=== PATIENT | male | born 1955 | race Caucasian/White ===

== ENCOUNTER 2020-07-11 00:20 | Emergency (ER) | payer MEDICARE, SELFPAY ==
--- NOTE | 2020-07-11 00:23 | PC.NURSE ---
65 year old male, smokes 2 bags of heroin. stopped interacting with . nodding off. gave 2 doses of narcan (8mg Total) IN. VSS.
[2020-07-11 00:25] VITALS: BP 115/60; PULSE 75; RESP 18; TEMP 36.4; O2SAT 98; BMI 22.9
--- NOTE | 2020-07-11 00:36 | PC.NURSE ---
PT GAVE PERMISSION TO SPEAK TO . PT RECENTLY USED HEROIN. HX CVA, HIT HEAD EARLIER IN DAY. PINS FOR PUPILS, PATIENT WOULDNOT RESPOND TO . MEDICAL HISTORY: CVAS/TIA 2 YEARS AGO. MANY STROKES IN PAST, BUT HE ALWAYS SNAP OUT OF IT. CONCERED THAT HE HIT HIS HEAD EARLIER. NO OTHER MEDICAL HISTORY. SURGERY: QUADRUPLE BYPASS. PER ; PLEASE DON'T LET HIM KNOW ABOUT THE HEROIN, PLEASE TELL HIM I SAID PAIN PILLS.
--- NOTE | 2020-07-11 01:48 | ED.OVERDOSE ---
HPI - Overdose General Chief Complaint: ETOH/Substance Use Stated Complaint: od Time Seen by Provider: 07/11/20 01:48 Source: patient Mode of arrival: EMS History of Present Illness HPI Narrative: This is a 65-year-old male who is brought in by EMS with overdoses and received 8 mg of Narcan intranasally. Patient states that he made a ?stupid stupid mistake?. He states that he snorted 2 bags of heroin and said that he must have gotten some bad stuff. Otherwise, he denies any shortness of breath, chest pain/palpitations, GI symptoms, or symptoms. Patient denies any intent to kill himself. Related Data Allergies Allergy/AdvReac Type Severity Reaction Status Date / Time No Known Allergies Allergy Unverified 01/27/20 14:51 Review of Systems Review of Systems: Pertinent positives and negatives as stated in HPI and 10 point review systems is otherwise negative. PMFSH Past Medical History Source: nursing notes reviewed Medical History Heroin use Social History Social History Alcohol intake: never Smoking Status: Current some day smoker Smoked in Last 30 Days: Yes Use of substances other than those prescribed or required for medical reasons: Yes Substance Use Type: Heroin Substance Use Frequency: Chronic Longstanding Last Used Substance: Just Prior to Admission Any prior treatment program specific to substance use: No Advance Directives: No Physical Exam Vital Signs: Vital Signs: Last Vital Signs Temp 97.5 F 07/11/20 00:25 Pulse 69 07/11/20 02:47 Resp 16 07/11/20 02:47 BP 102/61 07/11/20 02:47 Pulse Ox 95 07/11/20 02:47 Body Mass Index 22.9 VITAL SIGNS: Reviewed. GENERAL: Well developed, well nourished, in no acute distress. HEAD: Normocephalic/atraumatic EYES: PERRLA, EOMI NOSE: Nares patent bilateral OROPHARYNX: no oral lesions noted, posterior pharynx clear NECK: Supple, no adenopathy LUNGS: Normal breath sounds. SpO2<95> CARDIOVASCULAR: Regular rate and rhythm without noted murmurs ABDOMEN: Soft, non-tender, non-distended with bowel sounds.d NEUROLOGIC: Alert and oriented x 4. Strength and sensation to light touch were grossly intact x 4. Course Course Course Narrative: This is a 65-year-old male with history and clinical presentation consistent with accidental overdose. Patient was observed for 2 hours without acute changes and remained alert and oriented throughout. He was discharged in stable condition with a safe ride provided by his . Discharge Plan Discharge Clinical Impression: Overdose Qualifiers: Encounter type: initial encounter Injury intent: accidental or unintentional Qualified Code(s): T50.901A - Poisoning by unspecified drugs, medicaments and biological substances, accidental (unintentional), initial encounter Patient Disposition: Home, Self-Care Instructions: Naloxone (Into the nose) Additional Instructions: Please return to this emergency department if you experience any acute worsening of your symptoms. Referrals: Tony Rhodes MD [Primary Care Provider] - 2 days (Accidental overdose on heroin) Interventions: ED Discharge Assessment Last Done: 07/11/20 02:57 Discharge Date/Time: 07/11/20 02:58
[2020-07-11 02:00] VITALS: BP 105/71; PULSE 70; RESP 18; O2SAT 94
[2020-07-11 02:47] VITALS: BP 102/61; PULSE 69; RESP 16; O2SAT 95
[2020-07-11] MEDS: Naloxone HCl Nasal TAKE HOME 4 MG SPRAY NOSTRILALT (02:51)
== END 2020-07-11 02:58 | disposition home or self-care (01) ==
PROVIDERS: Emergency Provider Student in an Organized Health Care Education/Training Program; PCP Internal Medicine
DX: T40.1X1A Poisoning by heroin, accidental (unintentional), initial encounter (principal); Y92.9 Unspecified place or not applicable; F17.200 Nicotine dependence, unspecified, uncomplicated; Z86.73 Personal history of transient ischemic attack (TIA), and cerebral infarction without residual deficits
CPT/HCPCS: 99283; 99284

== ENCOUNTER 2020-11-10 17:51 | Emergency (ER) | payer MEDICARE, SELFPAY ==
[2020-11-10 18:00] VITALS: BP 114/63; PULSE 66; RESP 18; TEMP 36.6; O2SAT 96; BMI 25.0
--- NOTE | 2020-11-10 18:44 | ECG_ITS ---
Test Reason : WEAKNESS Blood Pressure : / mmHG Vent. Rate : 064 BPM Atrial Rate : 064 BPM P-R Int : 128 ms QRS Dur : 090 ms QT Int : 466 ms P-R-T Axes : 075 085 086 degrees QTc Int : 480 ms Normal sinus rhythm Possible Left atrial enlargement Anteroseptal infarct (cited on or before 13-JUN-2019) Anterior T wave inversion Abnormal ECG When compared with ECG of 13-JUN-2019 03:56, T wave inversion more evident in Anterior leads Referred By: Luther Kingston Electronically Signed By:LALIT GILLIAM MD
--- NOTE | 2020-11-10 19:21 | ED_ITS ---
HPI - Dizziness General Chief Complaint: Dizziness Stated Complaint: dizziness Time Seen by Provider: 11/10/20 18:43 Source: patient Mode of arrival: EMS Limitations: no limitations History of Present Illness HPI Narrative: patient's history of coronary artery disease status post cardiac bypass surgery 5 years ago , hypertension been feeling dizzy lightheaded for last few days went to fire station today and they checked the blood pressure was in 80s received 700 cc normal saline on arrival blood pressure was 114/63 patient denies any chest pain no shortness of breath just feel weak no palpitation no black stool no vomiting no diarrhea Related Data Allergies Allergy/AdvReac Type Severity Reaction Status Date / Time No Known Allergies Allergy Unverified 01/27/20 14:51 Review of Systems Review of Systems: Constitutional : No Weight loss, No Fever, No Chills ENT/Mouth : No sore throat, No Rhinorrhea Eyes: No Eye Pain, No Swelling Cardiovascular : No Chest Pain, no palpitations Respiratory : No Cough, No Sputum, no shortness of breath Gastrointestinal : no Nausea, No Vomiting, No Diarrhea, No abdominal Pain, no black stools Genitourinary : No Dysuria, No Urinary Frequency Musculoskeletal : No joint pain, No Myalgias, No Joint Swelling Skin : No Skin Lesions, No rash Neuro : No Weakness, No Numbness, ++ Dizziness, No Headache Psych : No Anxiety/Panic, No Depression Heme/Lymph: No Bruising, No Lymphadenopathy Endocrine : No Polyuria, No Polydipsia All other systems reviewed and are negative [facility] Past Medical History Medical History Heroin use Social History Social History Alcohol intake: never Smoked in Last 30 Days: No Use of substances other than those prescribed or required for medical reasons: No Substance Use Type: Heroin Advance Directives: No Advance Directives Information Provided: No Physical Exam Vital Signs: Vital Signs: Last Vital Signs Temp 97.8 F 11/10/20 18:00 Pulse 73 11/10/20 19:32 Resp 18 11/10/20 18:00 BP 132/58 L 11/10/20 19:32 Pulse Ox 96 11/10/20 18:00 Body Mass Index 25.0 Appearance: Alert. Oriented X3. No acute distress. Eyes: PERRLA, No Nystagmus ENT: Pharynx normal. Oral Mucosa moist Neck: Normal inspection. Neck supple. CVS: Normal heart rate and rhythm. Pulses normal. Respiratory: No respiratory distress. Equal air entry bilateral, no wheez ing/rales/rhonchi Abdomen: Soft and nontender. Bowel sounds are present, no mass palpable, no CVA tenderness Skin: Skin warm and dry. Normal skin color. Normal skin turgor. Extremities: No lower extremity edema. No calf tenderness Neuro: Oriented X 3. No motor deficit. No sensory deficit.No cerebellar signs , cranial nerves II-XII intact MDM - Dizziness MDM Narrative Medical decision making narrative: patient with low blood pressures prior to arrival normal now no orthostatic hypertension patient refused to stay here for further lab workup , EKG showed T inversion in anterior leads which is new as compared to EKG in 07/01 patient denied any chest pain, signed against medical advise family is at bedside ECG Data Attestation: I personally reviewed and interpreted this ECG as follows: Interpretation: normal sinus rhythm heart rate 64 beats per minute deep T inversion V1 to V3 V4 V5 suggestive of anterior septal is infarct no acute ST elevation Discharge Plan Discharge Clinical Impression: Dizziness Hypotension Qualifiers: Hypotension type: other hypotension type Qualified Code(s): I95.89 - Other hypotension Patient Disposition: Left Against Medical Advice Instructions: Dizziness (ED) Additional Instructions: see your PCP or come back to the ED for further evaluation Interventions: ED Discharge Assessment Last Done: 11/10/20 20:31 Discharge Date/Time: 11/10/20 20:36
[2020-11-10 19:24] VITALS: BP 124/64; PULSE 68
--- NOTE | 2020-11-10 19:30 | PC.NURSE ---
ASSUMED CARE OF PT. PT RESTING IN STRETCHER COMPLAINING ABOUT WAITING. PT DENIES DIZZY, CHEST PAIN, SOB, LEFT ARM NUMBNESS/TINGLING OR ANY OTHER COMPLAINTS OR PAIN. PT ALERT AND SPEAKING IN FULL COMPLETE SENTENCES AND YELLING AT STAFF W/O DIFFICULTY. PT UP AND PACING AROUND ROOM WITH STEADY EVEN GAIT AND ON PHONE SPEAKING LOUDLY WITH . DR MONIQUE AWARE AND IN ROOM TO TELL PT RISKS OF LEAVING AMA. PT VERBALLY U/S WARNINGS OF LEAVING AMA AND DECIDED TO STILL LEAVE.
[2020-11-10 19:31] VITALS: BP 140/65; PULSE 66
[2020-11-10 19:32] VITALS: BP 132/58; PULSE 73
--- NOTE | 2020-11-10 19:39 | PC.NURSE ---
pt requesting to leave and calling for a ride home. Ortho's obtained to . pt threatening to leave. Dr. Thee hood.
--- NOTE | 2020-11-10 19:49 | PC.NURSE ---
PT WANTING TO SIGN OUT AMA. DR. MONIQUE AWARE.
== END 2020-11-10 20:36 | disposition left against medical advice (07) ==
PROVIDERS: Emergency Provider Internal Medicine; PCP Internal Medicine
DX: I95.89 Other hypotension (principal); I10 Essential (primary) hypertension; I25.10 Atherosclerotic heart disease of native coronary artery without angina pectoris
CPT/HCPCS: 93005; 96360; 99284

== ENCOUNTER 2021-01-12 00:51 | Inpatient (IN) | payer MEDICARE, SELFPAY ==
[2021-01-12] VITALS (17 sets, daily range): BP systolic 93–186; BP diastolic 55–110; PULSE 64–156; RESP 15–24; TEMP 36.6–37.1; O2SAT 94–99; BMI 22.8; BMI 22.1
--- NOTE | ~2021-01-12 | XR_ITS ---
EXAMINATION: XR CHEST CLINICAL INFORMATION: Mental status change with leukocytosis rule out pneumonia COMPARISON: Chest x-ray 08/12/2018 TECHNIQUE: Frontal portable view of the chest was obtained. 1:47 AM FINDINGS: Status post median sternotomy. Heart size is normal. Cardiac and mediastinal contours are normal. There is mild to moderate diffuse increased interstitial lung markings new since prior chest x-ray. This may be due to interstitial edema versus inflammatory or infectious etiology. There is no pleural effusion. There is no pneumothorax. XR/XR chest 1V IMPRESSION: Diffuse increased interstitial lung markings new since prior chest x-ray. Interstitial pneumonia versus cardiogenic etiology, congestive heart failure.
--- NOTE | ~2021-01-12 | CT_ITS ---
EXAMINATION: CT HEAD WITHOUT CONTRAST CLINICAL INFORMATION: Unresponsive COMPARISON: CT head 06/13/2019 TECHNIQUE: Contiguous axial imaging was performed from the skull base to vertex without intravenous administration of contrast. Coronal and sagittal reformatted images are performed at CT scanner This CT examination was performed using dose optimization techniques as appropriate, variously including the following: *Automated exposure control *Adjustment of mA and/or kV according to patient size (this includes techniques or standardized protocols for targeted exams where dose is matched to indication/reason for exam; i.e. 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 Chronic lacunar infarcts involving the left putamen and right thalamus. There is no evidence of acute intracranial hemorrhage or acute territorial infarction. No abnormal mass effect or midline shift is seen. [place] to white matter differentiation is well preserved. No extra-axial fluid collections are identified. There is generalized global volume loss. There is mild prominence of the ventricles and the sulci . There is mild hypodensity of the periventricular white matter due to chronic small vessel ischemic disease. There are vascular calcifications of the internal carotid arteries bilaterally. Polypoid soft tissue density again noted in the ethmoid air cells. Mucosal thickening in the inferior maxillary sinuses bilateral. CT/CT head/brain wo con IMPRESSION: No acute intracranial pathology.
--- NOTE | 2021-01-12 01:02 | ECG_ITS ---
Test Reason : TACARDYA Blood Pressure : / mmHG Vent. Rate : 157 BPM Atrial Rate : 157 BPM P-R Int : 160 ms QRS Dur : 116 ms QT Int : 254 ms P-R-T Axes : 000 093 -53 degrees QTc Int : 410 ms Sinus tachycardia Rightward axis Cannot rule out Anteroseptal infarct (cited on or before 13-JUN-2019) Abnormal ECG When compared with ECG of 10-NOV-2020 18:10, Vent. rate has increased BY 93 BPM QRS duration has increased Questionable change in initial forces of Anterior leads T wave inversion now evident in Inferior leads T wave inversion no longer evident in Anterior leads Referred By: Sylwia Mohr Electronically Signed By:ANIRUDH YI
--- NOTE | 2021-01-12 01:10 | ED.AMS ---
HPI - Altered Mental Status General Chief Complaint: ETOH/Substance Use Stated Complaint: Overdose Time Seen by Provider: 01/12/21 01:02 Source: family () and EMS Mode of arrival: EMS Limitations: altered mental status History of Present Illness HPI narrative: 65-year-old male came in by ambulance for evaluation of heroin overdose. This is a 65-year-old male came in initially for evaluation of heroin overdose, patient responded to Narcan at home by EMS. History was obtained from over the phone who stated that patient was witnessed to have generalized seizure, then she call 911, patient in the emergency department is responsive to verbal stimuli, appear confused, with urinary incontinence, patient admitted to use heroin, there is smell of alcohol on the patient but declined patient using any alcohol. Limited history due to patient mental status change. Old chart was reviewed patient had previous hip visit for heroin overdose, as documented patient sporadically use heroin by snorting it. Related Data Home Medications Medication Instructions Recorded Confirmed apixaban 5 mg tablet (Eliquis) 5 mg PO BID 01/12/21 01/12/21 aspirin 81 mg tablet 81 mg PO DAILY 01/12/21 01/12/21 atorvastatin 40 mg tablet 40 mg PO BEDTIME 01/12/21 01/12/21 clonidine HCl 0.1 mg tablet 0.1 mg PO BID 01/12/21 01/12/21 lisinopril 5 mg tablet 1 tab PO DAILY 01/12/21 01/12/21 metoprolol tartrate 25 mg tablet 25 mg PO BID 01/12/21 01/12/21 nitroglycerin 0.4 mg sublingual 0.4 mg SUBLINGUAL NEEDED 01/12/21 01/12/21 tablet omeprazole 20 mg capsule,delayed 20 mg PO DAILY 01/12/21 01/12/21 release Allergies Allergy/AdvReac Type Severity Reaction Status Date / Time No Known Allergies Allergy Unverified 01/12/21 01:03 Review of Systems Review of Systems: Yes Unobtainable due to mental status PMFSH Past Medical History Medical History Heroin use Social History Social History Alcohol intake: never Substance Use Type: Heroin Advance Directives: No Physical Exam Vital Signs: Vital Signs: Last Vital Signs Pulse 82 01/12/21 03:55 Resp 20 01/12/21 03:55 BP 115/78 01/12/21 03:55 Pulse Ox 98 01/12/21 03:55 Body Mass Index 22.1 Vital signs have been reviewed as appeared to be correct. Blood pressure normal. Heart rate elevated. Respiration rate normal. Temperature normal. Oxygen saturation normal. Appearance: Lethargic but easily arousable.No acute distress. Head: Normal external exam. Normocephalic. Atraumatic. No Villagran signs noted. No raccoon eyes noted Eyes: PERRLA. EOMI. Conjunctiva and sclera normal. Eyelids normal. ENT: TM's Normal. Pharynx normal. Uvula midline. Moist mucous membranes. No trismus noted. No drooling noted. No muffled voice noted. Neck: Normal inspection. Neck supple. FROM. No adenopathy. Thyroid Normal. No meningeal signs. No neck mass noted. CVS: Normal heart rate and rhythm. Heart sound normal. No murmurs noted. Pulses normal throughout. Respiratory: No respiratory distress. Painless inspiration. Breath sounds normal. No wheezes/rales/rhonchi noted. Chest nontender. No accessory muscle usage noted or decreased air movement noted. Abdomen: Soft and nontender. Bowel sounds normal in all 4 quadrants. No distention noted. No organomegaly noted. No visible injury noted. Back: No CVA tenderness. Full range of motion noted. Skin: Skin warm and dry. Normal skin color. Normal skin turgor. No rashes/lesions/lacerations noted. Extremities: No lower extremity edema. Extremities exhibit normal range of motion. Extremities nontender. Neuro:Cranial nerve exam: II-XII are grossly intact No motor deficit. No sensory deficit. Reflexes normal. Course Course Course Narrative: Assessment and plan. 65 years old male came in for multiple medical problems. 1. New onset seizure witnessed by his at home, head CT is unremarkable, neuro exam and mental status has been improving in the emergency department. 2. Tachycardia/atrial flutter new onset: Patient initially came in with a rapid narrow complex tachycardia slowed down with Ativan which showed atrial flutter with variant AV block, unable to determine if there is chest pain, EKG showed no ischemic changes, troponin is elevated indicated for non STEMI. The case discussed with Dr. Cox who recommended to rate control/start on heparin. Patient has a borderline blood pressure unable to give beta-nina/calcium channel nina but able to control the rate with Ativan only. Another and cannot give the patient IV fluid because patient in mild congestive heart failure. No source of infection at this point. MDM - Altered Mental Status Medical Records Attestation: I reviewed the patient's medical records. Lab Data Attestation: I reviewed the patient's lab results. Result diagrams: 01/12/21 03:25 01/12/21 01:12 Labs: Lab Results 01/12/21 01/12/21 01/12/21 Range/Units 01:12 01:12 01:12 WBC 16.7 H (4.8-10.8) X10*3/uL RBC 4.57 L (4.60-5.80) X10*6/uL Hgb 14.9 (14.0-18.0) g/dl Hct 43.1 (42-52) % MCV 94.3 (80-98) fL MCH 32.6 (27.0-33.0) pg MCHC 34.6 (31.0-36.0) g/dl RDW 14.4 (11.0-16.0) % Plt Count 219 (160-400) X10*3/uL MPV 9.5 (9.4-12.4) fL Immature Gran % (Auto) 0.5 H (0.0-0.4) % Neut % (Auto) 64.5 (45-73) % Lymph % (Auto) 20.5 (20-40) % [place] % (Auto) 9.8 (2-11) % Eos % (Auto) 4.1 H (0-4) % Baso % (Auto) 0.6 (0-2) % Lymph # (Auto) 3.4 (1.2-4.9) X10*3/uL [place] # (Auto) 1.6 H (0.1-1.2) X10*3/uL Eos # (Auto) 0.7 H (0.0-0.4) X10*3/uL Baso # (Auto) 0.1 (0.0-0.2) X10*3/uL Abs Immat Gran (auto) 0.09 H (0.00-0.03) X10*3/uL Absolute Neuts (auto) 10.8 H (2.0-8.3) X10*3/uL Absolute Nucleated RBC 0.000 (0.0-0.012) X10*3/uL Nucleated RBC % (auto) 0.0 (0.0-0.2) /100WBC Smear Tech's Comments VERIFIED PT (9.9-13.0) SEC INR (0.9-1.1) APTT (24.1-38.0) SEC Sodium 136 (135-145) mmol/L Potassium 4.4 (3.3-5.1) mmol/L Chloride 103 (96-108) mmol/L Carbon Dioxide 18 L (22-29) mmol/L Anion Gap 19 (12-20) BUN 16 (9-16) mg/dL Creatinine 1.19 (0.5-1.4) mg/dL Estim Creat Clear Calc 58.7 Estimated GFR > 60 Random Glucose 109 (60-115) mg/dL Lactic Acid (0.5-2.0) mmol/L Calcium 9.2 (8.4-10.2) mg/dL Magnesium 2.7 H (1.6-2.6) mg/dL Total Bilirubin 0.3 (0.0-1.0) mg/dL Direct Bilirubin 0.2 (0.0-0.5) mg/dL AST 37 (5-37) U/L ALT 18 (0-40) U/L Alkaline Phosphatase 86 (39-117) U/L Troponin I High Sens (<3.5-35.0) ng/L B-Natriuretic Peptide (<100) pg/mL Total Protein 7.2 (6.5-8.0) g/dL Albumin 4.4 (3.5-5.0) g/dL Lipase 22 (8-78) U/L Urine Color Urine Appearance Urine pH (5.0-8.0) Ur Specific [place] (1.005-1.025) Urine Protein (NEG-TRACE) MG/DL Urine Glucose (UA) (NEG) MG/DL Urine Ketones (NEG) MG/DL Urine Blood (NEG) Urine Nitrite (NEG) Ur Leukocyte Esterase (NEG) Urine Opiates Screen (Not Detect) Urine Fentanyl Screen (Not Detect) Ur Barbiturates Screen (Not Detect) Ur Phencyclidine Scrn (Not Detect) Ur Amphetamines Screen (Not Detect) U Benzodiazepines Scrn (Not Detect) Urine Cocaine Screen (Not Detect) U Marijuana (THC) Screen (Not Detect) Ethyl Alcohol < 10 mg/dL COVID-19 (TIFFANIE) (Negative) COVID-19 Clin Com 01/12/21 01/12/21 01/12/21 Range/Units 01:12 01:39 01:39 WBC (4.8-10.8) X10*3/uL RBC (4.60-5.80) X10*6/uL Hgb (14.0-18.0) g/dl Hct (42-52) % MCV (80-98) fL MCH (27.0-33.0) pg MCHC (31.0-36.0) g/dl RDW (11.0-16.0) % Plt Count (160-400) X10*3/uL MPV (9.4-12.4) fL Immature Gran % (Auto) (0.0-0.4) % Neut % (Auto) (45-73) % Lymph % (Auto) (20-40) % [place] % (Auto) (2-11) % Eos % (Auto) (0-4) % Baso % (Auto) (0-2) % Lymph # (Auto) (1.2-4.9) X10*3/uL [place] # (Auto) (0.1-1.2) X10*3/uL Eos # (Auto) (0.0-0.4) X10*3/uL Baso # (Auto) (0.0-0.2) X10*3/uL Abs Immat Gran (auto) (0.00-0.03) X10*3/uL Absolute Neuts (auto) (2.0-8.3) X10*3/uL Absolute Nucleated RBC (0.0-0.012) X10*3/uL Nucleated RBC % (auto) (0.0-0.2) /100WBC Smear Tech's Comments PT (9.9-13.0) SEC INR (0.9-1.1) APTT (24.1-38.0) SEC Sodium (135-145) mmol/L Potassium (3.3-5.1) mmol/L Chloride (96-108) mmol/L Carbon Dioxide (22-29) mmol/L Anion Gap (12-20) BUN (9-16) mg/dL Creatinine (0.5-1.4) mg/dL Estim Creat Clear Calc Estimated GFR Random Glucose (60-115) mg/dL Lactic Acid (0.5-2.0) mmol/L Calcium (8.4-10.2) mg/dL Magnesium (1.6-2.6) mg/dL Total Bilirubin (0.0-1.0) mg/dL Direct Bilirubin (0.0-0.5) mg/dL AST (5-37) U/L ALT (0-40) U/L Alkaline Phosphatase (39-117) U/L Troponin I High Sens 2089.4 H* (<3.5-35.0) ng/L B-Natriuretic Peptide 946 H (<100) pg/mL Total Protein (6.5-8.0) g/dL Albumin (3.5-5.0) g/dL Lipase (8-78) U/L Urine Color YELLOW Urine Appearance CLEAR Urine pH 6.0 (5.0-8.0) Ur Specific [place] 1.015 (1.005-1.025) Urine Protein NEG (NEG-TRACE) MG/DL Urine Glucose (UA) 100 H (NEG) MG/DL Urine Ketones NEG (NEG) MG/DL Urine Blood NEG (NEG) Urine Nitrite NEG (NEG) Ur Leukocyte Esterase NEG (NEG) Urine Opiates Screen POSITIVE H (Not Detect) Urine Fentanyl Screen POSITIVE H (Not Detect) Ur Barbiturates Screen Not Detected (Not Detect) Ur Phencyclidine Scrn Not Detected (Not Detect) Ur Amphetamines Screen Not Detected (Not Detect) U Benzodiazepines Scrn Not Detected (Not Detect) Urine Cocaine Screen POSITIVE H (Not Detect) U Marijuana (THC) Screen Not Detected (Not Detect) Ethyl Alcohol mg/dL COVID-19 (TIFFANIE) (Negative) COVID-19 Clin Com 01/12/21 01/12/21 01/12/21 Range/Units 02:40 02:50 03:25 WBC 16.6 H (4.8-10.8) X10*3/uL RBC 3.89 L (4.60-5.80) X10*6/uL Hgb 12.4 L (14.0-18.0) g/dl Hct 36.3 L (42-52) % MCV 93.3 (80-98) fL MCH 31.9 (27.0-33.0) pg MCHC 34.2 (31.0-36.0) g/dl RDW 14.3 (11.0-16.0) % Plt Count 198 (160-400) X10*3/uL MPV 9.5 (9.4-12.4) fL Immature Gran % (Auto) (0.0-0.4) % Neut % (Auto) (45-73) % Lymph % (Auto) (20-40) % [place] % (Auto) (2-11) % Eos % (Auto) (0-4) % Baso % (Auto) (0-2) % Lymph # (Auto) (1.2-4.9) X10*3/uL [place] # (Auto) (0.1-1.2) X10*3/uL Eos # (Auto) (0.0-0.4) X10*3/uL Baso # (Auto) (0.0-0.2) X10*3/uL Abs Immat Gran (auto) (0.00-0.03) X10*3/uL Absolute Neuts (auto) (2.0-8.3) X10*3/uL Absolute Nucleated RBC 0.000 (0.0-0.012) X10*3/uL Nucleated RBC % (auto) 0.0 (0.0-0.2) /100WBC Smear Tech's Comments PT (9.9-13.0) SEC INR (0.9-1.1) APTT (24.1-38.0) SEC Sodium (135-145) mmol/L Potassium (3.3-5.1) mmol/L Chloride (96-108) mmol/L Carbon Dioxide (22-29) mmol/L Anion Gap (12-20) BUN (9-16) mg/dL Creatinine (0.5-1.4) mg/dL Estim Creat Clear Calc Estimated GFR Random Glucose (60-115) mg/dL Lactic Acid 4.0 H* (0.5-2.0) mmol/L Calcium (8.4-10.2) mg/dL Magnesium (1.6-2.6) mg/dL Total Bilirubin (0.0-1.0) mg/dL Direct Bilirubin (0.0-0.5) mg/dL AST (5-37) U/L ALT (0-40) U/L Alkaline Phosphatase (39-117) U/L Troponin I High Sens (<3.5-35.0) ng/L B-Natriuretic Peptide (<100) pg/mL Total Protein (6.5-8.0) g/dL Albumin (3.5-5.0) g/dL Lipase (8-78) U/L Urine Color Urine Appearance Urine pH (5.0-8.0) Ur Specific [place] (1.005-1.025) Urine Protein (NEG-TRACE) MG/DL Urine Glucose (UA) (NEG) MG/DL Urine Ketones (NEG) MG/DL Urine Blood (NEG) Urine Nitrite (NEG) Ur Leukocyte Esterase (NEG) Urine Opiates Screen (Not Detect) Urine Fentanyl Screen (Not Detect) Ur Barbiturates Screen (Not Detect) Ur Phencyclidine Scrn (Not Detect) Ur Amphetamines Screen (Not Detect) U Benzodiazepines Scrn (Not Detect) Urine Cocaine Screen (Not Detect) U Marijuana (THC) Screen (Not Detect) Ethyl Alcohol mg/dL COVID-19 (TIFFANIE) Negative (Negative) COVID-19 Clin Com See Note 01/12/21 01/12/21 Range/Units 03:25 03:25 WBC (4.8-10.8) X10*3/uL RBC (4.60-5.80) X10*6/uL Hgb (14.0-18.0) g/dl Hct (42-52) % MCV (80-98) fL MCH (27.0-33.0) pg MCHC (31.0-36.0) g/dl RDW (11.0-16.0) % Plt Count (160-400) X10*3/uL MPV (9.4-12.4) fL Immature Gran % (Auto) (0.0-0.4) % Neut % (Auto) (45-73) % Lymph % (Auto) (20-40) % [place] % (Auto) (2-11) % Eos % (Auto) (0-4) % Baso % (Auto) (0-2) % Lymph # (Auto) (1.2-4.9) X10*3/uL [place] # (Auto) (0.1-1.2) X10*3/uL Eos # (Auto) (0.0-0.4) X10*3/uL Baso # (Auto) (0.0-0.2) X10*3/uL Abs Immat Gran (auto) (0.00-0.03) X10*3/uL Absolute Neuts (auto) (2.0-8.3) X10*3/uL Absolute Nucleated RBC (0.0-0.012) X10*3/uL Nucleated RBC % (auto) (0.0-0.2) /100WBC Smear Tech's Comments PT 14.7 H (9.9-13.0) SEC INR 1.3 H (0.9-1.1) APTT 34.5 Cancelled (24.1-38.0) SEC Sodium (135-145) mmol/L Potassium (3.3-5.1) mmol/L Chloride (96-108) mmol/L Carbon Dioxide (22-29) mmol/L Anion Gap (12-20) BUN (9-16) mg/dL Creatinine (0.5-1.4) mg/dL Estim Creat Clear Calc Estimated GFR Random Glucose (60-115) mg/dL Lactic Acid (0.5-2.0) mmol/L Calcium (8.4-10.2) mg/dL Magnesium (1.6-2.6) mg/dL Total Bilirubin (0.0-1.0) mg/dL Direct Bilirubin (0.0-0.5) mg/dL AST (5-37) U/L ALT (0-40) U/L Alkaline Phosphatase (39-117) U/L Troponin I High Sens (<3.5-35.0) ng/L B-Natriuretic Peptide (<100) pg/mL Total Protein (6.5-8.0) g/dL Albumin (3.5-5.0) g/dL Lipase (8-78) U/L Urine Color Urine Appearance Urine pH (5.0-8.0) Ur Specific [place] (1.005-1.025) Urine Protein (NEG-TRACE) MG/DL Urine Glucose (UA) (NEG) MG/DL Urine Ketones (NEG) MG/DL Urine Blood (NEG) Urine Nitrite (NEG) Ur Leukocyte Esterase (NEG) Urine Opiates Screen (Not Detect) Urine Fentanyl Screen (Not Detect) Ur Barbiturates Screen (Not Detect) Ur Phencyclidine Scrn (Not Detect) Ur Amphetamines Screen (Not Detect) U Benzodiazepines Scrn (Not Detect) Urine Cocaine Screen (Not Detect) U Marijuana (THC) Screen (Not Detect) Ethyl Alcohol mg/dL COVID-19 (TIFFANIE) (Negative) COVID-19 Clin Com Imaging Data Chest x-ray: Radiologist's impression: Diffuse increased interstitial lung markings new since prior chest x-ray. Interstitial pneumonia versus cardiogenic etiology, congestive heart failure. CT scan - head: Radiologist's impression: No acute intracranial pathology. ECG Data ECG #1: Interpretation: Narrow complex tachycardia at 160, prolonged QRS. ECG #2: Interpretation: Atrial flutter at 86 beats per minutes, variable AV block, normal axis deviation, a change from old EKG of new atrial flutter. Discharge Plan Discharge Clinical Impression: Seizure, Substance abuse, Non-STEMI (non-ST elevated myocardial infarction) Patient Disposition: Admitted As Inpatient Prescriptions: No Action atorvastatin 40 mg tablet 40 mg PO BEDTIME RF: 0 clonidine HCl 0.1 mg tablet 0.1 mg PO BID RF: 0 nitroglycerin 0.4 mg tablet, sublingual 0.4 mg sublingual NEEDED RF: 0 omeprazole 20 mg capsule,delayed release(DR/EC) 20 mg PO DAILY RF: 0 metoprolol tartrate 25 mg tablet 25 mg PO BID RF: 0 Eliquis 5 mg tablet 5 mg PO BID RF: 0 aspirin 81 mg Tablet 81 mg PO DAILY RF: 0 lisinopril 5 mg tablet 1 tab PO DAILY RF: 0
[2021-01-12] MEDS: 0.9 % Sodium Chloride 1,000 ML 999 ML IVCONT ×2 (01:11→02:23)
[2021-01-12] MEDS: Magnesium Sulfate/H2O 2 GM/50 ML PIGGYBACK IV (01:14)
--- NOTE | 2021-01-12 01:21 | PC.NURSE ---
IV established, labs and Covid obtained and sent. photonics technician at bedside for EKG. IVF and Mag infusing per MAR. Pt changed out of wet clothes, incontinent of urine, provided with warm blankets. Per MD, plan to CT once pt is calmed down. CT aware.
[2021-01-12 01:26] LABS: Basophils Absolute Auto 0.1 X10*3/uL (0.0-0.2); Basophils Percent Auto 0.6 % (0-2); Eosinophils Absolute Auto 0.7 X10*3/uL (0.0-0.4); Eosinophils Percent Auto 4.1 % (0-4); Hematocrit 43.1 % (42-52); Hemoglobin 14.9 g/dl (14.0-18.0); Imm Gran Abs Auto 0.09 X10*3/uL (0.00-0.03); Imm Gran Pct Auto 0.5 % (0.0-0.4); Lymphocytes Absolute Auto 3.4 X10*3/uL (1.2-4.9); Lymphocytes Percent Auto 20.5 % (20-40); MANUAL DIFF FLAG SCAN; Mean Corpuscular HGB Conc 34.6 g/dl (31.0-36.0); Mean Corpuscular Hemoglobin 32.6 pg (27.0-33.0); Mean Corpuscular Volume 94.3 fL (80-98); Mean Platelet Volume 9.5 fL (9.4-12.4); Monocytes Absolute Auto 1.6 X10*3/uL (0.1-1.2); Monocytes Percent Auto 9.8 % (2-11); Neutrophils Absolute Auto 10.8 X10*3/uL (2.0-8.3); Neutrophils Percent Auto 64.5 % (45-73); Platelet Count 219 X10*3/uL (160-400); Red Blood Count 4.57 X10*6/uL (4.60-5.80); Red Cell Distribution Width 14.4 % (11.0-16.0); SCAN SMEAR FLAG 1; White Blood Count 16.7 X10*3/uL (4.8-10.8)
[2021-01-12 01:30] LABS: SLIDE REVIEW VERIFIED
[2021-01-12 01:39] LABS: Ethanol < 10 mg/dL
[2021-01-12] MEDS: LORazepam 2 MG/ML VIAL IVPUSH ×2 (01:39→02:23)
--- NOTE | 2021-01-12 01:41 | PC.NURSE ---
Pt medicated per JUL with Ativan due to HR 156 bpm. Pt using bedside urinal with assistance, UA obtained and sent. Pt resting in bed, continues refusing BP. Continue to monitor.
[2021-01-12 01:44] LABS: Alanine Aminotransferase 18 U/L (0-40); Albumin Level 4.4 g/dL (3.5-5.0); Alkaline Phosphatase 86 U/L (39-117); Anion Gap 19 (12-20); Aspartate Amino Transferase 37 U/L (5-37); Bilirubin Direct 0.2 mg/dL (0.0-0.5); Bilirubin Total 0.3 mg/dL (0.0-1.0); Blood Urea Nitrogen 16 mg/dL (9-16); Calcium 9.2 mg/dL (8.4-10.2); Carbon Dioxide 18 mmol/L (22-29); Chloride 103 mmol/L (96-108); Creatinine Clr Calc Pharmacy 58.7; Estimated Glomerular Filt Rate > 60; Glucose Random 109 mg/dL (60-115); Lipase 22 U/L (8-78); Magnesium 2.7 mg/dL (1.6-2.6); Potassium 4.4 mmol/L (3.3-5.1); Sodium 136 mmol/L (135-145); Total Protein 7.2 g/dL (6.5-8.0)
[2021-01-12 01:50] LABS: Glucose Urine UA 100 MG/DL (NEG); Leukocyte Esterase Urine NEG (NEG); Nitrite Urine NEG (NEG); Specific Gravity - Urine 1.015 (1.005-1.025); Urine Blood NEG (NEG); Urine Ketones NEG (NEG); Urine Protein NEG (NEG-TRACE)
[2021-01-12 01:51] LABS: Appearance Urine CLEAR; Color Urine YELLOW
--- NOTE | 2021-01-12 01:52 | PC.NURSE ---
Pt off to CT on hospital bed and cardiac surgeon. No relief of tachycardia noted after IV Ativan.
[2021-01-12 02:16] LABS: Amphetamine Screen Urine Not Detected (Not Detect); Barbiturates, Urine Not Detected (Not Detect); Benzodiazepines Screen Urine Not Detected (Not Detect); Cannabinoid Screen Urine Not Detected (Not Detect); Cocaine Screen Urine POSITIVE (Not Detect); Fentanyl, urine POSITIVE (Not Detect); Opiate Screen Urine POSITIVE (Not Detect); Phencyclidine Screen Urine Not Detected (Not Detect)
--- NOTE | 2021-01-12 02:24 | PC.NURSE ---
Upon return from CT, this RN observed tachycardia break into a Aflutter. MD notified. EKG obtained. Pt remains uncooperative and noncompliant with care. Medicated with Ativan per MAR. IVF infusing. VSS.
--- NOTE | 2021-01-12 02:32 | PC.NURSE ---
Pt having periods of tachycardia/SVT @ 155/158 bpm. After medication with Ativan, pt briefly slowing down to Aflutter but quickly returns to 150-160 bpm. This RN discussing plan of care with MD regarding possible Cardizem or Lopressor. MD hesitant due to BP.
--- NOTE | 2021-01-12 02:51 | PC.NURSE ---
BCX x 2 and lactic obtained and sent.
[2021-01-12 03:00] LABS: B Type Natriuretic Peptide 946 pg/mL (<100)
--- NOTE | 2021-01-12 03:01 | PC.NURSE ---
This RN updating on plan of care. going over Med Rec with this RN. Per , pt has a history of CHF with a quadruple bypass 10 years ago. Pts reports a CVA shortly after his bypass and reports a recent diagnosis of Dementia.
[2021-01-12 03:19] LABS: COVID-19 Test Negative (Negative); IDNOW Serial# 9DD0AD1C
--- NOTE | 2021-01-12 03:28 | PC.NURSE ---
Per MD, plan to hold Metoprolol infusion due to hypotension. Labs obtained and sent. This RN contacting pharmacy regarding Heparin drip as it is grayed out in the MAR, unable to document in.
--- NOTE | 2021-01-12 03:37 | PC.NURSE ---
Per Pharmacy, they are not sure what is wrong with the MAR. This RN advising Pharmacy that the Heparin remains grayed out and cannot be documented on. Per Pharmacy, their computer froze and to call back in an hour. home school teacher and MD aware.
[2021-01-12] MEDS: Heparin Sodium,Porcine 5,000 UNIT/ML VIAL 4000 UNIT IVPUSH (03:46)
[2021-01-12] MEDS: Heparin Sodium,Porcine/1/2NS 25,000 UNIT/250 ML IV.SOLN 7.92 UNIT IVCONT (03:47)
[2021-01-12 03:50] LABS: Hematocrit 36.3 % (42-52); Hemoglobin 12.4 g/dl (14.0-18.0); Mean Corpuscular HGB Conc 34.2 g/dl (31.0-36.0); Mean Corpuscular Hemoglobin 31.9 pg (27.0-33.0); Mean Corpuscular Volume 93.3 fL (80-98); Mean Platelet Volume 9.5 fL (9.4-12.4); Platelet Count 198 X10*3/uL (160-400); Red Blood Count 3.89 X10*6/uL (4.60-5.80); Red Cell Distribution Width 14.3 % (11.0-16.0); White Blood Count 16.6 X10*3/uL (4.8-10.8)
--- NOTE | 2021-01-12 03:54 | PC.NURSE ---
Pt refusing ASA, medicated with Heparin per JUL. VSS at this time. Plan for repeat Trop @ 9399.
--- NOTE | 2021-01-12 03:57 | PM.IMHP ---
History of Present Illness Date of Service: 01/12/21 Chief Complaint: Seizure 65-year-old male with a past medical history of hypertension, hyperlipidemia, coronary artery disease status post CABG, peripheral vascular disease a status post bypass, history of CVA, patient on Eliquis; substance abuse, tobacco dependence presented to the hospital with a chief complaint of seizure. Patient on presentation was agitated and received Ativan in the ER. When I tried to interview the patient patient was completely lethargic and sleepy secondary to the Ativan. Per RN patient on presentation was very uncooperative and agitated; noted to be in a flutter with rapid ventricular response; received Ativan and metoprolol; I spoke to the patient's over the phone Who mentioned that patient had been heroin couple hours prior to the episode. He was sitting in the chair and suddenly he fell down and had tonic clonic seizure with possible tongue bite and urinary incontinence. Denies any prior episodes of seizures as per the . Still smokes cigarettes. EMS was called who has given the patient Narcan with improvement in mental status; subsequently brought to the ER for further evaluation. As per the patient's patient has been compliant with his home medications. ER course: Per ER team patient was initially alert awake, uncooperative and agitated. Received Ativan. EKG showed a flutter with rapid ventricular response; received metoprolol IV. Heart rate subsequently improved but patient noted to be in a flutter. All labs noted to have elevated troponin-ER doctor discussed with Dr. Talley from Cardiology who recommended to start the patient on heparin drip and admitted to the [facility], did not recommend transfer at this time. [facility] Medical History Heroin use Social History Alcohol intake: never Substance Use Type: Heroin Advance Directives: No Meds Allergies Allergy/AdvReac Type Severity Reaction Status Date / Time No Known Allergies Allergy Unverified 01/12/21 01:03 Active Medications: Current Medications Generic Name Dose Route Start Last Admin Trade Name Freq PRN Reason Stop Dose Admin Acetaminophen 650 mg 01/12/21 03:45 Acetaminophen 325 Mg Tablet PO Q6H PRN Pain, Mild (Pain Scale 1-3) Atorvastatin Calcium 40 mg 01/12/21 21:00 Atorvastatin Calcium 40 Mg Tablet PO BEDTIME CARLIE Clonidine HCl 0.1 mg 01/12/21 09:00 Clonidine Hcl 0.1 Mg Tablet PO BID CARLIE Protocol Heparin Sodium (Porcine) 5,300 unit 01/12/21 03:34 Heparin Sodium,Porcine 5,000 Unit/Ml Vial IVPUSH PROTOCOL BOLUS PRN 80 unit/kg - Heparin Protocol Protocol Heparin Sodium (Porcine) 2,650 unit 01/12/21 03:34 Heparin Sodium,Porcine 5,000 Unit/Ml Vial IVPUSH PROTOCOL BOLUS PRN 40 unit/kg - Heparin Protocol Protocol Heparin Sodium (Porcine) 2,600 unit 01/12/21 03:45 Heparin Sodium,Porcine 5,000 Unit/Ml Vial 40 unit/kg (2600 unit) IVPUSH PROTOCOL BOLUS PRN 40 unit/kg - Heparin Protocol Protocol Heparin Sodium (Porcine) 5,300 unit 01/12/21 03:45 Heparin Sodium,Porcine 5,000 Unit/Ml Vial 80 unit/kg (5300 unit) IVPUSH PROTOCOL BOLUS PRN 80 unit/kg - Heparin Protocol Protocol Heparin Sodium/Sodium Chloride 25,000 unit in 250 mls @ 0 mls/hr 01/12/21 03:30 01/12/21 03:47 IVCONT 12 units/kg/hr .Q0M CARLIE 7.92 mls/hr Administration Protocol Per Protocol Dextrose/Sodium Chloride 1,000 mls @ 50 mls/hr 01/12/21 03:45 D51/2ns IVCONT .Q20H CARLIE Heparin Sodium/Sodium Chloride 25,000 unit in 250 mls @ 0 mls/hr 01/12/21 03:45 IVCONT .Q0M CARLIE Protocol Per Protocol Lorazepam 1 mg 01/12/21 03:54 Lorazepam 2 Mg/Ml Vial IVPUSH Q2H PRN Seizures Melatonin 6 mg 01/12/21 03:45 Melatonin 3 Mg Tablet PO BEDTIME PRN Insomnia Metoprolol Tartrate 25 mg 01/12/21 09:00 Metoprolol Tartrate 25 Mg Tablet PO BID [facility] Protocol Nitroglycerin 0.4 mg 01/12/21 04:00 Nitroglycerin 0.4 Mg Tab.Subl SUBLINGUAL NEEDED [facility] Non-Formulary Medication 81 mg 01/12/21 09:00 Aspirin PO DAILY [facility] Omeprazole 20 mg 01/12/21 09:00 Omeprazole 20 Mg Capsule. PO DAILY [facility] Senna 17.2 mg 01/12/21 03:45 Sennosides 8.6 Mg Tablet PO BEDTIME PRN Constipation Sodium Chloride 3 ml 01/12/21 08:00 0.9 % Sodium Chloride Flush 3 M[facility] Medications Medication Instructions Recorded Confirmed Last Taken Type apixaban 5 mg tablet (Eliquis) 5 mg PO BID 01/12/21 01/12/21 01/11/21 19:00 History aspirin 81 mg tablet 81 mg PO DAILY 01/12/21 01/12/21 01/11/21 08:00 History atorvastatin 40 mg tablet 40 mg PO BEDTIME 01/12/21 01/12/21 01/11/21 19:00 History clonidine HCl 0.1 mg tablet 0.1 mg PO BID 01/12/21 01/12/21 Unknown History lisinopril 5 mg tablet 1 tab PO DAILY 01/12/21 01/12/21 Unknown History metoprolol tartrate 25 mg tablet 25 mg PO BID 01/12/21 01/12/21 01/11/21 19:00 History nitroglycerin 0.4 mg sublingual 0.4 mg SUBLINGUAL NEEDED 01/12/21 01/12/21 01/08/21 History tablet omeprazole 20 mg capsule,delayed 20 mg PO DAILY 01/12/21 01/12/21 01/11/21 08:00 History release Physical Exam Vital Signs and Narrative: Vital Signs: Last Vital Signs Pulse 82 01/12/21 03:55 Resp 20 01/12/21 03:55 BP 115/78 01/12/21 03:55 Pulse Ox 98 01/12/21 03:55 Body Mass Index 22.1 Gen: Appears be in no acute distress HEENT: NCAT, Moist mucosa. Pulmonary: Course breath sounds, fair air entry CVS: Normal S1-S2 Abdomen: BS+, Soft, Nontender Extremities: Warm well perfused Neuro: Drowsy and lethargic; Results Labs CBC and Chem 7: 01/12/21 03:25 01/12/21 01:12 Labs: Laboratory Results - last 24 hr 01/12/21 01/12/21 01/12/21 01:12 01:12 01:12 MCV 94.3 MCH 32.6 MCHC 34.6 RDW 14.4 Plt Count 219 MPV 9.5 Immature Gran % (Auto) 0.5 H Neut % (Auto) 64.5 Lymph % (Auto) 20.5 [place] % (Auto) 9.8 Eos % (Auto) 4.1 H Baso % (Auto) 0.6 Lymph # (Auto) 3.4 [place] # (Auto) 1.6 H Eos # (Auto) 0.7 H Baso # (Auto) 0.1 Abs Immat Gran (auto) 0.09 H Absolute Neuts (auto) 10.8 H Absolute Nucleated RBC 0.000 Nucleated RBC % (auto) 0.0 Smear Tech's Comments VERIFIED APTT Anion Gap 19 Estim Creat Clear Calc 58.7 Estimated GFR > 60 Random Glucose 109 Lactic Acid Calcium 9.2 Magnesium 2.7 H Total Bilirubin 0.3 Direct Bilirubin 0.2 AST 37 ALT 18 Alkaline Phosphatase 86 Troponin I High Sens B-Natriuretic Peptide Total Protein 7.2 Albumin 4.4 Lipase 22 Urine Color Urine Appearance Urine pH Ur Specific [place] Urine Protein Urine Glucose (UA) Urine Ketones Urine Blood Urine Nitrite Ur Leukocyte Esterase Urine Opiates Screen Urine Fentanyl Screen Ur Barbiturates Screen Ur Phencyclidine Scrn Ur Amphetamines Screen U Benzodiazepines Scrn Urine Cocaine Screen U Marijuana (THC) Screen Ethyl Alcohol < 10 COVID-19 (TIFFANIE) COVID-19 Clin Com 01/12/21 01/12/21 01/12/21 01:12 01:39 01:39 MCV MCH MCHC RDW Plt Count MPV Immature Gran % (Auto) Neut % (Auto) Lymph % (Auto) [place] % (Auto) Eos % (Auto) Baso % (Auto) Lymph # (Auto) [place] # (Auto) Eos # (Auto) Baso # (Auto) Abs Immat Gran (auto) Absolute Neuts (auto) Absolute Nucleated RBC Nucleated RBC % (auto) Smear Tech's Comments APTT Anion Gap Estim Creat Clear Calc Estimated GFR Random Glucose Lactic Acid Calcium Magnesium Total Bilirubin Direct Bilirubin AST ALT Alkaline Phosphatase Troponin I High Sens 2089.4 H* B-Natriuretic Peptide 946 H Total Protein Albumin Lipase Urine Color YELLOW Urine Appearance CLEAR Urine pH 6.0 Ur Specific [place] 1.015 Urine Protein NEG Urine Glucose (UA) 100 H Urine Ketones NEG Urine Blood NEG Urine Nitrite NEG Ur Leukocyte Esterase NEG Urine Opiates Screen POSITIVE H Urine Fentanyl Screen POSITIVE H Ur Barbiturates Screen Not Detected Ur Phencyclidine Scrn Not Detected Ur Amphetamines Screen Not Detected U Benzodiazepines Scrn Not Detected Urine Cocaine Screen POSITIVE H U Marijuana (THC) Screen Not Detected Ethyl Alcohol COVID-19 (TIFFANIE) COVID-19 Clin Com 01/12/21 01/12/21 01/12/21 02:40 02:50 03:25 MCV 93.3 MCH 31.9 MCHC 34.2 RDW 14.3 Plt Count 198 MPV 9.5 Immature Gran % (Auto) Neut % (Auto) Lymph % (Auto) [place] % (Auto) Eos % (Auto) Baso % (Auto) Lymph # (Auto) [place] # (Auto) Eos # (Auto) Baso # (Auto) Abs Immat Gran (auto) Absolute Neuts (auto) Absolute Nucleated RBC 0.000 Nucleated RBC % (auto) 0.0 Smear Tech's Comments APTT Anion Gap Estim Creat Clear Calc Estimated GFR Random Glucose Lactic Acid 4.0 H* Calcium Magnesium Total Bilirubin Direct Bilirubin AST ALT Alkaline Phosphatase Troponin I High Sens B-Natriuretic Peptide Total Protein Albumin Lipase Urine Color Urine Appearance Urine pH Ur Specific [place] Urine Protein Urine Glucose (UA) Urine Ketones Urine Blood Urine Nitrite Ur Leukocyte Esterase Urine Opiates Screen Urine Fentanyl Screen Ur Barbiturates Screen Ur Phencyclidine Scrn Ur Amphetamines Screen U Benzodiazepines Scrn Urine Cocaine Screen U Marijuana (THC) Screen Ethyl Alcohol COVID-19 (TIFFANIE) Negative COVID-19 Clin Com See Note 01/12/21 03:25 MCV MCH MCHC RDW Plt Count MPV Immature Gran % (Auto) Neut % (Auto) Lymph % (Auto) [place] % (Auto) Eos % (Auto) Baso % (Auto) Lymph # (Auto) [place] # (Auto) Eos # (Auto) Baso # (Auto) Abs Immat Gran (auto) Absolute Neuts (auto) Absolute Nucleated RBC Nucleated RBC % (auto) Smear Tech's Comments APTT Cancelled Anion Gap Estim Creat Clear Calc Estimated GFR Random Glucose Lactic Acid Calcium Magnesium Total Bilirubin Direct Bilirubin AST ALT Alkaline Phosphatase Troponin I High Sens B-Natriuretic Peptide Total Protein Albumin Lipase Urine Color Urine Appearance Urine pH Ur Specific [place] Urine Protein Urine Glucose (UA) Urine Ketones Urine Blood Urine Nitrite Ur Leukocyte Esterase Urine Opiates Screen Urine Fentanyl Screen Ur Barbiturates Screen Ur Phencyclidine Scrn Ur Amphetamines Screen U Benzodiazepines Scrn Urine Cocaine Screen U Marijuana (THC) Screen Ethyl Alcohol COVID-19 (TIFFANIE) COVID-19 Clin Com Imaging Radiologist's Impressions: Impressions Head CT 01/12/21 01:07 IMPRESSION: No acute intracranial pathology. Chest X-Ray 01/12/21 01:47 IMPRESSION: Diffuse increased interstitial lung markings new since prior chest x-ray. Interstitial pneumonia versus cardiogenic etiology, congestive heart failure. Assessment and Plan (1) Seizure: Status: Acute 65-year-old male with a past medical history of hypertension, hyperlipidemia, coronary artery disease status post CABG, peripheral vascular disease status post bypass, on Eliquis; substance abuse, early dementia/forgetfulness, tobacco dependence presented to the hospital with a chief complaint of seizure episode. Seizure episode: Reportedly tonic-clonic in nature; patient received Ativan in the ER. Seizure precautions, aspiration precautions. NPO. Gentle IV fluids. Ativan p.r.n. for seizure. CT head showed no acute intracranial process. Neurology consult. Elevated troponin: Patient was sleeping at the time of my assessment. Per ER staff patient did not complain of any chest pain. EKG showed a flutter. Noted to be in rapid ventricular response on presentation. Question demand versus NSTEMI. Cardiology was notified who recommended admission to the [facility] to start the patient on heparin drip. Telemetry Cycle cardiac enzymes Echocardiogram History of CAD status post CABG/peripheral vascular disease status post bypass surgery/CVA: Continue home aspirin statin, beta-nina, Plavix Heroin overdose: Patient noted to have mildly constricted pupils. Received Narcan by the EMS. Addiction Medicine consult. Code status: Full code. Discussed with the patient's . Quality Stroke Does the patient have a stroke diagnosis?: No VTE Prior VTE?: No VTE Risk Level:: Medical - moderate - high VTE Device Contraindication: Treatment Not Indicated VTE Drug Contraindication: N/A - Med Ordered
[2021-01-12 04:05] LABS: INTERNATIONAL NORM RATIO 1.3 (0.9-1.1); Prothrombin Time 14.7 SEC (9.9-13.0)
[2021-01-12 04:07] LABS: Partial Thromboplastin Time 34.5 SEC (24.1-38.0)
--- NOTE | 2021-01-12 04:35 | PC.NURSE ---
Hospitalist at bedside for primary eval.
[2021-01-12 04:54] LABS: Reflex Lactate? Lactic Acid Added
[2021-01-12] MEDS: Dextrose 5 % and 0.45 % NaCl 1,000 ML 50 ML IVCONT ×2 (04:54→22:42)
--- NOTE | 2021-01-12 05:41 | PC.NURSE ---
Pt remains asleep at this time. Morning labs obtained and sent. VSS. Awaiting bed assignment.
[2021-01-12 05:51] LABS: Basophils Absolute Auto 0.1 X10*3/uL (0.0-0.2); Basophils Percent Auto 0.5 % (0-2); Eosinophils Absolute Auto 0.4 X10*3/uL (0.0-0.4); Eosinophils Percent Auto 2.4 % (0-4); Hematocrit 37.5 % (42-52); Hemoglobin 12.9 g/dl (14.0-18.0); Imm Gran Abs Auto 0.08 X10*3/uL (0.00-0.03); Imm Gran Pct Auto 0.5 % (0.0-0.4); Lymphocytes Absolute Auto 3.8 X10*3/uL (1.2-4.9); Lymphocytes Percent Auto 22.8 % (20-40); MANUAL DIFF FLAG SCAN; Mean Corpuscular HGB Conc 34.4 g/dl (31.0-36.0); Mean Corpuscular Hemoglobin 31.9 pg (27.0-33.0); Mean Corpuscular Volume 92.8 fL (80-98); Mean Platelet Volume 9.6 fL (9.4-12.4); Monocytes Absolute Auto 1.7 X10*3/uL (0.1-1.2); Monocytes Percent Auto 10.4 % (2-11); Neutrophils Absolute Auto 10.6 X10*3/uL (2.0-8.3); Neutrophils Percent Auto 63.4 % (45-73); Platelet Count 193 X10*3/uL (160-400); Red Blood Count 4.04 X10*6/uL (4.60-5.80); Red Cell Distribution Width 14.1 % (11.0-16.0); SCAN SMEAR FLAG 1; White Blood Count 16.7 X10*3/uL (4.8-10.8)
[2021-01-12 06:40] LABS: Anion Gap 13 (12-20); Blood Urea Nitrogen 14 mg/dL (9-16); Calcium 8.2 mg/dL (8.4-10.2); Carbon Dioxide 19 mmol/L (22-29); Chloride 109 mmol/L (96-108); Creatinine Clr Calc Pharmacy 69.9; Estimated Glomerular Filt Rate > 60; Glucose Random 106 mg/dL (60-115); Potassium 4.4 mmol/L (3.3-5.1); Sodium 137 mmol/L (135-145)
[2021-01-12 06:49] LABS: Magnesium 2.7 mg/dL (1.6-2.6)
--- NOTE | 2021-01-12 07:59 | ECG_ITS ---
Test Reason : REPEAT Blood Pressure : / mmHG Vent. Rate : 086 BPM Atrial Rate : 315 BPM P-R Int : 000 ms QRS Dur : 094 ms QT Int : 398 ms P-R-T Axes : 265 076 089 degrees QTc Int : 476 ms Atrial flutter with variable A-V block Cannot rule out Anteroseptal infarct (cited on or before 13-JUN-2019) Abnormal ECG When compared with ECG of 12-JAN-2021 01:18, Atrial flutter has replaced Sinus tachycardia Vent. rate has decreased BY 71 BPM Nonspecific T wave abnormality, worse in Lateral leads Referred By: Sylwia Mohr Electronically Signed By:ANIRUDH YI
[2021-01-12] MEDS: Omeprazole 20 MG CAPSULE.DR PO (09:09)
[2021-01-12] MEDS: cloNIDine HCL 0.1 MG TABLET PO ×2 (09:09→21:10)
[2021-01-12] MEDS: Aspirin Enteric Coated 81 MG TABLET.DR PO (09:09)
--- NOTE | 2021-01-12 09:20 | PC.NURSE ---
Pt alert to self only. b/p running high 110s, HR high 80s - mid 90s. Pt arousable but falls asleep easily. Follows commands when directed to. Heparin infusing, pt tolerating well. Denies pain. Pt told by this bid writer that his and brother called to check on him and he responded ok . Pt requested to use restroom, however he was already incontinent of urine. Incontinent care done. Pt resting quietly, no apparent distress noted.
[2021-01-12 10:09] LABS: PTT Heparin Drip 133.3 SEC (53-77.9)
--- NOTE | 2021-01-12 10:36 | PC.NURSE ---
Pt's PTT 133.3, Heparin infusion held at 10:15 and redraw due in one hour which will be at 11:15 per protocol. Pt currently sleeping, no apparent distress noted, vss. MAXIM Lafleur was notified by this conventional mortgage underwriter.
--- NOTE | 2021-01-12 10:57 | PC.NURSE ---
Dr. Black at bedside, vs remains stable. pt follows commands appropriately, will continue to monitor.
--- NOTE | 2021-01-12 11:24 | P.CNNE_ITS ---
History of Present Illness Data of Consult Service Date: 01/12/21 Primary Care Provider: Unknown Physician HPI Reason for consult: Seizure 65 years old man with underlying history of coronary artery disease was brought to hospital after generalized convulsion. Apparently he was using heroin or some kind of drug abuse on regular basis. He told me that he took it couple of days prior to admission but according to initial notes he might have taken a little while before he had convulsion. In any case there was no mention of seizure disorder in his previous medical history. Initially he was given lorazepam because of agitation emergency room and was lethargic but now he was alert and awake and able to talk. Review of Systems Review of Systems: Active drug abuse PMFSH Past Medical History Medical History Heroin use Social History Social History Alcohol intake: never Use of substances other than those prescribed or required for medical reasons: Unable to respond Substance Use Type: Heroin Advance Directives: Yes Advance Directives on File: Yes Advance Directives Date on File: 01/12/21 Meds Allergies Allergy/AdvReac Type Severity Reaction Status Date / Time No Known Allergies Allergy Unverified 01/12/21 01:03 Active Medications: Current Medications Generic Name Dose Route Start Last Admin Trade Name Tayeq PRN Reason Stop Dose Admin Acetaminophen 650 mg 01/12/21 03:45 Acetaminophen 325 Mg Tablet PO Q6H PRN Pain, Mild (Pain Scale 1-3) Aspirin 81 mg 01/12/21 09:00 01/12/21 09:09 Aspirin Enteric Coated 81 Mg Tablet. PO 81 mg DAILY CARLIE Administration Atorvastatin Calcium 40 mg 01/12/21 21:00 Atorvastatin Calcium 40 Mg Tablet PO BEDTIME CARLIE Clonidine HCl 0.1 mg 01/12/21 09:00 01/12/21 09:09 Clonidine Hcl 0.1 Mg Tablet PO 0.1 mg BID CARLIE Administration Protocol Heparin Sodium (Porcine) 5,300 unit 01/12/21 03:34 Heparin Sodium,Porcine 5,000 Unit/Ml Vial IVPUSH PROTOCOL BOLUS PRN 80 unit/kg - Heparin Protocol Protocol Heparin Sodium (Porcine) 2,650 unit 01/12/21 03:34 Heparin Sodium,Porcine 5,000 Unit/Ml Vial IVPUSH PROTOCOL BOLUS PRN 40 unit/kg - Heparin Protocol Protocol Heparin Sodium (Porcine) 2,600 unit 01/12/21 03:45 Heparin Sodium,Porcine 5,000 Unit/Ml Vial 40 unit/kg (2600 unit) IVPUSH PROTOCOL BOLUS PRN 40 unit/kg - Heparin Protocol Protocol Heparin Sodium (Porcine) 5,300 unit 01/12/21 03:45 Heparin Sodium,Porcine 5,000 Unit/Ml Vial 80 unit/kg (5300 unit) IVPUSH PROTOCOL BOLUS PRN 80 unit/kg - Heparin Protocol Protocol Heparin Sodium/Sodium Chloride 25,000 unit in 250 mls @ 0 mls/hr 01/12/21 03:30 01/12/21 10:12 IVCONT 12 units/kg/hr .Q0M CARLIE 7.92 mls/hr Titration Protocol Per Protocol Dextrose/Sodium Chloride 1,000 mls @ 50 mls/hr 01/12/21 03:45 01/12/21 04:54 D51/2ns IVCONT 50 mls/hr .Q20H CARLIE Administration Heparin Sodium/Sodium Chloride 25,000 unit in 250 mls @ 0 mls/hr 01/12/21 03:45 IVCONT .Q0M CARLIE Protocol Per Protocol Lorazepam 1 mg 01/12/21 03:54 Lorazepam 2 Mg/Ml Vial IVPUSH Q2H PRN Seizures Melatonin 6 mg 01/12/21 03:45 Melatonin 3 Mg Tablet PO BEDTIME PRN Insomnia Nitroglycerin 0.4 mg 01/12/21 04:00 Nitroglycerin 0.4 Mg Tab.Subl SUBLINGUAL Q5M PRN CHEST PAIN Omeprazole 20 mg 01/12/21 09:00 01/12/21 09:09 Omeprazole 20 Mg Capsule.Dr PO 20 mg DAILY CARLIE Administration Senna 17.2 mg 01/12/21 03:45 Sennosides 8.6 Mg Tablet PO BEDTIME PRN Constipation Sodium Chloride 3 ml 01/12/21 08:00 01/12/21 09:10 0.9 % Sodium Chloride Flush 3 Ml Syringe IVFLUSH Not Given QSHIFT COUNT INCLUDES THE [facility] Home Medications Medication Instructions Recorded Confirmed Last Taken Type apixaban 5 mg tablet (Eliquis) 5 mg PO BID 01/12/21 01/12/21 01/11/21 19:00 History aspirin 81 mg tablet 81 mg PO DAILY 01/12/21 01/12/21 01/11/21 08:00 History atorvastatin 40 mg tablet 40 mg PO BEDTIME 01/12/21 01/12/21 01/11/21 19:00 History clonidine HCl 0.1 mg tablet 0.1 mg PO BID 01/12/21 01/12/21 Unknown History lisinopril 5 mg tablet 1 tab PO DAILY 01/12/21 01/12/21 Unknown History metoprolol tartrate 25 mg tablet 25 mg PO BID 01/12/21 01/12/21 01/11/21 19:00 History nitroglycerin 0.4 mg sublingual 0.4 mg SUBLINGUAL NEEDED 01/12/21 01/12/21 01/08/21 History tablet omeprazole 20 mg capsule,delayed 20 mg PO DAILY 01/12/21 01/12/21 01/11/21 08:00 History release Physical Exam Vital Signs: Vital Signs: Last Vital Signs Temp 98.4 F 01/12/21 07:20 Pulse 88 01/12/21 09:09 Resp 17 01/12/21 07:20 BP 117/77 01/12/21 09:09 Pulse Ox 96 01/12/21 07:20 Body Mass Index 22.1 Neuro: Other: He was alert and awake with normal spontaneity of speech fluency comprehension and wake affect. Pupils were round reactive to light. Extraocul ar muscles were intact. Visual hunt are full to threat. Face was symmetrical. There was mild tremor in outstretched hands. Deep tendon reflexes were trace to absent with flexor plantars. Results Labs CBC & Chem 7: 01/12/21 05:41 01/12/21 05:41 Labs: Short CBC 01/12/21 01/12/21 01/12/21 Range/Units 01:12 03:25 05:41 WBC 16.7 H 16.6 H 16.7 H (4.8-10.8) X10*3/uL Hgb 14.9 12.4 L 12.9 L (14.0-18.0) g/dl Hct 43.1 36.3 L 37.5 L (42-52) % Plt Count 219 198 193 (160-400) X10*3/uL BMP 01/12/21 01/12/21 01:12 05:41 Sodium 136 137 Potassium 4.4 4.4 Chloride 103 109 H Carbon Dioxide 18 L 19 L BUN 16 14 Creatinine 1.19 0.97 Calcium 9.2 8.2 L D Cardiac Enzymes 01/12/21 Range/Units 05:41 Total Creatine Kinase 208 H (38-174) U/L Liver Function 01/12/21 Range/Units 01:12 Total Bilirubin 0.3 (0.0-1.0) mg/dL Direct Bilirubin 0.2 (0.0-0.5) mg/dL AST 37 (5-37) U/L ALT 18 (0-40) U/L Alkaline Phosphatase 86 (39-117) U/L Albumin 4.4 (3.5-5.0) g/dL Urine 01/12/21 Range/Units 01:39 Urine Color YELLOW Urine Appearance CLEAR Urine pH 6.0 (5.0-8.0) Ur Specific [place] 1.015 (1.005-1.025) Urine Protein NEG (NEG-TRACE) MG/DL Urine Glucose (UA) 100 H (NEG) MG/DL Noncontrast head CT revealed a chronic moderate size left parietal occipital we dge-shaped ischemic infarction. Assessment and Plan (1) Seizure: Status: Acute 65 years old man with underlying history of coronary artery disease who was also actively using drug abuse. He stated that he was taking heroin but his tox screen was also positive for cocaine. He was brought to hospital after a generalized convulsion. He was also noted to be in atrial flutter. Now he was more alert and awake and able to talk with relatively nonfocal examination. His head CT revealed a chronic left embolic looking ischemic infarction. On 1 hand his risk of seizure or convulsion was high due to drug abuse and 0 on the other due to ischemic infarction he had. He should be strongly advised to not use any drug of abuse because of his complex medical situations. If any further seizure should occur without any involvement of drug abuse, I would recommend starting him on levetiracetam 500 mg twice a day. He should not drive and not be involved in an activity that could put his life in danger. Procedures Date of Service Date of Service: 01/12/21
--- NOTE | 2021-01-12 13:24 | HO.PM.IMPN ---
Subjective Subjective Date of Service: 01/12/21 Interval History: Seen and examined this morning New admission overnight for NSTEMI, seizure, drug overdose, atrial flutter On my evaluation patient is lethargic, able to follow commands, but not able to give much history Review of Systems Review of Systems: Yes Unobtainable due to mental condition and Unobtainable due to mental status Physical Exam Vital Signs: Vital Signs: Last Vital Signs Temp 98.4 F 01/12/21 07:20 Pulse 88 01/12/21 09:09 Resp 17 01/12/21 07:20 BP 117/77 01/12/21 09:09 Pulse Ox 96 01/12/21 07:20 Body Mass Index 22.1 Const: Other: lethargic, appears comfortable, following commands Nutritional Appearance: well nourished HENMT: Head: Yes normocephalic and Yes atraumatic Eyes: Sclerae: sclerae normal Pupils: Equal, round and reactive pupils present Resp: Effort & Inspection: normal respiratory effort and no respiratory distress Cardio: Rate: regular rate Rhythm: regular rhythm GI: Palpation (GI): Soft to palpation and nontender Neuro: Cranial nerves: Yes Equal, round and reactive pupils present Objective Data Active Medications Acetaminophen (Acetaminophen 325 Mg Tablet) 650 mg PO Q6H PRN PRN Reason: Pain, Mild (Pain Scale 1-3) Aspirin (Aspirin Enteric Coated 81 Mg Tablet.) 81 mg PO DAILY [facility] Last Admin: 01/12/21 09:09 Dose: 81 mg Documented by: MEREDITH Atorvastatin Calcium (Atorvastatin Calcium 40 Mg Tablet) 40 mg PO BEDTIME [facility] Clonidine HCl (Clonidine Hcl 0.1 Mg Tablet) 0.1 mg PO BID [facility]; Protocol Last Admin: 01/12/21 09:09 Dose: 0.1 mg Documented by: MEREDITH Heparin Sodium (Porcine) (Heparin Sodium,Porcine 5,000 Unit/Ml Vial) 5,300 unit IVPUSH PROTOCOL BOLUS PRN; Protocol PRN Reason: 80 unit/kg - Heparin Protocol Heparin Sodium (Porcine) (Heparin Sodium,Porcine 5,000 Unit/Ml Vial) 2,650 unit IVPUSH PROTOCOL BOLUS PRN; Protocol PRN Reason: 40 unit/kg - Heparin Protocol Heparin Sodium (Porcine) (Heparin Sodium,Porcine 5,000 Unit/Ml Vial) 2,600 unit 40 unit/kg (2600 unit) IVPUSH PROTOCOL BOLUS PRN; Protocol PRN Reason: 40 unit/kg - Heparin Protocol Heparin Sodium (Porcine) (Heparin Sodium,Porcine 5,000 Unit/Ml Vial) 5,300 unit 80 unit/kg (5300 unit) IVPUSH PROTOCOL BOLUS PRN; Protocol PRN Reason: 80 unit/kg - Heparin Protocol Heparin Sodium/Sodium Chloride () 25,000 unit in 250 mls @ 0 mls/hr IVCONT .Q0M CARLIE; Protocol Last Titration: 01/12/21 11:25 Dose: 12 units/kg/hr, 7.92 mls/hr Documented by: MEREDITH Cosigned by: BRANDI Dextrose/Sodium Chloride (D51/2ns) 1,000 mls @ 50 mls/hr IVCONT .Q20H CARLIE Last Admin: 01/12/21 04:54 Dose: 50 mls/hr Documented by: RICK Heparin Sodium/Sodium Chloride () 25,000 unit in 250 mls @ 0 mls/hr IVCONT .Q0M CARLIE; Protocol Lorazepam (Lorazepam 2 Mg/Ml Vial) 1 mg IVPUSH Q2H PRN PRN Reason: Seizures Melatonin (Melatonin 3 Mg Tablet) 6 mg PO BEDTIME PRN PRN Reason: Insomnia Nitroglycerin (Nitroglycerin 0.4 Mg Tab.Subl) 0.4 mg SUBLINGUAL Q5M PRN PRN Reason: CHEST PAIN Omeprazole (Omeprazole 20 Mg Capsule.Dr) 20 mg PO DAILY [facility] Last Admin: 01/12/21 09:09 Dose: 20 mg Documented by: MEREDITH Senna (Sennosides 8.6 Mg Tablet) 17.2 mg PO BEDTIME PRN PRN Reason: Constipation Sodium Chloride (0.9 % Sodium Chloride Flush 3 Ml Syringe) 3 ml IVFLUSH QSHIFT [facility] Last Admin: 01/12/21 09:10 Dose: Not Given Documented by: MEREDITH Non-Admin Reason: IV Running Labs CBC & Chem 7: 01/12/21 05:41 01/12/21 05:41 Labs: Laboratory Results - last 24 hr 01/12/21 01/12/21 01/12/21 01:12 01:12 01:12 MCV 94.3 MCH 32.6 MCHC 34.6 RDW 14.4 Plt Count 219 MPV 9.5 Immature Gran % (Auto) 0.5 H Neut % (Auto) 64.5 Lymph % (Auto) 20.5 [place] % (Auto) 9.8 Eos % (Auto) 4.1 H Baso % (Auto) 0.6 Lymph # (Auto) 3.4 [place] # (Auto) 1.6 H Eos # (Auto) 0.7 H Baso # (Auto) 0.1 Abs Immat Gran (auto) 0.09 H Absolute Neuts (auto) 10.8 H Absolute Nucleated RBC 0.000 Nucleated RBC % (auto) 0.0 Smear Tech's Comments VERIFIED PT INR APTT PTT (Heparin Protocol) Anion Gap 19 Estim Creat Clear Calc 58.7 Estimated GFR > 60 Random Glucose 109 Lactic Acid Lactic Acid Fup @ 2Hr Calcium 9.2 Magnesium 2.7 H Total Bilirubin 0.3 Direct Bilirubin 0.2 AST 37 ALT 18 Alkaline Phosphatase 86 Total Creatine Kinase Troponin I High Sens B-Natriuretic Peptide Total Protein 7.2 Albumin 4.4 Lipase 22 Urine Color Urine Appearance Urine pH Ur Specific [place] Urine Protein Urine Glucose (UA) Urine Ketones Urine Blood Urine Nitrite Ur Leukocyte Esterase Urine Opiates Screen Urine Fentanyl Screen Ur Barbiturates Screen Ur Phencyclidine Scrn Ur Amphetamines Screen U Benzodiazepines Scrn Urine Cocaine Screen U Marijuana (THC) Screen Ethyl Alcohol < 10 COVID-19 (TIFFANIE) COVID-19 Clin Com 01/12/21 01/12/21 01/12/21 01:12 01:39 01:39 MCV MCH MCHC RDW Plt Count MPV Immature Gran % (Auto) Neut % (Auto) Lymph % (Auto) [place] % (Auto) Eos % (Auto) Baso % (Auto) Lymph # (Auto) [place] # (Auto) Eos # (Auto) Baso # (Auto) Abs Immat Gran (auto) Absolute Neuts (auto) Absolute Nucleated RBC Nucleated RBC % (auto) Smear Tech's Comments PT INR APTT PTT (Heparin Protocol) Anion Gap Estim Creat Clear Calc Estimated GFR Random Glucose Lactic Acid Lactic Acid Fup @ 2Hr Calcium Magnesium Total Bilirubin Direct Bilirubin AST ALT Alkaline Phosphatase Total Creatine Kinase Troponin I High Sens 2089.4 H* B-Natriuretic Peptide 946 H Total Protein Albumin Lipase Urine Color YELLOW Urine Appearance CLEAR Urine pH 6.0 Ur Specific [place] 1.015 Urine Protein NEG Urine Glucose (UA) 100 H Urine Ketones NEG Urine Blood NEG Urine Nitrite NEG Ur Leukocyte Esterase NEG Urine Opiates Screen POSITIVE H Urine Fentanyl Screen POSITIVE H Ur Barbiturates Screen Not Detected Ur Phencyclidine Scrn Not Detected Ur Amphetamines Screen Not Detected U Benzodiazepines Scrn Not Detected Urine Cocaine Screen POSITIVE H U Marijuana (THC) Screen Not Detected Ethyl Alcohol COVID-19 (TIFFANIE) COVID-19 Clin Com 01/12/21 01/12/21 01/12/21 02:40 02:50 03:25 MCV 93.3 MCH 31.9 MCHC 34.2 RDW 14.3 Plt Count 198 MPV 9.5 Immature Gran % (Auto) Neut % (Auto) Lymph % (Auto) [place] % (Auto) Eos % (Auto) Baso % (Auto) Lymph # (Auto) [place] # (Auto) Eos # (Auto) Baso # (Auto) Abs Immat Gran (auto) Absolute Neuts (auto) Absolute Nucleated RBC 0.000 Nucleated RBC % (auto) 0.0 Smear Tech's Comments PT INR APTT PTT (Heparin Protocol) Anion Gap Estim Creat Clear Calc Estimated GFR Random Glucose Lactic Acid 4.0 H* Lactic Acid Fup @ 2Hr Calcium Magnesium Total Bilirubin Direct Bilirubin AST ALT Alkaline Phosphatase Total Creatine Kinase Troponin I High Sens B-Natriuretic Peptide Total Protein Albumin Lipase Urine Color Urine Appearance Urine pH Ur Specific [place] Urine Protein Urine Glucose (UA) Urine Ketones Urine Blood Urine Nitrite Ur Leukocyte Esterase Urine Opiates Screen Urine Fentanyl Screen Ur Barbiturates Screen Ur Phencyclidine Scrn Ur Amphetamines Screen U Benzodiazepines Scrn Urine Cocaine Screen U Marijuana (THC) Screen Ethyl Alcohol COVID-19 (TIFFANIE) Negative COVID-19 Clin Com See Note 01/12/21 01/12/21 01/12/21 03:25 03:25 04:18 MCV MCH MCHC RDW Plt Count MPV Immature Gran % (Auto) Neut % (Auto) Lymph % (Auto) [place] % (Auto) Eos % (Auto) Baso % (Auto) Lymph # (Auto) [place] # (Auto) Eos # (Auto) Baso # (Auto) Abs Immat Gran (auto) Absolute Neuts (auto) Absolute Nucleated RBC Nucleated RBC % (auto) Smear Tech's Comments PT 14.7 H INR 1.3 H APTT 34.5 Cancelled PTT (Heparin Protocol) Anion Gap Estim Creat Clear Calc Estimated GFR Random Glucose Lactic Acid Lactic Acid Fup @ 2Hr Calcium Magnesium Total Bilirubin Direct Bilirubin AST ALT Alkaline Phosphatase Total Creatine Kinase Troponin I High Sens 3387.7 H* D B-Natriuretic Peptide Total Protein Albumin Lipase Urine Color Urine Appearance Urine pH Ur Specific [place] Urine Protein Urine Glucose (UA) Urine Ketones Urine Blood Urine Nitrite Ur Leukocyte Esterase Urine Opiates Screen Urine Fentanyl Screen Ur Barbiturates Screen Ur Phencyclidine Scrn Ur Amphetamines Screen U Benzodiazepines Scrn Urine Cocaine Screen U Marijuana (THC) Screen Ethyl Alcohol COVID-19 (TIFFANIE) COVID-[employer] Com 01/12/21 01/12/21 01/12/21 05:41 05:41 05:41 MCV 92.8 MCH 31.9 MCHC 34.4 RDW 14.1 Plt Count 193 MPV 9.6 Immature Gran % (Auto) 0.5 H Neut % (Auto) 63.4 Lymph % (Auto) 22.8 [place] % (Auto) 10.4 Eos % (Auto) 2.4 Baso % (Auto) 0.5 Lymph # (Auto) 3.8 [place] # (Auto) 1.7 H Eos # (Auto) 0.4 Baso # (Auto) 0.1 Abs Immat Gran (auto) 0.08 H Absolute Neuts (auto) 10.6 H Absolute Nucleated RBC 0.000 Nucleated RBC % (auto) 0.0 Smear Tech's Comments PT INR APTT PTT (Heparin Protocol) Anion Gap 13 Estim Creat Clear Calc 69.9 Estimated GFR > 60 Random Glucose 106 Lactic Acid Lactic Acid Fup @ 2Hr Calcium 8.2 L D Magnesium 2.7 H Total Bilirubin Direct Bilirubin AST ALT Alkaline Phosphatase Total Creatine Kinase 208 H Troponin I High Sens B-Natriuretic Peptide Total Protein Albumin Lipase Urine Color Urine Appearance Urine pH Ur Specific [place] Urine Protein Urine Glucose (UA) Urine Ketones Urine Blood Urine Nitrite Ur Leukocyte Esterase Urine Opiates Screen Urine Fentanyl Screen Ur Barbiturates Screen Ur Phencyclidine Scrn Ur Amphetamines Screen U Benzodiazepines Scrn Urine Cocaine Screen U Marijuana (THC) Screen Ethyl Alcohol COVID-19 (TIFFANIE) COVID-[employer] Com 01/12/21 01/12/21 01/12/21 05:41 09:34 11:20 MCV MCH MCHC RDW Plt Count MPV Immature Gran % (Auto) Neut % (Auto) Lymph % (Auto) [place] % (Auto) Eos % (Auto) Baso % (Auto) Lymph # (Auto) [place] # (Auto) Eos # (Auto) Baso # (Auto) Abs Immat Gran (auto) Absolute Neuts (auto) Absolute Nucleated RBC Nucleated RBC % (auto) Smear Tech's Comments PT INR APTT PTT (Heparin Protocol) 133.3 H* 67.0 D Anion Gap Estim Creat Clear Calc Estimated GFR Random Glucose Lactic Acid Lactic Acid Fup @ 2Hr 2.0 Calcium Magnesium Total Bilirubin Direct Bilirubin AST ALT Alkaline Phosphatase Total Creatine Kinase Troponin I High Sens B-Natriuretic Peptide Total Protein Albumin Lipase Urine Color Urine Appearance Urine pH Ur Specific [place] Urine Protein Urine Glucose (UA) Urine Ketones Urine Blood Urine Nitrite Ur Leukocyte Esterase Urine Opiates Screen Urine Fentanyl Screen Ur Barbiturates Screen Ur Phencyclidine Scrn Ur Amphetamines Screen U Benzodiazepines Scrn Urine Cocaine Screen U Marijuana (THC) Screen Ethyl Alcohol COVID-19 (TIFFANIE) COVID-19 Clin Com Assessment and Plan (1) Atrial fibrillation: Status: Acute (2) NSTEMI (non-ST elevated myocardial infarction): Status: Acute (3) CAD (coronary artery disease): Status: Acute (4) Seizure: Status: Acute Assessment and Plan: 65-year-old male with a past medical history of hypertension, hyperlipidemia, coronary artery disease status post CABG, peripheral vascular disease status post bypass, on Eliquis; substance abuse, early dementia/forgetfulness, tobacco dependence presented to the hospital with a chief complaint of seizure episode. NSTEMI h/o CAD; cocaine + no chest pain Continue heparin drip Cardiology consult Echocardiogram Aflutter h/o PAF continue AC with hepari, resume eliquis after 48 hrs of heparin cardiology echo Seizure Reportedly tonic-clonic in nature. s/p ativan in ED Seizure precautions, aspiration precautions. Ativan p.r.n. for seizure. CT head showed with old infarct with focal encephalomalacia in the left temporal occipital lobe and left frontal lobe. No acute intracranial pathology Seen by Neurology, if patient has future seizure activity (outside of drug use) recommend Keppra 500 mg b.i.d. Avoid driving, bathing/swimming alone et cetera Dug overdose: Tox screen positive for opiates, fentanyl, cocaine s/p Narcan Addiction Medicine consult. CXR showing new interstitial lung markings No respiratory symptoms. No clinical CHF at this time. If patient spikes fever consider treatment for aspiration History of CAD s/p CABG/peripheral vascular disease s/p bypass surgery/CVA: Continue home aspirin statin, beta-nina, Plavix Code status: Full code. DVT ppx - heparin Attending-Dr. Black Quality Stroke Does the patient have a stroke diagnosis?: No VTE Prior VTE?: No VTE Risk Level:: Medical - moderate - high VTE Device Contraindication: Treatment Not Indicated VTE Drug Contraindication: N/A - Med Ordered
--- NOTE | 2021-01-12 13:59 | P.CONCA_ITS ---
History of Present Illness History of Present Illness Date of Service: 01/12/21 Requesting physician: Ricco Mullins Consult reason: troponin elevation Chief complaint: A flutter Narrative: I was requested to see Phan in cardiology consultation for elevated troponins and atrial fibrillation. Patient is a poor historian and cannot corroborate any recent symptoms and says he does not know why he is in the hospital. He seems like he was using heroin and subsequently had seizure-like activity at home and loss of consciousness and was brought by EMS. There was apparent urinary incontinence. When patient came to the hospital after re ceiving Narcan he was awake but very agitated and tachycardic. He received IV Ativan with improvement and sedation. EKG showing at that time showed atrial flutter with rapid ventricular response. Subsequent was given IV metoprolol heart rate improved. His initial troponin was in the 2000 rate subsequent troponin the 3000 range. He denies any chest pain this morning. He is much more awake and alert. Denies shortness of breath, palpitations. Currently in atrial fibrillation with controlled ventricular response. Blood pressure is well controlled. Patient denies any recent chest pain few days ago. Again he was doing heroin and also U tox positive for cocaine and he admits as doing portillo benjamin. Review of Systems Review of Systems: Yes all other systems are reviewed and are negative Constitutional: Constitutional: Denies chills, Denies fatigue and Denies fever(s) Eyes: Eyes: Reports no additional eye complaints ENT: Reports system reviewed and no additional complaints, except as documented Cardiovascular: Cardiovascular: Reports no additional cardiovascular complaints Respiratory: Respiratory: Reports no additional respiratory complaints Gastrointestinal: Gastrointestinal: Reports no additional gastrointestinal complaints Genitourinary: Genitourinary: Reports no additional male genitourinary complaints Musculoskeletal: Musculoskeletal: Reports no additional musculoskeletal complaints Integumentary/Breasts: Skin/Breast: Reports system reviewed and no additional complaints, except as docu Neurologic: Reports system reviewed and no additional complaints, except as documented Psychiatric: Psychiatric: Reports no additional psychiatric complaints Endocrine: Endocrine: Reports no additional endocrine complaints and Denies fatigue Hematologic/Lymphatic: Hematologic/Lymphatic: Reports no additional hematologic/lymphatic complaints [facility] Past Medical History Medical History CAD (coronary artery disease) Drug abuse Heroin use Paroxysmal atrial fibrillation PVD (peripheral vascular disease) Surgical History Surgical History S/P CABG x 2 Social History Social History Alcohol intake: never Use of substances other than those prescribed or required for medical reasons: Unable to respond Substance Use Type: Heroin Advance Directives: Yes Advance Directives on File: Yes Advance Directives Date on File: 01/12/21 Meds Allergies Allergy/AdvReac Type Severity Reaction Status Date / Time No Known Allergies Allergy Unverified 01/12/21 01:03 Active Medications: Current Medications Generic Name Dose Route Start Last Admin Trade Name Freq PRN Reason Stop Dose Admin Acetaminophen 650 mg 01/12/21 03:45 Acetaminophen 325 Mg Tablet PO Q6H PRN Pain, Mild (Pain Scale 1-3) Aspirin 81 mg 01/12/21 09:00 01/12/21 09:09 Aspirin Enteric Coated 81 Mg Tablet.Dr PO 81 mg DAILY CARLIE Administration Atorvastatin Calcium 40 mg 01/12/21 21:00 Atorvastatin Calcium 40 Mg Tablet PO BEDTIME CARLIE Clonidine HCl 0.1 mg 01/12/21 09:00 01/12/21 09:09 Clonidine Hcl 0.1 Mg Tablet PO 0.1 mg BID CARLIE Administration Protocol Heparin Sodium (Porcine) 5,300 unit 01/12/21 03:34 Heparin Sodium,Porcine 5,000 Unit/Ml Vial IVPUSH PROTOCOL BOLUS PRN 80 unit/kg - Heparin Protocol Protocol Heparin Sodium (Porcine) 2,650 unit 01/12/21 03:34 Heparin Sodium,Porcine 5,000 Unit/Ml Vial IVPUSH PROTOCOL BOLUS PRN 40 unit/kg - Heparin Protocol Protocol Heparin Sodium (Porcine) 2,600 unit 01/12/21 03:45 Heparin Sodium,Porcine 5,000 Unit/Ml Vial 40 unit/kg (2600 unit) IVPUSH PROTOCOL BOLUS PRN 40 unit/kg - Heparin Protocol Protocol Heparin Sodium (Porcine) 5,300 unit 01/12/21 03:45 Heparin Sodium,Porcine 5,000 Unit/Ml Vial 80 unit/kg (5300 unit) IVPUSH PROTOCOL BOLUS PRN 80 unit/kg - Heparin Protocol Protocol Heparin Sodium/Sodium Chloride 25,000 unit in 250 mls @ 0 mls/hr 01/12/21 03: 30 01/12/21 11:25 IVCONT 12 units/kg/hr .Q0M CARLIE 7.92 mls/hr Titration Protocol Per Protocol Dextrose/Sodium Chloride 1,000 mls @ 50 mls/hr 01/12/21 03:45 01/12/21 04:54 D51/2ns IVCONT 50 mls/hr .Q20H ACRLIE Administration Heparin Sodium/Sodium Chloride 25,000 unit in 250 mls @ 0 mls/hr 01/12/21 03:45 IVCONT .Q0M CARLIE Protocol Per Protocol Lorazepam 1 mg 01/12/21 03:54 Lorazepam 2 Mg/Ml Vial IVPUSH Q2H PRN Seizures Melatonin 6 mg 01/12/21 03:45 Melatonin 3 Mg Tablet PO BEDTIME PRN Insomnia Nitroglycerin 0.4 mg 01/12/21 04:00 Nitroglycerin 0.4 Mg Tab.Subl SUBLINGUAL Q5M PRN CHEST PAIN Omeprazole 20 mg 01/12/21 09:00 01/12/21 09:09 Omeprazole 20 Mg Capsule. PO 20 mg DAILY [facility] Administration Senna 17.2 mg 01/12/21 03:45 Sennosides 8.6 Mg Tablet PO BEDTIME PRN Constipation Sodium Chloride 3 ml 01/12/21 08:00 01/12/21 09:10 0.9 % Sodium Chloride Flush 3 Ml Syringe IVFLUSH Not Given QSHIFT [facility] Home Medications Medication Instructions Recorded Confirmed Last Taken Type apixaban 5 mg tablet (Eliquis) 5 mg PO BID 01/12/21 01/12/21 01/11/21 19:00 History aspirin 81 mg tablet 81 mg PO DAILY 01/12/21 01/12/21 01/11/21 08:00 History atorvastatin 40 mg tablet 40 mg PO BEDTIME 01/12/21 01/12/21 01/11/21 19:00 History clonidine HCl 0.1 mg tablet 0.1 mg PO BID 01/12/21 01/12/21 Unknown History lisinopril 5 mg tablet 1 tab PO DAILY 01/12/21 01/12/21 Unknown History metoprolol tartrate 25 mg tablet 25 mg PO BID 01/12/21 01/12/21 01/11/21 19:00 History nitroglycerin 0.4 mg sublingual 0.4 mg SUBLINGUAL NEEDED 01/12/21 01/12/21 01/08/21 History tablet omeprazole 20 mg capsule,delayed 20 mg PO DAILY 01/12/21 01/12/21 01/11/21 08:00 History release Physical Exam Vital Signs: Vital Signs: Last Vital Signs Temp 98.4 F 01/12/21 07:20 Pulse 88 01/12/21 09:09 Resp 17 01/12/21 07:20 BP 117/77 01/12/21 09:09 Pulse Ox 96 01/12/21 07:20 Body Mass Index 22.1 Const: General: cooperative, comfortable, alert and awake Nutritional Appearance: thin Orientation/consciousness: patient oriented x3 HENMT: Head: Yes normocephalic and Yes atraumatic Neck: Neck: Yes trachea midline, Yes supple and Yes no JVD Resp: Effort & Inspection: normal respiratory effort Auscultation: wheezes and diminished lung sounds Cardio: Jugular venous distension: no JVD Rate: regular rate Rhythm: abnormal rhythm irregularly irregular Heart sounds: S1 normal heart sound present, S2 normal heart sound present, no click, no gallops and no murmurs GI: Auscultation: normal bowel sounds Skin: General skin exam: no rashes or lesions noted Neuro: General: patient oriented x3 and no focal motor deficits Extrem: General: Yes no clubbing, cyanosis or edema Results Labs and Meds Result diagrams: 01/12/21 05:41 01/12/21 05:41 Lab results: Laboratory Results - last 24 hr 01/12/21 01/12/21 01/12/21 01:12 01:12 01:12 WBC 16.7 H RBC 4.57 L Hgb 14.9 Hct 43.1 MCV 94.3 MCH 32.6 MCHC 34.6 RDW 14.4 Plt Count 219 MPV 9.5 Immature Gran % (Auto) 0.5 H Neut % (Auto) 64.5 Lymph % (Auto) 20.5 [place] % (Auto) 9.8 Eos % (Auto) 4.1 H Baso % (Auto) 0.6 Lymph # (Auto) 3.4 [place] # (Auto) 1.6 H Eos # (Auto) 0.7 H Baso # (Auto) 0.1 Abs Immat Gran (auto) 0.09 H Absolute Neuts (auto) 10.8 H Absolute Nucleated RBC 0.000 Nucleated RBC % (auto) 0.0 Smear Tech's Comments VERIFIED PT INR APTT PTT (Heparin Protocol) Sodium 136 Potassium 4.4 Chloride 103 Carbon Dioxide 18 L Anion Gap 19 BUN 16 Creatinine 1.19 Estim Creat Clear Calc 58.7 Estimated GFR > 60 Random Glucose 109 Lactic Acid Lactic Acid Fup @ 2Hr Calcium 9.2 Magnesium 2.7 H Total Bilirubin 0.3 Direct Bilirubin 0.2 AST 37 ALT 18 Alkaline Phosphatase 86 Total Creatine Kinase Troponin I High Sens B-Natriuretic Peptide Total Protein 7.2 Albumin 4.4 Lipase 22 Urine Color Urine Appearance Urine pH Ur Specific [place] Urine Protein Urine Glucose (UA) Urine Ketones Urine Blood Urine Nitrite Ur Leukocyte Esterase Urine Opiates Screen Urine Fentanyl Screen Ur Barbiturates Screen Ur Phencyclidine Scrn Ur Amphetamines Screen U Benzodiazepines Scrn Urine Cocaine Screen U Marijuana (THC) Screen Ethyl Alcohol < 10 COVID-19 (TIFFANIE) COVID-19 AMS VariCode 01/12/21 01/12/21 01/12/21 01:12 01:39 01:39 WBC RBC Hgb Hct MCV MCH MCHC RDW Plt Count MPV Immature Gran % (Auto) Neut % (Auto) Lymph % (Auto) [place] % (Auto) Eos % (Auto) Baso % (Auto) Lymph # (Auto) [place] # (Auto) Eos # (Auto) Baso # (Auto) Abs Immat Gran (auto) Absolute Neuts (auto) Absolute Nucleated RBC Nucleated RBC % (auto) Smear Tech's Comments PT INR APTT PTT (Heparin Protocol) Sodium Potassium Chloride Carbon Dioxide Anion Gap BUN Creatinine Estim Creat Clear Calc Estimated GFR Random Glucose Lactic Acid Lactic Acid Fup @ 2Hr Calcium Magnesium Total Bilirubin Direct Bilirubin AST ALT Alkaline Phosphatase Total Creatine Kinase Troponin I High Sens 2089.4 H* B-Natriuretic Peptide 946 H Total Protein Albumin Lipase Urine Color YELLOW Urine Appearance CLEAR Urine pH 6.0 Ur Specific [place] 1.015 Urine Protein NEG Urine Glucose (UA) 100 H Urine Ketones NEG Urine Blood NEG Urine Nitrite NEG Ur Leukocyte Esterase NEG Urine Opiates Screen POSITIVE H Urine Fentanyl Screen POSITIVE H Ur Barbiturates Screen Not Detected Ur Phencyclidine Scrn Not Detected Ur Amphetamines Screen Not Detected U Benzodiazepines Scrn Not Detected Urine Cocaine Screen POSITIVE H U Marijuana (THC) Screen Not Detected Ethyl Alcohol COVID-19 (TIFFANIE) COVID-19 AMS VariCode 01/12/21 01/12/21 01/12/21 02:40 02:50 03:25 WBC 16.6 H RBC 3.89 L Hgb 12.4 L Hct 36.3 L MCV 93.3 MCH 31.9 MCHC 34.2 RDW 14.3 Plt Count 198 MPV 9.5 Immature Gran % (Auto) Neut % (Auto) Lymph % (Auto) [place] % (Auto) Eos % (Auto) Baso % (Auto) Lymph # (Auto) [place] # (Auto) Eos # (Auto) Baso # (Auto) Abs Immat Gran (auto) Absolute Neuts (auto) Absolute Nucleated RBC 0.000 Nucleated RBC % (auto) 0.0 Smear Tech's Comments PT INR APTT PTT (Heparin Protocol) Sodium Potassium Chloride Carbon Dioxide Anion Gap BUN Creatinine Estim Creat Clear Calc Estimated GFR Random Glucose Lactic Acid 4.0 H* Lactic Acid Fup @ 2Hr Calcium Magnesium Total Bilirubin Direct Bilirubin AST ALT Alkaline Phosphatase Total Creatine Kinase Troponin I High Sens B-Natriuretic Peptide Total Protein Albumin Lipase Urine Color Urine Appearance Urine pH Ur Specific [place] Urine Protein Urine Glucose (UA) Urine Ketones Urine Blood Urine Nitrite Ur Leukocyte Esterase Urine Opiates Screen Urine Fentanyl Screen Ur Barbiturates Screen Ur Phencyclidine Scrn Ur Amphetamines Screen U Benzodiazepines Scrn Urine Cocaine Screen U Marijuana (THC) Screen Ethyl Alcohol COVID-19 (TIFFANIE) Negative COVID-19 Clin Com See Note 01/12/21 01/12/21 01/12/21 03:25 03:25 04:18 WBC RBC Hgb Hct MCV MCH MCHC RDW Plt Count MPV Immature Gran % (Auto) Neut % (Auto) Lymph % (Auto) [place] % (Auto) Eos % (Auto) Baso % (Auto) Lymph # (Auto) [place] # (Auto) Eos # (Auto) Baso # (Auto) Abs Immat Gran (auto) Absolute Neuts (auto) Absolute Nucleated RBC Nucleated RBC % (auto) Smear Tech's Comments PT 14.7 H INR 1.3 H APTT 34.5 Cancelled PTT (Heparin Protocol) Sodium Potassium Chloride Carbon Dioxide Anion Gap BUN Creatinine Estim Creat Clear Calc Estimated GFR Random Glucose Lactic Acid Lactic Acid Fup @ 2Hr Calcium Magnesium Total Bilirubin Direct Bilirubin AST ALT Alkaline Phosphatase Total Creatine Kinase Troponin I High Sens 3387.7 H* D B-Natriuretic Peptide Total Protein Albumin Lipase Urine Color Urine Appearance Urine pH Ur Specific [place] Urine Protein Urine Glucose (UA) Urine Ketones Urine Blood Urine Nitrite Ur Leukocyte Esterase Urine Opiates Screen Urine Fentanyl Screen Ur Barbiturates Screen Ur Phencyclidine Scrn Ur Amphetamines Screen U Benzodiazepines Scrn Urine Cocaine Screen U Marijuana (THC) Screen Ethyl Alcohol COVID-19 (TIFFANIE) COVID-19 [employer] Com 01/12/21 01/12/21 01/12/21 05:41 05:41 05:41 WBC 16.7 H RBC 4.04 L Hgb 12.9 L Hct 37.5 L MCV 92.8 MCH 31.9 MCHC 34.4 RDW 14.1 Plt Count 193 MPV 9.6 Immature Gran % (Auto) 0.5 H Neut % (Auto) 63.4 Lymph % (Auto) 22.8 [place] % (Auto) 10.4 Eos % (Auto) 2.4 Baso % (Auto) 0.5 Lymph # (Auto) 3.8 [place] # (Auto) 1.7 H Eos # (Auto) 0.4 Baso # (Auto) 0.1 Abs Immat Gran (auto) 0.08 H Absolute Neuts (auto) 10.6 H Absolute Nucleated RBC 0.000 Nucleated RBC % (auto) 0.0 Smear Tech's Comments PT INR APTT PTT (Heparin Protocol) Sodium 137 Potassium 4.4 Chloride 109 H Carbon Dioxide 19 L Anion Gap 13 BUN 14 Creatinine 0.97 Estim Creat Clear Calc 69.9 Estimated GFR > 60 Random Glucose 106 Lactic Acid Lactic Acid Fup @ 2Hr Calcium 8.2 L D Magnesium 2.7 H Total Bilirubin Direct Bilirubin AST ALT Alkaline Phosphatase Total Creatine Kinase 208 H Troponin I High Sens B-Natriuretic Peptide Total Protein Albumin Lipase Urine Color Urine Appearance Urine pH Ur Specific [place] Urine Protein Urine Glucose (UA) Urine Ketones Urine Blood Urine Nitrite Ur Leukocyte Esterase Urine Opiates Screen Urine Fentanyl Screen Ur Barbiturates Screen Ur Phencyclidine Scrn Ur Amphetamines Screen U Benzodiazepines Scrn Urine Cocaine Screen U Marijuana (THC) Screen Ethyl Alcohol COVID-19 (TIFFANIE) COVID-19 [employer] Com 01/12/21 01/12/21 01/12/21 05:41 09:34 11:20 WBC RBC Hgb Hct MCV MCH MCHC RDW Plt Count MPV Immature Gran % (Auto) Neut % (Auto) Lymph % (Auto) [place] % (Auto) Eos % (Auto) Baso % (Auto) Lymph # (Auto) [place] # (Auto) Eos # (Auto) Baso # (Auto) Abs Immat Gran (auto) Absolute Neuts (auto) Absolute Nucleated RBC Nucleated RBC % (auto) Smear Tech's Comments PT INR APTT PTT (Heparin Protocol) 133.3 H* 67.0 D Sodium Potassium Chloride Carbon Dioxide Anion Gap BUN Creatinine Estim Creat Clear Calc Estimated GFR Random Glucose Lactic Acid Lactic Acid Fup @ 2Hr 2.0 Calcium Magnesium Total Bilirubin Direct Bilirubin AST ALT Alkaline Phosphatase Total Creatine Kinase Troponin I High Sens B-Natriuretic Peptide Total Protein Albumin Lipase Urine Color Urine Appearance Urine pH Ur Specific [place] Urine Protein Urine Glucose (UA) Urine Ketones Urine Blood Urine Nitrite Ur Leukocyte Esterase Urine Opiates Screen Urine Fentanyl Screen Ur Barbiturates Screen Ur Phencyclidine Scrn Ur Amphetamines Screen U Benzodiazepines Scrn Urine Cocaine Screen U Marijuana (THC) Screen Ethyl Alcohol COVID-19 (TIFFANIE) COVID-19 Clin Com EKG shows atrial flutter with variable conduction with poor R-wave progression consistent with septal [place] with nonspecific ST changes Imaging Radiologist's impression: Impressions Head CT 01/12/21 01:07 IMPRESSION: No acute intracranial pathology. Chest X-Ray 01/12/21 01:47 IMPRESSION: Diffuse increased interstitial lung markings new since prior chest x-ray. Interstitial pneumonia versus cardiogenic etiology, congestive heart failure. Assessment and Plan (1) NSTEMI (non-ST elevated myocardial infarction): Status: Acute Elevated troponin consistent with non ST elevation myocardial infarction, most likely secondary to cocaine use in the setting of known prior CAD and/possibly respiratory arrest related to heroin use. Patient currently asymptomatic. Importance of abstinence from drug use was discussed especially in the setting of known prior diffuse vascular disease that will height in his risk for future myocardial infarction. Once stable can perform outpatient myocardial perfusion imaging to assess for residual myocardial ischemia. Meanwhile continue aggressive risk factor modification. Blood pressure is optimized. Continue high-intensity statin therapy. Complete smoking cessation was advised. Echocardiogram to be performed to evaluate LV systolic and diastolic function. Continue IV heparin for 48 hours. Continue to trend troponin till there is peak (2) Atrial fibrillation: Status: Acute Known history of prior paroxysmal atrial fibrillation. This episode of atrial fibrillation most likely triggered by acute event including drug abuse/cocaine use. Currently rate control. Can resume metoprolol therapy and closely follow for on a post alpha receptor activity with significant hypertension given that he has prior cocaine use. However this will be the safer drug to use. After IV heparin for 48 hours can resume Eliquis 5 mg b.i.d.. Will follow with you Procedures Date of Service Date of Service: 01/12/21
--- NOTE | 2021-01-12 14:51 | MHC.CM.PN ---
Patient is documented to have Dementia/Forgetfulness; CM spoke with /HCP/Puma @ [phone] and addressed IMM with her, mailing the original certified mail to her and placing a copy on the chart. Patient lives in a house with his and required no services nor [employer]. Home no services vs Care Team interventions is the goal (Substance Abuse and Overdose)and CM has initiated and will follow for dc planning.
--- NOTE | 2021-01-12 14:58 | MHC.CM.PN ---
Attempted to meet with patient in regards to discharge planning. Patient currently sleeping. No family present. Will attempt to meet again. Continue to monitor for d/c needs.
--- NOTE | 2021-01-12 16:17 | PC.NURSE ---
This database report writer spoke with MAXIM Lafleur regarding dose rate change. Rowan will order STAT PTT, dose at 8 u/kg/h until further notice. Redraw scheduled for 1719.
[2021-01-12 17:12] LABS: Partial Thromboplastin Time 50.5 SEC (24.1-38.0)
[2021-01-12] MEDS: Heparin Sodium,Porcine 5,000 UNIT/ML VIAL 2650 UNIT IVPUSH (17:54)
[2021-01-12] MEDS: Metoprolol Tartrate 25 MG TABLET PO (21:09)
[2021-01-12] MEDS: Atorvastatin Calcium 40 MG TABLET PO (21:09)
[2021-01-13] VITALS (9 sets, daily range): BP systolic 101–157; BP diastolic 61–87; PULSE 51–89; RESP 16–18; TEMP 36.6–36.9; O2SAT 95–98
[2021-01-13 00:56] LABS: PTT Heparin Drip 110.1 SEC (53-77.9)
[2021-01-13 02:25] LABS: PTT Heparin Drip 55.6 SEC (53-77.9)
[2021-01-13 06:57] LABS: Hematocrit 35.9 % (42-52); Hemoglobin 12.7 g/dl (14.0-18.0); Mean Corpuscular HGB Conc 35.4 g/dl (31.0-36.0); Mean Corpuscular Hemoglobin 32.8 pg (27.0-33.0); Mean Corpuscular Volume 92.8 fL (80-98); Platelet Count 159 X10*3/uL (160-400); Red Blood Count 3.87 X10*6/uL (4.60-5.80); Red Cell Distribution Width 14.5 % (11.0-16.0); White Blood Count 13.3 X10*3/uL (4.8-10.8)
[2021-01-13 06:59] LABS: INTERNATIONAL NORM RATIO 1.1 (0.9-1.1)
[2021-01-13 07:20] LABS: Anion Gap 11 (12-20); Blood Urea Nitrogen 8 mg/dL (9-16); Calcium 8.2 mg/dL (8.4-10.2); Carbon Dioxide 24 mmol/L (22-29); Chloride 108 mmol/L (96-108); Creatinine Clr Calc Pharmacy 86.9; Estimated Glomerular Filt Rate > 60; Glucose Random 97 mg/dL (60-115); Potassium 3.9 mmol/L (3.3-5.1); Sodium 139 mmol/L (135-145)
--- NOTE | 2021-01-13 07:30 | CA_ITS ---
Transthoracic Echocardiogram Patient (Last, First, Middle): Phan Boateng C Gender: Male Date of : 1955 Age: 65 Procedure Date: 01/13/2021 Procedure Type: Transthoracic [place]ogram [place] [facility] [place]: 172.72 cm Weight: 65.77 kg BSA: 1.78 m2 Heart Rate: bpm BP: 99 / 66 mmHg Press Leader: ROMÁN Referring MD: Ricco Mullins MD Symptoms: aflutter Study Quality: Fair Conclusions: - 1. Mildly reduced LV systolic function with regional wall motion abnormality suggestive underlying coronary artery disease with grade 2 diastolic dysfunction 2. Mildly dilated left atrium 3. Normal cardiac valvular Doppler 4. Normal RV systolic pressure 5. No pericardial effusion Findings Left Ventricle Normal left ventricular cavity size. There is mildly increased left ventricular wall thickness. The left ventricular systolic function is mildly decreased. The visually estimated ejection fraction is between 45-50%. Spectral Doppler is indicative of a pseudonormal filling pattern. E/E prime ratio is >15, consistent with elevated filling pressures. Evidence suggests grade II (moderate) diastolic dysfunction. Wall Motion Rest Echo Findings The apical anterior, basal inferior, mid inferior, basal inferoseptal, and basal anteroseptal segments are akinetic. The apex segment is dyskinetic. The mid inferoseptal segment is aneurysmal. All other scored wall segments showed normal motion. Right Ventricle Normal right ventricular cavity size and systolic function. Atria The left atrium is mildly dilated. There is no evidence of interatrial shunt. The right atrium is normal in size. Aortic Valve Normal aortic valve structure and function. There is mild aortic valve stenosis. There is no aortic valve regurgitation. Mitral Valve There is mild anterior and posterior mitral leaflet thickening. There is mild mitral annular calcification. There is no mitral valve regurgitation. There is no mitral valve stenosis. Tricuspid Valve Likely normal tricuspid valve structure and function. There is mild tricuspid valve regurgitation. The right ventricular systolic pressure is normal. The right ventricular systolic pressure is 33 mmHg. Normal right atrial pressure. There is no evidence of pulmonary hypertension. Great Vessels All visible segments of the aorta are normal in size. The pulmonary artery was not well visualized. Venous The inferior vena cava is normal in size and collapses greater than 50% with inspiration. Pericardium/Pleural There is no evidence of pericardial effusion. Prior Study Comparison No prior study available for comparison. Measurements 2D Linear Measurements IVSd: 1.16 0.6-0.9/0.6-1.0 cm LVIDd: 4.33 3.9-5.3/4.2-5.9 cm LVIDd Index: 2.43 2.4-3.2/2.2-3.1 cm/m2 LVIDs: 3.02 2.0-3.6 cm LVPWd: 1.02 0.7-1.1 cm Ao Root: 3.50 2.1-3.5 cm LA Diam: 4.40 2.7-3.8/3.0-4.0 cm LAIDs Index: 2.47 1.5-2.3 cm/m2 LV Mass: 202.50 67-162/88-224 g LV Mass Index: 113.76 43-95/49-115 g/m2 LVOT Diam: 2.00 3.0+(-)1.3 cm 2D Systolic Function EF 4C: 46.50 >55% EF 2C: 52.30 >55% EF BiP: 50.60 >55% Mitral Valve MV Pk E: 1.05 MV PK A: 0.53 MV Decel Time: 218.00 E/A: 2.00 E'Lateral: 6.42 E'Medial: 4.35 E/E' Med: 24.10 E/E' Lat: 16.40 PHT: 64.00 MVA PHT: 3.44 Decel [place]: 4.82 Aortic Valve AoV Pk [place]: 1.10 AoV Mn [place]: 0.72 AoV VTI: 0.24 AoV Pk Grad: 5.00 Aov Mn Grad: 2.00 ISIDRO Cont.VTI: 2.96 LVOT LVOT Pk [place]: 1.10 LVOT Mn [place]: 0.65 LVOT VTI: 0.23 LVOT Pk Grad: 5.00 LVOT Mn Grad: 2.00 LVOT Diam: 2.00 LVOT Area: 3.14 Diastolic Function MV Pk E: 1.05 MV Pk A: 0.53 E/A: 2.00 E'Medial: 4.35 E/E' Med: 24.10 E' Laterial: 6.42 E/E' Lat: 16.40 Right Ventricle TAPSE (mm): 1.87 TVS' Le[place]: 11.00 Tricuspid Valve TR Pk [place]: 2.73 TR Pk Grad: 30.00 RA Press: 3.00 RVSP: 33.00 Great Vessels Aorta Ao Root-2D: 3.50 2.0-3.7 cm Ao Asc: 3.70 2.1-3.4 cm Updated in Other Vendor System with Status of Final Gustavo Cox MD electronically signed on 01/13/2021 11:58:26 AM with status of Final
[2021-01-13] MEDS: Metoprolol Tartrate 25 MG TABLET PO ×2 (09:06→20:16)
[2021-01-13] MEDS: Aspirin Enteric Coated 81 MG TABLET.DR PO (09:06)
[2021-01-13] MEDS: cloNIDine HCL 0.1 MG TABLET PO ×2 (09:06→20:15)
[2021-01-13] MEDS: Omeprazole 20 MG CAPSULE.DR PO (09:06)
[2021-01-13] MEDS: Heparin Sodium,Porcine 5,000 UNIT/ML VIAL 2650 UNIT IVPUSH ×2 (10:15→22:50)
--- NOTE | 2021-01-13 10:44 | P.PNCA_ITS ---
Subjective Subjective Date of Service: 01/13/21 Principal diagnosis: Paroxysmal atrial fibrillation, NSTEMI Interval history: Patient this morning not having any symptoms. Converted overnight to sinus rhythm. No repeat troponins have been performed. Hemodynamically stable. Denies shortness of breath. No palpitations. Review of Systems Review of Systems Yes all other systems are reviewed and are negative Constitutional: Reports no additional constitutional complaints Cardiovascular: Reports no additional cardiovascular complaints Respiratory: Reports no additional respiratory complaints Gastrointestinal: Reports no additional gastrointestinal complaints Genitourinary: Reports no additional male genitourinary complaints Musculoskeletal: Reports no additional musculoskeletal complaints Reports system reviewed and no additional complaints, except as documented Psychiatric: Reports no additional psychiatric complaints Physical Exam Vital Signs: Last Vital Signs Temp 98.5 F 01/13/21 06:59 Pulse 66 01/13/21 09:06 Resp 18 01/13/21 06:59 BP 122/62 01/13/21 09:06 Pulse Ox 98 01/13/21 06:59 Body Mass Index 22.1 Const General: cooperative and comfortable Nutritional Appearance: thin Orientation/consciousness: patient oriented x3 Limitations: no limitations Neck Neck: Yes trachea midline, Yes supple and Yes no JVD Resp Effort & Inspection: normal respiratory effort Auscultation: wheezes scattered wheezes and diminished lung sounds Cardio Jugular venous distension: no JVD Palpation: normal PMI Rate: regular rate Rhythm: regular rhythm Heart sounds: S1 normal heart sound present, S2 normal heart sound present, no click, no gallops and no murmurs Skin General skin exam: no rashes or lesions noted Neuro General: patient oriented x3 and no focal motor deficits Extrem General: Yes no clubbing, cyanosis or edema Results Labs and Meds Result diagrams: 01/13/21 05:33 01/13/21 05:33 Lab results: Laboratory Results - last 24 hr 01/12/21 01/12/21 01/13/21 11:20 16:44 00:15 WBC RBC Hgb Hct MCV MCH MCHC RDW Plt Count MPV Absolute Nucleated RBC Nucleated RBC % (auto) PT INR APTT 50.5 H D PTT (Heparin Protocol) 67.0 D 110.1 H* D Sodium Potassium Chloride Carbon Dioxide Anion Gap BUN Creatinine Estim Creat Clear Calc Estimated GFR Random Glucose Calcium 01/13/21 01/13/21 01/13/21 02:08 05:33 05:33 WBC 13.3 H RBC 3.87 L Hgb 12.7 L Hct 35.9 L MCV 92.8 MCH 32.8 MCHC 35.4 RDW 14.5 Plt Count 159 L MPV 11.0 Absolute Nucleated RBC 0.000 Nucleated RBC % (auto) 0.0 PT 13.0 INR 1.1 APTT PTT (Heparin Protocol) 55.6 D Sodium Potassium Chloride Carbon Dioxide Anion Gap BUN Creatinine Estim Creat Clear Calc Estimated GFR Random Glucose Calcium 01/13/21 01/13/21 05:33 09:00 WBC RBC Hgb Hct MCV MCH MCHC RDW Plt Count MPV Absolute Nucleated RBC Nucleated RBC % (auto) PT INR APTT PTT (Heparin Protocol) 37.0 L D Sodium 139 Potassium 3.9 Chloride 108 Carbon Dioxide 24 Anion Gap 11 L BUN 8 L Creatinine 0.78 Estim Creat Clear Calc 86.9 Estimated GFR > 60 Random Glucose 97 Calcium 8.2 L Progress Note: A&P Assessment and plan (1) NSTEMI (non-ST elevated myocardial infarction): Status: Acute Assessment and Plan: Patient presents with seizure-like presentation question respiratory arrest related to heroin use as well as elevated troponin suggestive of NSTEMI. No active myocardial symptoms. EKG does not show any significant ischemia. Most likely reason for his non ST elevation myocardial infarction is his cocaine use and possibly respiratory S. Discussed with him about not using drugs. He lasted off. He said he enjoys it and is going to continue to use it. Dangers of drug abuse were discussed with him. He did not seem phase. Continue aspirin. Continue IV heparin for 1 more day. Will review the echocardiogram. Continue his high-dose statins, metoprolol list of breath. He is not having any active myocardial ischemic symptoms and I do not think it requires cardiac catheterization urgently. Can follow up with his own airport security screener as outpatient can perform further testing if needed (2) Paroxysmal atrial fibrillation: Status: Acute Assessment and Plan: Paroxysmal atrial fibrillation most likely induced and triggered by acute medical condition and cocaine use. Abstinence from cocaine was discussed. Unfortunately he is not inclined to do so. Can switch from IV heparin to Eliquis tomorrow evening after 48 hours of IV heparin. Avoidance of other stimulants was discussed. Continue metoprolol therapy. Will sign of the case. Thank you for allowing us to partake in his care Fall Risk Details Current Medications: Current Medications Generic Name Dose Route Start Last Admin Trade Name Homer PRN Reason Stop Dose Admin Acetaminophen 650 mg 01/12/21 03:45 Acetaminophen 325 Mg Tablet PO Q6H PRN Pain, Mild (Pain Scale 1-3) Aspirin 81 mg 01/12/21 09:00 01/13/21 09:06 Aspirin Enteric Coated 81 Mg Tablet. PO 81 mg DAILY CARLIE Administration Atorvastatin Calcium 40 mg 01/12/21 21:00 01/12/21 21:09 Atorvastatin Calcium 40 Mg Tablet PO 40 mg BEDTIME CARLIE Administration Clonidine HCl 0.1 mg 01/12/21 09:00 01/13/21 09:06 Clonidine Hcl 0.1 Mg Tablet PO 0.1 mg BID CARLIE Administration Protocol Heparin Sodium (Porcine) 5,300 unit 01/12/21 03:34 Heparin Sodium,Porcine 5,000 Unit/Ml Vial IVPUSH PROTOCOL BOLUS PRN 80 unit/kg - Heparin Protocol Protocol Heparin Sodium (Porcine) 2,650 unit 01/12/21 03:34 01/13/21 10:15 Heparin Sodium,Porcine 5,000 Unit/Ml Vial IVPUSH 2,650 unit PROTOCOL BOLUS PRN Administration 40 unit/kg - Heparin Protocol Protocol Heparin Sodium (Porcine) 2,600 unit 01/12/21 03:45 Heparin Sodium,Porcine 5,000 Unit/Ml Vial 40 unit/kg (2600 unit) IVPUSH PROTOCOL BOLUS PRN 40 unit/kg - Heparin Protocol Protocol Heparin Sodium (Porcine) 5,300 unit 01/12/21 03:45 Heparin Sodium,Porcine 5,000 Unit/Ml Vial 80 unit/kg (5300 unit) IVPUSH PROTOCOL BOLUS PRN 80 unit/kg - Heparin Protocol Protocol Heparin Sodium/Sodium Chloride 25,000 unit in 250 mls @ 0 mls/hr 01/12/21 03:30 01/13/21 10:16 IVCONT 8 units/kg/hr .Q0M CARLIE 5.28 mls/hr Titration Protocol Per Protocol Dextrose/Sodium Chloride 1,000 mls @ 50 mls/hr 01/12/21 03:45 01/12/21 22:42 D51/2ns IVCONT 50 mls/hr .Q20H CARLIE Administration Heparin Sodium/Sodium Chloride 25,000 unit in 250 mls @ 0 mls/hr 01/12/21 03:45 IVCONT .Q0M CARLIE Protocol Per Protocol Lorazepam 1 mg 01/12/21 03:54 Lorazepam 2 Mg/Ml Vial IVPUSH Q2H PRN Seizures Melatonin 6 mg 01/12/21 03:45 Melatonin 3 Mg Tablet PO BEDTIME PRN Insomnia Metoprolol Tartrate 25 mg 01/12/21 21:00 01/13/21 09:06 Metoprolol Tartrate 25 Mg Tablet PO 25 mg BID CARLIE Administration Protocol Nitroglycerin 0.4 mg 01/12/21 04:00 Nitroglycerin 0.4 Mg Tab.Subl SUBLINGUAL Q5M PRN CHEST PAIN Omeprazole 20 mg 01/12/21 09:00 01/13/21 09:06 Omeprazole 20 Mg Capsule.Dr PO 20 mg DAILY CARLIE Administration Senna 17.2 mg 01/12/21 03:45 Sennosides 8.6 Mg Tablet PO BEDTIME PRN Constipation Sodium Chloride 3 ml 01/12/21 08:00 01/13/21 09:06 0.9 % Sodium Chloride Flush 3 Ml Syringe IVFLUSH Not Given QSHIFT [facility], [facility]1983 Time Spent With Patient Time: Total time spent is greater than 50% in coordination of care (as documented) at patient's floor/unit and/or counseling patient: Time with patient: 15 - 24 minutes Progress Note: Quality Stroke Does the patient have a stroke diagnosis?: No Procedures Date of Service Date of Service: 01/13/21
--- NOTE | 2021-01-13 14:38 | P.PNIM_ITS ---
Progress Note: A&P (1) Paroxysmal atrial fibrillation: Status: Acute (2) NSTEMI (non-ST elevated myocardial infarction): Status: Acute Assessment and Plan: 65-year-old male with a past medical history of hypertension, hyperlipidemia, coronary artery disease status post CABG, peripheral vascular disease status post bypass, on Eliquis; substance abuse, early dementia/forgetfulness, tobacco dependence presented to the hospital with a chief complaint of seizure episode. NSTEMI h/o CAD; cocaine + no chest pain Continue heparin drip Cardiology following Echocardiogram showed mildly reduced LV systolic function with regional wall m otion abnormality, grade 2 diastolic dysfunction, EF 45-50% Aflutter. Now in normal sinus rhythm h/o PAF continue AC with heparin, resume eliquis after 48 hrs of heparin Seizure Reportedly tonic-clonic in nature. s/p ativan in ED Seizure precautions, aspiration precautions. Ativan p.r.n. for seizure. CT head showed with old infarct with focal encephalomalacia in the left temporal occipital lobe and left frontal lobe.? No acute intracranial pathology Seen by Neurology, if patient has future seizure activity (outside of drug use) recommend Keppra 500 mg b.i.d. Avoid driving, bathing/swimming alone et cetera Drug overdose, not interested in quitting drugs Tox screen positive for opiates, fentanyl, cocaine s/p Narcan Addiction Medicine consult. CXR showing new interstitial lung markings No respiratory symptoms.? No clinical CHF at this time. If patient spikes fever consider treatment for aspiration History of CAD s/p CABG/peripheral vascular disease s/p bypass surgery/CVA:? Continue home aspirin statin, beta-nina, Plavix Code status:? Full code. DVT ppx - heparin Attending-? Sarahapaclementine Subjective Subjective Date of Service: 01/13/21 Review of Systems Follow up NSTEMI No chest pain Physical Exam Vital Signs: Vital Signs: Last Vital Signs Temp 97.9 F 01/13/21 12:00 Pulse 57 01/13/21 12:00 Resp 16 01/13/21 12:00 BP 101/71 01/13/21 12:00 Pulse Ox 96 01/13/21 12:00 Body Mass Index 22.1 Appearing in no acute distress lung sounds are clear to auscultation heart regular rate rhythm, clear S1, S2 positive bowel sounds, abdomen is soft, nontender neuro patient is alert x3, no focal deficits Objective Data Current Medications Generic Name Dose Route Start Last Admin Trade Name Homer PRN Reason Stop Dose Admin Acetaminophen 650 mg 01/12/21 03:45 Acetaminophen 325 Mg Tablet PO Q6H PRN Pain, Mild (Pain Scale 1-3) Aspirin 81 mg 01/12/21 09:00 01/13/21 09:06 Aspirin Enteric Coated 81 Mg Tablet.Dr PO 81 mg DAILY CARLIE Administration Atorvastatin Calcium 40 mg 01/12/21 21:00 01/12/21 21:09 Atorvastatin Calcium 40 Mg Tablet PO 40 mg BEDTIME CARLIE Administration Clonidine HCl 0.1 mg 01/12/21 09:00 01/13/21 09:06 Clonidine Hcl 0.1 Mg Tablet PO 0.1 mg BID CARLIE Administration Protocol Heparin Sodium (Porcine) 5,300 unit 01/12/21 03:34 Heparin Sodium,Porcine 5,000 Unit/Ml Vial IVPUSH PROTOCOL BOLUS PRN 80 unit/kg - Heparin Protocol Protocol Heparin Sodium (Porcine) 2,650 unit 01/12/21 03:34 01/13/21 10:15 Heparin Sodium,Porcine 5,000 Unit/Ml Vial IVPUSH 2,650 unit PROTOCOL BOLUS PRN Administration 40 unit/kg - Heparin Protocol Protocol Heparin Sodium (Porcine) 2,600 unit 01/12/21 03:45 Heparin Sodium,Porcine 5,000 Unit/Ml Vial 40 unit/kg (2600 unit) IVPUSH PROTOCOL BOLUS PRN 40 unit/kg - Heparin Protocol Protocol Heparin Sodium (Porcine) 5,300 unit 01/12/21 03:45 Heparin Sodium,Porcine 5,000 Unit/Ml Vial 80 unit/kg (5300 unit) IVPUSH PROTOCOL BOLUS PRN 80 unit/kg - Heparin Protocol Protocol Heparin Sodium/Sodium Chloride 25,000 unit in 250 mls @ 0 mls/hr 01/12/21 03:30 01/13/21 10:16 IVCONT 8 units/kg/hr .Q0M CARLIE 5.28 mls/hr Titration Protocol Per Protocol Dextrose/Sodium Chloride 1,000 mls @ 50 mls/hr 01/12/21 03:45 01/12/21 22:42 D51/2ns IVCONT 50 mls/hr .Q20H CARLIE Administration Heparin Sodium/Sodium Chloride 25,000 unit in 250 mls @ 0 mls/hr 01/12/21 03:45 IVCONT .Q0M [facility] Protocol Per Protocol Lorazepam 1 mg 01/12/21 03:54 Lorazepam 2 Mg/Ml Vial IVPUSH Q2H PRN Seizures Melatonin 6 mg 01/12/21 03:45 Melatonin 3 Mg Tablet PO BEDTIME PRN Insomnia Metoprolol Tartrate 25 mg 01/12/21 21:00 01/13/21 09:06 Metoprolol Tartrate 25 Mg Tablet PO 25 mg BID CARLIE Administration Protocol Nitroglycerin 0.4 mg 01/12/21 04:00 Nitroglycerin 0.4 Mg Tab.Subl SUBLINGUAL Q5M PRN CHEST PAIN Omeprazole 20 mg 01/12/21 09:00 01/13/21 09:06 Omeprazole 20 Mg Capsule.Dr PO 20 mg DAILY [facility] Administration Senna 17.2 mg 01/12/21 03:45 Sennosides 8.6 Mg Tablet PO BEDTIME PRN Constipation Sodium Chloride 3 ml 01/12/21 08:00 01/13/21 09:06 0.9 % Sodium Chloride Flush 3 Ml Syringe IVFLUSH Not Given QSHIFT [facility] Labs CBC & Chem 7: 01/13/21 05:33 01/13/21 05:33 Labs: Laboratory Results - last 24 hr 01/12/21 01/13/21 01/13/21 16:44 00:15 02:08 MCV MCH MCHC RDW Plt Count MPV Absolute Nucleated RBC Nucleated RBC % (auto) PT INR APTT 50.5 H D PTT (Heparin Protocol) 110.1 H* D 55.6 D Anion Gap Estim Creat Clear Calc Estimated GFR Random Glucose Calcium 01/13/21 01/13/21 01/13/21 05:33 05:33 05:33 MCV 92.8 MCH 32.8 MCHC 35.4 RDW 14.5 Plt Count 159 L MPV 11.0 Absolute Nucleated RBC 0.000 Nucleated RBC % (auto) 0.0 PT 13.0 INR 1.1 APTT PTT (Heparin Protocol) Anion Gap 11 L Estim Creat Clear Calc 86.9 Estimated GFR > 60 Random Glucose 97 Calcium 8.2 L 01/13/21 09:00 MCV MCH MCHC RDW Plt Count MPV Absolute Nucleated RBC Nucleated RBC % (auto) PT INR APTT PTT (Heparin Protocol) 37.0 L D Anion Gap Estim Creat Clear Calc Estimated GFR Random Glucose Calcium Microbiology Microbiology Results: Microbiology 01/12/21 02:51 Blood - Venous Blood Culture - Preliminary No growth after 24 hours. 01/12/21 02:50 Blood - Venous Blood Culture - Preliminary No growth after 24 hours. Quality Stroke Does the patient have a stroke diagnosis?: No VTE Prior VTE?: No VTE Risk Level:: Medical - moderate - high VTE Device Contraindication: Treatment Not Indicated VTE Drug Contraindication: N/A - Med Ordered
[2021-01-13] MEDS: Dextrose 5 % and 0.45 % NaCl 1,000 ML 50 ML IVCONT (16:13)
[2021-01-13] MEDS: Heparin Sodium,Porcine/1/2NS 25,000 UNIT/250 ML IV.SOLN 5.28 UNIT IVCONT (16:13)
[2021-01-13 16:26] LABS: PTT Heparin Drip 58.6 SEC (53-77.9)
[2021-01-13] MEDS: Atorvastatin Calcium 40 MG TABLET PO (20:15)
[2021-01-13 22:34] LABS: PTT Heparin Drip 47.6 SEC (53-77.9)
[2021-01-14 03:58] VITALS: BP 144/60; PULSE 55; RESP 18; TEMP 36.8; O2SAT 97
[2021-01-14 05:22] LABS: Anion Gap 13 (12-20); Blood Urea Nitrogen 6 mg/dL (9-16); Calcium 8.4 mg/dL (8.4-10.2); Carbon Dioxide 21 mmol/L (22-29); Chloride 111 mmol/L (96-108); Creatinine Clr Calc Pharmacy 75.3; Estimated Glomerular Filt Rate > 60; Glucose Random 109 mg/dL (60-115); PTT Heparin Drip 72.4 SEC (53-77.9); Potassium 3.6 mmol/L (3.3-5.1); Sodium 141 mmol/L (135-145)
[2021-01-14 07:36] VITALS: BP 173/75; PULSE 69; RESP 18; TEMP 36.7; O2SAT 97
[2021-01-14 08:22] LABS: Troponin-I High Sensitivity 1336.2 ng/L (<3.5-35.0)
[2021-01-14 08:26] VITALS: BP 173/75; PULSE 69
[2021-01-14] MEDS: Omeprazole 20 MG CAPSULE.DR PO (08:26)
[2021-01-14] MEDS: cloNIDine HCL 0.1 MG TABLET PO (08:26)
[2021-01-14 08:27] VITALS: BP 173/75; PULSE 69
[2021-01-14] MEDS: Metoprolol Tartrate 25 MG TABLET PO (08:27)
[2021-01-14] MEDS: Aspirin Enteric Coated 81 MG TABLET.DR PO (08:27)
[2021-01-14 11:06] VITALS: BP 158/73; PULSE 57; RESP 18; TEMP 36.8; O2SAT 97
--- NOTE | 2021-01-14 11:39 | PM.DS ---
DS: Providers Provider Date of Service: 01/14/21 <Nini Villegas NP - Last Filed: 01/14/21 11:50> Date of admission: 01/12/21 03:46 <Nini Villegas NP - Last Filed: 01/14/21 11:50> Primary care physician: Karla Seo NP <Nini Villegas NP - Last Filed: 01/14/21 11:50> Consults: 01/12/21 03:45 Consult to Cardiology Routine Consulting Provider: Gustavo Cox Reason for consultation: aflutter; positive troponins 01/12/21 03:50 Consult to Neurology Routine Consulting Provider: [facility] Reason for consultation: seizures <Nini Villegas NP - Last Filed: 01/14/21 11:50> Attending physician on discharge: Arthur Berg <Nini Villegas NP - Last Filed: 01/14/21 11:50> Discharging clinician: Nini Villegas <Nini Villegas NP - Last Filed: 01/14/21 11:50> DS: Diagnosis Discharge Diagnosis (1) Paroxysmal atrial fibrillation: Status: Acute <Nini Villegas NP - Last Filed: 01/14/21 11:50> (2) NSTEMI (non-ST elevated myocardial infarction): Status: Acute <Nini Villegas NP - Last Filed: 01/14/21 11:50> DS: Summary Hospital Course Hospital Course: HP as per admitting provider 65-year-old male with a past medical history of hypertension, hyperlipidemia, coronary artery disease status post CABG, peripheral vascular disease a status post bypass, history of CVA, patient on Eliquis; substance abuse, tobacco dependence presented to the hospital with a chief complaint of seizure. Patient on presentation was agitated and received Ativan in the ER.? When I tried to interview the patient patient was completely lethargic and sleepy secondary to the Ativan. Per RN patient on presentation was very uncooperative and agitated; noted to be in a flutter with rapid ventricular response; received Ativan and metoprolol; I spoke to the patient's over the phone Who mentioned that patient had been heroin couple hours prior to the episode. He was sitting in the chair and suddenly he fell down and had tonic clonic seizure with possible tongue bite and urinary incontinence.? Denies any prior episodes of seizures as per the . Still smokes cigarettes. EMS was called who has given the patient Narcan with improvement in mental status; subsequently brought to the ER for further evaluation. As per the patient's patient has been compliant with his home medications. ER course: Per ER team patient was initially alert awake, uncooperative and agitated.? Received Ativan.? EKG showed a flutter with rapid ventricular response; received metoprolol IV. Heart rate subsequently improved but patient noted to be in a flutter. All labs noted to have elevated troponin-ER doctor discussed with Dr. Talley from Cardiology who recommended to start the patient on heparin drip and admitted to the [facility], did not recommend transfer at this time . NSTEMI. patient started on IV heparin drip, seen evaluated by Cardiology. Heparin drip was stopped after 48 hours. Patient was going to be restarted on his Eliquis however, unfortunately he decided to leave against medical advice prior to completing therapy. He is aware and demonstrated understanding of the risks of leaving against medical advice including . All efforts were made to address his issues however he still decided to leave against medical advice. he should follow-up with his towel stretcher as an outpatient and hopefully he will return to the hospital P develops further symptoms including chest pain. <Nini Villegas NP - Last Filed: 01/14/21 11:50> Time Spent with Patient Time attestation: Total time spent providing and/or coordinating discharge services: <Nini Villegas NP - Last Filed: 01/14/21 11:50> Discharge coordination time: Less than 30 minutes <Nini Villegas NP - Last Filed: 01/14/21 11:50> Quality: Stroke Does the patient have a stroke diagnosis?: No <Nini Villegas NP - Last Filed: 01/14/21 11:50> Physical Exam Vital Signs: Vital Signs: Last Vital Signs Temp 98.2 F 01/14/21 11:06 Pulse 57 01/14/21 11:06 Resp 18 01/14/21 11:06 BP 158/73 H 01/14/21 11:06 Pulse Ox 97 01/14/21 11:06 Body Mass Index 22.1 <DARNELL Kuhn Last Filed: 01/14/21 11:50> Unable to assess as patient left against medical advice <Nini Villegas NP - Last Filed: 01/14/21 11:50> DS: Data Data Completed and Pending Labs on day of discharge: Laboratory Results - last 24 hr 01/13/21 01/13/21 01/13/21 15:03 16:12 22:15 PTT (Heparin Protocol) 58.6 D 47.6 L Sodium Potassium Chloride Carbon Dioxide Anion Gap BUN Creatinine Estim Creat Clear Calc Estimated GFR Random Glucose Calcium Troponin I High Sens 2230.1 H* 01/14/21 01/14/21 01/14/21 04:52 04:52 07:46 PTT (Heparin Protocol) 72.4 D Sodium 141 Potassium 3.6 Chloride 111 H Carbon Dioxide 21 L Anion Gap 13 BUN 6 L Creatinine 0.90 Estim Creat Clear Calc 75.3 Estimated GFR > 60 Random Glucose 109 Calcium 8.4 Troponin I High Sens 1336.2 H* Preliminary micro results at discharge 01/12/21 02:51 Blood Culture - Preliminary Blood - Venous No growth after 48 hours. 01/12/21 02:50 Blood Culture - Preliminary Blood - Venous No growth after 48 hours. <Nini Villegas NP - Last Filed: 01/14/21 11:50> Discharge Plan Discharge Anticipated Discharge Date/Time: 01/14/21 11:36 <Nini Villegas NP - Last Filed: 01/14/21 11:50> Patient Disposition: Left Against Medical Advice <Nini Villegas NP - Last Filed: 01/14/21 11:50> Discharge Diagnosis: NSTMEMI <Nini Villegas NP - Last Filed: 01/14/21 11:50> NSTMEMI <Arthur Berg MD - Last Filed: 01/20/21 21:09> Referrals: Karla Seo NP [Primary Care Provider] - 1 Week <Nini Villegas NP - Last Filed: 01/14/21 11:50> Discharge Medications: Continued atorvastatin 40 mg tablet 40 mg PO BEDTIME RF: 0 clonidine HCl 0.1 mg tablet 0.1 mg PO BID RF: 0 nitroglycerin 0.4 mg tablet, sublingual 0.4 mg sublingual NEEDED RF: 0 omeprazole 20 mg capsule,delayed release(DR/EC) 20 mg PO DAILY RF: 0 metoprolol tartrate 25 mg tablet 25 mg PO BID RF: 0 Eliquis 5 mg tablet 5 mg PO BID RF: 0 aspirin 81 mg Tablet 81 mg PO DAILY RF: 0 No Action pentoxifylline 400 mg tablet extended release 1 tab PO BID RF: 0 <Nini Villegas NP - Last Filed: 01/14/21 11:50> Discharge Orders: Discharge Order (Routine); Ordered 01/14/21 Ordered By: Nini Villegas <Nini Villegas NP - Last Filed: 01/14/21 11:50> Care Plan Goals: Stop using heroin and cocaine which likely resulted in this NSTEMI <Nini Villegas NP - Last Filed: 01/14/21 11:50> Health Concerns: NSTEMI <Nini Villegas NP - Last Filed: 01/14/21 11:50> Plan of Treatment: Patient left against medical advice He should follow-up with his towel stretcher regarding this hospitalization <Nini Villegas NP - Last Filed: 01/14/21 11:50> Assessment: see discharge summary I saw patient and discussued findings, discharge plan and disposition with midlevel and I agree with the above <Nini Villegas NP - Last Filed: 01/14/21 11:50> Discharge Date/Time: 01/14/21 12:06 <Nini Villegas NP - Last Filed: 01/14/21 11:50>
--- NOTE | 2021-01-14 12:45 | MHC.CM.PN ---
pt left against medical advice
== END 2021-01-14 12:06 | disposition left against medical advice (07) | DRG 917 ==
LOC: HO.ED 04:34 → HO.EDOVER 06:11 → HO.IMC 13:54
PROVIDERS: Family Medicine; Physician Assistant Medical; Admitting Provider Hospitalist; Emergency Provider Emergency Medicine; PCP Nurse Practitioner Adult Health; Visit Provider Nurse Practitioner Acute Care
DX: T40.1X1A Poisoning by heroin, accidental (unintentional), initial encounter (principal); I21.4 Non-ST elevation (NSTEMI) myocardial infarction; I48.0 Paroxysmal atrial fibrillation; I25.10 Atherosclerotic heart disease of native coronary artery without angina pectoris; Z95.1 Presence of aortocoronary bypass graft; R56.9 Unspecified convulsions; F17.210 Nicotine dependence, cigarettes, uncomplicated; Y92.009 Unspecified place in unspecified non-institutional (private) residence as the place of occurrence of the external cause; Z71.6 Tobacco abuse counseling; Z79.01 Long term (current) use of anticoagulants; Z79.82 Long term (current) use of aspirin; Z79.899 Other long term (current) drug therapy
CPT/HCPCS: 36415; 70450; 71045; 80048; 80076; 80307; 81003; 82077; 82550; 83605; 83690; 83735; 83880; 84484; 85025; 85027; 85610; 85730; 87040; 87635; 93005; 93306; 96365; 96366; 96375; 96376; 99285; J2060; J3475

== ENCOUNTER 2021-01-18 15:25 | Inpatient (IN) | payer MEDICARE, SELFPAY ==
[2021-01-18] VITALS (15 sets, daily range): BP systolic 95–201; BP diastolic 46–127; PULSE 62–160; RESP 12–19; TEMP 35.3–36.6; O2SAT 93–100; BMI 24.4
--- NOTE | 2021-01-18 | ECG_ITS ---
Test Reason : troponin rising Blood Pressure : / mmHG Vent. Rate : 083 BPM Atrial Rate : 308 BPM P-R Int : 000 ms QRS Dur : 086 ms QT Int : 432 ms P-R-T Axes : 268 095 124 degrees QTc Int : 507 ms Atrial flutter with variable A-V block Rightward axis Anterior infarct , age undetermined ST & T wave abnormality, consider lateral ischemia ST elevation in Inferior leads Prolonged QT Abnormal ECG When compared with ECG of 18-JAN-2021 21:07, Vent. rate has decreased T wave inversion more evident in Lateral leads Referred By: Moira Roldan Electronically Signed By:ANIRUDH YI
--- NOTE | ~2021-01-18 | XR_ITS ---
EXAMINATION: XR CHEST CLINICAL INFORMATION: Confirm endotracheal tube placement. COMPARISON: Chest radiograph done earlier the same day. TECHNIQUE: Frontal view of the chest was obtained. FINDINGS: Endotracheal tube with the tip approximately 5 cm proximal to the viraj. Enterogastric tube in appropriate position. Right-sided central venous catheter in unchanged and appropriate position. Sternal wires and mediastinal surgical clips are redemonstrated. Possible small, layering right-sided pleural effusion, new when compared to the prior examination. Diffuse interstitial prominence is unchanged. No pneumothorax. Stable cardiomediastinal silhouette. XR/XR chest 1V IMPRESSION: Endotracheal tube with its tip approximately 5 cm proximal to the viraj. Additional support lines in appropriate position as above. Possible small, layering right-sided pleural effusion, new when compared to the prior examination.
--- NOTE | ~2021-01-18 | XR_ITS ---
EXAMINATION: XR CHEST CLINICAL INFORMATION: Post central line COMPARISON: CT chest 01/18/2021 and chest radiograph 01/12/2021 TECHNIQUE: Frontal view of the chest was obtained. FINDINGS: Heart size normal. No evidence of CHF. No infiltrates, pleural effusions or lung masses are seen. Some chronic increased reticular markings are present seen previously as well. An endotracheal tube is present about 4 cm above the viraj. A right IJ line is present with its tip in the proximal SVC. No pneumothorax is present. An NG tube is present with its tip in the stomach XR/XR chest 1V IMPRESSION: No acute intrathoracic disease. All tubes and lines in good position.
--- NOTE | ~2021-01-18 | CT_ITS ---
EXAMINATION: CT CHEST, ABDOMEN AND PELVIS WITHOUT CONTRAST CLINICAL INFORMATION: Fall, cardiac arrest. COMPARISON: None TECHNIQUE: 5 mm thin axial and reformatted 3 mm thin axial and coronal images of chest, abdomen and pelvis were obtained without contrast. DLP: 1342 mGy-cm FINDINGS: CHEST: The lungs are well expanded with mild focal parenchymal thickening right upper lobe posterior segment adjacent to the major fissure axial image 23/7. There are prominent interstitial markings throughout both lungs with dependent bilateral upper lobe subpleural densities question parenchymal edema or contusion. Similar findings are seen in the dependent segments of both lower lobes, superior and basilar segments. There is consolidation/atelectasis in the basilar segments of both lower lobes. The thyroid lobes are symmetric and normal. There is an endotracheal tube with its tip in the distal trachea in satisfactory position. Reactionary pretracheal and para-aortic lymph nodes seen with largest lymph node 1.4 x 0.9 cm on axial image 23/5. There is an enteric tube with its tip at the GE junction and needs to be advanced at least by 10 cm. There is minimal right pleural effusion. The axilla and the chest wall appear unremarkable. There are median sternotomy sutures from previous intervention. No lytic or sclerotic process seen. There is mild ventral spondylosis lower dorsal spine. ABDOMEN AND PELVIS: Visualized liver and intrahepatic ducts appear normal. The gallbladder is contracted but without any visible radiopaque calculi. Visualized spleen, pancreas and bilateral adrenal glands are unremarkable. Both kidneys are normal size, shape. There are extensive vascular calcifications in the renal hilum and the renal arteries and at the renal ostia bilaterally with moderate stenosis. There are moderate atherosclerotic changes and calcification of abdominal aorta. Mild aneurysmal dilatation of distal abdominal aorta just above the common iliac bifurcation. Both common iliac arteries are heavily calcified. There is a left axillary femoral Hartshorn-Anthony graft along the left chest wall. Also visualized is a left femoral to right femoral Hartshorn-Anthony graft. There is a supraumbilical anterior abdominal wall hernia containing fat on axial image 46/6. There is scattered stool and gas seen throughout the colon without distention. The small bowel loops are normal caliber. Moderate gas is seen in the stomach likely secondary to CP artifact. No free air or free fluid seen. Imaging through the pelvis reveals a mildly distended urinary bladder. No free fluid. Bone windows reveal degenerative disc changes with vacuum disc phenomena and moderate spondylosis L5-S1, L4-L5 and L3-L4 disc levels and thoracic spine T10-T11 and T11-T12 disc levels. CT/CT chest wo con IMPRESSION: There is bilateral dependent upper lobe and lower lobe bilateral pulmonary edema or contusions. In addition there is bilateral lower lobe consolidation and atelectasis and small right pleural effusion. There is focal parenchymal thickening right upper lobe adjacent to the major fissure likely atelectasis. There is a small right pleural effusion. There is extensive coronary artery, abdominal aorta and common iliac artery calcifications. There is an endotracheal tube with its tip at the GE junction and needs to be advanced by 10 cm. The endotracheal tube tip is in distal trachea in satisfactory position. There is a Hartshorn-Anthony graft extending from the left axillary artery to the left common femoral artery and a second Hartshorn-Anthony graft extending from left femoral to right femoral artery. Degenerative disc changes as discussed above.
--- NOTE | ~2021-01-18 | CT_ITS ---
EXAMINATION: CT HEAD WITHOUT CONTRAST CLINICAL INFORMATION: Cardiac arrest COMPARISON: Previous head CT most recent 01/12/2021 TECHNIQUE: Contiguous axial imaging was performed from the skull base to vertex without intravenous administration of contrast. This CT examination was performed using dose optimization techniques as appropriate, variously including the following: *Automated exposure control *Adjustment of mA and/or kV according to patient size (this includes techniques or standardized protocols for targeted exams where dose is matched to indication/reason for exam; i.e. extremities or head) *Use of iterative reconstruction technique DLP: 678 mGy-cm FINDINGS: There is no evidence of an extra-axial collection. There is no evidence of intra-axial or extra-axial hemorrhage. The ventricles and extra-axial CSF spaces are slightly prominent suggestive of mild generalized atrophy. There are old left occipital and temporal infarcts, old left periventricular white matter left frontal infarcts and old left basal ganglia lacunar infarct that appear unchanged. No mass, mass effect or acute infarct is seen. Review at bone windows is normal. No skull fracture is seen. There is evidence of bilateral maxillary sphenoid and ethmoid sinus disease. This is increased from previous exam. There is increased soft tissue in the posterior nasal cavity and nasopharynx, question representing polyps. The mastoid air cells and middle ears are clear. CT/CT head/brain wo con IMPRESSION: No acute intracranial findings. 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 Increasing sinus disease. Question polyps in the posterior nasal cavity/nasopharynx.
--- NOTE | ~2021-01-18 | CT_ITS ---
EXAMINATION: CT CERVICAL SPINE WITHOUT CONTRAST CLINICAL INFORMATION: Fall. Cardiac arrest. COMPARISON: None TECHNIQUE: Axial images through the cervical spine without contrast. Sagittal and coronal instructions on the technologist workstation were performed. This CT examination was performed using dose optimization techniques as appropriate, variously including the following: *Automated exposure control *Adjustment of mA and/or kV according to patient size (this includes techniques or standardized protocols for targeted exams where dose is matched to indication/reason for exam; i.e. extremities or head) *Use of iterative reconstruction technique DLP: 566 mGy-cm FINDINGS: Bone alignment is normal. No fracture or dislocation is seen. There is evidence of multilevel degenerative spondylosis from C3-C4 o C6-C7. There is disc space narrowing from C4-C5 to C6-C7. There are degenerative changes at the C1 dens articulation. Prevertebral soft tissues are normal. There is bilateral carotid calcification. There are endotracheal and orogastric tubes. There are increased interstitial markings seen at the lung apices. There is pansinusitis. CT/CT cervical spine wo con IMPRESSION: No fracture or dislocation. Degenerative changes.
--- NOTE | ~2021-01-18 | XR_ITS ---
EXAMINATION: XR CHEST CLINICAL INFORMATION: White indication right the right lower quadrant COMPARISON: Chest 01/18/2021 TECHNIQUE: 2 views of the chest were obtained. FINDINGS: The lungs are well-expanded and clear. The heart size and pulmonary vascularity is normal. No gross bony abnormality seen. The endotracheal tube, enteric tube and right jugular central catheter has been removed. The heart size and pulmonary vascularity is normal. There are median sternotomy sutures from previous intervention. No gross bony abnormality seen. XR/XR chest 2V IMPRESSION: Support lines and catheters have been removed. The lungs are clear.
--- NOTE | ~2021-01-18 | CT_ITS ---
EXAMINATION: CT CHEST, ABDOMEN AND PELVIS WITHOUT CONTRAST CLINICAL INFORMATION: Fall, cardiac arrest. COMPARISON: None TECHNIQUE: 5 mm thin axial and reformatted 3 mm thin axial and coronal images of chest, abdomen and pelvis were obtained without contrast. DLP: 1342 mGy-cm FINDINGS: CHEST: The lungs are well expanded with mild focal parenchymal thickening right upper lobe posterior segment adjacent to the major fissure axial image 23/7. There are prominent interstitial markings throughout both lungs with dependent bilateral upper lobe subpleural densities question parenchymal edema or contusion. Similar findings are seen in the dependent segments of both lower lobes, superior and basilar segments. There is consolidation/atelectasis in the basilar segments of both lower lobes. The thyroid lobes are symmetric and normal. There is an endotracheal tube with its tip in the distal trachea in satisfactory position. Reactionary pretracheal and para-aortic lymph nodes seen with largest lymph node 1.4 x 0.9 cm on axial image 23/5. There is an enteric tube with its tip at the GE junction and needs to be advanced at least by 10 cm. There is minimal right pleural effusion. The axilla and the chest wall appear unremarkable. There are median sternotomy sutures from previous intervention. No lytic or sclerotic process seen. There is mild ventral spondylosis lower dorsal spine. ABDOMEN AND PELVIS: Visualized liver and intrahepatic ducts appear normal. The gallbladder is contracted but without any visible radiopaque calculi. Visualized spleen, pancreas and bilateral adrenal glands are unremarkable. Both kidneys are normal size, shape. There are extensive vascular calcifications in the renal hilum and the renal arteries and at the renal ostia bilaterally with moderate stenosis. There are moderate atherosclerotic changes and calcification of abdominal aorta. Mild aneurysmal dilatation of distal abdominal aorta just above the common iliac bifurcation. Both common iliac arteries are heavily calcified. There is a left axillary femoral [place] graft along the left chest wall. Also visualized is a left femoral to right femoral [place] graft. There is a supraumbilical anterior abdominal wall hernia containing fat on axial image 46/6. There is scattered stool and gas seen throughout the colon without distention. The small bowel loops are normal caliber. Moderate gas is seen in the stomach likely secondary to CP artifact. No free air or free fluid seen. Imaging through the pelvis reveals a mildly distended urinary bladder. No free fluid. Bone windows reveal degenerative disc changes with vacuum disc phenomena and moderate spondylosis L5-S1, L4-L5 and L3-L4 disc levels and thoracic spine T10-T11 and T11-T12 disc levels. CT/CT abdomen pelvis wo con IMPRESSION: There is bilateral dependent upper lobe and lower lobe bilateral pulmonary edema or contusions. In addition there is bilateral lower lobe consolidation and atelectasis and small right pleural effusion. There is focal parenchymal thickening right upper lobe adjacent to the major fissure likely atelectasis. There is a small right pleural effusion. There is extensive coronary artery, abdominal aorta and common iliac artery calcifications. There is an endotracheal tube with its tip at the GE junction and needs to be advanced by 10 cm. The endotracheal tube tip is in distal trachea in satisfactory position. There is a [place] graft extending from the left axillary artery to the left common femoral artery and a second [place] graft extending from left femoral to right femoral artery. Degenerative disc changes as discussed above.
[2021-01-18] MEDS: Midazolam HCl/PF 2 MG/2 ML VIAL 4 MG IVPUSH ×3 (15:30→20:28)
--- NOTE | 2021-01-18 15:37 | ECG_ITS ---
Test Reason : cardiac arrest Blood Pressure : / mmHG Vent. Rate : 144 BPM Atrial Rate : 084 BPM P-R Int : 000 ms QRS Dur : 098 ms QT Int : 364 ms P-R-T Axes : 000 095 101 degrees QTc Int : 563 ms Supraventricular tachycardia Rightward axis Inferior infarct , possibly acute Anterior infarct , age undetermined T wave abnormality, consider lateral ischemia ACUTE IA / STEMI Consider right ventricular involvement in acute inferior infarct Abnormal ECG When compared with ECG of 18-JAN-2021 15:38, ST elevation now present in Inferior leads Referred By: Moira Roldan Electronically Signed By:ANIRUDH YI
[2021-01-18] MEDS: dilTIAZem HCL 50 MG/10 ML VIAL 10 MG IVPUSH ×2 (15:45→15:54)
--- NOTE | 2021-01-18 15:46 | ED.CPR ---
HPI - CPR General Stated Complaint: WITNESSED CARDIAC ARREST Time Seen by Provider: 01/18/21 15:35 Source: EMS and old records reviewed Mode of arrival: EMS Limitations: other (unresponsive) History of Present Illness HPI narrative: 65 yo male with hx of aflutter on eliquis, reported recent seizure possibly associated with heroin/cocaine abuse, PVD s/p bypass, CAD s/p CABG comes in with EMS with reported witnessed arrest in front of friend friend thought he was having a seizure, EMS reported no pulses and he was in vfib patient shocked x 1 200J, organized rhythm and pulses, bagged en route, given 2mg narcan complaint: seizure and other (collapsed EMS reports lost pulse and vfib) Onset (ago): minute(s) Timing confirmed by: other (friend) Place: home Bystander CPR performed: No AED applied by bystander/first aid director: Yes Shock advised: Yes (EMS notes vfib) Number of shocks delivered: 1 Initial findings in the field: unresponsive, agonal, no pulse and VTACH/VFIB ROSC in the field: Yes Associated injuries: No Associated symptoms: other (?seizure activity) Known history of: CAD, [place] and other (substance abuse, aflutter) Treatments prior to arrival: BMV and defibrillated shocks # (1) Related Data Home Medications Medication Instructions Recorded Confirmed apixaban 5 mg tablet (Eliquis) 5 mg PO BID 01/12/21 01/18/21 aspirin 81 mg tablet 81 mg PO DAILY 01/12/21 01/18/21 atorvastatin 40 mg tablet 40 mg PO BEDTIME 01/12/21 01/18/21 clonidine HCl 0.1 mg tablet 0.1 mg PO BID 01/12/21 01/18/21 metoprolol tartrate 25 mg tablet 25 mg PO BID 01/12/21 01/18/21 nitroglycerin 0.4 mg sublingual 0.4 mg SUBLINGUAL NEEDED 01/12/21 01/18/21 tablet omeprazole 20 mg capsule,delayed 20 mg PO DAILY 01/12/21 01/18/21 release pentoxifylline 400 mg 1 tab PO BID 01/18/21 01/18/21 tablet,extended release Allergies Allergy/AdvReac Type Severity Reaction Status Date / Time No Known Allergies Allergy Unverified 01/12/21 01:03 Review of Systems Review of Systems: ROS unable to be obtained due to altered mental status PMFSH Past Medical History Medical History CAD (coronary artery disease) Drug abuse Heroin use Paroxysmal atrial fibrillation PVD (peripheral vascular disease) Surgical History S/P CABG x 2 Social History Social History Household Members: Spouse Housing: Unknown / Unable to assess Do you presently have visiting nurse or other home services: No Alcohol intake: never Patient Tobacco Use Status: Current everyday Tobacco user Tobacco use type: Cigarette Cigarettes Per Day: 5 e-Cigarette/Vaping Use: Never Used Substance Use Type: Crack/Cocaine, Heroin, IV Drugs and Opiates Advance Directives: Yes Advance Directives on File: Yes Advance Directives Date on File: 01/12/21 service: No Current occupational status: retired Physical Exam Vital Signs: Vital Signs: Last Vital Signs Pulse 160 H 01/18/21 16:42 BP 153/104 H 01/18/21 16:42 Appearance: Severe distress unresponsive Eyes: Pupils 3mm sluggish, gaze deviated to the left with some persistent horizontal nystagmus ENT: Pharynx normal. no gag reflex noted Neck: Normal inspection. Neck supple. CVS: irregular and tachycardia Pulses normal. Respiratory: Agonal respirations Abdomen: Soft and no signs of trauma Skin: Skin warm and dry. pale skin color. Extremities: bilateral 1 to 2+ pitting L > R lower extremity edema. Neuro: R arm posturing with abnormal movements, L arm no response to painful stimuli, fine tremors of chest/neck noted Course Course Course Narrative: on dilt gtt, IV keppra ordered, propofol ordered, planned admit to the ICU [place] contact [phone] - no response attempted to reach x 2, no voicemail available hypotension due to medications and propofol not infection or severe sepsis, WBC count likely acute phase reactant and stress response not infection or severe sepsis baseline WBC is 16 put on william gtt per Dr. Potter ice packs ordered for groin and axilla - Letitia ALFORD notified MDM - Cardiac Arrest/CPR MDM Narrative Medical decision making narrative: 65 yo male with aflutter on eliquis, heroin/cocain abuse, reported recent seizure activity seen here 01/12-01/14 left AMA (afib/seizure activity) at this time possible substance abuse precipitating vfib arrest vs seizure activity and aflutter that mimicked vfib - will need labs, EKG, franco, CT dubon scan - admit to ICU Lab Data Result diagrams: 01/18/21 17:00 01/18/21 17:00 Labs: Lab Results 01/18/21 01/18/21 01/18/21 Range/Units 17:00 17:00 17:00 WBC 26.2 H (4.8-10.8) X10*3/uL RBC 3.92 L (4.60-5.80) X10*6/uL Hgb 12.7 L (14.0-18.0) g/dl Hct 37.5 L (42-52) % MCV 95.7 (80-98) fL MCH 32.4 (27.0-33.0) pg MCHC 33.9 (31.0-36.0) g/dl RDW 15.1 (11.0-16.0) % Plt Count 188 (160-400) X10*3/uL MPV 9.0 L (9.4-12.4) fL Immature Gran % (Auto) 1.2 H (0.0-0.4) % Neut % (Auto) 80.2 H (45-73) % Lymph % (Auto) 7.6 L (20-40) % [place] % (Auto) 8.7 (2-11) % Eos % (Auto) 2.0 (0-4) % Baso % (Auto) 0.3 (0-2) % Lymph # (Auto) 2.0 (1.2-4.9) X10*3/uL [place] # (Auto) 2.3 H (0.1-1.2) X10*3/uL Eos # (Auto) 0.5 H (0.0-0.4) X10*3/uL Baso # (Auto) 0.1 (0.0-0.2) X10*3/uL Abs Immat Gran (auto) 0.31 H (0.00-0.03) X10*3/uL Absolute Neuts (auto) 21.0 H (2.0-8.3) X10*3/uL Absolute Nucleated RBC 0.000 (0.0-0.012) X10*3/uL Nucleated RBC % (auto) 0.0 (0.0-0.2) /100WBC Smear Tech's Comments VERIFIED PT 14.2 H (9.9-13.0) SEC INR 1.2 H (0.9-1.1) APTT 34.8 D (24.1-38.0) SEC O2 Saturation % ABG pH at Pt Temp (7.35-7.45) ABG pCO2 at Pt Temp (32-45) mmHg ABG pO2 at Pt Temp (83-108) mmHg ABG HCO3 (22-26) mmol/L ABG Base Excess (Actual) mmol/L Sodium 136 (135-145) mmol/L Potassium 3.7 (3.3-5.1) mmol/L Chloride 105 (96-108) mmol/L Carbon Dioxide 23 (22-29) mmol/L Anion Gap 12 (12-20) BUN 13 D (9-16) mg/dL Creatinine 0.96 (0.5-1.4) mg/dL Estim Creat Clear Calc TNP Estimated GFR > 60 Random Glucose 193 H D (60-115) mg/dL Lactic Acid (0.5-2.0) mmol/L Calcium 8.1 L (8.4-10.2) mg/dL Magnesium (1.6-2.6) mg/dL Total Bilirubin (0.0-1.0) mg/dL Direct Bilirubin (0.0-0.5) mg/dL AST (5-37) U/L ALT (0-40) U/L Alkaline Phosphatase (39-117) U/L Total Creatine Kinase 101 D (38-174) U/L Troponin I High Sens (<3.5-35.0) ng/L Total Protein (6.5-8.0) g/dL Albumin (3.5-5.0) g/dL Urine Color Urine Appearance Urine pH (5.0-8.0) Ur Specific [place] (1.005-1.025) Urine Protein (NEG-TRACE) MG/DL Urine Glucose (UA) (NEG) MG/DL Urine Ketones (NEG) MG/DL Urine Blood (NEG) Urine Nitrite (NEG) Ur Leukocyte Esterase (NEG) Urine RBC (0) /HPF Urine WBC (0-4) /HPF Ur Squamous Epith Cells /LPF Urine Bacteria /LPF Urine Opiates Screen (Not Detect) Urine Fentanyl Screen (Not Detect) Ur Barbiturates Screen (Not Detect) Ur Phencyclidine Scrn (Not Detect) Ur Amphetamines Screen (Not Detect) U Benzodiazepines Scrn (Not Detect) Urine Cocaine Screen (Not Detect) U Marijuana (THC) Screen (Not Detect) Ethyl Alcohol mg/dL 01/18/21 01/18/21 01/18/21 Range/Units 17:00 17:00 17:00 WBC (4.8-10.8) X10*3/uL RBC (4.60-5.80) X10*6/uL Hgb (14.0-18.0) g/dl Hct (42-52) % MCV (80-98) fL MCH (27.0-33.0) pg MCHC (31.0-36.0) g/dl RDW (11.0-16.0) % Plt Count (160-400) X10*3/uL MPV (9.4-12.4) fL Immature Gran % (Auto) (0.0-0.4) % Neut % (Auto) (45-73) % Lymph % (Auto) (20-40) % [place] % (Auto) (2-11) % Eos % (Auto) (0-4) % Baso % (Auto) (0-2) % Lymph # (Auto) (1.2-4.9) X10*3/uL [place] # (Auto) (0.1-1.2) X10*3/uL Eos # (Auto) (0.0-0.4) X10*3/uL Baso # (Auto) (0.0-0.2) X10*3/uL Abs Immat Gran (auto) (0.00-0.03) X10*3/uL Absolute Neuts (auto) (2.0-8.3) X10*3/uL Absolute Nucleated RBC (0.0-0.012) X10*3/uL Nucleated RBC % (auto) (0.0-0.2) /100WBC Smear Tech's Comments PT (9.9-13.0) SEC INR (0.9-1.1) APTT (24.1-38.0) SEC O2 Saturation % ABG pH at Pt Temp (7.35-7.45) ABG pCO2 at Pt Temp (32-45) mmHg ABG pO2 at Pt Temp (83-108) mmHg ABG HCO3 (22-26) mmol/L ABG Base Excess (Actual) mmol/L Sodium (135-145) mmol/L Potassium (3.3-5.1) mmol/L Chloride (96-108) mmol/L Carbon Dioxide (22-29) mmol/L Anion Gap (12-20) BUN (9-16) mg/dL Creatinine (0.5-1.4) mg/dL Estim Creat Clear Calc Estimated GFR Random Glucose (60-115) mg/dL Lactic Acid 1.6 (0.5-2.0) mmol/L Calcium (8.4-10.2) mg/dL Magnesium 2.0 (1.6-2.6) mg/dL Total Bilirubin 0.5 (0.0-1.0) mg/dL Direct Bilirubin 0.2 (0.0-0.5) mg/dL AST 156 H (5-37) U/L ALT 130 H (0-40) U/L Alkaline Phosphatase 90 (39-117) U/L Total Creatine Kinase (38-174) U/L Troponin I High Sens 406.7 H* D (<3.5-35.0) ng/L Total Protein 6.4 L (6.5-8.0) g/dL Albumin 3.9 (3.5-5.0) g/dL Urine Color Urine Appearance Urine pH (5.0-8.0) Ur Specific [place] (1.005-1.025) Urine Protein (NEG-TRACE) MG/DL Urine Glucose (UA) (NEG) MG/DL Urine Ketones (NEG) MG/DL Urine Blood (NEG) Urine Nitrite (NEG) Ur Leukocyte Esterase (NEG) Urine RBC (0) /HPF Urine WBC (0-4) /HPF Ur Squamous Epith Cells /LPF Urine Bacteria /LPF Urine Opiates Screen (Not Detect) Urine Fentanyl Screen (Not Detect) Ur Barbiturates Screen (Not Detect) Ur Phencyclidine Scrn (Not Detect) Ur Amphetamines Screen (Not Detect) U Benzodiazepines Scrn (Not Detect) Urine Cocaine Screen (Not Detect) U Marijuana (THC) Screen (Not Detect) Ethyl Alcohol mg/dL 01/18/21 01/18/21 01/18/21 Range/Units 17:01 17:01 17:01 WBC (4.8-10.8) X10*3/uL RBC (4.60-5.80) X10*6/uL Hgb (14.0-18.0) g/dl Hct (42-52) % MCV (80-98) fL MCH (27.0-33.0) pg MCHC (31.0-36.0) g/dl RDW (11.0-16.0) % Plt Count (160-400) X10*3/uL MPV (9.4-12.4) fL Immature Gran % (Auto) (0.0-0.4) % Neut % (Auto) (45-73) % Lymph % (Auto) (20-40) % [place] % (Auto) (2-11) % Eos % (Auto) (0-4) % Baso % (Auto) (0-2) % Lymph # (Auto) (1.2-4.9) X10*3/uL [place] # (Auto) (0.1-1.2) X10*3/uL Eos # (Auto) (0.0-0.4) X10*3/uL Baso # (Auto) (0.0-0.2) X10*3/uL Abs Immat Gran (auto) (0.00-0.03) X10*3/uL Absolute Neuts (auto) (2.0-8.3) X10*3/uL Absolute Nucleated RBC (0.0-0.012) X10*3/uL Nucleated RBC % (auto) (0.0-0.2) /100WBC Smear Tech's Comments PT (9.9-13.0) SEC INR (0.9-1.1) APTT (24.1-38.0) SEC O2 Saturation % ABG pH at Pt Temp (7.35-7.45) ABG pCO2 at Pt Temp (32-45) mmHg ABG pO2 at Pt Temp (83-108) mmHg ABG HCO3 (22-26) mmol/L ABG Base Excess (Actual) mmol/L Sodium (135-145) mmol/L Potassium (3.3-5.1) mmol/L Chloride (96-108) mmol/L Carbon Dioxide (22-29) mmol/L Anion Gap (12-20) BUN (9-16) mg/dL Creatinine (0.5-1.4) mg/dL Estim Creat Clear Calc Estimated GFR Random Glucose (60-115) mg/dL Lactic Acid (0.5-2.0) mmol/L Calcium (8.4-10.2) mg/dL Magnesium (1.6-2.6) mg/dL Total Bilirubin (0.0-1.0) mg/dL Direct Bilirubin (0.0-0.5) mg/dL AST (5-37) U/L ALT (0-40) U/L Alkaline Phosphatase (39-117) U/L Total Creatine Kinase (38-174) U/L Troponin I High Sens (<3.5-35.0) ng/L Total Protein (6.5-8.0) g/dL Albumin (3.5-5.0) g/dL Urine Color YELLOW Urine Appearance CLEAR Urine pH 6.0 (5.0-8.0) Ur Specific [place] 1.020 (1.005-1.025) Urine Protein 1+ H (NEG-TRACE) MG/DL Urine Glucose (UA) 250 H (NEG) MG/DL Urine Ketones NEG (NEG) MG/DL Urine Blood TRACE (NEG) Urine Nitrite NEG (NEG) Ur Leukocyte Esterase NEG (NEG) Urine RBC 1-4 (0) /HPF Urine WBC 0-2 (0-4) /HPF Ur Squamous Epith Cells TRACE /LPF Urine Bacteria NONE /LPF Urine Opiates Screen POSITIVE H (Not Detect) Urine Fentanyl Screen POSITIVE H (Not Detect) Ur Barbiturates Screen Not Detected (Not Detect) Ur Phencyclidine Scrn Not Detected (Not Detect) Ur Amphetamines Screen Not Detected (Not Detect) U Benzodiazepines Scrn POSITIVE H (Not Detect) Urine Cocaine Screen Not Detected (Not Detect) U Marijuana (THC) Screen Not Detected (Not Detect) Ethyl Alcohol < 10 mg/dL 01/18/21 Range/Units 17:09 WBC (4.8-10.8) X10*3/uL RBC (4.60-5.80) X10*6/uL Hgb (14.0-18.0) g/dl Hct (42-52) % MCV (80-98) fL MCH (27.0-33.0) pg MCHC (31.0-36.0) g/dl RDW (11.0-16.0) % Plt Count (160-400) X10*3/uL MPV (9.4-12.4) fL Immature Gran % (Auto) (0.0-0.4) % Neut % (Auto) (45-73) % Lymph % (Auto) (20-40) % [place] % (Auto) (2-11) % Eos % (Auto) (0-4) % Baso % (Auto) (0-2) % Lymph # (Auto) (1.2-4.9) X10*3/uL [place] # (Auto) (0.1-1.2) X10*3/uL Eos # (Auto) (0.0-0.4) X10*3/uL Baso # (Auto) (0.0-0.2) X10*3/uL Abs Immat Gran (auto) (0.00-0.03) X10*3/uL Absolute Neuts (auto) (2.0-8.3) X10*3/uL Absolute Nucleated RBC (0.0-0.012) X10*3/uL Nucleated RBC % (auto) (0.0-0.2) /100WBC Smear Tech's Comments PT (9.9-13.0) SEC INR (0.9-1.1) APTT (24.1-38.0) SEC O2 Saturation 99.0 % ABG pH at Pt Temp 7.35 (7.35-7.45) ABG pCO2 at Pt Temp 35 (32-45) mmHg ABG pO2 at Pt Temp 141 H (83-108) mmHg ABG HCO3 19 L (22-26) mmol/L ABG Base Excess (Actual) -5.2 mmol/L Sodium (135-145) mmol/L Potassium (3.3-5.1) mmol/L Chloride (96-108) mmol/L Carbon Dioxide (22-29) mmol/L Anion Gap (12-20) BUN (9-16) mg/dL Creatinine (0.5-1.4) mg/dL Estim Creat Clear Calc Estimated GFR Random Glucose (60-115) mg/dL Lactic Acid (0.5-2.0) mmol/L Calcium (8.4-10.2) mg/dL Magnesium (1.6-2.6) mg/dL Total Bilirubin (0.0-1.0) mg/dL Direct Bilirubin (0.0-0.5) mg/dL AST (5-37) U/L ALT (0-40) U/L Alkaline Phosphatase (39-117) U/L Total Creatine Kinase (38-174) U/L Troponin I High Sens (<3.5-35.0) ng/L Total Protein (6.5-8.0) g/dL Albumin (3.5-5.0) g/dL Urine Color Urine Appearance Urine pH (5.0-8.0) Ur Specific [place] (1.005-1.025) Urine Protein (NEG-TRACE) MG/DL Urine Glucose (UA) (NEG) MG/DL Urine Ketones (NEG) MG/DL Urine Blood (NEG) Urine Nitrite (NEG) Ur Leukocyte Esterase (NEG) Urine RBC (0) /HPF Urine WBC (0-4) /HPF Ur Squamous Epith Cells /LPF Urine Bacteria /LPF Urine Opiates Screen (Not Detect) Urine Fentanyl Screen (Not Detect) Ur Barbiturates Screen (Not Detect) Ur Phencyclidine Scrn (Not Detect) Ur Amphetamines Screen (Not Detect) U Benzodiazepines Scrn (Not Detect) Urine Cocaine Screen (Not Detect) U Marijuana (THC) Screen (Not Detect) Ethyl Alcohol mg/dL ECG Data Attestation: I personally reviewed and interpreted this ECG as follows: ECG interpretation date: 01/18/21 ECG interpretation time: 16:06 Interpretation: Rate: 153 Rhythm: aflutter [place]: rightward Normal P waves. Normal YOGESH. Normal QRS complex. ST T wave : no RAY, nonspecific, ST depressions lateral leads qTC: prolonged prior studies: change from prior The study has been interpreted contemporaneously by me. . Procedures Central Line Placement Right IJ: Time Out Performed: Yes Patient Placed on Monitor/Pulse Ox: Yes Prep: mask, gown and gloves Central Line Prep: Chlorhexidine scrub and sterile drapes applied Local Anesthetic: other anesthetic (on propofol drip, received 8mg versed) Ultrasound Used for Placement: Yes Central Line Lumen Inserted: triple Post Procedure: sutured in place, good blood return, all ports aspirated, flushed, capped and sterile dressing applied Post Procedure X-Ray: tip of catheter in good position Patient Tolerated Procedure: well and no complications Complications: none Intubation Time out performed: Yes sedative: Versed Mg Given: 4 paralytic: Rocuronium Mg Given: 50 Assist Device Used: fiber optic device ET Tube Size: 7.5 ET Tube Uncuffed: Yes Tube Secured Depth (cm): 24 Tube Placement Confirmation: visualized tube passing through cords, equal breath sounds bilaterally, no breath sounds over epigastrium and confirmation by capnometry Patient Tolerated Procedure: well and no complications Intubation Complications: none Critical Care Time Critical Care Time Critical Care Time: Yes Total Critical Care Time: 60 Attestation: review of records, discussion with family, repeat assessments multiple boluses of dilt I attest to this time spent taking care of the patient Discharge Plan Discharge Clinical Impression: Cardiac arrest, Seizure-like activity Atrial flutter Qualifiers: Atrial flutter type: unspecified Qualified Code(s): I48.92 - Unspecified atrial flutter Patient Disposition: Admitted As Inpatient
[2021-01-18] MEDS: dilTIAZem HCL 125 MG in 0.9 % Sodium Chloride 100 ML 10 MG IVCONT (16:42)
[2021-01-18] MEDS: propofoL 1,000 MG/100 ML VIAL 9 MG IVCONT (16:47)
[2021-01-18] MEDS: levETIRAcetam in NaCl (iso-os) 1,000 MG/100 ML PIGGYBACK 400 MG IV (16:55)
[2021-01-18 17:09] LABS: Basophils Absolute Auto 0.1 X10*3/uL (0.0-0.2); Basophils Percent Auto 0.3 % (0-2); Eosinophils Absolute Auto 0.5 X10*3/uL (0.0-0.4); Hematocrit 37.5 % (42-52); Hemoglobin 12.7 g/dl (14.0-18.0); Imm Gran Abs Auto 0.31 X10*3/uL (0.00-0.03); Imm Gran Pct Auto 1.2 % (0.0-0.4); Lymphocytes Percent Auto 7.6 % (20-40); MANUAL DIFF FLAG SCAN; Mean Corpuscular HGB Conc 33.9 g/dl (31.0-36.0); Mean Corpuscular Hemoglobin 32.4 pg (27.0-33.0); Mean Corpuscular Volume 95.7 fL (80-98); Monocytes Absolute Auto 2.3 X10*3/uL (0.1-1.2); Monocytes Percent Auto 8.7 % (2-11); Neutrophils Percent Auto 80.2 % (45-73); Platelet Count 188 X10*3/uL (160-400); Red Blood Count 3.92 X10*6/uL (4.60-5.80); Red Cell Distribution Width 15.1 % (11.0-16.0); SCAN SMEAR FLAG 1; White Blood Count 26.2 X10*3/uL (4.8-10.8)
[2021-01-18 17:12] LABS: Appearance Urine CLEAR; Color Urine YELLOW; Glucose Urine UA 250 MG/DL (NEG); Leukocyte Esterase Urine NEG (NEG); Nitrite Urine NEG (NEG); UACC Culture Trigger NO; Urine Blood TRACE (NEG); Urine Ketones NEG (NEG); Urine Protein 1+ MG/DL (NEG-TRACE)
[2021-01-18 17:15] LABS: ABG Base Excess -5.2 mmol/L; ABG HCO3 19 mmol/L (22-26); ABG pCO2 35 mmHg (32-45); ABG pH 7.35 (7.35-7.45); ABG pO2 141 mmHg (83-108)
[2021-01-18 17:15] LABS: INTERNATIONAL NORM RATIO 1.2 (0.9-1.1); Prothrombin Time 14.2 SEC (9.9-13.0)
[2021-01-18 17:18] LABS: Partial Thromboplastin Time 34.8 SEC (24.1-38.0)
[2021-01-18 17:22] LABS: Lactic Acid 1.6 mmol/L (0.5-2.0)
[2021-01-18 17:22] LABS: Ethanol < 10 mg/dL
[2021-01-18 17:26] LABS: Anion Gap 12 (12-20); Blood Urea Nitrogen 13 mg/dL (9-16); Calcium 8.1 mg/dL (8.4-10.2); Carbon Dioxide 23 mmol/L (22-29); Chloride 105 mmol/L (96-108); Estimated Glomerular Filt Rate > 60; Glucose Random 193 mg/dL (60-115); Potassium 3.7 mmol/L (3.3-5.1); Sodium 136 mmol/L (135-145)
[2021-01-18 17:27] LABS: Amphetamine Screen Urine Not Detected (Not Detect); Barbiturates, Urine Not Detected (Not Detect); Benzodiazepines Screen Urine POSITIVE (Not Detect); Cannabinoid Screen Urine Not Detected (Not Detect); Cocaine Screen Urine Not Detected (Not Detect); Fentanyl, urine POSITIVE (Not Detect); Opiate Screen Urine POSITIVE (Not Detect); Phencyclidine Screen Urine Not Detected (Not Detect)
[2021-01-18 17:27] LABS: Alanine Aminotransferase 130 U/L (0-40); Albumin Level 3.9 g/dL (3.5-5.0); Alkaline Phosphatase 90 U/L (39-117); Aspartate Amino Transferase 156 U/L (5-37); Bilirubin Direct 0.2 mg/dL (0.0-0.5); Bilirubin Total 0.5 mg/dL (0.0-1.0); Total Protein 6.4 g/dL (6.5-8.0)
[2021-01-18 17:30] LABS: SLIDE REVIEW VERIFIED
[2021-01-18 17:32] LABS: Troponin-I High Sensitivity 406.7 ng/L (<3.5-35.0)
[2021-01-18 17:37] LABS: WBC Urine 0-2 /HPF (0-4)
[2021-01-18 17:38] LABS: Squamous Epithelial Cell Urine TRACE /LPF
--- NOTE | 2021-01-18 17:38 | PM.CCHP ---
History of Present Illness Date of Service: 01/18/21 Chief Complaint: Witnessed syncope/pulseless/shockable rhythm 65-year-old male known polysubstance abuser midline sternotomy scar consistent with be previous coronary bypass grafting witnessed loss of consciousness EMS arrived and found the a shock a below rhythm which was done they claimed that he appeared to be pulseless-he had a respiratory mechanism with with very deep inspiratory and expiratory effort and a nystagmoid like movement that appear to represent status epilepticus but he was rapidly paralyzed for intubation and with his acute severe hypertension and tachycardia in other words a hyper sympathetic state I feared nonconvulsive status epilepticus and I gave him an additional 4 mg of IV Versed and blood pressure came down to 176 and I loaded him with IV Keppra 1 g and he seemed to settle down breathing synchronously with the ventilator requiring high FiO2 and to alleviate any congestion because bedside echo demonstrated severe global left ventricular dysfunction with ejection fraction in the mid 20s at best I felt slowing his heart rate with IV Cardizem would be the best option for D congestion and that seemed to work successfully increasing his AV blockade heart rate reduced 80 and when he became hypotensive I stopped the peep removed the propofol and used to IV Versed as his mechanism of sedation and with that he was brought to the intensive care unit and placed on a targeted hypothermia regimen to bring his temperature down to 35? centigrade Review of Systems Review of Systems: Yes Unobtainable due to mental status PMFSH Past Medical History Medical History (Updated 01/19/21 @ 16:57 by Henna Potter MD) CAD (coronary artery disease) CHF (congestive heart failure) Cocaine abuse with intoxication COPD (chronic obstructive pulmonary disease) Drug abuse 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 Heroin use Hyperlipemia Paroxysmal atrial fibrillation PVD (peripheral vascular disease) Toxic encephalopathy Surgical History Surgical History S/P CABG x 2 Social History Social History Household Members: Unknown / Unable to assess Housing: Unknown / Unable to assess Unable to assess alcohol history related to: Unable to respond Alcohol intake: never Patient Tobacco Use Status: Current everyday Tobacco user Tobacco use type: Cigarette Cigarettes Per Day: 5 e-Cigarette/Vaping Use: Never Used Use of substances other than those prescribed or required for medical reasons: Yes Substance Use Type: Crack/Cocaine, Opiates, Painkillers and Prescription Drugs Last Used Substance Other:: tested positive for benzos, opiates, fentanyl. field report says cocaine Currently Displaying Signs/Symptoms of Drug Intoxication Withdrawal: No Advance Directives: Yes Advance Directives Information Provided: No Advance Directives on File: Yes Advance Directives Date on File: 01/12/21 Do you have thoughts of harming others: None Do you have a plan to hurt others: No Plan Recently lost weight without trying: Unsure Nutrition Risks: On aspiration precautions service: No Current occupational status: retired Meds Allergies Allergy/AdvReac Type Severity Reaction Status Date / Time No Known Allergies Allergy Unverified 01/12/21 01:03 Active Medications: Current Medications Generic Name Dose Route Start Last Admin Trade Name Freq PRN Reason Stop Dose Admin Apixaban 5 mg 01/18/21 21:00 Apixaban 5 Mg Tablet PO BID [facility] Aspirin 81 mg 01/19/21 09:00 Aspirin 81 Mg Tab.Chew PO DAILY [facility] Atorvastatin Calcium 40 mg 01/18/21 21:00 Atorvastatin Calcium 40 Mg Tablet PO BEDTIME [facility] Propofol 1,000 mg in 100 mls @ 0 mls/hr 01/18/21 16:15 Diprivan IVCONT .Q0M [facility] Protocol Per Protocol Diltiazem HCl 125 mg/ Sodium 125 mls @ 0 mls/hr 01/18/21 16:15 01/18/21 16:42 Chloride IVCONT 10 mg/hr .Q0M [facility] 10 mls/hr Administration Protocol Per Protocol Piperacillin Sod/Tazobactam 50 mls @ 100 mls/hr 01/18/21 17:20 Sod 3.375 gm/ Sodium Chloride IV 01/18/21 17:49 ONCE ONE Phenylephrine HCl 20 mg/ 252 mls @ 0 mls/hr 01/18/21 17:30 Sodium Chloride IVCONT .Q0M [facility] Protocol Per Protocol Phenylephrine HCl 20 mg/ 252 mls @ 0 mls/hr 01/18/21 17:45 Sodium Chloride IVCONT .Q0M [facility] Protocol Per Protocol Omeprazole 20 mg 01/19/21 06:30 Omeprazole 20 Mg Capsule. PO DAILY@0630 [facility] Pharmacy Consult 1 each 01/18/21 15:36 Consult Rx Perform Med Rec MISCELLANE ONCE PRN Consult order Home Medications Medication Instructions Recorded Confirmed Last Taken Type apixaban 5 mg tablet (Eliquis) 5 mg PO BID 01/12/21 01/18/21 01/11/21 19:00 History aspirin 81 mg tablet 81 mg PO DAILY 01/12/21 01/18/21 01/11/21 08:00 History atorvastatin 40 mg tablet 40 mg PO BEDTIME 01/12/21 01/18/21 01/11/21 19:00 History clonidine HCl 0.1 mg tablet 0.1 mg PO BID 01/12/21 01/18/21 Unknown History metoprolol tartrate 25 mg tablet 25 mg PO BID 01/12/21 01/18/21 01/11/21 19:00 History nitroglycerin 0.4 mg sublingual 0.4 mg SUBLINGUAL NEEDED 01/12/21 01/18/21 01/08/21 History tablet omeprazole 20 mg capsule,delayed 20 mg PO DAILY 01/12/21 01/18/21 01/11/21 08:00 History release pentoxifylline 400 mg 1 tab PO BID 01/18/21 01/18/21 Unknown History tablet,extended release Physical Exam Vital Signs: Vital Signs: Last Vital Signs Pulse 160 H 01/18/21 16:42 BP 153/104 H 01/18/21 16:42 So currently paralyzed and sedated and clinically in what looked to be status epilepticus now calm down Severe global LV dysfunction and atrial flutter with rapid ventricular response documented by echo in EKG Abdomen soft no organomegaly but distended gastric good shadow so it OG tube was placed on suction Chest with coarse bilateral rales but no longer any diaphragmatic effort and Skin intact no track puckett no ulceration no cellulitis Results Labs CBC and Chem 7: 01/19/21 15:28 01/19/21 15:28 Labs: Laboratory Results - last 24 hr 01/18/21 01/18/21 01/18/21 17:00 17:00 17:00 MCV 95.7 MCH 32.4 MCHC 33.9 RDW 15.1 Plt Count 188 MPV 9.0 L Immature Gran % (Auto) 1.2 H Neut % (Auto) 80.2 H Lymph % (Auto) 7.6 L [place] % (Auto) 8.7 Eos % (Auto) 2.0 Baso % (Auto) 0.3 Lymph # (Auto) 2.0 [place] # (Auto) 2.3 H Eos # (Auto) 0.5 H Baso # (Auto) 0.1 Abs Immat Gran (auto) 0.31 H Absolute Neuts (auto) 21.0 H Absolute Nucleated RBC 0.000 Nucleated RBC % (auto) 0.0 Smear Tech's Comments VERIFIED PT 14.2 H INR 1.2 H APTT 34.8 D O2 Saturation ABG pH at Pt Temp ABG pCO2 at Pt Temp ABG pO2 at Pt Temp ABG HCO3 ABG Base Excess (Actual) Anion Gap 12 Estim Creat Clear Calc TNP Estimated GFR > 60 Random Glucose 193 H D Lactic Acid Calcium 8.1 L Magnesium Total Bilirubin Direct Bilirubin AST ALT Alkaline Phosphatase Total Creatine Kinase 101 D Troponin I High Sens Total Protein Albumin Urine Color Urine Appearance Urine pH Ur Specific [place] Urine Protein Urine Glucose (UA) Urine Ketones Urine Blood Urine Nitrite Ur Leukocyte Esterase Urine RBC Urine WBC Ur Squamous Epith Cells Urine Bacteria Urine Opiates Screen Urine Fentanyl Screen Ur Barbiturates Screen Ur Phencyclidine Scrn Ur Amphetamines Screen U Benzodiazepines Scrn Urine Cocaine Screen U Marijuana (THC) Screen Ethyl Alcohol 01/18/21 01/18/21 01/18/21 17:00 17:00 17:00 MCV MCH MCHC RDW Plt Count MPV Immature Gran % (Auto) Neut % (Auto) Lymph % (Auto) [place] % (Auto) Eos % (Auto) Baso % (Auto) Lymph # (Auto) [place] # (Auto) Eos # (Auto) Baso # (Auto) Abs Immat Gran (auto) Absolute Neuts (auto) Absolute Nucleated RBC Nucleated RBC % (auto) Smear Tech's Comments PT INR APTT O2 Saturation ABG pH at Pt Temp ABG pCO2 at Pt Temp ABG pO2 at Pt Temp ABG HCO3 ABG Base Excess (Actual) Anion Gap Estim Creat Clear Calc Estimated GFR Random Glucose Lactic Acid 1.6 Calcium Magnesium 2.0 Total Bilirubin 0.5 Direct Bilirubin 0.2 AST 156 H ALT 130 H Alkaline Phosphatase 90 Total Creatine Kinase Troponin I High Sens 406.7 H* D Total Protein 6.4 L Albumin 3.9 Urine Color Urine Appearance Urine pH Ur Specific [place] Urine Protein Urine Glucose (UA) Urine Ketones Urine Blood Urine Nitrite Ur Leukocyte Esterase Urine RBC Urine WBC Ur Squamous Epith Cells Urine Bacteria Urine Opiates Screen Urine Fentanyl Screen Ur Barbiturates Screen Ur Phencyclidine Scrn Ur Amphetamines Screen U Benzodiazepines Scrn Urine Cocaine Screen U Marijuana (THC) Screen Ethyl Alcohol 01/18/21 01/18/21 01/18/21 17:01 17:01 17:01 MCV MCH MCHC RDW Plt Count MPV Immature Gran % (Auto) Neut % (Auto) Lymph % (Auto) [place] % (Auto) Eos % (Auto) Baso % (Auto) Lymph # (Auto) [place] # (Auto) Eos # (Auto) Baso # (Auto) Abs Immat Gran (auto) Absolute Neuts (auto) Absolute Nucleated RBC Nucleated RBC % (auto) Smear Tech's Comments PT INR APTT O2 Saturation ABG pH at Pt Temp ABG pCO2 at Pt Temp ABG pO2 at Pt Temp ABG HCO3 ABG Base Excess (Actual) Anion Gap Estim Creat Clear Calc Estimated GFR Random Glucose Lactic Acid Calcium Magnesium Total Bilirubin Direct Bilirubin AST ALT Alkaline Phosphatase Total Creatine Kinase Troponin I High Sens Total Protein Albumin Urine Color YELLOW Urine Appearance CLEAR Urine pH 6.0 Ur Specific [place] 1.020 Urine Protein 1+ H Urine Glucose (UA) 250 H Urine Ketones NEG Urine Blood TRACE Urine Nitrite NEG Ur Leukocyte Esterase NEG Urine RBC 1-4 Urine WBC 0-2 Ur Squamous Epith Cells TRACE Urine Bacteria NONE Urine Opiates Screen POSITIVE H Urine Fentanyl Screen POSITIVE H Ur Barbiturates Screen Not Detected Ur Phencyclidine Scrn Not Detected Ur Amphetamines Screen Not Detected U Benzodiazepines Scrn POSITIVE H Urine Cocaine Screen Not Detected U Marijuana (THC) Screen Not Detected Ethyl Alcohol < 10 01/18/21 17:09 MCV MCH MCHC RDW Plt Count MPV Immature Gran % (Auto) Neut % (Auto) Lymph % (Auto) [place] % (Auto) Eos % (Auto) Baso % (Auto) Lymph # (Auto) [place] # (Auto) Eos # (Auto) Baso # (Auto) Abs Immat Gran (auto) Absolute Neuts (auto) Absolute Nucleated RBC Nucleated RBC % (auto) Smear Tech's Comments PT INR APTT O2 Saturation 99.0 ABG pH at Pt Temp 7.35 ABG pCO2 at Pt Temp 35 ABG pO2 at Pt Temp 141 H ABG HCO3 19 L ABG Base Excess (Actual) -5.2 Anion Gap Estim Creat Clear Calc Estimated GFR Random Glucose Lactic Acid Calcium Magnesium Total Bilirubin Direct Bilirubin AST ALT Alkaline Phosphatase Total Creatine Kinase Troponin I High Sens Total Protein Albumin Urine Color Urine Appearance Urine pH Ur Specific [place] Urine Protein Urine Glucose (UA) Urine Ketones Urine Blood Urine Nitrite Ur Leukocyte Esterase Urine RBC Urine WBC Ur Squamous Epith Cells Urine Bacteria Urine Opiates Screen Urine Fentanyl Screen Ur Barbiturates Screen Ur Phencyclidine Scrn Ur Amphetamines Screen U Benzodiazepines Scrn Urine Cocaine Screen U Marijuana (THC) Screen Ethyl Alcohol Imaging Radiologist's Impressions: Impressions Cervical Spine CT 01/18/21 15:37 IMPRESSION: No fracture or dislocation. Degenerative changes. Head CT 01/18/21 15:37 IMPRESSION: No acute intracranial findings. 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 Increasing sinus disease. Question polyps in the posterior nasal cavity/nasopharynx. Chest X-Ray 01/18/21 17:01 IMPRESSION: No acute intrathoracic disease. All tubes and lines in good position. Assessment and Plan (1) NSTEMI (non-ST elevated myocardial infarction): Status: Acute (2) 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: Status: Acute (3) Seizure: Status: Acute (4) Atrial flutter: Qualifiers: Atrial flutter type: unspecified Qualified Code(s): I48.92 - Unspecified atrial flutter Status: Acute (5) Cardiac arrest: Status: Acute (6) Paroxysmal atrial fibrillation: Status: Acute (7) CAD (coronary artery disease): Status: Acute (8) Coronary bypass graft mechanical complication: Status: Acute (9) Toxic encephalopathy: Status: Acute (10) Cocaine abuse with intoxication: Status: Acute (11) COPD (chronic obstructive pulmonary disease): Status: Acute (12) CHF exacerbation: Status: Acute Targeted hypothermia and ventilatory maintenance and IV Cardizem drip for control of his atrial fibrillation and as needed IV phenylephrine full blood pressure maintenance
[2021-01-18 17:42] LABS: Glucose, Whole Blood 189 mg/dL (60-115)
[2021-01-18 17:57] LABS: COVID-19 Test Negative (Negative); IDNOW Serial# 08D9AD1C
[2021-01-18] MEDS: Phenylephrine HCL 20 MG in 0.9 % Sodium Chloride 250 ML 28.35 MG IVCONT (18:09)
[2021-01-18] MEDS: Piperacillin Sodium/Tazobactam 3.375 GM in 0.9 % Sodium Chloride 50 ML IV (19:10)
[2021-01-18] MEDS: Midazolam HCl/NS 50 MG/50 ML PLAST..BAG IVCONT (20:29)
[2021-01-18] MEDS: Atorvastatin Calcium 40 MG TABLET PO (20:33)
[2021-01-18] MEDS: Apixaban 5 MG TABLET PO (20:33)
[2021-01-18] MEDS: levETIRAcetam in NaCl (iso-os) 500 MG/100 ML PIGGYBACK 400 MG IV ×2 (20:33→22:20)
[2021-01-18 20:36] LABS: B Type Natriuretic Peptide 374 pg/mL (<100); Troponin-I High Sensitivity 734.2 ng/L (<3.5-35.0)
[2021-01-18] MEDS: MannitoL 12.5 GM/50 ML VIAL IV (20:48)
[2021-01-18 20:51] LABS: VBG Base Excess -3.3 mmol/L; VBG HCO3 24 mmol/L (22-26); VBG pCO2 53 mmHg; VBG pH 7.26 (7.32-7.43); VBG pO2 36 mmHg
[2021-01-18 21:11] LABS: ABG Refer to POC result
--- NOTE | 2021-01-18 21:39 | P.PNCC_ITS ---
Critical Care Event Note Summary Date of Service: 01/18/21 Code activated: No Narrative: This case had a high probability of a clinically significant, sudden, or life threatening deterioration of this patient's condition which required my full and direct attention, intervention and personal management. Critical Care Time (minutes): 180 Comment: Upon arrival to the ICU, patient was no longer on the Cardizem gtt, it was stopped as his heart rate had come down to the 80s and 90s, patient on 20 of propofol gtt, intubated and sedated. Patient started to have seizure like activity so we gave the patient 4 mg IV midazolam push and started on a midazolam gtt. As patient's blood pressures were getting soft, we transitioned him off the propofol drip. Shortly after arrival, patient did have 1 episode of bradying down to the 30s, this was followed by several episodes of SVT which would flip back and forth between aflutter with the heart rate less than 100 back up to SVT with a rate in the 140's. Patient had a few episodes of clinically seizing for a minute then stop, for this we gave 500 mg of Keppra x2 doses for a total of 2g given since his arrival to the ED today. We also gave h im a bolus of 4 mg midazolam, his symptoms did resolve. During this time, patient had labile blood pressures with a systolic up in the 160s, immediately coming down to the 90s. Question hypoxic encephalopathy, question increased intracranial pressure, pupils are still pinpoint so it is difficult to discern neuro status, gave 1 dose of 12.5mg mannitol, will follow sodium labs. Troponin increased from 406.7 at 5pm to 734.2 at 8pm, no EKG st or t wave changes, will trend. VBG 7.25/53/36/24/50 base excess -3.3. Pt currently packed on ice for cooling s/p arrest. Family arrived, I had discussion with his , Dinorah and his cousin Lion. We discussed his grave situation and questionable meaningful recovery. Puma will discuss with the family member who has a background in medicine and call me back if she would like to change the patient's code status to a DNR. Patient's cousin Avni it did say the patient would not want to be kept alive on machines if there was no chance of meaningful recovery and he had a discussion with him about this recently. Patient's did call me back after going home speaking with family members that she would like to change her to a DNR. Discussed all of this with , he agreed with assessment and plan.
[2021-01-18 22:04] LABS: Venous Blood Gas Refer to POC result
[2021-01-18 23:15] LABS: VBG HCO3 23 mmol/L (22-26); VBG pCO2 49 mmHg; VBG pH 7.27 (7.32-7.43); VBG pO2 44 mmHg
[2021-01-18 23:21] LABS: Venous Blood Gas Refer to POC result
[2021-01-18 23:39] LABS: Anion Gap 13 (12-20); Blood Urea Nitrogen 11 mg/dL (9-16); Calcium 7.6 mg/dL (8.4-10.2); Carbon Dioxide 22 mmol/L (22-29); Chloride 107 mmol/L (96-108); Creatinine Clr Calc Pharmacy 75.3; Estimated Glomerular Filt Rate > 60; Glucose Random 113 mg/dL (60-115); Potassium 4.8 mmol/L (3.3-5.1); Sodium 137 mmol/L (135-145)
[2021-01-18 23:41] LABS: Troponin-I High Sensitivity 1004.5 ng/L (<3.5-35.0)
[2021-01-19] VITALS (33 sets, daily range): BP systolic 84–156; BP diastolic 49–87; PULSE 50–110; RESP 16–25; TEMP 34.5–37.2; O2SAT 89–100; BMI 24.6
--- NOTE | 2021-01-19 | EEG_ITS ---
This is a 16-channel EEG with an EKG lead. This EEG is limited because of continuous muscle artifacts. Background EEG rhythm is difficult to discern, but it seems to be without any obvious asymmetry or paroxysmal tendency. No definite sharp waves or spikes are noted. Cardiac lead did not reveal any significant abnormality. IMPRESSION: Limited EEG not revealing any sign of seizure activity. Otherwise, it was limited to provide further comments. MD SABINA Sahu/DONA / [id number]
--- NOTE | 2021-01-19 | ECG_ITS ---
Test Reason : CARDIAC ARREST Blood Pressure : / mmHG Vent. Rate : 153 BPM Atrial Rate : 306 BPM P-R Int : 000 ms QRS Dur : 106 ms QT Int : 332 ms P-R-T Axes : 263 092 -88 degrees QTc Int : 530 ms Atrial flutter with 2:1 A-V conduction Rightward axis Anterior infarct (cited on or before 13-JUN-2019) Marked ST abnormality, possible inferior subendocardial injury Abnormal ECG When compared with ECG of 12-JAN-2021 02:23, Vent. rate has increased ST now depressed in Lateral leads Referred By: Dominique King Electronically Signed By:ANIRUDH YI
--- NOTE | 2021-01-19 00:39 | PC.NURSE ---
Admitted to ICU via ED approx 193. Sedation switched from propofol to versed d/t bradycardia. ?Seizure activity/posturing-given iv keppra x2, mannitol, bolus versed. ETCO2 trending 12-20. Aflutter 70's with intermittent bursts of SVT 140's. Cardizem off. SBP 90's-110's on NATASHA @ 0.3 mcg/kg/min. Family, PA, and RT @ bedside. Code status changed to DNR. Skin intact with blanchable redness secondary to ice packs for therapeutic hypothermia. Goal temp 35 C. Skin cold, dusky, cyanotic earlobes and fingers.
[2021-01-19] MEDS: Midazolam HCl/NS 50 MG/50 ML PLAST..BAG 6 MG IVCONT (03:06)
[2021-01-19] MEDS: Phenylephrine HCL 20 MG in 0.9 % Sodium Chloride 250 ML 17.01 MG IVCONT (03:07)
[2021-01-19] MEDS: propofoL 1,000 MG/100 ML VIAL 9 MG IVCONT (04:15)
[2021-01-19 05:19] LABS: VBG Base Excess 0.1 mmol/L; VBG HCO3 28 mmol/L (22-26); VBG pCO2 59 mmHg; VBG pH 7.27 (7.32-7.43); VBG pO2 36 mmHg
[2021-01-19 05:27] LABS: Venous Blood Gas Refer to POC result
[2021-01-19] MEDS: levETIRAcetam in NaCl (iso-os) 500 MG/100 ML PIGGYBACK 400 MG IV ×2 (05:39→18:02)
[2021-01-19 06:03] LABS: Basophils Absolute Auto 0.1 X10*3/uL (0.0-0.2); Basophils Percent Auto 0.3 % (0-2); Eosinophils Absolute Auto 0.3 X10*3/uL (0.0-0.4); Eosinophils Percent Auto 1.7 % (0-4); Hematocrit 37.5 % (42-52); Hemoglobin 12.5 g/dl (14.0-18.0); Imm Gran Abs Auto 0.16 X10*3/uL (0.00-0.03); Imm Gran Pct Auto 0.8 % (0.0-0.4); Lymphocytes Absolute Auto 2.5 X10*3/uL (1.2-4.9); Lymphocytes Percent Auto 12.7 % (20-40); MANUAL DIFF FLAG SCAN; Mean Corpuscular HGB Conc 33.3 g/dl (31.0-36.0); Mean Corpuscular Volume 95.9 fL (80-98); Mean Platelet Volume 9.6 fL (9.4-12.4); Monocytes Absolute Auto 2.3 X10*3/uL (0.1-1.2); Monocytes Percent Auto 11.7 % (2-11); Neutrophils Absolute Auto 14.1 X10*3/uL (2.0-8.3); Neutrophils Percent Auto 72.8 % (45-73); Platelet Count 186 X10*3/uL (160-400); Red Blood Count 3.91 X10*6/uL (4.60-5.80); SCAN SMEAR FLAG 1; White Blood Count 19.3 X10*3/uL (4.8-10.8)
[2021-01-19 06:08] LABS: INTERNATIONAL NORM RATIO 1.3 (0.9-1.1); Prothrombin Time 14.5 SEC (9.9-13.0)
[2021-01-19 06:11] LABS: Partial Thromboplastin Time 39.7 SEC (24.1-38.0)
[2021-01-19 06:24] LABS: Alanine Aminotransferase 95 U/L (0-40); Albumin Level 3.7 g/dL (3.5-5.0); Alkaline Phosphatase 81 U/L (39-117); Anion Gap 11 (12-20); Aspartate Amino Transferase 73 U/L (5-37); Bilirubin Total 0.6 mg/dL (0.0-1.0); Blood Urea Nitrogen 9 mg/dL (9-16); Calcium 8.4 mg/dL (8.4-10.2); Carbon Dioxide 26 mmol/L (22-29); Chloride 107 mmol/L (96-108); Creatinine Clr Calc Pharmacy 79.9; Estimated Glomerular Filt Rate > 60; Glucose Random 88 mg/dL (60-115); Magnesium 2.2 mg/dL (1.6-2.6); Phosphorus 3.2 mg/dL (2.7-4.5); Potassium 4.6 mmol/L (3.3-5.1); Sodium 139 mmol/L (135-145); Total Protein 5.9 g/dL (6.5-8.0)
[2021-01-19 06:27] LABS: SLIDE REVIEW VERIFIED
[2021-01-19 06:32] LABS: Troponin-I High Sensitivity 1007.7 ng/L (<3.5-35.0)
[2021-01-19] MEDS: Albuterol/Iprat 2.5/0.5MG 3 ML AMPUL.NEB INHALE ×4 (08:03→19:58)
[2021-01-19] MEDS: Amiodarone/Dextrose 150 MG/100 ML PLAST..BAG 600 MG IV (08:14)
[2021-01-19] MEDS: Chlorhexidine Gluc Oral Rinse 15 ML MOUTHWASH BUCCAL ×2 (08:15→21:34)
[2021-01-19] MEDS: Aspirin 81 MG TAB.CHEW PO (08:15)
[2021-01-19] MEDS: Apixaban 5 MG TABLET PO ×2 (08:15→21:33)
[2021-01-19] MEDS: Amiodarone HCL 900 MG in 0.9 % Sodium Chloride 500 ML 34.53 MG IVCONT (08:15)
[2021-01-19] MEDS: dexmedeTOMIDidine HCL/NS 400 MCG/100 ML INFUS..BTL 17.3 MCG IVCONT ×4 (09:07→22:55)
[2021-01-19] MEDS: Midazolam HCl/NS 50 MG/50 ML PLAST..BAG 10 MG IVCONT (09:31)
--- NOTE | 2021-01-19 09:45 | P.CDIC_ITS ---
CDI Concurrent Query Documentation Clarification: PHYSICIAN'S DOCUMENTATION REQUEST Date of Query: 01/19/2145 Patient Name: Phan Boateng Admit Date: 01/18/21 Dear Doctor, A review of the medical record indicates additional documentation may be needed. Please review below and update the documentation accordingly. Clinical Indicators: The following information is noted in the medical record: Risk Factors/Clinical Indicators/Treatments Cardiac Arrest, possible substance abuse Unresponsive, pupils pinpoint Per note, ? Hypoxic Encephalopathy Based on the above, could you clarify in the Progress Notes which, if any of the following, best reflects the patient's level of consciousness? * Unconscious * Comatose * Persistent vegetative state * Transient level of awareness * Other (please specify) * Unable to determine Use of terms such as suspected, likely, concern for, or probable (associated with a specific diagnosis that is being evaluated, monitored, or treated as if it exists) are acceptable and can be coded in the inpatient setting, when documented at the time of discharge. Thank you, Lolita Chapa RN Extension: [phone] Please use your independent medical judgment in providing your response. THIS QUERY IS PART OF THE PERMANENT MEDICAL RECORD
--- NOTE | 2021-01-19 10:34 | MHC.CM.PN ---
Addendum entered by Felecia Atkinson 01/19/21 10:39: HCP on file listing Dinorah as HCP 1 and Todd Boateng as HCP 2. D/C plan will be ongoing d/t pt's critical status. Pt will likely resist STR/SNF placement if he is able to make decisions based on past hx. CM to follow Original Note: Pt is in ICU intubated and unable to particpate in CM assessment: Call placed to pt's spouse Dinorah for information: no answer or ability to leave a message. Review of previous visits indicates pt has a hx of polysubstance abuse, leaving AMA and overall non compliance with self health management. Pt's visitor, cousin Caroline states pt has battled substance issues all his life and can't stay away from drugs Pt has two brothers who are involved and will travel to [place] to see pt:
--- NOTE | 2021-01-19 11:33 | MHC.CLN ---
PT IS CURRENTLY NPO AND INTUBATED IF TF NEEDED; RECOMMEND JEVITY 1.0 AT MAX GOAL RATE 70ML/HR TO PROVIDE 1781KCALS (26KCALS/KG), 74G PROTEIN (1.07G/KG), 1403CC FREE WATER FROM FORMULA CAN ADD 120CC FREE WATER FLUSHES Q 4 HRS TO MEET FLUID GOAL TO PROVIDE 2123CC TOTAL WATER (FROM FORMULA AND FLUSHES; 30CC/KG) START FORMULA JEVITY 1.0 AT 20ML/HR AND INCREASE BY 10ML Q 4 HRS UNTIL GOAL RATE IS ACHIEVED MONITOR TOLERANCE, RESIDUALS AND LYTES SEE ALSO CLINICAL NUTRITION ASSESSMENT
[2021-01-19] MEDS: Midazolam HCl/NS 50 MG/50 ML PLAST..BAG 8 MG IVCONT ×2 (14:43→21:32)
[2021-01-19 15:41] LABS: Basophils Absolute Auto 0.1 X10*3/uL (0.0-0.2); Basophils Percent Auto 0.3 % (0-2); Eosinophils Absolute Auto 0.1 X10*3/uL (0.0-0.4); Eosinophils Percent Auto 0.3 % (0-4); Hemoglobin 12.3 g/dl (14.0-18.0); Imm Gran Abs Auto 0.18 X10*3/uL (0.00-0.03); Imm Gran Pct Auto 0.8 % (0.0-0.4); Lymphocytes Absolute Auto 1.7 X10*3/uL (1.2-4.9); Lymphocytes Percent Auto 7.6 % (20-40); MANUAL DIFF FLAG SCAN; Mean Corpuscular HGB Conc 34.2 g/dl (31.0-36.0); Mean Corpuscular Hemoglobin 32.5 pg (27.0-33.0); Mean Corpuscular Volume 95.2 fL (80-98); Mean Platelet Volume 9.2 fL (9.4-12.4); Monocytes Absolute Auto 2.1 X10*3/uL (0.1-1.2); Monocytes Percent Auto 9.4 % (2-11); Neutrophils Absolute Auto 18.1 X10*3/uL (2.0-8.3); Neutrophils Percent Auto 81.6 % (45-73); Platelet Count 171 X10*3/uL (160-400); Red Blood Count 3.78 X10*6/uL (4.60-5.80); Red Cell Distribution Width 14.8 % (11.0-16.0); SCAN SMEAR FLAG 1; White Blood Count 22.2 X10*3/uL (4.8-10.8)
[2021-01-19 15:49] LABS: INTERNATIONAL NORM RATIO 1.5 (0.9-1.1); Prothrombin Time 17.1 SEC (9.9-13.0)
[2021-01-19 15:52] LABS: Partial Thromboplastin Time 41.1 SEC (24.1-38.0)
[2021-01-19 15:59] LABS: Anion Gap 11 (12-20); Blood Urea Nitrogen 8 mg/dL (9-16); Calcium 8.4 mg/dL (8.4-10.2); Carbon Dioxide 24 mmol/L (22-29); Chloride 107 mmol/L (96-108); Creatinine Clr Calc Pharmacy 80.9; Estimated Glomerular Filt Rate > 60; Glucose Random 215 mg/dL (60-115); Magnesium 2.1 mg/dL (1.6-2.6); Phosphorus 2.5 mg/dL (2.7-4.5); Potassium 3.9 mmol/L (3.3-5.1); Sodium 138 mmol/L (135-145)
[2021-01-19 16:06] LABS: SLIDE REVIEW VERIFIED
--- NOTE | 2021-01-19 16:59 | PM.CCPN ---
Subjective Subjective Date of Service: 01/19/21 Interval History: 65-year-old vasculopath status post coronary bypass grafting with severe ischemic cardiomyopathy presented in congestive heart failure with rapid atrial flutter which has since converted to sinus rhythm and were now prophylax Ng him with IV amiodarone protocol and had CS CPR required with a prolonged the episode of hypoxia until intubated here so he is currently on targeted hypothermia without complication weaned FiO2 down to 30% with clearly with positive troponin there was an ischemic mechanism either cocaine induced or Deondre truly an unstable ischemic episode and currently at a point where we need to start to rewarming and he has a current CVP of 7 and electrolytes are stable renal function is stable magnesium and phosphorus are stable no evidence of coagulopathy Critical Care Time (minutes): 45 Physical Exam Vital Signs: Vital Signs: Last Vital Signs Temp 96.1 F L 01/19/21 15:54 Pulse 50 01/19/21 15:54 Resp 16 01/19/21 15:54 BP 140/70 H 01/19/21 15:54 Pulse Ox 98 01/19/21 15:54 Body Mass Index 24.6 Looks very calm and nonfocal neurologically sedated and intubated on FiO2 of 30% and awaiting EEG results to see if there is any breakthrough seizure activity Cardiac exam CVP is currently 7 with reduced bilateral carotid upstrokes due to poor stroke work reserve Lungs without adventitious sounds Abdomen soft no organomegaly No acrocyanosis and no livedo On 0.5 micrograms/kilogram of phenylephrine for a blood pressure of 140 systolic Objective Data Labs CBC & Chem 7: 01/19/21 15:28 01/19/21 15:28 Labs: Laboratory Results - last 24 hr 01/18/21 01/18/21 01/18/21 15:33 17:00 17:00 WBC 26.2 H RBC 3.92 L Hgb 12.7 L Hct 37.5 L MCV 95.7 MCH 32.4 MCHC 33.9 RDW 15.1 Plt Count 188 MPV 9.0 L Immature Gran % (Auto) 1.2 H Neut % (Auto) 80.2 H Lymph % (Auto) 7.6 L [place] % (Auto) 8.7 Eos % (Auto) 2.0 Baso % (Auto) 0.3 Lymph # (Auto) 2.0 [place] # (Auto) 2.3 H Eos # (Auto) 0.5 H Baso # (Auto) 0.1 Abs Immat Gran (auto) 0.31 H Absolute Neuts (auto) 21.0 H Absolute Nucleated RBC 0.000 Nucleated RBC % (auto) 0.0 Smear Tech's Comments VERIFIED PT INR APTT O2 Saturation ABG pH at Pt Temp ABG pCO2 at Pt Temp ABG pO2 at Pt Temp ABG HCO3 ABG Base Excess (Actual) VBG pH VBG pCO2 VBG pO2 VBG HCO3 VBG O2 Saturation VBG Base Excess Sodium 136 Potassium 3.7 Chloride 105 Carbon Dioxide 23 Anion Gap 12 BUN 13 D Creatinine 0.96 Estim Creat Clear Calc TNP Estimated GFR > 60 POC Glucose 189 H Random Glucose 193 H D Lactic Acid Calcium 8.1 L Phosphorus Magnesium Total Bilirubin Direct Bilirubin AST ALT Alkaline Phosphatase Total Creatine Kinase 101 D Troponin I High Sens B-Natriuretic Peptide Total Protein Albumin Urine Color Urine Appearance Urine pH Ur Specific [place] Urine Protein Urine Glucose (UA) Urine Ketones Urine Blood Urine Nitrite Ur Leukocyte Esterase Urine RBC Urine WBC Ur Squamous Epith Cells Urine Bacteria Urine Opiates Screen Urine Fentanyl Screen Ur Barbiturates Screen Ur Phencyclidine Scrn Ur Amphetamines Screen U Benzodiazepines Scrn Urine Cocaine Screen U Marijuana (THC) Screen Ethyl Alcohol COVID-19 (TIFFANIE) COVID-19 Clin Com Blood Type Antibody Screen 01/18/21 01/18/21 01/18/21 17:00 17:00 17:00 WBC RBC Hgb Hct MCV MCH MCHC RDW Plt Count MPV Immature Gran % (Auto) Neut % (Auto) Lymph % (Auto) [place] % (Auto) Eos % (Auto) Baso % (Auto) Lymph # (Auto) [place] # (Auto) Eos # (Auto) Baso # (Auto) Abs Immat Gran (auto) Absolute Neuts (auto) Absolute Nucleated RBC Nucleated RBC % (auto) Smear Tech's Comments PT 14.2 H INR 1.2 H APTT 34.8 D O2 Saturation ABG pH at Pt Temp ABG pCO2 at Pt Temp ABG pO2 at Pt Temp ABG HCO3 ABG Base Excess (Actual) VBG pH VBG pCO2 VBG pO2 VBG HCO3 VBG O2 Saturation VBG Base Excess Sodium Potassium Chloride Carbon Dioxide Anion Gap BUN Creatinine Estim Creat Clear Calc Estimated GFR POC Glucose Random Glucose Lactic Acid 1.6 Calcium Phosphorus Magnesium 2.0 Total Bilirubin 0.5 Direct Bilirubin 0.2 AST 156 H ALT 130 H Alkaline Phosphatase 90 Total Creatine Kinase Troponin I High Sens B-Natriuretic Peptide Total Protein 6.4 L Albumin 3.9 Urine Color Urine Appearance Urine pH Ur Specific [place] Urine Protein Urine Glucose (UA) Urine Ketones Urine Blood Urine Nitrite Ur Leukocyte Esterase Urine RBC Urine WBC Ur Squamous Epith Cells Urine Bacteria Urine Opiates Screen Urine Fentanyl Screen Ur Barbiturates Screen Ur Phencyclidine Scrn Ur Amphetamines Screen U Benzodiazepines Scrn Urine Cocaine Screen U Marijuana (THC) Screen Ethyl Alcohol COVID-19 (TIFFANIE) COVID-19 Clin Com Blood Type Antibody Screen 01/18/21 01/18/21 01/18/21 17:00 17:01 17:01 WBC RBC Hgb Hct MCV MCH MCHC RDW Plt Count MPV Immature Gran % (Auto) Neut % (Auto) Lymph % (Auto) [place] % (Auto) Eos % (Auto) Baso % (Auto) Lymph # (Auto) [place] # (Auto) Eos # (Auto) Baso # (Auto) Abs Immat Gran (auto) Absolute Neuts (auto) Absolute Nucleated RBC Nucleated RBC % (auto) Smear Tech's Comments PT INR APTT O2 Saturation ABG pH at Pt Temp ABG pCO2 at Pt Temp ABG pO2 at Pt Temp ABG HCO3 ABG Base Excess (Actual) VBG pH VBG pCO2 VBG pO2 VBG HCO3 VBG O2 Saturation VBG Base Excess Sodium Potassium Chloride Carbon Dioxide Anion Gap BUN Creatinine Estim Creat Clear Calc Estimated GFR POC Glucose Random Glucose Lactic Acid Calcium Phosphorus Magnesium Total Bilirubin Direct Bilirubin AST ALT Alkaline Phosphatase Total Creatine Kinase Troponin I High Sens 406.7 H* D B-Natriuretic Peptide Total Protein Albumin Urine Color Urine Appearance Urine pH Ur Specific [place] Urine Protein Urine Glucose (UA) Urine Ketones Urine Blood Urine Nitrite Ur Leukocyte Esterase Urine RBC Urine WBC Ur Squamous Epith Cells Urine Bacteria Urine Opiates Screen Urine Fentanyl Screen Ur Barbiturates Screen Ur Phencyclidine Scrn Ur Amphetamines Screen U Benzodiazepines Scrn Urine Cocaine Screen U Marijuana (THC) Screen Ethyl Alcohol < 10 COVID-19 (TIFFANIE) Negative COVID-19 Clin Com See Note Blood Type Antibody Screen 01/18/21 01/18/21 01/18/21 17:01 17:01 17:09 WBC RBC Hgb Hct MCV MCH MCHC RDW Plt Count MPV Immature Gran % (Auto) Neut % (Auto) Lymph % (Auto) [place] % (Auto) Eos % (Auto) Baso % (Auto) Lymph # (Auto) [place] # (Auto) Eos # (Auto) Baso # (Auto) Abs Immat Gran (auto) Absolute Neuts (auto) Absolute Nucleated RBC Nucleated RBC % (auto) Smear Tech's Comments PT INR APTT O2 Saturation 99.0 ABG pH at Pt Temp 7.35 ABG pCO2 at Pt Temp 35 ABG pO2 at Pt Temp 141 H ABG HCO3 19 L ABG Base Excess (Actual) -5.2 VBG pH VBG pCO2 VBG pO2 VBG HCO3 VBG O2 Saturation VBG Base Excess Sodium Potassium Chloride Carbon Dioxide Anion Gap BUN Creatinine Estim Creat Clear Calc Estimated GFR POC Glucose Random Glucose Lactic Acid Calcium Phosphorus Magnesium Total Bilirubin Direct Bilirubin AST ALT Alkaline Phosphatase Total Creatine Kinase Troponin I High Sens B-Natriuretic Peptide Total Protein Albumin Urine Color YELLOW Urine Appearance CLEAR Urine pH 6.0 Ur Specific [place] 1.020 Urine Protein 1+ H Urine Glucose (UA) 250 H Urine Ketones NEG Urine Blood TRACE Urine Nitrite NEG Ur Leukocyte Esterase NEG Urine RBC 1-4 Urine WBC 0-2 Ur Squamous Epith Cells TRACE Urine Bacteria NONE Urine Opiates Screen POSITIVE H Urine Fentanyl Screen POSITIVE H Ur Barbiturates Screen Not Detected Ur Phencyclidine Scrn Not Detected Ur Amphetamines Screen Not Detected U Benzodiazepines Scrn POSITIVE H Urine Cocaine Screen Not Detected U Marijuana (THC) Screen Not Detected Ethyl Alcohol COVID-19 (TIFFANIE) COVID-19 Clin Com Blood Type Antibody Screen 01/18/21 01/18/21 01/18/21 17:25 19:53 20:46 WBC RBC Hgb Hct MCV MCH MCHC RDW Plt Count MPV Immature Gran % (Auto) Neut % (Auto) Lymph % (Auto) [place] % (Auto) Eos % (Auto) Baso % (Auto) Lymph # (Auto) [place] # (Auto) Eos # (Auto) Baso # (Auto) Abs Immat Gran (auto) Absolute Neuts (auto) Absolute Nucleated RBC Nucleated RBC % (auto) Smear Tech's Comments PT INR APTT O2 Saturation ABG pH at Pt Temp ABG pCO2 at Pt Temp ABG pO2 at Pt Temp ABG HCO3 ABG Base Excess (Actual) VBG pH 7.26 L VBG pCO2 53 VBG pO2 36 VBG HCO3 24 VBG O2 Saturation 50.0 VBG Base Excess -3.3 Sodium Potassium Chloride Carbon Dioxide Anion Gap BUN Creatinine Estim Creat Clear Calc Estimated GFR POC Glucose Random Glucose Lactic Acid Calcium Phosphorus Magnesium Total Bilirubin Direct Bilirubin AST ALT Alkaline Phosphatase Total Creatine Kinase Troponin I High Sens 734.2 H* D B-Natriuretic Peptide 374 H Total Protein Albumin Urine Color Urine Appearance Urine pH Ur Specific [place] Urine Protein Urine Glucose (UA) Urine Ketones Urine Blood Urine Nitrite Ur Leukocyte Esterase Urine RBC Urine WBC Ur Squamous Epith Cells Urine Bacteria Urine Opiates Screen Urine Fentanyl Screen Ur Barbiturates Screen Ur Phencyclidine Scrn Ur Amphetamines Screen U Benzodiazepines Scrn Urine Cocaine Screen U Marijuana (THC) Screen Ethyl Alcohol COVID-19 (TIFFANIE) COVID-19 Clin Com Blood Type A Negative Antibody Screen NEGATIVE 01/18/21 01/18/21 01/18/21 23:06 23:06 23:09 WBC RBC Hgb Hct MCV MCH MCHC RDW Plt Count MPV Immature Gran % (Auto) Neut % (Auto) Lymph % (Auto) [place] % (Auto) Eos % (Auto) Baso % (Auto) Lymph # (Auto) [place] # (Auto) Eos # (Auto) Baso # (Auto) Abs Immat Gran (auto) Absolute Neuts (auto) Absolute Nucleated RBC Nucleated RBC % (auto) Smear Tech's Comments PT INR APTT O2 Saturation ABG pH at Pt Temp ABG pCO2 at Pt Temp ABG pO2 at Pt Temp ABG HCO3 ABG Base Excess (Actual) VBG pH 7.27 L VBG pCO2 49 VBG pO2 44 VBG HCO3 23 VBG O2 Saturation 65.0 VBG Base Excess -4.0 Sodium 137 Potassium 4.8 D Chloride 107 Carbon Dioxide 22 Anion Gap 13 BUN 11 Creatinine 0.87 Estim Creat Clear Calc 75.3 Estimated GFR > 60 POC Glucose Random Glucose 113 D Lactic Acid Calcium 7.6 L D Phosphorus Magnesium Total Bilirubin Direct Bilirubin AST ALT Alkaline Phosphatase Total Creatine Kinase Troponin I High Sens 1004.5 H* B-Natriuretic Peptide Total Protein Albumin Urine Color Urine Appearance Urine pH Ur Specific [place] Urine Protein Urine Glucose (UA) Urine Ketones Urine Blood Urine Nitrite Ur Leukocyte Esterase Urine RBC Urine WBC Ur Squamous Epith Cells Urine Bacteria Urine Opiates Screen Urine Fentanyl Screen Ur Barbiturates Screen Ur Phencyclidine Scrn Ur Amphetamines Screen U Benzodiazepines Scrn Urine Cocaine Screen U Marijuana (THC) Screen Ethyl Alcohol COVID-19 (TIFFANIE) COVID-19 Clin Com Blood Type Antibody Screen 01/19/21 01/19/21 01/19/21 05:10 05:10 05:10 WBC 19.3 H RBC 3.91 L Hgb 12.5 L Hct 37.5 L MCV 95.9 MCH 32.0 MCHC 33.3 RDW 15.0 Plt Count 186 MPV 9.6 Immature Gran % (Auto) 0.8 H Neut % (Auto) 72.8 Lymph % (Auto) 12.7 L [place] % (Auto) 11.7 H Eos % (Auto) 1.7 Baso % (Auto) 0.3 Lymph # (Auto) 2.5 [place] # (Auto) 2.3 H Eos # (Auto) 0.3 Baso # (Auto) 0.1 Abs Immat Gran (auto) 0.16 H Absolute Neuts (auto) 14.1 H Absolute Nucleated RBC 0.000 Nucleated RBC % (auto) 0.0 Smear Tech's Comments VERIFIED PT 14.5 H INR 1.3 H APTT 39.7 H O2 Saturation ABG pH at Pt Temp ABG pCO2 at Pt Temp ABG pO2 at Pt Temp ABG HCO3 ABG Base Excess (Actual) VBG pH VBG pCO2 VBG pO2 VBG HCO3 VBG O2 Saturation VBG Base Excess Sodium Potassium Chloride Carbon Dioxide Anion Gap BUN Creatinine Estim Creat Clear Calc Estimated GFR POC Glucose Random Glucose Lactic Acid Calcium Phosphorus Magnesium Total Bilirubin Direct Bilirubin AST ALT Alkaline Phosphatase Total Creatine Kinase Troponin I High Sens 1007.7 H* B-Natriuretic Peptide Total Protein Albumin Urine Color Urine Appearance Urine pH Ur Specific [place] Urine Protein Urine Glucose (UA) Urine Ketones Urine Blood Urine Nitrite Ur Leukocyte Esterase Urine RBC Urine WBC Ur Squamous Epith Cells Urine Bacteria Urine Opiates Screen Urine Fentanyl Screen Ur Barbiturates Screen Ur Phencyclidine Scrn Ur Amphetamines Screen U Benzodiazepines Scrn Urine Cocaine Screen U Marijuana (THC) Screen Ethyl Alcohol COVID-19 (TIFFANIE) COVID-19 Clin Com Blood Type Antibody Screen 01/19/21 01/19/21 01/19/21 05:10 05:13 15:28 WBC 22.2 H RBC 3.78 L Hgb 12.3 L Hct 36.0 L MCV 95.2 MCH 32.5 MCHC 34.2 RDW 14.8 Plt Count 171 MPV 9.2 L Immature Gran % (Auto) 0.8 H Neut % (Auto) 81.6 H Lymph % (Auto) 7.6 L [place] % (Auto) 9.4 Eos % (Auto) 0.3 Baso % (Auto) 0.3 Lymph # (Auto) 1.7 [place] # (Auto) 2.1 H Eos # (Auto) 0.1 Baso # (Auto) 0.1 Abs Immat Gran (auto) 0.18 H Absolute Neuts (auto) 18.1 H Absolute Nucleated RBC 0.000 Nucleated RBC % (auto) 0.0 Smear Tech's Comments VERIFIED PT INR APTT O2 Saturation ABG pH at Pt Temp ABG pCO2 at Pt Temp ABG pO2 at Pt Temp ABG HCO3 ABG Base Excess (Actual) VBG pH 7.27 L VBG pCO2 59 VBG pO2 36 VBG HCO3 28 H VBG O2 Saturation 51.0 VBG Base Excess 0.1 Sodium 139 Potassium 4.6 Chloride 107 Carbon Dioxide 26 Anion Gap 11 L BUN 9 Creatinine 0.82 Estim Creat Clear Calc 79.9 Estimated GFR > 60 POC Glucose Random Glucose 88 Lactic Acid Calcium 8.4 D Phosphorus 3.2 Magnesium 2.2 Total Bilirubin 0.6 Direct Bilirubin AST 73 H ALT 95 H Alkaline Phosphatase 81 Total Creatine Kinase Troponin I High Sens B-Natriuretic Peptide Total Protein 5.9 L Albumin 3.7 Urine Color Urine Appearance Urine pH Ur Specific [place] Urine Protein Urine Glucose (UA) Urine Ketones Urine Blood Urine Nitrite Ur Leukocyte Esterase Urine RBC Urine WBC Ur Squamous Epith Cells Urine Bacteria Urine Opiates Screen Urine Fentanyl Screen Ur Barbiturates Screen Ur Phencyclidine Scrn Ur Amphetamines Screen U Benzodiazepines Scrn Urine Cocaine Screen U Marijuana (THC) Screen Ethyl Alcohol COVID-19 (TIFFANIE) COVID-19 Clin Com Blood Type Antibody Screen 01/19/21 01/19/21 15:28 15:28 WBC RBC Hgb Hct MCV MCH MCHC RDW Plt Count MPV Immature Gran % (Auto) Neut % (Auto) Lymph % (Auto) [place] % (Auto) Eos % (Auto) Baso % (Auto) Lymph # (Auto) [place] # (Auto) Eos # (Auto) Baso # (Auto) Abs Immat Gran (auto) Absolute Neuts (auto) Absolute Nucleated RBC Nucleated RBC % (auto) Smear Tech's Comments PT 17.1 H INR 1.5 H APTT 41.1 H O2 Saturation ABG pH at Pt Temp ABG pCO2 at Pt Temp ABG pO2 at Pt Temp ABG HCO3 ABG Base Excess (Actual) VBG pH VBG pCO2 VBG pO2 VBG HCO3 VBG O2 Saturation VBG Base Excess Sodium 138 Potassium 3.9 Chloride 107 Carbon Dioxide 24 Anion Gap 11 L BUN 8 L Creatinine 0.81 Estim Creat Clear Calc 80.9 Estimated GFR > 60 POC Glucose Random Glucose 215 H D Lactic Acid Calcium 8.4 Phosphorus 2.5 L Magnesium 2.1 Total Bilirubin Direct Bilirubin AST ALT Alkaline Phosphatase Total Creatine Kinase Troponin I High Sens B-Natriuretic Peptide Total Protein Albumin Urine Color Urine Appearance Urine pH Ur Specific [place] Urine Protein Urine Glucose (UA) Urine Ketones Urine Blood Urine Nitrite Ur Leukocyte Esterase Urine RBC Urine WBC Ur Squamous Epith Cells Urine Bacteria Urine Opiates Screen Urine Fentanyl Screen Ur Barbiturates Screen Ur Phencyclidine Scrn Ur Amphetamines Screen U Benzodiazepines Scrn Urine Cocaine Screen U Marijuana (THC) Screen Ethyl Alcohol COVID-19 (TIFFANIE) COVID-19 Clin Com Blood Type Antibody Screen Quality Stroke Does the patient have a stroke diagnosis?: No VTE Prior VTE?: No VTE Risk Level:: Medical - moderate - high VTE Device Contraindication: N/A - Device Ordered VTE Drug Contraindication: N/A - Med Ordered Progress Note: A&P Assessment and plan (1) CHF exacerbation: Status: Acute (2) COPD (chronic obstructive pulmonary disease): Status: Acute (3) Cocaine abuse with intoxication: Status: Acute (4) Toxic encephalopathy: Status: Acute (5) Coronary bypass graft mechanical complication: Status: Acute (6) 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: Status: Acute (7) Seizure: Status: Acute (8) NSTEMI (non-ST elevated myocardial infarction): Status: Acute (9) Atrial fibrillation: Status: Acute (10) Atrial flutter: Status: Acute (11) Cardiac arrest: Status: Acute (12) Seizure-like activity: Status: Acute (13) Paroxysmal atrial fibrillation: Status: Acute (14) CAD (coronary artery disease): Status: Acute Assessment and Plan: Will maintain IV Versed gradually rewarming him to targeted temperature between 97 and 98? F following CVP electrolytes coagulation status etc. keep him on the IV amiodarone protocol ventilator management and try to wean sedation for holiday check on his cognitive function in the morning
[2021-01-19] MEDS: Phenylephrine HCL 20 MG in 0.9 % Sodium Chloride 250 ML 28.35 MG IVCONT (18:24)
[2021-01-19] MEDS: Atorvastatin Calcium 40 MG TABLET PO (21:33)
[2021-01-20] VITALS (33 sets, daily range): BP systolic 98–152; BP diastolic 50–78; PULSE 58–136; RESP 20–34; TEMP 37.1–38.3; O2SAT 92–99
[2021-01-20] MEDS: dexmedeTOMIDidine HCL/NS 400 MCG/100 ML INFUS..BTL 17.3 MCG IVCONT ×2 (02:22→02:32)
[2021-01-20] MEDS: Phenylephrine HCL 20 MG in 0.9 % Sodium Chloride 250 ML 17.01 MG IVCONT (02:29)
[2021-01-20] MEDS: Midazolam HCl/NS 50 MG/50 ML PLAST..BAG 8 MG IVCONT (02:31)
[2021-01-20] MEDS: levETIRAcetam in NaCl (iso-os) 500 MG/100 ML PIGGYBACK 400 MG IV ×2 (04:48→16:29)
[2021-01-20 05:36] LABS: VBG Base Excess -2.4 mmol/L; VBG HCO3 21 mmol/L (22-26); VBG pCO2 34 mmHg; VBG pO2 41 mmHg
[2021-01-20 05:52] LABS: Basophils Percent Auto 0.2 % (0-2); Eosinophils Absolute Auto 0.2 X10*3/uL (0.0-0.4); Eosinophils Percent Auto 0.9 % (0-4); Hematocrit 35.4 % (42-52); Hemoglobin 12.1 g/dl (14.0-18.0); Imm Gran Abs Auto 0.18 X10*3/uL (0.00-0.03); Imm Gran Pct Auto 0.8 % (0.0-0.4); Lymphocytes Absolute Auto 1.5 X10*3/uL (1.2-4.9); Lymphocytes Percent Auto 6.8 % (20-40); MANUAL DIFF FLAG SCAN; Mean Corpuscular HGB Conc 34.2 g/dl (31.0-36.0); Mean Corpuscular Hemoglobin 32.3 pg (27.0-33.0); Mean Corpuscular Volume 94.4 fL (80-98); Mean Platelet Volume 9.3 fL (9.4-12.4); Monocytes Absolute Auto 2.5 X10*3/uL (0.1-1.2); Monocytes Percent Auto 11.1 % (2-11); Neutrophils Absolute Auto 17.9 X10*3/uL (2.0-8.3); Neutrophils Percent Auto 80.2 % (45-73); Platelet Count 160 X10*3/uL (160-400); Red Blood Count 3.75 X10*6/uL (4.60-5.80); Red Cell Distribution Width 14.7 % (11.0-16.0); SCAN SMEAR FLAG 1; White Blood Count 22.4 X10*3/uL (4.8-10.8)
[2021-01-20 06:06] LABS: INTERNATIONAL NORM RATIO 1.6 (0.9-1.1); Prothrombin Time 18.3 SEC (9.9-13.0)
[2021-01-20 06:09] LABS: Partial Thromboplastin Time 38.8 SEC (24.1-38.0)
[2021-01-20 06:10] LABS: Anion Gap 13 (12-20); Blood Urea Nitrogen 8 mg/dL (9-16); Calcium 8.3 mg/dL (8.4-10.2); Carbon Dioxide 22 mmol/L (22-29); Chloride 108 mmol/L (96-108); Creatinine Clr Calc Pharmacy 78.8; Estimated Glomerular Filt Rate > 60; Glucose Random 131 mg/dL (60-115); Magnesium 1.9 mg/dL (1.6-2.6); Potassium 4.3 mmol/L (3.3-5.1); Sodium 139 mmol/L (135-145)
[2021-01-20 06:24] LABS: Venous Blood Gas Refer to POC result
[2021-01-20 06:26] LABS: SLIDE REVIEW VERIFIED
--- NOTE | 2021-01-20 06:33 | PC.NURSE ---
CARE ASSUMED 23:15...REMAINS TUBED/VENTED PCV MODE...AC 16/IP 14/FIO2 30%/PEEP 5...Ve 10-11 L/M...SAO2 96-97%...NSR/S.ZINA HR 58-62...AMIODARONE 0.5 MG/MIN...PRECEDEX WEAN FROM 1.0 TO O.8 MCG/KG/HR & VERSED 8 TO 4 MG/HR...REMAINS UNRESPONSIVE/FLACCID/NO COUGH REFLEX...REMAINS WITH VENT SYNCHRONY...NEOSYNEPHRINE DRIP WEANED FROM 0.5 TO 0.2 MCG/KGMIN...SBP DECREASED FROM 130'S-140'S TO 110'S...DECREASED URINE OUTPUT..NEOSYNEPHRINE TITRATED TO 0.4 MCG/KG/MIN WITH MARKEDLY IMPROVED OUTPUT...CVP 7-8
[2021-01-20] MEDS: Albuterol/Iprat 2.5/0.5MG 3 ML AMPUL.NEB INHALE ×4 (08:06→20:19)
[2021-01-20] MEDS: Apixaban 5 MG TABLET PO ×2 (08:50→22:03)
[2021-01-20] MEDS: Aspirin 81 MG TAB.CHEW PO (08:50)
[2021-01-20] MEDS: Chlorhexidine Gluc Oral Rinse 15 ML MOUTHWASH BUCCAL ×3 (08:50→22:02)
[2021-01-20] MEDS: Amiodarone HCL 900 MG in 0.9 % Sodium Chloride 500 ML 17.27 MG IVCONT (09:04)
[2021-01-20] MEDS: Midazolam HCl/NS 50 MG/50 ML PLAST..BAG IVCONT (09:04)
[2021-01-20] MEDS: propofoL 1,000 MG/100 ML VIAL 8.3 MG IVCONT ×2 (10:50→18:23)
--- NOTE | 2021-01-20 12:56 | PC.NURSE ---
Addendum entered by Kathryn Aguirre RN 01/20/21 13:07: Around 1015 patients temp noted to be 101.1. Notified DR. Potter. Blood, sputum, and urine cultures ordered and collected. 1 g IV Meropenem x 1 dose and 1 g IV Vancomycin x1 dose ordered per MD. Original Note: At beginning of shift Precedex DC. Patient remained on Versed for sedation. Around 10:00 patient became restless but remained unable to follow commands. Patient also asynchronous with the vent with an increased respiratory effort and rate of 35. covering for notified via telephone. Propofol drip started per MD with good effect. Patient appears more relaxed. Synchronous with the vent. Decreased respiratory effort and rate now trending in the low 20s. Remains on the same vent settings: PC rate 16, iP 14, peep 5, fio2 30%.
[2021-01-20] MEDS: Phenylephrine HCL 20 MG in 0.9 % Sodium Chloride 250 ML 22.68 MG IVCONT (13:31)
[2021-01-20] MEDS: vancomycin HCL 1,000 MG in 0.9 % Sodium Chloride 250 ML 270 MG IV (13:37)
--- NOTE | 2021-01-20 16:43 | P.PNCC_ITS ---
Subjective Subjective Date of Service: 01/20/21 Interval History: 66-year-old polysubstance abuser same pattern cocaine fentanyl and other opioids witnessed syncope and somewhat confusing story from EMS questionably pulseless shockable rhythm and he was shocked but he has a wide QRS and he is at rapid atrial flutter so hard to say but he seemed to be in status epilepticus on presentation he began to posture and you could tell by his eye movement but he was rapidly paralyzed for intubation so we lost our exam and with acute hypertension and tachycardia assuming hyper sympathetic state I empirically gave him IV Versed and that activity namely the elevated blood pressure seem to settle down from 220 to 176 and I thought maybe consistent with relief of nonconvulsive status epilepticus This was the 2nd episode of witnessed seizure activity that he has had so I loaded him with a g of Keppra and kept him on a maintenance dose and for sedation I maintained IV Versed so we had to anticonvulsants on board was central line placement I addressed the rapid atrial flutter at 2 1 because clearly this was providing some respiratory distress and a with bedside echo bedside echo demonstrating severe diffuse hypokinesis of the ventricle he clearly has an underlying ischemic/congestive cardiomyopathy and acute systolic and diastolic CHF exacerbated by the rapid atrial flutter so I started IV Cardizem for rate control because of the presence of cocaine placed him on assist control and he was treated with 24 hours of targeted hypothermia without complication since we warmed without complication and central venous pressures averaging 7-8 throughout he was able to come off of pressors and actually converted on the Cardizem to normal sinus rhythm so I stop Cardizem switched to amiodarone to hold on to the sinus rhythm with no documented QT prolongation and since then his FiO2 was weaned to 30% is minutes ventilatory requirements a little over 10 liters/minute renal function remained well preserved despite the hypotension Critical Care Time (minutes): 60 Physical Exam Vital Signs: Vital Signs: Last Vital Signs Temp 100.6 F H 01/20/21 16:00 Pulse 79 01/20/21 16:00 Resp 28 H 01/20/21 16:00 BP 124/64 01/20/21 16:00 Pulse Ox 98 01/20/21 16:00 Body Mass Index 24.6 Sedated and intubated able to move all 4 extremities Lungs with diminished bilateral breath sounds and no adventitious sounds Abdomen soft no organomegaly Skin is intact Objective Data Labs CBC & Chem 7: 09/12/21 05:09 01/21/21 05:09 Labs: Laboratory Results - last 24 hr 01/20/21 01/20/21 01/20/21 05:25 05:25 05:25 WBC 22.4 H RBC 3.75 L Hgb 12.1 L Hct 35.4 L MCV 94.4 MCH 32.3 MCHC 34.2 RDW 14.7 Plt Count 160 MPV 9.3 L Immature Gran % (Auto) 0.8 H Neut % (Auto) 80.2 H Lymph % (Auto) 6.8 L [place] % (Auto) 11.1 H Eos % (Auto) 0.9 Baso % (Auto) 0.2 Lymph # (Auto) 1.5 [place] # (Auto) 2.5 H Eos # (Auto) 0.2 Baso # (Auto) 0.0 Abs Immat Gran (auto) 0.18 H Absolute Neuts (auto) 17.9 H Absolute Nucleated RBC 0.000 Nucleated RBC % (auto) 0.0 Smear Tech's Comments VERIFIED PT 18.3 H INR 1.6 H APTT 38.8 H VBG pH VBG pCO2 VBG pO2 VBG HCO3 VBG O2 Saturation VBG Base Excess Sodium 139 Potassium 4.3 Chloride 108 Carbon Dioxide 22 Anion Gap 13 BUN 8 L Creatinine 0.82 Estim Creat Clear Calc 78.8 Estimated GFR > 60 Random Glucose 131 H D Calcium 8.3 L Magnesium 1.9 01/20/21 05:30 WBC RBC Hgb Hct MCV MCH MCHC RDW Plt Count MPV Immature Gran % (Auto) Neut % (Auto) Lymph % (Auto) [place] % (Auto) Eos % (Auto) Baso % (Auto) Lymph # (Auto) [place] # (Auto) Eos # (Auto) Baso # (Auto) Abs Immat Gran (auto) Absolute Neuts (auto) Absolute Nucleated RBC Nucleated RBC % (auto) Smear Tech's Comments PT INR APTT VBG pH 7.40 VBG pCO2 34 VBG pO2 41 VBG HCO3 21 L VBG O2 Saturation 67.0 VBG Base Excess -2.4 Sodium Potassium Chloride Carbon Dioxide Anion Gap BUN Creatinine Estim Creat Clear Calc Estimated GFR Random Glucose Calcium Magnesium Microbiology Microbiology Results: Microbiology 01/18/21 17:25 Blood - Venous Blood Culture - Preliminary No growth after 24 hours. 01/18/21 17:25 Blood - Venous Blood Culture - Preliminary No growth after 24 hours. Quality Stroke Does the patient have a stroke diagnosis?: No VTE Prior VTE?: No VTE Risk Level:: Medical - moderate - high VTE Device Contraindication: N/A - Device Ordered VTE Drug Contraindication: N/A - Med Ordered Progress Note: A&P Assessment and plan (1) CHF exacerbation: Status: Acute (2) COPD (chronic obstructive pulmonary disease): Status: Acute (3) Cocaine abuse with intoxication: Status: Acute (4) Toxic encephalopathy: Status: Acute (5) Coronary bypass graft mechanical complication: Status: Acute (6) 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: Status: Acute (7) Seizure: Status: Acute (8) NSTEMI (non-ST elevated myocardial infarction): Status: Acute (9) Atrial fibrillation: Status: Acute (10) Atrial flutter: Status: Acute (11) Cardiac arrest: Status: Acute (12) Seizure-like activity: Status: Acute (13) Paroxysmal atrial fibrillation: Status: Acute (14) CAD (coronary artery disease): Status: Acute Assessment and Plan: Plan is I indicated is ventilator assistance IV amiodarone drip and continued maintenance of Keppra and possibly in the morning sedation vacation assess his cognitive function and if adequate try to wean the ventilator on a pressure support trial if he fails to wean could be an indication that he might need if his blood pressure tolerates vaso dilator therapy possible RICH-inhibitor or ARB and depending on CVP possible anti aldosterone and agent in addition which might help weaned ventilator
[2021-01-20] MEDS: Doxycycline Hyclate 100 MG in 0.9 % Sodium Chloride 250 ML 166.67 MG IV (17:26)
[2021-01-20 17:53] LABS: HIV AB/AG Nonreactive (Nonreactive); HIV Num 1 0.08 S/CO (0.00-0.99)
--- NOTE | 2021-01-20 21:51 | W.PM.IDCN ---
History of Present Illness Data of Consult Service Date: 01/20/21 Requesting physician: Henna Potter Primary Care Provider: Karla Seo NP HPI Reason for consult: respiratory failure He presents to hospital with overdose,given Narcan by EMS He has used heroin and cocaine and had previous overdose. He has fever daily to 101. He has layering right base effusion Review of Systems Review of Systems: Yes unobtainable due to endotracheal tube PMFSH Past Medical History Medical History Atrial fibrillation CAD (coronary artery disease) CHF (congestive heart failure) Cocaine abuse with intoxication COPD (chronic obstructive pulmonary disease) Drug abuse 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 Heroin use Hyperlipemia Paroxysmal atrial fibrillation PVD (peripheral vascular disease) Toxic encephalopathy Family History Family history: reviewed and not pertinent Surgical History Surgical History S/P CABG x 2 Social History Social History Household Members: Unknown / Unable to assess Housing: Unknown / Unable to assess Unable to assess alcohol history related to: Unable to respond Alcohol intake: never Patient Tobacco Use Status: Current everyday Tobacco user Tobacco use type: Cigarette Cigarettes Per Day: 5 e-Cigarette/Vaping Use: Never Used Substance Use Type: Crack/Cocaine, Opiates, Painkillers and Prescription Drugs Advance Directives Date on File: 01/12/21 service: No Current occupational status: retired Meds Allergies Allergy/AdvReac Type Severity Reaction Status Date / Time No Known Allergies Allergy Unverified 01/12/21 01:03 Active Medications: Current Medications Generic Name Dose Route Start Last Admin Trade Name Freq PRN Reason Stop Dose Admin Albuterol/Ipratropium 3 ml 01/19/21 08:00 01/20/21 20:19 Albuterol/Iprat 2.5/0.5mg 3 Ml Ampul.Neb INHALE 3 ml RQ4H WHILE AWAKE CARLIE Administration Apixaban 5 mg 01/18/21 21:00 01/20/21 08:50 Apixaban 5 Mg Tablet PO 5 mg BID CARLIE Administration Aspirin 81 mg 01/19/21 09:00 01/20/21 08:50 Aspirin 81 Mg Tab.Chew PO 81 mg DAILY CARLIE Administration Atorvastatin Calcium 40 mg 01/18/21 21:00 01/19/21 21:33 Atorvastatin Calcium 40 Mg Tablet PO 40 mg BEDTIME CARLIE Administration Chlorhexidine Gluconate 15 ml 01/19/21 09:00 01/20/21 13:30 Chlorhexidine Gluc Oral Rinse 15 Ml Mouthwash BUCCAL 15 ml TID CARLIE Administration Phenylephrine HCl 20 mg/ 252 mls @ 0 mls/hr 01/18/21 17:30 01/20/21 21:36 Sodium Chloride IVCONT 0.6 mcg/kg/min .Q0M CARLIE 34.02 mls/hr Titration Protocol Per Protocol Levetiracetam 500 mg in 100 mls @ 400 mls/hr 01/19/21 05:00 01/20/21 16:57 Keppra IV Infused Q12H CARLIE Infusion Midazolam HCl 50 mg in 50 mls @ 2 mls/hr 01/18/21 20:15 01/20/21 15:14 Versed IVCONT 2 mg/hr .Q24H CARLIE 2 mls/hr Infusion 2 MG/HR Amiodarone HCl 900 mg/ Sodium 518 mls @ 34.533 mls/hr 01/19/21 07:00 01/20/21 09:04 Chloride IVCONT 0.5 mg/min .Q15H1M CARLIE 17.27 mls/hr Administration Protocol 1 MG/MIN Propofol 1,000 mg in 100 mls @ 0 mls/hr 01/20/21 10:45 01/20/21 21:36 Diprivan IVCONT 30 mcg/kg/min .Q0M CARLIE 12.46 mls/hr Titration Protocol Per Protocol Doxycycline Hyclate 100 mg/ 250 mls @ 166.67 mls/hr 01/20/21 18:00 01/20/21 19:05 Sodium Chloride IV Infused Q12H CARLIE Infusion Omeprazole 20 mg 01/19/21 06:45 01/20/21 04:49 Omeprazole 20 Mg/10 Ml Susp.Recon PO 20 mg DAILY@0630 [facility], [facility] Administration Pharmacy Consult 1 each 01/18/21 15:36 Consult Rx Perform Med Rec MISCELLANE ONCE PRN Consult order Home Medications Medication Instructions Recorded Confirmed Last Taken Type apixaban 5 mg tablet (Eliquis) 5 mg PO BID 01/12/21 01/18/21 01/11/21 19:00 History aspirin 81 mg tablet 81 mg PO DAILY 01/12/21 01/18/21 01/11/21 08:00 History atorvastatin 40 mg tablet 40 mg PO BEDTIME 01/12/21 01/18/21 01/11/21 19:00 History clonidine HCl 0.1 mg tablet 0.1 mg PO BID 01/12/21 01/18/21 Unknown History metoprolol tartrate 25 mg tablet 25 mg PO BID 01/12/21 01/18/21 01/11/21 19:00 History nitroglycerin 0.4 mg sublingual 0.4 mg SUBLINGUAL NEEDED 01/12/21 01/18/21 01/08/21 History tablet omeprazole 20 mg capsule,delayed 20 mg PO DAILY 01/12/21 01/18/21 01/11/21 08:00 History release pentoxifylline 400 mg 1 tab PO BID 01/18/21 01/18/21 Unknown History tablet,extended release Physical Exam Vital Signs: Vital Signs: Last Vital Signs Temp 100.4 F 01/20/21 20:59 Pulse 119 H 01/20/21 20:59 Resp 32 H 01/20/21 20:59 BP 103/53 L 01/20/21 20:59 Pulse Ox 96 01/20/21 20:59 Body Mass Index 24.6 Const: General: cooperative HENMT: Head: Yes normal to inspection Mouth: Normal oral and palatal mucosa present Eyes: General: appearance normal, both eyes and all related structures Resp: Other: ventilated Cardio: Rate: regular rate Rhythm: regular rhythm GI: Palpation (GI): Soft to palpation and nontender : Other: [place] Extrem: General: Yes normal to inspection Results Labs CBC & Chem 7: 01/26/21 05:53 01/26/21 05:53 Labs: Short CBC 01/20/21 Range/Units 05:25 WBC 22.4 H (4.8-10.8) X10*3/uL Hgb 12.1 L (14.0-18.0) g/dl Hct 35.4 L (42-52) % Plt Count 160 (160-400) X10*3/uL BMP 01/20/21 05:25 Sodium 139 Potassium 4.3 Chloride 108 Carbon Dioxide 22 BUN 8 L Creatinine 0.82 Calcium 8.3 L Microbiology Microbiology Results: Microbiology 01/18/21 17:25 Blood - Venous Blood Culture - Preliminary No growth after 48 hours. 01/18/21 17:25 Blood - Venous Blood Culture - Preliminary No growth after 48 hours. Assessment and Plan (1) Toxic encephalopathy: Status: Resolved Fever likely due to drug intoxication as well as possible lung infection There is possibility of atypical lung infection causing ongoing respiratory distress He could have aspiration pneumonia with gram negatives and anerobes,particularly if fever persists He may have immunosuppressed state due to drug use ?HIV or hepatitis C Underlying COPD or CHF may worsen respiratory status (2) Cocaine abuse with intoxication: Status: Resolved (3) CHF exacerbation: Status: Resolved Would await blood cultures Nares MRSA Urine Legionella antigen Check HIV test Doxycycline 100 mg bid Would add back Vancomycin and Zosyn if fever persists cover aspiration and possible MRSA. Ty for consult
[2021-01-20] MEDS: Atorvastatin Calcium 40 MG TABLET PO (22:02)
[2021-01-20] MEDS: fentaNYL citrate/PF 100 MCG/2 ML VIAL 50 MCG IVPUSH (22:59)
[2021-01-20] MEDS: Phenylephrine HCL 20 MG in 0.9 % Sodium Chloride 250 ML 45.36 MG IVCONT (23:14)
[2021-01-21] VITALS (33 sets, daily range): BP systolic 105–167; BP diastolic 53–126; PULSE 68–137; RESP 12–28; TEMP 36–37.7; O2SAT 92–99; BMI 24.9
[2021-01-21] MEDS: propofoL 1,000 MG/100 ML VIAL 12.46 MG IVCONT (01:43)
[2021-01-21] MEDS: Midazolam HCl/NS 50 MG/50 ML PLAST..BAG IVCONT ×2 (01:43→04:47)
[2021-01-21] MEDS: Chlorhexidine Gluc Oral Rinse 15 ML MOUTHWASH BUCCAL ×3 (04:45→20:24)
[2021-01-21] MEDS: levETIRAcetam in NaCl (iso-os) 500 MG/100 ML PIGGYBACK 400 MG IV ×2 (04:46→17:20)
[2021-01-21] MEDS: Phenylephrine HCL 20 MG in 0.9 % Sodium Chloride 250 ML 45.36 MG IVCONT (04:46)
[2021-01-21] MEDS: Doxycycline Hyclate 100 MG in 0.9 % Sodium Chloride 250 ML 166.67 MG IV ×2 (05:17→16:44)
[2021-01-21 05:27] LABS: VBG Base Excess 0.7 mmol/L; VBG HCO3 24 mmol/L (22-26); VBG pCO2 36 mmHg; VBG pH 7.43 (7.32-7.43); VBG pO2 51 mmHg
[2021-01-21 05:29] LABS: Venous Blood Gas Refer to POC result
[2021-01-21 05:43] LABS: Basophils Absolute Auto 0.1 X10*3/uL (0.0-0.2); Basophils Percent Auto 0.3 % (0-2); Eosinophils Absolute Auto 0.2 X10*3/uL (0.0-0.4); Eosinophils Percent Auto 1.5 % (0-4); Hematocrit 32.1 % (42-52); Hemoglobin 10.7 g/dl (14.0-18.0); Imm Gran Abs Auto 0.09 X10*3/uL (0.00-0.03); Imm Gran Pct Auto 0.6 % (0.0-0.4); Lymphocytes Absolute Auto 2.1 X10*3/uL (1.2-4.9); Lymphocytes Percent Auto 13.4 % (20-40); MANUAL DIFF FLAG SCAN; Mean Corpuscular HGB Conc 33.3 g/dl (31.0-36.0); Mean Corpuscular Hemoglobin 31.6 pg (27.0-33.0); Mean Corpuscular Volume 94.7 fL (80-98); Mean Platelet Volume 9.7 fL (9.4-12.4); Monocytes Absolute Auto 2.2 X10*3/uL (0.1-1.2); Monocytes Percent Auto 13.8 % (2-11); Neutrophils Absolute Auto 11.1 X10*3/uL (2.0-8.3); Neutrophils Percent Auto 70.4 % (45-73); Platelet Count 163 X10*3/uL (160-400); Red Blood Count 3.39 X10*6/uL (4.60-5.80); Red Cell Distribution Width 14.8 % (11.0-16.0); SCAN SMEAR FLAG 1; White Blood Count 15.7 X10*3/uL (4.8-10.8)
[2021-01-21 05:48] LABS: INTERNATIONAL NORM RATIO 1.7 (0.9-1.1); Prothrombin Time 19.8 SEC (9.9-13.0)
[2021-01-21 05:51] LABS: Partial Thromboplastin Time 37.9 SEC (24.1-38.0)
[2021-01-21 05:54] LABS: Phosphorus 2.1 mg/dL (2.7-4.5)
[2021-01-21 06:03] LABS: Anion Gap 12 (12-20); Blood Urea Nitrogen 7 mg/dL (9-16); Carbon Dioxide 24 mmol/L (22-29); Chloride 109 mmol/L (96-108); Creatinine Clr Calc Pharmacy 79.8; Estimated Glomerular Filt Rate > 60; Glucose Random 110 mg/dL (60-115); Magnesium 1.9 mg/dL (1.6-2.6); Phosphorus 2.1 mg/dL (2.7-4.5); Potassium 3.6 mmol/L (3.3-5.1); Sodium 141 mmol/L (135-145)
[2021-01-21 06:15] LABS: SLIDE REVIEW VERIFIED
[2021-01-21] MEDS: Aspirin 81 MG TAB.CHEW PO (07:42)
[2021-01-21] MEDS: Apixaban 5 MG TABLET PO ×2 (07:42→20:24)
[2021-01-21] MEDS: Albuterol/Iprat 2.5/0.5MG 3 ML AMPUL.NEB INHALE ×4 (08:49→20:03)
[2021-01-21 10:28] LABS: MRSA Nasal PCR NEGATIVE (Negative); SA Nasal PCR POSITIVE (Negative)
[2021-01-21] MEDS: Piperacillin Sodium/Tazobactam 4.5 GM in 0.9 % Sodium Chloride 100 ML IV ×3 (11:55→22:38)
[2021-01-21] MEDS: Amiodarone HCL 900 MG in 0.9 % Sodium Chloride 500 ML 17.27 MG IVCONT (11:55)
--- NOTE | 2021-01-21 13:04 | PC.NURSE ---
07:20 sedation vacation from Propofol and Versed initiated. Patrick drip shut off for BP of 140/70. Patient still requiring frequent oral and inline suctioning for copious amounts of thick yellow sputum inline. Around 0800 patient placed on PS 22/5 30% fio2 by RT. Patient drowsy initially and tolerating PS settings. Around 10:00 patient became more wakeful, open eyes spontaneously and to commands. Able to follow simple commands. With increased wakefulness, patient unable to tolerate PS settings, patient became tachycardic with HR in the 140 continuing to alternate between ST and F.flutter on tele while remaining on Amiodarone drip. BP trending around 152/92. Respiratory effort increased and tachypnia noted with RR of 45. MD aware with RT at beside. Per MD, patient re-sedated with Propofol and placed back on AC settings rate 16, tidal vol 450, peep 5, fio2 30% by RT. Patient sedated to RASS score of 3-4 and remains synchrouns with vent. Tolerating without Patrick drip at this time, remains off Versed. Will monitor BP and possible need to restart Patrick. Patient's brother update with health status, aware sedation vacation was performed and need for patient to remain on vent at this time. Patient shaved and TLC dressing changed. Sputum culture positive for staph aureus. Zosyn added and administered.
--- NOTE | 2021-01-21 16:03 | P.PNCC_ITS ---
Subjective Subjective Date of Service: 01/21/21 Interval History: 66-year-old polysubstance abuser with witnessed syncope was in status epilepticus questionably shockable rhythm verses his naturally wide QRS in the face of rapid atrial flutter but he was shocked they thought he was pulseless and brought in in clinical status epilepticus he was intubated during which time paralyzed so examination for seizure activity difficult but acutely hypertensive over 220 systolic clinically in in acute CHF and probably in nonconvulsive status and was given IV Versed with blood pressure coming down to 176 and then we controlled heart rate with IV Cardizem and on the ventilatory ventilator support he converted back to sinus rhythm we began to wean his FiO2 and is currently at 30% with just under 10 L minutes ventilation requirement sedation holiday he started to demonstrate some cognitive function open eyes to command but had some respiratory distress and we know that 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 He was treated with 24 hours of targeted hypothermia and he had no complications during that time nor during the rewarming He had temperature spikes was completely cultured and growing staph aureus we do not know if it is methicillin-resistant but there was a question of aspiration he clearly was at risk so he is now being empirically covered with Zosyn Critical Care Time (minutes): 60 Physical Exam Vital Signs: Vital Signs: Last Vital Signs Temp 99.1 F 01/21/21 16:00 Pulse 76 01/21/21 16:00 Resp 12 01/21/21 16:00 BP 135/72 01/21/21 16:00 Pulse Ox 97 01/21/21 16:00 Body Mass Index 24.9 When he awakened he he began to demonstrate some early cognitive function and he is nonfocal neurologically no evidence of seizure activity Abdomen benign no organomegaly good bowel sounds Chest with diminished bilateral breath sounds but no adventitious sounds CVP 7-8 but no peripheral edema and intact skin Objective Data Labs CBC & Chem 7: 01/21/21 05:09 01/21/21 05:09 Labs: Laboratory Results - last 24 hr 01/20/21 01/20/21 01/21/21 16:56 17:54 05:09 WBC RBC Hgb Hct MCV MCH MCHC RDW Plt Count MPV Immature Gran % (Auto) Neut % (Auto) Lymph % (Auto) [place] % (Auto) Eos % (Auto) Baso % (Auto) Lymph # (Auto) [place] # (Auto) Eos # (Auto) Baso # (Auto) Abs Immat Gran (auto) Absolute Neuts (auto) Absolute Nucleated RBC Nucleated RBC % (auto) Smear Tech's Comments PT INR APTT VBG pH VBG pCO2 VBG pO2 VBG HCO3 VBG O2 Saturation VBG Base Excess Sodium Potassium Chloride Carbon Dioxide Anion Gap BUN Creatinine Estim Creat Clear Calc Estimated GFR Random Glucose Calcium Phosphorus 2.1 L Magnesium Nasal Screen MRSA (PCR) NEGATIVE Nasal S. aureus Screen POSITIVE A Nasal MRSA/S.aureus Interp SEE NOTE HIV 1&2 Ab/P24 Ag 4thGn Nonreactive 01/21/21 01/21/21 01/21/21 05:09 05:09 05:09 WBC 15.7 H RBC 3.39 L Hgb 10.7 L Hct 32.1 L MCV 94.7 MCH 31.6 MCHC 33.3 RDW 14.8 Plt Count 163 MPV 9.7 Immature Gran % (Auto) 0.6 H Neut % (Auto) 70.4 Lymph % (Auto) 13.4 L [place] % (Auto) 13.8 H Eos % (Auto) 1.5 Baso % (Auto) 0.3 Lymph # (Auto) 2.1 [place] # (Auto) 2.2 H Eos # (Auto) 0.2 Baso # (Auto) 0.1 Abs Immat Gran (auto) 0.09 H Absolute Neuts (auto) 11.1 H Absolute Nucleated RBC 0.000 Nucleated RBC % (auto) 0.0 Smear Tech's Comments VERIFIED PT 19.8 H INR 1.7 H APTT 37.9 VBG pH VBG pCO2 VBG pO2 VBG HCO3 VBG O2 Saturation VBG Base Excess Sodium 141 Potassium 3.6 Chloride 109 H Carbon Dioxide 24 Anion Gap 12 BUN 7 L Creatinine 0.81 Estim Creat Clear Calc 79.8 Estimated GFR > 60 Random Glucose 110 Calcium 8.0 L Phosphorus 2.1 L Magnesium 1.9 Nasal Screen MRSA (PCR) Nasal S. aureus Screen Nasal MRSA/S.aureus Interp HIV 1&2 Ab/P24 Ag 4thGn 01/21/21 05:22 WBC RBC Hgb Hct MCV MCH MCHC RDW Plt Count MPV Immature Gran % (Auto) Neut % (Auto) Lymph % (Auto) [place] % (Auto) Eos % (Auto) Baso % (Auto) Lymph # (Auto) [place] # (Auto) Eos # (Auto) Baso # (Auto) Abs Immat Gran (auto) Absolute Neuts (auto) Absolute Nucleated RBC Nucleated RBC % (auto) Smear Tech's Comments PT INR APTT VBG pH 7.43 VBG pCO2 36 VBG pO2 51 VBG HCO3 24 VBG O2 Saturation 78.0 VBG Base Excess 0.7 Sodium Potassium Chloride Carbon Dioxide Anion Gap BUN Creatinine Estim Creat Clear Calc Estimated GFR Random Glucose Calcium Phosphorus Magnesium Nasal Screen MRSA (PCR) Nasal S. aureus Screen Nasal MRSA/S.aureus Interp HIV 1&2 Ab/P24 Ag 4thGn Microbiology Microbiology Results: Microbiology 01/20/21 12:16 Blood - Venous Blood Culture - Preliminary No growth after 24 hours. 01/20/21 12:15 Blood - Venous Blood Culture - Preliminary No growth after 24 hours. 01/20/21 12:03 Urine Catheterized - [place] Catheter Urine Culture - Final No growth. 01/20/21 12:03 Sputum - Suctioned Gram Stain - Final 01/20/21 12:03 Sputum - Suctioned Sputum Culture - Preliminary Staphylococcus aureus 01/18/21 17:25 Blood - Venous Blood Culture - Preliminary No growth after 48 hours. 01/18/21 17:25 Blood - Venous Blood Culture - Preliminary No growth after 48 hours. Quality Stroke Does the patient have a stroke diagnosis?: No VTE Prior VTE?: No VTE Risk Level:: Medical - moderate - high VTE Device Contraindication: N/A - Device Ordered VTE Drug Contraindication: N/A - Med Ordered Progress Note: A&P Assessment and plan (1) CHF exacerbation: Status: Acute (2) COPD (chronic obstructive pulmonary disease): Status: Acute (3) Cocaine abuse with intoxication: Status: Acute (4) Toxic encephalopathy: Status: Acute (5) Coronary bypass graft mechanical complication: Status: Acute (6) 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: Status: Acute (7) NSTEMI (non-ST elevated myocardial infarction): Status: Acute (8) Atrial fibrillation: Status: Acute (9) Atrial flutter: Status: Acute (10) Cardiac arrest: Status: Acute (11) Paroxysmal atrial fibrillation: Status: Acute (12) CAD (coronary artery disease): Status: Acute (13) Aspiration pneumonitis: Status: Acute Assessment and Plan: The IV Zosyn for his pneumonia and continued Keppra as seizure prophylaxis being that this is his 2nd time and for his congestive cardiomyopathy I would suggest introduction of an ARB at least before trying to do a pressure support wean again and he is currently only on propofol so hopefully sedation holiday in the morning will be easy
[2021-01-21] MEDS: propofoL 1,000 MG/100 ML VIAL 8.3 MG IVCONT (16:26)
[2021-01-21] MEDS: Atorvastatin Calcium 40 MG TABLET PO (20:24)
[2021-01-22] VITALS (34 sets, daily range): BP systolic 119–169; BP diastolic 63–117; PULSE 28–82; RESP 16–27; TEMP 37.1–37.5; O2SAT 90–98; BMI 25.2
[2021-01-22] MEDS: propofoL 1,000 MG/100 ML VIAL 12.46 MG IVCONT ×2 (00:13→06:08)
[2021-01-22] MEDS: Piperacillin Sodium/Tazobactam 4.5 GM in 0.9 % Sodium Chloride 100 ML IV (04:55)
[2021-01-22] MEDS: levETIRAcetam in NaCl (iso-os) 500 MG/100 ML PIGGYBACK 400 MG IV ×2 (04:55→16:49)
[2021-01-22 05:05] LABS: MANUAL DIFF FLAG NO
[2021-01-22 05:07] LABS: Basophils Percent Auto 0.3 % (0-2); Eosinophils Absolute Auto 0.5 X10*3/uL (0.0-0.4); Eosinophils Percent Auto 4.4 % (0-4); Hematocrit 31.5 % (42-52); Hemoglobin 10.9 g/dl (14.0-18.0); Imm Gran Abs Auto 0.03 X10*3/uL (0.00-0.03); Imm Gran Pct Auto 0.3 % (0.0-0.4); Lymphocytes Absolute Auto 1.9 X10*3/uL (1.2-4.9); Lymphocytes Percent Auto 16.8 % (20-40); Mean Corpuscular HGB Conc 34.6 g/dl (31.0-36.0); Mean Corpuscular Hemoglobin 32.5 pg (27.0-33.0); Mean Platelet Volume 9.4 fL (9.4-12.4); Monocytes Absolute Auto 1.2 X10*3/uL (0.1-1.2); Monocytes Percent Auto 10.7 % (2-11); Neutrophils Absolute Auto 7.7 X10*3/uL (2.0-8.3); Neutrophils Percent Auto 67.5 % (45-73); Platelet Count 154 X10*3/uL (160-400); Red Blood Count 3.35 X10*6/uL (4.60-5.80); Red Cell Distribution Width 14.9 % (11.0-16.0); White Blood Count 11.4 X10*3/uL (4.8-10.8)
[2021-01-22 05:10] LABS: VBG Base Excess 1.2 mmol/L; VBG HCO3 24 mmol/L (22-26); VBG pCO2 34 mmHg; VBG pH 7.46 (7.32-7.43); VBG pO2 57 mmHg
[2021-01-22 05:11] LABS: Venous Blood Gas Refer to POC result
[2021-01-22 05:16] LABS: INTERNATIONAL NORM RATIO 1.8 (0.9-1.1); Prothrombin Time 21.2 SEC (9.9-13.0)
[2021-01-22 05:19] LABS: Partial Thromboplastin Time 37.5 SEC (24.1-38.0)
[2021-01-22 05:44] LABS: Alanine Aminotransferase 38 U/L (0-40); Albumin Level 3.1 g/dL (3.5-5.0); Alkaline Phosphatase 66 U/L (39-117); Anion Gap 13 (12-20); Aspartate Amino Transferase 23 U/L (5-37); Bilirubin Direct 0.4 mg/dL (0.0-0.5); Bilirubin Total 0.5 mg/dL (0.0-1.0); Blood Urea Nitrogen 7 mg/dL (9-16); Calcium 8.3 mg/dL (8.4-10.2); Carbon Dioxide 23 mmol/L (22-29); Chloride 112 mmol/L (96-108); Estimated Glomerular Filt Rate > 60; Glucose Random 131 mg/dL (60-115); Magnesium 2.2 mg/dL (1.6-2.6); Phosphorus 2.5 mg/dL (2.7-4.5); Potassium 3.7 mmol/L (3.3-5.1); Sodium 144 mmol/L (135-145); Total Protein 5.2 g/dL (6.5-8.0)
[2021-01-22] MEDS: Doxycycline Hyclate 100 MG in 0.9 % Sodium Chloride 250 ML 166.67 MG IV (06:09)
[2021-01-22] MEDS: Albuterol/Iprat 2.5/0.5MG 3 ML AMPUL.NEB INHALE ×4 (07:48→19:47)
[2021-01-22] MEDS: Aspirin 81 MG TAB.CHEW PO (09:20)
[2021-01-22] MEDS: Potassium Phosphate 30 MMOL in 0.9 % Sodium Chloride 500 ML 85 MMOL IV (09:20)
[2021-01-22] MEDS: Chlorhexidine Gluc Oral Rinse 15 ML MOUTHWASH BUCCAL (09:20)
[2021-01-22] MEDS: Apixaban 5 MG TABLET PO ×2 (09:20→19:48)
--- NOTE | 2021-01-22 10:26 | MHC.CLN ---
F/U PT REMAINS INTUBATED AND SEDATED DISCUSSED AT ROUNDS AND POSSIBLE EXTUBATION TODAY PER MD PT CURRENTLY RECEIVING JEVITY 1.0 AT 20ML/HR WITH 120ML Q 6 HRS IF TF TO CONTINUE; RECOMMEND JEVITY 1.0 AT MAX GOAL RATE 55ML/HR WITH 300CC FREE WATER FLUSHES Q SHIFT TO PROVIDE 1399KCALS (1728KCALS WITH SEDATION; 25KCALS/KG), 58G PROTEIN (.8G/KG), 2002ML TOTAL WATER FROM FORMULA AND FLUSHES (29ML/KG) START FORMULA JEVITY 1.0 AT 20ML/HR AND INCREASE BY 10ML Q 4 HRS UNTIL GOAL RATE IS ACHIEVED MONITOR TOLERANCE, RESIDUALS AND LYTES FOLLOWING WITH TEAM
[2021-01-22] MEDS: Furosemide 20 MG/2 ML VIAL IVPUSH (10:28)
--- NOTE | 2021-01-22 11:06 | P.PNCC_ITS ---
Subjective Subjective Date of Service: 01/22/21 Interval History: 66-year-old gentleman with underlying history of a flat on Eliquis, polysubstance abuse, CAD status post CABG, admitted on 01/18/2021 after witnessed seizure episode likely resulting in aspiration and possible VFib arrest, now status post therapeutic hypothermia, also with finding of combined systolic heart failure with ejection fraction of 20-25% and grade 2 diastolic heart failure. No events overnight. Critical Care Time (minutes): 45 Physical Exam Vital Signs: Vital Signs: Last Vital Signs Temp 99 F 01/22/21 11:00 Pulse 76 01/22/21 11:00 Resp 26 H 01/22/21 11:00 BP 132/78 01/22/21 11:00 Pulse Ox 90 L 01/22/21 11:00 Body Mass Index 25.2 Const: General: no acute distress and other (Sedated on the vent, follows commands with sedation vacation) Eyes: Sclerae: sclerae normal EOM: EOMs intact bilaterally Neck: Neck: Yes no lymphadenopathy, Yes trachea midline and Yes supple Resp: Auscultation: crackles (Bibasilar) Cardio: Rate: regular rate Rhythm: regular rhythm Heart sounds: no gallops, no murmurs and no rubs GI: Palpation (GI): Soft to palpation and Other GI palpation findings present ( Nontender) Auscultation: normal bowel sounds Extrem: General: No clubbing, No cyanosis and Yes pedal edema (Trace bilateral) Objective Data Labs CBC & Chem 7: 01/22/21 04:58 01/22/21 04:58 Labs: Laboratory Results - last 24 hr 01/22/21 01/22/21 01/22/21 04:58 04:58 04:58 WBC 11.4 H RBC 3.35 L Hgb 10.9 L Hct 31.5 L MCV 94.0 MCH 32.5 MCHC 34.6 RDW 14.9 Plt Count 154 L MPV 9.4 Immature Gran % (Auto) 0.3 Neut % (Auto) 67.5 Lymph % (Auto) 16.8 L [place] % (Auto) 10.7 Eos % (Auto) 4.4 H Baso % (Auto) 0.3 Lymph # (Auto) 1.9 [place] # (Auto) 1.2 Eos # (Auto) 0.5 H Baso # (Auto) 0.0 Abs Immat Gran (auto) 0.03 Absolute Neuts (auto) 7.7 Absolute Nucleated RBC 0.000 Nucleated RBC % (auto) 0.0 PT 21.2 H INR 1.8 H APTT 37.5 VBG pH VBG pCO2 VBG pO2 VBG HCO3 VBG O2 Saturation VBG Base Excess Sodium 144 Potassium 3.7 Chloride 112 H Carbon Dioxide 23 Anion Gap 13 BUN 7 L Creatinine 0.91 Estim Creat Clear Calc 71.0 Estimated GFR > 60 Random Glucose 131 H Calcium 8.3 L Phosphorus 2.5 L Magnesium 2.2 Total Bilirubin 0.5 Direct Bilirubin 0.4 AST 23 D ALT 38 Alkaline Phosphatase 66 Total Protein 5.2 L Albumin 3.1 L 01/22/21 05:05 WBC RBC Hgb Hct MCV MCH MCHC RDW Plt Count MPV Immature Gran % (Auto) Neut % (Auto) Lymph % (Auto) [place] % (Auto) Eos % (Auto) Baso % (Auto) Lymph # (Auto) [place] # (Auto) Eos # (Auto) Baso # (Auto) Abs Immat Gran (auto) Absolute Neuts (auto) Absolute Nucleated RBC Nucleated RBC % (auto) PT INR APTT VBG pH 7.46 H VBG pCO2 34 VBG pO2 57 VBG HCO3 24 VBG O2 Saturation 84.0 VBG Base Excess 1.2 Sodium Potassium Chloride Carbon Dioxide Anion Gap BUN Creatinine Estim Creat Clear Calc Estimated GFR Random Glucose Calcium Phosphorus Magnesium Total Bilirubin Direct Bilirubin AST ALT Alkaline Phosphatase Total Protein Albumin Microbiology Microbiology Results: Microbiology 01/20/21 12:03 Sputum - Suctioned Gram Stain - Final 01/20/21 12:03 Sputum - Suctioned Sputum Culture - Final Staphylococcus aureus 01/20/21 12:16 Blood - Venous Blood Culture - Preliminary No growth after 24 hours. 01/20/21 12:15 Blood - Venous Blood Culture - Preliminary No growth after 24 hours. 01/20/21 12:03 Urine Catheterized - [place] Catheter Urine Culture - Final No growth. 01/18/21 17:25 Blood - Venous Blood Culture - Preliminary No growth after 48 hours. 01/18/21 17:25 Blood - Venous Blood Culture - Preliminary No growth after 48 hours. Quality Stroke Does the patient have a stroke diagnosis?: No VTE Prior VTE?: No VTE Risk Level:: Medical - moderate - high VTE Device Contraindication: N/A - Device Ordered VTE Drug Contraindication: N/A - Med Ordered Progress Note: A&P Assessment and plan (1) Aspiration pneumonitis: Status: Acute Assessment and Plan: Assessment: 66-year-old gentleman with underlying history of AFlutter, CAD, and polysubstance abuse admitted with seizures/syncopal event resulting in aspiration and likely VFib arrest Plan: Neuro: No acute issues. Follows commands with sedation vacation. Continues on Keppra for likely grand-mal seizure. Cardiac: VFib arrest versus wide complex AFlutter with poor perfusion. Status post hypothermia protocol. Also, acute systolic and diastolic congestive heart failure. Continue with gentle diuresis. Pulmonary: Acute hypoxic respiratory failure requiring ventilatory support. Likely with a component of aspiration pneumonitis. Continue to titrate off ventilatory support. Renal: No acute issues. Endo: No acute issues. GI: No acute issues. ID: MSSA in sputum, possible colonization. Will switch Zosyn to oxacillin Heme/Onc: No acute issues. Psych: No acute issues. Miscellaneous: No acute issues. Prophylaxis: Apixaban, ppi Diet: Tube feeds Critical care time spent: 45 minutes (2) COPD (chronic obstructive pulmonary disease): Status: Acute (3) 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: Status: Acute (4) Atrial flutter: Status: Acute (5) Cardiac arrest: Status: Acute (6) Acute respiratory failure with hypoxia: Status: Acute (7) Acute combined systolic and diastolic congestive heart failure: Status: Acute
[2021-01-22] MEDS: Nafcillin Sodium 2 GM in 0.9 % Sodium Chloride 100 ML IV ×3 (11:56→23:24)
[2021-01-22] MEDS: dexmedeTOMIDidine HCL/NS 400 MCG/100 ML INFUS..BTL 17.75 MCG IVCONT ×2 (11:57→19:45)
--- NOTE | 2021-01-22 13:48 | PC.NURSE ---
Addendum entered by Elizabeth Scanlon RN 01/22/21 19:26: Patient passed RN bedside swallow eval. MD notifed. IV Amiodarone converted to PO doses BID. Scheduled meds and IV ABTx as ordered. Restraints removed at 1800 and IV Precedex weaned down to 1.2mcg/kg/min. Patient's brother in to visit this evening and updated on plan. Original Note: Patient extubated today after weaning Propofol to 15mcg/kg/min and passing PSV trial x1hr and diuresing well after 20mg IVP Lasix. Precedex started and has been titrated up per orders for patient confusion and agitation. Maintaining SpO2 92% and better on 2Lnc. Tube feeds off since 1100 and OGT was removed with ETT upon extubation. IV KPhos infusing per orders since this AM. Scheduled meds and IV ABTxs as ordered. Family updated in person and via telephone.
--- NOTE | 2021-01-22 15:00 | MHC.CM.PN ---
Pt intubated in ICU with plans to extubate today. Pt with polysubstance use: s/p cardiac arrest. D/C plans will likely include STR - pt 's physical needs will need to be assessed. CM to follow
[2021-01-22] MEDS: dexmedeTOMIDidine HCL/NS 400 MCG/100 ML INFUS..BTL 24.85 MCG IVCONT (15:18)
--- NOTE | 2021-01-22 15:57 | MHC.CM.PN ---
Pt extubated today - lethargic and not able to participate in CM conversation: Pt will likely need STR placement: hx of polysubstance abuse/noncompliance: no HCP on file: CM to follow
[2021-01-22] MEDS: Atorvastatin Calcium 40 MG TABLET PO (19:48)
[2021-01-22] MEDS: Amiodarone HCL 200 MG TABLET PO (19:48)
[2021-01-23] VITALS (23 sets, daily range): BP systolic 113–190; BP diastolic 68–105; PULSE 68–158; RESP 18–28; TEMP 36.4–38; O2SAT 92–97; BMI 24.0
[2021-01-23] MEDS: dexmedeTOMIDidine HCL/NS 400 MCG/100 ML INFUS..BTL 8.88 MCG IVCONT (02:39)
[2021-01-23] MEDS: levETIRAcetam in NaCl (iso-os) 500 MG/100 ML PIGGYBACK 400 MG IV (04:56)
[2021-01-23] MEDS: Nafcillin Sodium 2 GM in 0.9 % Sodium Chloride 100 ML IV ×4 (04:59→23:52)
[2021-01-23 05:34] LABS: VBG HCO3 22 mmol/L (22-26); VBG pCO2 30 mmHg; VBG pH 7.46 (7.32-7.43); VBG pO2 55 mmHg
[2021-01-23 05:34] LABS: Basophils Percent Auto 0.3 % (0-2); Eosinophils Absolute Auto 0.2 X10*3/uL (0.0-0.4); Eosinophils Percent Auto 1.4 % (0-4); Hematocrit 33.6 % (42-52); Hemoglobin 11.4 g/dl (14.0-18.0); Imm Gran Abs Auto 0.05 X10*3/uL (0.00-0.03); Imm Gran Pct Auto 0.4 % (0.0-0.4); Lymphocytes Absolute Auto 1.8 X10*3/uL (1.2-4.9); Lymphocytes Percent Auto 15.1 % (20-40); MANUAL DIFF FLAG NO; Mean Corpuscular HGB Conc 33.9 g/dl (31.0-36.0); Mean Corpuscular Hemoglobin 31.8 pg (27.0-33.0); Mean Corpuscular Volume 93.6 fL (80-98); Mean Platelet Volume 8.9 fL (9.4-12.4); Monocytes Percent Auto 7.9 % (2-11); Neutrophils Absolute Auto 9.1 X10*3/uL (2.0-8.3); Neutrophils Percent Auto 74.9 % (45-73); Platelet Count 180 X10*3/uL (160-400); Red Blood Count 3.59 X10*6/uL (4.60-5.80); Red Cell Distribution Width 14.5 % (11.0-16.0); White Blood Count 12.2 X10*3/uL (4.8-10.8)
[2021-01-23 05:35] LABS: Venous Blood Gas Refer to POC result
[2021-01-23 05:56] LABS: Alanine Aminotransferase 38 U/L (0-40); Albumin Level 3.4 g/dL (3.5-5.0); Alkaline Phosphatase 69 U/L (39-117); Anion Gap 13 (12-20); Aspartate Amino Transferase 24 U/L (5-37); Blood Urea Nitrogen 11 mg/dL (9-16); Calcium 8.5 mg/dL (8.4-10.2); Carbon Dioxide 25 mmol/L (22-29); Chloride 112 mmol/L (96-108); Creatinine Clr Calc Pharmacy 75.2; Estimated Glomerular Filt Rate > 60; Glucose Random 104 mg/dL (60-115); Magnesium 2.2 mg/dL (1.6-2.6); Phosphorus 3.9 mg/dL (2.7-4.5); Potassium 3.9 mmol/L (3.3-5.1); Sodium 146 mmol/L (135-145)
[2021-01-23] MEDS: Albuterol/Iprat 2.5/0.5MG 3 ML AMPUL.NEB INHALE ×3 (08:03→20:02)
[2021-01-23] MEDS: Apixaban 5 MG TABLET PO ×2 (08:37→21:24)
[2021-01-23] MEDS: Aspirin 81 MG TAB.CHEW PO (08:37)
[2021-01-23] MEDS: Amiodarone HCL 200 MG TABLET PO ×2 (08:37→21:23)
--- NOTE | 2021-01-23 09:39 | PC.NURSE ---
De La Rosa removed at 0935, dtv [phone].
[2021-01-23] MEDS: Potassium Chloride Packet 20 MEQ PACKET 60 MEQ PO (10:05)
[2021-01-23] MEDS: Nicotine 21 MG PATCH.TD24 TRANSDERMA (10:58)
--- NOTE | 2021-01-23 13:05 | PM.CCPN ---
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 Extubated uneventfully on 01/22/2021. Passed swallow evaluation. No events overnight. This a.m. with several loose bowel movements, C diff sent. Critical Care Time (minutes): 0 Physical Exam Vital Signs: Vital Signs: Last Vital Signs Temp 99.1 F 01/23/21 12:00 Pulse 86 01/23/21 13:00 Resp 25 H 01/23/21 13:00 BP 165/89 H 01/23/21 13:00 Pulse Ox 96 01/23/21 13:00 Body Mass Index 24.0 Const: General: no acute distress, alert and awake Eyes: Sclerae: sclerae normal EOM: EOMs intact bilaterally Neck: Neck: Yes no lymphadenopathy, Yes trachea midline and Yes supple Resp: Effort & Inspection: normal respiratory effort and no respiratory distress Auscultation: clear to auscultation bilaterally Cardio: Rate: regular rate Rhythm: regular rhythm Heart sounds: no gallops, no murmurs and no rubs GI: Palpation (GI): Soft to palpation and Other GI palpation findings present ( Nontender) Auscultation: normal bowel sounds Extrem: General: No clubbing, No cyanosis and Yes pedal edema (Trace bilateral) Objective Data Labs CBC & Chem 7: 01/23/21 05:20 01/23/21 05:20 Labs: Laboratory Results - last 24 hr 01/23/21 01/23/21 01/23/21 05:20 05:20 05:29 WBC 12.2 H RBC 3.59 L Hgb 11.4 L Hct 33.6 L MCV 93.6 MCH 31.8 MCHC 33.9 RDW 14.5 Plt Count 180 MPV 8.9 L Immature Gran % (Auto) 0.4 Neut % (Auto) 74.9 H Lymph % (Auto) 15.1 L [place] % (Auto) 7.9 Eos % (Auto) 1.4 Baso % (Auto) 0.3 Lymph # (Auto) 1.8 [place] # (Auto) 1.0 Eos # (Auto) 0.2 Baso # (Auto) 0.0 Abs Immat Gran (auto) 0.05 H Absolute Neuts (auto) 9.1 H Absolute Nucleated RBC 0.000 Nucleated RBC % (auto) 0.0 VBG pH 7.46 H VBG pCO2 30 VBG pO2 55 VBG HCO3 22 VBG O2 Saturation 81.0 VBG Base Excess -1.0 Sodium 146 H Potassium 3.9 Chloride 112 H Carbon Dioxide 25 Anion Gap 13 BUN 11 D Creatinine 0.86 Estim Creat Clear Calc 75.2 Estimated GFR > 60 Random Glucose 104 Calcium 8.5 Phosphorus 3.9 Magnesium 2.2 Total Bilirubin 1.0 AST 24 ALT 38 Alkaline Phosphatase 69 Total Protein 6.0 L Albumin 3.4 L Microbiology Microbiology Results: Microbiology 01/20/21 12:15 Blood - Venous Blood Culture - Preliminary No growth after 48 hours. 01/20/21 12:16 Blood - Venous Blood Culture - Preliminary No growth after 48 hours. 01/20/21 12:03 Sputum - Suctioned Gram Stain - Final 01/20/21 12:03 Sputum - Suctioned Sputum Culture - Final Staphylococcus aureus 01/20/21 12:03 Urine Catheterized - [place] Catheter Urine Culture - Final No growth. 01/18/21 17:25 Blood - Venous Blood Culture - Preliminary No growth after 48 hours. 01/18/21 17:25 Blood - Venous Blood Culture - Preliminary No growth after 48 hours. Quality Stroke Does the patient have a stroke diagnosis?: No VTE Prior VTE?: No VTE Risk Level:: Medical - moderate - high VTE Device Contraindication: N/A - Device Ordered VTE Drug Contraindication: N/A - Med Ordered Progress Note: A&P Assessment and plan (1) Acute combined systolic and diastolic congestive heart failure: Status: Acute Assessment and Plan: Assessment: 66-year-old gentleman with underlying history of AFlutter, CAD, and polysubstance abuse admitted with seizures/syncopal event resulting in aspiration and likely VFib arrest Plan: Neuro: Possible underlying seizure disorder, continue on Keppra. Cardiac: VFib arrest versus wide complex AFlutter with poor perfusion. Status post hypothermia protocol. Also, acute systolic and diastolic congestive heart failure. Improved with gentle diuresis. Cardiology consultation requested. Pulmonary: Acute hypoxic respiratory failure requiring ventilatory support. Likely with a component of aspiration pneumonitis. Continue to titrate off ventilatory support. Renal: No acute issues. Endo: No acute issues. GI: Several episodes of diarrhea this a.m., CAD for sent. ID: MSSA in sputum, possible colonization, continues on nafcillin, consider discontinuation and 24 hours if remains afebrile. Heme/Onc: No acute issues. Psych: No acute issues. Miscellaneous: No acute issues. Prophylaxis: Apixaban Diet: Regular (2) Acute respiratory failure with hypoxia: Status: Acute (3) CHF exacerbation: Status: Acute (4) COPD (chronic obstructive pulmonary disease): Status: Acute (5) Cardiac arrest: Status: Acute (6) Atrial flutter: Status: Acute (7) Seizure disorder: Status: Acute
--- NOTE | 2021-01-23 13:07 | P.CONCA_ITS ---
History of Present Illness History of Present Illness Date of Service: 01/23/21 Chief complaint: WITNESSED CARDIAC ARREST Narrative: 66-year-old gentleman with background history of heroin and cocaine abuse. He was diagnosed with mild cardiomyopathy recently. He now presented with cardiac arrest this setting of cocaine use. He was resuscitated and underwent hypothermia protocol. He has recovered from this at this stage. She is denying any chest discomfort shortness of breath. An echocardiogram was performed by Dr. Potter which showed she had in his ejection fraction. He is currently hypertensive poor denying any symptoms. [facility] Past Medical History Medical History CAD (coronary artery disease) CHF (congestive heart failure) Cocaine abuse with intoxication COPD (chronic obstructive pulmonary disease) Drug abuse 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 Heroin use Hyperlipemia Paroxysmal atrial fibrillation PVD (peripheral vascular disease) Toxic encephalopathy Family History Family history: reviewed and not pertinent Surgical History Surgical History S/P CABG x 2 Social History Social History Household Members: Unknown / Unable to assess Housing: Unknown / Unable to assess Unable to assess alcohol history related to: Unable to respond Alcohol intake: never Patient Tobacco Use Status: Current everyday Tobacco user Tobacco use type: Cigarette Cigarettes Per Day: 5 e-Cigarette/Vaping Use: Never Used Use of substances other than those prescribed or required for medical reasons: Yes Substance Use Type: Crack/Cocaine, Opiates, Painkillers and Prescription Drugs Last Used Substance Other:: tested positive for benzos, opiates, fentanyl. sherita alcocer report says cocaine Currently Displaying Signs/Symptoms of Drug Intoxication Withdrawal: No Advance Directives: Yes Advance Directives Information Provided: No Advance Directives on File: Yes Advance Directives Date on File: 01/12/21 Do you have thoughts of harming others: None Do you have a plan to hurt others: No Plan Recently lost weight without trying: Unsure Nutrition Risks: On aspiration precautions service: No Current occupational status: retired Meds Allergies Allergy/AdvReac Type Severity Reaction Status Date / Time No Known Allergies Allergy Unverified 01/12/21 01:03 Active Medications: Current Medications Generic Name Dose Route Start Last Admin Trade Name Freq PRN Reason Stop Dose Admin Albuterol/Ipratropium 3 ml 01/19/21 08:00 01/23/21 11:52 Albuterol/Iprat 2.5/0.5mg 3 Ml Ampul.Neb INHALE Not Given RQ4H WHILE AWAKE [facility] Amiodarone HCl 200 mg 01/22/21 21:00 01/23/21 08:37 Amiodarone Hcl 200 Mg Tablet PO 200 mg BID CARLIE Administration Apixaban 5 mg 01/18/21 21:00 01/23/21 08:37 Apixaban 5 Mg Tablet PO 5 mg BID [facility] Administration Aspirin 81 mg 01/19/21 09:00 01/23/21 08:37 Aspirin 81 Mg Tab.Chew PO 81 mg DAILY [facility] Administration Atorvastatin Calcium 40 mg 01/18/21 21:00 01/22/21 19:48 Atorvastatin Calcium 40 Mg Tablet PO 40 mg BEDTIME CARLIE Administration Nafcillin Sodium 2 gm/ Sodium 100 mls @ 200 mls/hr 01/22/21 11:30 01/23/21 11:58 Chloride IV Infused Q6H [facility] Infusion Levetiracetam 500 mg 01/23/21 21:00 Levetiracetam 500 Mg Tablet PO BID [facility] Nicotine 21 mg 01/23/21 10:45 01/23/21 10:58 Nicotine 21 Mg Patch.Td24 TRANSDERMA 21 mg DAILY [facility] Administration Omeprazole 20 mg 01/19/21 06:45 01/23/21 05:40 Omeprazole 20 Mg/10 Ml Susp.Recon PO 20 mg DAILY@0630 [facility] Administration Pharmacy Consult 1 each 01/18/21 15:36 Consult Rx Perform Med Rec MISCELLANE ONCE PRN Consult order Home Medications Medication Instructions Recorded Confirmed Last Taken Type apixaban 5 mg tablet (Eliquis) 5 mg PO BID 01/12/21 01/18/21 01/11/21 19:00 History aspirin 81 mg tablet 81 mg PO DAILY 01/12/21 01/18/21 01/11/21 08:00 History atorvastatin 40 mg tablet 40 mg PO BEDTIME 01/12/21 01/18/21 01/11/21 19:00 History clonidine HCl 0.1 mg tablet 0.1 mg PO BID 01/12/21 01/18/21 Unknown History metoprolol tartrate 25 mg tablet 25 mg PO BID 01/12/21 01/18/21 01/11/21 19:00 History nitroglycerin 0.4 mg sublingual 0.4 mg SUBLINGUAL NEEDED 01/12/21 01/18/21 01/08/21 History tablet omeprazole 20 mg capsule,delayed 20 mg PO DAILY 01/12/21 01/18/21 01/11/21 08:00 History release pentoxifylline 400 mg 1 tab PO BID 01/18/21 01/18/21 Unknown History tablet,extended release Physical Exam Vital Signs: Vital Signs: Last Vital Signs Temp 99.1 F 01/23/21 12:00 Pulse 86 01/23/21 13:00 Resp 25 H 01/23/21 13:00 BP 165/89 H 01/23/21 13:00 Pulse Ox 96 01/23/21 13:00 Body Mass Index 24.0 GENERAL APPEARANCE: in no acute distress, pleasant. NECK: no carotid bruit, no jugular venous distention. SKIN: no suspicious lesions, warm and dry. HEART: no murmurs, regular rate and rhythm. LUNGS: clear to auscultation bilaterally. ABDOMEN: soft, nontender. EXTREMITIES: no edema. PERIPHERAL PULSES: equal. NEUROLOGIC: No gross deficits, AAO X 3 Results Labs and Meds Result diagrams: 01/23/21 05:20 01/23/21 05:20 Lab results: Laboratory Results - last 24 hr 01/23/21 01/23/21 01/23/21 05:20 05:20 05:29 WBC 12.2 H RBC 3.59 L Hgb 11.4 L Hct 33.6 L MCV 93.6 MCH 31.8 MCHC 33.9 RDW 14.5 Plt Count 180 MPV 8.9 L Immature Gran % (Auto) 0.4 Neut % (Auto) 74.9 H Lymph % (Auto) 15.1 L [place] % (Auto) 7.9 Eos % (Auto) 1.4 Baso % (Auto) 0.3 Lymph # (Auto) 1.8 [place] # (Auto) 1.0 Eos # (Auto) 0.2 Baso # (Auto) 0.0 Abs Immat Gran (auto) 0.05 H Absolute Neuts (auto) 9.1 H Absolute Nucleated RBC 0.000 Nucleated RBC % (auto) 0.0 VBG pH 7.46 H VBG pCO2 30 VBG pO2 55 VBG HCO3 22 VBG O2 Saturation 81.0 VBG Base Excess -1.0 Sodium 146 H Potassium 3.9 Chloride 112 H Carbon Dioxide 25 Anion Gap 13 BUN 11 D Creatinine 0.86 Estim Creat Clear Calc 75.2 Estimated GFR > 60 Random Glucose 104 Calcium 8.5 Phosphorus 3.9 Magnesium 2.2 Total Bilirubin 1.0 AST 24 ALT 38 Alkaline Phosphatase 69 Total Protein 6.0 L Albumin 3.4 L Assessment and Plan (1) Acute combined systolic and diastolic congestive heart failure: Status: Acute (2) Cardiac arrest: Status: Acute 66-year-old gentleman with background history of heroin and cocaine abuse who presented with cardiac arrest. This was in the setting of cocaine use. Echocardiogram performed in the ICU is showing severely reduced ejection fraction. Will repeat echo to reassess LVEF. It is not uncommon that LVEF is severely reduced post resuscitation. In the meantime will start controlling blood pressure and add valsartan if he can tolerate it. We will follow along with you. Thank you for allowing me to participate in the care of your patient. Please feel free to contact me if you have any questions. Procedures Date of Service Date of Service: 01/23/21
[2021-01-23 14:12] LABS: CDiff Gene PCR NEGATIVE (Negative)
--- NOTE | 2021-01-23 17:25 | ECG_ITS ---
Test Reason : confirming rhythm change Blood Pressure : / mmHG Vent. Rate : 158 BPM Atrial Rate : 357 BPM P-R Int : 000 ms QRS Dur : 086 ms QT Int : 282 ms P-R-T Axes : 000 093 075 degrees QTc Int : 457 ms Atrial flutter with variable A-V block with premature ventricular or aberrantly conducted complexes Rightward axis Anteroseptal infarct , age undetermined Inferior injury pattern ACUTE TX / STEMI Consider right ventricular involvement in acute inferior infarct Abnormal ECG When compared with ECG of 18-JAN-2021 23:48, Vent. rate has increased T wave inversion no longer evident in Lateral leads Referred By: Nini Villegas Electronically Signed By:ANIRUDH YI
[2021-01-23] MEDS: dilTIAZem HCL 125 MG in 0.9 % Sodium Chloride 100 ML 10 MG IVCONT (18:08)
--- NOTE | 2021-01-23 18:22 | PM.EVENT ---
Event Note Date of Service: 01/23/21 Event Note: Patient broke into atrial flutter with RVR around 17:30. I went to see the patient was laying comfortable in his bed with no reported chest pain, palpitation or shortness of breath Heart rate noted to be to wean 130-150 on the monitor, EKG showed atrial flutter with RVR Started on Cardizem drip continue to monitor
[2021-01-23 20:05] LABS: B Type Natriuretic Peptide 1109 pg/mL (<100)
[2021-01-23 20:09] LABS: Anion Gap 18 (12-20); Blood Urea Nitrogen 11 mg/dL (9-16); Carbon Dioxide 17 mmol/L (22-29); Chloride 115 mmol/L (96-108); Creatinine Clr Calc Pharmacy 77.9; Estimated Glomerular Filt Rate > 60; Glucose Random 111 mg/dL (60-115); Potassium 3.6 mmol/L (3.3-5.1); Sodium 146 mmol/L (135-145)
[2021-01-23 20:23] LABS: Thyroid Stimulating Hormone 0.45 uIU/mL (0.32-4.0)
[2021-01-23] MEDS: Magnesium Sulfate/H2O 2 GM/50 ML PIGGYBACK IV (21:15)
[2021-01-23] MEDS: levETIRAcetam 500 MG TABLET PO (21:23)
[2021-01-23] MEDS: Atorvastatin Calcium 40 MG TABLET PO (21:24)
[2021-01-23] MEDS: diphenhydrAMINE HCL 25 MG TABLET PO (21:44)
[2021-01-24] VITALS (20 sets, daily range): BP systolic 108–164; BP diastolic 64–96; PULSE 55–170; RESP 16–20; TEMP 36.3–37.2; O2SAT 92–99; BMI 23.8
--- NOTE | 2021-01-24 00:07 | PC.NURSE ---
Pt noted to have converted to normal sinus with frequent PACs, and bursts of 3-5 beats of vtach occasionally. HR has decreased to 90s-low 100s, still on cardizem gtt which has been tirtrated down to 10mg/hr. Pt assessed, resting quietly in bed.
[2021-01-24] MEDS: Melatonin 3 MG TABLET 6 MG PO (00:30)
[2021-01-24] MEDS: dilTIAZem HCL 125 MG in 0.9 % Sodium Chloride 100 ML 10 MG IVCONT (01:40)
[2021-01-24] MEDS: Nafcillin Sodium 2 GM in 0.9 % Sodium Chloride 100 ML IV ×4 (05:27→21:19)
[2021-01-24 06:13] LABS: MANUAL DIFF FLAG NO
[2021-01-24 06:17] LABS: Basophils Absolute Auto 0.1 X10*3/uL (0.0-0.2); Basophils Percent Auto 0.4 % (0-2); Eosinophils Absolute Auto 0.2 X10*3/uL (0.0-0.4); Hematocrit 40.2 % (42-52); Hemoglobin 13.6 g/dl (14.0-18.0); Imm Gran Abs Auto 0.09 X10*3/uL (0.00-0.03); Imm Gran Pct Auto 0.6 % (0.0-0.4); Lymphocytes Absolute Auto 2.5 X10*3/uL (1.2-4.9); Lymphocytes Percent Auto 17.3 % (20-40); Mean Corpuscular HGB Conc 33.8 g/dl (31.0-36.0); Mean Corpuscular Hemoglobin 31.8 pg (27.0-33.0); Mean Corpuscular Volume 93.9 fL (80-98); Mean Platelet Volume 9.1 fL (9.4-12.4); Monocytes Absolute Auto 1.4 X10*3/uL (0.1-1.2); Monocytes Percent Auto 9.6 % (2-11); Neutrophils Absolute Auto 10.3 X10*3/uL (2.0-8.3); Neutrophils Percent Auto 71.1 % (45-73); Platelet Count 235 X10*3/uL (160-400); Red Blood Count 4.28 X10*6/uL (4.60-5.80); Red Cell Distribution Width 14.7 % (11.0-16.0); White Blood Count 14.5 X10*3/uL (4.8-10.8)
[2021-01-24 06:46] LABS: Albumin Level 3.9 g/dL (3.5-5.0); Anion Gap 19 (12-20); Blood Urea Nitrogen 15 mg/dL (9-16); Calcium 8.8 mg/dL (8.4-10.2); Carbon Dioxide 19 mmol/L (22-29); Chloride 112 mmol/L (96-108); Estimated Glomerular Filt Rate > 60; Glucose Random 97 mg/dL (60-115); Magnesium 2.7 mg/dL (1.6-2.6); Phosphorus 3.5 mg/dL (2.7-4.5); Potassium 3.7 mmol/L (3.3-5.1); Sodium 146 mmol/L (135-145)
[2021-01-24] MEDS: Aspirin 81 MG TAB.CHEW PO (08:33)
[2021-01-24] MEDS: Amiodarone HCL 200 MG TABLET PO ×3 (08:33→21:19)
[2021-01-24] MEDS: levETIRAcetam 500 MG TABLET PO ×2 (08:33→20:48)
[2021-01-24] MEDS: Nicotine 21 MG PATCH.TD24 TRANSDERMA (08:33)
[2021-01-24] MEDS: Apixaban 5 MG TABLET PO ×2 (08:33→20:49)
[2021-01-24] MEDS: Metoprolol Tartrate 5 MG/5 ML VIAL IVPUSH (09:10)
--- NOTE | 2021-01-24 10:06 | MHC.CM.PN ---
Patient has not yet been medically cleared for dc (IV Diltiazem Drip, IV Nafcillin). DC plan is TBD pending medical clearance and PT eval; CM will continue to follow for dc planning.
[2021-01-24] MEDS: Albuterol/Iprat 2.5/0.5MG 3 ML AMPUL.NEB INHALE ×2 (11:32→19:38)
--- NOTE | 2021-01-24 12:09 | P.PNCA_ITS ---
Subjective Subjective Date of Service: 01/24/21 Interval history: developed atrial flutter with rapid ventricle response overnight but reverted back to sinus rhythm. Again went back into atrial flutter this morning. He has been on Cardizem with good rate control. He is saying he has diarrhea and is Likely withdrawing from heroin Physical Exam Vital Signs: Last Vital Signs Temp 98.4 F 01/24/21 11:51 Pulse 71 01/24/21 11:51 Resp 20 01/24/21 11:51 BP 145/80 H 01/24/21 11:51 Pulse Ox 99 01/24/21 11:51 Body Mass Index 23.8 GENERAL APPEARANCE: in no acute distress, pleasant. NECK: no carotid bruit, no jugular venous distention. SKIN: no suspicious lesions, warm and dry. HEART: no murmurs, regular rate and rhythm. LUNGS: clear to auscultation bilaterally. ABDOMEN: soft, nontender. EXTREMITIES: no edema. PERIPHERAL PULSES: equal. Results Labs and Meds Result diagrams: 01/24/21 05:48 01/24/21 05:48 Lab results: Laboratory Results - last 24 hr 01/23/21 01/23/21 01/23/21 12:27 18:55 18:55 WBC RBC Hgb Hct MCV MCH MCHC RDW Plt Count MPV Immature Gran % (Auto) Neut % (Auto) Lymph % (Auto) [place] % (Auto) Eos % (Auto) Baso % (Auto) Lymph # (Auto) [place] # (Auto) Eos # (Auto) Baso # (Auto) Abs Immat Gran (auto) Absolute Neuts (auto) Absolute Nucleated RBC Nucleated RBC % (auto) Sodium 146 H Potassium 3.6 Chloride 115 H Carbon Dioxide 17 L Anion Gap 18 BUN 11 Creatinine 0.83 Estim Creat Clear Calc 77.9 Estimated GFR > 60 Random Glucose 111 Calcium 9.0 Phosphorus Magnesium B-Natriuretic Peptide 1109 H Albumin TSH 0.45 C. difficile Tox B Gene NEGATIVE 01/24/21 01/24/21 05:48 05:48 WBC 14.5 H RBC 4.28 L Hgb 13.6 L Hct 40.2 L MCV 93.9 MCH 31.8 MCHC 33.8 RDW 14.7 Plt Count 235 D MPV 9.1 L Immature Gran % (Auto) 0.6 H Neut % (Auto) 71.1 Lymph % (Auto) 17.3 L [place] % (Auto) 9.6 Eos % (Auto) 1.0 Baso % (Auto) 0.4 Lymph # (Auto) 2.5 [place] # (Auto) 1.4 H Eos # (Auto) 0.2 Baso # (Auto) 0.1 Abs Immat Gran (auto) 0.09 H Absolute Neuts (auto) 10.3 H Absolute Nucleated RBC 0.000 Nucleated RBC % (auto) 0.0 Sodium 146 H Potassium 3.7 Chloride 112 H Carbon Dioxide 19 L Anion Gap 19 BUN 15 Creatinine 0.98 Estim Creat Clear Calc 66.0 Estimated GFR > 60 Random Glucose 97 Calcium 8.8 Phosphorus 3.5 Magnesium 2.7 H B-Natriuretic Peptide Albumin 3.9 TSH C. difficile Tox B Gene Progress Note: A&P Assessment and plan (1) Cardiac arrest: Status: Acute (2) Cardiomyopathy: Status: Acute (3) Atrial flutter: Status: Acute Assessment and Plan: [age] year gentleman with background of cocaine and heroin abuse who presented with cardiac arrest. He was on hypothermia protocol. he developed atrial flutter overnight. He broke out of it in the went back into atrial flutter again. I am increasing his amiodarone to 400 mg twice a day. Continue the Cardizem drip as before. My hope is that with amiodarone he will reverted back to sinus rhythm. Continue anticoagulation as before. Post arrest his echocardiogram done in the ICU by the medical assistant internal medicine showed severely reduced ejection fraction. this is not uncommon. I think we should repeat ec hocardiogram to see if this and recovery his ejection fraction. Thank you for allowing me to participate in the care of your patient. Please feel free to contact me if you have any questions. Fall Risk Details Current Medications: Current Medications Generic Name Dose Route Start Last Admin Trade Name Freq PRN Reason Stop Dose Admin Albuterol/Ipratropium 3 ml 01/19/21 08:00 01/24/21 11:32 Albuterol/Iprat 2.5/0.5mg 3 Ml Ampul.Neb INHALE 3 ml RQ4H WHILE AWAKE CARLIE Administration Amiodarone HCl 200 mg 01/22/21 21:00 01/24/21 08:33 Amiodarone Hcl 200 Mg Tablet PO 200 mg BID CARLIE Administration Apixaban 5 mg 01/18/21 21:00 01/24/21 08:33 Apixaban 5 Mg Tablet PO 5 mg BID CARLIE Administration Aspirin 81 mg 01/19/21 09:00 01/24/21 08:33 Aspirin 81 Mg Tab.Chew PO 81 mg DAILY CARLIE Administration Atorvastatin Calcium 40 mg 01/18/21 21:00 01/23/21 21:24 Atorvastatin Calcium 40 Mg Tablet PO 40 mg BEDTIME CARLIE Administration Nafcillin Sodium 2 gm/ Sodium 100 mls @ 200 mls/hr 01/22/21 11:30 01/24/21 05:59 Chloride IV Infused Q6H CARLIE Infusion Diltiazem HCl 125 mg/ Sodium 125 mls @ 0 mls/hr 01/23/21 18:00 01/24/21 11:12 Chloride IVCONT 5 mg/hr .Q0M CARLIE 5 mls/hr Titration Protocol Per Protocol Levetiracetam 500 mg 01/23/21 21:00 01/24/21 08:33 Levetiracetam 500 Mg Tablet PO 500 mg BID CARLIE Administration Melatonin 6 mg 01/24/21 00:20 01/24/21 00:30 Melatonin 3 Mg Tablet PO 6 mg BEDTIME PRN Administration Insomnia Nicotine 21 mg 01/23/21 10:45 01/24/21 08:33 Nicotine 21 Mg Patch.Td24 TRANSDERMA 21 mg DAILY CARLIE Administration Omeprazole 20 mg 01/19/21 06:45 01/24/21 05:27 Omeprazole 20 Mg/10 Ml Susp.Recon PO 20 mg DAILY@0630 CARLIE Administration Pharmacy Consult 1 each 01/18/21 15:36 Consult Rx Perform Med Rec MISCELLANE ONCE PRN Consult order Time Spent With Patient Time: Total time spent is greater than 50% in coordination of care (as documented) at patient's floor/unit and/or counseling patient: Time with patient: 25 - 35 minutes Progress Note: Quality Stroke Does the patient have a stroke diagnosis?: No Procedures Date of Service Date of Service: 01/24/21
[2021-01-24 12:17] LABS: Legionella Ag Urine Not Detected (Not Detected)
--- NOTE | 2021-01-24 12:38 | P.PNIM_ITS ---
Subjective Subjective Date of Service: 01/24/21 Interval History: Seen and examined this morning Downgraded from the ICU yesterday Heart rate uncontrolled this morning, a flutter Patient denies any chest pain, palpitations No specific complaints at this time Review of Systems Review of Systems: Yes all other systems are reviewed and are negative Constitutional Constitutional: Denies chills and Denies fever(s) Cardiovascular Cardiovascular: Denies chest pain Respiratory Respiratory: Denies cough Gastrointestinal Gastrointestinal: Denies abdominal pain Physical Exam Vital Signs: Vital Signs: Last Vital Signs Temp 98.4 F 01/24/21 11:51 Pulse 71 01/24/21 11:51 Resp 20 01/24/21 11:51 BP 145/80 H 01/24/21 11:51 Pulse Ox 99 01/24/21 11:51 Body Mass Index 23.8 Const: General: no acute distress, alert and awake Nutritional Appearance: well nourished HENMT: Head: Yes normocephalic and Yes atraumatic Eyes: Sclerae: sclerae normal Chest: Chest palpation & inspection: normal inspection of the chest Resp: Effort & Inspection: normal respiratory effort and no respiratory distress Cardio: Rate: tachycardic Rhythm: abnormal rhythm GI: Palpation (GI): Soft to palpation and nontender Neuro: Cranial nerves: Yes CN's II-XII intact bilaterally and Yes Bilaterally intact EOM present Extrem: Other: no edema Objective Data Active Medications Albuterol/Ipratropium (Albuterol/Iprat 2.5/0.5mg 3 Ml Ampul.Neb) 3 ml INHALE RQ4H WHILE AWAKE [facility] Last Admin: 01/24/21 11:32 Dose: 3 ml Documented by: AVE Amiodarone HCl (Amiodarone Hcl 200 Mg Tablet) 200 mg PO BID [facility] Last Admin: 01/24/21 08:33 Dose: 200 mg Documented by: WILMAR Apixaban (Apixaban 5 Mg Tablet) 5 mg PO BID [facility] Last Admin: 01/24/21 08:33 Dose: 5 mg Documented by: WILMAR Aspirin (Aspirin 81 Mg Tab.Chew) 81 mg PO DAILY [facility] Last Admin: 01/24/21 08:33 Dose: 81 mg Documented by: WILMAR Atorvastatin Calcium (Atorvastatin Calcium 40 Mg Tablet) 40 mg PO BEDTIME [facility] Last Admin: 01/23/21 21:24 Dose: 40 mg Documented by: YOLY Nafcillin Sodium 2 gm/ Sodium (Chloride) 100 mls @ 200 mls/hr IV Q6H [facility] Last Admin: 01/24/21 12:19 Dose: 200 mls/hr Documented by: WILMAR Diltiazem HCl 125 mg/ Sodium (Chloride) 125 mls @ 0 mls/hr IVCONT .Q0M [facility]; Protocol Last Titration: 01/24/21 11:12 Dose: 5 mg/hr, 5 mls/hr Documented by: WILMAR Levetiracetam (Levetiracetam 500 Mg Tablet) 500 mg PO BID [facility] Last Admin: 01/24/21 08:33 Dose: 500 mg Documented by: WILMAR Melatonin (Melatonin 3 Mg Tablet) 6 mg PO BEDTIME PRN PRN Reason: Insomnia Last Admin: 01/24/21 00:30 Dose: 6 mg Documented by: YOLY Nicotine (Nicotine 21 Mg Patch.Td24) 21 mg TRANSDERMA DAILY [facility] Last Admin: 01/24/21 08:33 Dose: 21 mg Documented by: WILMAR Omeprazole (Omeprazole 20 Mg/10 Ml Susp.Recon) 20 mg PO DAILY@0630 [facility] Last Admin: 01/24/21 05:27 Dose: 20 mg Documented by: YOLY Pharmacy Consult (Consult Rx Perform Med Rec) 1 each MISCELLANE ONCE PRN PRN Reason: Consult order Labs CBC & Chem 7: 01/24/21 05:48 01/24/21 05:48 Labs: Laboratory Results - last 24 hr 01/20/21 01/23/21 01/23/21 17:22 12:27 18:55 MCV MCH MCHC RDW Plt Count MPV Immature Gran % (Auto) Neut % (Auto) Lymph % (Auto) [place] % (Auto) Eos % (Auto) Baso % (Auto) Lymph # (Auto) [place] # (Auto) Eos # (Auto) Baso # (Auto) Abs Immat Gran (auto) Absolute Neuts (auto) Absolute Nucleated RBC Nucleated RBC % (auto) Anion Gap 18 Estim Creat Clear Calc 77.9 Estimated GFR > 60 Random Glucose 111 Calcium 9.0 Phosphorus Magnesium B-Natriuretic Peptide Albumin TSH 0.45 C. difficile Tox B Gene NEGATIVE Ur L.pneumophila Ag Not Detected 01/23/21 01/24/21 01/24/21 18:55 05:48 05:48 MCV 93.9 MCH 31.8 MCHC 33.8 RDW 14.7 Plt Count 235 D MPV 9.1 L Immature Gran % (Auto) 0.6 H Neut % (Auto) 71.1 Lymph % (Auto) 17.3 L [place] % (Auto) 9.6 Eos % (Auto) 1.0 Baso % (Auto) 0.4 Lymph # (Auto) 2.5 [place] # (Auto) 1.4 H Eos # (Auto) 0.2 Baso # (Auto) 0.1 Abs Immat Gran (auto) 0.09 H Absolute Neuts (auto) 10.3 H Absolute Nucleated RBC 0.000 Nucleated RBC % (auto) 0.0 Anion Gap 19 Estim Creat Clear Calc 66.0 Estimated GFR > 60 Random Glucose 97 Calcium 8.8 Phosphorus 3.5 Magnesium 2.7 H B-Natriuretic Peptide 1109 H Albumin 3.9 TSH C. difficile Tox B Gene Ur L.pneumophila Ag Microbiology Microbiology Results: Microbiology 01/18/21 17:25 Blood Culture - Final Blood - Venous No growth after 5 days. 01/18/21 17:25 Blood Culture - Final Blood - Venous No growth after 5 days. Assessment and Plan (1) Seizure disorder: Status: Acute (2) Acute combined systolic and diastolic congestive heart failure: Status: Acute (3) Acute respiratory failure with hypoxia: Status: Acute (4) Aspiration pneumonitis: Status: Acute Assessment and Plan: This is a 66-year-old male with a history of atrial fibrillation on Eliquis, CAD status post CABG polysubstance abuseadmitted on 01/18/2021 after witnessed seizure episode likely resulting in aspiration and possible VFib arrest, now status post therapeutic hypothermia, also with finding of 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 Extubated uneventfully on 01/22/2021 and downgraded to the medical floor 01/23/2021 course further complicated by atrial flutter/AFib with RVR Atrial flutter/AFib RVR HR uncontrolled Continue Cardizem drip Continue amiodorone Continue Eliquis Cardiology consult Acute respiratory failure with hypoxia requiring ventilatory support Likely component of aspiration extubated 01/22 Sputum cx growing MSSA - on nafcillin Blood cultures negative Combined systolic/diastolic CHF Cardiology evaluation pending Seizure Brain CT negative occurred in setting of drug use/cardiac arrest EEG done 01/19 limited but not showing any seizure activity Continue Keppra seizure precautions h/o CAD Continue aspirin, statin Polysubstance abuse Addiction medicine consult DVT prophylaxis-Cher Attending physician-Dr. Black Quality Stroke Does the patient have a stroke diagnosis?: No VTE Prior VTE?: No VTE Risk Level:: Medical - moderate - high VTE Device Contraindication: N/A - Device Ordered VTE Drug Contraindication: N/A - Med Ordered
--- NOTE | 2021-01-24 15:43 | HO.ADDICTCON ---
History of Present Illness Date of Service: 01/24/2021 Chief Complaint: WITNESSED CARDIAC ARREST Reason for Consult: opioid OD Requesting physician: Rowan De La Torre Discussed with referring provider: No Sources of Information: patient interviewed and chart reviewed HPI Narrative: Patient is a 66 year old male currently medically admitted following suspected opioid OD, witnessed seizure and possible VFIB cardiac arrest. Up until yesterday patient intubated in ICU. Chart reviewed and it was noted that patient had been medically admitted on 01/12/2021 for seizure at home and NSTEMI--he left AMA on 01/14 and presented again on 01/18 for this admission. July of 2020 he presented to ED for opioid overdose, but left ED AMA. Patient seen in room 482. Awake, alert, pleasant. Unknown what patients baseline is, but patient very slow to answer questions, concrete. Does report using cocaine since about age 24 and reports a history of heavy drinking, which he states he no longer does. Denies any opioid use, despite ED visits and UDS results. He reports history of attending AA, but denied any other treatment hx. Personal & Social History: lives with his he is retired Review of Systems Gastrointestinal: Denies abdominal pain, Reports loose stools, Denies nausea and Denies vomiting Musculoskeletal: Denies myalgias and Denies arthralgias Denies restless legs Psychiatric: Denies anxiety Diagnostics Vital Signs (24Hr): Vital Signs - 24 hr 01/23/21 17:00 01/23/21 18:08 01/23/21 19:02 Temperature 97.5 F Pulse Rate 158 H 158 H 130 H Respiratory Rate 18 20 Blood Pressure 190/100 H 190/100 H 179/81 H Pulse Oximetry 95 97 01/23/21 20:02 01/23/21 21:23 01/23/21 23:18 Temperature 98.5 F Pulse Rate 130 H 120 H 83 Respiratory Rate 18 Blood Pressure 113/86 139/94 H Pulse Oximetry 92 01/24/21 03:07 01/24/21 07:28 01/24/21 08:31 Temperature 98.6 F 98.7 F Pulse Rate 68 91 167 H Respiratory Rate 20 18 Blood Pressure 108/64 142/88 H 140/82 H Pulse Oximetry 92 95 01/24/21 08:33 01/24/21 09:10 01/24/21 09:13 Temperature Pulse Rate 167 H 170 H 169 H Respiratory Rate Blood Pressure 140/82 H 141/86 H 150/96 H Pulse Oximetry 01/24/21 09:19 01/24/21 11:13 01/24/21 11:34 Temperature Pulse Rate 135 H 105 H 110 H Respiratory Rate Blood Pressure 121/94 H Pulse Oximetry 01/24/21 11:51 01/24/21 12:44 01/24/21 13:52 Temperature 98.4 F Pulse Rate 71 134 H 83 Respiratory Rate 20 Blood Pressure 145/80 H 132/75 Pulse Oximetry 99 Body Mass Index 23.8 Labs Results: 01/24/21 05:48 01/24/21 05:48 Labs: Laboratory Results - last 48 hr 01/20/21 01/23/21 01/23/21 17:22 05:20 05:20 WBC 12.2 H RBC 3.59 L Hgb 11.4 L Hct 33.6 L MCV 93.6 MCH 31.8 MCHC 33.9 RDW 14.5 Plt Count 180 MPV 8.9 L Immature Gran % (Auto) 0.4 Neut % (Auto) 74.9 H Lymph % (Auto) 15.1 L [place] % (Auto) 7.9 Eos % (Auto) 1.4 Baso % (Auto) 0.3 Lymph # (Auto) 1.8 [place] # (Auto) 1.0 Eos # (Auto) 0.2 Baso # (Auto) 0.0 Abs Immat Gran (auto) 0.05 H Absolute Neuts (auto) 9.1 H Absolute Nucleated RBC 0.000 Nucleated RBC % (auto) 0.0 VBG pH VBG pCO2 VBG pO2 VBG HCO3 VBG O2 Saturation VBG Base Excess Sodium 146 H Potassium 3.9 Chloride 112 H Carbon Dioxide 25 Anion Gap 13 BUN 11 D Creatinine 0.86 Estim Creat Clear Calc 75.2 Estimated GFR > 60 Random Glucose 104 Calcium 8.5 Phosphorus 3.9 Magnesium 2.2 Total Bilirubin 1.0 AST 24 ALT 38 Alkaline Phosphatase 69 B-Natriuretic Peptide Total Protein 6.0 L Albumin 3.4 L TSH C. difficile Tox B Gene Ur L.pneumophila Ag Not Detected 01/23/21 01/23/21 01/23/21 05:29 12:27 18:55 WBC RBC Hgb Hct MCV MCH MCHC RDW Plt Count MPV Immature Gran % (Auto) Neut % (Auto) Lymph % (Auto) [place] % (Auto) Eos % (Auto) Baso % (Auto) Lymph # (Auto) [place] # (Auto) Eos # (Auto) Baso # (Auto) Abs Immat Gran (auto) Absolute Neuts (auto) Absolute Nucleated RBC Nucleated RBC % (auto) VBG pH 7.46 H VBG pCO2 30 VBG pO2 55 VBG HCO3 22 VBG O2 Saturation 81.0 VBG Base Excess -1.0 Sodium 146 H Potassium 3.6 Chloride 115 H Carbon Dioxide 17 L Anion Gap 18 BUN 11 Creatinine 0.83 Estim Creat Clear Calc 77.9 Estimated GFR > 60 Random Glucose 111 Calcium 9.0 Phosphorus Magnesium Total Bilirubin AST ALT Alkaline Phosphatase B-Natriuretic Peptide Total Protein Albumin TSH 0.45 C. difficile Tox B Gene NEGATIVE Ur L.pneumophila Ag 01/23/21 01/24/21 01/24/21 18:55 05:48 05:48 WBC 14.5 H RBC 4.28 L Hgb 13.6 L Hct 40.2 L MCV 93.9 MCH 31.8 MCHC 33.8 RDW 14.7 Plt Count 235 D MPV 9.1 L Immature Gran % (Auto) 0.6 H Neut % (Auto) 71.1 Lymph % (Auto) 17.3 L [place] % (Auto) 9.6 Eos % (Auto) 1.0 Baso % (Auto) 0.4 Lymph # (Auto) 2.5 [place] # (Auto) 1.4 H Eos # (Auto) 0.2 Baso # (Auto) 0.1 Abs Immat Gran (auto) 0.09 H Absolute Neuts (auto) 10.3 H Absolute Nucleated RBC 0.000 Nucleated RBC % (auto) 0.0 VBG pH VBG pCO2 VBG pO2 VBG HCO3 VBG O2 Saturation VBG Base Excess Sodium 146 H Potassium 3.7 Chloride 112 H Carbon Dioxide 19 L Anion Gap 19 BUN 15 Creatinine 0.98 Estim Creat Clear Calc 66.0 Estimated GFR > 60 Random Glucose 97 Calcium 8.8 Phosphorus 3.5 Magnesium 2.7 H Total Bilirubin AST ALT Alkaline Phosphatase B-Natriuretic Peptide 1109 H Total Protein Albumin 3.9 TSH C. difficile Tox B Gene Ur L.pneumophila Ag Imaging Radiology Impressions: ITS Impressions Abdomen/Pelvis CT 01/18/21 15:36 IMPRESSION: There is bilateral dependent upper lobe and lower lobe bilateral pulmonary edema or contusions. In addition there is bilateral lower lobe consolidation and atelectasis and small right pleural effusion. There is focal parenchymal thickening right upper lobe adjacent to the major fissure likely atelectasis. There is a small right pleural effusion. There is extensive coronary artery, abdominal aorta and common iliac artery calcifications. There is an endotracheal tube with its tip at the GE junction and needs to be advanced by 10 cm. The endotracheal tube tip is in distal trachea in satisfactory position. There is a [place] graft extending from the left axillary artery to the left common femoral artery and a second [place] graft extending from left femoral to right femoral artery. Degenerative disc changes as discussed above. Cervical Spine CT 01/18/21 15:37 IMPRESSION: No fracture or dislocation. Degenerative changes. Chest CT 01/18/21 15:37 IMPRESSION: There is bilateral dependent upper lobe and lower lobe bilateral pulmonary edema or contusions. In addition there is bilateral lower lobe consolidation and atelectasis and small right pleural effusion. There is focal parenchymal thickening right upper lobe adjacent to the major fissure likely atelectasis. There is a small right pleural effusion. There is extensive coronary artery, abdominal aorta and common iliac artery calcifications. There is an endotracheal tube with its tip at the GE junction and needs to be advanced by 10 cm. The endotracheal tube tip is in distal trachea in satisfactory position. There is a [place] graft extending from the left axillary artery to the left common femoral artery and a second [place] graft extending from left femoral to right femoral artery. Degenerative disc changes as discussed above. Head CT 01/18/21 15:37 IMPRESSION: No acute intracranial findings. 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 Increasing sinus disease. Question polyps in the posterior nasal cavity/nasopharynx. Chest X-Ray 01/18/21 17:01 IMPRESSION: No acute intrathoracic disease. All tubes and lines in good position. Chest X-Ray 01/18/21 19:39 IMPRESSION: Endotracheal tube with its tip approximately 5 cm proximal to the viraj. Additional support lines in appropriate position as above. Possible small, layering right-sided pleural effusion, new when compared to the prior examination. Mental Status Exam Mental Status Exam Patient Appearance: Appropriate Patient Orientation: Person and Place Patient Behavior: Cooperative Mood Description: Relaxed Affect Description: Relaxed Speech Pattern: Clear and Long Pauses Memory Description: Recent Impaired Hallucinations: None Thought Process: Slowed Thinking Thought Content: positive for [place] and positive for Slowed Thinking Judgement: Fair Medications Medications Current Medications Generic Name Dose Route Start Last Admin Trade Name Freq PRN Reason Stop Dose Admin Albuterol/Ipratropium 3 ml 01/19/21 08:00 01/24/21 15:32 Albuterol/Iprat 2.5/0.5mg 3 Ml Ampul.Neb INHALE Not Given RQ4H WHILE AWAKE CARLIE Amiodarone HCl 200 mg 01/22/21 21:00 01/24/21 08:33 Amiodarone Hcl 200 Mg Tablet PO 200 mg BID CARLIE Administration Apixaban 5 mg 01/18/21 21:00 01/24/21 08:33 Apixaban 5 Mg Tablet PO 5 mg BID CARLIE Administration Aspirin 81 mg 01/19/21 09:00 01/24/21 08:33 Aspirin 81 Mg Tab.Chew PO 81 mg DAILY CARLIE Administration Atorvastatin Calcium 40 mg 01/18/21 21:00 01/23/21 21:24 Atorvastatin Calcium 40 Mg Tablet PO 40 mg BEDTIME CARLIE Administration Nafcillin Sodium 2 gm/ Sodium 100 mls @ 200 mls/hr 01/22/21 11:30 01/24/21 13:13 Chloride IV Infused Q6H CARLIE Infusion Diltiazem HCl 125 mg/ Sodium 125 mls @ 0 mls/hr 01/23/21 18:00 01/24/21 13:52 Chloride IVCONT 0 mg/hr .Q0M CARLIE 0 mls/hr Titration Protocol Per Protocol Levetiracetam 500 mg 01/23/21 21:00 01/24/21 08:33 Levetiracetam 500 Mg Tablet PO 500 mg BID CARLIE Administration Melatonin 6 mg 01/24/21 00:20 01/24/21 00:30 Melatonin 3 Mg Tablet PO 6 mg BEDTIME PRN Administration Insomnia Nicotine 21 mg 01/23/21 10:45 01/24/21 08:33 Nicotine 21 Mg Patch.Td24 TRANSDERMA 21 mg DAILY CARLIE Administration Omeprazole 20 mg 01/19/21 06:45 01/24/21 05:27 Omeprazole 20 Mg/10 Ml Susp.Recon PO 20 mg DAILY@0630 CARLIE Administration Pharmacy Consult 1 each 01/18/21 15:36 Consult Rx Perform Med Rec MISCELLANE ONCE PRN Consult order Allergies Allergies Allergy/AdvReac Type Severity Reaction Status Date / Time No Known Allergies Allergy Unverified 01/12/21 01:03 Assessment & Plan Assessment & Plan (1) Opioid use disorder: Status: Acute Code(s): F11.99 - Opioid use, unspecified with unspecified opioid-induced disorder Assessment and Plan: will follow up in the morning with patient and discuss MOUD collateral from if patient consents Greater than 50% of the session was spent on counseling and/or coordination of care [facility] Past Medical History Medical History Atrial fibrillation CAD (coronary artery disease) CHF (congestive heart failure) Cocaine abuse with intoxication COPD (chronic obstructive pulmonary disease) Drug abuse 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 Heroin use Hyperlipemia Paroxysmal atrial fibrillation PVD (peripheral vascular disease) Toxic encephalopathy Family History Family history: reviewed and not pertinent Surgical History Surgical History S/P CABG x 2 Social History Social History Household Members: Unknown / Unable to assess Housing: Unknown / Unable to assess Unable to assess alcohol history related to: Unable to respond Alcohol intake: never Patient Tobacco Use Status: Current everyday Tobacco user Tobacco use type: Cigarette Cigarettes Per Day: 5 e-Cigarette/Vaping Use: Never Used Use of substances other than those prescribed or required for medical reasons: Yes Substance Use Type: Crack/Cocaine, Opiates, Painkillers and Prescription Drugs Last Used Substance Other:: tested positive for benzos, opiates, fentanyl. field report says cocaine Currently Displaying Signs/Symptoms of Drug Intoxication Withdrawal: No Advance Directives: Yes Advance Directives Information Provided: No Advance Directives on File: Yes Advance Directives Date on File: 01/12/21 Do you have thoughts of harming others: None Do you have a plan to hurt others: No Plan Recently lost weight without trying: Unsure Nutrition Risks: On aspiration precautions service: No Current occupational status: retired
[2021-01-24] MEDS: Atorvastatin Calcium 40 MG TABLET PO (20:49)
--- NOTE | 2021-01-24 23:39 | PM.EVENT ---
Event Note Date of Service: 01/24/21 Event Note: Fall: At around 11:30 p.m. on 01/24/2021; patient had a fall. Patient reported that he was feeling dizzy and when tried to get out of the bed he slipped and landed on his left side of the hip; denies any head strike or loss of consciousness. Denies any seizure-like activity. Denies any chest pain or palpitations before or after the episode. Exam was nonfocal. Musculoskeletal exam benign. Spoke to the RN for fall precautions. Supportive care.
[2021-01-25] VITALS (12 sets, daily range): BP systolic 95–144; BP diastolic 53–96; PULSE 64–170; RESP 16–24; TEMP 36.7–37.2; O2SAT 94–98
--- NOTE | 2021-01-25 01:17 | PC.NURSE ---
Addendum entered by Narda Mckenzie RN 01/25/21 02:30: Pt HR sustaining 150-170's in afib/aflutter. Cardizem gtt titrated up to max dose 15mg/hr and still with a HR in the 160's. MD made aware. Order for 5mg IV lopressor ordered and administered around 01:45 with good effect. HR trended down to 90-100's and then converted from aflutter back to NSR at 02:20am. HR now 60-70's. Pt asymptomatic, his only complaint is that he has been feeling dizzy which has been ongoing since start of shift. He resting at this time trying to sleep. Will continue to monitor. Original Note: At 23:30 pt tried to get oob to go to the bathroom and sustained fall in room next to bed. Pt did not hit head or lose consciousness. Conference Assistant and MD made aware. MD at bedside to evaluate. Pt A&Ox3, not complaining of any pain. Able to move all extremities and neck with no difficulty or pain. VSS. BP 118/94, HR 107, O2 94%. However about 30 mins after this pt converted from NSR back into Aflutter. MD made aware and orders to restart cardizem gtt at 2.5mg/hr and titrate as needed. Pt educated on importance of using call bobby and safety measures in place. Telesitter in room. Bed alarms on. High fall risk socks on. Will continue to monitor and reassess.
[2021-01-25] MEDS: Metoprolol Tartrate 5 MG/5 ML VIAL IVPUSH (01:45)
[2021-01-25] MEDS: Nafcillin Sodium 2 GM in 0.9 % Sodium Chloride 100 ML IV ×4 (05:56→22:34)
[2021-01-25 06:24] LABS: Hematocrit 43.3 % (42-52); Hemoglobin 14.4 g/dl (14.0-18.0); Mean Corpuscular HGB Conc 33.3 g/dl (31.0-36.0); Mean Corpuscular Hemoglobin 31.5 pg (27.0-33.0); Mean Corpuscular Volume 94.7 fL (80-98); Mean Platelet Volume 9.2 fL (9.4-12.4); Platelet Count 283 X10*3/uL (160-400); Red Blood Count 4.57 X10*6/uL (4.60-5.80); Red Cell Distribution Width 14.6 % (11.0-16.0); White Blood Count 14.8 X10*3/uL (4.8-10.8)
[2021-01-25 06:44] LABS: Anion Gap 17 (12-20); Blood Urea Nitrogen 17 mg/dL (9-16); Calcium 9.2 mg/dL (8.4-10.2); Carbon Dioxide 21 mmol/L (22-29); Chloride 114 mmol/L (96-108); Creatinine Clr Calc Pharmacy 55.7; Estimated Glomerular Filt Rate > 60; Glucose Random 100 mg/dL (60-115); Potassium 4.1 mmol/L (3.3-5.1); Sodium 148 mmol/L (135-145)
[2021-01-25] MEDS: Nicotine 21 MG PATCH.TD24 TRANSDERMA (10:10)
[2021-01-25] MEDS: Aspirin 81 MG TAB.CHEW PO (10:11)
[2021-01-25] MEDS: Apixaban 5 MG TABLET PO ×2 (10:11→22:33)
[2021-01-25] MEDS: levETIRAcetam 500 MG TABLET PO ×2 (10:11→22:34)
[2021-01-25] MEDS: Amiodarone HCL 200 MG TABLET 400 MG PO ×2 (10:11→22:33)
[2021-01-25] MEDS: Dextrose 5 % 1,000 ML 100 ML IVCONT (10:12)
[2021-01-25] MEDS: dilTIAZem HCL 125 MG in 0.9 % Sodium Chloride 100 ML 10 MG IVCONT (13:30)
--- NOTE | 2021-01-25 13:30 | CA_ITS ---
Transthoracic Echocardiogram Patient (Last, First, Middle): Phan Boateng C Gender: Male Date of : 1955 Age: 66 Procedure Date: 01/25/2021 Procedure Type: Transthoracic Echocardiogram Location: [facility] [place] Height: 167.64 cm Weight: 66.68 kg BSA: 1.75 m2 Heart Rate: bpm BP: 122 / 76 mmHg Birth Certificate Clerk: ROMÁN/ASCENCION Referring MD: Mukesh Alvares MD Symptoms: cardiac arrest, reassess LVEF Study Quality: Fair Conclusions: - The left ventricular systolic function is mildly decreased. The visually estimated ejection fraction is between 40-45%. - The basal inferior, mid inferior, basal inferoseptal, and basal anteroseptal segments are akinetic. - The segments are thinned out and hyperechoic and likely represent old infarct. Findings Left Ventricle Normal left ventricular cavity size. There is mildly increased left ventricular wall thickness. The left ventricular systolic function is mildly decreased. The visually estimated ejection fraction is between 40-45%. There is evidence of regional wall motion abnormalities. Abnormal diastolic function is noted. Spectral Doppler is indicative of an impaired relaxation filling pattern. E/E prime ratio is between 8 and 15 consistent with indeterminate filling pressures. Wall Motion Rest Echo Findings The basal inferior, mid inferior, basal inferoseptal, and basal anteroseptal segments are akinetic. Right Ventricle The right ventricle was not well visualized. Measurements 2D Linear Measurements IVSd: 1.03 0.6-0.9/0.6-1.0 cm LVIDd: 3.55 3.9-5.3/4.2-5.9 cm LVIDd Index: 2.03 2.4-3.2/2.2-3.1 cm/m2 LVIDs: 2.89 2.0-3.6 cm LVPWd: 1.21 0.7-1.1 cm LV Mass: 155.34 67-162/88-224 g LV Mass Index: 88.77 43-95/49-115 g/m2 2D Systolic Function EF 4C: 48.20 >55% EF 2C: 51.40 >55% Mitral Valve MV Pk E: 0.55 MV PK A: 0.86 MV Decel Time: 282.00 E/A: 0.60 E'Lateral: 6.31 E'Medial: 5.22 E/E' Med: 10.50 E/E' Lat: 8.70 PHT: 83.00 MVA PHT: 2.65 Decel [place]: 1.95 Diastolic Function MV Pk E: 0.55 MV Pk A: 0.86 E/A: 0.60 E'Medial: 5.22 E/E' Med: 10.50 E' Laterial: 6.31 E/E' Lat: 8.70 Updated in Other Vendor System with Status of Final Mukesh Alvares MD electronically signed on 01/25/2021 4:19:29 PM with status of Final
--- NOTE | 2021-01-25 14:12 | P.PNIM_ITS ---
Subjective Subjective Date of Service: 01/25/21 Interval History: Seen and examined this morning Follow-up for rapid AFib Had complaints of dizziness yesterday. Overnight had a fall documented by music instructor. No injury. Continues to go in and out of rapid AFib. Denies chest pain, palpitations Review of Systems Review of Systems: Yes all other systems are reviewed and are negative Constitutional Constitutional: Denies chills and Denies fever(s) Cardiovascular Cardiovascular: Denies chest pain Respiratory Respiratory: Denies cough Gastrointestinal Gastrointestinal: Denies abdominal pain Physical Exam Vital Signs: Vital Signs: Last Vital Signs Temp 98.5 F 01/25/21 11:42 Pulse 106 H 01/25/21 13:09 Resp 24 H 01/25/21 11:42 BP 144/95 H 01/25/21 11:42 Pulse Ox 94 01/25/21 11:42 Body Mass Index 23.8 Const: General: no acute distress, alert and awake Nutritional Appearance: well nourished HENMT: Head: Yes normocephalic and Yes atraumatic Eyes: Sclerae: sclerae normal Chest: Chest palpation & inspection: normal inspection of the chest Resp: Effort & Inspection: normal respiratory effort and no respiratory distress Cardio: Rate: tachycardic Rhythm: abnormal rhythm GI: Palpation (GI): Soft to palpation and nontender Neuro: Cranial nerves: Yes CN's II-XII intact bilaterally and Yes Bilaterally intact EOM present Extrem: Other: no edema Objective Data Active Medications Albuterol/Ipratropium (Albuterol/Iprat 2.5/0.5mg 3 Ml Ampul.Neb) 3 ml INHALE RQ4H WHILE AWAKE [facility] Last Admin: 01/25/21 11:38 Dose: Not Given Documented by: MIKY Non-Admin Reason: Elevated Heart Rate Amiodarone HCl (Amiodarone Hcl 200 Mg Tablet) 400 mg PO BID [facility] Last Admin: 01/25/21 10:11 Dose: 400 mg Documented by: ALEJANDRINA Apixaban (Apixaban 5 Mg Tablet) 5 mg PO BID [facility] Last Admin: 01/25/21 10:11 Dose: 5 mg Documented by: ALEJANDRINA Aspirin (Aspirin 81 Mg Tab.Chew) 81 mg PO DAILY [facility] Last Admin: 01/25/21 10:11 Dose: 81 mg Documented by: ALEJANDRINA Atorvastatin Calcium (Atorvastatin Calcium 40 Mg Tablet) 40 mg PO BEDTIME [facility] Last Admin: 01/24/21 20:49 Dose: 40 mg Documented by: ISREAL Nafcillin Sodium 2 gm/ Sodium (Chloride) 100 mls @ 200 mls/hr IV Q6H [facility] Last Infusion: 01/25/21 12:34 Dose: 0 mls/hr Documented by: ALEJANDRINA Diltiazem HCl 125 mg/ Sodium (Chloride) 125 mls @ 0 mls/hr IVCONT .Q0M [facility]; Protocol Last Admin: 01/25/21 13:30 Dose: 10 mg/hr, 10 mls/hr Documented by: ALEJANDRINA Dextrose (D5w) 1,000 mls @ 100 mls/hr IVCONT .Q10H [facility] Stop: 01/25/21 18:59 Last Admin: 01/25/21 10:12 Dose: 100 mls/hr Documented by: ALEJANDRINA Levetiracetam (Levetiracetam 500 Mg Tablet) 500 mg PO BID [facility] Last Admin: 01/25/21 10:11 Dose: 500 mg Documented by: ALEJANDRINA Loperamide HCl (Loperamide Hcl 2 Mg Capsule) 2 mg PO Q4H PRN PRN Reason: Diarrhea Melatonin (Melatonin 3 Mg Tablet) 6 mg PO BEDTIME PRN PRN Reason: Insomnia Last Admin: 01/24/21 00:30 Dose: 6 mg Documented by: YOLY Nicotine (Nicotine 21 Mg Patch.Td24) 21 mg TRANSDERMA DAILY [facility] Last Admin: 01/25/21 10:10 Dose: 21 mg Documented by: ALEJANDRINA Omeprazole (Omeprazole 20 Mg/10 Ml Susp.Recon) 20 mg PO DAILY@0630 [facility] Last Admin: 01/25/21 05:56 Dose: 20 mg Documented by: ISREAL Pharmacy Consult (Consult Rx Perform Med Rec) 1 each MISCELLANE ONCE PRN PRN Reason: Consult order Labs CBC & Chem 7: 01/25/21 05:50 01/25/21 05:50 Labs: Laboratory Results - last 24 hr 01/25/21 01/25/21 05:50 05:50 MCV 94.7 MCH 31.5 MCHC 33.3 RDW 14.6 Plt Count 283 MPV 9.2 L Absolute Nucleated RBC 0.000 Nucleated RBC % (auto) 0.0 Anion Gap 17 Estim Creat Clear Calc 55.7 Estimated GFR > 60 Random Glucose 100 Calcium 9.2 Assessment and Plan (1) Atrial flutter: Status: Acute (2) Cardiomyopathy: Status: Acute (3) Opioid use disorder: Status: Acute (4) Seizure disorder: Status: Acute Assessment and Plan: This is a 66-year-old male with a history of atrial fibrillation on Eliquis, CAD status post CABG polysubstance abuse admitted on 01/18/2021 after witnessed seizure episode likely resulting in aspiration and possible VFib arrest, now status post therapeutic hypothermia, also with finding of 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 Extubated uneventfully on 01/22/2021 and downgraded to the medical floor 01/23/2021 course further complicated by atrial flutter/AFib with RVR Atrial flutter/AFib RVR HR uncontrolled, has been in and out of afib with RVR Continue Cardizem drip amiodorone dose increased Continue Eliquis Cardiology following Hypernatremia mild NA146 IVF Follow BMP Acute respiratory failure with hypoxia requiring ventilatory support Likely component of aspiration extubated 01/22 Sputum cx growing MSSA - on nafcillin started 01/22 Blood cultures negative Combined systolic/diastolic CHF Seen by cardiology Repeat echo pending Seizure Brain CT negative occurred in setting of drug use/cardiac arrest EEG done 01/19 limited but not showing any seizure activity Continue Keppra seizure precautions Diarrhea cdif negative likely r/t withdrawal prn immodium h/o CAD Continue aspirin, statin Polysubstance abuse seen by Addiction medicine, plan to start suboxone tobacco dependence smoking cessation advised NRT DVT prophylaxis-[facility] Attending physician-Dr. Black Quality Stroke Does the patient have a stroke diagnosis?: No VTE Prior VTE?: No VTE Risk Level:: Medical - moderate - high VTE Device Contraindication: N/A - Device Ordered VTE Drug Contraindication: N/A - Med Ordered
[2021-01-25] MEDS: Loperamide HCl 2 MG CAPSULE PO (14:43)
--- NOTE | 2021-01-25 16:00 | MHC.RECOVRN ---
1100- Followed up with pt to discuss MOUD. 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 Pt has been using cocaine, [place], x 2 years, as well as heroin, [place], 1 bag daily, x 1 year. Pt began using heroin 1 year ago after brother suggested pt try it. Pt recalls overdose approx 2 weeks ago. Pt states I did a line, I thought it was cocaine. Cocaine isn't what it used to be. Pt educated regarding fentanyl, risks of overdose, and Narcan. Pt c/o diarrhea, receiving loperamide. Pt denies other withdrawal symptoms. Pt educated regarding MOUD, pt would like to initiate Suboxone. Pt denies taking it in the past. 1600- Met with pt and to discuss plan to initiate Suboxone. Pt agrees to conversation with present. Pt concerned regarding 's substance use and would like to encourage her to seek treatment. reports she has cut down from 1 bundle daily to 5 bags daily. Pts reports pt intended to initiate Suboxone with [facility], unknown when, but did not follow up. also educated regarding MOUD, fentanyl, risks of overdose, Narcan/Narcan administration, and how to respond to an overdose. Provided pt and information on community supports, recovery resources, and MOUD. Pts also given t/w contact information if questions or concerns arise. Of note, pt gives permission for and t/w to speak via telephone, /Dinorah phone number [phone]. Case discussed with Lynette Tristan APRN.
--- NOTE | 2021-01-25 16:35 | PM.PNCARD ---
Subjective Subjective Date of Service: 01/25/21 Interval history: Went back into atrial flutter with rapid ventricular response in the morning. He was started back on Cardizem drip. Amiodarone was increased to 400 mg b.i.d. last night. Physical Exam Vital Signs: Last Vital Signs Temp 98.9 F 01/25/21 15:30 Pulse 104 H 01/25/21 15:30 Resp 18 01/25/21 15:30 BP 134/86 01/25/21 15:30 Pulse Ox 98 01/25/21 15:30 Body Mass Index 23.8 GENERAL APPEARANCE: in no acute distress, pleasant. NECK: no carotid bruit, no jugular venous distention. SKIN: no suspicious lesions, warm and dry. HEART: no murmurs, Tachycardic. LUNGS: clear to auscultation bilaterally. ABDOMEN: soft, nontender. EXTREMITIES: no edema. PERIPHERAL PULSES: equal. Results Labs and Meds Result diagrams: 01/25/21 05:50 01/25/21 05:50 Lab results: Laboratory Results - last 24 hr 01/25/21 01/25/21 05:50 05:50 WBC 14.8 H RBC 4.57 L Hgb 14.4 Hct 43.3 MCV 94.7 MCH 31.5 MCHC 33.3 RDW 14.6 Plt Count 283 MPV 9.2 L Absolute Nucleated RBC 0.000 Nucleated RBC % (auto) 0.0 Sodium 148 H Potassium 4.1 Chloride 114 H Carbon Dioxide 21 L Anion Gap 17 BUN 17 H Creatinine 1.16 Estim Creat Clear Calc 55.7 Estimated GFR > 60 Random Glucose 100 Calcium 9.2 Progress Note: A&P Assessment and plan (1) Atrial flutter: Status: Acute (2) Cardiac arrest: Status: Acute (3) Cardiomyopathy: Status: Acute Assessment and Plan: 66 gentleman who presented with cardiac arrest in the setting of cocaine and heroin abuse. Initially echocardiogram performed in ICU by dye house wheel operator showed severely reduced ejection fraction. We have repeated an official echocardiogram showing EF of 40 45%. This is somewhat similar to his baseline ejection fraction. He has wall motion abnormalities due to previous CA. He has been out of atrial flutter. Continue amiodarone 400 mg twice a day. Resume with Cardizem drip tele reverts back to sinus rhythm. Thank you for allowing me to participate in the care of your patient. Please feel free to contact me if you have any questions. Fall Risk Details Current Medications: Current Medications Generic Name Dose Route Start Last Admin Trade Name Homer PRN Reason Stop Dose Admin Albuterol/Ipratropium 3 ml 01/19/21 08:00 01/25/21 15:13 Albuterol/Iprat 2.5/0.5mg 3 Ml Ampul.Neb INHALE Not Given RQ4H WHILE AWAKE [facility] Amiodarone HCl 400 mg 01/25/21 09:00 01/25/21 10:11 Amiodarone Hcl 200 Mg Tablet PO 400 mg BID [facility] Administration Apixaban 5 mg 01/18/21 21:00 01/25/21 10:11 Apixaban 5 Mg Tablet PO 5 mg BID [facility] Administration Aspirin 81 mg 01/19/21 09:00 01/25/21 10:11 Aspirin 81 Mg Tab.Chew PO 81 mg DAILY [facility] Administration Atorvastatin Calcium 40 mg 01/18/21 21:00 01/24/21 20:49 Atorvastatin Calcium 40 Mg Tablet PO 40 mg BEDTIME [facility] Administration Buprenorphine/Naloxone 1 film 01/26/21 09:00 Buprenorphine/Naloxone 2/0.5mg Film SUBLINGUAL DAILY [facility] Nafcillin Sodium 2 gm/ Sodium 100 mls @ 200 mls/hr 01/22/21 11:30 01/25/21 12:34 Chloride IV Infused Q6H [facility] Infusion Diltiazem HCl 125 mg/ Sodium 125 mls @ 0 mls/hr 01/23/21 18:00 01/25/21 13:30 Chloride IVCONT 10 mg/hr .Q0M [facility] 10 mls/hr Administration Protocol Per Protocol Dextrose 1,000 mls @ 100 mls/hr 01/25/21 09:00 01/25/21 10:12 D5w IVCONT 01/25/21 18:59 100 mls/hr .Q10H [facility] Administration Levetiracetam 500 mg 01/23/21 21:00 01/25/21 10:11 Levetiracetam 500 Mg Tablet PO 500 mg BID [facility] Administration Loperamide HCl 2 mg 01/25/21 08:57 01/25/21 14:43 Loperamide Hcl 2 Mg Capsule PO 2 mg Q4H PRN Administration Diarrhea Melatonin 6 mg 01/24/21 00:20 01/24/21 00:30 Melatonin 3 Mg Tablet PO 6 mg BEDTIME PRN Administration Insomnia Nicotine 21 mg 01/23/21 10:45 01/25/21 10:10 Nicotine 21 Mg Patch.Td24 TRANSDERMA 21 mg DAILY [facility] Administration Omeprazole 20 mg 01/19/21 06:45 01/25/21 05:56 Omeprazole 20 Mg/10 Ml Susp.Recon PO 20 mg DAILY@0630 [facility] Administration Pharmacy Consult 1 each 01/18/21 15:36 Consult Rx Perform Med Rec MISCELLANE ONCE PRN Consult order Time Spent With Patient Time: Total time spent is greater than 50% in coordination of care (as documented) at patient's floor/unit and/or counseling patient: Time with patient: 25 - 35 minutes Progress Note: Quality Stroke Does the patient have a stroke diagnosis?: No Procedures Date of Service Date of Service: 01/25/21
[2021-01-25] MEDS: Metoprolol Tartrate 25 MG TABLET PO (18:52)
[2021-01-25] MEDS: Albuterol/Iprat 2.5/0.5MG 3 ML AMPUL.NEB INHALE (19:37)
[2021-01-25] MEDS: Atorvastatin Calcium 40 MG TABLET PO (22:33)
[2021-01-26] VITALS (11 sets, daily range): BP systolic 85–148; BP diastolic 53–72; PULSE 62–102; RESP 18–20; TEMP 36.6–37.2; O2SAT 94–100; BMI 23.9
[2021-01-26] MEDS: Melatonin 3 MG TABLET 6 MG PO (00:29)
[2021-01-26] MEDS: Metoprolol Tartrate 25 MG TABLET PO ×2 (01:38→10:39)
[2021-01-26] MEDS: Nafcillin Sodium 2 GM in 0.9 % Sodium Chloride 100 ML IV ×3 (06:09→16:55)
[2021-01-26 06:14] LABS: Hematocrit 40.4 % (42-52); Hemoglobin 13.6 g/dl (14.0-18.0); Mean Corpuscular HGB Conc 33.7 g/dl (31.0-36.0); Mean Corpuscular Hemoglobin 31.9 pg (27.0-33.0); Mean Corpuscular Volume 94.6 fL (80-98); Mean Platelet Volume 8.9 fL (9.4-12.4); Platelet Count 301 X10*3/uL (160-400); Red Blood Count 4.27 X10*6/uL (4.60-5.80); Red Cell Distribution Width 14.6 % (11.0-16.0); White Blood Count 15.9 X10*3/uL (4.8-10.8)
[2021-01-26 06:39] LABS: Anion Gap 12 (12-20); Blood Urea Nitrogen 13 mg/dL (9-16); Calcium 8.7 mg/dL (8.4-10.2); Carbon Dioxide 24 mmol/L (22-29); Chloride 112 mmol/L (96-108); Creatinine Clr Calc Pharmacy 52.1; Estimated Glomerular Filt Rate 58; Glucose Random 108 mg/dL (60-115); Magnesium 2.3 mg/dL (1.6-2.6); Potassium 4.1 mmol/L (3.3-5.1); Sodium 144 mmol/L (135-145)
--- NOTE | 2021-01-26 07:00 | ECG_ITS ---
Test Reason : RHYTHM CHANGE Blood Pressure : / mmHG Vent. 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
--- NOTE | 2021-01-26 07:36 | PC.NURSE ---
pt with soft bp when lopressor 25mg po due at midnoc, contact to Dr. Mcconnell, held lopressor for 95/53 bp with improvement on recheck to 100/55. nsr pac & pvc. held lopressor 25mg po initially, then given @ approx 0200 when pt converted to Aflutter. & bp improved as documented in meds. s/p lopressor, pt converted to NSR pac's/PVC isolated. pt asymptomatic
[2021-01-26] MEDS: Apixaban 5 MG TABLET PO ×2 (10:26→22:30)
[2021-01-26] MEDS: Aspirin 81 MG TAB.CHEW PO (10:26)
[2021-01-26] MEDS: Buprenorphine/Naloxone 2/0.5mg FILM 1 FILM SUBLINGUAL (10:26)
[2021-01-26] MEDS: Nicotine 21 MG PATCH.TD24 TRANSDERMA (10:27)
[2021-01-26] MEDS: levETIRAcetam 500 MG TABLET PO ×2 (10:27→22:30)
--- NOTE | 2021-01-26 10:30 | MHC.RECOVRN ---
Pts called t/w to state he can't come home, he is going to . Pt had spoken to earlier today and informed her he would like to d/c whether or not he is medically cleared today. Message passed via [facility] to Gaviota Padilla NP, who completed consult for capacity.
[2021-01-26] MEDS: Amiodarone HCL 200 MG TABLET 400 MG PO (10:39)
--- NOTE | 2021-01-26 12:00 | HO.ADDICTPRO ---
Subjective Subjective Date of Service: 01/26/21 Reason For Visit: WITNESSED CARDIAC ARREST Interim History: Patient seen in follow up Recovery support RN has been working closely with patient and his . Patient agreeable to suboxone trial. Discussed goals of medication, dosing, side effects Patient reporting loose stools, but denies any other withdrawal sx Somewhat irritable, wants to go home. Review of Systems Medical Review of Systems: unchanged Mental Status Exam Mental Status Exam Patient Appearance: Appropriate Patient Orientation: Person, Place and Situation Level of Consciousness: Awake, Appropriate and Alert Patient Behavior: Appropriate and Talkative Mood Description: Apprehensive Affect Description: Apprehensive Speech Pattern: Clear Thought Process: Goal Oriented Thought Content: positive for Goal Oriented Judgement: Fair Diagnostics Vital Signs (24Hr): Vital Signs - 24 hr 01/25/21 13:09 01/25/21 15:30 01/25/21 18:52 Temperature 98.9 F Pulse Rate 106 H 104 H Respiratory Rate 18 Blood Pressure 134/86 110/65 Pulse Oximetry 98 01/25/21 19:32 01/25/21 19:38 01/25/21 22:33 Temperature 98.9 F Pulse Rate 80 64 80 Respiratory Rate 19 Blood Pressure 95/53 L 100/55 L Pulse Oximetry 98 01/26/21 00:00 01/26/21 01:38 01/26/21 03:48 Temperature 97.9 F 98.5 F Pulse Rate 78 102 H 62 Respiratory Rate 18 18 Blood Pressure 99/54 L 104/72 114/53 L Pulse Oximetry 96 95 01/26/21 07:58 01/26/21 10:39 01/26/21 10:45 Temperature 98.6 F Pulse Rate 71 Respiratory Rate 20 Blood Pressure 96/58 L 148/66 H 148/66 H Pulse Oximetry 94 01/26/21 11:30 Temperature 98.4 F Pulse Rate 72 Respiratory Rate 18 Blood Pressure 111/60 Pulse Oximetry 95 Body Mass Index 23.9 Labs Results: 01/26/21 05:53 01/26/21 05:53 Labs: Laboratory Results - last 48 hr 01/20/21 01/25/21 01/25/21 17:22 05:50 05:50 WBC 14.8 H RBC 4.57 L Hgb 14.4 Hct 43.3 MCV 94.7 MCH 31.5 MCHC 33.3 RDW 14.6 Plt Count 283 MPV 9.2 L Absolute Nucleated RBC 0.000 Nucleated RBC % (auto) 0.0 Sodium 148 H Potassium 4.1 Chloride 114 H Carbon Dioxide 21 L Anion Gap 17 BUN 17 H Creatinine 1.16 Estim Creat Clear Calc 55.7 Estimated GFR > 60 Random Glucose 100 Calcium 9.2 Magnesium Ur L.pneumophila Ag Not Detected 01/26/21 01/26/21 05:53 05:53 WBC 15.9 H RBC 4.27 L Hgb 13.6 L Hct 40.4 L MCV 94.6 MCH 31.9 MCHC 33.7 RDW 14.6 Plt Count 301 MPV 8.9 L Absolute Nucleated RBC 0.000 Nucleated RBC % (auto) 0.0 Sodium 144 Potassium 4.1 Chloride 112 H Carbon Dioxide 24 Anion Gap 12 BUN 13 Creatinine 1.24 Estim Creat Clear Calc 52.1 Estimated GFR 58 Random Glucose 108 Calcium 8.7 Magnesium 2.3 Ur L.pneumophila Ag Imaging Radiology Impressions: ITS Impressions Abdomen/Pelvis CT 01/18/21 15:36 IMPRESSION: There is bilateral dependent upper lobe and lower lobe bilateral pulmonary edema or contusions. In addition there is bilateral lower lobe consolidation and atelectasis and small right pleural effusion. There is focal parenchymal thickening right upper lobe adjacent to the major fissure likely atelectasis. There is a small right pleural effusion. There is extensive coronary artery, abdominal aorta and common iliac artery calcifications. There is an endotracheal tube with its tip at the GE junction and needs to be advanced by 10 cm. The endotracheal tube tip is in distal trachea in satisfactory position. There is a [place] graft extending from the left axillary artery to the left common femoral artery and a second [place] graft extending from left femoral to right femoral artery. Degenerative disc changes as discussed above. Cervical Spine CT 01/18/21 15:37 IMPRESSION: No fracture or dislocation. Degenerative changes. Chest CT 01/18/21 15:37 IMPRESSION: There is bilateral dependent upper lobe and lower lobe bilateral pulmonary edema or contusions. In addition there is bilateral lower lobe consolidation and atelectasis and small right pleural effusion. There is focal parenchymal thickening right upper lobe adjacent to the major fissure likely atelectasis. There is a small right pleural effusion. There is extensive coronary artery, abdominal aorta and common iliac artery calcifications. There is an endotracheal tube with its tip at the GE junction and needs to be advanced by 10 cm. The endotracheal tube tip is in distal trachea in satisfactory position. There is a [place] graft extending from the left axillary artery to the left common femoral artery and a second [place] graft extending from left femoral to right femoral artery. Degenerative disc changes as discussed above. Head CT 01/18/21 15:37 IMPRESSION: No acute intracranial findings. 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 Increasing sinus disease. Question polyps in the posterior nasal cavity/nasopharynx. Chest X-Ray 01/18/21 17:01 IMPRESSION: No acute intrathoracic disease. All tubes and lines in good position. Chest X-Ray 01/18/21 19:39 IMPRESSION: Endotracheal tube with its tip approximately 5 cm proximal to the viraj. Additional support lines in appropriate position as above. Possible small, layering right-sided pleural effusion, new when compared to the prior examination. Chest X-Ray 01/26/21 10:56 IMPRESSION: Support lines and catheters have been removed. The lungs are clear. Medications Medications Current Medications Amiodarone HCl (Amiodarone Hcl 200 Mg Tablet) 400 mg PO BID [facility] Last Admin: 01/26/21 10:39 Dose: 400 mg Documented by: Apixaban (Apixaban 5 Mg Tablet) 5 mg PO BID [facility] Last Admin: 01/26/21 10:26 Dose: 5 mg Documented by: Aspirin (Aspirin 81 Mg Tab.Chew) 81 mg PO DAILY [facility] Last Admin: 01/26/21 10:26 Dose: 81 mg Documented by: Atorvastatin Calcium (Atorvastatin Calcium 40 Mg Tablet) 40 mg PO BEDTIME [facility] Last Admin: 01/25/21 22:33 Dose: 40 mg Documented by: Buprenorphine/Naloxone (Buprenorphine/Naloxone 2/0.5mg Film) 1 film SUBLINGUAL DAILY [facility] Last Admin: 01/26/21 10:26 Dose: 1 film Documented by: Nafcillin Sodium 2 gm/ Sodium (Chloride) 100 mls @ 200 mls/hr IV Q6H [facility] Stop: 01/27/21 05:59 Last Admin: 01/26/21 11:49 Dose: 100 mls/hr Documented by: Levetiracetam (Levetiracetam 500 Mg Tablet) 500 mg PO BID [facility] Last Admin: 01/26/21 10:27 Dose: 500 mg Documented by: Loperamide HCl (Loperamide Hcl 2 Mg Capsule) 2 mg PO Q4H PRN PRN Reason: Diarrhea Last Admin: 01/25/21 14:43 Dose: 2 mg Documented by: Melatonin (Melatonin 3 Mg Tablet) 6 mg PO BEDTIME PRN PRN Reason: Insomnia Last Admin: 01/26/21 00:29 Dose: 6 mg Documented by: Metoprolol Tartrate (Metoprolol Tartrate 25 Mg Tablet) 25 mg PO Q6H [facility]; Protocol Last Admin: 01/26/21 10:39 Dose: 25 mg Documented by: Nicotine (Nicotine 21 Mg Patch.Td24) 21 mg TRANSDERMA DAILY [facility] Last Admin: 01/26/21 10:27 Dose: 21 mg Documented by: Omeprazole (Omeprazole 20 Mg/10 Ml Susp.Recon) 20 mg PO DAILY@0630 [facility] Last Admin: 01/26/21 06:10 Dose: 20 mg Documented by: Pharmacy Consult (Consult Rx Perform Med Rec) 1 each MISCELLANE ONCE PRN PRN Reason: Consult order Allergies Allergies Allergy/AdvReac Type Severity Reaction Status Date / Time No Known Allergies Allergy Unverified 01/12/21 01:03 Assessment & Plan Assessment & Plan (1) Opioid use disorder: Status: Acute Code(s): F11.99 - Opioid use, unspecified with unspecified opioid-induced disorder Assessment and Plan: start with suboxone 2mg QD discussed with recovery support RN, ans appt ahs been scheduled at [facility] for Friday 02/02 bridge prescription will be sent to patients pharmacy take home narcan ordered (RN has discussed it's use with patient and ) 45 mins spent coordinating care, and with patient Greater than 50% of the session was spent on counseling and/or coordination of care
--- NOTE | 2021-01-26 12:59 | P.PNIM_ITS ---
Subjective Subjective Date of Service: 01/26/21 Interval History: Seen and examined this morning Follow-up for overdose, cardiac arrests, atrial fibrillation with rapid ventricular response, pneumonia Patient has no specific complaints at this time. No chest pain, palpitations. Wants to leave the hospital against medical advice Review of Systems Review of Systems: Yes all other systems are reviewed and are negative Constitutional Constitutional: Denies chills and Denies fever(s) Cardiovascular Cardiovascular: Denies chest pain Respiratory Respiratory: Denies cough Gastrointestinal Gastrointestinal: Denies abdominal pain Physical Exam Vital Signs: Vital Signs: Last Vital Signs Temp 98.4 F 01/26/21 11:30 Pulse 72 01/26/21 11:30 Resp 18 01/26/21 11:30 BP 111/60 01/26/21 11:30 Pulse Ox 95 01/26/21 11:30 Body Mass Index 23.9 Const: General: no acute distress, alert and awake Nutritional Appearance: well nourished HENMT: Head: Yes normocephalic and Yes atraumatic Eyes: Sclerae: sclerae normal Chest: Chest palpation & inspection: normal inspection of the chest Resp: Effort & Inspection: normal respiratory effort and no respiratory distress Cardio: Rate: tachycardic Rhythm: abnormal rhythm GI: Palpation (GI): Soft to palpation and nontender Neuro: Cranial nerves: Yes CN's II-XII intact bilaterally and Yes Bilaterally intact EOM present Extrem: Other: no edema Objective Data Active Medications Amiodarone HCl (Amiodarone Hcl 200 Mg Tablet) 400 mg PO BID [facility] Last Admin: 01/26/21 10:39 Dose: 400 mg Documented by: ALEJANDRINA Apixaban (Apixaban 5 Mg Tablet) 5 mg PO BID [facility] Last Admin: 01/26/21 10:26 Dose: 5 mg Documented by: ALEJANDRINA Aspirin (Aspirin 81 Mg Tab.Chew) 81 mg PO DAILY [facility] Last Admin: 01/26/21 10:26 Dose: 81 mg Documented by: ALEJANDRINA Atorvastatin Calcium (Atorvastatin Calcium 40 Mg Tablet) 40 mg PO BEDTIME [facility] Last Admin: 01/25/21 22:33 Dose: 40 mg Documented by: SUKH Buprenorphine/Naloxone (Buprenorphine/Naloxone 2/0.5mg Film) 1 film SUBLINGUAL DAILY [facility] Last Admin: 01/26/21 10:26 Dose: 1 film Documented by: ALEJANDRINA Nafcillin Sodium 2 gm/ Sodium (Chloride) 100 mls @ 200 mls/hr IV Q6H [facility] Stop: 01/27/21 05:59 Last Infusion: 01/26/21 12:56 Dose: 0 mls/hr Documented by: ALEJANDRINA Levetiracetam (Levetiracetam 500 Mg Tablet) 500 mg PO BID [facility] Last Admin: 01/26/21 10:27 Dose: 500 mg Documented by: ALEJANDRINA Loperamide HCl (Loperamide Hcl 2 Mg Capsule) 2 mg PO Q4H PRN PRN Reason: Diarrhea Last Admin: 01/25/21 14:43 Dose: 2 mg Documented by: ALEJANDRINA Melatonin (Melatonin 3 Mg Tablet) 6 mg PO BEDTIME PRN PRN Reason: Insomnia Last Admin: 01/26/21 00:29 Dose: 6 mg Documented by: SUKH Metoprolol Tartrate (Metoprolol Tartrate 25 Mg Tablet) 25 mg PO Q6H [facility]; Prot ocol Last Admin: 01/26/21 10:39 Dose: 25 mg Documented by: ALEJANDRINA Nicotine (Nicotine 21 Mg Patch.Td24) 21 mg TRANSDERMA DAILY [facility] Last Admin: 01/26/21 10:27 Dose: 21 mg Documented by: ALEJANDRINA Omeprazole (Omeprazole 20 Mg/10 Ml Susp.Recon) 20 mg PO DAILY@0630 [facility] Last Admin: 01/26/21 06:10 Dose: 20 mg Documented by: SUKH Pharmacy Consult (Consult Rx Perform Med Rec) 1 each MISCELLANE ONCE PRN PRN Reason: Consult order Labs CBC & Chem 7: 01/26/21 05:53 01/26/21 05:53 Labs: Laboratory Results - last 24 hr 01/26/21 01/26/21 05:53 05:53 MCV 94.6 MCH 31.9 MCHC 33.7 RDW 14.6 Plt Count 301 MPV 8.9 L Absolute Nucleated RBC 0.000 Nucleated RBC % (auto) 0.0 Anion Gap 12 Estim Creat Clear Calc 52.1 Estimated GFR 58 Random Glucose 108 Calcium 8.7 Magnesium 2.3 Microbiology Microbiology Results: Microbiology 01/20/21 12:16 Blood Culture - Final Blood - Venous No growth after 5 days. 01/20/21 12:15 Blood Culture - Final Blood - Venous No growth after 5 days. Assessment and Plan (1) Atrial flutter: Status: Acute (2) Cardiomyopathy: Status: Acute (3) Opioid use disorder: Status: Acute (4) Seizure disorder: Status: Acute (5) Acute combined systolic and diastolic congestive heart failure: Status: Acute Assessment and Plan: This is a 66-year-old male with a history of atrial fibrillation on Eliquis, CAD status post CABG polysubstance abuse admitted on 01/18/2021 after witnessed seizure episode likely resulting in aspiration and possible VFib arrest, now status post therapeutic hypothermia, also with finding of 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 Extubated uneventfully on 01/22/2021 and downgraded to the medical floor 01/23/2021 course further complicated by atrial flutter/AFib with RVR Atrial flutter/AFib RVR HR uncontrolled, has been in and out of afib with RVR. In sinus rhythm at the moment Cardizem drip discontinued Started on metoprolol Continue amiodorone dose increased 01/25 Continue Eliquis Cardiology following Hypernatremia improved Follow BMP Acute respiratory failure with hypoxia requiring ventilatory support Likely component of aspiration extubated 01/22 Sputum cx growing MSSA - on nafcillin started 01/22, to finish today Blood cultures negative Combined systolic/diastolic CHF Seen by cardiology Repeat echo showing LVEF 40-45% with basal inferior, mid inferior, basal inferoseptal and basal anteroseptal segment akinesis Seizure Brain CT negative occurred in setting of drug use/cardiac arrest EEG done 01/19 limited but not showing any seizure activity Continue Keppra seizure precautions Diarrhea cdif negative likely r/t withdrawal prn immodium h/o CAD Continue aspirin, statin Polysubstance abuse seen by Addiction medicine, plan to start suboxone tobacco dependence smoking cessation advised NRT Seen and evaluated by Psychiatry. Does have capacity to make medical decisions. DVT prophylaxis-[facility] Attending physician-Dr. Black Quality Stroke Does the patient have a stroke diagnosis?: No VTE Prior VTE?: No VTE Risk Level:: Medical - moderate - high VTE Device Contraindication: N/A - Device Ordered VTE Drug Contraindication: N/A - Med Ordered
--- NOTE | 2021-01-26 13:43 | MHC.RECOVRN ---
Pt has appt at the [facility] on 02/02 at 1:30PM for intake. Pt and CM aware.
--- NOTE | 2021-01-26 14:39 | P.PNCA_ITS ---
Subjective Subjective Date of Service: 01/26/21 Interval history: Feeling better. In sinus rhythm. Physical Exam Vital Signs: Last Vital Signs Temp 98.4 F 01/26/21 11:30 Pulse 72 01/26/21 11:30 Resp 18 01/26/21 11:30 BP 111/60 01/26/21 11:30 Pulse Ox 95 01/26/21 11:30 Body Mass Index 23.9 GENERAL APPEARANCE: in no acute distress, pleasant. NECK: no carotid bruit, no jugular venous distention. SKIN: no suspicious lesions, warm and dry. HEART: no murmurs, ? regular rate and rhythm. LUNGS: clear to auscultation bilaterally. ABDOMEN: soft, nontender. EXTREMITIES: no edema. PERIPHERAL PULSES: equal. Results Labs and Meds Result diagrams: 01/26/21 05:53 01/26/21 05:53 Lab results: Laboratory Results - last 24 hr 01/26/21 01/26/21 05:53 05:53 WBC 15.9 H RBC 4.27 L Hgb 13.6 L Hct 40.4 L MCV 94.6 MCH 31.9 MCHC 33.7 RDW 14.6 Plt Count 301 MPV 8.9 L Absolute Nucleated RBC 0.000 Nucleated RBC % (auto) 0.0 Sodium 144 Potassium 4.1 Chloride 112 H Carbon Dioxide 24 Anion Gap 12 BUN 13 Creatinine 1.24 Estim Creat Clear Calc 52.1 Estimated GFR 58 Random Glucose 108 Calcium 8.7 Magnesium 2.3 Imaging Radiologist's impression: Impressions Chest X-Ray 01/26/21 10:56 IMPRESSION: Support lines and catheters have been removed. The lungs are clear. Progress Note: A&P Assessment and plan (1) Atrial flutter: Status: Acute (2) Cardiomyopathy: Status: Acute (3) Cardiac arrest: Status: Acute Assessment and Plan: 66-year-old gentleman with cardiac arrest in the setting of cocaine and heroin abuse. He was counseled not to use drugs again. Echocardiography has shown EF of 40 45%. This is mildly abnormal compared to before. He had no wall motion abnormality before due to previous LA and ischemic cardiomyopathy. Clinically euvolemic. Not in atrial flutter anymore. Continue amiodarone 400 mg twice a day and he should continue this for at least 1 more week and then can be changed to 200 mg once a day. Change metoprolol tartrate to 75 mg metoprolol succinate. If BP allows an at low-dose lisinopril. Thank you for allowing me to participate in the care of your patient. Please feel free to contact me if you have any questions. Fall Risk Details Current Medications: Current Medications Amiodarone HCl (Amiodarone Hcl 200 Mg Tablet) 400 mg PO BID [facility] Last Admin: 01/26/21 10:39 Dose: 400 mg Documented by: Apixaban (Apixaban 5 Mg Tablet) 5 mg PO BID [facility] Last Admin: 01/26/21 10:26 Dose: 5 mg Documented by: Aspirin (Aspirin 81 Mg Tab.Chew) 81 mg PO DAILY [facility] Last Admin: 01/26/21 10:26 Dose: 81 mg Documented by: Atorvastatin Calcium (Atorvastatin Calcium 40 Mg Tablet) 40 mg PO BEDTIME [facility] Last Admin: 01/25/21 22:33 Dose: 40 mg Documented by: Buprenorphine/Naloxone (Buprenorphine/Naloxone 2/0.5mg Film) 1 film SUBLINGUAL DAILY [facility] Last Admin: 01/26/21 10:26 Dose: 1 film Documented by: Nafcillin Sodium 2 gm/ Sodium (Chloride) 100 mls @ 200 mls/hr IV Q6H [facility] Stop: 01/27/21 05:59 Last Infusion: 01/26/21 12:56 Dose: Infused Documented by: Levetiracetam (Levetiracetam 500 Mg Tablet) 500 mg PO BID [facility] Last Admin: 01/26/21 10:27 Dose: 500 mg Documented by: Loperamide HCl (Loperamide Hcl 2 Mg Capsule) 2 mg PO Q4H PRN PRN Reason: Diarrhea Last Admin: 01/25/21 14:43 Dose: 2 mg Documented by: Melatonin (Melatonin 3 Mg Tablet) 6 mg PO BEDTIME PRN PRN Reason: Insomnia Last Admin: 01/26/21 00:29 Dose: 6 mg Documented by: Metoprolol Tartrate (Metoprolol Tartrate 25 Mg Tablet) 25 mg PO Q6H [facility]; Protocol Last Admin: 01/26/21 10:39 Dose: 25 mg Documented by: Nicotine (Nicotine 21 Mg Patch.Td24) 21 mg TRANSDERMA DAILY [facility] Last Admin: 01/26/21 10:27 Dose: 21 mg Documented by: Omeprazole (Omeprazole 20 Mg/10 Ml Susp.Recon) 20 mg PO DAILY@0630 [facility] Last Admin: 01/26/21 06:10 Dose: 20 mg Documented by: Pharmacy Consult (Consult Rx Perform Med Rec) 1 each MISCELLANE ONCE PRN PRN Reason: Consult order Time Spent With Patient Time: Total time spent is greater than 50% in coordination of care (as documented) at patient's floor/unit and/or counseling patient: Time with patient: 15 - 24 minutes Progress Note: Quality Stroke Does the patient have a stroke diagnosis?: No Procedures Date of Service Date of Service: 01/26/21
--- NOTE | 2021-01-26 14:42 | P.CNPS_ITS ---
History of Present Illness Date of Service: 01/26/21 Chief Complaint: WITNESSED CARDIAC ARREST Reason for Consult: capacity evaluation for medical decision making, wants to leave AMA. Requesting physician: Rowan De La Torre Discussed with referring provider: Yes Sources of Information: patient interviewed and chart reviewed HPI Narrative: Patient is a 66-year-old male who had been admitted and was in critical care intubated until earlier this week related to overdose, cardiac arrests, atrial fibrillation with rapid ventricular response, pneumonia. Richard boyd was asked to meet with patient regarding capacity evaluation, as patient is stating today he wishes to leave AMA. On interview with this underwriter mortgage loan, patient of appears to be cooperative, although so mewhat anxious and irritable. Most of the interaction was within normal limits for a mental status exam, and the patient was easily able to convey feelings. Recovery services RN was present in the room, as patient was starting Suboxone this morning. She left after several minutes, and patient was willing to meet with me. When I arrived, physician was in room, explaining to patient the risks of his choice of leaving AMA, and that he could experience another cardiac arrest, which could result in fatality. Patient reported that he understood this, and that he plans to go home today. Patient was alert and oriented x4, speech was clear, general appearance was somewhat disheveled. patient was wearing hospital garb. Eye contact was within normal limits. When asked to explain the reason he has been in the hospital, he reported ?my heart rate has not been great ?. When asked to elaborate, he stated that he knew he had been in the ICU, and that he has been having cardiac difficulties. He then reported that his medications were recently changed several days ago, and that he feels he has improved. He also reports he has a longstanding history of substance use, and was starting Suboxone this morning. He states that he feels confident regarding his ability to abstain from substanc es going forward. When asked if he understood exactly what choosing to refuse staying in the hospi andre in receiving further treatment could result in, he stated that he wishes to go home today, he stated that he understands the risk that he could experience another serious cardiac event and it could be fatal, but that ?I think my heart is going to be fine, and I plan to go home anyway . He then stated ?I am not concerned at all about dying ?. When asked if he was having thoughts of wishing to , he stated no that he does not have any thoughts of self-harm in any way, but that he honestly believes that he is going to be fine. He stated that he plans to abstain from drugs, and that he plans to rest at home. He was able to quantify exactly how much money per week he spends on illegal substances, and that with abstinence how much money he will save each month, in which she plans to use to purchase a horse. [place] He states that having a horse to care for has helped him maintain his sobriety in the past. He states he knows where the local AA meetings are, and that he plans to start going to meetings again once he is healthy enough to go. It was explained that he had experienced a cardiac arrest, that he overdosed, and was given Narcan. It was also explained that he continues to display atrial flutter, and by refusing treatment, he could . He was asked to explain in his own words exactly what is happening medically, and the risks of leaving AMA. He was able to take in this information, process it in a meaningful way, and in his own words then explain the risks involved, and state that he is STILL yue nning to leave AMA, today. He stated that he is tired of being in the hospital, and believes he has already been through the worst of it , and that he wishes to continue recuperating at home. His decision making is not in any way affected by any depression or psychosis. He also does not appear to be under the influence of any substances / drugs. The RN entered the room to administer meds. She asked him if he would allow her to place the leads for the monitor back on, and he agreed. She asked him if he would go for the x-ray that was ordered for his lungs, and he agreed. This underwriter mortgage loan asked that he call his to discuss his decision before leaving, and to hear her concerns. He stated that he would. At this time, patient appears to have capacity for decision making, as he is able to express the severity of current health situation, and the risk involved of leaving AMA, and not staying to continue treatment and monitoring at this time. However, this is fluid, and could change in the future. Past Psychiatric History: Patient denies any psychiatric diagnosis he has history, denies any type of past treatment including counseling, PHP, inpatient stays, medications. Patient does have history of substance use disorder, reports active participation in 12 step programs at 1 time, although not current. Medical Evaluation Reviewed: Yes Personal & Social History: Patient currently lives at home with his . Review of Systems Review of Systems A full review of systems was completed and was negative with the exception of pertinent positives noted in history of the presenting illness (HPI). [facility] Medical History Atrial fibrillation CAD (coronary artery disease) CHF (congestive heart failure) Cocaine abuse with intoxication COPD (chronic obstructive pulmonary disease) Drug abuse 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 Heroin use Hyperlipemia Paroxysmal atrial fibrillation PVD (peripheral vascular disease) Toxic encephalopathy Surgical History S/P CABG x 2 Social History: Lives with in home. Substance History: Extensive substance use history with periods of sobriety. Diagnostics Vital Signs (24Hr): Vital Signs - 24 hr 01/25/21 15:30 01/25/21 18:52 01/25/21 19:32 Temperature 98.9 F 98.9 F Pulse Rate 104 H 80 Respiratory Rate 18 19 Blood Pressure 134/86 110/65 95/53 L Pulse Oximetry 98 98 01/25/21 19:38 01/25/21 22:33 01/26/21 00:00 Temperature 97.9 F Pulse Rate 64 80 78 Respiratory Rate 18 Blood Pressure 100/55 L 99/54 L Pulse Oximetry 96 01/26/21 01:38 01/26/21 03:48 01/26/21 07:58 Temperature 98.5 F 98.6 F Pulse Rate 102 H 62 71 Respiratory Rate 18 20 Blood Pressure 104/72 114/53 L 96/58 L Pulse Oximetry 95 94 01/26/21 10:39 01/26/21 10:45 01/26/21 11:30 Temperature 98.4 F Pulse Rate 72 Respiratory Rate 18 Blood Pressure 148/66 H 148/66 H 111/60 Pulse Oximetry 95 Body Mass Index 23.9 Labs Results: 01/26/21 05:53 01/26/21 05:53 Labs: Laboratory Results - last 48 hr 01/25/21 01/25/21 01/26/21 05:50 05:50 05:53 WBC 14.8 H 15.9 H RBC 4.57 L 4.27 L Hgb 14.4 13.6 L Hct 43.3 40.4 L MCV 94.7 94.6 MCH 31.5 31.9 MCHC 33.3 33.7 RDW 14.6 14.6 Plt Count 283 301 MPV 9.2 L 8.9 L Absolute Nucleated RBC 0.000 0.000 Nucleated RBC % (auto) 0.0 0.0 Sodium 148 H Potassium 4.1 Chloride 114 H Carbon Dioxide 21 L Anion Gap 17 BUN 17 H Creatinine 1.16 Estim Creat Clear Calc 55.7 Estimated GFR > 60 Random Glucose 100 Calcium 9.2 Magnesium 01/26/21 05:53 WBC RBC Hgb Hct MCV MCH MCHC RDW Plt Count MPV Absolute Nucleated RBC Nucleated RBC % (auto) Sodium 144 Potassium 4.1 Chloride 112 H Carbon Dioxide 24 Anion Gap 12 BUN 13 Creatinine 1.24 Estim Creat Clear Calc 52.1 Estimated GFR 58 Random Glucose 108 Calcium 8.7 Magnesium 2.3 Imaging Radiology Impressions: ITS Impressions Abdomen/Pelvis CT 01/18/21 15:36 IMPRESSION: There is bilateral dependent upper lobe and lower lobe bilateral pulmonary edema or contusions. In addition there is bilateral lower lobe consolidation and atelectasis and small right pleural effusion. There is focal parenchymal thickening right upper lobe adjacent to the major fissure likely atelectasis. There is a small right pleural effusion. There is extensive coronary artery, abdominal aorta and common iliac artery calcifications. There is an endotracheal tube with its tip at the GE junction and needs to be advanced by 10 cm. The endotracheal tube tip is in distal trachea in satisfactory position. There is a [place] graft extending from the left axillary artery to the left common femoral artery and a second [place] graft extending from left femoral to right femoral artery. Degenerative disc changes as discussed above. Cervical Spine CT 01/18/21 15:37 IMPRESSION: No fracture or dislocation. Degenerative changes. Chest CT 01/18/21 15:37 IMPRESSION: There is bilateral dependent upper lobe and lower lobe bilateral pulmonary edema or contusions. In addition there is bilateral lower lobe consolidation and atelectasis and small right pleural effusion. There is focal parenchymal thickening right upper lobe adjacent to the major fissure likely atelectasis. There is a small right pleural effusion. There is extensive coronary artery, abdominal aorta and common iliac artery calcifications. There is an endotracheal tube with its tip at the GE junction and needs to be advanced by 10 cm. The endotracheal tube tip is in distal trachea in satisfactory position. There is a [place] graft extending from the left axillary artery to the left common femoral artery and a second [place] graft extending from left femoral to right femoral artery. Degenerative disc changes as discussed above. Head CT 01/18/21 15:37 IMPRESSION: No acute intracranial findings. 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 Increasing sinus disease. Question polyps in the posterior nasal cavity/nasopharynx. Chest X-Ray 01/18/21 17:01 IMPRESSION: No acute intrathoracic disease. All tubes and lines in good position. Chest X-Ray 01/18/21 19:39 IMPRESSION: Endotracheal tube with its tip approximately 5 cm proximal to the viraj. Additional support lines in appropriate position as above. Possible small, layering right-sided pleural effusion, new when compared to the prior examination. Chest X-Ray 01/26/21 10:56 IMPRESSION: Support lines and catheters have been removed. The lungs are clear. Mental Status Exam Mental Status Exam Narrative: Well-developed although thin male, in NAD. Appears stated age. Somewhat unkempt. Dressed in hospital garb, resting in bed. Alert and oriented x4. Appropriate and cooperative during encounter. Reports mood as ?normal ?. Affect some lability, some agitation. thought content appears normal, future oriented. No type of delusions or hallucinations reported, nor observed. Speech clear, unimpaired. Thought process and association appear linear, goal directed. Patient denies any type of thoughts of harm to self or others. Overall patient appears to be reliable historian. Judgment and insight fair. Ambulation was not observed. Medications Medications Current Medications Amiodarone HCl (Amiodarone Hcl 200 Mg Tablet) 400 mg PO BID [facility] Last Admin: 01/26/21 10:39 Dose: 400 mg Documented by: Apixaban (Apixaban 5 Mg Tablet) 5 mg PO BID [facility] Last Admin: 01/26/21 10:26 Dose: 5 mg Documented by: Aspirin (Aspirin 81 Mg Tab.Chew) 81 mg PO DAILY [facility] Last Admin: 01/26/21 10:26 Dose: 81 mg Documented by: Atorvastatin Calcium (Atorvastatin Calcium 40 Mg Tablet) 40 mg PO BEDTIME [facility] Last Admin: 01/25/21 22:33 Dose: 40 mg Documented by: Buprenorphine/Naloxone (Buprenorphine/Naloxone 2/0.5mg Film) 1 film SUBLINGUAL DAILY [facility] Last Admin: 01/26/21 10:26 Dose: 1 film Documented by: Nafcillin Sodium 2 gm/ Sodium (Chloride) 100 mls @ 200 mls/hr IV Q6H [facility] Stop: 01/27/21 05:59 Last Infusion: 01/26/21 12:56 Dose: Infused Documented by: Levetiracetam (Levetiracetam 500 Mg Tablet) 500 mg PO BID [facility] Last Admin: 01/26/21 10:27 Dose: 500 mg Documented by: Loperamide HCl (Loperamide Hcl 2 Mg Capsule) 2 mg PO Q4H PRN PRN Reason: Diarrhea Last Admin: 01/25/21 14:43 Dose: 2 mg Documented by: Melatonin (Melatonin 3 Mg Tablet) 6 mg PO BEDTIME PRN PRN Reason: Insomnia Last Admin: 01/26/21 00:29 Dose: 6 mg Documented by: Metoprolol Succinate (Metoprolol Succinate Er 25 Mg Tab.Er.24h) 75 mg PO DAILY [facility]; Protocol Nicotine (Nicotine 21 Mg Patch.Td24) 21 mg TRANSDERMA DAILY [facility] Last Admin: 01/26/21 10:27 Dose: 21 mg Documented by: Omeprazole (Omeprazole 20 Mg/10 Ml Susp.Recon) 20 mg PO DAILY@0630 [facility] Last Admin: 01/26/21 06:10 Dose: 20 mg Documented by: Pharmacy Consult (Consult Rx Perform Med Rec) 1 each MISCELLANE ONCE PRN PRN Reason: Consult order Allergies Allergies Allergy/AdvReac Type Severity Reaction Status Date / Time No Known Allergies Allergy Unverified 01/12/21 01:03 Assessment & Plan Assessment & Plan (1) Encounter for competency evaluation: Status: Acute Code(s): Z02.79 - Encounter for issue of other medical certificate Assessment and Plan: Patient appeared to receive, retain, and integrate information regarding his serious health condition. At this time he appears to have capacity for medical decision making. Patient was encouraged to call his and discuss decision to leave AMA prior to leaving. He was encouraged to listen to her point of view and to consider this in his decision making. He stated that he would do so. Assessment and Plan: 1.At this time he appears to have capacity for medical decision making. This has been shared with Rowan De La Torre, via secure electronic message in system. Thank you for this consultation. If you have any further questions or concerns, please do not hesitate to contact Psychiatry Service. Greater than 50% of the session was spent on counseling and/or coordination of care Patient educated on: diagnosis, medication risk/benefits, substance abuse and medical condition Informed Consent: understands
[2021-01-26] MEDS: Atorvastatin Calcium 40 MG TABLET PO (22:30)
[2021-01-27] MEDS: Nafcillin Sodium 2 GM in 0.9 % Sodium Chloride 100 ML IV ×2 (00:35→05:52)
[2021-01-27] MEDS: Melatonin 3 MG TABLET 6 MG PO (02:56)
[2021-01-27 03:04] VITALS: BP 93/56; PULSE 83; RESP 18; TEMP 36.8; O2SAT 98
[2021-01-27 06:00] VITALS: BMI 21.9
[2021-01-27 07:35] VITALS: BP 117/68; PULSE 67; RESP 18; TEMP 36.7; O2SAT 97
--- NOTE | 2021-01-27 07:48 | PM.DS ---
DS: Providers Provider Date of Service: 01/27/21 <Nini Villegas NP - Last Filed: 01/27/21 08:02> Date of admission: 01/18/21 17:25 <Nini Villegas NP - Last Filed: 01/27/21 08:02> Primary care physician: Karla Seo NP <Nini Villegas NP - Last Filed: 01/27/21 08:02> Consults: 01/20/21 11:53 Consult to Infectious Diseases Routine Consulting Provider: Ebony Darling Reason for consultation: Possible aspiration pna Has provider been notified: Yes 01/23/21 11:32 Consult to Cardiology Routine Consulting Provider: [facility] Reason for consultation: newly reduced EF Has provider been notified: No 01/24/21 12:57 Addiction Medicine Routine Consulting Provider: Lynette Tristan Reason for consultation: Polysubstance abuse, OD Has provider been notified: No 01/26/21 09:59 Consult to Psychiatry Routine Consulting Provider: [facility] Reason for consultation: capacity eval; wants to leave AMA Has provider been notified: No <Nnii Villegas NP - Last Filed: 01/27/21 08:02> Attending physician on discharge: Arthur Berg <Nini Villegas NP - Last Filed: 01/27/21 08:02> Discharging clinician: Nini Villegas <Nini Villegas NP - Last Filed: 01/27/21 08:02> DS: Diagnosis Discharge Diagnosis (1) Cardiac arrest: (2) Cardiomyopathy: Status: Acute <Nini Villegas NP - Last Filed: 01/27/21 08:02> (3) Atrial flutter: Status: Acute <Nini Villegas NP - Last Filed: 01/27/21 08:02> (4) Aspiration pneumonitis: Status: Resolved <Nini Villegas NP - Last Filed: 01/27/21 08:02> (5) Seizure disorder: Status: Acute <Nini Villegas NP - Last Filed: 01/27/21 08:02> (6) Opioid use disorder: Status: Acute <Nini Villegas NP - Last Filed: 01/27/21 08:02> DS: Summary Hospital Course Hospital Course: HP as per admitting provider Chief Complaint: Witnessed syncope/pulseless/shockable rhythm 65-year-old male known polysubstance abuser midline sternotomy scar consistent with be previous coronary bypass grafting witnessed loss of consciousness EMS arrived and found the a shock a below rhythm which was done they claimed that he appeared to be pulseless-he had a respiratory mechanism with with very deep inspiratory and expiratory effort and a nystagmoid like movement that appear to represent status epilepticus but he was rapidly paralyzed for intubation and with his acute severe hypertension and tachycardia in other words a hyper sympathetic state I feared nonconvulsive status epilepticus and I gave him an additional 4 mg of IV Versed and blood pressure came down to 176 and I loaded him with IV Keppra 1 g and he seemed to settle down breathing synchronously with the ventilator requiring high FiO2 and to alleviate any congestion because bedside echo demonstrated severe global left ventricular dysfunction with ejection fraction in the mid 20s at best I felt slowing his heart rate with IV Cardizem would be the best option for D congestion and that seemed to work successfully increasing his AV blockade heart rate reduced 80 and when he became hypotensive I stopped the peep removed the propofol and used to IV Versed as his mechanism of sedation and with that he was brought to the intensive care unit and placed on a targeted hypothermia regimen to bring his temperature down to 35? centigrade . UNFORTUNATELY PATIENT DECIDED TO LEAVE AGAINST MEDICAL ADVICE PRIOR TO COMPLETING HIS TREATMENT This is a 66-year-old male with a history of atrial fibrillation on Eliquis, CAD status post CABG polysubstance abuse admitted on 01/18/2021 after witnessed seizure episode likely resulting in aspiration and possible VFib arrest, now status post therapeutic hypothermia, also with finding of 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 Extubated uneventfully on 01/22/2021 and downgraded to the medical floor 01/23/2021 course further complicated by atrial flutter/AFib with RVR Atrial flutter/AFib RVR HR with somewhat better control. Has been in and out of afib with RVR.? In sinus rhythm at the moment Cardizem drip discontinued Started on metoprolol, amiodorone dose increased 01/25 Continue Eliquis seen and evaluated by Cardiology Hypernatremia improved Acute respiratory failure with hypoxia requiring ventilatory support initially in the ICU Likely component of aspiration extubated 01/22 Sputum cx growing MSSA - on nafcillin started 01/22-01/26 Blood cultures negative Combined systolic/diastolic CHF Seen by cardiology Repeat echo showing LVEF 40-45% with basal inferior, mid inferior, basal inferoseptal and basal anteroseptal segment akinesis Seizure Brain CT negative occurred in setting of drug use/cardiac arrest EEG done 01/19 limited but not showing any seizure activity Continue Keppra Polysubstance abuse seen by Addiction medicine, plan to start suboxone Seen and evaluated by Psychiatry.? Does have capacity to make medical decisions. <Nini Villegas NP - Last Filed: 01/27/21 08:02> Time Spent with Patient Time attestation: Total time spent providing and/or coordinating discharge services: <Nini Villegas NP - Last Filed: 01/27/21 08:02> Discharge coordination time: Less than 30 minutes <Nini Villegas NP - Last Filed: 01/27/21 08:02> Quality: Stroke Does the patient have a stroke diagnosis?: No <Nini Villegas NP - Last Filed: 01/27/21 08:02> Physical Exam Vital Signs: Vital Signs: Last Vital Signs Temp 98.1 F 01/27/21 07:35 Pulse 67 01/27/21 07:35 Resp 18 01/27/21 07:35 BP 117/68 01/27/21 07:35 Pulse Ox 97 01/27/21 07:35 Body Mass Index 21.9 <Nini Villegas NP - Last Filed: 01/27/21 08:02> unable to assess as patient left against medical advice <Nini Villegas NP - Last Filed: 01/27/21 08:02> Discharge Plan Discharge Anticipated Discharge Date/Time: 01/27/21 07:54 <Nini Villegas NP - Last Filed: 01/27/21 08:02> Patient Disposition: Left Against Medical Advice <Nini Villegas NP - Last Filed: 01/27/21 08:02> Discharge Diagnosis: Cardiac arrest from opiate overdose Atrial fibrillation/ atrial flutter Acute respiratory failure with hypoxia requiring mechanical ventilation Combined systolic/ diastolic congestive heart failure Seizure Polysubstance abuse <Nini Villegas NP - Last Filed: 01/27/21 08:02> Cardiac arrest from opiate overdose Atrial fibrillation/ atrial flutter Acute respiratory failure with hypoxia requiring mechanical ventilation Combined systolic/ diastolic congestive heart failure Seizure Polysubstance abuse <Arthur Mlapah, MD - Last Filed: 02/09/21 15:49> Referrals: Karla Seo, [employer] 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 HELPER [Primary Care Provider] - 1 Week Lynette Tristan CNP [Nurse Practitioner] - 1 Week (Suboxone ) <Nini Villegas NP - Last Filed: 01/27/21 08:02> Discharge Medications: New amiodarone 200 mg Tablet 400 mg PO BID Qty: 120 RF: 0 levetiracetam 500 mg Tablet 500 mg PO BID Qty: 60 RF: 0 metoprolol succinate 25 mg Tablet Extended Release 24 Hr 75 mg PO DAILY Qty: 90 RF: 0 Narcan 4 mg/actuation spray,non-aerosol 4 mg intranasal Q2M Qty: 2 RF: 0 Continued pentoxifylline 400 mg tablet extended release 1 tab PO BID RF: 0 atorvastatin 40 mg tablet 40 mg PO BEDTIME RF: 0 clonidine HCl 0.1 mg tablet 0.1 mg PO BID RF: 0 nitroglycerin 0.4 mg tablet, sublingual 0.4 mg sublingual NEEDED RF: 0 omeprazole 20 mg capsule,delayed release(DR/EC) 20 mg PO DAILY RF: 0 metoprolol tartrate 25 mg tablet 25 mg PO BID RF: 0 Eliquis 5 mg tablet 5 mg PO BID RF: 0 aspirin 81 mg Tablet 81 mg PO DAILY RF: 0 No Action buprenorphine-naloxone [Suboxone] 2-0.5 mg film 1 film buccal DAILY Qty: 4 RF: 0 <Nini Villegas NP - Last Filed: 01/27/21 08:02> Discharge Orders: Discharge Order (Routine); Ordered 01/27/21 Ordered By: Nini Villegas <Nini Villegas NP - Last Filed: 01/27/21 08:02> Diet: advance to usual diet <Nini Villegas NP - Last Filed: 01/27/21 08:02> advance to usual diet <Arthur Berg MD - Last Filed: 02/09/21 15:49> Activity on Discharge: As tolerated <Nini Villegas NP - Last Filed: 01/27/21 08:02> As tolerated <Arthur Berg MD - Last Filed: 02/09/21 15:49> Care Plan Goals: left against medical advice <Nini Villegas NP - Last Filed: 01/27/21 08:02> Health Concerns: Cardiac arrest from opiate overdose Atrial fibrillation/ atrial flutter Acute respiratory failure with hypoxia requiring mechanical ventilation Combined systolic/ diastolic congestive heart failure Seizure Polysubstance abuse <Nini Villegas NP - Last Filed: 01/27/21 08:02> Plan of Treatment: Unfortunately the patient left against medical advice prior to completing treatment, will send any medications that or new for need to be continued to his pharmacy Suboxone 2mg QD scheduled at [facility] for Friday 02/02 bridge prescription will be sent to patients pharmacy take home narcan ordered Seen and evaluated by psychiatry and was found to have capacity to make his own medical decisions <Nini Villegas NP - Last Filed: 01/27/21 08:02> Assessment: see discharge summary I saw patient and discssed finding and plan with [employer] 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 HELPER and I agree witht the above <Nini Villegas NP - Last Filed: 01/27/21 08:02> Discharge Date/Time: 01/27/21 08:47 <Nini Villegas NP - Last Filed: 01/27/21 08:02>
== END 2021-01-27 08:47 | disposition left against medical advice (07) | DRG 917 ==
LOC: HO.ED 17:01 → HO.EDOVER 18:38 → HO.ICU 18:40 → HO.IMC 01-23 13:48
PROVIDERS: Internal Medicine Pulmonary Disease; Physician Assistant; Physician Assistant Medical; Admitting Provider Internal Medicine Cardiovascular Disease; Emergency Provider Emergency Medicine; PCP Nurse Practitioner Adult Health; Visit Provider Nurse Practitioner Acute Care
DX: T40.601A Poisoning by unspecified narcotics, accidental (unintentional), initial encounter (principal); G92 Toxic encephalopathy; I50.41 Acute combined systolic (congestive) and diastolic (congestive) heart failure; J96.01 Acute respiratory failure with hypoxia; I46.9 Cardiac arrest, cause unspecified; J69.0 Pneumonitis due to inhalation of food and vomit; E87.0 Hyperosmolality and hypernatremia; Y92.9 Unspecified place or not applicable; I25.10 Atherosclerotic heart disease of native coronary artery without angina pectoris; Z95.1 Presence of aortocoronary bypass graft; I48.0 Paroxysmal atrial fibrillation; I25.5 Ischemic cardiomyopathy; F14.129 Cocaine abuse with intoxication, unspecified; R19.7 Diarrhea, unspecified; G40.901 Epilepsy, unspecified, not intractable, with status epilepticus; E78.5 Hyperlipidemia, unspecified; F17.210 Nicotine dependence, cigarettes, uncomplicated; Z20.822 Contact with and (suspected) exposure to COVID-19; Z71.6 Tobacco abuse counseling; Z79.01 Long term (current) use of anticoagulants; Z79.82 Long term (current) use of aspirin; Z79.899 Other long term (current) drug therapy; Z66 Do not resuscitate
CPT/HCPCS: 36415; 70450; 71045; 71046; 71250; 72125; 74176; 80048; 80053; 80076; 80307; 81001; 82040; 82077; 82550; 82803; 82947; 83605; 83735; 83880; 84100; 84443; 84484; 85025; 85027; 85610; 85730; 86850; 86900; 86901; 87040; 87070; 87077; 87086; 87186; 87205; 87389; 87449; 87493; 87635; 87640; 87641; 93005; 93308; 94002; 94003; 94640; 95816; 96365; 96367; 96375; 96376; 99285; 99291; C1758; J0282; J1940; J1953; J2150; J2185; J2250; J2370; J2543; J3010; J3370; J3475; Q0163

== ENCOUNTER 2021-02-20 22:34 | Emergency (ER) | payer MEDICARE, SELFPAY ==
[2021-02-20 23:03] VITALS: BP 92/61; PULSE 50; RESP 14; O2SAT 93; O2SAT 95; BMI 26.5
--- NOTE | 2021-02-20 23:21 | ED_ITS ---
HPI - General Adult General Chief complaint: ETOH/Substance Use Stated complaint: drug use and etoh Time Seen by Provider: 02/20/21 23:14 Source: RN notes reviewed Mode of arrival: EMS Limitations: other (Altered secondary to opiate use) History of Present Illness HPI narrative: 66-year-old male who presents emergency department for evaluation of altered mental status. The nursing notes state that the patient's snorted heroin today and was found altered by his . His called 911 and the patient was transported to the emergency department. At the time my evaluation the patient is awake but is staring off into space, he did tell me his name, he does not answer questions, he does not appear to be in respiratory distress. The patient appears to be intoxicated. Related Data Home Medications Medication Instructions Recorded Confirmed apixaban 5 mg tablet (Eliquis) 5 mg PO BID 01/12/21 01/18/21 aspirin 81 mg tablet 81 mg PO DAILY 01/12/21 01/18/21 atorvastatin 40 mg tablet 40 mg PO BEDTIME 01/12/21 01/18/21 clonidine HCl 0.1 mg tablet 0.1 mg PO BID 01/12/21 01/18/21 metoprolol tartrate 25 mg tablet 25 mg PO BID 01/12/21 01/18/21 nitroglycerin 0.4 mg sublingual 0.4 mg SUBLINGUAL NEEDED 01/12/21 01/18/21 tablet omeprazole 20 mg capsule,delayed 20 mg PO DAILY 01/12/21 01/18/21 release pentoxifylline 400 mg 1 tab PO BID 01/18/21 01/18/21 tablet,extended release Previous Rx's Medication Instructions Recorded amiodarone 200 mg tablet 400 mg PO BID #120 tab 01/27/21 levetiracetam 500 mg tablet 500 mg PO BID #60 tab 01/27/21 metoprolol succinate 25 mg 75 mg PO DAILY #90 tab 01/27/21 tablet,extended release 24 hr buprenorphine 2 mg-naloxone 0.5 mg 1 film BUCCAL DAILY #4 ea 02/02/21 sublingual film (Suboxone) Allergies Allergy/AdvReac Type Severity Reaction Status Date / Time No Known Allergies Allergy Unverified 01/12/21 01:03 Review of Systems Review of Systems: Yes Unobtainable due to mental status PMFSH Past Medical History Medical History Atrial fibrillation Atrial flutter CAD (coronary artery disease) Cardiac arrest CHF (congestive heart failure) Cocaine abuse with intoxication COPD (chronic obstructive pulmonary disease) Coronary bypass graft mechanical complication Drug abuse 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 Heroin use Hyperlipemia Paroxysmal atrial fibrillation PVD (peripheral vascular disease) Seizure-like activity Toxic encephalopathy Surgical History S/P CABG x 2 Social History Social History Household Members: Unknown / Unable to assess Housing: Unknown / Unable to assess Unable to assess alcohol history related to: Unable to respond Alcohol intake: former Patient Tobacco Use Status: Current everyday Tobacco user Tobacco use type: Cigarette Cigarettes Per Day: 5 e-Cigarette/Vaping Use: Never Used Use of substances other than those prescribed or required for medical reasons: Yes Substance Use Type: Heroin Substance Use Frequency: Daily Last Used Substance: Just Prior to Admission Advance Directives: Yes Advance Directives on File: Yes Advance Directives Date on File: 01/12/21 service: No Current occupational status: retired Physical Exam Vital Signs: Vital Signs: Last Vital Signs Pulse 51 02/21/21 03:41 Resp 16 02/21/21 05:18 BP 107/54 L 02/21/21 03:41 Pulse Ox 96 02/21/21 03:41 Body Mass Index 26.5 Const: Other: Oriented to person, appears to be intoxicated, does not answer questions. Does not appear to be in respiratory distress. HENMT: Head: Yes normal to inspection, Yes normocephalic and Yes atraumatic Ears: external ears normal General nose exam: Normal external nose present Face and sinus: Yes normal facial exam Mouth: Normal oral and palatal mucosa present Throat: Yes posterior oropharynx normal Eyes: General: appearance normal, both eyes and all related structures Neck: Neck: Yes normal visual inspection, Yes no lymphadenopathy, Yes trachea midline and Yes supple Chest: Chest palpation & inspection: normal inspection of the chest and normal palpation of entire chest wall Resp: Effort & Inspection: normal respiratory effort and able to speak in complete sentences Auscultation: clear to auscultation bilaterally Cardio: Rate: regular rate Rhythm: regular rhythm Heart sounds: S1 normal heart sound present, S2 normal heart sound present and no murmurs GI: Inspection: Yes normal to inspection Palpation (GI): Soft to palpation, nontender and no guarding Auscultation: normal bowel sounds : General: Yes no CVA tenderness Back/Spine/Pelvis: Back: no CVA tenderness Skin: General skin exam: no rashes or lesions noted Neuro: Other: The patient is altered and appears to be intoxicated, he was oriented to person, he does not answer questions secondary to his intoxication, does move all extremities symmetrically. Extrem: General: Yes normal to inspection Psych: Other: Patient appears to be intoxicated oriented to person only, does not answer questions. Course Course Course Narrative: 66-year-old male with a known history of polysubstance abuse (opiates and cocaine) who reportedly snorted heroin and was found altered by his with an called 911. The patient's vital signs were unremarkable. Physical examination is consistent with acute intoxication. I did order cardiac and pulse oximetry monitoring. I also order laboratory evaluation includes CBC, CMP, blood alcohol level, urine drug screen. 0521: The patient's CBC was unremarkable. CMP was unremarkable. Give us a urine sample therefore urine tox screen was unobtainable. Patient's alcohol level was below detectable limits. The patient appears to be sober and awake. The patient will be discharged home in the care of his . Medical Decision Making Lab Data Result diagrams: 02/21/21 03:09 02/21/21 03:09 Labs: Lab Results 02/21/21 02/21/21 02/21/21 Range/Units 03:09 03:09 03:09 WBC 12.7 H (4.8-10.8) X10*3/uL RBC 4.10 L (4.60-5.80) X10*6/uL Hgb 12.8 L (14.0-18.0) g/dl Hct 38.8 L (42-52) % MCV 94.6 (80-98) fL MCH 31.2 (27.0-33.0) pg MCHC 33.0 (31.0-36.0) g/dl RDW 14.9 (11.0-16.0) % Plt Count 173 D (160-400) X10*3/uL MPV 9.2 L (9.4-12.4) fL Immature Gran % (Auto) 0.3 (0.0-0.4) % Neut % (Auto) 52.8 (45-73) % Lymph % (Auto) 29.0 (20-40) % Arthur % (Auto) 9.6 (2-11) % Eos % (Auto) 7.6 H (0-4) % Baso % (Auto) 0.7 (0-2) % Lymph # (Auto) 3.7 (1.2-4.9) X10*3/uL Arthur # (Auto) 1.2 (0.1-1.2) X10*3/uL Eos # (Auto) 1.0 H (0.0-0.4) X10*3/uL Baso # (Auto) 0.1 (0.0-0.2) X10*3/uL Abs Immat Gran (auto) 0.04 H (0.00-0.03) X10*3/uL Absolute Neuts (auto) 6.7 (2.0-8.3) X10*3/uL Absolute Nucleated RBC 0.000 (0.0-0.012) X10*3/uL Nucleated RBC % (auto) 0.0 (0.0-0.2) /100WBC Sodium 137 (135-145) mmol/L Potassium 4.8 (3.3-5.1) mmol/L Chloride 105 (96-108) mmol/L Carbon Dioxide 22 (22-29) mmol/L Anion Gap 15 (12-20) BUN 8 L (9-16) mg/dL Creatinine 1.04 (0.5-1.4) mg/dL Estim Creat Clear Calc 55.4 Estimated GFR > 60 Random Glucose 92 (60-115) mg/dL Calcium 8.6 (8.4-10.2) mg/dL Total Bilirubin 0.4 (0.0-1.0) mg/dL AST 22 (5-37) U/L ALT 23 (0-40) U/L Alkaline Phosphatase 113 D (39-117) U/L Total Protein 6.9 (6.5-8.0) g/dL Albumin 4.0 (3.5-5.0) g/dL Ethyl Alcohol < 10 mg/dL Discharge Plan Discharge Clinical Impression: Opiate or related narcotic overdose, Opiate use Patient Disposition: Home, Self-Care Instructions: Narcotic Use Disorder (ED) Additional Instructions: You need to get counseling to help you stop using opiates. Opiate use is dangerous since most of the drugs that you by on the street contain fentanyl which can lead to . Your are being discharged home with intranasal Narcan. If you are going to continue to use heroin, you should make sure that there is a sober person with you that is not using drugs and that this person can administer intranasal Narcan in the event that you stop breathing. Follow-up with your doctor in 2 days. Please return to the emergency department if your symptoms get worse or if you develop any symptoms that are concerning to you. Prescriptions: No Action buprenorphine-naloxone [Suboxone] 2-0.5 mg film 1 film buccal DAILY Qty: 4 RF: 0 pentoxifylline 400 mg tablet extended release 1 tab PO BID RF: 0 amiodarone 200 mg Tablet 400 mg PO BID Qty: 120 RF: 0 levetiracetam 500 mg Tablet 500 mg PO BID Qty: 60 RF: 0 metoprolol succinate 25 mg Tablet Extended Release 24 Hr 75 mg PO DAILY Qty: 90 RF: 0 atorvastatin 40 mg tablet 40 mg PO BEDTIME RF: 0 clonidine HCl 0.1 mg tablet 0.1 mg PO BID RF: 0 nitroglycerin 0.4 mg tablet, sublingual 0.4 mg sublingual NEEDED RF: 0 omeprazole 20 mg capsule,delayed release(DR/EC) 20 mg PO DAILY RF: 0 metoprolol tartrate 25 mg tablet 25 mg PO BID RF: 0 Eliquis 5 mg tablet 5 mg PO BID RF: 0 aspirin 81 mg Tablet 81 mg PO DAILY RF: 0
--- NOTE | 2021-02-21 01:07 | PC.NURSE ---
pt sleeping at this time. pt on monitor.
--- NOTE | 2021-02-21 01:31 | PC.NURSE ---
pt woken up and able to respond appropriately. pt able to follow commands.
[2021-02-21 01:40] VITALS: BP 111/55; PULSE 46; RESP 14; O2SAT 100
--- NOTE | 2021-02-21 01:54 | PC.NURSE ---
Pt ambulated to bathroom with steady gait. pt in the bathroom needed verbal reminder on what to do next. pt slow to respond and in a daze. pt does follow commands and has a quick steady stride. unable to collect urine at this time, pt states he doesnt have the need to void. water ran to assist him.
[2021-02-21 03:13] LABS: Basophils Absolute Auto 0.1 X10*3/uL (0.0-0.2); Basophils Percent Auto 0.7 % (0-2); Eosinophils Percent Auto 7.6 % (0-4); Hematocrit 38.8 % (42-52); Hemoglobin 12.8 g/dl (14.0-18.0); Imm Gran Abs Auto 0.04 X10*3/uL (0.00-0.03); Imm Gran Pct Auto 0.3 % (0.0-0.4); Lymphocytes Absolute Auto 3.7 X10*3/uL (1.2-4.9); MANUAL DIFF FLAG NO; Mean Corpuscular Hemoglobin 31.2 pg (27.0-33.0); Mean Corpuscular Volume 94.6 fL (80-98); Mean Platelet Volume 9.2 fL (9.4-12.4); Monocytes Absolute Auto 1.2 X10*3/uL (0.1-1.2); Monocytes Percent Auto 9.6 % (2-11); Neutrophils Absolute Auto 6.7 X10*3/uL (2.0-8.3); Neutrophils Percent Auto 52.8 % (45-73); Platelet Count 173 X10*3/uL (160-400); Red Cell Distribution Width 14.9 % (11.0-16.0); White Blood Count 12.7 X10*3/uL (4.8-10.8)
[2021-02-21 03:41] VITALS: BP 107/54; PULSE 51; RESP 20; O2SAT 96
[2021-02-21 03:45] LABS: Ethanol < 10 mg/dL
[2021-02-21 03:46] LABS: Alanine Aminotransferase 23 U/L (0-40); Alkaline Phosphatase 113 U/L (39-117); Anion Gap 15 (12-20); Aspartate Amino Transferase 22 U/L (5-37); Bilirubin Total 0.4 mg/dL (0.0-1.0); Blood Urea Nitrogen 8 mg/dL (9-16); Calcium 8.6 mg/dL (8.4-10.2); Carbon Dioxide 22 mmol/L (22-29); Chloride 105 mmol/L (96-108); Creatinine Clr Calc Pharmacy 55.4; Estimated Glomerular Filt Rate > 60; Glucose Random 92 mg/dL (60-115); Potassium 4.8 mmol/L (3.3-5.1); Sodium 137 mmol/L (135-145); Total Protein 6.9 g/dL (6.5-8.0)
[2021-02-21 05:18] VITALS: RESP 16
[2021-02-21] MEDS: Naloxone HCl Nasal TAKE HOME 4 MG SPRAY NOSTRILALT (05:38)
--- NOTE | 2021-02-21 05:38 | PC.NURSE ---
PT A&O, NO SOB OR CHEST PAIN. PT EDUCATED ON NARCAN KIT AND PROPER ADMINISTRATION. PT HAD STABLE GAIT UPON DISCHARGE. PT DISCHARGE HOME SAFELY, COMING TO PICK HIM UP.
== END 2021-02-21 05:43 | disposition home or self-care (01) ==
PROVIDERS: Emergency Provider Emergency Medicine Emergency Medical Services; PCP Internal Medicine
DX: T40.1X1A Poisoning by heroin, accidental (unintentional), initial encounter (principal); Y92.9 Unspecified place or not applicable; F11.10 Opioid abuse, uncomplicated; Z71.51 Drug abuse counseling and surveillance of drug abuser; Z79.899 Other long term (current) drug therapy
CPT/HCPCS: 36415; 80053; 82077; 85025; 99284; 99285

== ENCOUNTER 2021-05-22 11:35 | Inpatient (IN) | payer MEDICARE, SELFPAY ==
[2021-05-22] VITALS (7 sets, daily range): BP systolic 89–141; BP diastolic 60–83; PULSE 80–111; RESP 15–20; TEMP 36.8; O2SAT 80–95; BMI 22.6; BMI 22.2
--- NOTE | ~2021-05-22 | US_ITS ---
EXAMINATION: US ABDOMEN COMPLETE CLINICAL INFORMATION: Transaminasemia. COMPARISON: CT abdomen and pelvis without contrast dated 01/18/2021. TECHNIQUE: Real-time imaging of the abdominal viscera. FINDINGS: PANCREAS: The head and proximal body appear unremarkable. Distal body and tail obscured by overlying bowel gas. ABDOMINAL AORTA: The proximal, mid, and distal segments are normal in caliber. INFERIOR VENA CAVA: Visualized portions are normal. LIVER: Normal. The liver is normal in size. The liver contour is normal. Parenchymal echogenicity is normal. No focal hepatic lesion. There is no intrahepatic biliary duct dilatation seen. GALLBLADDER: Normal. The gallbladder is physiologically distended without evidence of stones, sludge, polyps, wall thickening or pericholecystic fluid. COMMON BILE DUCT: Normal in caliber measuring 0.5 cm in diameter. RIGHT KIDNEY: No hydronephrosis. No renal calculi or focal parenchymal lesions. The kidney measures 9.8 cm in maximum dimension. LEFT KIDNEY: Normal. No hydronephrosis. No renal calculi or focal parenchymal lesions. The kidney measures 10.1 cm in maximum dimension. SPLEEN: Normal. The spleen measures 10.2 cm in maximum dimension. FREE FLUID: None. US/US abdomen complete IMPRESSION: No significant abnormality identified.
--- NOTE | ~2021-05-22 | XR_ITS ---
EXAMINATION: XR CHEST CLINICAL INFORMATION: Reassess opacities COMPARISON: Previous chest x-rays most recent 05/27/[address] 05/27/2020 TECHNIQUE: 2 views of the chest were obtained. FINDINGS: The cardiac silhouette does not appear enlarged. There are post-CABG changes. Hilar and mediastinal contours are unremarkable. There is continued interval improvement in the bilateral mixed groundglass and interstitial disease. The lungs are now clear. There is no pleural effusion or pneumothorax. There are degenerative changes of the spine. There are surgical clips over the left upper anterior chest. XR/XR chest 2V IMPRESSION: Post-CABG changes. Resolved groundglass and interstitial disease from previous recent exams.
--- NOTE | ~2021-05-22 | XR_ITS ---
EXAMINATION: XR CHEST CLINICAL INFORMATION: SOB. COMPARISON: Chest 01/26/2021 TECHNIQUE: Frontal view of the chest was obtained. FINDINGS: The lungs are expanded with scattered airspace opacity seen in both lungs suggestive of infiltrates likely related to Covid disease. There is no pleural effusion or consolidation. Heart size and pulmonary vascularity is normal. There are median sternotomy sutures and mediastinal sutures from previous cardiac intervention or CABG. No gross bony abnormality seen. XR/XR chest 1V IMPRESSION: Diffuse bilateral infiltrates.
--- NOTE | ~2021-05-22 | XR_ITS ---
EXAMINATION: XR CHEST CLINICAL INFORMATION: Pneumonia COMPARISON: Multiple previous chest x-rays with the last chest x-ray of 05/24/2021. Chest CT of 01/18/2021. TECHNIQUE: Frontal view of the chest was obtained. FINDINGS: Cardiomediastinal silhouette is stable with mild cardiomegaly. Mediastinal surgical clips and intact-appearing sternotomy wires are redemonstrated. Surgical clips projecting over the left superior scapular border are again noted. There is rather [id number] interval improvement in the multifocal patchy airspace opacities when compared to previous x-ray of 05/24/2021 with mild faint changes with interstitial prominence. No visible pneumothorax. No evidence of pleural effusions. XR/XR chest 1V IMPRESSION: [id number]-vs-slnadyliigp interval improvement in diffusely scattered bilateral patchy airspace opacities with persistent mild changes along with interstitial prominence. Given the significant interval improvement in a short period of time, the findings on the previous x-rays are probably suggestive of pulmonary edema. Infectious/inflammatory process although cannot be completely excluded. Recommend clinical correlation.
--- NOTE | ~2021-05-22 | XR_ITS ---
EXAMINATION: XR CHEST CLINICAL INFORMATION: Elevated white blood cell count COMPARISON: Previous chest x-ray most recent 05/29/2021 TECHNIQUE: Frontal view of the chest was obtained. FINDINGS: The cardiac and mediastinal contours are stable. The lungs are clear. Radiating pattern seen on chest CT 05/27/2021 is not appreciated by chest x-ray. There is no pleural effusion or pneumothorax. There are degenerative changes of the spine. XR/XR chest 1V IMPRESSION: No evidence for acute disease in the chest.
--- NOTE | ~2021-05-22 | XR_ITS ---
EXAMINATION: XR CHEST CLINICAL INFORMATION: Shortness of breath COMPARISON: Chest radiographs 05/22/2021, 01/26/2021 TECHNIQUE: Portable upright AP view of the chest was obtained. FINDINGS: There are diffuse bilateral patchy airspace opacities upper and lower zones, increased in severity from prior remote exam 05/22/2021. The costophrenic sulci are clear. No definite effusion. There is been prior median sternotomy with mediastinal clips and sternotomy wires. Heart size is stable. There is no pneumothorax or pneumomediastinum. No visible acute bony abnormality. XR/XR chest 1V IMPRESSION: Diffuse bilateral patchy airspace opacities increased from prior exam 05/22/2021.
--- NOTE | ~2021-05-22 | US_ITS ---
EXAMINATION: ULTRASOUND DUPLEX ARTERIAL AND VENOUS/LIVER DOPPLER EXAM CLINICAL INFORMATION: Abnormal liver function tests. Evaluate for portal or hepatic vein thrombus. COMPARISON: Previous abdominal ultrasound, most recent 05/23/2021. TECHNIQUE: Doppler color and grayscale evaluation of the portal and hepatic veins, splenic vein and main hepatic artery using grayscale and color imaging including waveform spectral analysis. FINDINGS: The main, right and left and extrahepatic portal veins are patent with appropriate hepatopedal flow. The splenic vein is patent with appropriate hepatopedal flow. The middle, right left hepatic veins and IVC are patent with normal waveform. The main hepatic artery is patent and demonstrates normal peak systolic velocity of 62 cm/s. There is no ascites. No collateral vessels are seen. US/US duplex arterial venous comp IMPRESSION: Normal liver Doppler exam. No evidence of portal or hepatic vein thrombus.
--- NOTE | ~2021-05-22 | CT_ITS ---
EXAMINATION: CT CHEST WITH CONTRAST CLINICAL INFORMATION: Hypoxia. COMPARISON: Chest x-ray 05/27/2021. CT chest 01/18/2021 TECHNIQUE: Multidetector volumetric CT imaging of the chest was obtained after the administration of 65 mL of Omnipaque 350 intravenous contrast without immediate adverse reactions. Axial MIP volume rendering provided. Sagittal and coronal reformatted images were obtained. This CT examination was performed using dose optimization techniques as appropriate, variously including the following: *Automated exposure control *Adjustment of mA and/or kV according to patient size (this includes techniques or standardized protocols for targeted exams where dose is matched to indication/reason for exam; i.e. extremities or head) *Use of iterative reconstruction technique DLP: 243 mGy-cm FINDINGS: LUNGS: Diffuse patchy multifocal groundglass airspace opacities in the pattern of crazy paving . Commonly reported imaging features of COVID-19 pneumonia are present. Other processes such as influenza pneumonia or organizing pneumonia can cause a similar imaging appearance, as can certain drug toxicities and connective tissue disorders. MEDIASTINUM: There are shotty borderline lymph nodes in the pretracheal retrovascular space at the level the viraj. Largest lymph node measuring 1.2 cm. There is no bulky lymphadenopathy. Heart size is normal. Moderate volume of coronary calcifications. There is no aneurysm of aorta. Small volume of calcifications of the thoracic aortic wall. PLEURA: There is no pleural effusion. No pleural mass or thickening. AXILLA: No lymphadenopathy. UPPER ABDOMEN: Vascular calcifications throughout the abdomen. Visualized portions of the solid organs are unremarkable. OSSEOUS STRUCTURES: Status post median sternotomy. Multilevel degenerative spondylosis spine. Slight anterior wedge compression deformity of the T11 vertebrae is chronic. No acute osseous abnormality. CT/CT chest w con IMPRESSION: Diffuse multifocal airspace opacities. Commonly reported imaging features of COVID-19 pneumonia are present. Other processes such as influenza pneumonia or organizing pneumonia can cause a similar imaging appearance, as can certain drug toxicities and connective tissue disorders. Fleischner guidelines were followed.
--- NOTE | 2021-05-22 11:53 | ECG_ITS ---
Test Reason : shortness of breath Blood Pressure : / mmHG Vent. Rate : 089 BPM Atrial Rate : 227 BPM P-R Int : 000 ms QRS Dur : 110 ms QT Int : 418 ms P-R-T Axes : 000 092 068 degrees QTc Int : 508 ms Atrial flutter with variable A-V block with premature ventricular or aberrantly conducted complexes Rightward axis Minimal voltage criteria for LVH, may be normal variant ( Vlad product ) Septal infarct (cited on or before 13-JUN-2019) Prolonged QT Abnormal ECG When compared with ECG of 26-JAN-2021 07:39, Atrial flutter has replaced Sinus rhythm ST elevation now present in Anterior leads - slight ST elevation T wave inversion no longer evident in Anterior leads Referred By: Khari Bueno Electronically Signed By:ABDIEL VILLARREAL
--- NOTE | 2021-05-22 11:57 | ED.GENADULT ---
HPI - General Adult General Chief complaint: Dyspnea Stated complaint: INCREASE WEAKNESS/SOB 82% RA @ OFFICE,+VACC Time Seen by Provider: 05/22/21 11:39 Source: patient, EMS and old records reviewed History of Present Illness HPI narrative: Patient with a history of congestive heart failure as well as COPD and polysubstance use disorder and active tobacco use disorder, presents with 1 week of general malaise. Positive cough although patient states similar to baseline. Positive dyspnea on exertion. No chest pain or palpitations No fevers or chills No nausea vomiting or diarrhea. He does have decreased appetite and p.o. intake. He saw his PCP today and found his oxygen saturation to be 88% on room air. He is not typically oxygen dependent. EMS was called. Related Data Home Medications Medication Instructions Recorded Confirmed apixaban 5 mg tablet (Eliquis) 5 mg PO BID 01/12/21 05/22/21 aspirin 81 mg tablet 81 mg PO DAILY 01/12/21 05/22/21 atorvastatin 40 mg tablet 40 mg PO BEDTIME 01/12/21 05/22/21 clonidine HCl 0.1 mg tablet 0.1 mg PO BID 01/12/21 05/22/21 omeprazole 20 mg capsule,delayed 20 mg PO DAILY 01/12/21 05/22/21 release pentoxifylline 400 mg 1 tab PO BID 01/18/21 05/22/21 tablet,extended release B-complex with vitamin C 1 tab PO DAILY 05/22/21 05/22/21 multivitamin 1 tab PO DAILY 05/22/21 05/22/21 sertraline 50 mg tablet 1 tab PO DAILY 05/22/21 05/22/21 vitamin E 1 tab PO DAILY 05/22/21 05/22/21 Previous Rx's Medication Instructions Recorded amiodarone 200 mg tablet 400 mg PO BID #120 tab 01/27/21 levetiracetam 500 mg tablet 500 mg PO BID #60 tab 01/27/21 metoprolol succinate 25 mg 75 mg PO DAILY #90 tab 01/27/21 tablet,extended release 24 hr Allergies Allergy/AdvReac Type Severity Reaction Status Date / Time No Known Allergies Allergy Unverified 01/12/21 01:03 Review of Systems Constitutional: Comments: General malaise without fevers or chills Cardiovascular: Comments: No chest pain Respiratory: Comments: Positive dyspnea and cough Gastrointestinal: Comments: Decreased appetite. No nausea vomiting or diarrhea Genitourinary: Comments: No urinary symptoms Integumentary/Breasts: Comments: No rash Neurologic: Comments: Generalized weakness without focal weakness [facility] Past Medical History Medical History Atrial fibrillation Atrial flutter CAD (coronary artery disease) Cardiac arrest CHF (congestive heart failure) Cocaine abuse with intoxication COPD (chronic obstructive pulmonary disease) Coronary bypass graft mechanical complication Drug abuse 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 Heroin use Hyperlipemia Paroxysmal atrial fibrillation PVD (peripheral vascular disease) Seizure-like activity Toxic encephalopathy Surgical History S/P CABG x 2 Social History Social History Household Members: Unknown / Unable to assess Housing: Unknown / Unable to assess Unable to assess alcohol history related to: Unable to respond Alcohol intake: former Patient Tobacco Use Status: Current everyday Tobacco user Tobacco use type: Cigarette Cigarettes Per Day: 5 e-Cigarette/Vaping Use: Never Used Use of substances other than those prescribed or required for medical reasons: Yes Substance Use Type: Heroin Substance Use Frequency: Occasionally Advance Directives: Yes Advance Directives on File: Yes Advance Directives Date on File: 01/12/21 service: No Current occupational status: retired Physical Exam Vital Signs: Vital Signs: Last Vital Signs Temp 98.2 F 05/22/21 11:48 Pulse 98 05/22/21 12:57 Resp 16 05/22/21 12:57 BP 131/65 05/22/21 12:57 Pulse Ox 93 05/22/21 12:57 BMI result Body Mass Index 22.6 Const: Other: No acute distress. Alert and oriented x3 HENMT: Other: Mucosa dry Neck: Other: No meningismus Resp: Other: Diffuse expiratory rhonchi. Left greater than right Cardio: Other: Irregularly irregular approximately 90 beats per minute GI: Other: Soft nontender nondistended with normoactive bowel sounds Skin: Other: Warm pink and dry without rash. Poor skin turgor Neuro: Other: Awake alert oriented in no acute distress. Moves all extremities without difficulty. No focal deficit Extrem: Other: No calf tenderness Course Course Course Narrative: Patient hypotensive. Hypoxic. Multiple potential etiologies including cardiogenic shock, pneumonia, pulmonary embolism less likely, hypokalemia secondary to poor p.o. intake, 12:03 p.m. Sepsis is suspected, with a source of possible pneumonia. Will treat with IV fluids, but given prior history of congestive heart failure with prior admissions for fluid overload, will need to given small boluses. Goal will be 30 cc/kilos if he tolerates. Broad-spectrum antibiotics, ceftriaxone for presumed respiratory source. 12:55 p.m.. White count is mildly elevated at 15,000 thousand. This is similar to multiple prior white counts. Chest x-ray shows multiple scattered bilateral infiltrates which are new from prior x-rays. Concern for viral etiology such as COVID. LFTs are elevated with an AST of 151 and an ALT of 173. His bilirubin is 1 which is still within normal limits but higher than his baseline of 0.4. BNP is 321 which is significantly lower than baseline and more consistent with hypovolemia compared to fluid overload. His troponin is 3.8. During his last hospitalization of significantly elevated. His COVID-19 antigen test is negative. Will continue with current plan. 1:03 p.m.. Blood pressure has significantly improved now with a systolic of 130. Another 500 cc of saline ordered. Given his improvement of blood pressure as well as his lactic acid of 1, in conjunction with his congestive heart failure, I will hold off on further fluids at this point. I am concerned that he will not tolerate 30 cc/kilos and will precipitate congestive heart failure episode. Will hospitalized at this point with a final diagnosis of hypoxia and hypotension secondary to pneumonia Medical Decision Making Lab Data Result diagrams: 05/22/21 12:11 05/22/21 12:11 Labs: Lab Results 05/22/21 05/22/21 05/22/21 Range/Units 12:10 12:11 12:11 WBC 15.0 H (4.8-10.8) X10*3/uL RBC 4.36 L (4.60-5.80) X10*6/uL Hgb 12.6 L (14.0-18.0) g/dl Hct 37.0 L (42.0-52.0) % MCV 84.9 (80.0-98.0) fL MCH 28.9 (27.0-33.0) pg MCHC 34.1 (31.0-36.0) g/dl RDW 16.5 H (11.0-16.0) % Plt Count 259 (160-400) X10*3/uL MPV 9.0 L (9.4-12.4) fL Immature Gran % (Auto) 0.7 H (0.0-0.4) % Neut % (Auto) 71.1 (45-73) % Lymph % (Auto) 11.2 L (20-40) % Schuyler % (Auto) 14.2 H (2-11) % Eos % (Auto) 2.3 (0-4) % Baso % (Auto) 0.5 (0-2) % Lymph # (Auto) 1.7 (1.2-4.9) X10*3/uL Schuyler # (Auto) 2.1 H (0.1-1.2) X10*3/uL Eos # (Auto) 0.3 (0.0-0.4) X10*3/uL Baso # (Auto) 0.1 (0.0-0.2) X10*3/uL Abs Immat Gran (auto) 0.11 H (0.00-0.03) X10*3/uL Absolute Neuts (auto) 10.6 H (2.0-8.3) x10*3/uL Absolute Nucleated RBC 0.000 (0.0-0.012) X10*3/uL Nucleated RBC % (auto) 0.0 (0.0-0.2) /100WBC Smear Tech's Comments VERIFIED D-Dimer High Sensitivty NG/ML Sodium 136 (135-145) mmol/L Potassium 3.9 (3.3-5.1) mmol/L Chloride 102 (96-108) mmol/L Carbon Dioxide 27 (22-29) mmol/L Anion Gap 11 L (12-20) BUN 16 (9-16) mg/dL Creatinine 0.89 (0.5-1.4) mg/dL Estim Creat Clear Calc 72.3 Estimated GFR > 60 Random Glucose 114 (60-115) mg/dL Lactic Acid 1.0 (0.5-2.0) mmol/L Calcium 8.1 L (8.4-10.2) mg/dL Total Bilirubin 1.0 (0.0-1.0) mg/dL AST 151 H (5-37) U/L ALT 173 H (0-40) U/L Alkaline Phosphatase 95 (39-117) U/L Troponin I High Sens (<3.5-35.0) ng/L B-Natriuretic Peptide (<100) pg/mL Total Protein 5.8 L (6.5-8.0) g/dL Albumin 2.8 L D (3.5-5.0) g/dL COVID-19 (TIFFANIE) (Negative) COVID-19 Clin Com 05/22/21 05/22/21 05/22/21 Range/Units 12:11 12:11 12:11 WBC (4.8-10.8) X10*3/uL RBC (4.60-5.80) X10*6/uL Hgb (14.0-18.0) g/dl Hct (42.0-52.0) % MCV (80.0-98.0) fL MCH (27.0-33.0) pg MCHC (31.0-36.0) g/dl RDW (11.0-16.0) % Plt Count (160-400) X10*3/uL MPV (9.4-12.4) fL Immature Gran % (Auto) (0.0-0.4) % Neut % (Auto) (45-73) % Lymph % (Auto) (20-40) % Schuyler % (Auto) (2-11) % Eos % (Auto) (0-4) % Baso % (Auto) (0-2) % Lymph # (Auto) (1.2-4.9) X10*3/uL Schuyler # (Auto) (0.1-1.2) X10*3/uL Eos # (Auto) (0.0-0.4) X10*3/uL Baso # (Auto) (0.0-0.2) X10*3/uL Abs Immat Gran (auto) (0.00-0.03) X10*3/uL Absolute Neuts (auto) (2.0-8.3) x10*3/uL Absolute Nucleated RBC (0.0-0.012) X10*3/uL Nucleated RBC % (auto) (0.0-0.2) /100WBC Smear Tech's Comments D-Dimer High Sensitivty 336 NG/ML Sodium (135-145) mmol/L Potassium (3.3-5.1) mmol/L Chloride (96-108) mmol/L Carbon Dioxide (22-29) mmol/L Anion Gap (12-20) BUN (9-16) mg/dL Creatinine (0.5-1.4) mg/dL Estim Creat Clear Calc Estimated GFR Random Glucose (60-115) mg/dL Lactic Acid (0.5-2.0) mmol/L Calcium (8.4-10.2) mg/dL Total Bilirubin (0.0-1.0) mg/dL AST (5-37) U/L ALT (0-40) U/L Alkaline Phosphatase (39-117) U/L Troponin I High Sens 3.8 (<3.5-35.0) ng/L B-Natriuretic Peptide (<100) pg/mL Total Protein (6.5-8.0) g/dL Albumin (3.5-5.0) g/dL COVID-19 (TIFFANIE) Negative (Negative) COVID-19 Clin Com See Note 05/22/21 Range/Units 12:11 WBC (4.8-10.8) X10*3/uL RBC (4.60-5.80) X10*6/uL Hgb (14.0-18.0) g/dl Hct (42.0-52.0) % MCV (80.0-98.0) fL MCH (27.0-33.0) pg MCHC (31.0-36.0) g/dl RDW (11.0-16.0) % Plt Count (160-400) X10*3/uL MPV (9.4-12.4) fL Immature Gran % (Auto) (0.0-0.4) % Neut % (Auto) (45-73) % Lymph % (Auto) (20-40) % Schuyler % (Auto) (2-11) % Eos % (Auto) (0-4) % Baso % (Auto) (0-2) % Lymph # (Auto) (1.2-4.9) X10*3/uL Schuyler # (Auto) (0.1-1.2) X10*3/uL Eos # (Auto) (0.0-0.4) X10*3/uL Baso # (Auto) (0.0-0.2) X10*3/uL Abs Immat Gran (auto) (0.00-0.03) X10*3/uL Absolute Neuts (auto) (2.0-8.3) x10*3/uL Absolute Nucleated RBC (0.0-0.012) X10*3/uL Nucleated RBC % (auto) (0.0-0.2) /100WBC Smear Tech's Comments D-Dimer High Sensitivty NG/ML Sodium (135-145) mmol/L Potassium (3.3-5.1) mmol/L Chloride (96-108) mmol/L Carbon Dioxide (22-29) mmol/L Anion Gap (12-20) BUN (9-16) mg/dL Creatinine (0.5-1.4) mg/dL Estim Creat Clear Calc Estimated GFR Random Glucose (60-115) mg/dL Lactic Acid (0.5-2.0) mmol/L Calcium (8.4-10.2) mg/dL Total Bilirubin (0.0-1.0) mg/dL AST (5-37) U/L ALT (0-40) U/L Alkaline Phosphatase (39-117) U/L Troponin I High Sens (<3.5-35.0) ng/L B-Natriuretic Peptide 321 H (<100) pg/mL Total Protein (6.5-8.0) g/dL Albumin (3.5-5.0) g/dL COVID-19 (TIFFANIE) (Negative) COVID-19 Clin Com Discharge Plan Discharge Clinical Impression: Acute exacerbation of chronic obstructive airways disease Community acquired pneumonia Qualifiers: Laterality: unspecified laterality Qualified Code(s): J18.9 - Pneumonia, unspecified organism Sepsis Qualifiers: Sepsis type: sepsis due to unspecified organism Sepsis acute organ dysfunction status: with acute organ dysfunction Severe sepsis acute organ dysfunction type: acute respiratory failure Acute respiratory failure type: with hypoxia Severe sepsis shock status: with septic shock Qualified Code(s): A41.9 - Sepsis, unspecified organism Patient Disposition: Admitted As Inpatient
[2021-05-22] MEDS: Albuterol Sulfate (0.083%) 2.5 MG/3 ML VIAL.NEB INHALE (12:01)
[2021-05-22 12:20] LABS: Basophils Absolute Auto 0.1 X10*3/uL (0.0-0.2); Basophils Percent Auto 0.5 % (0-2); Eosinophils Absolute Auto 0.3 X10*3/uL (0.0-0.4); Eosinophils Percent Auto 2.3 % (0-4); Hemoglobin 12.6 g/dl (14.0-18.0); Imm Gran Abs Auto 0.11 X10*3/uL (0.00-0.03); Imm Gran Pct Auto 0.7 % (0.0-0.4); Lymphocytes Absolute Auto 1.7 X10*3/uL (1.2-4.9); Lymphocytes Percent Auto 11.2 % (20-40); MANUAL DIFF FLAG SCAN; Mean Corpuscular HGB Conc 34.1 g/dl (31.0-36.0); Mean Corpuscular Hemoglobin 28.9 pg (27.0-33.0); Mean Corpuscular Volume 84.9 fL (80.0-98.0); Monocytes Absolute Auto 2.1 X10*3/uL (0.1-1.2); Monocytes Percent Auto 14.2 % (2-11); Neutrophils Absolute Auto 10.6 x10*3/uL (2.0-8.3); Neutrophils Percent Auto 71.1 % (45-73); Platelet Count 259 X10*3/uL (160-400); Red Blood Count 4.36 X10*6/uL (4.60-5.80); Red Cell Distribution Width 16.5 % (11.0-16.0); SCAN SMEAR FLAG 1
[2021-05-22 12:26] LABS: D Dimer High Sensitivity 336 NG/ML
[2021-05-22 12:36] LABS: COVID-19 Test Negative (Negative)
[2021-05-22 12:40] LABS: Alanine Aminotransferase 173 U/L (0-40); Albumin Level 2.8 g/dL (3.5-5.0); Alkaline Phosphatase 95 U/L (39-117); Anion Gap 11 (12-20); Aspartate Amino Transferase 151 U/L (5-37); Blood Urea Nitrogen 16 mg/dL (9-16); Calcium 8.1 mg/dL (8.4-10.2); Carbon Dioxide 27 mmol/L (22-29); Chloride 102 mmol/L (96-108); Creatinine Clr Calc Pharmacy 72.3; Estimated Glomerular Filt Rate > 60; Glucose Random 114 mg/dL (60-115); Potassium 3.9 mmol/L (3.3-5.1); Sodium 136 mmol/L (135-145); Total Protein 5.8 g/dL (6.5-8.0)
[2021-05-22 12:42] LABS: SLIDE REVIEW VERIFIED
[2021-05-22 12:45] LABS: Troponin-I High Sensitivity 3.8 ng/L (<3.5-35.0)
[2021-05-22 12:46] LABS: B Type Natriuretic Peptide 321 pg/mL (<100)
[2021-05-22] MEDS: Azithromycin 500 MG TABLET PO (12:53)
[2021-05-22] MEDS: methylPREDNISolone Sod Succ 125 MG/2 ML VIAL IVPUSH (12:54)
[2021-05-22] MEDS: cefTRIAXone sodium 1 GM in 0.9 % Sodium Chloride 50 ML IV (12:54)
[2021-05-22] MEDS: 0.9 % Sodium Chloride 500 ML IV ×2 (12:56→13:51)
--- NOTE | 2021-05-22 14:02 | PHA.MEDREC ---
Pharmacy Consult ? Medication Reconciliation Pharmacy has completed the medication reconciliation. Spoke with patient's Dinorah to confirm medications. Reports that he takes pentoxyifylline BID instead of TID. She also report he is still taking eliquis. Angélica Wilkes, PharmD
[2021-05-22 14:09] LABS: C Reactive Protein 20.34 mg/dL (< or = 0.50)
--- NOTE | 2021-05-22 14:14 | PM.SEPSISNOT ---
Sepsis Bolus Exclusion Sepsis Bolus Exclusion CHF/Renal Failure This patient met severe sepsis criteria due to the following condition(s):: Hypotension In my clinical judgement the administration of 30 ml/kg of crystalloid would be detrimental to this patient due to the patient's following conditions:: NYHA class III or IV Heart Failure(symptoms with low exertion or rest) Replace the 30 mls/kg with: Crystalloids amount given in mls:: 1,000 Colloids amount given in mls:: 0
[2021-05-22 14:54] LABS: Adenovirus PCR Not Detected (Not Detect.); Bordetella parapertussis PCR Not Detected (Not Detect.); Bordetella pertussis PCR Not Detected (Not Detect.); Chlamydia pneumoniae PCR Not Detected (Not Detect.); Coronavirus 229E PCR Not Detected (Not Detect.); Coronavirus HKU1 PCR Not Detected (Not Detect.); Coronavirus NL63 PCR Not Detected (Not Detect.); Coronavirus OC43 PCR Not Detected (Not Detect.); Human metapneumovirus PCR Not Detected (Not Detect.); Influenza A PCR Not Detected (Not Detect.); Influenza B PCR Not Detected (Not Detect.); Mycoplasma pneumoniae PCR Not Detected (Not Detect.); Parainfluenza 1 PCR Not Detected (Not Detect.); Parainfluenza 2 PCR Not Detected (Not Detect.); Parainfluenza 3 PCR Not Detected (Not Detect.); Parainfluenza 4 PCR Not Detected (Not Detect.); RSV PCR Not Detected (Not Detect.); Rhino/Enterovirus PCR Not Detected (Not Detect.); SARS-CoV-2 PCR Not Detected (Not Detect.)
[2021-05-22 14:54] LABS: Procalcitonin 0.09 ng/mL
--- NOTE | 2021-05-22 15:24 | PM.IMHP ---
History of Present Illness Date of Service: 05/22/21 Chief Complaint: dyspnea 66yo M with COPD not on home O2, CAD s/p CABG x2, combined systolic/diastolic HF, AF on apixaban, CVA without residual deficit, PAD, tobacco abuse [1.5 ppd], hx heroin + cocaine abuse. He was last admitted here 01/18-01/27/21 to the ICU for status epilepticus resulting in aspiration and possibly VF cardiac arrest. He underwent therapeutic cooling and mechanical ventilation. He was downgraded to the hospitalist service but signed out against medical advice. He presented to his controlled area checker's office today with 1 week of worsening fatigue, myalgias, dyspnea, and cough productive of white sputum that is worse than his chronic cough. He denies any sick contacts. No chest pain. He was noted to have room air SaO2 of 86% and thus was sent to the hospital. He is not on home O2. In the ED, he was found to be hypostensive. Lactate was normal. He was fluid-responsive, and BP normalized after 1L of IV crystalloid [30 cc/kg not given due to HF]. He was found to have multifocal infiltrates. He was given IV ceftriaxone and azithromycin. Covid-19 TIFFANIE was negative. He was also noted to have transaminasemia with AST 151/ALT 173. He is a poor historian and this current history was obtained through [place] [facility] [place] [facility] [place] I attemped to reach the pt's but there is no answer at the number listed and no answering service. Review of Systems Review of Systems: Yes all other systems are reviewed and are negative [facility] Medical History Acute combined systolic and diastolic congestive heart failure Atrial fibrillation Atrial flutter Atrial flutter CAD (coronary artery disease) Cardiac arrest Cardiomyopathy CHF (congestive heart failure) Cocaine abuse with intoxication COPD (chronic obstructive pulmonary disease) Coronary bypass graft mechanical complication Drug abuse 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 Heroin use History of hemorrhagic cerebrovascular accident (CVA) without residual deficits Hyperlipemia Opioid use disorder Paroxysmal atrial fibrillation PVD (peripheral vascular disease) Seizure disorder Seizure-like activity Subclavian arterial stenosis Toxic encephalopathy Pertinent family history: Mother (): Bone cancer; Hyperlipidemia Father (): CAD - Coronary artery disease; Hyperlipidemia Brother: Alcoholism; CAD - Coronary artery disease; Hepatitis C; Hyperlipidemia Brother: Hyperlipidemia Other: Hyperlipidemia Surgical History S/P CABG x 2 Social History Household Members: Unknown / Unable to assess Housing: Unknown / Unable to assess Unable to assess alcohol history related to: Unable to respond Alcohol intake: former Patient Tobacco Use Status: Current everyday Tobacco user Tobacco use type: Cigarette Cigarettes Per Day: 5 e-Cigarette/Vaping Use: Never Used Use of substances other than those prescribed or required for medical reasons: Yes Substance Use Type: Heroin Substance Use Frequency: Occasionally Advance Directives: Yes Advance Directives on File: Yes Advance Directives Date on File: 01/12/21 service: No Current occupational status: retired [employer] Allergies Allergy/AdvReac Type Severity Reaction Status Date / Time No Known Allergies Allergy Unverified 01/12/21 01:03 Active Medications: Current Medications Acetaminophen (Acetaminophen 325 Mg Tablet) 650 mg PO Q6H PRN PRN Reason: Pain, Mild (Pain Scale 1-3) Albuterol Sulfate (Albuterol Sulfate (0.083%) 2.5 Mg/3 Ml Vial.Neb) 2.5 mg INHALE Q2H PRN PRN Reason: Shortness of Breath/Wheezing Albuterol/Ipratropium (Albuterol/Iprat 2.5/0.5mg 3 Ml Ampul.Neb) 3 ml INHALE RQ4H WHILE AWAKE CARLIE Amiodarone HCl (Amiodarone Hcl 200 Mg Tablet) 400 mg PO BID CARLIE Apixaban (Apixaban 5 Mg Tablet) 5 mg PO BID CARLIE Aspirin (Aspirin 81 Mg Tab.Chew) 81 mg PO DAILY [facility] Atorvastatin Calcium (Atorvastatin Calcium 40 Mg Tablet) 40 mg PO BEDTIME CARLIE Clonidine HCl (Clonidine Hcl 0.1 Mg Tablet) 0.1 mg PO BID CARLIE; Protocol Clotrimazole (Clotrimazole 10 Mg Diana) 10 mg MUCOUS MEM 5XD CARLIE Piperacillin Sod/Tazobactam (Sod 4.5 gm/ Sodium Chloride) 100 mls @ 200 mls/hr IV Q6H CARLIE Levetiracetam (Levetiracetam 500 Mg Tablet) 500 mg PO BID [facility] Methylprednisolone Sodium Succinate (Methylprednisolone Sod Succ 40 Mg/Ml Vial) 40 mg IVPUSH Q12H [facility] Metoprolol Succinate (Metoprolol Succinate Er 25 Mg Tab.Er.24h) 75 mg PO DAILY [facility]; Protocol Multivitamins/Vitamin C (Multivitamin Tablet) 1 tab PO DAILY [facility] Omeprazole (Omeprazole 20 Mg Capsule.Dr) 20 mg PO DAILY [facility] Ondansetron HCl (Ondansetron Hcl 4 Mg/2 Ml Vial) 4 mg IVPUSH Q8H PRN PRN Reason: Nausea and Vomiting Pentoxifylline (Pentoxifylline Er 400 Mg Tablet.Er) 400 mg PO BID [facility] Pharmacy Consult (Consult Rx Vancomycin Dosing) 1 each MISCELLANE NOW STA Stop: 05/22/21 15:04 Sertraline HCl (Sertraline Hcl 50 Mg Tablet) 50 mg PO DAILY [facility] Sodium Chloride (0.9 % Sodium Chloride Flush 3 Ml Syringe) 3 ml IVFLUSH QSHIFT [facility] Home Medications Medication Instructions Recorded Confirmed Last Taken Type apixaban 5 mg tablet (Eliquis) 5 mg PO BID 01/12/21 05/22/21 05/21/21 History aspirin 81 mg tablet 81 mg PO DAILY 01/12/21 05/22/21 05/21/21 History atorvastatin 40 mg tablet 40 mg PO BEDTIME 01/12/21 05/22/21 05/21/21 History clonidine HCl 0.1 mg tablet 0.1 mg PO BID 01/12/21 05/22/21 05/21/21 History omeprazole 20 mg capsule,delayed 20 mg PO DAILY 01/12/21 05/22/21 05/21/21 History release pentoxifylline 400 mg 1 tab PO BID 01/18/21 05/22/21 05/21/21 History tablet,extended release B-complex with vitamin C 1 tab PO DAILY 05/22/21 05/22/21 05/21/21 History multivitamin 1 tab PO DAILY 05/22/21 05/22/21 05/21/21 History sertraline 50 mg tablet 1 tab PO DAILY 05/22/21 05/22/21 05/21/21 History vitamin E 1 tab PO DAILY 05/22/21 05/22/21 05/21/21 History Physical Exam Vital Signs and Narrative: Vital Signs: Last Vital Signs Temp 98.2 F 05/22/21 11:48 Pulse 98 05/22/21 12:57 Resp 16 05/22/21 12:57 BP 131/65 05/22/21 12:57 Pulse Ox 93 05/22/21 12:57 BMI result Body Mass Index 22.6 Gen: in no acute distress HEENT: sclera anicteric, moist mucus membranes, thrush on tongue Neck: supple Lungs: diffuse expiratory wheezing Heart: regular rate and rhythm, no murmurs Abd: soft, non-tender, non-distended Ext: no edema Skin: warm/well-perfused Neuro: alert and oriented x3, no focal findings Psych: appropriate affect Results Labs CBC and Chem 7: 05/22/21 12:11 05/22/21 12:11 Labs: Laboratory Results - last 24 hr 05/22/21 05/22/21 05/22/21 12:10 12:11 12:11 MCV 84.9 MCH 28.9 MCHC 34.1 RDW 16.5 H Plt Count 259 MPV 9.0 L Immature Gran % (Auto) 0.7 H Neut % (Auto) 71.1 Lymph % (Auto) 11.2 L Hubbard % (Auto) 14.2 H Eos % (Auto) 2.3 Baso % (Auto) 0.5 Lymph # (Auto) 1.7 Hubbard # (Auto) 2.1 H Eos # (Auto) 0.3 Baso # (Auto) 0.1 Abs Immat Gran (auto) 0.11 H Absolute Neuts (auto) 10.6 H Absolute Nucleated RBC 0.000 Nucleated RBC % (auto) 0.0 Smear Tech's Comments VERIFIED D-Dimer High Sensitivty Anion Gap 11 L Estim Creat Clear Calc 72.3 Estimated GFR > 60 Random Glucose 114 Lactic Acid 1.0 Calcium 8.1 L Total Bilirubin 1.0 AST 151 H ALT 173 H Alkaline Phosphatase 95 Troponin I High Sens C-Reactive Protein 20.34 H B-Natriuretic Peptide Total Protein 5.8 L Albumin 2.8 L D Procalcitonin COVID-19 (TIFFANIE) COVID-19 Clin Com 05/22/21 05/22/21 05/22/21 12:11 12:11 12:11 MCV MCH MCHC RDW Plt Count MPV Immature Gran % (Auto) Neut % (Auto) Lymph % (Auto) Hubbard % (Auto) Eos % (Auto) Baso % (Auto) Lymph # (Auto) Hubbard # (Auto) Eos # (Auto) Baso # (Auto) Abs Immat Gran (auto) Absolute Neuts (auto) Absolute Nucleated RBC Nucleated RBC % (auto) Smear Tech's Comments D-Dimer High Sensitivty 336 Anion Gap Estim Creat Clear Calc Estimated GFR Random Glucose Lactic Acid Calcium Total Bilirubin AST ALT Alkaline Phosphatase Troponin I High Sens 3.8 C-Reactive Protein B-Natriuretic Peptide Total Protein Albumin Procalcitonin COVID-19 (TIFFANIE) Negative COVID-19 Clin Com See Note 05/22/21 05/22/21 12:11 12:11 MCV MCH MCHC RDW Plt Count MPV Immature Gran % (Auto) Neut % (Auto) Lymph % (Auto) Hubbard % (Auto) Eos % (Auto) Baso % (Auto) Lymph # (Auto) Hubbard # (Auto) Eos # (Auto) Baso # (Auto) Abs Immat Gran (auto) Absolute Neuts (auto) Absolute Nucleated RBC Nucleated RBC % (auto) Smear Tech's Comments D-Dimer High Sensitivty Anion Gap Estim Creat Clear Calc Estimated GFR Random Glucose Lactic Acid Calcium Total Bilirubin AST ALT Alkaline Phosphatase Troponin I High Sens C-Reactive Protein B-Natriuretic Peptide 321 H Total Protein Albumin Procalcitonin 0.09 COVID-19 (TIFFANIE) COVID-19 Clin Com Impressions Chest X-Ray 05/22/21 12:20 IMPRESSION: Diffuse bilateral infiltrates. Imaging Radiologist's Impressions: Impressions Chest X-Ray 05/22/21 12:20 IMPRESSION: Diffuse bilateral infiltrates. Assessment and Plan (1) Hypoxia: Status: Acute (2) Community acquired pneumonia: Qualifiers: Laterality: unspecified laterality Qualified Code(s): J18.9 - Pneumonia, unspecified organism Status: Acute (3) Sepsis: Qualifiers: Acute respiratory failure type: with hypoxia Sepsis acute organ dysfunction status: with acute organ dysfunction Sepsis type: sepsis due to unspecified organism Severe sepsis acute organ dysfunction type: acute respiratory failure Severe sepsis shock status: with septic shock Qualified Code(s): A41.9 - Sepsis, unspecified organism; R65.21 - Severe sepsis with septic shock; J96.01 - Acute respiratory failure with hypoxia Status: Acute 66yo M with COPD not on home O2, CAD s/p CABG x2, combined systolic/diastolic HF, AF on apixaban, CVA without residual deficit, PAD, tobacco abuse [1.5 ppd], hx heroin + cocaine abuse, seizure disorder, possible VF arrest with status epilepticus, presented to his PCP's office with dyspnea and was noted to be hypoxic, arrived here hypotensive and hypoxic but fluid-responsive, and found to have multifocal PNA. # acute hypoxic respiratory failure - admit to [facility] on supplemental O2, wean as tolerated # atypical PNA - PCT low. check respiratory virus panel. given hx MRSA+ swab + risk factors, will treat broadly with vanco + pip/shameka, trend PCT, follow BCx, check UAgs, and recheck HIV status [celia in light of thrush and polysubstance abuse]. # COPD exacerbation - IV steroids, standing/prn nebs # sepsis - fluid-responsive hypotension, no lactic acidosis. # transaminasemia - suspect due to sepsis/ischemic hepatitis but screen for HBV/HCV. recheck LFTs in am # thrush - clotrimazole troches. # AF - currently in atrial flutter with rate in 90s - continue amiodarone, metoprolol succinate - continue apixaban # CAD # PAD - continue pentoxyfilline, ASA, statin, metoprolol succinate # seizure disorder - continue levetiracteam # mood disorder - continue sertraline # hx polysubstance abuse - check Utox. pt currently denies any substance abuse but is not a good historian - screen HBV/HCV/HIV # tobacco abuse - NRT, counseling # VTE ppx - apixaban Quality Stroke Does the patient have a stroke diagnosis?: No VTE Prior VTE?: No VTE Risk Level:: Medical - moderate - high VTE Device Contraindication: N/A - Device Ordered VTE Drug Contraindication: N/A - Med Ordered
[2021-05-22] MEDS: Piperacillin Sodium/Tazobactam 4.5 GM in 0.9 % Sodium Chloride 100 ML IV ×2 (15:38→22:13)
[2021-05-22] MEDS: 0.9 % Sodium Chloride Flush 3 ML SYRINGE IVFLUSH ×2 (15:44→22:13)
--- NOTE | 2021-05-22 15:51 | PC.NURSE ---
pt alet and oriented, skin pwd, respirations even unlabored, rhonchi on the bases, reports no pain at this time, sating at 93-95% on 4l, a-fib on the monitor, oral mucosal very dry
[2021-05-22] MEDS: Albuterol/Iprat 2.5/0.5MG 3 ML AMPUL.NEB INHALE ×2 (15:55→20:42)
[2021-05-22 16:05] LABS: Troponin-I High Sensitivity 3.8 ng/L (<3.5-35.0)
[2021-05-22] MEDS: vancomycin HCL 1,250 MG in 0.9 % Sodium Chloride 250 ML 166.67 MG IV (18:49)
--- NOTE | 2021-05-22 20:51 | PC.NURSE ---
This freelance copywriter spoke with patient's regarding disposition of patient. All information relayed to patient's who was relieved that patient's vital signs were improving.
[2021-05-22] MEDS: methylPREDNISolone Sod Succ 40 MG/ML VIAL IVPUSH (22:13)
[2021-05-22] MEDS: Pentoxifylline ER 400 MG TABLET.ER PO (22:14)
[2021-05-22] MEDS: Apixaban 5 MG TABLET PO (22:14)
[2021-05-22] MEDS: cloNIDine HCL 0.1 MG TABLET PO (22:14)
[2021-05-22] MEDS: levETIRAcetam 500 MG TABLET PO (22:14)
[2021-05-22] MEDS: Amiodarone HCL 200 MG TABLET 400 MG PO (22:14)
[2021-05-22] MEDS: Atorvastatin Calcium 40 MG TABLET PO (22:14)
[2021-05-23] VITALS (8 sets, daily range): BP systolic 114–144; BP diastolic 58–80; PULSE 90–109; RESP 15–18; TEMP 36.1–36.6; O2SAT 90–95
[2021-05-23] MEDS: Piperacillin Sodium/Tazobactam 4.5 GM in 0.9 % Sodium Chloride 100 ML IV ×4 (03:34→21:15)
[2021-05-23 05:43] LABS: Hematocrit 35.7 % (42.0-52.0); Hemoglobin 12.3 g/dl (14.0-18.0); Mean Corpuscular HGB Conc 34.5 g/dl (31.0-36.0); Mean Corpuscular Hemoglobin 28.9 pg (27.0-33.0); Mean Platelet Volume 9.4 fL (9.4-12.4); Platelet Count 237 X10*3/uL (160-400); Red Blood Count 4.25 X10*6/uL (4.60-5.80); Red Cell Distribution Width 16.4 % (11.0-16.0); White Blood Count 16.7 X10*3/uL (4.8-10.8)
[2021-05-23 06:04] LABS: Alanine Aminotransferase 197 U/L (0-40); Albumin Level 2.6 g/dL (3.5-5.0); Alkaline Phosphatase 87 U/L (39-117); Anion Gap 11 (12-20); Aspartate Amino Transferase 190 U/L (5-37); Bilirubin Total 1.1 mg/dL (0.0-1.0); Blood Urea Nitrogen 13 mg/dL (9-16); Carbon Dioxide 25 mmol/L (22-29); Chloride 103 mmol/L (96-108); Creatinine Clr Calc Pharmacy 83.3; Estimated Glomerular Filt Rate > 60; Glucose Random 173 mg/dL (60-115); Potassium 3.7 mmol/L (3.3-5.1); Sodium 135 mmol/L (135-145); Total Protein 5.6 g/dL (6.5-8.0)
[2021-05-23 06:07] LABS: B Type Natriuretic Peptide 726 pg/mL (<100)
[2021-05-23 07:53] LABS: HBc Num1 0.09 S/CO (0.00-0.79); HBsAGNum1 0.19 S/CO (0.00-0.99); HIV AB/AG Nonreactive (Nonreactive); HIV Num 1 0.05 S/CO (0.00-0.99); Hepatitis B Core Antibody Nonreactive (Nonreactive); Hepatitis B Surface Antigen Negative (Negative); ~HepC Num1 0.13 S/CO (0.00-0.79); ~Hepatitis C Antibody Nonreactive (Nonreactive)
[2021-05-23] MEDS: Amiodarone HCL 200 MG TABLET 400 MG PO ×2 (07:59→21:08)
[2021-05-23] MEDS: Omeprazole 20 MG CAPSULE.DR PO (07:59)
[2021-05-23] MEDS: Aspirin 81 MG TAB.CHEW PO (08:00)
[2021-05-23] MEDS: levETIRAcetam 500 MG TABLET PO ×2 (08:00→21:07)
[2021-05-23] MEDS: Metoprolol Succinate ER 25 MG TAB.ER.24H 75 MG PO (08:00)
[2021-05-23] MEDS: Multivitamin TABLET 1 TAB PO (08:00)
[2021-05-23] MEDS: Apixaban 5 MG TABLET PO ×2 (08:00→21:07)
[2021-05-23] MEDS: Sertraline HCL 50 MG TABLET PO (08:00)
[2021-05-23] MEDS: Pentoxifylline ER 400 MG TABLET.ER PO ×2 (08:00→21:07)
[2021-05-23] MEDS: 0.9 % Sodium Chloride Flush 3 ML SYRINGE IVFLUSH ×3 (08:01→21:11)
[2021-05-23] MEDS: cloNIDine HCL 0.1 MG TABLET PO ×2 (08:14→21:07)
[2021-05-23 08:29] LABS: ~Hepatitis B Surface Antibody NONREACTIVE (Nonreactive)
[2021-05-23] MEDS: Albuterol/Iprat 2.5/0.5MG 3 ML AMPUL.NEB INHALE (08:47)
--- NOTE | 2021-05-23 09:50 | MHC.CM.PN ---
CM ATTEMPTED TO MEET W/PT HOWEVER PT W/RADIOLOGY AT BEDSIDE, CM TO REVISIT
--- NOTE | 2021-05-23 10:17 | MHC.CM.PN ---
IMM 05/23/21, EMR REVIEWED, PT ADMITTED W/PNA AND COPD EXAC, CM MET W/PT WHO IS A&O, PT REPORTS HE LIVES W/HIS , PT HAS NO DME AND NO HOME SERVICES, PT DENIES NEED FOR SERVICES ON D/C, PT VERIFIES PCP PINO WEBER AND HCP IS FANY CYR [phone], PT REPORTS HE IS FULLY VACCINATED FOR COVID AND RECEIVED 2 SHOTS AND A BOOSTER, PT DOES NOT RECALL NAME HOWEVER SAID IT WAS MADE IN [place] WHICH WOULD BE MODERNA. D/C PLAN: HOME NO SERVICES, FAMILY FOR TRANSPORT
[2021-05-23] MEDS: methylPREDNISolone Sod Succ 40 MG/ML VIAL IVPUSH (12:15)
--- NOTE | 2021-05-23 12:52 | HO.PM.IMPN ---
Subjective Subjective Date of Service: 05/23/21 Interval History: Coughing less and not as short of breath. On 3L O2 via NC. No chest pain. No fever. 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 Snorts heroin intermittently, last perhaps 1 wk ago. Review of Systems Review of Systems: Yes all other systems are reviewed and are negative Physical Exam Vital Signs: Vital Signs: Last Vital Signs Temp 97.3 F 05/23/21 11:25 Pulse 94 05/23/21 11:25 Resp 18 05/23/21 11:25 BP 117/58 L 05/23/21 11:25 Pulse Ox 92 05/23/21 11:25 BMI result Body Mass Index 22.2 Gen: in no acute distress HEENT: sclera anicteric, moist mucus membranes, thrush on tongue Neck: supple Lungs: diminished throughout Heart: regular rate and rhythm, no murmurs Abd: soft, non-tender, non-distended Ext: no edema Skin: warm/well-perfused Neuro: alert and oriented x3, no focal findings Psych: appropriate affect Objective Data Active Medications Acetaminophen (Acetaminophen 325 Mg Tablet) 650 mg PO Q6H PRN PRN Reason: Pain, Mild (Pain Scale 1-3) Albuterol Sulfate (Albuterol Sulfate (0.083%) 2.5 Mg/3 Ml Vial.Neb) 2.5 mg INHALE Q2H PRN PRN Reason: Shortness of Breath/Wheezing Albuterol/Ipratropium (Albuterol/Iprat 2.5/0.5mg 3 Ml Ampul.Neb) 3 ml INHALE RQ4H WHILE AWAKE [facility] Last Admin: 05/23/21 12:13 Dose: Not Given Documented by: LARISA Non-Admin Reason: Patient Asleep Amiodarone HCl (Amiodarone Hcl 200 Mg Tablet) 400 mg PO BID [facility] Last Admin: 05/23/21 07:59 Dose: 400 mg Documented by: RAHEL Apixaban (Apixaban 5 Mg Tablet) 5 mg PO BID [facility] Last Admin: 05/23/21 08:00 Dose: 5 mg Documented by: RAHEL Aspirin (Aspirin 81 Mg Tab.Chew) 81 mg PO DAILY [facility] Last Admin: 05/23/21 08:00 Dose: 81 mg Documented by: RAHEL Atorvastatin Calcium (Atorvastatin Calcium 40 Mg Tablet) 40 mg PO BEDTIME [facility] Last Admin: 05/22/21 22:14 Dose: 40 mg Documented by: MISTI Clonidine HCl (Clonidine Hcl 0.1 Mg Tablet) 0.1 mg PO BID [facility]; Protocol Last Admin: 05/23/21 08:14 Dose: 0.1 mg Documented by: RAHEL Clotrimazole (Clotrimazole 10 Mg Diana) 10 mg MUCOUS MEM 5XD [facility] Last Admin: 05/23/21 10:03 Dose: 10 mg Documented by: RAHEL Piperacillin Sod/Tazobactam (Sod 4.5 gm/ Sodium Chloride) 100 mls @ 200 mls/hr IV Q6H [facility] Last Infusion: 05/23/21 09:48 Dose: 0 mls/hr Documented by: RAHEL Vancomycin HCl 1,250 mg/ (Sodium Chloride) 250 mls @ 166.667 mls/hr IV Q24H [facility] Last Infusion: 05/22/21 20:23 Dose: 0 mls/hr Documented by: YOANNA Levetiracetam (Levetiracetam 500 Mg Tablet) 500 mg PO BID [facility] Last Admin: 05/23/21 08:00 Dose: 500 mg Documented by: RAHEL Methylprednisolone Sodium Succinate (Methylprednisolone Sod Succ 40 Mg/Ml Vial) 40 mg IVPUSH Q12H [facility] Last Admin: 05/23/21 12:15 Dose: 40 mg Documented by: RAHEL Metoprolol Succinate (Metoprolol Succinate Er 25 Mg Tab.Er.24h) 75 mg PO DAILY [facility]; Protocol Last Admin: 05/23/21 08:00 Dose: 75 mg Documented by: RAHEL Multivitamins/Vitamin C (Multivitamin Tablet) 1 tab PO DAILY [facility] Last Admin: 05/23/21 08:00 Dose: 1 tab Documented by: RAHEL Nicotine Polacrilex (Nicotine Polacrilex 2 Mg Gum) 2 mg BUCCAL Q1H PRN PRN Reason: Nicotine Cravings Omeprazole (Omeprazole 20 Mg Capsule.Dr) 20 mg PO DAILY [facility] Last Admin: 05/23/21 07:59 Dose: 20 mg Documented by: RAHEL Ondansetron HCl (Ondansetron Hcl 4 Mg/2 Ml Vial) 4 mg IVPUSH Q8H PRN PRN Reason: Nausea and Vomiting Pentoxifylline (Pentoxifylline Er 400 Mg Tablet.Er) 400 mg PO BID [facility] Last Admin: 05/23/21 08:00 Dose: 400 mg Documented by: RAHEL Sertraline HCl (Sertraline Hcl 50 Mg Tablet) 50 mg PO DAILY [facility] Last Admin: 05/23/21 08:00 Dose: 50 mg Documented by: RAHEL Sodium Chloride (0.9 % Sodium Chloride Flush 3 Ml Syringe) 3 ml IVFLUSH QSHIFT [facility] Last Admin: 05/23/21 08:01 Dose: 3 ml Documented by: RAHEL Labs CBC & Chem 7: 05/23/21 05:29 05/23/21 05:29 Labs: Laboratory Results - last 24 hr 05/22/21 05/22/21 05/22/21 12:11 12:11 14:46 MCV MCH MCHC RDW Plt Count MPV Absolute Nucleated RBC Nucleated RBC % (auto) Anion Gap Estim Creat Clear Calc Estimated GFR Random Glucose Calcium Total Bilirubin AST ALT Alkaline Phosphatase Troponin I High Sens C-Reactive Protein 20.34 H B-Natriuretic Peptide Total Protein Albumin Procalcitonin 0.09 Respiratory Panel [place] See Note Adenovirus (Rapid PCR) Not Detected B.pert (TEM-PCR) Not Detected B.parapertussis DNA PCR Not Detected C. pneumoniae DNA (PCR) Not Detected Coronavirus OC43 (PCR) Not Detected Coronavirus HKU1 (PCR) Not Detected Coronavirus 229E (PCR) Not Detected Coronavirus NL63 (PCR) Not Detected Hep Bs Antigen Hep Bs Antibody Hep B Core Total Ab Hepatitis C Ab (EIA) HIV 1&2 Ab/P24 Ag 4thGn Human Metapneumovir PCR Not Detected Influenza A (RT-PCR) Not Detected Influenza B (RT-PCR) Not Detected M. pneumoniae (PCR) Not Detected Parainfluenza 1 (PCR) Not Detected Parainfluenza 2 (PCR) Not Detected Parainfluenza 3 (PCR) Not Detected Parainfluenza 4 (PCR) Not Detected RSV (PCR) Not Detected Entero/Rhino (PCR) Not Detected SARS-CoV-2 RNA (RT-PCR) Not Detected 05/22/21 05/23/21 05/23/21 15:38 05:29 05:29 MCV 84.0 MCH 28.9 MCHC 34.5 RDW 16.4 H Plt Count 237 MPV 9.4 Absolute Nucleated RBC 0.000 Nucleated RBC % (auto) 0.0 Anion Gap Estim Creat Clear Calc Estimated GFR Random Glucose Calcium Total Bilirubin AST ALT Alkaline Phosphatase Troponin I High Sens 3.8 C-Reactive Protein B-Natriuretic Peptide Total Protein Albumin Procalcitonin Respiratory Panel [place] Adenovirus (Rapid PCR) B.pert (TEM-PCR) B.parapertussis DNA PCR C. pneumoniae DNA (PCR) Coronavirus OC43 (PCR) Coronavirus HKU1 (PCR) Coronavirus 229E (PCR) Coronavirus NL63 (PCR) Hep Bs Antigen Negative Hep Bs Antibody NONREACTIVE Hep B Core Total Ab Nonreactive Hepatitis C Ab (EIA) Nonreactive HIV 1&2 Ab/P24 Ag 4thGn Nonreactive Human Metapneumovir PCR Influenza A (RT-PCR) Influenza B (RT-PCR) M. pneumoniae (PCR) Parainfluenza 1 (PCR) Parainfluenza 2 (PCR) Parainfluenza 3 (PCR) Parainfluenza 4 (PCR) RSV (PCR) Entero/Rhino (PCR) SARS-CoV-2 RNA (RT-PCR) 05/23/21 05/23/21 05:29 05:29 MCV MCH MCHC RDW Plt Count MPV Absolute Nucleated RBC Nucleated RBC % (auto) Anion Gap 11 L Estim Creat Clear Calc 83.3 Estimated GFR > 60 Random Glucose 173 H D Calcium 8.0 L Total Bilirubin 1.1 H AST 190 H ALT 197 H Alkaline Phosphatase 87 Troponin I High Sens C-Reactive Protein B-Natriuretic Peptide 726 H Total Protein 5.6 L Albumin 2.6 L Procalcitonin Respiratory Panel [place] Adenovirus (Rapid PCR) B.pert (TEM-PCR) B.parapertussis DNA PCR C. pneumoniae DNA (PCR) Coronavirus OC43 (PCR) Coronavirus HKU1 (PCR) Coronavirus 229E (PCR) Coronavirus NL63 (PCR) Hep Bs Antigen Hep Bs Antibody Hep B Core Total Ab Hepatitis C Ab (EIA) HIV 1&2 Ab/P24 Ag 4thGn Human Metapneumovir PCR Influenza A (RT-PCR) Influenza B (RT-PCR) M. pneumoniae (PCR) Parainfluenza 1 (PCR) Parainfluenza 2 (PCR) Parainfluenza 3 (PCR) Parainfluenza 4 (PCR) RSV (PCR) Entero/Rhino (PCR) SARS-CoV-2 RNA (RT-PCR) Microbiology Microbiology Results: Microbiology 05/22/21 12:11 Blood Culture - Preliminary Blood - Venous Assessment and Plan (1) Hypoxia: Status: Acute (2) Community acquired pneumonia: Status: Acute (3) Acute exacerbation of chronic obstructive airways disease: Status: Acute (4) Sepsis: Status: Acute Assessment and Plan: hospital d#2 66yo M with COPD not on home O2, CAD s/p CABG x2, combined systolic/diastolic HF, AF on apixaban, CVA without residual deficit, PAD, tobacco abuse [1.5 ppd], hx heroin + cocaine abuse, seizure disorder, possible VF arrest with status epilepticus back in Jan 2021 presented to his PCP's office with dyspnea and was noted to be hypoxic arrived here hypotensive and hypoxic but fluid-responsive admitted for sepsis from multifocal PNA # acute hypoxic respiratory failure - suppl O2 via NC, wean as tolerated # atypical PNA - PCT low, Covid-19 TIFFANIE and respiratory virus PCR panel negative, HIV negative - on vanco + pip/shameka d#2. follow BCx and if no MRSA [hx positive nasal swab] will narrow coverage to ceftriaxone + doxycycline tomorrow. trend PCT. urine antigens ? check respiratory virus panel.? given hx MRSA+ swab + risk factors, will treat broadly with vanco + pip/shameka, trend PCT, follow BCx, check UAgs, and recheck HIV status [celia in light of thrush and polysubstance abuse]. # COPD exacerbation - wean IV steroids, standing/prn nebs # sepsis - with fluid-responsive hypotension and no lactic acidosis # transaminasemia - suspect due to sepsis/ischemic hepatitis but abd US pending. HBV/HCV negative. recheck LFTs in AM # thrush - clotrimazole troches. HIV negative # AF - rate-controlled on metoprolol succinate - continue amiodarone - continue apixaban # CAD # PAD - continue pentoxyfilline, ASA, statin, metoprolol succinate # seizure disorder - continue levetiracteam # mood disorder - continue sertraline # opioid use disorder # cocaine abuse history - was on Suboxone in past but did not tolerate - pt guarded about history; obtained from - CARE Team + Addiction Medicine consults # tobacco abuse - NRT, counseling # VTE ppx - apixaban # dispo - anticipate home in 1-2d as hypoxia resolves Quality Stroke Does the patient have a stroke diagnosis?: No VTE Prior VTE?: No VTE Risk Level:: Medical - moderate - high VTE Device Contraindication: N/A - Device Ordered VTE Drug Contraindication: N/A - Med Ordered
--- NOTE | 2021-05-23 13:25 | MHC.RECOVSUP ---
Recovery Support note: Patient is a 66 year old French speaking male who presented to [facility] due to shortness of breath and was medically admitted. This parts data writer met with patient in to discuss heroin use and recovery supports. Patient reports using one bag of heroin once a day for the past two years. States he was with a friend who was using and that he was curious to see what it was like and has been using ever since. Patient reports he has never experienced withdrawal symptoms and that he does not have any withdrawal symptoms at this time. Patient also denies cravings. Encouraged patient to inform staff if he begins to experience withdrawal symptoms. Patient acknowledges the risk of overdose in using heroin and reports he does not want to continue using. Patient reports confidence in his ability to maintain abstinence after discharge. Encouraged patient to have a family member throw away heroin he has at home and for him to cease contact with his supplier if possible. Patient acknowledged. Patient reports no alcohol or drug use aside from heroin. Discussed medications for opiate use disorder and provided education on Suboxone. Discussed outpatient recovery supports with patient. Patient expressed interest in meeting with a high school academic coach while in the hospital. This parts data writer will introduce patient to a high school academic coach later today. Encouraged patient to inform staff if he would like to discuss his heroin use and recovery supports further. This parts data writer available as needed.
--- NOTE | 2021-05-23 13:35 | MHC.SL.SWA ---
Speech Pathologist Impression: Risk of Aspiration Oral Phase Dysphagia Risk of Aspiration Due to: History of Pneumonia Dysphasia Diet Status: No Change Liquid Consistency and Strategies for Safe Swallow: Liquid Intake Recommendation: Thin Liquid Intake Strategies: Small Sips Solid Food Consistency: Dietary Recommendations: Regular Additional Modifications to Solid Foods: Patient seen for bedside dysphagia evaluation. Patient was sleeping and immediately awoke upon [employer]GEANT's arrival. When [employer]GEANT looked into patient's mouth he had large whole pill pocketed under his tongue from earlier this morning. He was able to swallow the pill whole with a bite of applesauce. Patient denies difficulty swallowing. Patient was able to feed himself without any difficulty. No overt s/s of aspiration with consumption of solids and liquids. Note mildly prolonged mastication when eating hard solid, but with complete oral clearance with initial swallow. Recommend REGULAR solids, THIN liquids, and pills WHOLE in PUREE. [employer]GE[employer] to f/u 1x time to ensure tolerance. Oral Medication Intake: Whole with Puree Compensatory Strategies and Precautions to be Taken for Safe Swallow: Sitting Upright (90 deg) Small Bites and Sips Alternate Liquids/Solids Rate of Ingestion Change Supervision While Eating and Drinking for Safe Swallow: Intermittent Supervision Swallowing Recommended Treatments: Compens. Strategy Educat. Recommendation for Speech: Inpatient Speech Therapy Comment: [employer]GEANT to return for 1 f/u. Aquatic Life Laborer Clinican/Clinical Fellow: No Supervisory Statement: I have reviewed and agree with the student/clinical fellow's documentation: N/A Speech Language Pathologist: Radha Crews M.A., [facility]-[employer]
[2021-05-23] MEDS: vancomycin HCL 1,250 MG in 0.9 % Sodium Chloride 250 ML 166.67 MG IV (18:26)
--- NOTE | 2021-05-23 18:40 | MHC.RECOVSUP ---
Met with Pt. Explained what a women's basketball coach does in the ED.Pt states that he also uses with his . States that he wants to stop and also help his to stop too.We talked about his use and how he can prevent from using in the future.This women's basketball coach will bring information and resources. to Pt.
[2021-05-23] MEDS: Atorvastatin Calcium 40 MG TABLET PO (21:07)
[2021-05-24] VITALS (16 sets, daily range): BP systolic 94–161; BP diastolic 41–93; PULSE 60–122; RESP 15–36; TEMP 36–36.8; O2SAT 85–100
[2021-05-24] MEDS: Albuterol Sulfate (0.083%) 2.5 MG/3 ML VIAL.NEB INHALE (00:11)
[2021-05-24] MEDS: Piperacillin Sodium/Tazobactam 4.5 GM in 0.9 % Sodium Chloride 100 ML IV ×2 (04:09→09:13)
[2021-05-24 06:11] LABS: Hematocrit 39.6 % (42.0-52.0); Hemoglobin 13.7 g/dl (14.0-18.0); Mean Corpuscular HGB Conc 34.6 g/dl (31.0-36.0); Mean Corpuscular Hemoglobin 29.1 pg (27.0-33.0); Mean Corpuscular Volume 84.1 fL (80.0-98.0); Mean Platelet Volume 9.7 fL (9.4-12.4); Platelet Count 369 X10*3/uL (160-400); Red Blood Count 4.71 X10*6/uL (4.60-5.80); Red Cell Distribution Width 16.8 % (11.0-16.0)
[2021-05-24 06:22] LABS: White Blood Count 35.6 X10*3/uL (4.8-10.8)
[2021-05-24 06:38] LABS: Alanine Aminotransferase 320 U/L (0-40); Albumin Level 2.9 g/dL (3.5-5.0); Alkaline Phosphatase 113 U/L (39-117); Anion Gap 14 (12-20); Aspartate Amino Transferase 320 U/L (5-37); Bilirubin Total 1.2 mg/dL (0.0-1.0); Blood Urea Nitrogen 20 mg/dL (9-16); C Reactive Protein 8.59 mg/dL (< or = 0.50); Calcium 8.3 mg/dL (8.4-10.2); Carbon Dioxide 23 mmol/L (22-29); Chloride 108 mmol/L (96-108); Creatinine Clr Calc Pharmacy 71.2; Estimated Glomerular Filt Rate > 60; Glucose Random 138 mg/dL (60-115); Potassium 3.8 mmol/L (3.3-5.1); Sodium 141 mmol/L (135-145); Total Protein 6.2 g/dL (6.5-8.0)
[2021-05-24 08:32] LABS: Procalcitonin 0.09 ng/mL
[2021-05-24] MEDS: Albuterol/Iprat 2.5/0.5MG 3 ML AMPUL.NEB INHALE ×3 (08:54→19:38)
[2021-05-24] MEDS: Apixaban 5 MG TABLET PO ×2 (09:10→20:05)
[2021-05-24] MEDS: Multivitamin TABLET 1 TAB PO (09:10)
[2021-05-24] MEDS: cloNIDine HCL 0.1 MG TABLET PO ×2 (09:10→20:05)
[2021-05-24] MEDS: levETIRAcetam 500 MG TABLET PO ×2 (09:10→20:05)
[2021-05-24] MEDS: Aspirin 81 MG TAB.CHEW PO (09:10)
[2021-05-24] MEDS: Sertraline HCL 50 MG TABLET PO (09:10)
[2021-05-24] MEDS: Omeprazole 20 MG CAPSULE.DR PO (09:11)
[2021-05-24] MEDS: Metoprolol Succinate ER 25 MG TAB.ER.24H 75 MG PO (09:11)
[2021-05-24] MEDS: Pentoxifylline ER 400 MG TABLET.ER PO ×2 (09:11→20:05)
[2021-05-24] MEDS: Amiodarone HCL 200 MG TABLET 400 MG PO ×2 (09:13→20:05)
[2021-05-24] MEDS: 0.9 % Sodium Chloride Flush 3 ML SYRINGE IVFLUSH ×3 (09:13→20:06)
[2021-05-24] MEDS: Acetaminophen 325 MG TABLET 650 MG PO (10:20)
--- NOTE | 2021-05-24 14:00 | PC.NURSE ---
patient reports pain to left heel. states it has been there for 2 months. Area assessed and found unstagable pressure injury. blue air boot applied,patient states relief. documentation with a picture completed.md Mirna hood.
[2021-05-24] MEDS: methylPREDNISolone Sod Succ 40 MG/ML VIAL IVPUSH (15:08)
--- NOTE | 2021-05-24 15:14 | P.PNIM_ITS ---
Subjective Subjective Date of Service: 05/24/21 Interval History: Complaining of cough bringing up thick tirado phlegm continue to require 3.5 L of oxygen, is not on home O2, denies abdominal pain no nausea , no vomiting, no abdominal pain, no acute issues overnight. Review of Systems Review of Systems: Yes all other systems are reviewed and are negative Physical Exam Vital Signs: Vital Signs: Last Vital Signs Temp 97.1 F 05/24/21 11:52 Pulse 84 05/24/21 11:52 Resp 15 05/24/21 11:52 BP 112/78 05/24/21 11:52 Pulse Ox 93 05/24/21 11:52 BMI result Body Mass Index 22.2 Gen: Awake alert x3, in no acute distress HEENT: sclera anicteric, moist mucus membranes, thrush on tongue Neck: supple Lungs: No acute respiratory distress, coarse breath sounds Heart: regular rate and rhythm, no murmurs Abd: soft, non-tender, non-distended Ext: no edema Skin: warm/well-perfused Neuro: no focal findings Psych: appropriate affect Objective Data Active Medications Acetaminophen (Acetaminophen 325 Mg Tablet) 650 mg PO Q6H PRN PRN Reason: Pain, Mild (Pain Scale 1-3) Last Admin: 05/24/21 10:20 Dose: 650 mg Documented by: GIRISH Albuterol Sulfate (Albuterol Sulfate (0.083%) 2.5 Mg/3 Ml Vial.Neb) 2.5 mg INHALE Q2H PRN PRN Reason: Shortness of Breath/Wheezing Last Admin: 05/24/21 00:11 Dose: 2.5 mg Documented by: OSCAR Albuterol/Ipratropium (Albuterol/Iprat 2.5/0.5mg 3 Ml Ampul.Neb) 3 ml INHALE RQ4H WHILE AWAKE [facility] Last Admin: 05/24/21 08:54 Dose: 3 ml Documented by: LARISA Amiodarone HCl (Amiodarone Hcl 200 Mg Tablet) 400 mg PO BID [facility] Last Admin: 05/24/21 09:13 Dose: 400 mg Documented by: GIRISH Apixaban (Apixaban 5 Mg Tablet) 5 mg PO BID [facility] Last Admin: 05/24/21 09:10 Dose: 5 mg Documented by: GIRISH Aspirin (Aspirin 81 Mg Tab.Chew) 81 mg PO DAILY [facility] Last Admin: 05/24/21 09:10 Dose: 81 mg Documented by: GIRISH Atorvastatin Calcium (Atorvastatin Calcium 40 Mg Tablet) 40 mg PO BEDTIME [facility] Last Admin: 05/23/21 21:07 Dose: 40 mg Documented by: SENA Clonidine HCl (Clonidine Hcl 0.1 Mg Tablet) 0.1 mg PO BID [facility]; Protocol Last Admin: 05/24/21 09:10 Dose: 0.1 mg Documented by: GIRISH Clotrimazole (Clotrimazole 10 Mg Diana) 10 mg MUCOUS MEM 5XD [facility] Last Admin: 05/24/21 15:08 Dose: 10 mg Documented by: GIRISH Piperacillin Sod/Tazobactam (Sod 4.5 gm/ Sodium Chloride) 100 mls @ 200 mls/hr IV Q6H [facility] Last Infusion: 05/24/21 09:49 Dose: 0 mls/hr Documented by: GIRISH Vancomycin HCl 1,250 mg/ (Sodium Chloride) 250 mls @ 166.667 mls/hr IV Q24H [facility] Last Infusion: 05/23/21 21:19 Dose: 166.67 mls/hr Documented by: SENA Levetiracetam (Levetiracetam 500 Mg Tablet) 500 mg PO BID [facility] Last Admin: 05/24/21 09:10 Dose: 500 mg Documented by: GIRISH Methylprednisolone Sodium Succinate (Methylprednisolone Sod Succ 40 Mg/Ml Vial) 40 mg IVPUSH Q24H [facility] Last Admin: 05/24/21 15:08 Dose: 40 mg Documented by: GIRIHS Metoprolol Succinate (Metoprolol Succinate Er 25 Mg Tab.Er.24h) 75 mg PO DAILY [facility]; Protocol Last Admin: 05/24/21 09:11 Dose: 75 mg Documented by: GIRISH Multivitamins/Vitamin C (Multivitamin Tablet) 1 tab PO DAILY [facility] Last Admin: 05/24/21 09:10 Dose: 1 tab Documented by: GIRISH Nicotine Polacrilex (Nicotine Polacrilex 2 Mg Gum) 2 mg BUCCAL Q1H PRN PRN Reason: Nicotine Cravings Omeprazole (Omeprazole 20 Mg Capsule.Dr) 20 mg PO DAILY [facility] Last Admin: 05/24/21 09:11 Dose: 20 mg Documented by: GIRISH Ondansetron HCl (Ondansetron Hcl 4 Mg/2 Ml Vial) 4 mg IVPUSH Q8H PRN PRN Reason: Nausea and Vomiting Pentoxifylline (Pentoxifylline Er 400 Mg Tablet.Er) 400 mg PO BID [facility] Last Admin: 05/24/21 09:11 Dose: 400 mg Documented by: GIRISH Sertraline HCl (Sertraline Hcl 50 Mg Tablet) 50 mg PO DAILY [facility] Last Admin: 05/24/21 09:10 Dose: 50 mg Documented by: GIRISH Sodium Chloride (0.9 % Sodium Chloride Flush 3 Ml Syringe) 3 ml IVFLUSH QSHIFT [facility] Last Admin: 05/24/21 09:13 Dose: 3 ml Documented by: GIRISH Labs CBC & Chem 7: 05/24/21 05:49 05/24/21 05:49 Labs: Laboratory Results - last 24 hr 05/24/21 05/24/21 05/24/21 05:49 05:49 05:49 MCV 84.1 MCH 29.1 MCHC 34.6 RDW 16.8 H Plt Count 369 D MPV 9.7 Absolute Nucleated RBC 0.000 Nucleated RBC % (auto) 0.0 Smear Path Review SEE NOTE Anion Gap 14 Estim Creat Clear Calc 71.2 Estimated GFR > 60 Random Glucose 138 H Calcium 8.3 L Total Bilirubin 1.2 H AST 320 H ALT 320 H Alkaline Phosphatase 113 D C-Reactive Protein 8.59 H Total Protein 6.2 L Albumin 2.9 L Procalcitonin 0.09 Microbiology Microbiology Results: Microbiology 05/22/21 12:49 Blood Culture - Preliminary Blood - Venous No growth after 48 hours. 05/22/21 12:11 Blood Culture - Preliminary Blood - Venous No growth after 48 hours. Assessment and Plan (1) Community acquired pneumonia: Status: Acute (2) Acute exacerbation of chronic obstructive airways disease: Status: Acute (3) Sepsis: Status: Acute (4) Hypoxia: Status: Acute Assessment and Plan: hospital d#3 66yo M with COPD not on home O2, CAD s/p CABG x2, combined systolic/diastolic HF, AF on apixaban, CVA without residual deficit, PAD, tobacco abuse [1.5 ppd], hx heroin + cocaine abuse, seizure disorder, possible VF arrest with status epilepticus back in Jan 2021 presented to his PCP's office with dyspnea and was noted to be hypoxic,arrived here hypotensive and hypoxic but fluid-responsive, admitted for sepsis from ltifocal PNA # acute hypoxic respiratory failure - not on home oxygen, continue suppl O2 via NC, wean as tolerated # atypical PNA - PCT low, Covid-19 TIFFANIE and respiratory virus PCR panel negative, HIV negative - worsening WBC likely due to steroid - on vanco + pip/shameka d#3.? Blood cultures x2 negative times 48 hours, will narrow coverage to ceftriaxone + doxycycline continue supportive care with cough medications, analgesics # COPD exacerbation - improving, wean IV steroids, standing/prn nebs # sepsis - resolved, had fluid-responsive hypotension ,and no lactic acidosis # transaminasemia - LFTs trending up, suspect due to sepsis/ischemic hepatitis, no abdominal pain no nausea,no vomiting Abdominal ultrasound showed no acute abnormality, follow LFTs in AM # thrush - clotrimazole troches.? HIV negative # AF - rate-controlled on metoprolol succinate - continue amiodarone and apixaban # CAD # PAD - continue pentoxyfilline, ASA, statin, metoprolol succinate # seizure disorder - continue levetiracteam # mood disorder - continue sertraline # opioid use disorder history of cocaine abuse - was on Suboxone in past but did not tolerate - pt guarded about history; obtained from - seen by recovery team, denies withdrawal symptoms # tobacco abuse - NRT, counseling done # VTE ppx - apixaban # dispo - anticipate home in 1-2d as hypoxia resolves Quality Stroke Does the patient have a stroke diagnosis?: No VTE Prior VTE?: No VTE Risk Level:: Medical - moderate - high VTE Device Contraindication: N/A - Device Ordered VTE Drug Contraindication: N/A - Med Ordered
[2021-05-24] MEDS: Furosemide 40 MG/4 ML VIAL IVPUSH (15:55)
[2021-05-24] MEDS: methylPREDNISolone Sod Succ 125 MG/2 ML VIAL IVPUSH (15:56)
[2021-05-24 15:58] LABS: ABG HCO3 17 mmol/L (22-26); ABG pCO2 31 mmHg (32-45); ABG pCO2 TC 30 mmHg (32-45); ABG pH 7.34 (7.35-7.45); ABG pH TC 7.35 (7.35-7.45); ABG pO2 64 mmHg (83-108); ABG pO2 TC 60 (83-108)
[2021-05-24 15:58] LABS: ABG Refer to POC result
--- NOTE | 2021-05-24 16:03 | PM.EVENT ---
Event Note Date of Service: 05/24/21 Event Note: Rapid response called for patient since noted to to developed acute respiratory distress increased work of breathing On examination Patient awake alert appears to be in acute respiratory distress Neck no JVD Lungs bilateral diffuse wheezing Extremities no edema Assessment and plan Acute respiratory distress On IV antibiotics for bilateral pulmonary infiltrates COVID-19 negative normal respiratory viral panel Likely CHF exacerbation with prior history of combined diastolic and systolic heart failure, BNP elevated/ Will obtain stat ABGs, EKG, chest x-ray, check labs will give IV Lasix/IV Solumedrol, repeat echo Significantly elevated cbc this morning likely related to steroids and reactive Continue IV antibiotic Follow i/os Place patient on BiPAP follow clinical course, repeat VBG in 3-4 hours Follow-up Chest x-ray reviewed shows worsening of bilateral infiltrates/ABGs showed hypoxia, normal CO2 EKG showed atrial flutter with variable AV block On examination patient feeling better, lung exam improved, urinated greater than 300 mL Time spent greater than 30 minutes
[2021-05-24] MEDS: cefTRIAXone sodium 1 GM in 0.9 % Sodium Chloride 50 ML IV (16:20)
[2021-05-24] MEDS: Doxycycline Hyclate 100 MG in 0.9 % Sodium Chloride 250 ML 166.67 MG IV (16:20)
[2021-05-24 17:03] LABS: Vancomycin Trough 7.7 mcg/mL (10.0-20.0)
[2021-05-24] MEDS: guaiFENesin DM 100/10/5 ML 5 ML SYRUP 10 ML PO (20:02)
[2021-05-24] MEDS: Atorvastatin Calcium 40 MG TABLET PO (20:05)
[2021-05-25] VITALS (11 sets, daily range): BP systolic 100–122; BP diastolic 61–85; PULSE 100–123; RESP 8–21; TEMP 36.2–36.4; O2SAT 94–100
[2021-05-25] MEDS: Doxycycline Hyclate 100 MG in 0.9 % Sodium Chloride 250 ML 166.6 MG IV ×2 (04:12→16:11)
[2021-05-25 06:25] LABS: Basophils Percent Auto 0.1 % (0-2); Hematocrit 38.7 % (42.0-52.0); Hemoglobin 13.4 g/dl (14.0-18.0); Imm Gran Abs Auto 0.29 X10*3/uL (0.00-0.03); Imm Gran Pct Auto 1.3 % (0.0-0.4); Lymphocytes Absolute Auto 1.2 X10*3/uL (1.2-4.9); MANUAL DIFF FLAG SCAN; Mean Corpuscular HGB Conc 34.6 g/dl (31.0-36.0); Mean Corpuscular Hemoglobin 28.5 pg (27.0-33.0); Mean Corpuscular Volume 82.2 fL (80.0-98.0); Mean Platelet Volume 9.5 fL (9.4-12.4); Monocytes Absolute Auto 1.9 X10*3/uL (0.1-1.2); Neutrophils Absolute Auto 19.8 x10*3/uL (2.0-8.3); Neutrophils Percent Auto 85.6 % (45-73); Platelet Count 319 X10*3/uL (160-400); Red Blood Count 4.71 X10*6/uL (4.60-5.80); Red Cell Distribution Width 16.3 % (11.0-16.0); SCAN SMEAR FLAG 1; White Blood Count 23.1 X10*3/uL (4.8-10.8)
[2021-05-25 06:26] LABS: VBG Base Excess 5.2 mmol/L; VBG HCO3 29 mmol/L (22-26); VBG pCO2 39 mmHg; VBG pH 7.47 (7.32-7.43); VBG pO2 67 mmHg
[2021-05-25 06:27] LABS: Venous Blood Gas Refer to POC result
--- NOTE | 2021-05-25 06:39 | PC.NURSE ---
spoke with pts this morning gave update.
[2021-05-25 06:47] LABS: SLIDE REVIEW VERIFIED
[2021-05-25 06:55] LABS: Alanine Aminotransferase 1309 U/L (0-40); Albumin Level 2.6 g/dL (3.5-5.0); Alkaline Phosphatase 101 U/L (39-117); Aspartate Amino Transferase 1813 U/L (5-37); Bilirubin Direct 1.5 mg/dL (0.0-0.5); Bilirubin Total 1.9 mg/dL (0.0-1.0); Total Protein 5.5 g/dL (6.5-8.0)
--- NOTE | 2021-05-25 07:30 | CA_ITS ---
Transthoracic Echocardiogram Patient (Last, First, Middle): Phan Boateng C Gender: Male Date of : 1955 Age: 66 Procedure Date: 05/25/2021 Procedure Type: Transthoracic Echocardiogram Location: S3E Height: 167.64 cm Weight: 62.14 kg BSA: 1.70 m2 Heart Rate: bpm BP: 117 / 75 mmHg Portfolio Strategist: ROMÁN Referring MD: Perlita Bradley MD Symptoms: sob elevated bnp Study Quality: Fair ECG Rhythm: Undetermined Conclusions: - The left ventricular systolic function is severely decreased. The calculated ejection fraction is 25% by biplane method. - There is moderate to severely decreased right ventricular systolic function. - No obvious valvular pathology seen on this study. Findings Left Ventricle Normal left ventricular cavity size. There is mildly increased left ventricular wall thickness. The left ventricular systolic function is severely decreased. The calculated ejection fraction is 25% by biplane method. There is severe global hypokinesis. Diastolic function is indeterminate on the basis of available data. Wall Motion Rest Echo Findings The inferoseptal wall, the mid inferior, and mid anteroseptal segments are akinetic. Right Ventricle Normal right ventricular cavity size. There is moderate to severely decreased right ventricular systolic function. Atria The left atrium is mildly dilated. The right atrium is normal in size. Aortic Valve There is a normal trileaflet aortic valve. There is no aortic valve stenosis. There is no aortic valve regurgitation. Mitral Valve The mitral valve appears normal. There is trace mitral valve regurgitation. There is no mitral valve stenosis. Pulmonic Valve The pulmonic valve was not well visualized. Tricuspid Valve Normal tricuspid valve structure. There is trace tricuspid valve regurgitation. The pulmonary artery systolic pressure is normal. Great Vessels The aortic annulus, sinuses of valsalva, and asc aorta are normal in size. Venous The inferior vena cava is normal in size and collapses greater than 50% with inspiration. Pericardium/Pleural There is no evidence of pericardial effusion. Prior Study Comparison Changes noted compared to prior study dated: 01/25/2021. LVEF lower. Recommendations, Care & Conclusions No obvious valvular pathology seen on this study. Measurements 2D Linear Measurements IVSd: 1.03 0.6-0.9/0.6-1.0 cm LVIDd: 4.44 3.9-5.3/4.2-5.9 cm LVIDd Index: 2.61 2.4-3.2/2.2-3.1 cm/m2 LVIDs: 3.67 2.0-3.6 cm LVPWd: 1.03 0.7-1.1 cm Ao Root: 3.50 2.1-3.5 cm LA Diam: 4.10 2.7-3.8/3.0-4.0 cm LAIDs Index: 2.41 1.5-2.3 cm/m2 LV Mass: 194.58 67-162/88-224 g LV Mass Index: 114.46 43-95/49-115 g/m2 LVOT Diam: 2.10 3.0+(-)1.3 cm 2D Systolic Function EF 4C: 23.90 >55% EF 2C: 27.20 >55% EF BiP: 24.60 >55% Aortic Valve AoV Pk Lebron: 0.89 AoV Mn Lebron: 0.56 AoV VTI: 0.13 AoV Pk Grad: 3.00 Aov Mn Grad: 2.00 ISIDRO Cont.VTI: 2.64 LVOT LVOT Pk Lebron: 0.69 LVOT Mn Lebron: 0.44 LVOT VTI: 0.10 LVOT Pk Grad: 2.00 LVOT Mn Grad: 1.00 LVOT Diam: 2.10 LVOT Area: 3.46 Right Ventricle TAPSE (mm): 5.98 TVS' Lebron: 1.06 Tricuspid Valve TR Pk Lebron: 1.83 TR Pk Grad: 13.00 RA Press: 3.00 RVSP: 16.00 Great Vessels Aorta Ao Root-2D: 3.50 2.0-3.7 cm Ao Asc: 3.00 2.1-3.4 cm Updated in Other Vendor System with Status of Final Timbo Baker MD electronically signed on 05/25/2021 4:37:31 PM with status of Final
[2021-05-25] MEDS: Albuterol/Iprat 2.5/0.5MG 3 ML AMPUL.NEB INHALE ×2 (07:58→21:01)
[2021-05-25] MEDS: Furosemide 40 MG/4 ML VIAL IVPUSH ×2 (08:56→18:59)
[2021-05-25] MEDS: Sertraline HCL 50 MG TABLET PO (08:56)
[2021-05-25] MEDS: Pentoxifylline ER 400 MG TABLET.ER PO ×2 (08:56→20:36)
[2021-05-25] MEDS: Apixaban 5 MG TABLET PO ×2 (08:56→20:36)
[2021-05-25] MEDS: cloNIDine HCL 0.1 MG TABLET PO ×2 (08:56→20:35)
[2021-05-25] MEDS: guaiFENesin DM 100/10/5 ML 5 ML SYRUP 10 ML PO ×3 (08:56→20:38)
[2021-05-25] MEDS: Omeprazole 20 MG CAPSULE.DR PO (08:56)
[2021-05-25] MEDS: levETIRAcetam 500 MG TABLET PO ×2 (08:56→20:35)
[2021-05-25] MEDS: Multivitamin TABLET 1 TAB PO (08:56)
[2021-05-25] MEDS: Metoprolol Succinate ER 25 MG TAB.ER.24H 75 MG PO (08:56)
[2021-05-25] MEDS: 0.9 % Sodium Chloride Flush 3 ML SYRINGE IVFLUSH ×3 (08:57→20:36)
[2021-05-25] MEDS: Aspirin 81 MG TAB.CHEW PO (08:57)
[2021-05-25] MEDS: Amiodarone HCL 200 MG TABLET 400 MG PO (08:57)
[2021-05-25 09:04] LABS: B Type Natriuretic Peptide 674 pg/mL (<100)
--- NOTE | 2021-05-25 11:19 | PM.CNCAR ---
History of Present Illness History of Present Illness Date of Service: 05/25/21 Chief complaint: pna Narrative: This is a cardiology consultation due to elevated cardiac BNP and shortness of breath. He has a history of coronary disease, previous bypass surgery, paroxysmal atrial fibrillation as well as peripheral vascular disease based on prior consultations. Also noted to have congestive heart failure. There is a history of heroin and cocaine use. He states he still uses heroin and last use was just a few days ago preceding admission. Unclear if he still take cocaine and denying it at this time but can not be sure. He was recently admitted few months back with status epilepticus and also ventricular fibrillation cardiac arrest. It seems he was fluid resuscitated but eventually discharged himself against medical advice. Current admission is because of worsening fatigue, myalgias, shortness of breath and cough. In this context, we were asked to see him. Patient states he does not have any palpitations or angina or any specific cardiac symptoms apart from the above. No clear leg swelling either. COVID negative so far. Review of Systems Review of Systems: Yes all other systems are reviewed and are negative Cardiovascular: Cardiovascular: Reports as per HPI, Reports no additional cardiovascular complaints, Denies acrocyanosis, Denies cool extremities, Denies painful fingertips, Denies chest pain, Denies chest pain at rest, Denies diaphoresis, Denies syncope, Denies irregular heart rhythm, Denies claudication, Denies leg edema, Denies lightheadedness, Denies palpitations and Reports dyspnea Respiratory: Respiratory: Reports dyspnea Neurologic: Denies syncope Endocrine: Endocrine: Denies palpitations [facility] Past Medical History Medical History Acute combined systolic and diastolic congestive heart failure Atrial fibrillation Atrial flutter Atrial flutter CAD (coronary artery disease) Cardiac arrest Cardiomyopathy CHF (congestive heart failure) Cocaine abuse with intoxication COPD (chronic obstructive pulmonary disease) Coronary bypass graft mechanical complication Drug abuse 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 Heroin use History of hemorrhagic cerebrovascular accident (CVA) without residual deficits Hyperlipemia Opioid use disorder Paroxysmal atrial fibrillation PVD (peripheral vascular disease) Seizure disorder Seizure-like activity Subclavian arterial stenosis Toxic encephalopathy Family History Pertinent family history: No relevant history. Surgical History Surgical History S/P CABG x 2 Social History Social History Household Members: Spouse Housing: House Do you presently have visiting nurse or other home services: No Unable to assess alcohol history related to: Unable to respond Alcohol intake: former Patient Tobacco Use Status: Current everyday Tobacco user Tobacco use type: Cigarette Cigarette Packs Per Day: 2 Cigarettes Per Day: 40.0 e-Cigarette/Vaping Use: Never Used Second Hand Smoke Exposure: Yes Substance Use Type: Heroin Advance Directives Date on File: 01/12/21 service: No Current occupational status: retired [employer] Allergies Allergy/AdvReac Type Severity Reaction Status Date / Time No Known Allergies Allergy Unverified 01/12/21 01:03 Active Medications: Current Medications Acetaminophen (Acetaminophen 325 Mg Tablet) 650 mg PO Q6H PRN PRN Reason: Pain, Mild (Pain Scale 1-3) Last Admin: 05/24/21 10:20 Dose: 650 mg Documented by: Albuterol Sulfate (Albuterol Sulfate (0.083%) 2.5 Mg/3 Ml Vial.Neb) 2.5 mg INHALE Q2H PRN PRN Reason: Shortness of Breath/Wheezing Last Admin: 05/24/21 00:11 Dose: 2.5 mg Documented by: Albuterol/Ipratropium (Albuterol/Iprat 2.5/0.5mg 3 Ml Ampul.Neb) 3 ml INHALE RQ4H WHILE AWAKE [facility] Last Admin: 05/25/21 07:58 Dose: 3 ml Documented by: Amiodarone HCl (Amiodarone Hcl 200 Mg Tablet) 400 mg PO BID [facility] Last Admin: 05/25/21 08:57 Dose: 400 mg Documented by: Apixaban (Apixaban 5 Mg Tablet) 5 mg PO BID [facility] Last Admin: 05/25/21 08:56 Dose: 5 mg Documented by: Aspirin (Aspirin 81 Mg Tab.Chew) 81 mg PO DAILY [facility] Last Admin: 05/25/21 08:57 Dose: 81 mg Documented by: Atorvastatin Calcium (Atorvastatin Calcium 40 Mg Tablet) 40 mg PO BEDTIME [facility] Last Admin: 05/24/21 20:05 Dose: 40 mg Documented by: Clonidine HCl (Clonidine Hcl 0.1 Mg Tablet) 0.1 mg PO BID [facility]; Protocol Last Admin: 05/25/21 08:56 Dose: 0.1 mg Documented by: Clotrimazole (Clotrimazole 10 Mg Diana) 10 mg MUCOUS MEM 5XD [facility] Last Admin: 05/25/21 08:59 Dose: 10 mg Documented by: Furosemide (Furosemide 40 Mg/4 Ml Vial) 40 mg IVPUSH BID@0900,1800 [facility]; Protocol Last Admin: 05/25/21 08:56 Dose: 40 mg Documented by: Guaifenesin/Dextromethorphan (Guaifenesin Dm 100/10/5 Ml 5 Ml Syrup) 10 ml PO TID [facility] Last Admin: 05/25/21 08:56 Dose: 10 ml Documented by: Ceftriaxone Sodium 1 gm/ (Sodium Chloride) 50 mls @ 100 mls/hr IV Q24H [facility] Last Infusion: 05/24/21 16:50 Dose: Infused Documented by: Doxycycline Hyclate 100 mg/ (Sodium Chloride) 250 mls @ 166.67 mls/hr IV Q12H [facility] Last Infusion: 05/25/21 06:21 Dose: Infused Documented by: Levetiracetam (Levetiracetam 500 Mg Tablet) 500 mg PO BID [facility] Last Admin: 05/25/21 08:56 Dose: 500 mg Documented by: Methylprednisolone Sodium Succinate (Methylprednisolone Sod Succ 40 Mg/Ml Vial) 40 mg IVPUSH Q24H [facility] Last Admin: 05/24/21 15:08 Dose: 40 mg Documented by: Metoprolol Succinate (Metoprolol Succinate Er 25 Mg Tab.Er.24h) 75 mg PO DAILY [facility]; Protocol Last Admin: 05/25/21 08:56 Dose: 75 mg Documented by: Multivitamins/Vitamin C (Multivitamin Tablet) 1 tab PO DAILY [facility] Last Admin: 05/25/21 08:56 Dose: 1 tab Documented by: Nicotine Polacrilex (Nicotine Polacrilex 2 Mg Gum) 2 mg BUCCAL Q1H PRN PRN Reason: Nicotine Cravings Omeprazole (Omeprazole 20 Mg Capsule.Dr) 20 mg PO DAILY [facility] Last Admin: 05/25/21 08:56 Dose: 20 mg Documented by: Ondansetron HCl (Ondansetron Hcl 4 Mg/2 Ml Vial) 4 mg IVPUSH Q8H PRN PRN Reason: Nausea and Vomiting Pentoxifylline (Pentoxifylline Er 400 Mg Tablet.Er) 400 mg PO BID [facility] Last Admin: 05/25/21 08:56 Dose: 400 mg Documented by: Sertraline HCl (Sertraline Hcl 50 Mg Tablet) 50 mg PO DAILY [facility] Last Admin: 05/25/21 08:56 Dose: 50 mg Documented by: Sodium Chloride (0.9 % Sodium Chloride Flush 3 Ml Syringe) 3 ml IVFLUSH QSHIFT [facility] Last Admin: 05/25/21 08:57 Dose: 3 ml Documented by: Home Medications Medication Instructions Recorded Confirmed Last Taken Type apixaban 5 mg tablet (Eliquis) 5 mg PO BID 01/12/21 05/22/21 05/21/21 History aspirin 81 mg tablet 81 mg PO DAILY 01/12/21 05/22/21 05/21/21 History atorvastatin 40 mg tablet 40 mg PO BEDTIME 01/12/21 05/22/21 05/21/21 History clonidine HCl 0.1 mg tablet 0.1 mg PO BID 01/12/21 05/22/21 05/21/21 History omeprazole 20 mg capsule,delayed 20 mg PO DAILY 01/12/21 05/22/21 05/21/21 History release pentoxifylline 400 mg 1 tab PO BID 01/18/21 05/22/21 05/21/21 History tablet,extended release B-complex with vitamin C 1 tab PO DAILY 05/22/21 05/22/21 05/21/21 History multivitamin 1 tab PO DAILY 05/22/21 05/22/21 05/21/21 History sertraline 50 mg tablet 1 tab PO DAILY 05/22/21 05/22/21 05/21/21 History vitamin E 1 tab PO DAILY 05/22/21 05/22/21 05/21/21 History Physical Exam Vital Signs: Vital Signs: Last Vital Signs Temp 97.1 F 05/25/21 08:00 Pulse 100 05/25/21 08:00 Resp 20 05/25/21 08:06 BP 119/85 05/25/21 08:00 Pulse Ox 100 05/25/21 08:00 BMI result Body Mass Index 22.2 Const: General: no acute distress HENMT: Other: Unremarkable Neck: Neck: Yes normal visual inspection Chest: Chest palpation & inspection: normal inspection of the chest Resp: Auscultation: no crackles and no wheezes Cardio: Palpation: normal PMI Heart sounds: S1 normal heart sound present, S2 normal heart sound present, no gallops, no murmurs and no rubs GI: Palpation (GI): Soft to palpation Back/Spine/Pelvis: Other: unremarkable Skin: Lesions: other Neuro: Cranial nerves: Yes Other cranial nerve findings present Extrem: General: Yes other Psych: Mental Status: other Objective Labs and Meds Result diagrams: 05/25/21 06:16 05/24/21 05:49 Lab results: Laboratory Results - last 24 hr 05/24/21 05/24/21 05/25/21 15:52 16:33 06:16 WBC 23.1 H RBC 4.71 Hgb 13.4 L Hct 38.7 L MCV 82.2 MCH 28.5 MCHC 34.6 RDW 16.3 H Plt Count 319 MPV 9.5 Immature Gran % (Auto) 1.3 H Neut % (Auto) 85.6 H Lymph % (Auto) 5.0 L [place] % (Auto) 8.0 Eos % (Auto) 0.0 Baso % (Auto) 0.1 Lymph # (Auto) 1.2 [place] # (Auto) 1.9 H Eos # (Auto) 0.0 Baso # (Auto) 0.0 Abs Immat Gran (auto) 0.29 H Absolute Neuts (auto) 19.8 H Absolute Nucleated RBC 0.000 Nucleated RBC % (auto) 0.0 Smear Tech's Comments VERIFIED O2 Saturation 85.0 ABG pH at Pt Temp 7.34 L ABG pH (Temp Correct) 7.35 ABG pCO2 at Pt Temp 31 L ABG pCO2 (Temp Corrct 30 L ABG pO2 at Pt Temp 64 L ABG pO2 (Temp Correct 60 L ABG HCO3 17 L ABG Base Excess (Actual) -7.0 VBG pH VBG pCO2 VBG pO2 VBG HCO3 VBG O2 Saturation VBG Base Excess Total Bilirubin Direct Bilirubin AST ALT Alkaline Phosphatase B-Natriuretic Peptide Total Protein Albumin Vancomycin Trough 7.7 L 05/25/21 05/25/21 05/25/21 06:16 06:16 06:20 WBC RBC Hgb Hct MCV MCH MCHC RDW Plt Count MPV Immature Gran % (Auto) Neut % (Auto) Lymph % (Auto) [place] % (Auto) Eos % (Auto) Baso % (Auto) Lymph # (Auto) [place] # (Auto) Eos # (Auto) Baso # (Auto) Abs Immat Gran (auto) Absolute Neuts (auto) Absolute Nucleated RBC Nucleated RBC % (auto) Smear Tech's Comments O2 Saturation ABG pH at Pt Temp ABG pH (Temp Correct) ABG pCO2 at Pt Temp ABG pCO2 (Temp Corrct ABG pO2 at Pt Temp ABG pO2 (Temp Correct ABG HCO3 ABG Base Excess (Actual) VBG pH 7.47 H VBG pCO2 39 VBG pO2 67 VBG HCO3 29 H VBG O2 Saturation 90.0 VBG Base Excess 5.2 Total Bilirubin 1.9 H Direct Bilirubin 1.5 H AST 1813 H ALT 1309 H Alkaline Phosphatase 101 B-Natriuretic Peptide 674 H Total Protein 5.5 L Albumin 2.6 L Vancomycin Trough ECG Interpretation: EKG from 22 of May with atrial flutter and rate of 89/Min. Left ventricular hypertrophy. Cannot exclude old septal infarct. In prior EKG from January, he was in sinus rhythm. Imaging Radiologist's impression: Impressions Chest X-Ray 05/24/21 16:15 IMPRESSION: Diffuse bilateral patchy airspace opacities increased from prior exam 05/22/2021. Assessment and Plan (1) Acute heart failure: Status: Acute (2) Elevated liver enzymes: Status: Acute (3) Atherosclerotic cardiovascular disease: Status: Acute (4) Atrial flutter with rapid ventricular response: Status: Acute Based on last echocardiogram from January, he had LVEF of 40-45% with wall motion abnormalities. We can recheck to see if anything changed. In the labs, white cell count 23, elevated. LFTs are markedly high. AST 1813. ALT 1309. Total bilirubin 1.9. High sensitivity troponin within normal limits. Cardiac BNP 674. Chest x-ray reported had diffuse bilateral patchy opacities. Overall, doubt cardiac etiology as the primary issue. More likely infectious or noninfectious pulmonary pathology might be the primary problem. Due to abnormal LFTs, we can stop the amiodarone. It seems he still on phone mg b.i.d. per medication list. Also stop statins and any other medication that can affect LFTs. We can use beta-blockers for rate control. May add digoxin if necessary. If LFTs continue to climb, may need to hold anticoagulation to avoid bleeding. Will follow up with you. Procedures Date of Service Date of Service: 05/25/21
[2021-05-25] MEDS: methylPREDNISolone Sod Succ 40 MG/ML VIAL IVPUSH (12:59)
[2021-05-25 13:28] LABS: Appearance Urine HAZY; Color Urine YELLOW; Glucose Urine UA NEG (NEG); Leukocyte Esterase Urine NEG (NEG); Nitrite Urine NEG (NEG); PH 7.5 (5.0-8.0); Urine Blood NEG (NEG); Urine Ketones NEG (NEG); Urine Protein NEG (NEG-TRACE)
[2021-05-25 13:35] LABS: Amphetamine Screen Urine Not Detected (Not Detect); Barbiturates, Urine Not Detected (Not Detect); Benzodiazepines Screen Urine Not Detected (Not Detect); Cannabinoid Screen Urine Not Detected (Not Detect); Cocaine Screen Urine Not Detected (Not Detect); Fentanyl, urine POSITIVE (Not Detect); Opiate Screen Urine Not Detected (Not Detect); Phencyclidine Screen Urine Not Detected (Not Detect)
--- NOTE | 2021-05-25 13:56 | MHC.SL.SWA ---
Speech Pathologist Impression: Risk of Aspiration Oral Phase Dysphagia Risk of Aspiration Due to: History of Pneumonia Dysphasia Diet Status: No Change Liquid Consistency and Strategies for Safe Swallow: Liquid Intake Recommendation: Thin Liquid Intake Strategies: Small Sips Solid Food Consistency: Dietary Recommendations: Regular Additional Modifications to Solid Foods: Recommend continue REGULAR solids, THIN liquids, and pills WHOLE in PUREE. Aspiration precautions apply. FNP to f/u 1x time w/ RN to ensure tolerance. Oral Medication Intake: WHOLE with Puree Compensatory Strategies and Precautions to be Taken for Safe Swallow: Sitting Upright (90 deg) Small Bites and Sips Alternate Liquids/Solids Rate of Ingestion Change Supervision While Eating and Drinking for Safe Swallow: Total Supervision (1:1) Swallowing Recommended Treatments: Compens. Strategy Educat. Recommendation for Speech: Inpatient Speech Therapy Lead Massage Therapist Clinican/Clinical Fellow: No Supervisory Statement: I have reviewed and agree with the student/clinical fellow's documentation: N/A Speech Language Pathologist: Radha Crews M.A., CCC-FNP
--- NOTE | 2021-05-25 15:55 | HO.PM.IMPN ---
Subjective Subjective Date of Service: 05/25/21 Interval History: Feeling better this morning, denies shortness of breath, no chest pain, denies orthopnea, no pnd, denies nausea, vomiting or abdominal pain, no other acute issues overnight. Review of Systems Review of Systems: Yes all other systems are reviewed and are negative Physical Exam Vital Signs: Vital Signs: Last Vital Signs Temp 97.5 F 05/25/21 15:36 Pulse 118 H 05/25/21 15:36 Resp 19 05/25/21 15:36 BP 122/67 05/25/21 15:36 Pulse Ox 99 05/25/21 15:36 BMI result Body Mass Index 22.2 Gen:? Awake alert x3, no acute distress Neck: supple, no jvd Lungs:? No acute respiratory distress, clear lungs, few rales rt base Heart: irregular rate and rhythm, no murmurs Abd: soft, non-tender, non-distended Ext: no edema Skin: warm/well-perfused Neuro:? Awake alert, non focal Psych: appropriate affect Objective Data Active Medications Acetaminophen (Acetaminophen 325 Mg Tablet) 650 mg PO Q6H PRN PRN Reason: Pain, Mild (Pain Scale 1-3) Last Admin: 05/24/21 10:20 Dose: 650 mg Documented by: GIRISH Albuterol Sulfate (Albuterol Sulfate (0.083%) 2.5 Mg/3 Ml Vial.Neb) 2.5 mg INHALE Q2H PRN PRN Reason: Shortness of Breath/Wheezing Last Admin: 05/24/21 00:11 Dose: 2.5 mg Documented by: OSCAR Albuterol/Ipratropium (Albuterol/Iprat 2.5/0.5mg 3 Ml Ampul.Neb) 3 ml INHALE RQ4H WHILE AWAKE [facility] Last Admin: 05/25/21 12:26 Dose: Not Given Documented by: KARMEN Non-Admin Reason: pt HR 135 not given Apixaban (Apixaban 5 Mg Tablet) 5 mg PO BID [facility] Last Admin: 05/25/21 08:56 Dose: 5 mg Documented by: GIRISH Clonidine HCl (Clonidine Hcl 0.1 Mg Tablet) 0.1 mg PO BID [facility]; Protocol Last Admin: 05/25/21 08:56 Dose: 0.1 mg Documented by: GIRISH Clotrimazole (Clotrimazole 10 Mg Diana) 10 mg MUCOUS MEM 5XD [facility] Last Admin: 05/25/21 12:59 Dose: 10 mg Documented by: GIRISH Furosemide (Furosemide 40 Mg/4 Ml Vial) 40 mg IVPUSH BID@0900,1800 [facility]; Protocol Last Admin: 05/25/21 08:56 Dose: 40 mg Documented by: GIRISH Guaifenesin/Dextromethorphan (Guaifenesin Dm 100/10/5 Ml 5 Ml Syrup) 10 ml PO TID [facility] Last Admin: 05/25/21 08:56 Dose: 10 ml Documented by: GIRISH Ceftriaxone Sodium 1 gm/ (Sodium Chloride) 50 mls @ 100 mls/hr IV Q24H [facility] Last Infusion: 05/24/21 16:50 Dose: 0 mls/hr Documented by: GIRISH Doxycycline Hyclate 100 mg/ (Sodium Chloride) 250 mls @ 166.67 mls/hr IV Q12H [facility] Last Infusion: 05/25/21 06:21 Dose: 166.6 mls/hr Documented by: SENA Levetiracetam (Levetiracetam 500 Mg Tablet) 500 mg PO BID [facility] Last Admin: 05/25/21 08:56 Dose: 500 mg Documented by: GIRISH Methylprednisolone Sodium Succinate (Methylprednisolone Sod Succ 40 Mg/Ml Vial) 40 mg IVPUSH Q24H [facility] Last Admin: 05/25/21 12:59 Dose: 40 mg Documented by: GIRISH Metoprolol Succinate (Metoprolol Succinate Er 25 Mg Tab.Er.24h) 75 mg PO DAILY [facility]; Protocol Last Admin: 05/25/21 08:56 Dose: 75 mg Documented by: GIRISH Multivitamins/Vitamin C (Multivitamin Tablet) 1 tab PO DAILY [facility] Last Admin: 05/25/21 08:56 Dose: 1 tab Documented by: GIRISH Nicotine Polacrilex (Nicotine Polacrilex 2 Mg Gum) 2 mg BUCCAL Q1H PRN PRN Reason: Nicotine Cravings Omeprazole (Omeprazole 20 Mg Capsule.Dr) 20 mg PO DAILY [facility] Last Admin: 05/25/21 08:56 Dose: 20 mg Documented by: GIRISH Ondansetron HCl (Ondansetron Hcl 4 Mg/2 Ml Vial) 4 mg IVPUSH Q8H PRN PRN Reason: Nausea and Vomiting Pentoxifylline (Pentoxifylline Er 400 Mg Tablet.Er) 400 mg PO BID [facility] Last Admin: 05/25/21 08:56 Dose: 400 mg Documented by: GIRISH Sertraline HCl (Sertraline Hcl 50 Mg Tablet) 50 mg PO DAILY [facility] Last Admin: 05/25/21 08:56 Dose: 50 mg Documented by: GIRISH Sodium Chloride (0.9 % Sodium Chloride Flush 3 Ml Syringe) 3 ml IVFLUSH QSHIFT [facility] Last Admin: 05/25/21 08:57 Dose: 3 ml Documented by: GIRISH Labs CBC & Chem 7: 05/25/21 06:16 05/24/21 05:49 Labs: Laboratory Results - last 24 hr 05/24/21 05/24/21 05/25/21 15:52 16:33 06:16 MCV 82.2 MCH 28.5 MCHC 34.6 RDW 16.3 H Plt Count 319 MPV 9.5 Immature Gran % (Auto) 1.3 H Neut % (Auto) 85.6 H Lymph % (Auto) 5.0 L [place] % (Auto) 8.0 Eos % (Auto) 0.0 Baso % (Auto) 0.1 Lymph # (Auto) 1.2 [place] # (Auto) 1.9 H Eos # (Auto) 0.0 Baso # (Auto) 0.0 Abs Immat Gran (auto) 0.29 H Absolute Neuts (auto) 19.8 H Absolute Nucleated RBC 0.000 Nucleated RBC % (auto) 0.0 Smear Tech's Comments VERIFIED O2 Saturation 85.0 ABG pH at Pt Temp 7.34 L ABG pH (Temp Correct) 7.35 ABG pCO2 at Pt Temp 31 L ABG pCO2 (Temp Corrct 30 L ABG pO2 at Pt Temp 64 L ABG pO2 (Temp Correct 60 L ABG HCO3 17 L ABG Base Excess (Actual) -7.0 VBG pH VBG pCO2 VBG pO2 VBG HCO3 VBG O2 Saturation VBG Base Excess Total Bilirubin Direct Bilirubin AST ALT Alkaline Phosphatase B-Natriuretic Peptide Total Protein Albumin Urine Color Urine Appearance Urine pH Ur Specific [place] Urine Protein Urine Glucose (UA) Urine Ketones Urine Blood Urine Nitrite Ur Leukocyte Esterase Vancomycin Trough 7.7 L Urine Opiates Screen Urine Fentanyl Screen Ur Barbiturates Screen Ur Phencyclidine Scrn Ur Amphetamines Screen U Benzodiazepines Scrn Urine Cocaine Screen U Marijuana (THC) Screen 05/25/21 05/25/21 05/25/21 06:16 06:16 06:20 MCV MCH MCHC RDW Plt Count MPV Immature Gran % (Auto) Neut % (Auto) Lymph % (Auto) [place] % (Auto) Eos % (Auto) Baso % (Auto) Lymph # (Auto) [place] # (Auto) Eos # (Auto) Baso # (Auto) Abs Immat Gran (auto) Absolute Neuts (auto) Absolute Nucleated RBC Nucleated RBC % (auto) Smear Tech's Comments O2 Saturation ABG pH at Pt Temp ABG pH (Temp Correct) ABG pCO2 at Pt Temp ABG pCO2 (Temp Corrct ABG pO2 at Pt Temp ABG pO2 (Temp Correct ABG HCO3 ABG Base Excess (Actual) VBG pH 7.47 H VBG pCO2 39 VBG pO2 67 VBG HCO3 29 H VBG O2 Saturation 90.0 VBG Base Excess 5.2 Total Bilirubin 1.9 H Direct Bilirubin 1.5 H AST 1813 H ALT 1309 H Alkaline Phosphatase 101 B-Natriuretic Peptide 674 H Total Protein 5.5 L Albumin 2.6 L Urine Color Urine Appearance Urine pH Ur Specific [place] Urine Protein Urine Glucose (UA) Urine Ketones Urine Blood Urine Nitrite Ur Leukocyte Esterase Vancomycin Trough Urine Opiates Screen Urine Fentanyl Screen Ur Barbiturates Screen Ur Phencyclidine Scrn Ur Amphetamines Screen U Benzodiazepines Scrn Urine Cocaine Screen U Marijuana (THC) Screen 05/25/21 05/25/21 13:08 13:08 MCV MCH MCHC RDW Plt Count MPV Immature Gran % (Auto) Neut % (Auto) Lymph % (Auto) [place] % (Auto) Eos % (Auto) Baso % (Auto) Lymph # (Auto) [place] # (Auto) Eos # (Auto) Baso # (Auto) Abs Immat Gran (auto) Absolute Neuts (auto) Absolute Nucleated RBC Nucleated RBC % (auto) Smear Tech's Comments O2 Saturation ABG pH at Pt Temp ABG pH (Temp Correct) ABG pCO2 at Pt Temp ABG pCO2 (Temp Corrct ABG pO2 at Pt Temp ABG pO2 (Temp Correct ABG HCO3 ABG Base Excess (Actual) VBG pH VBG pCO2 VBG pO2 VBG HCO3 VBG O2 Saturation VBG Base Excess Total Bilirubin Direct Bilirubin AST ALT Alkaline Phosphatase B-Natriuretic Peptide Total Protein Albumin Urine Color YELLOW Urine Appearance HAZY Urine pH 7.5 Ur Specific [place] 1.010 Urine Protein NEG Urine Glucose (UA) NEG Urine Ketones NEG Urine Blood NEG Urine Nitrite NEG Ur Leukocyte Esterase NEG Vancomycin Trough Urine Opiates Screen Not Detected Urine Fentanyl Screen POSITIVE H Ur Barbiturates Screen Not Detected Ur Phencyclidine Scrn Not Detected Ur Amphetamines Screen Not Detected U Benzodiazepines Scrn Not Detected Urine Cocaine Screen Not Detected U Marijuana (THC) Screen Not Detected Microbiology Microbiology Results: Microbiology 05/22/21 12:49 Blood Culture - Preliminary Blood - Venous No growth after 48 hours. 05/22/21 12:11 Blood Culture - Preliminary Blood - Venous No growth after 48 hours. Assessment and Plan (1) Atrial flutter with rapid ventricular response: Status: Acute (2) Atherosclerotic cardiovascular disease: Status: Acute (3) Elevated liver enzymes: Status: Acute (4) Acute heart failure: Status: Acute (5) Acute exacerbation of chronic obstructive airways disease: Status: Acute (6) Hypoxia: Status: Acute (7) Community acquired pneumonia: Status: Acute (8) Sepsis: Status: Acute Assessment and Plan: 66yo M with COPD not on home O2, CAD s/p CABG x2, combined systolic/diastolic HF, AF on apixaban, CVA without residual deficit, PAD, tobacco abuse [1.5 ppd], hx heroin + cocaine abuse, seizure disorder, possible VF arrest with status epilepticus back in Jan 2021 presented to his PCP's office with dyspnea and was noted to be hypoxic,arrived here hypotensive and hypoxic but fluid-responsive, admitted for sepsis from multifocal PNA # acute hypoxic respiratory failure due to pneumonia/acute on chronic combined systolic and diastolic congestive heart failure question drug toxicity due to amiodarone - not on home oxygen, continue suppl O2 via [place], wean as tolerated # PNA question community-acquired versus atypical pneumonia - PCT low, Covid-19 TIFFANIE and respiratory virus PCR panel negative, HIV negative - WBC trending down, blood cultures x2 negative status post IV vanco and Zosyn x3 days continue IV ceftriaxone and doxycycline Continue cough medications and analgesics Chest x-ray showing worsening infiltrate Will obtain CT chest/pulmonary consult # acute on chronic combined systolic and diastolic heart failure Continue Lasix 40 mg b.i.d. follow I's and O's daily weight follow echo # COPD exacerbation - improving, continue IV steroids, standing/prn nebs, follow Pulmonary recommendation # sepsis - resolved, had fluid-responsive hypotension ,and no lactic acidosis # transaminasemia - LFTs significantly elevated this morning question related to drug toxicity versus passive congestion no abdominal pain no nausea,no vomiting ? Abdominal ultrasound showed no acute abnormality, follow LFTs in AM # thrush - clotrimazole troches.? HIV negative # AF - rate-controlled on metoprolol succinate, DC amiodarone due to liver toxicity continue Eliquis follow INR and LFTs # history of peripheral arterial disease/coronary artery disease status post CABG - continue metoprolol succinate, will DC aspirin statins due to liver toxicity # seizure disorder - continue levetiracteam, take seizure precautions # mood disorder - on sertraline it can cause hepatotoxicity will gradually wean sole # opioid use disorder history of cocaine abuse - was on Suboxone in past but did not tolerate, drug toxicology positive for fentanyl, patient admits use of heroin Seen by recovery team no withdrawal symptoms noted # tobacco abuse - NRT, counseling done # VTE ppx - apixaban # dispo - lives at home with [facility] Does the patient have a stroke diagnosis?: No VTE Prior VTE?: No VTE Risk Level:: Medical - moderate - high VTE Device Contraindication: N/A - Device Ordered VTE Drug Contraindication: N/A - Med Ordered
[2021-05-25] MEDS: cefTRIAXone sodium 1 GM in 0.9 % Sodium Chloride 50 ML IV (16:10)
--- NOTE | 2021-05-25 17:11 | PM.EVENT ---
Event Note Date of Service: 05/25/21 Event Note: Addiction Consult: Please see Recovery Support Team notes
[2021-05-26] MEDS: Doxycycline Hyclate 100 MG in 0.9 % Sodium Chloride 250 ML 166.6 MG IV ×2 (02:57→16:14)
[2021-05-26 03:55] VITALS: BP 127/78; PULSE 120; RESP 17; TEMP 36.5; O2SAT 99
[2021-05-26 05:26] LABS: Basophils Percent Auto 0.1 % (0-2); Hematocrit 44.3 % (42.0-52.0); Hemoglobin 15.3 g/dl (14.0-18.0); Imm Gran Abs Auto 0.36 X10*3/uL (0.00-0.03); Imm Gran Pct Auto 1.5 % (0.0-0.4); Lymphocytes Absolute Auto 1.5 X10*3/uL (1.2-4.9); Lymphocytes Percent Auto 6.1 % (20-40); MANUAL DIFF FLAG SCAN; Mean Corpuscular HGB Conc 34.5 g/dl (31.0-36.0); Mean Corpuscular Hemoglobin 28.7 pg (27.0-33.0); Mean Platelet Volume 9.9 fL (9.4-12.4); Monocytes Absolute Auto 2.5 X10*3/uL (0.1-1.2); Monocytes Percent Auto 10.2 % (2-11); Neutrophils Absolute Auto 19.8 x10*3/uL (2.0-8.3); Neutrophils Percent Auto 82.1 % (45-73); Platelet Count 371 X10*3/uL (160-400); Red Blood Count 5.34 X10*6/uL (4.60-5.80); Red Cell Distribution Width 16.2 % (11.0-16.0); SCAN SMEAR FLAG 1; White Blood Count 24.1 X10*3/uL (4.8-10.8)
[2021-05-26 05:35] LABS: INTERNATIONAL NORM RATIO 4.2 (0.9-1.1); Prothrombin Time 49.1 SEC (9.9-13.0)
[2021-05-26 05:51] LABS: Alanine Aminotransferase 1340 U/L (0-40); Albumin Level 2.9 g/dL (3.5-5.0); Alkaline Phosphatase 123 U/L (39-117); Anion Gap 15 (12-20); Aspartate Amino Transferase 793 U/L (5-37); Bilirubin Direct 1.8 mg/dL (0.0-0.5); Bilirubin Total 2.3 mg/dL (0.0-1.0); Blood Urea Nitrogen 28 mg/dL (9-16); Calcium 8.6 mg/dL (8.4-10.2); Carbon Dioxide 31 mmol/L (22-29); Chloride 98 mmol/L (96-108); Creatinine Clr Calc Pharmacy 64.6; Estimated Glomerular Filt Rate > 60; Glucose Random 117 mg/dL (60-115); Potassium 3.7 mmol/L (3.3-5.1); Sodium 140 mmol/L (135-145); Total Protein 6.4 g/dL (6.5-8.0)
[2021-05-26 05:52] LABS: SLIDE REVIEW VERIFIED
[2021-05-26] MEDS: Albuterol/Iprat 2.5/0.5MG 3 ML AMPUL.NEB INHALE ×2 (07:32→12:30)
[2021-05-26 07:33] VITALS: PULSE 117; RESP 16; O2SAT 98
[2021-05-26 07:56] VITALS: BP 117/74; PULSE 125; RESP 18; TEMP 36.3; O2SAT 93
[2021-05-26] MEDS: Digoxin 0.25 MG TABLET PO ×2 (08:22→13:45)
[2021-05-26] MEDS: guaiFENesin DM 100/10/5 ML 5 ML SYRUP 10 ML PO ×2 (08:23→19:51)
[2021-05-26] MEDS: Omeprazole 20 MG CAPSULE.DR PO (08:23)
[2021-05-26] MEDS: Metoprolol Succinate ER 25 MG TAB.ER.24H 75 MG PO (08:23)
[2021-05-26] MEDS: Multivitamin TABLET 1 TAB PO (08:23)
[2021-05-26] MEDS: Pentoxifylline ER 400 MG TABLET.ER PO ×2 (08:23→19:51)
[2021-05-26] MEDS: levETIRAcetam 500 MG TABLET PO ×2 (08:23→19:51)
[2021-05-26] MEDS: cloNIDine HCL 0.1 MG TABLET PO ×2 (08:23→19:51)
[2021-05-26] MEDS: Sertraline HCL 25 MG TABLET PO (08:23)
[2021-05-26] MEDS: Furosemide 40 MG/4 ML VIAL IVPUSH ×2 (08:24→17:46)
[2021-05-26] MEDS: 0.9 % Sodium Chloride Flush 3 ML SYRINGE IVFLUSH ×3 (08:24→19:52)
[2021-05-26 08:42] LABS: B Type Natriuretic Peptide 492 pg/mL (<100)
[2021-05-26 10:05] VITALS: O2SAT 95
[2021-05-26] MEDS: Nicotine 21 MG PATCH.TD24 TRANSDERMA (10:54)
[2021-05-26 12:00] VITALS: BP 98/70; PULSE 125; RESP 20; TEMP 36.4; O2SAT 96
--- NOTE | 2021-05-26 12:04 | P.PNCA_ITS ---
Subjective Subjective Date of Service: 05/26/21 Interval history: States that he does not feel good. Constitutional symptoms but no clear cardiac type symptoms. Review of Systems Review of Systems Yes all other systems are reviewed and are negative Cardiovascular: Reports as per HPI, Reports no additional cardiovascular complaints, Denies acrocyanosis, Denies cool extremities, Denies painful fingert ips, Denies chest pain, Denies chest pain at rest, Denies diaphoresis, Denies syncope, Denies irregular heart rhythm, Denies claudication, Denies leg edema, Denies lightheadedness, Denies palpitations and Reports dyspnea Respiratory: Reports dyspnea Denies syncope Endocrine: Denies palpitations Physical Exam Vital Signs: Last Vital Signs Temp 97.4 F 05/26/21 07:56 Pulse 125 H 05/26/21 07:56 Resp 18 05/26/21 07:56 BP 117/74 05/26/21 07:56 Pulse Ox 95 05/26/21 10:05 BMI result Body Mass Index 22.2 Const General: no acute distress HENNV Other: Unremarkable Neck Neck: Yes normal visual inspection Chest Chest palpation & inspection: normal inspection of the chest Resp Auscultation: no crackles and no wheezes Cardio Palpation: normal PMI Heart sounds: S1 normal heart sound present, S2 normal heart sound present, no gallops, no murmurs and no rubs GI Palpation (GI): Soft to palpation Back/Spine/Pelvis Other: unremarkable Skin Lesions: other Neuro Cranial nerves: Yes Other cranial nerve findings present Extrem General: Yes other Psych Mental Status: other Objective Labs and Meds Result diagrams: 05/26/21 05:01 05/26/21 05:01 Lab results: Laboratory Results - last 24 hr 05/25/21 05/25/21 05/26/21 13:08 13:08 05:01 WBC 24.1 H RBC 5.34 Hgb 15.3 Hct 44.3 MCV 83.0 MCH 28.7 MCHC 34.5 RDW 16.2 H Plt Count 371 MPV 9.9 Immature Gran % (Auto) 1.5 H Neut % (Auto) 82.1 H Lymph % (Auto) 6.1 L [place] % (Auto) 10.2 Eos % (Auto) 0.0 Baso % (Auto) 0.1 Lymph # (Auto) 1.5 [place] # (Auto) 2.5 H Eos # (Auto) 0.0 Baso # (Auto) 0.0 Abs Immat Gran (auto) 0.36 H Absolute Neuts (auto) 19.8 H Absolute Nucleated RBC 0.000 Nucleated RBC % (auto) 0.0 Smear Tech's Comments VERIFIED PT INR Sodium Potassium Chloride Carbon Dioxide Anion Gap BUN Creatinine Estim Creat Clear Calc Estimated GFR Random Glucose Calcium Total Bilirubin Direct Bilirubin AST ALT Alkaline Phosphatase B-Natriuretic Peptide Total Protein Albumin Urine Color YELLOW Urine Appearance HAZY Urine pH 7.5 Ur Specific [place] 1.010 Urine Protein NEG Urine Glucose (UA) NEG Urine Ketones NEG Urine Blood NEG Urine Nitrite NEG Ur Leukocyte Esterase NEG Urine Opiates Screen Not Detected Urine Fentanyl Screen POSITIVE H Ur Barbiturates Screen Not Detected Ur Phencyclidine Scrn Not Detected Ur Amphetamines Screen Not Detected U Benzodiazepines Scrn Not Detected Urine Cocaine Screen Not Detected U Marijuana (THC) Screen Not Detected 05/26/21 05/26/21 05/26/21 05:01 05:01 05:01 WBC RBC Hgb Hct MCV MCH MCHC RDW Plt Count MPV Immature Gran % (Auto) Neut % (Auto) Lymph % (Auto) [place] % (Auto) Eos % (Auto) Baso % (Auto) Lymph # (Auto) [place] # (Auto) Eos # (Auto) Baso # (Auto) Abs Immat Gran (auto) Absolute Neuts (auto) Absolute Nucleated RBC Nucleated RBC % (auto) Smear Tech's Comments PT 49.1 H INR 4.2 H Sodium 140 Potassium 3.7 Chloride 98 Carbon Dioxide 31 H Anion Gap 15 BUN 28 H Creatinine 0.98 Estim Creat Clear Calc 64.6 Estimated GFR > 60 Random Glucose 117 H Calcium 8.6 Total Bilirubin 2.3 H Direct Bilirubin 1.8 H AST 793 H ALT 1340 H Alkaline Phosphatase 123 H D B-Natriuretic Peptide 492 H Total Protein 6.4 L Albumin 2.9 L Urine Color Urine Appearance Urine pH Ur Specific [place] Urine Protein Urine Glucose (UA) Urine Ketones Urine Blood Urine Nitrite Ur Leukocyte Esterase Urine Opiates Screen Urine Fentanyl Screen Ur Barbiturates Screen Ur Phencyclidine Scrn Ur Amphetamines Screen U Benzodiazepines Scrn Urine Cocaine Screen U Marijuana (THC) Screen Progress Note: A&P Assessment and plan (1) Acute heart failure: Status: Acute (2) Elevated liver enzymes: Status: Acute (3) Atherosclerotic cardiovascular disease: Status: Acute (4) Atrial flutter with rapid ventricular response: Status: Acute Assessment and Plan: Based on the most recent echocardiogram from yesterday, LVEF 25%. Wall motion abnormalities from coronary disease. LVEF seems diminished compared to prior study. High sensitivity troponin within normal limits. Cardiac BNP 674. CRP is quite high. LFTs are also abnormal. Chest x-ray reported had diffuse bilateral patchy opacities. Overall, doubt cardiac etiology as the primary issue. More likely infectious or noninfectious pulmonary pathology might be the primary problem. Due to abnormal LFTs, off amiodarone. Also stop statins and any other medication that can affect LFTs. Beta-blockers and digoxin for rate control of atrial flutter. May have to hold anticoagulation due to markedly abnormal LFTs. Obtain chest CT scan. Discussed with . Fall Risk Details Current Medications: Current Medications Acetaminophen (Acetaminophen 325 Mg Tablet) 650 mg PO Q6H PRN PRN Reason: Pain, Mild (Pain Scale 1-3) Last Admin: 05/24/21 10:20 Dose: 650 mg Documented by: Albuterol Sulfate (Albuterol Sulfate (0.083%) 2.5 Mg/3 Ml Vial.Neb) 2.5 mg INHALE Q2H PRN PRN Reason: Shortness of Breath/Wheezing Last Admin: 05/24/21 00:11 Dose: 2.5 mg Documented by: Albuterol/Ipratropium (Albuterol/Iprat 2.5/0.5mg 3 Ml Ampul.Neb) 3 ml INHALE RQ4H WHILE AWAKE [facility] Last Admin: 05/26/21 07:32 Dose: 3 ml Documented by: Clonidine HCl (Clonidine Hcl 0.1 Mg Tablet) 0.1 mg PO BID [facility]; Protocol Last Admin: 05/26/21 08:23 Dose: 0.1 mg Documented by: Clotrimazole (Clotrimazole 10 Mg Diana) 10 mg MUCOUS MEM 5XD [facility] Last Admin: 05/26/21 10:04 Dose: 10 mg Documented by: Digoxin (Digoxin 0.25 Mg Tablet) 0.25 mg PO Q6H [facility] Stop: 05/26/21 13:46 Last Admin: 05/26/21 08:22 Dose: 0.25 mg Documented by: Furosemide (Furosemide 40 Mg/4 Ml Vial) 40 mg IVPUSH BID@0900,1800 [facility]; Protocol Last Admin: 05/26/21 08:24 Dose: 40 mg Documented by: Guaifenesin/Dextromethorphan (Guaifenesin Dm 100/10/5 Ml 5 Ml Syrup) 10 ml PO TID [facility] Last Admin: 05/26/21 08:23 Dose: 10 ml Documented by: Ceftriaxone Sodium 1 gm/ (Sodium Chloride) 50 mls @ 100 mls/hr IV Q24H [facility] Last Infusion: 05/25/21 16:41 Dose: Infused Documented by: Doxycycline Hyclate 100 mg/ (Sodium Chloride) 250 mls @ 166.67 mls/hr IV Q12H [facility] Last Infusion: 05/26/21 04:35 Dose: Infused Documented by: Levetiracetam (Levetiracetam 500 Mg Tablet) 500 mg PO BID [facility] Last Admin: 05/26/21 08:23 Dose: 500 mg Documented by: Methylprednisolone Sodium Succinate (Methylprednisolone Sod Succ 40 Mg/Ml Vial) 40 mg IVPUSH Q24H [facility] Last Admin: 05/25/21 12:59 Dose: 40 mg Documented by: Metoprolol Succinate (Metoprolol Succinate Er 25 Mg Tab.Er.24h) 75 mg PO DAILY [facility]; Protocol Last Admin: 05/26/21 08:23 Dose: 75 mg Documented by: Multivitamins/Vitamin C (Multivitamin Tablet) 1 tab PO DAILY [facility] Last Admin: 05/26/21 08:23 Dose: 1 tab Documented by: Nicotine (Nicotine 21 Mg Patch.Td24) 21 mg TRANSDERMA DAILY [facility] Last Admin: 05/26/21 10:54 Dose: 21 mg Documented by: Nicotine Polacrilex (Nicotine Polacrilex 2 Mg Gum) 2 mg BUCCAL Q1H PRN PRN Reason: Nicotine Cravings Omeprazole (Omeprazole 20 Mg Capsule.Dr) 20 mg PO DAILY [facility] Last Admin: 05/26/21 08:23 Dose: 20 mg Documented by: Ondansetron HCl (Ondansetron Hcl 4 Mg/2 Ml Vial) 4 mg IVPUSH Q8H PRN PRN Reason: Nausea and Vomiting Pentoxifylline (Pentoxifylline Er 400 Mg Tablet.Er) 400 mg PO BID [facility] Last Admin: 05/26/21 08:23 Dose: 400 mg Documented by: Sertraline HCl (Sertraline Hcl 25 Mg Tablet) 25 mg PO DAILY [facility] Last Admin: 05/26/21 08:23 Dose: 25 mg Documented by: Sodium Chloride (0.9 % Sodium Chloride Flush 3 Ml Syringe) 3 ml IVFLUSH QSHIFT [facility] Last Admin: 05/26/21 08:24 Dose: 3 ml Documented by: Time Spent With Patient Time: Total time spent is greater than 50% in coordination of care (as doc umented) at patient's floor/unit and/or counseling patient: Time with patient: less than 15 minutes Progress Note: Quality Stroke Does the patient have a stroke diagnosis?: No Procedures Date of Service Date of Service: 05/26/21
--- NOTE | 2021-05-26 12:16 | HO.PM.IMPN ---
Subjective Subjective Date of Service: 05/26/21 Interval History: Overnight noted to have AFib with rapid ventricular rate, increased oxygen requirement up to 8 L, this a.m. patient offers no acute complaints of shortness of breath, no palpitations, no worsening cough, oxygen requirement improved to 4 L, patient requesting for nicotine patch. Review of Systems Review of Systems: Yes all other systems are reviewed and are negative Physical Exam Vital Signs: Vital Signs: Last Vital Signs Temp 97.4 F 05/26/21 07:56 Pulse 125 H 05/26/21 07:56 Resp 18 05/26/21 07:56 BP 117/74 05/26/21 07:56 Pulse Ox 95 05/26/21 10:05 BMI result Body Mass Index 22.2 Gen:? Awake alert x3, no acute distr ess Neck: supple, no jvd Lungs:? No acute respiratory distress, clear [place]urel ngs, coarse bs rt base Heart: irregu lar rate and rhyth m, no murmurs Abd: soft, non-tender, non-distended Ext : no edema Skin: w arm/well-perfused Neuro:? Awake aler t, non focal Psych : appropriate affe ct Objective Data Active Medications Acetaminophen (Acetaminophen 325 Mg Tablet) 650 mg PO Q6H PRN PRN Reason: Pain, Mild (Pain Scale 1-3) Last Admin: 05/24/21 10:20 Dose: 650 mg Documented by: GIRISH Albuterol Sulfate (Albuterol Sulfate (0.083%) 2.5 Mg/3 Ml Vial.Neb) 2.5 mg INHALE Q2H PRN PRN Reason: Shortness of Breath/Wheezing Last Admin: 05/24/21 00:11 Dose: 2.5 mg Documented by: OSCAR Albuterol/Ipratropium (Albuterol/Iprat 2.5/0.5mg 3 Ml Ampul.Neb) 3 ml INHALE RQ4H WHILE AWAKE [facility] Last Admin: 05/26/21 07:32 Dose: 3 ml Documented by: MINE Clonidine HCl (Clonidine Hcl 0.1 Mg Tablet) 0.1 mg PO BID [facility]; Protocol Last Admin: 05/26/21 08:23 Dose: 0.1 mg Documented by: WANG Clotrimazole (Clotrimazole 10 Mg Diana) 10 mg MUCOUS MEM 5XD [facility] Last Admin: 05/26/21 10:04 Dose: 10 mg Documented by: WANG Digoxin (Digoxin 0.25 Mg Tablet) 0.25 mg PO Q6H [facility] Stop: 05/26/21 13:46 Last Admin: 05/26/21 08:22 Dose: 0.25 mg Documented by: WANG Furosemide (Furosemide 40 Mg/4 Ml Vial) 40 mg IVPUSH BID@0900,1800 [facility]; Protocol Last Admin: 05/26/21 08:24 Dose: 40 mg Documented by: WANG Guaifenesin/Dextromethorphan (Guaifenesin Dm 100/10/5 Ml 5 Ml Syrup) 10 ml PO TID [facility] Last Admin: 05/26/21 08:23 Dose: 10 ml Documented by: WANG Ceftriaxone Sodium 1 gm/ (Sodium Chloride) 50 mls @ 100 mls/hr IV Q24H [facility] Last Infusion: 05/25/21 16:41 Dose: 0 mls/hr Documented by: GIRISH Doxycycline Hyclate 100 mg/ (Sodium Chloride) 250 mls @ 166.67 mls/hr IV Q12H [facility] Last Infusion: 05/26/21 04:35 Dose: 0 mls/hr Documented by: RAHEL Levetiracetam (Levetiracetam 500 Mg Tablet) 500 mg PO BID [facility] Last Admin: 05/26/21 08:23 Dose: 500 mg Documented by: WANG Methylprednisolone Sodium Succinate (Methylprednisolone Sod Succ 40 Mg/Ml Vial) 40 mg IVPUSH Q24H [facility] Last Admin: 05/25/21 12:59 Dose: 40 mg Documented by: GIRISH Metoprolol Succinate (Metoprolol Succinate Er 25 Mg Tab.Er.24h) 75 mg PO DAILY [facility]; Protocol Last Admin: 05/26/21 08:23 Dose: 75 mg Documented by: WANG Multivitamins/Vitamin C (Multivitamin Tablet) 1 tab PO DAILY [facility] Last Admin: 05/26/21 08:23 Dose: 1 tab Documented by: WANG Nicotine (Nicotine 21 Mg Patch.Td24) 21 mg TRANSDERMA DAILY [facility] Last Admin: 05/26/21 10:54 Dose: 21 mg Documented by: WANG Nicotine Polacrilex (Nicotine Polacrilex 2 Mg Gum) 2 mg BUCCAL Q1H PRN PRN Reason: Nicotine Cravings Omeprazole (Omeprazole 20 Mg Capsule.Dr) 20 mg PO DAILY [facility] Last Admin: 05/26/21 08:23 Dose: 20 mg Documented by: WANG Ondansetron HCl (Ondansetron Hcl 4 Mg/2 Ml Vial) 4 mg IVPUSH Q8H PRN PRN Reason: Nausea and Vomiting Pentoxifylline (Pentoxifylline Er 400 Mg Tablet.Er) 400 mg PO BID [facility] Last Admin: 05/26/21 08:23 Dose: 400 mg Documented by: WANG Sertraline HCl (Sertraline Hcl 25 Mg Tablet) 25 mg PO DAILY [facility] Last Admin: 05/26/21 08:23 Dose: 25 mg Documented by: WANG Sodium Chloride (0.9 % Sodium Chloride Flush 3 Ml Syringe) 3 ml IVFLUSH QSHIFT [facility] Last Admin: 05/26/21 08:24 Dose: 3 ml Documented by: WANG Labs CBC & Chem 7: 05/26/21 05:01 05/26/21 05:01 Labs: Laboratory Results - last 24 hr 05/25/21 05/25/21 05/26/21 13:08 13:08 05:01 MCV 83.0 MCH 28.7 MCHC 34.5 RDW 16.2 H Plt Count 371 MPV 9.9 Immature Gran % (Auto) 1.5 H Neut % (Auto) 82.1 H Lymph % (Auto) 6.1 L Sac % (Auto) 10.2 Eos % (Auto) 0.0 Baso % (Auto) 0.1 Lymph # (Auto) 1.5 Sac # (Auto) 2.5 H Eos # (Auto) 0.0 Baso # (Auto) 0.0 Abs Immat Gran (auto) 0.36 H Absolute Neuts (auto) 19.8 H Absolute Nucleated RBC 0.000 Nucleated RBC % (auto) 0.0 Smear Tech's Comments VERIFIED PT INR Anion Gap Estim Creat Clear Calc Estimated GFR Random Glucose Calcium Total Bilirubin Direct Bilirubin AST ALT Alkaline Phosphatase B-Natriuretic Peptide Total Protein Albumin Urine Color YELLOW Urine Appearance HAZY Urine pH 7.5 Ur Specific [place] 1.010 Urine Protein NEG Urine Glucose (UA) NEG Urine Ketones NEG Urine Blood NEG Urine Nitrite NEG Ur Leukocyte Esterase NEG Urine Opiates Screen Not Detected Urine Fentanyl Screen POSITIVE H Ur Barbiturates Screen Not Detected Ur Phencyclidine Scrn Not Detected Ur Amphetamines Screen Not Detected U Benzodiazepines Scrn Not Detected Urine Cocaine Screen Not Detected U Marijuana (THC) Screen Not Detected 05/26/21 05/26/21 05/26/21 05:01 05:01 05:01 MCV MCH MCHC RDW Plt Count MPV Immature Gran % (Auto) Neut % (Auto) Lymph % (Auto) Sac % (Auto) Eos % (Auto) Baso % (Auto) Lymph # (Auto) Sac # (Auto) Eos # (Auto) Baso # (Auto) Abs Immat Gran (auto) Absolute Neuts (auto) Absolute Nucleated RBC Nucleated RBC % (auto) Smear Tech's Comments PT 49.1 H INR 4.2 H Anion Gap 15 Estim Creat Clear Calc 64.6 Estimated GFR > 60 Random Glucose 117 H Calcium 8.6 Total Bilirubin 2.3 H Direct Bilirubin 1.8 H AST 793 H ALT 1340 H Alkaline Phosphatase 123 H D B-Natriuretic Peptide 492 H Total Protein 6.4 L Albumin 2.9 L Urine Color Urine Appearance Urine pH Ur Specific [place] Urine Protein Urine Glucose (UA) Urine Ketones Urine Blood Urine Nitrite Ur Leukocyte Esterase Urine Opiates Screen Urine Fentanyl Screen Ur Barbiturates Screen Ur Phencyclidine Scrn Ur Amphetamines Screen U Benzodiazepines Scrn Urine Cocaine Screen U Marijuana (THC) Screen Assessment and Plan (1) Atrial flutter with rapid ventricular response: Status: Acute (2) Atherosclerotic cardiovascular disease: Status: Acute (3) Elevated liver enzymes: Status: Acute (4) Acute heart failure: Status: Acute (5) Hypoxia: Status: Acute (6) Community acquired pneumonia: Status: Acute (7) Acute exacerbation of chronic obstructive airways disease: Status: Acute (8) Sepsis: Status: Acute Assessment and Plan: 66yo M with COPD not on home O2, CAD s/p CABG x2, combined systolic/diastolic HF, AF on apixaban, CVA without residual deficit, PAD, tobacco abuse [1.5 ppd], hx heroin + cocaine abuse, seizure disorder, possible VF arrest with status epilepticus back in Jan 2021 presented to his PCP's office with dyspnea and was noted to be hypoxic,arrived here hypotensive and hypoxic but fluid-responsive, admitted for sepsis from multifocal PNA # acute hypoxic respiratory failure due to pneumonia/acute on chronic combined systolic and diastolic congestive heart failure question drug toxicity due to amiodarone/heroin - not on home oxygen, continue suppl O2 via NC, wean as tolerated, follow CT chest # PNA question community-acquired versus atypical pneumonia - PCT low, Covid-19 TIFFANIE and respiratory virus PCR panel negative, HIV negative - WBC trending down, blood cultures x2 negative status post IV vanco and Zosyn x3 days continue IV ceftriaxone and doxycycline ? Continue cough medications and analgesics ? Chest x-ray showing worsening infiltrate ? obtain CT chest/pulmonary consult pending # acute on chronic combined systolic and diastolic heart failure ? Being followed closely by Cardiology, clinically appears euvolemic , echo showed EF 25%, severe global hypokinesis and indeterminate diastolic function, EF significantly declined from most recent echo of January 30 EF was 45-50% with grade 2 moderate diastolic dysfunction No chest pain normal troponin Follow BMP and bnp Continue Lasix 40 mg b.i.d. follow I's and O's daily weight follow echo # COPD exacerbation - improving, continue IV steroids, standing/prn nebs, follow Pulmonary recommendation # sepsis - resolved, no lactic acidosis, hypotension resolved # transaminasemia - LFTs significantly elevated but stable, mild worsening of total bili,? related to drug toxicity versus passive congestion ? no abdominal pain, no nausea,no vomiting ? Abdominal ultrasound showed no acute abnormality, stopped all hepatotoxic medications including amiodarone, statins ? follow LFTs and clinical course # thrush - clotrimazole troches.? HIV negative # AF with RVR likely after stopping amiodarone - continue metoprolol succinate, and give digoxin, dc Eliquis due to significantly elevated INR Will increase dose of metoprolol if BP allows # history of peripheral arterial disease/coronary artery disease status post CABG - continue metoprolol succinate, no aspirin/ statins due to liver toxicity and elevated INR # seizure disorder - continue levetiracteam, take seizure precautions # mood disorder - on sertraline it can cause hepatotoxicity therefore being tapered # opioid use disorder history of cocaine abuse - was on Suboxone in past but did not tolerate, drug toxicology positive for fentanyl, patient admits use of heroin ? Seen by recovery team no withdrawal symptoms noted # tobacco abuse - will place on nicotine patch, counseling done # VTE ppx - apixaban # dispo - lives at home with [facility] Does the patient have a stroke diagnosis?: No VTE Prior VTE?: No VTE Risk Level:: Medical - moderate - high VTE Device Contraindication: N/A - Device Ordered VTE Drug Contraindication: N/A - Med Ordered
[2021-05-26] MEDS: methylPREDNISolone Sod Succ 40 MG/ML VIAL IVPUSH (13:45)
--- NOTE | 2021-05-26 15:09 | P.CONPL_ITS ---
History of Present Illness History of Present Illness Consult date: 05/26/21 Chief complaint: pna Narrative: This is an inpatient pulmonary consultation. The patient is a 66yo M with COPD not on home O2, CAD s/p CABG x2, combined systolic/diastolic HF, AF on apixaban, CVA without residual deficit, PAD, tobacco abuse [1.5 ppd], hx heroin + cocaine abuse.? He was last admitted here 01/18-01/27/21 to the ICU for status epilepticus resulting in aspiration and possibly VF cardiac arrest.? He u nderwent therapeutic cooling and mechanical ventilation.? He was downgraded to the hospitalist service but signed out against medical advice.? 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 He denies any sick contacts.? No chest pain.? He was noted to have room air SaO2 of 86% and thus was sent to the hospital.? He is not on home O2.? In the ED, he was found to be hypostensive.? Lactate was normal.? He was fluid- responsive, and BP normalized after 1L of IV crystalloid [30 cc/kg not given due to HF].? He was found to have multifocal infiltrates.? He was given IV ceftriaxone and azithromycin.? Covid-19 TIFFANIE was negative.? He was also noted to have transaminasemia with AST 151/ALT 173.? He is a poor historian and this current history was obtained through review of the [facility]. In the hospital the patient did have imaging studies which were personally by me demonstrating patchy scattered opacities within the lungs. Cardiology did evaluate. At this point in may be indeed noncardiogenic pulmonary edema. Does not have any significant eosinophilia to suggest acute hypersensitivity pneumonitis from aspiration or inhalation of drugs. Hematogenous spread infections are also in differential although his blood cultures are negative. He had been positive for Staph aureus recently so therefore he should continue with coverage at this time. Recently he also had elevated LFTs and he was discontinued on the amiodarone. Indeed amiodarone could be also resulting in the pulmonary changes. At this point will treat the patient empirically for pneumonitis. If the patient does not improve CT scan of the chest will be warranted. Review of Systems Review of Systems: Yes Unobtainable due to mental condition [facility] Past Medical History Medical History (Updated 05/26/21 @ 15:13 by Codey Villegas MD) Acute combined systolic and diastolic congestive heart failure Atrial fibrillation Atrial flutter Atrial flutter CAD (coronary artery disease) Cardiac arrest Cardiomyopathy CHF (congestive heart failure) Cocaine abuse with intoxication COPD (chronic obstructive pulmonary disease) Coronary bypass graft mechanical complication Drug abuse 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 Heroin use History of hemorrhagic cerebrovascular accident (CVA) without residual deficits Hyperlipemia Opioid use disorder Paroxysmal atrial fibrillation Pneumonia Pneumonitis PVD (peripheral vascular disease) Seizure disorder Seizure-like activity Subclavian arterial stenosis Toxic encephalopathy Surgical History Surgical History S/P CABG x 2 Social History Social History Household Members: Spouse Housing: House Do you presently have visiting nurse or other home services: No Unable to assess alcohol history related to: Unable to respond Alcohol intake: former Patient Tobacco Use Status: Current everyday Tobacco user Tobacco use type: Cigarette Cigarette Packs Per Day: 2 Cigarettes Per Day: 40.0 e-Cigarette/Vaping Use: Never Used Second Hand Smoke Exposure: Yes Substance Use Type: Heroin Advance Directives Date on File: 01/12/21 service: No Current occupational status: retired Meds Allergies Allergy/AdvReac Type Severity Reaction Status Date / Time No Known Allergies Allergy Unverified 01/12/21 01:03 Active Medications: Current Medications Acetaminophen (Acetaminophen 325 Mg Tablet) 650 mg PO Q6H PRN PRN Reason: Pain, Mild (Pain Scale 1-3) Last Admin: 05/24/21 10:20 Dose: 650 mg Documented by: Albuterol Sulfate (Albuterol Sulfate (0.083%) 2.5 Mg/3 Ml Vial.Neb) 2.5 mg INHALE Q2H PRN PRN Reason: Shortness of Breath/Wheezing Last Admin: 05/24/21 00:11 Dose: 2.5 mg Documented by: Albuterol/Ipratropium (Albuterol/Iprat 2.5/0.5mg 3 Ml Ampul.Neb) 3 ml INHALE RQ4H WHILE AWAKE CARLIE Last Admin: 05/26/21 12:30 Dose: 3 ml Documented by: Clonidine HCl (Clonidine Hcl 0.1 Mg Tablet) 0.1 mg PO BID [facility]; Protocol Last Admin: 05/26/21 08:23 Dose: 0.1 mg Documented by: Clotrimazole (Clotrimazole 10 Mg Diana) 10 mg MUCOUS MEM 5XD [facility] Last Admin: 05/26/21 14:00 Dose: 10 mg Documented by: Furosemide (Furosemide 40 Mg/4 Ml Vial) 40 mg IVPUSH BID@0900,1800 [facility]; Protocol Last Admin: 05/26/21 08:24 Dose: 40 mg Documented by: Guaifenesin/Dextromethorphan (Guaifenesin Dm 100/10/5 Ml 5 Ml Syrup) 10 ml PO TID [facility] Last Admin: 05/26/21 08:23 Dose: 10 ml Documented by: Ceftriaxone Sodium 1 gm/ (Sodium Chloride) 50 mls @ 100 mls/hr IV Q24H [facility] Last Infusion: 05/25/21 16:41 Dose: Infused Documented by: Doxycycline Hyclate 100 mg/ (Sodium Chloride) 250 mls @ 166.67 mls/hr IV Q12H [facility] Last Infusion: 05/26/21 04:35 Dose: Infused Documented by: Levetiracetam (Levetiracetam 500 Mg Tablet) 500 mg PO BID [facility] Last Admin: 05/26/21 08:23 Dose: 500 mg Documented by: Methylprednisolone Sodium Succinate (Methylprednisolone Sod Succ 40 Mg/Ml Vial) 40 mg IVPUSH Q24H [facility] Last Admin: 05/26/21 13:45 Dose: 40 mg Documented by: Metoprolol Succinate (Metoprolol Succinate Er 25 Mg Tab.Er.24h) 75 mg PO DAILY [facility]; Protocol Last Admin: 05/26/21 08:23 Dose: 75 mg Documented by: Multivitamins/Vitamin C (Multivitamin Tablet) 1 tab PO DAILY [facility] Last Admin: 05/26/21 08:23 Dose: 1 tab Documented by: Nicotine (Nicotine 21 Mg Patch.Td24) 21 mg TRANSDERMA DAILY [facility] Last Admin: 05/26/21 10:54 Dose: 21 mg Documented by: Nicotine Polacrilex (Nicotine Polacrilex 2 Mg Gum) 2 mg BUCCAL Q1H PRN PRN Reason: Nicotine Cravings Omeprazole (Omeprazole 20 Mg Capsule.Dr) 20 mg PO DAILY [facility] Last Admin: 05/26/21 08:23 Dose: 20 mg Documented by: Ondansetron HCl (Ondansetron Hcl 4 Mg/2 Ml Vial) 4 mg IVPUSH Q8H PRN PRN Reason: Nausea and Vomiting Pentoxifylline (Pentoxifylline Er 400 Mg Tablet.Er) 400 mg PO BID [facility] Last Admin: 05/26/21 08:23 Dose: 400 mg Documented by: Sertraline HCl (Sertraline Hcl 25 Mg Tablet) 25 mg PO DAILY [facility] Last Admin: 05/26/21 08:23 Dose: 25 mg Documented by: Sodium Chloride (0.9 % Sodium Chloride Flush 3 Ml Syringe) 3 ml IVFLUSH QSHIFT [facility] Last Admin: 05/26/21 08:24 Dose: 3 ml Documented by: Home Medications Medication Instructions Recorded Confirmed Last Taken Type apixaban 5 mg tablet (Eliquis) 5 mg PO BID 01/12/21 05/22/21 05/21/21 History aspirin 81 mg tablet 81 mg PO DAILY 01/12/21 05/22/21 05/21/21 History atorvastatin 40 mg tablet 40 mg PO BEDTIME 01/12/21 05/22/21 05/21/21 History clonidine HCl 0.1 mg tablet 0.1 mg PO BID 01/12/21 05/22/21 05/21/21 History omeprazole 20 mg capsule,delayed 20 mg PO DAILY 01/12/21 05/22/21 05/21/21 History release pentoxifylline 400 mg 1 tab PO BID 01/18/21 05/22/21 05/21/21 History tablet,extended release B-complex with vitamin C 1 tab PO DAILY 05/22/21 05/22/21 05/21/21 History multivitamin 1 tab PO DAILY 05/22/21 05/22/21 05/21/21 History sertraline 50 mg tablet 1 tab PO DAILY 05/22/21 05/22/21 05/21/21 History vitamin E 1 tab PO DAILY 05/22/21 05/22/21 05/21/21 History Physical Exam Vital Signs: Vital Signs: Last Vital Signs Temp 97.6 F 05/26/21 12:00 Pulse 125 H 05/26/21 12:00 Resp 20 05/26/21 12:00 BP 98/70 05/26/21 12:00 Pulse Ox 96 05/26/21 12:00 BMI result Body Mass Index 22.2 Const: General: alert Neck: Neck: Yes normal visual inspection, Yes full ROM and Yes no lymphadenopathy Chest: Chest palpation & inspection: normal inspection of the chest Resp: Auscultation: rales, rhonchi and diminished lung sounds Cardio: Rate: regular rate Rhythm: regular rhythm Heart sounds: S1 normal heart sound present and S2 normal heart sound present GI: Palpation (GI): Soft to palpation and nontender Auscultation: normal bowel sounds Skin: General skin exam: rashes and/or lesions noted Results Laboratory Findings CBC and BMP: 05/26/21 05:01 05/26/21 05:01 ABG, PT/INR, D-dimer: PT/INR, D-dimer PT 49.1 SEC (9.9-13.0) H 05/26/21 05:01 INR 4.2 (0.9-1.1) H 05/26/21 05:01 Abnormal lab findings: Abnormal Labs 05/22/21 05/22/21 05/22/21 12:11 12:11 12:11 WBC 15.0 H RBC 4.36 L Hgb 12.6 L Hct 37.0 L RDW 16.5 H MPV 9.0 L Immature Gran % (Auto) 0.7 H Neut % (Auto) Lymph % (Auto) 11.2 L Haskell % (Auto) 14.2 H Haskell # (Auto) 2.1 H Abs Immat Gran (auto) 0.11 H Absolute Neuts (auto) 10.6 H PT INR ABG pH at Pt Temp ABG pCO2 at Pt Temp ABG pCO2 (Temp Corrct ABG pO2 at Pt Temp ABG pO2 (Temp Correct ABG HCO3 VBG pH VBG HCO3 Carbon Dioxide Anion Gap 11 L BUN Random Glucose Calcium 8.1 L Total Bilirubin Direct Bilirubin AST 151 H ALT 173 H Alkaline Phosphatase C-Reactive Protein 20.34 H B-Natriuretic Peptide 321 H Total Protein 5.8 L Albumin 2.8 L D Vancomycin Trough Urine Fentanyl Screen 05/23/21 05/23/21 05/23/21 05:29 05:29 05:29 WBC 16.7 H RBC 4.25 L Hgb 12.3 L Hct 35.7 L RDW 16.4 H MPV Immature Gran % (Auto) Neut % (Auto) Lymph % (Auto) Haskell % (Auto) Haskell # (Auto) Abs Immat Gran (auto) Absolute Neuts (auto) PT INR ABG pH at Pt Temp ABG pCO2 at Pt Temp ABG pCO2 (Temp Corrct ABG pO2 at Pt Temp ABG pO2 (Temp Correct ABG HCO3 VBG pH VBG HCO3 Carbon Dioxide Anion Gap 11 L BUN Random Glucose 173 H D Calcium 8.0 L Total Bilirubin 1.1 H Direct Bilirubin AST 190 H ALT 197 H Alkaline Phosphatase C-Reactive Protein B-Natriuretic Peptide 726 H Total Protein 5.6 L Albumin 2.6 L Vancomycin Trough Urine Fentanyl Screen 05/24/21 05/24/21 05/24/21 05:49 05:49 15:52 WBC 35.6 H* RBC Hgb 13.7 L Hct 39.6 L RDW 16.8 H MPV Immature Gran % (Auto) Neut % (Auto) Lymph % (Auto) Haskell % (Auto) Haskell # (Auto) Abs Immat Gran (auto) Absolute Neuts (auto) PT INR ABG pH at Pt Temp 7.34 L ABG pCO2 at Pt Temp 31 L ABG pCO2 (Temp Corrct 30 L ABG pO2 at Pt Temp 64 L ABG pO2 (Temp Correct 60 L ABG HCO3 17 L VBG pH VBG HCO3 Carbon Dioxide Anion Gap BUN 20 H D Random Glucose 138 H Calcium 8.3 L Total Bilirubin 1.2 H Direct Bilirubin AST 320 H ALT 320 H Alkaline Phosphatase C-Reactive Protein 8.59 H B-Natriuretic Peptide Total Protein 6.2 L Albumin 2.9 L Vancomycin Trough Urine Fentanyl Screen 05/24/21 05/25/21 05/25/21 16:33 06:16 06:16 WBC 23.1 H RBC Hgb 13.4 L Hct 38.7 L RDW 16.3 H MPV Immature Gran % (Auto) 1.3 H Neut % (Auto) 85.6 H Lymph % (Auto) 5.0 L Haskell % (Auto) Haskell # (Auto) 1.9 H Abs Immat Gran (auto) 0.29 H Absolute Neuts (auto) 19.8 H PT INR ABG pH at Pt Temp ABG pCO2 at Pt Temp ABG pCO2 (Temp Corrct ABG pO2 at Pt Temp ABG pO2 (Temp Correct ABG HCO3 VBG pH VBG HCO3 Carbon Dioxide Anion Gap BUN Random Glucose Calcium Total Bilirubin 1.9 H Direct Bilirubin 1.5 H AST 1813 H ALT 1309 H Alkaline Phosphatase C-Reactive Protein B-Natriuretic Peptide Total Protein 5.5 L Albumin 2.6 L Vancomycin Trough 7.7 L Urine Fentanyl Screen 05/25/21 05/25/21 05/25/21 06:16 06:20 13:08 WBC RBC Hgb Hct RDW MPV Immature Gran % (Auto) Neut % (Auto) Lymph % (Auto) Haskell % (Auto) Haskell # (Auto) Abs Immat Gran (auto) Absolute Neuts (auto) PT INR ABG pH at Pt Temp ABG pCO2 at Pt Temp ABG pCO2 (Temp Corrct ABG pO2 at Pt Temp ABG pO2 (Temp Correct ABG HCO3 VBG pH 7.47 H VBG HCO3 29 H Carbon Dioxide Anion Gap BUN Random Glucose Calcium Total Bilirubin Direct Bilirubin AST ALT Alkaline Phosphatase C-Reactive Protein B-Natriuretic Peptide 674 H Total Protein Albumin Vancomycin Trough Urine Fentanyl Screen POSITIVE H 05/26/21 05/26/21 05/26/21 05:01 05:01 05:01 WBC 24.1 H RBC Hgb Hct RDW 16.2 H MPV Immature Gran % (Auto) 1.5 H Neut % (Auto) 82.1 H Lymph % (Auto) 6.1 L Haskell % (Auto) Haskell # (Auto) 2.5 H Abs Immat Gran (auto) 0.36 H Absolute Neuts (auto) 19.8 H PT 49.1 H INR 4.2 H ABG pH at Pt Temp ABG pCO2 at Pt Temp ABG pCO2 (Temp Corrct ABG pO2 at Pt Temp ABG pO2 (Temp Correct ABG HCO3 VBG pH VBG HCO3 Carbon Dioxide 31 H Anion Gap BUN 28 H Random Glucose 117 H Calcium Total Bilirubin 2.3 H Direct Bilirubin 1.8 H AST 793 H ALT 1340 H Alkaline Phosphatase 123 H D C-Reactive Protein B-Natriuretic Peptide Total Protein 6.4 L Albumin 2.9 L Vancomycin Trough Urine Fentanyl Screen 05/26/21 05:01 WBC RBC Hgb Hct RDW MPV Immature Gran % (Auto) Neut % (Auto) Lymph % (Auto) Haskell % (Auto) Haskell # (Auto) Abs Immat Gran (auto) Absolute Neuts (auto) PT INR ABG pH at Pt Temp ABG pCO2 at Pt Temp ABG pCO2 (Temp Corrct ABG pO2 at Pt Temp ABG pO2 (Temp Correct ABG HCO3 VBG pH VBG HCO3 Carbon Dioxide Anion Gap BUN Random Glucose Calcium Total Bilirubin Direct Bilirubin AST ALT Alkaline Phosphatase C-Reactive Protein B-Natriuretic Peptide 492 H Total Protein Albumin Vancomycin Trough Urine Fentanyl Screen Microbiology: Microbiology 05/22/21 12:49 Blood - Venous Blood Culture - Preliminary No growth after 48 hours. 05/22/21 12:11 Blood - Venous Blood Culture - Preliminary No growth after 48 hours. Assessment and Plan (1) Pneumonia: Status: Acute (2) Pneumonitis: Status: Acute (3) Acute exacerbation of chronic obstructive airways disease: Status: Acute Increase Solumedrol Continue antibiotics repeat CXR tomorrow, if no better, CT chest Additional bloodwork requested Procedures Date of Service Date of Service: 05/26/21
[2021-05-26] MEDS: ondansetron HCL 4 MG/2 ML VIAL IVPUSH (15:27)
[2021-05-26] MEDS: cefTRIAXone sodium 1 GM in 0.9 % Sodium Chloride 50 ML IV (15:35)
[2021-05-26 16:23] LABS: Erythrocyte Sedimentation Rate 23 MM/HR (0-15)
[2021-05-26] MEDS: methylPREDNISolone Sod Succ 125 MG/2 ML VIAL 80 MG IVPUSH (19:50)
[2021-05-26 23:37] VITALS: BP 113/66; PULSE 94; RESP 17; TEMP 36.2; O2SAT 94
[2021-05-27 03:52] VITALS: BP 107/67; PULSE 95; RESP 19; TEMP 36.1; O2SAT 95
[2021-05-27] MEDS: Doxycycline Hyclate 100 MG in 0.9 % Sodium Chloride 250 ML 166.6 MG IV ×2 (04:28→16:18)
[2021-05-27] MEDS: methylPREDNISolone Sod Succ 125 MG/2 ML VIAL 80 MG IVPUSH (04:28)
[2021-05-27 06:17] LABS: B Type Natriuretic Peptide 287 pg/mL (<100)
[2021-05-27 06:42] LABS: Alanine Aminotransferase 1107 U/L (0-40); Alkaline Phosphatase 134 U/L (39-117); Anion Gap 18 (12-20); Aspartate Amino Transferase 429 U/L (5-37); Bilirubin Direct 1.9 mg/dL (0.0-0.5); Bilirubin Total 2.6 mg/dL (0.0-1.0); Blood Urea Nitrogen 34 mg/dL (9-16); Calcium 8.7 mg/dL (8.4-10.2); Carbon Dioxide 30 mmol/L (22-29); Chloride 93 mmol/L (96-108); Creatinine Clr Calc Pharmacy 62.7; Estimated Glomerular Filt Rate > 60; Glucose Random 139 mg/dL (60-115); Potassium 3.8 mmol/L (3.3-5.1); Sodium 137 mmol/L (135-145); Total Protein 6.8 g/dL (6.5-8.0)
[2021-05-27 07:32] VITALS: BP 110/77; PULSE 125; RESP 20; TEMP 36.3; O2SAT 91
[2021-05-27] MEDS: Multivitamin TABLET 1 TAB PO (08:54)
[2021-05-27] MEDS: cloNIDine HCL 0.1 MG TABLET PO ×2 (08:54→20:58)
[2021-05-27] MEDS: guaiFENesin DM 100/10/5 ML 5 ML SYRUP 10 ML PO ×3 (08:54→20:58)
[2021-05-27] MEDS: levETIRAcetam 500 MG TABLET PO ×2 (08:54→20:58)
[2021-05-27] MEDS: 0.9 % Sodium Chloride Flush 3 ML SYRINGE IVFLUSH ×3 (08:54→20:59)
[2021-05-27] MEDS: Sertraline HCL 25 MG TABLET PO (08:54)
[2021-05-27] MEDS: Furosemide 40 MG/4 ML VIAL IVPUSH ×2 (08:54→17:55)
[2021-05-27] MEDS: Metoprolol Succinate ER 25 MG TAB.ER.24H 75 MG PO (08:55)
[2021-05-27] MEDS: Pentoxifylline ER 400 MG TABLET.ER PO ×2 (08:55→20:58)
[2021-05-27] MEDS: Digoxin 0.25 MG TABLET PO (08:55)
[2021-05-27] MEDS: Nicotine 21 MG PATCH.TD24 TRANSDERMA (08:55)
[2021-05-27] MEDS: Omeprazole 20 MG CAPSULE.DR PO (08:55)
[2021-05-27] MEDS: iohexoL 350 MG/ML 100 ML INFUS..BTL IV (11:11)
[2021-05-27 12:00] VITALS: BP 114/57; PULSE 80; RESP 18; TEMP 36.3; O2SAT 92
--- NOTE | 2021-05-27 13:24 | HO.PM.IMPN ---
Subjective Subjective Date of Service: 05/27/21 Interval History: Patient feeling significantly better in regard to shortness of breath but complaining of overall generalized weakness, initially refused to go for CT scan but after lengthy discussion he agreed to undergo testing, No overnight fevers chills, no new cough sputum production, no shortness of breath, no chest pain. Review of Systems Review of Systems: Yes all other systems are reviewed and are negative Physical Exam Vital Signs: Vital Signs: Last Vital Signs Temp 97.4 F 05/27/21 12:00 Pulse 49 L 05/27/21 12:00 Resp 18 05/27/21 12:00 BP 114/57 L 05/27/21 12:00 Pulse Ox 92 05/27/21 12:00 BMI result Body Mass Index 22.2 Gen:? Awake alertx3, no acute distress Neck: supple,no jvd Lungs:? No acute respiratory distress, clear lungs, no wheeze, no crackles. Heart: irregular rate and rhythm, no murmurs Abd:?soft, non-tender,?non-distended Ext: no edema Skin: warm/well-perfused Neuro:? Awake alert, non focal Psych: appropriate affect Objective Data Active Medications Acetaminophen (Acetaminophen 325 Mg Tablet) 650 mg PO Q6H PRN PRN Reason: Pain, Mild (Pain Scale 1-3) Last Admin: 05/24/21 10:20 Dose: 650 mg Documented by: GIRISH Albuterol Sulfate (Albuterol Sulfate (0.083%) 2.5 Mg/3 Ml Vial.Neb) 2.5 mg INHALE Q2H PRN PRN Reason: Shortness of Breath/Wheezing Last Admin: 05/24/21 00:11 Dose: 2.5 mg Documented by: OSCAR Albuterol/Ipratropium (Albuterol/Iprat 2.5/0.5mg 3 Ml Ampul.Neb) 3 ml INHALE RQ4H WHILE AWAKE [facility] Last Admin: 05/27/21 11:42 Dose: Not Given Documented by: MIKY Non-Admin Reason: Patient Refused Clonidine HCl (Clonidine Hcl 0.1 Mg Tablet) 0.1 mg PO BID [facility]; Protocol Last Admin: 05/27/21 08:54 Dose: 0.1 mg Documented by: COTALLIE Clotrimazole (Clotrimazole 10 Mg Diana) 10 mg MUCOUS MEM 5XD [facility] Last Admin: 05/27/21 13:10 Dose: Not Given Documented by: ASHLY Non-Admin Reason: Patient Refused Digoxin (Digoxin 0.25 Mg Tablet) 0.25 mg PO Q6H [facility] Stop: 05/27/21 14:01 Last Admin: 05/27/21 08:55 Dose: 0.25 mg Documented by: ASHLY Furosemide (Furosemide 40 Mg/4 Ml Vial) 40 mg IVPUSH BID@0900,1800 [facility]; Protocol Last Admin: 05/27/21 08:54 Dose: 40 mg Documented by: ASHLY Guaifenesin/Dextromethorphan (Guaifenesin Dm 100/10/5 Ml 5 Ml Syrup) 10 ml PO TID [facility] Last Admin: 05/27/21 08:54 Dose: 10 ml Documented by: ASHLY Ceftriaxone Sodium 1 gm/ (Sodium Chloride) 50 mls @ 100 mls/hr IV Q24H [facility] Last Infusion: 05/26/21 16:17 Dose: 0 mls/hr Documented by: WANG Doxycycline Hyclate 100 mg/ (Sodium Chloride) 250 mls @ 166.67 mls/hr IV Q12H [facility] Last Infusion: 05/27/21 06:10 Dose: 0 mls/hr Documented by: LUISITO Levetiracetam (Levetiracetam 500 Mg Tablet) 500 mg PO BID [facility] Last Admin: 05/27/21 08:54 Dose: 500 mg Documented by: ASHLY Methylprednisolone Sodium Succinate (Methylprednisolone Sod Succ 125 Mg/2 Ml Vial) 80 mg IVPUSH Q8H [facility] Last Admin: 05/27/21 04:28 Dose: 80 mg Documented by: LUISITO Metoprolol Succinate (Metoprolol Succinate Er 25 Mg Tab.Er.24h) 75 mg PO DAILY [facility]; Protocol Last Admin: 05/27/21 08:55 Dose: 75 mg Documented by: ASHLY Multivitamins/Vitamin C (Multivitamin Tablet) 1 tab PO DAILY [facility] Last Admin: 05/27/21 08:54 Dose: 1 tab Documented by: ASHLY Nicotine (Nicotine 21 Mg Patch.Td24) 21 mg TRANSDERMA DAILY [facility] Last Admin: 05/27/21 08:55 Dose: 21 mg Documented by: ASHLY Nicotine Polacrilex (Nicotine Polacrilex 2 Mg Gum) 2 mg BUCCAL Q1H PRN PRN Reason: Nicotine Cravings Omeprazole (Omeprazole 20 Mg Capsule.Dr) 20 mg PO DAILY [facility] Last Admin: 05/27/21 08:55 Dose: 20 mg Documented by: ASHLY Ondansetron HCl (Ondansetron Hcl 4 Mg/2 Ml Vial) 4 mg IVPUSH Q8H PRN PRN Reason: Nausea and Vomiting Last Admin: 05/26/21 15:27 Dose: 4 mg Documented by: WANG Pentoxifylline (Pentoxifylline Er 400 Mg Tablet.Er) 400 mg PO BID [facility] Last Admin: 05/27/21 08:55 Dose: 400 mg Documented by: ASHLY Sertraline HCl (Sertraline Hcl 25 Mg Tablet) 25 mg PO DAILY [facility] Last Admin: 05/27/21 08:54 Dose: 25 mg Documented by: ASHLY Sodium Chloride (0.9 % Sodium Chloride Flush 3 Ml Syringe) 3 ml IVFLUSH QSHIFT [facility] Last Admin: 05/27/21 08:54 Dose: 3 ml Documented by: ASHLY Labs CBC & Chem 7: 05/26/21 05:01 05/27/21 05:00 Labs: Laboratory Results - last 24 hr 05/26/21 05/27/21 05/27/21 15:32 05:00 05:00 ESR 23 H Anion Gap 18 Estim Creat Clear Calc 62.7 Estimated GFR > 60 Random Glucose 139 H Calcium 8.7 Total Bilirubin 2.6 H Direct Bilirubin 1.9 H AST 429 H ALT 1107 H Alkaline Phosphatase 134 H B-Natriuretic Peptide 287 H Total Protein 6.8 Albumin 3.0 L Microbiology Microbiology Results: Microbiology 05/22/21 12:11 Blood Culture - Final Blood - Venous No growth after 5 days. Assessment and Plan (1) Pneumonitis: Status: Acute (2) Pneumonia: Status: Acute (3) Atrial flutter with rapid ventricular response: Status: Acute (4) Atherosclerotic cardiovascular disease: Status: Acute (5) Elevated liver enzymes: Status: Acute (6) Acute heart failure: Status: Acute (7) Acute exacerbation of chronic obstructive airways disease: Status: Acute Assessment and Plan: 66yo M with COPD not on home O2, CAD s/p CABG x2, combined systolic/diastolic HF, AF on apixaban, CVA without residual deficit, PAD, tobacco abuse [1.5 ppd], hx heroin + cocaine abuse, seizure disorder, possible VF arrest with status epilepticus back in Jan 2021 presented to his PCP's office with dyspnea and was noted to be hypoxic,arrived here hypotensive and hypoxic but fluid-responsive, admitted for sepsis from multifocal PNA # acute hypoxic respiratory failure due to pneumonia/acute on chronic combined systolic and diastolic congestive heart failure/COPD exacerbation/ question drug toxicity due to amiodarone/heroin - not on home oxygen, continue suppl O2 via NC, wean as tolerated, chest x-ray shows improvement in infiltrates therefore likely symptoms related to CHF, follow CT chest report Being followed by pulmonology they uptitrated dose of Solumedrol. Significantly elevated CRP trending down Will repeat CRP likely due to pneumonitis/pneumonia improving # PNA question community-acquired versus atypical pneumonia - PCT low, Covid-19 TIFFANIE and respiratory virus PCR panel negative, HIV negative - WBC trending down but remains elevated likely related to steroid, blood cultures x2 negative status post IV vanco and Zosyn x3 days , now on IV ceftriaxone and doxycycline day 3 ? Continue cough medications and analgesics ? Chest x-ray today showing improvement ? CT chest pending # acute on chronic combined systolic and diastolic heart failure ? Being followed closely by Cardiology, clinically appears euvolemic , echo showed EF 25%, severe global hypokinesis and indeterminate diastolic function, EF declined from most recent echo of January 30 ? EF was 45-50% with grade 2 moderate diastolic dysfunction ? No chest pain normal troponin ? BNP improved from 726- 287 , stable potassium, BUN slightly elevated, will follow BMP at a.m. ? Continue Lasix 40 mg b.i.d. follow I's and O's daily weight # COPD exacerbation - improving, continue IV steroids, standing/prn nebs, being followed by pulmonology, will wean IV steroid # sepsis - resolved, no lactic acidosis, hypotension resolved # transaminasemia - LFTs significantly elevated but trending down, mild worsening of total bili,? related to drug toxicity versus passive congestion ? no abdominal pain, no nausea,no vomiting ? Abdominal ultrasound showed no acute abnormality, ? stopped all hepatotoxic medications including amiodarone, statins ? follow LFTs and clinical course # thrush - clotrimazole troches.? HIV negative # AF with RVR likely after stopping amiodarone - continue metoprolol succinate, and given digoxin loading dose, heart rate improved, start daily digoxin dc Eliquis due to significantly elevated INR ? # history of peripheral arterial disease/coronary artery disease status post CABG - continue metoprolol succinate, no aspirin/ statins due to liver toxicity and elevated INR # seizure disorder - continue levetiracteam, take seizure precautions # mood disorder - on sertraline it can cause hepatotoxicity therefore dose taper to 25 mg # opioid use disorder history of cocaine abuse - was on Suboxone in past but did not tolerate, drug toxicology positive for fentanyl, patient admits use of heroin ? Seen by recovery team no withdrawal symptoms noted # tobacco abuse - on nicotine patch, counseling done # VTE ppx - compression boots # dispo - lives at home with [facility] Does the patient have a stroke diagnosis?: No VTE Prior VTE?: No VTE Risk Level:: Medical - moderate - high VTE Device Contraindication: N/A - Device Ordered VTE Drug Contraindication: N/A - Med Ordered
[2021-05-27] MEDS: methylPREDNISolone Sod Succ 125 MG/2 ML VIAL 60 MG IVPUSH ×2 (14:21→20:58)
[2021-05-27 15:29] VITALS: BP 115/72; PULSE 81; RESP 18; TEMP 36.8; O2SAT 92
[2021-05-27] MEDS: cefTRIAXone sodium 1 GM in 0.9 % Sodium Chloride 50 ML IV (15:41)
[2021-05-28] VITALS (9 sets, daily range): BP systolic 110–143; BP diastolic 59–82; PULSE 57–110; RESP 17–20; TEMP 36.2–37; O2SAT 92–97
[2021-05-28] MEDS: Doxycycline Hyclate 100 MG in 0.9 % Sodium Chloride 250 ML 166.6 MG IV ×2 (03:25→16:08)
[2021-05-28] MEDS: methylPREDNISolone Sod Succ 125 MG/2 ML VIAL 60 MG IVPUSH ×3 (05:00→20:39)
[2021-05-28 05:52] LABS: Basophils Percent Auto 0.2 % (0-2); Hematocrit 49.7 % (42.0-52.0); Hemoglobin 17.6 g/dl (14.0-18.0); Imm Gran Abs Auto 0.17 X10*3/uL (0.00-0.03); Imm Gran Pct Auto 0.9 % (0.0-0.4); Lymphocytes Absolute Auto 1.5 X10*3/uL (1.2-4.9); Lymphocytes Percent Auto 8.1 % (20-40); MANUAL DIFF FLAG SCAN; Mean Corpuscular HGB Conc 35.4 g/dl (31.0-36.0); Mean Corpuscular Hemoglobin 28.2 pg (27.0-33.0); Mean Corpuscular Volume 79.6 fL (80.0-98.0); Mean Platelet Volume 9.9 fL (9.4-12.4); Monocytes Absolute Auto 1.6 X10*3/uL (0.1-1.2); Monocytes Percent Auto 8.8 % (2-11); Neutrophils Absolute Auto 14.7 x10*3/uL (2.0-8.3); Platelet Count 425 X10*3/uL (160-400); Red Blood Count 6.24 X10*6/uL (4.60-5.80); Red Cell Distribution Width 17.5 % (11.0-16.0); SCAN SMEAR FLAG 1
[2021-05-28 06:21] LABS: Alanine Aminotransferase 1058 U/L (0-40); Albumin Level 3.1 g/dL (3.5-5.0); Alkaline Phosphatase 144 U/L (39-117); Anion Gap 17 (12-20); Aspartate Amino Transferase 448 U/L (5-37); Bilirubin Total 2.7 mg/dL (0.0-1.0); Blood Urea Nitrogen 36 mg/dL (9-16); C Reactive Protein 3.17 mg/dL (< or = 0.50); Calcium 9.1 mg/dL (8.4-10.2); Carbon Dioxide 32 mmol/L (22-29); Chloride 92 mmol/L (96-108); Creatinine Clr Calc Pharmacy 52.3; Estimated Glomerular Filt Rate 60; Glucose Random 172 mg/dL (60-115); Magnesium 2.6 mg/dL (1.6-2.6); Potassium 4.1 mmol/L (3.3-5.1); SLIDE REVIEW VERIFIED; Sodium 137 mmol/L (135-145); Total Protein 6.9 g/dL (6.5-8.0)
[2021-05-28] MEDS: Multivitamin TABLET 1 TAB PO (08:20)
[2021-05-28] MEDS: Pentoxifylline ER 400 MG TABLET.ER PO ×2 (08:20→20:39)
[2021-05-28] MEDS: cloNIDine HCL 0.1 MG TABLET PO ×2 (08:20→20:39)
[2021-05-28] MEDS: levETIRAcetam 500 MG TABLET PO ×2 (08:20→20:39)
[2021-05-28] MEDS: Omeprazole 20 MG CAPSULE.DR PO (08:20)
[2021-05-28] MEDS: Nicotine 21 MG PATCH.TD24 TRANSDERMA (08:20)
[2021-05-28] MEDS: Sertraline HCL 25 MG TABLET PO (08:20)
[2021-05-28] MEDS: Furosemide 40 MG/4 ML VIAL IVPUSH ×2 (08:21→17:41)
[2021-05-28] MEDS: Metoprolol Succinate ER 25 MG TAB.ER.24H 75 MG PO (08:21)
[2021-05-28] MEDS: 0.9 % Sodium Chloride Flush 3 ML SYRINGE IVFLUSH ×3 (08:21→20:39)
[2021-05-28] MEDS: guaiFENesin DM 100/10/5 ML 5 ML SYRUP 10 ML PO ×3 (08:30→20:39)
[2021-05-28 09:00] LABS: Procalcitonin 0.16 ng/mL
[2021-05-28 09:22] LABS: INTERNATIONAL NORM RATIO 1.8 (0.9-1.1); Prothrombin Time 20.7 SEC (9.9-13.0)
--- NOTE | 2021-05-28 13:04 | PM.PNCARD ---
Subjective Subjective Date of Service: 05/28/21 <CARLY Smyth - Last Filed: 05/28/21 13:24> 05/28/21 <Mukesh Alvares MD - Last Filed: 05/28/21 18:11> Principal diagnosis: sob, BNP elevated, CMP, PNA <CARLY Smyth - Last Filed: 05/28/21 13:24> Interval history: Cardiology follow up for the above. Seen at 1100. Today he is observed resting in bed without distress. He reports having body aches and not feeling well. Breathing comfortable at rest. Productive cough present. Wearing O2 with 4 liters, sat 97%. No chest pains, palpitations, dizziness, edema. <CARLY Smyth - Last Filed: 05/28/21 13:24> Review of Systems Review of Systems as above <CARLY Smyth - Last Filed: 05/28/21 13:24> Yes all other systems are reviewed and are negative <CARLY Smyth - Last Filed: 05/28/21 13:24> Physical Exam Vital Signs: Last Vital Signs Temp 97.1 F 05/28/21 12:00 Pulse 64 05/28/21 12:00 Resp 19 05/28/21 12:00 BP 135/69 05/28/21 12:00 Pulse Ox 94 05/28/21 12:00 BMI result Body Mass Index 22.2 <CARLY Smyth - Last Filed: 05/28/21 13:24> Const General: cooperative, no acute distress, alert and awake <CARLY Smyth - Last Filed: 05/28/21 13:24> Orientation/consciousness: patient oriented x3 <CARLY Smyth - Last Filed: 05/28/21 13:24> Neck Neck: Yes normal visual inspection and Yes no JVD <CARLY Smyth Last Filed: 05/28/21 13:24> Resp Effort & Inspection: normal respiratory effort, able to speak in complete sentences and not labored <CARLY Smyth - Last Filed: 05/28/21 13:24> Auscultation: clear to auscultation bilaterally and no rales <Kristen Qunitero NP-C - Last Filed: 05/28/21 13:24> Cardio Jugular venous distension: JVD present <CALOS SmythC - Last Filed: 05/28/21 13:24> Palpation: normal PMI <Kristen Quintero NP-C - Last Filed: 05/28/21 13:24> Rate: tachycardic <Kristen Quintero NP-C - Last Filed: 05/28/21 13:24> Rhythm: abnormal rhythm <Kristen Quintero NP-C - Last Filed: 05/28/21 13:24> Heart sounds: S1 normal heart sound present and S2 normal heart sound present <Kristen Quintero NP-C - Last Filed: 05/28/21 13:24> Peripheral pulses: Peripheral pulses 2+ throughout <Kristen Quintero NP-C - Last Filed: 05/28/21 13:24> GI Inspection: Yes normal to inspection <Kristen Quintero NP-C - Last Filed: 05/28/21 13:24> Neuro General: patient oriented x3 <Kristen Quintero NP-C - Last Filed: 05/28/21 13:24> Extrem General: Yes normal to inspection and No edema <Kristen Quintero NP-C - Last Filed: 05/28/21 13:24> Objective Labs and Meds Result diagrams: : 05/28/21 05:40 05/28/21 05:40 <Kristen Quintero NP-C - Last Filed: 05/28/21 13:24> Lab results: Laboratory Results - last 24 hr 05/28/21 05/28/21 05/28/21 05:40 05:40 05:40 WBC 18.0 H RBC 6.24 H Hgb 17.6 Hct 49.7 MCV 79.6 L MCH 28.2 MCHC 35.4 RDW 17.5 H Plt Count 425 H MPV 9.9 Immature Gran % (Auto) 0.9 H Neut % (Auto) 82.0 H Lymph % (Auto) 8.1 L [place] % (Auto) 8.8 Eos % (Auto) 0.0 Baso % (Auto) 0.2 Lymph # (Auto) 1.5 [place] # (Auto) 1.6 H Eos # (Auto) 0.0 Baso # (Auto) 0.0 Abs Immat Gran (auto) 0.17 H Absolute Neuts (auto) 14.7 H Absolute Nucleated RBC 0.000 Nucleated RBC % (auto) 0.0 Smear Tech's Comments VERIFIED PT INR Sodium 137 Potassium 4.1 Chloride 92 L Carbon Dioxide 32 H Anion Gap 17 BUN 36 H Creatinine 1.21 Estim Creat Clear Calc 52.3 Estimated GFR 60 Random Glucose 172 H Calcium 9.1 Magnesium 2.6 Total Bilirubin 2.7 H Direct Bilirubin 2.0 H AST 448 H ALT 1058 H Alkaline Phosphatase 144 H C-Reactive Protein 3.17 H Total Protein 6.9 Albumin 3.1 L Procalcitonin 0.16 05/28/21 08:54 WBC RBC Hgb Hct MCV MCH MCHC RDW Plt Count MPV Immature Gran % (Auto) Neut % (Auto) Lymph % (Auto) [place] % (Auto) Eos % (Auto) Baso % (Auto) Lymph # (Auto) [place] # (Auto) Eos # (Auto) Baso # (Auto) Abs Immat Gran (auto) Absolute Neuts (auto) Absolute Nucleated RBC Nucleated RBC % (auto) Smear Tech's Comments PT 20.7 H INR 1.8 H D Sodium Potassium Chloride Carbon Dioxide Anion Gap BUN Creatinine Estim Creat Clear Calc Estimated GFR Random Glucose Calcium Magnesium Total Bilirubin Direct Bilirubin AST ALT Alkaline Phosphatase C-Reactive Protein Total Protein Albumin Procalcitonin <CARLY Smyth - Last Filed: 05/28/21 13:24> Imaging Radiologist's impression: Impressions Chest CT 05/27/21 11:09 IMPRESSION: Diffuse multifocal airspace opacities. Commonly reported imaging features of COVID-19 pneumonia are present. Other processes such as influenza pneumonia or organizing pneumonia can cause a similar imaging appearance, as can certain drug toxicities and connective tissue disorders. Fleischner guidelines were followed. <CARLY Smyth - Last Filed: 05/28/21 13:24> Progress Note: A&P Assessment and plan (1) Pneumonia: Status: Acute <CARLY Smyth - Last Filed: 05/28/21 13:24> Assessment and Plan: Admit with sob. BNP elevated 674. WBC elevated 35. CXR with diffuse patchy opacities. CT scan of chest showing multifocal airspace opacities, PNA. Echo shows EF 25%, inferoseptal, mid inferior and mid anteroseptal segments akinetic - seen on 01/2021 echo. EF at that time, 40-45%. Pt is being treated for PNA with IV antibiotics. He is also being treated for acute systolic HF with IV Lasix. Fluid balance this admit neg 1 liter. On exam he does not appear fluid overloaded. Lungs have expiratory wheezes. On O2 4 liters, sat 97%. Recommend repeat CXR in am to assess for interval improvement. Will check BNP in am. O2 supplement as needed for sat > 90%. Continue Lasix at this time. <CARLY Smyth - Last Filed: 05/28/21 13:24> (2) Acute heart failure: Status: Acute <CARLY Smyth - Last Filed: 05/28/21 13:24> Assessment and Plan: as above <CARLY Smyth - Last Filed: 05/28/21 13:24> (3) Atrial flutter with rapid ventricular response: Status: Acute <CARLY Smyth - Last Filed: 05/28/21 13:24> Assessment and Plan: Reported hx of PAF. This admit with atrial flutter, variable rates. Home Amiodarone stopped this admit due to elevated LFTs. He is on Metoprolol and received digoxin load yesterday for elevated rates. Tele today shows Aflutter rates ranging 60 up to 130. No reports of palpitations. Will continue Metoprolol at current dose. Will start Digoxin 0.125 mg EOD, starting tomorrow. Cr 1.21. He had been on Eliquis which is on hold due to his elevated LFTs which have improved some but remain elevated. Plan restart of Eliquis as soon as medically appropriate. Ongoing tele monitoring. <CARLY Smyth - Last Filed: 05/28/21 13:24> (4) Elevated liver enzymes: Status: Acute <CARLY Smyth - Last Filed: 05/28/21 13:24> Assessment and Plan: Atorvastatin and Amiodarone stopped. <CARLY Smyth - Last Filed: 05/28/21 13:24> (5) Atherosclerotic cardiovascular disease: Status: Acute <CARLY Smyth - Last Filed: 05/28/21 13:24> Assessment and Plan: Hx of CAD, CABG. Trops normal this admit. No reports of CP. <CARLY Smyth - Last Filed: 05/28/21 13:24> Fall Risk Details Current Medications: Current Medications Acetaminophen (Acetaminophen 325 Mg Tablet) 650 mg PO Q6H PRN PRN Reason: Pain, Mild (Pain Scale 1-3) Last Admin: 05/24/21 10:20 Dose: 650 mg Documented by: Albuterol Sulfate (Albuterol Sulfate (0.083%) 2.5 Mg/3 Ml Vial.Neb) 2.5 mg INHALE Q2H PRN PRN Reason: Shortness of Breath/Wheezing Last Admin: 05/24/21 00:11 Dose: 2.5 mg Documented by: Albuterol/Ipratropium (Albuterol/Iprat 2.5/0.5mg 3 Ml Ampul.Neb) 3 ml INHALE RQ4H WHILE AWAKE [facility] Last Admin: 05/28/21 11:42 Dose: Not Given Documented by: Clonidine HCl (Clonidine Hcl 0.1 Mg Tablet) 0.1 mg PO BID [facility]; Protocol Last Admin: 05/28/21 08:20 Dose: 0.1 mg Documented by: Clotrimazole (Clotrimazole 10 Mg Diana) 10 mg MUCOUS MEM 5XD [facility] Last Admin: 05/28/21 11:00 Dose: 10 mg Documented by: Furosemide (Furosemide 40 Mg/4 Ml Vial) 40 mg IVPUSH BID@0900,1800 [facility]; Protocol Last Admin: 05/28/21 08:21 Dose: 40 mg Documented by: Guaifenesin/Dextromethorphan (Guaifenesin Dm 100/10/5 Ml 5 Ml Syrup) 10 ml PO TID [facility] Last Admin: 05/28/21 08:30 Dose: 10 ml Documented by: Ceftriaxone Sodium 1 gm/ (Sodium Chloride) 50 mls @ 100 mls/hr IV Q24H [facility] Last Infusion: 05/27/21 16:21 Dose: Infused Documented by: Doxycycline Hyclate 100 mg/ (Sodium Chloride) 250 mls @ 166.67 mls/hr IV Q12H [facility] Last Infusion: 05/28/21 05:01 Dose: Infused Documented by: Levetiracetam (Levetiracetam 500 Mg Tablet) 500 mg PO BID [facility] Last Admin: 05/28/21 08:20 Dose: 500 mg Documented by: Methylprednisolone Sodium Succinate (Methylprednisolone Sod Succ 125 Mg/2 Ml Vial) 60 mg IVPUSH Q8H [facility] Last Admin: 05/28/21 05:00 Dose: 60 mg Documented by: Metoprolol Succinate (Metoprolol Succinate Er 100 Mg Tab.Er.24h) 100 mg PO DAILY [facility]; Protocol Multivitamins/Vitamin C (Multivitamin Tablet) 1 tab PO DAILY [facility] Last Admin: 05/28/21 08:20 Dose: 1 tab Documented by: Nicotine (Nicotine 21 Mg Patch.Td24) 21 mg TRANSDERMA DAILY [facility] Last Admin: 05/28/21 08:20 Dose: 21 mg Documented by: Nicotine Polacrilex (Nicotine Polacrilex 2 Mg Gum) 2 mg BUCCAL Q1H PRN PRN Reason: Nicotine Cravings Omeprazole (Omeprazole 20 Mg Capsule.Dr) 20 mg PO DAILY [facility] Last Admin: 05/28/21 08:20 Dose: 20 mg Documented by: Ondansetron HCl (Ondansetron Hcl 4 Mg/2 Ml Vial) 4 mg IVPUSH Q8H PRN PRN Reason: Nausea and Vomiting Last Admin: 05/26/21 15:27 Dose: 4 mg Documented by: Pentoxifylline (Pentoxifylline Er 400 Mg Tablet.Er) 400 mg PO BID [facility] Last Admin: 05/28/21 08:20 Dose: 400 mg Documented by: Sertraline HCl (Sertraline Hcl 25 Mg Tablet) 25 mg PO DAILY [facility] Last Admin: 05/28/21 08:20 Dose: 25 mg Documented by: Sodium Chloride (0.9 % Sodium Chloride Flush 3 Ml Syringe) 3 ml IVFLUSH QSHIFT [facility] Last Admin: 05/28/21 08:21 Dose: 3 ml Documented by: <CARLY Smyth - Last Filed: 05/28/21 13:24> Time Spent With Patient Time: Total time spent is greater than 50% in coordination of care (as documented) at patient's floor/unit and/or counseling patient: 24 <CARLY Smyth - Last Filed: 05/28/21 13:24> Time with patient: 15 - 24 minutes <CARLY Smyth - Last Filed: 05/28/21 13:24> Progress Note: Quality Stroke Does the patient have a stroke diagnosis?: No <CARLY Smyth - Last Filed: 05/28/21 13:24> Procedures Date of Service Date of Service: 05/28/21 <CARLY Smyth - Last Filed: 05/28/21 13:24>
--- NOTE | 2021-05-28 13:38 | MHC.RECOVRN ---
Met with pt this morning to check in and offer recovery support. Pt reports using 1 bag of heroin daily and has not experienced any withdrawal symptoms. Pt not feeling well and not interested in engaging further in conversation. T/w available as needed.
--- NOTE | 2021-05-28 13:41 | MHC.CM.PN ---
Per ROUNDS discussion, Patient is Hypoxic and not yet medically cleared for dc. Home is the goal for dc and CM will follow for possible need to adjust the dc plan.
--- NOTE | 2021-05-28 13:48 | HO.PM.IMPN ---
Subjective Subjective Date of Service: 05/28/21 Interval History: Dyspnea + cough improved On 4L O2 via [place] Review of Systems Review of Systems: Yes all other systems are reviewed and are negative Physical Exam Vital Signs: Vital Signs: Last Vital Signs Temp 97.1 F 05/28/21 12:00 Pulse 64 05/28/21 12:00 Resp 19 05/28/21 12:00 BP 135/69 05/28/21 12:00 Pulse Ox 94 05/28/21 12:00 BMI result Body Mass Index 22.2 Gen: in no acute distress HEENT: sclera anicteric, moist mucus membranes Neck: supple Lungs: clear to auscultation bilaterally Heart: irregular, no murmurs Abd: soft, non-tender, non-distended Ext: no edema Skin: warm/well-perfused Neuro: alert and oriented x3, no focal findings Psych: appropriate affect Objective Data Active Medications Acetaminophen (Acetaminophen 325 Mg Tablet) 650 mg PO Q6H PRN PRN Reason: Pain, Mild (Pain Scale 1-3) Last Admin: 05/24/21 10:20 Dose: 650 mg Documented by: GIRISH Albuterol Sulfate (Albuterol Sulfate (0.083%) 2.5 Mg/3 Ml Vial.Neb) 2.5 mg INHALE Q2H PRN PRN Reason: Shortness of Breath/Wheezing Last Admin: 05/24/21 00:11 Dose: 2.5 mg Documented by: OSCAR Albuterol/Ipratropium (Albuterol/Iprat 2.5/0.5mg 3 Ml Ampul.Neb) 3 ml INHALE RQ4H WHILE AWAKE [facility] Last Admin: 05/28/21 11:42 Dose: Not Given Documented by: LARISA Non-Admin Reason: Patient Asleep Clonidine HCl (Clonidine Hcl 0.1 Mg Tablet) 0.1 mg PO BID [facility]; Protocol Last Admin: 05/28/21 08:20 Dose: 0.1 mg Documented by: RAHEL Clotrimazole (Clotrimazole 10 Mg Diana) 10 mg MUCOUS MEM 5XD [facility] Last Admin: 05/28/21 11:00 Dose: 10 mg Documented by: RAHEL Digoxin (Digoxin 0.125 Mg Tablet) 0.125 mg PO Q2D [facility] Furosemide (Furosemide 40 Mg/4 Ml Vial) 40 mg IVPUSH BID@0900,1800 [facility]; Protocol Last Admin: 05/28/21 08:21 Dose: 40 mg Documented by: RAHEL Guaifenesin/Dextromethorphan (Guaifenesin Dm 100/10/5 Ml 5 Ml Syrup) 10 ml PO TID [facility] Last Admin: 05/28/21 08:30 Dose: 10 ml Documented by: RAHEL Ceftriaxone Sodium 1 gm/ (Sodium Chloride) 50 mls @ 100 mls/hr IV Q24H [facility] Last Infusion: 05/27/21 16:21 Dose: 0 mls/hr Documented by: COTEMA Doxycycline Hyclate 100 mg/ (Sodium Chloride) 250 mls @ 166.67 mls/hr IV Q12H [facility] Last Infusion: 05/28/21 05:01 Dose: 0 mls/hr Documented by: ODRISGloria Levetiracetam (Levetiracetam 500 Mg Tablet) 500 mg PO BID [facility] Last Admin: 05/28/21 08:20 Dose: 500 mg Documented by: RAHEL Methylprednisolone Sodium Succinate (Methylprednisolone Sod Succ 125 Mg/2 Ml Vial) 60 mg IVPUSH Q8H [facility] Last Admin: 05/28/21 05:00 Dose: 60 mg Documented by: LISE Metoprolol Succinate (Metoprolol Succinate Er 100 Mg Tab.Er.24h) 100 mg PO DAILY [facility]; Protocol Multivitamins/Vitamin C (Multivitamin Tablet) 1 tab PO DAILY [facility] Last Admin: 05/28/21 08:20 Dose: 1 tab Documented by: RAHEL Nicotine (Nicotine 21 Mg Patch.Td24) 21 mg TRANSDERMA DAILY [facility] Last Admin: 05/28/21 08:20 Dose: 21 mg Documented by: RAHEL Nicotine Polacrilex (Nicotine Polacrilex 2 Mg Gum) 2 mg BUCCAL Q1H PRN PRN Reason: Nicotine Cravings Omeprazole (Omeprazole 20 Mg Capsule.Dr) 20 mg PO DAILY [facility] Last Admin: 05/28/21 08:20 Dose: 20 mg Documented by: RAHEL Ondansetron HCl (Ondansetron Hcl 4 Mg/2 Ml Vial) 4 mg IVPUSH Q8H PRN PRN Reason: Nausea and Vomiting Last Admin: 05/26/21 15:27 Dose: 4 mg Documented by: WANG Pentoxifylline (Pentoxifylline Er 400 Mg Tablet.Er) 400 mg PO BID [facility] Last Admin: 05/28/21 08:20 Dose: 400 mg Documented by: RAHEL Sertraline HCl (Sertraline Hcl 25 Mg Tablet) 25 mg PO DAILY [facility] Last Admin: 05/28/21 08:20 Dose: 25 mg Documented by: RAHEL Sodium Chloride (0.9 % Sodium Chloride Flush 3 Ml Syringe) 3 ml IVFLUSH QSHIFT [facility] Last Admin: 05/28/21 08:21 Dose: 3 ml Documented by: RAHEL Labs CBC & Chem 7: 05/28/21 05:40 05/28/21 05:40 Labs: Laboratory Results - last 24 hr 05/28/21 05/28/21 05/28/21 05:40 05:40 05:40 MCV 79.6 L MCH 28.2 MCHC 35.4 RDW 17.5 H Plt Count 425 H MPV 9.9 Immature Gran % (Auto) 0.9 H Neut % (Auto) 82.0 H Lymph % (Auto) 8.1 L [place] % (Auto) 8.8 Eos % (Auto) 0.0 Baso % (Auto) 0.2 Lymph # (Auto) 1.5 [place] # (Auto) 1.6 H Eos # (Auto) 0.0 Baso # (Auto) 0.0 Abs Immat Gran (auto) 0.17 H Absolute Neuts (auto) 14.7 H Absolute Nucleated RBC 0.000 Nucleated RBC % (auto) 0.0 Smear Tech's Comments VERIFIED PT INR Anion Gap 17 Estim Creat Clear Calc 52.3 Estimated GFR 60 Random Glucose 172 H Calcium 9.1 Magnesium 2.6 Total Bilirubin 2.7 H Direct Bilirubin 2.0 H AST 448 H ALT 1058 H Alkaline Phosphatase 144 H C-Reactive Protein 3.17 H Total Protein 6.9 Albumin 3.1 L Procalcitonin 0.16 05/28/21 08:54 MCV MCH MCHC RDW Plt Count MPV Immature Gran % (Auto) Neut % (Auto) Lymph % (Auto) [place] % (Auto) Eos % (Auto) Baso % (Auto) Lymph # (Auto) [place] # (Auto) Eos # (Auto) Baso # (Auto) Abs Immat Gran (auto) Absolute Neuts (auto) Absolute Nucleated RBC Nucleated RBC % (auto) Smear Tech's Comments PT 20.7 H INR 1.8 H D Anion Gap Estim Creat Clear Calc Estimated GFR Random Glucose Calcium Magnesium Total Bilirubin Direct Bilirubin AST ALT Alkaline Phosphatase C-Reactive Protein Total Protein Albumin Procalcitonin Microbiology Microbiology Results: Microbiology 05/22/21 12:49 Blood Culture - Final Blood - Venous No growth after 5 days. 05/22/21 12:11 Blood Culture - Final Blood - Venous No growth after 5 days. Assessment and Plan (1) Pneumonitis: Status: Acute (2) Pneumonia: Status: Acute (3) Atrial flutter with rapid ventricular response: Status: Acute (4) Atherosclerotic cardiovascular disease: Status: Acute (5) Elevated liver enzymes: Status: Acute (6) Acute heart failure: Status: Acute (7) Acute exacerbation of chronic obstructive airways disease: Status: Acute Assessment and Plan: hospital d#7 66yo M with COPD not on home O2, CAD s/p CABG x2, combined systolic/diastolic HF, AF on apixaban, CVA without residual deficit, PAD, tobacco abuse [1.5 ppd], hx heroin + cocaine abuse, seizure disorder, possible VF arrest with status epilepticus back in Jan 2021 presented to his PCP's office with dyspnea and was noted to be hypoxic,arrived here hypotensive and hypoxic but fluid-responsive admitted for sepsis from multifocal PNA # acute hypoxic respiratory failure - wean suppl O2 as tolerated # PNA- CAP? atypical? amiodarone/heroin drug-induced lung injury? # COPD exacerbation - continue ceftriaxone + doxycycline d#4 - urine antigens for pneumococcus + Legionella pending - continue steroids as per Pulmonology - nebs - d/c'ed amiodarone # acute/chronic HFrEF - continue furosemide, trend I/O [negative 1L this admission cumulatively] + BNP - continue metoprolol - Cardiology following # atrial flutter with variable conduction - increased metoprolol, loaded with digoxin 05/27/20, start 0.125 mg q48h starting 05/29/21 - apixaban held due to elevated LFTs + INR, resume when improved # sepsis - resolved, no lactic acidosis, hypotension resolved # transaminasemia - LFTs significantly elevated,? related to drug toxicity versus passive congestion versus ischemic hepatitis - check for acute HAV/HBV/HCV/HIV with IgM/viral load - GI consult # thrush - clotrimazole troches.? HIV negative # AF with RVR likely after stopping amiodarone - continue metoprolol succinate, and given digoxin loading dose, heart rate improved, start daily digoxin dc Eliquis due to significantly elevated INR ? # history of peripheral arterial disease/coronary artery disease status post CABG - continue metoprolol succinate + pentoxyfilline; no aspirin or statin due to liver toxicity and elevated INR # seizure disorder - continue levetiracteam, take seizure precautions # mood disorder - on sertraline; since it can cause hepatotoxicity, dose tapered to 25 mg/d # opioid use disorder history of cocaine abuse - was on Suboxone in past but did not tolerate; drug toxicology positive for fentanyl, patient admits use of heroin - seen by Recovery Team; no withdrawal symptoms noted # tobacco abuse - on nicotine patch, counseling done # VTE ppx - compression boots # dispo - lives at home with , plan to return there upon discharge Quality Stroke Does the patient have a stroke diagnosis?: No VTE Prior VTE?: No VTE Risk Level:: Medical - moderate - high VTE Device Contraindication: N/A - Device Ordered VTE Drug Contraindication: N/A - Med Ordered
[2021-05-28] MEDS: cefTRIAXone sodium 1 GM in 0.9 % Sodium Chloride 50 ML IV (14:38)
--- NOTE | 2021-05-28 14:52 | PC.NURSE ---
Skin?wound assessment completed. Patient has blanchable redness to left heel. Sween 24 moisturizer cream applied to bilateral feet and legs. Heelbos applied to bilateral feet. Patient has dry skin, no other skin issues noted at this time.
--- NOTE | 2021-05-28 14:58 | P.EN_ITS ---
Event Note Date of Service: 05/28/21 Event Note: Imp: Acute hepatitis, with improving live renzymes, with some asso ciated mild jaundice and improving coagulopathy(? if he received Vit K?). Imaging studies are nonrevealing. He had been on some potential hepatotoxic meds(Atorvastatin and Amiodarone) at home, but he has been on those for at least a few months and things worsened significantly since admission. He had normal LFT's in 01/2021 and 02/2021. Hepatotoxic meds have been stopped since admission. The only other new meds are the antibiotics, but things are improving despite the continuation of the antibiotics. He had used nasal heroin prior to admission and denies any IVDA or EtOH. Aside from 05/22/21 there has been no documented hypotension. Hep B and C serologies are negative, Hep A is pending. Overall, he appears clinically stable without any ascites, clinical jaundice, nor encephalopathy. He has no edema to suggest right-sided heart failure either. Diff dx: Transaminases this high are usually due to etiologies of viral, drug(illicit or pharmaceutical), hypotension with shock liver, autoimmune, or portal/hepatic vein occlusion. I would favor the possibility of some illicit drug-induced hepatitis or possible viral. Rec: Since labs are improving I would not stop his antibiotics, but I would continue to hold any potential hepatotoxic meds as you are doing including Tylenol. Check the KVNG, Hep A studies, and Hep C viral load as you are doing(R/O acute Hep C despite the negative Hep C antibody). Recheck U/S with Doppler studies of portal and hepatic veins. F/U LFT's and PT/INR. Liver biopsy if labs worsen again, but since they are improving I would hold off on that. Will follow with you as needed. Thanks
[2021-05-28] MEDS: Albuterol/Iprat 2.5/0.5MG 3 ML AMPUL.NEB INHALE (15:37)
[2021-05-28 17:11] LABS: Anti Nuclear Antibody Screen NEGATIVE (NEGATIVE)
--- NOTE | 2021-05-28 17:15 | CONS_ITS ---
DATE OF SERVICE: 05/28/2021 REASON FOR CONSULTATION: Elevated LFTs. HISTORY OF PRESENT ILLNESS: This has been obtained from the patient and the medical record. The patient is a 66-year-old male, admitted here on May 22 for evaluation of what appears to be CHF and pneumonia. Over the past 6 days here in the hospital, he does report that he is feeling better from a respiratory standpoint, but does remain somewhat anorectic. He had normal liver profiles in January and February of 2021, but on admission here, his liver profile revealed an AST 151 and ALT of 173, with a normal total bilirubin and alkaline phosphatase. He has been on amiodarone and atorvastatin since an admission here back in January and he does report that he is somewhat compliant with his medication. He denies any previous history of liver disease and specifically denies any hepatitis nor jaundice in himself. He thinks his brother may have had some type of hepatitis. He denies any alcohol use. He did use nasal heroin several days before this admission, but denies any IV drug use nor alcohol. He denies using a medication at home such as acetaminophen nor NSAIDs. On May 24, he was started on doxycycline and ceftriaxone. However, at that point, his LFTs had already started to rise with an AST of 130 and ALT of 320, with a normal alkaline phosphatase and total bilirubin. On May 25, his AST went up to 1813 and the ALT went up to 1309. His alkaline phosphatase remained normal at 101 and the total bilirubin had increased to 1.9 with a direct bilirubin of only 1.5. Over the past few days, his liver enzymes have improved with his AST today being 448, although his ALT does remain elevated at 1058. His total bilirubin was 2.7 today with a direct bilirubin of 2.0, and the alkaline phosphatase was slightly elevated at 144. His total bilirubin yesterday was 2.6. His PT was 49.1 with an INR of 4.2 on May 26, but today his PT is 20.7 with INR 1.8. I cannot see anywhere that he got vitamin K. Of note, he had been on both Eliquis and aspirin at home. The patient denies any abdominal pain, increasing abdominal girth, edema, pruritus, nausea, nor vomiting. His appetite is diminished. He denies any diarrhea, melena, nor hematochezia. Besides using nasal heroin a few days before admission, he denies any subsequent drug use. His only episode of relative hypotension was on May 22, at which time his blood pressure was 89/60 though subsequent recorded blood pressures have been in the normal range except for a blood pressure of 94/65 on May 24. Imaging studies including ultrasound of the abdomen and CT of the chest, which did visualize his liver, described no significant liver abnormalities nor any signs of biliary obstruction. MEDICATIONS: His medications at home according to the medication list included amiodarone, Eliquis, aspirin, atorvastatin, vitamins, clonidine, Keppra, metoprolol, omeprazole, pentoxifylline, sertraline, and vitamin E. His medications here in the hospital include the IV doxycycline, IV ceftriaxone, albuterol, clonidine, digoxin, Lasix, Keppra, IV methylprednisolone, omeprazole, Zofran, pentoxifylline, and sertraline. Medications including atorvastatin, amiodarone, and metoprolol have been discontinued. He is on Tylenol, but only received a dose back on May 24. PAST MEDICAL HISTORY: He describes open-heart surgery for bypass about 10 years ago. Substance abuse. CHF, atrial fibrillation, previous cerebrovascular disease, but without residual deficit. Seizure disorder. COPD. He denies history of diabetes. He denies any other surgeries besides his bypass. SOCIAL HISTORY: He stopped using alcohol about 10 years ago. He does continue to have issues with substance abuse, having used both heroin and cocaine in the not too distant past. He denies any IV drug use. FAMILY HISTORY: Noncontributory. REVIEW OF SYSTEMS: CONSTITUTIONAL: His appetite is poor. CARDIAC: No chest pain. PULMONARY: No cough nor hemoptysis. GI: As above. URINARY: No dysuria, hematuria. PHYSICAL EXAMINATION: GENERAL: The patient is a chronically ill-appearing male. HEENT: Nonjaundiced. Anicteric sclerae. SKIN: No spider angiomata. NECK: Supple. CARDIAC: Normal S1, S2. ABDOMEN: Soft, nondistended, nontender without palpable organomegaly nor masses. There is no obvious ascites. EXTREMITIES: Without edema. He does have some bilateral palmar erythema. LABORATORY DATA: As above. COVID was negative. CT and ultrasound as above as well and specifically there was no evidence of any gallstones nor biliary disease. There was no sign of splenomegaly nor ascites. The liver appeared normal on the ultrasound. His hepatitis B and C studies were negative and hepatitis A is pending. KVNG is pending. Hepatitis C viral load is pending. CBC from today showed a white blood cell count of 18,000, hemoglobin 17.6, MCV 80, platelets 125,000, 0% eosinophils. PT 20.7 with INR 1.8 today. Normal electrolytes. BUN 36, creatinine 1.2. Total bilirubin 2.7, direct bilirubin 2.0, AST 448, ALT 1058, alkaline phosphatase 144, and albumin 3.1 today. C-reactive protein 3.2 today. Hepatitis B DNA is pending as well. IMPRESSION: Given the patient's clinical history, I suspect his acute hepatitis is most likely related to some illicit drug use based on having used heroin just before admission. I do not think it is related to his outpatient medications of atorvastatin or amiodarone given that the numbers have climbed rapidly and are beginning to improve fairly rapidly since admission. As far as the other possibilities causing significant elevation of liver enzymes, these would include viral hepatitis, hypotension with shock liver, autoimmune hepatitis, or something such as portal or hepatic vein occlusion. Again, I think the most likely would be that of a drug-induced etiology with primarily his use of heroin and/or some component of a shock liver in relation to some episodes of hypotension. At this point, he does not show any signs of liver failure given the improving PT/INR and his clinical exam. I do not think his antibiotics need to be stopped since his labs seem to be already improving fairly significantly despite the continuation of the antibiotics. However, I would continue to hold any potential hepatotoxic medications as you are doing including the atorvastatin, amiodarone, and the Tylenol. I would check the KVNG, hepatitis A studies, and hepatitis C viral load to rule out acute hepatitis C viral infection as you are doing. I have ordered a repeat ultrasound with Doppler studies to rule out the unlikely possibility of portal vein or hepatic vein thrombosis, which I think is unlikely given no sign of ascites or abdominal pain. I do not think a liver biopsy is presently needed as long as things continue to improve. If the liver enzymes suddenly worsen again, then I would consider stopping his antibiotics and then we may need to consider liver biopsy depending upon the clinical course. This has been discussed with the patient. Thank you for the consultation. MD FELICIA Veras/DONA / [phone] MTDGloria
[2021-05-28 18:21] LABS: Immunoglobulin E 1827 kU/L (<OR=114)
[2021-05-29] MEDS: Metoprolol Tartrate 25 MG TABLET PO (02:33)
[2021-05-29] MEDS: Doxycycline Hyclate 100 MG in 0.9 % Sodium Chloride 250 ML 166.6 MG IV ×2 (03:36→16:49)
[2021-05-29] MEDS: ondansetron HCL 4 MG/2 ML VIAL IVPUSH (03:44)
[2021-05-29 04:00] VITALS: BP 148/65; TEMP 36.1
[2021-05-29 04:20] LABS: SARS COV2 IgG Negative (Negative)
[2021-05-29 04:43] VITALS: PULSE 102
[2021-05-29] MEDS: methylPREDNISolone Sod Succ 125 MG/2 ML VIAL 60 MG IVPUSH (05:29)
[2021-05-29 06:01] LABS: INTERNATIONAL NORM RATIO 1.8 (0.9-1.1); Prothrombin Time 21.2 SEC (9.9-13.0)
[2021-05-29 06:02] LABS: Hematocrit 48.4 % (42.0-52.0); Hemoglobin 17.3 g/dl (14.0-18.0); Mean Corpuscular HGB Conc 35.7 g/dl (31.0-36.0); Mean Corpuscular Hemoglobin 28.6 pg (27.0-33.0); Platelet Count 396 X10*3/uL (160-400); Red Blood Count 6.05 X10*6/uL (4.60-5.80); Red Cell Distribution Width 16.9 % (11.0-16.0); White Blood Count 20.2 X10*3/uL (4.8-10.8)
[2021-05-29 06:14] LABS: Alanine Aminotransferase 961 U/L (0-40); Alkaline Phosphatase 133 U/L (39-117); Anion Gap 15 (12-20); Aspartate Amino Transferase 391 U/L (5-37); Bilirubin Total 2.6 mg/dL (0.0-1.0); Blood Urea Nitrogen 40 mg/dL (9-16); Calcium 8.6 mg/dL (8.4-10.2); Carbon Dioxide 33 mmol/L (22-29); Chloride 90 mmol/L (96-108); Creatinine Clr Calc Pharmacy 54.1; Estimated Glomerular Filt Rate > 60; Glucose Random 176 mg/dL (60-115); Potassium 3.4 mmol/L (3.3-5.1); Sodium 135 mmol/L (135-145); Total Protein 6.4 g/dL (6.5-8.0)
[2021-05-29 07:48] VITALS: BP 105/68; PULSE 109; RESP 19; TEMP 36.3; O2SAT 94
[2021-05-29] MEDS: 0.9 % Sodium Chloride Flush 3 ML SYRINGE IVFLUSH ×2 (08:12→15:10)
[2021-05-29] MEDS: Nicotine 21 MG PATCH.TD24 TRANSDERMA (08:12)
[2021-05-29] MEDS: guaiFENesin DM 100/10/5 ML 5 ML SYRUP 10 ML PO ×3 (08:12→20:54)
[2021-05-29] MEDS: levETIRAcetam 500 MG TABLET PO ×2 (08:13→20:55)
[2021-05-29] MEDS: Omeprazole 20 MG CAPSULE.DR PO (08:13)
[2021-05-29] MEDS: Metoprolol Succinate ER 100 MG TAB.ER.24H PO (08:13)
[2021-05-29] MEDS: Furosemide 40 MG/4 ML VIAL IVPUSH ×2 (08:13→18:30)
[2021-05-29] MEDS: cloNIDine HCL 0.1 MG TABLET PO ×2 (08:13→20:55)
[2021-05-29] MEDS: Multivitamin TABLET 1 TAB PO (08:13)
[2021-05-29] MEDS: Pentoxifylline ER 400 MG TABLET.ER PO ×2 (08:13→20:54)
[2021-05-29] MEDS: Sertraline HCL 25 MG TABLET PO (08:14)
[2021-05-29 09:12] LABS: B Type Natriuretic Peptide 433 pg/mL (<100)
[2021-05-29] MEDS: Digoxin 0.125 MG TABLET PO (10:08)
--- NOTE | 2021-05-29 11:50 | P.PNIM_ITS ---
Subjective Subjective Date of Service: 05/29/21 Interval History: Feels generalized weakness. Cough improved. Review of Systems Review of Systems: Yes all other systems are reviewed and are negative Physical Exam Vital Signs: Vital Signs: Last Vital Signs Temp 97.3 F 05/29/21 07:48 Pulse 109 H 05/29/21 07:48 Resp 19 05/29/21 07:48 BP 105/68 05/29/21 07:48 Pulse Ox 94 05/29/21 07:48 BMI result Body Mass Index 22.2 Gen: in no acute distress HEENT: sclera anicteric, moist mucus membranes Neck: supple Lungs: clear to auscultation bilaterally Heart: irregular, no murmurs Abd: soft, non-tender, non-distended Ext: no edema Skin: warm/well-perfused Neuro: alert and oriented x3, no focal findings Psych: appropriate affect Objective Data Active Medications Albuterol Sulfate (Albuterol Sulfate (0.083%) 2.5 Mg/3 Ml Vial.Neb) 2.5 mg IN HERNANDEZ Q2H PRN PRN Reason: Shortness of Breath/Wheezing Last Admin: 05/24/21 00:11 Dose: 2.5 mg Documented by: OSCAR Albuterol/Ipratropium (Albuterol/Iprat 2.5/0.5mg 3 Ml Ampul.Neb) 3 ml INHALE RQ4H WHILE AWAKE FORMERLY [facility], [facility] Last Admin: 05/29/21 08:36 Dose: Not Given Documented by: KARMEN Non-Admin Reason: Patient Refused Clonidine HCl (Clonidine Hcl 0.1 Mg Tablet) 0.1 mg PO BID [facility], [facility]; Protocol Last Admin: 05/29/21 08:13 Dose: 0.1 mg Documented by: WANG Clotrimazole (Clotrimazole 10 Mg Diana) 10 mg MUCOUS MEM 5XD [facility], [facility]–1983 Last Admin: 05/29/21 10:09 Dose: 10 mg Documented by: WANG Digoxin (Digoxin 0.125 Mg Tablet) 0.125 mg PO Q2D [facility], [facility] Last Admin: 05/29/21 10:08 Dose: 0.125 mg Documented by: WANG Furosemide (Furosemide 40 Mg/4 Ml Vial) 40 mg IVPUSH BID@0900,1800 [facility], [facility]1983; Protocol Last Admin: 05/29/21 08:13 Dose: 40 mg Documented by: WANG Guaifenesin/Dextromethorphan (Guaifenesin Dm 100/10/5 Ml 5 Ml Syrup) 10 ml PO TID [facility], [facility] Last Admin: 05/29/21 08:12 Dose: 10 ml Documented by: WANG Ceftriaxone Sodium 1 gm/ (Sodium Chloride) 50 mls @ 100 mls/hr IV Q24H [facility], [facility] Last Infusion: 05/28/21 16:15 Dose: 0 mls/hr Documented by: RAHEL Doxycycline Hyclate 100 mg/ (Sodium Chloride) 250 mls @ 166.67 mls/hr IV Q12H [facility], [facility] Last Infusion: 05/29/21 05:31 Dose: 0 mls/hr Documented by: LISE Levetiracetam (Levetiracetam 500 Mg Tablet) 500 mg PO BID [facility] Last Admin: 05/29/21 08:13 Dose: 500 mg Documented by: WANG Methylprednisolone Sodium Succinate (Methylprednisolone Sod Succ 125 Mg/2 Ml Vial) 60 mg IVPUSH Q8H [facility], [facility] Last Admin: 05/29/21 05:29 Dose: 60 mg Documented by: LISE Metoprolol Succinate (Metoprolol Succinate Er 100 Mg Tab.Er.24h) 100 mg PO DAILY [facility], [facility]; Protocol Last Admin: 05/29/21 08:13 Dose: 100 mg Documented by: WANG Multivitamins/Vitamin C (Multivitamin Tablet) 1 tab PO DAILY [facility] Last Admin: 05/29/21 08:13 Dose: 1 tab Documented by: WANG Nicotine (Nicotine 21 Mg Patch.Td24) 21 mg TRANSDERMA DAILY [facility], [facility] Last Admin: 05/29/21 08:12 Dose: 21 mg Documented by: WANG Nicotine Polacrilex (Nicotine Polacrilex 2 Mg Gum) 2 mg BUCCAL Q1H PRN PRN Reason: Nicotine Cravings Omeprazole (Omeprazole 20 Mg Capsule.Dr) 20 mg PO DAILY [facility] Last Admin: 05/29/21 08:13 Dose: 20 mg Documented by: WANG Ondansetron HCl (Ondansetron Hcl 4 Mg/2 Ml Vial) 4 mg IVPUSH Q8H PRN PRN Reason: Nausea and Vomiting Last Admin: 05/29/21 03:44 Dose: 4 mg Documented by: LISE Pentoxifylline (Pentoxifylline Er 400 Mg Tablet.Er) 400 mg PO BID [facility] Last Admin: 05/29/21 08:13 Dose: 400 mg Documented by: WANG Sertraline HCl (Sertraline Hcl 25 Mg Tablet) 25 mg PO DAILY [facility] Last Admin: 05/29/21 08:14 Dose: 25 mg Documented by: WANG Sodium Chloride (0.9 % Sodium Chloride Flush 3 Ml Syringe) 3 ml IVFLUSH QSHIFT [facility] Last Admin: 05/29/21 08:12 Dose: 3 ml Documented by: WANG Labs CBC & Chem 7: 05/29/21 05:32 05/29/21 05:32 Labs: Laboratory Results - last 24 hr 05/26/21 05/26/21 05/28/21 15:32 15:33 08:34 MCV MCH MCHC RDW Plt Count MPV Absolute Nucleated RBC Nucleated RBC % (auto) PT INR Anion Gap Estim Creat Clear Calc Estimated GFR Random Glucose Calcium Total Bilirubin Direct Bilirubin AST ALT Alkaline Phosphatase B-Natriuretic Peptide Total Protein Albumin IgE 1827 H KVNG Screen NEGATIVE KVNG Titer TNP KVNG Titer 2 TNP KVNG Titer 3 TNP KVNG Pattern TNP KVNG Pattern 2 TNP KVNG Pattern 3 TNP SARS-CoV-2 IgG Ab Negative 05/29/21 05/29/21 05/29/21 05:32 05:32 05:32 MCV 80.0 MCH 28.6 MCHC 35.7 RDW 16.9 H Plt Count 396 MPV 10.0 Absolute Nucleated RBC 0.000 Nucleated RBC % (auto) 0.0 PT 21.2 H INR 1.8 H Anion Gap 15 Estim Creat Clear Calc 54.1 Estimated GFR > 60 Random Glucose 176 H Calcium 8.6 Total Bilirubin 2.6 H Direct Bilirubin 2.0 H AST 391 H ALT 961 H Alkaline Phosphatase 133 H B-Natriuretic Peptide Total Protein 6.4 L Albumin 3.0 L IgE KVNG Screen KVNG Titer KVNG Titer 2 KVNG Titer 3 KVNG Pattern KVNG Pattern 2 KVNG Pattern 3 SARS-CoV-2 IgG Ab 05/29/21 05:32 MCV MCH MCHC RDW Plt Count MPV Absolute Nucleated RBC Nucleated RBC % (auto) PT INR Anion Gap Estim Creat Clear Calc Estimated GFR Random Glucose Calcium Total Bilirubin Direct Bilirubin AST ALT Alkaline Phosphatase B-Natriuretic Peptide 433 H Total Protein Albumin IgE KVNG Screen KVNG Titer KVNG Titer 2 KVNG Titer 3 KVNG Pattern KVNG Pattern 2 KVNG Pattern 3 SARS-CoV-2 IgG Ab Assessment and Plan (1) Pneumonitis: Status: Acute (2) Pneumonia: Status: Acute (3) Atrial flutter with rapid ventricular response: Status: Acute (4) Atherosclerotic cardiovascular disease: Status: Acute (5) Elevated liver enzymes: Status: Acute (6) Acute heart failure: Status: Acute (7) Acute exacerbation of chronic obstructive airways disease: Status: Acute Assessment and Plan: hospital d#8 66yo M with COPD not on home O2, CAD s/p CABG x2, combined systolic/diastolic HF, AF on apixaban, CVA without residual deficit, PAD, tobacco abuse [1.5 ppd], hx heroin + cocaine abuse, seizure disorder, possible VF arrest with status epilepticus back in Jan 2021 presented to his PCP's office with dyspnea and was noted to be hypoxic,arrived here hypotensive and hypoxic but fluid-responsive admitted for sepsis from multifocal PNA # acute hypoxic respiratory failure - wean suppl O2 as tolerated # PNA- CAP? atypical? amiodarone/heroin drug-induced lung injury? # COPD exacerbation - continue ceftriaxone + doxycycline d#5 - urine antigens for pneumococcus + Legionella pending - wean steroids - nebs - d/c'ed amiodarone # acute/chronic HFrEF - continue furosemide, trend I/O [negative 3.2L this admission cumulatively] + BNP - continue metoprolol - Cardiology following # atrial flutter with variable conduction - continue metoprolol, loaded with digoxin 05/27/20, start 0.125 mg q48h today - apixaban held due to elevated LFTs + INR, resume when improved # sepsis - resolved, no lactic acidosis, hypotension resolved # transaminasemia/acute liver injury - LFTs significantly elevated,? related to drug toxicity versus passive congestion versus ischemic hepatitis - check for acute HAV/HBV/HCV/HIV with IgM/viral load, also abd US Dopplers pending - GI consulted: unlikely due to chronic use of statin or amiodarone # thrush - clotrimazole troches.? HIV negative ? # history of peripheral arterial disease/coronary artery disease status post CABG - continue metoprolol succinate + pentoxyfilline; no aspirin or statin due to liver toxicity and elevated INR # seizure disorder - continue levetiracteam, take seizure precautions # mood disorder - tapered of sertraline in case it was contributing to liver injury # opioid use disorder history of cocaine abuse - was on Suboxone in past but did not tolerate; drug toxicology positive for fentanyl, patient admits use of heroin - seen by Recovery Team; no withdrawal symptoms noted # tobacco abuse - on nicotine patch, counseling done # VTE ppx - compression boots # dispo - lives at home with , plan to return there upon discharge Quality Stroke Does the patient have a stroke diagnosis?: No VTE Prior VTE?: No VTE Risk Level:: Medical - moderate - high VTE Device Contraindication: N/A - Device Ordered VTE Drug Contraindication: N/A - Med Ordered
[2021-05-29 11:51] VITALS: BP 107/62; PULSE 66; RESP 16; TEMP 36.6; O2SAT 94
--- NOTE | 2021-05-29 12:51 | P.PNCA_ITS ---
Subjective Subjective Date of Service: 05/29/21 <CARLY Smyth - Last Filed: 05/29/21 13:03> 06/01/21 <Mukesh Alvares MD - Last Filed: 06/01/21 17:53> Principal diagnosis: sob, BNP elevated, CMP, PNA <CARLY Smyth - Last Filed: 05/29/21 13:03> Interval history: Cardiology follow up for sob, BNP, CMP. Seen at 1035. Today he reports still not feeling well. Has body aches. Reports breathing is unlabored. Less coughing noted. No chest pains or heart palpitations. Just went for CXR and ultrasound. Wants to sleep. <CARLY Smyth Last Filed: 05/29/21 13:03> Review of Systems Review of Systems as above <CARLY Smyth - Last Filed: 05/29/21 13:03> Yes all other systems are reviewed and are negative <CARLY Smyth - Last Filed: 05/29/21 13:03> Physical Exam Vital Signs: Last Vital Signs Temp 97.8 F 05/29/21 11:51 Pulse 66 05/29/21 11:51 Resp 16 05/29/21 11:51 BP 107/62 05/29/21 11:51 Pulse Ox 94 05/29/21 11:51 BMI result Body Mass Index 22.2 <CARLY Smyth - Last Filed: 05/29/21 13:03> Const General: cooperative, no acute distress, alert and awake <CARLY Smyth - Last Filed: 05/29/21 13:03> Orientation/consciousness: patient oriented x3 <CARLY Smyth Last Filed: 05/29/21 13:03> Eyes Conjunctivae: conjunctivae normal <CARLY Smyth Last Filed: 05/29/21 13:03> Neck Neck: Yes normal visual inspection and Yes no JVD <CARLY Smyth Last Filed: 05/29/21 13:03> Resp Effort & Inspection: normal respiratory effort, able to speak in complete sentences and not labored <Kristen Quintero NP - Last Filed: 05/29/21 13:03> Auscultation: clear to auscultation bilaterally, no crackles, no rales, no rhonchi and no wheezes <Kristen Quintero NP - Last Filed: 05/29/21 13:03> Cardio Other: No noted JVD - has facial hair making assessment more difficult <Kristen Quintero NP - Last Filed: 05/29/21 13:03> Palpation: normal PMI [facility] Last Filed: 05/29/21 13:03> Rhythm: abnormal rhythm regularly irregular <Kristen Ingrid [facility] - Last Filed: 05/29/21 13:03> Heart sounds: S1 normal heart sound present and S2 normal heart sound present <Kristen Quintero [facility] - Last Filed: 05/29/21 13:03> Peripheral pulses: Peripheral pulses 2+ throughout <Kristen Quintero [facility] - Last Filed: 05/29/21 13:03> GI Inspection: Yes normal to inspection <Kristen Quintero [facility] - Last Filed: 05/29/21 13:03> Neuro General: patient oriented x3 <Kristen Quintero [facility] - Last Filed: 05/29/21 13:03> Extrem General: Yes normal to inspection and No edema <Kristen Quintero [facility] - Last Filed: 05/29/21 13:03> Objective Labs and Meds Result diagrams: : 06/01/21 05:32 06/01/21 05:32 <Kristen Quintero [facility] - Last Filed: 05/29/21 13:03> Lab results: Laboratory Results - last 24 hr 05/26/21 05/26/21 05/28/21 15:32 15:33 08:34 WBC RBC Hgb Hct MCV MCH MCHC RDW Plt Count MPV Absolute Nucleated RBC Nucleated RBC % (auto) PT INR Sodium Potassium Chloride Carbon Dioxide Anion Gap BUN Creatinine Estim Creat Clear Calc Estimated GFR Random Glucose Calcium Total Bilirubin Direct Bilirubin AST ALT Alkaline Phosphatase B-Natriuretic Peptide Total Protein Albumin IgE 1827 H KVNG Screen NEGATIVE KVNG Titer TNP KVNG Titer 2 TNP KVNG Titer 3 TNP KVNG Pattern TNP KVNG Pattern 2 TNP KVNG Pattern 3 TNP SARS-CoV-2 IgG Ab Negative 05/29/21 05/29/21 05/29/21 05:32 05:32 05:32 WBC 20.2 H RBC 6.05 H Hgb 17.3 Hct 48.4 MCV 80.0 MCH 28.6 MCHC 35.7 RDW 16.9 H Plt Count 396 MPV 10.0 Absolute Nucleated RBC 0.000 Nucleated RBC % (auto) 0.0 PT 21.2 H INR 1.8 H Sodium 135 Potassium 3.4 Chloride 90 L Carbon Dioxide 33 H Anion Gap 15 BUN 40 H Creatinine 1.17 Estim Creat Clear Calc 54.1 Estimated GFR > 60 Random Glucose 176 H Calcium 8.6 Total Bilirubin 2.6 H Direct Bilirubin 2.0 H AST 391 H ALT 961 H Alkaline Phosphatase 133 H B-Natriuretic Peptide Total Protein 6.4 L Albumin 3.0 L IgE KVNG Screen KVNG Titer KVNG Titer 2 KVNG Titer 3 KVNG Pattern KVNG Pattern 2 KVNG Pattern 3 SARS-CoV-2 IgG Ab 05/29/21 05:32 WBC RBC Hgb Hct MCV MCH MCHC RDW Plt Count MPV Absolute Nucleated RBC Nucleated RBC % (auto) PT INR Sodium Potassium Chloride Carbon Dioxide Anion Gap BUN Creatinine Estim Creat Clear Calc Estimated GFR Random Glucose Calcium Total Bilirubin Direct Bilirubin AST ALT Alkaline Phosphatase B-Natriuretic Peptide 433 H Total Protein Albumin IgE KVNG Screen KVNG Titer KVNG Titer 2 KVNG Titer 3 KVNG Pattern KVNG Pattern 2 KVNG Pattern 3 SARS-CoV-2 IgG Ab <CARLY Smyth - Last Filed: 05/29/21 13:03> Imaging Radiologist's impression: Impressions Chest X-Ray 05/29/21 09:30 IMPRESSION: Post-CABG changes. Resolved groundglass and interstitial disease from previous recent exams. <CARLY Smyth - Last Filed: 05/29/21 13:03> Progress Note: A&P Assessment and plan (1) Pneumonia: Status: Acute <CARLY Smyth - Last Filed: 05/29/21 13:03> Assessment and Plan: Admit with sob. BNP elevated 674. WBC elevated 35. CXR with diffuse patchy opacities. CT scan of chest showing multifocal airspace opacities, PNA. Echo shows EF 25%,? inferoseptal, mid inferior and mid anteroseptal segments akinetic - seen on 01/2021 echo. EF at that time, 40-45%. Drop in EF could be related to atrial flutter with elevated rates. Pt is being treated for PNA with IV antibiotics. He is also being treated for acute systolic HF with IV Lasix. Fluid balance this admit neg 3 liters. On exam he does not appear fluid overloaded. Lungs sound clear today. CXR shows resolution of patchy opacities. He still has elevated WBC 20. On O2 4 liters, sat 97%. BNP today 433. BUN up to 40, Cr 1.17. Recommend continue IV lasix today and eval for change to PO tomorrow. He does not normally take Lasix at home. Continue to treat for PNA/ infection. Continue strict I+O monitoring, close monitoring of electrolytes and kidney function. <CARLY Smyth - Last Filed: 05/29/21 13:03> (2) Acute heart failure: Status: Acute <CARLY Smyth - Last Filed: 05/29/21 13:03> Assessment and Plan: as above <CARLY Smyth - Last Filed: 05/29/21 13:03> (3) Atrial flutter with rapid ventricular response: Status: Acute <CARLY Smyth - Last Filed: 05/29/21 13:03> Assessment and Plan: Reported hx of PAF. This admit with atrial flutter, variable rates. Home Amiodarone stopped this admit due to elevated LFTs.? He is on Metoprolol and has been started on EOD Digoxin for rate control. Tele today shows Aflutter rates variable ranging 60 up to 130. No reports of palpitations. Will continue Metoprolol and Digoxin. Keep of Amiodarone. LFTs are improving. He had been on Eliquis which is on hold due to his elevated LFTs which have improved some but remain elevated. Plan restart of Eliquis as soon as medically appropriate. Ongoing tele monitoring. <CARLY Smyth - Last Filed: 05/29/21 13:03> (4) Atherosclerotic cardiovascular disease: Status: Acute <CARLY Smyth - Last Filed: 05/29/21 13:03> Assessment and Plan: Hx of CAD, CABG. Trops normal this admit. No reports of CP. Statin on hold due to elevated LFT. Not on aspirin as he is usually on Eliquis. On metoprolol. <CARLY Smyth - Last Filed: 05/29/21 13:03> Assessment and Plan: Patient seen and examined at bedside. Clinically not in heart failure. Continues to have atrial flutter with variable rate controlled. Thank you for allowing me to participate in the care of your patient. Please feel free to contact me if you have any questions. <Mukesh Alvares MD - Last Filed: 06/01/21 17:53> Fall Risk Details Current Medications: Current Medications Albuterol Sulfate (Albuterol Sulfate (0.083%) 2.5 Mg/3 Ml Vial.Neb) 2.5 mg IN HERNANDEZ Q2H PRN PRN Reason: Shortness of Breath/Wheezing Last Admin: 05/24/21 00:11 Dose: 2.5 mg Documented by: Albuterol/Ipratropium (Albuterol/Iprat 2.5/0.5mg 3 Ml Ampul.Neb) 3 ml INHALE RQ4H WHILE AWAKE [facility] Last Admin: 05/29/21 12:14 Dose: Not Given Documented by: Clonidine HCl (Clonidine Hcl 0.1 Mg Tablet) 0.1 mg PO BID [facility]; Protocol Last Admin: 05/29/21 08:13 Dose: 0.1 mg Documented by: Clotrimazole (Clotrimazole 10 Mg Diana) 10 mg MUCOUS MEM 5XD [facility] Last Admin: 05/29/21 10:09 Dose: 10 mg Documented by: Digoxin (Digoxin 0.125 Mg Tablet) 0.125 mg PO Q2D [facility] Last Admin: 05/29/21 10:08 Dose: 0.125 mg Documented by: Furosemide (Furosemide 40 Mg/4 Ml Vial) 40 mg IVPUSH BID@0900,1800 [facility]; Protocol Last Admin: 05/29/21 08:13 Dose: 40 mg Documented by: Guaifenesin/Dextromethorphan (Guaifenesin Dm 100/10/5 Ml 5 Ml Syrup) 10 ml PO TID [facility] Last Admin: 05/29/21 08:12 Dose: 10 ml Documented by: Ceftriaxone Sodium 1 gm/ (Sodium Chloride) 50 mls @ 100 mls/hr IV Q24H [facility] Last Infusion: 05/28/21 16:15 Dose: Infused Documented by: Doxycycline Hyclate 100 mg/ (Sodium Chloride) 250 mls @ 166.67 mls/hr IV Q12H [facility] Last Infusion: 05/29/21 05:31 Dose: Infused Documented by: Levetiracetam (Levetiracetam 500 Mg Tablet) 500 mg PO BID [facility] Last Admin: 05/29/21 08:13 Dose: 500 mg Documented by: Methylprednisolone Sodium Succinate (Methylprednisolone Sod Succ 40 Mg/Ml Vial) 40 mg IVPUSH Q8H [facility] Metoprolol Succinate (Metoprolol Succinate Er 100 Mg Tab.Er.24h) 100 mg PO DAILY [facility]; Protocol Last Admin: 05/29/21 08:13 Dose: 100 mg Documented by: Multivitamins/Vitamin C (Multivitamin Tablet) 1 tab PO DAILY [facility] Last Admin: 05/29/21 08:13 Dose: 1 tab Documented by: Nicotine (Nicotine 21 Mg Patch.Td24) 21 mg TRANSDERMA DAILY [facility] Last Admin: 05/29/21 08:12 Dose: 21 mg Documented by: Nicotine Polacrilex (Nicotine Polacrilex 2 Mg Gum) 2 mg BUCCAL Q1H PRN PRN Reason: Nicotine Cravings Omeprazole (Omeprazole 20 Mg Capsule.Dr) 20 mg PO DAILY [facility] Last Admin: 05/29/21 08:13 Dose: 20 mg Documented by: Ondansetron HCl (Ondansetron Hcl 4 Mg/2 Ml Vial) 4 mg IVPUSH Q8H PRN PRN Reason: Nausea and Vomiting Last Admin: 05/29/21 03:44 Dose: 4 mg Documented by: Pentoxifylline (Pentoxifylline Er 400 Mg Tablet.Er) 400 mg PO BID [facility] Last Admin: 05/29/21 08:13 Dose: 400 mg Documented by: Sertraline HCl (Sertraline Hcl 25 Mg Tablet) 25 mg PO DAILY [facility] Last Admin: 05/29/21 08:14 Dose: 25 mg Documented by: Sodium Chloride (0.9 % Sodium Chloride Flush 3 Ml Syringe) 3 ml IVFLUSH QSHIFT [facility] Last Admin: 05/29/21 08:12 Dose: 3 ml Documented by: Kavita Quintero [employer] - Last Filed: 05/29/21 13:03> Time Spent With Patient Time: Total time spent is greater than 50% in coordination of care (as docu mented) at patient's floor/unit and/or counseling patient: 24 <CARLY Smyth - Last Filed: 05/29/21 13:03> Time with patient: 15 - 24 minutes <CARLY Smyth - Last Filed: 05/29/21 13:03> Progress Note: Quality Stroke Does the patient have a stroke diagnosis?: No <CARLY Smyth - Last Filed: 05/29/21 13:03> Procedures Date of Service Date of Service: 05/29/21 <CARLY Smyth - Last Filed: 05/29/21 13:03>
[2021-05-29] MEDS: methylPREDNISolone Sod Succ 40 MG/ML VIAL IVPUSH ×2 (15:11→22:25)
[2021-05-29] MEDS: cefTRIAXone sodium 1 GM in 0.9 % Sodium Chloride 50 ML IV (15:11)
[2021-05-29 15:24] VITALS: BP 97/57; PULSE 76; RESP 18; TEMP 36.4; O2SAT 96
[2021-05-29 20:00] VITALS: BP 114/70; PULSE 86; RESP 18; TEMP 36.3; O2SAT 98
[2021-05-30] VITALS (7 sets, daily range): BP systolic 100–136; BP diastolic 20–81; PULSE 66–109; RESP 15–20; TEMP 36–36.6; O2SAT 91–96; BMI 22.2
[2021-05-30] MEDS: 0.9 % Sodium Chloride Flush 3 ML SYRINGE IVFLUSH ×3 (00:21→15:44)
[2021-05-30] MEDS: Doxycycline Hyclate 100 MG in 0.9 % Sodium Chloride 250 ML 166.6 MG IV ×2 (03:44→15:43)
[2021-05-30 04:34] LABS: Hepatitis A Antibody IgG REACTIVE (Nonreactive); Hepatitis A Antibody IgM 0.19 Index (0-0.79); ~Hepatitis A Antibody IgG 1.68 S/CO (0.00-0.99); ~Hepatitis A Antibody IgM Nonreactive (Nonreactive)
[2021-05-30 05:00] LABS: Hematocrit 48.6 % (42.0-52.0); Hemoglobin 17.3 g/dl (14.0-18.0); Mean Corpuscular HGB Conc 35.6 g/dl (31.0-36.0); Mean Corpuscular Hemoglobin 28.3 pg (27.0-33.0); Mean Corpuscular Volume 79.4 fL (80.0-98.0); Mean Platelet Volume 9.9 fL (9.4-12.4); Platelet Count 387 X10*3/uL (160-400); Red Blood Count 6.12 X10*6/uL (4.60-5.80); White Blood Count 20.3 X10*3/uL (4.8-10.8)
[2021-05-30 05:08] LABS: INTERNATIONAL NORM RATIO 1.9 (0.9-1.1); Prothrombin Time 21.4 SEC (9.9-13.0)
[2021-05-30 05:25] LABS: Alanine Aminotransferase 948 U/L (0-40); Alkaline Phosphatase 130 U/L (39-117); Anion Gap 21 (12-20); Aspartate Amino Transferase 420 U/L (5-37); Blood Urea Nitrogen 43 mg/dL (9-16); Calcium 8.7 mg/dL (8.4-10.2); Carbon Dioxide 30 mmol/L (22-29); Chloride 87 mmol/L (96-108); Creatinine Clr Calc Pharmacy 49.5; Estimated Glomerular Filt Rate 56; Glucose Random 179 mg/dL (60-115); Potassium 3.8 mmol/L (3.3-5.1); Sodium 134 mmol/L (135-145); Total Protein 6.7 g/dL (6.5-8.0)
[2021-05-30] MEDS: methylPREDNISolone Sod Succ 40 MG/ML VIAL IVPUSH (05:34)
[2021-05-30 05:36] LABS: Procalcitonin 0.21 ng/mL
[2021-05-30] MEDS: Nicotine 21 MG PATCH.TD24 TRANSDERMA (08:57)
[2021-05-30] MEDS: Omeprazole 20 MG CAPSULE.DR PO (08:58)
[2021-05-30] MEDS: Multivitamin TABLET 1 TAB PO (08:58)
[2021-05-30] MEDS: cloNIDine HCL 0.1 MG TABLET PO ×2 (08:58→20:49)
[2021-05-30] MEDS: Furosemide 40 MG/4 ML VIAL IVPUSH (08:58)
[2021-05-30] MEDS: Metoprolol Succinate ER 100 MG TAB.ER.24H PO (08:58)
[2021-05-30] MEDS: guaiFENesin DM 100/10/5 ML 5 ML SYRUP 10 ML PO ×3 (08:58→20:49)
[2021-05-30] MEDS: Pentoxifylline ER 400 MG TABLET.ER PO ×2 (08:58→20:50)
[2021-05-30] MEDS: Sertraline HCL 25 MG TABLET PO (08:58)
[2021-05-30] MEDS: levETIRAcetam 500 MG TABLET PO ×2 (08:58→20:49)
--- NOTE | 2021-05-30 09:22 | P.PNCA_ITS ---
Subjective Subjective Date of Service: 05/30/21 <CARLY Smyth - Last Filed: 05/30/21 09:58> 06/01/21 <Mukesh Alvares MD - Last Filed: 06/01/21 17:55> Principal diagnosis: sob, BNP elevated, CMP, aflutter, PNA <CARLY Smyth - Last Filed: 05/30/21 09:58> Interval history: Cardiology follow up for HF, atrial flutter. Seen at 0900. Today he continues to report body aches as his primary physical complaint. He reports breathing comfortable at rest but he did notice shortness of breath when walking to bathroom in room. Wearing O2 with nasal cannula. Has not tired going without it. No reports of chest pain or heart palpitations. No dizziness. Denies abdominal discomfort. <CARLY Smyth - Last Filed: 05/30/21 09:58> Review of Systems Review of Systems as above <CARLY Smyth - Last Filed: 05/30/21 09:58> Yes all other systems are reviewed and are negative <CARLY Smyth - Last Filed: 05/30/21 09:58> Physical Exam Vital Signs: Last Vital Signs Temp 97.0 F 05/30/21 07:10 Pulse 78 05/30/21 07:10 Resp 19 05/30/21 07:10 BP 115/72 05/30/21 07:10 Pulse Ox 96 05/30/21 07:10 BMI result Body Mass Index 22.2 <CARLY Smyth - Last Filed: 05/30/21 09:58> Const General: cooperative, no acute distress, alert and awake <CARLY Smyth - Last Filed: 05/30/21 09:58> Orientation/consciousness: patient oriented x3 <CARLY Smyth Last Filed: 05/30/21 09:58> Neck Neck: Yes normal visual inspection and Yes no JVD <CARLY Smyth Last Filed: 05/30/21 09:58> Resp Effort & Inspection: normal respiratory effort, able to speak in complete sentences and not labored <CARLY Smyth Last Filed: 05/30/21 09:58> Auscultation: clear to auscultation bilaterally, no crackles, no rales, no rhonchi and no wheezes <[facility] Last Filed: 05/30/21 09:58> Cardio Palpation: normal PMI <Kristen Quintero [facility] Last Filed: 05/30/21 09:58> Rate: regular rate <Kristen Ingrid [facility] Last Filed: 05/30/21 09:58> Rhythm: abnormal rhythm regularly irregular <Kristen Ingrid [facility] Last Filed: 05/30/21 09:58> Heart sounds: S1 normal heart sound present and S2 normal heart sound present <Kristen Quintero [facility] Last Filed: 05/30/21 09:58> Peripheral pulses: Peripheral pulses 2+ throughout <Kristen Ingrid [facility] Last Filed: 05/30/21 09:58> GI Inspection: Yes normal to inspection <Kristen Ingrid [facility] Last Filed: 05/30/21 09:58> Neuro General: patient oriented x3 <Kristen Ingrid [facility] Last Filed: 05/30/21 09:58> Extrem General: Yes normal to inspection and No edema <Kristen Quintero [facility] Last Filed: 05/30/21 09:58> Objective Labs and Meds Result diagrams: : 06/01/21 05:32 06/01/21 05:32 <Kristen Quintero [facility] Last Filed: 05/30/21 09:58> Lab results: Laboratory Results - last 24 hr 05/26/21 05/28/21 05/30/21 15:33 08:35 04:13 WBC 20.3 H RBC 6.12 H Hgb 17.3 Hct 48.6 MCV 79.4 L MCH 28.3 MCHC 35.6 RDW 17.0 H Plt Count 387 MPV 9.9 Absolute Nucleated RBC 0.000 Nucleated RBC % (auto) 0.0 PT INR Sodium Potassium Chloride Carbon Dioxide Anion Gap BUN Creatinine Estim Creat Clear Calc Estimated GFR Random Glucose Calcium Total Bilirubin Direct Bilirubin AST ALT Alkaline Phosphatase Total Protein Albumin Procalcitonin KVNG Titer TNP KVNG Titer 2 TNP KVNG Titer 3 TNP KVNG Pattern TNP KVNG Pattern 2 TNP KVNG Pattern 3 TNP Hepatitis A IgG Ab REACTIVE Hepatitis A IgM Ab Nonreactive 05/30/21 05/30/21 05/30/21 04:13 04:13 04:13 WBC RBC Hgb Hct MCV MCH MCHC RDW Plt Count MPV Absolute Nucleated RBC Nucleated RBC % (auto) PT 21.4 H INR 1.9 H Sodium 134 L Potassium 3.8 Chloride 87 L Carbon Dioxide 30 H Anion Gap 21 H BUN 43 H Creatinine 1.28 Estim Creat Clear Calc 49.5 Estimated GFR 56 Random Glucose 179 H Calcium 8.7 Total Bilirubin 3.0 H Direct Bilirubin 2.0 H AST 420 H ALT 948 H Alkaline Phosphatase 130 H Total Protein 6.7 Albumin 3.0 L Procalcitonin 0.21 KVNG Titer KVNG Titer 2 KVNG Titer 3 KVNG Pattern KVNG Pattern 2 KVNG Pattern 3 Hepatitis A IgG Ab Hepatitis A IgM Ab <CARLY Smyth - Last Filed: 05/30/21 09:58> Imaging Radiologist's impression: Impressions Chest X-Ray 05/29/21 09:30 IMPRESSION: Post-CABG changes. Resolved groundglass and interstitial disease from previous recent exams. Doppler Study Ultrasound 05/29/21 09:44 IMPRESSION: Normal liver Doppler exam. No evidence of portal or hepatic vein thrombus. <CARLY Smyth - Last Filed: 05/30/21 09:58> Progress Note: A&P Assessment and plan (1) Pneumonia: Status: Acute <CARLY Smyth - Last Filed: 05/30/21 09:58> Assessment and Plan: Admit with sob. Being treated this admit for atypical PNA and acute systolic HF. WBC improved but remains elevated at 20. No fever. BNP initially 674 and down to 433 yesterday. CXR yest with resolved opacities. Lung had wheezes, now mostly clear. Denies orthopnea, PND. Was diuresed with IV Lasix with fluid balance neg 4 liters this admit. He does not appear fluid overloaded on exam. Remains on IV antibiotics. Still wearing O2 with nasal cannula - spoke with nurse about assessing Sat on room air. Does not wear O2 at home. Echo this admit shows EF 25%,? inferoseptal, mid inferior and mid anteroseptal segments akinetic - seen on 01/2021 echo. EF at that time, 40-45%. Drop in EF could be related to atrial flutter with elevated rates.?BUN 43, NA 134. Will stop IV Lasix and change to Lasix 40mg PO daily. Was not on Lasix at home. Ongoing mgt of PNA as directed by hospitalist. Continue I+O monitoring, Close monitoring of electrolyte and kidney function with replacement as warranted. <CARLY Smyth - Last Filed: 05/30/21 09:58> (2) Acute heart failure: Status: Acute <CARLY Smyth - Last Filed: 05/30/21 09:58> Assessment and Plan: as above <CARLY Smyth - Last Filed: 05/30/21 09:58> (3) Atrial flutter with rapid ventricular response: Status: Acute <CARLY Smyth - Last Filed: 05/30/21 09:58> Assessment and Plan: Reported hx of PAF. This admit with atrial flutter, variable rates. Home Amiodarone stopped this admit due to elevated LFTs.? He is on Metoprolol and has been started on EOD Digoxin for rate control. Tele today shows Aflutter rates variable ranging 60 up to 130. No reports of palpitations. Unable to do CVR at this time, as anticoagulation has been on hold due to elevated LFTs. Will continue Metoprolol and Digoxin. Keep off Amiodarone. LFTs are improving. Plan t o restart his Eliquis as soon as medically appropriate. Ongoing tele monitoring. <CARLY Smyth - Last Filed: 05/30/21 09:58> (4) Cardiomyopathy: Status: Acute <CARLY Smyth - Last Filed: 05/30/21 09:58> Assessment and Plan: Hx of CAD, prior NC, CABG, CMP. EF had been in 40s in Jan and now 25%. Troponins normal this admit. No report of anginal symptoms. He does have hx of heroin use, drug abuse. Notes indicate he did have a witnessed cardiac arrest Jan 2021, presumedly related to heroin overdose , per his cardiologists note. He was started on Amiodarone around that time and it was stopped this admit due to elevated LFTs. Tele reviewed and no NSVT seen. Will continue with Metoprolol and digoxin at present, continue Lasix. BP 115/72 at present. Will further discuss plan with Dr Alvares. This pt follows with Dr Holden at [facility] cardiology. Outpt note from him, 03/27/21 reviewed and indicates that outpt ICD would be considered after a repeat echo. 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 <CARLY Smyth - Last Filed: 05/30/21 09:58> Assessment and Plan: Patient seen examined at bedside. Continues to have atrial flutter off and on. On beta-nina and digoxin. He has cardiomyopathy. Follows up at [facility]. Will need further workup as outpatient. Plan is to rate control and potentially discharge him to rehab or home. Thank you for allowing me to participate in the care of your patient. Please feel free to contact me if you have any questions. <Mukesh Alvares MD - Last Filed: 06/01/21 17:55> Fall Risk Details Current Medications: Current Medications Albuterol Sulfate (Albuterol Sulfate (0.083%) 2.5 Mg/3 Ml Vial.Neb) 2.5 mg INHALE Q2H PRN PRN Reason: Shortness of Breath/Wheezing Last Admin: 05/24/21 00:11 Dose: 2.5 mg Documented by: Albuterol/Ipratropium (Albuterol/Iprat 2.5/0.5mg 3 Ml Ampul.Neb) 3 ml INHALE RQ4H WHILE AWAKE [facility] Last Admin: 05/30/21 08:37 Dose: Not Given Documented by: Clonidine HCl (Clonidine Hcl 0.1 Mg Tablet) 0.1 mg PO BID [facility]; Protocol Last Admin: 05/30/21 08:58 Dose: 0.1 mg Documented by: Clotrimazole (Clotrimazole 10 Mg Diana) 10 mg MUCOUS MEM 5XD [facility] Last Admin: 05/30/21 09:04 Dose: 10 mg Documented by: Digoxin (Digoxin 0.125 Mg Tablet) 0.125 mg PO Q2D [facility] Last Admin: 05/29/21 10:08 Dose: 0.125 mg Documented by: Furosemide (Furosemide 40 Mg/4 Ml Vial) 40 mg IVPUSH BID@0900,1800 [facility]; Protoc ol Last Admin: 05/30/21 08:58 Dose: 40 mg Documented by: Guaifenesin/Dextromethorphan (Guaifenesin Dm 100/10/5 Ml 5 Ml Syrup) 10 ml PO TID [facility] Last Admin: 05/30/21 08:58 Dose: 10 ml Documented by: Ceftriaxone Sodium 1 gm/ (Sodium Chloride) 50 mls @ 100 mls/hr IV Q24H [facility] Last Infusion: 05/29/21 16:35 Dose: Infused Documented by: Doxycycline Hyclate 100 mg/ (Sodium Chloride) 250 mls @ 166.67 mls/hr IV Q12H [facility] Last Infusion: 05/30/21 05:35 Dose: Infused Documented by: Levetiracetam (Levetiracetam 500 Mg Tablet) 500 mg PO BID [facility] Last Admin: 05/30/21 08:58 Dose: 500 mg Documented by: Methylprednisolone Sodium Succinate (Methylprednisolone Sod Succ 40 Mg/Ml Vial) 40 mg IVPUSH Q12H [facility] Metoprolol Succinate (Metoprolol Succinate Er 100 Mg Tab.Er.24h) 100 mg PO DAILY [facility]; Protocol Last Admin: 05/30/21 08:58 Dose: 100 mg Documented by: Multivitamins/Vitamin C (Multivitamin Tablet) 1 tab PO DAILY [facility] Last Admin: 05/30/21 08:58 Dose: 1 tab Documented by: Nicotine (Nicotine 21 Mg Patch.Td24) 21 mg TRANSDERMA DAILY [facility] Last Admin: 05/30/21 08:57 Dose: 21 mg Documented by: Nicotine Polacrilex (Nicotine Polacrilex 2 Mg Gum) 2 mg BUCCAL Q1H PRN PRN Reason: Nicotine Cravings Omeprazole (Omeprazole 20 Mg Capsule.Dr) 20 mg PO DAILY [facility] Last Admin: 05/30/21 08:58 Dose: 20 mg Documented by: Ondansetron HCl (Ondansetron Hcl 4 Mg/2 Ml Vial) 4 mg IVPUSH Q8H PRN PRN Reason: Nausea and Vomiting Last Admin: 05/29/21 03:44 Dose: 4 mg Documented by: Pentoxifylline (Pentoxifylline Er 400 Mg Tablet.Er) 400 mg PO BID [facility] Last Admin: 05/30/21 08:58 Dose: 400 mg Documented by: Sertraline HCl (Sertraline Hcl 25 Mg Tablet) 25 mg PO DAILY [facility] Last Admin: 05/30/21 08:58 Dose: 25 mg Documented by: Sodium Chloride (0.9 % Sodium Chloride Flush 3 Ml Syringe) 3 ml IVFLUSH QSHIFT ON [facility] Last Admin: 05/30/21 08:59 Dose: 3 ml Documented by: <CARLY Smyth - Last Filed: 05/30/21 09:58> Time Spent With Patient Time: Total time spent is greater than 50% in coordination of care (as documented) at patient's floor/unit and/or counseling patient: 26 <CARLY Smyth - Last Filed: 05/30/21 09:58> Time with patient: 25 - 35 minutes <CARLY Smyth - Last Filed: 05/30/21 09:58> Progress Note: Quality Stroke Does the patient have a stroke diagnosis?: No <CARLY Smyth - Last Filed: 05/30/21 09:58> Procedures Date of Service Date of Service: 05/30/21 <CARLY Smyth - Last Filed: 05/30/21 09:58>
--- NOTE | 2021-05-30 11:32 | MHC.SL.SWA ---
Speech Pathologist Impression: Risk of Aspiration Oral Phase Dysphagia Risk of Aspiration Due to: History of Pneumonia Dysphasia Diet Status: No Change Liquid Consistency and Strategies for Safe Swallow: Liquid Intake Recommendation: Thin Liquid Intake Strategies: Small Sips Solid Food Consistency: Dietary Recommendations: Regular Additional Modifications to Solid Foods: Continue to recommend REGULAR solids, THIN liquids, and pills WHOLE in PUREE. Further ST intervention is no longer warranted. Please re-refer with any changes or further concern. Oral Medication Intake: Whole with Puree Compensatory Strategies and Precautions to be Taken for Safe Swallow: Sitting Upright (90 deg) Small Bites and Sips Alternate Liquids/Solids Rate of Ingestion Change Supervision While Eating and Drinking for Safe Swallow: Intermittent Supervision Recommendation for Speech: d/c Business Banker Clinican/Clinical Fellow: No Supervisory Statement: I have reviewed and agree with the student/clinical fellow's documentation: N/A Speech Language Pathologist: Radha Crews M.A., CCC-AUTO DAMAGE ESTIMATOR
--- NOTE | 2021-05-30 12:14 | MHC.CLN ---
NUTRITION LIMITED INTAKE AT MEALS X 5-6 DAYS. PATIENT STATED THAT HE WAS TIRED. ADDING ENSURE BID TO PROVIDE 700 KCAL, 26 G PROTEIN. CONTINUE TO FOLLOW INTAKE.
--- NOTE | 2021-05-30 12:36 | MHC.CM.PN ---
Per ROUNDS discussion, Patient is not yet medically cleared for dc (IV Ceftriaxone, IV Doxycycline, IV Solu Medrol); Home is the goal for dc and CM will follow for possible need to adjust the dc plan.
--- NOTE | 2021-05-30 13:17 | HO.PM.IMPN ---
Subjective Subjective Date of Service: 05/30/21 Interval History: Refusing meals, hygeine, and activity Room air SaO2 84%, so he's back on 2L C/o generalized weakness and myalgais Review of Systems Review of Systems: Yes all other systems are reviewed and are negative Physical Exam Vital Signs: Vital Signs: Last Vital Signs Temp 97.1 F 05/30/21 11:25 Pulse 83 05/30/21 11:25 Resp 20 05/30/21 11:25 BP 115/20 L 05/30/21 11:25 Pulse Ox 92 05/30/21 11:25 BMI result Body Mass Index 22.2 Gen: in no acute distress HEENT: sclera anicteric, moist mucus membranes Neck: supple Lungs: clear to auscultation bilaterally Heart: irregular, no murmurs Abd: soft, non-tender, non-distended Ext: no edema Skin: warm/well-perfused Neuro: alert and oriented x3, no focal findings Psych: restricted affect Objective Data Active Medications Albuterol Sulfate (Albuterol Sulfate (0.083%) 2.5 Mg/3 Ml Vial.Neb) 2.5 mg INHALE Q2H PRN PRN Reason: Shortness of Breath/Wheezing Last Admin: 05/24/21 00:11 Dose: 2.5 mg Documented by: OSCAR Albuterol/Ipratropium (Albuterol/Iprat 2.5/0.5mg 3 Ml Ampul.Neb) 3 ml INHALE RQ4H WHILE AWAKE [facility] Last Admin: 05/30/21 11:32 Dose: Not Given Documented by: LARISA Non-Admin Reason: Patient Refused Clonidine HCl (Clonidine Hcl 0.1 Mg Tablet) 0.1 mg PO BID [facility]; Protocol Last Admin: 05/30/21 08:58 Dose: 0.1 mg Documented by: BRIGIDA Clotrimazole (Clotrimazole 10 Mg Diana) 10 mg MUCOUS MEM 5XD [facility] Last Admin: 05/30/21 09:04 Dose: 10 mg Documented by: BRIGIDA Digoxin (Digoxin 0.125 Mg Tablet) 0.125 mg PO Q2D [facility] Last Admin: 05/29/21 10:08 Dose: 0.125 mg Documented by: WANG Furosemide (Furosemide 40 Mg Tablet) 40 mg PO DAILY [facility]; Protocol Guaifenesin/Dextromethorphan (Guaifenesin Dm 100/10/5 Ml 5 Ml Syrup) 10 ml PO TID [facility] Last Admin: 05/30/21 08:58 Dose: 10 ml Documented by: BRIGIDA Ceftriaxone Sodium 1 gm/ (Sodium Chloride) 50 mls @ 100 mls/hr IV Q24H [facility] Last Infusion: 05/29/21 16:35 Dose: 0 mls/hr Documented by: WANG Doxycycline Hyclate 100 mg/ (Sodium Chloride) 250 mls @ 166.67 mls/hr IV Q12H [facility] Last Infusion: 05/30/21 05:35 Dose: 166.6 mls/hr Documented by: SENA Levetiracetam (Levetiracetam 500 Mg Tablet) 500 mg PO BID [facility] Last Admin: 05/30/21 08:58 Dose: 500 mg Documented by: BRIGIDA Methylprednisolone Sodium Succinate (Methylprednisolone Sod Succ 40 Mg/Ml Vial) 40 mg IVPUSH Q12H [facility] Metoprolol Succinate (Metoprolol Succinate Er 100 Mg Tab.Er.24h) 100 mg PO DAILY [facility]; Protocol Last Admin: 05/30/21 08:58 Dose: 100 mg Documented by: BRIGIDA Multivitamins/Vitamin C (Multivitamin Tablet) 1 tab PO DAILY [facility] Last Admin: 05/30/21 08:58 Dose: 1 tab Documented by: BRIGIDA Nicotine (Nicotine 21 Mg Patch.Td24) 21 mg TRANSDERMA DAILY [facility] Last Admin: 05/30/21 08:57 Dose: 21 mg Documented by: BRIGIDA Nicotine Polacrilex (Nicotine Polacrilex 2 Mg Gum) 2 mg BUCCAL Q1H PRN PRN Reason: Nicotine Cravings Omeprazole (Omeprazole 20 Mg Capsule.Dr) 20 mg PO DAILY [facility] Last Admin: 05/30/21 08:58 Dose: 20 mg Documented by: BRIGIDA Ondansetron HCl (Ondansetron Hcl 4 Mg/2 Ml Vial) 4 mg IVPUSH Q8H PRN PRN Reason: Nausea and Vomiting Last Admin: 05/29/21 03:44 Dose: 4 mg Documented by: LISE Pentoxifylline (Pentoxifylline Er 400 Mg Tablet.Er) 400 mg PO BID [facility] Last Admin: 05/30/21 08:58 Dose: 400 mg Documented by: BRIGIDA Sertraline HCl (Sertraline Hcl 25 Mg Tablet) 25 mg PO DAILY [facility] Last Admin: 05/30/21 08:58 Dose: 25 mg Documented by: BRIGIDA Sodium Chloride (0.9 % Sodium Chloride Flush 3 Ml Syringe) 3 ml IVFLUSH QSHIFT [facility] Last Admin: 05/30/21 08:59 Dose: 3 ml Documented by: BRIGIDA Labs CBC & Chem 7: 05/30/21 04:13 05/30/21 04:13 Labs: Laboratory Results - last 24 hr 05/28/21 05/30/21 05/30/21 08:35 04:13 04:13 MCV 79.4 L MCH 28.3 MCHC 35.6 RDW 17.0 H Plt Count 387 MPV 9.9 Absolute Nucleated RBC 0.000 Nucleated RBC % (auto) 0.0 PT INR Anion Gap 21 H Estim Creat Clear Calc 49.5 Estimated GFR 56 Random Glucose 179 H Calcium 8.7 Total Bilirubin 3.0 H Direct Bilirubin 2.0 H AST 420 H ALT 948 H Alkaline Phosphatase 130 H Total Protein 6.7 Albumin 3.0 L Procalcitonin Hepatitis A IgG Ab REACTIVE Hepatitis A IgM Ab Nonreactive 05/30/21 05/30/21 04:13 04:13 MCV MCH MCHC RDW Plt Count MPV Absolute Nucleated RBC Nucleated RBC % (auto) PT 21.4 H INR 1.9 H Anion Gap Estim Creat Clear Calc Estimated GFR Random Glucose Calcium Total Bilirubin Direct Bilirubin AST ALT Alkaline Phosphatase Total Protein Albumin Procalcitonin 0.21 Hepatitis A IgG Ab Hepatitis A IgM Ab Impressions Doppler Study Ultrasound 05/29/21 09:44 IMPRESSION: Normal liver Doppler exam. No evidence of portal or hepatic vein thrombus. Assessment and Plan (1) Pneumonitis: Status: Acute (2) Pneumonia: Status: Acute (3) Atrial flutter with rapid ventricular response: Status: Acute (4) Atherosclerotic cardiovascular disease: Status: Acute (5) Elevated liver enzymes: Status: Acute (6) Acute heart failure: Status: Acute (7) Acute exacerbation of chronic obstructive airways disease: Status: Acute Assessment and Plan: hospital d#9 66yo M with COPD not on home O2, CAD s/p CABG x2, combined systolic/diastolic HF, AF on apixaban, CVA without residual deficit, PAD, tobacco abuse [1.5 ppd], hx heroin + cocaine abuse, seizure disorder, possible VF arrest with status epilepticus back in Jan 2021 presented to his PCP's office with dyspnea and was noted to be hypoxic,arrived here hypotensive and hypoxic but fluid-responsive admitted for sepsis from multifocal PNA # acute hypoxic respiratory failure - wean suppl O2 as tolerated # PNA- CAP? atypical? amiodarone/heroin drug-induced lung injury? allergic-type pneumonitis? # COPD exacerbation - continue ceftriaxone + doxycycline d#10/16 - CXR shows resolution of infiltrates - urine antigens for pneumococcus + Legionella pending - wean steroids - nebs - d/c'ed amiodarone - pt has very high IgE level [1827, ULN is 114] and will need outpt Pulm f/u for further allergy testing # acute/chronic HFrEF # cardiomyopathy, ischemic + drug-related - appears euvolemic, change IV to PO furosemide - continue metoprolol - Cardiology following # atrial flutter with variable conduction - continue metoprolol + digoxin - apixaban held due to elevated LFTs + INR, resume when improved # sepsis - resolved, no lactic acidosis, hypotension resolved # transaminasemia/acute liver injury - GI consulted - LFTs significantly elevated,? related to drug toxicity versus passive congestion versus ischemic hepatitis. improving - acute HAV IgM negative - abd Doppler normal - HBV/HCV/HIV viral loads to r/o acute infection - unlikely due to chronic use of statin or amiodarone per GI # thrush - clotrimazole troches.? HIV negative ? # history of peripheral arterial disease/coronary artery disease status post CABG - continue metoprolol succinate + pentoxyfilline; no aspirin or statin due to liver toxicity and elevated INR # seizure disorder - continue levetiracteam, take seizure precautions # mood disorder - psychiatry consult # opioid use disorder history of cocaine abuse - was on Suboxone in past but did not tolerate; drug toxicology positive for fentanyl, patient admits use of heroin - seen by Recovery Team; no withdrawal symptoms noted # tobacco abuse - on nicotine patch, counseling done # VTE ppx - compression boots # dispo - lives at home with , plan to return there upon discharge Quality Stroke Does the patient have a stroke diagnosis?: No VTE Prior VTE?: No VTE Risk Level:: Medical - moderate - high VTE Device Contraindication: N/A - Device Ordered VTE Drug Contraindication: N/A - Med Ordered
[2021-05-30 14:21] LABS: Hepatitis B Viral DNA Qn - cp <1.00 NOT DETECTED Log IU/mL (NOT DETECTED); Hepatitis B Viral DNA Qn-IU/mL <10 NOT DETECTED IU/mL (NOT DETECTED)
[2021-05-30] MEDS: cefTRIAXone sodium 1 GM in 0.9 % Sodium Chloride 50 ML IV (14:49)
[2021-05-30 16:25] LABS: Strep Pneumo Ag urine Not Detected (Not Detected)
--- NOTE | 2021-05-30 18:22 | P.CNPS_ITS ---
History of Present Illness Date of Service: 05/30/2021 Chief Complaint: pna Reason for Consult: Medication Requesting physician: Gavin Danielle [facility] Narrative: Phan is a 66 y.o. Male who presented to [facility] 05/22/2021 with general malaise x 1 week, saw his PCP today and found his oxygen saturation to be 88% on room air. He has a history of congestive heart failure, COPD, and polysubstance use disorder (on suboxone in the past but did not tolerate). Pt?s utox was positive for fentanyl, admitted to using heroin. He is a smoker, has baseline cough, and was found to have dyspnea on exertion, hypoxic, and hypotensive. He was admitted to [facility] for further workup due to sepsis secondary to pneumonia and put on IV antibiotics and 2L oxygen. He was seen by Recovery Team. Psych consult was placed due to pt refusing meals, hygiene, and activity. Pt?s sertraline was decreased from 50 mg to 25 mg due to potential for hepatotoxicity on 05/28/21.? I evaluated the pt this evening and upon inquiry he denies depression or irritability. However, he presents as withdrawn, dysphoric, irritable, and with avolition and anhedonia. Reports poor sleep and decreased appetite, ?Im just not that hungry? x 3 days, daytime energy is low. Says he wants to discharge home, doesnt want to be in the hospital, ?just send me home.? Says physically he feels ?better,? 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 I asked about his zoloft prescription and pt says he does not know what that is for and does not know what meds he is on, as his helps him with his medications. I attempted to assess pt further for sx of depression, however he turned away from me and said he was done talking. Per chart review, pt was hospitalized in 01/2021 due to overdose, cardiac arrests, atrial fibrillation with rapid ventricular response, pneumonia. He was started on suboxone for long standing substance abuse. A psych consult was place d for capacity, as pt was requesting to leave AMA and he was determined to have capacity.? Per hospital staff pharmacist, pt has been withdrawn, swearing at her, and anxious.? I spoke with pt?s , Dinorah. She reports zoloft ?doesnt seem to work too well.? She denies that pt has a past hx of psych sx or depression, he was ?basically a happy go dory michele.? Says his sx of depression started in the fall of 2020 and his PCP started him on zoloft in 03/2021 at 25 mg, recently increased to 50 mg on 05/18/21. Per his , ?he sleeps a lot, he could sleep 24 hours a day.? Prior to this episode of depression, he had ?no problems sleeping at all.? Dinorah reports pt is ?not interested in doing anything,? previously he was social, would go out to see friends, go for rides, read the newspaper. Dinorah also reports pt has been increasingly forgetful over the past year and that he had a stroke in 2004 and his provider told her that he would likely develop dementia. His suspects dementia, however pt has not seen a neurologist. She denies that pt is typically anxious or agitated.? Past Psychiatric History: Patient denies any psychiatric diagnosis he has history, denies any type of past treatment including counseling, PHP, inpatient stays, medications. Patient does have history of substance use disorder, reports active participation in 12 step programs at 1 time, although not current. Medical Evaluation Reviewed: Yes [facility] Medical History (Updated 05/31/21 @ 13:44 by Deborah Cavazos NP) Acute combined systolic and diastolic congestive heart failure Atrial fibrillation Atrial flutter Atrial flutter CAD (coronary artery disease) Cardiac arrest Cardiomyopathy CHF (congestive heart failure) Cocaine abuse with intoxication COPD (chronic obstructive pulmonary disease) Coronary bypass graft mechanical complication Drug abuse 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 Heroin use History of hemorrhagic cerebrovascular accident (CVA) without residual deficits Hyperlipemia Opioid use disorder Paroxysmal atrial fibrillation Pneumonia Pneumonitis PVD (peripheral vascular disease) Seizure disorder Seizure-like activity Subclavian arterial stenosis Toxic encephalopathy Surgical History S/P CABG x 2 Social History: Lives with in home. Diagnostics Vital Signs (24Hr): Vital Signs - 24 hr 05/29/21 20:00 05/30/21 00:00 05/30/21 04:00 Temperature 97.4 F 97.2 F 96.8 F Pulse Rate 86 66 85 Respiratory Rate 18 18 20 Blood Pressure 114/70 100/58 L 136/73 Pulse Oximetry 98 95 94 05/30/21 07:10 05/30/21 11:25 05/30/21 15:25 Temperature 97.0 F 97.1 F 97.8 F Pulse Rate 78 83 109 H Respiratory Rate 19 20 15 Blood Pressure 115/72 115/20 L 135/81 Pulse Oximetry 96 92 91 L BMI result Body Mass Index 22.2 Labs Results: 05/31/21 05:07 05/31/21 05:07 Labs: Laboratory Results - last 48 hr 05/25/21 05/26/21 05/26/21 13:08 15:32 15:33 WBC RBC Hgb Hct MCV MCH MCHC RDW Plt Count MPV Absolute Nucleated RBC Nucleated RBC % (auto) PT INR Sodium Potassium Chloride Carbon Dioxide Anion Gap BUN Creatinine Estim Creat Clear Calc Estimated GFR Random Glucose Calcium Total Bilirubin Direct Bilirubin AST ALT Alkaline Phosphatase B-Natriuretic Peptide Total Protein Albumin Procalcitonin IgE 1827 H KVNG Titer TNP KVNG Titer 2 TNP KVNG Titer 3 TNP KVNG Pattern TNP KVNG Pattern 2 TNP KVNG Pattern 3 TNP Hepatitis A IgG Ab Hepatitis A IgM Ab Hep B DNA copies/mL Hep B DNA (IU/mL) SARS-CoV-2 IgG Ab Ur Strep pneumoniae Ag Not Detected 05/28/21 05/28/21 05/28/21 08:34 08:35 08:35 WBC RBC Hgb Hct MCV MCH MCHC RDW Plt Count MPV Absolute Nucleated RBC Nucleated RBC % (auto) PT INR Sodium Potassium Chloride Carbon Dioxide Anion Gap BUN Creatinine Estim Creat Clear Calc Estimated GFR Random Glucose Calcium Total Bilirubin Direct Bilirubin AST ALT Alkaline Phosphatase B-Natriuretic Peptide Total Protein Albumin Procalcitonin IgE KVNG Titer KVNG Titer 2 KVNG Titer 3 KVNG Pattern KVNG Pattern 2 KVNG Pattern 3 Hepatitis A IgG Ab REACTIVE Hepatitis A IgM Ab Nonreactive Hep B DNA copies/mL <1.00 NOT DETECTED Hep B DNA (IU/mL) <10 NOT DETECTED SARS-CoV-2 IgG Ab Negative Ur Strep pneumoniae Ag 05/29/21 05/29/21 05/29/21 05:32 05:32 05:32 WBC 20.2 H RBC 6.05 H Hgb 17.3 Hct 48.4 MCV 80.0 MCH 28.6 MCHC 35.7 RDW 16.9 H Plt Count 396 MPV 10.0 Absolute Nucleated RBC 0.000 Nucleated RBC % (auto) 0.0 PT 21.2 H INR 1.8 H Sodium 135 Potassium 3.4 Chloride 90 L Carbon Dioxide 33 H Anion Gap 15 BUN 40 H Creatinine 1.17 Estim Creat Clear Calc 54.1 Estimated GFR > 60 Random Glucose 176 H Calcium 8.6 Total Bilirubin 2.6 H Direct Bilirubin 2.0 H AST 391 H ALT 961 H Alkaline Phosphatase 133 H B-Natriuretic Peptide Total Protein 6.4 L Albumin 3.0 L Procalcitonin IgE KVNG Titer KVNG Titer 2 KVNG Titer 3 KVNG Pattern KVNG Pattern 2 KVNG Pattern 3 Hepatitis A IgG Ab Hepatitis A IgM Ab Hep B DNA copies/mL Hep B DNA (IU/mL) SARS-CoV-2 IgG Ab Ur Strep pneumoniae Ag 05/29/21 05/30/21 05/30/21 05:32 04:13 04:13 WBC 20.3 H RBC 6.12 H Hgb 17.3 Hct 48.6 MCV 79.4 L MCH 28.3 MCHC 35.6 RDW 17.0 H Plt Count 387 MPV 9.9 Absolute Nucleated RBC 0.000 Nucleated RBC % (auto) 0.0 PT INR Sodium 134 L Potassium 3.8 Chloride 87 L Carbon Dioxide 30 H Anion Gap 21 H BUN 43 H Creatinine 1.28 Estim Creat Clear Calc 49.5 Estimated GFR 56 Random Glucose 179 H Calcium 8.7 Total Bilirubin 3.0 H Direct Bilirubin 2.0 H AST 420 H ALT 948 H Alkaline Phosphatase 130 H B-Natriuretic Peptide 433 H Total Protein 6.7 Albumin 3.0 L Procalcitonin IgE KVNG Titer KVNG Titer 2 KVNG Titer 3 KVNG Pattern KVNG Pattern 2 KVNG Pattern 3 Hepatitis A IgG Ab Hepatitis A IgM Ab Hep B DNA copies/mL Hep B DNA (IU/mL) SARS-CoV-2 IgG Ab Ur Strep pneumoniae Ag 05/30/21 05/30/21 04:13 04:13 WBC RBC Hgb Hct MCV MCH MCHC RDW Plt Count MPV Absolute Nucleated RBC Nucleated RBC % (auto) PT 21.4 H INR 1.9 H Sodium Potassium Chloride Carbon Dioxide Anion Gap BUN Creatinine Estim Creat Clear Calc Estimated GFR Random Glucose Calcium Total Bilirubin Direct Bilirubin AST ALT Alkaline Phosphatase B-Natriuretic Peptide Total Protein Albumin Procalcitonin 0.21 IgE KVNG Titer KVNG Titer 2 KVNG Titer 3 KVNG Pattern KVNG Pattern 2 KVNG Pattern 3 Hepatitis A IgG Ab Hepatitis A IgM Ab Hep B DNA copies/mL Hep B DNA (IU/mL) SARS-CoV-2 IgG Ab Ur Strep pneumoniae Ag Imaging Radiology Impressions: ITS Impressions Chest X-Ray 05/22/21 12:20 IMPRESSION: Diffuse bilateral infiltrates. Abdomen Ultrasound 05/23/21 09:53 IMPRESSION: No significant abnormality identified. Chest X-Ray 05/24/21 16:15 IMPRESSION: Diffuse bilateral patchy airspace opacities increased from prior exam 05/22/2021. Chest X-Ray 05/27/21 08:25 IMPRESSION: Zyeokbia-kz-nsrrnsldzof interval improvement in diffusely scattered bilateral patchy airspace opacities with persistent mild changes along with interstitial prominence. Given the significant interval improvement in a short period of time, the findings on the previous x-rays are probably suggestive of pulmonary edema. Infectious/inflammatory process although cannot be completely excluded. Recommend clinical correlation. Chest CT 05/27/21 11:09 IMPRESSION: Diffuse multifocal airspace opacities. Commonly reported imaging features of COVID-19 pneumonia are present. Other processes such as influenza pneumonia or organizing pneumonia can cause a similar imaging appearance, as can certain drug toxicities and connective tissue disorders. Fleischner guidelines were followed. Chest X-Ray 05/29/21 09:30 IMPRESSION: Post-CABG changes. Resolved groundglass and interstitial disease from previous recent exams. Doppler Study Ultrasound 05/29/21 09:44 IMPRESSION: Normal liver Doppler exam. No evidence of portal or hepatic vein thrombus. Mental Status Exam Mental Status Exam Narrative: A&O. Pt appears older than stated age, in hospital attire, lying down in bed. Poor eye contact, inattentive. No Tics or Tremors. No abnormal involuntary movements. Withdrawn, difficult to engage, ultimately not coopera tive with interview. Non-pressured speech, non-spontaneous with regular rate and rhythm, quiet volume and normal prosody. No prolonged speech latency or dysarthria. Mood is ?depressed,? affect is dysphoric. Denies SI/SIB/HI upon inquiry. Denies A/VH or delusional thought content. Thoughts are evasive, focus on discharge. Unknown cognitive/ memory impairment, however pt's suspects this. Insight/ Judgment limited. Medications Medications Current Medications Albuterol Sulfate (Albuterol Sulfate (0.083%) 2.5 Mg/3 Ml Vial.Neb) 2.5 mg INHALE Q2H PRN PRN Reason: Shortness of Breath/Wheezing Last Admin: 05/24/21 00:11 Dose: 2.5 mg Documented by: Albuterol/Ipratropium (Albuterol/Iprat 2.5/0.5mg 3 Ml Ampul.Neb) 3 ml INHALE RQ4H WHILE AWAKE [facility] Last Admin: 05/30/21 15:32 Dose: Not Given Documented by: Clonidine HCl (Clonidine Hcl 0.1 Mg Tablet) 0.1 mg PO BID [facility]; Protocol Last Admin: 05/30/21 08:58 Dose: 0.1 mg Documented by: Clotrimazole (Clotrimazole 10 Mg Diana) 10 mg MUCOUS MEM 5XD [facility] Last Admin: 05/30/21 14:21 Dose: 10 mg Documented by: Digoxin (Digoxin 0.125 Mg Tablet) 0.125 mg PO Q2D [facility] Last Admin: 05/29/21 10:08 Dose: 0.125 mg Documented by: Furosemide (Furosemide 40 Mg Tablet) 40 mg PO DAILY [facility]; Protocol Guaifenesin/Dextromethorphan (Guaifenesin Dm 100/10/5 Ml 5 Ml Syrup) 10 ml PO TID [facility] Last Admin: 05/30/21 14:21 Dose: 10 ml Documented by: Ceftriaxone Sodium 1 gm/ (Sodium Chloride) 50 mls @ 100 mls/hr IV Q24H [facility] Last Infusion: 05/30/21 15:25 Dose: Infused Documented by: Doxycycline Hyclate 100 mg/ (Sodium Chloride) 250 mls @ 166.67 mls/hr IV Q12H [facility] Last Admin: 05/30/21 15:43 Dose: 166.6 mls/hr Documented by: Levetiracetam (Levetiracetam 500 Mg Tablet) 500 mg PO BID [facility] Last Admin: 05/30/21 08:58 Dose: 500 mg Documented by: Methylprednisolone Sodium Succinate (Methylprednisolone Sod Succ 40 Mg/Ml Vial) 40 mg IVPUSH Q12H [facility] Metoprolol Succinate (Metoprolol Succinate Er 100 Mg Tab.Er.24h) 100 mg PO DAILY [facility]; Protocol Last Admin: 05/30/21 08:58 Dose: 100 mg Documented by: Multivitamins/Vitamin C (Multivitamin Tablet) 1 tab PO DAILY [facility] Last Admin: 05/30/21 08:58 Dose: 1 tab Documented by: Nicotine (Nicotine 21 Mg Patch.Td24) 21 mg TRANSDERMA DAILY [facility] Last Admin: 05/30/21 08:57 Dose: 21 mg Documented by: Nicotine Polacrilex (Nicotine Polacrilex 2 Mg Gum) 2 mg BUCCAL Q1H PRN PRN Reason: Nicotine Cravings Omeprazole (Omeprazole 20 Mg Capsule.Dr) 20 mg PO DAILY [facility] Last Admin: 05/30/21 08:58 Dose: 20 mg Documented by: Ondansetron HCl (Ondansetron Hcl 4 Mg/2 Ml Vial) 4 mg IVPUSH Q8H PRN PRN Reason: Nausea and Vomiting Last Admin: 05/29/21 03:44 Dose: 4 mg Documented by: Pentoxifylline (Pentoxifylline Er 400 Mg Tablet.Er) 400 mg PO BID [facility] Last Admin: 05/30/21 08:58 Dose: 400 mg Documented by: Sertraline HCl (Sertraline Hcl 25 Mg Tablet) 25 mg PO DAILY [facility] Last Admin: 05/30/21 08:58 Dose: 25 mg Documented by: Sodium Chloride (0.9 % Sodium Chloride Flush 3 Ml Syringe) 3 ml IVFLUSH QSHIFT [facility] Last Admin: 05/30/21 15:44 Dose: 3 ml Documented by: Allergies Allergies Allergy/AdvReac Type Severity Reaction Status Date / Time No Known Allergies Allergy Unverified 01/12/21 01:03 Assessment & Plan Assessment & Plan (1) Opioid use disorder, moderate, dependence: Status: Acute Code(s): F11.20 - Opioid dependence, uncomplicated (2) MDD (major depressive disorder), recurrent episode, moderate: Status: Acute Code(s): F33.1 - Major depressive disorder, recurrent, moderate Assessment and Plan: Considerations for antidepressants include pt has a hx of CAD, peripheral arterial disease, status post CABG, atrial flutter, QTc prolongation, and heart failure with reduced ejection fraction; on metoprolol, digoxin, and pentoxyfilline. Also has transaminasemia, acute liver injury (gradually improving). Has elevated INR. Hyponatremia, Na 134 L. Will discontinue sertraline and start lexapro 10 mg QD, as escitalopram is the recommended SSRI for liver impairment. QTc prolongation is a risk at supratherapeutic doses. SSRIs have possible SE of hyponatremia, however this is rare. Thus, will trial lexparo at low dose and monitor for benefit for sx of depression. I have shared this with Dr. Gavin Danielle. Thank you for this consultation. If you have any questions or concerns, please do not hesitate to contact psychiatry service. I spent minutes with the patient and/or on the patient floor today, greater than?50% of which was spent counseling/coordinating care.
--- NOTE | 2021-05-30 18:52 | PC.NURSE ---
P patient refuses to have new IV inserted,refuses IV Solumedrol,gets very upset when nurse attempted to explain need for tratment Dr. Danielle notified e will monitor
[2021-05-31] VITALS (7 sets, daily range): BP systolic 100–150; BP diastolic 44–89; PULSE 51–129; RESP 16–20; TEMP 36–36.8; O2SAT 92–96
--- NOTE | 2021-05-31 04:42 | PC.NURSE ---
CALL RECEIVED FROM [facility]PECT[facility] AND SHIPPER THAT PATIENTS HEART RATE ELEVATED IN THE 130 RANGE AT 0317, AND HAS BEEN SUSTAINING THAT LEVEL PAST FEW MINUTES. PATIENT AWAKENED AND NOT VERY HAPPY TO BE DISTURBED, HE DENIED CP/PRESSURE, HEADACHE, SOB, COUGH, OR ANY DIFFICULTY BREATHING OR TO FEELING HIS HEART RACE. OXYGEN ON AT 2/L N/C AND SATS 96%. 116/66-132-18 AND TEMP 98.2. HOSPITALIST ON DUTY NOTIFIED VIA TIGER TEXT AND HE RESPONDED TO MONITOR RATE AND IF IT CONTINUES TO ADMINISTER HIS AM METOPROLOL . VIEWED HIS HEART RATE ON S3E MONITOR AND IT WAS 130-138 FOR APPROX. 5 MINUTES, THEN NOTED TO LOWER. PATIENT STILL WITH NO ISSUES. AM MEDICATION NOT GIVEN AT THIS TIME, WATCHED CLOSELY, [facility] AND WILL CONTINUE TO OBSERVE, AND SHE INDICATED HIS RHYTHM STILL A FLUTTER IT HAS BEEN. VITALS THEN 100/[id number]. HEART RATE STAYING IN 80'S OR LOWER. WILL CONTINUE TO MONITOR AND FOLLOW UP NEEDED.
[2021-05-31] MEDS: Metoprolol Succinate ER 100 MG TAB.ER.24H PO (05:24)
--- NOTE | 2021-05-31 05:24 | PC.NURSE ---
PATIENT HEART RATE AGAIN HIGH 130'S REACHING 140, VERIFIED BY CALL FROM [facility] [place] [facility] OPERATOR ALSO. PATIENT STILL WITH NO COMPLAINTS, HAD AGAIN BEEN AWAKENED BY PHLEBOTOMY ON AM DRAWS. AM DOSE OF METOPROLOL 100MG PO GIVEN PER MD AT THIS TIME, 0525
[2021-05-31 05:32] LABS: Hematocrit 49.7 % (42.0-52.0); Hemoglobin 17.6 g/dl (14.0-18.0); Mean Corpuscular HGB Conc 35.4 g/dl (31.0-36.0); Mean Corpuscular Hemoglobin 27.8 pg (27.0-33.0); Mean Corpuscular Volume 78.4 fL (80.0-98.0); Mean Platelet Volume 10.2 fL (9.4-12.4); Platelet Count 360 X10*3/uL (160-400); Red Blood Count 6.34 X10*6/uL (4.60-5.80); Red Cell Distribution Width 17.5 % (11.0-16.0); White Blood Count 27.5 X10*3/uL (4.8-10.8)
[2021-05-31 05:37] LABS: INTERNATIONAL NORM RATIO 1.8 (0.9-1.1); Prothrombin Time 20.7 SEC (9.9-13.0)
[2021-05-31 06:10] LABS: Alanine Aminotransferase 825 U/L (0-40); Alkaline Phosphatase 122 U/L (39-117); Anion Gap 15 (12-20); Aspartate Amino Transferase 309 U/L (5-37); Bilirubin Total 3.1 mg/dL (0.0-1.0); Blood Urea Nitrogen 41 mg/dL (9-16); Calcium 8.8 mg/dL (8.4-10.2); Carbon Dioxide 36 mmol/L (22-29); Chloride 84 mmol/L (96-108); Creatinine Clr Calc Pharmacy 53.7; Estimated Glomerular Filt Rate > 60; Glucose Random 166 mg/dL (60-115); Potassium 3.2 mmol/L (3.3-5.1); Sodium 132 mmol/L (135-145); Total Protein 6.2 g/dL (6.5-8.0)
[2021-05-31 06:14] LABS: TSH reflex Free T4 0.11 uIU/mL (0.32-4.0)
--- NOTE | 2021-05-31 06:51 | PM.EVENT ---
Event Note Date of Service: 05/31/21 Event Note: AFib with RVR: Given metoprolol p.o. dose early. Patient blood pressure on the soft side-given IV fluids. Patient agreed for IV line. Patient asymptomatic. Will give IV metoprolol x1 after fluids. Day team to follow-up with Cardiology.
[2021-05-31 07:32] LABS: Free T4 (Free Thyroxine) 1.21 ng/dL (0.71-1.85)
[2021-05-31] MEDS: Albuterol/Iprat 2.5/0.5MG 3 ML AMPUL.NEB INHALE (07:47)
[2021-05-31] MEDS: guaiFENesin DM 100/10/5 ML 5 ML SYRUP 10 ML PO ×3 (09:05→21:11)
[2021-05-31] MEDS: Nicotine 21 MG PATCH.TD24 TRANSDERMA (09:05)
[2021-05-31] MEDS: Omeprazole 20 MG CAPSULE.DR PO (09:06)
[2021-05-31] MEDS: cloNIDine HCL 0.1 MG TABLET PO ×2 (09:06→21:11)
[2021-05-31] MEDS: Multivitamin TABLET 1 TAB PO (09:06)
[2021-05-31] MEDS: predniSONE 20 MG TABLET 40 MG PO (09:06)
[2021-05-31] MEDS: levETIRAcetam 500 MG TABLET PO ×2 (09:06→21:11)
[2021-05-31] MEDS: Pentoxifylline ER 400 MG TABLET.ER PO ×2 (09:06→21:11)
[2021-05-31] MEDS: Furosemide 40 MG TABLET PO (09:06)
[2021-05-31] MEDS: Escitalopram Oxalate 10 MG TABLET PO (09:06)
[2021-05-31] MEDS: Digoxin 0.125 MG TABLET PO (09:55)
[2021-05-31] MEDS: traMADoL HCL 50 MG TABLET 25 MG PO (11:17)
[2021-05-31] MEDS: Potassium Chloride ER 20 MEQ TAB.ER.PRT 40 MEQ PO (12:09)
--- NOTE | 2021-05-31 15:22 | P.PNIM_ITS ---
Subjective Subjective Date of Service: 05/31/21 Interval History: Complaining of left arm pain at prior IV site, later became agitated and wanted to leave against medical advice but after talking to the patient he agreed to stay, denies chest pain no palpitation no shortness of breath has been refusing medications and diet. Review of Systems Review of Systems: Yes all other systems are reviewed and are negative Physical Exam Vital Signs: Vital Signs: Last Vital Signs Temp 97.3 F 05/31/21 11:20 Pulse 129 H 05/31/21 11:20 Resp 20 05/31/21 11:20 BP 105/65 05/31/21 11:20 Pulse Ox 92 05/31/21 11:20 BMI result Body Mass Index 22.2 Gen: Awake alert in no acute distre ss HEENT: sclera a nicteric, moist mu cus membranes Neck : supple, no JVD L ungs: clear to aus cultation bilatera lly Heart: irregul ar, no murmurs Abd : soft, non-tender , non-distended Ex t: no edema, right fore arm no swell ing mild tendernes s at site of prior IV with ecchymosi s Skin: warm/well- perfused Neuro: al ert and oriented x 3, no focal findin gs Objective Data Active Medications Albuterol Sulfate (Albuterol Sulfate (0.083%) 2.5 Mg/3 Ml Vial.Neb) 2.5 mg INHALE Q2H PRN PRN Reason: Shortness of Breath/Wheezing Last Admin: 05/24/21 00:11 Dose: 2.5 mg Documented by: OSCAR Albuterol/Ipratropium (Albuterol/Iprat 2.5/0.5mg 3 Ml Ampul.Neb) 3 ml INHALE RQ4H WHILE AWAKE COUNTS INCLUDE 234 BEDS AT THE [facility] Last Admin: 05/31/21 11:16 Dose: Not Given Documented by: KODY Non-Admin Reason: Patient Refused Clonidine HCl (Clonidine Hcl 0.1 Mg Tablet) 0.1 mg PO BID COUNTS INCLUDE 234 BEDS AT THE [facility]; Protocol Last Admin: 05/31/21 09:06 Dose: 0.1 mg Documented by: BRIGIDA Clotrimazole (Clotrimazole 10 Mg Diana) 10 mg MUCOUS MEM 5XD COUNTS INCLUDE 234 BEDS AT THE [facility] Last Admin: 05/31/21 14:44 Dose: 10 mg Documented by: BRIGIDA Digoxin (Digoxin 0.125 Mg Tablet) 0.125 mg PO Q2D COUNTS INCLUDE 234 BEDS AT THE [facility] Last Admin: 05/31/21 09:55 Dose: 0.125 mg Documented by: BRIGIDA Escitalopram Oxalate (Escitalopram Oxalate 10 Mg Tablet) 10 mg PO DAILY COUNTS INCLUDE 234 BEDS AT THE [facility] Last Admin: 05/31/21 09:06 Dose: 10 mg Documented by: BRIGIDA Furosemide (Furosemide 40 Mg Tablet) 40 mg PO DAILY COUNTS INCLUDE 234 BEDS AT THE [facility]; Protocol Last Admin: 05/31/21 09:06 Dose: 40 mg Documented by: BRIGIDA Guaifenesin/Dextromethorphan (Guaifenesin Dm 100/10/5 Ml 5 Ml Syrup) 10 ml PO TID COUNTS INCLUDE 234 BEDS AT THE [facility] Last Admin: 05/31/21 14:44 Dose: 10 ml Documented by: BRIGIDA Levetiracetam (Levetiracetam 500 Mg Tablet) 500 mg PO BID COUNTS INCLUDE 234 BEDS AT THE [facility] Last Admin: 05/31/21 09:06 Dose: 500 mg Documented by: BRIGIDA Metoprolol Succinate (Metoprolol Succinate Er 100 Mg Tab.Er.24h) 100 mg PO DAILY COUNTS INCLUDE 234 BEDS AT THE [facility]; Protocol Last Admin: 05/31/21 05:24 Dose: 100 mg Documented by: JOHNSON Multivitamins/Vitamin C (Multivitamin Tablet) 1 tab PO DAILY COUNTS INCLUDE 234 BEDS AT THE [facility] Last Admin: 05/31/21 09:06 Dose: 1 tab Documented by: BRIGIDA Nicotine (Nicotine 21 Mg Patch.Td24) 21 mg TRANSDERMA DAILY COUNTS INCLUDE 234 BEDS AT THE [facility] Last Admin: 05/31/21 09:05 Dose: 21 mg Documented by: BRIGIDA Nicotine Polacrilex (Nicotine Polacrilex 2 Mg Gum) 2 mg BUCCAL Q1H PRN PRN Reason: Nicotine Cravings Omeprazole (Omeprazole 20 Mg Capsule.Dr) 20 mg PO DAILY COUNTS INCLUDE 234 BEDS AT THE [facility] Last Admin: 05/31/21 09:06 Dose: 20 mg Documented by: BRIGIDA Ondansetron HCl (Ondansetron Hcl 4 Mg/2 Ml Vial) 4 mg IVPUSH Q8H PRN PRN Reason: Nausea and Vomiting Last Admin: 05/29/21 03:44 Dose: 4 mg Documented by: LISE Pentoxifylline (Pentoxifylline Er 400 Mg Tablet.Er) 400 mg PO BID COUNTS INCLUDE 234 BEDS AT THE [facility] Last Admin: 05/31/21 09:06 Dose: 400 mg Documented by: BRIGIDA Prednisone (Prednisone 20 Mg Tablet) 40 mg PO DAILY COUNTS INCLUDE 234 BEDS AT THE [facility] Last Admin: 05/31/21 09:06 Dose: 40 mg Documented by: BRIGIDA Sodium Chloride (0.9 % Sodium Chloride Flush 3 Ml Syringe) 3 ml IVFLUSH QSHIFT COUNTS INCLUDE 234 BEDS AT THE [facility] Last Admin: 05/31/21 09:06 Dose: Not Given Documented by: BRIGIDA Non-Admin Reason: Patient Refused Labs CBC & Chem 7: 05/31/21 05:07 05/31/21 05:07 Labs: Laboratory Results - last 24 hr 05/25/21 05/31/21 05/31/21 13:08 05:07 05:07 MCV 78.4 L MCH 27.8 MCHC 35.4 RDW 17.5 H Plt Count 360 MPV 10.2 Absolute Nucleated RBC 0.000 Nucleated RBC % (auto) 0.0 PT INR Anion Gap 15 Estim Creat Clear Calc 53.7 Estimated GFR > 60 Random Glucose 166 H Calcium 8.8 Total Bilirubin 3.1 H AST 309 H ALT 825 H Alkaline Phosphatase 122 H Total Protein 6.2 L Albumin 3.0 L TSH 0.11 L Free T4 1.21 Ur Strep pneumoniae Ag Not Detected 05/31/21 05:07 MCV MCH MCHC RDW Plt Count MPV Absolute Nucleated RBC Nucleated RBC % (auto) PT 20.7 H INR 1.8 H Anion Gap Estim Creat Clear Calc Estimated GFR Random Glucose Calcium Total Bilirubin AST ALT Alkaline Phosphatase Total Protein Albumin TSH Free T4 Ur Strep pneumoniae Ag Assessment and Plan (1) MDD (major depressive disorder), recurrent episode, moderate: Status: Acute (2) Opioid use disorder, moderate, dependence: Status: Acute (3) Cardiomyopathy: Status: Acute (4) CAD (coronary artery disease): Status: Acute (5) Pneumonitis: Status: Acute (6) Pneumonia: Status: Acute (7) Atrial flutter with rapid ventricular response: Status: Acute (8) Atherosclerotic cardiovascular disease: Status: Acute (9) Elevated liver enzymes: Status: Acute (10) Acute heart failure: Status: Acute (11) Hypoxia: Status: Acute (12) Community acquired pneumonia: Status: Acute (13) Acute exacerbation of chronic obstructive airways disease: Status: Acute (14) Sepsis: Status: Acute Assessment and Plan: 66yo M with COPD not on home O2, CAD s/p CABG x2, combined systolic/diastolic HF, AF on apixaban, CVA without residual deficit, PAD, tobacco abuse [1.5 ppd], hx heroin + cocaine abuse, seizure disorder, possible VF arrest with status epilepticus back in Jan 2021 presented to his PCP's office with dyspnea and was noted to be hypoxic,arrived here hypotensive and hypoxic but fluid-responsive admitted for sepsis from multifocal PNA # acute hypoxic respiratory failure - resolved finger oximetry 92 on room air # PNA- CAP?? atypical?? amiodarone/heroin drug-induced lung injury?? allergic- type pneumonitis?/COPD exacerbation Finish 7 day course of ceftriaxone + doxycycline - CXR shows resolution of infiltrates - urine antigens for pneumococcus + Legionella pending - on prednisone 40 mg daily will wean steroids - continue nebs - d/c'ed amiodarone - pt has very high IgE level [1827, ULN is 114] and will need outpt Pulm f/u for further allergy testing # acute/chronic HFrEF # cardiomyopathy, ischemic + drug-related - appears euvolemic, status post IV Lasix now on PO furosemide, appears dehydrated with rising bicarb and creatinine will hold Lasix and give IV fluid likely dehydration contributing to tachycardia - continue metoprolol, will discuss further treatment plan with Cardiology # hypokalemia will replace and follow likely due to diuretics # atrial flutter with variable conduction -persistent tachycardia ventricular rate 130-140 range patient asymptomatic - continue metoprolol + digoxin, will give gentle IV fluid likely due to dehyd ration - apixaban held due to elevated LFTs + INR, resume when improved # sepsis - resolved, no lactic acidosis, hypotension resolved # transaminasemia/acute liver injury - GI consulted - LFTs significantly elevated,? related to drug toxicity versus passive congestion versus ischemic hepatitis.? improving - acute HAV IgM negative - abd Doppler normal - HBV/HCV/HIV viral loads to r/o acute infection - unlikely due to chronic use of statin or amiodarone per GI # thrush - clotrimazole troches.? HIV negative ? # history of peripheral arterial disease/coronary artery disease status post CABG - continue metoprolol succinate + pentoxyfilline; no aspirin or statin due to liver toxicity and elevated INR # seizure disorder - continue levetiracteam, take seizure precautions # mood disorder - seen by Psychiatry patient diagnosed to have no suicidal or homicidal ideation, has history of depression, they discontinued Zoloft due to liver impairment and place patient on Lexapro 10 mg daily , support provided counseling done # opioid use disorder history of cocaine abuse - was on Suboxone in past but did not tolerate; drug toxicology positive for fentanyl, patient admits use of heroin - seen by Recovery Team; no withdrawal symptoms noted # tobacco abuse - on nicotine patch, counseling done # VTE ppx - compression boots # dispo - lives at home with , plan to return there upon discharge Quality Stroke Does the patient have a stroke diagnosis?: No VTE Prior VTE?: No VTE Risk Level:: Medical - moderate - high VTE Device Contraindication: N/A - Device Ordered VTE Drug Contraindication: N/A - Med Ordered
--- NOTE | 2021-05-31 15:23 | PC.NURSE ---
Patient refusing IV start, Hygiene, Care, heart monitor. Says he is going home. Dr. Bradley notified and came to see patient. Reinforced to patient how sick he is and that he really needs to stay in hospital for further care. Patient agreeable to stay for moment. PO tramadol ordered and given for left arm pain with good effect. PO potassium given for K 3.2. Allowed me to put telemonitor back on at end of shift. HR 120's, aflutter.
--- NOTE | 2021-05-31 16:17 | PC.NURSE ---
Addendum entered by Jacqueline Napier RN 05/31/21 19:18: patient refused to have IV inserted ,refused assistance with dinner ,drinking ice water Original Note: P patient refused IV fluids,refused to have IV innserted,no IV access I Dr. Bradley notified e encouraged po intake
[2021-06-01 00:45] VITALS: BP 95/51; PULSE 133; RESP 16; TEMP 36.1; O2SAT 94
[2021-06-01 05:48] LABS: Basophils Absolute Auto 0.1 X10*3/uL (0.0-0.2); Basophils Percent Auto 0.3 % (0-2); Hematocrit 50.3 % (42.0-52.0); Imm Gran Abs Auto 0.64 X10*3/uL (0.00-0.03); Imm Gran Pct Auto 1.7 % (0.0-0.4); Lymphocytes Absolute Auto 2.7 X10*3/uL (1.2-4.9); MANUAL DIFF FLAG SCAN; Mean Corpuscular HGB Conc 35.8 g/dl (31.0-36.0); Mean Corpuscular Hemoglobin 28.4 pg (27.0-33.0); Mean Corpuscular Volume 79.3 fL (80.0-98.0); Mean Platelet Volume 10.7 fL (9.4-12.4); Monocytes Percent Auto 7.8 % (2-11); Neutrophils Absolute Auto 32.1 x10*3/uL (2.0-8.3); Neutrophils Percent Auto 83.2 % (45-73); Platelet Count 298 X10*3/uL (160-400); Red Blood Count 6.34 X10*6/uL (4.60-5.80); Red Cell Distribution Width 17.2 % (11.0-16.0); SCAN SMEAR FLAG 1
[2021-06-01 06:02] LABS: White Blood Count 38.6 X10*3/uL (4.8-10.8)
[2021-06-01 06:09] LABS: SLIDE REVIEW VERIFIED
[2021-06-01 06:21] LABS: Anion Gap 20 (12-20); Blood Urea Nitrogen 47 mg/dL (9-16); Calcium 9.3 mg/dL (8.4-10.2); Carbon Dioxide 34 mmol/L (22-29); Chloride 82 mmol/L (96-108); Creatinine Clr Calc Pharmacy 42.5; Estimated Glomerular Filt Rate 47; Glucose Random 185 mg/dL (60-115); Potassium 3.8 mmol/L (3.3-5.1); Sodium 132 mmol/L (135-145)
[2021-06-01 06:24] LABS: Alanine Aminotransferase 735 U/L (0-40); Albumin Level 3.1 g/dL (3.5-5.0); Alkaline Phosphatase 124 U/L (39-117); Aspartate Amino Transferase 267 U/L (5-37); Bilirubin Direct 2.2 mg/dL (0.0-0.5); Bilirubin Total 3.3 mg/dL (0.0-1.0); Total Protein 6.2 g/dL (6.5-8.0)
[2021-06-01 07:51] VITALS: BP 105/67; PULSE 76; RESP 18; TEMP 36.2
[2021-06-01] MEDS: cloNIDine HCL 0.1 MG TABLET PO (10:12)
[2021-06-01] MEDS: levETIRAcetam 500 MG TABLET PO ×2 (10:12→21:32)
[2021-06-01] MEDS: Metoprolol Succinate ER 100 MG TAB.ER.24H PO (10:12)
[2021-06-01] MEDS: predniSONE 20 MG TABLET PO (10:12)
[2021-06-01] MEDS: guaiFENesin DM 100/10/5 ML 5 ML SYRUP 10 ML PO ×3 (10:12→21:32)
[2021-06-01] MEDS: Multivitamin TABLET 1 TAB PO (10:13)
[2021-06-01] MEDS: Omeprazole 20 MG CAPSULE.DR PO (10:13)
[2021-06-01] MEDS: Escitalopram Oxalate 10 MG TABLET PO (10:13)
[2021-06-01] MEDS: Pentoxifylline ER 400 MG TABLET.ER PO ×2 (10:13→21:32)
--- NOTE | 2021-06-01 11:54 | P.PNCA_ITS ---
Subjective Subjective Date of Service: 06/01/21 <CARLY Smyth - Last Filed: 06/01/21 15:54> 06/01/21 <Mukesh Alvares MD - Last Filed: 06/01/21 17:56> Principal diagnosis: sob, BNP elevated, CMP, aflutter, PNA <CARLY Smyth - Last Filed: 06/01/21 15:54> Interval history: Cardiology follow up for CMP, atrial flutter. Seen at 0930. Today he is observed resting in bed without distress. Tells me he still does not feel well with body aches. Breathing reported as good. No chest discomfort, palpitations. Currently in atrial flutter with rate in 130s and he does not feel it. Does not want to eat breakfast. Has refused IV access. <CARLY Smyth - Last Filed: 06/01/21 15:54> Review of Systems Review of Systems as above <CARLY Smtyh - Last Filed: 06/01/21 15:54> Yes all other systems are reviewed and are negative <CARLY Smyth - Last Filed: 06/01/21 15:54> Physical Exam Vital Signs: Last Vital Signs Temp 97.1 F 06/01/21 07:51 Pulse 76 06/01/21 07:51 Resp 18 06/01/21 07:51 BP 105/67 06/01/21 07:51 Pulse Ox 94 06/01/21 00:45 BMI result Body Mass Index 22.2 <CARLY Smyth - Last Filed: 06/01/21 15:54> Const General: cooperative, no acute distress, alert and awake <CARLY Smyth - Last Filed: 06/01/21 15:54> Orientation/consciousness: patient oriented x3 <CARLY Smyth Last Filed: 06/01/21 15:54> Neck Neck: Yes normal visual inspection and Yes no JVD <CARLY Smyth - Last Filed: 06/01/21 15:54> Resp Effort & Inspection: normal respiratory effort <CARLY Smyth - Last Filed: 06/01/21 15:54> Auscultation: clear to auscultation bilaterally, no crackles, no rales, no rhonchi and no wheezes <Kristen Quintero NP - Last Filed: 06/01/21 15:54> Cardio Rate: tachycardic <Kristen Quintero NP - Last Filed: 06/01/21 15:54> Rhythm: regular rhythm <Kristen Quintero NP - Last Filed: 06/01/21 15:54> Heart sounds: S1 normal heart sound present and S2 normal heart sound present <Kristen Quintero NP - Last Filed: 06/01/21 15:54> Peripheral pulses: Peripheral pulses 2+ throughout <Kristen Quintero NP - Last Filed: 06/01/21 15:54> GI Inspection: Yes normal to inspection <Kristen Quintero NP - Last Filed: 06/01/21 15:54> Skin General skin exam: no rashes or lesions noted <Kristen Quintero NP - Last Filed: 06/01/21 15:54> Neuro General: patient oriented x3 <rKisten Quintero [facility] - Last Filed: 06/01/21 15:54> Extrem General: Yes normal to inspection and No edema <Kristen Quintero NP - Last Filed: 06/01/21 15:54> Objective Labs and Meds Result diagrams: : 06/01/21 05:32 06/01/21 05:32 <Kristen Quintero NP - Last Filed: 06/01/21 15:54> Lab results: Laboratory Results - last 24 hr 06/01/21 06/01/21 06/01/21 05:32 05:32 05:32 WBC 38.6 H* RBC 6.34 H Hgb 18.0 Hct 50.3 MCV 79.3 L MCH 28.4 MCHC 35.8 RDW 17.2 H Plt Count 298 MPV 10.7 Immature Gran % (Auto) 1.7 H Neut % (Auto) 83.2 H Lymph % (Auto) 7.0 L [place] % (Auto) 7.8 Eos % (Auto) 0.0 Baso % (Auto) 0.3 Lymph # (Auto) 2.7 [place] # (Auto) 3.0 H Eos # (Auto) 0.0 Baso # (Auto) 0.1 Abs Immat Gran (auto) 0.64 H Absolute Neuts (auto) 32.1 H Absolute Nucleated RBC 0.000 Nucleated RBC % (auto) 0.0 Smear Tech's Comments VERIFIED Sodium 132 L Potassium 3.8 Chloride 82 L Carbon Dioxide 34 H Anion Gap 20 BUN 47 H Creatinine 1.49 H Estim Creat Clear Calc 42.5 Estimated GFR 47 Random Glucose 185 H Calcium 9.3 Total Bilirubin 3.3 H Direct Bilirubin 2.2 H AST 267 H ALT 735 H Alkaline Phosphatase 124 H Total Protein 6.2 L Albumin 3.1 L <CARLY Smyth - Last Filed: 06/01/21 15:54> Progress Note: A&P Assessment and plan (1) Atrial flutter with rapid ventricular response: Status: Acute <CALOS SmythC - Last Filed: 06/01/21 15:54> Assessment and Plan: Reported hx of PAF. This admit with atrial flutter, variable rates. Home Amiodarone stopped this admit due to elevated LFTs.? He is on Metoprolol and has been started on EOD Digoxin for rate control. Tele today shows Aflutter rates in 130s since around 9p last henrietta, asymptomatic. Labs indicating dehydration. He has refused IV access. Discussed case with Dr Bradley. Will give dose of Digoxin today. She will again encourage IV access and order fluid bolus. If rates still elevated, may need further titration of Metoprolol dose. Acute HF has resolved. Unable to use Diltiazem due to reduced EF. Unable to do CVR at this time, as anticoagulation has been on hold due to elevated LFTs. LFTs have improved this admit but remain elevated, AST 267, ALT 735. Will further discuss with Dr Alvares. Plan to restart his Eliquis as soon as medically appropriate. Ongoing tele monitoring. <CARLY Smyth - Last Filed: 06/01/21 15:54> (2) Acute heart failure: Status: Acute <CARLY Smyth - Last Filed: 06/01/21 15:54> Assessment and Plan: Treated for atypical PNA and acute systolic HF this admit. Was diuresed with IV Lasix with fluid balance neg 4.3 liters this admit. Lasix had been changed to PO then stopped due to risk in Cr, BUN, drop in Chloride, NA. Planning Fluid bolus today, as above. Remains on IV antibiotics, steroids. WBC elevated at 38 which is likely related to steroid use. No longer wearing O2 with nasal cannula. Last CXR showed resolved opacities. Echo this admit showed EF 25%,? inferoseptal, mid inferior and mid anteroseptal segments akinetic - WMA seen on 01/2021 echo. EF at that time, 40-45%. Drop in EF could be related to atrial flutter with elevated rates. Hydrate cautiously due to low EF, avoid fluid overload. Continue I+O monitoring, Close monitoring of electrolyte and kidney function with replacement as warranted. Keep off diuretic at present time. ? <CARLY Smyth - Last Filed: 06/01/21 15:54> (3) Pneumonia: Status: Acute <CARLY Smyth - Last Filed: 06/01/21 15:54> (4) Cardiomyopathy: Status: Acute <CARLY Smyth - Last Filed: 06/01/21 15:54> Assessment and Plan: Hx of CAD, prior VT, CABG, CMP. EF had been in 40s in Jan and now 25%. Troponins normal this admit. No report of anginal symptoms. He does have hx of heroin use, drug abuse. Notes indicate he did have a witnessed cardiac arrest 2020, presumedly related to heroin overdose , per his cardiologists note. He was started on Amiodarone around that time and it was stopped this admit due to elevated LFTs. Tele reviewed and no NSVT seen. Will continue with Metoprolol and digoxin at present. Working on heart rate control currently. When appropriate, jesu/ arb can be considered for his CMP. Cr today 1.49 which is high for him. This pt follows with Dr Holden at [facility] cardiology. Outpt note from him, 03/27/21 reviewed and indicates that outpt ICD would be considered after a repeat echo. <CARLY Smyth - Last Filed: 06/01/21 15:54> (5) CAD (coronary artery disease): Status: Acute <Kristen Castro CARLY Quintero - Last Filed: 06/01/21 15:54> (6) Elevated liver enzymes: Status: Acute <Kristen Castro CARLY Quintero - Last Filed: 06/01/21 15:54> Assessment and Plan: Has improved some since admit. Statin, amiodarone, eliquis remain on hold. <Kristen Castro CARLY Quintero - Last Filed: 06/01/21 15:54> Assessment and Plan: Patient seen and examined at bedside. Clinically euvolemic. Off and on agitated and wants to go home. Atrial flutter is difficult to control. He was on amiodarone but due to liver enzyme elevation amiodarone has been stopped. Right now options are to continue digoxin and titrate beta-nina. Will increase Toprol-XL 150 mg daily. Thank you for allowing me to participate in the care of your patient. Please feel free to contact me if you have any questions. <Mukesh Alvares MD - Last Filed: 06/01/21 17:56> Fall Risk Details Current Medications: Current Medications Albuterol Sulfate (Albuterol Sulfate (0.083%) 2.5 Mg/3 Ml Vial.Neb) 2.5 mg INHALE Q2H PRN PRN Reason: Shortness of Breath/Wheezing Last Admin: 05/24/21 00:11 Dose: 2.5 mg Documented by: Albuterol/Ipratropium (Albuterol/Iprat 2.5/0.5mg 3 Ml Ampul.Neb) 3 ml INHALE RQ4H WHILE AWAKE [facility] Last Admin: 06/01/21 11:52 Dose: Not Given Documented by: Clonidine HCl (Clonidine Hcl 0.1 Mg Tablet) 0.1 mg PO BID [facility]; Protocol Last Admin: 06/01/21 10:12 Dose: 0.1 mg Documented by: Clotrimazole (Clotrimazole 10 Mg Diana) 10 mg MUCOUS MEM 5XD [facility] Last Admin: 06/01/21 05:39 Dose: Not Given Documented by: Digoxin (Digoxin 0.125 Mg Tablet) 0.125 mg PO Q2D [facility] Last Admin: 05/31/21 09:55 Dose: 0.125 mg Documented by: Escitalopram Oxalate (Escitalopram Oxalate 10 Mg Tablet) 10 mg PO DAILY [facility] Last Admin: 06/01/21 10:13 Dose: 10 mg Documented by: Guaifenesin/Dextromethorphan (Guaifenesin Dm 100/10/5 Ml 5 Ml Syrup) 10 ml PO TID [facility] Last Admin: 06/01/21 10:12 Dose: 10 ml Documented by: Sodium Chloride (Ns) 1,000 mls @ 100 mls/hr IVCONT .Q10H [facility] Levetiracetam (Levetiracetam 500 Mg Tablet) 500 mg PO BID [facility] Last Admin: 06/01/21 10:12 Dose: 500 mg Documented by: Metoprolol Succinate (Metoprolol Succinate Er 100 Mg Tab.Er.24h) 100 mg PO DAILY [facility]; Protocol Last Admin: 06/01/21 10:12 Dose: 100 mg Documented by: Multivitamins/Vitamin C (Multivitamin Tablet) 1 tab PO DAILY [facility] Last Admin: 06/01/21 10:13 Dose: 1 tab Documented by: Nicotine (Nicotine 21 Mg Patch.Td24) 21 mg TRANSDERMA DAILY [facility] Last Admin: 06/01/21 10:13 Dose: Not Given Documented by: Nicotine Polacrilex (Nicotine Polacrilex 2 Mg Gum) 2 mg BUCCAL Q1H PRN PRN Reason: Nicotine Cravings Omeprazole (Omeprazole 20 Mg Capsule.Dr) 20 mg PO DAILY [facility] Last Admin: 06/01/21 10:13 Dose: 20 mg Documented by: Ondansetron HCl (Ondansetron Hcl 4 Mg/2 Ml Vial) 4 mg IVPUSH Q8H PRN PRN Reason: Nausea and Vomiting Last Admin: 05/29/21 03:44 Dose: 4 mg Documented by: Pentoxifylline (Pentoxifylline Er 400 Mg Tablet.Er) 400 mg PO BID [facility] Last Admin: 06/01/21 10:13 Dose: 400 mg Documented by: Prednisone (Prednisone 20 Mg Tablet) 20 mg PO DAILY [facility] Last Admin: 06/01/21 10:12 Dose: 20 mg Documented by: Sodium Chloride (0.9 % Sodium Chloride Flush 3 Ml Syringe) 3 ml IVFLUSH QSHIFT [facility] Last Admin: 06/01/21 10:14 Dose: Not Given Documented by: Kavita Quintero NP-C - Last Filed: 06/01/21 15:54> Time Spent With Patient Time: Total time spent is greater than 50% in coordination of care (as documented) at patient's floor/unit and/or counseling patient: 24 <CARLY Smyth Last Filed: 06/01/21 15:54> Time with patient: 15 - 24 minutes <CARLY Smyth Last Filed: 06/01/21 15:54> Progress Note: Quality Stroke Does the patient have a stroke diagnosis?: No <CARLY Smyth Last Filed: 06/01/21 15:54> Procedures Date of Service Date of Service: 06/01/21 <CARLY Smyth Last Filed: 06/01/21 15:54>
[2021-06-01 12:00] VITALS: TEMP 36.3
[2021-06-01] MEDS: Digoxin 0.125 MG TABLET PO ×2 (13:12→17:26)
[2021-06-01] MEDS: 0.9 % Sodium Chloride 1,000 ML 100 ML IVCONT (13:12)
--- NOTE | 2021-06-01 13:12 | MHC.CLN ---
F/U PATIENT IS DAY 8 WITH LIMITED INTAKE. DIET IS REGULAR WITH ENSURE BID. ZERO INTAKE MOST MEALS. REFUSING IV PER NURSING NOTES. MD AWARE OF POOR INTAKE. FOLLOW PO AND NEED FOR ALTERNATE NUTRITION.
--- NOTE | 2021-06-01 15:14 | HO.PM.IMPN ---
Subjective Subjective Date of Service: 06/01/21 Interval History: Refusing meds, food and IV fluids, wants to leave against medical advice, denies chest pain no palpitations, tele monitor showed atrial fibrillation ventricular rate 130-140 range Review of Systems Review of Systems: Yes all other systems are reviewed and are negative Physical Exam Vital Signs: Vital Signs: Last Vital Signs Temp 97.3 F 06/01/21 12:00 Pulse 76 06/01/21 07:51 Resp 18 06/01/21 07:51 BP 105/67 06/01/21 07:51 Pulse Ox 94 06/01/21 00:45 BMI result Body Mass Index 22.2 Const: Other: General resting comfortably in no acute distress. Neck supple no JVD. CVS irregular rate rhythm, Respiratory lungs clear to auscultation, no respiratory distress, no wheeze, no rhonchi. Gastrointestinal abdomen soft, nontender, bowel sounds audible Extremities no edema. Neuro nonfocal Skin no rash Objective Data Active Medications Albuterol Sulfate (Albuterol Sulfate (0.083%) 2.5 Mg/3 Ml Vial.Neb) 2.5 mg INHALE Q2H PRN PRN Reason: Shortness of Breath/Wheezing Last Admin: 05/24/21 00:11 Dose: 2.5 mg Documented by: OSCAR Albuterol/Ipratropium (Albuterol/Iprat 2.5/0.5mg 3 Ml Ampul.Neb) 3 ml INHALE RQ4H WHILE AWAKE [facility] Last Admin: 06/01/21 11:52 Dose: Not Given Documented by: KARMEN Non-Admin Reason: Patient Refused Clonidine HCl (Clonidine Hcl 0.1 Mg Tablet) 0.1 mg PO BID [facility]; Protocol Last Admin: 06/01/21 10:12 Dose: 0.1 mg Documented by: SHORTY Clotrimazole (Clotrimazole 10 Mg Diana) 10 mg MUCOUS MEM 5XD [facility] Last Admin: 06/01/21 13:12 Dose: 10 mg Documented by: SHORTY Digoxin (Digoxin 0.125 Mg Tablet) 0.125 mg PO Q2D [facility] Last Admin: 05/31/21 09:55 Dose: 0.125 mg Documented by: BRIGIDA Escitalopram Oxalate (Escitalopram Oxalate 10 Mg Tablet) 10 mg PO DAILY [facility] Last Admin: 06/01/21 10:13 Dose: 10 mg Documented by: SHORTY Guaifenesin/Dextromethorphan (Guaifenesin Dm 100/10/5 Ml 5 Ml Syrup) 10 ml PO TID [facility] Last Admin: 06/01/21 10:12 Dose: 10 ml Documented by: SHORTY Sodium Chloride (Ns) 1,000 mls @ 100 mls/hr IVCONT .Q10H [facility] Last Admin: 06/01/21 13:12 Dose: 100 mls/hr Documented by: SHORTY Levetiracetam (Levetiracetam 500 Mg Tablet) 500 mg PO BID [facility] Last Admin: 06/01/21 10:12 Dose: 500 mg Documented by: SHORTY Metoprolol Succinate (Metoprolol Succinate Er 100 Mg Tab.Er.24h) 100 mg PO DAILY [facility]; Protocol Last Admin: 06/01/21 10:12 Dose: 100 mg Documented by: SHORTY Multivitamins/Vitamin C (Multivitamin Tablet) 1 tab PO DAILY [facility] Last Admin: 06/01/21 10:13 Dose: 1 tab Documented by: SHORTY Nicotine (Nicotine 21 Mg Patch.Td24) 21 mg TRANSDERMA DAILY [facility] Last Admin: 06/01/21 10:13 Dose: Not Given Documented by: SHORTY Non-Admin Reason: Patient Refused Nicotine Polacrilex (Nicotine Polacrilex 2 Mg Gum) 2 mg BUCCAL Q1H PRN PRN Reason: Nicotine Cravings Omeprazole (Omeprazole 20 Mg Capsule.Dr) 20 mg PO DAILY [facility] Last Admin: 06/01/21 10:13 Dose: 20 mg Documented by: SHORTY Ondansetron HCl (Ondansetron Hcl 4 Mg/2 Ml Vial) 4 mg IVPUSH Q8H PRN PRN Reason: Nausea and Vomiting Last Admin: 05/29/21 03:44 Dose: 4 mg Documented by: ODRISGloria Pentoxifylline (Pentoxifylline Er 400 Mg Tablet.Er) 400 mg PO BID [facility] Last Admin: 06/01/21 10:13 Dose: 400 mg Documented by: SHORTY Prednisone (Prednisone 20 Mg Tablet) 20 mg PO DAILY [facility] Last Admin: 06/01/21 10:12 Dose: 20 mg Documented by: SHORTY Sodium Chloride (0.9 % Sodium Chloride Flush 3 Ml Syringe) 3 ml IVFLUSH QSHIFT [facility] Last Admin: 06/01/21 10:14 Dose: Not Given Documented by: SHORTY Non-Admin Reason: No Access Labs CBC & Chem 7: 06/01/21 05:32 06/01/21 05:32 Labs: Laboratory Results - last 24 hr 06/01/21 06/01/21 06/01/21 05:32 05:32 05:32 MCV 79.3 L MCH 28.4 MCHC 35.8 RDW 17.2 H Plt Count 298 MPV 10.7 Immature Gran % (Auto) 1.7 H Neut % (Auto) 83.2 H Lymph % (Auto) 7.0 L Kimble % (Auto) 7.8 Eos % (Auto) 0.0 Baso % (Auto) 0.3 Lymph # (Auto) 2.7 Kimble # (Auto) 3.0 H Eos # (Auto) 0.0 Baso # (Auto) 0.1 Abs Immat Gran (auto) 0.64 H Absolute Neuts (auto) 32.1 H Absolute Nucleated RBC 0.000 Nucleated RBC % (auto) 0.0 Smear Tech's Comments VERIFIED Anion Gap 20 Estim Creat Clear Calc 42.5 Estimated GFR 47 Random Glucose 185 H Calcium 9.3 Total Bilirubin 3.3 H Direct Bilirubin 2.2 H AST 267 H ALT 735 H Alkaline Phosphatase 124 H Total Protein 6.2 L Albumin 3.1 L Assessment and Plan (1) MDD (major depressive disorder), recurrent episode, moderate: Status: Acute (2) Opioid use disorder, moderate, dependence: Status: Acute (3) Cardiomyopathy: Status: Acute (4) CAD (coronary artery disease): Status: Acute (5) Pneumonitis: Status: Acute (6) Pneumonia: Status: Acute (7) Atrial flutter with rapid ventricular response: Status: Acute (8) Atherosclerotic cardiovascular disease: Status: Acute (9) Elevated liver enzymes: Status: Acute (10) Acute heart failure: Status: Acute (11) Hypoxia: Status: Acute (12) Community acquired pneumonia: Status: Acute (13) Acute exacerbation of chronic obstructive airways disease: Status: Acute (14) Sepsis: Status: Acute Assessment and Plan: 66yo M with COPD not on home O2, CAD s/p CABG x2, combined systolic/diastolic HF, AF on apixaban, CVA without residual deficit, PAD, tobacco abuse [1.5 ppd], hx heroin + cocaine abuse, seizure disorder, possible VF arrest with status epilepticus back in Jan 2021 presented to his PCP's office with dyspnea and was noted to be hypoxic,arrived here hypotensive and hypoxic but fluid-responsive admitted for sepsis from multifocal PNA # acute hypoxic respiratory failure - resolved finger oximetry 92 on room air # PNA- CAP?? atypical?? amiodarone/heroin drug-induced lung injury?? allergic-type pneumonitis?/COPD exacerbation Finish 7 day course of ceftriaxone + doxycycline - CXR shows resolution of infiltrates - urine antigens for pneumococcus neg. Legionella pending - on prednisone 20 mg daily, will wean steroids or course of next few days - continue nebs - d/c'ed amiodarone - pt has very high IgE level [1827, ULN is 114] and will need outpt Pulm f/u for further allergy testing # acute/chronic HFrEF # cardiomyopathy, ischemic + drug-related - appears euvolemic, status post IV Lasix , diuretics discontinued since creatinine trending up, patient appears dehydrated , will give IV fluid likely dehydration contributing to tachycardia - continue metoprolol, cardiology agree with metoprolol and home with holding Lasix # hypokalemia will replace and follow likely due to diuretics # atrial flutter with variable conduction - persistent tachycardia ventricular rate 130-140 range patient asymptomatic, soft BP - continue metoprolol + digoxin, will give gentle IV fluid likely due to dehydration, decrease dose of clonidine to 0.1 mg daily - apixaban held due to elevated LFTs + INR, resume when improved, will follow digoxin level # sepsis - resolved, no lactic acidosis, hypotension resolved # poor by mouth intake in last several days, will obtain competency eval, if incompetent will discuss alternate feeding with family, continue supplements, encourage patient to take by mouth # transaminasemia/acute liver injury - GI consulted - LFTs significantly elevated,? related to drug toxicity versus passive congestion versus ischemic hepatitis.? improving - acute HAV IgM negative - abd Doppler normal - HBV/HCV/HIV viral loads( pending) to r/o acute infection - unlikely due to chronic use of statin or amiodarone per GI # thrush - clotrimazole troches.? HIV negative ? # history of peripheral arterial disease/coronary artery disease status post CABG - continue metoprolol succinate + pentoxyfilline; no aspirin or statin due to liver toxicity and elevated INR # seizure disorder - continue levetiracteam, take seizure precautions # mood disorder - seen by Psychiatry patient diagnosed to have no suicidal or homicidal ideation, has history of depression, they discontinued Zoloft due to liver impairment and place patient on Lexapro 10 mg daily , support provided counseling done, requested psych to evaluate patient for competency since it is requesting to leave AMA. # opioid use disorder history of cocaine abuse - was on Suboxone in past but did not tolerate; drug toxicology positive for fentanyl, patient admits use of heroin - seen by Recovery Team; no withdrawal symptoms noted # tobacco abuse - on nicotine patch, counseling done # VTE ppx - compression boots # dispo - lives at home with , plan to return there upon discharge, spoke with this a.m. regarding patient wanting to leave against medical advice she feels patient has cognitive impairment and she does not want him to return home until treatment is completed, convince patient to stay Quality Stroke Does the patient have a stroke diagnosis?: No VTE Prior VTE?: No VTE Risk Level:: Medical - moderate - high VTE Device Contraindication: N/A - Device Ordered VTE Drug Contraindication: N/A - Med Ordered
[2021-06-01 15:36] VITALS: BP 102/59; PULSE 138; RESP 18; TEMP 36.3; O2SAT 94
[2021-06-01] MEDS: Metoprolol Succinate ER 50 MG TAB.ER.24H PO (17:27)
--- NOTE | 2021-06-01 18:03 | PM.PSYCN ---
History of Present Illness Date of Service: 06/01/2021 Chief Complaint: pna Reason for Consult: capacity Requesting physician: Perlita Bradley Discussed with referring provider: Yes Sources of Information: patient interviewed and chart reviewed HPI Narrative: Phan is a 66 y.o. Male who presented to [facility] ED 05/22/2021 with general malaise x 1 week, saw his PCP today and found his oxygen saturation to be 88% on room air. He has a history of congestive heart failure, COPD, and polysubstance use disorder (on suboxone in the past but did not tolerate). Pt?s utox was positive for fentanyl, admitted to using heroin. He is a smoker, has baseline cough, and was found to have dyspnea on exertion, hypoxic, and hypotensive. He was admitted to [facility] for further workup due to sepsis secondary to pneumonia and put on IV antibiotics and 2L oxygen. He was seen by Recovery Team. Psych Consult placed again for capacity eval. His is his HCP if invoked. I evaluated the pt this evening and upon inquiry he reports he is not eating because ?Im just not hungry.? Discussed concerns of dehydration and he reports he has been drinking ice water today. Per RN, he briefly accepted IV fluids. I asked if he is restricting as a suicide attempt and he denies this. Says he wants to go home and ?I?ll eat when I get home.? He understands the risk of not eating and that ?Id starve.? He does admit to feeling ?depressed? but refused a PHQ-9 assessment, saying ?I dont feel like answering a million questions.? He was recently started on lexapro 10 mg but denies benefit. Continues to report poor sleep. He is A&Ox 4 and states he understands the risks of leaving AMA, after which he stated ?now will you leave me alone?? Says he wants discharge AMA because ?I want to get home to my and daughter.? When asked if he experiences similar sx of malaise, SOB, or pain would he seek medical attention, pt stated he would but ?Im going to [facility] if I come back, this place is a shit hole.?? I spoke with pt?s , who reports she would prefer her to stay inpatient until he is medically cleared, as she worries about him ending up back in the hospital. However, she says she believes ?he can make good decisions? and would accept him back home. She says he would not answer her calls today because he was ?mad? that she told him to follow medical advice and accept IV fluids, interventions, and eat. Per , ?will start getting nasty and put the breaks on if he doesnt get his way.? Past Psychiatric History: Patient denies any psychiatric diagnosis he has history, denies any type of past treatment including counseling, PHP, inpatient stays, medications. Patient does have history of substance use disorder, reports active participation in 12 step programs at 1 time, although not current. Medical Evaluation Reviewed: Yes [facility] Medical History (Updated 05/31/21 @ 13:44 by Deborah Cavazos NP) Acute combined systolic and diastolic congestive heart failure Atrial fibrillation Atrial flutter Atrial flutter CAD (coronary artery disease) Cardiac arrest Cardiomyopathy CHF (congestive heart failure) Cocaine abuse with intoxication COPD (chronic obstructive pulmonary disease) Coronary bypass graft mechanical complication Drug abuse 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 Heroin use History of hemorrhagic cerebrovascular accident (CVA) without residual deficits Hyperlipemia Opioid use disorder Paroxysmal atrial fibrillation Pneumonia Pneumonitis PVD (peripheral vascular disease) Seizure disorder Seizure-like activity Subclavian arterial stenosis Toxic encephalopathy Surgical History S/P CABG x 2 Social History: Lives with in home. Diagnostics Vital Signs (24Hr): Vital Signs - 24 hr 05/31/21 19:58 05/31/21 21:09 06/01/21 00:45 Temperature 97.2 F 97.0 F Pulse Rate 51 96 133 H Respiratory Rate 16 16 Blood Pressure 117/77 95/51 L Pulse Oximetry 94 94 06/01/21 07:51 06/01/21 12:00 06/01/21 15:36 Temperature 97.1 F 97.3 F 97.4 F Pulse Rate 76 138 H Respiratory Rate 18 18 Blood Pressure 105/67 102/59 L Pulse Oximetry 94 BMI result Body Mass Index 22.2 Labs Results: 06/01/21 05:32 06/02/21 05:45 Labs: Laboratory Results - last 48 hr 05/31/21 05/31/21 05/31/21 05:07 05:07 05:07 WBC 27.5 H RBC 6.34 H Hgb 17.6 Hct 49.7 MCV 78.4 L MCH 27.8 MCHC 35.4 RDW 17.5 H Plt Count 360 MPV 10.2 Immature Gran % (Auto) Neut % (Auto) Lymph % (Auto) Blanco % (Auto) Eos % (Auto) Baso % (Auto) Lymph # (Auto) Blanco # (Auto) Eos # (Auto) Baso # (Auto) Abs Immat Gran (auto) Absolute Neuts (auto) Absolute Nucleated RBC 0.000 Nucleated RBC % (auto) 0.0 Smear Tech's Comments PT 20.7 H INR 1.8 H Sodium 132 L Potassium 3.2 L Chloride 84 L Carbon Dioxide 36 H Anion Gap 15 BUN 41 H Creatinine 1.18 Estim Creat Clear Calc 53.7 Estimated GFR > 60 Random Glucose 166 H Calcium 8.8 Total Bilirubin 3.1 H Direct Bilirubin AST 309 H ALT 825 H Alkaline Phosphatase 122 H Total Protein 6.2 L Albumin 3.0 L TSH 0.11 L Free T4 1.21 06/01/21 06/01/21 06/01/21 05:32 05:32 05:32 WBC 38.6 H* RBC 6.34 H Hgb 18.0 Hct 50.3 MCV 79.3 L MCH 28.4 MCHC 35.8 RDW 17.2 H Plt Count 298 MPV 10.7 Immature Gran % (Auto) 1.7 H Neut % (Auto) 83.2 H Lymph % (Auto) 7.0 L Blanco % (Auto) 7.8 Eos % (Auto) 0.0 Baso % (Auto) 0.3 Lymph # (Auto) 2.7 Blanco # (Auto) 3.0 H Eos # (Auto) 0.0 Baso # (Auto) 0.1 Abs Immat Gran (auto) 0.64 H Absolute Neuts (auto) 32.1 H Absolute Nucleated RBC 0.000 Nucleated RBC % (auto) 0.0 Smear Tech's Comments VERIFIED PT INR Sodium 132 L Potassium 3.8 Chloride 82 L Carbon Dioxide 34 H Anion Gap 20 BUN 47 H Creatinine 1.49 H Estim Creat Clear Calc 42.5 Estimated GFR 47 Random Glucose 185 H Calcium 9.3 Total Bilirubin 3.3 H Direct Bilirubin 2.2 H AST 267 H ALT 735 H Alkaline Phosphatase 124 H Total Protein 6.2 L Albumin 3.1 L TSH Free T4 Imaging Radiology Impressions: ITS Impressions Chest X-Ray 05/22/21 12:20 IMPRESSION: Diffuse bilateral infiltrates. Abdomen Ultrasound 05/23/21 09:53 IMPRESSION: No significant abnormality identified. Chest X-Ray 05/24/21 16:15 IMPRESSION: Diffuse bilateral patchy airspace opacities increased from prior exam 05/22/2021. Chest X-Ray 05/27/21 08:25 IMPRESSION: [id number] interval improvement in diffusely scattered bilateral patchy airspace opacities with persistent mild changes along with interstitial prominence. Given the significant interval improvement in a short period of time, the findings on the previous x-rays are probably suggestive of pulmonary edema. Infectious/inflammatory process although cannot be completely excluded. Recommend clinical correlation. Chest CT 05/27/21 11:09 IMPRESSION: Diffuse multifocal airspace opacities. Commonly reported imaging features of COVID-19 pneumonia are present. Other processes such as influenza pneumonia or organizing pneumonia can cause a similar imaging appearance, as can certain drug toxicities and connective tissue disorders. Fleischner guidelines were followed. Chest X-Ray 05/29/21 09:30 IMPRESSION: Post-CABG changes. Resolved groundglass and interstitial disease from previous recent exams. Doppler Study Ultrasound 05/29/21 09:44 IMPRESSION: Normal liver Doppler exam. No evidence of portal or hepatic vein thrombus. Mental Status Exam Mental Status Exam Narrative: A&O. Pt appears older than stated age, in hospital attire, lying down in bed. Poor eye contact, inattentive. No Tics or Tremors. No abnormal involuntary movements. Withdrawn, difficult to engage, ultimately not cooperative with interview. Non-pressured speech, non-spontaneous with regular rate and rhythm, quiet volume and normal prosody. No prolonged speech latency or dysarthria. Mood is ?depressed,? affect is dysphoric. Denies SI/SIB/HI upon inquiry. Denies A/VH or delusional thought content. Thoughts are evasive, focus on discharge. Unknown cognitive/ memory impairment, however pt's suspects this. Insight/ Judgment limited. Medications Medications Current Medications Albuterol Sulfate (Albuterol Sulfate (0.083%) 2.5 Mg/3 Ml Vial.Neb) 2.5 mg INHALE Q2H PRN PRN Reason: Shortness of Breath/Wheezing Last Admin: 05/24/21 00:11 Dose: 2.5 mg Documented by: Albuterol/Ipratropium (Albuterol/Iprat 2.5/0.5mg 3 Ml Ampul.Neb) 3 ml INHALE RQ4H WHILE AWAKE [facility] Last Admin: 06/01/21 15:20 Dose: Not Given Documented by: Clonidine HCl (Clonidine Hcl 0.1 Mg Tablet) 0.1 mg PO DAILY [facility]; Protocol Clotrimazole (Clotrimazole 10 Mg Diana) 10 mg MUCOUS MEM 5XD [facility] Last Admin: 06/01/21 17:28 Dose: Not Given Documented by: Digoxin (Digoxin 0.125 Mg Tablet) 0.125 mg PO Q2D [facility] Last Admin: 05/31/21 09:55 Dose: 0.125 mg Documented by: Escitalopram Oxalate (Escitalopram Oxalate 10 Mg Tablet) 10 mg PO DAILY [facility] Last Admin: 06/01/21 10:13 Dose: 10 mg Documented by: Guaifenesin/Dextromethorphan (Guaifenesin Dm 100/10/5 Ml 5 Ml Syrup) 10 ml PO TID [facility] Last Admin: 06/01/21 17:26 Dose: 10 ml Documented by: Sodium Chloride (Ns) 1,000 mls @ 100 mls/hr IVCONT .Q10H [facility] Last Admin: 06/01/21 13:12 Dose: 100 mls/hr Documented by: Levetiracetam (Levetiracetam 500 Mg Tablet) 500 mg PO BID [facility] Last Admin: 06/01/21 10:12 Dose: 500 mg Documented by: Metoprolol Succinate (Metoprolol Succinate Er 100 Mg Tab.Er.24h) 100 mg PO DAILY [facility]; Protocol Last Admin: 06/01/21 10:12 Dose: 100 mg Documented by: Metoprolol Succinate (Metoprolol Succinate Er 50 Mg Tab.Er.24h) 50 mg PO DAILY@1700 [facility]; Protocol Last Admin: 06/01/21 17:27 Dose: 50 mg Documented by: Multivitamins/Vitamin C (Multivitamin Tablet) 1 tab PO DAILY [facility] Last Admin: 06/01/21 10:13 Dose: 1 tab Documented by: Nicotine (Nicotine 21 Mg Patch.Td24) 21 mg TRANSDERMA DAILY [facility] Last Admin: 06/01/21 10:13 Dose: Not Given Documented by: Nicotine Polacrilex (Nicotine Polacrilex 2 Mg Gum) 2 mg BUCCAL Q1H PRN PRN Reason: Nicotine Cravings Omeprazole (Omeprazole 20 Mg Capsule.Dr) 20 mg PO DAILY [facility] Last Admin: 06/01/21 10:13 Dose: 20 mg Documented by: Ondansetron HCl (Ondansetron Hcl 4 Mg/2 Ml Vial) 4 mg IVPUSH Q8H PRN PRN Reason: Nausea and Vomiting Last Admin: 05/29/21 03:44 Dose: 4 mg Documented by: Pentoxifylline (Pentoxifylline Er 400 Mg Tablet.Er) 400 mg PO BID [facility] Last Admin: 06/01/21 10:13 Dose: 400 mg Documented by: Prednisone (Prednisone 20 Mg Tablet) 20 mg PO DAILY [facility] Last Admin: 06/01/21 10:12 Dose: 20 mg Documented by: Sodium Chloride (0.9 % Sodium Chloride Flush 3 Ml Syringe) 3 ml IVFLUSH QSHIFT [facility] Last Admin: 06/01/21 17:27 Dose: Not Given Documented by: Allergies Allergies Allergy/AdvReac Type Severity Reaction Status Date / Time No Known Allergies Allergy Unverified 01/12/21 01:03 Assessment & Plan Assessment & Plan (1) MDD (major depressive disorder), recurrent episode, moderate: Status: Acute Code(s): F33.1 - Major depressive disorder, recurrent, moderate (2) Opioid use disorder, moderate, dependence: Status: Acute Code(s): F11.20 - Opioid dependence, uncomplicated Assessment and Plan: -Continue monitoring medically. Patient is currently medically cleared. -Consult requested for capacity. At this time, pt is deemed to have capacity for medical decision making. He is making a choice to refuse interventions despite being provided education by T/W and hospitalist that he is dehydrated and has medical sequelae. He demonstrates an understanding of risks of not following medical advice. Pt does endorse sx of depression and is agitated, recently started on lexapro 10 mg, however per and chart review pt has history of refusing care and thus this decision does not appear to be a function of his depression. I have shared this with Dr. Bradley. Thank you for this consultation. If you have any questions or concerns, please do not hesitate to contact psychiatry service. ? I spent minutes with the patient and/or on the patient floor today, greater than?50% of which was spent counseling/coordinating care.
[2021-06-01 19:06] LABS: HIV RNA PCR Qn Copies <20 Copies/mL; HIV RNA PCR Qn Log Copies <1.30 Log cps/mL
[2021-06-01 19:16] LABS: HCV Log PCR <1.18 log IU/mL; HepC Viral Load <15 IU/mL
[2021-06-01 19:18] VITALS: BP 192/124; PULSE 111; RESP 18; TEMP 36.1
[2021-06-01 20:00] VITALS: BP 192/124; PULSE 111; TEMP 36.1; O2SAT 94
[2021-06-01] MEDS: 0.9 % Sodium Chloride Flush 3 ML SYRINGE IVFLUSH (21:34)
[2021-06-02] VITALS (8 sets, daily range): BP systolic 90–104; BP diastolic 47–65; PULSE 62–96; RESP 15–19; TEMP 36–36.9; O2SAT 92–98
--- NOTE | 2021-06-02 | ECG_ITS ---
Test Reason : high heart rate Blood Pressure : / mmHG Vent. Rate : 096 BPM Atrial Rate : 267 BPM P-R Int : 000 ms QRS Dur : 114 ms QT Int : 314 ms P-R-T Axes : 261 085 -60 degrees QTc Int : 396 ms Poor data quality Atrial flutter with variable A-V block Incomplete left bundle branch block Minimal voltage criteria for LVH, may be normal variant ( [place] product ) ST elevation in Anterior leads Abnormal ECG When compared to the previous EKG of No significant changes seen Referred By: Perlita Bradley Electronically Signed By:LALIT GILLIAM MD
[2021-06-02] MEDS: Albumin Human 25 % 100 ML IV ×2 (01:39→02:30)
[2021-06-02 02:27] LABS: OBS Int Ctl Valid YES; OBS1 POSITIVE (NEGATIVE)
--- NOTE | 2021-06-02 02:31 | PM.EVENT ---
Event Note Date of Service: 06/02/21 Event Note: Hypotension: around 1:00 a.m. on 06/02/2021 -RN mentioned that patient blood pressure was not recordable. Went in and examined the patient, patient denies any lightheadedness or dizziness even after sitting. Noted to have hold lower extremities, feeble pulses. With Doppler able to obtain the systolic blood pressure of 78. Upon review patient has been in AFib with rapid ventricular response with heart rate in 130s throughout the day. Patient is receiving metoprolol 100 mg in the morning and 50 mg in the evening; low-dose digoxin was added with close monitoring given renal insufficiency. And cardiology has been following the patient Patient given find it cc of normal saline bolus patient did receive metoprolol 50 mg in the evening but unable to glucagon given persistent RVR. Discussed with ICU ; history member evaluated the patient. Mentioned -would like to try albumin and await the labs and will consider ICU transfer if not improving. Update: pt's BP improved after 2 ampl. of albumin to 91/49. ICU recommended to keep pt on floor for now. GI bleed: Noted dark brown stool. stool guaiac positive; pt admantly refusing CBC and BMP. spoke to RN to try again in couple hrs. IV PPI. GI consult. Acute CHF: Patient is currently off the Lasix Currently as per the primary team secondary to dehydration.
--- NOTE | 2021-06-02 03:46 | PC.NURSE ---
06/02/21 at midnight unable to get a b/p with dinamap and manually.pt also inc if loose dark maroon colored stool. notified in to see pt. 1liter ns bolus given.pump servicer supervisor also notified.b/p 78 systolic with doppler ..ICU PA Shadia in to see pt.2 bottles of albumin ordered and given,stat labs ordered.phlebotomy tried multiple times to draw without success.ICU PA notified.stool for OB sent and was positive.b/p after albumin was 100/47 pulse 81.Shadia notified.
[2021-06-02 06:32] LABS: Anion Gap 18 (12-20); Blood Urea Nitrogen 42 mg/dL (9-16); Calcium 8.8 mg/dL (8.4-10.2); Carbon Dioxide 29 mmol/L (22-29); Chloride 90 mmol/L (96-108); Creatinine Clr Calc Pharmacy 54.6; Estimated Glomerular Filt Rate > 60; Glucose Random 108 mg/dL (60-115); Potassium 3.3 mmol/L (3.3-5.1); Sodium 134 mmol/L (135-145)
[2021-06-02 06:37] LABS: Digoxin 1.2 ng/mL (0.8-2.0)
--- NOTE | 2021-06-02 09:07 | P.CNGI_ITS ---
History of Present Illness Data of Consult Service Date: 06/02/21 Requesting physician: Ricco Mullins Primary Care Provider: Tony Rhodes MD HPI Reason for consult: ? GI Bleed, guaic positive stools 66yo M with COPD not on home O2, CAD s/p CABG x2, combined systolic/diastolic HF, AF on apixaban, CVA without residual deficit, PAD, tobacco abuse [1.5 ppd], hx heroin + cocaine abuse, seizure disorder, possible VF arrest with status epilepticus back in Jan 2021 admitted to [facility] on [place]21 with dyspnea and was noted to be hypoxic and noted to be hypotensive on arrival - responded to IVF. Pt was diagnosed with sepsis from multifocal PNA and treated with antibioptics. Hospital course complicated by elevated LFTs which are improving Pt noted to be hypotensive at 1:00 a.m. on 06/02/2021 -RN mentioned that patient blood pressure was not recordable.? Patient denied any lightheadedness or dizziness.?Noted to have systolic blood pressure of 78 by doppler. Patient has been in AFib with rapid ventricular response with heart rate in 130s throughout the day.? Patient was treated with normal saline bolus and IV albumin Improved after 2 ampl. of albumin to 91/49. ICU recommended to keep pt on floor for now. GI bleed:? Noted dark brown stool.? stool guaiac positive; Pt refusing medications + infusions + labs Denies any abdominal pain. Not willing to answer any questions and wants to be left alone Review of Systems Review of Systems: Not obtainable since pt refusing to answer any questions and want to be left alone [facility] Past Medical History Medical History (Updated 06/03/21 @ 16:15 by Mariana Russ MD) Acute combined systolic and diastolic congestive heart failure Atrial fibrillation Atrial flutter Atrial flutter CAD (coronary artery disease) Cardiac arrest Cardiomyopathy CHF (congestive heart failure) Cocaine abuse with intoxication COPD (chronic obstructive pulmonary disease) Coronary bypass graft mechanical complication Drug abuse 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 Heroin use History of hemorrhagic cerebrovascular accident (CVA) without residual deficits Hyperlipemia Opioid use disorder Paroxysmal atrial fibrillation Pneumonia Pneumonitis PVD (peripheral vascular disease) Seizure disorder Seizure-like activity Subclavian arterial stenosis Toxic encephalopathy Surgical History Surgical History S/P CABG x 2 Social History Social History Household Members: Spouse Housing: House Do you presently have visiting nurse or other home services: No Unable to assess alcohol history related to: Unable to respond Alcohol intake: former Patient Tobacco Use Status: Current everyday Tobacco user Tobacco use type: Cigarette Cigarette Packs Per Day: 2 Cigarettes Per Day: 40.0 e-Cigarette/Vaping Use: Never Used Second Hand Smoke Exposure: Yes Substance Use Type: Heroin Advance Directives Date on File: 01/12/21 service: No Current occupational status: retired Meds Allergies Allergy/AdvReac Type Severity Reaction Status Date / Time No Known Allergies Allergy Unverified 01/12/21 01:03 Active Medications: Current Medications Albuterol Sulfate (Albuterol Sulfate (0.083%) 2.5 Mg/3 Ml Vial.Neb) 2.5 mg INHALE Q2H PRN PRN Reason: Shortness of Breath/Wheezing Last Admin: 05/24/21 00:11 Dose: 2.5 mg Documented by: Albuterol/Ipratropium (Albuterol/Iprat 2.5/0.5mg 3 Ml Ampul.Neb) 3 ml INHALE RQ4H WHILE AWAKE [facility] Last Admin: 06/02/21 07:52 Dose: Not Given Documented by: Clonidine HCl (Clonidine Hcl 0.1 Mg Tablet) 0.1 mg PO DAILY [facility]; Protocol Clotrimazole (Clotrimazole 10 Mg Diana) 10 mg MUCOUS MEM 5XD [facility] Last Admin: 06/02/21 05:42 Dose: Not Given Documented by: Digoxin (Digoxin 0.125 Mg Tablet) 0.125 mg PO Q2D [facility] Last Admin: 05/31/21 09:55 Dose: 0.125 mg Documented by: Escitalopram Oxalate (Escitalopram Oxalate 10 Mg Tablet) 10 mg PO DAILY [facility] Last Admin: 06/01/21 10:13 Dose: 10 mg Documented by: Guaifenesin/Dextromethorphan (Guaifenesin Dm 100/10/5 Ml 5 Ml Syrup) 10 ml PO TID [facility] Last Admin: 06/01/21 21:32 Dose: 10 ml Documented by: Sodium Chloride (Ns) 1,000 mls @ 100 mls/hr IVCONT .Q10H [facility] Last Admin: 06/02/21 06:35 Dose: Not Given Documented by: Levetiracetam (Levetiracetam 500 Mg Tablet) 500 mg PO BID [facility] Last Admin: 06/01/21 21:32 Dose: 500 mg Documented by: Metoprolol Succinate (Metoprolol Succinate Er 100 Mg Tab.Er.24h) 100 mg PO DAILY [facility]; Protocol Last Admin: 06/01/21 10:12 Dose: 100 mg Documented by: Metoprolol Succinate (Metoprolol Succinate Er 50 Mg Tab.Er.24h) 50 mg PO DAILY@1700 [facility]; Protocol Last Admin: 06/01/21 17:27 Dose: 50 mg Documented by: Multivitamins/Vitamin C (Multivitamin Tablet) 1 tab PO DAILY [facility] Last Admin: 06/01/21 10:13 Dose: 1 tab Documented by: Nicotine (Nicotine 21 Mg Patch.Td24) 21 mg TRANSDERMA DAILY [facility] Last Admin: 06/01/21 10:13 Dose: Not Given Documented by: Nicotine Polacrilex (Nicotine Polacrilex 2 Mg Gum) 2 mg BUCCAL Q1H PRN PRN Reason: Nicotine Cravings Ondansetron HCl (Ondansetron Hcl 4 Mg/2 Ml Vial) 4 mg IVPUSH Q8H PRN PRN Reason: Nausea and Vomiting Last Admin: 05/29/21 03:44 Dose: 4 mg Documented by: Pantoprazole Sodium (Pantoprazole Sodium 40 Mg/10 Ml Vial) 40 mg IVPUSH BID@0630,1630 [facility] Pentoxifylline (Pentoxifylline Er 400 Mg Tablet.Er) 400 mg PO BID [facility] Last Admin: 06/01/21 21:32 Dose: 400 mg Documented by: Prednisone (Prednisone 20 Mg Tablet) 20 mg PO DAILY [facility] Last Admin: 06/01/21 10:12 Dose: 20 mg Documented by: Sodium Chloride (0.9 % Sodium Chloride Flush 3 Ml Syringe) [facility] Admin: 06/01/21 21:34 Dose: 3 ml Documented by: Home Medications Medication Instructions Recorded Confirmed Last Taken Type apixaban 5 mg tablet (Eliquis) 5 mg PO BID 01/12/21 05/22/21 05/21/21 History aspirin 81 mg tablet 81 mg PO DAILY 01/12/21 05/22/21 05/21/21 History atorvastatin 40 mg tablet 40 mg PO BEDTIME 01/12/21 05/22/21 05/21/21 History clonidine HCl 0.1 mg tablet 0.1 mg PO BID 01/12/21 05/22/21 05/21/21 History omeprazole 20 mg capsule,delayed 20 mg PO DAILY 01/12/21 05/22/21 05/21/21 History release pentoxifylline 400 mg 1 tab PO BID 01/18/21 05/22/21 05/21/21 History tablet,extended release B-complex with vitamin C 1 tab PO DAILY 05/22/21 05/22/21 05/21/21 History multivitamin 1 tab PO DAILY 05/22/21 05/22/21 05/21/21 History sertraline 50 mg tablet 1 tab PO DAILY 05/22/21 05/22/21 05/21/21 History vitamin E 1 tab PO DAILY 05/22/21 05/22/21 05/21/21 History Physical Exam Vital Signs: Vital Signs: Last Vital Signs Temp 97.3 F 06/02/21 08:00 Pulse 95 06/02/21 08:00 Resp 19 06/02/21 08:00 BP 90/54 L 06/02/21 08:00 Pulse Ox 98 06/02/21 08:00 BMI result Body Mass Index 22.2 Const: General: healthy appearing and no acute distress Nutritional Appearance: average body habitus Orientation/consciousness: patient oriented x3 Limitations: no limitations HENMT: Head: Yes normal to inspection Ears: hearing grossly normal bilaterally Mouth: Normal oral and palatal mucosa present Eyes: Sclerae: sclerae normal Pupils: Equal, round and reactive pupils present Neck: Neck: Yes normal visual inspection Chest: Chest palpation & inspection: normal inspection of the chest Resp: Effort & Inspection: normal respiratory effort Auscultation: clear to auscultation bilaterally Cardio: Palpation: normal PMI Rhythm: abnormal rhythm ( irregularly irregular) Heart sounds: S1 normal heart sound present, S2 normal heart sound present and no murmurs GI: Palpation (GI): Soft to palpation, nontender and No hepatosplenomegaly present Auscultation: normal bowel sounds Rectal Exam - Male: Yes deferred Skin: General skin exam: no rashes or lesions noted Neuro: General: patient oriented x3, gait normal and moves all extremities Cranial nerves: Yes Equal, round and reactive pupils present Psych: Appearance: grossly normal Mental Status: mental status grossly normal Results Labs CBC & Chem 7: 06/02/21 08:38 06/02/21 05:45 Labs: BMP 06/02/21 05:45 Sodium 134 L Potassium 3.3 Chloride 90 L Carbon Dioxide 29 BUN 42 H Creatinine 1.16 Calcium 8.8 Microbiology Microbiology Results: Microbiology 05/22/21 12:49 Blood - Venous Blood Culture - Final No growth after 5 days. 05/22/21 12:11 Blood - Venous Blood Culture - Final No growth after 5 days. Assessment and Plan (1) Elevated liver enzymes: Status: Acute (2) Heme positive stool: Status: Acute 66yo M with COPD not on home O2, CAD s/p CABG x2, combined systolic/diastolic HF, AF on apixaban, CVA without residual deficit, PAD, tobacco abuse [1.5 ppd], hx heroin + cocaine abuse, seizure disorder, possible VF arrest with status epilepticus back in Jan 2021 admitted to [facility] [place] on 05/22/21 with dyspnea and was noted to be hypoxic and noted to be hypotensive on arrival - responded to IVF. Pt was diagnosed with sepsis from multifocal PNA and treated with antibioptics. Hospital course complicated by elevated LFTs which are improving Pt noted to be hypotensive at 1:00 a.m. on 06/02/2021 and treated with normal saline bolus and IV albumin with improvement Pt noted to have dark brown stool which were guaiac positive without overt bleeding - unlikely to have active GI bleeding and not a likely cause of hypotension. Decrease in Hb from 18 to 14.6 over a day likely related to IV hydration. Heme-positive stools likely due to stress gastritis/peptic ulcer disease Pt refusing medications + infusions + labs. Not willing to answer any questions and wants to be left alone RECOMMENDATIONS: 1. Continue IV PPI twice daily and switch to PO after 48 hrs. 2. Monitor H & H daily - when pt allows blood draws and transfuse prn if Hb < 7. 3. Pt is refusing all interventions at present. Procedures Date of Service Date of Service: 06/03/21
[2021-06-02] MEDS: Pentoxifylline ER 400 MG TABLET.ER PO ×2 (09:11→20:48)
[2021-06-02] MEDS: Multivitamin TABLET 1 TAB PO (09:11)
[2021-06-02] MEDS: predniSONE 20 MG TABLET PO (09:11)
[2021-06-02] MEDS: Escitalopram Oxalate 10 MG TABLET PO (09:11)
[2021-06-02] MEDS: levETIRAcetam 500 MG TABLET PO ×2 (09:11→20:48)
[2021-06-02] MEDS: Metoprolol Succinate ER 100 MG TAB.ER.24H PO (09:11)
[2021-06-02] MEDS: guaiFENesin DM 100/10/5 ML 5 ML SYRUP 10 ML PO ×3 (09:12→20:48)
[2021-06-02] MEDS: 0.9 % Sodium Chloride Flush 3 ML SYRINGE IVFLUSH (09:12)
[2021-06-02] MEDS: cloNIDine HCL 0.1 MG TABLET PO (09:16)
--- NOTE | 2021-06-02 09:20 | PC.NURSE ---
patient refusing IV fluids, refusing to drink fluids and he is refusing to eat too.
[2021-06-02 09:46] LABS: Eos%MD 0.1 %; Hematocrit 41.6 % (42.0-52.0); Hemoglobin 14.6 g/dl (14.0-18.0); IG%MD 2.2 %; Lymph%MD 5.5 %; Mean Corpuscular HGB Conc 35.1 g/dl (31.0-36.0); Mean Corpuscular Hemoglobin 28.5 pg (27.0-33.0); Mean Corpuscular Volume 81.3 fL (80.0-98.0); Mean Platelet Volume 11.8 fL (9.4-12.4); Mono%MD 8.1 %; Neut%MD 84.1 %; Platelet Count 180 X10*3/uL (160-400); Red Blood Count 5.12 X10*6/uL (4.60-5.80)
[2021-06-02 10:14] LABS: WBC ABN SCTR FOR CBC 1
[2021-06-02 10:24] LABS: White Blood Count 48.1 X10*3/uL (4.8-10.8)
--- NOTE | 2021-06-02 10:31 | PC.NURSE ---
critical WBC of 48.1, doctor notified
--- NOTE | 2021-06-02 10:40 | MHC.CM.PN ---
PATIENT STATES HE WANTS TO GO HOME ON FRIDAY (06/04/21) HE IS ACCEPTING OF A [facility] REFERRAL. CURRENTLY AWAITING PSYCHIATRIC FINAL DETERMINATION FOR [facility] ([phone]) IS WILLING TO ACCEPT VNA IN THE HOME SHE IS UNABLE TO COME TO [facility] FOR A GOALS OF CARE CONVERSATION, SHE HAS NO CAR. HOSPITALIST MADE AWARE.
[2021-06-02 10:41] LABS: Band Neutrophils Percent 2 % (3-5); Lymphocytes Absolute Manual 2.4 X10*3/uL (1.2-4.9); Lymphocytes Percent Manual 5 % (20-40); Monocytes Absolute Manual 2.4 X10*3/uL (0.1-1.2); Monocytes Percent Manual 5 % (2-11); Neutrophils Absolute Manual 43.3 X10*3/uL (2.0-8.3); Neutrophils Percent Manual 88 % (45-73)
[2021-06-02 10:42] LABS: RBC Morphology NOTED; Target Cells 1+ (5-14) /OIF
[2021-06-02 10:43] LABS: Acanthocytes 1+ (0-2) /OIF; Platelet Estimate NORMAL (NORMAL); Platelet Morphology Comment NORMAL; Schistocytes 1+ (0-2) /OIF
[2021-06-02 10:44] LABS: Smudge Cells PRESENT
[2021-06-02] MEDS: Digoxin 0.125 MG TABLET PO (11:11)
--- NOTE | 2021-06-02 11:31 | PC.NURSE ---
Pt refused blood draws for infection workup
[2021-06-02 11:35] LABS: Alanine Aminotransferase 363 U/L (0-40); Albumin Level 3.7 g/dL (3.5-5.0); Alkaline Phosphatase 76 U/L (39-117); Aspartate Amino Transferase 125 U/L (5-37); Bilirubin Direct 1.6 mg/dL (0.0-0.5); Bilirubin Total 2.8 mg/dL (0.0-1.0); C Reactive Protein 2.05 mg/dL (< or = 0.50); Lactate Dehydrogenase 581 U/L (118-273); Total Protein 5.8 g/dL (6.5-8.0)
[2021-06-02 11:58] LABS: Procalcitonin 0.54 ng/mL
--- NOTE | 2021-06-02 13:26 | PHA.PROG ---
Admission Date/Time: May 22, 2021 15:17 Indication: Sepsis Weight in k.5 kg Adjusted body weight in K.28 KG [place] body weight in K.8 KG Obesity Dosing Indication % IBW: N/A Serum Creatinine - Last 168 Hours 05/27/21 05/28/21 05/29/21 05:00 05:40 05:32 Creatinine 1.01 1.21 1.17 05/30/21 05/31/21 06/01/21 04:13 05:07 05:32 Creatinine 1.28 1.18 1.49 H 06/02/21 05:45 Creatinine 1.16 Estimated CrCl and GFR - Last 168 Hours 05/27/21 05/28/21 05/29/21 05:00 05:40 05:32 Estim Creat Clear Calc 62.7 52.3 54.1 Estimated GFR > 60 60 > 60 05/30/21 05/31/21 06/01/21 04:13 05:07 05:32 Estim Creat Clear Calc 49.5 53.7 42.5 Estimated GFR 56 > 60 47 06/02/21 05:45 Estim Creat Clear Calc 54.6 Estimated GFR > 60 Vancomycin Loading Dose: 1500 mg Current Vancomycin Dosing Regimen: 1250 mg Q24H Date and Time for next Vancomycin Level to be drawn: 06/05 @ 1200 Vancomycin Trough 7.7 mcg/mL (10.0-20.0) L 05/24/21 16:33 Pharmacist Comments on Vancomycin Plan: Patient received two dose of Vancomycin > 7 days prior. Will load patient with Vancomycin 1500 mg on 06/02 @ 1400. The start maintenance dose 1250 mg Q24H on 06/03 @ 1400, Expected AUC 496 with a trough of 14.3 Trough to be drawn prior to 4th dose. Pharmacy will monitor renal function daily Angélica Wilkes PharmD Vancomycin dosing will take advantage of [employer] as a clinical decision support tool that uses Bayesian modeling to calculate individual patient's pharmacokinetic parameters and forecast the patient's drug concentration time course with the target goal AUC 24 range of 400 - 600 mg/L/hr.
[2021-06-02] MEDS: 0.9 % Sodium Chloride 1,000 ML 100 ML IVCONT (14:54)
[2021-06-02] MEDS: Piperacillin Sodium/Tazobactam 3.375 GM in 0.9 % Sodium Chloride 50 ML IV ×2 (15:01→19:54)
--- NOTE | 2021-06-02 15:18 | P.PNIM_ITS ---
Subjective Subjective Date of Service: 06/02/21 Interval History: Overnight SBP of 78 Had received 50 mg metoprolol in evening for rate control Pt given 50g albumin with improvement in BP to 90s Pt now refusing IV fluids; wants to be left alone. Cursing at me. Per psych has capacity to make own decisions. Review of Systems Review of Systems: Yes all other systems are reviewed and are negative Physical Exam Vital Signs: Vital Signs: Last Vital Signs Temp 97.2 F 06/02/21 12:00 Pulse 79 06/02/21 12:00 Resp 16 06/02/21 12:00 BP 95/58 L 06/02/21 12:00 Pulse Ox 93 06/02/21 12:00 BMI result Body Mass Index 22.2 Gen: in no acute distress HEENT: sclera anicteric, moist mucus membranes Neck: supple Lungs: clear to auscultation bilaterally Heart: irregularly irregular, no murmurs Abd: soft, non-tender, non-distended Ext: no edema Skin: warm/well-perfused Neuro: alert and oriented x3, no focal findings Psych: irritable, restricted affect Objective Data Active Medications Albuterol Sulfate (Albuterol Sulfate (0.083%) 2.5 Mg/3 Ml Vial.Neb) 2.5 mg INHALE Q2H PRN PRN Reason: Shortness of Breath/Wheezing Last Admin: 05/24/21 00:11 Dose: 2.5 mg Documented by: OSCAR Albuterol/Ipratropium (Albuterol/Iprat 2.5/0.5mg 3 Ml Ampul.Neb) 3 ml INHALE RQ4H WHILE AWAKE [facility] Last Admin: 06/02/21 11:46 Dose: Not Given Documented by: LARISA Non-Admin Reason: Patient Refused Clonidine HCl (Clonidine Hcl 0.1 Mg Tablet) 0.1 mg PO DAILY [facility]; Protocol Last Admin: 06/02/21 09:16 Dose: 0.1 mg Documented by: RAHEL Clotrimazole (Clotrimazole 10 Mg Diana) 10 mg MUCOUS MEM 5XD [facility] Last Admin: 06/02/21 15:03 Dose: Not Given Documented by: RAHEL Non-Admin Reason: Patient Refused Digoxin (Digoxin 0.125 Mg Tablet) 0.125 mg PO Q2D [facility] Last Admin: 06/02/21 11:11 Dose: 0.125 mg Documented by: RAHEL Escitalopram Oxalate (Escitalopram Oxalate 10 Mg Tablet) 10 mg PO DAILY [facility] Last Admin: 06/02/21 09:11 Dose: 10 mg Documented by: RAHEL Guaifenesin/Dextromethorphan (Guaifenesin Dm 100/10/5 Ml 5 Ml Syrup) 10 ml PO TID [facility] Last Admin: 06/02/21 09:12 Dose: 10 ml Documented by: RAHEL Sodium Chloride (Ns) 1,000 mls @ 100 mls/hr IVCONT .Q10H [facility] Last Admin: 06/02/21 14:54 Dose: 100 mls/hr Documented by: RAHEL Piperacillin Sod/Tazobactam (Sod 3.375 gm/ Sodium Chloride) 50 mls @ 100 mls/hr IV Q6H [facility] Last Admin: 06/02/21 15:01 Dose: 100 mls/hr Documented by: RAHEL Vancomycin HCl 1,250 mg/ (Sodium Chloride) 250 mls @ 166.667 mls/hr IV Q24H [facility] Vancomycin HCl 1,500 mg/ (Sodium Chloride) 500 mls @ 333.333 mls/hr IV ONCE ONE Stop: 06/02/21 15:29 Levetiracetam (Levetiracetam 500 Mg Tablet) 500 mg PO BID [facility] Last Admin: 06/02/21 09:11 Dose: 500 mg Documented by: RAHEL Metoprolol Succinate (Metoprolol Succinate Er 100 Mg Tab.Er.24h) 100 mg PO DAILY [facility]; Protocol Last Admin: 06/02/21 09:11 Dose: 100 mg Documented by: RAHEL Metoprolol Succinate (Metoprolol Succinate Er 50 Mg Tab.Er.24h) 50 mg PO DAILY@1700 [facility]; Protocol Last Admin: 06/01/21 17:27 Dose: 50 mg Documented by: SHORTY Multivitamins/Vitamin C (Multivitamin Tablet) 1 tab PO DAILY [facility] Last Admin: 06/02/21 09:11 Dose: 1 tab Documented by: RAHEL Nicotine (Nicotine 21 Mg Patch.Td24) 21 mg TRANSDERMA DAILY [facility] Last Admin: 06/02/21 09:16 Dose: Not Given Documented by: RAHEL Non-Admin Reason: Patient Refused Nicotine Polacrilex (Nicotine Polacrilex 2 Mg Gum) 2 mg BUCCAL Q1H PRN PRN Reason: Nicotine Cravings Ondansetron HCl (Ondansetron Hcl 4 Mg/2 Ml Vial) 4 mg IVPUSH Q8H PRN PRN Reason: Nausea and Vomiting Last Admin: 05/29/21 03:44 Dose: 4 mg Documented by: LISE Pantoprazole Sodium (Pantoprazole Sodium 40 Mg/10 Ml Vial) 40 mg IVPUSH BID@0630,1630 [facility] Pentoxifylline (Pentoxifylline Er 400 Mg Tablet.Er) 400 mg PO BID [facility] Last Admin: 06/02/21 09:11 Dose: 400 mg Documented by: RAHEL Prednisone (Prednisone 20 Mg Tablet) 20 mg PO DAILY [facility] Last Admin: 06/02/21 09:11 Dose: 20 mg Documented by: RAHEL Sodium Chloride (0.9 % Sodium Chloride Flush 3 Ml Syringe) 3 ml IVFLUSH QSHIFT [facility] Last Admin: 06/02/21 09:12 Dose: 3 ml Documented by: RAHEL Labs CBC & Chem 7: 06/02/21 08:38 06/02/21 05:45 Labs: Laboratory Results - last 24 hr 05/28/21 05/28/21 06/02/21 08:34 08:35 00:00 MCV MCH MCHC RDW Plt Count MPV Absolute Nucleated RBC Nucleated RBC % (auto) Neutrophils % (Manual) Band Neutrophils % Lymphocytes % (Manual) Monocytes % (Manual) Abs Neuts (Manual) Lymphocytes # (Manual) Monocytes # (Manual) Smudge Cells Platelet Estimate Plt Morphology Comment RBC Morphology Target Cells Acanthocytes (Spur) Schistocytes Anion Gap Estim Creat Clear Calc Estimated GFR Random Glucose Calcium Total Bilirubin Direct Bilirubin AST ALT Alkaline Phosphatase Lactate Dehydrogenase C-Reactive Protein Total Protein Albumin Procalcitonin Stool Occult Blood POSITIVE Digoxin Hep C Viral Load <15 Hep C Viral Load Log <1.18 HIV-1 RNA copies/mL <20 HIV-1 RNA logcopies/mL <1.30 06/02/21 06/02/21 06/02/21 05:45 05:45 06:09 MCV MCH MCHC RDW Plt Count MPV Absolute Nucleated RBC Nucleated RBC % (auto) Neutrophils % (Manual) Band Neutrophils % Lymphocytes % (Manual) Monocytes % (Manual) Abs Neuts (Manual) Lymphocytes # (Manual) Monocytes # (Manual) Smudge Cells Platelet Estimate Plt Morphology Comment RBC Morphology Target Cells Acanthocytes (Spur) Schistocytes Anion Gap 18 Estim Creat Clear Calc 54.6 Estimated GFR > 60 Random Glucose 108 D Calcium 8.8 Total Bilirubin 2.8 H Direct Bilirubin 1.6 H AST 125 H ALT 363 H Alkaline Phosphatase 76 D Lactate Dehydrogenase 581 H C-Reactive Protein 2.05 H Total Protein 5.8 L Albumin 3.7 Procalcitonin 0.54 Stool Occult Blood Digoxin 1.2 Hep C Viral Load Hep C Viral Load Log HIV-1 RNA copies/mL HIV-1 RNA logcopies/mL 06/02/21 08:38 MCV 81.3 MCH 28.5 MCHC 35.1 RDW 17.0 H Plt Count 180 D MPV 11.8 Absolute Nucleated RBC 0.000 Nucleated RBC % (auto) 0.0 Neutrophils % (Manual) 88 H Band Neutrophils % 2 L Lymphocytes % (Manual) 5 L Monocytes % (Manual) 5 Abs Neuts (Manual) 43.3 H Lymphocytes # (Manual) 2.4 Monocytes # (Manual) 2.4 H Smudge Cells PRESENT Platelet Estimate NORMAL Plt Morphology Comment NORMAL RBC Morphology NOTED Target Cells 1+ (5-14) Acanthocytes (Spur) 1+ (0-2) Schistocytes 1+ (0-2) Anion Gap Estim Creat Clear Calc Estimated GFR Random Glucose Calcium Total Bilirubin Direct Bilirubin AST ALT Alkaline Phosphatase Lactate Dehydrogenase C-Reactive Protein Total Protein Albumin Procalcitonin Stool Occult Blood Digoxin Hep C Viral Load Hep C Viral Load Log HIV-1 RNA copies/mL HIV-1 RNA logcopies/mL Impressions Chest X-Ray 06/02/21 12:00 IMPRESSION: No evidence for acute disease in the chest. Assessment and Plan (1) MDD (major depressive disorder), recurrent episode, moderate: Status: Acute (2) Opioid use disorder, moderate, dependence: Status: Acute (3) Cardiomyopathy: Status: Acute (4) CAD (coronary artery disease): Status: Acute (5) Pneumonitis: Status: Acute (6) Pneumonia: Status: Acute (7) Atrial flutter with rapid ventricular response: Status: Acute (8) Atherosclerotic cardiovascular disease: Status: Acute (9) Elevated liver enzymes: Status: Acute (10) Acute heart failure: Status: Acute (11) Hypoxia: Status: Acute (12) Community acquired pneumonia: Status: Acute (13) Acute exacerbation of chronic obstructive airways disease: Status: Acute (14) Sepsis: Status: Acute Assessment and Plan: hospital d#12 66yo M with COPD not on home O2, CAD s/p CABG x2, combined systolic/diastolic HF, AF on apixaban, CVA without residual deficit, PAD, tobacco abuse [1.5 ppd], hx heroin + cocaine abuse, seizure disorder, possible VF arrest with status e pilepticus back in Jan 2021 presented to his PCP's office with dyspnea and was noted to be hypoxic ,arrived here hypotensive and hypoxic but fluid-responsive admitted for sepsis from multifocal PNA # hypotension - doubt due to GI bleed. ?sepsis/infection ?metoprolol pm dose- d/c'ed # leukocytosis - WBCs up to 48. seems out of proportion for steroid-induced demargination. PCT 0.51. will treat empirically for sepsis with vanco/pip-shameka pending workup with CXR, UA/UM/BCx # FOBT+ - GI consulted; conitnue IV PPI; doubt causing hypotension. pt refusing any other intervention. # acute hypoxic respiratory failure - wean O2 as tolerated # PNA- CAP?? atypical?? amiodarone/heroin drug-induced lung injury?? allergic- type pneumonitis? COPD exacerbation - finished 7 day course of ceftriaxone + doxycycline and infiltrates resolved on CXR - urine antigens for pneumococcus negative; Legionella pending - on prednisone 20 mg daily, will wean steroids gradually - continue nebs - d/c'ed amiodarone - pt has very high IgE level [1827, ULN is 114] and will need outpt Pulm f/u for further allergy testing # acute/chronic HFrEF # cardiomyopathy, ischemic + drug-related - appears euvolemic, status post IV Lasix , diuretics discontinued since creatinine trending up, was given albumin overnight, watch for fluid overload - continue metoprolol # hypokalemia - repleted # atrial flutter with variable conduction - continue metoprolol + digoxin - apixaban held due to elevated LFTs + INR, resume when improved, will follow digoxin level # transaminasemia/acute liver injury - GI consulted - LFTs significantly elevated,? related to drug toxicity versus passive congestion versus ischemic hepatitis.? improving - acute HAV IgM negative - abd Doppler normal - HBV/HCV/HIV viral loads all negative - unlikely due to chronic use of statin or amiodarone per GI # thrush - clotrimazole troches.? HIV negative ? # history of peripheral arterial disease/coronary artery disease status post CABG - continue metoprolol succinate + pentoxyfilline; no aspirin or statin due to liver toxicity and elevated INR # seizure disorder - continue levetiracteam, take seizure precautions # mood disorder - seen by Psychiatry patient diagnosed to have no suicidal or homicidal ideation, has history of depression; discontinued sertraline due to liver impairment and patient placed on escitalopram 10 mg daily. - competent per Psychiatry - will discuss goals of care with as pt is not really engaging with me; has threatened to leave AMA # opioid use disorder history of cocaine abuse - was on Suboxone in past but did not tolerate; drug toxicology positive for fentanyl, patient admits use of heroin - seen by Recovery Team; no withdrawal symptoms noted # tobacco abuse - on nicotine patch, counseling done # VTE ppx - compression boots # dispo - eventual plan for [facility] Quality Stroke Does the patient have a stroke diagnosis?: No VTE Prior VTE?: No VTE Risk Level:: Medical - moderate - high VTE Device Contraindication: N/A - Device Ordered VTE Drug Contraindication: N/A - Med Ordered
[2021-06-02] MEDS: vancomycin HCL 1,500 MG in 0.9 % Sodium Chloride 500 ML 333.33 MG IV (15:26)
[2021-06-02] MEDS: Pantoprazole Sodium 40 MG/10 ML VIAL IVPUSH (15:26)
--- NOTE | 2021-06-02 18:15 | PC.NURSE ---
unable to collect sample for U/A, pt is incontinent and refusing any care.
[2021-06-03] VITALS (7 sets, daily range): BP systolic 99–138; BP diastolic 52–72; PULSE 63–87; RESP 15–20; TEMP 36.2–36.8; O2SAT 92–95
[2021-06-03] MEDS: Piperacillin Sodium/Tazobactam 3.375 GM in 0.9 % Sodium Chloride 50 ML IV ×2 (02:04→09:24)
[2021-06-03] MEDS: Pantoprazole Sodium 40 MG/10 ML VIAL IVPUSH ×2 (06:04→17:21)
[2021-06-03] MEDS: 0.9 % Sodium Chloride Flush 3 ML SYRINGE IVFLUSH ×2 (09:25→17:21)
[2021-06-03] MEDS: cloNIDine HCL 0.1 MG TABLET PO (09:25)
[2021-06-03] MEDS: Escitalopram Oxalate 10 MG TABLET PO (09:26)
[2021-06-03] MEDS: levETIRAcetam 500 MG TABLET PO ×2 (09:26→20:56)
[2021-06-03] MEDS: Pentoxifylline ER 400 MG TABLET.ER PO ×2 (09:26→20:56)
[2021-06-03] MEDS: Multivitamin TABLET 1 TAB PO (09:26)
[2021-06-03] MEDS: guaiFENesin DM 100/10/5 ML 5 ML SYRUP 10 ML PO ×2 (09:26→20:56)
[2021-06-03] MEDS: Metoprolol Succinate ER 100 MG TAB.ER.24H PO (09:26)
[2021-06-03] MEDS: predniSONE 20 MG TABLET PO (09:26)
--- NOTE | 2021-06-03 11:36 | HO.PM.IMPN ---
Subjective Subjective Date of Service: 06/03/21 Interval History: BP improved and ventricular rate controlled Still periodically refusing medications + infusions + labs Denies any pain or respiratory symptoms Wants to be left alone Review of Systems Review of Systems: Yes all other systems are reviewed and are negative Physical Exam Vital Signs: Vital Signs: Last Vital Signs Temp 97.1 F 06/03/21 08:00 Pulse 87 06/03/21 08:00 Resp 20 06/03/21 08:00 BP 138/72 06/03/21 08:00 Pulse Ox 93 06/03/21 08:00 BMI result Body Mass Index 22.2 Gen: in no acute distress HEENT: sclera anicteric, moist mucus membranes Neck: supple Lungs: clear to auscultation bilaterally Heart: irregularly irregular, no murmurs Abd: soft, non-tender, non-distended Ext: no edema Skin: warm/well-perfused Neuro: alert and oriented x3, no focal findings Psych: irritable, restricted affect Objective Data Active Medications Albuterol Sulfate (Albuterol Sulfate (0.083%) 2.5 Mg/3 Ml Vial.Neb) 2.5 mg INHALE Q2H PRN PRN Reason: Shortness of Breath/Wheezing Last Admin: 05/24/21 00:11 Dose: 2.5 mg Documented by: OSCAR Albuterol/Ipratropium (Albuterol/Iprat 2.5/0.5mg 3 Ml Ampul.Neb) 3 ml INHALE RQ4H WHILE AWAKE [facility] Last Admin: 06/03/21 11:12 Dose: Not Given Documented by: MIKY Non-Admin Reason: Patient Refused Clonidine HCl (Clonidine Hcl 0.1 Mg Tablet) 0.1 mg PO DAILY [facility]; Protocol Last Admin: 06/03/21 09:25 Dose: 0.1 mg Documented by: RAHEL Clotrimazole (Clotrimazole 10 Mg Diana) 10 mg MUCOUS MEM 5XD [facility] Last Admin: 06/03/21 05:59 Dose: Not Given Documented by: MARITZARISGloria Non-Admin Reason: Patient Refused Digoxin (Digoxin 0.125 Mg Tablet) 0.125 mg PO Q2D [facility] Last Admin: 06/02/21 11:11 Dose: 0.125 mg Documented by: RAHEL Escitalopram Oxalate (Escitalopram Oxalate 10 Mg Tablet) 10 mg PO DAILY [facility] Last Admin: 06/03/21 09:26 Dose: 10 mg Documented by: RAHEL Guaifenesin/Dextromethorphan (Guaifenesin Dm 100/10/5 Ml 5 Ml Syrup) 10 ml PO TID [facility] Last Admin: 06/03/21 09:26 Dose: 10 ml Documented by: RAHEL Sodium Chloride (Ns) 1,000 mls @ 100 mls/hr IVCONT .Q10H [facility] Last Admin: 06/03/21 02:30 Dose: Not Given Documented by: LSIE Non-Admin Reason: IV Running Piperacillin Sod/Tazobactam (Sod 3.375 gm/ Sodium Chloride) 50 mls @ 100 mls/hr IV Q6H [facility] Last Infusion: 06/03/21 10:09 Dose: 0 mls/hr Documented by: RAHEL Vancomycin HCl 1,250 mg/ (Sodium Chloride) 250 mls @ 166.667 mls/hr IV Q24H [facility] Levetiracetam (Levetiracetam 500 Mg Tablet) 500 mg PO BID [facility] Last Admin: 06/03/21 09:26 Dose: 500 mg Documented by: RAHEL Metoprolol Succinate (Metoprolol Succinate Er 100 Mg Tab.Er.24h) 100 mg PO DAILY [facility]; Protocol Last Admin: 06/03/21 09:26 Dose: 100 mg Documented by: RAHEL Multivitamins/Vitamin C (Multivitamin Tablet) 1 tab PO DAILY [facility] Last Admin: 06/03/21 09:26 Dose: 1 tab Documented by: RAHEL Nicotine (Nicotine 21 Mg Patch.Td24) 21 mg TRANSDERMA DAILY [facility] Last Admin: 06/03/21 09:27 Dose: Not Given Documented by: RAHEL Non-Admin Reason: Patient Refused Nicotine Polacrilex (Nicotine Polacrilex 2 Mg Gum) 2 mg BUCCAL Q1H PRN PRN Reason: Nicotine Cravings Ondansetron HCl (Ondansetron Hcl 4 Mg/2 Ml Vial) 4 mg IVPUSH Q8H PRN PRN Reason: Nausea and Vomiting Last Admin: 05/29/21 03:44 Dose: 4 mg Documented by: LISE Pantoprazole Sodium (Pantoprazole Sodium 40 Mg/10 Ml Vial) 40 mg IVPUSH BID@0630,1630 [facility] Last Admin: 06/03/21 06:04 Dose: 40 mg Documented by: LISE Pentoxifylline (Pentoxifylline Er 400 Mg Tablet.Er) 400 mg PO BID [facility] Last Admin: 06/03/21 09:26 Dose: 400 mg Documented by: RAHEL Prednisone (Prednisone 20 Mg Tablet) 20 mg PO DAILY [facility] Last Admin: 06/03/21 09:26 Dose: 20 mg Documented by: RAHEL Sodium Chloride (0.9 % Sodium Chloride Flush 3 Ml Syringe) 3 ml IVFLUSH QSHIFT [facility] Last Admin: 06/03/21 09:25 Dose: 3 ml Documented by: RAHEL Labs CBC & Chem 7: 06/02/21 08:38 06/02/21 05:45 Labs: Laboratory Results - last 24 hr 06/02/21 06:09 Procalcitonin 0.54 Impressions Chest X-Ray 06/02/21 12:00 IMPRESSION: No evidence for acute disease in the chest. Assessment and Plan (1) MDD (major depressive disorder), recurrent episode, moderate: Status: Acute (2) Opioid use disorder, moderate, dependence: Status: Acute (3) Cardiomyopathy: Status: Acute (4) CAD (coronary artery disease): Status: Acute (5) Pneumonitis: Status: Acute (6) Pneumonia: Status: Acute (7) Atrial flutter with rapid ventricular response: Status: Acute (8) Atherosclerotic cardiovascular disease: Status: Acute (9) Elevated liver enzymes: Status: Acute (10) Acute heart failure: Status: Acute (11) Hypoxia: Status: Acute (12) Community acquired pneumonia: Status: Acute (13) Acute exacerbation of chronic obstructive airways disease: Status: Acute (14) Sepsis: Status: Acute Assessment and Plan: hospital d#13 66yo M with COPD not on home O2, CAD s/p CABG x2, combined systolic/diastolic HF, AF on apixaban, CVA without residual deficit, PAD, tobacco abuse [1.5 ppd], hx heroin + cocaine abuse, seizure disorder, possible VF arrest with status epilepticus back in Jan 2021 presented to his PCP's office with dyspnea and was noted to be hypoxic ,arrived here hypotensive and hypoxic but fluid-responsive admitted for sepsis from multifocal PNA, treated fully with 7 days of antibiotics developed hypotension and leukocytosis but then started refusing treatments and labs # hypotension, resolved - doubt due to GI bleed. ?sepsis/infection ?metoprolol pm dose started on 06/01- d/c'ed and BP has improved # leukocytosis - WBCs up to 48 yesterday, pt refused repeat draw today. seems out of proportion for steroid-induced demargination. PCT 0.51. will treat empirically for sepsis with vanco/pip-shameka. pt refused blood cultures and urinalysis. CXR clear. Cdiff toxin pending. repeat CBCd in am and have pathology review smear. # FOBT+ - GI consulted; conitnue IV PPI; doubt causing hypotension. pt refusing any other intervention. # acute hypoxic respiratory failure - wean O2 as tolerated- on 3L via NC at this time # PNA- CAP?? atypical?? amiodarone/heroin drug-induced lung injury?? allergic-type pneumonitis? COPD exacerbation - finished 7 day course of ceftriaxone + doxycycline and infiltrates completely resolved on CXR - urine antigens for pneumococcus negative; Legionella pending - on prednisone 20 mg daily, will wean steroids gradually - continue nebs - d/c'ed amiodarone - pt has very high IgE level [1827, ULN is 114] and will need outpt Pulm f/u for further allergy testing # acute/chronic HFrEF # cardiomyopathy, ischemic + drug-related - appears euvolemic, status post IV Lasix , diuretics discontinued since creatinine trending up, was given albumin overnight, watch for fluid overload - continue metoprolol # hypokalemia - repleted # atrial flutter with variable conduction - continue metoprolol + digoxin - apixaban held due to elevated LFTs + INR, resume when improved, will follow digoxin level # transaminasemia/acute liver injury - GI consulted - LFTs significantly elevated,? related to drug toxicity versus passive congestion versus ischemic hepatitis.? improving - acute HAV IgM negative - abd Doppler normal - HBV/HCV/HIV viral loads all negative - unlikely due to chronic use of statin or amiodarone per GI # thrush - clotrimazole troches.? HIV negative ? # history of peripheral arterial disease/coronary artery disease status post CABG - continue metoprolol succinate + pentoxyfilline; no aspirin or statin due to liver toxicity and elevated INR # seizure disorder - continue levetiracteam, take seizure precautions # mood disorder - seen by Psychiatry patient diagnosed to have no suicidal or homicidal ideation, has history of depression; discontinued sertraline due to liver impairment and patient placed on escitalopram 10 mg daily. - competent per Psychiatry - pt also refusing to speak to Dinorah by phone. per my discussion with her, his intransigence is fairly close to baseline for him and he has historically signed out AMA from here and from [facility]. he states he wants to go home but is not actively trying to leave AMA at this point, just refusing much of his care. # opioid use disorder history of cocaine abuse - was on Suboxone in past but did not tolerate; drug toxicology positive for fentanyl, patient admits use of heroin - seen by Recovery Team; no withdrawal symptoms noted # tobacco abuse - on nicotine patch, counseling done # VTE ppx - compression boots # dispo - plan eventual home with [facility]NA but I wonder whether home hospice is an option. My attempts at engaging him in a conversation about this, however, were unhelpful- he just tells me to go away Quality Stroke Does the patient have a stroke diagnosis?: No VTE Prior VTE?: No VTE Risk Level:: Medical - moderate - high VTE Device Contraindication: N/A - Device Ordered VTE Drug Contraindication: N/A - Med Ordered
[2021-06-03 14:50] LABS: CDiff Gene PCR NEGATIVE (Negative)
--- NOTE | 2021-06-03 19:48 | PC.NURSE ---
patient still refusing care today. He refused the blood draws three times. He has continued to refuse his medications and IV fluids. Doc notified.
[2021-06-04] MEDS: 0.9 % Sodium Chloride Flush 3 ML SYRINGE IVFLUSH ×2 (00:17→07:39)
[2021-06-04] MEDS: Piperacillin Sodium/Tazobactam 3.375 GM in 0.9 % Sodium Chloride 50 ML IV ×2 (02:18→07:39)
[2021-06-04 03:24] VITALS: BP 139/81; PULSE 68; RESP 18; TEMP 36.2; O2SAT 94
[2021-06-04] MEDS: Pantoprazole Sodium 40 MG/10 ML VIAL IVPUSH (05:47)
[2021-06-04 07:09] LABS: Baso%MD 0.2 %; Eos%MD 0.2 %; Hematocrit 42.1 % (42.0-52.0); Hemoglobin 14.4 g/dl (14.0-18.0); IG%MD 1.5 %; Lymph%MD 5.5 %; Mean Corpuscular HGB Conc 34.2 g/dl (31.0-36.0); Mean Corpuscular Hemoglobin 29.3 pg (27.0-33.0); Mean Corpuscular Volume 85.6 fL (80.0-98.0); Mean Platelet Volume 11.6 fL (9.4-12.4); Neut%MD 83.6 %; Platelet Count 184 X10*3/uL (160-400); Red Blood Count 4.92 X10*6/uL (4.60-5.80)
[2021-06-04] MEDS: Pentoxifylline ER 400 MG TABLET.ER PO ×2 (07:38→20:26)
[2021-06-04] MEDS: Metoprolol Succinate ER 100 MG TAB.ER.24H PO (07:38)
[2021-06-04] MEDS: predniSONE 20 MG TABLET PO (07:38)
[2021-06-04] MEDS: levETIRAcetam 500 MG TABLET PO ×2 (07:38→20:26)
[2021-06-04] MEDS: guaiFENesin DM 100/10/5 ML 5 ML SYRUP 10 ML PO ×3 (07:38→20:26)
[2021-06-04] MEDS: Escitalopram Oxalate 10 MG TABLET PO (07:38)
[2021-06-04] MEDS: Multivitamin TABLET 1 TAB PO (07:38)
[2021-06-04 07:39] LABS: White Blood Count 35.1 X10*3/uL (4.8-10.8)
[2021-06-04] MEDS: cloNIDine HCL 0.1 MG TABLET PO (07:39)
[2021-06-04 08:08] LABS: Lymphocytes Absolute Manual 1.1 X10*3/uL (1.2-4.9); Lymphocytes Percent Manual 3 % (20-40); Monocytes Absolute Manual 2.1 X10*3/uL (0.1-1.2); Monocytes Percent Manual 6 % (2-11); Neutrophils Percent Manual 91 % (45-73)
[2021-06-04 08:09] LABS: RBC Morphology NOTED; Target Cells 2+ (15-30) /OIF
[2021-06-04 08:10] LABS: Platelet Estimate NORMAL (NORMAL); Platelet Morphology Comment NORMAL; Polychromasia 1+ (0-2) /OIF
[2021-06-04] MEDS: Albuterol/Iprat 2.5/0.5MG 3 ML AMPUL.NEB INHALE (08:10)
[2021-06-04 08:21] LABS: Digoxin 0.9 ng/mL (0.8-2.0)
[2021-06-04 08:51] LABS: Band Neutrophils Percent 0 % (3-5); Neutrophils Absolute Manual 31.9 X10*3/uL (2.0-8.3)
[2021-06-04] MEDS: Potassium Chloride ER 20 MEQ TAB.ER.PRT PO (09:26)
[2021-06-04] MEDS: predniSONE 10 MG TABLET PO (09:26)
[2021-06-04] MEDS: Digoxin 0.125 MG TABLET PO (09:27)
--- NOTE | 2021-06-04 11:51 | MHC.CM.PN ---
Per ROUNDS discussion, Patient is not yet medically cleared for dc (IV Protonix, IV Vanco, IV Zosyn);Home is the goal for dc and CM will follow for possible need to adjust the dc plan.
--- NOTE | 2021-06-04 11:51 | PM.PNCARD ---
Subjective Subjective Date of Service: 06/04/21 <CARLY Smyth - Last Filed: 06/04/21 12:36> 06/04/21 <Gustavo Cox MD - Last Filed: 06/04/21 15:07> Principal diagnosis: sob, BNP elevated, CMP, aflutter, PNA <CARLY Smyth - Last Filed: 06/04/21 12:36> Interval history: Cardiology follow up for HF, CMP, atrial flutter. Seen at 0945. Today he reports feeling fine and wants to go home. Denies shortness of breath, cough, PND, orthopnea or edema. No chest pains, palpitation, dizziness. Repositions self easily in bed. <CARLY Smyth - Last Filed: 06/04/21 12:36> Review of Systems Review of Systems as above <CARLY Smyth - Last Filed: 06/04/21 12:36> Physical Exam Vital Signs: Last Vital Signs Temp 97.2 F 06/04/21 03:24 Pulse 68 06/04/21 03:24 Resp 18 06/04/21 03:24 BP 139/81 06/04/21 03:24 Pulse Ox 94 06/04/21 03:24 BMI result Body Mass Index 22.2 <CARLY Smyth Last Filed: 06/04/21 12:36> Const General: cooperative, no acute distress, alert and awake <CARLY Smyth - Last Filed: 06/04/21 12:36> Nutritional Appearance: thin <CARLY Smyth Last Filed: 06/04/21 12:36> Orientation/consciousness: patient oriented x3 <CARLY Smyth Last Filed: 06/04/21 12:36> Neck Neck: Yes normal visual inspection and Yes no JVD <CARLY Smyth Last Filed: 06/04/21 12:36> Resp Effort & Inspection: normal respiratory effort, able to speak in complete sentences and not labored <CARLY Smyth - Last Filed: 06/04/21 12:36> Auscultation: clear to auscultation bilaterally, no rales, no rhonchi and wheezes (Few expiratory wheezes noted) <CALOS SmythC - Last Filed: 06/04/21 12:36> Cardio Palpation: normal PMI <CALOS Smyth - Last Filed: 06/04/21 12:36> Rate: regular rate <Kristen Quintero NP - Last Filed: 06/04/21 12:36> Rhythm: abnormal rhythm regularly irregular <Kristen Quintero NP - Last Filed: 06/04/21 12:36> Heart sounds: S1 normal heart sound present and S2 normal heart sound present <Kristen Quintero NP - Last Filed: 06/04/21 12:36> Peripheral pulses: Peripheral pulses 2+ throughout <Kristen Quintero NP - Last Filed: 06/04/21 12:36> GI Inspection: Yes normal to inspection <CALOS Smyth - Last Filed: 06/04/21 12:36> Neuro General: patient oriented x3 <Kristen Quintero NP - Last Filed: 06/04/21 12:36> Extrem General: Yes normal to inspection and No edema <Kristen Quintero NP - Last Filed: 06/04/21 12:36> Objective Labs and Meds Result diagrams: : 06/04/21 05:27 06/04/21 14:10 <Kristen Quintero NP - Last Filed: 06/04/21 12:36> Lab results: Laboratory Results - last 24 hr 06/03/21 06/04/21 06/04/21 09:00 05:27 05:27 WBC 35.1 H* RBC 4.92 Hgb 14.4 Hct 42.1 MCV 85.6 MCH 29.3 MCHC 34.2 RDW 19.0 H Plt Count 184 MPV 11.6 Absolute Nucleated RBC 0.000 Nucleated RBC % (auto) 0.0 Neutrophils % (Manual) 91 H Band Neutrophils % 0 L Lymphocytes % (Manual) 3 L Monocytes % (Manual) 6 Abs Neuts (Manual) 31.9 H Lymphocytes # (Manual) 1.1 L Monocytes # (Manual) 2.1 H Platelet Estimate NORMAL Plt Morphology Comment NORMAL RBC Morphology NOTED Polychromasia 1+ (0-2) Target Cells 2+ (15-30) Digoxin 0.9 C. difficile Tox B Gene NEGATIVE <Kristen Gloria CARLY Quintero - Last Filed: 06/04/21 12:36> Progress Note: A&P Assessment and plan (1) Atrial flutter with rapid ventricular response: Status: Acute <Kristen Gloria CARLY Quintero - Last Filed: 06/04/21 12:36> Assessment and Plan: Reported hx of PAF. This admit noted to have atrial flutter, variable rates. Home Amiodarone stopped this admit due to elevated LFTs.? He is on Metoprolol and has been started on EOD Digoxin for rate control. Echo this admit showed EF 25%,? inferoseptal, mid inferior and mid anteroseptal segments akinetic - WMA seen on 01/2021 echo. EF at that time, 40-45%. Drop in EF could be related to atrial flutter with elevated rates. Tele currently showing rates are controlled 60- 80s atrial flutter. If rates become more elevated, Metropolol dose can be further titrated. Unable to use Diltiazem due to reduced EF. ? Unable to do CVR at this time, as anticoagulation has been on hold due to elevated LFTs.? LFTs have improved during this admit,?currently AST 125, ALT 363. Noted to have Heme + stool on 06/02/21/ H/H seem stable Recommend Restart of Eliquis at this time, unless GI recommends otherwise. Continue Metoprolol and Digoxin. Will need Digoxin blood level done. Ongoing tele monitoring while inpt. We will sign off. Once discharged, he will follow with his own pipeline operator - Dr Holden. <Kristen Quintero, CARLY - Last Filed: 06/04/21 12:36> Reported hx of PAF. This admit noted to have atrial flutter, variable rates. Home Amiodarone stopped this admit due to elevated LFTs.? He is on Metoprolol and has been started on EOD Digoxin for rate control. Echo this admit showed EF 25%,? inferoseptal, mid inferior and mid anteroseptal segments akinetic - WMA seen on 01/2021 echo. EF at that time, 40-45%. Drop in EF could be related to atrial flutter with elevated rates. Tele currently showing rates are controlled 60- 80s atrial flutter. If rates become more elevated, Metropolol dose can be further titrated. Unable to use Diltiazem due to reduced EF. ? Unable to do CVR at this time, as anticoagulation has been on hold due to elevated LFTs.? LFTs have improved during this admit,?currently AST 125, ALT 363. Noted to have Heme + stool on 06/02/21/ H/H seem stable Recommend Restart of Eliquis at this time, unless GI recommends otherwise. Continue Metoprolol and Digoxin. Will need Digoxin blood level done. Ongoing tele monitoring while inpt. We will sign off. Once discharged, he will follow with his own pipeline operator - Dr Holden. Patient seen and examined. Case discussed with Kristen Quintero. Patient very emotional and insisting that he wants to go home. Has been doing well from cardiac perspective. Has remained in atrial flutter, persistent but rate is much better controlled. Has prior history of paroxysmal atrial fibrillation. Currently off amiodarone due to elevated LFTs of unclear etiology. His diltiazem was also discontinued due to cardiomyopathy and low EF. Currently on metoprolol and digoxin for rate control. Continue to pursue rate control. His Eliquis was also held on admission due to elevated LFT, unclear reasons. Eliquis can be restarted today. Follow up with his own pipeline operator as outpatient for rate control versus rhythm control strategy discussion and potential ablation versus cardioversion. He understands and agrees. <Gustavo Cox MD - Last Filed: 06/04/21 15:07> (2) Cardiomyopathy: Status: Acute <CARLY Smyth - Last Filed: 06/04/21 12:36> Assessment and Plan: Hx of CAD, prior MT, CABG, CMP. EF had been in 40s in Jan and now 25%. Troponins normal this admit. No report of anginal symptoms. He does have hx of heroin use, drug abuse. Notes indicate he did have a witnessed cardiac arrest Jan? 2020, presumedly related to heroin overdose , per his cardiologists note. He was started on Amiodarone around that time and it was stopped this admit due to elevated LFTs. Tele reviewed and no NSVT seen. Will continue with Metoprolol and digoxin at present. Heart rate is currently controlled. BP 139/81. Will start on Diovan 40mg bid along with his Metoprolol xl for neurohormonal modulation. Cr 1.16. Will need BMP tomorrow. [place] [facility] [place] Outpt note from him, 03/27/21 reviewed and indicates that outpt ICD would be considered after a repeat echo. <CARLY Smyth - Last Filed: 06/04/21 12:36> Hx of CAD, prior MT, CABG, CMP. EF had been in 40s in Jan and now 25%. Troponins normal this admit. No report of anginal symptoms. He does have hx of heroin use, drug abuse. Notes indicate he did have a witnessed cardiac arrest 2020, presumedly related to heroin overdose , per his cardiologists note. He was started on Amiodarone around that time and it was stopped this admit due to elevated LFTs. Tele reviewed and no NSVT seen. Will continue with Metoprolol and digoxin at present. Heart rate is currently controlled. BP 139/81. Will start on Diovan 40mg bid along with his Metoprolol xl for neurohormonal modulation. Cr 1.16. Will need BMP tomorrow. He follows with Dr Hold[place] [facility]. Outpt note from him, 03/27/21 reviewed and indicates that outpt ICD would be considered after a repeat echo. Patient developed worsening LV ejection fraction with underlying wall motion abnormality. Worsening LV systolic function could be tachycardia mediated. However ischemia needs to be ruled out. Should pursue outpatient ischemic workup. Creatinine is improved. Continue metoprolol for neurohormonal modulation. Currently not in heart failure. Signs and symptoms of heart failure were discussed. Currently off Lasix due to acutely elevated creatinine. Also not on lisinopril/angiotensin receptor blockers due to elevated creatinine. Can be addressed as outpatient after following up with his creatinine. Heart failure management as below. <Gustavo Cox MD - Last Filed: 06/04/21 15:07> (3) CHF (congestive heart failure): Status: Acute <CARLY Smyth - Last Filed: 06/04/21 12:36> Assessment and Plan: Treated for atypical PNA and acute systolic HF this admit. Was diuresed with IV Lasix with fluid balance neg 4.3 liters earlier this admit. Lasix had been changed to PO then stopped due to risk in Cr, BUN, drop in Chloride, NA. He then required IV fluid bolus for rehydration. At present remains off Lasix. Remains on IV antibiotics, was on steroids. WBC elevated at 35 which was thought to be related to steroid use.?CXR from 06/02 shows NAD. Pt reports breathing is normal. He appears Euvolemic on exam. <CALOS SmythC - Last Filed: 06/04/21 12:36> (4) Pneumonia: Status: Acute <CARLY Smyth - Last Filed: 06/04/21 12:36> Assessment and Plan: resolved <CARLY Smyth - Last Filed: 06/04/21 12:36> (5) CAD (coronary artery disease): Status: Acute <CALOS SmythC - Last Filed: 06/04/21 12:36> Assessment and Plan: as above <CALOS SmythC - Last Filed: 06/04/21 12:36> Fall Risk Details Current Medications: Current Medications Albuterol Sulfate (Albuterol Sulfate (0.083%) 2.5 Mg/3 Ml Vial.Neb) 2.5 mg INHALE Q2H PRN PRN Reason: Shortness of Breath/Wheezing Last Admin: 05/24/21 00:11 Dose: 2.5 mg Documented by: Albuterol/Ipratropium (Albuterol/Iprat 2.5/0.5mg 3 Ml Ampul.Neb) 3 ml INHALE RQ4H WHILE AWAKE [facility] Last Admin: 06/04/21 08:10 Dose: 3 ml Documented by: Clotrimazole (Clotrimazole 10 Mg Diana) 10 mg MUCOUS MEM 5XD [facility] Last Admin: 06/04/21 09:22 Dose: Not Given Documented by: Digoxin (Digoxin 0.125 Mg Tablet) 0.125 mg PO Q2D [facility] Last Admin: 06/04/21 09:27 Dose: 0.125 mg Documented by: Escitalopram Oxalate (Escitalopram Oxalate 10 Mg Tablet) 10 mg PO DAILY [facility] Last Admin: 06/04/21 07:38 Dose: 10 mg Documented by: Guaifenesin/Dextromethorphan (Guaifenesin Dm 100/10/5 Ml 5 Ml Syrup) 10 ml PO TID [facility] Last Admin: 06/04/21 07:38 Dose: 10 ml Documented by: Piperacillin Sod/Tazobactam (Sod 3.375 gm/ Sodium Chloride) 50 mls @ 100 mls/hr IV Q6H [facility] Last Infusion: 06/04/21 09:09 Dose: Infused Documented by: Vancomycin HCl 1,250 mg/ (Sodium Chloride) 250 mls @ 166.667 mls/hr IV Q24H [facility] Last Admin: 06/03/21 14:11 Dose: Not Given Documented by: Levetiracetam (Levetiracetam 500 Mg Tablet) 500 mg PO BID [facility] Last Admin: 06/04/21 07:38 Dose: 500 mg Documented by: Metoprolol Succinate (Metoprolol Succinate Er 100 Mg Tab.Er.24h) 100 mg PO DAILY [facility]; Protocol Last Admin: 06/04/21 07:38 Dose: 100 mg Documented by: Multivitamins/Vitamin C (Multivitamin Tablet) 1 tab PO DAILY [facility] Last Admin: 06/04/21 07:38 Dose: 1 tab Documented by: Nicotine (Nicotine 21 Mg Patch.Td24) 21 mg TRANSDERMA DAILY [facility] Last Admin: 06/04/21 07:41 Dose: Not Given Documented by: Nicotine Polacrilex (Nicotine Polacrilex 2 Mg Gum) 2 mg BUCCAL Q1H PRN PRN Reason: Nicotine Cravings Omeprazole (Omeprazole 40 Mg Capsule.Dr) 40 mg PO DAILY@0630 [facility] Ondansetron HCl (Ondansetron Hcl 4 Mg/2 Ml Vial) 4 mg IVPUSH Q8H PRN PRN Reason: Nausea and Vomiting Last Admin: 05/29/21 03:44 Dose: 4 mg Documented by: Pentoxifylline (Pentoxifylline Er 400 Mg Tablet.Er) 400 mg PO BID [facility] Last Admin: 06/04/21 07:38 Dose: 400 mg Documented by: Prednisone (Prednisone 10 Mg Tablet) 10 mg PO DAILY [facility] Last Admin: 06/04/21 09:26 Dose: 10 mg Documented by: Sodium Chloride (0.9 % Sodium Chloride Flush 3 Ml Syringe) 3 ml IVFLUSH QSHIFT CARLIE Last Admin: 06/04/21 07:39 Dose: 3 ml Documented by: <CARLY Smyth - Last Filed: 06/04/21 12:36> Time Spent With Patient Time: Total time spent is greater than 50% in coordination of care (as documented) at patient's floor/unit and/or counseling patient: <CARLY Smyth Last Filed: 06/04/21 12:36> Time with patient: 25 - 35 minutes <CARLY Smyth Last Filed: 06/04/21 12:36> Progress Note: Quality Stroke Does the patient have a stroke diagnosis?: No <CARLY Smyth Last Filed: 06/04/21 12:36> Procedures Date of Service Date of Service: 06/04/21 <CARLY Smyth - Last Filed: 06/04/21 12:36>
--- NOTE | 2021-06-04 12:09 | MHC.CLN ---
F/U PATIENT IS DAY 11 WITH LIMITED PO INTAKE. ZERO INTAKE MOST MEAL. WILL DRINK WATER. DIET IS REGULAR. DISLIKES ENSURE, DOES NOT WANT, AND DISCONTINUED 06/04. MD AWARE OF POOR INTAKE. PER PSYCH CONSULT 06/02, PATIENT HAS CAPACITY, EDUCATED, AND UNDERSTANDS THE RISK OF NOT FOLLOWING MEDICAL ADVICE. PATIENT ASKED FOR CHOCOLATE ICE CREAM WHILE VISITING WITH THIS MATERIAL CLERK. GSR AWARE OF REQUEST. PATIENT IS NOT MEETING NUTRITION NEEDS. FOLLOW PO AND NEED FOR ALTERNATE NUTRITION.
--- NOTE | 2021-06-04 13:03 | P.PNIM_ITS ---
Subjective Subjective Date of Service: 06/04/21 Interval History: Wants to go home, refusing lab draws and medications, no agitation or behavioral issue, no overnight fever chills, tele monitor showed stable ventricular rate. Coughing and bringing up thick tirado phlegm. Review of Systems Review of Systems: Yes all other systems are reviewed and are negative Physical Exam Vital Signs: Vital Signs: Last Vital Signs Temp 97.2 F 06/04/21 03:24 Pulse 68 06/04/21 03:24 Resp 18 06/04/21 03:24 BP 139/81 06/04/21 03:24 Pulse Ox 94 06/04/21 03:24 BMI result Body Mass Index 22.2 Const: Other: Gen: Awake alert, in no acute distr ess HEENT: sclera anicteric, moist m ucus membranes Nec k: supple Lungs: c lear to auscultati on bilaterally Hea rt: irregularly ir regular, no murmur s Abd: soft, non-t jose, non-distend ed Ext: no edema S kin: warm/well-per fused Neuro: alert and oriented x3, no focal findings Psych: irritable, restricted affect Objective Data Active Medications Albuterol Sulfate (Albuterol Sulfate (0.083%) 2.5 Mg/3 Ml Vial.Neb) 2.5 mg INHALE Q2H PRN PRN Reason: Shortness of Breath/Wheezing Last Admin: 05/24/21 00:11 Dose: 2.5 mg Documented by: OSCAR Albuterol/Ipratropium (Albuterol/Iprat 2.5/0.5mg 3 Ml Ampul.Neb) 3 ml INHALE RQ 4H WHILE AWAKE [facility] Last Admin: 06/04/21 08:10 Dose: 3 ml Documented by: AVE Clotrimazole (Clotrimazole 10 Mg Diana) 10 mg MUCOUS MEM 5XD [facility] Last Admin: 06/04/21 09:22 Dose: Not Given Documented by: JESUS Non-Admin Reason: Patient Refused Digoxin (Digoxin 0.125 Mg Tablet) 0.125 mg PO Q2D [facility] Last Admin: 06/04/21 09:27 Dose: 0.125 mg Documented by: JESUS Escitalopram Oxalate (Escitalopram Oxalate 10 Mg Tablet) 10 mg PO DAILY [facility] Last Admin: 06/04/21 07:38 Dose: 10 mg Documented by: JESUS Guaifenesin/Dextromethorphan (Guaifenesin Dm 100/10/5 Ml 5 Ml Syrup) 10 ml PO TID [facility] Last Admin: 06/04/21 07:38 Dose: 10 ml Documented by: JESUS Piperacillin Sod/Tazobactam (Sod 3.375 gm/ Sodium Chloride) 50 mls @ 100 mls/hr IV Q6H [facility] Last Infusion: 06/04/21 09:09 Dose: 100 mls/hr Documented by: JESUS Vancomycin HCl 1,250 mg/ (Sodium Chloride) 250 mls @ 166.667 mls/hr IV Q24H [facility] Last Admin: 06/03/21 14:11 Dose: Not Given Documented by: RAHEL Non-Admin Reason: Patient Refused Levetiracetam (Levetiracetam 500 Mg Tablet) 500 mg PO BID [facility] Last Admin: 06/04/21 07:38 Dose: 500 mg Documented by: JESUS Metoprolol Succinate (Metoprolol Succinate Er 100 Mg Tab.Er.24h) 100 mg PO DAILY [facility]; Protocol Last Admin: 06/04/21 07:38 Dose: 100 mg Documented by: JESUS Multivitamins/Vitamin C (Multivitamin Tablet) 1 tab PO DAILY [facility] Last Admin: 06/04/21 07:38 Dose: 1 tab Documented by: JESUS Nicotine (Nicotine 21 Mg Patch.Td24) 21 mg TRANSDERMA DAILY [facility] Last Admin: 06/04/21 07:41 Dose: Not Given Documented by: JESUS Non-Admin Reason: Patient Refused Nicotine Polacrilex (Nicotine Polacrilex 2 Mg Gum) 2 mg BUCCAL Q1H PRN PRN Reason: Nicotine Cravings Omeprazole (Omeprazole 40 Mg Capsule.Dr) 40 mg PO DAILY@0630 [facility] Ondansetron HCl (Ondansetron Hcl 4 Mg/2 Ml Vial) 4 mg IVPUSH Q8H PRN PRN Reason: Nausea and Vomiting Last Admin: 05/29/21 03:44 Dose: 4 mg Documented by: ODRISM Pentoxifylline (Pentoxifylline Er 400 Mg Tablet.Er) 400 mg PO BID [facility] Last Admin: 06/04/21 07:38 Dose: 400 mg Documented by: JESUS Prednisone (Prednisone 10 Mg Tablet) 10 mg PO DAILY [facility] Last Admin: 06/04/21 09:26 Dose: 10 mg Documented by: JESUS Sodium Chloride (0.9 % Sodium Chloride Flush 3 Ml Syringe) 3 ml IVFLUSH QSHIFT [facility] Last Admin: 06/04/21 07:39 Dose: 3 ml Documented by: JESUS Labs CBC & Chem 7: 06/04/21 05:27 06/02/21 05:45 Labs: Laboratory Results - last 24 hr 06/03/21 06/04/21 06/04/21 09:00 05:27 05:27 MCV 85.6 MCH 29.3 MCHC 34.2 RDW 19.0 H Plt Count 184 MPV 11.6 Absolute Nucleated RBC 0.000 Nucleated RBC % (auto) 0.0 Neutrophils % (Manual) 91 H Band Neutrophils % 0 L Lymphocytes % (Manual) 3 L Monocytes % (Manual) 6 Abs Neuts (Manual) 31.9 H Lymphocytes # (Manual) 1.1 L Monocytes # (Manual) 2.1 H Platelet Estimate NORMAL Plt Morphology Comment NORMAL RBC Morphology NOTED Polychromasia 1+ (0-2) Target Cells 2+ (15-30) Digoxin 0.9 C. difficile Tox B Gene NEGATIVE Microbiology Microbiology Results: Microbiology 06/02/21 10:47 Blood Culture - Final Blood - Venous 06/02/21 10:47 Blood Culture - Final Blood - Venous Assessment and Plan (1) MDD (major depressive disorder), recurrent episode, moderate: Status: Acute (2) Opioid use disorder, moderate, dependence: Status: Acute (3) Cardiomyopathy: Status: Acute (4) CAD (coronary artery disease): Status: Acute (5) Pneumonitis: Status: Acute (6) Pneumonia: Status: Acute (7) Atrial flutter with rapid ventricular response: Status: Acute (8) Atherosclerotic cardiovascular disease: Status: Acute (9) Elevated liver enzymes: Status: Acute (10) Acute heart failure: Status: Acute (11) Hypoxia: Status: Acute (12) Community acquired pneumonia: Status: Acute (13) Acute exacerbation of chronic obstructive airways disease: Status: Acute (14) Sepsis: Status: Acute Assessment and Plan: 66yo M with COPD not on home O2, CAD s/p CABG x2, combined systolic/diastolic HF, AF on apixaban, CVA without residual deficit, PAD, tobacco abuse [1.5 ppd], hx heroin + cocaine abuse, seizure disorder, possible VF arrest with status epilepticus back in Jan 2021 presented to his PCP's office with dyspnea and was noted to be hypoxic ,arrived here hypotensive and hypoxic but fluid-responsive admitted for sepsis from multifocal PNA, treated fully with 7 days of antibiotics developed hypotension and leukocytosis but then started refusing treatments and labs # hypotension, resolved, not related to GI bleed since noted to have no overt bleeding,likely related to sepsis infection and poor by mouth intake, BP improved, continue metoprolol 100 mg at p.m. home dose metoprolol 75 mg. Will DC clonidine. # leukocytosis - WBCs up to 48 now trending down to 35,000,seems out of proportion for steroid- induced demargination. PCT 0.51. Since patient refuse labs and chest Xray he was empirically started on an tibiotics vanco and Zosyn for sepsis Chest x-ray June 02 normal, UA May 25 normal denies abdominal pain no nausea no vomiting no diarrhea C diff PCR ordered, will discuss further antibiotic treatment with ID # [id number] - seen by Dr. Russ patient declined any intervention, she recommended IV PPI for 48 hours, will transition to by mouth PPI # acute hypoxic respiratory failure - wean O2 as tolerated- on 3L via NC at this time # PNA- CAP?? atypical?? amiodarone/heroin drug-induced lung injury?? allergic- type pneumonitis? COPD exacerbation - finished 7 day course of ceftriaxone + doxycycline and infiltrates completely resolved on CXR - urine antigens for pneumococcus negative; Legionella pending - on prednisone 20 mg daily, will wean to 10 mg daily , continue nebs - d/c'ed amiodarone - pt has very high IgE level [1827, ULN is 114],will need outpt Pulm f/u for further allergy testing # acute/chronic HFrEF # cardiomyopathy, ischemic + drug-related - appears euvolemic, status post IV Lasix , diuretics discontinued since creatinine trending up, was given albumin overnight, No signs of fluid overload, not on home diuretic - continue metoprolol # hypokalemia - repleted potassium 3.3 # atrial flutter with variable conduction - continue metoprolol + digoxin - apixaban held due to elevated LFTs + INR, resume when improved, will follow digoxin level # transaminasemia/acute liver injury - GI consulted - LFTs significantly elevated on admission,? related to drug toxicity versus passive congestion versus ischemic hepatitis. LFTs? improving slowly - acute HAV IgM negative - abd Doppler normal - HBV/HCV/HIV viral loads all negative - unlikely due to chronic use of statin or amiodarone per GI # thrush - clotrimazole troches.? HIV negative ? # history of peripheral arterial disease/coronary artery disease status post CABG - continue metoprolol succinate + pentoxyfilline; no aspirin or statin due to liver toxicity and elevated INR # seizure disorder - continue levetiracteam, take seizure precautions # mood disorder - seen by Psychiatry patient diagnosed to have no suicidal or homicidal ideation, has history of depression; discontinued sertraline due to liver impairment and patient placed on escitalopram 10 mg daily. - competent per Psychiatry - pt also refusing to speak to Dinorah by phone. per my discussion with her, his intransigence is fairly close to baseline for him and he has historically signed out [place]MA from here and from [facility] [place]. he states he wants to go home but is not actively trying to leave AMA at this point, just refusing much of his care. # opioid use disorder history of cocaine abuse - was on Suboxone in past but did not tolerate; drug toxicology positive for fentanyl, patient admits use of heroin - seen by Recovery Team; no withdrawal symptoms noted # tobacco abuse - on nicotine patch, counseling done # VTE ppx - compression boots # dispo - plan eventual home with [facility]NA but I wonder whether home hospice is an option. My attempts at engaging him in a conversation about this, however, were unhelpful- he just tells me to go away Quality Stroke Does the patient have a stroke diagnosis?: No VTE Prior VTE?: No VTE Risk Level:: Medical - moderate - high VTE Device Contraindication: N/A - Device Ordered VTE Drug Contraindication: N/A - Med Ordered
--- NOTE | 2021-06-04 14:24 | P.CNID_ITS ---
History of Present Illness Data of Consult Service Date: 06/04/21 Requesting physician: Perlita Bradley Primary Care Provider: Tony Rhodes MD HPI Reason for consult: leukocytosis He presents to hospital on 05/22 with cough and shortness of breath. He is COVID negative There was concern over multifocal pneumonia and started on Ceftriaxone ,Zmax and then Doxycycline He had initial WBC of 15,000 He has had subsequent increase in WBC and now 40,000. He has had no worsening CXR and has been declining lab work apparently. He was started on Solumedrol on admission 05/22/2021. He has no diarrhea. Review of Systems Verdana 4l Review of Systems: Yes all other systems are reviewed and Verdana 4d are negative [facility] Past Medical History Medical History Acute combined systolic and diastolic congestive heart failure Atrial fibrillation Atrial flutter Atrial flutter CAD (coronary artery disease) Cardiac arrest Cardiomyopathy CHF (congestive heart failure) Cocaine abuse with intoxication COPD (chronic obstructive pulmonary disease) Coronary bypass graft mechanical complication Drug abuse 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 Heroin use History of hemorrhagic cerebrovascular accident (CVA) without residual deficits Hyperlipemia Leukocytosis Opioid use disorder Paroxysmal atrial fibrillation Pneumonia Pneumonitis PVD (peripheral vascular disease) Seizure disorder Seizure-like activity Subclavian arterial stenosis Toxic encephalopathy Family History Family history: reviewed and not pertinent Surgical History Surgical History S/P CABG x 2 Social History Social History Household Members: Spouse Housing: House Do you presently have visiting nurse or other home services: No Unable to assess alcohol history related to: Unable to respond Alcohol intake: former Patient Tobacco Use Status: Current everyday Tobacco user Tobacco use type: Cigarette Cigarette Packs Per Day: 2 Cigarettes Per Day: 40.0 e-Cigarette/Vaping Use: Never Used Second Hand Smoke Exposure: Yes Substance Use Type: Heroin Advance Directives: Yes Advance Directives on File: Yes Advance Directives Date on File: 01/12/21 service: No Current occupational status: retired Meds Allergies Allergy/AdvReac Type Severity Reaction Status Date / Time No Known Allergies Allergy Unverified 01/12/21 01:03 Active Medications: Current Medications Albuterol Sulfate (Albuterol Sulfate (0.083%) 2.5 Mg/3 Ml Vial.Neb) 2.5 mg INHALE Q2H PRN PRN Reason: Shortness of Breath/Wheezing Last Admin: 05/24/21 00:11 Dose: 2.5 mg Documented by: Albuterol/Ipratropium (Albuterol/Iprat 2.5/0.5mg 3 Ml Ampul.Neb) 3 ml INHALE RQ4H WHILE AWAKE [facility] Last Admin: 06/04/21 08:10 Dose: 3 ml Documented by: Clotrimazole (Clotrimazole 10 Mg Diana) 10 mg MUCOUS MEM 5XD [facility] Last Admin: 06/04/21 09:22 Dose: Not Given Documented by: Digoxin (Digoxin 0.125 Mg Tablet) 0.125 mg PO Q2D [facility] Last Admin: 06/04/21 09:27 Dose: 0.125 mg Documented by: Escitalopram Oxalate (Escitalopram Oxalate 10 Mg Tablet) 10 mg PO DAILY [facility] Last Admin: 06/04/21 07:38 Dose: 10 mg Documented by: Guaifenesin/Dextromethorphan (Guaifenesin Dm 100/10/5 Ml 5 Ml Syrup) 10 ml PO TID [facility] Last Admin: 06/04/21 07:38 Dose: 10 ml Documented by: Piperacillin Sod/Tazobactam (Sod 3.375 gm/ Sodium Chloride) 50 mls @ 100 mls/hr IV Q6H [facility] Last Infusion: 06/04/21 09:09 Dose: Infused Documented by: Vancomycin HCl 1,250 mg/ (Sodium Chloride) 250 mls @ 166.667 mls/hr IV Q24H [facility] Last Admin: 06/03/21 14:11 Dose: Not Given Documented by: Levetiracetam (Levetiracetam 500 Mg Tablet) 500 mg PO BID [facility] Last Admin: 06/04/21 07:38 Dose: 500 mg Documented by: Metoprolol Succinate (Metoprolol Succinate Er 100 Mg Tab.Er.24h) 100 mg PO DAILY [facility]; Protocol Last Admin: 06/04/21 07:38 Dose: 100 mg Documented by: Multivitamins/Vitamin C (Multivitamin Tablet) 1 tab PO DAILY [facility] Last Admin: 06/04/21 07:38 Dose: 1 tab Documented by: Nicotine (Nicotine 21 Mg Patch.Td24) 21 mg TRANSDERMA DAILY [facility] Last Admin: 06/04/21 07:41 Dose: Not Given Documented by: Nicotine Polacrilex (Nicotine Polacrilex 2 Mg Gum) 2 mg BUCCAL Q1H PRN PRN Reason: Nicotine Cravings Omeprazole (Omeprazole 40 Mg Capsule.Dr) 40 mg PO DAILY@0630 [facility] Ondansetron HCl (Ondansetron Hcl 4 Mg/2 Ml Vial) 4 mg IVPUSH Q8H PRN PRN Reason: Nausea and Vomiting Last Admin: 05/29/21 03:44 Dose: 4 mg Documented by: Pentoxifylline (Pentoxifylline Er 400 Mg Tablet.Er) 400 mg PO BID [facility] Last Admin: 06/04/21 07:38 Dose: 400 mg Documented by: Prednisone (Prednisone 10 Mg Tablet) 10 mg PO DAILY [facility] Last Admin: 06/04/21 09:26 Dose: 10 mg Documented by: Sodium Chloride (0.9 % Sodium Chloride Flush 3 Ml Syringe) 3 ml IVFLUSH QSHIFT [facility] Last Admin: 06/04/21 07:39 Dose: 3 ml Documented by: Home Medications Medication Instructions Recorded Confirmed Last Taken Type apixaban 5 mg 5 mg PO BID 01/12/21 06/10/21 05/21/21 History tablet (Eliquis) pentoxifylline 1 tab PO BID 01/18/21 06/10/21 05/21/21 History 400 mg tablet,extended release B-complex with 1 tab PO DAILY 05/22/21 06/10/21 05/21/21 History vitamin C multivitamin 1 tab PO DAILY 05/22/21 06/10/21 05/21/21 History vitamin E 400 400 unit PO 06/10/21 06/10/21 Unknown History unit capsule DAILY Physical Exam Verdana 4l Vital Signs: Verdana 4d Verdana 4d Vital Signs: Verdana 4d Verdana 4Bd Last Vital Signs Verdana 4d Girl Friday New 4d Girl Friday New 4d Temp 97.2 F 06/04/21 03:24 Girl Friday New 4d Pulse 68 06/04/21 03:24 Girl Friday New 4d Resp 18 06/04/21 03:24 BP 139/81 06/04/21 03:24 Pulse Ox 94 06/04/21 03:24 BMI result Body Mass Index 22.2 Const: General: cooperative Orientation/consciousness: patient oriented x3 HENMT: Head: Yes normal to inspection Mouth: Normal oral and palatal mucosa present Resp: Effort & Inspection: normal respiratory effort Cardio: Rate: regular rate Rhythm: regular rhythm GI: Palpation (GI): Soft to palpation and nontender Skin: General skin exam: no rashes or lesions noted Neuro: General: patient oriented x3 Extrem: General: Yes normal to inspection Results Labs CBC & Chem 7: 06/07/21 12:14 06/07/21 12:14 Labs: Short CBC 06/04/21 Range/Units 05:27 WBC 35.1 H* (4.8-10.8) X10*3/uL Hgb 14.4 (14.0-18.0) g/dl Hct 42.1 (42.0-52.0) % Plt Count 184 (160-400) X10*3/uL Microbiology Microbiology Results: Microbiology 06/02/21 10:47 Blood - Venous Blood Culture - Final 06/02/21 10:47 Blood - Venous Blood Culture - Final 05/22/21 12:49 Blood - Venous Blood Culture - Final No growth after 5 days. 05/22/21 12:11 Blood - Venous Blood Culture - Final No growth after 5 days. Assessment and Plan (1) Leukocytosis: Status: Acute He has leukemoid reaction with increased WBC and can be dramatic up to WBC of 100,000 He doesnt appear to be septic or have septic shock as has stable vital signs Causes can include leukemia,steroid side effect or sepsis He can have fungal infection as well but declines allowing lab draw He has been on Ceftriaxone and Azithromycin and short term Doxycycline so without an organism Zosyn and Vancomycin wouldnt be helpful It would be very unlikely to have acquired MRSA in hospital ,especially quickly He has had increased LFTs and polysubstance history but patient declines workup Plan Would stop Vancomycin and Zosyn Start back again po Doxycycline cover potential MRSA,legionella,typhus Hematology followup if persists?leukemia
[2021-06-04 14:36] LABS: Alanine Aminotransferase 214 U/L (0-40); Alkaline Phosphatase 95 U/L (39-117); Anion Gap 15 (12-20); Aspartate Amino Transferase 76 U/L (5-37); Bilirubin Total 1.8 mg/dL (0.0-1.0); Blood Urea Nitrogen 21 mg/dL (9-16); Calcium 8.3 mg/dL (8.4-10.2); Carbon Dioxide 28 mmol/L (22-29); Chloride 99 mmol/L (96-108); Creatinine Clr Calc Pharmacy 55.5; Estimated Glomerular Filt Rate > 60; Glucose Random 206 mg/dL (60-115); Potassium 3.2 mmol/L (3.3-5.1); Sodium 139 mmol/L (135-145); Total Protein 5.1 g/dL (6.5-8.0)
[2021-06-04 14:55] LABS: Procalcitonin 0.32 ng/mL
[2021-06-05 04:27] LABS: Legionella Ag Urine Not Detected (Not Detected)
[2021-06-05] MEDS: Metoprolol Succinate ER 100 MG TAB.ER.24H PO (08:40)
[2021-06-05] MEDS: Pentoxifylline ER 400 MG TABLET.ER PO ×2 (08:40→20:09)
[2021-06-05] MEDS: Valsartan 40 MG TABLET PO (08:40)
[2021-06-05] MEDS: predniSONE 10 MG TABLET PO (08:40)
[2021-06-05] MEDS: guaiFENesin DM 100/10/5 ML 5 ML SYRUP 10 ML PO ×3 (08:41→20:09)
[2021-06-05] MEDS: Escitalopram Oxalate 10 MG TABLET PO (08:41)
[2021-06-05] MEDS: levETIRAcetam 500 MG TABLET PO ×2 (08:41→20:09)
[2021-06-05] MEDS: Multivitamin TABLET 1 TAB PO (08:43)
[2021-06-05 10:46] LABS: Basophils Percent Auto 0.1 % (0-2); Eosinophils Percent Auto 0.1 % (0-4); Hematocrit 38.3 % (42.0-52.0); Hemoglobin 13.6 g/dl (14.0-18.0); Imm Gran Abs Auto 0.61 X10*3/uL (0.00-0.03); Lymphocytes Percent Auto 6.5 % (20-40); MANUAL DIFF FLAG SCAN; Mean Corpuscular HGB Conc 35.5 g/dl (31.0-36.0); Mean Corpuscular Hemoglobin 28.6 pg (27.0-33.0); Mean Corpuscular Volume 80.6 fL (80.0-98.0); Mean Platelet Volume 10.4 fL (9.4-12.4); Monocytes Absolute Auto 2.1 X10*3/uL (0.1-1.2); Neutrophils Absolute Auto 25.4 x10*3/uL (2.0-8.3); Neutrophils Percent Auto 84.3 % (45-73); Platelet Count 208 X10*3/uL (160-400); Red Blood Count 4.75 X10*6/uL (4.60-5.80); Red Cell Distribution Width 17.3 % (11.0-16.0); SCAN SMEAR FLAG 1
[2021-06-05 10:56] LABS: White Blood Count 30.2 X10*3/uL (4.8-10.8)
[2021-06-05 11:29] LABS: SLIDE REVIEW VERIFIED
[2021-06-05 11:51] LABS: Procalcitonin 0.36 ng/mL
[2021-06-05 12:00] VITALS: BP 93/50; PULSE 78; RESP 16; TEMP 36.3; O2SAT 89
--- NOTE | 2021-06-05 14:34 | P.PNIM_ITS ---
Subjective Subjective Date of Service: 06/05/21 Interval History: Wants to go home, has been in bed refusing to participate with respiratory therapist, refusing lab and ambulation, has been incontinent of bowels. Review of Systems Review of Systems: Yes all other systems are reviewed and are negative Physical Exam Vital Signs: Vital Signs: Last Vital Signs Temp 97.3 F 06/05/21 12:00 Pulse 78 06/05/21 12:00 Resp 16 06/05/21 12:00 BP 93/50 L 06/05/21 12:00 Pulse Ox 89 L 06/05/21 12:00 BMI result Body Mass Index 22.2 Const: Other: Gen:? Awake alert, frail, no acute distress HEENT: sclera anicteric, moist mucus membranes Neck: supple Lungs: clear to auscultation bilaterally Heart: irregularly irregular, no murmurs Abd: soft, non-tender, non-distended Ext: no edema Skin: warm/well-perfused Neuro: alert?and oriented x3,no focal findings Psych: irritable,restricted affect Objective Data Active Medications Albuterol Sulfate (Albuterol Sulfate (0.083%) 2.5 Mg/3 Ml Vial.Neb) 2.5 mg INHALE Q2H PRN PRN Reason: Shortness of Breath/Wheezing Last Admin: 05/24/21 00:11 Dose: 2.5 mg Documented by: OSCAR Albuterol/Ipratropium (Albuterol/Iprat 2.5/0.5mg 3 Ml Ampul.Neb) 3 ml INHALE RQ4H WHILE AWAKE [facility] Last Admin: 06/05/21 12:38 Dose: Not Given Documented by: BEVERLY Non-Admin Reason: Patient Refused Clotrimazole (Clotrimazole 10 Mg Diana) 10 mg MUCOUS MEM 5XD [facility] Last Admin: 06/05/21 12:46 Dose: Not Given Documented by: JESUS Non-Admin Reason: Patient Refused Digoxin (Digoxin 0.125 Mg Tablet) 0.125 mg PO Q2D [facility] Last Admin: 06/04/21 09:27 Dose: 0.125 mg Documented by: JESUS Doxycycline Hyclate (Doxycycline Hyclate 100 Mg Tablet) 100 mg PO Q12H [facility] Last Admin: 06/05/21 08:41 Dose: 100 mg Documented by: JESUS Escitalopram Oxalate (Escitalopram Oxalate 10 Mg Tablet) 10 mg PO DAILY [facility] Last Admin: 06/05/21 08:41 Dose: 10 mg Documented by: JESUS Guaifenesin/Dextromethorphan (Guaifenesin Dm 100/10/5 Ml 5 Ml Syrup) 10 ml PO TID [facility] Last Admin: 06/05/21 08:41 Dose: 10 ml Documented by: JESUS Levetiracetam (Levetiracetam 500 Mg Tablet) 500 mg PO BID [facility] Last Admin: 06/05/21 08:41 Dose: 500 mg Documented by: JESUS Metoprolol Succinate (Metoprolol Succinate Er 100 Mg Tab.Er.24h) 100 mg PO DAILY [facility]; Protocol Last Admin: 06/05/21 08:40 Dose: 100 mg Documented by: JESUS Multivitamins/Vitamin C (Multivitamin Tablet) 1 tab PO DAILY [facility] Last Admin: 06/05/21 08:43 Dose: 1 tab Documented by: JESUS Nicotine (Nicotine 21 Mg Patch.Td24) 21 mg TRANSDERMA DAILY [facility] Last Admin: 06/05/21 12:46 Dose: Not Given Documented by: JESUS Non-Admin Reason: Patient Refused Nicotine Polacrilex (Nicotine Polacrilex 2 Mg Gum) 2 mg BUCCAL Q1H PRN PRN Reason: Nicotine Cravings Omeprazole (Omeprazole 40 Mg Capsule.Dr) 40 mg PO DAILY@0630 [facility] Last Admin: 06/05/21 06:15 Dose: Not Given Documented by: JOHNSON Non-Admin Reason: Patient Refused Ondansetron HCl (Ondansetron Hcl 4 Mg/2 Ml Vial) 4 mg IVPUSH Q8H PRN PRN Reason: Nausea and Vomiting Last Admin: 05/29/21 03:44 Dose: 4 mg Documented by: ODRISM Pentoxifylline (Pentoxifylline Er 400 Mg Tablet.Er) 400 mg PO BID [facility] Last Admin: 06/05/21 08:40 Dose: 400 mg Documented by: JESUS Prednisone (Prednisone 10 Mg Tablet) 10 mg PO DAILY [facility] Last Admin: 06/05/21 08:40 Dose: 10 mg Documented by: JESUS Sodium Chloride (0.9 % Sodium Chloride Flush 3 Ml Syringe) 3 ml IVFLUSH QSHIFT [facility] Last Admin: 06/05/21 12:47 Dose: Not Given Documented by: JESUS Non-Admin Reason: No Access Valsartan (Valsartan 40 Mg Tablet) 40 mg PO BID [facility]; Protocol Last Admin: 06/05/21 08:40 Dose: 40 mg Documented by: JESUS Labs CBC & Chem 7: 06/05/21 10:27 06/04/21 14:10 Labs: Laboratory Results - last 24 hr 05/25/21 06/02/21 06/04/21 13:08 08:38 14:10 MCV MCH MCHC RDW Plt Count MPV Immature Gran % (Auto) Neut % (Auto) Lymph % (Auto) [place] % (Auto) Eos % (Auto) Baso % (Auto) Lymph # (Auto) [place] # (Auto) Eos # (Auto) Baso # (Auto) Abs Immat Gran (auto) Absolute Neuts (auto) Absolute Nucleated RBC Nucleated RBC % (auto) Smear Tech's Comments Smear Path Review Anion Gap 15 Estim Creat Clear Calc 55.5 Estimated GFR > 60 Random Glucose 206 H D Calcium 8.3 L Total Bilirubin 1.8 H AST 76 H ALT 214 H Alkaline Phosphatase 95 D Total Protein 5.1 L Albumin 3.0 L Procalcitonin Ur L.pneumophila Ag Not Detected 06/04/21 06/05/21 06/05/21 14:10 10:27 10:27 MCV 80.6 D MCH 28.6 MCHC 35.5 RDW 17.3 H Plt Count 208 MPV 10.4 Immature Gran % (Auto) 2.0 H Neut % (Auto) 84.3 H Lymph % (Auto) 6.5 L [place] % (Auto) 7.0 Eos % (Auto) 0.1 Baso % (Auto) 0.1 Lymph # (Auto) 2.0 [place] # (Auto) 2.1 H Eos # (Auto) 0.0 Baso # (Auto) 0.0 Abs Immat Gran (auto) 0.61 H Absolute Neuts (auto) 25.4 H Absolute Nucleated RBC 0.000 Nucleated RBC % (auto) 0.0 Smear Tech's Comments VERIFIED Smear Path Review Anion Gap Estim Creat Clear Calc Estimated GFR Random Glucose Calcium Total Bilirubin AST ALT Alkaline Phosphatase Total Protein Albumin Procalcitonin 0.32 0.36 Ur L.pneumophila Ag Assessment and Plan (1) MDD (major depressive disorder), recurrent episode, moderate: Status: Acute (2) Opioid use disorder, moderate, dependence: Status: Acute (3) Cardiomyopathy: Status: Acute (4) CAD (coronary artery disease): Status: Acute (5) Pneumonitis: Status: Acute (6) Pneumonia: Status: Acute (7) Atrial flutter with rapid ventricular response: Status: Acute (8) Atherosclerotic cardiovascular disease: Status: Acute (9) Elevated liver enzymes: Status: Acute (10) Acute heart failure: Status: Acute (11) Hypoxia: Status: Acute (12) Community acquired pneumonia: Status: Acute (13) Acute exacerbation of chronic obstructive airways disease: Status: Acute (14) Sepsis: Status: Acute Assessment and Plan: 66yo M with COPD not on home O2, CAD s/p CABG x2, combined systolic/diastolic HF, AF on apixaban, CVA without residual deficit, PAD, tobacco abuse [1.5 ppd], hx heroin + cocaine abuse, seizure disorder, possible VF arrest with status epilepticus back in Jan 2021 presented to his PCP's office with dyspnea and was noted to be hypoxic ,arrived here hypotensive and hypoxic but fluid-responsive admitted for sepsis from multifocal PNA, treated fully with 7 days of antibiotics developed hypotension and leukocytosis but then started refusing treatments and labs # hypotension, Soft blood pressure, not related to GI bleed since noted to have no overt bleeding,likely related to sepsis infection and poor by mouth intake, continue metoprolol 100 mg at p.m. home dose metoprolol 75 mg, started on losartan 40 mg b.i.d. noted to have low blood pressure this afternoon therefore will lower dose to losartan 20 mg daily clonidine discontinue # leukocytosis - WBCs up to 48 now trending down to 30,000, PCT improved to 0.3 from 0.51. Since patient refuse labs and chest Xray he was empirically started on antibiotics vanco and Zosyn for sepsis Chest x-ray June 02 normal, UA May 25 normal denies abdominal pain no nausea no vomiting no diarrhea C diff PCR ordered, spoke with ID she recommend by mouth doxycycline to cover potential MRSA,legionella,typhus # FOBT+ - seen by Dr. Russ patient declined any intervention, she recommended IV PPI for 48 hours, now on by mouth PPI # acute hypoxic respiratory failure - tried obtaining home O2 eval patient was too weak to stand up, O2 sat 90% on 1 L, dropped to 88% on room air while sitting , unable to finish home O2 eval since patient unable to ambulate # PNA- CAP?? atypical?? amiodarone/heroin drug-induced lung injury?? allergic-t ype pneumonitis? COPD exacerbation - finished 7 day course of ceftriaxone + doxycycline and infiltrates completely resolved on CXR - urine antigens for pneumococcus negative; Legionella pending - on prednisone 10 mg daily, will wean to dc tomorrow - d/c'ed amiodarone - pt has very high IgE level [1827, ULN is 114],will need outpt Pulm f/u for further allergy testing # acute/chronic HFrEF # cardiomyopathy, ischemic + drug-related - appears euvolemic, status post IV Lasix , diuretics discontinued since creatinine trending up, was given albumin overnight, No signs of fluid overload, not on home diuretic - continue metoprolol and started on losartan, will need outpatient follow-up with Cardiology for AICD placement # hypokalemia - repleted potassium 3.3 follow bmp # atrial flutter with variable conduction - continue metoprolol + digoxin qod, stable digoxin level - apixaban held due to elevated LFTs + INR, cardiology okay to resume apixaban , outpatient follow-up with Cardiology for rhythm versus rate controlled, versus ablation # transaminasemia/acute liver injury - LFTs significantly elevated on admission,? related to drug toxicity versus passive congestion versus ischemic hepatitis. LFTs? improved significantly - acute HAV IgM negative - abd Doppler normal - HBV/HCV/HIV viral loads all negative - seen by GI, unlikely due to chronic use of statin or amiodarone per GI # thrush - clotrimazole troches.? HIV negative ? # history of peripheral arterial disease/coronary artery disease status post CABG - continue metoprolol succinate + pentoxyfilline; no aspirin or statin due to liver toxicity and elevated INR # seizure disorder - continue levetiracteam, take seizure precautions # mood disorder - seen by Psychiatry patient diagnosed to have no suicidal or homicidal id eation, has history of depression; discontinued sertraline due to liver impairment and patient placed on escitalopram 10 mg daily. - competent per Psychiatry - pt also refusing to speak to Dinorah by phone. per my discussion with her, his intransigence is fairly close to baseline for him and he has historically signed out AMA from here and from [facility]. he states he wants to go home but is not actively trying to leave AMA at this point, just refusing much of his care. # opioid use disorder history of cocaine abuse - was on Suboxone in past but did not tolerate; drug toxicology positive for fentanyl, patient admits use of heroin - seen by Recovery Team; no withdrawal symptoms noted # tobacco abuse - on nicotine patch, counseling done # VTE ppx - compression boots # dispo - plan was to discharge home with VNA services but patient appeared too weak to stand up therefore will get re-evaluated by Physical therapy will likely need rehab. Quality Stroke Does the patient have a stroke diagnosis?: No VTE Prior VTE?: No VTE Risk Level:: Medical - moderate - high VTE Device Contraindication: N/A - Device Ordered VTE Drug Contraindication: N/A - Med Ordered
[2021-06-05 20:00] VITALS: BP 90/50; PULSE 72; RESP 18; TEMP 36.8; O2SAT 95
[2021-06-05] MEDS: Apixaban 5 MG TABLET PO (20:09)
[2021-06-05] MEDS: 0.9 % Sodium Chloride Flush 3 ML SYRINGE IVFLUSH (20:09)
[2021-06-05 23:47] VITALS: BP 109/62; PULSE 70; RESP 18; TEMP 36.4; O2SAT 93
[2021-06-06] VITALS (8 sets, daily range): BP systolic 82–122; BP diastolic 51–69; PULSE 70–78; RESP 16–19; TEMP 36.2–37.1; O2SAT 90–94
[2021-06-06] MEDS: Omeprazole 40 MG CAPSULE.DR PO (06:04)
[2021-06-06] MEDS: Albuterol/Iprat 2.5/0.5MG 3 ML AMPUL.NEB INHALE (08:48)
[2021-06-06] MEDS: levETIRAcetam 500 MG TABLET PO ×2 (08:49→20:41)
[2021-06-06] MEDS: Multivitamin TABLET 1 TAB PO (08:50)
[2021-06-06] MEDS: Escitalopram Oxalate 10 MG TABLET PO (08:50)
[2021-06-06] MEDS: Valsartan 40 MG TABLET 20 MG PO (08:50)
[2021-06-06] MEDS: Apixaban 5 MG TABLET PO ×2 (08:50→20:41)
[2021-06-06] MEDS: predniSONE 10 MG TABLET PO (08:50)
[2021-06-06] MEDS: guaiFENesin DM 100/10/5 ML 5 ML SYRUP 10 ML PO ×2 (08:50→20:41)
[2021-06-06] MEDS: Metoprolol Succinate ER 100 MG TAB.ER.24H PO (08:50)
[2021-06-06] MEDS: Pentoxifylline ER 400 MG TABLET.ER PO ×2 (09:09→20:41)
[2021-06-06] MEDS: Digoxin 0.125 MG TABLET PO (09:10)
--- NOTE | 2021-06-06 11:08 | MHC.CLN ---
F/U PATIENT IS DAY 13 WITH LIMITED PO INTAKE. IN PRIOR 2 DAYS SHOWS IMPROVED INTAKE WITH 1 MEAL 75% AND 1 MEAL 100%. DIET=REGULAR. DISLIKES ENSURE. WILL DRINK WATER. PATIENT IS NOT MEETING NUTRITION NEEDS. FOLLOW PO AND NEED FOR ALTERNATE NUTRITION.
--- NOTE | 2021-06-06 15:24 | MHC.CM.PN ---
Addendum entered by Dinorah Cotter 06/06/21 16:08: [facility] of will have a bed on 06/07, transportation booked. Original Note: Referral in [facility] to [facility]. At this time still do not have confirmation if facility has a bed. Provided, med list, HCP and PT eval to facility. CM will continue to follow.
--- NOTE | 2021-06-06 15:30 | P.PNIM_ITS ---
Subjective Subjective Date of Service: 06/06/21 Interval History: Offers no acute complaints, no events overnight, denies chest pain, no shortness of breath, no palpitation. Review of Systems Review of Systems: Yes all other systems are reviewed and are negative Physical Exam Verdana 4l Vital Signs: Verdana 4d Verdana 4d Vital Signs: Verdana 4d Verdana 4Bd Last Vital Signs Verdana 4d Roll Over Press Operator New 4d Roll Over Press Operator New 4d Temp 98.0 F 06/06/21 12:00 Roll Over Press Operator New 4d Pulse 71 06/06/21 12:00 Roll Over Press Operator New 4d Resp 17 06/06/21 12:00 BP 106/55 L 06/06/21 12:00 Pulse Ox 94 06/06/21 12:00 BMI result Body Mass Index 22.2 Const: Other: Gen:? Awake alert, frail, no acute distress HEENT: sclera anicteric, moist mucus membranes Neck: supple Lungs: clear to auscultation bilaterally Heart: irregularly irregular, no murmurs Abd: soft, non-tender, non-distended Ext: no edema Skin: warm/well-perfused Neuro: alert?and oriented x3,no focal findings Psych: Appropriate affect, more cooperative Objective Data Active Medications Albuterol Sulfate (Albuterol Sulfate (0.083%) 2.5 Mg/3 Ml Vial.Neb) 2.5 mg INHALE Q2H PRN PRN Reason: Shortness of Breath/Wheezing Last Admin: 05/24/21 00:11 Dose: 2.5 mg Documented by: OSCAR Albuterol/Ipratropium (Albuterol/Iprat 2.5/0.5mg 3 Ml Ampul.Neb) 3 ml INHALE RQ4H WHILE AWAKE [facility] Last Admin: 06/06/21 12:40 Dose: Not Given Documented by: BEVERLY Non-Admin Reason: Patient Asleep Apixaban (Apixaban 5 Mg Tablet) 5 mg PO BID [facility] Last Admin: 06/06/21 08:50 Dose: 5 mg Documented by: JESUS Clotrimazole (Clotrimazole 10 Mg Diana) 10 mg MUCOUS MEM 5XD [facility] Last Admin: 06/06/21 14:21 Dose: Not Given Documented by: JESUS Non-Admin Reason: Patient Refused Digoxin (Digoxin 0.125 Mg Tablet) 0.125 mg PO Q2D [facility] Last Admin: 06/06/21 09:10 Dose: 0.125 mg Documented by: JESUS Doxycycline Hyclate (Doxycycline Hyclate 100 Mg Tablet) 100 mg PO Q12H [facility] Last Admin: 06/06/21 06:04 Dose: 100 mg Documented by: JOHNSON Escitalopram Oxalate (Escitalopram Oxalate 10 Mg Tablet) 10 mg PO DAILY [facility] Last Admin: 06/06/21 08:50 Dose: 10 mg Documented by: JESUS Guaifenesin/Dextromethorphan (Guaifenesin Dm 100/10/5 Ml 5 Ml Syrup) 10 ml PO TID [facility] Last Admin: 06/06/21 14:39 Dose: Not Given Documented by: JESUS Non-Admin Reason: Patient Asleep Levetiracetam (Levetiracetam 500 Mg Tablet) 500 mg PO BID [facility] Last Admin: 06/06/21 08:49 Dose: 500 mg Documented by: JESUS Metoprolol Succinate (Metoprolol Succinate Er 100 Mg Tab.Er.24h) 100 mg PO DAILY [facility]; Protocol Last Admin: 06/06/21 08:50 Dose: 100 mg Documented by: JESUS Multivitamins/Vitamin C (Multivitamin Tablet) 1 tab PO DAILY [facility] Last Admin: 06/06/21 08:50 Dose: 1 tab Documented by: JESUS Nicotine (Nicotine 21 Mg Patch.Td24) 21 mg TRANSDERMA DAILY [facility] Last Admin: 06/06/21 08:55 Dose: Not Given Documented by: JESUS Non-Admin Reason: Patient Refused Nicotine Polacrilex (Nicotine Polacrilex 2 Mg Gum) 2 mg BUCCAL Q1H PRN PRN Reason: Nicotine Cravings Omeprazole (Omeprazole 40 Mg Capsule.Dr) 40 mg PO DAILY@0630 [facility] Last Admin: 06/06/21 06:04 Dose: 40 mg Documented by: JOHNSON Ondansetron HCl (Ondansetron Hcl 4 Mg/2 Ml Vial) 4 mg IVPUSH Q8H PRN PRN Reason: Nausea and Vomiting Last Admin: 05/29/21 03:44 Dose: 4 mg Documented by: ODRISGloria Pentoxifylline (Pentoxifylline Er 400 Mg Tablet.Er) 400 mg PO BID [facility] Last Admin: 06/06/21 09:09 Dose: 400 mg Documented by: JESUS Sodium Chloride (0.9 % Sodium Chloride Flush 3 Ml Syringe) 3 ml IVFLUSH QSHIFT [facility] Last Admin: 06/06/21 09:07 Dose: Not Given Documented by: JESUS Non-Admin Reason: No Access Valsartan (Valsartan 40 Mg Tablet) 20 mg PO DAILY [facility]; Protocol Last Admin: 06/06/21 08:50 Dose: 20 mg Documented by: JESUS Labs CBC & Chem 7: 06/05/21 10:27 06/04/21 14:10 Assessment and Plan (1) MDD (major depressive disorder), recurrent episode, moderate: Status: Acute (2) Opioid use disorder, moderate, dependence: Status: Acute (3) Cardiomyopathy: Status: Acute (4) CAD (coronary artery disease): Status: Acute (5) Pneumonitis: Status: Acute (6) Pneumonia: Status: Acute (7) Atrial flutter with rapid ventricular response: Status: Acute (8) Atherosclerotic cardiovascular disease: Status: Acute (9) Elevated liver enzymes: Status: Acute (10) Acute heart failure: Status: Acute (11) Hypoxia: Status: Acute (12) Community acquired pneumonia: Status: Acute (13) Acute exacerbation of chronic obstructive airways disease: Status: Acute (14) Sepsis: Status: Acute Plan 66yo M with COPD not on home O2, CAD s/p CABG x2, combined systolic/diastolic HF, AF on apixaban, CVA without residual deficit, PAD, tobacco abuse [1.5 ppd], hx heroin + cocaine abuse, seizure disorder, possible VF arrest with status epilepticus back in Jan 2021 presented to his PCP's office with dyspnea and was noted to be hypoxic ,arrived here hypotensive and hypoxic but fluid-responsive admitted for sepsis from multifocal PNA, treated fully with 7 days of antibiotics developed hypotension and leukocytosis but then started refusing treatments and labs # hypotension, no further episodes of hypotension noted, hypotension on 06/02 was likely related to sepsis and poor by mouth intake BP soft and stable now, continue metoprolol 100 mg and losartan 20 mg daily. # leukocytosis - WBCs and procalcitonin trending down Chest x-ray June 02 normal, UA May 25 normal denies abdominal pain no nausea, no vomiting no diarrhea C diff PCR negative, Dr. Darling recommend by mouth doxycycline to cover potential MRSA,legionella,typhus for total 7 day # FOBT+ - seen by Dr. Russ patient declined any intervention, she recommended IV PPI for 48 hours, now on by mouth PPI # acute hypoxic respiratory failure - continue oxygen 2 L maintain finger oximetry above 90 # PNA- CAP?? atypical?? amiodarone/heroin drug-induced lung injury?? allergic- type pneumonitis? COPD exacerbation - finished 7 day course of ceftriaxone + doxycycline and infiltrates completely resolved on CXR - urine antigens for pneumococcus and Legionella negative - will discontinue prednisone - d/c'ed amiodarone - pt has very high IgE level [1827, ULN is 114],will need outpt Pulm f/u for further allergy testing # acute/chronic HFrEF # cardiomyopathy, ischemic + drug-related - appears euvolemic, status post IV Lasix , diuretics discontinued since creatinine trending up No signs of fluid overload, not on home diuretic - continue metoprolol and losartan, will need outpatient follow-up with Cardiology for AICD placement # hypokalemia - repleted follow bmp # atrial flutter with variable conduction - continue metoprolol + digoxin qod, stable digoxin level - restarted apixaban on 06/05 , outpatient follow-up with Cardiology for rhythm versus rate controlled, versus ablation # transaminasemia/acute liver injury - LFTs significantly elevated on admission,? related to drug toxicity versus passive congestion versus ischemic hepatitis. LFTs? improved significantly - acute HAV IgM negative - abd Doppler normal - HBV/HCV/HIV viral loads all negative - seen by GI, unlikely due to chronic use of statin or amiodarone per GI - follow LFTs # thrush - clotrimazole troches.? HIV negative ? # history of peripheral arterial disease/coronary artery disease status post CABG - continue metoprolol succinate + pentoxyfilline; no aspirin or statin due to liver toxicity and elevated INR # seizure disorder - continue levetiracteam, take seizure precautions # mood disorder - seen by Psychiatry patient diagnosed to have no suicidal or homicidal ideation, has history of depression; discontinued sertraline due to liver impairment and patient placed on escitalopram 10 mg daily. - competent per Psychiatry - patient in better mood now, agreeing to participate with physical therapy tolerating diet # opioid use disorder history of cocaine abuse - was on Suboxone in past but did not tolerate; drug toxicology positive for fentanyl, patient admits use of heroin - seen by Recovery Team; no withdrawal symptoms noted # tobacco abuse - on nicotine patch, counseling done # VTE ppx - compression boots # dispo - plan was to discharge home with VNA services but patient appeared too weak therefore re-evaluated by Physical therapy and they are recommending short-term rehab due to generalized weakness and high fall risk patient needs lot of motivation to participate in physical therapy. Quality Stroke Does the patient have a stroke diagnosis?: No VTE Prior VTE?: No VTE Risk Level:: Medical - moderate - high VTE Device Contraindication: N/A - Device Ordered VTE Drug Contraindication: N/A - Med Ordered
[2021-06-06] MEDS: Potassium Chloride ER 20 MEQ TAB.ER.PRT PO (15:57)
[2021-06-07 04:00] VITALS: BP 94/55; PULSE 72; RESP 16; TEMP 36.7; O2SAT 95
[2021-06-07] MEDS: Omeprazole 40 MG CAPSULE.DR PO (06:04)
[2021-06-07 07:36] VITALS: BP 104/58; PULSE 71; RESP 18; TEMP 36.6; O2SAT 97
[2021-06-07] MEDS: Escitalopram Oxalate 10 MG TABLET PO (11:04)
[2021-06-07] MEDS: levETIRAcetam 500 MG TABLET PO (11:04)
[2021-06-07] MEDS: guaiFENesin DM 100/10/5 ML 5 ML SYRUP 10 ML PO ×2 (11:04→16:16)
[2021-06-07] MEDS: Pentoxifylline ER 400 MG TABLET.ER PO (11:04)
[2021-06-07] MEDS: Apixaban 5 MG TABLET PO (11:04)
[2021-06-07] MEDS: Metoprolol Succinate ER 100 MG TAB.ER.24H PO (11:05)
[2021-06-07 12:46] LABS: Basophils Percent Auto 0.2 % (0-2); Hematocrit 35.7 % (42.0-52.0); Hemoglobin 12.3 g/dl (14.0-18.0); Imm Gran Abs Auto 0.31 X10*3/uL (0.00-0.03); Imm Gran Pct Auto 1.4 % (0.0-0.4); Lymphocytes Absolute Auto 1.9 X10*3/uL (1.2-4.9); Lymphocytes Percent Auto 8.5 % (20-40); MANUAL DIFF FLAG SCAN; Mean Corpuscular HGB Conc 34.5 g/dl (31.0-36.0); Mean Corpuscular Hemoglobin 28.3 pg (27.0-33.0); Mean Corpuscular Volume 82.1 fL (80.0-98.0); Mean Platelet Volume 10.4 fL (9.4-12.4); Monocytes Absolute Auto 1.8 X10*3/uL (0.1-1.2); Neutrophils Absolute Auto 18.3 x10*3/uL (2.0-8.3); Neutrophils Percent Auto 81.9 % (45-73); Platelet Count 209 X10*3/uL (160-400); Red Blood Count 4.35 X10*6/uL (4.60-5.80); SCAN SMEAR FLAG 1; White Blood Count 22.3 X10*3/uL (4.8-10.8)
[2021-06-07 13:00] LABS: Alanine Aminotransferase 115 U/L (0-40); Albumin Level 2.7 g/dL (3.5-5.0); Alkaline Phosphatase 93 U/L (39-117); Anion Gap 12 (12-20); Aspartate Amino Transferase 38 U/L (5-37); Bilirubin Direct 0.6 mg/dL (0.0-0.5); Blood Urea Nitrogen 17 mg/dL (9-16); Calcium 8.3 mg/dL (8.4-10.2); Carbon Dioxide 27 mmol/L (22-29); Chloride 107 mmol/L (96-108); Creatinine Clr Calc Pharmacy 69.6; Estimated Glomerular Filt Rate > 60; Glucose Random 138 mg/dL (60-115); Potassium 3.3 mmol/L (3.3-5.1); Sodium 143 mmol/L (135-145); Total Protein 4.9 g/dL (6.5-8.0)
[2021-06-07 13:01] VITALS: PULSE 70; PULSE 72; PULSE 75; O2SAT 91; O2SAT 95
[2021-06-07 13:11] LABS: SLIDE REVIEW VERIFIED
--- NOTE | 2021-06-07 14:17 | P.DS_ITS ---
DS: Providers Provider Date of Service: 06/07/21 Date of admission: 05/22/21 15:17 Primary care physician: Tony Rhodes MD Consults: 05/23/21 12:57 Addiction Medicine Routine Consulting Provider: Lynette Tristan Reason for consultation: intermittent inhalation heroin use Consult to Care Team Routine Comment: Reason for consultation: intermittent inhalation heroin use 05/25/21 08:39 Consult to Cardiology Routine Consulting Provider: Timbo Baker Reason for consultation: chf Has provider been notified: No 05/25/21 13:33 Consult to Pulmonology Routine Consulting Provider: Codey Villegas Reason for consultation: resp distress Has provider been notified: Yes 05/28/21 07:59 Consult to Gastroenterology Routine Consulting Provider: [facility] Reason for consultation: Transaminasemia ?amio 05/30/21 11:48 Consult to Psychiatry Routine Consulting Provider: Psych Covering Reason for consultation: depression/adjustment/substance mood dis- refusing meals, hygiene, activity 06/02/21 06:32 Consult to Gastroenterology Routine Consulting Provider: Mariana Russ Reason for consultation: guaiac positive stool 06/02/21 10:28 Consult to Psychiatry Routine Consulting Provider: Psych Covering Reason for consultation: Does he have competency? Refusing IVs, meds 06/02/21 13:14 Consult to Infectious Diseases Routine Consulting Provider: Ebony Darling Reason for consultation: leukocytosis ?source DS: Diagnosis Discharge Diagnosis (1) MDD (major depressive disorder), recurrent episode, moderate: Status: Acute (2) Opioid use disorder, moderate, dependence: Status: Acute (3) Cardiomyopathy: Status: Acute (4) CAD (coronary artery disease): Status: Acute (5) Pneumonitis: Status: Acute (6) Pneumonia: Status: Acute (7) Atrial flutter with rapid ventricular response: Status: Acute (8) Atherosclerotic cardiovascular disease: Status: Acute (9) Elevated liver enzymes: Status: Acute (10) Acute heart failure: Status: Acute (11) Hypoxia: Status: Acute (12) Community acquired pneumonia: Status: Acute (13) Acute exacerbation of chronic obstructive airways disease: Status: Acute (14) Sepsis: Status: Acute DS: Summary Hospital Course Hospital Course: Chief Complaint: Seizure 65-year-old male with a past medical history of hypertension, hyperlipidemia, coronary artery disease status post CABG, peripheral vascular disease a status post bypass, history of CVA, patient on Eliquis; substance abuse, tobacco dependence presented to the hospital with a chief complaint of seizure. Patient on presentation was agitated and received Ativan in the ER.? When I tried to interview the patient patient was completely lethargic and sleepy secondary to the Ativan. Per RN patient on presentation was very uncooperative and agitated; noted to be in a flutter with rapid ventricular response; received Ativan and metoprolol; I spoke to the patient's over the phone Who mentioned that patient had been heroin couple hours prior to the episode. He was sitting in the chair and suddenly he fell down and had tonic clonic seizure with possible tongue bite and urinary incontinence.? Denies any prior episodes of seizures as per the . Still smokes cigarettes. EMS was called who has given the patient Narcan with improvement in mental status; subsequently brought to the ER for further evaluation. As per the patient's patient has been compliant with his home medications. ER course: Per ER team patient was initially alert awake, uncooperative and agitated.? Received Ativan.? EKG showed a flutter with rapid ventricular response; received metoprolol IV. Heart rate subsequently improved but patient noted to be in a flutter. All labs noted to have elevated troponin-ER doctor discussed with Dr. Talley from Cardiology who recommended to start the patient on heparin drip and admitted to the [facility] Hospital course 66yo M with COPD not on home O2, CAD s/p CABG x2, combined systolic/diastolic HF, AF on apixaban, CVA without residual deficit, PAD, tobacco abuse [1.5 ppd], hx heroin + cocaine abuse, seizure disorder, possible VF arrest with status epilepticus back in Jan 2021,presented to his PCP's office with dyspnea and was noted to be hypoxic ,arrived here hypotensive and hypoxic but fluid- responsive,admitted for sepsis from multifocal PNA, treated fully with 7 days of antibiotics,developed hypotension felt to be related to decreased by mouth intake and sepsis, blood pressure remains soft but stable, also noted to have leukocytosis likely leukemoid reaction related to steroid finishing additional 7 day course of doxycycline Problem list # hypotension, likely related to sepsis and poor by mouth intake resolved currently BP soft continue metoprolol 100 mg daily given trial of losartan due to low EF but noted to have significant drop in BP therefore discontinue, can give retrial by cardiology once more ambulatory. ? ? # leukocytosis, WBC and procalcitonin trending down, patient declined repeat workup however chest x-ray June 02 normal, patient with no abdominal pain , no nausea, no vomiting, no diarrhea ? C diff PCR? negative,?finish course of doxycycline to cover potential MRSA,legionella, and typhus. # FOBT+ noted to have heme-positive stool, no hematochezia or melena, seen by Dr. Russ patient declined any intervention, continue by mouth PPI # acute hypoxic respiratory failure resolved do not qualify for home oxygen, likely related to pneumonial?? amiodarone/heroin drug-induced lung injury?? allergic-type pneumonitis?? COPD exacerbation finished 7 day course of ceftriaxone + doxycycline and infiltrates completely resolved on CXR, urine antigens for pneumococcus and Legionella? negative, treated with prednisone d/c'ed amiodarone, pt. has very high IgE level [1827, ULN is 114],will need outpt Pulm f/u for further allergy testing. # acute/chronic HFrEF with ischemic cardiomyopathy, also likely drug related with use of cocaine, patient treated with IV Lasix, currently euvolemic continue metoprolol and outpatient follow-up with Cardiology for AICD Will need retrial of jesu/Arb # hypokalemia low-potassium repleted # atrial flutter with variable conduction continue metoprolol + digoxin qod, stable digoxin level, restarted on apixaban June 05, outpatient follow-up with Cardiology for rhythm versus rate controlled, versus ablation # transaminasemia/acute liver injury LFTs significantly elevated on admission,? related to drug toxicity versus passive congestion versus ischemic hepatitis. ? LFTs? improved significantly, acute HAV IgM negative, abd Doppler normal, HBV/HCV/HIV viral loads all negative, seen by GI, unlikely due to chronic use of statin or amiodarone per GI Recommend to follow LFTs in 1 week # thrush resolved, treated with clotrimazole troches, HIV negative ? # history of peripheral arterial disease/coronary artery disease status post CABG, continue metoprolol and pentoxyfilline, aspirin and statin discontinued due to liver toxicity and elevated INR May resume statins, when LFTs are normalized. # seizure disorder, continue levetiracteam # mood disorder seen by Psychiatry patient diagnosed to have no suicidal, or homicidal ideation, has history of depression; discontinued sertraline due to liver impairment and patient placed on escitalopram 10 mg daily. competent per Psychiatry # opioid use disorder history of cocaine abuse was on Suboxone in past but did not tolerate; drug toxicology positive for fentanyl, patient admits use of heroin, seen by Recovery Team, no withdrawal symptoms noted # tobacco abuse continue nicotine patch, counseling done. Time Spent with Patient Time attestation: Total time spent providing and/or coordinating discharge services: Discharge coordination time: Greater than 30 minutes Quality: Stroke Does the patient have a stroke diagnosis?: No Physical Exam Verdana 4l Vital Signs: Verdana 4d Verdana 4d Vital Signs: Verdana 4d Verdana 4Bd Last Vital Signs Verdana 4d Children'S Service Worker New 4d Children'S Service Worker New 4d Temp 97.8 F 06/07/21 07:36 Children'S Service Worker New 4d Pulse 71 06/07/21 07:36 Children'S Service Worker New 4d Resp 18 06/07/21 07:36 BP 104/58 L 06/07/21 07:36 Pulse Ox 97 06/07/21 07:36 BMI result Body Mass Index 22.2 Const: Other: Gen:? Awake alert, frail, no acute d istress HEENT: scl era anicteric, [address] st mucus membranes Neck: supple Lung s: clear to auscul tation bilaterally Heart: irregularl y irregular, no mu rmurs Abd: soft, n on-tender, non-dis tended Ext: no destiny ma Skin: warm/well -perfused Neuro: a lert?and oriented x3,no focal findin gs Psych: ? Approp riate affect, more cooperative DS: Data Data Completed and Pending Completed studies during hospitalization [Text1]: Procedures Insertion of Endotracheal Airway into Trachea, Via Natural or Artificial Opening Endoscopic (01/18/21) Insertion of Infusion Device into Superior Vena Cava, Percutaneous Approach (01/18/21) Introduction of Vasopressor into Central Vein, Percutaneous Approach (01/18/21) Respiratory Ventilation, 24-96 Consecutive Hours (01/18/21) Labs on day of discharge: Laboratory Results - last 24 hr 06/07/21 06/07/21 12:14 12:14 WBC 22.3 H RBC 4.35 L Hgb 12.3 L Hct 35.7 L MCV 82.1 MCH 28.3 MCHC 34.5 RDW 18.0 H Plt Count 209 MPV 10.4 Immature Gran % (Auto) 1.4 H Neut % (Auto) 81.9 H Lymph % (Auto) 8.5 L Sandoval % (Auto) 8.0 Eos % (Auto) 0.0 Baso % (Auto) 0.2 Lymph # (Auto) 1.9 Sandoval # (Auto) 1.8 H Eos # (Auto) 0.0 Baso # (Auto) 0.0 Abs Immat Gran (auto) 0.31 H Absolute Neuts (auto) 18.3 H Absolute Nucleated RBC 0.000 Nucleated RBC % (auto) 0.0 Smear Tech's Comments VERIFIED Sodium 143 Potassium 3.3 Chloride 107 Carbon Dioxide 27 Anion Gap 12 BUN 17 H Creatinine 0.91 Estim Creat Clear Calc 69.6 Estimated GFR > 60 Random Glucose 138 H Calcium 8.3 L Total Bilirubin 1.0 Direct Bilirubin 0.6 H AST 38 H D ALT 115 H Alkaline Phosphatase 93 Total Protein 4.9 L Albumin 2.7 L Discharge Plan Discharge Patient Disposition: Home Health Service Discharge Diagnosis: Sepsis due to multifocal pneumonia Leukocytosis Acute hypoxic respiratory failure Acute on chronic heart failure with reduced EF Hypokalemia Atrial flutter with variable conduction Acute liver injury Opioid use disorder Cocaine abuse disorder Tobacco abuse Referrals: [facility] [Outside] - 3-5 Days ([facility] and home physical therapy) Tony Rhodes MD [Primary Care Provider] - 1 Week Discharge Medications: New metoprolol succinate 100 mg Tablet Extended Release 24 Hr 100 mg PO DAILY Qty: 30 0RF Protocol: Hold for SBP/HR < HOLD for SBP < : 90 HOLD for HR < : 60 dextromethorphan-guaifenesin 10-100 mg/5 mL Syrup 10 ml PO TID Qty: 240 0RF omeprazole 40 mg Capsule,Delayed Release(Dr/Ec) 40 mg PO DAILY@0630 Qty: 30 0RF digoxin 125 mcg (0.125 mg) Tablet 0.125 mg PO Q2D Qty: 30 0RF escitalopram oxalate 10 mg Tablet 10 mg PO DAILY Qty: 30 0RF nicotine 21 mg/24 hr Patch 24 Hour 21 mg transdermal DAILY Qty: 21 0RF doxycycline hyclate 100 mg Tablet 100 mg PO Q12H Qty: 6 0RF Continued pentoxifylline 400 mg tablet extended release 1 tab PO BID 0RF levetiracetam 500 mg Tablet 500 mg PO BID Qty: 60 0RF omeprazole 20 mg capsule,delayed release(DR/EC) 20 mg PO DAILY 0RF Eliquis 5 mg tablet 5 mg PO BID 0RF multivitamin Tablet 1 tab PO DAILY 0RF B-complex with vitamin C Tablet 1 tab PO DAILY 0RF vitamin E 1 tab PO DAILY 0RF Discontinued amiodarone 200 mg Tablet 400 mg PO BID Qty: 120 0RF metoprolol succinate 25 mg Tablet Extended Release 24 Hr 75 mg PO DAILY Qty: 90 0RF Protocol: Hold for SBP/HR < HOLD for SBP < : 90 HOLD for HR < : 60 atorvastatin 40 mg tablet 40 mg PO BEDTIME 0RF clonidine HCl 0.1 mg tablet 0.1 mg PO BID 0RF aspirin 81 mg Tablet 81 mg PO DAILY 0RF sertraline 50 mg tablet 1 tab PO DAILY 0RF Discharge Orders: Discharge Order (Routine); Ordered 06/07/21 Ordered By: Perlita Bradley Diet: low fat, low cholesterol and low salt diet Activity on Discharge: As tolerated Stand Alone Forms: Patient Portal Discharge page Other Ambulatory Orders: Complete Blood Count Auto Diff (Routine) Timeframe: [id number] Facility: [facility] - Location: Laboratory Ordered By: Perlita Bradley Liver Panel (Routine) Timeframe: [id number] Facility: [facility] - Location: Laboratory Ordered By: Perlita Bradley Care Plan Goals: Liver injury follow LFTs as outpatient, hold statin Health Concerns: Opioid/cocaine use disorder strongly recommend to abstain from illicit drug use History of coronary artery disease prior [place], CABG in cardiomyopathy recommend to continue all medications as prescribed and close cardiology follow-up Atrial flutter amiodarone discontinued due to elevated LFTs continue metoprolol and digoxin as prescribed Heme-positive stools follow-up with GI take Prilosec, notify PCP with bloody stool or vomiting Take high-protein diet/Ensure can twice daily Plan of Treatment: Outpatient follow-[place] [facility] [place] in next 1-2 weeks to discuss rate control versus rhythm control strategy and potential ablation versus cardioversion Outpatient follow-up with primary care physician in 1-2 weeks Assessment: Per discharge summary
--- NOTE | 2021-06-07 14:33 | MHC.CM.PN ---
PT MEDICALLY CLEARED FOR D/C HOME W/[facility] FOR SN AND HOME PT, ACTION FOR TRANSPORT
--- NOTE | 2021-06-07 14:34 | P.F2F_ITS ---
Service Date Service Date: 06/07/21 Encounter Date of encounter: 06/07/21 Reasons for Services Signs and symptoms assessed: Atrial fibrillation, acute acute on chronic congestive heart failure with reduced EF, elevated liver enzymes, generalized weakness, unsteady gait, heme- positive stool Reason for detention: medication management, medication treatment and GI/ assessment Reason for physical therapy: home safety and mobility MD Overseeing Care: Tony Rhodes Homebound: Leaving the home is medically contraindicated at this time without the asist of a device and/or another person due th the listed conditions above and below. Reason homebound: unsteady gait / fall risk and weakness related to hospital stay Certification: Based on the above findings, I certify that this patient is confined to the home and needs intermittent detention care, physical therapy and/or speech therapy, or continues to need occupational therapy. The patient is under my care, and I have initiated the establishment of the plan of care. The patient will be followed by a physician who will periodically review the plan of care.
[2021-06-07 16:00] VITALS: BP 108/71; PULSE 73; RESP 20; TEMP 36.3; O2SAT 98
[2021-06-07] MEDS: Potassium Chloride ER 20 MEQ TAB.ER.PRT PO (16:16)
== END 2021-06-07 17:24 | disposition home health service (06) | DRG 871 ==
LOC: HO.ED 13:15 → HO.EDOVER 15:25 → HO.S3 19:59
PROVIDERS: Hospitalist; Internal Medicine; Nurse Practitioner Family; Registered Nurse; Admitting Provider Family Medicine; Emergency Provider Emergency Medicine; PCP Internal Medicine; Visit Provider Hospitalist
DX: A41.9 Sepsis, unspecified organism (principal); J18.9 Pneumonia, unspecified organism; J96.01 Acute respiratory failure with hypoxia; I50.43 Acute on chronic combined systolic (congestive) and diastolic (congestive) heart failure; J44.0 Chronic obstructive pulmonary disease with (acute) lower respiratory infection; J44.1 Chronic obstructive pulmonary disease with (acute) exacerbation; B37.0 Candidal stomatitis; I48.92 Unspecified atrial flutter; D68.9 Coagulation defect, unspecified; F11.20 Opioid dependence, uncomplicated; F33.1 Major depressive disorder, recurrent, moderate; I42.9 Cardiomyopathy, unspecified; G40.909 Epilepsy, unspecified, not intractable, without status epilepticus; F17.210 Nicotine dependence, cigarettes, uncomplicated; Z71.6 Tobacco abuse counseling; F14.10 Cocaine abuse, uncomplicated; T46.2X5A Adverse effect of other antidysrhythmic drugs, initial encounter; I48.91 Unspecified atrial fibrillation; E87.6 Hypokalemia; I73.9 Peripheral vascular disease, unspecified; I25.10 Atherosclerotic heart disease of native coronary artery without angina pectoris; I95.9 Hypotension, unspecified; Z20.822 Contact with and (suspected) exposure to COVID-19; Z95.1 Presence of aortocoronary bypass graft; Z79.01 Long term (current) use of anticoagulants; Z79.899 Other long term (current) drug therapy
CPT/HCPCS: 36415; 36600; 71045; 71046; 71260; 76700; 80048; 80053; 80076; 80162; 80202; 80307; 81003; 82248; 82272; 82785; 82803; 83605; 83615; 83735; 83880; 84145; 84439; 84443; 84484; 85007; 85025; 85027; 85379; 85610; 85652; 86038; 86039; 86140; 86704; 86706; 86708; 86709; 86769; 86803; 87040; 87340; 87389; 87449; 87493; 87517; 87522; 87536; 87633; 87635; 87899; 92526; 92610; 93005; 93306; 93975; 94640; 94660; 94799; 96361; 96374; 96375; 97161; 97162; 99285; J0696; J1940; J2405; J2543; J2920; J2930; J3370; P9047; Q9967

== ENCOUNTER 2021-06-10 12:53 | Inpatient (IN) | payer MEDICARE, SELFPAY ==
[2021-06-10] VITALS (9 sets, daily range): BP systolic 81–129; BP diastolic 40–95; PULSE 58–80; RESP 15–25; TEMP 37; O2SAT 88–100; BMI 25.0
--- NOTE | ~2021-06-10 | XR_ITS ---
EXAMINATION: XR HIP, LEFT CLINICAL INFORMATION: Trauma, left hip pain COMPARISON: 01/18/2021 TECHNIQUE: Two views of the left hip. AP pelvis. FINDINGS: Alignment across the hips is anatomic. There is mild joint space narrowing of the bilateral hips with some spurring along the acetabula. No acute fracture is seen. Atherosclerotic calcifications are present. Surgical clips overlie the bilateral inguinal regions. Sacroiliac joints and pubic symphysis appear intact. There are degenerative changes of the visualized lower lumbar spine. XR/XR hip LT min 2V IMPRESSION: No acute findings identified. Chronic/degenerative changes as noted above.
--- NOTE | ~2021-06-10 | XR_ITS ---
EXAMINATION: XR CHEST CLINICAL INFORMATION: Pneumonia hypoxia. COMPARISON: Chest 06/02/2021 TECHNIQUE: 2 views of the chest were obtained. FINDINGS: The lungs are well-expanded and clear. The heart size and pulmonary vascularity is normal. There are median sternotomy sutures and mediastinal fabian from previous CABG. No gross bony abnormality seen. XR/XR chest 2V IMPRESSION: Unremarkable chest exam.
--- NOTE | ~2021-06-10 | XR_ITS ---
EXAMINATION: XR HIP, RIGHT XR FEMUR, RIGHT CLINICAL INFORMATION: Trauma, pain COMPARISON: 01/18/2021 TECHNIQUE: 2 views of the right hip. 2 views of the right femur. FINDINGS: Alignment across the hip is anatomic with joint space narrowing and acetabular spurring. No acute fracture identified in the right hip or femur. Alignment at the knee is anatomic. There is extensive vascular calcification in the thigh along with numerous clips. XR/XR femur RT 2V IMPRESSION: No acute findings identified. Chronic/degenerative changes.
--- NOTE | ~2021-06-10 | CT_ITS ---
EXAMINATION: CT HEAD WITHOUT CONTRAST CLINICAL INFORMATION: Altered mental status COMPARISON: CT head 01/18/2021, 01/12/2021 TECHNIQUE: Contiguous axial imaging was performed from the skull base to vertex without intravenous administration of contrast. Coronal and sagittal reformatted images are performed at the CT scanner. [This CT examination was performed using dose optimization techniques as appropriate, variously including the following: *Automated exposure control *Adjustment of mA and/or kV according to patient size (this includes techniques or standardized protocols for targeted exams where dose is matched to indication/reason for exam; i.e. extremities or head) *Use of iterative reconstruction technique] DLP: 666 mGy-cm. 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 Old small infarct in the left frontal lobe.. Old small cortical white matter infarct in the left frontal lobe as well. There is no evidence of acute intracranial hemorrhage or acute territorial infarction. No abnormal mass-effect or midline shift is seen. [place] to white matter differentiation is well preserved. No extra-axial fluid collections are identified. There is generalized global volume loss. There is moderate prominence of the ventricles and the sulci . There is mild hypodensity of the periventricular white matter due to chronic small vessel ischemic disease. There are vascular calcifications of the internal carotid arteries bilaterally. There is no osseous abnormality. The mastoid air cells and visualized portions of the paranasal sinuses are well-aerated. CT/CT head/brain wo con IMPRESSION: 1. No acute intracranial abnormality. 2. 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 No change since prior CT head 01/18/2021
--- NOTE | ~2021-06-10 | XR_ITS ---
EXAMINATION: XR CHEST CLINICAL INFORMATION: Question resolving pneumonia COMPARISON: Chest x-ray 06/10/[address] 05/27/2021 TECHNIQUE: 2 views of the chest were obtained. FINDINGS: Cardiac silhouette is normal in size. Patient is status post CABG. Patchy bilateral airspace disease is demonstrated. There is no lobar consolidation. No pleural effusion or pneumothorax. XR/XR chest 2V IMPRESSION: Patchy bilateral airspace disease concerning for a viral infiltrate. Clinical correlation recommended.
--- NOTE | ~2021-06-10 | CT_ITS ---
EXAMINATION: CT CHEST WITHOUT CONTRAST CLINICAL INFORMATION: Shortness of breath. COMPARISON: Chest radiographs dated 06/15/2021. Chest CT scan dated 05/27/2021. TECHNIQUE: Multidetector volumetric CT imaging of the chest was done. Axial MIP volume rendering provided. Sagittal and coronal reformatted images were obtained. This CT examination was performed using dose optimization techniques as appropriate, variously including the following: *Automated exposure control *Adjustment of mA and/or kV according to patient size (this includes techniques or standardized protocols for targeted exams where dose is matched to indication/reason for exam; i.e. extremities or head) *Use of iterative reconstruction technique DLP: 216 mGy-cm FINDINGS: LUNGS/PLEURA/AIRWAYS: Bilateral patchy groundglass and more consolidated infiltrates are seen bilaterally with mild interval increase. There are small bilateral pleural effusions. The airways are patent. MEDIASTINUM: The thyroid gland is unremarkable. Mild to moderate atherosclerosis in the thoracic aorta without significant dilatation. Moderate to severe coronary artery calcifications. No pericardial effusion. There is been interval enlargement of mediastinal and hilar lymph nodes. Material Attendant lymph nodes are as follows: Right paratracheal: 0.8 cm (previously 0.5 cm), image 13, series 3. Right anterior paratracheal: 1.4 cm (previously 0.9 cm), image 23, series 3. Left anterior mediastinal: 0.9 cm (previously 0.5 cm), image 23, series 3. UPPER ABDOMEN: Moderate to severe abdominal aorta and renal artery atherosclerosis. MUSCULOSKELETAL: Mild thoracic levoscoliosis and mild to moderate multilevel degenerative changes without definite change. SOFT TISSUES: Left axillary bypass graft is visualized without abnormality. CT/CT chest wo con IMPRESSION: 1. Interval worsening of bilateral patchy infiltrates compared to the previous CT scan and correlating with recent radiographs. Small bilateral pleural effusions and increased mediastinal/hilar lymph nodes are likely reactive. Short-term follow-up with chest radiographs is recommended as clinically indicated.
--- NOTE | ~2021-06-10 | XR_ITS ---
EXAMINATION: XR HIP, RIGHT XR FEMUR, RIGHT CLINICAL INFORMATION: Trauma, pain COMPARISON: 01/18/2021 TECHNIQUE: 2 views of the right hip. 2 views of the right femur. FINDINGS: Alignment across the hip is anatomic with joint space narrowing and acetabular spurring. No acute fracture identified in the right hip or femur. Alignment at the knee is anatomic. There is extensive vascular calcification in the thigh along with numerous clips. XR/XR hip RT min 2V IMPRESSION: No acute findings identified. Chronic/degenerative changes.
--- NOTE | 2021-06-10 13:20 | ECG_ITS ---
Test Reason : weakness Blood Pressure : / mmHG Vent. Rate : 064 BPM Atrial Rate : 227 BPM P-R Int : 000 ms QRS Dur : 098 ms QT Int : 434 ms P-R-T Axes : 266 077 202 degrees QTc Int : 447 ms Atrial flutter with variable A-V block ST & T wave abnormality, consider anterolateral ischemia Abnormal ECG When compared with ECG of 02-JUN-2021 01:06, Vent. rate has decreased BY [address] now depressed in Anterior leads T wave inversion more evident in Anterolateral leads Referred By: Mary Hurst Electronically Signed By:ABDIEL VILLARREAL
--- NOTE | 2021-06-10 13:32 | ED_ITS ---
HPI - General Adult General Chief complaint: General Medical <Mary Cruz MAGDIEL Hurst - Last Filed: 06/10/21 18:14> Stated complaint: FALLS <Mary Cruz MAGDIEL Hurst - Last Filed: 06/10/21 18:14> Time Seen by Provider: 06/10/21 13:19 <Mary Nancyming Hurst CNP - Last Filed: 06/10/21 18:14> Source: patient, family and EMS <Mary Nancyming Hurst CNP - Last Filed: 06/10/21 18:14> Mode of arrival: EMS <Mary Cruz MAGDIEL Hurst - Last Filed: 06/10/21 18:14> Limitations: no limitations <Mary Cruz MAGDIEL Hurst - Last Filed: 06/10/21 18:14> History of Present Illness HPI narrative: Patient is a 66-year-old male with a past medical history of COPD not on home O2,hypertension, hyperlipidemia, coronary artery disease status post CABG, peripheral vascular disease, history of CVA, A-fib currently on Eliquis, history of substance abuse; heroin and cocaine, seizure disorder, and tobacco dependence. Patient recently admitted to the hospital with sepsis from multifocal pneumonia and was discharged from the hospital om 06/07/2021 at which point he refused short-term rehab. reports that she is unable to take care of him at home, and additionally she reports a recent fall. On exam, patient denies any complaints and states he is unsure why he is here. He is disoriented to place and time stating the year is 2001 and is unable to state where he is. Denies any recent falls, headache, dizziness/ lightheadedness, chest pain, shortness of breath, palpitations, nausea, vomiting, abdominal pain, weakness, numbness or tingling of the extremities. <Maryjoe Hurst CNP - Last Filed: 06/10/21 18:14> Related Data Home medications: Home Medications Medication Instructions Recorded Confirmed apixaban 5 mg tablet (Eliquis) 5 mg PO BID 01/12/21 06/10/21 pentoxifylline 400 mg 1 tab PO BID 01/18/21 06/10/21 tablet,extended release B-complex with vitamin C 1 tab PO DAILY 05/22/21 06/10/21 multivitamin 1 tab PO DAILY 05/22/21 06/10/21 vitamin E 400 unit capsule 400 unit PO DAILY 06/10/21 06/10/21 Previous Rx's Medication Instructions Recorded levetiracetam 500 mg tablet 500 mg PO BID #60 tab 01/27/21 dextromethorphan-guaifenesin 10 10 ml PO TID #240 ml 06/05/21 mg-100 mg/5 mL oral syrup digoxin 125 mcg (0.125 mg) tablet 0.125 mg PO Q2D #30 tab 06/05/21 escitalopram oxalate 10 mg tablet 10 mg PO DAILY #30 tab 06/05/21 metoprolol succinate 100 mg 100 mg PO DAILY #30 tab 06/05/21 tablet,extended release 24 hr nicotine 21 mg/24 hr daily 21 mg TRANSDERMAL DAILY #21 ea 06/05/21 transdermal patch omeprazole 40 mg capsule,delayed 40 mg PO DAILY@0630 #30 cap 06/05/21 release doxycycline hyclate 100 mg tablet 100 mg PO Q12H #6 tab 06/07/21 <Mary Hurst CNP - Last Filed: 06/10/21 18:14> Allergies/adverse reactions: Allergies Allergy/AdvReac Type Severity Reaction Status Date / Time No Known Allergies Allergy Unverified 01/12/21 01:03 <Mary Hurst CNP - Last Filed: 06/10/21 18:14> Review of Systems Verdana 4l Review of Systems: Verdana 4d [place] 4Bd Constitutional: [place] 4d No weight loss, fever, chills, weakness or fatigue. [place] 4Bd HEENT: [place] 4d No visual loss, blurred vision, double vision or yellow sclera. No hearing loss, sneezing, congestion, runny nose or sore throat. ArialArial 4Bd Skin: No rash or itching. Cardiovascular: No chest pain, chest pressure or chest discomfort. No palpitations or pedal edema. Respiratory: No shortness of breath, cough or sputum production. Gastrointestinal: No anorexia, nausea, vomiting or diarrhea. No abdominal pain or blood in stool. Genitourinary: No burning micturition. No urinary frequency or incontinence. Neurologic: No headache, dizziness, syncope, unilateral weakness, ataxia, numbness or tingling in the extremities. No change in bowel or bladder control. Musculoskeletal: No muscle pain, back pain, joint pain or stiffness. Hematologic: No bleeding or bruising. Lymphatics: No enlarged lymph nodes. Psychiatric:No depression or anxiety. Endocrine: No polyuria or polydipsia. <Mary Hurst CNP - Last Filed: 06/10/21 18:14> [facility] Past Medical History Attestation statement: The following information was validated with the patient. <Mary Hurst CNP - Last Filed: 06/10/21 18:14> Source: old records reviewed and obtained from family <Mary Hurst CNP - Last Filed: 06/10/21 18:14> Medical History: Medical History Acute combined systolic and diastolic congestive heart failure Atrial fibrillation Atrial flutter Atrial flutter CAD (coronary artery disease) Cardiac arrest Cardiomyopathy CHF (congestive heart failure) Cocaine abuse with intoxication COPD (chronic obstructive pulmonary disease) Coronary bypass graft mechanical complication Drug abuse 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 Heroin use History of hemorrhagic cerebrovascular accident (CVA) without residual deficits Hyperlipemia Leukocytosis Opioid use disorder Paroxysmal atrial fibrillation Pneumonia Pneumonitis PVD (peripheral vascular disease) Seizure disorder Seizure-like activity Subclavian arterial stenosis Toxic encephalopathy <Mary Hurst CNP - Last Filed: 06/10/21 18:14> Surgical History: Surgical History S/P CABG x 2 <Mary Hurst CNP - Last Filed: 06/10/21 18:14> Social History Social History: Social History Household Members: Spouse Housing: House Do you presently have visiting nurse or other home services: No Unable to assess alcohol history related to: Unable to respond Alcohol intake: never Patient Tobacco Use Status: Never used Tobacco Tobacco use type: Cigarette Cigarette Packs Per Day: 2 Cigarettes Per Day: 40.0 e-Cigarette/Vaping Use: Never Used Second Hand Smoke Exposure: Yes Use of substances other than those prescribed or required for medical reasons: Yes Substance Use Type: Heroin Advance Directives: Yes Advance Directives on File: Yes Advance Directives Date on File: 01/12/21 service: No Current occupational status: retired <Mary Hurst CNP - Last Filed: 06/10/21 18:14> Physical Exam Verdana 4l Vital Signs: Verdana 4d Verdana 4d Vital Signs: Verdana 4d Verdana 4Bd Last Vital Signs Verdana 4d Glass Calibrator New 4d Glass Calibrator New 4d Temp 98.4 F 06/15/21 07:00 Glass Calibrator New 4d Pulse 65 06/15/21 08:09 Glass Calibrator New 4d Resp 22 H 06/15/21 07:00 BP 96/52 L 06/15/21 08:09 Pulse Ox 95 06/15/21 07:00 BMI result Body Mass Index 25.0 Vital signs have been reviewed and appeared to be correct. Blood pressure initially low 84/42. Heart rate normal.? Respiration rate normal. Temperature normal.? Oxygen saturation initially low 90% on room air placed on 2 L via nasal cannula improved to 98% <Mary Hurst CNP - Last Filed: 06/10/21 18:14> Vital Signs: Last Vital Signs Temp 98.4 F 06/15/21 07:00 Pulse 65 06/15/21 08:09 Resp H 06/15/21 07:00 BP 96/52 L 06/15/21 08:09 Pulse Ox 95 06/15/21 07:00 BMI result Body Mass Index 25.0 <MAXIM Gutierres - Last Filed: 06/10/21 19:41> Vital Signs: Last Vital Signs Temp 98.4 F 06/15/21 07:00 Pulse 65 06/15/21 08:09 Resp H 06/15/21 07:00 BP 96/52 L 06/15/21 08:09 Pulse Ox 95 06/15/21 07:00 BMI result Body Mass Index 25.0 <Rina Valentin NP - Last Filed: 06/11/21 16:14> Vital Signs: Last Vital Signs Temp 98.4 F 06/15/21 07:00 Pulse 65 06/15/21 08:09 Resp H 06/15/21 07:00 BP 96/52 L 06/15/21 08:09 Pulse Ox 95 06/15/21 07:00 BMI result Body Mass Index 25.0 <MAXIM Ge - Last Filed: 06/14/21 19:15> Vital Signs: Last Vital Signs Temp 98.4 F 06/15/21 07:00 Pulse 65 06/15/21 08:09 Resp 22 H 06/15/21 07:00 BP 96/52 L 06/15/21 08:09 Pulse Ox 95 06/15/21 07:00 BMI result Body Mass Index 25.0 <MAXIM Bravo - Last Filed: 06/15/21 08:24> Appearance: Alert.?Oriented to person, place and time. No acute distress.?Normal affect. Head: Normocephalic, atraumatic. No head, sinus or TMJ tenderness.? Eyes: Sclera white, conjunctiva pink. PERRL, 3 mm bilaterally. EOMi.?No Nystagmus. Ears: Bilateral ear canals clear, TM visible with good cone of light.? Nose: Nasal mucosa pink and moist with midline septum, nares patent bilaterally.? Mouth/ Throat: Oral mucosa showing dry, with areas of brown/black film, thrush Neck: Normal inspection.? Neck supple.?? CVS: + hypotension. Heart sounds normal. Normal heart rate, irregular rhythm; atrial flutter.? Pulses normal.?? Respiratory: No respiratory distress.? Lung sounds clear to auscultation bilaterally?? Abdomen: Soft and non-tender. Normoactive bowel sounds. No pulsatile mass.?? Skin: Skin pale and dry.? Normal skin turgor.?? Extremities: No lower extremity edema.? No calf ttp? Neuro: Moves all extremities spontaneously. Sensation intact bilaterally. No focal neuro deficits. <Mary Hurst CNP - Last Filed: 06/10/21 18:14> Course Course Course Narrative: Patient is a 66-year-old male presenting to the emergency department from home with 's concern for weakness, falls, inability to care for him at home. During my exam he is hypotensive 84/42, hypoxic 90% on room air, afebrile, not tachycardic irregular rhythm atrial flutter. Maintaining airway and secretions, speech is clear. Given his recent pneumonia, and falls at home in addition to more dynamic instability concern for worsening infection at this time, Zosyn IV ordered in addition to normal saline 30 mg/kg bolus. CBC, CMP, troponin, magnesium, lactic acid, CPK, digoxin level, and blood cultures to be obtained. Chest x-ray and urinalysis to be obtained. Disposition pending results Review of his chart indicates treatment with ceftriaxone and doxycycline with resolution of infiltrates on chest x-raym sent home on prednisone. Patient was discharged on metoprolol, digoxin, apixaban and advised for outpatient cardiology follow-up for rhythm versus rate control versus ablation. FOBT positive, declined further GI workup and was discharged with PPI. <Mary Hurst CNP - Last Filed: 06/10/21 18:14> Reevaluation(s) Reevaluation #1: Lactic acid elevated at 3.5. Liver function tests elevated; total bilirubin 1.2 AST 44 ALT 99 improving since last hospital admission. Troponin is elevated 56.1, will repeat in 3 hours. CBC reveals leukocytosis WBC 16.3 which is down from 22.3 on 06/07/2021, mild anemia with stable hemoglobin and hematocrit. COVID-19 is negative. Chest x-ray is unremarkable no cardiomegaly, pulmonary edema <Mary Hurst CNP - Last Filed: 06/10/21 18:14> Time: 15:01 <Mary Hurst CNP - Last Filed: 06/10/21 18:14> Reevaluation #2: Lactic acid has decreased to 1.3, patient resting in bed, easily arousable, remains disoriented to time and event. Patient in no apparent distress. Blood pressure has improved to 96/48. Repeat troponin is stable at 54. Continues to be hypoxic on room air. CT of the head ordered, results are pending. Patient signed out to Sandy Hardwick, likely require admission inpatient for altered mental status and hypoxia <Mary Hurst CNP - Last Filed: 06/10/21 18:14> Time: 18:05 <Mary Hurst CNP - Last Filed: 06/10/21 18:14> Reevaluation #3: CT of the head showed no acute process. Spoke to Dr. Morley, who agreed to admission. <MAXIM Gutierres - Last Filed: 06/10/21 19:41> Time: 18:54 <MAXIM Gutierres - Last Filed: 06/10/21 19:41> Additional Reevaluation(s): 06/11 1214 -patient is pending physical therapy evaluation and case management involvement. He initially was placed on supplemental oxygen however since 08:00 this morning he has been off oxygen with room air saturations greater than 96%. Per Case Management he is minimally ambulatory at baseline so ambulatory oxygen saturation is not warranted. His medications were reconciled this morning. His vitals are stable. Respiratory even and labored. No complaints from nursing overnight. He did require 1 dose of IV Haldol yesterday for agitation/behavior. He has not required any since. Per Case Management as the patient required 1 dose of p.r.n. Haldol he will be held our emergency department for approximately 48 hours. If medications are required for agitation please attempt oral p.r.n. prior to IM. For continued agitation or multiple prn required please consider p sych consultation for recommendations. Will continue with plan of care. <Rina Valentin NP - Last Filed: 06/11/21 16:14> 06/11 1214 -patient is pending physical therapy evaluation and case management involvement. He initially was placed on supplemental oxygen however since 08:00 this morning he has been off oxygen with room air saturations greater than 96%. Per Case Management he is minimally ambulatory at baseline so ambulatory oxygen saturation is not warranted. His medications were reconciled this morning. His vitals are stable. Respiratory even and labored. No complaints from nursing overnight. He did require 1 dose of IV Haldol yesterday for agitation/behavior. He has not required any since. Per Case Management as the patient required 1 dose of p.r.n. Haldol he will be held our emergency department for approximately 48 hours. If medications are required for agitation please attempt oral p.r.n. prior to IM. For continued agitation or multiple prn required please consider psych consultation for recommendations. Will continue with plan of care. 06/12/2021 Physician observation continued and patient is not in any distress. patient is case managment <MAXIM Ge - Last Filed: 06/14/21 19:15> Consultations Consultation #1: 06/15/2021 Physician observation continues. Patient in no apparent distress. Patient resting comfortably with regularly even respirations on 2 L of oxygen satting 98%. Patient was tachycardic earlier this morning, his heart rate is normal now at 65. His digoxin and metoprolol were held yesterday. His tachycardia resolved once both those medicines were given today Patient's blood pressure is 97/59, per prior provider note, patient systolic runs at 100 normally. We will watch blood pressure. Patient has not had labs drawn in 4 days. Will get labs, chest x-ray, rectal temp Patient was discharged from [facility] on June 07, 2021 for sepsis pneumonia. He is a substance user of cocaine and heroin. He fell at home and his can not care for him at home. Case management has expanded their bed search. There is a question of rehab placement on Friday Will continue to monitor. <MAXIM Bravo - Last Filed: 06/15/21 08:24> Time: 08:19 <MAXIM Bravo - Last Filed: 06/15/21 08:24> Procedures EJ/Peripheral Line Arm L: Time Out Performed: Yes <Mary Hurst CNP - Last Filed: 06/10/21 18:14> Skin Cleansed in Sterile Fashion: Yes <Mary Hurst CNP - Last Filed: 06/10/21 18:14> Size (gauge): 20 <Mary Hurst CNP - Last Filed: 06/10/21 18:14> IV Secured and Dressing Applied: Yes <Mray Hurst CNP - Last Filed: 06/10/21 18:14> Patient Tolerated Procedure: well and no complications <Mary Hurst CNP - Last Filed: 06/10/21 18:14> Additional Comments: US guided line placed by Dr. Vivas <Mary Hurst CNP - Last Filed: 06/10/21 18:14> Medical Decision Making Medical Records Medical records reviewed: Yes I reviewed the patient's medical records. <Mary Hurst CNP - Last Filed: 06/10/21 18:14> Lab Data Lab results reviewed: Yes I reviewed the patient's lab results. <Mary Hurst CNP - Last Filed: 06/10/21 18:14> Result diagrams: : 06/11/21 19:04 06/11/21 19:04 <Mary Hurst, SLED [employer]ER - Last Filed: 06/10/21 18:14> Labs: Lab Results 06/10/21 06/10/21 06/10/21 Range/Units 13:43 13:56 13:57 WBC 16.3 H (4.8-10.8) X10*3/uL RBC 4.74 (4.60-5.80) X10*6/uL Hgb 13.5 L (14.0-18.0) g/dl Hct 40.6 L (42.0-52.0) % MCV 85.7 (80.0-98.0) fL MCH 28.5 (27.0-33.0) pg MCHC 33.3 (31.0-36.0) g/dl RDW 19.8 H (11.0-16.0) % Plt Count 202 (160-400) X10*3/uL MPV 10.6 (9.4-12.4) fL Immature Gran % (Auto) 1.0 H (0.0-0.4) % Neut % (Auto) 81.8 H (45-73) % Lymph % (Auto) 10.7 L (20-40) % Cooke % (Auto) 6.3 (2-11) % Eos % (Auto) 0.0 (0-4) % Baso % (Auto) 0.2 (0-2) % Lymph # (Auto) 1.7 (1.2-4.9) X10*3/uL Cooke # (Auto) 1.0 (0.1-1.2) X10*3/uL Eos # (Auto) 0.0 (0.0-0.4) X10*3/uL Baso # (Auto) 0.0 (0.0-0.2) X10*3/uL Abs Immat Gran (auto) 0.16 H (0.00-0.03) X10*3/uL Absolute Neuts (auto) 13.4 H (2.0-8.3) x10*3/uL Absolute Nucleated RBC 0.000 (0.0-0.012) X10*3/uL Nucleated RBC % (auto) 0.0 (0.0-0.2) /100WBC Sodium Potassium Chloride Carbon Dioxide Anion Gap BUN Creatinine Estim Creat Clear Calc Estimated GFR Random Glucose Lactic Acid 3.5 H* (0.5-2.0) mmol/L Lactic Acid F/U @ 2Hr (0.5-2.0) mmol/L Calcium Magnesium Total Bilirubin AST ALT Alkaline Phosphatase Total Creatine Kinase (38-174) U/L Troponin I High Sens (<3.5-35.0) ng/L Total Protein Albumin Urine Color Urine Appearance Urine pH (5.0-8.0) Ur Specific Hodges (1.005-1.025) Urine Protein (NEG-TRACE) MG/DL Urine Glucose (UA) (NEG) MG/DL Urine Ketones (NEG) MG/DL Urine Blood (NEG) Urine Nitrite (NEG) Ur Leukocyte Esterase (NEG) Digoxin (0.8-2.0) ng/mL Urine Opiates Screen (Not Detect) Urine Fentanyl Screen (Not Detect) Ur Barbiturates Screen (Not Detect) Ur Phencyclidine Scrn (Not Detect) Ur Amphetamines Screen (Not Detect) U Benzodiazepines Scrn (Not Detect) Urine Cocaine Screen (Not Detect) U Marijuana (THC) Screen (Not Detect) COVID-19 (TIFFANIE) Negative (Negative) COVID-19 Clin Com See Note 06/10/21 06/10/21 06/10/21 Range/Units 13:57 13:57 13:57 WBC (4.8-10.8) X10*3/uL RBC (4.60-5.80) X10*6/uL Hgb (14.0-18.0) g/dl Hct (42.0-52.0) % MCV (80.0-98.0) fL MCH (27.0-33.0) pg MCHC (31.0-36.0) g/dl RDW (11.0-16.0) % Plt Count (160-400) X10*3/uL MPV (9.4-12.4) fL Immature Gran % (Auto) (0.0-0.4) % Neut % (Auto) (45-73) % Lymph % (Auto) (20-40) % Cooke % (Auto) (2-11) % Eos % (Auto) (0-4) % Baso % (Auto) (0-2) % Lymph # (Auto) (1.2-4.9) X10*3/uL Cooke # (Auto) (0.1-1.2) X10*3/uL Eos # (Auto) (0.0-0.4) X10*3/uL Baso # (Auto) (0.0-0.2) X10*3/uL Abs Immat Gran (auto) (0.00-0.03) X10*3/uL Absolute Neuts (auto) (2.0-8.3) x10*3/uL Absolute Nucleated RBC (0.0-0.012) X10*3/uL Nucleated RBC % (auto) (0.0-0.2) /100WBC Sodium Cancelled 144 Potassium Cancelled 4.5 D Chloride Cancelled 107 Carbon Dioxide Cancelled 24 Anion Gap Cancelled 18 BUN Cancelled 15 Creatinine Cancelled 1.09 Estim Creat Clear Calc Cancelled 61.4 Estimated GFR Cancelled > 60 Random Glucose Cancelled 113 Lactic Acid (0.5-2.0) mmol/L Lactic Acid F/U @ 2Hr (0.5-2.0) mmol/L Calcium Cancelled 8.5 Magnesium Cancelled 2.2 Total Bilirubin Cancelled 1.2 H AST Cancelled 44 H ALT Cancelled 99 H Alkaline Phosphatase Cancelled 101 Total Creatine Kinase 114 (38-174) U/L Troponin I High Sens 56.1 H D (<3.5-35.0) ng/L Total Protein Cancelled 5.9 L D Albumin Cancelled 2.9 L Urine Color Urine Appearance Urine pH (5.0-8.0) Ur Specific Hodges (1.005-1.025) Urine Protein (NEG-TRACE) MG/DL Urine Glucose (UA) (NEG) MG/DL Urine Ketones (NEG) MG/DL Urine Blood (NEG) Urine Nitrite (NEG) Ur Leukocyte Esterase (NEG) Digoxin (0.8-2.0) ng/mL Urine Opiates Screen (Not Detect) Urine Fentanyl Screen (Not Detect) Ur Barbiturates Screen (Not Detect) Ur Phencyclidine Scrn (Not Detect) Ur Amphetamines Screen (Not Detect) U Benzodiazepines Scrn (Not Detect) Urine Cocaine Screen (Not Detect) U Marijuana (THC) (Not Detect) Screen COVID-19 (TIFFANIE) (Negative) COVID-19 Clin Com 06/10/21 06/10/21 06/10/21 Range/Units 14:18 16:34 17:18 WBC (4.8-10.8) X10*3/uL RBC (4.60-5.80) X10*6/uL Hgb (14.0-18.0) g/dl Hct (42.0-52.0) % MCV (80.0-98.0) fL MCH (27.0-33.0) pg MCHC (31.0-36.0) g/dl RDW (11.0-16.0) % Plt Count (160-400) X10*3/uL MPV (9.4-12.4) fL Immature Gran % (Auto) (0.0-0.4) % Neut % (Auto) (45-73) % Lymph % (Auto) (20-40) % Cooke % (Auto) (2-11) % Eos % (Auto) (0-4) % Baso % (Auto) (0-2) % Lymph # (Auto) (1.2-4.9) X10*3/uL [place]oke # (Auto) (0.1-1.2) X10*3/uL Eos # (Auto) (0.0-0.4) X10*3/uL Baso # (Auto) (0.0-0.2) X10*3/uL Abs Immat Gran (auto) (0.00-0.03) X10*3/uL Absolute Neuts (auto) (2.0-8.3) x10*3/uL Absolute Nucleated RBC (0.0-0.012) X10*3/uL Nucleated RBC % (auto) (0.0-0.2) /100WBC Sodium Potassium Chloride Carbon Dioxide Anion Gap BUN Creatinine Estim Creat Clear Calc Estimated GFR Random Glucose Lactic Acid (0.5-2.0) mmol/L Lactic Acid F/U @ 2Hr 1.3 (0.5-2.0) mmol/L Calcium Magnesium Total Bilirubin AST ALT Alkaline Phosphatase Total Creatine Kinase (38-174) U/L Troponin I High Sens 54.1 H (<3.5-35.0) ng/L Total Protein Albumin Urine Color Urine Appearance Urine pH (5.0-8.0) Ur Specific Hodges (1.005-1.025) Urine Protein (NEG-TRACE) MG/DL Urine Glucose (UA) (NEG) MG/DL Urine Ketones (NEG) MG/DL Urine Blood (NEG) Urine Nitrite (NEG) Ur Leukocyte Esterase (NEG) Digoxin 0.9 (0.8-2.0) ng/mL Urine Opiates Screen (Not Detect) Urine Fentanyl Screen (Not Detect) Ur Barbiturates Screen (Not Detect) Ur Phencyclidine Scrn (Not Detect) Ur Amphetamines Screen (Not Detect) U Benzodiazepines Scrn (Not Detect) Urine Cocaine Screen (Not Detect) U Marijuana (THC) Screen (Not Detect) COVID-19 (TIFFANIE) (Negative) COVID-19 Clin Com 06/11/21 06/11/21 06/11/21 Range/Units 04:28 04:28 19:04 WBC 16.3 H (4.8-10.8) X10*3/uL RBC 4.23 L (4.60-5.80) X10*6/uL Hgb 12.3 L (14.0-18.0) g/dl Hct 36.9 L (42.0-52.0) % MCV 87.2 (80.0-98.0) fL MCH 29.1 (27.0-33.0) pg MCHC 33.3 (31.0-36.0) g/dl RDW 20.4 H (11.0-16.0) % Plt Count 182 (160-400) X10*3/uL MPV 9.8 (9.4-12.4) fL Immature Gran % (Auto) 0.8 H (0.0-0.4) % Neut % (Auto) 82.8 H (45-73) % Lymph % (Auto) 9.1 L (20-40) % Cooke % (Auto) 7.0 (2-11) % Eos % (Auto) 0.1 (0-4) % Baso % (Auto) 0.2 (0-2) % Lymph # (Auto) 1.5 (1.2-4.9) X10*3/uL Cooke # (Auto) 1.1 (0.1-1.2) X10*3/uL Eos # (Auto) 0.0 (0.0-0.4) X10*3/uL Baso # (Auto) 0.0 (0.0-0.2) X10*3/uL Abs Immat Gran (auto) 0.13 H (0.00-0.03) X10*3/uL Absolute Neuts (auto) 13.5 H (2.0-8.3) x10*3/uL Absolute Nucleated RBC 0.000 (0.0-0.012) X10*3/uL Nucleated RBC % (auto) 0.0 (0.0-0.2) /100WBC Sodium Potassium Chloride Carbon Dioxide Anion Gap BUN Creatinine Estim Creat Clear Calc Estimated GFR Random Glucose Lactic Acid (0.5-2.0) mmol/L Lactic Acid F/U @ 2Hr (0.5-2.0) mmol/L Calcium Magnesium Total Bilirubin AST ALT Alkaline Phosphatase Total Creatine Kinase (38-174) U/L Troponin I High Sens (<3.5-35.0) ng/L Total Protein Albumin Urine Color YELLOW Urine Appearance CLEAR Urine pH 7.0 (5.0-8.0) Ur Specific Hodges 1.015 (1.005-1.025) Urine Protein TRACE (NEG-TRACE) MG/DL Urine Glucose (UA) NEG (NEG) MG/DL Urine Ketones 5 (NEG) MG/DL Urine Blood NEG (NEG) Urine Nitrite NEG (NEG) Ur Leukocyte Esterase NEG (NEG) Digoxin (0.8-2.0) ng/mL Urine Opiates Screen POSITIVE H (Not Detect) Urine Fentanyl Screen POSITIVE H (Not Detect) Ur Barbiturates Screen Not Detected (Not Detect) Ur Phencyclidine Scrn Not Detected (Not Detect) Ur Amphetamines Screen Not Detected (Not Detect) U Benzodiazepines Scrn Not Detected (Not Detect) Urine Cocaine Screen Not Detected (Not Detect) U Marijuana (THC) Not Detected (Not Detect) Screen COVID-19 (TIFFANIE) (Negative) COVID-19 Clin Com 06/11/21 Range/Units 19:04 WBC (4.8-10.8) X10*3/uL RBC (4.60-5.80) X10*6/uL Hgb (14.0-18.0) g/dl Hct (42.0-52.0) % MCV (80.0-98.0) fL MCH (27.0-33.0) pg MCHC (31.0-36.0) g/dl RDW (11.0-16.0) % Plt Count (160-400) X10*3/uL MPV (9.4-12.4) fL Immature Gran % (Auto) (0.0-0.4) % Neut % (Auto) (45-73) % Lymph % (Auto) (20-40) % Cooke % (Auto) (2-11) % Eos % (Auto) (0-4) % Baso % (Auto) (0-2) % Lymph # (Auto) (1.2-4.9) X10*3/uL Cooke # (Auto) (0.1-1.2) X10*3/uL Eos # (Auto) (0.0-0.4) X10*3/uL Baso # (Auto) (0.0-0.2) X10*3/uL Abs Immat Gran (auto) (0.00-0.03) X10*3/uL Absolute Neuts (auto) (2.0-8.3) x10*3/uL Absolute Nucleated RBC (0.0-0.012) X10*3/uL Nucleated RBC % (auto) (0.0-0.2) /100WBC Sodium 142 Potassium 4.2 Chloride 113 H Carbon Dioxide 22 Anion Gap 11 L BUN 13 Creatinine 1.05 Estim Creat Clear Calc 63.8 Estimated GFR > 60 Random Glucose 144 H Lactic Acid (0.5-2.0) mmol/L Lactic Acid F/U @ 2Hr (0.5-2.0) mmol/L Calcium 7.7 L D Magnesium Total Bilirubin AST ALT Alkaline Phosphatase Total Creatine Kinase (38-174) U/L Troponin I High Sens (<3.5-35.0) ng/L Total Protein Albumin Urine Color Urine Appearance Urine pH (5.0-8.0) Ur Specific Hodges (1.005-1.025) Urine Protein (NEG-TRACE) MG/DL Urine Glucose (UA) (NEG) MG/DL Urine Ketones (NEG) MG/DL Urine Blood (NEG) Urine Nitrite (NEG) Ur Leukocyte Esterase (NEG) Digoxin (0.8-2.0) ng/mL Urine Opiates Screen (Not Detect) Urine Fentanyl Screen (Not Detect) Ur Barbiturates Screen (Not Detect) Ur Phencyclidine Scrn (Not Detect) Ur Amphetamines Screen (Not Detect) U Benzodiazepines Scrn (Not Detect) Urine Cocaine Screen (Not Detect) U Marijuana (THC) Screen (Not Detect) COVID-19 (TIFFANIE) (Negative) COVID-19 Clin Com <Maryjoe Hurst, [employer]ER - Last Filed: 06/10/21 18:14> Lab Results 06/10/21 06/10/21 06/10/21 Range/Units 13:43 13:56 13:57 WBC 16.3 H (4.8-10.8) X10*3/uL RBC 4.74 (4.60-5.80) X10*6/uL Hgb 13.5 L (14.0-18.0) g/dl Hct 40.6 L (42.0-52.0) % MCV 85.7 (80.0-98.0) fL MCH 28.5 (27.0-33.0) pg MCHC 33.3 (31.0-36.0) g/dl RDW 19.8 H (11.0-16.0) % Plt Count 202 (160-400) X10*3/uL MPV 10.6 (9.4-12.4) fL Immature Gran % (Auto) 1.0 H (0.0-0.4) % Neut % (Auto) 81.8 H (45-73) % Lymph % (Auto) 10.7 L (20-40) % Cooke % (Auto) 6.3 (2-11) % Eos % (Auto) 0.0 (0-4) % Baso % (Auto) 0.2 (0-2) % Lymph # (Auto) 1.7 (1.2-4.9) X10*3/uL [place]oke # (Auto) 1.0 (0.1-1.2) X10*3/uL Eos # (Auto) 0.0 (0.0-0.4) X10*3/uL Baso # (Auto) 0.0 (0.0-0.2) X10*3/uL Abs Immat Gran (auto) 0.16 H (0.00-0.03) X10*3/uL Absolute Neuts (auto) 13.4 H (2.0-8.3) x10*3/uL Absolute Nucleated RBC 0.000 (0.0-0.012) X10*3/uL Nucleated RBC % (auto) 0.0 (0.0-0.2) /100WBC Sodium Potassium Chloride Carbon Dioxide Anion Gap BUN Creatinine Estim Creat Clear Calc Estimated GFR Random Glucose Lactic Acid 3.5 H* (0.5-2.0) mmol/L Lactic Acid F/U @ 2Hr (0.5-2.0) mmol/L Calcium Magnesium Total Bilirubin AST ALT Alkaline Phosphatase Total Creatine Kinase (38-174) U/L Troponin I High Sens (<3.5-35.0) ng/L Total Protein Albumin Urine Color Urine Appearance Urine pH (5.0-8.0) Ur Specific Hodges (1.005-1.025) Urine Protein (NEG-TRACE) MG/DL Urine Glucose (UA) (NEG) MG/DL Urine Ketones (NEG) MG/DL Urine Blood (NEG) Urine Nitrite (NEG) Ur Leukocyte Esterase (NEG) Digoxin (0.8-2.0) ng/mL Urine Opiates Screen (Not Detect) Urine Fentanyl Screen (Not Detect) Ur Barbiturates Screen (Not Detect) Ur Phencyclidine Scrn (Not Detect) Ur Amphetamines Screen (Not Detect) U Benzodiazepines Scrn (Not Detect) Urine Cocaine Screen (Not Detect) U Marijuana (THC) Screen (Not Detect) COVID-19 (TIFFANIE) Negative (Negative) COVID-19 Clin Com See Note 06/10/21 06/10/21 06/10/21 Range/Units 13:57 13:57 13:57 WBC (4.8-10.8) X10*3/uL RBC (4.60-5.80) X10*6/uL Hgb (14.0-18.0) g/dl Hct (42.0-52.0) % MCV (80.0-98.0) fL MCH (27.0-33.0) pg MCHC (31.0-36.0) g/dl RDW (11.0-16.0) % Plt Count (160-400) X10*3/uL MPV (9.4-12.4) fL Immature Gran % (Auto) (0.0-0.4) % Neut % (Auto) (45-73) % Lymph % (Auto) (20-40) % Cooke % (Auto) (2-11) % Eos % (Auto) (0-4) % Baso % (Auto) (0-2) % Lymph # (Auto) (1.2-4.9) X10*3/uL [place] # (Auto) (0.1-1.2) X10*3/uL Eos # (Auto) (0.0-0.4) X10*3/uL Baso # (Auto) (0.0-0.2) X10*3/uL Abs Immat Gran (auto) (0.00-0.03) X10*3/uL Absolute Neuts (auto) (2.0-8.3) x10*3/uL Absolute Nucleated RBC (0.0-0.012) X10*3/uL Nucleated RBC % (auto) (0.0-0.2) /100WBC Sodium Cancelled 144 Potassium Cancelled 4.5 D Chloride Cancelled 107 Carbon Dioxide Cancelled 24 Anion Gap Cancelled 18 BUN Cancelled 15 Creatinine Cancelled 1.09 Estim Creat Clear Calc Cancelled 61.4 Estimated GFR Cancelled > 60 Random Glucose Cancelled 113 Lactic Acid (0.5-2.0) mmol/L Lactic Acid F/U @ 2Hr (0.5-2.0) mmol/L Calcium Cancelled 8.5 Magnesium Cancelled 2.2 Total Bilirubin Cancelled 1.2 H AST Cancelled 44 H ALT Cancelled 99 H Alkaline Phosphatase Cancelled 101 Total Creatine Kinase 114 (38-174) U/L Troponin I High Sens 56.1 H D (<3.5-35.0) ng/L Total Protein Cancelled 5.9 L D Albumin Cancelled 2.9 L Urine Color Urine Appearance Urine pH (5.0-8.0) Ur Specific Hodges (1.005-1.025) Urine Protein (NEG-TRACE) MG/DL Urine Glucose (UA) (NEG) MG/DL Urine Ketones (NEG) MG/DL Urine Blood (NEG) Urine Nitrite (NEG) Ur Leukocyte Esterase (NEG) Digoxin (0.8-2.0) ng/mL Urine Opiates Screen (Not Detect) Urine Fentanyl Screen (Not Detect) Ur Barbiturates Screen (Not Detect) Ur Phencyclidine Scrn (Not Detect) Ur Amphetamines Screen (Not Detect) U Benzodiazepines Scrn (Not Detect) Urine Cocaine Screen (Not Detect) U Marijuana (THC) (Not Detect) Screen COVID-19 (TIFFANIE) (Negative) COVID-19 Clin Com 06/10/21 06/10/21 06/10/21 Range/Units 14:18 16:34 17:18 WBC (4.8-10.8) X10*3/uL RBC (4.60-5.80) X10*6/uL Hgb (14.0-18.0) g/dl Hct (42.0-52.0) % MCV (80.0-98.0) fL MCH (27.0-33.0) pg MCHC (31.0-36.0) g/dl RDW (11.0-16.0) % Plt Count (160-400) X10*3/uL MPV (9.4-12.4) fL Immature Gran % (Auto) (0.0-0.4) % Neut % (Auto) (45-73) % Lymph % (Auto) (20-40) % Cooke % (Auto) (2-11) % Eos % (Auto) (0-4) % Baso % (Auto) (0-2) % Lymph # (Auto) (1.2-4.9) X10*3/uL [place] # (Auto) (0.1-1.2) X10*3/uL Eos # (Auto) (0.0-0.4) X10*3/uL Baso # (Auto) (0.0-0.2) X10*3/uL Abs Immat Gran (auto) (0.00-0.03) X10*3/uL Absolute Neuts (auto) (2.0-8.3) x10*3/uL Absolute Nucleated RBC (0.0-0.012) X10*3/uL Nucleated RBC % (auto) (0.0-0.2) /100WBC Sodium Potassium Chloride Carbon Dioxide Anion Gap BUN Creatinine Estim Creat Clear Calc Estimated GFR Random Glucose Lactic Acid (0.5-2.0) mmol/L Lactic Acid F/U @ 2Hr 1.3 (0.5-2.0) mmol/L Calcium Magnesium Total Bilirubin AST ALT Alkaline Phosphatase Total Creatine Kinase (38-174) U/L Troponin I High Sens 54.1 H (<3.5-35.0) ng/L Total Protein Albumin Urine Color Urine Appearance Urine pH (5.0-8.0) Ur Specific Hodges (1.005-1.025) Urine Protein (NEG-TRACE) MG/DL Urine Glucose (UA) (NEG) MG/DL Urine Ketones (NEG) MG/DL Urine Blood (NEG) Urine Nitrite (NEG) Ur Leukocyte Esterase (NEG) Digoxin 0.9 (0.8-2.0) ng/mL Urine Opiates Screen (Not Detect) Urine Fentanyl Screen (Not Detect) Ur Barbiturates Screen (Not Detect) Ur Phencyclidine Scrn (Not Detect) Ur Amphetamines Screen (Not Detect) U Benzodiazepines Scrn (Not Detect) Urine Cocaine Screen (Not Detect) U Marijuana (THC) Screen (Not Detect) COVID-19 (TIFFANIE) (Negative) COVID-19 Clin Com 06/11/21 06/11/21 06/11/21 Range/Units 04:28 04:28 19:04 WBC 16.3 H (4.8-10.8) X10*3/uL RBC 4.23 L (4.60-5.80) X10*6/uL Hgb 12.3 L (14.0-18.0) g/dl Hct 36.9 L (42.0-52.0) % MCV 87.2 (80.0-98.0) fL MCH 29.1 (27.0-33.0) pg MCHC 33.3 (31.0-36.0) g/dl RDW 20.4 H (11.0-16.0) % Plt Count 182 (160-400) X10*3/uL MPV 9.8 (9.4-12.4) fL Immature Gran % (Auto) 0.8 H (0.0-0.4) % Neut % (Auto) 82.8 H (45-73) % Lymph % (Auto) 9.1 L (20-40) % Cooke % (Auto) 7.0 (2-11) % Eos % (Auto) 0.1 (0-4) % Baso % (Auto) 0.2 (0-2) % Lymph # (Auto) 1.5 (1.2-4.9) X10*3/uL [place]oke # (Auto) 1.1 (0.1-1.2) X10*3/uL Eos # (Auto) 0.0 (0.0-0.4) X10*3/uL Baso # (Auto) 0.0 (0.0-0.2) X10*3/uL Abs Immat Gran (auto) 0.13 H (0.00-0.03) X10*3/uL Absolute Neuts (auto) 13.5 H (2.0-8.3) x10*3/uL Absolute Nucleated RBC 0.000 (0.0-0.012) X10*3/uL Nucleated RBC % (auto) 0.0 (0.0-0.2) /100WBC Sodium Potassium Chloride Carbon Dioxide Anion Gap BUN Creatinine Estim Creat Clear Calc Estimated GFR Random Glucose Lactic Acid (0.5-2.0) mmol/L Lactic Acid F/U @ 2Hr (0.5-2.0) mmol/L Calcium Magnesium Total Bilirubin AST ALT Alkaline Phosphatase Total Creatine Kinase (38-174) U/L Troponin I High Sens (<3.5-35.0) ng/L Total Protein Albumin Urine Color YELLOW Urine Appearance CLEAR Urine pH 7.0 (5.0-8.0) Ur Specific Hodges 1.015 (1.005-1.025) Urine Protein TRACE (NEG-TRACE) MG/DL Urine Glucose (UA) NEG (NEG) MG/DL Urine Ketones 5 (NEG) MG/DL Urine Blood NEG (NEG) Urine Nitrite NEG (NEG) Ur Leukocyte Esterase NEG (NEG) Digoxin (0.8-2.0) ng/mL Urine Opiates Screen POSITIVE H (Not Detect) Urine Fentanyl Screen POSITIVE H (Not Detect) Ur Barbiturates Screen Not Detected (Not Detect) Ur Phencyclidine Scrn Not Detected (Not Detect) Ur Amphetamines Screen Not Detected (Not Detect) U Benzodiazepines Scrn Not Detected (Not Detect) Urine Cocaine Screen Not Detected (Not Detect) U Marijuana (THC) Not Detected (Not Detect) Screen COVID-19 (TIFFANIE) (Negative) COVID-19 Clin Com 06/11/21 Range/Units 19:04 WBC (4.8-10.8) X10*3/uL RBC (4.60-5.80) X10*6/uL Hgb (14.0-18.0) g/dl Hct (42.0-52.0) % MCV (80.0-98.0) fL MCH (27.0-33.0) pg MCHC (31.0-36.0) g/dl RDW (11.0-16.0) % Plt Count (160-400) X10*3/uL MPV (9.4-12.4) fL Immature Gran % (Auto) (0.0-0.4) % Neut % (Auto) (45-73) % Lymph % (Auto) (20-40) % [place]oke % (Auto) (2-11) % Eos % (Auto) (0-4) % Baso % (Auto) (0-2) % Lymph # (Auto) (1.2-4.9) X10*3/uL [place] # (Auto) (0.1-1.2) X10*3/uL Eos # (Auto) (0.0-0.4) X10*3/uL Baso # (Auto) (0.0-0.2) X10*3/uL Abs Immat Gran (auto) (0.00-0.03) X10*3/uL Absolute Neuts (auto) (2.0-8.3) x10*3/uL Absolute Nucleated RBC (0.0-0.012) X10*3/uL Nucleated RBC % (auto) (0.0-0.2) /100WBC Sodium 142 Potassium 4.2 Chloride 113 H Carbon Dioxide 22 Anion Gap 11 L BUN 13 Creatinine 1.05 Estim Creat Clear Calc 63.8 Estimated GFR > 60 Random Glucose 144 H Lactic Acid (0.5-2.0) mmol/L Lactic Acid F/U @ 2Hr (0.5-2.0) mmol/L Calcium 7.7 L D Magnesium Total Bilirubin AST ALT Alkaline Phosphatase Total Creatine Kinase (38-174) U/L Troponin I High Sens (<3.5-35.0) ng/L Total Protein Albumin Urine Color Urine Appearance Urine pH (5.0-8.0) Ur Specific Hodges (1.005-1.025) Urine Protein (NEG-TRACE) MG/DL Urine Glucose (UA) (NEG) MG/DL Urine Ketones (NEG) MG/DL Urine Blood (NEG) Urine Nitrite (NEG) Ur Leukocyte Esterase (NEG) Digoxin (0.8-2.0) ng/mL Urine Opiates Screen (Not Detect) Urine Fentanyl Screen (Not Detect) Ur Barbiturates Screen (Not Detect) Ur Phencyclidine Scrn (Not Detect) Ur Amphetamines Screen (Not Detect) U Benzodiazepines Scrn (Not Detect) Urine Cocaine Screen (Not Detect) U Marijuana (THC) Screen (Not Detect) COVID-19 (TIFFANIE) (Negative) COVID-19 Clin Com <MAXIM Gutierres - Last Filed: 06/10/21 19:41> Lab Results 06/10/21 06/10/21 06/10/21 Range/Units 13:43 13:56 13:57 WBC 16.3 H (4.8-10.8) X10*3/uL RBC 4.74 (4.60-5.80) X10*6/uL Hgb 13.5 L (14.0-18.0) g/dl Hct 40.6 L (42.0-52.0) % MCV 85.7 (80.0-98.0) fL MCH 28.5 (27.0-33.0) pg MCHC 33.3 (31.0-36.0) g/dl RDW 19.8 H (11.0-16.0) % Plt Count 202 (160-400) X10*3/uL MPV 10.6 (9.4-12.4) fL Immature Gran % (Auto) 1.0 H (0.0-0.4) % Neut % (Auto) 81.8 H (45-73) % Lymph % (Auto) 10.7 L (20-40) % Cooke % (Auto) 6.3 (2-11) % Eos % (Auto) 0.0 (0-4) % Baso % (Auto) 0.2 (0-2) % Lymph # (Auto) 1.7 (1.2-4.9) X10*3/uL [place]oke # (Auto) 1.0 (0.1-1.2) X10*3/uL Eos # (Auto) 0.0 (0.0-0.4) X10*3/uL Baso # (Auto) 0.0 (0.0-0.2) X10*3/uL Abs Immat Gran (auto) 0.16 H (0.00-0.03) X10*3/uL Absolute Neuts (auto) 13.4 H (2.0-8.3) x10*3/uL Absolute Nucleated RBC 0.000 (0.0-0.012) X10*3/uL Nucleated RBC % (auto) 0.0 (0.0-0.2) /100WBC Sodium Potassium Chloride Carbon Dioxide Anion Gap BUN Creatinine Estim Creat Clear Calc Estimated GFR Random Glucose Lactic Acid 3.5 H* (0.5-2.0) mmol/L Lactic Acid F/U @ 2Hr (0.5-2.0) mmol/L Calcium Magnesium Total Bilirubin AST ALT Alkaline Phosphatase Total Creatine Kinase (38-174) U/L Troponin I High Sens (<3.5-35.0) ng/L Total Protein Albumin Urine Color Urine Appearance Urine pH (5.0-8.0) Ur Specific Hodges (1.005-1.025) Urine Protein (NEG-TRACE) MG/DL Urine Glucose (UA) (NEG) MG/DL Urine Ketones (NEG) MG/DL Urine Blood (NEG) Urine Nitrite (NEG) Ur Leukocyte Esterase (NEG) Digoxin (0.8-2.0) ng/mL Urine Opiates Screen (Not Detect) Urine Fentanyl Screen (Not Detect) Ur Barbiturates Screen (Not Detect) Ur Phencyclidine Scrn (Not Detect) Ur Amphetamines Screen (Not Detect) U Benzodiazepines Scrn (Not Detect) Urine Cocaine Screen (Not Detect) U Marijuana (THC) Screen (Not Detect) COVID-19 (TIFFANIE) Negative (Negative) COVID-19 Clin Com See Note 06/10/21 06/10/21 06/10/21 Range/Units 13:57 13:57 13:57 WBC (4.8-10.8) X10*3/uL RBC (4.60-5.80) X10*6/uL Hgb (14.0-18.0) g/dl Hct (42.0-52.0) % MCV (80.0-98.0) fL MCH (27.0-33.0) pg MCHC (31.0-36.0) g/dl RDW (11.0-16.0) % Plt Count (160-400) X10*3/uL MPV (9.4-12.4) fL Immature Gran % (Auto) (0.0-0.4) % Neut % (Auto) (45-73) % Lymph % (Auto) (20-40) % [place]oke % (Auto) (2-11) % Eos % (Auto) (0-4) % Baso % (Auto) (0-2) % Lymph # (Auto) (1.2-4.9) X10*3/uL [place] # (Auto) (0.1-1.2) X10*3/uL Eos # (Auto) (0.0-0.4) X10*3/uL Baso # (Auto) (0.0-0.2) X10*3/uL Abs Immat Gran (auto) (0.00-0.03) X10*3/uL Absolute Neuts (auto) (2.0-8.3) x10*3/uL Absolute Nucleated RBC (0.0-0.012) X10*3/uL Nucleated RBC % (auto) (0.0-0.2) /100WBC Sodium Cancelled 144 Potassium Cancelled 4.5 D Chloride Cancelled 107 Carbon Dioxide Cancelled 24 Anion Gap Cancelled 18 BUN Cancelled 15 Creatinine Cancelled 1.09 Estim Creat Clear Calc Cancelled 61.4 Estimated GFR Cancelled > 60 Random Glucose Cancelled 113 Lactic Acid (0.5-2.0) mmol/L Lactic Acid F/U @ 2Hr (0.5-2.0) mmol/L Calcium Cancelled 8.5 Magnesium Cancelled 2.2 Total Bilirubin Cancelled 1.2 H AST Cancelled 44 H ALT Cancelled 99 H Alkaline Phosphatase Cancelled 101 Total Creatine Kinase 114 (38-174) U/L Troponin I High Sens 56.1 H D (<3.5-35.0) ng/L Total Protein Cancelled 5.9 L D Albumin Cancelled 2.9 L Urine Color Urine Appearance Urine pH (5.0-8.0) Ur Specific Hodges (1.005-1.025) Urine Protein (NEG-TRACE) MG/DL Urine Glucose (UA) (NEG) MG/DL Urine Ketones (NEG) MG/DL Urine Blood (NEG) Urine Nitrite (NEG) Ur Leukocyte Esterase (NEG) Digoxin (0.8-2.0) ng/mL Urine Opiates Screen (Not Detect) Urine Fentanyl Screen (Not Detect) Ur Barbiturates Screen (Not Detect) Ur Phencyclidine Scrn (Not Detect) Ur Amphetamines Screen (Not Detect) U Benzodiazepines Scrn (Not Detect) Urine Cocaine Screen (Not Detect) U Marijuana (THC) (Not Detect) Screen COVID-19 (TIFFANIE) (Negative) COVID-19 Clin Com 06/10/21 06/10/21 06/10/21 Range/Units 14:18 16:34 17:18 WBC (4.8-10.8) X10*3/uL RBC (4.60-5.80) X10*6/uL Hgb (14.0-18.0) g/dl Hct (42.0-52.0) % MCV (80.0-98.0) fL MCH (27.0-33.0) pg MCHC (31.0-36.0) g/dl RDW (11.0-16.0) % Plt Count (160-400) X10*3/uL MPV (9.4-12.4) fL Immature Gran % (Auto) (0.0-0.4) % Neut % (Auto) (45-73) % Lymph % (Auto) (20-40) % [place]oke % (Auto) (2-11) % Eos % (Auto) (0-4) % Baso % (Auto) (0-2) % Lymph # (Auto) (1.2-4.9) X10*3/uL [place] # (Auto) (0.1-1.2) X10*3/uL Eos # (Auto) (0.0-0.4) X10*3/uL Baso # (Auto) (0.0-0.2) X10*3/uL Abs Immat Gran (auto) (0.00-0.03) X10*3/uL Absolute Neuts (auto) (2.0-8.3) x10*3/uL Absolute Nucleated RBC (0.0-0.012) X10*3/uL Nucleated RBC % (auto) (0.0-0.2) /100WBC Sodium Potassium Chloride Carbon Dioxide Anion Gap BUN Creatinine Estim Creat Clear Calc Estimated GFR Random Glucose Lactic Acid (0.5-2.0) mmol/L Lactic Acid F/U @ 2Hr 1.3 (0.5-2.0) mmol/L Calcium Magnesium Total Bilirubin AST ALT Alkaline Phosphatase Total Creatine Kinase (38-174) U/L Troponin I High Sens 54.1 H (<3.5-35.0) ng/L Total Protein Albumin Urine Color Urine Appearance Urine pH (5.0-8.0) Ur Specific Hodges (1.005-1.025) Urine Protein (NEG-TRACE) MG/DL Urine Glucose (UA) (NEG) MG/DL Urine Ketones (NEG) MG/DL Urine Blood (NEG) Urine Nitrite (NEG) Ur Leukocyte Esterase (NEG) Digoxin 0.9 (0.8-2.0) ng/mL Urine Opiates Screen (Not Detect) Urine Fentanyl Screen (Not Detect) Ur Barbiturates Screen (Not Detect) Ur Phencyclidine Scrn (Not Detect) Ur Amphetamines Screen (Not Detect) U Benzodiazepines Scrn (Not Detect) Urine Cocaine Screen (Not Detect) U Marijuana (THC) Screen (Not Detect) COVID-19 (TIFFANIE) (Negative) COVID-19 Clin Com 06/11/21 06/11/21 06/11/21 Range/Units 04:28 04:28 19:04 WBC 16.3 H (4.8-10.8) X10*3/uL RBC 4.23 L (4.60-5.80) X10*6/uL Hgb 12.3 L (14.0-18.0) g/dl Hct 36.9 L (42.0-52.0) % MCV 87.2 (80.0-98.0) fL MCH 29.1 (27.0-33.0) pg MCHC 33.3 (31.0-36.0) g/dl RDW 20.4 H (11.0-16.0) % Plt Count 182 (160-400) X10*3/uL MPV 9.8 (9.4-12.4) fL Immature Gran % (Auto) 0.8 H (0.0-0.4) % Neut % (Auto) 82.8 H (45-73) % Lymph % (Auto) 9.1 L (20-40) % Cooke % (Auto) 7.0 (2-11) % Eos % (Auto) 0.1 (0-4) % Baso % (Auto) 0.2 (0-2) % Lymph # (Auto) 1.5 (1.2-4.9) X10*3/uL [place]oke # (Auto) 1.1 (0.1-1.2) X10*3/uL Eos # (Auto) 0.0 (0.0-0.4) X10*3/uL Baso # (Auto) 0.0 (0.0-0.2) X10*3/uL Abs Immat Gran (auto) 0.13 H (0.00-0.03) X10*3/uL Absolute Neuts (auto) 13.5 H (2.0-8.3) x10*3/uL Absolute Nucleated RBC 0.000 (0.0-0.012) X10*3/uL Nucleated RBC % (auto) 0.0 (0.0-0.2) /100WBC Sodium Potassium Chloride Carbon Dioxide Anion Gap BUN Creatinine Estim Creat Clear Calc Estimated GFR Random Glucose Lactic Acid (0.5-2.0) mmol/L Lactic Acid F/U @ 2Hr (0.5-2.0) mmol/L Calcium Magnesium Total Bilirubin AST ALT Alkaline Phosphatase Total Creatine Kinase (38-174) U/L Troponin I High Sens (<3.5-35.0) ng/L Total Protein Albumin Urine Color YELLOW Urine Appearance CLEAR Urine pH 7.0 (5.0-8.0) Ur Specific Hodges 1.015 (1.005-1.025) Urine Protein TRACE (NEG-TRACE) MG/DL Urine Glucose (UA) NEG (NEG) MG/DL Urine Ketones 5 (NEG) MG/DL Urine Blood NEG (NEG) Urine Nitrite NEG (NEG) Ur Leukocyte Esterase NEG (NEG) Digoxin (0.8-2.0) ng/mL Urine Opiates Screen POSITIVE H (Not Detect) Urine Fentanyl Screen POSITIVE H (Not Detect) Ur Barbiturates Screen Not Detected (Not Detect) Ur Phencyclidine Scrn Not Detected (Not Detect) Ur Amphetamines Screen Not Detected (Not Detect) U Benzodiazepines Scrn Not Detected (Not Detect) Urine Cocaine Screen Not Detected (Not Detect) U Marijuana (THC) Not Detected (Not Detect) Screen COVID-19 (TIFFANIE) (Negative) COVID-19 Clin Com 06/11/21 Range/Units 19:04 WBC (4.8-10.8) X10*3/uL RBC (4.60-5.80) X10*6/uL Hgb (14.0-18.0) g/dl Hct (42.0-52.0) % MCV (80.0-98.0) fL MCH (27.0-33.0) pg MCHC (31.0-36.0) g/dl RDW (11.0-16.0) % Plt Count (160-400) X10*3/uL MPV (9.4-12.4) fL Immature Gran % (Auto) (0.0-0.4) % Neut % (Auto) (45-73) % Lymph % (Auto) (20-40) % [place]oke % (Auto) (2-11) % Eos % (Auto) (0-4) % Baso % (Auto) (0-2) % Lymph # (Auto) (1.2-4.9) X10*3/uL [place] # (Auto) (0.1-1.2) X10*3/uL Eos # (Auto) (0.0-0.4) X10*3/uL Baso # (Auto) (0.0-0.2) X10*3/uL Abs Immat Gran (auto) (0.00-0.03) X10*3/uL Absolute Neuts (auto) (2.0-8.3) x10*3/uL Absolute Nucleated RBC (0.0-0.012) X10*3/uL Nucleated RBC % (auto) (0.0-0.2) /100WBC Sodium 142 Potassium 4.2 Chloride 113 H Carbon Dioxide 22 Anion Gap 11 L BUN 13 Creatinine 1.05 Estim Creat Clear Calc 63.8 Estimated GFR > 60 Random Glucose 144 H Lactic Acid (0.5-2.0) mmol/L Lactic Acid F/U @ 2Hr (0.5-2.0) mmol/L Calcium 7.7 L D Magnesium Total Bilirubin AST ALT Alkaline Phosphatase Total Creatine Kinase (38-174) U/L Troponin I High Sens (<3.5-35.0) ng/L Total Protein Albumin Urine Color Urine Appearance Urine pH (5.0-8.0) Ur Specific Hodges (1.005-1.025) Urine Protein (NEG-TRACE) MG/DL Urine Glucose (UA) (NEG) MG/DL Urine Ketones (NEG) MG/DL Urine Blood (NEG) Urine Nitrite (NEG) Ur Leukocyte Esterase (NEG) Digoxin (0.8-2.0) ng/mL Urine Opiates Screen (Not Detect) Urine Fentanyl Screen (Not Detect) Ur Barbiturates Screen (Not Detect) Ur Phencyclidine Scrn (Not Detect) Ur Amphetamines Screen (Not Detect) U Benzodiazepines Scrn (Not Detect) Urine Cocaine Screen (Not Detect) U Marijuana (THC) Screen (Not Detect) COVID-19 (TIFFANIE) (Negative) COVID-19 Clin Com <Rina Valentin, [facility] [employer] - Last Filed: 06/11/21 16:14> Lab Results 06/10/21 06/10/21 06/10/21 Range/Units 13:43 13:56 13:57 WBC 16.3 H (4.8-10.8) X10*3/uL RBC 4.74 (4.60-5.80) X10*6/uL Hgb 13.5 L (14.0-18.0) g/dl Hct 40.6 L (42.0-52.0) % MCV 85.7 (80.0-98.0) fL MCH 28.5 (27.0-33.0) pg MCHC 33.3 (31.0-36.0) g/dl RDW 19.8 H (11.0-16.0) % Plt Count 202 (160-400) X10*3/uL MPV 10.6 (9.4-12.4) fL Immature Gran % (Auto) 1.0 H (0.0-0.4) % Neut % (Auto) 81.8 H (45-73) % Lymph % (Auto) 10.7 L (20-40) % Cooke % (Auto) 6.3 (2-11) % Eos % (Auto) 0.0 (0-4) % Baso % (Auto) 0.2 (0-2) % Lymph # (Auto) 1.7 (1.2-4.9) X10*3/uL Cooke # (Auto) 1.0 (0.1-1.2) X10*3/uL Eos # (Auto) 0.0 (0.0-0.4) X10*3/uL Baso # (Auto) 0.0 (0.0-0.2) X10*3/uL Abs Immat Gran (auto) 0.16 H (0.00-0.03) X10*3/uL Absolute Neuts (auto) 13.4 H (2.0-8.3) x10*3/uL Absolute Nucleated RBC 0.000 (0.0-0.012) X10*3/uL Nucleated RBC % (auto) 0.0 (0.0-0.2) /100WBC Sodium Potassium Chloride Carbon Dioxide Anion Gap BUN Creatinine Estim Creat Clear Calc Estimated GFR Random Glucose Lactic Acid 3.5 H* (0.5-2.0) mmol/L Lactic Acid F/U @ 2Hr (0.5-2.0) mmol/L Calcium Magnesium Total Bilirubin AST ALT Alkaline Phosphatase Total Creatine Kinase (38-174) U/L Troponin I High Sens (<3.5-35.0) ng/L Total Protein Albumin Urine Color Urine Appearance Urine pH (5.0-8.0) Ur Specific Hodges (1.005-1.025) Urine Protein (NEG-TRACE) MG/DL Urine Glucose (UA) (NEG) MG/DL Urine Ketones (NEG) MG/DL Urine Blood (NEG) Urine Nitrite (NEG) Ur Leukocyte Esterase (NEG) Digoxin (0.8-2.0) ng/mL Urine Opiates Screen (Not Detect) Urine Fentanyl Screen (Not Detect) Ur Barbiturates Screen (Not Detect) Ur Phencyclidine Scrn (Not Detect) Ur Amphetamines Screen (Not Detect) U Benzodiazepines Scrn (Not Detect) Urine Cocaine Screen (Not Detect) U Marijuana (THC) Screen (Not Detect) COVID-19 (TIFFANIE) Negative (Negative) COVID-19 Clin Com See Note 06/10/21 06/10/21 06/10/21 Range/Units 13:57 13:57 13:57 WBC (4.8-10.8) X10*3/uL RBC (4.60-5.80) X10*6/uL Hgb (14.0-18.0) g/dl Hct (42.0-52.0) % MCV (80.0-98.0) fL MCH (27.0-33.0) pg MCHC (31.0-36.0) g/dl RDW (11.0-16.0) % Plt Count (160-400) X10*3/uL MPV (9.4-12.4) fL Immature Gran % (Auto) (0.0-0.4) % Neut % (Auto) (45-73) % Lymph % (Auto) (20-40) % Cooke % (Auto) (2-11) % Eos % (Auto) (0-4) % Baso % (Auto) (0-2) % Lymph # (Auto) (1.2-4.9) X10*3/uL Cooke # (Auto) (0.1-1.2) X10*3/uL Eos # (Auto) (0.0-0.4) X10*3/uL Baso # (Auto) (0.0-0.2) X10*3/uL Abs Immat Gran (auto) (0.00-0.03) X10*3/uL Absolute Neuts (auto) (2.0-8.3) x10*3/uL Absolute Nucleated RBC (0.0-0.012) X10*3/uL Nucleated RBC % (auto) (0.0-0.2) /100WBC Sodium Cancelled 144 Potassium Cancelled 4.5 D Chloride Cancelled 107 Carbon Dioxide Cancelled 24 Anion Gap Cancelled 18 BUN Cancelled 15 Creatinine Cancelled 1.09 Estim Creat Clear Calc Cancelled 61.4 Estimated GFR Cancelled > 60 Random Glucose Cancelled 113 Lactic Acid (0.5-2.0) mmol/L Lactic Acid F/U @ 2Hr (0.5-2.0) mmol/L Calcium Cancelled 8.5 Magnesium Cancelled 2.2 Total Bilirubin Cancelled 1.2 H AST Cancelled 44 H ALT Cancelled 99 H Alkaline Phosphatase Cancelled 101 Total Creatine Kinase 114 (38-174) U/L Troponin I High Sens 56.1 H D (<3.5-35.0) ng/L Total Protein Cancelled 5.9 L D Albumin Cancelled 2.9 L Urine Color Urine Appearance Urine pH (5.0-8.0) Ur Specific Hodges (1.005-1.025) Urine Protein (NEG-TRACE) MG/DL Urine Glucose (UA) (NEG) MG/DL Urine Ketones (NEG) MG/DL Urine Blood (NEG) Urine Nitrite (NEG) Ur Leukocyte Esterase (NEG) Digoxin (0.8-2.0) ng/mL Urine Opiates Screen (Not Detect) Urine Fentanyl Screen (Not Detect) Ur Barbiturates Screen (Not Detect) Ur Phencyclidine Scrn (Not Detect) Ur Amphetamines Screen (Not Detect) U Benzodiazepines Scrn (Not Detect) Urine Cocaine Screen (Not Detect) U Marijuana (THC) (Not Detect) Screen COVID-19 (TIFFANIE) (Negative) COVID-19 Clin Com 06/10/21 06/10/21 06/10/21 Range/Units 14:18 16:34 17:18 WBC (4.8-10.8) X10*3/uL RBC (4.60-5.80) X10*6/uL Hgb (14.0-18.0) g/dl Hct (42.0-52.0) % MCV (80.0-98.0) fL MCH (27.0-33.0) pg MCHC (31.0-36.0) g/dl RDW (11.0-16.0) % Plt Count (160-400) X10*3/uL MPV (9.4-12.4) fL Immature Gran % (Auto) (0.0-0.4) % Neut % (Auto) (45-73) % Lymph % (Auto) (20-40) % Cooke % (Auto) (2-11) % Eos % (Auto) (0-4) % Baso % (Auto) (0-2) % Lymph # (Auto) (1.2-4.9) X10*3/uL Cooke # (Auto) (0.1-1.2) X10*3/uL Eos # (Auto) (0.0-0.4) X10*3/uL Baso # (Auto) (0.0-0.2) X10*3/uL Abs Immat Gran (auto) (0.00-0.03) X10*3/uL Absolute Neuts (auto) (2.0-8.3) x10*3/uL Absolute Nucleated RBC (0.0-0.012) X10*3/uL Nucleated RBC % (auto) (0.0-0.2) /100WBC Sodium Potassium Chloride Carbon Dioxide Anion Gap BUN Creatinine Estim Creat Clear Calc Estimated GFR Random Glucose Lactic Acid (0.5-2.0) mmol/L Lactic Acid F/U @ 2Hr 1.3 (0.5-2.0) mmol/L Calcium Magnesium Total Bilirubin AST ALT Alkaline Phosphatase Total Creatine Kinase (38-174) U/L Troponin I High Sens 54.1 H (<3.5-35.0) ng/L Total Protein Albumin Urine Color Urine Appearance Urine pH (5.0-8.0) Ur Specific Hodges (1.005-1.025) Urine Protein (NEG-TRACE) MG/DL Urine Glucose (UA) (NEG) MG/DL Urine Ketones (NEG) MG/DL Urine Blood (NEG) Urine Nitrite (NEG) Ur Leukocyte Esterase (NEG) Digoxin 0.9 (0.8-2.0) ng/mL Urine Opiates Screen (Not Detect) Urine Fentanyl Screen (Not Detect) Ur Barbiturates Screen (Not Detect) Ur Phencyclidine Scrn (Not Detect) Ur Amphetamines Screen (Not Detect) U Benzodiazepines Scrn (Not Detect) Urine Cocaine Screen (Not Detect) U Marijuana (THC) Screen (Not Detect) COVID-19 (TIFFANIE) (Negative) COVID-19 Clin Com 06/11/21 06/11/21 06/11/21 Range/Units 04:28 04:28 19:04 WBC 16.3 H (4.8-10.8) X10*3/uL RBC 4.23 L (4.60-5.80) X10*6/uL Hgb 12.3 L (14.0-18.0) g/dl Hct 36.9 L (42.0-52.0) % MCV 87.2 (80.0-98.0) fL MCH 29.1 (27.0-33.0) pg MCHC 33.3 (31.0-36.0) g/dl RDW 20.4 H (11.0-16.0) % Plt Count 182 (160-400) X10*3/uL MPV 9.8 (9.4-12.4) fL Immature Gran % (Auto) 0.8 H (0.0-0.4) % Neut % (Auto) 82.8 H (45-73) % Lymph % (Auto) 9.1 L (20-40) % Cooke % (Auto) 7.0 (2-11) % Eos % (Auto) 0.1 (0-4) % Baso % (Auto) 0.2 (0-2) % Lymph # (Auto) 1.5 (1.2-4.9) X10*3/uL [place] # (Auto) 1.1 (0.1-1.2) X10*3/uL Eos # (Auto) 0.0 (0.0-0.4) X10*3/uL Baso # (Auto) 0.0 (0.0-0.2) X10*3/uL Abs Immat Gran (auto) 0.13 H (0.00-0.03) X10*3/uL Absolute Neuts (auto) 13.5 H (2.0-8.3) x10*3/uL Absolute Nucleated RBC 0.000 (0.0-0.012) X10*3/uL Nucleated RBC % (auto) 0.0 (0.0-0.2) /100WBC Sodium Potassium Chloride Carbon Dioxide Anion Gap BUN Creatinine Estim Creat Clear Calc Estimated GFR Random Glucose Lactic Acid (0.5-2.0) mmol/L Lactic Acid F/U @ 2Hr (0.5-2.0) mmol/L Calcium Magnesium Total Bilirubin AST ALT Alkaline Phosphatase Total Creatine Kinase (38-174) U/L Troponin I High Sens (<3.5-35.0) ng/L Total Protein Albumin Urine Color YELLOW Urine Appearance CLEAR Urine pH 7.0 (5.0-8.0) Ur Specific Hodges 1.015 (1.005-1.025) Urine Protein TRACE (NEG-TRACE) MG/DL Urine Glucose (UA) NEG (NEG) MG/DL Urine Ketones 5 (NEG) MG/DL Urine Blood NEG (NEG) Urine Nitrite NEG (NEG) Ur Leukocyte Esterase NEG (NEG) Digoxin (0.8-2.0) ng/mL Urine Opiates Screen POSITIVE H (Not Detect) Urine Fentanyl Screen POSITIVE H (Not Detect) Ur Barbiturates Screen Not Detected (Not Detect) Ur Phencyclidine Scrn Not Detected (Not Detect) Ur Amphetamines Screen Not Detected (Not Detect) U Benzodiazepines Scrn Not Detected (Not Detect) Urine Cocaine Screen Not Detected (Not Detect) U Marijuana (THC) Not Detected (Not Detect) Screen COVID-19 (TIFFANIE) (Negative) COVID-19 Clin Com 06/11/21 Range/Units 19:04 WBC (4.8-10.8) X10*3/uL RBC (4.60-5.80) X10*6/uL Hgb (14.0-18.0) g/dl Hct (42.0-52.0) % MCV (80.0-98.0) fL MCH (27.0-33.0) pg MCHC (31.0-36.0) g/dl RDW (11.0-16.0) % Plt Count (160-400) X10*3/uL MPV (9.4-12.4) fL Immature Gran % (Auto) (0.0-0.4) % Neut % (Auto) (45-73) % Lymph % (Auto) (20-40) % [place] % (Auto) (2-11) % Eos % (Auto) (0-4) % Baso % (Auto) (0-2) % Lymph # (Auto) (1.2-4.9) X10*3/uL [place] # (Auto) (0.1-1.2) X10*3/uL Eos # (Auto) (0.0-0.4) X10*3/uL Baso # (Auto) (0.0-0.2) X10*3/uL Abs Immat Gran (auto) (0.00-0.03) X10*3/uL Absolute Neuts (auto) (2.0-8.3) x10*3/uL Absolute Nucleated RBC (0.0-0.012) X10*3/uL Nucleated RBC % (auto) (0.0-0.2) /100WBC Sodium 142 Potassium 4.2 Chloride 113 H Carbon Dioxide 22 Anion Gap 11 L BUN 13 Creatinine 1.05 Estim Creat Clear Calc 63.8 Estimated GFR > 60 Random Glucose 144 H Lactic Acid (0.5-2.0) mmol/L Lactic Acid F/U @ 2Hr (0.5-2.0) mmol/L Calcium 7.7 L D Magnesium Total Bilirubin AST ALT Alkaline Phosphatase Total Creatine Kinase (38-174) U/L Troponin I High Sens (<3.5-35.0) ng/L Total Protein Albumin Urine Color Urine Appearance Urine pH (5.0-8.0) Ur Specific Hodges (1.005-1.025) Urine Protein (NEG-TRACE) MG/DL Urine Glucose (UA) (NEG) MG/DL Urine Ketones (NEG) MG/DL Urine Blood (NEG) Urine Nitrite (NEG) Ur Leukocyte Esterase (NEG) Digoxin (0.8-2.0) ng/mL Urine Opiates Screen (Not Detect) Urine Fentanyl Screen (Not Detect) Ur Barbiturates Screen (Not Detect) Ur Phencyclidine Scrn (Not Detect) Ur Amphetamines Screen (Not Detect) U Benzodiazepines Scrn (Not Detect) Urine Cocaine Screen (Not Detect) U Marijuana (THC) Screen (Not Detect) COVID-19 (TIFFANIE) (Negative) COVID-19 Clin Com <MAXIM Ge - Last Filed: 06/14/21 19:15> Lab Results 06/10/21 06/10/21 06/10/21 Range/Units 13:43 13:56 13:57 WBC 16.3 H (4.8-10.8) X10*3/uL RBC 4.74 (4.60-5.80) X10*6/uL Hgb 13.5 L (14.0-18.0) g/dl Hct 40.6 L (42.0-52.0) % MCV 85.7 (80.0-98.0) fL MCH 28.5 (27.0-33.0) pg MCHC 33.3 (31.0-36.0) g/dl RDW 19.8 H (11.0-16.0) % Plt Count 202 (160-400) X10*3/uL MPV 10.6 (9.4-12.4) fL Immature Gran % (Auto) 1.0 H (0.0-0.4) % Neut % (Auto) 81.8 H (45-73) % Lymph % (Auto) 10.7 L (20-40) % [place] % (Auto) 6.3 (2-11) % Eos % (Auto) 0.0 (0-4) % Baso % (Auto) 0.2 (0-2) % Lymph # (Auto) 1.7 (1.2-4.9) X10*3/uL [place] # (Auto) 1.0 (0.1-1.2) X10*3/uL Eos # (Auto) 0.0 (0.0-0.4) X10*3/uL Baso # (Auto) 0.0 (0.0-0.2) X10*3/uL Abs Immat Gran (auto) 0.16 H (0.00-0.03) X10*3/uL Absolute Neuts (auto) 13.4 H (2.0-8.3) x10*3/uL Absolute Nucleated RBC 0.000 (0.0-0.012) X10*3/uL Nucleated RBC % (auto) 0.0 (0.0-0.2) /100WBC Sodium Potassium Chloride Carbon Dioxide Anion Gap BUN Creatinine Estim Creat Clear Calc Estimated GFR Random Glucose Lactic Acid 3.5 H* (0.5-2.0) mmol/L Lactic Acid F/U @ 2Hr (0.5-2.0) mmol/L Calcium Magnesium Total Bilirubin AST ALT Alkaline Phosphatase Total Creatine Kinase (38-174) U/L Troponin I High Sens (<3.5-35.0) ng/L Total Protein Albumin Urine Color Urine Appearance Urine pH (5.0-8.0) Ur Specific Hodges (1.005-1.025) Urine Protein (NEG-TRACE) MG/DL Urine Glucose (UA) (NEG) MG/DL Urine Ketones (NEG) MG/DL Urine Blood (NEG) Urine Nitrite (NEG) Ur Leukocyte Esterase (NEG) Digoxin (0.8-2.0) ng/mL Urine Opiates Screen (Not Detect) Urine Fentanyl Screen (Not Detect) Ur Barbiturates Screen (Not Detect) Ur Phencyclidine Scrn (Not Detect) Ur Amphetamines Screen (Not Detect) U Benzodiazepines Scrn (Not Detect) Urine Cocaine Screen (Not Detect) U Marijuana (THC) Screen (Not Detect) COVID-19 (TIFFANIE) Negative (Negative) COVID-19 Clin Com See Note 06/10/21 06/10/21 06/10/21 Range/Units 13:57 13:57 13:57 WBC (4.8-10.8) X10*3/uL RBC (4.60-5.80) X10*6/uL Hgb (14.0-18.0) g/dl Hct (42.0-52.0) % MCV (80.0-98.0) fL MCH (27.0-33.0) pg MCHC (31.0-36.0) g/dl RDW (11.0-16.0) % Plt Count (160-400) X10*3/uL MPV (9.4-12.4) fL Immature Gran % (Auto) (0.0-0.4) % Neut % (Auto) (45-73) % Lymph % (Auto) (20-40) % [place] % (Auto) (2-11) % Eos % (Auto) (0-4) % Baso % (Auto) (0-2) % Lymph # (Auto) (1.2-4.9) X10*3/uL [place] # (Auto) (0.1-1.2) X10*3/uL Eos # (Auto) (0.0-0.4) X10*3/uL Baso # (Auto) (0.0-0.2) X10*3/uL Abs Immat Gran (auto) (0.00-0.03) X10*3/uL Absolute Neuts (auto) (2.0-8.3) x10*3/uL Absolute Nucleated RBC (0.0-0.012) X10*3/uL Nucleated RBC % (auto) (0.0-0.2) /100WBC Sodium Cancelled 144 Potassium Cancelled 4.5 D Chloride Cancelled 107 Carbon Dioxide Cancelled 24 Anion Gap Cancelled 18 BUN Cancelled 15 Creatinine Cancelled 1.09 Estim Creat Clear Calc Cancelled 61.4 Estimated GFR Cancelled > 60 Random Glucose Cancelled 113 Lactic Acid (0.5-2.0) mmol/L Lactic Acid F/U @ 2Hr (0.5-2.0) mmol/L Calcium Cancelled 8.5 Magnesium Cancelled 2.2 Total Bilirubin Cancelled 1.2 H AST Cancelled 44 H ALT Cancelled 99 H Alkaline Phosphatase Cancelled 101 Total Creatine Kinase 114 (38-174) U/L Troponin I High Sens 56.1 H D (<3.5-35.0) ng/L Total Protein Cancelled 5.9 L D Albumin Cancelled 2.9 L Urine Color Urine Appearance Urine pH (5.0-8.0) Ur Specific Hodges (1.005-1.025) Urine Protein (NEG-TRACE) MG/DL Urine Glucose (UA) (NEG) MG/DL Urine Ketones (NEG) MG/DL Urine Blood (NEG) Urine Nitrite (NEG) Ur Leukocyte Esterase (NEG) Digoxin (0.8-2.0) ng/mL Urine Opiates Screen (Not Detect) Urine Fentanyl Screen (Not Detect) Ur Barbiturates Screen (Not Detect) Ur Phencyclidine Scrn (Not Detect) Ur Amphetamines Screen (Not Detect) U Benzodiazepines Scrn (Not Detect) Urine Cocaine Screen (Not Detect) U Marijuana (THC) (Not Detect) Screen COVID-19 (TIFFANIE) (Negative) COVID-19 Clin Com 06/10/21 06/10/21 06/10/21 Range/Units 14:18 16:34 17:18 WBC (4.8-10.8) X10*3/uL RBC (4.60-5.80) X10*6/uL Hgb (14.0-18.0) g/dl Hct (42.0-52.0) % MCV (80.0-98.0) fL MCH (27.0-33.0) pg MCHC (31.0-36.0) g/dl RDW (11.0-16.0) % Plt Count (160-400) X10*3/uL MPV (9.4-12.4) fL Immature Gran % (Auto) (0.0-0.4) % Neut % (Auto) (45-73) % Lymph % (Auto) (20-40) % [place] % (Auto) (2-11) % Eos % (Auto) (0-4) % Baso % (Auto) (0-2) % Lymph # (Auto) (1.2-4.9) X10*3/uL [place] # (Auto) (0.1-1.2) X10*3/uL Eos # (Auto) (0.0-0.4) X10*3/uL Baso # (Auto) (0.0-0.2) X10*3/uL Abs Immat Gran (auto) (0.00-0.03) X10*3/uL Absolute Neuts (auto) (2.0-8.3) x10*3/uL Absolute Nucleated RBC (0.0-0.012) X10*3/uL Nucleated RBC % (auto) (0.0-0.2) /100WBC Sodium Potassium Chloride Carbon Dioxide Anion Gap BUN Creatinine Estim Creat Clear Calc Estimated GFR Random Glucose Lactic Acid (0.5-2.0) mmol/L Lactic Acid F/U @ 2Hr 1.3 (0.5-2.0) mmol/L Calcium Magnesium Total Bilirubin AST ALT Alkaline Phosphatase Total Creatine Kinase (38-174) U/L Troponin I High Sens 54.1 H (<3.5-35.0) ng/L Total Protein Albumin Urine Color Urine Appearance Urine pH (5.0-8.0) Ur Specific Hodges (1.005-1.025) Urine Protein (NEG-TRACE) MG/DL Urine Glucose (UA) (NEG) MG/DL Urine Ketones (NEG) MG/DL Urine Blood (NEG) Urine Nitrite (NEG) Ur Leukocyte Esterase (NEG) Digoxin 0.9 (0.8-2.0) ng/mL Urine Opiates Screen (Not Detect) Urine Fentanyl Screen (Not Detect) Ur Barbiturates Screen (Not Detect) Ur Phencyclidine Scrn (Not Detect) Ur Amphetamines Screen (Not Detect) U Benzodiazepines Scrn (Not Detect) Urine Cocaine Screen (Not Detect) U Marijuana (THC) Screen (Not Detect) COVID-19 (TIFFANIE) (Negative) COVID-19 Clin Com 06/11/21 06/11/21 06/11/21 Range/Units 04:28 04:28 19:04 WBC 16.3 H (4.8-10.8) X10*3/uL RBC 4.23 L (4.60-5.80) X10*6/uL Hgb 12.3 L (14.0-18.0) g/dl Hct 36.9 L (42.0-52.0) % MCV 87.2 (80.0-98.0) fL MCH 29.1 (27.0-33.0) pg MCHC 33.3 (31.0-36.0) g/dl RDW 20.4 H (11.0-16.0) % Plt Count 182 (160-400) X10*3/uL MPV 9.8 (9.4-12.4) fL Immature Gran % (Auto) 0.8 H (0.0-0.4) % Neut % (Auto) 82.8 H (45-73) % Lymph % (Auto) 9.1 L (20-40) % [place]oke % (Auto) 7.0 (2-11) % Eos % (Auto) 0.1 (0-4) % Baso % (Auto) 0.2 (0-2) % Lymph # (Auto) 1.5 (1.2-4.9) X10*3/uL [place] # (Auto) 1.1 (0.1-1.2) X10*3/uL Eos # (Auto) 0.0 (0.0-0.4) X10*3/uL Baso # (Auto) 0.0 (0.0-0.2) X10*3/uL Abs Immat Gran (auto) 0.13 H (0.00-0.03) X10*3/uL Absolute Neuts (auto) 13.5 H (2.0-8.3) x10*3/uL Absolute Nucleated RBC 0.000 (0.0-0.012) X10*3/uL Nucleated RBC % (auto) 0.0 (0.0-0.2) /100WBC Sodium Potassium Chloride Carbon Dioxide Anion Gap BUN Creatinine Estim Creat Clear Calc Estimated GFR Random Glucose Lactic Acid (0.5-2.0) mmol/L Lactic Acid F/U @ 2Hr (0.5-2.0) mmol/L Calcium Magnesium Total Bilirubin AST ALT Alkaline Phosphatase Total Creatine Kinase (38-174) U/L Troponin I High Sens (<3.5-35.0) ng/L Total Protein Albumin Urine Color YELLOW Urine Appearance CLEAR Urine pH 7.0 (5.0-8.0) Ur Specific Hodges 1.015 (1.005-1.025) Urine Protein TRACE (NEG-TRACE) MG/DL Urine Glucose (UA) NEG (NEG) MG/DL Urine Ketones 5 (NEG) MG/DL Urine Blood NEG (NEG) Urine Nitrite NEG (NEG) Ur Leukocyte Esterase NEG (NEG) Digoxin (0.8-2.0) ng/mL Urine Opiates Screen POSITIVE H (Not Detect) Urine Fentanyl Screen POSITIVE H (Not Detect) Ur Barbiturates Screen Not Detected (Not Detect) Ur Phencyclidine Scrn Not Detected (Not Detect) Ur Amphetamines Screen Not Detected (Not Detect) U Benzodiazepines Scrn Not Detected (Not Detect) Urine Cocaine Screen Not Detected (Not Detect) U Marijuana (THC) Not Detected (Not Detect) Screen COVID-19 (TIFFANIE) (Negative) COVID-19 Clin Com 06/11/21 Range/Units 19:04 WBC (4.8-10.8) X10*3/uL RBC (4.60-5.80) X10*6/uL Hgb (14.0-18.0) g/dl Hct (42.0-52.0) % MCV (80.0-98.0) fL MCH (27.0-33.0) pg MCHC (31.0-36.0) g/dl RDW (11.0-16.0) % Plt Count (160-400) X10*3/uL MPV (9.4-12.4) fL Immature Gran % (Auto) (0.0-0.4) % Neut % (Auto) (45-73) % Lymph % (Auto) (20-40) % [place] % (Auto) (2-11) % Eos % (Auto) (0-4) % Baso % (Auto) (0-2) % Lymph # (Auto) (1.2-4.9) X10*3/uL [place] # (Auto) (0.1-1.2) X10*3/uL Eos # (Auto) (0.0-0.4) X10*3/uL Baso # (Auto) (0.0-0.2) X10*3/uL Abs Immat Gran (auto) (0.00-0.03) X10*3/uL Absolute Neuts (auto) (2.0-8.3) x10*3/uL Absolute Nucleated RBC (0.0-0.012) X10*3/uL Nucleated RBC % (auto) (0.0-0.2) /100WBC Sodium 142 Potassium 4.2 Chloride 113 H Carbon Dioxide 22 Anion Gap 11 L BUN 13 Creatinine 1.05 Estim Creat Clear Calc 63.8 Estimated GFR > 60 Random Glucose 144 H Lactic Acid (0.5-2.0) mmol/L Lactic Acid F/U @ 2Hr (0.5-2.0) mmol/L Calcium 7.7 L D Magnesium Total Bilirubin AST ALT Alkaline Phosphatase Total Creatine Kinase (38-174) U/L Troponin I High Sens (<3.5-35.0) ng/L Total Protein Albumin Urine Color Urine Appearance Urine pH (5.0-8.0) Ur Specific Hodges (1.005-1.025) Urine Protein (NEG-TRACE) MG/DL Urine Glucose (UA) (NEG) MG/DL Urine Ketones (NEG) MG/DL Urine Blood (NEG) Urine Nitrite (NEG) Ur Leukocyte Esterase (NEG) Digoxin (0.8-2.0) ng/mL Urine Opiates Screen (Not Detect) Urine Fentanyl Screen (Not Detect) Ur Barbiturates Screen (Not Detect) Ur Phencyclidine Scrn (Not Detect) Ur Amphetamines Screen (Not Detect) U Benzodiazepines Scrn (Not Detect) Urine Cocaine Screen (Not Detect) U Marijuana (THC) Screen (Not Detect) COVID-19 (TIFFANIE) (Negative) COVID-19 Clin Com <MAXIM Bravo - Last Filed: 06/15/21 08:24> Imaging Data Chest x-ray: Attestation: I personally reviewed and interpreted this imaging study as follows: <Mary Hurst CNP - Last Filed: 06/10/21 18:14> Radiologist's impression: IMPRESSION: Unremarkable chest exam. <Mary Hurst CNP - Last Filed: 06/10/21 18:14> ECG Data Attestation: I personally reviewed and interpreted this ECG as follows: <Mary Hurst CNP - Last Filed: 06/10/21 18:14> Prior ECG tracings: available for review <Mary Hurst CNP - Last Filed: 06/10/21 18:14> Interpretation: Rate: 64 Rhythm:? Atrial flutter Normal QRS complex.?? ST T wave :? No ST elevation qTC: 447 The study has been interpreted contemporaneously by me. <Mary Hurst CNP - Last Filed: 06/10/21 18:14> Critical Care Time Critical Care Time Critical Care Time: Yes <Mary Hurst CNP - Last Filed: 06/10/21 18:14> Total Critical Care Time: 60 <Mary Hurst CNP - Last Filed: 06/10/21 18:14> Attestation: I attest that I spent at least 60 minute of critical time on this patient <Mary Hurst CNP - Last Filed: 06/10/21 18:14> Discharge Plan Discharge Clinical Impression: Acute alteration in mental status, Hypoxia <Mary Hurst CNP - Last Filed: 06/10/21 18:14> Patient Disposition: Admitted As Inpatient <Mary Hurst CNP - Last Filed: 06/10/21 18:14>
[2021-06-10 14:02] LABS: MANUAL DIFF FLAG NO
[2021-06-10 14:03] LABS: Basophils Percent Auto 0.2 % (0-2); Hematocrit 40.6 % (42.0-52.0); Hemoglobin 13.5 g/dl (14.0-18.0); Imm Gran Abs Auto 0.16 X10*3/uL (0.00-0.03); Lymphocytes Absolute Auto 1.7 X10*3/uL (1.2-4.9); Lymphocytes Percent Auto 10.7 % (20-40); Mean Corpuscular HGB Conc 33.3 g/dl (31.0-36.0); Mean Corpuscular Hemoglobin 28.5 pg (27.0-33.0); Mean Corpuscular Volume 85.7 fL (80.0-98.0); Mean Platelet Volume 10.6 fL (9.4-12.4); Monocytes Percent Auto 6.3 % (2-11); Neutrophils Absolute Auto 13.4 x10*3/uL (2.0-8.3); Neutrophils Percent Auto 81.8 % (45-73); Platelet Count 202 X10*3/uL (160-400); Red Blood Count 4.74 X10*6/uL (4.60-5.80); Red Cell Distribution Width 19.8 % (11.0-16.0); White Blood Count 16.3 X10*3/uL (4.8-10.8)
[2021-06-10] MEDS: 0.9 % Sodium Chloride 2,177.25 ML 2177.25 ML IV (14:12)
[2021-06-10 14:14] LABS: Lactic Acid 3.5 mmol/L (0.5-2.0)
[2021-06-10 14:15] LABS: COVID-19 Test Negative (Negative)
[2021-06-10 14:23] LABS: Troponin-I High Sensitivity 56.1 ng/L (<3.5-35.0)
[2021-06-10 14:29] LABS: Alanine Aminotransferase 99 U/L (0-40); Albumin Level 2.9 g/dL (3.5-5.0); Alkaline Phosphatase 101 U/L (39-117); Anion Gap 18 (12-20); Aspartate Amino Transferase 44 U/L (5-37); Bilirubin Total 1.2 mg/dL (0.0-1.0); Blood Urea Nitrogen 15 mg/dL (9-16); Calcium 8.5 mg/dL (8.4-10.2); Carbon Dioxide 24 mmol/L (22-29); Chloride 107 mmol/L (96-108); Creatinine Clr Calc Pharmacy 61.4; Estimated Glomerular Filt Rate > 60; Glucose Random 113 mg/dL (60-115); Magnesium 2.2 mg/dL (1.6-2.6); Potassium 4.5 mmol/L (3.3-5.1); Sodium 144 mmol/L (135-145); Total Protein 5.9 g/dL (6.5-8.0)
[2021-06-10] MEDS: Haloperidol Lactate 5 MG/ML VIAL 2.5 MG IVPUSH (14:31)
[2021-06-10] MEDS: Piperacillin Sodium/Tazobactam 3.375 GM in 0.9 % Sodium Chloride 50 ML IV (14:33)
[2021-06-10 15:32] LABS: Digoxin 0.9 ng/mL (0.8-2.0)
[2021-06-10 16:01] LABS: Reflex Lactate? Lactic Acid Added
--- NOTE | 2021-06-10 16:43 | PC.NURSE ---
Pt sleeping after Haldol but awakes easily to voice. Initially pt very abrupt and aggressive. Not answering any assessment questions. Threatening to rip out IV. Spoke to Dinorah with permission of pt who has been updated on plan thus far, contact [phone]. Fluids continue to infuse, repeat lactic sent. Carlos on tele. BP soft. Sat 96% on 2lpm via nc. Breathing unlabored. Unable to assess lung sounds d/t pt refusal. Left heel noted with old healed wounds, b/l heels elevated on pillow
[2021-06-10 16:52] LABS: ~Lactic Acid-LAB USE ONLY 1.3 mmol/L (0.5-2.0)
[2021-06-10 17:45] LABS: Troponin-I High Sensitivity 54.1 ng/L (<3.5-35.0)
--- NOTE | 2021-06-10 19:41 | PHA.MEDREC ---
Pharmacy Consult ? Medication Reconciliation Pharmacy has completed the medication reconciliation. based off of discharge summary from 3 days ago.
--- NOTE | 2021-06-10 23:09 | PC.NURSE ---
Patient's called to see how the patient was doing. She stated that she would not take him back into the house until he had gone to rehab. He was too much for her to handle
[2021-06-11] VITALS (8 sets, daily range): BP systolic 85–137; BP diastolic 40–73; PULSE 59–67; RESP 12–22; TEMP 36.6–37.1; O2SAT 81–99
[2021-06-11 04:32] LABS: Appearance Urine CLEAR; Color Urine YELLOW; Glucose Urine UA NEG (NEG); Leukocyte Esterase Urine NEG (NEG); Nitrite Urine NEG (NEG); Specific Gravity - Urine 1.015 (1.005-1.025); Urine Blood NEG (NEG); Urine Ketones 5 MG/DL (NEG); Urine Protein TRACE MG/DL (NEG-TRACE)
[2021-06-11 04:48] LABS: Amphetamine Screen Urine Not Detected (Not Detect); Barbiturates, Urine Not Detected (Not Detect); Benzodiazepines Screen Urine Not Detected (Not Detect); Cannabinoid Screen Urine Not Detected (Not Detect); Cocaine Screen Urine Not Detected (Not Detect); Fentanyl, urine POSITIVE (Not Detect); Opiate Screen Urine POSITIVE (Not Detect); Phencyclidine Screen Urine Not Detected (Not Detect)
[2021-06-11] MEDS: Multivitamin TABLET 1 TAB PO (09:48)
[2021-06-11] MEDS: Vitamin E (Dl,Tocopheryl Acet) 180 MG (400 UNIT) CAPSULE PO (09:48)
[2021-06-11] MEDS: Escitalopram Oxalate 10 MG TABLET PO (09:48)
[2021-06-11] MEDS: levETIRAcetam 500 MG TABLET PO ×2 (09:48→21:40)
[2021-06-11] MEDS: Pentoxifylline ER 400 MG TABLET.ER PO (09:49)
[2021-06-11] MEDS: Apixaban 5 MG TABLET PO ×2 (09:49→21:40)
[2021-06-11] MEDS: Metoprolol Succinate ER 100 MG TAB.ER.24H PO (09:49)
[2021-06-11] MEDS: guaiFENesin DM 100/10/5 ML 5 ML SYRUP 10 ML PO ×2 (09:49→21:40)
[2021-06-11] MEDS: Digoxin 0.125 MG TABLET PO (09:55)
--- NOTE | 2021-06-11 10:20 | PC.NURSE ---
wound documentation has been completed
--- NOTE | 2021-06-11 13:38 | MHC.RECOVSUP ---
Recovery Support note: Patient is a 66 year old [place]an speaking male who presented to [facility] ED due to difficulties at home. This editorial writer met with patient to discuss his recovery and mental health. 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 Patient reports he has not used since before his last admission on 05/22/21. Patient reports no issues with maintaining sobriety and reports he has not had cravings. Patient states I put it behind me. Patient reports no history of mental health issues or diagnoses. Patient denies SI/HI/AH/VH.
[2021-06-11] MEDS: 0.9 % Sodium Chloride 1,000 ML 999 ML IV (16:40)
[2021-06-11 19:11] LABS: MANUAL DIFF FLAG NO
[2021-06-11 19:12] LABS: Basophils Percent Auto 0.2 % (0-2); Eosinophils Percent Auto 0.1 % (0-4); Hematocrit 36.9 % (42.0-52.0); Hemoglobin 12.3 g/dl (14.0-18.0); Imm Gran Abs Auto 0.13 X10*3/uL (0.00-0.03); Imm Gran Pct Auto 0.8 % (0.0-0.4); Lymphocytes Absolute Auto 1.5 X10*3/uL (1.2-4.9); Lymphocytes Percent Auto 9.1 % (20-40); Mean Corpuscular HGB Conc 33.3 g/dl (31.0-36.0); Mean Corpuscular Hemoglobin 29.1 pg (27.0-33.0); Mean Corpuscular Volume 87.2 fL (80.0-98.0); Mean Platelet Volume 9.8 fL (9.4-12.4); Monocytes Absolute Auto 1.1 X10*3/uL (0.1-1.2); Neutrophils Absolute Auto 13.5 x10*3/uL (2.0-8.3); Neutrophils Percent Auto 82.8 % (45-73); Platelet Count 182 X10*3/uL (160-400); Red Blood Count 4.23 X10*6/uL (4.60-5.80); Red Cell Distribution Width 20.4 % (11.0-16.0); White Blood Count 16.3 X10*3/uL (4.8-10.8)
[2021-06-11 19:34] LABS: Anion Gap 11 (12-20); Blood Urea Nitrogen 13 mg/dL (9-16); Calcium 7.7 mg/dL (8.4-10.2); Carbon Dioxide 22 mmol/L (22-29); Chloride 113 mmol/L (96-108); Creatinine Clr Calc Pharmacy 63.8; Estimated Glomerular Filt Rate > 60; Glucose Random 144 mg/dL (60-115); Potassium 4.2 mmol/L (3.3-5.1); Sodium 142 mmol/L (135-145)
[2021-06-12] VITALS: BP 100/61; PULSE 59; RESP 22; TEMP 36.6; O2SAT 98
--- NOTE | 2021-06-12 03:56 | PC.NURSE ---
I assumed care of this pt at 1900. Since that time he has remained alert and oriented x 3, without complaints - he denies chest pain, denies SOB, respirations non-labored, he speaks in full sentences, no cyanosis. Condom cath placed without difficulty as pt has been incontinent of urine. He is taking PO food and fluids without difficulty. I spoke with two members of the patients family with his permission and updated them on his course and plan and they verbalized an understanding.
[2021-06-12 07:34] VITALS: BP 137/75; PULSE 62; RESP 25; TEMP 36.7; O2SAT 94
[2021-06-12] MEDS: Multivitamin TABLET 1 TAB PO (08:25)
[2021-06-12] MEDS: levETIRAcetam 500 MG TABLET PO ×2 (08:25→21:22)
[2021-06-12] MEDS: Omeprazole 40 MG CAPSULE.DR PO (08:25)
[2021-06-12] MEDS: Apixaban 5 MG TABLET PO ×2 (08:25→21:22)
[2021-06-12] MEDS: guaiFENesin DM 100/10/5 ML 5 ML SYRUP 10 ML PO ×2 (08:48→21:22)
[2021-06-12] MEDS: Pentoxifylline ER 400 MG TABLET.ER PO ×2 (08:48→22:28)
[2021-06-12] MEDS: Escitalopram Oxalate 10 MG TABLET PO (08:49)
[2021-06-12] MEDS: Vitamin E (Dl,Tocopheryl Acet) 180 MG (400 UNIT) CAPSULE PO (08:49)
--- NOTE | 2021-06-12 10:45 | PC.NURSE ---
pt's brother aaliyah ([phone]) called and was updated on pt status. aaliyah also spoke to the pt
--- NOTE | 2021-06-12 11:07 | MHC.CM.ED ---
Patient remains in ER. Referral originally broadcasted within 20 miles of patient's residence. No bed offers have been made at this time due to previous substance abuse. Per [facility] recovery team, patient has not used heroin since before [facility] admission. [facility] letter obtained. Referral broadcasted within 50 miles of patient's residence. Continue to monitor for d/c needs.
[2021-06-12 12:00] VITALS: BP 138/66; PULSE 58; RESP 24; TEMP 37.2; O2SAT 100
[2021-06-12 13:33] VITALS: BP 115/70; PULSE 60; RESP 19; TEMP 37.2; O2SAT 100
--- NOTE | 2021-06-12 15:08 | PC.NURSE ---
patient's [place] catheter had begun to fall off and patient was incontinent in bed. this pct applied new [place] catheter to patient and rolled and cleaned patient.
[2021-06-12 16:12] VITALS: BP 119/63; PULSE 67; RESP 18; TEMP 37; O2SAT 99
[2021-06-13] MEDS: Omeprazole 40 MG CAPSULE.DR PO (06:42)
[2021-06-13] MEDS: Vitamin E (Dl,Tocopheryl Acet) 180 MG (400 UNIT) CAPSULE PO (09:18)
[2021-06-13] MEDS: Nicotine 21 MG PATCH.TD24 TRANSDERMA (09:18)
[2021-06-13] MEDS: Digoxin 0.125 MG TABLET PO (09:18)
[2021-06-13] MEDS: levETIRAcetam 500 MG TABLET PO ×2 (09:18→22:01)
[2021-06-13] MEDS: Pentoxifylline ER 400 MG TABLET.ER PO ×2 (09:18→22:01)
[2021-06-13] MEDS: Apixaban 5 MG TABLET PO ×2 (09:19→22:01)
[2021-06-13] MEDS: Metoprolol Succinate ER 100 MG TAB.ER.24H PO (09:19)
[2021-06-13] MEDS: Escitalopram Oxalate 10 MG TABLET PO (09:19)
[2021-06-13] MEDS: Multivitamin TABLET 1 TAB PO (09:19)
[2021-06-13 11:20] VITALS: BP 109/49; PULSE 70; RESP 20; TEMP 36.6; O2SAT 95
--- NOTE | 2021-06-13 13:07 | MHC.CM.ED ---
Addendum entered by Sandie Garcia 06/13/21 13:48: Received telephone call from patient's brother, Oskar. T/W explained patient was still in ER and short term rehab beds were still being pursued. Oskar verbalized understanding. Continue to monitor for d/c needs. Original Note: Patient remains in ER. 94 referrals have been made. At this time, no bed offers have been made. [facility] may have a bed on Friday. Continue to monitor for d/c needs.
[2021-06-13 13:32] VITALS: BP 124/61; PULSE 93; RESP 16; TEMP 36.6; O2SAT 95
[2021-06-13 18:34] VITALS: BP 129/61; PULSE 74; RESP 16; TEMP 36.3; O2SAT 98
--- NOTE | 2021-06-13 18:35 | PC.NURSE ---
PATIENT WAS INC OF URINE ,BED BATH WAS GIVEN ,BEDDING WAS CHANGE ,PATIENT NOW HAVING SUPPER .
[2021-06-13 21:16] VITALS: BP 109/71; PULSE 82; RESP 20; TEMP 36.6; O2SAT 96
--- NOTE | 2021-06-13 21:18 | PC.NURSE ---
patient output is 400 and once inc of urine .
[2021-06-13] MEDS: guaiFENesin DM 100/10/5 ML 5 ML SYRUP 10 ML PO (22:01)
[2021-06-14] MEDS: diphenhydrAMINE HCL 25 MG TABLET PO (01:23)
--- NOTE | 2021-06-14 02:43 | PC.NURSE ---
Patient has episodes of sinus tachycardia up to 140's when irritated and/exertion/hypoxic Dr. Mclaughlin. Patient is incontinent of urine pulls off condom catheter because he moves alot in bed. tried encouraging him to use a urinal not successful. Will continue to monitor.
--- NOTE | 2021-06-14 03:16 | ECG_ITS ---
Test Reason : HEART RATE CHECK Blood Pressure : / mmHG Vent. Rate : 096 BPM Atrial Rate : 000 BPM P-R Int : 000 ms QRS Dur : 104 ms QT Int : 324 ms P-R-T Axes : 000 085 259 degrees QTc Int : 409 ms Atrial fibrillation with premature ventricular or aberrantly conducted complexes Minimal voltage criteria for LVH, may be normal variant ( [place] product ) ST & T wave abnormality, consider lateral ischemia Abnormal ECG When compared with ECG of 10-JUN-2021 14:03, Atrial fibrillation has replaced Atrial flutter Vent. rate has increased BY 32 BPM Referred By: Yandy Diego Electronically Signed By:ABDIEL VILLARREAL
--- NOTE | 2021-06-14 03:58 | PC.NURSE ---
Assumed care of pt Repeat EKG completed with cytometry technologist Pt tolerated well NAD Will continue to monitor
--- NOTE | 2021-06-14 06:36 | PC.NURSE ---
Pt attempted to medicate per JUL Pt refused Pt resting on stretcher with eyes closed. Breathing even and unlabored Denies any pain Will continue to monitor
[2021-06-14 07:51] VITALS: BP 139/87; PULSE 110; RESP 20; O2SAT 98
[2021-06-14] MEDS: levETIRAcetam 500 MG TABLET PO ×2 (08:23→20:17)
[2021-06-14] MEDS: Apixaban 5 MG TABLET PO ×2 (08:23→20:17)
--- NOTE | 2021-06-14 08:34 | PC.NURSE ---
Pt rousable to voice and became verbally abusive to me during AM med pass. FUCK YOU I M NOT TAKING THIS FUCKING SHIT . Pt educated to the purpose of meds. Response: I DON'T GIVE A FUCK. I WANT YOU TO LEAVE ME ALONE . Compromise made to have pt take Eloquis and keppra. Tolerated PO meds well. Pt offered tolieting. Urinal Emptied for 300ml. Pt offered breakfast or alternate meal. Orientatation to room offered. Staff will check in on pt at 1030 to promote sleep hygiene.
--- NOTE | 2021-06-14 10:28 | PC.NURSE ---
1030: checked in with pt as promised. pt denied tolieting needs/hygine needs/or discomfort. pt repositioned in bed. urinal in reach. will check in at 1330.
[2021-06-14] MEDS: guaiFENesin DM 100/10/5 ML 5 ML SYRUP 10 ML PO ×2 (14:28→20:15)
--- NOTE | 2021-06-14 14:29 | PC.NURSE ---
Pt in good spirits, ate 100% of lunch. Attempted to call Dinorah for update at [phone]
--- NOTE | 2021-06-14 15:36 | MHC.CM.ED ---
Addendum entered by Sandie Garcia 06/14/21 15:52: Referral broadcasted within 200 miles of patient's residence and in the state of [facility]. 339 referrals made. Original Note: Patient remains in ER. 94 referrals made. No bed offers as of yet. [facility] may have a bed on Friday. Continue to monitor for d/c needs.
[2021-06-14 16:05] VITALS: BP 126/70; PULSE 92; RESP 20; TEMP 37.3; O2SAT 97
[2021-06-14 20:00] VITALS: PULSE 74; RESP 18; O2SAT 95
[2021-06-14] MEDS: Pentoxifylline ER 400 MG TABLET.ER PO (20:17)
--- NOTE | 2021-06-14 21:19 | PC.NURSE ---
[facility] bed change done. Bed bath done. VSS
[2021-06-14] MEDS: Melatonin 3 MG TABLET 6 MG PO (23:41)
[2021-06-14] MEDS: diphenhydrAMINE HCL 25 MG TABLET 50 MG PO (23:41)
--- NOTE | 2021-06-14 23:44 | PC.NURSE ---
Pt ringing his call bobby, requesting medication to sleep. agreeable. Pt medicated per JUL. Pt resting in POC, urinal at bedside. Call bobby within reach.
[2021-06-15] VITALS (10 sets, daily range): BP systolic 96–131; BP diastolic 49–78; PULSE 65–138; RESP 16–24; TEMP 36.4–37.6; O2SAT 95–97
--- NOTE | 2021-06-15 06:35 | PC.NURSE ---
This RN at bedside with AM Brian. Pt found to be sleeping in bed in NAD. HR on the monitor noted to be 130 bpm, NSR with runs of Atrial Fibrillation. Pt has a known history of Afib. VSS at this time.
[2021-06-15] MEDS: Omeprazole 40 MG CAPSULE.DR PO (06:39)
[2021-06-15] MEDS: Metoprolol Succinate ER 100 MG TAB.ER.24H PO (06:39)
--- NOTE | 2021-06-15 06:41 | PC.NURSE ---
Upon further investigation, pt refusing Metoprolol and Dig yesterday. Pt medicated early with medications due to increased HR.
[2021-06-15] MEDS: Digoxin 0.125 MG TABLET PO (06:44)
[2021-06-15] MEDS: Apixaban 5 MG TABLET PO ×2 (08:31→20:51)
[2021-06-15] MEDS: guaiFENesin DM 100/10/5 ML 5 ML SYRUP 10 ML PO ×2 (08:31→20:55)
[2021-06-15] MEDS: Escitalopram Oxalate 10 MG TABLET PO (08:31)
[2021-06-15] MEDS: levETIRAcetam 500 MG TABLET PO ×2 (08:31→20:51)
[2021-06-15] MEDS: Multivitamin TABLET 1 TAB PO (08:31)
[2021-06-15 08:48] LABS: MANUAL DIFF FLAG NO
[2021-06-15 08:49] LABS: Basophils Percent Auto 0.2 % (0-2); Eosinophils Percent Auto 0.2 % (0-4); Hematocrit 32.1 % (42.0-52.0); Hemoglobin 10.6 g/dl (14.0-18.0); Imm Gran Abs Auto 0.06 X10*3/uL (0.00-0.03); Imm Gran Pct Auto 0.4 % (0.0-0.4); Lymphocytes Absolute Auto 1.2 X10*3/uL (1.2-4.9); Lymphocytes Percent Auto 8.5 % (20-40); Mean Corpuscular Hemoglobin 28.6 pg (27.0-33.0); Mean Corpuscular Volume 86.5 fL (80.0-98.0); Monocytes Percent Auto 6.6 % (2-11); Neutrophils Absolute Auto 12.3 x10*3/uL (2.0-8.3); Neutrophils Percent Auto 84.1 % (45-73); Platelet Count 191 X10*3/uL (160-400); Red Blood Count 3.71 X10*6/uL (4.60-5.80); Red Cell Distribution Width 20.2 % (11.0-16.0); White Blood Count 14.6 X10*3/uL (4.8-10.8)
[2021-06-15 09:37] LABS: Alanine Aminotransferase 44 U/L (0-40); Albumin Level 2.4 g/dL (3.5-5.0); Alkaline Phosphatase 72 U/L (39-117); Anion Gap 10 (12-20); Aspartate Amino Transferase 23 U/L (5-37); Bilirubin Total 0.7 mg/dL (0.0-1.0); Blood Urea Nitrogen 11 mg/dL (9-16); Calcium 7.7 mg/dL (8.4-10.2); Carbon Dioxide 27 mmol/L (22-29); Chloride 106 mmol/L (96-108); Creatinine Clr Calc Pharmacy 74.4; Estimated Glomerular Filt Rate > 60; Glucose Random 164 mg/dL (60-115); Potassium 3.8 mmol/L (3.3-5.1); Sodium 139 mmol/L (135-145); Total Protein 4.8 g/dL (6.5-8.0)
[2021-06-15] MEDS: Vitamin E (Dl,Tocopheryl Acet) 180 MG (400 UNIT) CAPSULE PO (10:12)
[2021-06-15] MEDS: Pentoxifylline ER 400 MG TABLET.ER PO ×2 (10:12→21:00)
--- NOTE | 2021-06-15 13:55 | MHC.CM.PN ---
HEATHER RECEIVED A CALL FROM PTS BROTHER, KITTY. HE WAS INFORMED THERE WERE STILL NO BED OFFERS FOR STR. HE REPORTS THE PTS HOME SITUATION IS VERY BAD. HE SAYS THE PTS CANNOT CARE FOR HERSELF SO DEFINITELY CANNOT ASSIST THE PT. KITTY REPORTS STR IS REALLY THE ONLY SAFE DISPOSITION FOR THIS PT. HEATHER INFORMED HIM THE BED SEARCH WOULD CONTINUE LONG PT WAS APPROPRIATE FOR THAT LOC AND IN AGREEMENT WITH THE DC PLAN
--- NOTE | 2021-06-15 13:59 | MHC.CM.PN ---
Addendum entered by Mai Fall 06/15/21 16:01: HEATHER RECEIVED A CALL FROM [facility]. THEY REPORTED ANOTHER LIAISON AT THEIR FACILITY HAD DECLINED PT HOWEVER SHE IS UNSURE WHY. SHE REPORTS SHE IS GOING TO CONTACT THE BILLING OFFICE TO DETERMINE IF THEY ARE ABLE TO OFFER A BED SHE REQUESTED UPDATES BE ATTACHED INCLUDING PT HOWEVER THE ONLY PT NOTE WAS FROM 06/11/21. PT IS GONE FOR THE DAY TODAY, WE WILL REQUEST AN UPDATED EVAL TOMORROW MORNING. Original Note: HEATHER RECEIVED A MESSAGE FROM PHILLIP AT [facility] INDICATING PTS INFO HAD BEEN SENT TO CLINICAL REVIEW AND HE WOULD CALL BACK IF THEY WERE ABLE TO OFFER A BED.
[2021-06-15] MEDS: cefEPime HCl 2 GM in 0.9 % Sodium Chloride 50 ML IV (16:04)
[2021-06-15] MEDS: vancomycin HCL 1,250 MG in 0.9 % Sodium Chloride 250 ML 166.67 MG IV (18:25)
--- NOTE | 2021-06-15 18:30 | PHA.PROG ---
Admission Date/Time: Indication: OTHER (POSSIBLE HAP) Weight in k.575 kg Adjusted body weight in Kg: [place] body weight in Kg: Obesity Dosing Indication % IBW: Serum Creatinine - Last 168 Hours 06/10/21 06/10/21 06/11/21 13:57 13:57 19:04 Creatinine Cancelled 1.09 1.05 06/15/21 08:45 Creatinine 0.90 Estimated CrCl and GFR - Last 168 Hours 06/10/21 06/10/21 06/11/21 13:57 13:57 19:04 Estim Creat Clear Calc Cancelled 61.4 63.8 Estimated GFR Cancelled > 60 > 60 06/15/21 08:45 Estim Creat Clear Calc 74.4 Estimated GFR > 60 Vancomycin Loading Dose: 1250mg Current Vancomycin Dosing Regimen: 1500mg q24h Vancomycin Monitoring using AUC goal of 400 - 600 range with trough as surrogate marker: auc 483; trough 13.2 Date and Time for next Vancomycin Level to be drawn: 06/17 @1600 Pharmacist Comments on Vancomycin Plan: Vancomycin dosing will take advantage of appEatIT as a clinical decision support tool that uses Bayesian modeling to calculate individual patient's pharmacokinetic parameters and forecast the patient's drug concentration time course with the target goal AUC 24 range of 400 - 600 mg/L/hr.
[2021-06-15 19:52] LABS: COVID-19 Test Negative (Negative); IDNOW Serial# 55D5AD1C
--- NOTE | 2021-06-15 19:56 | P.HPHOSP_ITS ---
History of Present Illness Date of Service: 06/15/21 Chief Complaint: Cough 66-year-old male with a past medical history of hypertension, hyperlipidemia, CAD status post CABG, peripheral vascular disease, history of CVA, AFib on Eliquis, history of substance abuse, seizure disorder, tobacco dependence, COPD not on home oxygen; recent admission to the hospital for multifocal pneumonia discharge on 06/07/2021 presented to the hospital with a chief complaint of fall. Per report patient was not able to take care of himself at home. Patient refused to go to rehab with time of the discharge on 06/07/2021. Patient denied any chest pain palpitations lightheadedness or dizziness at the time. Being observed in the ER since 06/10/2021 for case management/ rehab placement. Today ER called in mention patient noted to be in mild respiratory distress, tachypneic tachycardic and has been having cough; chest x-ray showed patchy infiltrates. Concern for pneumonia. Patient was started on broad-spectrum antibiotics. Patient was also noted to be hypoxic- placed on supplemental oxygen. Admitted to the hospital for further management. Patient reports he has been having cough. Denies any sputum production. Denies any chest pain palpitations. Denies any numbness tingling. Denies any GI symptoms. Review of all other systems is negative except mentioned above [facility] Medical History Acute combined systolic and diastolic congestive heart failure Atrial fibrillation Atrial flutter Atrial flutter CAD (coronary artery disease) Cardiac arrest Cardiomyopathy CHF (congestive heart failure) Cocaine abuse with intoxication COPD (chronic obstructive pulmonary disease) Coronary bypass graft mechanical complication Drug abuse 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 Heroin use History of hemorrhagic cerebrovascular accident (CVA) without residual deficits Hyperlipemia Leukocytosis Opioid use disorder Paroxysmal atrial fibrillation Pneumonia Pneumonitis PVD (peripheral vascular disease) Seizure disorder Seizure-like activity Subclavian arterial stenosis Toxic encephalopathy Surgical History S/P CABG x 2 Social History Household Members: Spouse Housing: House Do you presently have visiting nurse or other home services: No Unable to assess alcohol history related to: Unable to respond Alcohol intake: never Patient Tobacco Use Status: Never used Tobacco Tobacco use type: Cigarette Cigarette Packs Per Day: 2 Cigarettes Per Day: 40.0 e-Cigarette/Vaping Use: Never Used Second Hand Smoke Exposure: Yes Use of substances other than those prescribed or required for medical reasons: Yes Substance Use Type: Heroin Advance Directives: Yes Advance Directives on File: Yes Advance Directives Date on File: 01/12/21 service: No Current occupational status: retired Meds Allergies Allergy/AdvReac Type Severity Reaction Status Date / Time No Known Allergies Allergy Unverified 01/12/21 01:03 Active Medications: Current Medications Acetaminophen (Acetaminophen 325 Mg Tablet) 650 mg PO Q6H PRN PRN Reason: Pain, Mild (Pain Scale 1-3) Albuterol/Ipratropium (Albuterol/Iprat 2.5/0.5mg 3 Ml Ampul.Neb) 3 ml INHALE RQ4H PRN PRN Reason: Shortness of Breath/Wheezing Apixaban (Apixaban 5 Mg Tablet) 5 mg PO BID [facility] Last Admin: 06/15/21 08:31 Dose: 5 mg Documented by: Digoxin (Digoxin 0.125 Mg Tablet) 0.125 mg PO Q48H [facility] Last Admin: 06/15/21 06:44 Dose: 0.125 mg Documented by: Escitalopram Oxalate (Escitalopram Oxalate 10 Mg Tablet) 10 mg PO DAILY [facility] Last Admin: 06/15/21 08:31 Dose: 10 mg Documented by: Guaifenesin/Dextromethorphan (Guaifenesin Dm 100/10/5 Ml 5 Ml Syrup) 10 ml PO TID [facility] Last Admin: 06/15/21 16:04 Dose: Not Given Documented by: Vancomycin HCl 1,500 mg/ (Sodium Chloride) 500 mls @ 333.333 mls/hr IV Q24H [facility] Vancomycin HCl 1,000 mg/ (Sodium Chloride) 270 mls @ 270 mls/hr IV Q12H [facility] Piperacillin Sod/Tazobactam (Sod 3.375 gm/ Sodium Chloride) 50 mls @ 100 mls/hr IV Q6H [facility] Levetiracetam (Levetiracetam 500 Mg Tablet) 500 mg PO BID [facility] Last Admin: 06/15/21 08:31 Dose: 500 mg Documented by: Melatonin (Melatonin 3 Mg Tablet) 6 mg PO BEDTIME PRN PRN Reason: Insomnia Metoprolol Succinate (Metoprolol Succinate Er 100 Mg Tab.Er.24h) 100 mg PO DAILY [facility]; Protocol Last Admin: 06/15/21 06:39 Dose: 100 mg Documented by: Multivitamins/Vitamin C (Multivitamin Tablet) 1 tab PO DAILY [facility] Last Admin: 06/15/21 08:31 Dose: 1 tab Documented by: Nicotine (Nicotine 21 Mg Patch.Td24) 21 mg TRANSDERMA DAILY [facility] Last Admin: 06/15/21 08:31 Dose: Not Given Documented by: Omeprazole (Omeprazole 40 Mg Capsule.Dr) 40 mg PO DAILY@0630 [facility] Last Admin: 06/15/21 06:39 Dose: 40 mg Documented by: Pentoxifylline (Pentoxifylline Er 400 Mg Tablet.Er) 400 mg PO BID [facility] Last Admin: 06/15/21 10:12 Dose: 400 mg Documented by: Pharmacy Consult (Consult Rx Vancomycin Dosing) 1 each MISCELLANE DAILY PRN PRN Reason: Consult order Pharmacy Consult (Consult Rx Vancomycin Dosing) 1 each MISCELLANE DAILY PRN PRN Reason: Consult order Senna (Sennosides 8.6 Mg Tablet) 17.2 mg PO BEDTIME PRN PRN Reason: Constipation Sodium Chloride (0.9 % Sodium Chloride Flush 3 Ml Syringe) 3 ml IVFLUSH QSHIFT [facility] Vitamin E (Vitamin E (Dl,Tocopheryl Acet) 180 Mg (400 Unit) Capsule) 180 mg PO DAILY [facility] Last Admin: 06/15/21 10:12 Dose: 180 mg Documented by: Home Medications Medication Instructions Recorded Confirmed Last Taken Type apixaban 5 mg 5 mg PO BID 01/12/21 06/10/21 05/21/21 History tablet (Eliquis) pentoxifylline 1 tab PO BID 01/18/21 06/10/21 05/21/21 History 400 mg tablet,extended release B-complex with 1 tab PO DAILY 05/22/21 06/10/21 05/21/21 History vitamin C multivitamin 1 tab PO DAILY 05/22/21 06/10/21 05/21/21 History vitamin E 400 400 unit PO 06/10/21 06/10/21 Unknown History unit capsule DAILY Physical Exam Verdana 4l Vital Signs and Narrative: Verdana 4d Verdana 4d Vital Signs: Verdana 4d Verdana 4Bd Last Vital Signs Verdana 4d Mortgage Processing Manager New 4d Mortgage Processing Manager New 4d Temp 97.5 F 06/15/21 17:47 Mortgage Processing Manager New 4d Pulse 68 06/15/21 17:47 Mortgage Processing Manager New 4d Resp 24 H 06/15/21 17:47 BP 108/63 06/15/21 17:47 Pulse Ox 97 06/15/21 17:47 BMI result Body Mass Index 25.0 Gen: Appears be in no acute distress HEENT: NCAT, Moist mucosa. Pulmonary: coarse breath sounds, fair air entry CVS: Normal S1-S2 Abdomen: BS+, Soft, Nontender Extremities: Warm well perfused Neuro: Alert and awake. Results Labs CBC and Chem 7: 06/15/21 08:45 06/15/21 08:45 Labs: Laboratory Results - last 24 hr 06/15/21 06/15/21 06/15/21 08:45 08:45 16:00 MCV 86.5 MCH 28.6 MCHC 33.0 RDW 20.2 H Plt Count 191 MPV 10.0 Immature Gran % (Auto) 0.4 Neut % (Auto) 84.1 H Lymph % (Auto) 8.5 L [place] % (Auto) 6.6 Eos % (Auto) 0.2 Baso % (Auto) 0.2 Lymph # (Auto) 1.2 [place] # (Auto) 1.0 Eos # (Auto) 0.0 Baso # (Auto) 0.0 Abs Immat Gran (auto) 0.06 H Absolute Neuts (auto) 12.3 H Absolute Nucleated RBC 0.000 Nucleated RBC % (auto) 0.0 Anion Gap 10 L Estim Creat Clear Calc 74.4 Estimated GFR > 60 Random Glucose 164 H Lactic Acid 2.0 Calcium 7.7 L Total Bilirubin 0.7 AST 23 D ALT 44 H Alkaline Phosphatase 72 D Total Protein 4.8 L Albumin 2.4 L COVID-19 (TIFFANIE) COVID-19 Clin Com 06/15/21 19:34 MCV MCH MCHC RDW Plt Count MPV Immature Gran % (Auto) Neut % (Auto) Lymph % (Auto) [place] % (Auto) Eos % (Auto) Baso % (Auto) Lymph # (Auto) [place] # (Auto) Eos # (Auto) Baso # (Auto) Abs Immat Gran (auto) Absolute Neuts (auto) Absolute Nucleated RBC Nucleated RBC % (auto) Anion Gap Estim Creat Clear Calc Estimated GFR Random Glucose Lactic Acid Calcium Total Bilirubin AST ALT Alkaline Phosphatase Total Protein Albumin COVID-19 (TIFFANIE) Negative COVID-19 Clin Com See Note Imaging Radiologist's Impressions: Impressions Chest X-Ray 06/15/21 08:59 IMPRESSION: Patchy bilateral airspace disease concerning for a viral infiltrate. Clinical correlation recommended. Assessment and Plan (1) PNA (pneumonia): Status: Acute Plan 66-year-old male with a past medical history of hypertension, hyperlipidemia, CAD status post CABG, peripheral vascular disease, history of CVA, AFib on Eliquis, history of substance abuse, seizure disorder, tobacco dependence, COPD not on home oxygen; recent admission to the hospital for multifocal pneumonia discharge on 06/07/2021 presented to the hospital with a chief complaint of fall on 06/10/2021. Has been observed in the ER for case management/ rehab placement. Today patient developed cough and noted to have pneumonia. Admitted for further management. Pneumonia: Continue IV vancomycin and Zosyn. Concern for hospital-acquired pneumonia. Id consult for further recommendations. Chest x-ray showed patchy infiltrates. Recent chest x-ray on presentation on 06/10/2021 was unremarkable. Repeat COVID test was negative. Fall: Currently denies any symptoms. Physical therapy follow-up. Mild hypoxia: Patient was saturating 90-92% on room air. Placed on supplemental oxygen. Likely in setting of pneumonia. history of AFib: Rate controlled. Continue home digoxin, Eliquis. Patient blood pressure on the soft side. Continue home metoprolol with holding parameters. Will reduce the dose to 12.5 mg. History of seizures: Continue home liver cirrhosis time For all other chronic conditions, home medications will be continued DVT prophylaxis: Patient on Eliquis Code status: Full code Quality Stroke Does the patient have a stroke diagnosis?: No VTE Prior VTE?: No VTE Risk Level:: Medical - moderate - high VTE Device Contraindication: N/A - Device Ordered VTE Drug Contraindication: Treatment Not Indicated
--- NOTE | 2021-06-15 20:43 | PC.NURSE ---
Called to give report on patient to 3rd floor and was told to hold on the admission until she spoke with the receiving and processing supervisor. Rn stated that they normally do not take patient's on Cardiazem drips. Patient then assigned to [id number] and called to give report. Charge nurse to call this parts data writer back for report
[2021-06-15] MEDS: Piperacillin Sodium/Tazobactam 3.375 GM in 0.9 % Sodium Chloride 50 ML IV (20:52)
[2021-06-16] MEDS: Piperacillin Sodium/Tazobactam 3.375 GM in 0.9 % Sodium Chloride 50 ML IV ×4 (02:00→19:40)
[2021-06-16] MEDS: Melatonin 3 MG TABLET 6 MG PO ×2 (03:07→22:37)
[2021-06-16 04:07] VITALS: BP 92/44; PULSE 80; RESP 24; O2SAT 97
--- NOTE | 2021-06-16 05:05 | PC.NURSE ---
The pt rang his call bobby to inform staff that he was incontinent of stool. PRASHANTH De La Rosa and I cleansed his skin and changed the linens on the bed. he had a large, brown, loose bowel movement. The pt remained alert, calm and cooperative throughout.
--- NOTE | 2021-06-16 06:10 | PC.NURSE ---
Pt was dry when checked for wet bed.
[2021-06-16] MEDS: Omeprazole 40 MG CAPSULE.DR PO (06:19)
[2021-06-16 07:02] VITALS: BP 81/48; PULSE 70; RESP 24; O2SAT 93
--- NOTE | 2021-06-16 09:41 | P.PNIM_ITS ---
Subjective Subjective Date of Service: 06/17/21 Interval History: resting comfortably in bed denies cough, no shortness of breath, denies fever chills, wants to sleep and left alone. Review of Systems Review of Systems: Yes all other systems are reviewed and are negative Physical Exam Verdana 4l Vital Signs: Verdana 4d Verdana 4d Vital Signs: Verdana 4d Verdana 4Bd Last Vital Signs Verdana 4d Location Man New 4d Location Man New 4d Temp 98.7 F 06/15/21 22:08 Location Man New 4d Pulse 70 06/16/21 07:02 Location Man New 4d Resp 24 H 06/16/21 07:02 BP 81/48 L 06/16/21 07:02 Pulse Ox 93 06/16/21 07:02 BMI result Body Mass Index 25.0 Const: Other: Gen:? Awake alert, frail, no acute distress HEENT: sclera anicteric, moist mucus membranes Neck: supple Lungs: coarse breath sounds, no respiratory distress Heart: irregularly irregular, no murmurs Abd: soft, non-tender, non-distended Ext: no edema Skin: warm/well-perfused Neuro: alert?and oriented x3,no focal findings Psych: Depressed mood Objective Data Active Medications Acetaminophen (Acetaminophen 325 Mg Tablet) 650 mg PO Q6H PRN PRN Reason: Pain, Mild (Pain Scale 1-3) Albuterol/Ipratropium (Albuterol/Iprat 2.5/0.5mg 3 Ml Ampul.Neb) 3 ml INHALE Q4H PRN PRN Reason: Shortness of Breath/Wheezing Apixaban (Apixaban 5 Mg Tablet) 5 mg PO BID [facility] Last Admin: 06/15/21 20:51 Dose: 5 mg Documented by: YOANNA Digoxin (Digoxin 0.125 Mg Tablet) 0.125 mg PO Q48H [facility] Last Admin: 06/15/21 06:44 Dose: 0.125 mg Documented by: RICK Escitalopram Oxalate (Escitalopram Oxalate 10 Mg Tablet) 10 mg PO DAILY [facility] Last Admin: 06/15/21 08:31 Dose: 10 mg Documented by: BARBARAOPELes Guaifenesin/Dextromethorphan (Guaifenesin Dm 100/10/5 Ml 5 Ml Syrup) 10 ml PO TID [facility] Last Admin: 06/15/21 20:55 Dose: 10 ml Documented by: YOANNA Vancomycin HCl 1,500 mg/ (Sodium Chloride) 500 mls @ 333.333 mls/hr IV Q24H [facility] Piperacillin Sod/Tazobactam (Sod 3.375 gm/ Sodium Chloride) 50 mls @ 100 mls/hr IV Q6H [facility] Last Infusion: 06/16/21 02:30 Dose: 0 mls/hr Documented by: YOANNA Albumin Human (Kedbumin 25 %) 50 mls @ 100 mls/hr IV ONCE ONE Stop: 06/16/21 10:08 Levetiracetam (Levetiracetam 500 Mg Tablet) 500 mg PO BID [facility] Last Admin: 06/15/21 20:51 Dose: 500 mg Documented by: YOANNA Melatonin (Melatonin 3 Mg Tablet) 6 mg PO BEDTIME PRN PRN Reason: Insomnia Last Admin: 06/16/21 03:07 Dose: 6 mg Documented by: YOANNA Metoprolol Succinate (Metoprolol Succinate Er 12.5 Mg Halftab.Er.24h) 12.5 mg PO DAILY [facility]; Protocol Multivitamins/Vitamin C (Multivitamin Tablet) 1 tab PO DAILY [facility] Last Admin: 06/15/21 08:31 Dose: 1 tab Documented by: BRANDI Nicotine (Nicotine 21 Mg Patch.Td24) 21 mg TRANSDERMA DAILY [facility] Last Admin: 06/15/21 08:31 Dose: Not Given Documented by: BRANDI Non-Admin Reason: Patient Refused Omeprazole (Omeprazole 40 Mg Capsule.) 40 mg PO DAILY@0630 [facility] Last Admin: 06/16/21 06:19 Dose: 40 mg Documented by: YOANNA Pentoxifylline (Pentoxifylline Er 400 Mg Tablet.Er) 400 mg PO BID [facility] Last Admin: 06/15/21 21:00 Dose: 400 mg Documented by: YOANNA Pharmacy Consult (Consult Rx Vancomycin Dosing) 1 each MISCELLANE DAILY PRN PRN Reason: Consult order Senna (Sennosides 8.6 Mg Tablet) 17.2 mg PO BEDTIME PRN PRN Reason: Constipation Sodium Chloride (0.9 % Sodium Chloride Flush 3 Ml Syringe) 3 ml IVFLUSH QSHIFT [facility] Last Admin: 06/16/21 00:27 Dose: Not Given Documented by: YOANNA Non-Admin Reason: IV Running Vitamin E (Vitamin E (Dl,Tocopheryl Acet) 180 Mg (400 Unit) Capsule) 180 mg PO DAILY [facility] Last Admin: 06/15/21 10:12 Dose: 180 mg Documented by: BRANDI Labs CBC & Chem 7: 06/15/21 08:45 06/15/21 08:45 Labs: Laboratory Results - last 24 hr 06/15/21 06/15/21 16:00 19:34 Lactic Acid 2.0 COVID-19 (TIFFANIE) Negative COVID-19 Clin Com See Note Microbiology Microbiology Results: Microbiology 06/10/21 13:57 Blood Culture - Final Blood - Venous No growth after 5 days. 06/10/21 13:57 Blood Culture - Final Blood - Venous No growth after 5 days. Assessment and Plan (1) PNA (pneumonia): Status: Acute (2) Leukocytosis: Status: Acute (3) Failure to thrive in adult: Status: Acute Plan 66-year-old male with a past medical history of hypertension, hyperlipidemia, CAD status post CABG, peripheral vascular disease, history of CVA, AFib on Eliquis, history of substance abuse, seizure disorder, tobacco dependence, COPD? not on home oxygen; recent admission to the hospital for multifocal pneumonia, elevated liver enzymes, discharge on 06/07/2021 presented to the hospital with a chief complaint of fall on 06/10/2021.? Has been observed in the ER for case management/ rehab placement.? patient developed cough and noted to have pneumonia while in ED admitted for further management.? Pneumonia: patient afebrile, denies cough or shortness of breath, WBC improved since last admission, CT chest shows worsening bilateral infiltrate question aspiration/ mucus plugging on IV vancomycin and Zosyn day 1.? will DC IV vancomycin, since no evidence of MRSA continue Zosyn for now and will discuss antibiotic treatment and duration with ID ?Repeat COVID test was negative. continue supportive care with cough medications, oxygen as needed mechanical fall due to generalized weakness will need rehab placement. failure to thrive decreased by mouth intake low albumin will place on Ensure supplements and change diet to regular paroxysmal atrial fibrillation Rate controlled.? Continue home digoxin, Eliquis.? Patient blood pressure on the soft side.? Continue low dose metoprolol with holding parameters.? History of seizures: Continue home liver cirrhosis time recent admission for acute liver injury LFTs improved close to normal, question underlying etiology related to drug toxicity versus passive congestion versus ischemic hepatitis hepatitis serology negative abdominal Doppler negative ?seizure disorder continue levetiracteam, take seizure precautions history of substance abuse no symptoms of withdrawal history of peripheral arterial disease/coronary artery disease status post CABG continue metoprolol succinate + pentoxyfilline; is not on aspirin or statin due to recent liver toxicity and elevated INR, will repeat INR and Check lipid profile and resume statin if recommended. DVT prophylaxis:? Patient on Eliquis Code status:? Full code Quality Stroke Does the patient have a stroke diagnosis?: No VTE Prior VTE?: No VTE Risk Level:: Medical - moderate - high VTE Device Contraindication: N/A - Device Ordered VTE Drug Contraindication: Treatment Not Indicated
[2021-06-16 09:50] VITALS: BP 106/58; PULSE 70; RESP 17; O2SAT 93
[2021-06-16] MEDS: Multivitamin TABLET 1 TAB PO (10:55)
[2021-06-16] MEDS: levETIRAcetam 500 MG TABLET PO ×2 (10:55→20:25)
[2021-06-16] MEDS: Escitalopram Oxalate 10 MG TABLET PO (10:55)
[2021-06-16] MEDS: Apixaban 5 MG TABLET PO ×2 (10:55→20:25)
[2021-06-16] MEDS: guaiFENesin DM 100/10/5 ML 5 ML SYRUP 10 ML PO ×3 (10:55→20:25)
[2021-06-16] MEDS: Metoprolol Succinate ER 12.5 MG HALFTAB.ER.24H PO (11:00)
--- NOTE | 2021-06-16 12:17 | MHC.CM.PN ---
Patient was d/c'd [place] [facility] [place]. At that time, physical therapy was recommending STR. Patient declined at that time and went home with Zelalem GAO. Cynthia fell while at home and return to the ER due to a fall. Physical therapy eval completed. Short term rehab was recommended. Placement was difficult to find due to heroin use prior to last admission at [facility]. Patient has denied heroin use since d/c on 06/07. Patient admitted on 06/15 due to pneumonia. Attempted to meet with patient in regards to discharge planning. Patient currently sleeping. T/W spoke with patient's /HCP, Dinorah via telephone. Update about admission provided. Dinorah verbalized understanding that patient will be brought into the hosptial for admission and that it is anticipated patient will still need STR at d/c. PCP verified. Copy of HCP verified to be on file. Patient received 2 Vaccines and a booster. IMM explained and sent to Dinorah via certified mail. Continue to [facility] for d/c needs.
[2021-06-16] MEDS: Albumin Human 25 % 50 ML 100 ML IV (14:09)
[2021-06-16 15:51] VITALS: BP 117/55; PULSE 70; RESP 15; TEMP 37.2; O2SAT 93
--- NOTE | 2021-06-16 17:42 | PC.NURSE ---
Pt is alert and oriented x2-3 on arrival. pt admitted to rm 370 with a diagnosis of Pneumonia. Pt arrived via stretcher. #20 IVs to left upper arm and right hand. Pt was cooperative and interactive with care. He denies any pain but did complain of discomfort to the left heel. On assessment. left heel is slightly red but blanchable. Pt is Normal Sinus on Tele with HR in the 702. LS dim throughout with rhonchi to bases and middle lobes, and expiratory wheezes. Pt denies use of O2 at home but ED note states tht he is on 2l home O2. Pt saturating in the mid 90s. Skin is intact.
[2021-06-16 19:19] VITALS: BP 133/77; PULSE 72; RESP 16; TEMP 36.8; O2SAT 94
[2021-06-16] MEDS: 0.9 % Sodium Chloride Flush 3 ML SYRINGE IVFLUSH (19:40)
[2021-06-16] MEDS: Pentoxifylline ER 400 MG TABLET.ER PO (20:25)
--- NOTE | 2021-06-16 23:13 | P.CNID_ITS ---
History of Present Illness Data of Consult Service Date: 06/16/21 Requesting physician: Perlita Bradley Primary Care Provider: Unknown Physician HPI Reason for consult: possible respiratory infection He presents with fall He had been admitted in May and discharged 06/07 He fell and awaiting placement He was already treated for pneumonia with multiple agents including Ceftriaxone and Doxycycline MRSA swab negative He is not on oxygen Review of Systems Review of Systems: Yes all other systems are reviewed and are negative PMFSH Past Medical History Medical History 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 Atrial fibrillation Atrial flutter Atrial flutter CAD (coronary artery disease) Cardiac arrest Cardiomyopathy CHF (congestive heart failure) Cocaine abuse with intoxication COPD (chronic obstructive pulmonary disease) Coronary bypass graft mechanical complication Drug abuse Fall 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 Heroin use History of hemorrhagic cerebrovascular accident (CVA) without residual deficits Hyperlipemia Leukocytosis MDD (major depressive disorder), recurrent episode, moderate Opioid use disorder Opioid use disorder, moderate, dependence Paroxysmal atrial fibrillation Pneumonia Pneumonitis PVD (peripheral vascular disease) Seizure disorder Seizure-like activity Subclavian arterial stenosis Toxic encephalopathy Family History Family history: reviewed and not pertinent Surgical History Surgical History S/P CABG x 2 Social History Social History Household Members: Spouse Housing: House Do you presently have visiting nurse or other home services: No Unable to assess alcohol history related to: Unable to respond Alcohol intake: never Patient Tobacco Use Status: Never used Tobacco Tobacco use type: Cigarette Cigarette Packs Per Day: 2 Cigarettes Per Day: 40.0 Years Smoked: 30 e-Cigarette/Vaping Use: Currently Using Second Hand Smoke Exposure: Yes Substance Use Type: Heroin Advance Directives: Yes Advance Directives on File: Yes Advance Directives Date on File: 01/12/21 service: No Current occupational status: retired Meds Allergies Allergy/AdvReac Type Severity Reaction Status Date / Time No Known Allergies Allergy Unverified 01/12/21 01:03 Active Medications: Current Medications Acetaminophen (Acetaminophen 325 Mg Tablet) 650 mg PO Q6H PRN PRN Reason: Pain, Mild (Pain Scale 1-3) Albuterol/Ipratropium (Albuterol/Iprat 2.5/0.5mg 3 Ml Ampul.Neb) 3 ml INHALE Q4H PRN PRN Reason: Shortness of Breath/Wheezing Apixaban (Apixaban 5 Mg Tablet) 5 mg PO BID [facility] Last Admin: 06/16/21 20:25 Dose: 5 mg Documented by: Digoxin (Digoxin 0.125 Mg Tablet) 0.125 mg PO Q48H [facility] Last Admin: 06/15/21 06:44 Dose: 0.125 mg Documented by: Escitalopram Oxalate (Escitalopram Oxalate 10 Mg Tablet) 10 mg PO DAILY [facility] Last Admin: 06/16/21 10:55 Dose: 10 mg Documented by: Guaifenesin/Dextromethorphan (Guaifenesin Dm 100/10/5 Ml 5 Ml Syrup) 10 ml PO TID [facility] Last Admin: 06/16/21 20:25 Dose: 10 ml Documented by: Levetiracetam (Levetiracetam 500 Mg Tablet) 500 mg PO BID [facility] Last Admin: 06/16/21 20:25 Dose: 500 mg Documented by: Melatonin (Melatonin 3 Mg Tablet) 6 mg PO BEDTIME PRN PRN Reason: Insomnia Last Admin: 06/16/21 22:37 Dose: 6 mg Documented by: Metoprolol Succinate (Metoprolol Succinate Er 12.5 Mg Halftab.Er.24h) 12.5 mg PO DAILY [facility]; Protocol Last Admin: 06/16/21 11:00 Dose: 12.5 mg Documented by: Multivitamins/Vitamin C (Multivitamin Tablet) 1 tab PO DAILY [facility] Last Admin: 06/16/21 10:55 Dose: 1 tab Documented by: Nicotine (Nicotine 21 Mg Patch.Td24) 21 mg TRANSDERMA DAILY [facility] Last Admin: 06/16/21 10:56 Dose: Not Given Documented by: Omeprazole (Omeprazole 40 Mg Capsule.Dr) 40 mg PO DAILY@0630 [facility] Last Admin: 06/16/21 06:19 Dose: 40 mg Documented by: Pentoxifylline (Pentoxifylline Er 400 Mg Tablet.Er) 400 mg PO BID [facility] Last Admin: 06/16/21 20:25 Dose: 400 mg Documented by: Pharmacy Consult (Consult Rx Vancomycin Dosing) 1 each MISCELLANE DAILY PRN PRN Reason: Consult order Senna (Sennosides 8.6 Mg Tablet) 17.2 mg PO BEDTIME PRN PRN Reason: Constipation Sodium Chloride (0.9 % Sodium Chloride Flush 3 Ml Syringe) 3 ml IVFLUSH QSHIFT [facility] Last Admin: 06/16/21 19:40 Dose: 3 ml Documented by: Vitamin E (Vitamin E (Dl,Tocopheryl Acet) 180 Mg (400 Unit) Capsule) 180 mg PO DAILY [facility] Last Admin: 06/16/21 10:56 Dose: Not Given Documented by: Home Medications Medication Instructions Recorded Confirmed Last Taken Type apixaban 5 mg tablet (Eliquis) 5 mg PO BID 01/12/21 06/10/21 05/21/21 History pentoxifylline 400 mg 1 tab PO BID 01/18/21 06/10/21 05/21/21 History tablet,extended release B-complex with vitamin C 1 tab PO DAILY 05/22/21 06/10/21 05/21/21 History multivitamin 1 tab PO DAILY 05/22/21 06/10/21 05/21/21 History vitamin E 400 unit capsule 400 unit PO DAILY 06/10/21 06/10/21 Unknown History Physical Exam Vital Signs: Vital Signs: Last Vital Signs Temp 98.2 F 06/16/21 19:19 Pulse 72 06/16/21 19:19 Resp 16 06/16/21 19:19 BP 133/77 06/16/21 19:19 Pulse Ox 94 06/16/21 19:19 BMI result Body Mass Index 25.0 Const: General: cooperative Eyes: General: appearance normal, both eyes and all related structures Pupils: Equal, round and reactive pupils present Resp: Effort & Inspection: normal respiratory effort Cardio: Rate: regular rate GI: Palpation (GI): Soft to palpation and nontender Skin: General skin exam: no rashes or lesions noted Neuro: Cranial nerves: Yes Equal, round and reactive pupils present Extrem: General: Yes normal to inspection Results Labs CBC & Chem 7: 06/15/21 08:45 06/15/21 08:45 Microbiology Microbiology Results: Microbiology 06/15/21 16:00 Blood - Venous Blood Culture - Preliminary No growth after 24 hours. 06/15/21 16:00 Blood - Venous Blood Culture - Preliminary No growth after 24 hours. 06/10/21 13:57 Blood - Venous Blood Culture - Final No growth after 5 days. 06/10/21 13:57 Blood - Venous Blood Culture - Final No growth after 5 days. Assessment and Plan (1) Fall: Status: Resolved (2) Failure to thrive in adult: Status: Acute He has no oxygen demand,slight leukocytosis and was heavily treated just end last month for pneumonia There is no positive MRSA swab so doubt any new pneumonia,probably scarring lung or mucus plugging or substance use causing worsening CXR ?CHF Plan Would check procalcitonin and HIV test Stop Zosyn unless requires oxygen and then treat for aspiration with Zosyn
[2021-06-17] VITALS (12 sets, daily range): BP systolic 86–149; BP diastolic 56–83; PULSE 72–144; RESP 16–19; TEMP 36.2–37.1; O2SAT 93–98
--- NOTE | 2021-06-17 | ECG_ITS ---
Test Reason : cp Blood Pressure : / mmHG Vent. Rate : 101 BPM Atrial Rate : 306 BPM P-R Int : 000 ms QRS Dur : 098 ms QT Int : 416 ms P-R-T Axes : 000 067 115 degrees QTc Int : 539 ms Atrial fibrillation with premature ventricular or aberrantly conducted complexes Left ventricular hypertrophy with repolarization abnormality ( Vlad product ) Prolonged QT Abnormal ECG When compared with ECG of 14-JUN-2021 03:42, QT has lengthened Referred By: Fausto March Electronically Signed By:Mukesh Alvares
[2021-06-17 00:47] LABS: Procalcitonin 0.38 ng/mL
[2021-06-17] MEDS: Omeprazole 40 MG CAPSULE.DR PO (05:53)
[2021-06-17] MEDS: Metoprolol Succinate ER 12.5 MG HALFTAB.ER.24H PO (07:14)
[2021-06-17] MEDS: guaiFENesin DM 100/10/5 ML 5 ML SYRUP 10 ML PO ×3 (07:14→19:30)
[2021-06-17] MEDS: Pentoxifylline ER 400 MG TABLET.ER PO ×2 (07:14→19:30)
[2021-06-17] MEDS: Escitalopram Oxalate 10 MG TABLET PO (07:14)
[2021-06-17] MEDS: levETIRAcetam 500 MG TABLET PO ×2 (07:14→19:30)
[2021-06-17] MEDS: Vitamin E (Dl,Tocopheryl Acet) 180 MG (400 UNIT) CAPSULE PO (07:15)
[2021-06-17] MEDS: Multivitamin TABLET 1 TAB PO (07:15)
[2021-06-17] MEDS: 0.9 % Sodium Chloride Flush 3 ML SYRINGE IVFLUSH ×3 (07:15→19:32)
[2021-06-17] MEDS: Apixaban 5 MG TABLET PO ×2 (07:15→19:30)
[2021-06-17] MEDS: Digoxin 0.125 MG TABLET PO (08:51)
--- NOTE | 2021-06-17 12:41 | P.PNIM_ITS ---
Subjective Subjective Date of Service: 06/17/21 Interval History: being followed for pneumonia, patient offers no complaints of shortness of breath, no cough, no hypoxia, no fevers chills, no acute events overnight. Review of Systems Review of Systems: Yes all other systems are reviewed and are negative Physical Exam Verdana 4l Vital Signs: Verdana 4d Verdana 4d Vital Signs: Verdana 4d Verdana 4Bd Last Vital Signs Verdana 4d Coil Placer New 4d Coil Placer New 4d Temp 97.7 F 06/17/21 08:00 Coil Placer New 4d Pulse 77 06/17/21 08:00 Coil Placer New 4d Resp 18 06/17/21 08:00 BP 145/67 H 06/17/21 08:00 Pulse Ox 95 06/17/21 08:00 BMI result Body Mass Index 25.0 Const: Other: Gen:? Awake alert, frail, no acute distress HEENT: sclera anicteric, moist mucus membranes Neck: supple Lungs:? coarse breath sounds, no respiratory distress Heart: irregularly irregular, no murmurs Abd: soft, non-tender, non-distended Ext: no edema Skin: warm/well-perfused Neuro: alert?and oriented x3,no focal findings Psych: Appropriate affect Objective Data Active Medications Acetaminophen (Acetaminophen 325 Mg Tablet) 650 mg PO Q6H PRN PRN Reason: Pain, Mild (Pain Scale 1-3) Albuterol/Ipratropium (Albuterol/Iprat 2.5/0.5mg 3 Ml Ampul.Neb) 3 ml INHALE Q4H PRN PRN Reason: Shortness of Breath/Wheezing Apixaban (Apixaban 5 Mg Tablet) 5 mg PO BID [facility] Last Admin: 06/17/21 07:15 Dose: 5 mg Documented by: TERRI Digoxin (Digoxin 0.125 Mg Tablet) 0.125 mg PO Q48H [facility] Last Admin: 06/17/21 08:51 Dose: 0.125 mg Documented by: TERRI Escitalopram Oxalate (Escitalopram Oxalate 10 Mg Tablet) 10 mg PO DAILY [facility] Last Admin: 06/17/21 07:14 Dose: 10 mg Documented by: TERRI Guaifenesin/Dextromethorphan (Guaifenesin Dm 100/10/5 Ml 5 Ml Syrup) 10 ml PO TID [facility] Last Admin: 06/17/21 07:14 Dose: 10 ml Documented by: TERRI Levetiracetam (Levetiracetam 500 Mg Tablet) 500 mg PO BID [facility] Last Admin: 06/17/21 07:14 Dose: 500 mg Documented by: TERRI Melatonin (Melatonin 3 Mg Tablet) 6 mg PO BEDTIME PRN PRN Reason: Insomnia Last Admin: 06/16/21 22:37 Dose: 6 mg Documented by: LISE Metoprolol Succinate (Metoprolol Succinate Er 12.5 Mg Halftab.Er.24h) 12.5 mg PO DAILY [facility]; Protocol Last Admin: 06/17/21 07:14 Dose: 12.5 mg Documented by: TERRI Multivitamins/Vitamin C (Multivitamin Tablet) 1 tab PO DAILY [facility] Last Admin: 06/17/21 07:15 Dose: 1 tab Documented by: TERRI Nicotine (Nicotine 21 Mg Patch.Td24) 21 mg TRANSDERMA DAILY [facility] Last Admin: 06/17/21 07:26 Dose: Not Given Documented by: TERRI Non-Admin Reason: Patient Refused Omeprazole (Omeprazole 40 Mg Capsule.Dr) 40 mg PO DAILY@0630 [facility] Last Admin: 06/17/21 05:53 Dose: 40 mg Documented by: LISE Pentoxifylline (Pentoxifylline Er 400 Mg Tablet.Er) 400 mg PO BID [facility] Last Admin: 06/17/21 07:14 Dose: 400 mg Documented by: TERRI Pharmacy Consult (Consult Rx Vancomycin Dosing) 1 each MISCELLANE DAILY PRN PRN Reason: Consult order Senna (Sennosides 8.6 Mg Tablet) 17.2 mg PO BEDTIME PRN PRN Reason: Constipation Sodium Chloride (0.9 % Sodium Chloride Flush 3 Ml Syringe) 3 ml IVFLUSH QSHIFT [facility] Last Admin: 06/17/21 07:15 Dose: 3 ml Documented by: TERRI Vitamin E (Vitamin E (Dl,Tocopheryl Acet) 180 Mg (400 Unit) Capsule) 180 mg PO DAILY [facility] Last Admin: 06/17/21 07:15 Dose: 180 mg Documented by: TERRI Labs CBC & Chem 7: 06/15/21 08:45 06/15/21 08:45 Labs: Laboratory Results - last 24 hr 06/16/21 23:59 Procalcitonin 0.38 Microbiology Microbiology Results: Microbiology 06/15/21 16:00 Blood Culture - Preliminary Blood - Venous No growth after 24 hours. 06/15/21 16:00 Blood Culture - Preliminary Blood - Venous No growth after 24 hours. Assessment and Plan (1) PNA (pneumonia): Status: Acute (2) Leukocytosis: Status: Acute (3) Failure to thrive in adult: Status: Acute Plan 66-year-old male with a past medical history of hypertension, hyperlipidemia, CAD status post CABG, peripheral vascular disease, history of CVA, AFib on Eliquis, history of substance abuse, seizure disorder, tobacco dependence, COPD? not on home oxygen; recent admission to the hospital for multifocal pneumonia, elevated liver enzymes, discharge on 06/07/2021 presented to the hospital with a chief complaint of fall on 06/10/2021.? Has been observed in the ER for case management/ rehab placement.? patient developed cough and noted to have pneumonia while in ED admitted for further management.? Pneumonia: abnormal CT chest question etiology,patient afebrile, denies cough or shortness of breath, WBC improved since last admission s/p IV vancomycin and Zosyn x 1 day, since no evidence of MRSA, patient asymptomatic blood cultures x2 negative id recommended to discontinue IV antibiotics since patient recently treated aggressively for pneumonia. follow clinical course ?Repeat COVID test is negative. continue supportive care with cough medications, oxygen as needed mechanical fall due to generalized weakness, need rehab placement. failure to thrive decreased by mouth intake low albumin ,cont. Ensure supplements and regular diet paroxysmal atrial fibrillation Rate controlled.? Continue home digoxin, Eliquis.?Continue metoprolol with holding parameters, blood pressure improved, follow BP and will increase dose of metoprolol.? History of seizures: Continue home liver cirrhosis time recent admission for acute liver injury LFTs improved close to normal, question underlying etiology related to drug toxicity versus passive congestion versus ischemic hepatitis hepatitis serology negative abdominal Doppler negative. ?seizure disorder continue levetiracteam, take seizure precautions history of substance abuse no symptoms of withdrawal history of peripheral arterial disease/coronary artery disease status post CABG continue metoprolol succinate + pentoxyfilline; is not on aspirin or statin due to recent liver toxicity and elevated INR, will repeat INR and Check lipid profile and resume statin if recommended. DVT prophylaxis:? Patient on Eliquis Code status:? Full code Quality Stroke Does the patient have a stroke diagnosis?: No VTE Prior VTE?: No VTE Risk Level:: Medical - moderate - high VTE Device Contraindication: N/A - Device Ordered VTE Drug Contraindication: Treatment Not Indicated
--- NOTE | 2021-06-17 16:23 | PM.EVENT ---
Event Note Date of Service: 06/17/21 Event Note: came to see patient for rapid afib and hypotension - sbp 86. patient appeared undistressed, alert, denied chest pain or palpitations. given 500cc NS, 25mg toprol, will increase am toprol to 25mg daily. will check EKG. while in room patients heart rate improved to low 100s and sbp improved to 120s
[2021-06-17] MEDS: dilTIAZem HCL 50 MG/10 ML VIAL 10 MG IVPUSH (16:42)
[2021-06-17] MEDS: Metoprolol Succinate ER 25 MG TAB.ER.24H PO (16:43)
[2021-06-17 17:01] LABS: Vancomycin Trough < 3.0 mcg/mL (10.0-20.0)
--- NOTE | 2021-06-17 19:15 | MHC.PIE ---
Problem- Pt became tachycardic with HR sustaining at 144 for 3-5 mins. Intervention- 1.Tried having pt bear down and take some deep brteaths in. That did not work. 2. notified while obtaining VSS.- BP 84/61 with HR still at 144. 3. came to see pt. 4 EKG obtained 5.Metoprolol and IV push Cardizem and given Evaluation: Heart converted to Afib/aflutter with HR in the 70s-90s Pt resting with no distress. Vital signs stable
[2021-06-17] MEDS: Melatonin 3 MG TABLET 6 MG PO (21:43)
[2021-06-18] VITALS (7 sets, daily range): BP systolic 94–152; BP diastolic 56–86; PULSE 67–84; RESP 16–19; TEMP 36.1–37.3; O2SAT 94–100; BMI 25.0
--- NOTE | 2021-06-18 01:28 | MHC.PIE ---
p; 11 beats v tach noted by imc observer. i; dr curiel notified e; will cont to monitor
--- NOTE | 2021-06-18 03:34 | PM.EVENT ---
Event Note Date of Service: 06/18/21 Event Note: Fall: Mechanical nature. Denies any with head strike or loss of consciousness. Noted small bruise on the right lateral thigh on the upper 3rd. Exam benign. Will obtain hip x-rays and femur x-ray.
--- NOTE | 2021-06-18 03:42 | MHC.PIE ---
p; pt rang call bobby, this technical proposal writer went to answer the call bobby but on the way to the room, the bed and camera alarm sounded, when entered room, the pt wan on floor reporting i just wanted to go to bathroom . b/p 94/59. p 84. o2 95 ra. t 97.8 i; dr evangelista notified, nursing supervisor [employer] notified; new order xr now e; pt in xr, will cont to monitor
[2021-06-18] MEDS: Omeprazole 40 MG CAPSULE.DR PO (05:44)
[2021-06-18 06:18] LABS: INTERNATIONAL NORM RATIO 1.5 (0.9-1.1); Prothrombin Time 16.7 SEC (9.9-13.0)
--- NOTE | 2021-06-18 06:46 | MHC.PIE ---
p; 3 beat v tach i; dr curiel notified e; will cont to monitor
[2021-06-18 06:47] LABS: Cholesterol 144 mg/dL; HDL Cholesterol 26 mg/dL; LDL Cholesterol Calculated 100 mg/dl; Triglycerides 93 mg/dL
[2021-06-18 08:05] LABS: HIV AB/AG Nonreactive (Nonreactive); HIV Num 1 0.07 S/CO (0.00-0.99)
[2021-06-18] MEDS: guaiFENesin DM 100/10/5 ML 5 ML SYRUP 10 ML PO ×3 (08:54→19:34)
[2021-06-18] MEDS: Vitamin E (Dl,Tocopheryl Acet) 180 MG (400 UNIT) CAPSULE PO (08:56)
[2021-06-18] MEDS: Metoprolol Succinate ER 25 MG TAB.ER.24H PO (08:56)
[2021-06-18] MEDS: levETIRAcetam 500 MG TABLET PO ×2 (08:56→19:34)
[2021-06-18] MEDS: Apixaban 5 MG TABLET PO ×2 (08:56→19:34)
[2021-06-18] MEDS: Digoxin 0.125 MG TABLET PO (08:57)
[2021-06-18] MEDS: Multivitamin TABLET 1 TAB PO (08:57)
[2021-06-18] MEDS: Pentoxifylline ER 400 MG TABLET.ER PO ×2 (08:57→19:34)
[2021-06-18] MEDS: Escitalopram Oxalate 10 MG TABLET PO (08:58)
[2021-06-18] MEDS: 0.9 % Sodium Chloride Flush 3 ML SYRINGE IVFLUSH ×3 (08:58→19:34)
--- NOTE | 2021-06-18 11:41 | PC.NURSE ---
Skin/wound assessment completed. Patient has very dry/scaly skin on bilateral feet with a stage 1 pressure injury to left heel. Sween 24 moisturizing cream applied to bilateral feet and both feet elevated on pillows.
--- NOTE | 2021-06-18 12:10 | P.CDIC_ITS ---
CDI Concurrent Query Documentation Clarification: PHYSICIAN'S DOCUMENTATION REQUEST Date of Query: 06/18/21 1211 Patient Name: Phan Boateng Admit Date: 06/15/21 Dear Doctor, A review of the medical record indicates additional documentation may be needed. Please review below and update the documentation accordingly. Clinical Indicators: Verdana 4Bd Risk Factors/Clinical Indicators/Treatments Verdana 4d PMH: Acute combined systolic and diastolic CHF. ID: [id number] - Assessment/plan: CXR? CHF no sob, no hypoxia, no edema Please provide further specificity regarding the most likely type and acuity of CHF you are evaluating, treating, or monitoring. Treating, rule out, poa, resolved, chronic, H/O etc. Type: * Systolic * Diastolic * Combined Systolic/Diastolic * Other ? please specify * Unable to determine Acuity: * Acute * Chronic * Acute on chronic * Unable to determine Use of terms such as suspected, likely, concern for, or probable (associated with a specific diagnosis that is being evaluated, monitored, or treated as if it exists) are acceptable and can be coded in the inpatient setting, when documented at the time of discharge. Thank you, Iesha Puckett CCS, CDIS Extension: [phone] Please use your independent medical judgment in providing your response. THIS QUERY IS PART OF THE PERMANENT MEDICAL RECORD Provider Response: Other Other Diagnosis: ch systolic CHF stable
--- NOTE | 2021-06-18 12:50 | P.PNIM_ITS ---
Subjective Subjective Date of Service: 06/18/21 Interval History: events from last night review, patient fell while going to the bathroom, denies pain denies preceding symptoms of lightheadedness dizziness chest pain or palpitation. denies cough, no shortness of breath, no PND or orthopnea. Review of Systems Review of Systems: Yes all other systems are reviewed and are negative Physical Exam Verdana 4l Vital Signs: Verdana 4d Verdana 4d Vital Signs: Verdana 4d Verdana 4Bd Last Vital Signs Verdana 4d Photographic Engineer New 4d Photographic Engineer New 4d Temp 97.8 F 06/18/21 12:00 Photographic Engineer New 4d Pulse 78 06/18/21 12:00 Photographic Engineer New 4d Resp 18 06/18/21 12:00 BP 142/81 H 06/18/21 12:00 Pulse Ox 96 06/18/21 08:00 BMI result Body Mass Index 25.0 Const: Other: Gen:? Awake alert, frail, no acute distress HEENT: sclera anicteric, moist mucus membranes Neck: supple Lungs:? coarse breath sounds, no respiratory distress Heart: irregularly irregular, no murmurs Abd: soft, non-tender, non-distended Ext: no edema Skin: warm/well-perfused Neuro: alert?and oriented x3,no focal findings Psych: ? Appropriate affect Objective Data Active Medications Acetaminophen (Acetaminophen 325 Mg Tablet) 650 mg PO Q6H PRN PRN Reason: Pain, Mild (Pain Scale 1-3) Albuterol/Ipratropium (Albuterol/Iprat 2.5/0.5mg 3 Ml Ampul.Neb) 3 ml INHALE Q4H PRN PRN Reason: Shortness of Breath/Wheezing Apixaban (Apixaban 5 Mg Tablet) 5 mg PO BID [facility] Last Admin: 06/18/21 08:56 Dose: 5 mg Documented by: BRADFORD Digoxin (Digoxin 0.125 Mg Tablet) 0.125 mg PO DAILY [facility] Last Admin: 06/18/21 08:57 Dose: 0.125 mg Documented by: BRADFORD Diltiazem HCl (Diltiazem Hcl 50 Mg/10 Ml Vial) 10 mg IVPUSH ONCE PRN PRN Reason: HR>120 AFTER 10 MINUTES Escitalopram Oxalate (Escitalopram Oxalate 10 Mg Tablet) 10 mg PO DAILY [facility] Last Admin: 06/18/21 08:58 Dose: 10 mg Documented by: BRADFORD Guaifenesin/Dextromethorphan (Guaifenesin Dm 100/10/5 Ml 5 Ml Syrup) 10 ml PO TID [facility] Last Admin: 06/18/21 08:54 Dose: 10 ml Documented by: BRADFORD Levetiracetam (Levetiracetam 500 Mg Tablet) 500 mg PO BID [facility] Last Admin: 06/18/21 08:56 Dose: 500 mg Documented by: BRADFORD Melatonin (Melatonin 3 Mg Tablet) 6 mg PO BEDTIME PRN PRN Reason: Insomnia Last Admin: 06/17/21 21:43 Dose: 6 mg Documented by: MISTI Metoprolol Succinate (Metoprolol Succinate Er 25 Mg Tab.Er.24h) 25 mg PO DAILY [facility]; Protocol Last Admin: 06/18/21 08:56 Dose: 25 mg Documented by: BRADFORD Multivitamins/Vitamin C (Multivitamin Tablet) 1 tab PO DAILY [facility] Last Admin: 06/18/21 08:57 Dose: 1 tab Documented by: BRADFORD Nicotine (Nicotine 21 Mg Patch.Td24) 21 mg TRANSDERMA DAILY [facility] Last Admin: 06/18/21 08:55 Dose: Not Given Documented by: BRADFORD Non-Admin Reason: Patient Refused Omeprazole (Omeprazole 40 Mg Capsule.Dr) 40 mg PO DAILY@0630 [facility] Last Admin: 06/18/21 05:44 Dose: 40 mg Documented by: MISTI Pentoxifylline (Pentoxifylline Er 400 Mg Tablet.Er) 400 mg PO BID [facility] Last Admin: 06/18/21 08:57 Dose: 400 mg Documented by: BRADFORD Pharmacy Consult (Consult Rx Vancomycin Dosing) 1 each MISCELLANE DAILY PRN PRN Reason: Consult order Senna (Sennosides 8.6 Mg Tablet) 17.2 mg PO BEDTIME PRN PRN Reason: Constipation Sodium Chloride (0.9 % Sodium Chloride Flush 3 Ml Syringe) 3 ml IVFLUSH QSHIFT [facility] Last Admin: 06/18/21 08:58 Dose: 3 ml Documented by: BRADFORD Vitamin E (Vitamin E (Dl,Tocopheryl Acet) 180 Mg (400 Unit) Capsule) 180 mg PO DAILY [facility] Last Admin: 06/18/21 08:56 Dose: 180 mg Documented by: BRADFORD Labs CBC & Chem 7: 06/15/21 08:45 06/15/21 08:45 Labs: Laboratory Results - last 24 hr 06/16/21 06/17/21 06/18/21 23:59 16:26 05:55 PT 16.7 H INR 1.5 H Triglycerides Cholesterol LDL Cholesterol, Calc HDL Cholesterol Vancomycin Trough < 3.0 L HIV 1&2 Ab/P24 Ag 4thGn Nonreactive 06/18/21 05:55 PT INR Triglycerides 93 Cholesterol 144 LDL Cholesterol, Calc 100 HDL Cholesterol 26 Vancomycin Trough HIV 1&2 Ab/P24 Ag 4thGn Microbiology Microbiology Results: Microbiology 06/15/21 16:00 Blood Culture - Preliminary Blood - Venous No growth after 48 hours. 06/15/21 16:00 Blood Culture - Preliminary Blood - Venous No growth after 48 hours. Assessment and Plan (1) PNA (pneumonia): Status: Acute (2) Leukocytosis: Status: Acute (3) Failure to thrive in adult: Status: Acute Plan 66-year-old male with a past medical history of hypertension, hyperlipidemia, CAD status post CABG, peripheral vascular disease, history of CVA, AFib on Eliquis, history of substance abuse, seizure disorder, tobacco dependence, COPD? not on home oxygen; recent admission to the hospital for multifocal pneumonia, elevated liver enzymes, discharge on 06/07/2021 presented to the hospital with a chief complaint of fall on 06/10/2021.? Has been observed in the ER for case management/ rehab placement.? patient developed cough and noted to have pneumonia while in ED admitted for further management.? Pneumonia: abnormal CT chest question etiology,patient afebrile, denies cough or shortness of breath, WBC improved since last admission s/p IV vancomycin and Zosyn x 1 day, since no evidence of MRSA, patient asymptomatic blood cultures x2 negative id recommended to discontinue IV antibiotics since patient recently treated aggressively for pneumonia. follow clinical course ?Repeat COVID test is negative. continue supportive care with cough medications, oxygen as needed, no new symptoms suggestive of infection mechanical fall due to generalized weakness, need rehab placement. patient ,felll again with no injury, recommend to ambulate with help failure to thrive decreased by mouth intake low albumin ,cont. Ensure supplements and regular diet paroxysmal atrial fibrillation with RVR noted to have an episode of AFib with RVR patient remained asymptomatic, treated with IV fluid and additional dose of beta-blockers ventricular rate stabilized, will change digoxin dose to daily. History of seizures: Continue home medications recent admission for acute liver injury LFTs improved close to normal, question underlying etiology related to drug toxicity versus passive congestion versus ischemic hepatitis hepatitis serology negative abdominal Doppler negative. ?seizure disorder continue levetiracteam, take seizure precautions history of substance abuse no symptoms of withdrawal history of peripheral arterial disease/coronary artery disease status post CABG continue metoprolol succinate + pentoxyfilline; not on aspirin or statin due to recent liver toxicity and elevated INR, lipid profile revealed LDL 100, total cholesterol 144, INR 1.5. LFTs improved will resume statin Chronic heart failure with reduced EF no acute exacerbation noted. Continue beta-blockers hold Lasix no evidence of fluid overload DVT prophylaxis:? Patient on Eliquis Code status:? Full code Quality Stroke Does the patient have a stroke diagnosis?: No VTE Prior VTE?: No VTE Risk Level:: Medical - moderate - high VTE Device Contraindication: N/A - Device Ordered VTE Drug Contraindication: Treatment Not Indicated
--- NOTE | 2021-06-18 13:26 | MHC.CLN ---
NUTRITION NUTRITION CONSULT FOR SKIN INTEGRITY. STAGE I TO LEFT HEEL. DIET=REGULAR. PATIENT DISLIKES AND DOES NOT WANT ENSURE SUPPLEMENT. INTAKE APPEARS GOOD THIS ADMISSION. VERY POOR INTAKE AT PRIOR ADMISSION. NUTRITION DX NON SEVERE MALNUTRITION IN THE CONTEXT OF SOCIAL BEHAVIORAL/ENVIRONMENTAL CIRCUMSTANCES. MILD FAT LOSS IN ORBITALS. MILD MUSCLE DEPLETION IN CLAVICLES AND THIGH/CALF. HAS MEDICAL DX FAILURE TO THRIVE. CONTINUE REGULAR DIET. DISCONTINUE SUPPLEMENT. ENCOURAGE INTAKE AT MEALS AND SNACKS.
--- NOTE | 2021-06-18 14:55 | MHC.CM.PN ---
PATIENT HAS BEEN COVID-19 VACCINATED 09/01/20 10/02/20 04/21/21 INFORMATION ADDED TO SNF REFERRALS AND INTO EXPANSE
--- NOTE | 2021-06-18 15:29 | MHC.CM.PN ---
Addendum entered by Valentine Carlos 06/18/21 15:41: PATIENT NOW AWARE THAT [facility] IS ONLY REHAB OFFERING A BED AND PLAN IS TO AR TOMORROW. Original Note: PATIENT TO DC FRIDAY TO [facility] FOR REHAB ON Friday06/18/2021 FANY [phone]) AWARE OF PLAN AND THAT NO LOCAL BEDS ARE BEING OFFERED CASE MANAGEMENT FOLLOWING
[2021-06-18] MEDS: Acetaminophen 325 MG TABLET 650 MG PO (19:34)
[2021-06-19 03:42] VITALS: BP 138/75; PULSE 75; RESP 18; TEMP 36.5; O2SAT 100
[2021-06-19] MEDS: Omeprazole 40 MG CAPSULE.DR PO (05:53)
[2021-06-19 08:00] VITALS: BP 142/86; PULSE 74; RESP 18; TEMP 36.2; O2SAT 95
[2021-06-19] MEDS: levETIRAcetam 500 MG TABLET PO (08:38)
[2021-06-19] MEDS: 0.9 % Sodium Chloride Flush 3 ML SYRINGE IVFLUSH (08:38)
[2021-06-19] MEDS: Metoprolol Succinate ER 50 MG TAB.ER.24H PO (08:38)
[2021-06-19] MEDS: Multivitamin TABLET 1 TAB PO (08:39)
[2021-06-19] MEDS: Escitalopram Oxalate 10 MG TABLET PO (08:40)
[2021-06-19] MEDS: Digoxin 0.125 MG TABLET PO (08:40)
[2021-06-19] MEDS: Pentoxifylline ER 400 MG TABLET.ER PO (08:40)
[2021-06-19] MEDS: guaiFENesin DM 100/10/5 ML 5 ML SYRUP 10 ML PO (08:41)
[2021-06-19] MEDS: Vitamin E (Dl,Tocopheryl Acet) 180 MG (400 UNIT) CAPSULE PO (08:41)
[2021-06-19] MEDS: Apixaban 5 MG TABLET PO (08:41)
--- NOTE | 2021-06-19 08:59 | MHC.CM.PN ---
Addendum entered by Valentine Carlos 06/19/21 09:01: FANY ([phone]) IS AWARE THAT TRANSFER IS FOR 100 TO [facility] AND THAT ON DAY 21, THERE WILL BE A COPAY OF $194.50 PER DAY. FANY STATES SHE HOPES HE WILL BE HOME BEFORE THAT, SHE AND PATIENT DO NOT HAVE THE FUNDS TO COVER THE COPAY Original Note: PATIENT TO TRANSFER TO [facility] VIA [facility]. TIME REQUEST FOR 1100. RN AND UNIT AWARE OF PLAN. PATIENT IS TELLING HIS WHEN CASE MANAGEMENT LEFT THE ROOM. IMM 06/18 IN CHART.
--- NOTE | 2021-06-19 10:21 | P.DS_ITS ---
DS: Providers Provider Date of Service: 06/19/21 Date of admission: 06/15/21 19:49 Primary care physician: Tony Rhodes MD Consults: 06/15/21 19:54 Consult to Infectious Diseases Routine Consulting Provider: Ebony Darling Reason for consultation: Hosp Acquired PNA DS: Diagnosis Discharge Diagnosis (1) PNA (pneumonia): Status: Acute (2) Leukocytosis: Status: Acute (3) Failure to thrive in adult: Status: Acute DS: Summary Hospital Course Hospital Course: Chief Complaint: Cough ? 66-year-old male with a past medical history of hypertension, hyperlipidemia, CAD status post CABG, peripheral vascular disease, history of CVA, AFib on Eliquis, history of substance abuse, seizure disorder, tobacco dependence, COPD? not on home oxygen; recent admission to the hospital for multifocal pneumonia discharge on 06/07/2021 presented to the hospital with a chief complaint of fall.? Per report patient was not able to take care of himself at home.? Patient refused to go to rehab with time of the discharge on 06/07/2021.? Patient denied any chest pain palpitations lightheadedness or dizziness at the time.? Being observed in the ER since 06/10/2021 for case management/ rehab placement.? Today ER called in mention patient noted to be in mild respiratory distress, tachypneic tachycardic and has been having cough; chest x-ray showed patchy infiltrates.? Concern for pneumonia.? Patient was started on broad-spectrum antibiotics.? Patient was also noted to be hypoxic- placed on supplemental oxygen.? Admitted to the hospital for further management.? Patient reports he has been having cough.? Denies any sputum production.? Denies any chest pain palpitations.? Denies any numbness tingling.? Denies any GI symptoms.? hospital course 66-year-old male with a past medical history of hypertension, hyperlipidemia, CAD status post CABG, peripheral vascular disease, history of CVA, AFib on Eliquis, history of substance abuse, seizure disorder, tobacco dependence, COPD? not on home oxygen; recent admission to the hospital for multifocal pneumonia, elevated liver enzymes, discharge on 06/07/2021 presented to the hospital with a chief complaint of fall on 06/10/2021.? Has been observed in the ER for case management/ rehab placement.?? patient developed cough and noted to have pneumonia while in ED admitted for further management.? admitted for question?Pneumonia due to?abnormal CT chest?,patient afebrile, no cough or shortness of breath, WBC improved since last admission, received IV vancomycin and Zosyn for 1 day blood cultures time to came back negative patient evaluated by Infectious Disease she recommend to discontinue IV antibiotics since patient recently treated aggressively for pneumonia during her recent hospitalization, repeat COVID negative, abnormal CT chest question related to mucous plugging, no evidence of CHF, patient followed closely and remained hemodynamically stable therefore no further intervention recommended repeat chest x-ray in 2-3 weeks for follow-up ? ?mechanical fall? due to generalized weakness, being discharged to rehab for physical therapy. ?failure to thrive By mouth intake improved, recommend Ensure supplements and regular diet ?paroxysmal atrial fibrillation? with RVR noted to have an episode of AFib with RVR patient remained asymptomatic, treated with IV fluid and additional dose of beta-blockers ventricular rate stabilized, dose of metoprolol increased to 50 mg daily and digoxin dose changed to 0.125 mg daily ventricular rate and blood pressure remains stable. ?History of seizures: Continue home? medications ?recent admission for acute liver injury LFTs improved , question underlying etiology related to drug toxicity versus passive congestion versus ischemic hepatitis, hepatitis serology negative, no abdominal pain ?seizure disorder,?continue levetiracteam, take seizure precautions ?history of substance abuse no symptoms of withdrawal ?history of peripheral arterial disease/coronary artery disease status post CABG?continue metoprolol succinate + pentoxyfilline, started back on statin since liver enzyme normalized, lipid profile revealed LDL 100, total cholesterol 144, INR 1.5. ? Chronic heart failure with reduced EF, no acute exacerbation noted.? Continue beta-blockers, hold Lasix no evidence of fluid overload Time Spent with Patient Time attestation: Total time spent providing and/or coordinating discharge services: Discharge coordination time: Greater than 30 minutes Quality: Stroke Does the patient have a stroke diagnosis?: No Physical Exam Vital Signs: Vital Signs: Last Vital Signs Temp 97.2 F 06/19/21 08:00 Pulse 74 06/19/21 08:00 Resp 18 06/19/21 08:00 BP 142/86 H 06/19/21 08:00 Pulse Ox 95 06/19/21 08:00 BMI result Body Mass Index 25.0 Const: Other: Gen:? Awake alert, no acute distress HEENT: sclera anicteric, moist mucus membranes Neck: supple Lungs:? coarse breath sounds, no respiratory distress Heart: irregularly irregular, no murmurs Abd: soft, non-tender, non-distended Ext: no edema Skin: warm/well-perfused Neuro: alert?and oriented x3,no focal findings Psych: ? Appropriate affect DS: Data Data Completed and Pending Completed studies during hospitalization [Text1]: Procedures Insertion of Endotracheal Airway into Trachea, Via Natural or Artificial Opening Endoscopic (01/18/21) Insertion of Infusion Device into Superior Vena Cava, Percutaneous Approach (01/18/21) Introduction of Vasopressor into Central Vein, Percutaneous Approach (01/18/21) Respiratory Ventilation, 24-96 Consecutive Hours (01/18/21) Labs on day of discharge: Preliminary micro results at discharge 06/15/21 16:00 Blood Culture - Preliminary Blood - Venous No growth after 48 hours. 06/15/21 16:00 Blood Culture - Preliminary Blood - Venous No growth after 48 hours. Discharge Plan Discharge Patient Disposition: Xfer [facility] Discharge Diagnosis: Atrial fibrillation with RVR failure to thrive unsteady gait Referrals: [facility] [Outside] - 1 Week ([phone] [place] [address]) Tony Rhodes MD [Primary Care Provider] - 1 Week Discharge Medications: New sennosides [Senna Lax] 8.6 mg Tablet 17.2 mg PO BEDTIME PRN (Reason: Constipation) Qty: 30 0RF acetaminophen 325 mg Tablet 650 mg PO Q6H PRN (Reason: Pain, Mild (Pain Scale 1-3)) Qty: 30 0RF melatonin 3 mg Tablet 6 mg PO BEDTIME PRN (Reason: Insomnia) Qty: 30 0RF metoprolol succinate 50 mg tablet extended release 24 hr 50 mg PO DAILY Qty: 30 0RF atorvastatin [Lipitor] 20 mg tablet 20 mg PO DAILY Qty: 30 0RF Continued pentoxifylline 400 mg tablet extended release 1 tab PO BID 0RF levetiracetam 500 mg Tablet 500 mg PO BID Qty: 60 0RF Eliquis 5 mg tablet 5 mg PO BID 0RF multivitamin Tablet 1 tab PO DAILY 0RF B-complex with vitamin C Tablet 1 tab PO DAILY 0RF omeprazole 40 mg Capsule,Delayed Release(Dr/Ec) 40 mg PO DAILY@0630 Qty: 30 0RF digoxin 125 mcg (0.125 mg) Tablet 0.125 mg PO Q2D Qty: 30 0RF escitalopram oxalate 10 mg Tablet 10 mg PO DAILY Qty: 30 0RF nicotine 21 mg/24 hr Patch 24 Hour 21 mg transdermal DAILY Qty: 21 0RF vitamin E 400 unit Capsule 400 unit PO DAILY 0RF Changed digoxin 125 mcg (0.125 mg) Tablet 0.125 mg PO DAILY Qty: 30 0RF Discontinued metoprolol succinate 100 mg Tablet Extended Release 24 Hr 100 mg PO DAILY Qty: 30 0RF Protocol: Hold for SBP/HR < HOLD for SBP < : 90 HOLD for HR < : 60 dextromethorphan-guaifenesin 10-100 mg/5 mL Syrup 10 ml PO TID Qty: 240 0RF doxycycline hyclate 100 mg Tablet 100 mg PO Q12H Qty: 6 0RF Discharge Orders: Discharge Order (Routine); Ordered 06/19/21 Ordered By: Perlita Bradley Diet: advance to usual diet and low fat, low cholesterol Activity on Discharge: As tolerated Stand Alone Forms: Patient Portal Discharge page Care Plan Goals: failure to thrive will need physical therapy, generalized weakness high fall risk/ intermittent atrial fibrillation with RVR continue current medications including beta blockers and digoxin follow-up with cardiology, prior history of drug abuse strongly recommended to abstain from illicit drugs/ no evidence of pneumonia follow chest x-ray in 2-3 weeks for follow up on recent abnormal cxr Health Concerns: coronary artery disease with prior AR CABG and cardiomyopathy recommend to continue beta blockers Eliquis and outpatient follow-up with Cardiology take high-protein diet and Ensure twice daily Plan of Treatment: Outpatient follow-up with Dr Holden at [facility] cardiology in next 1-2 weeks to discuss rate control versus rhythm control strategy and potential ablation versus cardioversion Outpatient follow-up with primary care physician in 1-2 weeks Assessment: per discharge summary
[2021-06-19 11:05] VITALS: BP 134/72; PULSE 78; RESP 18; TEMP 36.8; O2SAT 93
--- NOTE | 2021-06-19 12:08 | MHC.CM.PN ---
POST DC NOTE- CALL FROM ROBERTO OF [facility] ([phone]) ROBERTO IS ASKING FOR A BACK-UP PAYOR SOURCE FOR ANY TIME AFTER 20 DAYS IN REHAB. IT WAS EXPLAINED THAT THERE IS NO BACK UP PAYOR AND PATIENT WOULD EITHER HAVEOT AGREE TO PAYING PRIVATELY FOR COPAY (STARTING DAY 21) OR POSSIBLE ASSISTANCE WITH [facility]PLICATION. ROBERTO VERBALIZES COMPREHENSION AND IS NOTING PATIENT'S CHART ACCORDINGLY.
== END 2021-06-19 12:00 | disposition skilled nursing facility (03) | DRG 194 ==
LOC: HO.ED 06-11 12:53 → HO.EDOVER 06-15 20:01 → HO.S3 06-16 13:42
PROVIDERS: Internal Medicine; Nurse Practitioner Family; Physician Assistant; Physician Assistant Medical; Admitting Provider Hospitalist; Emergency Provider Emergency Medicine; PCP Internal Medicine; Visit Provider Hospitalist
DX: J18.9 Pneumonia, unspecified organism (principal); I50.22 Chronic systolic (congestive) heart failure; F17.210 Nicotine dependence, cigarettes, uncomplicated; Z71.6 Tobacco abuse counseling; I25.10 Atherosclerotic heart disease of native coronary artery without angina pectoris; G40.909 Epilepsy, unspecified, not intractable, without status epilepticus; D72.829 Elevated white blood cell count, unspecified; I95.9 Hypotension, unspecified; E78.5 Hyperlipidemia, unspecified; I48.0 Paroxysmal atrial fibrillation; R62.7 Adult failure to thrive; Z68.25 Body mass index [BMI] 25.0-25.9, adult; Z86.73 Personal history of transient ischemic attack (TIA), and cerebral infarction without residual deficits; Z20.822 Contact with and (suspected) exposure to COVID-19; Z95.1 Presence of aortocoronary bypass graft; Z79.01 Long term (current) use of anticoagulants; Z79.899 Other long term (current) drug therapy
CPT/HCPCS: 36415; 70450; 71046; 71250; 73502; 73552; 80048; 80053; 80061; 80162; 80202; 80307; 81003; 82550; 83605; 83735; 84145; 84484; 85025; 85610; 87040; 87389; 87635; 93005; 97162; 99285; J0692; J2543; J3370; P9047; Q0163

== ENCOUNTER 2021-07-09 16:02 | Emergency (ER) | payer MEDICARE, SELFPAY ==
[2021-07-09 16:17] VITALS: BP 108/69; PULSE 77; RESP 9; TEMP 35.5; O2SAT 99; BMI 21.5
--- NOTE | 2021-07-09 16:23 | ED_ITS ---
HPI - Overdose General Chief Complaint: Overdose Stated Complaint: OVERDOSE Time Seen by Provider: 07/09/21 16:21 Source: patient and EMS Mode of arrival: EMS Limitations: no limitations History of Present Illness HPI Narrative: 66-year-old male presents via EMS for suspected heroin overdose. complaint: accidental overdose Onset (ago): hour(s) (Within the hour of arrival) Timing confirmed by: family member Intent: other (Wanted to get high) How Overdose Was Discovered: called family/friend Context: Intentional Overdose: drug/ETOH problems Context: Accidental Overdose: wanted to get high Treatments Prior to Arrival: narcan and antiemetics Related Data Home Medications Medication Instructions Recorded Confirmed apixaban 5 mg tablet (Eliquis) 5 mg PO BID 01/12/21 06/10/21 pentoxifylline 400 mg 1 tab PO BID 01/18/21 06/10/21 tablet,extended release B-complex with vitamin C 1 tab PO DAILY 05/22/21 06/10/21 multivitamin 1 tab PO DAILY 05/22/21 06/10/21 vitamin E 400 unit capsule 400 unit PO DAILY 06/10/21 06/10/21 Previous Rx's Medication Instructions Recorded levetiracetam 500 mg tablet 500 mg PO BID #60 tab 01/27/21 escitalopram oxalate 10 mg tablet 10 mg PO DAILY #30 tab 06/05/21 nicotine 21 mg/24 hr daily 21 mg TRANSDERMAL DAILY #21 ea 06/05/21 transdermal patch omeprazole 40 mg capsule,delayed 40 mg PO DAILY@0630 #30 cap 06/05/21 release acetaminophen 325 mg tablet 650 mg PO Q6H PRN #30 tab 06/19/21 atorvastatin 20 mg tablet (Lipitor) 20 mg PO DAILY #30 tab 06/19/21 digoxin 125 mcg (0.125 mg) tablet 0.125 mg PO DAILY #30 tab 06/19/21 melatonin 3 mg tablet 6 mg PO BEDTIME PRN #30 tab 06/19/21 metoprolol succinate 50 mg 50 mg PO DAILY #30 tab 06/19/21 tablet,extended release 24 hr sennosides 8.6 mg tablet (Senna 17.2 mg PO BEDTIME PRN #30 tab 06/19/21 Lax) Allergies Allergy/AdvReac Type Severity Reaction Status Date / Time No Known Allergies Allergy Unverified 01/12/21 01:03 Review of Systems Review of Systems: Constitutional: Positive overdose, No Fever, No Chills ENT/Mouth: No sore throat, No Rhinorrhea Eyes: No Eye Pain, No Swelling, No Redness Cardiovascular: No Chest Pain, No SOB Respiratory: No Cough, No Sputum Gastrointestinal: No Nausea, No Vomiting, No Diarrhea, No abdominal Pain Genitourinary: No Dysuria, No Hematuria Musculoskeletal: No joint pain, No Myalgias, No Joint Swelling Skin: No Skin Lesions, No rash Neuro: No Weakness, No Numbness, No Loss of Consciousness, No Dizziness, No Headache Psych: No Anxiety, No Depression, No SI/HI/AH/VH Heme/Lymph: No Bruising, No Bleeding,No Lymphadenopathy Endocrine: No Polyuria, No Polydipsia Yes all other systems are reviewed and are negative COUNT INCLUDES THE [facility] Past Medical History Attestation statement: The following information was validated with the patient. 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 Atrial fibrillation Atrial flutter Atrial flutter CAD (coronary artery disease) Cardiac arrest Cardiomyopathy CHF (congestive heart failure) Cocaine abuse with intoxication COPD (chronic obstructive pulmonary disease) Coronary bypass graft mechanical complication Drug abuse Fall 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 Heroin use History of hemorrhagic cerebrovascular accident (CVA) without residual deficits Hyperlipemia Leukocytosis MDD (major depressive disorder), recurrent episode, moderate Opioid use disorder Opioid use disorder, moderate, dependence Paroxysmal atrial fibrillation Pneumonia Pneumonitis PVD (peripheral vascular disease) Seizure disorder Seizure-like activity Subclavian arterial stenosis Toxic encephalopathy Surgical History S/P CABG x 2 Social History Social History Household Members: Spouse Housing: House Do you presently have visiting nurse or other home services: No Unable to assess alcohol history related to: Unable to respond Alcohol intake: never Patient Tobacco Use Status: Never used Tobacco Tobacco use type: Cigarette Cigarette Packs Per Day: 2 Cigarettes Per Day: 40.0 Years Smoked: 30 e-Cigarette/Vaping Use: Currently Using Second Hand Smoke Exposure: Yes Substance Use Type: Heroin Advance Directives: Yes Advance Directives on File: Yes Advance Directives Date on File: 01/12/21 service: No Current occupational status: retired Physical Exam Vital Signs: Vital Signs: Last Vital Signs Temp 95.9 F L 07/09/21 16:17 Pulse 77 07/09/21 16:17 Resp 9 L 07/09/21 16:17 BP 108/69 07/09/21 16:17 Pulse Ox 99 07/09/21 16:17 Oxygen Flow Rate 3 07/09/21 16:17 BMI result Body Mass Index 21.5 Appearance: Alert. Oriented X3. No acute distress. Eyes: Pupils equal, round and reactive to light. ENT: Pharynx normal. Neck: Normal inspection. Neck supple. CVS: Normal heart rate and rhythm. Pulses normal. Respiratory: No respiratory distress. Breath sounds normal. Even unlabored respirations. Abdomen: Soft and nontender. Skin: Skin warm and dry. Normal skin color. Normal skin turgor. Extremities: No lower extremity edema. Moves all extremities against resist ance. Neuro: No motor deficit. No sensory deficit. Cranial nerves 2-12 intact. Course Course Course Narrative: 66-year-old male presents via EMS for suspected heroin overdose. Patient does admit to using 1 bag. [facility], stated that he wanted to get high, bag of heroin that he obtain was a little bit too strong for him. Upon arrival to emergency department he was given 0.4 of Narcan and some Zofran. 16:37 patient is alert oriented x4, even unlabored respirations, maintaining airway. 17:08 patient alert oriented x4, even unlabored respirations. Answering questions politely and appropriately. Vital signs are stable and within normal limits. 17:30 even unlabored respirations continue, his sat 98% on room air. Alert oriented x4. Recovery team in to discuss options for possible detox assistance. Patient verbalized understanding of and agrees to plan of care discharge home. Verbalized understanding of signs and symptoms indicating need for emergent intervention MDM - Overdose Differential Diagnosis Differential diagnosis: Likely drug overdose Medical Records Attestation: I reviewed the patient's medical records. Discharge Plan Discharge Clinical Impression: Drug overdose Patient Disposition: Home, Self-Care Instructions: Adult Overdose (ED) Additional Instructions: Please consider detox. We treated you for heroin overdose. Thank you for choosing this emergency department for evaluation. Please follow-up with primary care physician as needed. Return to the emergency department for any new, concerning, or worsening symptoms. Prescriptions: No Action pentoxifylline 400 mg tablet extended release 1 tab PO BID 0RF levetiracetam 500 mg Tablet 500 mg PO BID Qty: 60 0RF Eliquis 5 mg tablet 5 mg PO BID 0RF multivitamin Tablet 1 tab PO DAILY 0RF B-complex with vitamin C Tablet 1 tab PO DAILY 0RF omeprazole 40 mg Capsule,Delayed Release(Dr/Ec) 40 mg PO DAILY@0630 Qty: 30 0RF escitalopram oxalate 10 mg Tablet 10 mg PO DAILY Qty: 30 0RF nicotine 21 mg/24 hr Patch 24 Hour 21 mg transdermal DAILY Qty: 21 0RF vitamin E 400 unit Capsule 400 unit PO DAILY 0RF sennosides [Senna Lax] 8.6 mg Tablet 17.2 mg PO BEDTIME PRN (Reason: Constipation) Qty: 30 0RF acetaminophen 325 mg Tablet 650 mg PO Q6H PRN (Reason: Pain, Mild (Pain Scale 1-3)) Qty: 30 0RF melatonin 3 mg Tablet 6 mg PO BEDTIME PRN (Reason: Insomnia) Qty: 30 0RF digoxin 125 mcg (0.125 mg) Tablet 0.125 mg PO DAILY Qty: 30 0RF metoprolol succinate 50 mg tablet extended release 24 hr 50 mg PO DAILY Qty: 30 0RF atorvastatin [Lipitor] 20 mg tablet 20 mg PO DAILY Qty: 30 0RF Interventions: ED Discharge Assessment Last Done: 07/09/21 17:47 Discharge Date/Time: 07/09/21 17:48
[2021-07-09] MEDS: Naloxone HCl 0.4 MG/ML VIAL IVPUSH (16:33)
[2021-07-09] MEDS: ondansetron HCL 4 MG/2 ML VIAL IVPUSH (16:34)
--- NOTE | 2021-07-09 17:36 | HO.SUDE ---
Recovery Support note: Patient is a 66 year old [place] speaking male who presented [place] [facility] [place] after an accidental overdose. This sba underwriter met with patient to discuss substance use and recovery supports. Patient reports he was in the hospital and STR for a total of three weeks and returned home today. Patient states well I didn't last long, referring to his relapse. Patient reports he has likely received Narcan in the past however cannot specify if he has overdosed or how many times. Patient reports using one bag a day intranasally and that he has been using at this rate for two years since he first started at the age of 64. Historically, patient has not experienced withdrawal symptoms when he stops using. Patient acknowledges the danger and harm in daily heroin use, however reports I like the shit, I don't want to stop. Patient is not interested in medications for opiate use disorder. Patient reports a diagnosis of depression. Discussed harm reduction strategies with patient. Patient to be discharged with Narcan. Discussed case with patient's ED provider.
== END 2021-07-09 17:48 | disposition home or self-care (01) ==
PROVIDERS: Emergency Provider Emergency Medicine
DX: T40.1X1A Poisoning by heroin, accidental (unintentional), initial encounter (principal); F11.20 Opioid dependence, uncomplicated; Y92.9 Unspecified place or not applicable; F32.A Depression, unspecified; F14.10 Cocaine abuse, uncomplicated; I48.0 Paroxysmal atrial fibrillation; I11.0 Hypertensive heart disease with heart failure; I50.41 Acute combined systolic (congestive) and diastolic (congestive) heart failure; F17.200 Nicotine dependence, unspecified, uncomplicated; Z86.73 Personal history of transient ischemic attack (TIA), and cerebral infarction without residual deficits; Z79.01 Long term (current) use of anticoagulants
CPT/HCPCS: 96374; 96375; 99283; 99284; J2405

== ENCOUNTER 2022-05-04 22:10 | Emergency (ER) | payer MEDICARE, SELFPAY ==
[2022-05-04 22:24] VITALS: BP 121/65; BP 144/78; PULSE 76; PULSE 79; RESP 14; TEMP 36.9; O2SAT 93; BMI 19.3
--- NOTE | 2022-05-04 22:29 | ED.OVERDOSE ---
HPI - Overdose General Stated Complaint: overdose Time Seen by Provider: 05/04/22 22:12 Source: patient and EMS Mode of arrival: EMS Limitations: no limitations History of Present Illness HPI Narrative: 67-year-old male history of drug abuse and multiple ED visit for heroin overdose was found by his unresponsive, patient was given EMC who are very familiar with the patient who responded to Narcan, on arrival patient is awake, alert, oriented x3, declined SI or HI, patient admitted to using half a bag of heroin. No headache, no CP, no SOB, no abdominal pain, no nausea, no vomiting, no diarrhea. Related Data Home Medications Medication Instructions Recorded Confirmed apixaban 5 mg tablet (Eliquis) 5 mg PO BID 01/12/21 06/10/21 pentoxifylline 400 mg 1 tab PO BID 01/18/21 06/10/21 tablet,extended release B-complex with vitamin C 1 tab PO DAILY 05/22/21 06/10/21 multivitamin 1 tab PO DAILY 05/22/21 06/10/21 vitamin E 268 mg (400 unit) capsule 400 unit PO DAILY 06/10/21 06/10/21 Previous Rx's Medication Instructions Recorded levetiracetam 500 mg tablet 500 mg PO BID #60 tabs 01/27/21 escitalopram oxalate 10 mg tablet 10 mg PO DAILY #30 tabs 06/05/21 nicotine 21 mg/24 hr daily 21 mg transdermal DAILY #21 ea 06/05/21 transdermal patch omeprazole 40 mg capsule,delayed 40 mg PO DAILY@0630 #30 caps 06/05/21 release acetaminophen 325 mg tablet 650 mg PO Q6H PRN Pain, Mild (Pain 06/19/21 Scale 1-3) #30 tabs atorvastatin 20 mg tablet (Lipitor) 20 mg PO DAILY #30 tabs 06/19/21 digoxin 125 mcg (0.125 mg) tablet 0.125 mg PO DAILY #30 tabs 06/19/21 melatonin 3 mg tablet 6 mg PO BEDTIME PRN Insomnia #30 06/19/21 tabs metoprolol succinate 50 mg 50 mg PO DAILY #30 tabs 06/19/21 tablet,extended release 24 hr sennosides 8.6 mg tablet (Senna 17.2 mg PO BEDTIME PRN 06/19/21 Lax) Constipation #30 tabs Allergies Allergy/AdvReac Type Severity Reaction Status Date / Time No Known Allergies Allergy Verified 05/04/22 22:24 Review of Systems Review of Systems: All other systems are reviewed and are negative Constitutional: Reports as per HPI and Reports no additional constitutional complaints Eyes: Reports as per HPI and Reports no additional eye complaints Reports system reviewed and no additional complaints, except as documented Cardiovascular: Reports as per HPI and Reports no additional cardiovascular complaints Respiratory: Reports as per HPI and Reports no additional respiratory complaints Gastrointestinal: Reports as per HPI and Reports no additional gastrointestinal complaints Genitourinary: Reports no additional female genitourinary complaints Musculoskeletal: Reports no additional musculoskeletal complaints Skin/Breast: Reports system reviewed and no additional complaints, except as docu Psychiatric: Reports no additional psychiatric complaints Endocrine: Reports no additional endocrine complaints Hematologic/Lymphatic: Reports no additional hematologic/lymphatic complaints Allergic/Immunologic: Reports no additional allergic/immunologic complaints Reports system reviewed and no additional complaints, except as documented and Reports Abnormal speech present PMFSH Past Medical History Medical History 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 Atrial fibrillation Atrial flutter Atrial flutter CAD (coronary artery disease) Cardiac arrest Cardiomyopathy CHF (congestive heart failure) Cocaine abuse with intoxication COPD (chronic obstructive pulmonary disease) Coronary bypass graft mechanical complication Drug abuse Fall 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 Heroin use History of hemorrhagic cerebrovascular accident (CVA) without residual deficits Hyperlipemia Leukocytosis MDD (major depressive disorder), recurrent episode, moderate Opioid use disorder Opioid use disorder, moderate, dependence Paroxysmal atrial fibrillation Pneumonia Pneumonitis PVD (peripheral vascular disease) Seizure disorder Seizure-like activity Subclavian arterial stenosis Toxic encephalopathy Surgical History S/P CABG x 2 Social History Social History Household Members: Spouse Housing: House Do you presently have visiting nurse or other home services: No Unable to assess alcohol history related to: Unable to respond Alcohol intake: never Patient Tobacco Use Status: Never used Tobacco Tobacco use type: Cigarette Cigarette Packs Per Day: 2 Cigarettes Per Day: 40.0 Years Smoked: 30 e-Cigarette/Vaping Use: Currently Using Second Hand Smoke Exposure: Yes Substance Use Type: Heroin Advance Directives Date on File: 01/12/21 service: No Current occupational status: retired Physical Exam Vital Signs: Vital Signs: Vital signs have been reviewed as appeared to be correct. Blood pressure normal. Heart rate normal. Respiration rate normal. Temperature normal. Oxygen saturation normal. Appearance: Alert. Oriented X3. No acute distress. Head: Normal external exam. Normocephalic. Atraumatic. No Villagran signs noted. No raccoon eyes noted Eyes: PERRLA. EOMI. Conjunctiva and sclera normal. Eyelids normal. ENT: TM's Normal. Pharynx normal. Uvula midline. Moist mucous membranes. No trismus noted. No drooling noted. No muffled voice noted. Neck: Normal inspection. Neck supple. FROM. No adenopathy. Thyroid Normal. No meningeal signs. No neck mass noted. CVS: Normal heart rate and rhythm. Heart sound normal. No murmurs noted. Pulses normal throughout. Respiratory: No respiratory distress. Painless inspiration. Breath sounds normal. No wheezes/rales/rhonchi noted. Chest nontender. No accessory muscle usage noted or decreased air movement noted. Abdomen: Soft and nontender. Bowel sounds normal in all 4 quadrants. No distention noted. No organomegaly noted. No visible injury noted. Back: No CVA tenderness. Full range of motion noted. Skin: Skin warm and dry. Normal skin color. Normal skin turgor. No rashes/lesions/lacerations noted. Extremities: No lower extremity edema. Extremities exhibit normal range of motion. Extremities nontender. Neuro: Oriented X 3. Cranial nerve exam: II-XII are grossly intact No motor deficit. No sensory deficit. Reflexes normal. Patient Orientation: Person, Place, Time and Situation, okay hygiene and grooming. Fair eye contact, attentive, no tics or tremors. Level of Consciousness: Awake, Appropriate and Alert Patient Behavior: Appropriate, Guarded, Cooperative and Anxious Mood Description: Constricted, Blunted and Apprehensive Affect Description: Constricted, Blunted and Apprehensive Patient Cognition Impaired: No Ability to Follow Directions: Excellent Speech Pattern: Clear, Appropriate and Spontaneous Speech, nonpressured, spontaneous with regular rate and rhythm, normal volume and prosody. No dysarthria. Memory Description: Intact, Immediate Intact and Short Term Intact Hallucinations: None Delusions: Not Present Thought Process: Intact Thought Content: positive for Intact, positive for Logical, denies Suicidal Ideation and denies Homicidal Ideation. Depressive Symptoms: Not present. Judgement and Insight: Limited but adequate. Course Course Course Narrative: 67-year-old male with history of heroin abuse found unresponsive and responded to Narcan, patient had multiple hospital visits for opiate overdose in the past, no SI or HI no other symptoms will discharge the patient with Narcan to take home and after care team evaluation. Medical Decision Making Differential Diagnosis Differential Diagnoses: The differential diagnosis associated with the presentation includes (Heroin overdose, SI, intentional overdose.) Discharge Plan Discharge Clinical Impression: Accidental overdose Patient Disposition: Home, Self-Care Instructions: Adult Overdose (ED) Prescriptions: No Action pentoxifylline 400 mg tablet extended release 1 tab PO BID levetiracetam 500 mg Tablet 500 mg PO BID Qty: 60 0RF Eliquis 5 mg tablet 5 mg PO BID multivitamin Tablet 1 tab PO DAILY B-complex with vitamin C Tablet 1 tab PO DAILY omeprazole 40 mg Capsule,Delayed Release(Dr/Ec) 40 mg PO DAILY@0630 Qty: 30 0RF escitalopram oxalate 10 mg Tablet 10 mg PO DAILY Qty: 30 0RF nicotine 21 mg/24 hr Patch 24 Hour 21 mg transdermal DAILY Qty: 21 0RF vitamin E 400 unit Capsule 400 unit PO DAILY sennosides [Senna Lax] 8.6 mg Tablet 17.2 mg PO BEDTIME PRN (Reason: Constipation) Qty: 30 0RF acetaminophen 325 mg Tablet 650 mg PO Q6H PRN (Reason: Pain, Mild (Pain Scale 1-3)) Qty: 30 0RF melatonin 3 mg Tablet 6 mg PO BEDTIME PRN (Reason: Insomnia) Qty: 30 0RF digoxin 125 mcg (0.125 mg) Tablet 0.125 mg PO DAILY Qty: 30 0RF metoprolol succinate 50 mg tablet extended release 24 hr 50 mg PO DAILY Qty: 30 0RF atorvastatin [Lipitor] 20 mg tablet 20 mg PO DAILY Qty: 30 0RF Interventions: Carroll-Suicide Risk Severity Scale Last Done: 05/04/22 22:38
--- OUTSIDE RECORDS SUMMARY | 2022-05-04 22:59 | XMS_ITS | Continuity of Care Document ---
:1955 Author Organization [facility] Address [address] [place] [id number]- Care Team Providers
--- OUTSIDE RECORDS SUMMARY | 2022-05-04 22:59 | XMS_ITS | Continuity of Care Document ---
:1955 Author Organization [facility] Address [address] [place] [address]- Care Team Providers
--- OUTSIDE RECORDS SUMMARY | 2022-05-04 23:00 | XMS_ITS | Continuity of Care Document ---
:1955 Author Organization [facility]
--- OUTSIDE RECORDS SUMMARY | 2022-05-04 23:01 | XMS_ITS | Continuity of Care Document ---
:1955 Demographics
--- OUTSIDE RECORDS SUMMARY | 2022-05-04 23:01 | XMS_ITS | Continuity of Care Document ---
:1955 Author Organization [facility] Address [address] [place] [address]- Care Team Providers
--- OUTSIDE RECORDS SUMMARY | 2022-05-04 23:02 | XMS_ITS | Continuity of Care Document ---
:1955 Author Organization [facility] Address [address] [place] [address]- Care Team Providers Name Role Phone Meagan DILL, Tony Gaines Primary Care Physician Encounter [facility] Date(s): 05/18/20 - 05/25/20 [facility] [address] [place] [address]-
--- OUTSIDE RECORDS SUMMARY | 2022-05-04 23:04 | XMS_ITS | Continuity of Care Document ---
:1955 Author Organization [facility] Address [address] [place] [address]- Care Team Providers
--- OUTSIDE RECORDS SUMMARY | 2022-05-04 23:05 | XMS_ITS | Continuity of Care Document ---
:1955
--- NOTE | 2022-05-04 23:34 | PC.NURSE ---
Pt. resting in bed, o2 sats at 93% on room air. Pt. admits to taking 1/2 bag of heroin tonight. Pt. denies SI and states that he wasn't trying to hurt himself .
--- NOTE | 2022-05-05 02:35 | PC.NURSE ---
Pt. would like to d/c home, however, doesn't have transport. His doesn't have a car and his cousin that used to help has since passed. Pt. usually takes an ambulance for transport, however, with the long line of pt's needing an ambulance this isn't a good option to be able to get him home tomorrow. Pt. states that he may be able to use crutches to transport to and from a cab or lyft in the morning.
--- NOTE | 2022-05-05 04:15 | PC.NURSE ---
Pt. lying in bed awake. Pt. reports pain at a 10/10, however, he states that we won't be able to help with the pain. Pt. admits to heroine use which he says he uses to control the pain. Helped pt. reposition to his right side with a pillow. Pt. reports that this does feel better.
[2022-05-05 04:46] VITALS: BP 98/55; PULSE 72; RESP 16; O2SAT 94
--- NOTE | 2022-05-05 06:27 | MHC.EDTECH ---
Pt soiled with urine. Pt given pericare. Pt bed linen and clothing changed. Pt personal belongings placed in belongings bag. Pt given water, warm blankets and call bobby placed in reach
[2022-05-05 08:04] VITALS: BP 92/55; PULSE 62; RESP 10; TEMP 37.3
== END 2022-05-05 08:09 | disposition home or self-care (01) ==
PROVIDERS: Emergency Provider Emergency Medicine; PCP Internal Medicine
DX: T40.1X1A Poisoning by heroin, accidental (unintentional), initial encounter (principal); R40.4 Transient alteration of awareness; Y92.019 Unspecified place in single-family (private) house as the place of occurrence of the external cause; F11.20 Opioid dependence, uncomplicated; I50.41 Acute combined systolic (congestive) and diastolic (congestive) heart failure; E78.5 Hyperlipidemia, unspecified; I48.0 Paroxysmal atrial fibrillation; F14.10 Cocaine abuse, uncomplicated; Z95.1 Presence of aortocoronary bypass graft; F17.210 Nicotine dependence, cigarettes, uncomplicated
CPT/HCPCS: 99284

== ENCOUNTER 2022-07-25 15:58 | Inpatient (IN) | payer MEDICARE, SELFPAY ==
[2022-07-25] VITALS (20 sets, daily range): BP systolic 73–133; BP diastolic 37–83; PULSE 54–93; RESP 10–18; TEMP 36.7–36.8; O2SAT 94–100
--- NOTE | ~2022-07-25 | CT_ITS ---
EXAMINATION: CT HEAD WITHOUT CONTRAST (STROKE PROTOCOL) CLINICAL INFORMATION: Stroke protocol. Patient unable to move left arm. COMPARISON: Head CT from 06/10/2021. TECHNIQUE: Contiguous axial imaging was performed from the skull base to vertex without intravenous administration of contrast. This CT examination was performed using dose optimization techniques as appropriate, variously including the following: *Automated exposure control *Adjustment of mA and/or kV according to patient size (this includes techniques or standardized protocols for targeted exams where dose is matched to indication/reason for exam; i.e. extremities or head) *Use of iterative reconstruction technique DLP: 588 mGy-cm FINDINGS: No intracranial hemorrhage, extra-axial fluid collection, focal mass effect or midline shift. Atherosclerotic calcification of vertebral and cavernous carotid arteries. Chronic small vessel ischemic changes within the supratentorial white matter. Again noted are old areas of encephalomalacia with loss of jacobson-white differentiation from infarcts of the left middle frontal gyrus and left occipital-temporal lobes. No evidence of an acute major vascular territory infarction. Chronic parenchymal volume loss with commensurate prominence of ventricles and sulci. No acute findings within the posterior fossa. The cerebellar tonsils are in normal position. The mastoid air cells are well aerated. Mucosal thickening/secretions of bilateral ethmoid air cells and maxillary sinuses. No air-fluid levels within paranasal sinuses. There appears to be an old polyp of the posterior left nasal cavity (also observed on head CT from 01/18/2021). CT/CT head for stroke IMPRESSION: * No acute intracranial pathology compared to 06/10/2021. * Chronic atherosclerotic disease of carotid and vertebral arteries, chronic small vessel ischemic changes of the supratentorial white matter and old infarcts. * Paranasal sinus disease remains improved compared to 01/18/2021. There is an old polyp of the posterior left nasal cavity.. This critical result was discussed with Leana Lou at 4:28 pm on 07/25/2022. It was ascertained that the content and urgency of the report was understood at the time of direct communication.
--- NOTE | ~2022-07-25 | CT_ITS ---
EXAMINATION: CT ANGIOGRAM NECK WITH CONTRAST CT ANGIOGRAM BRAIN WITH CONTRAST CLINICAL INFORMATION: Unable to move left arm. Stroke. COMPARISON: Head CT 07/25/2022. Additional head CT 06/10/2021. TECHNIQUE: Test bolus sequences followed by intravenous administration 100 mL of Omnipaque 350. Helical imaging was performed in the axial plane from the thoracic inlet to the skull vertex. Delayed postcontrast imaging of the head was also performed. The data was processed at the lab animal technologist workstation for generation of MIP sequences. Angled MIPs and volume rendered reformatted images were also generated at an offline 3D workstation. Stenoses are assessed in accordance with NASCET criteria unless otherwise indicated. This CT examination was performed using dose optimization techniques as appropriate, variously including the following: *Automated exposure control *Adjustment of mA and/or kV according to patient size (this includes techniques or standardized protocols for targeted exams where dose is matched to indication/reason for exam; i.e. extremities or head) *Use of iterative reconstruction technique DLP: 1427 mGy-cm FINDINGS: Head CT: There is no intracranial hemorrhage, extra-axial collection, or territorial infarction. There is a large area of chronic infarction within the left parietal and posterior temporal lobe. Small areas of chronic infarction are seen within the left frontal lobe. There is a probable chronic infarct within the right faisal. There is no abnormal enhancement. Background changes of chronic microangiopathy are seen in the white matter. The dural venous sinuses are normally opacified. Paranasal sinus mucosal thickening is noted. Neck CTA: The aortic arch demonstrates significant atheromatous calcifications. There is less than 50% stenosis of the all 3 great vessel artery origins. The bilateral common carotid arteries are patent. Significant atheromatous changes are seen at both carotid bifurcations and along the proximal internal carotid arteries. There is 80% stenosis of the proximal right internal carotid artery. Left internal carotid artery appears occluded from its origin but reconstitutes in the paraclinoid segment. The right cervical ICAs patent with atheromatous changes noted along its course. Significant atheromatous changes seen at the right carotid siphon resulting in severe stenosis of the paraclinoid ICA segment. There is calcific plaque narrowing the origin of the right and left vertebral arteries. Calcific plaque is seen along the right vertebral artery cervical course but without significant stenosis. Left vertebral artery is patent. Head CTA: Left ICA which reconstitutes at the paraclinoid segment is patent within its intracranial segment but decrease in caliber compared with the contralateral side. The ACAs are patent. Both MCAs are patent. There is calcific plaque resulting in severe stenosis at the right vertebral artery dural penetration and along the remainder of its intradural course. The left vertebral artery demonstrates mild calcific plaque along its proximal segment but is patent. The right vertebral artery appears to terminate as a PICA. The distal left vertebral artery appears diminutive in caliber as does the lower basilar artery, similar prior. The mid to upper third of the basilar artery appears patent but is small in caliber but similar to prior. 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 Both supervisor airplane flight attendant are patent. No definite aneurysm is seen. Non-vascular findings: A vascular stent (presumably left axillary artery) is seen within the left axilla may be occluded as there is no contrast opacification. There is emphysema within the upper lungs. No upper lung consolidation is seen. There are mediastinal lymph nodes which appear mildly enlarged and of indeterminate significance. Multilevel degenerative changes are seen within the spine. CT/CT angio head neck stroke IMPRESSION: CT HEAD: No intracranial hemorrhage or large acute infarction. Chronic infarcts in the left frontal lobe, left parietal and posterior temporal lobe, and right faisal. Background changes of chronic microangiopathy. CTA NECK: 1. Left internal carotid artery appears occluded from its origin but reconstitutes at the paraclinoid segment. This finding was also present in 2020. Approximately 80% stenosis of the proximal right internal carotid artery. High-grade stenosis of the right internal carotid artery at the paraclinoid ICA segment related to significant calcific plaque. 2. Stenosis at the origin of the bilateral vertebral arteries. CTA HEAD: 1. No large vessel occlusion. Severe stenosis of the right vertebral artery at the dural penetration and along the remainder of its intradural course. 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 Additional findings: Suspected occlusion of a vascular stent within the left axilla (left axillary artery). Mediastinal lymph nodes are mildly enlarged but of indeterminate significance. Emphysema. This critical result was discussed with Dr. Lou on 07/25/2022 5:21 PM, and it was ascertained that the content and urgency of the report was understood at the time of direct communication.
--- NOTE | ~2022-07-25 | CT_ITS ---
EXAMINATION: CT head/brain wo IV con CLINICAL INFORMATION: Post tPA, change in mental status COMPARISON: CTA head and neck 07/25/2022 TECHNIQUE: Contiguous axial imaging was performed from the skull base to vertex without intravenous contrast. Sagittal and coronal reformatted images were obtained. This CT examination was performed using dose optimization techniques as appropriate, variously including the following: * Automated exposure control * Adjustment of mA and/or kV according to patient size (this includes techniques or standardized protocols for targeted exams where dose is matched to indication/reason for exam; i.e. extremities or head) Use of iterative reconstruction technique DLP: 577.35 mGy-cm mGy-cm FINDINGS: No new acute territorial loss of jacobson-white differentiation or acute intracranial hemorrhage. Redemonstrated apparent hypodensity within the inferior faisal, at least partially if not completely artifactual in etiology. Again seen chronic cortical/subcortical infarcts of the left cerebral hemisphere with dominant left temporal lobe infarct, also seen in the left centrum semiovale and left middle frontal gyrus. Stable mild generalized parenchymal volume loss with ex vacuo dilatation of the left temporal horn. Background of chronic microangiopathy again seen. No mass lesion, significant mass effect, or herniation pattern. The orbits are grossly normal. Redemonstrated scattered mild mucosal disease throughout the ethmoid air cells partially imaged nasal polyp within the posterior right nasal cavity. The mastoid air cells are well-aerated. Osseous structures are intact. CT/CT head/brain wo IV con IMPRESSION: No acute intracranial findings, specifically without intracranial hemorrhage or new territorial loss of jacobson-white matter differentiation. Stable chronic microangiopathy and chronic infarcts throughout the left cerebral hemisphere.
--- NOTE | ~2022-07-25 | US_ITS ---
EXAMINATION: US EXTRACRANIAL CAROTID DUPLEX, BILATERAL CLINICAL INFORMATION: Stroke stroke COMPARISON: CTA from 07/25/2022 TECHNIQUE: Real-time ultrasound and Doppler techniques (integrating B-mode 2-D vascular images, Doppler spectral analysis and color-flow Doppler imaging) were utilized to interrogate the extracranial carotid arteries, the vertebral arteries and proximal subclavian arteries bilaterally. The degree of stenosis is determined by criteria similar to NASCET. FINDINGS: Right Side: 1. There is moderate to severe atherosclerotic plaque seen in the bifurcation/proximal ICA region. 2. The common carotid artery PSV proximally is 74 cm/s and distally 67 cm/s. 3. The proximal internal carotid artery velocities are 285 cm/s systolic and 112 cm/s diastolic. 4. The proximal external carotid artery PSV is 306 cm/s. 5. The vertebral artery shows antegrade flow. 6. The subclavian artery waveforms are normal with mildly elevated velocity measuring 210 cm/s. Left Side: Left side cannot be completely evaluated. The patient was agitated and combative and examination was halted. 1. There is moderate to severe atherosclerotic plaque seen in the bifurcation/proximal ICA region. The waveform in the distal common carotid artery is markedly dampened US/US carotid duplex BI IMPRESSION: 1. RIGHT: Severe, hemodynamically significant stenosis of the proximal right internal carotid artery corresponding to an 80-99% stenosis by velocity criteria. 2. LEFT: The incompletely evaluated due to patient agitation and combativeness. Atherosclerotic plaque is seen with dampened waveform in the distal common carotid artery
--- NOTE | 2022-07-25 16:10 | ECG_ITS ---
Test Reason : Stroke Blood Pressure : / mmHG Vent. Rate : 056 BPM Atrial Rate : 056 BPM P-R Int : 176 ms QRS Dur : 100 ms QT Int : 506 ms P-R-T Axes : 077 084 088 degrees QTc Int : 488 ms Sinus bradycardia Possible Left atrial enlargement Minimal voltage criteria for LVH, may be normal variant ( Axis product ) Septal infarct , age undetermined T wave abnormality, consider anterior ischemia Abnormal ECG When compared with ECG of 17-JUN-2021 16:24, Septal infarct and anterior T wave changes present Referred By: Leana Lou Electronically Signed By:Mukesh Alvares
--- NOTE | 2022-07-25 16:19 | ED_ITS ---
HPI - Neuro Symptoms/Deficit General Chief Complaint: Stroke Stated Complaint: arm weakness Time Seen by Provider: 07/25/22 16:07 Source: patient Mode of arrival: ambulatory Limitations: no limitations History of Present Illness HPI Narrative: Patient comes to the emergency room complaining of being unable to move his left arm. According to EMS, the patient's said that approximately at 13:00, patient told his that something was wrong with his left arm. Patient could not move his left arm. Patient has a left leg amputation. Patient has history of atrial fibrillation. He is supposed to be on Eliquis. Our pharmacist called the patient's pharmacy to find out if patient has been taking Eliquis. Seems that the last time that he was picked up was in April. They said that the patient is unable to afford his medications and stop picking up all of his meds in April of 2022. Related Data Home Medications Medication Instructions Recorded Confirmed apixaban 5 mg tablet (Eliquis) 5 mg PO BID 01/12/21 06/10/21 pentoxifylline 400 mg 1 tab PO BID 01/18/21 06/10/21 tablet,extended release B-complex with vitamin C 1 tab PO DAILY 05/22/21 06/10/21 multivitamin 1 tab PO DAILY 05/22/21 06/10/21 vitamin E 268 mg (400 unit) capsule 400 unit PO DAILY 06/10/21 06/10/21 Previous Rx's Medication Instructions Recorded levetiracetam 500 mg tablet 500 mg PO BID #60 tabs 01/27/21 escitalopram oxalate 10 mg tablet 10 mg PO DAILY #30 tabs 06/05/21 nicotine 21 mg/24 hr daily 21 mg transdermal DAILY #21 ea 06/05/21 transdermal patch omeprazole 40 mg capsule,delayed 40 mg PO DAILY@0630 #30 caps 06/05/21 release acetaminophen 325 mg tablet 650 mg PO Q6H PRN Pain, Mild (Pain 06/19/21 Scale 1-3) #30 tabs atorvastatin 20 mg tablet (Lipitor) 20 mg PO DAILY #30 tabs 06/19/21 digoxin 125 mcg (0.125 mg) tablet 0.125 mg PO DAILY #30 tabs 06/19/21 melatonin 3 mg tablet 6 mg PO BEDTIME PRN Insomnia #30 06/19/21 tabs metoprolol succinate 50 mg 50 mg PO DAILY #30 tabs 06/19/21 tablet,extended release 24 hr sennosides 8.6 mg tablet (Senna 17.2 mg PO BEDTIME PRN 06/19/21 Lax) Constipation #30 tabs Allergies Allergy/AdvReac Type Severity Reaction Status Date / Time No Known Allergies Allergy Verified 05/04/22 22:24 Review of Systems Review of Systems: Constitutional : No Weight loss, No Fever, No Chills, No Night Sweats, No Fatigue, No Malaise ENT/Mouth : No Hearing loss, No Ear Pain, No Nasal Congestion, No Sinus Pain, No Hoarseness, No sore throat, No Rhinorrhea, No Swallowing Difficulty Eyes: No Eye Pain, No Swelling, No Redness, No Foreign Body, No Discharge, No Vision Changes Cardiovascular : No Chest Pain, No SOB, No Dyspnea on Exertion, No Orthopnea, No Edema, No Palpitations Respiratory : No Cough, No Sputum, No Wheezing, No Smoke Exposure, No Dyspnea Gastrointestinal : No Nausea, No Vomiting, No Diarrhea, No Constipation, No abdominal Pain, No Hematochezia, No Melena Genitourinary : no irregular bleeding, No Dysuria, No Urinary Frequency, No Hematuria, No Urinary Incontinence, No Urgency, No Flank Pain, No Urinary Flow Changes, No Hesitancy Musculoskeletal : No joint pain, No Myalgias, No Joint Swelling Skin : No Skin Lesions, No rash Neuro : Weakness of the left arm, patient has good 5/5 grasp with the right and left hand. 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 Atrial fibrillation Atrial flutter Atrial flutter CAD (coronary artery disease) Cardiac arrest Cardiomyopathy CHF (congestive heart failure) Cocaine abuse with intoxication COPD (chronic obstructive pulmonary disease) Coronary bypass graft mechanical complication Drug abuse Fall 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 Heroin use History of hemorrhagic cerebrovascular accident (CVA) without residual deficits Hyperlipemia Leukocytosis MDD (major depressive disorder), recurrent episode, moderate Opioid use disorder Opioid use disorder, moderate, dependence Paroxysmal atrial fibrillation Pneumonia Pneumonitis PVD (peripheral vascular disease) Seizure disorder Seizure-like activity Subclavian arterial stenosis Toxic encephalopathy Surgical History S/P CABG x 2 Social History Social History Household Members: Spouse Housing: House Do you presently have visiting nurse or other home services: No Unable to assess alcohol history related to: Unable to respond Alcohol intake: never Patient Tobacco Use Status: Never used Tobacco Tobacco use type: Cigarette Cigarette Packs Per Day: 2 Cigarettes Per Day: 40.0 Years Smoked: 30 e-Cigarette/Vaping Use: Currently Using Second Hand Smoke Exposure: Yes Substance Use Type: Heroin Advance Directives: Yes Advance Directives on File: Yes Advance Directives Date on File: 01/12/21 service: No Current occupational status: retired Physical Exam Vital Signs: Vital Signs: Last Vital Signs Temp 98.0 F 07/25/22 16:30 Pulse 54 07/25/22 17:51 Resp 10 L 07/25/22 17:51 BP 111/44 L 07/25/22 17:51 Pulse Ox 94 07/25/22 17:51 O2 Del Method 07/25/22 17:51 BMI result Body Mass Index 20.0 Const: Other: Appearance: Alert. Oriented X3. No acute distress. Eyes: Pupils equal, round and reactive to light. ENT: Pharynx normal. Neck: Normal inspection. Neck supple. No lymph nodes noted. No crepitus CVS: Normal heart rate and rhythm. Pulses normal. Normal S1 and S2 Respiratory: No respiratory distress. Breath sounds normal. No Wheezing. No rales Abdomen: Soft and nontender. No rigidity. No distention. Skin: Skin warm and dry. Normal skin color. Normal skin turgor. Extremities: Patient has a left leg amputation. Neuro: Oriented X 3. Patient is unable to lift his left arm up. Patient is unable to squeeze with 5/5 strength Psych: calm, cooperative, normal affect Course Course Course Narrative: -on arrival to the ED, patient was taken to CT scan immediately Medications Administered Discontinued Medications Generic Name Dose Route Start Last Admin Trade Name Freq PRN Reason Stop Dose Admin Alteplase, Recombinant 41.76 mg 07/25/22 16:58 07/25/22 16:59 Alteplase 100 Mg Vial 0.9 mg/kg (41.76 mg) 07/25/22 16:59 41.76 mg IV Administration ONCE ONE Iohexol 100 ml 07/25/22 16:32 07/25/22 16:33 Iohexol 350 Mg/Ml 100 Ml Infus..Btl IV 07/25/22 16:33 70 ml ONCE ONE Administration Medical Decision Making Differential Diagnosis Up CT scan negative, CTA shows chronic ICA occlusion, old infarcts. Seems that patient does not have any known history of CVAs or TIAs -reviewing patient's chart, last H&P , since the patient does not have diabetes -patient has history of hemorrhagic CVA, this was discussed with Dr. Harry. 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 However, patient is unable to lift up his left arm from the bed. -of note, tPA was ordered at 16:58. However, the patient's nurses started mixing the medication before. We knew the patient's weight but due to a system issue, they weight could not be entered. The nurses were following the tPA guideline for mixing dose -pre treat reaching the patient's multiple times to get more information. However, we were unable to get in touch with the patient's until she called at 17:35. The confirmed that the patient lost his left leg secondary to poor circulation, patient is not a diabetic. Also, patient's confirmed that time, it was approximately 13:00 when the patient stated that something was wrong with his arm. The states that since yesterday, the patient mentioned that something was wrong with his arm and was feeling weird. The patient's states that usually he is able to move his arm, even this morning he was doing so. -patient's labs are at baseline, no acute findings. -tPA was given, patient has no change, patient still unable to significantly move his left arm, maximum able to elevate his arm 1-2 inches above the bed, hand process automation engineer bilaterally 5/5 -I discussed the patient with Dr. Díaz, patient admitted to the ICU Admission/Observation Consideration of admission/observation: Escalation of care including admission/observation considered Consult Healthcare Provider Management of the patient was discussed with: Vegetable Packer Lab Data [facility] Lab Attestation statement: I reviewed the patient's lab results. 07/25/22 17:01 07/25/22 17:01 Labs: Lab Results 07/25/22 07/25/22 07/25/22 Range/Units 16:30 16:30 17:01 WBC 17.2 H (4.8-10.8) X10*3/uL RBC 4.04 L (4.60-5.80) X10*6/uL Hgb 10.3 L (14.0-18.0) g/dl Hct 33.1 L (42.0-52.0) % MCV 81.9 (80.0-98.0) fL MCH 25.5 L (27.0-33.0) pg MCHC 31.1 (31.0-36.0) g/dl RDW 19.5 H (11.0-16.0) % Plt Count 305 D (160-400) X10*3/uL MPV 8.7 L (9.4-12.4) fL Immature Gran % (Auto) 0.8 H (0.0-0.4) % Neut % (Auto) 62.2 (45-73) % Lymph % (Auto) 12.8 L (20-40) % Sunflower % (Auto) 12.9 H (2-11) % Eos % (Auto) 10.7 H (0-4) % Baso % (Auto) 0.6 (0-2) % Lymph # (Auto) 2.2 (1.2-4.9) X10*3/uL Sunflower # (Auto) 2.2 H (0.1-1.2) X10*3/uL Eos # (Auto) 1.8 H (0.0-0.4) X10*3/uL Baso # (Auto) 0.1 (0.0-0.2) X10*3/uL Abs Immat Gran (auto) 0.14 H (0.00-0.03) X10*3/uL Absolute Neuts (auto) 10.7 H (2.0-8.3) x10*3/uL Absolute Nucleated RBC 0.000 (0.0-0.012) X10*3/uL Nucleated RBC % (auto) 0.0 (0.0-0.2) /100WBC Smear Tech's Comments VERIFIED Whole Blood PT 16.3 H (11.1-13.5) sec Whole Blood INR 1.4 H (0.9-1.1) Sodium (135-145) mmol/L Potassium (3.3-5.1) mmol/L Chloride (96-108) mmol/L Carbon Dioxide (22-29) mmol/L Anion Gap (12-20) BUN (9-16) mg/dL Creatinine (0.5-1.4) mg/dL Estim Creat Clear Calc Estimated GFR POC Glucose 81 (60-115) mg/dL Random Glucose (60-115) mg/dL Lactic Acid (0.5-2.0) mmol/L Calcium (8.4-10.2) mg/dL Magnesium (1.6-2.6) mg/dL Total Bilirubin (0.0-1.0) mg/dL Direct Bilirubin (0.0-0.5) mg/dL AST (5-37) U/L ALT (0-40) U/L Alkaline Phosphatase (39-117) U/L Troponin I High Sens (<3.5-35.0) ng/L Total Protein (6.5-8.0) g/dL Albumin (3.5-5.0) g/dL Ethyl Alcohol mg/dL COVID-19 (TIFFANIE) (Negative) COVID-19 Clin Com 07/25/22 07/25/22 07/25/22 Range/Units 17:01 17:01 17:01 WBC (4.8-10.8) X10*3/uL RBC (4.60-5.80) X10*6/uL Hgb (14.0-18.0) g/dl Hct (42.0-52.0) % MCV (80.0-98.0) fL MCH (27.0-33.0) pg MCHC (31.0-36.0) g/dl RDW (11.0-16.0) % Plt Count (160-400) X10*3/uL MPV (9.4-12.4) fL Immature Gran % (Auto) (0.0-0.4) % Neut % (Auto) (45-73) % Lymph % (Auto) (20-40) % Sunflower % (Auto) (2-11) % Eos % (Auto) (0-4) % Baso % (Auto) (0-2) % Lymph # (Auto) (1.2-4.9) X10*3/uL Sunflower # (Auto) (0.1-1.2) X10*3/uL Eos # (Auto) (0.0-0.4) X10*3/uL Baso # (Auto) (0.0-0.2) X10*3/uL Abs Immat Gran (auto) (0.00-0.03) X10*3/uL Absolute Neuts (auto) (2.0-8.3) x10*3/uL Absolute Nucleated RBC (0.0-0.012) X10*3/uL Nucleated RBC % (auto) (0.0-0.2) /100WBC Smear Tech's Comments Whole Blood PT (11.1-13.5) sec Whole Blood INR (0.9-1.1) Sodium 134 L (135-145) mmol/L Potassium 4.5 (3.3-5.1) mmol/L Chloride 99 (96-108) mmol/L Carbon Dioxide 28 (22-29) mmol/L Anion Gap 12 (12-20) BUN 13 (9-16) mg/dL Creatinine 0.82 (0.5-1.4) mg/dL Estim Creat Clear Calc 56.5 Estimated GFR > 60 POC Glucose (60-115) mg/dL Random Glucose 69 (60-115) mg/dL Lactic Acid (0.5-2.0) mmol/L Calcium 8.4 D (8.4-10.2) mg/dL Magnesium 2.0 (1.6-2.6) mg/dL Total Bilirubin 0.2 (0.0-1.0) mg/dL Direct Bilirubin < 0.2 (0.0-0.5) mg/dL AST 31 (5-37) U/L ALT 25 (0-40) U/L Alkaline Phosphatase 87 (39-117) U/L Troponin I High Sens 7.0 (<3.5-35.0) ng/L Total Protein 6.3 L (6.5-8.0) g/dL Albumin 3.0 L (3.5-5.0) g/dL Ethyl Alcohol < 10 mg/dL COVID-19 (TIFFANIE) (Negative) COVID-19 Clin Com 07/25/22 07/25/22 Range/Units 17:02 17:03 WBC (4.8-10.8) X10*3/uL RBC (4.60-5.80) X10*6/uL Hgb (14.0-18.0) g/dl Hct (42.0-52.0) % MCV (80.0-98.0) fL MCH (27.0-33.0) pg MCHC (31.0-36.0) g/dl RDW (11.0-16.0) % Plt Count (160-400) X10*3/uL MPV (9.4-12.4) fL Immature Gran % (Auto) (0.0-0.4) % Neut % (Auto) (45-73) % Lymph % (Auto) (20-40) % Sunflower % (Auto) (2-11) % Eos % (Auto) (0-4) % Baso % (Auto) (0-2) % Lymph # (Auto) (1.2-4.9) X10*3/uL Sunflower # (Auto) (0.1-1.2) X10*3/uL Eos # (Auto) (0.0-0.4) X10*3/uL Baso # (Auto) (0.0-0.2) X10*3/uL Abs Immat Gran (auto) (0.00-0.03) X10*3/uL Absolute Neuts (auto) (2.0-8.3) x10*3/uL Absolute Nucleated RBC (0.0-0.012) X10*3/uL Nucleated RBC % (auto) (0.0-0.2) /100WBC Smear Tech's Comments Whole Blood PT (11.1-13.5) sec Whole Blood INR (0.9-1.1) Sodium (135-145) mmol/L Potassium (3.3-5.1) mmol/L Chloride (96-108) mmol/L Carbon Dioxide (22-29) mmol/L Anion Gap (12-20) BUN (9-16) mg/dL Creatinine (0.5-1.4) mg/dL Estim Creat Clear Calc Estimated GFR POC Glucose (60-115) mg/dL Random Glucose (60-115) mg/dL Lactic Acid 1.4 (0.5-2.0) mmol/L Calcium (8.4-10.2) mg/dL Magnesium (1.6-2.6) mg/dL Total Bilirubin (0.0-1.0) mg/dL Direct Bilirubin (0.0-0.5) mg/dL AST (5-37) U/L ALT (0-40) U/L Alkaline Phosphatase (39-117) U/L Troponin I High Sens (<3.5-35.0) ng/L Total Protein (6.5-8.0) g/dL Albumin (3.5-5.0) g/dL Ethyl Alcohol mg/dL COVID-19 (TIFFANIE) Negative (Negative) COVID-19 Clin Com See Note Independent Interpretation I performed an independent interpretation of an: CT Scan (Head CT my interpretation: No acute intracranial bleed) Radiology Impression Discussion of test interpretation with radiology: I have reviewed the radiologist's reading. Radiologist Impression: Head CT: There is no intracranial hemorrhage, extra-axial collection, or territorial infarction. There is a large area of chronic infarction within the left parietal and posterior temporal lobe. Small areas of chronic infarction are seen within the left frontal lobe. There is a probable chronic infarct within the right faisal. There is no abnormal enhancement. Background changes of chronic microangiopathy are seen in the white matter. The dural venous sinuses are normally opacified. Paranasal sinus mucosal thickening is noted. Neck CTA: The aortic arch demonstrates significant atheromatous calcifications. There is less than 50% stenosis of the all 3 great vessel artery origins. The bilateral common carotid arteries are patent. Significant atheromatous changes are seen at both carotid bifurcations and along the proximal internal carotid arteries. There is 80% stenosis of the proximal right internal carotid artery. Left internal carotid artery appears occluded from its origin but reconstitutes in the paraclinoid segment. The right cervical ICAs patent with atheromatous changes noted along its course. Significant atheromatous changes seen at the right carotid siphon resulting in severe stenosis of the paraclinoid ICA segment. There is calcific plaque narrowing the origin of the right and left vertebral arteries. Calcific plaque is seen along the right vertebral artery cervical course but without significant stenosis. Left vertebral artery is patent. Head CTA: Left ICA which reconstitutes at the paraclinoid segment is patent within its intracranial segment but decrease in caliber compared with the contralateral side. The ACAs are patent. Both MCAs are patent. There is calcific plaque resulting in severe stenosis at the right vertebral artery dural penetration and along the remainder of its intradural course. The left vertebral artery demonstrates mild calcific plaque along its proximal segment but is patent. The right vertebral artery appears to terminate as a PICA. The distal left vertebral artery appears diminutive in caliber as does the lower basilar artery, similar prior. The mid to upper third of the basilar artery appears patent but is small in caliber but similar to prior. 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 Both industrial gas production operator are patent. No definite aneurysm is seen. Non-vascular findings: A vascular stent (presumably left axillary artery) is seen within the left axilla may be occluded as there is no contrast opacification. There is emphysema within the upper lungs. No upper lung consolidation is seen. There are mediastinal lymph nodes which appear mildly enlarged and of indeterminate significance. Multilevel degenerative changes are seen within the spine. CT/CT angio head? neck stroke IMPRESSION: CT HEAD: No intracranial hemorrhage or large acute infarction. Chronic infarcts in the left frontal lobe, left parietal and posterior temporal lobe, and right faisal. Background changes of chronic microangiopathy. ? CTA NECK: 1.? Left internal carotid artery appears occluded from its origin but reconstitutes at the paraclinoid segment. This finding was also present in 2020. Approximately 80% stenosis of the proximal right internal carotid artery. High-grade stenosis of the right internal carotid artery at the paraclinoid ICA segment related to significant calcific plaque. 2.? Stenosis at the origin of the bilateral vertebral arteries. ? CTA HEAD: 1.? No large vessel occlusion. Severe stenosis of the right vertebral artery at the dural penetration and along the remainder of its intradural course. Left vertebral artery and basilar artery are small in caliber but patent and similar to prior likely representing decreased filling due to the vertebral artery stenosis in the setting of hypoplasia related to industrial gas production operator. ? Additional findings: Suspected occlusion of a vascular stent within the left axilla (left axillary artery). Mediastinal lymph nodes are mildly enlarged but of indeterminate significance. Emphysema. NIH Stroke Scale Level of Consciousness: Alert Level of Consciousness Questions: Answers both questions correctly Level of Consciousness Commands: Performs both tasks correctly Best Gaze: Normal Visual: No visual loss Facial Palsy: Normal Motor Arm (Right): No drift Motor Arm (Left): No effort against gravity Motor Leg (Right): No drift Motor Leg (Left): Amputation or joint fusion Limb Ataxia: Absent Sensory: Normal Best Language: No aphasia Dysarthia: Normal Extinction and Inattention: No abnormality Score: 3 Critical Care Time Critical Care Time Critical Care Time: Yes Total Critical Care Time: 60 Attestation: I have personally provided critical care time. Time includes review of lab data, radiology results, discussion with consultants, and monitoring for potential decompensation. Intervention performed as documented. Discharge Plan Discharge Clinical Impression: Acute CVA (cerebrovascular accident) Patient Disposition: Admitted As Inpatient Prescriptions: No Action pentoxifylline 400 mg tablet extended release 1 tab PO BID levetiracetam 500 mg Tablet 500 mg PO BID Qty: 60 0RF Eliquis 5 mg tablet 5 mg PO BID multivitamin Tablet 1 tab PO DAILY B-complex with vitamin C Tablet 1 tab PO DAILY omeprazole 40 mg Capsule,Delayed Release(Dr/Ec) 40 mg PO DAILY@0630 Qty: 30 0RF escitalopram oxalate 10 mg Tablet 10 mg PO DAILY Qty: 30 0RF nicotine 21 mg/24 hr Patch 24 Hour 21 mg transdermal DAILY Qty: 21 0RF vitamin E 400 unit Capsule 400 unit PO DAILY sennosides [Senna Lax] 8.6 mg Tablet 17.2 mg PO BEDTIME PRN (Reason: Constipation) Qty: 30 0RF acetaminophen 325 mg Tablet 650 mg PO Q6H PRN (Reason: Pain, Mild (Pain Scale 1-3)) Qty: 30 0RF melatonin 3 mg Tablet 6 mg PO BEDTIME PRN (Reason: Insomnia) Qty: 30 0RF digoxin 125 mcg (0.125 mg) Tablet 0.125 mg PO DAILY Qty: 30 0RF metoprolol succinate 50 mg tablet extended release 24 hr 50 mg PO DAILY Qty: 30 0RF atorvastatin [Lipitor] 20 mg tablet 20 mg PO DAILY Qty: 30 0RF
[2022-07-25] MEDS: iohexoL 350 MG/ML 100 ML INFUS..BTL IV (16:33)
[2022-07-25 16:34] LABS: Glucose, Whole Blood 81 mg/dL (60-115)
[2022-07-25 17:08] LABS: Prothrombin Time Whole Bld POC 16.3 sec (11.1-13.5); ~PT, ~INR - Anti Coag Clinic 1.4 (0.9-1.1)
[2022-07-25 17:21] LABS: Basophils Absolute Auto 0.1 X10*3/uL (0.0-0.2); Basophils Percent Auto 0.6 % (0-2); Eosinophils Absolute Auto 1.8 X10*3/uL (0.0-0.4); Eosinophils Percent Auto 10.7 % (0-4); Hematocrit 33.1 % (42.0-52.0); Hemoglobin 10.3 g/dl (14.0-18.0); Imm Gran Abs Auto 0.14 X10*3/uL (0.00-0.03); Imm Gran Pct Auto 0.8 % (0.0-0.4); Lymphocytes Absolute Auto 2.2 X10*3/uL (1.2-4.9); Lymphocytes Percent Auto 12.8 % (20-40); MANUAL DIFF FLAG SCAN; Mean Corpuscular HGB Conc 31.1 g/dl (31.0-36.0); Mean Corpuscular Hemoglobin 25.5 pg (27.0-33.0); Mean Corpuscular Volume 81.9 fL (80.0-98.0); Mean Platelet Volume 8.7 fL (9.4-12.4); Monocytes Absolute Auto 2.2 X10*3/uL (0.1-1.2); Monocytes Percent Auto 12.9 % (2-11); Neutrophils Absolute Auto 10.7 x10*3/uL (2.0-8.3); Neutrophils Percent Auto 62.2 % (45-73); Platelet Count 305 X10*3/uL (160-400); Red Blood Count 4.04 X10*6/uL (4.60-5.80); Red Cell Distribution Width 19.5 % (11.0-16.0); SCAN SMEAR FLAG 1; White Blood Count 17.2 X10*3/uL (4.8-10.8)
[2022-07-25 17:25] LABS: Lactic Acid 1.4 mmol/L (0.5-2.0)
[2022-07-25 17:27] LABS: COVID-19 Test Negative (Negative); IDNOW Serial# 9DB6401D
[2022-07-25 17:35] LABS: Alanine Aminotransferase 25 U/L (0-40); Alkaline Phosphatase 87 U/L (39-117); Anion Gap 12 (12-20); Aspartate Amino Transferase 31 U/L (5-37); Bilirubin Direct < 0.2 mg/dL (0.0-0.5); Bilirubin Total 0.2 mg/dL (0.0-1.0); Blood Urea Nitrogen 13 mg/dL (9-16); Calcium 8.4 mg/dL (8.4-10.2); Carbon Dioxide 28 mmol/L (22-29); Chloride 99 mmol/L (96-108); Creatinine Clr Calc Pharmacy 56.5; Estimated Glomerular Filt Rate > 60; Glucose Random 69 mg/dL (60-115); Potassium 4.5 mmol/L (3.3-5.1); Sodium 134 mmol/L (135-145); Total Protein 6.3 g/dL (6.5-8.0)
[2022-07-25 17:37] LABS: Ethanol < 10 mg/dL
[2022-07-25 18:03] LABS: SLIDE REVIEW VERIFIED
--- NOTE | 2022-07-25 18:05 | PC.NURSE ---
PT BROUGHT TO ED VIA EMS FOR EVALUATION OF STROKE-LIKE SYMPTOMS. PT'S CALLED AMBULANCE BECAUSE PT TOLD HER THAT SOMETHING WAS WRONG WITH HIM AND HE WAS NOT ABLE TO MOVE HIS L ARM. PER EMS THIS STARTED AROUND 1300. HX OF AFIB AND HEMORRHAGIC STROKE IN THE PAST. PT ON ELIQUIS. CT SCAN DONE. 20g IV INSERTED IN LAC, 20g IN RAC. TPA GIVEN PER PROTOCOL AND DOCUMENTED. VS DOCUMENTED, PT DENIES PAIN. PT LBKA. MOVES R ARM WITHOUT DIFFICULTY, UNABLE TO MOVE L ARM.
--- NOTE | 2022-07-25 19:52 | PM.CCHP ---
History of Present Illness Date of Service: 07/25/22 Attending physician on admission: Jake Díaz Chief Complaint: Left arm weakness The patient is a 67-year-old male with a past medical history of atrial fibrillation, ? 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 ? According to the patient's patient stated that at approximately 1300 he was unable to move his left arm.??? Patient has a history of atrial fibrillation, was supposed to be on Eliquis? above patient states that he has not taking his medications since April of 2022 due to not being able to afford medication.? ?In the emergency room,? he was noted to not be able to move his left arm, but strength noted to be 5/5.? He has a history of left BKA, ? unable to do full neuro exam left extremity.? Head CT was negative, CTA shows chronic ICA occlusion, old infarcts.? Vital signs stable.? ?Laboratory data significant for? WBC 17.2, hemoglobin 13.3, hematocrit 33.3, serum sodium 134, albumin 3 ? Patient received tPA at 1659,? with no changes in neurological exam post tPA. Review of Systems Constitutional: Constitutional: Denies chills, Denies fatigue, Denies fever(s) and Denies headache(s) Eyes: Eyes: Denies blurry vision and Denies diplopia ENT: Denies dizziness and Denies headache(s) Cardiovascular: Cardiovascular: Denies chest pain, Denies rapid heart rate, Denies irregular heart rhythm and Denies dyspnea Respiratory: Respiratory: Denies cough and Denies dyspnea Gastrointestinal: Gastrointestinal: Denies diarrhea and Denies nausea Musculoskeletal: Musculoskeletal: Reports back pain (Chronic) Neurologic: Reports as per HPI, Denies dizziness and Denies headache(s) Endocrine: Endocrine: Denies fatigue [facility] Past Medical History Medical History 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 Atrial fibrillation Atrial flutter Atrial flutter CAD (coronary artery disease) Cardiac arrest Cardiomyopathy CHF (congestive heart failure) Cocaine abuse with intoxication COPD (chronic obstructive pulmonary disease) Coronary bypass graft mechanical complication Drug abuse Fall 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 Heroin use History of hemorrhagic cerebrovascular accident (CVA) without residual deficits Hyperlipemia Leukocytosis MDD (major depressive disorder), recurrent episode, moderate Opioid use disorder Opioid use disorder, moderate, dependence Paroxysmal atrial fibrillation Pneumonia Pneumonitis PVD (peripheral vascular disease) Seizure disorder Seizure-like activity Subclavian arterial stenosis Toxic encephalopathy Surgical History Surgical History S/P CABG x 2 Social History Social History Household Members: Spouse Housing: House Do you presently have visiting nurse or other home services: No Unable to assess alcohol history related to: Unable to respond Alcohol intake: never Patient Tobacco Use Status: Never used Tobacco Tobacco use type: Cigarette Cigarette Packs Per Day: 2 Cigarettes Per Day: 40.0 Years Smoked: 30 e-Cigarette/Vaping Use: Currently Using Second Hand Smoke Exposure: Yes Substance Use Type: Heroin Advance Directives: Yes Advance Directives on File: Yes Advance Directives Date on File: 01/12/21 service: No Current occupational status: retired [employer] Allergies Allergy/AdvReac Type Severity Reaction Status Date / Time No Known Allergies Allergy Verified 05/04/22 22:24 Active Medications: Current Medications Pharmacy Consult (Consult Rx Perform Med Rec) 1 each MISCELLANE ONCE PRN PRN Reason: Consult order Sodium Chloride (0.9 % Sodium Chloride Flush 3 Ml Syringe) 3 ml IVFLUSH [facility] Home Medications Medication Instructions Recorded Confirmed Last Taken Type apixaban 5 mg tablet (Eliquis) 5 mg PO BID 01/12/21 06/10/21 05/21/21 History pentoxifylline 400 mg 1 tab PO BID 01/18/21 06/10/21 05/21/21 History tablet,extended release B-complex with vitamin C 1 tab PO DAILY 05/22/21 06/10/21 05/21/21 History multivitamin 1 tab PO DAILY 05/22/21 06/10/21 05/21/21 History vitamin E 268 mg (400 unit) capsule 400 unit PO DAILY 06/10/21 06/10/21 Unknown History Physical Exam Vital Signs: Vital Signs: Last Vital Signs Temp 98.0 F 07/25/22 16:30 Pulse 54 07/25/22 17:51 Resp 10 L 07/25/22 17:51 BP 111/44 L 07/25/22 17:51 Pulse Ox 94 07/25/22 17:51 O2 Del Method 07/25/22 17:51 BMI result Body Mass Index 20.0 Constitutional: No acute distress, alert and oriented x 3 HEENT: No hearing loss, sneezing, congestion, runny nose or sore throat. No vision change or blurred vision Respiratory:? Lung CTA bilaterally, no wheezes, rhonchi, or rales Cardiac: RRR, +S1/S2, no murmurs/rubs, pulses palpable and equal Gastrointestinal: +BS, non-tender to palpation, non-distended Neurologic:? Neurological exam,? The patient is alert, attentive, and oriented. Speech is clear and fluent with good repetition, comprehension, and naming. moving right extremities without limitations. unable to lift left arm, but strength 5/5 bilaterally. sensation decraese on left extremity. Left lower extremity BKA, able to move extremity. Musculoskeletal: L BKA. Skin: No rash/lesion Psych: Mood appropriate to situation Results Labs 07/25/22 17:01 07/25/22 17:01 Labs: Laboratory Results - last 24 hr 07/25/22 07/25/22 07/25/22 16:30 16:30 17:01 MCV 81.9 MCH 25.5 L MCHC 31.1 RDW 19.5 H Plt Count 305 D MPV 8.7 L Immature Gran % (Auto) 0.8 H Neut % (Auto) 62.2 Lymph % (Auto) 12.8 L Freestone % (Auto) 12.9 H Eos % (Auto) 10.7 H Baso % (Auto) 0.6 Lymph # (Auto) 2.2 Freestone # (Auto) 2.2 H Eos # (Auto) 1.8 H Baso # (Auto) 0.1 Abs Immat Gran (auto) 0.14 H Absolute Neuts (auto) 10.7 H Absolute Nucleated RBC 0.000 Nucleated RBC % (auto) 0.0 Smear Tech's Comments VERIFIED Whole Blood PT 16.3 H Whole Blood INR 1.4 H Anion Gap Estim Creat Clear Calc Estimated GFR POC Glucose 81 Random Glucose Lactic Acid Calcium Magnesium Total Bilirubin Direct Bilirubin AST ALT Alkaline Phosphatase Troponin I High Sens Total Protein Albumin Ethyl Alcohol COVID-19 (TIFFANIE) COVID-19 Clin Com 07/25/22 07/25/22 07/25/22 17:01 17:01 17:01 MCV MCH MCHC RDW Plt Count MPV Immature Gran % (Auto) Neut % (Auto) Lymph % (Auto) Freestone % (Auto) Eos % (Auto) Baso % (Auto) Lymph # (Auto) Freestone # (Auto) Eos # (Auto) Baso # (Auto) Abs Immat Gran (auto) Absolute Neuts (auto) Absolute Nucleated RBC Nucleated RBC % (auto) Smear Tech's Comments Whole Blood PT Whole Blood INR Anion Gap 12 Estim Creat Clear Calc 56.5 Estimated GFR > 60 POC Glucose Random Glucose 69 Lactic Acid Calcium 8.4 D Magnesium 2.0 Total Bilirubin 0.2 Direct Bilirubin < 0.2 AST 31 ALT 25 Alkaline Phosphatase 87 Troponin I High Sens 7.0 Total Protein 6.3 L Albumin 3.0 L Ethyl Alcohol < 10 COVID-19 (TIFFANIE) COVID-19 Clin Com 07/25/22 07/25/22 17:02 17:03 MCV MCH MCHC RDW Plt Count MPV Immature Gran % (Auto) Neut % (Auto) Lymph % (Auto) Freestone % (Auto) Eos % (Auto) Baso % (Auto) Lymph # (Auto) Freestone # (Auto) Eos # (Auto) Baso # (Auto) Abs Immat Gran (auto) Absolute Neuts (auto) Absolute Nucleated RBC Nucleated RBC % (auto) Smear Tech's Comments Whole Blood PT Whole Blood INR Anion Gap Estim Creat Clear Calc Estimated GFR POC Glucose Random Glucose Lactic Acid 1.4 Calcium Magnesium Total Bilirubin Direct Bilirubin AST ALT Alkaline Phosphatase Troponin I High Sens Total Protein Albumin Ethyl Alcohol COVID-19 (TIFFANIE) Negative COVID-19 Clin Com See Note Imaging Radiologist's Impressions: Impressions Head CT 07/25/22 16:13 IMPRESSION: * No acute intracranial pathology compared to 06/10/2021. * Chronic atherosclerotic disease of carotid and vertebral arteries, chronic small vessel ischemic changes of the supratentorial white matter and old infarcts. * Paranasal sinus disease remains improved compared to 01/18/2021. There is an old polyp of the posterior left nasal cavity.. This critical result was discussed with Leana Lou at 4:28 pm on 07/25/2022. It was ascertained that the content and urgency of the report was understood at the time of direct communication. Head/Neck CTA 07/25/22 16:31 IMPRESSION: CT HEAD: No intracranial hemorrhage or large acute infarction. Chronic infarcts in the left frontal lobe, left parietal and posterior temporal lobe, and right faisal. Background changes of chronic microangiopathy. CTA NECK: 1. Left internal carotid artery appears occluded from its origin but reconstitutes at the paraclinoid segment. This finding was also present in 2019. Approximately 80% stenosis of the proximal right internal carotid artery. High-grade stenosis of the right internal carotid artery at the paraclinoid ICA segment related to significant calcific plaque. 2. Stenosis at the origin of the bilateral vertebral arteries. CTA HEAD: 1. No large vessel occlusion. Severe stenosis of the right vertebral artery at the dural penetration and along the remainder of its intradural course. 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 Additional findings: Suspected occlusion of a vascular stent within the left axilla (left axillary artery). Mediastinal lymph nodes are mildly enlarged but of indeterminate significance. Emphysema. This critical result was discussed with Dr. Lou on 07/25/2022 5:21 PM, and it was ascertained that the content and urgency of the report was understood at the time of direct communication. Assessment and Plan (1) Acute CVA (cerebrovascular accident): Status: Acute (2) Failure to thrive in adult: Status: Acute (3) Leukocytosis: Status: Acute Plan Plan? Neuro: ? patient has a history of hemorrhagic stroke with no? residual,? new onset of left arm weakness, Head CT was negative, CTA shows chronic ICA occlusion, old infarcts.? Is now status post tPA.? No changes in neurological status post tPA.? Will follow post tPA protocol Cardiac:? no acute issues?? Pulmonary: No acute issues. Renal:? ? no acute issues Endo:? No acute issues.? GI: No acute issues. heme/onc:? ?Chronic anemia-? hemoglobin is stable.? ID: leukocytosis-? no evidence of acute infection/sepsis,? lactic is negative.? Will continue to follow Misc:? no acute issues DVT: No DVT anticoagulation for 24hr post tPA Diet:? NPO until nursing/ speech eval Case discussed with? attending Dr. Díaz? Time Spent With Patient Time: Total time managing care of this patient today ____ minutes. Critical Care Time Critical Care Time (minutes): 30
[2022-07-25] MEDS: Albumin Human 25 % 100 ML IV (20:30)
[2022-07-25] MEDS: Albumin Human 25 % 100 ML 133.33 ML IV ×2 (21:37→23:01)
[2022-07-25 21:51] LABS: Glucose, Whole Blood 112 mg/dL (60-115)
[2022-07-25 22:14] LABS: Lactic Acid 1.1 mmol/L (0.5-2.0)
[2022-07-26] VITALS (23 sets, daily range): BP systolic 83–153; BP diastolic 39–124; PULSE 61–71; RESP 11–18; TEMP 36.9; O2SAT 95–99
[2022-07-26] MEDS: Norepinephrine Bitartrate/D5W 8 MG/250 ML PLAST..BAG 4.35 MG IV
[2022-07-26] MEDS: 0.9 % Sodium Chloride Flush 3 ML SYRINGE IVFLUSH ×2 (00:11→08:46)
[2022-07-26 05:52] LABS: Basophils Absolute Auto 0.1 X10*3/uL (0.0-0.2); Basophils Percent Auto 0.6 % (0-2); Eosinophils Percent Auto 14.6 % (0-4); Hematocrit 28.8 % (42.0-52.0); Hemoglobin 9.3 g/dl (14.0-18.0); Imm Gran Abs Auto 0.07 X10*3/uL (0.00-0.03); Imm Gran Pct Auto 0.5 % (0.0-0.4); Lymphocytes Percent Auto 14.6 % (20-40); MANUAL DIFF FLAG SCAN; Mean Corpuscular HGB Conc 32.3 g/dl (31.0-36.0); Mean Corpuscular Hemoglobin 26.3 pg (27.0-33.0); Mean Corpuscular Volume 81.6 fL (80.0-98.0); Monocytes Absolute Auto 1.8 X10*3/uL (0.1-1.2); Neutrophils Absolute Auto 7.9 x10*3/uL (2.0-8.3); Neutrophils Percent Auto 56.7 % (45-73); Platelet Count 253 X10*3/uL (160-400); Red Blood Count 3.53 X10*6/uL (4.60-5.80); Red Cell Distribution Width 19.2 % (11.0-16.0); SCAN SMEAR FLAG 1; White Blood Count 13.9 X10*3/uL (4.8-10.8)
[2022-07-26 06:02] LABS: Anion Gap 13 (12-20); Blood Urea Nitrogen 13 mg/dL (9-16); Calcium 8.6 mg/dL (8.4-10.2); Carbon Dioxide 24 mmol/L (22-29); Chloride 104 mmol/L (96-108); Cholesterol 101 mg/dL; Creatinine Clr Calc Pharmacy 59.4; Estimated Glomerular Filt Rate > 60; Glucose Random 109 mg/dL (60-115); HDL Cholesterol 22 mg/dL; LDL Cholesterol Calculated 62 mg/dl; Sodium 137 mmol/L (135-145); Triglycerides 88 mg/dL
[2022-07-26 06:26] LABS: SLIDE REVIEW VERIFIED
[2022-07-26 07:19] LABS: Glucose, Whole Blood 113 mg/dL (60-115)
[2022-07-26] MEDS: Albumin Human 25 % 100 ML IV ×2 (08:46→09:41)
--- NOTE | 2022-07-26 08:53 | MHC.CM.PN ---
Addendum entered by Dinorah Cotter 07/26/22 10:41: Elder at Risk filed Addendum entered by Dinorah Cotter 07/26/22 10:31: VNA referral placed to inquire if pt has active VNA services. Original Note: This fiction and nonfiction writer prose attempted to meet with patient, agitated, and yelling @ -wanting to go home. Attempted to place call to HCP, Dinorah Dickson. home phone disconnected. Call placed to brother Oskar- he reports concerns about patient and his related to substance use. Oskar provided cell phone number for Dinorah Kirkpatrickarcadioelizabeth- [phone] (no answer and unable to leave VM d/t full mailbox). In discussion with RN- patient lives @ home with who is the primary day care assistant. Has not picker feeder medications from pharmacy since late 2021. Has hospital bed at home. Reported that patient has VNA in the home but organization unknown. While this fiction and nonfiction writer prose was @ bedside PT finished eval- CM will await d/c recs from PT for d/c planning. Will continue to attempt to contact HCP.
--- NOTE | 2022-07-26 09:49 | PHA.MEDREC ---
Pharmacy Consult ? Medication Reconciliation Pharmacy has completed the medication reconciliation. Patient is altered and doesn't know what he takes, couldn't reach the after 6 attempts, and pharmacy states that he has not been taking medications since april due to costs. Per Dr. March entered no home meds for this patient.
--- NOTE | 2022-07-26 10:56 | PC.NURSE ---
Pt agitated and yelling to leave home, unreceptive of explanation, refusing MRI, MD aware. Left Arm weakness, unable to lift, unchanged otherwise neuro intact. Pt weaned off Levophed gtt and tolerated well. Pt bathed; repositioned every 2 hrs and as needed. Pt's dressings to the chronic pressure injuries changed. Pt worked with MT and OT, recommending rehab but pt refusing. Pt otherwise voiding in urinal, had a BM this shift. Pt in no acute distress. VSS. Pt downgraded to [employer]; pt made aware. Report given to receiving RN, pt left the unit at approximately 1045.
--- NOTE | 2022-07-26 11:11 | P.PNCC_ITS ---
Subjective Subjective Date of Service: 07/26/22 Interval History: 67-year-old gentleman with underlying history of polysubstance abuse including heparin cocaine, AFib, prior hemorrhagic CVA, hypertension, CAD status post CABG, CAD, seizure disorder, smoking, COPD, left BKA, systolic heart failure with EF of 25% admitted on 07/25/2022 with left-sided weakness. Patient has been evaluated by neurology and receive tPA with resolution of his symptoms. He was monitored in the intensive care unit. He has a refused most of his care. Per his that is his baseline. Critical Care Time (minutes): 0 Physical Exam Vital Signs: Vital Signs: Last Vital Signs Temp 98.5 F 07/26/22 08:00 Pulse 63 07/26/22 09:27 Resp 15 07/26/22 09:00 BP 153/54 H 07/26/22 09:27 Pulse Ox 99 07/26/22 09:27 O2 Del Method 07/26/22 09:00 BMI result Body Mass Index 20.0 Const: General: no acute distress, alert, awake and other ( Contentious, poorly compliant with exam) Eyes: Sclerae: sclerae normal EOM: EOMs intact bilaterally Neck: Neck: Yes no lymphadenopathy, Yes trachea midline and Yes supple Resp: Effort & Inspection: normal respiratory effort and no respiratory distress Auscultation: clear to auscultation bilaterally Cardio: Rate: regular rate Rhythm: regular rhythm Heart sounds: no gal lops, no murmurs and no rubs GI: Palpation (GI): Soft to palpation and Other GI palpation findings present ( Nontender) Auscultation: normal bowel sounds Neuro: General: CN's II-XI intact bilaterally and other ( upper extremity strength is symmetric bilaterally) Extrem: General: No clubbing, No cyanosis and Yes other ( left BKA) Objective Data Labs 07/26/22 05:28 07/26/22 05:28 Labs: Laboratory Results - last 24 hr 07/25/22 07/25/22 07/25/22 16:30 16:30 17:01 WBC 17.2 H RBC 4.04 L Hgb 10.3 L Hct 33.1 L MCV 81.9 MCH 25.5 L MCHC 31.1 RDW 19.5 H Plt Count 305 D MPV 8.7 L Immature Gran % (Auto) 0.8 H Neut % (Auto) 62.2 Lymph % (Auto) 12.8 L [place] % (Auto) 12.9 H Eos % (Auto) 10.7 H Baso % (Auto) 0.6 Lymph # (Auto) 2.2 [place] # (Auto) 2.2 H Eos # (Auto) 1.8 H Baso # (Auto) 0.1 Abs Immat Gran (auto) 0.14 H Absolute Neuts (auto) 10.7 H Absolute Nucleated RBC 0.000 Nucleated RBC % (auto) 0.0 Smear Tech's Comments VERIFIED Whole Blood PT 16.3 H Whole Blood INR 1.4 H Sodium Potassium Chloride Carbon Dioxide Anion Gap BUN Creatinine Estim Creat Clear Calc Estimated GFR POC Glucose 81 Random Glucose Lactic Acid Calcium Magnesium Total Bilirubin Direct Bilirubin AST ALT Alkaline Phosphatase Troponin I High Sens Total Protein Albumin Triglycerides Cholesterol LDL Cholesterol, Calc HDL Cholesterol Ethyl Alcohol COVID-19 (TIFFANIE) COVID-19 [employer] 07/25/22 07/25/22 07/25/22 17:01 17:01 17:01 WBC RBC Hgb Hct MCV MCH MCHC RDW Plt Count MPV Immature Gran % (Auto) Neut % (Auto) Lymph % (Auto) [place] % (Auto) Eos % (Auto) Baso % (Auto) Lymph # (Auto) [place] # (Auto) Eos # (Auto) Baso # (Auto) Abs Immat Gran (auto) Absolute Neuts (auto) Absolute Nucleated RBC Nucleated RBC % (auto) Smear Tech's Comments Whole Blood PT Whole Blood INR Sodium 134 L Potassium 4.5 Chloride 99 Carbon Dioxide 28 Anion Gap 12 BUN 13 Creatinine 0.82 Estim Creat Clear Calc 56.5 Estimated GFR > 60 POC Glucose Random Glucose 69 Lactic Acid Calcium 8.4 D Magnesium 2.0 Total Bilirubin 0.2 Direct Bilirubin < 0.2 AST 31 ALT 25 Alkaline Phosphatase 87 Troponin I High Sens 7.0 Total Protein 6.3 L Albumin 3.0 L Triglycerides Cholesterol LDL Cholesterol, Calc HDL Cholesterol Ethyl Alcohol < 10 COVID-19 (TIFFANIE) COVID-19 [employer] 07/25/22 07/25/22 07/25/22 17:02 17:03 21:49 WBC RBC Hgb Hct MCV MCH MCHC RDW Plt Count MPV Immature Gran % (Auto) Neut % (Auto) Lymph % (Auto) [place] % (Auto) Eos % (Auto) Baso % (Auto) Lymph # (Auto) [place] # (Auto) Eos # (Auto) Baso # (Auto) Abs Immat Gran (auto) Absolute Neuts (auto) Absolute Nucleated RBC Nucleated RBC % (auto) Smear Tech's Comments Whole Blood PT Whole Blood INR Sodium Potassium Chloride Carbon Dioxide Anion Gap BUN Creatinine Estim Creat Clear Calc Estimated GFR POC Glucose 112 Random Glucose Lactic Acid 1.4 Calcium Magnesium Total Bilirubin Direct Bilirubin AST ALT Alkaline Phosphatase Troponin I High Sens Total Protein Albumin Triglycerides Cholesterol LDL Cholesterol, Calc HDL Cholesterol Ethyl Alcohol COVID-19 (TIFFANIE) Negative COVID-[employer] [facility] Com See Note 07/25/22 07/26/22 07/26/22 22:00 05:28 05:28 WBC 13.9 H RBC 3.53 L Hgb 9.3 L Hct 28.8 L MCV 81.6 MCH 26.3 L MCHC 32.3 RDW 19.2 H Plt Count 253 MPV 9.0 L Immature Gran % (Auto) 0.5 H Neut % (Auto) 56.7 Lymph % (Auto) 14.6 L [place] % (Auto) 13.0 H Eos % (Auto) 14.6 H Baso % (Auto) 0.6 Lymph # (Auto) 2.0 [place] # (Auto) 1.8 H Eos # (Auto) 2.0 H Baso # (Auto) 0.1 Abs Immat Gran (auto) 0.07 H Absolute Neuts (auto) 7.9 Absolute Nucleated RBC 0.000 Nucleated RBC % (auto) 0.0 Smear Tech's Comments VERIFIED Whole Blood PT Whole Blood INR Sodium 137 Potassium 4.0 Chloride 104 Carbon Dioxide 24 Anion Gap 13 BUN 13 Creatinine 0.78 Estim Creat Clear Calc 59.4 Estimated GFR > 60 POC Glucose Random Glucose 109 Lactic Acid 1.1 Calcium 8.6 Magnesium Total Bilirubin Direct Bilirubin AST ALT Alkaline Phosphatase Troponin I High Sens Total Protein Albumin Triglycerides 88 Cholesterol 101 LDL Cholesterol, Calc 62 HDL Cholesterol 22 Ethyl Alcohol COVID-19 (TIFFANIE) COVID-[employer] 07/26/22 07:16 WBC RBC Hgb Hct MCV MCH MCHC RDW Plt Count MPV Immature Gran % (Auto) Neut % (Auto) Lymph % (Auto) [place] % (Auto) Eos % (Auto) Baso % (Auto) Lymph # (Auto) [place] # (Auto) Eos # (Auto) Baso # (Auto) Abs Immat Gran (auto) Absolute Neuts (auto) Absolute Nucleated RBC Nucleated RBC % (auto) Smear Tech's Comments Whole Blood PT Whole Blood INR Sodium Potassium Chloride Carbon Dioxide Anion Gap BUN Creatinine Estim Creat Clear Calc Estimated GFR POC Glucose 113 Random Glucose Lactic Acid Calcium Magnesium Total Bilirubin Direct Bilirubin AST ALT Alkaline Phosphatase Troponin I High Sens Total Protein Albumin Triglycerides Cholesterol LDL Cholesterol, Calc HDL Cholesterol Ethyl Alcohol COVID-19 (TIFFANIE) COVID-19 Clin Com Progress Note: A&P Assessment and plan (1) Acute CVA (cerebrovascular accident): Status: Acute (2) CAD (coronary artery disease): Status: Acute (3) Atrial fibrillation: Status: Acute Plan Assessment: 67-year-old gentleman with multiple medical issues admitted with acute CVA status post tPA, monitored in the intensive care unit. Plan: Neuro: Acute CVA status post tPA with resolution left arm weakness. Patient refused follow-up MRI. Neurology service care appreciated. Right severe carotid stenosis. Cardiac: No acute issues. Underlying CAD, CHF, and AFib. Pulmonary: No acute issues. Renal: No acute issues. Endo: No acute issues. GI: No acute issues. ID: No acute issues Heme/Onc: leukocytosis is likely stress-induced, improving. Cultures are pending. Normotensive. Psych: No acute issues. Miscellaneous: No acute issues. Prophylaxis: Intermittent compression Diet: cardiac Quality Stroke Does the patient have a stroke diagnosis?: Yes Reason for No Anti-thrombotic by Day Two: N/A - Med Ordered VTE Prior VTE?: Yes VTE Risk Level:: Medical - moderate - high VTE Device Contraindication: N/A - Device Ordered VTE Drug Contraindication: Treatment Not Indicated
[2022-07-26 11:22] LABS: Glucose, Whole Blood 118 mg/dL (60-115)
--- NOTE | 2022-07-26 11:56 | PM.DS ---
DS: Providers Provider Date of Service: 07/26/22 Date of admission: 07/25/22 18:41 Primary care physician: Tony Rhodes MD Consults: 07/25/22 18:41 Consult to Neurology Routine Consulting Provider: [facility] Reason for consultation: CVA s/p tPA Has provider been notified: Yes DS: Diagnosis Discharge Diagnosis (1) Acute CVA (cerebrovascular accident): Status: Acute (2) CAD (coronary artery disease): Status: Acute (3) Atrial fibrillation: Status: Acute DS: Summary Hospital Course Hospital Course: from initial hpi: The patient is a 67-year-old male with a past medical history of atrial fibrillation, ? 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 ? According to the patient's patient stated that at approximately 1300 he was unable to move his left arm.??? Patient has a history of atrial fibrillation, was supposed to be on Eliquis? above patient states that he has not taking his medications since April of 2022 due to not being able to afford medication.? ?In the emergency room,? he was noted to not be able to move his left arm, but strength noted to be 5/5.? He has a history of left BKA, ? unable to do full neuro exam left extremity.? Head CT was negative, CTA shows chronic ICA occlusion, old infarcts.? Vital signs stable.? ?Laboratory data significant for? WBC 17.2, hemoglobin 13.3, hematocrit 33.3, serum sodium 134, albumin 3 ? Patient received tPA at 1659,? with no changes in neurological exam post tPA. hospital course: Patient was admitted to the intensive care unit for acute CVA status post tPA. He was monitored for 12 hours and had no obvious bleed. His deficits resolved. carotid Doppler showed right severe carotid stenosis Patient refused any further workup including echocardiogram Or MRI. he refused further monitoring and requested leave against medical advice. Patient is aware And demonstrated understanding of the risk of doing so including recurrent CVA and bleeding due to recent tPA. For chronic medical issues of paroxysmal atrial fibrillation, chronic systolic CHF, coronary disease, hypertension, hyperlipidemia, seizure disorder, COPD, peripheral vascular disease status post left BKA - patient does not appear to be taking any of his home meds. Time Spent with Patient Time attestation: Total time managing care of this patient today ____ minutes. Discharge coordination time: Greater than 30 minutes Quality: Safe Use of Opioids Does Pt have an Active Cancer Diagnosis on the Problem List?: No Quality: Stroke Does the patient have a stroke diagnosis?: Yes Reason for No Anti-thrombotic at DC: Refused Reason for No Anticoagulant at DC: Refused Reason Not Initiating IV-Tpa: N/A - Med Ordered Reason for No Anti-thrombotic by Day Two: Refused Reason for No Statin at DC: Refused Physical Exam Vital Signs: Vital Signs: Last Vital Signs Temp 98.5 F 07/26/22 08:00 Pulse 63 07/26/22 09:27 Resp 15 07/26/22 09:00 BP 153/54 H 07/26/22 09:27 Pulse Ox 99 07/26/22 09:27 O2 Del Method 07/26/22 09:00 BMI result Body Mass Index 20.0 Const: General: no acute distress, alert, awake and other ( Contentious, poorly compliant with exam) Eyes: Sclerae: sclerae normal EOM: EOMs intact bilaterally Neck: Neck: Yes no lymphadenopathy, Yes trachea midline and Yes supple Resp: Effort & Inspection: normal respiratory effort and no respiratory distress Auscultation: clear to auscultation bilaterally Cardio: Rate: regular rate Rhythm: regular rhythm Heart sounds: no gallops, no murmurs and no rubs GI: Palpation (GI): Soft to palpation and Other GI palpation findings present ( Nontender) Auscultation: normal bowel sounds Neuro: General: CN's II-XI intact bilaterally and other ( upper extremity strength is symmetric bilaterally) Extrem: General: No clubbing, No cyanosis and Yes other ( left BKA) DS: Data Data Completed and Pending Completed studies during hospitalization [Text1]: Procedures Insertion of Endotracheal Airway into Trachea, Via Natural or Artificial Opening Endoscopic (01/18/21) Insertion of Infusion Device into Superior Vena Cava, Percutaneous Approach (01/18/21) Introduction of Vasopressor into Central Vein, Percutaneous Approach (01/18/21) Respiratory Ventilation, 24-96 Consecutive Hours (01/18/21) Labs on day of discharge: Laboratory Results - last 24 hr 07/25/22 07/25/22 07/25/22 16:30 16:30 17:01 WBC 17.2 H RBC 4.04 L Hgb 10.3 L Hct 33.1 L MCV 81.9 MCH 25.5 L MCHC 31.1 RDW 19.5 H Plt Count 305 D MPV 8.7 L Immature Gran % (Auto) 0.8 H Neut % (Auto) 62.2 Lymph % (Auto) 12.8 L [place] % (Auto) 12.9 H Eos % (Auto) 10.7 H Baso % (Auto) 0.6 Lymph # (Auto) 2.2 [place] # (Auto) 2.2 H Eos # (Auto) 1.8 H Baso # (Auto) 0.1 Abs Immat Gran (auto) 0.14 H Absolute Neuts (auto) 10.7 H Absolute Nucleated RBC 0.000 Nucleated RBC % (auto) 0.0 Smear Tech's Comments VERIFIED Whole Blood PT 16.3 H Whole Blood INR 1.4 H Sodium Potassium Chloride Carbon Dioxide Anion Gap BUN Creatinine Estim Creat Clear Calc Estimated GFR POC Glucose 81 Random Glucose Lactic Acid Calcium Magnesium Total Bilirubin Direct Bilirubin AST ALT Alkaline Phosphatase Troponin I High Sens Total Protein Albumin Triglycerides Cholesterol LDL Cholesterol, Calc HDL Cholesterol Ethyl Alcohol COVID-19 (TIFFANIE) COVID-19 [employer] 07/25/22 07/25/22 07/25/22 17:01 17:01 17:01 WBC RBC Hgb Hct MCV MCH MCHC RDW Plt Count MPV Immature Gran % (Auto) Neut % (Auto) Lymph % (Auto) [place] % (Auto) Eos % (Auto) Baso % (Auto) Lymph # (Auto) [place] # (Auto) Eos # (Auto) Baso # (Auto) Abs Immat Gran (auto) Absolute Neuts (auto) Absolute Nucleated RBC Nucleated RBC % (auto) Smear Tech's Comments Whole Blood PT Whole Blood INR Sodium 134 L Potassium 4.5 Chloride 99 Carbon Dioxide 28 Anion Gap 12 BUN 13 Creatinine 0.82 Estim Creat Clear Calc 56.5 Estimated GFR > 60 POC Glucose Random Glucose 69 Lactic Acid Calcium 8.4 D Magnesium 2.0 Total Bilirubin 0.2 Direct Bilirubin < 0.2 AST 31 ALT 25 Alkaline Phosphatase 87 Troponin I High Sens 7.0 Total Protein 6.3 L Albumin 3.0 L Triglycerides Cholesterol LDL Cholesterol, Calc HDL Cholesterol Ethyl Alcohol < 10 COVID-19 (TIFFANIE) COVID-19 [employer] Com 0307/25/22 07/25/22 17:02 17:03 21:49 WBC RBC Hgb Hct MCV MCH MCHC RDW Plt Count MPV Immature Gran % (Auto) Neut % (Auto) Lymph % (Auto) [place] % (Auto) Eos % (Auto) Baso % (Auto) Lymph # (Auto) [place] # (Auto) Eos # (Auto) Baso # (Auto) Abs Immat Gran (auto) Absolute Neuts (auto) Absolute Nucleated RBC Nucleated RBC % (auto) Smear Tech's Comments Whole Blood PT Whole Blood INR Sodium Potassium Chloride Carbon Dioxide Anion Gap BUN Creatinine Estim Creat Clear Calc Estimated GFR POC Glucose 112 Random Glucose Lactic Acid 1.4 Calcium Magnesium Total Bilirubin Direct Bilirubin AST ALT Alkaline Phosphatase Troponin I High Sens Total Protein Albumin Triglycerides Cholesterol LDL Cholesterol, Calc HDL Cholesterol Ethyl Alcohol COVID-19 (TIFFANIE) Negative COVID-[employer] Com See Note 07/25/22 07/26/22 07/26/22 22:00 05:28 05:28 WBC 13.9 H RBC 3.53 L Hgb 9.3 L Hct 28.8 L MCV 81.6 MCH 26.3 L MCHC 32.3 RDW 19.2 H Plt Count 253 MPV 9.0 L Immature Gran % (Auto) 0.5 H Neut % (Auto) 56.7 Lymph % (Auto) 14.6 L [place] % (Auto) 13.0 H Eos % (Auto) 14.6 H Baso % (Auto) 0.6 Lymph # (Auto) 2.0 [place] # (Auto) 1.8 H Eos # (Auto) 2.0 H Baso # (Auto) 0.1 Abs Immat Gran (auto) 0.07 H Absolute Neuts (auto) 7.9 Absolute Nucleated RBC 0.000 Nucleated RBC % (auto) 0.0 Smear Tech's Comments VERIFIED Whole Blood PT Whole Blood INR Sodium 137 Potassium 4.0 Chloride 104 Carbon Dioxide 24 Anion Gap 13 BUN 13 Creatinine 0.78 Estim Creat Clear Calc 59.4 Estimated GFR > 60 POC Glucose Random Glucose 109 Lactic Acid 1.1 Calcium 8.6 Magnesium Total Bilirubin Direct Bilirubin AST ALT Alkaline Phosphatase Troponin I High Sens Total Protein Albumin Triglycerides 88 Cholesterol 101 LDL Cholesterol, Calc 62 HDL Cholesterol 22 Ethyl Alcohol COVID-19 (TIFFANIE) COVID-[employer] 07/26/22 07/26/22 07:16 11:07 WBC RBC Hgb Hct MCV MCH MCHC RDW Plt Count MPV Immature Gran % (Auto) Neut % (Auto) Lymph % (Auto) [place] % (Auto) Eos % (Auto) Baso % (Auto) Lymph # (Auto) [place] # (Auto) Eos # (Auto) Baso # (Auto) Abs Immat Gran (auto) Absolute Neuts (auto) Absolute Nucleated RBC Nucleated RBC % (auto) Smear Tech's Comments Whole Blood PT Whole Blood INR Sodium Potassium Chloride Carbon Dioxide Anion Gap BUN Creatinine Estim Creat Clear Calc Estimated GFR POC Glucose 113 118 H Random Glucose Lactic Acid Calcium Magnesium Total Bilirubin Direct Bilirubin AST ALT Alkaline Phosphatase Troponin I High Sens Total Protein Albumin Triglycerides Cholesterol LDL Cholesterol, Calc HDL Cholesterol Ethyl Alcohol COVID-19 (TIFFANIE) COVID-19 Clin Com Discharge Plan Discharge Anticipated Discharge Date/Time: 07/26/22 11:54 Patient Disposition: Left Against Medical Advice Discharge Diagnosis: cva Referrals: Tony Rhodes MD [Primary Care Provider] - 1 Week Discharge Medications: No Action No Known Home Meds Discharge Orders: Discharge Order (Routine); Ordered 07/26/22 Ordered By: Fausto March Diet: Advance to usual diet Activity on Discharge: As tolerated Care Plan Goals: prevent strokes Health Concerns: recent stroke and tpa given, risk fo rbleed and recurrent stroke Plan of Treatment: leaving ama, at risk for bleed and recurrent stroke, would restart anticolagulation tomorrow, would complete stroke work up, vascular follow up for carotid stenosis Assessment: see above
--- NOTE | 2022-07-26 11:57 | MHC.CM.PN ---
Patient has left AMA.
--- NOTE | 2022-07-26 12:04 | MHC.SL.SWA ---
Speech Pathologist Impression: WFL Risk of Aspiration Due to: Neurological Condition (CVA) Dysphasia Diet Status: Unmodified textures Liquid Consistency and Strategies for Safe Swallow: Liquid Intake Recommendation: Thin Solid Food Consistency: Dietary Recommendations: Regular Additional Modifications to Solid Foods: Pt seen for bedside dysphagia evaluation in the ICU this morning, unremarkable findings. Recommend regular texture diet with thin liquids, pills whole in puree or liquid per pt's tolerance. Discussed with RN on unit, notified MD and RD via [place] Message. Further ST intervention no longer warranted at this level of care. Please re-refer with any changes or further concern. Oral Medication Intake: Whole with Puree Please contact the pharmacy regarding appropriate crushable or liquid drug formulations that are available whenever modified delivery is recommended. Compensatory Strategies and Precautions to be Taken for Safe Swallow: Sitting Upright (90 deg) Small Bites and Sips Rate of Ingestion Change Supervision While Eating and Drinking for Safe Swallow: Intermittent Supervision Recommendation for Speech: NA:Typical Evaluation Band Maker Clinican/Clinical Fellow: No Supervisory Statement: I have reviewed and agree with the student/clinical fellow's documentation: N/A Speech Language Pathologist: Radha Crews M.A., CCC-QUALITY ASSURANCE LAB TECHNICIAN
--- NOTE | 2022-07-26 12:49 | PM.NEUROCN ---
History of Present Illness Data of Consult Service Date: 07/26/22 Primary Care Provider: Tony Rhodes MD [facility] Reason for consult: stroke 67 years old man with underlying history of Atrial fibrillation not anticoagulated and severe peripheral vascular disease status post left above knee amputation came to hospital yesterday with new onset of left-sided weakness that was noted in his arm. He was evaluated for acute stroke and considered candidate for intravenous tPA treatment, which was given within 4 hours. This morning he said that he was fine and his weakness was resolved and wanted to go home. There was no associated headache nausea vomiting or any speech or language difficulty. There was no pain. 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 Atrial fibrillation Atrial flutter Atrial flutter CAD (coronary artery disease) Cardiac arrest Cardiomyopathy CHF (congestive heart failure) Cocaine abuse with intoxication COPD (chronic obstructive pulmonary disease) Coronary bypass graft mechanical complication Drug abuse Fall 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 Heroin use History of hemorrhagic cerebrovascular accident (CVA) without residual deficits Hyperlipemia Leukocytosis MDD (major depressive disorder), recurrent episode, moderate Opioid use disorder Opioid use disorder, moderate, dependence Paroxysmal atrial fibrillation Pneumonia Pneumonitis PVD (peripheral vascular disease) Seizure disorder Seizure-like activity Subclavian arterial stenosis Toxic encephalopathy Surgical History Surgical History S/P CABG x 2 Social History Social History Household Members: Spouse Housing: House Do you presently have visiting nurse or other home services: Yes Unable to assess alcohol history related to: Unable to respond Alcohol intake: never Patient Tobacco Use Status: Current everyday Tobacco user Tobacco use type: Cigarette Cigarette Packs Per Day: 2 Cigarettes Per Day: 40.0 Years Smoked: 30 Smoked in Last 30 Days: Yes e-Cigarette/Vaping Use: Currently Using Patient Interested in Nicotine Replacement: Yes Patient Given Instructions on How to Stop Smoking: Yes Date Education Initiated: 07/25/22 Second Hand Smoke Exposure: No Use of substances other than those prescribed or required for medical reasons: No Substance Use Type: Heroin Currently Displaying Signs/Symptoms of Drug Intoxication Withdrawal: No Any prior treatment program specific to substance use: No Have you been hit, kicked, punched, or otherwise hurt by someone within the past year? If so, by whom?: No Do you feel safe in your current relationship?: Yes Is there a partner from a previous relationship who is making you feel unsafe now?: No Are you made to feel afraid or neglected: No Advance Directives: Yes Advance Directives Information Provided: Yes Advance Directives on File: Yes Advance Directives Date on File: 01/12/21 Do you have thoughts of harming others: None Do you have a plan to hurt others: No Plan Recently lost weight without trying: No Eating poorly because of decreased appetite: No Nutrition Risks: Dental problems Poor oral hygiene: Yes service: No Current occupational status: retired [employer] Allergies Allergy/AdvReac Type Severity Reaction Status Date / Time No Known Allergies Allergy Verified 05/04/22 22:24 Active Medications: Current Medications Pharmacy Consult (Consult Rx Perform Med Rec) 1 each MISCELLANE ONCE PRN PRN Reason: Consult order Sodium Chloride (0.9 % Sodium Chloride Flush 3 Ml Syringe) 3 ml IVFLUSH QSHIFT [facility] Last Admin: 07/26/22 08:46 Dose: 3 ml Home Medications Medication Instructions Recorded Confirmed Last Taken Type No Known Home Meds 07/26/22 07/26/22 Unknown History Physical Exam Vital Signs: Vital Signs: Last Vital Signs Temp 98.5 F 07/26/22 08:00 Pulse 63 07/26/22 09:27 Resp 15 07/26/22 09:00 BP 153/54 H 07/26/22 09:27 Pulse Ox 99 07/26/22 09:27 O2 Del Method 07/26/22 09:00 BMI result Body Mass Index 20.0 Neuro: Other: he was alert and awake with normal spontaneity of speech fluency comprehension and affect. Face was symmetrical. Visual hunt are full. There was no pronator drift. Hand and arm strength for full and symmetrical. There was atrophy of muscles and right leg and foot. Deep tendon reflexes were trace to absent in right leg and foot. Left leg was amputated. Results Labs 07/26/22 05:28 07/26/22 05:28 Labs: Short CBC 07/25/22 07/26/22 Range/Units 17:01 05:28 WBC 17.2 H 13.9 H (4.8-10.8) X10*3/uL Hgb 10.3 L 9.3 L (14.0-18.0) g/dl Hct 33.1 L 28.8 L (42.0-52.0) % Plt Count 305 D 253 (160-400) X10*3/uL BMP 07/25/22 07/26/22 17:01 05:28 Sodium 134 L 137 Potassium 4.5 4.0 Chloride 99 104 Carbon Dioxide 28 24 BUN 13 13 Creatinine 0.82 0.78 Calcium 8.4 D 8.6 Liver Function 07/25/22 Range/Units 17:01 Total Bilirubin 0.2 (0.0-1.0) mg/dL Direct Bilirubin < 0.2 (0.0-0.5) mg/dL AST 31 (5-37) U/L ALT 25 (0-40) U/L Alkaline Phosphatase 87 (39-117) U/L Albumin 3.0 L (3.5-5.0) g/dL head CT revealed a chronic left parietal infarction and microvascular disease with moderate cerebellar atrophy. CTA and carotid ultrasound revealed probably occluded left internal carotid artery and moderate to severe stenosis of right internal carotid artery Assessment and Plan (1) Acute CVA (cerebrovascular accident): Status: Acute 67 years old man with the previous atrial fibrillation not anticoagulated, severe peripheral vascular disease, occluded left internal carotid artery and moderate to severe right internal carotid artery stenosis presented with new onset of left-sided weakness. His leg had been amputated and weakness was noted in arm. He was treated with intravenous tPA that resulted in resolution of his symptoms. At this time mainstay of management is prevention of future strokes for which I would recommend anticoagulation and a baby aspirin daily. As far as right carotid disease is concerned, I recommend medical treatment. (2) Carotid artery occlusion: Status: Acute (3) Carotid artery stenosis: Status: Acute Time Spent With Patient Time: Total time managing care of this patient today ____ minutes. Procedures Date of Service Date of Service: 07/26/22
--- NOTE | 2022-07-26 13:07 | MHC.CM.PN ---
CM met with [facility] Protective Services Worker/Navya Taylor @ [phone], EXT. [phone], who wanted to introduce herself and express her availability to assist Patient.
--- NOTE | 2022-07-26 13:20 | PC.NURSE ---
REPORT GIVEN FROM PRIOR RN. PATIENT CARE TAKEN OVER, PATIENT TO BE BROUGHT FROM ICU TO NEW ROOM ON MED-TELE. PATIENT ESCORTED TO NEW FLOOR BY RN AND TRANSPORT STAFF. PATIENT PLACED ON TELEMETRY AND SWITCHED OVER TO MED-TEL BED. INITIAL SET OF VITALS TAKEN. PATIENT COMPLAINED ABOUT VITALS BEING TAKEN PER PROTOCOL. STATES HE WANTS TO LEAVE AND THAT WE ARE KEEPING HIM HERE AGAINST HIS WILL . RN HAD DISCUSSION WITH PATIENT ABOUT THE NEED TO REMAIN IN THE HOSPITAL WELL THE SIDE EFFECTS OF THE MEDICATIONS HE HAD BEEN ADMINISTERED AND THE RISK ASSOCIATED IF HE WAS TO LEAVE AMA. PATIENT INSISTED ON WANTING TO LEAVE AND THAT WE DIDN'T KNOW WHAT WE WERE DOING . RN TOLD PATIENT THAT HE WOULD MAKE THE MD AWARE OF HIS CONCERNS AND A DISCUSSION COULD BE HELD ABOUT HIS WISHES. MD CONTACTED BY RN. MD AND PATIENT HELD DISCUSSION ABOUT THE RISKS INVOLVED IF HE WERE TO LEAVE AMA. PATIENT PERSISTENT ON WANTING TO LEAVE. MD CONTACTED RN ABOUT CONVERSATION ABOUT AND DECISION THE PATIENT WAS GOING TO LEAVE AMA. TWO RN'S WENT INTO ROOM, EXPLAINED RISK TO PATIENT AGAIN ASSOCIATED WITH LEAVING. PATIENT CONTINUED TO WANT TO LEAVE. SIGNED AMA PAPERWORK AT APPROXIMATELY 1145. TWO RN PRESENT TO WITNESS SIGNATURE AND ALSO SIGN DOCUMENTATION.PATIENT STATES HE DOES NOT HAVE A RIDE, PATIENT CAN NOT SAFELY AMBULATE DUE TO PRIOR AKA. PATIENT REQUESTED A RIDE FROM HOSPITAL DUE TO INABILITY OF PATIENT TO OBTAIN A RIDE, INFORMED BY RN THAT THE HOSPITAL DOES NOT PROVIDE TRANSPORT FOR PATIENTS LEAVING AMA. PATIENT CONTINUED TO DEMAND A RIDE, RN INFORMED PATIENT HE WOULD LOOK INTO IF ANY ACCOMMODATIONS COULD BE DONE. RN CONTACTED NURSING TIPPLE WORKER, CASE MANAGEMENT, AND MD. RN INFORMED THAT THERE IS NO ACCOMMODATIONS THAT COULD BE MADE WELL NO WAY FOR THE PATIENT TO SAFELY AMBULATE FROM HOSPITAL TO MODE OF TRANSPORTATION DUE TO PATIENT PROSTATIC LEG BEING LEFT AT HOME. PATIENTS CONTACTED ON PATIENT CONDITION AND DECISION TO LEAVE AMA. STATES SHE CAN NOT DRIVE TO [facility] [employer] ANALYST HER BUT THAT SHE WOULD CALL TO ATTEMPT TO LOCATE A RIDE FOR HER FROM FAMILY FRIENDS. PENDING RETURN CALL. STROKE PROGRAM CLINICAL SERVICE COUNSELOR CONTACTED ABOUT PATIENT LEAVING AMA. SERVICE COUNSELOR INFORMED PATIENT OF RISKS OF LEAVING AMA. SERVICE COUNSELOR INFORMED RN ABOUT THE NEED TO HAVE RISK MANAGEMENT CONTACTED DUE TO THE HIGH RISK OF PATIENT LEAVING DUE TO TPA BEING ADMINISTERED THE PREVIOUS DAY AND STILL BEING WITHIN THE INITIAL 24 HOUR AFTER ADMINISTRATION. FIRE AND EXPLOSION INVESTIGATOR CONTACTED ABOUT THE HIGH RISK OF PATIENT LEAVING AMA, SITUATION EXPLAINED BY RN. RN INFORMED TO DOCUMENT NEUROLOGICAL STATUS OF PATIENT. AT TIME OF PATIENT SIGNING AMA PAPER WORK PATIENT WAS A&OX4, ABLE TO FULLY GRASP DISCUSSION TOPICS, AND MAKE DECISIONS FOR HIMSELF. RN AND PROTECTIVE SERVICES AGENT IN ROOM AND HAD DISCUSSION WITH PATIENT ABOUT PATIENT HEALTH AND FUTURE CARE. PATIENT STATED HE DID NOT CARE ABOUT HIS WOUNDS AND THAT IF THEY KILL THEM THEY KILL HIM . NURSING TIPPLE WORKER CONTACTED TO DETERMINE WHERE TO PLACE PATIENT UNTIL RIDE IS AVAILABLE. RN INFORMED BY PATIENT TIPPLE WORKER TO HAVE PATIENT REMAIN IN CURRENT ROOM UNTIL RIDE IS AVAILABLE IT IS A SAFER ALTERNATIVE THEN TO HAVE TO PATIENT BROUGHT TO THE DISCHARGE LOUNGE WHERE A POTENTIAL FALL COULD OCCUR. RN INFORMED THAT CARE WOULD BE STOPPED AT THIS TIME (1200) NORMAL FOR PATIENTS LEAVING AMA, TELEMETRY DISCONTINUED, AND IVS REMOVED.
--- NOTE | 2022-07-26 16:13 | MHC.STROKE ---
late entry note: 07/25/22 at 1552. [facility] pre-notified Stroke Alert Unable to move left arm onset 1300. Arrived at [facility] 1558, Examined by provider and driect to CT and CTA H/N. NIHSS = 3, at 1607. No bleed, no LVO. Although CTA had several abnormalities, Left ICA occluded, Right ICA 99% stenosis. History of AFib and unsure if the patient was taking his medications. It was determined that the patient was eligible for Alteplase, Provider spoke with Neurologist. Alteplase 41.7mg given at 1659, bolus dose over 1 minute then drip over 1 hour. Greater than 30, 45, 60 minutes because there needed to be clarification of the the onset time, and if he was taking his Eliquis, therefore TPA alteplase [id number]-[id number] = 61 minutes. He remained NPO all night and passed the Nursing Swallow Scree in the am. I met with the patient to provide stroke education and he would not cooperate. He was leaving AMA. I tried to explain why he needs to stay and get him to comply but he would not. He did not have any complications post-tpa. He had a very serious and significant PMH. See MD notes. He was seen by the Neurologist. See his note. He is excluded from some of the Stroke Quality Measures due to AMA at discharge. He departed at 1433.
== END 2022-07-26 14:33 | disposition left against medical advice (07) | DRG 62 ==
LOC: HO.ED 18:16 → HO.EDOVER 18:52 → HO.ICU 18:55 → HO.IMC 07-26 09:38
PROVIDERS: Registered Nurse Community Health; Admitting Provider Internal Medicine Pulmonary Disease; Emergency Provider Emergency Medicine; PCP Internal Medicine; Visit Provider Internal Medicine
DX: I63.9 Cerebral infarction, unspecified (principal); I50.22 Chronic systolic (congestive) heart failure; G83.24 Monoplegia of upper limb affecting left nondominant side; I25.10 Atherosclerotic heart disease of native coronary artery without angina pectoris; J44.9 Chronic obstructive pulmonary disease, unspecified; I48.0 Paroxysmal atrial fibrillation; G40.909 Epilepsy, unspecified, not intractable, without status epilepticus; R29.703 NIHSS score 3; I95.9 Hypotension, unspecified; T45.516A Underdosing of anticoagulants, initial encounter; Z91.120 Patient's intentional underdosing of medication regimen due to financial hardship; R62.7 Adult failure to thrive; Z68.20 Body mass index [BMI] 20.0-20.9, adult; I65.23 Occlusion and stenosis of bilateral carotid arteries; I11.0 Hypertensive heart disease with heart failure; E78.5 Hyperlipidemia, unspecified; I73.9 Peripheral vascular disease, unspecified; Z89.612 Acquired absence of left leg above knee; Z95.1 Presence of aortocoronary bypass graft; D72.829 Elevated white blood cell count, unspecified; F17.210 Nicotine dependence, cigarettes, uncomplicated; Z71.6 Tobacco abuse counseling; Z20.822 Contact with and (suspected) exposure to COVID-19
CPT/HCPCS: 36415; 70450; 70496; 70498; 80048; 80061; 80076; 82077; 82947; 83605; 83735; 84484; 85025; 85610; 87040; 87635; 92610; 93005; 93880; 97162; 97166; 99285; J2997; P9047; Q9967

== ENCOUNTER 2022-12-03 12:59 | Outpatient (RCR) | payer MEDICARE, SELFPAY | END 2023-02-25 10:15 | disposition home or self-care (01) | LOC: HO.WCC 12:59 | PROVIDERS: PCP Internal Medicine; Visit Provider Physician Assistant | DX: L89.214 Pressure ulcer of right hip, stage 4 (principal); I73.9 Peripheral vascular disease, unspecified; I11.0 Hypertensive heart disease with heart failure; I50.9 Heart failure, unspecified; I48.91 Unspecified atrial fibrillation; I25.10 Atherosclerotic heart disease of native coronary artery without angina pectoris; I25.2 Old myocardial infarction; J44.9 Chronic obstructive pulmonary disease, unspecified; Z89.612 Acquired absence of left leg above knee; Z87.891 Personal history of nicotine dependence; Z86.73 Personal history of transient ischemic attack (TIA), and cerebral infarction without residual deficits | CPT/HCPCS: 11042; 11043 ==

== ENCOUNTER 2023-01-19 03:22 | Emergency (ER) | payer MEDICARE, SELFPAY ==
--- NOTE | ~2023-01-19 | CT_ITS ---
EXAMINATION: CT HEAD WITHOUT CONTRAST CLINICAL INFORMATION: Mental status change. COMPARISON: 07/25/2022 TECHNIQUE: Contiguous axial imaging was performed from the skull base to vertex without intravenous administration of contrast. This CT examination was performed using dose optimization techniques as appropriate, variously including the following: *Automated exposure control *Adjustment of mA and/or kV according to patient size (this includes techniques or standardized protocols for targeted exams where dose is matched to indication/reason for exam; i.e. extremities or head) *Use of iterative reconstruction technique DLP: 587 mGy-cm FINDINGS: There is cerebral volume loss with prominence of the lateral and the third ventricles. The cortical sulci are widened appropriately. The fourth ventricle and basal cisterns are normally outlined. There is an old temporoparietal infarct on the left. There are old left frontal, left periventricular white matter and left basal ganglia infarcts. There is mild bilateral periventricular and central white matter diminished attenuation. There is no acute territorial defect, hemorrhage or midline shift. The extra-axial spaces are unremarkable. Calvarium: Intact. Maxillofacial sinuses and mastoids: There is mucosal thickening throughout the maxillofacial sinuses with a left maxillary sinus opacity. CT/CT head/brain wo IV con IMPRESSION: No acute intracranial pathology. Cerebral volume loss and mild bilateral periventricular and central white matter diminished attenuation which is nonspecific but likely to represent microvascular disease. Multiple old left-sided infarcts. No significant change.
[2023-01-19 03:37] VITALS: BP 112/77; PULSE 105; PULSE 110; RESP 20; TEMP 36.6; O2SAT 97; O2SAT 98; BMI 25.8
[2023-01-19 04:31] LABS: Hematocrit 38.2 % (42.0-52.0); Hemoglobin 12.7 g/dl (14.0-18.0); Mean Corpuscular HGB Conc 33.2 g/dl (31.0-36.0); Mean Corpuscular Hemoglobin 25.9 pg (27.0-33.0); Mean Platelet Volume 8.8 fL (9.4-12.4); Platelet Count 208 X10*3/uL (160-400); Red Cell Distribution Width 20.1 % (11.0-16.0); White Blood Count 14.2 X10*3/uL (4.8-10.8)
[2023-01-19 04:49] LABS: Alanine Aminotransferase 16 U/L (0-40); Albumin Level 3.7 g/dL (3.5-5.0); Alkaline Phosphatase 117 U/L (39-117); Anion Gap 14 (12-20); Aspartate Amino Transferase 21 U/L (5-37); Bilirubin Total 0.3 mg/dL (0.0-1.0); Blood Urea Nitrogen 8 mg/dL (9-16); Calcium 9.7 mg/dL (8.4-10.2); Carbon Dioxide 25 mmol/L (22-29); Chloride 101 mmol/L (96-108); Creatinine Clr Calc Pharmacy 78.7; Estimated Glomerular Filt Rate > 60; Glucose Random 115 mg/dL (60-115); Potassium 4.4 mmol/L (3.3-5.1); Sodium 136 mmol/L (135-145); Total Protein 7.9 g/dL (6.5-8.0)
[2023-01-19 05:23] VITALS: BP 140/80; PULSE 97; RESP 16; TEMP 36.8; O2SAT 96
--- NOTE | 2023-01-19 05:26 | MHC.EDTECH ---
Hourly rounds and vitals completed, assisted patient with using the urinal,patient voided 600cc. Urine specimen collected and sent to lab
--- NOTE | 2023-01-19 05:32 | ECG_ITS ---
Test Reason : AMS Blood Pressure : / mmHG Vent. Rate : 104 BPM Atrial Rate : 104 BPM P-R Int : 162 ms QRS Dur : 096 ms QT Int : 380 ms P-R-T Axes : 077 084 076 degrees QTc Int : 499 ms Sinus tachycardia Possible Left atrial enlargement Minimal voltage criteria for LVH, may be normal variant ( [place] product ) Cannot rule out Anteroseptal infarct (cited on or before 25-JUL-2022) Abnormal ECG When compared with ECG of 25-JUL-2022 16:56, Vent. rate has increased BY 48 BPM T wave inversion no longer evident in Anterior leads Referred By: Panda Vivas Electronically Signed By:ANIRUDH YI
[2023-01-19 05:33] LABS: Appearance Urine Clear; Color Urine Yellow; Glucose Urine UA Negative (Negative); Leukocyte Esterase Urine Negative (Negative); Nitrite Urine Negative (Negative); PH 6.5 (5.0-9.0); Specific Gravity - Urine <= 1.005 (1.005-1.025); Urine Blood Negative (Negative); Urine Ketones Negative (Negative); Urine Protein Negative (Neg-Trace)
[2023-01-19 05:38] LABS: Bacteria Urine None Seen (None Seen); Hyaline Casts Urine 0-2 /LPF (0-2); RBC Urine 0-2 /HPF (0-2); Squamous Epithelial Cell Urine 0-2 /HPF (0-2); WBC Urine 0-5 /HPF (0-5)
--- NOTE | 2023-01-19 05:51 | PC.NURSE ---
Pt BIBA for reported seizure by . Upon arrival [employer] pt was confused and combative. Pt calm and cooperative upon arrival to ED. Alert and oriented to self only, lethargic. Pt incontinent of urine. All clothes removed and pt cleaned/Chauncey applied. Pt has old healed wound to coccyx and several other wounds of different stages that were all redressed. IV placed, #20 in L-AC, labs drawn and updated on pt current situation.
[2023-01-19 06:06] VITALS: BP 164/89; PULSE 103; RESP 16; TEMP 36.7; O2SAT 97
--- NOTE | 2023-01-19 06:08 | MHC.EDTECH ---
Hourly rounds and vitals completed and EKG was obtained.
[2023-01-19 06:23] LABS: Amphetamine Screen Urine Not Detected (Not Detect); Barbiturates, Urine Not Detected (Not Detect); Benzodiazepines Screen Urine Not Detected (Not Detect); Cannabinoid Screen Urine Not Detected (Not Detect); Cocaine Screen Urine Not Detected (Not Detect); Fentanyl, urine POSITIVE (Not Detect); Opiate Screen Urine Not Detected (Not Detect); Phencyclidine Screen Urine Not Detected (Not Detect)
[2023-01-19] MEDS: levETIRAcetam 500 MG/5 ML VIAL 1000 MG IV (06:46)
--- NOTE | 2023-01-19 07:02 | ED.GENADULT ---
HPI - General Adult General Chief complaint: Altered Mental Status Stated complaint: ams Time Seen by Provider: 01/19/23 05:27 Source: EMS Mode of arrival: EMS History of Present Illness HPI narrative: This is a 67 years old male with history of substance abuse, history of CVA atrial fibrillation peripheral vascular disease status post left BKA presented to emergency room after seizure at home. The patient was initially combative postictal when seen by insurance consultant. He denies any fever chills vomiting and diarrhea Onset (ago): hour(s) (2) Radiation: non-radiation Severity: moderate Pain Consistency: now resolved Relieving factors: none Exacerbating factors: none Related Data Previous Rx's Medication Instructions Recorded levetiracetam 500 mg tablet 500 mg PO BID #60 tabs 01/19/23 (Keppra) Allergies Allergy/AdvReac Type Severity Reaction Status Date / Time No Known Allergies Allergy Verified 05/04/22 22:24 Review of Systems Constitutional: Constitutional: Reports no additional constitutional complaints Cardiovascular: Cardiovascular: Reports no additional cardiovascular complaints Gastrointestinal: Gastrointestinal: Reports no additional gastrointestinal complaints Neurologic: Reports as per HPI and Reports confusion Psychiatric: Psychiatric: Reports confusion [facility] Past Medical History Medical History Fall Leukocytosis MDD (major depressive disorder), recurrent episode, moderate Opioid use disorder, moderate, dependence Pneumonitis Pneumonia Atherosclerotic cardiovascular disease History of hemorrhagic cerebrovascular accident (CVA) without residual deficits Subclavian arterial stenosis Atrial flutter Cardiomyopathy Opioid use disorder Seizure disorder Acute combined systolic and diastolic congestive heart failure COPD (chronic obstructive pulmonary disease) Cocaine abuse with intoxication Toxic encephalopathy 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 Hyperlipemia CHF (congestive heart failure) Seizure-like activity Cardiac arrest Atrial flutter Drug abuse Atrial fibrillation Paroxysmal atrial fibrillation PVD (peripheral vascular disease) CAD (coronary artery disease) Heroin use Surgical History S/P CABG x 2 Social History Social History Household Members: Spouse Housing: House Do you presently have visiting nurse or other home services: Yes Unable to assess alcohol history related to: Unable to respond Alcohol intake: current Alcohol intake frequency: holidays/special occasions only Patient Tobacco Use Status: Current everyday Tobacco user Tobacco use type: Cigarette Cigarette Packs Per Day: 2 Cigarettes Per Day: 40.0 Years Smoked: 30 Smoked in Last 30 Days: Yes e-Cigarette/Vaping Use: Currently Using Second Hand Smoke Exposure: No Use of substances other than those prescribed or required for medical reasons: No Substance Use Type: Heroin Advance Directives: Yes Advance Directives on File: Yes Advance Directives Date on File: 01/12/21 service: No Current occupational status: retired Physical Exam ED Vital Signs: Vital Signs - 24 hr 01/19/23 03:37 01/19/23 05:23 01/19/23 06:06 Temperature 97.8 F 98.2 F 98.0 F Pulse Rate 105 H 97 103 H Respiratory Rate 20 16 16 Blood Pressure 112/77 140/80 H 164/89 H Pulse Oximetry 97 96 97 Oxygen Delivery Method Room Air Room Air Room Air 01/19/23 10:00 Temperature Pulse Rate 90 Respiratory Rate 16 Blood Pressure 119/60 Pulse Oximetry 95 Oxygen Delivery Method Room Air BMI result Body Mass Index 25.8 Const General: cooperative, no acute distress and confusion Nutritional Appearance: average body habitus Orientation/consciousness: oriented to place, oriented to time and confusion HENMT Head: Yes normal to inspection Face and sinus: Yes normal facial exam Throat: Yes posterior oropharynx normal Neck Neck: Yes normal visual inspection Thyroid: Thyroid normal Chest Chest palpation & inspection: normal inspection of the chest Resp Effort & Inspection: normal respiratory effort and able to speak in complete sentences Auscultation: clear to auscultation bilaterally Cardio Jugular venous distension: no JVD Rate: regular rate Rhythm: regular rhythm GI Inspection: Yes normal to inspection Percussion: Yes normal to percussion Neuro General: oriented to place, oriented to time and confusion Cranial nerves: Yes CN's II-XII intact bilaterally Extrem Other: Left BKA Patient has 2 ulcer in the gluteal area Course Reevaluation(s) Reevaluation #1: he is feeling better reviewing the medical record patient as history of seizure in the past he was on Keppra which has not been refilled recently. Will go ahead and load the patient with Keppra. Time: 08:31 Reevaluation #2: I spoke with the Dinorah she describe to me seizure activity,she states that he has not had seizure,but his medical record report hx of seizure ,I reviewed medical record from [facility]( admission from 11/04 to 11/13 2022) as well they mention seizure stating that he was on keppra in the past last refilled in 2020 Time: 09:51 Reevaluation #3: remain stable we are waiting for Dinorah his Time: 13:03 Medications Administered Discontinued Medications Generic Name Dose Route Start Last Admin Trade Name Freq PRN Reason Stop Dose Admin Levetiracetam 1,000 mg 01/19/23 06:21 01/19/23 06:46 Levetiracetam 500 Mg/5 Ml Vial IV 01/19/23 06:22 1,000 mg ONCE ONE Administration Medical Decision Making Medical Decision Making MDM Narrative: Patient presented with a seizure, will obtain blood work CT scan of the head will load with Keppra Differential Diagnosis Differential Diagnoses: The differential diagnosis associated with the presentation includes Seizure disorder/drug abuse/alcohol withdrawal Admission/Observation Consideration of admission/observation: Escalation of care including admission/observation considered Lab Data 01/19/23 04:20 01/19/23 04:20 Labs: Lab Results 01/19/23 01/19/23 Range/Units 04:20 05:25 WBC 14.2 H (4.8-10.8) X10*3/uL RBC 4.90 D (4.60-5.80) X10*6/uL Hgb 12.7 L D (14.0-18.0) g/dl Hct 38.2 L D (42.0-52.0) % MCV 78.0 L (80.0-98.0) fL MCH 25.9 L (27.0-33.0) pg MCHC 33.2 (31.0-36.0) g/dl RDW 20.1 H (11.0-16.0) % Plt Count 208 (160-400) X10*3/uL MPV 8.8 L (9.4-12.4) fL Absolute Nucleated RBC 0.000 (0.0-0.012) X10*3/uL Nucleated RBC % (auto) 0.0 (0.0-0.2) /100WBC Sodium 136 (135-145) mmol/L Potassium 4.4 (3.3-5.1) mmol/L Chloride 101 (96-108) mmol/L Carbon Dioxide 25 (22-29) mmol/L Anion Gap 14 (12-20) BUN 8 L (9-16) mg/dL Creatinine 0.81 (0.5-1.4) mg/dL Estim Creat Clear Calc 78.7 Estimated GFR > 60 Random Glucose 115 (60-115) mg/dL Calcium 9.7 D (8.4-10.2) mg/dL Total Bilirubin 0.3 (0.0-1.0) mg/dL AST 21 (5-37) U/L ALT 16 (0-40) U/L Alkaline Phosphatase 117 (39-117) U/L Total Protein 7.9 (6.5-8.0) g/dL Albumin 3.7 (3.5-5.0) g/dL Urine Color Yellow Urine Appearance Clear Urine pH 6.5 (5.0-9.0) Ur Specific [place] <= 1.005 (1.005-1.025) Urine Protein Negative (Neg-Trace) mg/dL Urine Glucose (UA) Negative (Negative) mg/dL Urine Ketones Negative (Negative) mg/dL Urine Blood Negative (Negative) Urine Nitrite Negative (Negative) Ur Leukocyte Esterase Negative (Negative) Urine RBC 0-2 (0-2) /HPF Urine WBC 0-5 (0-5) /HPF Ur Squamous Epith Cells 0-2 (0-2) /HPF Urine Bacteria None Seen (None Seen) Hyaline Casts 0-2 (0-2) /LPF Urine Opiates Screen Not Detected (Not Detect) Urine Fentanyl Screen POSITIVE H (Not Detect) Ur Barbiturates Screen Not Detected (Not Detect) Ur Phencyclidine Scrn Not Detected (Not Detect) Ur Amphetamines Screen Not Detected (Not Detect) U Benzodiazepines Scrn Not Detected (Not Detect) Urine Cocaine Screen Not Detected (Not Detect) U Marijuana (THC) Screen Not Detected (Not Detect) Ethyl Alcohol < 10 mg/dL Independent Interpretation I performed an independent interpretation of an: EKG (Sinus tachycardia rate 104 poor R-wave progression) Discharge Plan Discharge Clinical Impression: Seizure Patient Disposition: Home, Self-Care Instructions: Recurrent Seizures in Adults (ED) Prescriptions: New levetiracetam [Keppra] 500 mg tablet 500 mg PO BID Qty: 60 0RF Referrals: [facility] [Outside] - 2 days (LONG-TERM FOR WOUND CARE, A NURSE WILL REACH OUT TO YOU TO ARRANGE FIRST VISIT. ) Tony Rhodes MD [Physician] - 1 week
[2023-01-19 07:57] LABS: Ethanol < 10 mg/dL
[2023-01-19 10:00] VITALS: BP 119/60; PULSE 90; RESP 16; O2SAT 95
--- NOTE | 2023-01-19 10:56 | MHC.CM.PN ---
Addendum entered by Krystal Travis RN 01/19/23 13:31: CM CONTACTED PT'S FANY AT NEW NUMBER ON FILE SHE WAS REQUESTING AMBULANCE TRANSPORT HOME, PER PT'S PT WAS SUPPOSED TO GO TO WOUND CLINIC IN [facility], FANY INSTRUCTED TO AND REPORTS SHE WILL FOLLOW UP W/PCP OFFICE TOMORROW MORNING THEY WERE SUPPOSED TO SEND REFERRAL FOR WOUND CLINIC IN [facility]. FANY AWARE DINO HAS BEEN SENT TO [facility]. Original Note: EMR REVIEWED, CM RECEIVED CONSULT FROM DR. RICHEY WHO REQUESTED [facility] PER PT'S REQUEST, CM ATTEMPTED TO CONTACT PT'S X3 W/NO ANSWER, CM MET W/PT WHO REPORTS HE LIVES W/, USES A W/C AT [facility] D/T L BKA, PT REPORTS HE WILL ACCEPT [facility]NA FOR ALF AND IS AGREEABLE TO [facility], PT ACCEPTED BY [facility] FOR SN, PER ELARA THEY ARE UNABLE TO PROVIDE PT HAS HX OF NONCOMPLIANCE. CM WILL REATTEMPT TO CONTACT WHO IS LOOKING FOR RIDE FOR PT SHE DOES NOT HAVE A VEHICLE.
--- NOTE | 2023-01-19 11:19 | PC.NURSE ---
pt aox4, reporting no pain. no seizure activity noted- pt converses in full sentences and answerers questions appropriately. wounds on buttocks and hips dressed by previous shift, wounds appear to be in various stages of healing. pt reports that they are ambulatory and is encouraged to walk, move and change positions to prevent further wounds. no seizure activity noted, precautions are in place. CM met with pt, VNA services will be sent to residence to assist pt. will ctm
== END 2023-01-19 14:17 | disposition home or self-care (01) ==
PROVIDERS: Emergency Provider Emergency Medicine
DX: R56.9 Unspecified convulsions (principal); R41.82 Altered mental status, unspecified; R00.0 Tachycardia, unspecified; R51.9 Headache, unspecified; F17.210 Nicotine dependence, cigarettes, uncomplicated; Z71.6 Tobacco abuse counseling; Z79.899 Other long term (current) drug therapy; Z86.73 Personal history of transient ischemic attack (TIA), and cerebral infarction without residual deficits
CPT/HCPCS: 36415; 70450; 80053; 80307; 81001; 85027; 93005; 96365; 99284; J1953

== ENCOUNTER 2023-04-27 13:08 | Inpatient (IN) | payer MEDICARE, SELFPAY ==
[2023-04-27] VITALS (8 sets, daily range): BP systolic 125–142; BP diastolic 70–85; PULSE 72–120; RESP 14–22; TEMP 36.6–37.3; O2SAT 91–100; BMI 22.2
--- NOTE | 2023-04-27 | ECG_ITS ---
Test Reason : CHEST PAIN Blood Pressure : / mmHG Vent. Rate : 104 BPM Atrial Rate : 104 BPM P-R Int : 138 ms QRS Dur : 104 ms QT Int : 394 ms P-R-T Axes : 088 091 099 degrees QTc Int : 518 ms Sinus tachycardia with Premature atrial complexes with Aberrant conduction Rightward axis Minimal voltage criteria for LVH, may be normal variant ( Vlad product ) Cannot rule out Anteroseptal infarct (cited on or before 25-JUL-2022) Abnormal ECG When compared with ECG of 19-JAN-2023 06:04, Aberrant conduction is now Present Referred By: Generic ED Physician Electronically Signed By:Mukesh Alvares
--- NOTE | ~2023-04-27 | XR_ITS ---
Examination: Chest, left femur and pelvis. Clinical indications: The bones and the tip of the stomach and over the greater trochanter. COMPARISON: CT chest 06/15/2021. TECHNIQUE: Chest one view, left femur 2 views and pelvis one view. FINDINGS: CHEST: The lungs are well-expanded and clear. The heart size and pulmonary vascularity is normal. There are median sternotomy sutures from previous intervention. No gross bony abnormality seen. PELVIS AND LEFT FEMUR: There is deformity involving the left proximal femur. There is mid femoral amputation. The stomach appears unremarkable. The right hip joint space is normal. No visible acute fracture, dislocation seen. SI joints are symmetrical and normal. Incidental finding of mild degenerative disc changes throughout lower lumbar spine. XR/XR pelvis 1-2V IMPRESSION: 1. Unremarkable chest exam. 2. Mid left femoral amputation. The stump appears unremarkable. 3. No acute fracture or dislocation left hip. The right hip joint space appears unremarkable. Mild degenerative disc changes lower lumbar spine.
--- NOTE | ~2023-04-27 | CT_ITS ---
EXAMINATION: CT HEAD WITHOUT CONTRAST CLINICAL INFORMATION: Seizure, history of prior CVAs COMPARISON: CT head on 01/19/2023 and 07/25/2022 TECHNIQUE: Contiguous axial imaging was performed from the skull base to vertex without intravenous administration of contrast. This CT examination was performed using dose optimization techniques as appropriate, variously including the following: *Automated exposure control *Adjustment of mA and/or kV according to patient size (this includes techniques or standardized protocols for targeted exams where dose is matched to indication/reason for exam; i.e. extremities or head) *Use of iterative reconstruction technique DLP: 682.26 mGy-cm FINDINGS: Multifocal hypodensity involving the left cerebellar hemisphere, new when compared to recent head CTs. Encephalomalacic changes in the left temporal lobe. No intracranial hemorrhage. Patchy hypodensities involving the periventricular and deep white matter compatible with small vessel ischemic disease. Diffuse widening of the sulci with associated ex vacuo dilation of the ventricles compatible with global cerebral atrophy. No midline shift or hydrocephalus. No acute extra-axial fluid collections. The osseous structures are unremarkable. No orbital pathology. Mucosal thickening of the paranasal sinuses. Polypoid protrusion along the left nasopharynx and extending to the posterior aspect of the left nasal cavity appears stable to slightly more prominent on today's examination. The mastoid air cells are clear. Atherosclerotic calcifications of the bilateral carotid siphons and visualized intracranial vertebral arteries. CT/CT head/brain wo IV con IMPRESSION: -Multifocal hypodensity involving the left cerebellar hemisphere, new when compared to recent head CTS. Findings are concerning for acute to subacute infarct. -Mucosal thickening of the paranasal sinuses. Stable to slightly more prominent polypoid protrusion along the left nasopharynx extending into the posterior left nasal cavity.
--- NOTE | ~2023-04-27 | XR_ITS ---
Examination: Chest, left femur and pelvis. Clinical indications: The bones and the tip of the stomach and over the greater trochanter. COMPARISON: CT chest 06/15/2021. TECHNIQUE: Chest one view, left femur 2 views and pelvis one view. FINDINGS: CHEST: The lungs are well-expanded and clear. The heart size and pulmonary vascularity is normal. There are median sternotomy sutures from previous intervention. No gross bony abnormality seen. PELVIS AND LEFT FEMUR: There is deformity involving the left proximal femur. There is mid femoral amputation. The stomach appears unremarkable. The right hip joint space is normal. No visible acute fracture, dislocation seen. SI joints are symmetrical and normal. Incidental finding of mild degenerative disc changes throughout lower lumbar spine. XR/XR femur LT 2V IMPRESSION: 1. Unremarkable chest exam. 2. Mid left femoral amputation. The stump appears unremarkable. 3. No acute fracture or dislocation left hip. The right hip joint space appears unremarkable. Mild degenerative disc changes lower lumbar spine.
--- NOTE | ~2023-04-27 | CT_ITS ---
EXAMINATION: CT HIP WITH CONTRAST, RIGHT CLINICAL INFORMATION: Open wound. Evaluate for osteomyelitis. COMPARISON: Most recent pelvic and femur radiographs dated 04/27/2023. TECHNIQUE: Contiguous axial CT images of the right hip were obtained without contrast. Multiplanar reformats were provided and reviewed. This CT examination was performed using dose optimization techniques as appropriate, variously including the following: *Automated exposure control *Adjustment of mA and/or kV according to patient size (this includes techniques or standardized protocols for targeted exams where dose is matched to indication/reason for exam; i.e. extremities or head) *Use of iterative reconstruction technique DLP: 166 mGy-cm FINDINGS: Soft tissue wound laterally in the region of the greater trochanter with adjacent skin thickening and subcutaneous edema measuring up to 4.3 cm in AP dimension. Findings are consistent with acute cellulitis. No organized fluid collection or abscess formation. No peripherally enhancing fluid collection in this region. Minimal adjacent cortical lucency within the lateral aspect of the greater trochanter without periosteal reaction or significant cortical erosion. Findings could represent sequela of early osteomyelitis in the appropriate clinical setting. No acute fracture or dislocation. Mild right hip joint space narrowing with small marginal osteophytes. Geographic, ground-glass density within the femoral head measuring approximately 4.3 x 3.5 cm (AP x ML), consistent with chronic avascular necrosis. No cortical collapse. No concerning lytic or blastic osseous lesion. The visualized muscles and tendons are grossly intact, however, evaluation is limited on CT examination. No soft tissue mass or fluid collection. Severe atherosclerotic calcifications. Partially visualized anterior pelvic wall bypass graft. CT/CT hip RT w IV con IMPRESSION: 1. Soft tissue wound laterally in the region of the greater trochanter with adjacent skin thickening and subcutaneous edema, consistent with acute cellulitis. No organized fluid collection or abscess formation. 2. Minimal adjacent cortical lucency within the lateral aspect of the greater trochanter without periosteal reaction or significant cortical erosion. Findings could represent sequela of early osteomyelitis in the appropriate clinical setting. 3. Chronic avascular necrosis within the femoral head without cortical collapse. 4. Mild right hip osteoarthritis.
--- NOTE | ~2023-04-27 | XR_ITS ---
Examination: Chest, left femur and pelvis. Clinical indications: The bones and the tip of the stomach and over the greater trochanter. COMPARISON: CT chest 06/15/2021. TECHNIQUE: Chest one view, left femur 2 views and pelvis one view. FINDINGS: CHEST: The lungs are well-expanded and clear. The heart size and pulmonary vascularity is normal. There are median sternotomy sutures from previous intervention. No gross bony abnormality seen. PELVIS AND LEFT FEMUR: There is deformity involving the left proximal femur. There is mid femoral amputation. The stomach appears unremarkable. The right hip joint space is normal. No visible acute fracture, dislocation seen. SI joints are symmetrical and normal. Incidental finding of mild degenerative disc changes throughout lower lumbar spine. XR/XR chest 1V IMPRESSION: 1. Unremarkable chest exam. 2. Mid left femoral amputation. The stump appears unremarkable. 3. No acute fracture or dislocation left hip. The right hip joint space appears unremarkable. Mild degenerative disc changes lower lumbar spine.
--- OUTSIDE RECORDS SUMMARY | 2023-04-27 13:32 | XMS_ITS | Continuity of Care Document ---
Author Name Unknown Organization [facility] [place] [facility] Address [address] [place] [address]- Care Team Providers Care [employer]cre[employer] Mechanical Name Role Phone Tony Rhodes MD Primary Care Physician [facility]): 01/[facility]/23 - 03/02/23 [facility] [place] Adult [address] [place] [address]- Allergies, Adverse Reactions, Alerts Substance Reaction Severity Status Vioxx Hypertension Mild Active Immunizations Given and Recorded Vaccine Date Status Refusal Reason [id number] bivalent booster vax 03/11/22 Recorded influenza virus vaccine, inactivated 03/11/22 Driss rded influenza virus vaccine, inactivated 02/07/21 Driss rded influenza virus vaccine, inactivated 05/22/18 Give n influenza virus vaccine, inactivated 02/25/17 Driss rded influenza virus vaccine, inactivated 04/05/16 Give n influenza virus vaccine, inactivated 02/27/15 Give n influenza virus vaccine, inactivated 02/04/14 Give n influenza virus vaccine, inactivated 1 02/01/13 Re corded influenza virus vaccine, inactivated 2 02/20/12 Gi hilary influenza virus vaccine, inactivated 3 02/03/12 Re corded influenza virus vaccine, inactivated 4 02/01/09 Gi hilary SARS-CoV-2 (COVID-19) mRNA-1273 vaccine 04/21/21 R ecorded SARS-CoV-2 (COVID-19) mRNA-1273 vaccine 09/29/20 R ecorded SARS-CoV-2 (COVID-19) mRNA-1273 vaccine 09/01/20 R ecorded pneumococcal 23-valent vaccine 07/12/20 Given pneumococcal 23-valent vaccine 07/23/13 Given Influenza Virus Vaccine (oldterm) 03/13/20 Recorde d Influenza Virus Vaccine (oldterm) 03/16/08 Given Influenza Virus Vaccine (oldterm) 04/21/07 Given Influenza Virus Vaccine (oldterm) 5 04/15/06 Given pneumococcal 13-valent vaccine 05/03/19 Given Zostavax (oldterm) 02/19/16 Given tetanus/diphtheria/pertussis, acel(Tdap) 07/13/14 Given FluLaval (oldterm) 6 02/21/10 Given influ virus vac, H1N1, inactive(oldterm) 7 05/09/09 Given tetanus-diphtheria toxoids (Td) 05/12/04 Given Pneumococcal Vacc (oldterm) 05/12/99 Given 1Location History: [facility] 2Admin Note: VIS GIVEN 3Location History: [facility] 4Admin Note: GIVEN BY JOHAN BOWERS BY JUDAH 5Admin Note: GIVEN IN CLINIC [facility] 6Admin Note: [employer] [facility] 7Admin Note: H1N1 Medications acetaminophen 325 mg oral tablet 650 mg, By Mouth, Every 4 hours, PRN, Refills 0, Maintenance, Pain , Mild, 02/25/22 12:43:00 EDT, Partial fill upon patient request if the prescription is for a schedule II opioid drug. Start Date: 02/25/22 Status: Ordered Albuterol (Eqv-Proventil HFA) 90 mcg/inh inhalation aerosol 2 puffs, Inhalation, Every 6 hours, # 8 Gm, 0 Refills, Maintenance, 11/21/22 14:00:00 EDT, [facility], Partial fill upon patient request if the prescription is for a schedule II opioid drug., 170, cm, 11/21/22 13:36:00 EDT, Height, 45.7, kg, 03/0... Start Date: 11/21/22 Status: Ordered aspirin 81 mg oral delayed release tablet 1 tablet = 81 mg, By Mouth, Daily, Maintenance, 09/21/21 16:04:00 EDT Start Date: 09/21/21 Status: Ordered atorvastatin 40 mg oral tablet 1 tablet = 40 mg, By Mouth, Daily, # 90 tablet, 1 Refills, Soft Stop, 11/21/22 14:00:00 EDT, [facility], 170, cm, 11/21/22 13:36:00 EDT, Height, 45.7, kg, 07/12/22 22:04:00 EST, Dry Weight Start Date: 11/21/22 Status: Ordered Chocolate Ensure Chocolate Ensure, See Instructions, # 90 each, Refills 11, Tot. Refills 11, Maintenance, Dx: Underweight (R63.6) # of can per day: 3 HANH: Lifetime HT: 5'7 & WT: 119lbs, 12/19/22 13:30:00 EDT, Supply Start Date: 12/19/22 Status: Ordered Eliquis 5 mg oral tablet 1 tablet = 5 mg, By Mouth, 2 times a day, # 60 tablet, 2 Refills, Maintenance, 09/05/22 13:34:00 EDT, Tablet, [facility], 170, cm, 08/01/22 14:54:00 EDT, Height, 45.7, kg, 07/12/22 22:04:00 EST,Dry Weight Start Date: 09/05/22 Stop Date: 12/04/22 Status: Ordered melatonin 3 mg oral tablet = 9 mg, By Mouth, Daily at bedtime, 0 Refills, Maintenance, 04/19/22 14:03:00 EST, Tablet, Partial fill upon patient request if the prescription is for a schedule II opioid drug. Start Date: 04/19/22 Status: Ordered Metoprolol Succinate ER 25 mg oral tablet, extended release 1 tablet, By Mouth, Daily, # 30 tablet, 5 Refills, Maintenance, 01/21/23 14:01:00 EDT, [facility], 170, cm, 12/02/22 14:04:00 EDT, Height, 45.7, kg, 07/12/22 22:04:00 EST, Dry Weight Start Date: 01/21/23 Status: Ordered Multivit Therapeutic/Minerals Tablet 1 tablet, By Mouth, Daily, 0 Refills, Maintenance, 04/19/22 14:03:00 EST, Tablet, Partial fill uponpatient request if the prescription is for a schedule II opioid drug. Start Date: 04/19/22 Status: Ordered Problem List Condition Confirmation Course Effective Dates Status Health Status Informant Adenomatous polyposis coli 1 Confirmed Active Unilateral AKA Confirmed Active Anemia Confirmed Active Anxiety Confirmed Active Arterial insufficiency 2 Confirmed Active Atrial fibrillation 3 Confirmed Active CABG x 2 - Coronary artery bypass grafts x 2 Confirmed 05/18/09 Active CAD - Coronary artery disease Confirmed 06/25/10 Active Carotid artery stenosis, total occlusion of Left ICA Confirmed Active CVD (cerebrovascular disease) Confirmed Active Cervical spondylosis Confirmed Active 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 Confirmed Active COPD - Chronic obstructive pulmonary disease Confirmed Active CVA - Cerebrovascular accident/TIA w/no residual Confirmed 08/18/09 Active GERD (gastroesophageal reflux disease) Confirmed Active Glaucoma Confirmed Active H/O herpes zoster Confirmed Active Hypercholesterolemia Confirmed Active Hypertension Confirmed Active Insomnia Confirmed Active Low back pain Confirmed Active Pulmonary nodule, right middle Confirmed Active Arm weakness 4 Confirmed Active Old myocardial infarction, NSTEMI Confirmed 07/2013 Active Opiate dependence Confirmed Active PAD (peripheral artery disease) Confirmed Active PVD (peripheral vascular disease) Confirmed Active S/P hernia repair Confirmed Active Seizure disorder Confirmed Active Bilateral Subclavian artery stenosis Confirmed Active Underweight Confirmed Active Vitamin D deficiency Confirmed Active 1colo 2004 polyp, refuses repeat colo 2010 2LUE 3post cabg afib, s/p cva 4LUE Social History Social History Type Response Smoking Status 10 or more cigarette s (1/2 pack or more)/day in last 30 days; Other: 2 PPD; entered on: 11/04/22 Sex Patient Care team information Care Team Personnel Name: Morena Abraham RN Position: [facility] SN RN Member Role: Primary Care Nurse Name: Jena Barron RN Position: [facility] RN Member Role: Primary Care Nurse Name: Faith Cheek RN Position: [facility] RN Member Role: Primary Care Nurse Name: Rodney He RN Position: [facility] RN Member Role: Primary Care Nurse Name: Barbara Snider RN Position: [facility] SN RN Member Role: Primary Care Nurse Name: Ana Maria Gonzalez RN Position: [facility] RN Member Role: Primary Care Nurse Name: Rae Vigil RN Position: [facility] RN Member Role: Primary Care Nurse Name: Johan Montes RN Position: [facility] RN Member Role: Primary Care Nurse Name: Tony Rhodes MD Position: [facility] Physician - Primary Care Member Role: PCP Address: Address: [address] [place] [id number]- Name: Rachel Brown RN Position: [facility] RN Member Role: Primary Care Nurse Name: Lucia Denton RN Position: S RN Member Role: Primary Care Nurse Name: Quin Oliveira RN Position: [facility] RN Member Role: Primary Care Nurse Name: Chelita Hernandez RN Position: [facility] RN Member Role: Primary Care Nurse Name: Lynette Leon RN Position: [facility] RN Member Role: Primary Care Nurse Name: Donald Purcell RN Position: [facility] RN Member Role: Primary Care Nurse Name: Shameka Hicks RN Position: [facility] RN Member Role: Primary Care Nurse Name: Lynette Wooten RN Position: [facility] RN Member Role: Primary Care Nurse Name: Batsheva Herring RN Position: [facility] OB RN Member Role: Primary Care Nurse Name: Roxana Hutchison RN Position: [facility] AMB Nurse Member Role: Primary Care Nurse Name: David Mensah RN Position: [facility] RN Member Role: Primary Care Nurse Name: Mary Mckeon RN Position: [facility] AMB Nurse Member Role: Primary Care Nurse Care Team Related Persons Name: FANY CYR Address: [address] [address] Name: KITTY CYR
--- OUTSIDE RECORDS SUMMARY | 2023-04-27 13:32 | XMS_ITS | Continuity of Care Document ---
Author Name Unknown Organization [facility] Address [address] [place] [address]- Care Team Providers Care Boilermaking Supervisor Name Role Phone Tony Rhodes MD Primary Care Physician [facility] 12[facility]04[facility]22 - 01/08/23 [facility] [address] [place], [place] [address] Referring Physician: Tony Rhodes MD Allergies, Adverse Reactions, Alerts Substance Reaction Severity Status Vioxx Hypertension Mild Active Immunizations Given and Recorded Vaccine Date Status Refusal Reason [id number] bivalent booster vax 03/11/22 Recorded influenza virus [...] (oldterm) 05/12/99 Given 1Location History: [facility] 2Admin Note: VIS GIVEN 3Location History[facility] 4Admin Note: GIVEN BY JOHAN BOWERS BY JUDAH 5Admin Note: GIVEN IN [facility]INIC [facility] 6Admin Note: [employer] [facility] 7Admin Note: H1N1 Medications acetaminophen 325 mg [...] Gm, 0 Refills, Maintenance, 11/21/22 14:00:00 EDT, [facility], Partial fill upon patient request if [...] opioid drug. Start Date: 04/19/22 Status: Ordered Multivit Therapeutic/Minerals Tablet 1 tablet, [...] Team Personnel Name: Morena Abraham RN Position: [facility] SN RN Member Role: Primary Care Nurse Name: Jena Barron RN Position: [facility] RN Member Role: Primary Care Nurse Name: Faith Cheek RN Position: [facility] RN Member Role: Primary Care Nurse Name: Rodney He RN Position: [facility] RN Member Role: Primary Care Nurse Name: Barbara Snider RN Position: [facility] SN RN Member Role: Primary Care Nurse Name: Ana Maria Gonzalez RN Position: [facility] RN Member Role: Primary Care Nurse Name: Rae Vigil RN Position: [facility] RN Member Role: Primary Care Nurse Name: Johan Montes RN Position: [facility] RN Member Role: Primary Care Nurse Name: Tony Rhodes MD Position: [facility] Physician - Primary Care Member Role: PCP Address: Address: [address] [place] [id number]- Name: Rachel Brown RN Position: [facility] RN Member Role: Primary Care Nurse Name: Lucia Denton RN Position: [facility] RN Member Role: Primary Care Nurse Name: Quin Oliveira RN Position: [facility] RN Member Role: Primary Care Nurse Name: Chelita Hernandez RN Position: [facility] RN Member Role: Primary Care Nurse Name: Lynette Leon RN Position: [facility] RN Member Role: Primary Care Nurse Name: Donald Purcell RN Position: [facility] RN Member Role: Primary Care Nurse Name: Shameka Hicks RN Position: [facility] RN Member Role: Primary Care Nurse Name: Lynette Wooten RN Position: [facility] RN Member Role: Primary Care Nurse Name: Batsheva Herring RN Position: [facility] OB RN Member Role: Primary Care Nurse Name: Roxana Hutchison RN Position: [facility] AMB Nurse Member Role: Primary Care Nurse Name: David Mensah RN Position: [facility] RN Member Role: Primary Care Nurse Name: Mary Mckeon RN Position: [facility] AMB Nurse Member Role: Primary Care Nurse Care Team Related Persons Name: FANY CYR Address: [address] [address] Name: KITTY CYR
--- OUTSIDE RECORDS SUMMARY | 2023-04-27 13:32 | XMS_ITS | Continuity of Care Document ---
Author Name Unknown Organization [facility] Address [address] [place] [address]- Care Team Providers Care Exchange Operator Name Role Phone Tony Rhodes MD Primary Care Physician [facility] 01[facility]23 - 02/23/23 [facility] Adult [address] [place] [address]- Attending Physician: Tony Rhodes MD Allergies, Adverse Reactions, Alerts Substance Reaction Severity Status Vioxx Hypertension Mild Active Immunizations Given and Recorded Vaccine Date Status Refusal Reason [id number] bivalent booster vax 03/11/22 Recorded influenza virus [...] Pneumococcal Vacc (oldterm) 05/12/99 Given 1Location History: [facility] 2Admin Note: VIS GIVEN 3[facility] 4Admin Note: GIVEN BY JOHAN BOWERS BY JUDAH 5Admin Note: GIVEN IN [facility] 6Admin Note: [facility] 7Admin Note: H1N1 Medications acetaminophen 325 [...] Gm, 0 Refills, Maintenance, 11/21/22 14:00:00 EDT, [facility], Partial fill upon patient request if [...] cm, 11/21/22 13:36:00 EDT, Height, 45.7, kg, 03/03/23 22:04:00 EST, Dry Weight Start Date: 11/21/22 [...] Active CAD - Coronary artery disease Confirmed 2/14/11 Active Carotid artery stenosis, total occlusion of [...] Team Personnel Name: Morena Abraham RN Position: [facility] SN RN Member Role: Primary Care Nurse Name: Jena Barron RN Position: [facility] RN Member Role: Primary Care Nurse Name: Faith Cheek RN Position: [facility] RN Member Role: Primary Care Nurse Name: Rodney He RN Position: [facility] RN Member Role: Primary Care Nurse Name: Barbara Snider RN Position: [facility] SN RN Member Role: Primary Care Nurse Name: Ana Maria Gonzalez RN Position: [facility] RN Member Role: Primary Care Nurse Name: Rae Vigil RN Position: [facility] RN Member Role: Primary Care Nurse Name: Johan Montes RN Position: [facility] RN Member Role: Primary Care Nurse Name: Tony Rhodes MD Position: [facility] Physician - Primary Care Member Role: PCP Address: Address: [address] [place] [address]- [place] Name: Rachel Brown RN Position: [facility] RN Member Role: Primary Care Nurse Name: Lucia Denton RN Position: [facility] RN Member Role: Primary Care Nurse Name: Quin Oliveira RN Position: [facility] RN Member Role: Primary Care Nurse Name: Chelita Hernandez RN Position: [facility] RN Member Role: Primary Care Nurse Name: Lynette Leon RN Position: [facility] RN Member Role: Primary Care Nurse Name: Donald Purcell RN Position: [facility] RN Member Role: Primary Care Nurse Name: Shameka Hicks RN Position: [facility] RN Member Role: Primary Care Nurse Name: Lynette Wooten RN Position: [facility] RN Member Role: Primary Care Nurse Name: Batsheva Herring RN Position: [facility] OB RN Member Role: Primary Care Nurse Name: Roxana Hutchison RN Position: [facility] AMB Nurse Member Role: Primary Care Nurse Name: David Mensah RN Position: [facility] RN Member Role: Primary Care Nurse Name: Mary Mckeon RN Position: [facility] AMB Nurse Member Role: Primary Care Nurse Care Team Related Persons Name: FANY CYR Address: [address] [address] Name: KITTY CYR
--- OUTSIDE RECORDS SUMMARY | 2023-04-27 13:32 | XMS_ITS | Continuity of Care Document ---
Author Name Unknown Organization [facility] [place] Address [address] [place] [address]- Care Team Providers Care Smeller Name Role Phone Tony Rhodes MD Primary Care Physician [phone] [facility]counter [facility] Date(s): 04/30/22 - 06/02/22 [facility] [address] [place] [address]- Attending Physician: Tony Rhodes MD Allergies, Adverse Reactions, Alerts Substance Reaction Severity Status Vioxx Hypertension Mild Active Immunizations Given and Recorded Vaccine Date Status Refusal Reason influenza virus vaccine, inactivated 03/11/22 Driss rded [...] Pneumococcal Vacc (oldterm) 05/12/99 Given 1Location History: [facility] 2Admin Note: VIS GIVEN 3Location History: [facility] 4Admin Note: GIVEN BY ANDIE BOWERS BY JUDAH 5Admin Note: GIVEN IN CLINIC SHAM 6Admin Note: [facility] 7Admin Note: H1N1 Medications acetaminophen 325 mg oral tablet 650 mg, By Mouth, Every 4 hours, PRN, Refills 0, Maintenance, Pain , Mild, 02/25/22 12:43:00 EDT, Partial fill upon patient request if the prescription is for a schedule II opioid drug. Start Date: 02/25/22 Status: Ordered albuterol 90 mcg/inh inhalation powder 2 puffs, Inhalation, Every 4 hours, PRN as needed, # 1 each, 5 Refills, Maintenance, 07/29/19 13:25:00 EDT, Powder, [facility], 167, cm, 04/30/19 15:55:00 EST, Height, 70.2, kg, 07/31/18 6:33:00EDT, Dry Weight Start Date: 07/29/19 Status: Ordered amiodarone 200 mg oral tablet 2, tablet, By Mouth, 2 times a day, # 120 tablet, Refills 6, Maintenance, 02/18/22 9:48:00 EDT, Route to Pharmacy Electronically, [facility], 172.7, cm, 01/18/22 14:53:00 EDT, Height, 68.2, kg, 09/21/21 17:43:00 EDT, Dry Weight Start Date: 02/18/22 Status: Ordered aspirin 81 mg oral delayed release tablet 1 tablet = 81 mg, By Mouth, Daily, Maintenance, 09/21/21 16:04:00 EDT Start Date: 09/21/21 Status: Ordered atorvastatin 40 mg oral tablet See Instructions, TAKE 1 TABLET BY MOUTH DAILY, # 90 tablet, 3 Refills, Soft Stop, 09/05/21 15:18:00 EDT, [facility], 167, cm, 08/20/21 12:32:00 EDT, Height Start Date: 09/05/21 Status: Ordered bisacodyl 10 mg rectal suppository 1 supp = 10 mg, Rectally, Daily, PRN Constipation, 0 Refills, Maintenance, 04/19/22 14:02:00 EST, Suppository, Partial fill upon patient request if the prescription is for a schedule II opioid drug. Start Date: 04/19/22 Status: Ordered cloNIDine 0.1 mg oral tablet 1, tablet, By Mouth, 2 times a day, # 60 tablet, Refills 5, Maintenance, 02/18/22 9:47:00 EDT, Route to Pharmacy Electronically, [facility], 172.7, cm, 01/18/22 14:53:00 EDT, Height, 68.2, kg, 09/21/21 17:43:00 EDT, Dry Weight Start Date: 02/18/22 Status: Ordered Complete blood count with differential and Basic metabolic panel in 1 week from 12/19/2021 Complete blood count with differential and Basic metabolic panel in 1 week from 12/19/2021, See Instructions, # 1 each, Refills 0, Tot. Refills 0, Maintenance, Complete blood count with differential and Basic metabolic panel in 1 week from 12/19/2021, 0... Start Date: 12/19/21 Status: Ordered Docusate Sodium Capsule 100 mg, 1, capsule, By Mouth, 2 times a day, Refills 0, Maintenance, 04/19/22 14:02:00 EST, Partialfill upon patient request if the prescription is for a schedule II opioid drug. Start Date: 04/19/22 Status: Ordered Eliquis 5 mg oral tablet 1 tablet = 5 mg, By Mouth, 2 times a day, # 60 tablet, 0 Refills, Maintenance, 02/25/22 12:41:00 EDT, Tablet, [facility], 168, cm, 02/25/22 12:11:00 EDT, Height, 57.7, kg, 02/22/22 23:09:00 EDT,Dry Weight Start Date: 02/25/22 Stop Date: 03/27/22 Status: Ordered folic acid 1 mg oral tablet 1 mg, 1, tablet, By Mouth, Daily, # 30 tablet, Refills 0, Tot. Refills 0, Maintenance, 02/25/22 12:41:00 EDT, Route to Pharmacy Electronically, [facility], Partial fill upon patient request if the prescription is for a schedule II opioid drug., 1... Start Date: 02/25/22 Stop Date: 03/27/22 Status: Ordered gabapentin 300 mg oral capsule 300 mg, 1, capsule, By Mouth, 3 times a day, # 90 capsule, Refills 0, Tot. Refills 0, Maintenance, 04/19/22 14:03:00 EST, Print Requisition, Partial fill upon patient request if the prescription is for a schedule II opioid drug. Start Date: 04/19/22 Status: Ordered Keppra 500 mg oral tablet 1 tablet = 500 mg, By Mouth, 2 times a day, # 60 tablet, 6 Refills, Maintenance, 03/01/21 14:03:00 EDT, Tablet, [facility], Partial fill upon patient request if the prescription is for a schedule II opioid drug., 167, cm, 03/01/21 13:34:00 EDT, H... Start Date: 03/01/21 Status: Ordered lidocaine 5% topical film Topically, Daily, 0 Refills, Maintenance, 04/19/22 14:03:00 EST, Patch, Partial fill upon patient request if the prescription is for a schedule II opioid drug. Start Date: 04/19/22 Status: Ordered melatonin 3 mg oral tablet = 9 mg, By Mouth, Daily at bedtime, 0 Refills, Maintenance, 04/19/22 14:03:00 EST, Tablet, Partial fill upon patient request if the prescription is for a schedule II opioid drug. Start Date: 04/19/22 Status: Ordered Metoprolol Succinate ER 25 mg oral tablet, extended release 1 tablet, By Mouth, Daily, # 30 tablet, 2 Refills, Maintenance, 02/18/22 9:48:00 EDT, [facility], 172.7, cm, 01/18/22 14:53:00 EDT, Height, 68.2, kg, 09/21/21 17:43:00 EDT, Dry Weight Start Date: 02/18/22 Status: Ordered Multivit Therapeutic/Minerals Tablet 1 tablet, By Mouth, Daily, 0 Refills, Maintenance, 04/19/22 14:03:00 EST, Tablet, Partial fill uponpatient request if the prescription is for a schedule II opioid drug. Start Date: 04/19/22 Status: Ordered Nebulizer/Compressor See Instructions, # 1 each, Refills 0, Tot. Refills 0, Maintenance, to use every 6hrs prn copd exacerbation, 01/12/16 9:00:57, Compound Start Date: 01/12/16 Status: Ordered nitroglycerin 0.4 mg sublingual tablet See Instructions, TAKE 1 TABLET UNDER THE TONGUE EVERY 5 MINUTES NEEDED FOR CHEST PAIN AFTER 3 DOSES, CALL 911, # 25 tablet, 0 Refills, 10/18/20 16:42:00 EDT, [facility], 167, cm, 08/21/20 14:59:00 EDT, Height Start Date: 10/18/20 Status: Ordered omeprazole 20 mg oral delayed release tablet 1 tablet = 20 mg, By Mouth, Daily in AM, Maintenance, 09/21/21 16:06:00 EDT Start Date: 09/21/21 Status: Ordered pentoxifylline 400 mg oral tablet, extended release 1, tablet, By Mouth, 3 times a day, # 90 tablet, Refills 11, Route to Pharmacy Electronically, [facility], 167, cm, 08/20/21 12:32:00 EDT, Height Start Date: 09/05/21 Status: Ordered Remove Patch 1 each, Topically, Daily, 0 Refills, Maintenance, Patch Start Date: 02/25/22 Status: Ordered Senna 8.6 mg oral tablet 8.6 mg, 1, tablet, By Mouth, Daily, Refills 0, Maintenance, 04/19/22 14:03:00 EST, Tablet, Partial fill upon patient request if the prescription is for a schedule II opioid drug. Start Date: 04/19/22 Status: Ordered thiamine 100 mg oral tablet 100 mg, 1, tablet, By Mouth, Daily, Refills 0, Maintenance, 04/19/22 14:03:00 EST, Partial fill upon patient request if the prescription is for a schedule II opioid drug. Start Date: 04/19/22 Status: Ordered Vit B Complex/Vit C Capsule 1, tablet, By Mouth, Daily, Maintenance, 09/21/21 16:13:00 EDT Start Date: 09/21/21 Status: Ordered Vitamin D3 10,000 intl units oral capsule 1 capsule = 250 mcg, By Mouth, Every week, # 6 capsule, 0 Refills, Maintenance, 12/19/21 12:19:00 EDT, Capsule, [facility], Partial fill upon patient request if the prescription is for a schedule II opioid drug., 172.7, cm, 10/25/21 8:10:00 EDT,... Start Date: 12/19/21 Stop Date: 01/30/22 Status: Ordered Problem List Condition Confirmation Course Effective Dates Status Health Status Informant Adenomatous polyposis coli 1 Confirmed Active Anemia Confirmed Active Anxiety Confirmed [...] Active Hypertension Confirmed Active Insomnia Confirmed Active Long-term (current) use of anticoagulants, INR goal 2.0-3.0 Confirmed Active Low back pain Confirmed Active Pulmonary nodule, right middle Confirmed Active Arm weakness 4 Confirmed Active Old myocardial infarction, NSTEMI Confirmed 07/2013 Active Opiate dependence Confirmed Active Great toe pain Confirmed Active PAD (peripheral artery disease) Confirmed Active PVD (peripheral vascular disease) Confirmed Active S/P hernia repair Confirmed Active Seizure disorder Confirmed Active Bilateral Subclavian artery stenosis Confirmed Active Underweight Confirmed Active Vitamin D deficiency Confirmed Active Wrist pain Confirmed Active 1colo 2004 polyp, refuses repeat colo 2010 2LUE 3post cabg afib, s/p cva 4LUE Social History Social History Type Response Smoking Status Current every day sm oker; Other: 1-1/2 packs of cigarettes daily; entered on: 10/23/17 Sex Patient Care team information Care Team Personnel Name: Ana Maria Cruz RN Position: [facility] RN Member Role: Primary Care Nurse Name: Morena Abraham RN Position: [facility] RN Member Role: Primary Care Nurse Name: Jena Barron RN Position: [facility] RN Member Role: Primary Care Nurse Name: Ana Maria Gonzalez RN Position: [facility] RN Member Role: Primary Care Nurse Name: Rae Vigil RN Position: [facility] ED RN W/OE and Tasks Member Role: Primary Care Nurse Name: Tony Rhodes MD Position: [facility] Primary Care Physician Member Role: PCP Address: Address: [address] [place] [id number] Name: Rachel Brown RN Position: [facility] RN Member Role: Primary Care Nurse Name: Lucia Denton RN Position: [facility] RN Member Role: Primary Care Nurse Name: Chelita Hernandez RN Position: [facility] RN Member Role: Primary Care Nurse Name: Elizabeth Taylor Position: [facility] RN Member Role: Primary Care Nurse Name: Batsheva Herring RN Position: [facility] AMB Nurse Member Role: Primary Care Nurse Name: Roxana Hutchison RN Position: [facility] RN Member Role: Primary Care Nurse Name: Mary Mckeon RN Position: [facility] AMB Nurse Member Role: Primary Care Nurse Care Team Related Persons Name: FANY CYR Address: home [address] [place] [address] Name: KITTY [place]YR Address: [place] [address]
--- OUTSIDE RECORDS SUMMARY | 2023-04-27 13:32 | XMS_ITS | Continuity of Care Document ---
Author Name Unknown Organization [facility] Address [address] [place] [address]- Care Team Providers Care Registered Dental Assistant Name Role Phone Tony Rhodes MD Primary Care Physician [facility] Date[facility]s): 05/21[facility]22 - 06/20/22 [facility] [address] [place] [address]- Allergies, Adverse Reactions, Alerts Substance Reaction Severity [...] Pneumococcal Vacc (oldterm) 05/12/99 Given 1Location History: [facility] 2Admin Note: VIS GIVEN 3Location History: [facility] 4Admin Note: GIVEN BY ANDIE DOC BY JUDAH 5Admin Note: GIVEN IN CLINIC SHAM 6Admin Note: [employer] [facility] 7Admin Note: H1N1 Medications acetaminophen 325 mg [...] 5 Refills, Maintenance, 07/29/19 13:25:00 EDT, Powder, [facility], 167, cm, 04/30/19 15:55:00 EST, Height, 70.2, kg, 07/31/18 6:33:00EDT, Dry Weight Start Date: 07/29/19 Status: Ordered amiodarone 200 mg oral tablet 2, tablet, By Mouth, 2 times a day, # 120 tablet, Refills 6, Maintenance, 02/18/22 9:48:00 EDT, Route to Pharmacy Electronically, [facility], 172.7, cm, 01/18/22 14:53:00 EDT, Height, [...] 3 Refills, Soft Stop, 09/05/21 15:18:00 EDT, [facility], 167, cm, 08/20/21 12:32:00 EDT, Height Start Date: 09/05/21 Status: Ordered Augmentin 875 mg-125 mg oral tablet 1 tablet, By Mouth, Every 12 hours, for 14 days, # 28 tablet, 0 Refills, Acute 06/25/22 13:32:00 EST, 06/11/22 13:32:00 EST, Tablet, [facility], Partial fill upon patient request if the prescription is for a schedule II opioid drug., 170, cm, ... Start Date: 06/11/22 Stop Date: 06/25/22 Status: Ordered bisacodyl 10 mg rectal suppository [...] 02/18/22 9:47:00 EDT, Route to Pharmacy Electronically, [facility], 172.7, cm, 01/18/22 14:53:00 EDT, Height, [...] 0 Refills, Maintenance, 02/25/22 12:41:00 EDT, Tablet, [facility], 168, cm, 02/25/22 12:11:00 EDT, Height, [...] tablet, 2 Refills, Maintenance, 02/18/22 9:48:00 EDT, [facility], 172.7, cm, 01/18/22 14:53:00 EDT, Height, [...] 25 tablet, 0 Refills, 10/18/20 16:42:00 EDT, [facility], 167, cm, 08/21/20 14:59:00 EDT, Height Start Date: 10/18/20 Status: Ordered omeprazole 20 mg oral delayed release tablet 1 tablet = 20 mg, By Mouth, Daily in AM, Maintenance, 09/21/21 16:06:00 EDT Start Date: 09/21/21 Status: Ordered pentoxifylline 400 mg oral tablet, extended release 1, tablet, By Mouth, 3 times a day, # 90 tablet, Refills 11, Route to Pharmacy Electronically, [facility], 167, cm, 08/20/21 12:32:00 EDT, Height [...] Active Bilateral Subclavian artery stenosis Confirmed Active Vitamin D deficiency Confirmed Active Wrist pain Confirmed Active 1colo 2004 polyp, refuses repeat colo 2010 2LUE 3post cabg afib, s/p cva 4LUE Social History Social History Type Response Smoking Status Current every day sm oker; Other: 1-1/2 packs of cigarettes daily; entered on: 10/23/17 Sex Patient Care team information Care Team Personnel Name: Ana Maria Cruz RN Position: S RN Member Role: Primary Care Nurse Name: Morena Abraham RN Position: S RN Member Role: Primary Care Nurse Name: Jena Barron RN Position: S RN Member Role: Primary Care Nurse Name: Ana Maria Gonzalez RN Position: S RN Member Role: Primary Care Nurse Name: Rae Vigil RN Position: [facility] RN Member Role: Primary Care Nurse Name: Tony Rhodes MD Position: [facility] Primary Care Physician Member Role: PCP Address: Address: [address] [place] [address] Name: Rachel Brown RN Position: [facility] RN Member Role: Primary Care Nurse Name: Lucia D[place] RN Position: [facility] RN Member Role: Primary Care Nurse Name: Chelita Hernandez RN Position: [facility] RN Member Role: Primary Care Nurse Name: Elizabeth Taylor Position: [facility] RN Member Role: Primary Care Nurse Name: Batsheva Herring RN Position: [facility] AMB Nurse Member Role: Primary Care Nurse Name: Roxana Hutchison RN Position: [facility] RN Member Role: Primary Care Nurse Name: Mary Mckeon RN Position: [facility] AMB Nurse Member Role: Primary Care Nurse Care Team Related Persons Name: FAYN CYR Address: home [address] [place] [address] Name: KITTY CYR Address: [place] [address]
--- OUTSIDE RECORDS SUMMARY | 2023-04-27 13:32 | XMS_ITS | Continuity of Care Document ---
Author Name Unknown Organization [facility] ter Address [address] [place] [id number] Care Team Providers Care Agricultural Engineering Technicians Name Role Phone Meagan DILL, Tony Gaines Primary Care Physician [phone] Encounter [facility] Date(s): 07/13/22 - 07/21/[address] [address] Discharge Disposition: A-D/C AMA Attending Physician: Genesis DILL, Courtney Admitting Physician: Taty DILL, Teofilo Christianson Referring Physician: Not on Staff, Referring MD Allergies, Adverse Reactions, Alerts Substance Reaction Severity Status Vioxx Hypertension Mild Active Immunizations Given and Recorded Vaccine Date Status Refusal Reason [id number] bivalent booster vax 03/11/22 Recorded influenza virus [...] Pneumococcal Vacc (oldterm) 05/12/99 Given 1Location History: [facility] [place] 2Admin Note: VIS GIVEN 3Location History: [facility] [place] 4Admin Note: GIVEN BY JOHAN BOWERS BY JUDAH 5Admin Note: GIVEN IN [facility] 6Admin Note: [facility] 7Admin Note: H1N1 Medications acetaminophen 325 mg [...] 5 Refills, Maintenance, 07/29/19 13:25:00 EDT, Powder, [facility], 167, cm, 04/30/19 15:55:00 EST, Height, 70.2, kg, 07/31/18 6:33:00EDT, Dry Weight Start Date: 07/29/19 Status: Ordered aspirin 81 mg oral delayed release tablet 1 tablet = 81 mg, By Mouth, Daily, Maintenance, 09/21/21 16:04:00 EDT Start Date: 09/21/21 Status: Ordered atorvastatin 40 mg oral tablet See Instructions, TAKE 1 TABLET BY MOUTH DAILY, # 90 tablet, 3 Refills, Soft Stop, 09/05/21 15:18:00 EDT, [facility], 167, cm, 08/20/21 12:32:00 EDT, Height Start Date: 09/05/21 Status: Ordered Colace sodium 100 mg oral capsule 100 mg, 1, capsule, By Mouth, 2 times a day, # 60 capsule, Refills 0, Tot. Refills 0, Maintenance, 06/24/22 16:00:00 EST, Route to Pharmacy Electronically, [facility], Partial fill upon patient request if the prescription is for a schedule II opi... Start Date: 06/24/22 Status: Ordered collagenase topical 250 u/gm ointment 1 application, Topically, Daily, apply moist dressing over the santyl, triad cream on surrouding skin and DSD over all, # 90 Gm, 0 Refills, Maintenance, 07/08/22 13:04:00 EST, Ointment, [facility], Partial fill upon patient request if th... Start Date: 07/08/22 Status: Ordered Eliquis 5 mg oral tablet 1 tablet = 5 mg, By Mouth, 2 times a day, # 60 tablet, 0 Refills, Maintenance, 02/25/22 12:41:00 EDT, Tablet, [facility], 168, cm, 02/25/22 12:11:00 EDT, Height, 57.7, kg, 02/22/22 23:09:00 EDT,Dry Weight Start Date: 02/25/22 Stop Date: 03/27/22 Status: Ordered Keppra 500 mg oral tablet 1 tablet = 500 mg, By Mouth, 2 times a day, # 60 tablet, 6 Refills, Maintenance, 03/01/21 14:03:00 EDT, Tablet, [facility], Partial fill upon patient request if [...] tablet, 2 Refills, Maintenance, 02/18/22 9:48:00 EDT, [facility], 172.7, cm, 01/18/22 14:53:00 EDT, Height, 68.2, kg, 09/21/21 17:43:00 EDT, Dry Weight Start Date: 02/18/22 Status: Ordered MiraLax oral powder for reconstitution = 17 Gm, By Mouth, Daily, dissolve in water before taking, # 255 Gm, 0 Refills, Maintenance, 07/08/22 9:59:00 EST, REC Powder, [facility], Partial fill upon patient request if the prescription is for a schedule II opioid drug., 17 Gm By... Start Date: 07/08/22 Status: Ordered Multivit Therapeutic/Minerals Tablet 1 tablet, By Mouth, Daily, 0 Refills, Maintenance, 04/19/22 14:03:00 EST, Tablet, Partial fill uponpatient request if the prescription is for a schedule II opioid drug. Start Date: 04/19/22 Status: Ordered Nutritional Supplements Ensure, By Mouth, 3 times a day, # 90 each, Maintenance, 07/08/22 13:08:00 EST, Supply, 170, cm, 06/24/22 15:13:00 EST, Height, 47.8, kg, 04/18/22 14:06:00 EST, Dry Weight Start Date: 07/08/22 Status: Ordered omeprazole 20 mg oral delayed release tablet 1 tablet = 20 mg, By Mouth, Daily in AM, Maintenance, 09/21/21 16:06:00 EDT Start Date: 09/21/21 Status: Ordered oxyCODONE 5 mg oral tablet 5 mg, 1, tablet, By Mouth, Every 6 hours, PRN, mass pat reviewed take colace, # 20 tablet, Refills 0, Tot. Refills 0, Maintenance, as needed for pain, 07/08/22 9:58:00 EST, Route to Pharmacy Electronically, [facility], Partial fill upon... Start Date: 07/08/22 Status: Ordered pentoxifylline 400 mg oral tablet, extended release 1, tablet, By Mouth, 3 times a day, # 90 tablet, Refills 11, Route to Pharmacy Electronically, [facility], 167, cm, 08/20/21 12:32:00 EDT, Height Start Date: 09/05/21 Status: Ordered Percocet-5/325 325 mg-5 mg oral tablet 2 tablet, Tablet, By Mouth, Every 4 hours, PRN for Pain , Moderate, Routine, 07/18/22 11:06:00 EST Start Date: 07/18/22 Stop Date: 07/22/22 Status: Discontinued Vitamin D3 10,000 intl units oral capsule 1 capsule = 250 mcg, By Mouth, Every week, # 6 capsule, 0 Refills, Maintenance, 12/19/21 12:19:00 EDT, Capsule, [facility], Partial fill upon patient request if [...] deficiency Confirmed Active Wrist pain Confirmed Active 1c 2005 polyp, refuses repeat colo 2011 2LUE 3post cabg afib, s/p cva 4LUE Vital Signs Most recent to oldest [Reference Range]: 1 2 3 Height 170 cm (07/21/22 5:55 AM) 170 cm (07/20/22 5:24 AM) 170 cm (07/19/22 8:39 PM) Weight 47.2 kg (07/14/22 11:18 AM) 45.7 kg (07/12/22 10:04 PM) 45.7 kg (07/12/22 10:00 PM) Oxygen Saturation [94-100 %] 96 % (07/21/22 4:00 PM) 97 % (07/21/22 11:00 AM) 93 % *L* (07/21/22 5:55 AM) Pulse Rate [55-90 bpm] 60 bpm (07/21/22 4:00 PM) 71 bpm (07/21/22 11:00 AM) 63 bpm (07/21/22 5:55 AM) Body Mass Index [18.5-24.99 kg/m2] 16.33 kg/m2 *L* (07/14/22 11:18 AM) 18.31 kg/m2 *L* (07/12/22 10:04 PM) 19.63 kg/m2 (07/12/22 12:46 PM) Blood Pressure [90-138/55-84 mm Hg] 101/52mm Hg (07/21/22 4:00 PM) 108/45mm Hg (07/21/22 11:00 AM) 106/69mm Hg (07/21/22 5:55 AM) Respiratory Rate [16-30 br/min] 18 br/min (07/21/22 4:00 PM) 20 br/min (07/21/22 2:03 PM) 18 br/min (07/21/22 11:00 AM) Temperature [96.8-100.4 DegF] 98.0 DegF (07/21/22 4:00 PM) 97.7 DegF (07/21/22 11:00 AM) 97.6 DegF (07/21/22 5:55 AM) Liters per Minute 2 L/min (07/12/22 8:02 PM) 2 L/min (07/12/22 7:54 PM) 2 L/min (07/12/22 7:51 PM) Mode of Delivery (Oxygen) Room air (07/21/22 4:00 PM) Room air (07/21/22 11:00 AM) Room air (07/21/22 5:55 AM) Blood pressure sites Arm, right (07/21/22 4:00 PM) Arm, right (07/21/22 11:00 AM) Arm, right (07/21/22 5:55 AM) Temperature Route Oral (07/21/22 4:00 PM) Oral (07/21/22 11:00 AM) Oral (07/21/22 5:55 AM) Dry Weight 45.7 kg (07/12/22 10:04 PM) 49 kg (07/12/22 12:46 PM) 49 kg (07/12/22 7:05 AM) Weight Obtained Via Bed scale (07/14/22 11:18 AM) Bed scale (07/12/22 10:04 PM) Social History Social History Type Response Smoking Status Current every day sm [place]; Other: 1-1/2 packs of cigarettes daily; entered on: 10/23/17 Sex Admission evaluation note * Samanta Mooney MD: MODIFY, PERFORM Event Display: Admission Note Authored Date: Patient: ??PHAN CYR ? Age:??67 Years?Sex:??Male?:??1955?? Chief Complaint/Reason for Consultation VNA called forf low O2, when EMS was leaving the house told that he took 1 bag of heroin, in rout- O2, RR and end tidal dropped, II.5 mg of narcane given. RR, O2 and end tidal came back to normal. History of Present Illness Patient is a 67 years old ??male with history of ??CAD s/p CABG, A-fib, opiate use disorder, epilepsy, HTN, PAD s/p left AKA (04/13/2022) with extensive vascular history??recently was admitted and??discharged 07/09??for management of sacral osteomyelitis came this time to ED for Opioid overdose and was found to have no capacity. Patient overdosed with heroin that reportedly his 's states he took approximately 1 bag. ??Accordingly to the EMS report, oxygen and respiratory rate as well as end-tidal all dropped, and he was given Narcan with improvement in his vital signs. ??Patient adamantly denies that he took any opioids, however review of chart also shows that he has previously had issues with substance abuse 15+ years ago. ??Denies any recent fevers, chills, chest pain or shortness of breath at this time. ??Adamantly wanted to go home. Later he admitted to ED physicians that He took 1 bag and that was the first time he took in many years, patient has a history of struggling with addiction as noted above. Social work was involved and has filed complain for opioid abuse and elder abuse, as patient had access to heroin at home. Physician saw the patient at bedside and tried to assess capacity , he was very uncooperative but was found to have no capacity at that time. ?? At the time of my assessment patient denied any complain at all, she stated that he does not know why he was sent to the hospital. he wants to go home , was not able to answer appropriately and accused doctors are attempting to kill him Patient will be admitted as it is unsafe for him to go and needs social work follow-up Review of Systems All systems were reviewed and found to be negative except for the ones mentioned in HPI. Objective Vital Signs?? Temperature: 98.1 DegF (07/11/22 23:34:00) Temperature Route: Oral (07/11/22 23:34:00) Pulse Rate: 72 bpm (07/12/22 07:05:00) Respiratory Rate: 16 br/min (07/12/22 07:05:00) Systolic Blood Pressure: 102 mm Hg (07/12/22 07:05:00) Diastolic Blood Pressure: 58 mm Hg (07/12/22 07:05:00) Blood pressure sites: Arm, right (07/12/22 07:05:00) Mean Arterial Pressure: 73 mm Hg (07/12/22 07:05:00) Pulse Pressure: 44 mm Hg (07/12/22 07:05:00) Oxygen Saturation: 100 % (07/12/22 06:01:00) Liters per Minute: 4 L/min (07/12/22 06:01:00) Mode of Delivery (Oxygen): Nasal cannula (07/12/22 06:01:00) End Tidal CO2: 26 mm Hg (07/11/22 23:34:00) Early Warning Score: 0 (07/12/22 07:07:43) Temperature, Opiate Withdrawal: 98.2 DegF (07/11/22 20:21:00) Temperature Route, Opiate Withdrawal: Oral (07/11/22 20:21:00) Pulse Rate, Opiate Withdrawal: 80 bpm (07/11/22 20:21:00) Respiratory Rate, Opiate Withdrawal: 22 br/min (07/11/22 20:21:00) Systolic BP, Opiate Withdrawal: 122 mm Hg (07/11/22 20:21:00) Diastolic BP, Opiate Withdrawal: 58 mm Hg (07/11/22 20:21:00) ? Intake/Output? No Data Available ? Physical Exam General: Lying comfortably in bed, no evident distress HEENT: Normocephalic, atraumatic Eyes: Not icteric, EOMI, PERRLA Cardiac: S1 + S2 + 0, no murmurs heard Respiratory: CTA, No wheezes, Rales or crackles heard Abdomen: soft, nondistended, nontender Extremities: Left AKA, right hip with wound VAC in place, no signs of erythema or exudate present or surrounding skin changes.?? Musculoskeletal: No swelling or deformity noted Neurological: AO X??2 , cranial nerves grossly normal?? Psychiatric: Mood and affect normal, speech normal ?? Assessment/Plan Diagnoses ?? Patient is a 67 years old ??male with history of ??CAD s/p CABG, A-fib, opiate use disorder, epilepsy, HTN, PAD s/p left AKA (04/13/2022) with extensive vascular history??recently was admitted and??discharged 07/09??for management of sacral osteomyelitis came this time to ED for Opioid overdose and was found to have no capacity. ?? Opioid overdose: [facility]NA called EMS for low O2, when EMS was leaving the house for the hospital ?? told that he took 1 bag of heroin, en route- O2, RR and end tidal dropped, 5mg of IV Narcan given. RR, O2 and end tidal came back to normal.?? was found to be without capacity called Psych, has no Capacity social work on??board? Urinary retention: Patient had 600 mL of urine retained UA sent with culture on hold Did straight cath. ?? Ischial and sacral osteomyelitis last admission S/P Wound VAC??placed on 07/02/2022, ?? Underwent antegrade angiography of the right lower extremity, angioplasty of the popliteal artery ,debridement of right lower extremity pressure wounds on 07/05. continue Tylenol, Dilaudid. Continue trimethoprim/sulfamethoxazole 2 DS PO BID and levofloxacin 750mg PO daily??, last day 07/15/22. ?? Wound Care Wound care: L AKA -??WTD packing to wound daily, WTD dsg to medial wounds BID; cover with DSD, wound vac change 3x/week , last changed 07/10 Wound care: R heel - aquacel Ag BID; cover with Mepilex Wound care (right groin) - DSD wound care to bilateral ischial wounds--->daily DSD to left ischium, daily collagenase to area and DSD to Right ischium ?? A-fib: Rate controlled, Eliquis ?? CAD: Continue aspirin, statin ?? Seizure disorder: Keppra ?? Diet: Regular ?? DVT prophylaxis:?? Apixaban ?? CODE STATUS: Full code ?Order Date/Time ??Order Action ??Order Name ??Order Detail ??07/12/2022 08:14 ??Modify ??Atorvastatin 40 mg Tablet ??40 mg, By Mouth, Daily ??07/12/2022 08:14 ??Modify ??Metoprolol 25 mg XL Tablet ??25 mg, By Mouth, Daily ??07/12/2022 08:11 ??Order ??Collagenase Topical Oint (30 Gm) ??1 application, Topically, Daily ??07/12/2022 07:53 ??Order ??Pantoprazole 40 mg EC Tablet ??40 mg, By Mouth, Daily ??07/12/2022 07:52 ??Order ??Sulfamethoxazole 800 mg/Trimethoprim 160 mg Tablet ??1 tablet, By Mouth, 2 times a day ??07/12/2022 07:52 ??Order ??Metoprolol 25 mg XL Tablet ??25 mg, By Mouth, Daily ??07/12/2022 07:52 ??Discontinue ??Melatonin 3 mg Tablet ??3 mg, By Mouth, Daily at bedtime, PRN: Insomnia ??07/12/2022 07:52 ??Order ??Melatonin 3 mg Tablet ??9 mg, By Mouth, Daily at bedtime ??07/12/2022 07:51 ??Order ??Levofloxacin 750 mg Tablet ??750 mg, tablet, By Mouth, Every 48 hours ??07/12/2022 07:51 ??Order ??Keppra 500mg Tablet ??500 mg, tablet, By Mouth, 2 times a day ??07/12/2022 07:43 ??Order ??Vitamin D 1000 IU Tablet ??1,000 International_Units, By Mouth, Daily ??07/12/2022 07:40 ??Order ??Atorvastatin 40 mg Tablet ??40 mg, By Mouth, Daily ??07/12/2022 07:40 ??Order ??Aspirin 81 mg EC Tablet ??81 mg, tablet, By Mouth, Daily ??07/12/2022 07:40 ??Order ??Apixaban 5 mg Tablet ??5 mg, tablet, By Mouth, 2 times a day ??07/12/2022 07:40 ??Order ??Albuterol 90mcg/Inhalation Inhaler HFA ??180 mcg, 2 puffs, Inhalation, Every 4 hours, PRN: Wheezing/Shortness of Breath ??07/12/2022 07:32 ??Order ??Change Attending, /DO ??Vinicio DILL Samanta, 07/12/22 7:32:00 EST ??07/12/2022 07:32 ??Discontinue ??Covering Physician/TYLER Beeper ??Pager Number: [phone] until assigned, 07/11/22 20:28:00 EST ? Histories Past Medical History: ?? Adenomatous polyposis coli Anemia Anxiety Arm weakness Arterial insufficiency Atrial fibrillation Bilateral Subclavian artery stenosis CABG x 2 - Coronary artery bypass grafts x 2 CAD - Coronary artery disease Carotid artery stenosis, total occlusion of Left ICA Cervical spondylosis COPD - Chronic obstructive pulmonary disease CVA - Cerebrovascular accident/TIA w/no residual CVD (cerebrovascular disease) GERD (gastroesophageal reflux disease) Glaucoma Great toe pain H/O herpes zoster Hypercholesterolemia Hypertension Insomnia Long-term (current) use of anticoagulants, INR goal 2.0-3.0 Low back pain Old myocardial infarction, NSTEMI Opiate dependence 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 Past Surgical History Left common femoral to left axillary bypass graft using 8-mm ring Propaten [place]- [place] graft.: 09/04/16 Coronary bypass grafting x2 with LEE to LAD and radial to obtuse marginal coronary artery and epiaortic probing of ascending aorta and placement of right pleural thoracostomy tube for pneumothorax.:05/18/09 Cardiac catheterization: 04/19/09 Colonoscopy: 07/2005 Colonoscopy polypectomy: 05/2005 Hernia repair Bypass graft, with other than vein; femoral-popliteal, bilateral fem aortic bypass ? Social History Alcohol Details:??Use: Past. Employment/School Details:??Status: Disabled. Exercise Details:??Self assessment: Poor condition. Home/Environment Details:??Living situation: Home/Independent. ??Lives with: Spouse. Nutrition/Health Details:??Diet: Regular. Substance Abuse Details:??Use: Never. Tobacco Details:??Current every day smoker, Other: 1-1/2 packs of cigarettes daily. ? Family History Mother (): Bone cancer; Hyperlipidemia Father (): CAD - Coronary artery disease; Hyperlipidemia Brother: Alcoholism; CAD - Coronary artery disease; Hepatitis C; Hyperlipidemia Brother: Hyperlipidemia Other: Hyperlipidemia Medications Acetaminophen (acetaminophen 325 mg oral tablet)?650?Milligram?By Mouth?Every 4 hours?as needed?Pain , Mild Albuterol (albuterol 90 mcg/inh inhalation powder)?2?puff(s)?Inhalation?Every 4 hours?as needed?as needed apixaban (Eliquis 5 mg oral tablet)?1?tab(s)?5?Milligram?By Mouth?2 times a day?for 30?Days Aspirin (aspirin 81 mg oral delayed release tablet)?1?tab(s)?81?Milligram?By Mouth?Daily Atorvastatin (atorvastatin 40 mg oral tablet)?See Instructions?TAKE 1 TABLET BY MOUTH DAILY Cholecalciferol (Vitamin D3 10,000 intl units oral capsule)?1?capsule?250?Microgram?By Mouth?Every week?for 6?week(s) Collagenase Topical (collagenase topical 250 u/gm ointment)?1?tyler?Topically?Daily?apply moist dressing over the santyl, triad cream on surrouding skin and DSD over all Docusate (Colace sodium 100 mg oral capsule)?100?Milligram?1?capsule?By Mouth?2 times a day Durable Medical Equipment (Nutritional Supplements)?Ensure?Oral?3 times a day levETIRAcetam (Keppra 500 mg oral tablet)?1?tab(s)?500?Milligram?By Mouth?2 timesa day Levofloxacin (levoFLOXacin 750 mg oral tablet)?1?tab(s)?750?Milligram?By Mouth?Every 48 hours?for 7?Days Lidocaine Topical (lidocaine 5% topical film)?Topically?Daily Melatonin (melatonin 3 mg oral tablet)?9?Milligram?By Mouth?Daily at bedtime Metoprolol (Metoprolol Succinate ER 25 mg oral tablet, extended release)?1?tab(s)?By Mouth?Daily Multivitamin With Minerals (Multivit Therapeutic/Minerals Tablet)?1?tab(s)?By Mouth?Daily Omeprazole (omeprazole 20 mg oral delayed release tablet)?1?tab(s)?20?Milligram?By Mouth?Daily in AM Oxycodone (oxyCODONE 5 mg oral tablet)?5?Milligram?1?tablet?By Mouth?Every 6 hours?as needed?mass pat reviewedtake colace?as needed for pain Pentoxifylline (pentoxifylline 400 mg oral tablet, extended release)?1?tablet?By Mouth?3 times a day Polyethylene Glycol 3350 (MiraLax oral powder for reconstitution)?17?gram?By Mouth?Daily?dissolve in water before taking Sulfamethoxazole/Trimethoprim (sulfamethoxazole-trimethoprim 800 mg-160 mg oral tablet)?1?tab(s)?By Mouth?2 times a day?for 7?Days Results Recent Labs VIROLOGY COVID-19 POC Result NEGATIVE ()?? 07/11/2022 21:00 ? EKG study * Event Display: ECG 12-Lead Authored Date: Please click on pdf link to open report * Event Display: ECG 12-Lead Authored Date: Ventricular Rate: 78 BPM Atrial Rate: 78 BPM P-R Interval: 172 ms QRS Duration: 100 ms Q-T Interval: 436 ms QTC Calculation(Bazett): 497 ms P Jal: 79 degrees R Jal: 88 degrees T Jal: 88 degrees Normal sinus rhythm Possible Left atrial enlargement Septal infarct , age undetermined Abnormal ECG When compared with ECG of 28-JUN-2022 17:55, QT has shortened Confirmed by DAVID REYEZ ([id number]) on 07/11/2022 5:06:59 PM [place]: DAVID REYEZ [facility] Progress note * Vandana Martínez RN: PERFORM, SIGN, VERIFY, MODIFY, SIGN Event Display: Progress Note Hospital Authored Date: Patient: PHAN CYR Age: 67 years Sex: Male : 1955 Associated Diagnoses: None Author: Vandana Martínez RN Findings Nursing Data Vital Signs : VITAL SIGNS SECTION 07/21/2022 16:00 EDT Temperature 98.0 DegF Temperature Route Oral Pulse Rate 60 bpm Respiratory Rate 18 br/min Systolic Blood Pressure 101 mm Hg Diastolic Blood Pressure 52 mm Hg L Blood pressure sites Arm, right Pulse Pressure 49 mm Hg Oxygen Saturation 96 % Mode of Delivery (Oxygen) Room air 07/21/2022 14:03 EDT Respiratory Rate 20 br/min 07/21/2022 11:00 EDT Temperature 97.7 DegF Temperature Route Oral Pulse Rate 71 bpm Respiratory Rate 18 br/min Systolic Blood Pressure 108 mm Hg Diastolic Blood Pressure 45 mm Hg L Blood pressure sites Arm, right Pulse Pressure 63 mm Hg Oxygen Saturation 97 % Mode of Delivery (Oxygen) Room air . Narrative/Incidental Patient alert and oriented x4. Tele rhythm NSR. LSCTA. [place] in place draining clear yellow urine. Left AKA. Wound vac in place at sacrum suction at 125mmHg. wound vac was removed by surgery approx 1200. Patient states pain at wounds/back PRN pain meds administered. Wound care performed to right heel, right and left ischium, right hip, and on left AKA. Please see biophysical for further assessment. Hourly rounding in place, patients safety remained. Bed alarm on, bed in lowest positin, and callbell within reach.. . Patient left AMA at 1900. notified prior that patients was on her way pick him up, MD Mir stated to have him leave AMA. Education provided to patient about their decision to leave AMA. IV discontinued, tele discontinued, and patient belongings in hand.. Patient left unit via wheelchairaccompanied by .. . Discharge Information Case Management Discharge Plan : Case Management Discharge Plan Data 07/21/2022 19:00 EDT Discharge Level of Care at Discharge Home/Intermediate/Foster Care * Kaya Mir MD: MODIFY, MODIFY, PERFORM, MODIFY Event Display: Progress Note Hospital Authored Date: Patient: ??PHAN CYR ? Age:??67 Years?Sex:??Male?:??1955?? Subjective No acute overnight events. ?? Today's Summary: - Wound vac removed. Patient's unable to come to [facility] as she does not have a ride, and thus wound care teaching was not done. Patient remains very upset about being in the hospital. Review of Systems Denies any headaches or fevers. Denies any shortness of breath or cough. Denies any abdominal pain, nausea or vomiting. Had a bowel movement yesterday. Denies any urinary issues Still endorsing back pain Objective Vital Signs?? Temperature: 98 DegF (07/21/22 16:00:00) Temperature Route: Oral (07/21/22 16:00:00) Pulse Rate: 60 bpm (07/21/22 16:00:00) Respiratory Rate: 18 br/min (07/21/22 16:00:00) Systolic Blood Pressure: 101 mm Hg (07/21/22 16:00:00) Diastolic Blood Pressure:??52 mm Hg??Low (07/21/22 16:00:00) Blood pressure sites: Arm, right (07/21/22 16:00:00) Mean Arterial Pressure: 81 mm Hg (07/21/22 05:55:00) Pulse Pressure: 49 mm Hg (07/21/22 16:00:00) Oxygen Saturation: 96 % (07/21/22 16:00:00) Mode of Delivery (Oxygen): Room air (07/21/22 16:00:00) Early Warning Score: 0 (07/21/22 16:47:30) ? Intake/Output? 07/13 16:26 07/21 07:00 07/20 07:00 07/19 07:00 07/18 07:00 ?? 07/21 17:57 07/21 17:57 07/21 06:59 07/20 06:59 07/19 06:59 Intake ?68428 ?709 ? 1065 ? 1434 ?0 Output ?47108 ? 1100 ? 1150 ? 1450 ?200 Net Total ?-2641 ? -391 ?-85 ?-16 ? -200 ? Urine Count ? 13 ?0 ?3 ?5 ?1 ? Physical Exam General:??No acute distress Respiratory:??Clear to auscultation bilaterally, no increased work of breathing Cardiovascular:??Normal rate, regular rhythm, no murmurs Abdomen:??No abdominal tenderness Neurologic:??Alert & Oriented Psychiatric:??Normal mood/affect Assessment/Plan Phan??is a 67 years old??patient??male with history of hypertension, CAD s/p CABG, A-fib,??HFrEF (EF40-45%),??opiate use disorder, epilepsy, PAD s/p left AKA (04/13/2022),??recently hospitalized for management of sacral osteomyelitis who was initially admitted for opioid overdose. ??He was also noted??to have hypotension, likely in the setting of opioid overdose, however it might have also been due to??dehydration??and the patient was also given??midodrine, however he has not??needed it??as hishypotension??resolved??with IV fluids.?? He has been??getting managed for his ischial and sacral ost eomyelitis??and??he??finished??a course of Zosyn and levofloxacin, and he had a wound VAC in place.Patient was initially supposed to get discharged to rehab, however he refused, and thus was??evaluated??by psychiatry, and eventually deemed??to have capacity to refuse??rehab.?? He is currently??ready to get discharged, however?? has not been able to set up VNA services for him to manage the wound vac, so surgery removed the wound vac wtoday ith plans of teaching his how to do wound care.Patient's was unable to get a ride today and thus it remains an unsafe discharge. ? History of Ischial and Sacral Osteomyelitis Last admission. S/P Wound VAC??placed on 07/02/2022?? 07/14 Wound vac fell out completely, covered with normal saline dressing. Finished Zosyn and levofloxacin course. Plan: - Wound vac removed today.- - Plan to teach how to do wound care and have her manage it at home given that has not beenable to set up VNA services. ?? Peripheral Arterial Disease Left AKA S/P??antegrade angiography of the RLE, angioplasty of the popliteal artery, and??debridement of RLEpressure wounds on 07/05 Plan: - Continue Tylenol,??Percocet PRN Q4 hours. Added tizanidine PRN for better pain control - Continue wound care ?? Opioid Use Disorder Nicotine Use Disorder Patient evaluated by addiction medicine, and has been getting more open to consider treatment for his opioid use disorder Psych evaluation: Patient has capacity to refuse rehab. Plan: - If leaves AMA, please set up an appointment with surgery to follow up outpatient. - SW following - Nicotine patch ?? Resolved This Hospital Stay: Acute Kidney Injury - Resolved Likely prerenal due as patient is endorsing low p.o intake. Patient is able to urinate, and so lesslikely due to an obstructive pathology. Plan: - Encourage p.o intake ?? Leukocytosis - Improved Patient does not seem to have any source of infection. No cough or shortness of breath. Wounds do not look infected. ?? Opioid Overdose - Resolved Patient took 1 bag of heroin, VNA called EMS for low O2 O2, RR and end tidal dropped on the way to the E - normalized after??5mg of IV narcan ?? Urinary Retention Patient had 600 mL of urine retained; did straight cath UA negative. Has been able to void normally. ?? Hypotension Hypoalbuminemia BP as low as 75/45. Asymptomatic Responded to albumin and midodrine Plan: - Discontinued??PRN midodrine 2.5mg -??Hold home metoprolol 25mg daily - Nutrition consulted ? Chronic Medical Problems: ?? - Atrial fibrillation:??Continue eliquis 5mg twice daily. Hold metoprolol as BP low - CAD: Continue aspirin 81, atorvastatain 40mg - Seizure disorder: Keppra 500mg twice daily - GERD: Pantoprazole 40mg??daily ? Quality Measures: Diet: Regular DVT prophylaxis:?? Apixaban CODE STATUS: Full code ? Patient has been??seen and discussed with Dr. Genesis Kirkpatrick??MD [facility] * [facility] DILL, [facility]: PERFORM Event Display: Progress Note Hospital Authored Date: I have seen and evaluated this patient on day of service noted above. I have discussed the case andits management with the resident and agree with the findings and plan as documented in the resident???s note. ? * Saira Tijerina NP: PERFORM Event Display: Progress Note Hospital Authored Date: Patient: ??PHAN CYR ? Age:??67 Years?Sex:??Male?:??1955?? Spoke with medicine team yesterday who report that pt continues to refuse STR placement and unable to secure VNA services for wound care. Therefore, unable to return home with wound vac. Wound vac will be removed prior to discharge and pt will have BID WTD dressing changes to sacral wound. to come in today for wound care teaching and management this morning at 10 AM. Pt will follow up OP in the surgical clinic in 1-2 weeks. Contact information provided. * Saira Tijerina NP: PERFORM Event Display: Progress Note Hospital Authored Date: [id number] Wound vac removed, pt tolerated well. Wound bed pink, no drainage, no foul odor, surrounding tissueat left aspect of wound with some fibrinous tissue. WTD dressing applied to sacrum. ACS signing off, please with any questions or concerns. Note * Vandana Martínez RN: PERFORM Event Display: Discharge/Transfer Note Hospital Authored Date: [id number] Nursing Discharge Note Entered On: 07/21/2022 19:44 EDT Performed On: 07/21/2022 19:00 EDT by Vandana Martínez RN Nursing Discharge Note 2 Discharge Time : 07/21/2022 19:00 EDT Discharge Level of Care at Discharge : Home/Intermediate/Foster Care AMA Form Signed : Yes Patient Left Unit Via : Wheelchair Patient Accompanied Off Unit with : Significant other DC Instructions Provided & Signed by Pt : No Patient Understands D/C Instructions : No Patient Instructions Discharge Signed : No Instructions for Discharge Comments : Patient left AMA Did Pt have Specialty Bed or Wound Vac : Yes Vandana Martínez RN - 07/21/2022 19:43 EDT * Dorinda Keating RN: PERFORM Event Display: Discharge/Transfer Note Hospital Authored Date: [id number] Discharge Planning Nursing Entered On: 07/15/2022 13:31 EST Performed On: 07/15/2022 13:31 EST by Dorinda Keating RN Discharge Planning Nursing Anticipated discharge : senior living facility Dorinda Keating RN - 07/15/2022 13:31 EST Patient Care team information Care Team Personnel Name: Ana Maria Cruz RN Position: [facility] RN Member Role: Primary Care Nurse Name: Morena Abraham RN Position: [facility] SN RN Member Role: Primary Care Nurse Name: Jena Barron RN Position: S RN Member Role: Primary Care Nurse Name: Faith Cheek RN Position: S RN Member Role: Primary Care Nurse Name: oRdney He RN Position: S RN Member Role: Primary Care Nurse Name: Ana Maria Gonzalez RN Position: S RN Member Role: Primary Care Nurse Name: Rae Vigil RN Position: [facility] RN Member Role: Primary Care Nurse Name: Johan Montes RN Position: [facility] RN Member Role: Primary Care Nurse Name: Tony Rhodes MD Position: [facility] Primary Care Physician Member Role: PCP Address: Address: [address] [place] [id number] Name: Milad Rodríguez Position: [facility] RN Member Role: Primary Care Nurse Name: Rachel Brown RN Position: [facility] RN Member Role: Primary Care Nurse Name: Lucia Denton RN Position: [facility] RN Member Role: Primary Care Nurse Name: Bill Velazquez RN Position: [facility] RN Member Role: Primary Care Nurse Name: Chelita Hernandez RN Position: [facility] RN Member Role: Primary Care Nurse Name: Donald Purcell RN Position: [facility] RN Member Role: Primary Care Nurse Name: Shameka Hicks RN Position: [facility] RN Member Role: Primary Care Nurse Name: Lynette Wooten RN Position: [facility] RN Member Role: Primary Care Nurse Name: Batsheva Herring RN Position: [facility] AMB Nurse Member Role: Primary Care Nurse Name: Barbara Post RN Position: [facility] RN Member Role: Primary Care Nurse Name: Roxana Hutchison RN Position: [facility] RN Member Role: Primary Care Nurse Name: David Mensah RN Position: [facility] RN Member Role: Primary Care Nurse Name: Mary Mckeon RN Position: [facility] AMB Nurse Member Role: Primary Care Nurse Name: Tono AVENDANO Attending Position: [facility] ED Medicine MD Name: Hoda Rosario Position: [facility] ED TA [facility] Member Role: Informatics Developer Name: Gayatri Luong RN Position: [facility] ED RN W/OE and Tasks Member Role: Patient Care Provider Name: Shyla Becerril Position: [facility] ED OA Charge Member Role: ED Associate Care Team Related Persons Name: FANY CYR Address: home [address] [place] [address] Name: KITTY CYR Address: [place] [address]
--- OUTSIDE RECORDS SUMMARY | 2023-04-27 13:32 | XMS_ITS | Continuity of Care Document ---
Author Name Unknown Organization [facility] Address [address] [place] [address]- Care Team Providers Care Director Mobile Name Role Phone Tony Rhodes MD Primary Care Physician Encounter [facility] Date(s): 08/26/22 - 09/25/22 [facility] [address] [place] [address]- Attending Physician: Admtr, Ar8 Allergies, Adverse Reactions, Alerts Substance Reaction Severity Status Vioxx Hypertension Mild Active Immunizations Given and Recorded Vaccine Date Status Refusal Reason [id number] bivalent booster vax 03/11/22 Recorded influenza virus [...] Pneumococcal Vacc (oldterm) 05/12/99 Given 1Location History: [facility] 2Admin Note: VIS GIVEN 3Location History: [facility] 4Admin Note: GIVEN BY JOHAN BOWERS BY JUDAH 5Admin Note: GIVEN IN CLINIC SHAM 6Admin Note: [facility] 7Admin Note: H1N1 Medications acetaminophen [...] hours, # 8 Gm, 0 Refills, Maintenance, 08/01/22 15:26:00 EDT, [facility], Partial fill upon patient request if the prescription is for a schedule II opioid drug., 170, cm, 08/01/22 14:54:00 EDT, Height, 45.7, kg, ... Start Date: 08/01/22 Status: Ordered albuterol 90 mcg/inh inhalation powder 2 puffs, Inhalation, Every 4 hours, PRN as needed, # 1 each, 5 Refills, Maintenance, 07/29/19 13:25:00 EDT, Powder, [facility], 167, cm, 04/30/19 15:55:00 EST, Height, 70.2, kg, 07/31/18 6:33:00EDT, Dry Weight Start Date: 07/29/19 Status: Ordered aspirin 81 mg oral delayed release tablet 1 tablet = 81 mg, By Mouth, Daily, Maintenance, 09/21/21 16:04:00 EDT Start Date: 09/21/21 Status: Ordered atorvastatin 40 mg oral tablet See Instructions, TAKE 1 TABLET BY MOUTH DAILY, # 90 tablet, 1 Refills, Soft Stop, 09/04/22 16:59:00 EDT, [facility], 170, cm, 08/01/22 14:54:00 EDT, Height, 45.7, kg, 07/12/22 22:04:00 EST, DryWeight Start Date: 09/04/22 Status: Ordered cloNIDine 0.1 mg oral tablet 0.1 mg, 1, tablet, By Mouth, 2 times a day, # 60 tablet, Refills 2, Tot. Refills 2, Maintenance, 09/05/22 13:27:00 EDT, Route to Pharmacy Electronically, [facility], Partial fill upon patient request if the prescription is for a schedule II opioi... Start Date: 09/05/22 Status: Ordered Colace sodium 100 mg oral capsule 100 mg, 1, capsule, By Mouth, 2 times a day, # 60 capsule, Refills 0, Tot. Refills 0, Maintenance, 06/24/22 16:00:00 EST, Route to Pharmacy Electronically, [facility], Partial fill upon patient request if the prescription is for a schedule II opi... Start Date: 06/24/22 Status: Ordered collagenase topical 250 u/gm ointment 1 application, Topically, Daily, apply moist dressing over the santyl, triad cream on surrouding skin and DSD over all, # 90 Gm, 0 Refills, Maintenance, 07/08/22 13:04:00 EST, Ointment, [facility], Partial fill upon patient request if th... Start Date: 07/08/22 Status: Ordered Eliquis 5 mg oral tablet 1 tablet = 5 mg, By Mouth, 2 times a day, # 60 tablet, 2 Refills, Maintenance, 09/05/22 13:34:00 EDT, Tablet, [facility], 170, cm, 08/01/22 14:54:00 EDT, Height, 45.7, kg, 07/12/22 22:04:00 EST,Dry Weight Start Date: 09/05/22 Stop Date: 12/04/22 Status: Ordered Keppra 500 mg oral tablet 1 tablet = 500 mg, By Mouth, 2 times a day, # 60 tablet, 2 Refills, Maintenance, 09/05/22 13:26:00 EDT, Tablet, [facility], Partial fill upon patient request if the prescription is for a schedule II opioid drug., 170, cm, 08/01/22 14:54:00 EDT, H... Start Date: 09/05/22 Status: Ordered lidocaine 5% topical film Topically, [...] tablet, 2 Refills, Maintenance, 02/18/22 9:48:00 EDT, [facility], 172.7, cm, 01/18/22 14:53:00 EDT, Height, 68.2, kg, 09/21/21 17:43:00 EDT, Dry Weight Start Date: 02/18/22 Status: Ordered MiraLax oral powder for reconstitution = 17 Gm, By Mouth, Daily, dissolve in water before taking, # 255 Gm, 0 Refills, Maintenance, 07/08/22 9:59:00 EST, REC Powder, [facility], Partial fill upon patient request [...] 07/08/22 9:58:00 EST, Route to Pharmacy Electronically, [facility], Partial fill upon... Start Date: 07/08/22 Status: Ordered pentoxifylline 400 mg oral tablet, extended release 1, tablet, By Mouth, 3 times a day, # 90 tablet, Refills 11, Route to Pharmacy Electronically, [facility], 167, cm, 08/20/21 12:32:00 EDT, Height Start Date: 09/05/21 Status: Ordered Vitamin D3 10,000 intl units oral capsule 1 capsule = 250 mcg, By Mouth, Every week, # 6 capsule, 0 Refills, Maintenance, 12/19/21 12:19:00 EDT, Capsule, [facility], Partial fill upon patient request if [...] of cigarettes daily; entered on: 10/23/17 Sex EKG study * Event Display: EKG Authored Date: * Event Display: EKG Authored Date: Cardiology * Winnie Martínez: PERFORM Event Display: Cardiovascular Results Scanned Authored Date: Cardiology Outpatient Note * Moira Nguyễn: PERFORM Event Display: Cardiology Note Office Authored Date: * Sylvia Freeman: PERFORM Event Display: Cardiology Note Office Authored Date: [id number] * Antonieta Tapia: PERFORM Event Display: Cardiology Note Office Authored Date: [id number] XR Shoulder Views * Event Display: X-Ray Shoulder Authored Date: Radiology * Winnie Martínez: PERFORM Event Display: Radiology Results Scanned Authored Date: * Moira Nguyễn: PERFORM Event Display: Radiology Results Scanned Authored Date: * Sylvia Freeman: PERFORM Event Display: Radiology Results Scanned Authored Date: Patient Care team information Care Team Personnel Name: Morena Abraham RN Position: [facility] RN Member Role: Primary Care Nurse Name: Jena Barron RN Position: [facility] RN Member Role: Primary Care Nurse Name: Faith Cheek RN Position: [facility] RN Member Role: Primary Care Nurse Name: Rodney He RN Position: [facility] RN Member Role: Primary Care Nurse Name: Barbara Snider RN Position: [facility] SN RN Member Role: Primary Care Nurse Name: Ana Maria Gonzalez RN Position: [facility] RN Member Role: Primary Care Nurse Name: Rae Vigil RN Position: [facility] ED RN W/OE and Tasks Member Role: Primary Care Nurse Name: Johan Montes RN Position: [facility] RN Member Role: Primary Care Nurse Name: Tony Rhodes MD Position: [facility] Primary Care Physician Member Role: PCP Address: Address: [address] [place] [id number] Name: Milad Rodríguez Position: [facility] RN Member Role: Primary Care Nurse Name: Rachel Brown RN Position: [facility] RN Member Role: Primary Care Nurse Name: Lucia Denton RN Position: [facility] RN Member Role: Primary Care Nurse Name: Bill Velazquez RN Position: [facility] RN Member Role: Primary Care Nurse Name: Chelita Hernandez RN Position: [facility] RN Member Role: Primary Care Nurse Name: Donald Purcell RN Position: [facility] RN Member Role: Primary Care Nurse Name: Shameka Hicks RN Position: [facility] RN Member Role: Primary Care Nurse Name: Lynette Wooten RN Position: [facility] RN Member Role: Primary Care Nurse Name: Batsheva Herring RN Position: [facility] OB RN Member Role: Primary Care Nurse Name: Roxana Hutchison RN Position: [facility] RN Member Role: Primary Care Nurse Name: David Mensah RN Position: [facility] RN Member Role: Primary Care Nurse Name: Mary Mckeon RN Position: [facility] AMB Nurse Member Role: Primary Care Nurse Care Team Related Persons Name: FANY CYR Address: home [address] [place] [address] Name: KITTY CYR Address: [place] [address]
--- OUTSIDE RECORDS SUMMARY | 2023-04-27 13:33 | XMS_ITS | Continuity of Care Document ---
Author Name Unknown Organization [facility] Address [address] [place] [address]- Care Team Providers Care Farm Assistant Name Role Phone Tony Rhodes MD Primary Care Physician [place] [facility] [place] 09/26/22 [facility] [address] [place] [address]- Attending Physician: Delgado Christine Admitting Physician: Delgado Christine Referring Physician: Delgado Christine Allergies, Adverse Reactions, Alerts Substance Reaction Severity Status Vioxx Hypertension Mild Active Immunizations Given and Recorded Vaccine Date Status Refusal Reason [id number] bivalent booster vax 03/11/22 Recorded influenza virus [...] (oldterm) 05/12/99 Given 1Location History: [facility] 2Admin Note: VIS GIVEN 3Location History: [facility] 4Admin Note: GIVEN BY JOHAN BOWERS BY JUDAH 5Admin Note: GIVEN IN CLINIC SHAM 6Admin Note: [facility] 7Admin Note: H1N1 Medications acetaminophen 325 [...] Gm, 0 Refills, Maintenance, 08/01/22 15:26:00 EDT, [facility], Partial fill upon patient request if the prescription is for a schedule II opioid drug., 170, cm, 08/01/22 14:54:00 EDT, Height, 45.7, kg, 03... Start Date: 08/01/22 Status: Ordered albuterol 90 mcg/inh inhalation powder 2 puffs, Inhalation, Every 4 hours, PRN as needed, # 1 each, 5 Refills, Maintenance, 07/29/19 13:25:00 EDT, Powder, [facility], 167, cm, 04/30/19 15:55:00 EST, Height, [...] 1 Refills, Soft Stop, 09/04/22 16:59:00 EDT, [facility], 170, cm, 08/01/22 14:54:00 EDT, Height, 45.7, kg, 07/12/22 22:04:00 EST, DryWeight Start Date: 09/04/22 Status: Ordered cloNIDine 0.1 mg oral tablet 0.1 mg, 1, tablet, By Mouth, 2 times a day, # 60 tablet, Refills 2, Tot. Refills 2, Maintenance, 09/05/22 13:27:00 EDT, Route to Pharmacy Electronically, [facility], Partial fill upon patient request if the prescription is for a schedule II opioi... Start Date: 09/05/22 Status: Ordered Colace sodium 100 mg oral capsule 100 mg, 1, capsule, By Mouth, 2 times a day, # 60 capsule, Refills 0, Tot. Refills 0, Maintenance, 06/24/22 16:00:00 EST, Route to Pharmacy Electronically, [facility], Partial fill upon patient request if the prescription is for a schedule II opi... Start Date: 06/24/22 Status: Ordered collagenase topical 250 u/gm ointment 1 application, Topically, Daily, apply moist dressing over the santyl, triad cream on surrouding skin and DSD over all, # 90 Gm, 0 Refills, Maintenance, 07/08/22 13:04:00 EST, Ointment, [facility], Partial fill upon patient request if [...] 2 Refills, Maintenance, 09/05/22 13:26:00 EDT, Tablet, [facility], Partial fill upon patient request if [...] tablet, 2 Refills, Maintenance, 02/18/22 9:48:00 EDT, [facility], 172.7, cm, 01/18/22 14:53:00 EDT, Height, 68.2, kg, 09/21/21 17:43:00 EDT, Dry Weight Start Date: 02/18/22 Status: Ordered MiraLax oral powder for reconstitution = 17 Gm, By Mouth, Daily, dissolve in water before taking, # 255 Gm, 0 Refills, Maintenance, 07/08/22 9:59:00 EST, REC Powder, [facility], Partial fill upon [...] 07/08/22 9:58:00 EST, Route to Pharmacy Electronically, [facility], Partial fill upon... Start Date: 07/08/22 Status: Ordered pentoxifylline 400 mg oral tablet, extended release 1, tablet, By Mouth, 3 times a day, # 90 tablet, Refills 11, Route to Pharmacy Electronically, [facility], 167, cm, 08/20/21 12:32:00 EDT, Height Start Date: 09/05/21 Status: Ordered Vitamin D3 10,000 intl units oral capsule 1 capsule = 250 mcg, By Mouth, Every week, # 6 capsule, 0 Refills, Maintenance, 12/19/21 12:19:00 EDT, Capsule, [facility], Partial fill upon patient request if [...] of cigarettes daily; entered on: 10/23/17 Sex Cardiology Outpatient Note * Kailee Acosta: PERFORM Event Display: Cardiology Note Office Authored Date: [id number] Patient Care team information Care Team Personnel Name: Morena Abraham RN Position: [facility] SN RN Member Role: Primary Care Nurse Name: Jena Barron RN Position: [facility] RN Member Role: Primary Care Nurse Name: Faith Cheek RN Position: [facility] RN Member Role: Primary Care Nurse Name: Rodney He RN Position: [facility] RN Member Role: Primary Care Nurse Name: Barbara Snider RN Position: [facility] SN RN Member Role: Primary Care Nurse Name: Ana Maria Gonzalez RN Position: [facility] RN Member Role: Primary Care Nurse Name: Rae Vigil RN Position: [facility] ED RN W/OE and Tasks Member Role: Primary Care Nurse Name: Johan Montes RN Position: [facility] RN Member Role: Primary Care Nurse Name: Tony Rhodes MD Position: [facility] Primary Care Physician Member Role: PCP Address: Address: [address] [place] [id number]- Name: Milad Rodríguez Position: [facility] RN Member Role: Primary Care Nurse Name: Rachel Brown RN Position: [facility] RN Member Role: Primary Care Nurse Name: Lucia Denton RN Position: [facility] RN Member Role: Primary Care Nurse Name: Bill Velazquez RN Position: [facility] RN Member Role: Primary Care Nurse Name: Chelita Hernandez RN Position: [facility] RN Member Role: Primary Care Nurse Name: Donald Purcell RN Position: [facility] RN Member Role: Primary Care Nurse Name: Shameka Hicks RN Position: [facility] RN Member Role: Primary Care Nurse Name: Lynette Wooten RN Position: [facility] RN Member Role: Primary Care Nurse Name: Batsheva Herring RN Position: [facility] OB RN Member Role: Primary Care Nurse Name: Roxana Hutchison RN Position: [facility] RN Member Role: Primary Care Nurse Name: David Mensah RN Position: [facility] RN Member Role: Primary Care Nurse Name: Mary Mckeon RN Position: [facility] AMB Nurse Member Role: Primary Care Nurse Care Team Related Persons Name: FANY CYR Address: home [address] [place] [id number] Name: KITTY CYR Address: [place] [address]
--- OUTSIDE RECORDS SUMMARY | 2023-04-27 13:33 | XMS_ITS | Continuity of Care Document ---
Author Name Unknown Organization [facility] Address [address] [place] [address]- Care Team Providers Care Decorating And Assembly Supervisor Name Role Phone Meagan DILL, Tony Gaines Primary Care Physician Encounter [facility] Date(s): 12/02/22 - 12/09/22 [facility] [address], [place] [address] Attending Physician: Tony Rhodes MD Admitting Physician: Tony Rhodes MD Allergies, Adverse Reactions, Alerts Substance Reaction Severity Status Vioxx Hypertension Mild Active Immunizations Given and Recorded Vaccine Date Status Refusal Reason [id number] bivalent booster vax 03/11/22 Recorded influenza virus [...] (oldterm) 05/12/99 Given 1Location History: [facility] 2Admin Note: VIS GIVEN 3[facility] 4Admin Note: GIVEN BY JOHAN BOWERS BY JUDAH 5Admin Note: GIVEN IN [facility] 6Admin Note: [facility] 7Admin Note: H1N1 Medications acetaminophen 325 [...] Gm, 0 Refills, Maintenance, 11/21/22 14:00:00 EDT, [facility], Partial fill upon patient request if [...] Dry Weight Start Date: 11/21/22 Status: Ordered collagenase topical 250 u/gm ointment 1 application, Topically, 2 times a day, for 14 days, apply to right hip and sacrococcygeal wounds,# 90 Gm, 0 Refills, Acute 12/16/22 14:54:00 EDT, 12/02/22 14:54:00 EDT, Ointment, [facility], Partial fill upon patient request if the prescriptio... Start Date: 12/02/22 Stop Date: 12/16/22 Status: Ordered collagenase topical 250 u/gm ointment See Instructions, Topically Daily, # 90 Gm, 0 Refills, Acute 12/14/22 21:00:00 EDT, 11/13/22 12:05:00 EDT, Ointment, [facility], Partial fill upon patient request if the prescription is for a schedule II opioid drug., Topically Daily, 170, cm, 06... Start Date: 11/13/22 Stop Date: 12/14/22 Status: Ordered Eliquis 5 mg oral tablet [...] Most recent to oldest [Reference Range]: 1 Height 170 cm (12/02/22 2:04 PM) Oxygen Saturation [94-100 %] 95 % (12/02/22 2:04 PM) Pulse Rate [55-90 bpm] 120 bpm *H* (12/02/22 2:04 PM) Blood Pressure [90-138/55-84 mm Hg] 130/ 80mm Hg (12/02/22 2:04 PM) Blood pressure sites Arm, right (12/02/22 2:04 PM) Social History Social History Type Response Smoking Status 10 or more cigarette s (1/2 pack or more)/day in last 30 days; Other: 2 PPD; entered on: 11/04/22 Sex Patient Care team information Care Team Personnel Name: Morena Abraham RN Position: [facility] RN Member Role: Primary Care Nurse Name: Jena Barron RN Position: S RN Member Role: Primary Care Nurse Name: Faith Cheek RN Position: S RN Member Role: Primary Care Nurse Name: Rodney He RN Position: S RN Member Role: Primary Care Nurse Name: Barbara Snider RN Position: [facility] SN RN Member Role: Primary Care Nurse Name: Ana Maria Gonzalez RN Position: [facility] RN Member Role: Primary Care Nurse Name: Rae Vigil RN Position: [facility] ED RN W/OE and Tasks Member Role: Primary Care Nurse Name: Johan Montes RN Position: [facility] RN Member Role: Primary Care Nurse Name: Tony Rhodes MD Position: [facility] Physician - Primary Care Member Role: PCP Address: Address: [address] [place] [id number] Name: Rachel Brown RN Position: [facility] RN Member Role: Primary Care Nurse Name: Lucia Denton RN Position: [facility] RN Member Role: Primary Care Nurse Name: Quin Oliveira RN Position: [facility] RN Member Role: Primary Care Nurse Name: Chelita Hernandez RN Position: [facility] RN Member Role: Primary Care Nurse Name: Lynette Leon RN Position: [facility] RN Member Role: Primary Care Nurse Name: Donald Purcell RN Position: [facility] RN Member Role: Primary Care Nurse Name: Shameka Hicks RN Position: [facility] RN Member Role: Primary Care Nurse Name: Lynette Wooten RN Position: [facility] RN Member Role: Primary Care Nurse Name: Batsheva Herring RN Position: [facility] OB RN Member Role: Primary Care Nurse Name: Roxana Hutchison RN Position: [facility] AMB Nurse Member Role: Primary Care Nurse Name: David Mensah RN Position: [facility] RN Member Role: Primary Care Nurse Name: Mary Mckeon RN Position: [facility] AMB Nurse Member Role: Primary Care Nurse Care Team Related Persons Name: FANY CYR Address: [address] [place] [address] Name: KITTY CYR
--- OUTSIDE RECORDS SUMMARY | 2023-04-27 13:33 | XMS_ITS | Continuity of Care Document ---
Author Name Unknown Organization [facility] ter Address [address] [place] [id number]- Care Team Providers Care Armored Machine Operator Name Role Phone Meagan DILL, Tony Gaines Primary Care Physician [phone] Encounter [facility] Date(s): 11/04/22 - 11/13/[address] [address]- Encounter Diagnosis Cellulitis(Final) - 11/04/22 Failure to thrive in adult(Final) - 11/04/22 Discharge Disposition: A-D/C Home Attending Physician: Odalys Callahan MD Admitting Physician: Sylwia Gross MD Referring Physician: Not on Staff, Referring MD Allergies, Adverse Reactions, Alerts Substance Reaction Severity Status Vioxx Hypertension Mild Active Immunizations Given and Recorded Vaccine Date Status Refusal Reason [id number] bivalent booster vax 03/11/22 Recorded influenza virus [...] Pneumococcal Vacc (oldterm) 05/12/99 Given 1Location History: [facility] 2Admin Note: VIS GIVEN 3Location History: [facility] 4Admin Note: GIVEN BY JOHAN BOWERS BY JUDAH 5Admin Note: GIVEN IN [facility] 6Admin Note: [employer] [facility] 7Admin Note: H1N1 Medications acetaminophen 325 [...] Gm, 0 Refills, Maintenance, 08/01/22 15:26:00 EDT, [facility], Partial fill upon patient request if the prescription is for a schedule II opioid drug., 170, cm, 08/01/22 14:54:00 EDT, Height, 45.7, kg, 030... Start Date: 08/01/22 Status: Ordered albuterol 90 mcg/inh inhalation powder 2 puffs, Inhalation, Every 4 hours, PRN as needed, # 1 each, 5 Refills, Maintenance, 07/29/19 13:25:00 EDT, Powder, [facility], 167, cm, 04/30/19 15:55:00 EST, Height, [...] 1 Refills, Soft Stop, 09/04/22 16:59:00 EDT, [facility], 170, cm, 08/01/22 14:54:00 EDT, Height, 45.7, kg, 07/12/22 22:04:00 EST, DryWeight Start Date: 09/04/22 Status: Ordered collagenase topical 250 u/gm ointment [...] Date: 09/05/22 Stop Date: 12/04/22 Status: Ordered emollients, topical emulsion See Instructions, Vashe Topical solution apply topically daily as per wound care instruction, # 1 pack/packet, 0 Refills, Maintenance, 11/13/22 12:07:00 EDT, [facility], Partial fill upon patient request if the prescription is for a schedule... Start Date: 11/13/22 Status: Ordered linezolid 600 mg oral tablet 1 tablet = 600 mg, By Mouth, Every 12 hours, for 9 days, # 18 tablet, 0 Refills, Acute 11/22/22 12:11:00 EDT, 11/13/22 12:11:00 EDT, Tablet, [facility], Partial fill upon patient request if the prescription is for a schedule II opioid drug., 170,... Start Date: 11/13/22 Stop Date: 11/22/22 Status: Ordered melatonin 3 mg oral tablet = 9 mg, By Mouth, Daily at bedtime, 0 Refills, Maintenance, 04/19/22 14:03:00 EST, Tablet, Partial fill upon patient request if the prescription is for a schedule II opioid drug. Start Date: 04/19/22 Status: Ordered MiraLax oral powder for reconstitution = 17 Gm, By Mouth, Daily, dissolve in water before taking, # 255 Gm, 0 Refills, Maintenance, 07/08/22 9:59:00 EST, REC Powder, [facility] 3, Partial fill upon patient request [...] 2LUE 3post cabg afib, s/p cva 4LUE Results Orders for Microbiology Reports Name Date Anaerobic Culture (ANAEROBIC CULTURE) Anaerobic Culture (ANAEROBIC CULTURE) Fungal Culture, Nonrespiratory (FUNGAL C ULT,NON-RESPIRATORY) 11/08/22 Fungal Culture, Nonrespiratory (FUNGAL C ULT,NON-RESPIRATORY) 11/08/22 Tissue Culture w/ Gram Smear (TISSUE/BIO PSY CULT.) 11/08/22 Tissue Culture w/ Gram Smear (TISSUE/BIO PSY CULT.) 11/08/22 Wound Deep Culture w/ Gram Smear (Cultur e Wound Deep w/ Gram Smear) 11/04/22 Blood Culture 11/04/22 Blood Culture #2 11/04/22 Microbiology Reports TEST:Anaerobic Culture STATUS:Unauthenticated BODY SITE: SOURCE:[email or web address] COLLECTED DATE/TIME:11/08/22 4:00 PM Anaerobic Culture SPECIMEN DESCRIPTION : TISSUE LEFT AKA BONE SPECIAL REQUESTS : NONE CULTURE : NO ANAEROBES ISOLATED SO FAR. REPORT STATUS : PRELIMINARY REPORT TEST:Anaerobic Culture STATUS:Auth (Verified) BODY SITE: SOURCE:TISSUE1 COLLECTED DATE/TIME:11/08/22 4:00 PM Anaerobic Culture SPECIMEN DESCRIPTION : TISSUE LEFT AKA WOUND SPECIAL REQUESTS : NONE CULTURE : NO ANAEROBES ISOLATED REPORT STATUS : FINAL 11/11/2022 TEST:Tissue/Biopsy Culture STATUS:Auth (Verified) BODY SITE: SOURCE:TISSUE1 COLLECTED DATE/TIME:11/08/22 4:00 PM Tissue/Biopsy Culture SPECIMEN DESCRIPTION : TISSUE LEFT AKA WOUND SPECIAL REQUESTS : NONE GRAM STAIN : NO CELLS OR ORGANISMS SEEN CULTURE : 1+ ENTEROCOCCUS FAECIUM, VANCOMYCIN RESISTANT. These AST results were performed on the [employer] 2 ID and AST system REPORT STATUS : FINAL 11/13/2022 ORGANISM 1+ ENTEROCOCCUS FAECIUM, VANCOMYCIN RESISTANT. These AST results were performed on the [employer] 2 ID and AST system METHOD MIN. INHIB. CONC. (MCG/ML) AMPICILLIN RESISTANT LINEZOLID SUSCEPTIBLE VANCOMYCIN RESISTANT GENTAMICIN SYNERGY SUSCEPTIBLE STREPTOMYCIN SYNERGY SUSCEPTIBLE ORGANISM 1+ ENTEROCOCCUS FAECIUM, VANCOMYCIN RESISTANT. These AST results were performed on the [employer] 2 ID and AST system METHOD ETEST GRADIENT STRIP (MCG/ML) DAPTOMYCIN SUSCEPTIBLE TEST:Tissue/Biopsy Culture STATUS:Auth (Verified) BODY SITE: SOURCE:TISSUE1 COLLECTED DATE/TIME:11/08/22 4:00 PM Tissue/Biopsy Culture SPECIMEN DESCRIPTION : TISSUE LEFT AKA BONE SPECIAL REQUESTS : NONE GRAM STAIN : NO CELLS OR ORGANISMS SEEN CULTURE : NO GROWTH 2 DAYS REPORT STATUS : FINAL 11/11/2022 TEST:Fungal Culture, Non-Respiratory STATUS:Unauthenticated BODY SITE: SOURCE:TISSUE1 COLLECTED DATE/TIME:11/08/22 4:00 PM Fungal Culture, Non-Respiratory SPECIMEN DESCRIPTION : TISSUE LEFT AKA WOUND SPECIAL REQUESTS : NONE DIRECT EXAM : NO FUNGAL ELEMENTS OBSERVED CULTURE : NO FUNGI ISOLATED AFTER 2 DAYS REPORT STATUS : PRELIMINARY REPORT TEST:Fungal Culture, Non-Respiratory STATUS:Unauthenticated BODY SITE: SOURCE:TISSUE1 COLLECTED DATE/TIME:11/08/22 4:00 PM Fungal Culture, Non-Respiratory SPECIMEN DESCRIPTION : TISSUE LEFT AKA BONE SPECIAL REQUESTS : NONE DIRECT EXAM : NO FUNGAL ELEMENTS OBSERVED CULTURE : NO FUNGI ISOLATED AFTER 2 DAYS REPORT STATUS : PRELIMINARY REPORT TEST:Deep Wound Culture STATUS:Modified/Amended/Corrected BODY SITE: SOURCE:WOUND COLLECTED DATE/TIME:11/05/22 12:43 AM Deep Wound Culture SPECIMEN DESCRIPTION : WOUND BUTTOCK RT SPECIAL REQUESTS : NONE GRAM STAIN : 3+ POLYMORPHONUCLEAR LEUKOCYTES 1+ GRAM POSITIVE COCCI 1+ GRAM POSITIVE RODS CULTURE : 1+ STAPHYLOCOCCUS AUREUS, METHICILLIN RESISTANT. METHICILLIN RESISTANT STAPH AUREUS SHOULD BE CONSIDERED CLINICALLY RESISTANT TO ALL BETA-LACTAMS. This isolate was identified using Maldi-TOF system These AST results were performed on the [employer] 2 ID and AST system No other significant microorganisms isolated. Please consult the laboratory ([phone]) within 7 days if more definitive studies are clinically indicated. REPORT STATUS : FINAL 11/07/2022 ORGANISM 1+ STAPHYLOCOCCUS AUREUS, METHICILLIN RESISTANT. METHICILLIN RESISTANT STAPH AUREUS SHOULD BE CONSIDERED CLINICALLY RESISTANT TO ALL BETA-LACTAMS. This isolate was identified using Maldi-TOF system These AST results were performed on the [employer] 2 ID and AST system METHOD MIN. INHIB. CONC. (MCG/ML) CIPROFLOXACIN SUSCEPTIBLE CLINDAMYCIN SUSCEPTIBLE ERYTHROMYCIN RESISTANT INDUCIBLE CLINDAMYCI NEGATIVE LEVOFLOXACIN SUSCEPTIBLE LINEZOLID SUSCEPTIBLE OXACILLIN RESISTANT RIFAMPIN SUSCEPTIBLE RIFAMPIN RIFAMPIN SHOULD NOT BE USED ALONE FOR ANTIMICROBIAL RIFAMPIN THERAPY. TETRACYCLINE SUSCEPTIBLE TRIMETH/SULFAMETHOX SUSCEPTIBLE VANCOMYCIN SUSCEPTIBLE TEST:Blood Culture, Second Order STATUS:Auth (Verified) BODY SITE: SOURCE:Blood COLLECTED DATE/TIME:11/04/22 6:22 PM Blood Culture, Second Order SPECIMEN DESCRIPTION : BLOOD L FOREARM SPECIAL REQUESTS : NONE CULTURE : NO GROWTH 5 DAYS. REPORT STATUS : FINAL 11/09/2022 TEST:Blood Culture STATUS:Auth (Verified) BODY SITE: SOURCE:Blood COLLECTED DATE/TIME:11/04/22 5:59 PM Blood Culture SPECIMEN DESCRIPTION : BLOOD RT FA SPECIAL REQUESTS : NONE CULTURE : NO GROWTH 5 DAYS. REPORT STATUS : FINAL 11/09/2022 Radiology Reports * Exam Date Time Procedure Performing Provider Status 11/10/22 1:25 AM MRI Ext Lower W/O Contrast Left Mo David simone; Auth (Verified) Notes: (MRI Ext Lower W/O Contrast Left) Reason For Exam: AKA stump wound left;Infection RESULT: MRI Ext Lower W/O Contrast Left INDICATION: Question left [id number] amputation osteomyelitis. History of stump revision on 11/08/2022. TECHNIQUE: Multiplanar multisequence MRI of the left femur without contrast. A postcontrast study was planned, however the patient could not tolerate the examination. No contrast was given. COMPARISONS: MRI pelvis 11/06/2022 FINDINGS: Study is markedly limited by patient motion artifact, as well as poor signal in the distal left femur. Bone: Patient is status post above the knee amputation. No definitive T1 marrow replacement to suggest osteomyelitis. Similar appearance to heterogeneous signal abnormality involving the cortex of the left femur throughout the remaining diaphysis, but worse distally. This does not appear to involveintramedullary space. 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 Soft tissues: Edema surrounds amputation revision site. Chronic muscular edema of the quadriceps and hamstring musculature surrounding the amputation site. No definitive collection although limited on this noncontrast examination. IMPRESSION: Markedly limited examination. Patient could not tolerate the exam even after being medicated. Similar appearance to abnormal signal throughout the left femoral cortex worst distally near the amputation site. No involvement of the medullary space. This finding is atypical for osteomyelitis andmay reflect bony resorption/demineralization. Follow-up surgical cultures. If there is continued concern for infection tagged white blood cell scan may be helpful. Soft tissue edema surrounding the amputation site, nonspecific in the setting of recent surgery. 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 WSN: [id number] Ordering Physician: Violet Mina Dictated By: Cristhian Stauffer MD Dictated Date/Time: 11/11/22 8:12 am Reviewed By: Cristhian Stauffer MD Signed By: Cristhian Stauffer MD Signed Date/Time: 11/11/22 8:12 am Transcribed By: ROBERTO Transcribed Date/Time: 11/11/22 7:58 am * Exam Date Time Procedure Performing Provider Status 11/06/22 3:46 AM MRI Pelvis W/O Contrast Eliezer Downing; Modified Notes: (MRI Pelvis W/O Contrast) Reason For Exam: right ischial tuberosity wound, ?osteo;Other: RESULT: MRI Pelvis W/O Contrast MRI Pelvis W/O Contrast CLINICAL INDICATION: Right initial tuberosity wound. IMAGING TECHNIQUE: Exam is incomplete, terminated by the patient due to pain. 3 plane localizer, coronal STIR, coronal T1 and axial T2 fat sat sequences of the bony pelvis were obtained COMPARISON: No prior exams are available for comparison. Correlation is made with left hip radiographs of 11/04/2012 FINDINGS: Bone and bone marrow: No MR evidence of fracture or cortical erosion within the bony pelvis. Patient is status post [id number] amputation of the left lower extremity. Inhomogeneous appearance of the left femoral cortex greatest at the amputation site, and extending to the level of the lesser trochanter best visualized on the axial T2 sequence. Amputation site is not corticated however T1 hyperintense marrow signal within the left femur is relatively preserved. Signs of femoral head avascular necrosis bilaterally. Soft tissues: Soft tissue ulcer extending to the right ischial tuberosity. Hyperintense signal within the soft tissues at the left lower extremity amputation site without definite evidence of drainable collection. T2 hyperintense signal within the distal aspect of the left vastus musculature. No evidence for drainable fluid collections IMPRESSION: Limited exam as described above Soft tissue ulcer extending to the right initial tuberosity without evidence of underlying initial tuberosity osteomyelitis Left lower extremity above the knee amputation Cortical inhomogeneity within the remaining left femoral diaphysis which may represent bone resorption or osteomyelitis. Relative preservation of femoral intramedullary signal Soft tissue edema or cellulitis at the amputation site and within the distal aspect of the vastus musculature. No definite drainable soft tissue abscess collection Femoral head avascular necrosis bilaterally An actionable message ([place]) has been communicated via the [employer] system on 11/06/2022 8:19 AM, Message ID [id number]. WSN: [id number] Ordering Physician: Violet Mina Dictated By: Edgardo Mott Jr, MD Dictated Date/Time: 11/06/22 8:19 am Reviewed By: Edgardo Mott Jr, MD Signed By: Edgardo Mott Jr, MD Signed Date/Time: 11/06/22 8:19 am Transcribed By: ROBERTO Transcribed Date/Time: 11/06/22 8:01 am * Exam Date Time Procedure Performing Provider Status 11/04/22 6:57 PM XR Femur 2 Views Left Rocio Enriquez; Auth (Verified) Notes: (XR Femur 2 Views Left) Reason For Exam: Infection RESULT: Femur 2 Views Left XR Hip w/Pelvis 2-3 View Right, Femur 2 Views Left Hx of Present Illness: pt presenting from PCP office with concerns for possible osteomyelitis due to worsening wounds to buttock and LLE. pt has bilateral wounds to illiac crests, R side unstageable due to tunneling. scabbing sacral wound, and open wound to LLE AKA site; Reason: Other:; infection; Clinical Question(s): Other:; osteomyelitis COMPARISON: Pelvic and bilateral hip radiographs from 12/03/2016 FINDINGS: Status post amputation of the proximal left femoral diaphysis. There is no fracture or dislocation. No osseous erosions. Mild degenerative changes of both hips. Degenerative changes of the lower lumbar spine with surgical clips projecting over the lumbar spine. Surgical clips projecting over both hips. IMPRESSION: Status post amputation of the proximal left femoral diaphysis. No fracture or osseous erosions. WSN: [id number] Ordering Physician: Paola Piedra Dictated By: Daniel Salcedo MD Dictated Date/Time: 11/04/22 7:06 pm Reviewed By: Daniel Salcedo MD Signed By: Daniel Salcedo MD Signed Date/Time: 11/04/22 7:06 pm Transcribed By: ROBERTO Transcribed Date/Time: 11/04/22 7:02 pm * Exam Date Time Procedure Performing Provider Status 11/04/22 6:57 PM XR Hip w/Pelvis 2-3 View Right Travis Enriquez Pepe (Verified) Notes: (XR Hip w/Pelvis 2-3 View Right) Reason For Exam: infection;Other: RESULT: XR Hip w/Pelvis 2-3 View Right XR Hip w/Pelvis 2-3 View Right, Femur 2 Views Left Hx of Present Illness: pt presenting from PCP office with concerns for possible osteomyelitis due to worsening wounds to buttock and LLE. pt has bilateral wounds to illiac crests, R side unstageable due to tunneling. scabbing sacral wound, and open wound to LLE AKA site; Reason: Other:; infection; Clinical Question(s): Other:; osteomyelitis COMPARISON: Pelvic and bilateral hip radiographs from 12/03/2016 FINDINGS: Status post amputation of the proximal left femoral diaphysis. There is no fracture or dislocation. No osseous erosions. Mild degenerative changes of both hips. Degenerative changes of the lower lumbar spine with surgical clips projecting over the lumbar spine. Surgical clips projecting over both hips. IMPRESSION: Status post amputation of the proximal left femoral diaphysis. No fracture or osseous erosions. WSN: [id number] Ordering Physician: Paola Piedra Dictated By: Daniel Salcedo MD Dictated Date/Time: 11/04/22 7:06 pm Reviewed By: Daniel Salcedo MD Signed By: Daniel Salcedo MD Signed Date/Time: 11/04/22 7:06 pm Transcribed By: ROBERTO Transcribed Date/Time: 11/04/22 7:02 pm Vital Signs Most recent to oldest [Reference Range]: 1 2 3 Weight 44.4 kg (11/08/22 10:22 AM) 44.4 kg (11/05/22 2:56 PM) Oxygen Saturation [94-100 %] 100 % (11/13/22 2:13 PM) 99 % (11/13/22 8:15 AM) 98 % (11/13/22 3:02 AM) Pulse Rate [55-90 bpm] 80 bpm (11/13/22 2:13 PM) 76 bpm (11/13/22 8:15 AM) 70 bpm (11/13/22 3:02 AM) Blood Pressure [90-138/55-84 mm Hg] 102/57mm Hg (11/13/22 2:13 PM) 140/76mm Hg *H* (11/13/22 8:15 AM) 135/77mm Hg (11/13/22 3:02 AM) Respiratory Rate [16-30 br/min] 16 br/min (11/13/22 2:13 PM) 18 br/min (11/13/22 8:15 AM) 18 br/min (11/13/22 3:02 AM) Temperature [96.8-100.4 DegF] 98.3 DegF (11/13/22 2:13 PM) 98.1 DegF (11/13/22 8:15 AM) 98.3 DegF (11/13/22 3:02 AM) Liters per Minute 6 L/min (11/08/22 5:30 PM) 6 L/min (11/08/22 5:15 PM) Mode of Delivery (Oxygen) Room air (11/13/22 2:13 PM) Room air (11/13/22 8:15 AM) Room air (11/13/22 3:02 AM) Blood pressure sites Arm, left (11/13/22 2:13 PM) Arm, right (11/13/22 8:15 AM) Arm, left (11/13/22 3:02 AM) Temperature Route Oral (11/13/22 2:13 PM) Oral (11/13/22 8:15 AM) Oral (11/13/22 3:02 AM) Weight Obtained Via Bed scale (11/05/22 2:00 PM) Social History Social History Type Response Smoking Status 10 or more cigarette s (1/2 pack or more)/day in last 30 days; Other: 2 PPD; entered on: 11/04/22 Sex Admission evaluation note * Keeley PAN, Violet An: PERFORM, MODIFY Event Display: Admission Note Authored Date: Patient: ??JAIME CYR ? Age:??67 Years?Sex:??Male?:??1955?? Chief Complaint/Reason for Consultation Multiple wounds, sent from PCP for concern for osteomyelitis History of Present Illness Mr. Cyr is a 67-year-old male with past medical history of substance use (heroin),??atrial fibrillation, CAD history of VA,??COPD, history of stroke, hypertension, hyperlipidemia, CHF,??seizure disorder,??with chronic wounds,??who is noncompliant with all medications,??who??saw his PCP today??secondary to??multiple wounds, and was sent to the ED for further evaluation for possible osteomyelitis.?? He reports his wounds have been present for over 4-5 months.?? He has wounds of the right heel, right ischial tuberosity/buttock, sacrum, left buttock/hip, and left AKA stump.?? He reports that the wounds do cause him pain.?? He otherwise denies a full review of systems.?? On arrival in the ED, vital signs are stable.?? Laboratory studies are significant for white blood cell count of 13.7, H&H showed anemia, 12.7/39.8.?? X-rays of the left stump and pelvis showed no bony abnormalities.?? Patient was given IV vancomycin and Zosyn, and care was transferred to internal medicine team for admission. Review of Systems General: Denies lightheadedness, dizziness HEENT:?? Denies headache, runny nose, sore throat Cardiac:?? Denies chest pain or palpitations Respiratory:?? Denies SOB or cough Abdomen:?? Denies nausea, vomiting, abdominal pain, diarrhea, or constipation :?? Denies hematuria or dysuria Skin:?? Wounds of the right heel, right ischial tuberosity/buttock, sacrum, left buttock/hip, and left AKA stump Objective ? Vital Signs?? Temperature: 97.9 DegF (11/04/22 21:53:00) Temperature Route: Oral (11/04/22 21:53:00) Pulse Rate: 71 bpm (11/04/22 21:53:00) Respiratory Rate: 20 br/min (11/04/22 16:49:00) Systolic Blood Pressure:??149 mm Hg??High (11/04/22 21:53:00) Diastolic Blood Pressure: 81 mm Hg (11/04/22 21:53:00) Blood pressure sites: Arm, right (11/04/22 21:53:00) Mean Arterial Pressure: 104 mm Hg (11/04/22 21:53:00) Pulse Pressure: 68 mm Hg (11/04/22 21:53:00) Oxygen Saturation: 95 % (11/04/22 21:53:00) Mode of Delivery (Oxygen): Room air (11/04/22 21:53:00) Early Warning Score: 5 (11/04/22 21:53:56) ? Intake/Output? No Data Available ?? Precautions No Precautions documented.? Physical Exam Physical Exam: General: No apparent distress, appears??older than stated age, awake, alert, cooperative with exam Head/Neck/Throat: Normocephalic, atraumatic, moist mucous membranes Eyes: Sclera anicteric, EOMI Thorax: Scattered wheezing bilaterally, no respiratory distress Cardiovascular: Regular rate and rhythm, no murmurs rubs or gallops, no peripheral edema Abdomen: Soft, nontender, non-distended, normoactive bowel sounds Musculoskeletal: Left [id number]-[id number]-dggz amputation Skin: Left AKA??with scabbed wound, left??hip/buttock??with??shallow wound??with mild erythema,??sacrum??with 2 x 5 cm??scabbed wound,??right??ischial tuberosity/buttock??with??tunneling??1.5 cm diameter??wound??with surrounding erythema,??right??shallow heel wound Neurologic: Alert and oriented x3, no focal neurological deficits, no facial droop Psychiatric: Normal affect Assessment/Plan Diagnoses Cellulitis ??(L03.90) 1. ??Infected decubitus ulcer ??(L89.90) 2. ??Noncompliance with medications ??(Z91.14) 3. ??Failure to thrive in adult ??(R62.7) 4. ??Substance abuse ??(F19.10) 5. ??Atrial fibrillation ??(I48.91) 6. ??CAD - Coronary artery disease ??(I25.10) 7. ??COPD - Chronic obstructive pulmonary disease ??(J44.9) 8. ??Hypercholesterolemia ??(E78.00) 9. ??Hypertension ??(I10) 10. ??Seizure disorder ??(G40.909) 11. ??PAD (peripheral artery disease) ??(I73.9) 12. ??PVD (peripheral vascular disease) ??(I73.9) 13. ??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 ??(I50.40) ?? Assessment:??67-year-old male with past medical history of substance use (heroin), atrial fibrillation, CAD history of VA, COPD, history of stroke, hypertension, hyperlipidemia, CHF, seizure disorder, with chronic wounds, who is noncompliant with all medications, who saw his PCP today secondary to multiple wounds, and was sent to the ED for further evaluation for possible osteomyelitis ?? Infected decubitus ulcer (L89.90):??Patient with multiple wounds: right heel, right ischial tuberosity/buttock, sacrum, left buttock/hip, and left AKA stump PCP was concern for osteomyelitis regarding the right ischial tuberosity wound, which is tunneling,and the??left??stump wound -MRI of the left-lower extremity stump,??MRI of??pelvis??for right ischial tuberosity -Wound care nurse consult -Continue IV vancomycin and Zosyn -Wound culture obtained from the right tunneling??ischial tuberosity wound ?? Noncompliance with medications (Z91.14):??Patient does not take any of his home medications -Social work consult ?? Failure to thrive in adult (R62.7):??Patient with failure to thrive, likely secondary to noncompliance -Customer Experience Manager consultation??ordered ?? Substance abuse (F19.10):??Patient uses 5 bags of heroin per day, reports that he has not experienced withdrawal -Addiction medicine consultation placed ?? Atrial fibrillation (I48.91):? CAD - Coronary artery disease (I25.10):? COPD - Chronic obstructive pulmonary disease (J44.9):? Hypercholesterolemia (E78.00):? Hypertension (I10):? Seizure disorder (G40.909):? PAD (peripheral artery disease) (I73.9):? PVD (peripheral vascular disease) (I73.9):? 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 (I50.40):??As above, patient does not take any of his home medications, which he reports is secondary to cost I have restarted aspirin 81 mg daily, and atorvastatin 40 mg daily Hesitant??to restart antiseizure medications??given??that he is unlikely??to continue these upon discharge Concerning that patient??does not take??anticoagulation given his atrial fibrillation and history of stroke, however??unsure??what benefit would be of restarting during hospitalization??given??ongoing noncompliance Defer to rounding team regarding??resuming other medications ?? VTE Prophylaxis:??Lovenox 40 mg subcu daily ?VTE Prophylaxis Assessment:??VTE Prophylaxis Ordered ?? Code Status:??DNR: Confirmed with patient,??I did explain the meaning of this time to him and he??is adamant that he would not want to be resuscitated in the setting of cardiac arrest. ?Order Code Status:??Code Status Ordered ?? Diet:??Cardiac?I personally spent a total of??75 minutes reviewing the chart, notes, images, and labs, speaking with nurses, examining and interviewing the patient, placing orders, reconciling medications, anddocumenting in the medical record. ?? Patient was seen on 11/04/2022. Histories Allergies Allergies ?(Active and Proposed Allergies Only) Vioxx? (Severity: Mild, Onset: Unknown) ?Reactions: Hypertension ? Past Medical History/Problem List Active Problems??(31) Adenomatous polyposis coli Anemia Anxiety Arm weakness Arterial insufficiency Atrial fibrillation Bilateral Subclavian artery stenosis CABG x 2 - Coronary artery bypass grafts x 2 CAD - Coronary artery disease Carotid artery stenosis, total occlusion of Left ICA Cervical spondylosis COPD - Chronic obstructive pulmonary disease CVA - Cerebrovascular accident/TIA w/no residual CVD (cerebrovascular disease) GERD (gastroesophageal reflux disease) Glaucoma H/O herpes zoster Hypercholesterolemia Hypertension Insomnia Low back pain Old myocardial infarction, NSTEMI Opiate dependence 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 Past Surgical History Left common femoral to left axillary bypass graft using 8-mm ring Propaten [place]- Anthony graft.: 09/04/16 Coronary bypass grafting x2 with LEE to LAD and radial to obtuse marginal coronary artery and epiaortic probing of ascending aorta and placement of right pleural thoracostomy tube for pneumothorax.:05/18/09 Cardiac catheterization: 04/19/09 Colonoscopy: 07/2005 Colonoscopy polypectomy: 05/2005 Debridement, muscle and/or fascia (includes epidermis, dermis, and subcutaneous tissue, if performed); first 20 sq cm or less Hernia repair Bypass graft, with other than vein; femoral-popliteal, bilateral fem aortic bypass ? Social History Alcohol Details:??Use: Past. Employment/School Details:??Status: Disabled. Exercise Details:??Self assessment: Poor condition. Home/Environment Details:??Living situation: Home with assistance. ??Lives with: Spouse. Nutrition/Health Details:??Diet: Regular. Substance Abuse Details:??Use: Current. ??Type: Heroin. ??Other: 5 bags of heroin/day. Tobacco Details:??Use: 10 or more cigarettes (1/2 pack or more)/day in last 30 days. ??Other: 2 PPD. ? Family History Mother (): Bone cancer; Hyperlipidemia Father (): CAD - Coronary artery disease; Hyperlipidemia Brother: Alcoholism; CAD - Coronary artery disease; Hepatitis C; Hyperlipidemia Brother: Hyperlipidemia Other: Hyperlipidemia ?? Medications Home Medications Acetaminophen (acetaminophen 325 mg oral tablet)?650?Milligram?By Mouth?Every 4 hours?as needed?Pain , Mild Albuterol (albuterol 90 mcg/inh inhalation powder)?2?puff(s)?Inhalation?Every 4 hours?as needed?as needed Albuterol (Albuterol (Eqv-Proventil HFA) 90 mcg/inh inhalation aerosol)?2?puff(s)?Inhalation?Every 6 hours apixaban (Eliquis 5 mg oral tablet)?1?tab(s)?5?Milligram?By Mouth?2 times a day?for 30?Days Aspirin (aspirin 81 mg oral delayed release tablet)?1?tab(s)?81?Milligram?By Mouth?Daily Atorvastatin (atorvastatin 40 mg oral tablet)?See Instructions?TAKE 1 TABLET BY MOUTH DAILY Cholecalciferol (Vitamin D3 10,000 intl units oral capsule)?1?capsule?250?Microgram?By Mouth?Every week?for 6?week(s) Clonidine (cloNIDine 0.1 mg oral tablet)?0.1?Milligram?1?tablet?By Mouth?2 times a day Collagenase Topical (collagenase topical 250 u/gm ointment)?1?tyler?Topically?Daily?apply moist dressing over the santyl, triad cream on surrouding skin and DSD over all Docusate (Colace sodium 100 mg oral capsule)?100?Milligram?1?capsule?By Mouth?2 times a day Durable Medical Equipment (Nutritional Supplements)?Ensure?Oral?3 times a day levETIRAcetam (Keppra 500 mg oral tablet)?1?tab(s)?500?Milligram?By Mouth?2 timesa day Lidocaine Topical (lidocaine 5% topical film)?Topically?Daily Melatonin (melatonin 3 mg oral tablet)?9?Milligram?By Mouth?Daily at bedtime Metoprolol (Metoprolol Succinate ER 25 mg oral tablet, extended release)?1?tab(s)?By Mouth?Daily Multivitamin With Minerals (Multivit Therapeutic/Minerals Tablet)?1?tab(s)?By Mouth?Daily Omeprazole (omeprazole 20 mg oral delayed release tablet)?1?tab(s)?20?Milligram?By Mouth?Daily in AM Pentoxifylline (pentoxifylline 400 mg oral tablet, extended release)?1?tablet?By Mouth?3 times a day Polyethylene Glycol 3350 (MiraLax oral powder for reconstitution)?17?gram?By Mouth?Daily?dissolve in water before taking ? Inpatient Medications Medications (17) Active SCHEDULED: (9) Aspirin 81 mg EC Tablet (aspirin 81 mg oral delayed release tablet) ??81 mg, By Mouth, Daily Atorvastatin 40 mg Tablet (atorvastatin 40 mg oral tablet) ??40 mg, By Mouth, Daily at bedtime Enoxaparin 40 mg Inj (Enoxaparin Inj) ??40 mg 0.4 mL, Subcutaneous Injection, Daily NaCl 0.9% Flush 3ml (NaCL 0.9% Flush) ??3 mL, IV Push, Every 8 hours Nicotine 21 mg / 24 hour Patch (Nicotine Topical) ??21 mg, Topically, Daily Piperacillin/Tazobactam 3.375 Gm Inj (Zosyn Extended IVPB) ??3.375 Gm, IVPB, Every 8 hours Remove Patch (Remove ??Patch) ??1 each, Topically, Daily Saccharomyces Boulardii Lyo 250 mg Caps (saccharomyces boulardii lyo 250 mg oral capsule) ??250 mg,By Mouth, 2 times a day Vancomycin (Vancomycin IVPB) ??15 mg/kg, IVPB, Every 24 hours CONTINUOUS: (0) PRN: (8) Acetaminophen 325 mg Tablet (Acetaminophen Tablet) ??650 mg, By Mouth, Every 4 hours Albuterol 90mcg/Inhalation Inhaler HFA (albuterol CFC free 90 mcg/inh inhalation aerosol) ??180 mcg2 puffs, Inhalation, Every 4 hours Dextromethorphan-Guaifenesin 20 mg-200 mg/10 mL Liqu UD (Robitussin DM Liquid) ??10 mL, By Mouth, Every 4 hours Melatonin 3 mg Tablet (Melatonin Tablet) ??3 mg, By Mouth, Daily at bedtime NaCl 0.9% Flush 3ml (NaCL 0.9% Flush) ??3 mL, IV Push, Every 8 hours Polyethylene Glycol 17 Gm Powder (MiraLax Powder) ??17 Gm 1 pack/packet, By Mouth, Daily Senna 8.6 mg / Docusate 50 mg tablet (Docusate/Senna Tablet) ??1 tablet, By Mouth, 2 times a day Simethicone 80 mg Chewable Tablet (Simethicone Tablet) ??80 mg, Chew, 3 times a day ?? Results Recent Labs BLOOD COUNT & DIFF WBC 13.7 k/mm3 (High)?? 11/04/2022 17:58 RBC 5.05 m/mm3 ()?? 11/04/2022 17:58 Hgb 12.7 Gm/dL (Low)?? 11/04/2022 17:58 Hct 39.8 % (Low)?? 11/04/2022 17:58 MCV 78.8 femtoliters (Low)?? 11/04/2022 17:58 MCH 25.1 pg (Low)?? 11/04/2022 17:58 MCHC 31.9 g/dL (Low)?? 11/04/2022 17:58 Platelet Count 175 k/mm3 ()?? 11/04/2022 17:58 RDW-SD 49.5 femtoliters (High)?? 11/04/2022 17:58 MPV 9.8 femtoliters ()?? 11/04/2022 17:58 Nucleated RBC (Automated) 0.0 #/100 WBC'S ()?? 11/04/2022 17:58 Abs. NRBC 0.0 k/mm3 ()?? 11/04/2022 17:58 Abs. Neut 8.9 k/mm3 (High)?? 11/04/2022 17:58 Abs. Lymph 2.0 k/mm3 ()?? 11/04/2022 17:58 Abs. Beaver 1.7 k/mm3 (High)?? 11/04/2022 17:58 Abs. Eo 0.9 k/mm3 (High)?? 11/04/2022 17:58 Abs. Baso 0.1 k/mm3 ()?? 11/04/2022 17:58 Neut % 65.3 % ()?? 11/04/2022 17:58 Lymph % 14.9 % (Low)?? 11/04/2022 17:58 Beaver % 12.1 % (High)?? 11/04/2022 17:58 Eos % 6.3 % (High)?? 11/04/2022 17:58 Baso % 0.7 % ()?? 11/04/2022 17:58 Platelet Estimate ADEQUATE ()?? 11/04/2022 17:58 Imm Gran 0.7 % ()?? 11/04/2022 17:58 Abs. Imm Gran 0.1 k/mm3 ()?? 11/04/2022 17:58 ?? CHEM GENERAL Sodium 135 mmol/L ()?? 11/04/2022 17:58 Potassium 4.3 mmol/L ()?? 11/04/2022 17:58 Chloride 99 mmol/L ()?? 11/04/2022 17:58 Bicarbonate Level 25 mmol/L ()?? 11/04/2022 17:58 Anion Gap 11 ()?? 11/04/2022 17:58 Glucose Level 80 mg/dL ()?? 11/04/2022 17:58 BUN 10 mg/dL ()?? 11/04/2022 17:58 Creatinine-Blood 0.8 mg/dL ()?? 11/04/2022 17:58 Estimated GFR Creatinine 95 ML/MIN/1.73 M2 ()?? 11/04/2022 17:58 Calcium 9.1 mg/dL ()?? 11/04/2022 17:58 Calcium, Ionized pH Corrected 1.19 mmol/L ()?? 11/04/2022 17:58 Magnesium 2.2 mg/dL ()?? 11/04/2022 17:58 ?? COAG INR 1.1 ()?? 11/04/2022 17:58 Protime (PT) 11.2 seconds ()?? 11/04/2022 17:58 APTT 29.3 seconds ()?? 11/04/2022 17:58 ?? MISC. CHEMISTRY Hold Green Top SPECIMEN DISCARDED AFTER 1 WEEK ()?? 11/04/2022 17:58 ?? VIROLOGY COVID-19 by RT-PCR NEGATIVE ()?? 11/04/2022 18:22 ? Imaging(s) ?XR Femur 2 Views Left ?? 11/04/2022 18:57??by Daniel Salcedo MD ?IMPRESSION: Status post amputation of the proximal left femoral diaphysis. No fracture or osseous erosions. ?XR Hip w/Pelvis 2-3 View Right ?? 11/04/2022 18:57??by Daniel Salcedo MD ?IMPRESSION: Status post amputation of the proximal left femoral diaphysis. No fracture or osseous erosions. ? Microbiology(s) ?COVID-19 by RT-PCR ?? 11/04/2022 18:22 ? Cardiology * Event Display: Cardiac Rhythm Strips Authored Date: Hospital Progress note * Christina Higgins: MODIFY, PERFORM, MODIFY Event Display: Progress Note Hospital Authored Date: Patient: ??JAIME CYR ? Age:??67 Years?Sex:??Male?:??1955?? Subjective Reason for Follow-up: L stump infection ?? Interval Events: Interval events reviewed.?? The patient has remained afebrile and hemodynamically stable.?? Tissue from the OR grew VRE, bone culture from the OR remains negative. States today is his anniversary, wants to go home. ?? Antimicrobials: Daptomycin 200 mg daily 11/11???present Piperacillin/tazobactam 11/04-11/11 Vancomycin 11/05-11/11 ?Review of Systems ??He denies fever, rigors, abdominal pain, nausea, vomiting, diarrhea, or rash. Objective Vitals & Measurements T:??98.1?F?? TMIN:??97.9?F?? TMAX:??98.9?F?? HR:??76??(Peripheral)?? RR:??18?? BP:??140/76?? SpO2:??99%?? Physical Exam GENERAL: Chronically ill appearing man in no acute distress HEENT: Anicteric, no subconjunctival petechiae, moist oral mucosa without lesions or thrush, poor dentition CARDIOVASCULAR: Regular rate and rhythm.??No peripheral edema.?? RESPIRATORY: Lungs clear to auscultation GASTROINTESTINAL: Non-distended, normoactive bowel sounds, non-tender GENITOURINARY: [place] cath SKIN: ??No diffuse rash present, wounds not unbandaged MUSCULOSKELETAL: Left AKA stump with fabian, no surrounding erythema or drainage NEUROLOGICAL/PSYCH: A&Ox3, grossly intact LINES: Peripheral IV? Microbiology/ID Work-up: ??? Tissue left AKA wound 11/08: VRE ?? ORGANISM? 1+ ENTEROCOCCUS FAECIUM, VANCOMYCIN RESISTANT.?? These AST results were performed on the Vitek 2 ID and AST system METHOD?MIN. INHIB. CONC. (MCG/ML) AMPICILLIN? RESISTANT LINEZOLID?SUSCEPTIBLE VANCOMYCIN? RESISTANT GENTAMICIN SYNERGY?SUSCEPTIBLE STREPTOMYCIN SYNERGY SUSCEPTIBLE ?? ORGANISM? 1+ ENTEROCOCCUS FAECIUM, VANCOMYCIN RESISTANT.?? These AST results were performed on the [employer] 2 ID and AST system METHOD?ETEST GRADIENT STRIP (MCG/ML) DAPTOMYCIN? SUSCEPTIBLE ?Tissue left AKA bone 11/08: No cells or organisms on Gram stain, culture negative ??? Swab right buttock wound 11/05: MRSA Lab Results Test Name Test Result Date/Time WBC 14.2 k/mm3 11/12/2022 00:58 EDT RBC 4.58 m/mm3 11/12/2022 00:58 EDT Hgb 11.4 Gm/dL 11/12/2022 00:58 EDT Hct 36.0 % 11/12/2022 00:58 EDT MCV 78.6 femtoliters 11/12/2022 00:58 EDT MCH 24.9 pg 11/12/2022 00:58 EDT MCHC 31.7 g/dL 11/12/2022 00:58 EDT Platelet Count 197 k/mm3 11/12/2022 00:58 EDT RDW-SD 51.7 femtoliters 11/12/2022 00:58 EDT MPV 10.1 femtoliters 11/12/2022 00:58 EDT Nucleated RBC (Automated) 0.0 #/100 WBC'S 11/12/2022 00:58 EDT Abs. NRBC 0.0 k/mm3 11/12/2022 00:58 EDT Abs. Neut 6.9 k/mm3 11/12/2022 00:58 EDT Abs. Lymph 4.4 k/mm3 11/12/2022 00:58 EDT Abs. Beaver 1.7 k/mm3 11/12/2022 00:58 EDT Abs. Eo 0.9 k/mm3 11/12/2022 00:58 EDT Abs. Baso 0.2 k/mm3 11/12/2022 00:58 EDT Neut % 48.8 % 11/12/2022 00:58 EDT Lymph % 31.2 % 11/12/2022 00:58 EDT Beaver % 12.2 % 11/12/2022 00:58 EDT Eos % 6.3 % 11/12/2022 00:58 EDT Baso % 1.1 % 11/12/2022 00:58 EDT RBC Morphology SLIGHT 11/12/2022 00:58 EDT Imm Gran 0.4 % 11/12/2022 00:58 EDT Abs. Imm Gran 0.1 k/mm3 11/12/2022 00:58 EDT Sodium 144 mmol/L 11/12/2022 01:00 EDT Potassium 4.0 mmol/L 11/12/2022 01:00 EDT Chloride 111 mmol/L 11/12/2022 01:00 EDT Bicarbonate Level 20 mmol/L 11/12/2022 01:00 EDT Anion Gap 13 11/12/2022 01:00 EDT Glucose Level 140 mg/dL 11/12/2022 01:00 EDT BUN 18 mg/dL 11/12/2022 01:00 EDT Creatinine-Blood 0.9 mg/dL 11/12/2022 01:00 EDT Estimated GFR Creatinine 91 ML/MIN/1.73 M2 11/12/2022 01:00 EDT Calcium 8.7 mg/dL 11/12/2022 01:00 EDT Assessment/Plan Assessment:??This is a??67-year-old man with??a history of??CAD s/p CABG, CVA, A-fib, COPD, HTN, opioid and tobacco dependence, chronic decubitus ulcers, 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 Of concern,??a right hip wound had drainage on arrival with MRSA on culture. There was reportedly no exposed bone and an MRI of the pelvis on 11/06 was without evidence of underlying osteomyelitis. The L stump wound was also concerning with some surrounding erythema, discomfort, and foul smelling odor. The AKA wound probed to the femur and MRI on 11/06 revealed a bony abnormality, possibly bone resorption versus osteomyelitis. He was brought to the OR with on 11/08 for a revision of the left AKA. A culture of tissue from the OR grew VRE, and a culture of the bone was negative. A postoperative MRI on 11/10 again revealed an abnormality, though atypical for osteomyelitis. ?? Treating for a soft tissue left AKA stump infection due to VRE and a possible??right hip soft tissue wound infection due to MRSA. ? Recommendations: -Can transition to linezolid 600mg PO twice/day to complete 14 days from the OR on 11/08 (end date 11/21) ? ID will sign-off at this time. Thank you for the consultation. Please call if any questions arise. ?? Christina Casarez PA-C Infectious Diseases Discussed with Dr. Riley ?? * Valentine Kohli RN: MODIFY, PERFORM, SIGN, VERIFY, SIGN Event Display: Progress Note Hospital Authored Date: Patient: JAIME CYR Age: 67 years Sex: Male : 1955 Associated Diagnoses: None Author: Valentine Kohli RN Findings Nursing Data Evaluation A&O x4, flat affect, intermittently refusing care. VSS, on RA. Pt educated on the importance ofkeeping his new L AKA incision site C/D/I and dressing in place, continues to remove dressing, incision site cleaned per order. Pt agreeable to work with PT today, this RN and PT got pt OOB to chair and around room, tolerated Ax1 with RW. IV abx given per JUL. Plan for d/c home tomorrow. See biophysical for detailed assessment. Fall and safety precautions maitnained, bed/chair alarm on, call bellwithin reach, hourly rounding maintained, WCTM. Discharge Information Rehabilitation Discharge : Rehab Discharge Index 11/10/2022 8:55 EDT Comments on treatment indicated 67 y/o M saw his PCP today secondary to multiple wounds, and was sent to the ED for further evaluation for possible osteomyelitis of his multiple wounds: right heel, right ischial tuberosity/buttock, sacrum, left buttock/hip, and left AKA stump. WBAT Full chart review completed Yes Hospital course see comment Other findings Pt is a moderate complexity evaluation as circumstances leading to hospitalization impact POC and functional mobility. Plan of care PT Gait training, Transfer training, Therapeutic exercise, Functional Activities, Balance training, Neuromuscular education * Shankar DILL, Sylwia: PERFORM Event Display: Progress Note Hospital Authored Date: Patient: ??JAIME CYR ? Age:??67 Years?Sex:??Male?:??1955?? Subjective Kidney normal, discontinue IV fluid and encourage oral intake Called lab??final??culture report might be ready tomorrow Blood pressure high??in few reading, follow-up Review of Systems All review of systems negative except above Objective Measurements?? Weight: 44.4 kg (11/08/22) ?? Vital Signs?? Temperature: 98 DegF (11/12/22 11:54:00) Temperature Route: Oral (11/12/22 11:54:00) Pulse Rate: 83 bpm (11/12/22 11:54:00) Respiratory Rate: 18 br/min (11/12/22 11:54:00) Systolic Blood Pressure:??153 mm Hg??High (11/12/22 11:54:00) Diastolic Blood Pressure: 84 mm Hg (11/12/22 11:54:00) Blood pressure sites: Arm, right (11/12/22 11:54:00) Mean Arterial Pressure: 107 mm Hg (11/12/22 11:54:00) Pulse Pressure: 69 mm Hg (11/12/22 11:54:00) Oxygen Saturation: 95 % (11/12/22 11:54:00) Mode of Delivery (Oxygen): Room air (11/12/22 11:54:00) Early Warning Score: 2 (11/12/22 11:57:31) ? Intake/Output? 11/04 21:43 11/12 07:00 07 07:00 07 07:00 07 07:00 ?? 11/12 16:34 11/12 16:34 04 06:59 07/03 06:59 07 06:59 Intake ? 3730 ?720 ?630 ?870 ?150 Output ? 4450 ?600 ? 1000 ?350 ?350 Net Total ? -720 ?120 ? -370 ?520 ? -200 ? Urine Count ?5 ?1 ?0 ?2 ?2 ? Physical Exam ??General?NAD, AAO-sleeping, arousable HEENT?PERRLA, oropharynx clear, moist mucus membranes Pulm?CTA bilaterally, no wheezes/rhonchi/rales CV?RRR, +S1/S2, no murmurs/rubs GI?Soft, nontender, nondistended, no organomegaly, bowel sounds are present Neuro?Moves all extremities MS?no obvious deformity Psych?Mood appropriate to situation ?? Left above-knee amputation with fabian in place,??no signs of infection _ Inpatient Medications Medications (21) Active SCHEDULED: (12) Apixaban 5 mg Tablet (Eliquis) ??5 mg, By Mouth, 2 times a day Aspirin 81 mg EC Tablet (aspirin 81 mg oral delayed release tablet) ??81 mg, By Mouth, Daily Atorvastatin 40 mg Tablet (atorvastatin 40 mg oral tablet) ??40 mg, By Mouth, Daily at bedtime Collagenase Topical Oint (30 Gm) (Santyl Topical Oint) ??1 application, Topically, Daily Daptomycin 500 mg Inj (DAPTOmycin Inj) ??200 mg 4 mL, IV Push Slowly, Every 24 hours Melatonin 3 mg Tablet (Melatonin Tablet) ??6 mg, By Mouth, Once Multivitamin Therapeutic / Minerals Tablet (Multivit Therapeutic/Minerals Tablet) ??1 tablet, By Mouth, Daily NaCl 0.9% Flush 3ml (NaCL 0.9% Flush) ??3 mL, IV Push, Every 8 hours Nicotine 21 mg / 24 hour Patch (Nicotine Topical) ??21 mg, Topically, Daily Remove Patch (Remove ??Patch) ??1 each, Topically, Daily Saccharomyces Boulardii Lyo 250 mg Caps (saccharomyces boulardii lyo 250 mg oral capsule) ??250 mg,By Mouth, 2 times a day Vashe Wound Care Emollient/Cleanser (Vashe Topical Solution) ??475 mL, Topically, Daily CONTINUOUS: (0) PRN: (9) Acetaminophen 325 mg Tablet (Acetaminophen Tablet) ??650 mg, By Mouth, Every 4 hours Albuterol 90mcg/Inhalation Inhaler HFA (albuterol CFC free 90 mcg/inh inhalation aerosol) ??180 mcg2 puffs, Inhalation, Every 4 hours Dextromethorphan-Guaifenesin 20 mg-200 mg/10 mL Liqu UD (Robitussin DM Liquid) ??10 mL, By Mouth, Every 4 hours Melatonin 3 mg Tablet (Melatonin Tablet) ??3 mg, By Mouth, Daily at bedtime NaCl 0.9% Flush 3ml (NaCL 0.9% Flush) ??3 mL, IV Push, Every 8 hours OxyCODONE 5 mg IR Tablet (oxyCODONE 5 mg oral tablet) ??5 mg, By Mouth, Every 6 hours Polyethylene Glycol 17 Gm Powder (MiraLax Powder) ??17 Gm 1 pack/packet, By Mouth, Daily Senna 8.6 mg / Docusate 50 mg tablet (Docusate/Senna Tablet) ??1 tablet, By Mouth, 2 times a day Simethicone 80 mg Chewable Tablet (Simethicone Tablet) ??80 mg, Chew, 3 times a day ? 72 Hour Antibiotic History Active Antibiotics Calendar Day Last Administered First Administered Daptomycin??200 mg, 4 mL, IV Push Slowly, Every 24 hours ?2 11/11/2022 14:41 11/11/2022 14:41 ? Stopped Antibiotics Stop Date/Time Last Administered First Administered Vancomycin??750 mg, 150 mL, 150 mL/hr, IVPB, Every 24 hours 11/11/2022 11:44 11/11/2022 10:15 11/06/2022 08:37 Piperacillin-Tazobactam??3.375 Gm, 25 mL/hr, IVPB, Every 8 hours 11/11/2022 11:44 11/11/2022 04:00 11/05/2022 00:46 ? Results Abnormal Labs ?? BLOOD COUNT & DIFF ??Abs. Baso ??0.2 k/mm3 (High) ??11/12/2022 00:58 ??Abs. Eo ??0.9 k/mm3 (High) ??11/12/2022 00:58 ??Abs. Imm Gran ??0.1 k/mm3 () ??11/12/2022 00:58 ??Abs. Lymph ??4.4 k/mm3 (High) ??11/12/2022 00:58 ??Abs. Beaver ??1.7 k/mm3 (High) ??11/12/2022 00:58 ??Abs. NRBC ??0.0 k/mm3 () ??11/12/2022 00:58 ??Eos % ??6.3 % (High) ??11/12/2022 00:58 ??Hct ??36.0 % (Low) ??11/12/2022 00:58 ??Hgb ??11.4 Gm/dL (Low) ??11/12/2022 00:58 ??Imm Gran ??0.4 % () ??11/12/2022 00:58 ??MCH ??24.9 pg (Low) ??11/12/2022 00:58 ??MCHC ??31.7 g/dL (Low) ??11/12/2022 00:58 ??MCV ??78.6 femtoliters (Low) ??11/12/2022 00:58 ??Beaver % ??12.2 % (High) ??11/12/2022 00:58 ??Nucleated RBC (Automated) ??0.0 #/100 WBC'S () ??11/12/2022 00:58 ??RBC ??4.58 m/mm3 (Low) ??11/12/2022 00:58 ??RBC Morphology ??SLIGHT () ??11/12/2022 00:58 ??RDW-SD ??51.7 femtoliters (High) ??11/12/2022 00:58 ??WBC ??14.2 k/mm3 (High) ??11/12/2022 00:58 ? CHEM GENERAL ??Bicarbonate Level ??20 mmol/L (Low) ??11/12/2022 01:00 ??Chloride ??111 mmol/L (High) ??11/12/2022 01:00 ??Estimated GFR Creatinine ??91 ML/MIN/1.73 M2 () ??11/12/2022 01:00 ??Glucose Level ??140 mg/dL (High) ??11/12/2022 01:00 ? Note: Critical results are displayed in red. ? Assessment/Plan This is a 67 yo gentleman with complex??past medical history of substance use (heroin), atrial fibrillation, CAD history of VA, COPD, history of stroke (previously on apixaban, would like to resume)??hypertension, hyperlipidemia, CHF, seizure disorder,??and chronic wounds, recently off all medications d/t financial issue per his report. He??saw PCP 11/04 for multiple wounds, and was sent to the EDfor further evaluation for possible osteomyelitis. MRI pending. ? Osteomyelitis ,left femoral diaphysis left AKA stump infection Infected decubitus ulcer Patient with multiple wounds: right heel, right ischial tuberosity/buttock, sacrum, left buttock/hip, and left AKA stump concern for osteomyelitis regarding the right ischial tuberosity wound, which is tunneling, and theleft stump wound ?? MRI of the left-lower extremity stump, MRI of pelvis for right ischial tuberosity Soft tissue ulcer extending to the right initial tuberosity without evidence of underlying initial tuberosity osteomyelitis Cortical inhomogeneity within the remaining left femoral diaphysis which may represent bone resorption or osteomyelitis. Relative preservation of femoral intramedullary signal Soft tissue edema or cellulitis at the amputation site and within the distal aspect of the vastus musculature. No definite drainable soft tissue abscess collection Femoral head avascular necrosis bilaterally ?? Repeat MRI on 11/11 stable ?? -S/p left AKA stump revision, closed with fabian 11/08 -Vascular singed off -ID and wound care on board. -Heel offloading of the RLE -Switching antibiotic to daptomycin -Wound culture was obtained from the right tunneling ischial tuberosity wound, f/u results -Follow up Blood cultures? Noncompliance with medications ??financial issues making it??difficult to??obtain meds;??recent self-neglect ??Social work consult ? Failure to thrive in adult Patient with failure to thrive, likely secondary to noncompliance Customer Experience Manager consultation ordered ? Substance abuse Patient uses 5 bags of heroin per day,??cessation advised -Refused to see addiction medicine correction worker consult ? [id number] -Restarted aspirin, Eliquis, statin -Continue medication optimization, patient has no complaints ?? H/o seizure: Patient has history of seizure with last seizure 1 month ago, did not tell me if that was part of withdrawal-refused to answer.?? Per chart patient??was on Keppra at some point however no refill since 2020. Needs further assessment COPD-exacerbation ? VTE Prophylaxis:??Eliquis Code Status: DNR ?? OMN: IV antibiotics osteomyelitis,??following c/s-pending final culture??from the OR tissue, calledlab tomorrow and they said final report will be tomorrow. ? Note * Zohra Campos RN: PERFORM Event Display: Discharge/Transfer Note Hospital Authored Date: [id number] Nursing Discharge Note Entered On: 11/13/2022 16:14 EDT Performed On: 11/13/2022 16:13 EDT by Zohra Campos RN Nursing Discharge Note 2 Discharge Time : 11/13/2022 16:13 EDT Discharge Level of Care at Discharge : Home/Senior Care/Foster Care Patient Left Unit Via : Wheelchair Patient Accompanied Off Unit with : Other: uber DC Instructions Provided & Signed by Pt : Yes Patient Understands D/C Instructions : Yes Verbalized Understanding of D/C Plan By : Patient Patient Instructions Discharge Signed : Yes Discharge Comments : patient sent home with Uber as chairvan and ambulance were not covered and patient did not want to pay. Did Pt have Specialty Bed or Wound Vac : Yes Andres ALFORD, Zohra - 11/13/2022 16:13 EDT * Sindy DILL, Odalys: PERFORM Event Display: Discharge/Transfer Note Hospital Authored Date: [id number] Patient: ??JAIME CYR ? Age:??67 Years?Sex:??Male?:??1955?? Patient Information Discharge Location: Primary Care Physician: Tony Rhodes MD Admit Date/Time: 11/04/22 21:43 Discharge Disposition Discharge Disposition: Home: No Services Discharge Diagnosis Infected decubitus ulcer (L89.90) Noncompliance with medications (Z91.14) Failure to thrive in adult (R62.7) Substance abuse (F19.10) Atrial fibrillation (I48.91) CAD - Coronary artery disease (I25.10) COPD - Chronic obstructive pulmonary disease (J44.9) Hypercholesterolemia (E78.00) Hypertension (I10) Seizure disorder (G40.909) PAD (peripheral artery disease) (I73.9) PVD (peripheral vascular disease) (I73.9) 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 (I50.40) Cellulitis (L03.90) Decubitus ulcer of right ischium, stage 3 (L89.313) Dehiscence of surgical wound (T81.31XA) Hx of above knee amputation (Z89.619) Pressure ulcer of heel, right, unstageable (L89.610) Pressure ulcer of left hip, stage 3 (L89.223) Pressure ulcer of right hip, stage 3 (L89.213) Pressure ulcer of sacral region, unstageable (L89.150) Wheelchair dependent (Z99.3) ?? _ Discharge Medications Acetaminophen (acetaminophen 325 mg oral tablet)?650?Milligram?By Mouth?Every 4 hours?as needed?Pain , Mild Albuterol (albuterol 90 mcg/inh inhalation powder)?2?puff(s)?Inhalation?Every 4 hours?as needed?as needed Albuterol (Albuterol (Eqv-Proventil HFA) 90 mcg/inh inhalation aerosol)?2?puff(s)?Inhalation?Every 6 hours apixaban (Eliquis 5 mg oral tablet)?1?tab(s)?5?Milligram?By Mouth?2 times a day?for 30?Days Aspirin (aspirin 81 mg oral delayed release tablet)?1?tab(s)?81?Milligram?By Mouth?Daily Atorvastatin (atorvastatin 40 mg oral tablet)?See Instructions?TAKE 1 TABLET BY MOUTH DAILY Collagenase Topical (collagenase topical 250 u/gm ointment)?See Instructions?Topically Daily Emollients, Topical (emollients, topical emulsion)?See Instructions?Vashe Topical solution apply topically daily as per wound care instruction Linezolid (linezolid 600 mg oral tablet)?1?tab(s)?600?Milligram?By Mouth?Every 12hours?for 9?Days Melatonin (melatonin 3 mg oral tablet)?9?Milligram?By Mouth?Daily at bedtime Multivitamin With Minerals (Multivit Therapeutic/Minerals Tablet)?1?tab(s)?By Mouth?Daily Polyethylene Glycol 3350 (MiraLax oral powder for reconstitution)?17?gram?By Mouth?Daily?dissolve in water before taking ? Quality Measures Tobacco Use Treatment:? Durable Medical Equipment Current home treatments: Wound care (07/19/22) On Admit VNA/Hospice/Home Care: [facility]ady Chand07/12/22) Discharge recommendations: Home with services (11/10/22) Discharge Medical Equipment Companies: [employer] / [employer] [phone] (07/09/22) Name of Agency #1: [employer] (wound vac) (07/09/22) Name of Agency #1: [facility] (bed/mattress) (07/09/22) Name of Agency #1: [facility] (07/09/22) Agency Junior Java Developer #1: [phone] (07/09/22) Service Categories #1: Penitentiary, Wound Care, Wound Vac (07/09/22) Service Comments #1: You are discharging home with wound care from [facility]. [facility] is supplyingyour specialty bed and pressure relieving mattress. [employer] supplies your wound vac. If there are issues with the vac, please call their main number at ??[phone] open 02/12. (07/09/22) Agency Junior Java Developer #2: (07/09/22) Agency Junior Java Developer #3: [phone] (07/09/22) Ambulatory devices needed: None (11/10/22) ? Medications Started linezolid Allergies Allergies ?(Active and Proposed Allergies Only) Vioxx? (Severity: Mild, Onset: Unknown) ?Reactions: Hypertension ? Future Appointments Friday 2:00 PM EDT ?? With: Jerad Guo Where: [facility] [address] [place] [address]- Status: Pending Objective Assessment and Plan ?This is a 67 yo gentleman with complex??past medical history of substance use (heroin), atrial fibrillation, CAD history of VA, COPD, history of stroke (previously on apixaban, would like to resume)??hypertension, hyperlipidemia, CHF, seizure disorder,??and chronic wounds, recently off all medications d/t financial issue per his report. He??saw PCP 11/04 for multiple wounds, and was sent to the ED for further evaluation for possible osteomyelitis. MRI pending. ? Osteomyelitis ,left femoral diaphysis left AKA stump infection Infected decubitus ulcer Patient with multiple wounds: right heel, right ischial tuberosity/buttock, sacrum, left buttock/hip, and left AKA stump concern for osteomyelitis regarding the right ischial tuberosity wound, which is tunneling, and theleft stump wound ?? MRI of the left-lower extremity stump, MRI of pelvis for right ischial tuberosity Soft tissue ulcer extending to the right initial tuberosity without evidence of underlying initial tuberosity osteomyelitis Cortical inhomogeneity within the remaining left femoral diaphysis which may represent bone resorption or osteomyelitis. Relative preservation of femoral intramedullary signal Soft tissue edema or cellulitis at the amputation site and within the distal aspect of the vastus musculature. No definite drainable soft tissue abscess collection Femoral head avascular necrosis bilaterally ?? Repeat MRI on 11/11 stable ?? -S/p left AKA stump revision, closed with fabian 11/08 -Vascular singed off -ID and wound care on board. -Heel offloading of the RLE ??ID switched ??antibiotic to daptomycin \A culture of tissue from the OR grew VRE, and a culture of the bone was negative. A postoperative MRI on 11/10 again revealed an abnormality, though atypical for osteomyelitis. ?? Treating for a soft tissue left AKA stump infection due to VRE and a possible??right hip soft tissue wound infection due to MRSA. ??ID recommends linezolid 600mg PO twice/day to complete 14 days from the OR on 11/08 (end date 11/21) Continue wound care Follow up with surgery as OP? was not able to arrange VNA for wound care??because of pt's history ? Noncompliance with medications ??Encouraged compliance? Substance abuse Patient uses 5 bags of heroin per day,??cessation advised -Refused to see addiction medicine correction worker consulted ? [id number] -Restarted aspirin, Eliquis, statin -Continue medication optimization, patient has no complaints ?? H/o seizure: Patient has history of seizure with last seizure 1 month ago, did not tell me if that was part of withdrawal-refused to answer.?? Per chart patient??was on Keppra at some point however no refill since 2020. Needs further assessment ?? Code Status: DNR ? . Physical Exam GENERAL: Chronically ill appearing man in no acute distress HEENT: Atraumatic, no icterus CARDIOVASCULAR: Regular rate and rhythm.??No peripheral edema.?? RESPIRATORY: Lungs clear to auscultation GASTROINTESTINAL: Non-distended, normoactive bowel sounds, non-tender GENITOURINARY: [place] cath SKIN: ??No diffuse rash present, wounds not unbandaged MUSCULOSKELETAL: Left AKA stump with fabian, no surrounding erythema or drainage NEUROLOGICAL/PSYCH: A&Ox3, grossly intact Surgical Procedures Revision Above Knee Amputation 11/08/2022 16:21 Consultants ID? Vascular surgery Pending Results Add On Lab Order ordered on 11/08/2022 Add On Lab Order ordered on 11/11/2022 Anaerobic Culture ordered on 11/08/2022 Fungal Culture, Nonrespiratory ordered on 11/08/2022 Fungal Culture, Nonrespiratory ordered on 11/08/2022 Follow-Up Appointments Added Follow Up ?Time Frame ?Comments [facility] Care [facility] Hyper[facility] Treatment?pl call to schedule appointment Tony Rhodes MD?1 to 2 weeks Patient Instructions Lelft BKA revision site : Betadine paint to staple line; cover with DSD and affix to skin. ?? Rt heel wound : Betadine paint wound bed. Air dry. Leave DAWNA. Daily. Apply Z- boots Ensure heel is floating within boot. ?? Sacrococcygeal wound ; Gently cleanse wound bed followed by the periwound with VASHE solution moistened gauze. Allow to dry. Apply Z-guard to periwound. Apply nickel thick layer of Santyl to wound bed. Cover with VASHE dampened gauze. Cover/secure with ABD/DSD/Medipore tape. Change daily and PRN for soilage/saturation. ?? Rt and left greater trochanter: Gently cleanse/irrigate wound bed followed by the periwound with VASHE solution moistened gauze. Allow to dry. Apply nickel thick layer of Santyl to wound bed. (If needed fill space with light gauze packing. Cover/secure with Mepilex foam dressing. Change daily and PRN for soilage/saturation. . Post Discharge Care Discharge ?11/13/22 12:24:00 EDT Discharge Prescriptions ?ePrescribed, ??11/13/22 12:24:00 EDT Home Health Face to Face ^HomeHealthFTF Results Discharge Labs BLOOD COUNT & DIFF WBC 14.2 k/mm3 (High)?? 11/12/2022 00:58 RBC 4.58 m/mm3 (Low)?? 11/12/2022 00:58 Hgb 11.4 Gm/dL (Low)?? 11/12/2022 00:58 Hct 36.0 % (Low)?? 11/12/2022 00:58 MCV 78.6 femtoliters (Low)?? 11/12/2022 00:58 MCH 24.9 pg (Low)?? 11/12/2022 00:58 MCHC 31.7 g/dL (Low)?? 11/12/2022 00:58 Platelet Count 197 k/mm3 ()?? 11/12/2022 00:58 RDW-SD 51.7 femtoliters (High)?? 11/12/2022 00:58 MPV 10.1 femtoliters ()?? 11/12/2022 00:58 Nucleated RBC (Automated) 0.0 #/100 WBC'S ()?? 11/12/2022 00:58 Abs. NRBC 0.0 k/mm3 ()?? 11/12/2022 00:58 Abs. Neut 6.9 k/mm3 ()?? 11/12/2022 00:58 Abs. Lymph 4.4 k/mm3 (High)?? 11/12/2022 00:58 Abs. Beaver 1.7 k/mm3 (High)?? 11/12/2022 00:58 Abs. Eo 0.9 k/mm3 (High)?? 11/12/2022 00:58 Abs. Baso 0.2 k/mm3 (High)?? 11/12/2022 00:58 Neut % 48.8 % ()?? 11/12/2022 00:58 Lymph % 31.2 % ()?? 11/12/2022 00:58 Beaver % 12.2 % (High)?? 11/12/2022 00:58 Eos % 6.3 % (High)?? 11/12/2022 00:58 Baso % 1.1 % ()?? 11/12/2022 00:58 RBC Morphology SLIGHT ()?? 11/12/2022 00:58 Platelet Estimate ADEQUATE ()?? 11/04/2022 17:58 Imm Gran 0.4 % ()?? 11/12/2022 00:58 Abs. Imm Gran 0.1 k/mm3 ()?? 11/12/2022 00:58 ?? CARDIAC CK, Total 35 units/L ()?? 11/11/2022 00:48 ? CHEM GENERAL Sodium 144 mmol/L ()?? 11/12/2022 01:00 Potassium 4.0 mmol/L ()?? 11/12/2022 01:00 Chloride 111 mmol/L (High)?? 11/12/2022 01:00 Bicarbonate Level 20 mmol/L (Low)?? 11/12/2022 01:00 Anion Gap 13 ()?? 11/12/2022 01:00 Glucose Level 140 mg/dL (High)?? 11/12/2022 01:00 BUN 18 mg/dL ()?? 11/12/2022 01:00 Creatinine-Blood 0.9 mg/dL ()?? 11/12/2022 01:00 Estimated GFR Creatinine 91 ML/MIN/1.73 M2 ()?? 11/12/2022 01:00 Calcium 8.7 mg/dL ()?? 11/12/2022 01:00 Calcium, Ionized pH Corrected 1.19 mmol/L ()?? 11/04/2022 17:58 Phosphorus 2.9 mg/dL ()?? 11/10/2022 05:54 Magnesium 2.4 mg/dL (High)?? 11/10/2022 05:54 C-Reactive Protein <0.3 mg/dL ()?? 11/08/2022 01:11 ?? COAG INR 1.1 ()?? 11/04/2022 17:58 Protime (PT) 11.2 seconds ()?? 11/04/2022 17:58 APTT 29.3 seconds ()?? 11/04/2022 17:58 ? HEME OTHER Sed Rate 52 mm/hr (High)?? 11/07/2022 03:17 ? MISC. CHEMISTRY Hold Green Top SPECIMEN DISCARDED AFTER 1 WEEK ()?? 11/04/2022 17:58 ? SEROLOGY INF DISEASE Hepatitis B Surface Antigen NEGATIVE (N)?? 11/08/2022 01:11 Hepatitis B Core Ab, Total NEGATIVE (N)?? 11/08/2022 01:11 Hepatitis C Ab NEGATIVE (N)?? 11/08/2022 01:11 HIV 4th Generation Ab-Ag Result NEGATIVE (N)?? 11/08/2022 01:11 ?? TOXICOLOGY/TDM Vancomycin Level, Trough 6.0 mg/L (Low)?? 11/08/2022 01:11 ? VIROLOGY COVID-19 by RT-PCR NEGATIVE ()?? 11/04/2022 18:22 ? 50_ minutes spent on discharge * Sindy DILL, Odalys: PERFORM Event Display: Discharge/Transfer Note Hospital Authored Date: Pt's pharmacy called that pt will have to pay almost 200 $ for Linezolid and??pt was informed aboutthat and pt mentioned he will be able to pay for it Requested nursing to send him out with wound care supply * Zohra Campos RN: PERFORM Event Display: Patient Education/Instruction Authored Date: Inpatient Adult Discharge Instructions [address] [address] Name: JAIME CYR : 1955 Visit: 11/04/2022 21:43:00 Current Date: 11/13/2022 15:55 Account: [id number] Inpatient Adult Discharge Instructions We would like to thank you for allowing us to assist you with your healthcare needs. The following includes patient education materials and information regarding your injury/illness. Our entire staffstrives to provide an excellent experience for our patients and their families. PLEASE ENSURE YOU FOLLOW-UP PER THE INSTRUCTIONS BELOW! ?? YOUR OPINION IS IMPORTANT TO US! Please complete the survey you may receive by mail or email. Your feedback will be used to make improvements to the healthcare experiences of our patients and their families. Surveys are administered by [employer]. ?? If further treatment with your primary care physician or another doctor is recommended, it is important for you to keep the appointment. Call your primary care physician or return to the Emergency Department immediately if your condition worsens, fails to improve, or new symptoms develop. If you need to find a doctor, you can call [facility] [employer] for a referral at [phone] or toll free at [phone] or log in to [email or web address] ?? You can view and manage your care through the patient portal or by using a health care tyler of your choosing. [employer] is a website that allows you to securely view your medical information including your hospital discharge summary, office visit summaries, medications and follow-up visits. You can also request appointments, renew medications, and request access to your medical information using a health care tyler of your choosing, or just ask a question. You can enroll at [email or web address] or register during your next office visit. You have been discharged from [facility], Patient Care Unit: S3. If you have any questions regarding these instructions after you leave, please call us and we will be happy to assist you. [facility] Your Care Team Attending Physician Odalys Callahan MD Consulting Providers Tee Tipton MD Discharging Providers Odalys Callahan MD Reason for Admission Multiple wounds, sent from PCP for concern for osteomyelitis Your Diagnosis Cellulitis Failure to thrive in adult Infected decubitus ulcer Noncompliance with medications Substance abuse Atrial fibrillation CAD - Coronary artery disease COPD - Chronic obstructive pulmonary disease Hypercholesterolemia Hypertension Seizure disorder PAD (peripheral artery disease) PVD (peripheral vascular disease) 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 Pressure ulcer of right hip, stage 3 Pressure ulcer of sacral region, unstageable Decubitus ulcer of right ischium, stage 3 Hx of above knee amputation Dehiscence of surgical wound Wheelchair dependent Pressure ulcer of left hip, stage 3 Pressure ulcer of heel, right, unstageable Tests Performed Below is a partial list of the tests performed during your hospitalization. You may have had other tests and procedures not included in this list. Please discuss all test results with your provider. ANTI HEP B CORE ANTI-HEPATITIS C Basic Metabolic Panel Calcium Ionized CBC CBC w/ Differential CK,TOTAL ONLY COVID-19 (Novel Coronavirus), Rapid PCR CRP ESR HEP. B SURF. AG HIV AB-AG 4TH GENERATION HOLD GREEN TUBE INR Magnesium Level Mg Level Phosphorus Level PTT Vancomycin Trough MRI Ext Lower W/O Contrast Left MRI Pelvis W/O Contrast XR Femur 2 Views Left XR Hip w/Pelvis 2-3 View Right Primary Care Provider Tony Rhodes MD Advance Directive Health Care Proxy on File Yes - Health Care Proxy Discharge Vitals Temperature: 98.3 DegF Weight: 44.4 kg Pulse Rate: 80 bpm ?? Respiratory Rate: 16 br/min ?? Systolic Blood Pressure: 102 mm Hg ?? Diastolic Blood Pressure: 57 mm Hg ?? Oxygen Saturation: 100 % ?? Studies Pending All tests and labs ordered during this hospital stay have been completed unless listed below. Please discuss all pending results with your provider listed above in these instructions. ?? Add On Lab Order Anaerobic Culture Fungal Culture, Nonrespiratory (FUNGAL CULT,NON-RESPIRATORY) What to do next Instructions From Your Doctor Sole LOPEZ revision site : Betadine paint to staple line; cover with DSD and affix to skin. ?? Rt heel wound : Betadine paint wound bed. Air dry. Leave DAWNA. Daily. Apply Z- boots Ensure heel is floating within boot. ?? Sacrococcygeal wound ; Gently cleanse wound bed followed by the periwound with VASHE solution moistened gauze. Allow to dry. Apply Z-guard to periwound. Apply nickel thick layer of Santyl to wound bed. Cover with VASHE dampened gauze. Cover/secure with ABD/DSD/Medipore tape. Change daily and PRN for soilage/saturation. ?? Rt and left greater trochanter: Gently cleanse/irrigate wound bed followed by the periwound with VASHE solution moistened gauze. Allow to dry. Apply nickel thick layer of Santyl to wound bed. (If needed fill space with light gauze packing. Cover/secure with Mepilex foam dressing. Change daily and PRN for soilage/saturation. . Discharge Orders Scheduled Follow-Up Appointments Friday 2:00 PM EDT ?? With: Ginny PAN, Jerad Valencia Where: [facility] [address] [place] [address]- Status: Pending You Need to Schedule the Following Appointments Follow Up with??[facility] Care [facility] Hyperbar[facility] Treatment Why: pl call to schedule appointment Where: [address] [place] [phone]- [facility] (1) Follow Up with??Meagan DILL, Tony Gaines When:??Within 1 to 2 weeks Discharge Medications KLARISSA JAIME :1955 Visit Date:11/04/2022 Medications: Please continue your medications until treatment is completed or stopped by your provider. Medications not listed below should be discontinued. Discuss any questions related to medications with your provider. What How Much When Instructions Next Dose New Emollients, Topical (emollients, topical emulsion) See instructions Vashe Topical solution ?? apply topically daily as per wound care instruction ?? Pickup at [facility] 7/6 am as prescribed New Linezolid (linezolid 600 mg oral tablet) 1 tab(s) Oral Every 12 hours Duration: 9 Days Pickup at [facility] as prescribed Changed Collagenase Topical (collagenase topical 250 u/ gm ointment) See instructions Topically Daily ?? Pickup at [facility] 7/?? AM Unchanged Acetaminophen (acetaminophen 325 mg oral tablet) 650 Milligram Oral Every 4 hours as needed for Pain , Mild as prescribed Unchanged Albuterol (Albuterol (Eqv-Proventil HFA) 90 mcg/ inh inhalation aerosol) 2 puff(s) Inhalation Every 6 hours as prescribed Unchanged Albuterol (albuterol 90 mcg/ inh inhalation powder) 2 puff(s) Inhalation Every 4 hours as needed for as needed as prescribed Unchanged apixaban (Eliquis 5 mg oral tablet) 1 tab(s) Oral Twice a day Duration: 30 Days 11/13?? PM Unchanged Aspirin (aspirin 81 mg oral delayed release tablet) 1 tab(s) Oral Daily 11/14?? AM Unchanged Atorvastatin (atorvastatin 40 mg oral tablet) See instructions TAKE 1 TABLET BY MOUTH DAILY ?? 11/13?? PM Unchanged Melatonin (melatonin 3 mg oral tablet) 9 Milligram Oral Daily at Bedtime 11/13?? PM Unchanged Multivitamin With Minerals (Multivit Therapeutic/ Minerals Tablet) 1 tab(s) Oral Daily 11/14?? AM Unchanged Polyethylene Glycol 3350 (MiraLax oral powder for reconstitution) 17 gram Oral Daily dissolve in water before taking ?? as prescribed [facility] Information [facility] Pharmacy: [address] [place] [address] [phone] ?? What How Much When Comments Stop Taking Cholecalciferol (Vitamin D3 10,000 intl units oral capsule) 1 capsule Oral Every week Duration: 6 week(s) Stop Taking Clonidine (cloNIDine 0.1 mg oral tablet) 1 tab(s) Oral Twice a day Stop Taking Docusate (Colace sodium 100 mg oral capsule) 1 capsule Oral Twice a day Stop Taking Durable Medical Equipment (Nutritional Supplements) Ensure Oral 3 times a day Stop Taking levETIRAcetam (Keppra 500 mg oral tablet) 1 tab(s) Oral Twice a day Stop Taking Lidocaine Topical (lidocaine 5% topical film) Topically Daily Stop Taking Metoprolol (Metoprolol Succinate ER 25 mg oral tablet, extended release) 1 tab(s) Oral Daily Stop Taking Omeprazole (omeprazole 20 mg oral delayed release tablet) 1 tab(s) Oral Daily in the morning Stop Taking Pentoxifylline (pentoxifylline 400 mg oral tablet, extended release) 1 tab(s) Oral 3 times a day Test Results Below is a partial list of the most recent Laboratory test results done prior to this discharge. You may have had other tests and procedures not included in this list. Please discuss all test resultswith your provider. ANTI HEP B CORE (11/08/2022) ???Hepatitis B Core Ab, Total - NEGATIVE ANTI-HEPATITIS C (11/08/2022) ???Hepatitis C Ab - NEGATIVE Basic Metabolic Panel (11/12/2022) ???Sodium - 144 mmol/L???Potassium - 4.0 mmol/L???Chloride - 111 mmol/L???Bicarbonate Level - 20 mmol/L???Anion Gap - 13???Glucose Level - 140 mg/dL???BUN - 18 mg/dL???Creatinine-Blood - 0.9 mg/dL???Estimated GFR Creatinine - 91 ML/MIN/1.73 M2???Calcium - 8.7 mg/dL Calcium Ionized (11/04/2022) ???Calcium, Ionized pH Corrected - 1.19 mmol/L CBC (11/11/2022) ???WBC - 15.3 k/mm3???RBC - 5.14 m/mm3???Hgb - 12.9 Gm/dL???Hct - 40.6 %???MCV - 79.0 femtoliters???MCH - 25.1 pg???MCHC - 31.8 g/dL???Platelet Count - 193 k/mm3???RDW-SD - 51.6 femtoliters???MPV - 9.6 femtoliters???Nucleated RBC (Automated) - 0.0 #/100 WBC'S???Abs. NRBC - 0.0 k/mm3 CBC w/ Differential (11/12/2022) ???WBC - 14.2 k/mm3???RBC - 4.58 m/mm3???Hgb - 11.4 Gm/dL???Hct - 36.0 %???MCV - 78.6 femtoliters???MCH - 24.9 pg???MCHC - 31.7 g/dL???Platelet Count - 197 k/mm3???RDW-SD - 51.7 femtoliters???MPV - 10.1 femtoliters???Nucleated RBC (Automated) - 0.0 #/100 WBC'S???Abs. NRBC - 0.0 k/mm3???Abs. Neut - 6.9 k/mm3???Abs. Lymph - 4.4 k/mm3???Abs. Beaver - 1.7 k/mm3???Abs. Eo - 0.9 k/mm3???Abs. Baso - 0.2 k/mm3???Neut % - 48.8 %???Lymph % - 31.2 %???Beaver % - 12.2 %???Eos % - 6.3 %???Baso % - 1.1 %???RBC Morphology - SLIGHT???Imm Gran - 0.4 %???Abs. Imm Gran - 0.1 k/mm3 CK,TOTAL ONLY (11/11/2022) ???CK, Total - 35 units/L COVID-19 (Novel Coronavirus), Rapid PCR (11/04/2022) ???COVID-19 by RT-PCR - NEGATIVE CRP (11/08/2022) ? ?C-Reactive Protein - <0.3 mg/dL ESR (11/07/2022) ???Sed Rate - 52 mm/hr HEP. B SURF. AG (11/08/2022) ???Hepatitis B Surface Antigen - NEGATIVE HIV AB-AG 4TH GENERATION (11/08/2022) ???HIV 4th Generation Ab-Ag Result - NEGATIVE HOLD GREEN TUBE (11/04/2022) ???Hold Green Top - SPECIMEN DISCARDED AFTER 1 WEEK INR (11/04/2022) ???INR - 1.1???Protime (PT) - 11.2 seconds Magnesium Level (11/06/2022) ???Magnesium - 2.1 mg/dL Mg Level (11/10/2022) ???Magnesium - 2.4 mg/dL Phosphorus Level (11/10/2022) ???Phosphorus - 2.9 mg/dL PTT (11/04/2022) ???APTT - 29.3 seconds Vancomycin Trough (11/08/2022) ???Vancomycin Level, Trough - 6.0 mg/L Allergies (NKA means No Known Allergies) Vioxx??(Hypertension) Problems Active Problems??(33) Adenomatous polyposis coli?? Anemia?? Anxiety?? Arm weakness?? Arterial insufficiency?? Atrial fibrillation?? Bilateral Subclavian artery stenosis?? CABG x 2 - Coronary artery bypass grafts x 2?? CAD - Coronary artery disease?? Carotid artery stenosis, total occlusion of Left ICA?? Cervical spondylosis?? COPD - Chronic obstructive pulmonary disease?? Current tobacco use, 1-1.5 ppd, quit 08/14/2016?? CVA - Cerebrovascular accident/TIA w/no residual?? CVD (cerebrovascular disease)?? GERD (gastroesophageal reflux disease)?? Glaucoma?? H/O herpes zoster?? Hypercholesterolemia?? Hypertension?? Insomnia?? Low back pain?? Mild mitral regurgitation?? Old myocardial infarction, NSTEMI?? Opiate dependence?? 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?? PAD (peripheral artery disease)?? Pulmonary nodule, right middle?? PVD (peripheral vascular disease)?? S/P hernia repair?? Seizure disorder?? Underweight?? Vitamin D deficiency?? Education Materials Below is the list of Educational Leaflet Providered with your Discharge Instructions. Valuables and Belongings I fully understand and agree that [facility] accepts no responsibility for all my personal property including clothing, toilet articles, radios, jewelry, dentures, hearing aids, rings, money, or any other property that is in my possession or is brought to me after admission. I understand certain valuables may be placed in a hospital safe for a short period of time. I understand that the hospital is not liable for loss or damage due to accident, fire, or other natural occurrence while said property is in the safe. I accept full responsibility for any personal property that I keep with me, and will not hold the hospital responsible in case of loss or disappearance. I acknowledge that i have been encouraged to send valuables and belongings home. ?? No Valuables/Belongings: No valuables/belongings present Review of Valuable and Belonging List: With patient Date for Pt to Sign Valuables/Belongings: 11/13/22 14:13:00 ?? Other Discharge Information ?? Wound Assessment?? Wound Assessment?? Wound Location I: Hip, left Wound Location II: Hip, left Wound Location III: Hip, right Wound Location IV: Buttocks, Right ? Pulmonary Rehab Status?? Pulmonary Rehab Discharge Status?? Respiratory Rate: 16 br/min ? Common Emergency Awareness Tips IS IT A STROKE? Act FAST and Check for these signs: FACE Does the face look uneven? ARM Does one arm drift down? SPEECH Does their speech sound strange? TIME Call at any sign of stroke ?? Heart Attack Signs Chest discomfort: Most heart attacks involve discomfort in the center of the chest and lasts more than a few minutes, or goes away and comes back. It can feel like uncomfortable pressure, squeezing, fullness or pain. Discomfort in upper body: Symptoms can include pain or discomfort in one or both arms, back, neck, jaw or stomach. Shortness of breath: With or without discomfort. Other signs: Breaking out in a cold sweat, nausea, or lightheaded. Remember, MINUTES DO MATTER. If you experience any of these heart attack warning signs, call to get immediate medical attention! ?? Smoking can increase your chances of developing chronic health problems and can cause harmful effects to other family members in your house. If you smoke, you are strongly encouraged to quit. Please call [facility] [employer] [facility] at [phone] or [phone] ([phone]) or log in to [email or web address] for referrals to smoking cessation programs. ?? 951 Suicide & Crisis Lifeline is available 02/12 if you or someone you know needs to find a reason to keep living. By calling 036 you'll be connected to a skilled, trained counselor at a crisis center in your area. INPATIENT DISCHARGE INSTRUCTIONS SIGNATURE PAGE PABLOSARAN BOYCEO Location:[facility] Registration Date and Time:11/04/2022 21:43 EDT Primary Care Physician: Tony Rhodes MD, Attending Physician: Odalys Callahan MD, I JAIME CYR, have received the above patient education materials/instructions and have verbalized understanding. If ambulance or transport services are being used I further acknowledge being givena choice of service. ?? If you need to contact me, please call me at this number: . Patient/Churn Driller Name: Patient/Churn Driller Signature: Relationship to Patient: Witness Name/Signature: Date: * Odalys Callahan MD: PERFORM, SIGN, VERIFY Event Display: Patient Education Handout Authored Date: * Event Display: Provider Clarification Note Please click on pdf link to open report * Event Display: Provider Clarification Note Please click on pdf link to open report Consult note * Aydin PATRICK, Rand Jin: PERFORM, MODIFY Event Display: Consultation Note Authored Date: Patient: ??JAIME CYR ? Age:??67 Years?Sex:??Male?:??1955?? Chief Complaint stumps, hips Reason for Consultation stumps, hips History of Present Illness Pt is a 67 yr old male seen at the request of the medical service for evaluation of left AKA stump and bilateral hips. Pt was admitted on 11/04 for multiple wounds and referred by PCP for evaluation for possible osteomyelitis. Pt reports presence of ulcer since left AKA surgery due to prolonged bed confinement and rehab stay. Pt's reports approximate 6 month hx of ulcers to bilateral hips, sacrum, and right heel. Pt w/hx??of multiple OR debridement to right ischium and sacrum with hx of wound vac placement.??Pt s/p left AKA on 04/13/22 w/vascular surg for severe PAD w/failed revascularization attempts. Pt reports left AKA surgical wound did not fully heal and close as expected. Pt is not followed by an outpatient wound care center and reports difficulty managing his wounds at home. Pt reports pain to right hip, rt ischium, rt heel, and left AKA wounds rated 7-8/10 at baseline. Pt reports pain increases with application of pressure; reduces with repositioning. XR of pelvis/hip and femur obtained; did not show evidence of osteomyelitis. MRI pelvis obtained; showed possible osteo within remaining left femoral diaphysis and bilateral femoral head avascular necrosis; result below. WBC trending downward, CRP 0.9, ESR 55. Wound culture from 11/05 growing staph aureus with gram + cocci/rods. Pt is wheelchair bound; lives at home with . ?? (11/06/2022 03:46 EDT MRI Pelvis W/O Contrast) IMPRESSION: ??Limited exam as described above ??Soft tissue ulcer extending to the right initial tuberosity without evidence of underlying initial tuberosity osteomyelitis ??Left lower extremity above the knee amputation ??Cortical inhomogeneity within the remaining left femoral diaphysis which may represent bone resorption or osteomyelitis. Relative preservation of femoral intramedullary signal ??Soft tissue edema or cellulitis at the amputation site and within the distal aspect of the vastusmusculature. ??No definite drainable soft tissue abscess collection ??Femoral head avascular necrosis bilaterally [1] ?? PMH/PSH: CAD s/p CABG, A-fib, opiate use disorder, epilepsy, HTN, PAD s/p left AKA (04/13/2022) withextensive vascular history (left subclavian artery occlusion status post a left common femoral to left axillary bypass, right femoral to left profunda bypass with PTFE graft in July 2018, extensive revascularization surgery in March 2022 for left critical limb ischemia), antegrade angiography of the right lower extremity, Angioplasty of the popliteal artery ?? Social hx: former alcohol use. Current heroin (not IV)??and nicotine use (2ppd) ?? FMH: Mother (): Bone cancer; Hyperlipidemia Father (): CAD - Coronary artery disease; Hyperlipidemia Brother: Alcoholism; CAD - Coronary artery disease; Hepatitis C; Hyperlipidemia Brother: Hyperlipidemia Other: Hyperlipidemia? Review of Systems Constitutional:??Denies fever/chills. Eyes:??No vision changes ENT:??No hearing loss, sneezing, congestion, runny nose or sore throat. Respiratory:??No shortness of breath, cough. Cardiovascular:??No chest pain or palpitations. Gastrointestinal:??No anorexia, N/V/D, or abdominal pain. :??Denies??urinary incontinence Neurologic:??No headache, dizziness. Musculoskeletal:??See HPI Skin:??No rash or itching. See HPI Physical Exam Vitals & Measurements T:??98.1?F?? TMIN:??97.9?F?? TMAX:??98.1?F?? HR:??71??(Peripheral)?? RR:??16?? BP:??167/100?? SpO2:??98%?? Constitutional:??WD/WN male??in no distress. Mental Status:??Alert/oriented to person, place and time. Head: Normocephalic. Cardiac: RRR, +S1/S2. No murmur, rub, gallop. Respiratory: Unlabored breathing; on RA.??Lungs equal with scattered expiratory wheezes throughout Gastrointestinal: Abdomen soft, non-tender, +bowel sounds, protuberant. Neurologic: Moves all extremities x3 independently. Normal, coherent speech Skin: Warm, pink dry. No rashes or lesions. No petechiae or purpura.??Ulcer to rt greater trochanter measuring approximately??1.2 cm x 1 cm x 0.5 cm; unable to visualize wound bed; covered with pale??yellow??necrotic eschar,??slough, fibrinous exudate, and biofilm. Erythema to periwound/surroundingarea??with epiboly. +point tenderness. Ulcer to left great trochanter measuring approximately 1 cm x 1.8 cm x 0.1 cm with pale pink wound bed covered with scattered biofilm fibrinous exudate and??pale yellow slough. No necrotic tissue present.??Dull??reddish brown??discoloration to surrounding area.??Wound to left AKA??amputation site measuring 1.5 cm x 0.8 cm x 0.5??cm; probes to bone??with pinkwound bed??partially covered with biofilm slough fibrinous exudate and??pale yellow eschar. Erythema to periwound edge and surrounding area with epiboly. + point tenderness. Ulcer to right ischium measuring??approximately 0.8 cm??x 1.2 cm x 0.6 cm with??annular undermining to max depth of 1.5 cm atapproximately 11 o'clock. Herbert reddish-pink wound bed with biofilm slough and fibrinous exudate present. Dull erythema to surrounding area??and periwound edge. +point tenderness.??Dry??brown scabbedeschar to sacrum measuring approximately 4.5 cm x 2.5 cm; no bogginess/drainage or point tenderness; scarred pink hypopigmentation to surrounding area. Musculoskeletal: No cyanosis or clubbing. Surgically absent LLE Extremities:??Faint right dorsalis pedis and faint posterior tibial pulses. No peripheral pitting edema noted. Dry brown scabbed area to right posterior heel??measuring approximately 0.6 cm in diameter; no bogginess/drainage/erythema; +point tenderness Psychiatric:??Euthymic mood, normal affect. Normal thought content, normal judgment. Assessment/Plan Assessment:??Pt w/PMH for CAD s/p CABG, A-fib, opiate use disorder, epilepsy, HTN, PAD s/p left AKA(04/13/2022) with extensive vascular history who presents with??multiple chronic wounds to bilateraltrochanters, right ischium, sacrum, left AKA, and right heel. All ulcers and wounds??can be categorized as below.??In-depth discussion of possible treatment plans; pt declines bedside sharp debridement at this time and would like to pursue enzymatic debridement with f/u at[facility] upon discharge. Recommend??low air loss mattress. ?? Infected decubitus ulcer (L89.90):??Managed by medical team w/antibiotics;??preliminary wound culture growing??gram-positive??cocci/rods ?? Failure to thrive in adult (R62.7):??Recommend nutrition consult for high- protein??calorie diet??and protein supplements to promote??healing ?? PAD (peripheral artery disease) (I73.9):??history of left AKA??in [place]??with wound dehiscence??resulting in chronic open wound??at stump site that probes to bone Recommend medical team??obtain vascular consult for evaluation ?? Decubitus ulcer of right ischium, stage 3 (L89.313):??patient was seen??earlier by aluminizer;??agree with aluminizer's dressing recommendations ?? Dehiscence of surgical wound (T81.31XA):?patient was seen??earlier by aluminizer;??agree withwound care RN's dressing recommendations ??history of left AKA??in April??with wound dehiscence??resulting in chronic open wound??at stump site that probes to bone Recommend medical team??obtain vascular consult for evaluation ?? Hx of above knee amputation (Z89.619):??history of left AKA??in April??with wound dehiscence??resulting in chronic open wound??at stump site that probes to bone Recommend medical team??obtain vascular consult for evaluation ?? Pressure ulcer of heel, right, unstageable (L89.610):??patient was seen??earlier by aluminizer;??agree with aluminizer's dressing recommendations Apply Z Boots to offload pressure (from distribution). ?? Pressure ulcer of left hip, stage 3 (L89.223):??patient was seen??earlier by aluminizer;??agree with aluminizer's dressing recommendations ?? Pressure ulcer of right hip, stage 3 (L89.213):??patient was seen??earlier by aluminizer;??agreewith aluminizer's dressing recommendations ?? Pressure ulcer of sacral region, unstageable (L89.150):??patient was seen??earlier by aluminizer;??agree with aluminizer's dressing recommendations ?? Wheelchair dependent (Z99.3):??Will provide pt with rx for Roho cushion for w/c to obtain upon discharge ?? Discharge Planning:??Recommend pt f/u with local wound care center upon discharge for wound/ulcer management. If referring to [facility], please??request through the [facility] Pools list listed as a tab in the Inbox Summary section; select Wound Care - Scheduling to send a communication message requesting an appointment.??Pt??prefers [facility] or[facility]. ?? Please re-consult wound care MD/TYLER for deterioration in wound/skin status. ?? Pictures uploaded in fire behavior analyst ?? Thank you for allowing me to participate in the care of this patient,??I appreciate the opportunity to assist??in management. My assessment and??all recommendations??have been communicated??to the patient's primary team via this documentation. Please??feel free to reach out with any??concerns??or questions. ?? Problem List/Past Medical History Ongoing Adenomatous polyposis coli Anemia Anxiety Arm weakness Arterial insufficiency Atrial fibrillation Bilateral Subclavian artery stenosis CABG x 2 - Coronary artery bypass grafts x 2 CAD - Coronary artery disease Carotid artery stenosis, total occlusion of Left ICA Cervical spondylosis COPD - Chronic obstructive pulmonary disease CVA - Cerebrovascular accident/TIA w/no residual CVD (cerebrovascular disease) GERD (gastroesophageal reflux disease) Glaucoma H/O herpes zoster Hypercholesterolemia Hypertension Insomnia Low back pain Old myocardial infarction, NSTEMI Opiate dependence 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 PAD (peripheral artery disease) Pulmonary nodule, right middle PVD (peripheral vascular disease) S/P hernia repair Seizure disorder Underweight Vitamin D deficiency Procedure/Surgical History ???Left common femoral to left axillary bypass graft using 8-mm ring Propaten Pembroke-Anthony graft. (09/04/2016)???Coronary bypass grafting x2 with LEE to LAD and radial to obtuse marginal coronary arteryand epiaortic probing of ascending aorta and placement of right pleural thoracostomy tube for pneumothorax. (05/18/2009)???Cardiac catheterization (04/19/2009)???Colonoscopy (07/2005)???Colonoscopy polypectomy (05/2005)???Bypass graft, with other than vein; femoral-popliteal, bilateral fem aortic bypass???Debridement, muscle and/or fascia (includes epidermis, dermis, and subcutaneous tissue, if pe rformed); first 20 sq cm or less???Hernia repair Medications Inpatient Acetaminophen Tablet, 650 mg, By Mouth, Every 4 hours, PRN albuterol CFC free 90 mcg/inh inhalation aerosol, 180 mcg= 2 puffs, Inhalation, Every 4 hours, PRN aspirin 81 mg oral delayed release tablet, 81 mg, By Mouth, Daily atorvastatin 40 mg oral tablet, 40 mg, By Mouth, Daily at bedtime Docusate/Senna Tablet, 1 tablet, By Mouth, 2 times a day, PRN Enoxaparin Inj, 40 mg= 0.4 mL, Subcutaneous Injection, Daily Melatonin Tablet, 3 mg, By Mouth, Daily at bedtime, PRN MiraLax Powder, 17 Gm= 1 pack/packet, By Mouth, Daily, PRN Multivit Therapeutic/Minerals Tablet, 1 tablet, By Mouth, Daily NaCL 0.9% Flush, 3 mL, IV Push, Every 8 hours NaCL 0.9% Flush, 3 mL, IV Push, Every 8 hours, PRN Nicotine Topical, 21 mg, Topically, Daily oxyCODONE 5 mg oral tablet, 5 mg, By Mouth, Every 6 hours, PRN Remove Patch, 1 each, Topically, Daily Robitussin DM Liquid, 10 mL, By Mouth, Every 4 hours, PRN saccharomyces boulardii lyo 250 mg oral capsule, 250 mg, By Mouth, 2 times a day Santyl Topical Oint, 1 application, Topically, Daily Simethicone Tablet, 80 mg, Chew, 3 times a day, PRN Vancomycin IVPB, 500 mg, IVPB, Every 24 hours Vashe Topical Solution, 475 mL, Topically, Daily Zosyn Extended IVPB, 3.375 Gm, IVPB, Every 8 hours Home acetaminophen 325 mg oral tablet, 650 mg, By Mouth, Every 4 hours, PRN Albuterol (Eqv-Proventil HFA) 90 mcg/inh inhalation aerosol, 2 puffs, Inhalation, Every 6 hours albuterol 90 mcg/inh inhalation powder, 2 puffs, Inhalation, Every 4 hours, PRN, 5 refills aspirin 81 mg oral delayed release tablet, 81 mg= 1 tablet, By Mouth, Daily atorvastatin 40 mg oral tablet, See Instructions, 1 refills cloNIDine 0.1 mg oral tablet, 0.1 mg= 1 tablet, By Mouth, 2 times a day, 2 refills Colace sodium 100 mg oral capsule, 100 mg= 1 capsule, By Mouth, 2 times a day collagenase topical 250 u/gm ointment, 1 application, Topically, Daily Eliquis 5 mg oral tablet, 5 mg= 1 tablet, By Mouth, 2 times a day, 2 refills Keppra 500 mg oral tablet, 500 mg= 1 tablet, By Mouth, 2 times a day, 2 refills lidocaine 5% topical film, Topically, Daily melatonin 3 mg oral tablet, 9 mg, By Mouth, Daily at bedtime Metoprolol Succinate ER 25 mg oral tablet, extended release, 1 tablet, By Mouth, Daily MiraLax oral powder for reconstitution, 17 Gm, By Mouth, Daily Multivit Therapeutic/Minerals Tablet, 1 tablet, By Mouth, Daily Nutritional Supplements, Ensure, By Mouth, 3 times a day omeprazole 20 mg oral delayed release tablet, 20 mg= 1 tablet, By Mouth, Daily in AM pentoxifylline 400 mg oral tablet, extended release, 1 tablet, By Mouth, 3 times a day Vitamin D3 10,000 intl units oral capsule, 250 mcg= 1 capsule, By Mouth, Every week Allergies Vioxx??(Hypertension) Social History Alcohol Use: Past. Employment/School Status: Disabled. Exercise Self assessment: Poor condition. Home/Environment Living situation: Home with assistance. Lives with: Spouse. Nutrition/Health Diet: Regular. Substance Abuse Use: Current. Type: Heroin. Other: 5 bags of heroin/day. Tobacco Use: 10 or more cigarettes (1/2 pack or more)/day in last 30 days. Other: 2 PPD. Family History Alcoholism: Brother.Negative: Mother, Father, Brother and Other. Bone cancer: Mother. CAD - Coronary artery disease: Father and Brother.Negative: Mother, Brother and Other. Cancer of breast: Negative: Mother, Father, Brother, Brother and Other. Cancer of colon: Negative: Mother, Father, Brother, Brother and Other. Cancer of prostate: Negative: Mother, Father, Brother, Brother and Other. Diabetes mellitus type II: Negative: Mother, Father, Brother, Brother and Other. Hepatitis C: Brother. Hyperlipidemia: Mother, Father, Brother, Brother and Other. Hypertension: Negative: Mother, Father, Brother, Brother and Other. RA - Rheumatoid arthritis: Negative: Mother, Father, Brother, Brother and Other. Stroke: Negative: Mother, Father, Brother, Brother and Other. Thyroid disease: Negative: Mother, Father, Brother, Brother and Other. Immunizations Vaccine Date Status [id number] bivalent booster vax 03/11/2022 Recorded influenza virus vaccine, inactivated 03/11/2022 Recorded SARS-CoV-2 (COVID-19) mRNA-1273 vaccine 04/21/2021 Recorded influenza virus vaccine, inactivated 02/07/2021 Recorded SARS-CoV-2 (COVID-19) mRNA-1273 vaccine 09/29/2020 Recorded SARS-CoV-2 (COVID-19) mRNA-1273 vaccine 09/01/2020 Recorded pneumococcal 23-valent vaccine 07/12/2020 Given Influenza Virus Vaccine (oldterm) 03/13/2020 Recorded pneumococcal 13-valent vaccine 05/03/2019 Given influenza virus vaccine, inactivated 05/22/2018 Given influenza virus vaccine, inactivated 02/25/2017 Recorded influenza virus vaccine, inactivated 04/05/2016 Given Zostavax (oldterm) 02/19/2016 Given influenza virus vaccine, inactivated 02/27/2015 Given tetanus/diphtheria/pertussis, acel(Tdap) 07/13/2014 Given influenza virus vaccine, inactivated 02/04/2014 Given pneumococcal 23-valent vaccine 07/23/2013 Given influenza virus vaccine, inactivated 02/01/2013 Recorded Comments : [facility] influenza virus vaccine, inactivated 02/20/2012 Given Comments : VIS GIVEN influenza virus vaccine, inactivated 02/03/2012 Recorded Comments : [facility] FluLaval (oldterm) 02/21/2010 Given Comments : [employer] [facility] influ virus vac, H1N1, inactive(oldterm) 05/09/2009 Given Comments : H1N1 influenza virus vaccine, inactivated 02/01/2009 Given Comments : GIVEN BY JOHAN BOWERS BY [facility] Influenza Virus Vaccine (oldterm) 03/16/2008 Given Influenza Virus Vaccine (oldterm) 04/21/2007 Given Influenza Virus Vaccine (oldterm) 04/15/2006 Given Comments : GIVEN [facility] tetanus-diphtheria toxoids (Td) 05/12/2004 Given Pneumococcal Vacc (oldterm) 05/12/1999 Given Images rt ischium sacrum rt heel rt hip L AKA site left hip * Deann Cabrera NP: PERFORM, MODIFY Event Display: Consultation Note Authored Date: [id number] Patient: ??JAIME CYR ? Age:??67 Years?Sex:??Male?:??1955?? Chief Complaint/Reason for Consult Multiple wounds, sent from PCP for concern for osteomyelitis ?? Requesting Physician: Dr Potts Consulting Physician: Dr Bolden History of Present Illness Jaime Cyr??is a 67-year-old male with history of active heroin abuse, protein calorie malnutrition and bilateral CLTI s/p left above the knee amputation in April complicated by pressure injury from dressing and delayed wound healing secondary to poor blood flow.?? He additionally has undergoneaortobifem and subsequent revascularizations of the RLE, most recently antegrade angiography of theright lower extremity, angioplasty of the popliteal artery , debridement of right lower extremity pressure wounds on 07/05. Unfortunately, the patient has not been to follow-up appointments since the time of his last intervention. He presents to [facility] on 11/04 from his PCP for concern of osteomyelitis of his multiple decubitus ulcers, including the right lateral hip, sacrum, coccyx and left AKA stump. MRI demonstrates cortical inhomogeneity within the remaining left femoral diaphysis which mayrepresent bone resorption or osteomyelitis of the left AKA stump for which Vascular Surgery is consulted.? Review of Systems General: No fevers or chills, no weight loss HEENT: No vision changes, headache or sore throat Resp: No dyspnea, cough Cardiac: no chest discomfort or palpitations Abdomen: no nausea, vomiting or diarrhea; no pain, bloating or soreness : no dysuria, changes to urination, flank or back pain Skin: chronic ulcers, unchanged per his own assessment MSK: no joint pain, edema Neuro: chronic weakness, muscle wasting Physical Exam Vitals & Measurements T:??98.1?F?? HR:??71??(Peripheral)?? RR:??16?? BP:??167/100?? SpO2:??98%?? WT:??44.4??kg?? General appearance: No apparent distress, appears older than stated age, malnourished Head: Normocephalic, atraumatic, poor dentition Cardiac: RRR, no murmurs or gallops. Respiratory: Clear to auscultation bilaterally. Abdomen: Soft, nontender, nondistended. No guarding or rebound. No palpable mass. Extremities: Right lower extremity marginally contractured, able to extend but with muscle spasticity, heel wound without open ulceration. Left AKA stump with moist??ulceration at the tip of diaphysis with surrounding erythema, thin and dry skin; unable to probe to bone however the patient was unable to tolerate this. Noted right lateral hip ulceration, wet and fibrinous base. Neurologic status: Alert and oriented x 3. No focal deficits. Psych: Mood and affect normal. Vascular:?? Right _BP AT/DP, TP PT, warm Assessment/Plan Jaime Cyr??is a 67-year-old male with history of active heroin abuse, protein calorie malnutrition, PVD s/p aortobifem with multiple failed attempts and revascularization in the left leg, bilateralCLTI s/p left above the knee amputation in April complicated by pressure injury from dressing and delayed wound healing secondary to poor blood flow. He presents to [facility] on 11/04 from his PCP for concern of osteomyelitis of his multiple chronic decubitus ulcers, including the??right ischial tuberosity/buttock, sacrum, left buttock/hip and left AKA stump. He was hemodynamically normal on arrival to the ED, with labs significant for??leukocytosis of 13.7, and anemia of 12.7/39.8, likely 2/2 chronic disease.??He was started on Vanc and Zosyn. MRI demonstrates cortical inhomogeneity within the remaining left femoral diaphysis which may represent bone resorption or osteomyelitis. The patient states his wound care is performed at home, by his , and he is bedbound. Per his own assessment, his wounds have not worsened in the past few months and are always painful. He has not experienced fever or chills. While the wound does not easily probe to bone, the patient is barely able to tolerate palpation. The ulceration is wet with a fibrinous base and surrounding erythema. In discussionwith the patient, he does wish to undergo surgical debridement of the L AKA stump wound as long as he is 'knocked out'. Plan for operative debridement this admission. ?? Recs: -Diet for now; OR timing TBD -Wound care: L AKA wound: Aquacel Ag to wound base, cover with DSD, change daily. -Consult EGS for ulcers of the right hip/buttock/sacrum -Heel offloading of the RLE -Continue IV V/Z, f/u blood cultures -Optimize nutritional status to promote wound healing -Continue DVT ppx with Lovenox; hold Eliquis (if still taking, it appears he does not take any of his prescribed meds outpatient) -Rest of care per primary team ?? Thank you for this consult. Vascular will continue to follow. [id number] Case discussed with attending: Dr Bolden Problem List/Past Medical History Ongoing Adenomatous polyposis coli Anemia Anxiety Arm weakness Arterial insufficiency Atrial fibrillation Bilateral Subclavian artery stenosis CABG x 2 - Coronary artery bypass grafts x 2 CAD - Coronary artery disease Carotid artery stenosis, total occlusion of Left ICA Cervical spondylosis COPD - Chronic obstructive pulmonary disease CVA - Cerebrovascular accident/TIA w/no residual CVD (cerebrovascular disease) GERD (gastroesophageal reflux disease) Glaucoma H/O herpes zoster Hypercholesterolemia Hypertension Insomnia Low back pain Old myocardial infarction, NSTEMI Opiate dependence 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 PAD (peripheral artery disease) Pulmonary nodule, right middle PVD (peripheral vascular disease) S/P hernia repair Seizure disorder Underweight Vitamin D deficiency Procedure/Surgical History Left common femoral to left axillary bypass graft using 8-mm ring Propaten Pembroke- Anthony graft.: 09/04/16 Coronary bypass grafting x2 with LEE to LAD and radial to obtuse marginal coronary artery and epiaortic probing of ascending aorta and placement of right pleural thoracostomy tube for pneumothorax.:05/18/09 Cardiac catheterization: 04/19/09 Colonoscopy: 07/2005 Colonoscopy polypectomy: 05/2005 Debridement, muscle and/or fascia (includes epidermis, dermis, and subcutaneous tissue, if performed); first 20 sq cm or less Hernia repair Bypass graft, with other than vein; femoral-popliteal, bilateral fem aortic bypass Home Medications Acetaminophen: 650 mg, By Mouth, Every 4 hours, PRN (Pain , Mild) Albuterol: 2 puffs, Inhalation, Every 4 hours, PRN (as needed) Albuterol: 2 puffs, Inhalation, Every 6 hours apixaban: 5 mg = 1 tablet, By Mouth, 2 times a day Aspirin: 81 mg = 1 tablet, By Mouth, Daily Atorvastatin: See Instructions, TAKE 1 TABLET BY MOUTH DAILY Cholecalciferol: 250 mcg = 1 capsule, By Mouth, Every week Clonidine: 0.1 mg = 1 tablet, By Mouth, 2 times a day Collagenase Topical: 1 application, Topically, Daily, apply moist dressing over the santyl, triad cream on surrouding skin and DSD over all Docusate: 100 mg = 1 capsule, By Mouth, 2 times a day Durable Medical Equipment: Ensure, By Mouth, 3 times a day levETIRAcetam: 500 mg = 1 tablet, By Mouth, 2 times a day Lidocaine Topical: Topically, Daily Melatonin: 9 mg, By Mouth, Daily at bedtime Metoprolol: 1 tablet, By Mouth, Daily Multivitamin With Minerals: 1 tablet, By Mouth, Daily Omeprazole: 20 mg = 1 tablet, By Mouth, Daily in AM Pentoxifylline: 1 tablet, By Mouth, 3 times a day Polyethylene Glycol 3350: 17 Gm, By Mouth, Daily, dissolve in water before taking Allergies Vioxx??(Hypertension) Social History Alcohol Use: Past. Employment/School Status: Disabled. Exercise Self assessment: Poor condition. Home/Environment Living situation: Home with assistance. Lives with: Spouse. Nutrition/Health Diet: Regular. Substance Abuse Use: Current. Type: Heroin. Other: 5 bags of heroin/day. Tobacco Use: 10 or more cigarettes (1/2 pack or more)/day in last 30 days. Other: 2 PPD. Family History Mother (): Bone cancer; Hyperlipidemia Father (): CAD - Coronary artery disease; Hyperlipidemia Brother: Alcoholism; CAD - Coronary artery disease; Hepatitis C; Hyperlipidemia Brother: Hyperlipidemia Other: Hyperlipidemia Lab Results Labs Last 24 Hours BLOOD COUNT & DIFF ? Event Name?? Event Result?? Date/Time?? WBC 11.7 k/mm3??High 11/06/22 00:41:00 RBC 5.1 m/mm3 11/06/22 00:41:00 Hgb 12.7 Gm/dL??Low 11/06/22 00:41:00 Hct 39.5 %??Low 11/06/22 00:41:00 MCV 77.5 femtoliters??Low 11/06/22 00:41:00 MCH 24.9 pg??Low 11/06/22 00:41:00 MCHC 32.2 g/dL??Low 11/06/22 00:41:00 Platelet Count 193 k/mm3 11/06/22 00:41:00 MPV 9.9 femtoliters 11/06/22 00:41:00 Nucleated RBC (Automated) 0 #/100 WBC'S 11/06/22 00:41:00 ? CHEM GENERAL ? Event Name?? Event Result?? Date/Time?? Sodium 135 mmol/L 11/06/22 00:41:00 Chloride 102 mmol/L 11/06/22 00:41:00 Bicarbonate Level 18 mmol/L??Low 11/06/22 00:41:00 Anion Gap 15 11/06/22 00:41:00 Glucose Level 97 mg/dL 11/06/22 00:41:00 BUN 11 mg/dL 11/06/22 00:41:00 Creatinine-Blood 0.9 mg/dL 11/06/22 00:41:00 Phosphorus 3.5 mg/dL 11/06/22 00:41:00 Magnesium 2.1 mg/dL 11/06/22 00:41:00 ? * Duong PATRICK, Yenny Cormier: MODIFY, MODIFY, MODIFY, MODIFY, PERFORM, MODIFY, MODIFY, MODIFY Event Display: Consultation Note Authored Date: Patient: ??JAIME CYR ? Age:??67 Years?Sex:??Male?:??1955?? Chief Complaint Multiple wounds, sent from PCP for concern for osteomyelitis Reason for Consultation L stump infection with underlying osteomyelitis History of Present Illness Date: 11/06/2022 Infectious Diseases Attending: Dr. Tipton Requesting Attending/Provider: Dr. Lukasz Potts Source of Information: [facility]IS, patient? The patient is a 67-year-old male with past medical history of CAD s/p CABG, CVA, A-fib, COPD, HTN,opioid and tobacco dependence, chronic decubitus ulcers, s/p L AKA (04/13/2022) with extensive vascular history (left subclavian artery occlusion??s/p a left common femoral to left axillary bypass, right femoral to left profunda bypass with PTFE graft in 07/2018, extensive revascularization surgery in 03/2022 for left critical limb ischemia), chronic decubitus ulcers previously seen by ID in June for concern of osteomyelitis with wounds to L thigh, R ischium, and sacrum??treated as a soft tissue infection as there was no plan for skin flap/closure. At that time he also underwent debridementR ischial wound with Dr. Saenz. Seems to have not followed up with vascular in the interim. He presented from his PCP due to concern for osteomyelitis due to wounds of the right heel, right ischialtuberosity/buttock, sacrum, left buttock/hip, and left AKA stump. He presented to the ER 11/04 disheveled and stated he was not taking care of himself and has not been taking medications. Initials vitals- temp 98.4, HR 88, RR 20, BP 132/76, O2 97%ra. WBC count 13.7, creatinine 0.8, ESR 55, CRP 0.9, COVID negative, blood cultures with NGTD. X- rays of L leg and pelvis were without signs of osteomyelitis. MRI of pelvis revealed soft tissue ulcer extending to the R ischial tuberosity without underlying osteo and cortical inhomogeneity within the remaining left femoral diaphysis which may representbone resorption or osteomyelitis without any drainable fluid collections. A swab of purulent drainage from his R buttocks was taken growing out Staph aureus. He was started on piperacillin/tazobactam and vancomycin and ID was consulted for osteomyelitis.??He states his wounds have been present for about 3 or so??months and his cares for them, no wound care visits. ?? Recent Antimicrobials: Piperacillin/tazobactam 11/04 to present Vancomycin 11/05 to present ?? Medications: Reviewed Antimicrobial Allergies: No known antimicrobial allergies. Family History:??No relevant history of infectious issues in first degree relatives.? Social History and Infectious Diseases Exposure History:??No recent travel.?? He states he liveswith his . He has a dog at home who does not lick his wounds. Hx of substance use he would not expand on. Review of Systems He denies fever, rigors, abdominal pain, nausea, vomiting, diarrhea, or rash. ?? Physical Exam Vitals & Measurements T:??98.1?F?? TMIN:??97.7?F?? TMAX:??98.1?F?? HR:??71??(Peripheral)?? RR:??18?? BP:??167/100?? SpO2:??98%?? WT:??44.4??kg?? GENERAL:Alert, in no acute distress.?? HEENT: Anicteric, no subconjunctival petechiae. Moist oral mucosa without lesions or thrush. CARDIOVASCULAR:??Regular rate and rhythm.?? RESPIRATORY:??Lungs clear to auscultation.?? GASTROINTESTINAL: Non-distended, normoactive bowel sounds, non-tender. MUSCULOSKELETAL: No gross deformity. s/p L AKA with erythema and foul smelling odor to stump, unable to probe due to discomfort, unclear depth. SKIN: ??No diffuse rash present. Multiple wounds viewed to heels and hips/buttocks as well as L stump. R hip wound with surrounding erythema, no exposed bone, fibrinous wound base. NEUROLOGICAL/PSYCH:??A&Ox3, grossly intact.?? LINES:??PIV without erythema or pain.? Micro: R buttocks wound swab 11/05: Staph aureus Blood cultures 11/04: NGTD Assessment/Plan The patient is a 67-year-old male with past medical history of CAD s/p CABG, CVA, A-fib, COPD, HTN,opioid and tobacco dependence, chronic decubitus ulcers, s/p L AKA (04/13/2022) with extensive vascular history (left subclavian artery occlusion??s/p a left common femoral to left axillary bypass, right femoral to left profunda bypass with PTFE graft in 07/2018, extensive revascularization surgery in 03/2022 for left critical limb ischemia), chronic decubitus ulcers. Concerning wounds to R hip without exposed bone which had drainage on arrival and was cultured thus far growing out Staph aureus. The L stump wound is also concerning with some surrounding erythema, discomfort, and foul smelling od or??with concern for underlying osteomyelitis of the remaining femur??on MRI. Given proximity of swabbed wound to groin, can continue both piperacillin/tazobactam and vancomycin pending further cultures. Please consult vascular surgery to weigh in on R hip and L stump wounds as debridement of stump may be needed. He would not elaborate on his illicit drug practices although note in [facility]IS referencing heroin use. Would recommend HIV, hepatitis C, Hep B coreAb, Hep B sAb, and Hep B sAg testing for completeness. ID is following with you. ?? - Continue piperacillin/tazobactam - Continue vancomycin - Obtain HIV, hepatitis C, Hep B coreAb, Hep B sAb, and Hep B sAg testing - Consult vascular surgery ? [facility]- Division of Infectious Diseases ?? Discussed with DrKelly??Saeed (This note was dictated using the cuaQea software and any typographical/grammatical errors were notdeliberate. Please contact provider for clarifications.) Problem List/Past Medical History Ongoing Adenomatous polyposis coli Anxiety Arterial insufficiency Atrial fibrillation Bilateral Subclavian artery stenosis CABG x 2 - Coronary artery bypass grafts x 2 CAD - Coronary artery disease Carotid artery stenosis, total occlusion of Left ICA Cervical spondylosis COPD - Chronic obstructive pulmonary disease CVA - Cerebrovascular accident/TIA w/no residual CVD (cerebrovascular disease) GERD (gastroesophageal reflux disease) Glaucoma H/O herpes zoster Hypercholesterolemia Hypertension Old myocardial infarction, NSTEMI Opiate dependence 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 (09/04/2016)???Coronary bypass grafting x2 with LEE to LAD and radial to obtuse marginal coronary arteryand epiaortic probing of ascending aorta and placement of right pleural thoracostomy tube for pneumothorax. (05/18/2009)???Cardiac catheterization (04/19/2009)???Colonoscopy polypectomy (05/2005)???Bypass graft, with other than vein; femoral-popliteal, bilateral fem aortic bypass???Debridement, muscle and/or fascia (includes epidermis, dermis, and subcutaneous tissue, if performed); first 20 sq cm or less???Hernia repair Allergies Vioxx??(Hypertension) Social History Alcohol Use: Past. Employment/School Status: Disabled. Exercise Self assessment: Poor condition. Home/Environment Living situation: Home with assistance. Lives with: Spouse. Nutrition/Health Diet: Regular. Substance Abuse Use: Current. Type: Heroin. Other: 5 bags of heroin/day. Tobacco Use: 10 or more cigarettes (1/2 pack or more)/day in last 30 days. Other: 2 PPD. Family History Alcoholism: Brother.Negative: Mother, Father, Brother and Other. Bone cancer: Mother. CAD - Coronary artery disease: Father and Brother.Negative: Mother, Brother and Other. Cancer of breast: Negative: Mother, Father, Brother, Brother and Other. Cancer of colon: Negative: Mother, Father, Brother, Brother and Other. Cancer of prostate: Negative: Mother, Father, Brother, Brother and Other. Diabetes mellitus type II: Negative: Mother, Father, Brother, Brother and Other. Hepatitis C: Brother. RA - Rheumatoid arthritis: Negative: Mother, Father, Brother, Brother and Other. Stroke: Negative: Mother, Father, Brother, Brother and Other. Thyroid disease: Negative: Mother, Father, Brother, Brother and Other. Lab Results Test Name Test Result Date/Time WBC 11.7 k/mm3 11/06/2022 00:41 EDT Hgb 12.7 Gm/dL 11/06/2022 00:41 EDT Platelet Count 193 k/mm3 11/06/2022 00:41 EDT Sed Rate 55 mm/hr 11/06/2022 00:41 EDT Sodium 135 mmol/L 11/06/2022 00:41 EDT Potassium 4.2 mmol/L 11/06/2022 00:41 EDT BUN 11 mg/dL 11/06/2022 00:41 EDT Creatinine-Blood 0.9 mg/dL 11/06/2022 00:41 EDT C-Reactive Protein 0.9 mg/dL 11/06/2022 00:41 EDT Diagnostic Results (11/06/2022 03:46 EDT MRI Pelvis W/O Contrast) IMPRESSION: Limited exam as described above Soft tissue ulcer extending to the right initial tuberosity without evidence of underlying initial tuberosity osteomyelitis Left lower extremity above the knee amputation Cortical inhomogeneity within the remaining left femoral diaphysis which may represent bone resorption or osteomyelitis. Relative preservation of femoral intramedullary signal Soft tissue edema or cellulitis at the amputation site and within the distal aspect of the vastus musculature. ??No definite drainable soft tissue abscess collection Femoral head avascular necrosis bilaterally [1] Images sacrum R hip L stump [1]??MRI Pelvis W/O Contrast; Edgardo Mott Jr, MD 11/06/2022 03:46 EDT * Saeed DILL, Tee Castro: PERFORM Event Display: Consultation Note Authored Date: I discussed the patient and reviewed the chart with??Yenny Watters, the ID CHAIR AND COUCH MAKER??on the date of service. ?? I agree with her recommendations.? Patient Care team information Care Team Personnel Name: Morena Abraham RN Position: [facility] SN RN Member Role: Primary Care Nurse Name: Jena Barron RN Position: S RN Member Role: Primary Care Nurse Name: Faith Cheek RN Position: [facility] RN Member Role: Primary Care Nurse Name: Rodney He RN Position: S RN Member Role: Primary Care Nurse Name: Barbara Snider RN Position: [facility] SN RN Member Role: Primary Care Nurse Name: Ana Maria Gonzalez RN Position: [facility] RN Member Role: Primary Care Nurse Name: Rae Vigil RN Position: [facility] RN Member Role: Primary Care Nurse Name: Johan Montes RN Position: [facility] RN Member Role: Primary Care Nurse Name: Tony Rhodes MD Position: [facility] Physician - Primary Care Member Role: PCP Address: Address: [address] [place] [id number] [[email or web address] Name: Rachel Brown RN Position: [facility] RN Member Role: Primary Care Nurse Name: Lucia Denton RN Position: [facility] RN Member Role: Primary Care Nurse Name: Quin Oliveira RN Position: S RN Member Role: Primary Care Nurse Name: Chelita Hernandez RN Position: [facility] RN Member Role: Primary Care Nurse Name: Lynette Leon RN Position: [facility] RN Member Role: Primary Care Nurse Name: Donald Purcell RN Position: [facility] RN Member Role: Primary Care Nurse Name: Shameka Hicks RN Position: S RN Member Role: Primary Care Nurse Name: Lynette Wooten RN Position: S RN Member Role: Primary Care Nurse Name: Batsheva Herring RN Position: [facility] OB RN Member Role: Primary Care Nurse Name: Roxana Hutchison RN Position: [facility] AMB Nurse Member Role: Primary Care Nurse Name: David Mensah RN Position: [facility] RN Member Role: Primary Care Nurse Name: Mary Mckeon RN Position: [facility] Nurse Member Role: Primary Care Nurse [facility]: [facility] Attending Position: [facility] ED Medicine MD Name: Ant Phillips Position: [facility] ED TA [facility] Member Role: Winch Derrick Operator Name: Ana Maria White RN Position: [facility] ED RN W/OE and Tasks Member Role: Patient Care Provider Name: Gina Del Castillo Position: [facility] ED OA Charge Member Role: ED Associate Care Team Related Persons Name: FANY CYR Address: [address] [address] Name: KITTY CYR
--- OUTSIDE RECORDS SUMMARY | 2023-04-27 13:33 | XMS_ITS | Continuity of Care Document ---
Author Name Unknown Organization [facility] [place] Address [address] [place] [address]- Care Team Providers Care Broadcast Field Supervisor Name Role Phone Tony Rhodes MD Primary Care Physician Encounter [facility] Date(s): 03/14/23 - 04/13/23 [facility] Adult [address] [place] [address]- Allergies, Adverse Reactions, Alerts Substance Reaction Severity Status Vioxx Hypertension Mild Active Immunizations Given and Recorded Vaccine Date Status Refusal Reason [id number] bivalent booster vax 03/11/22 Recorded influenza virus [...] (oldterm) 05/12/99 Given 1Location History: [facility] 2Admin Note: VIS GIVEN 3Location History: [facility] 4Admin Note: GIVEN BY JOHAN BOWERS BY JUDAH 5Admin Note: GIVEN IN [facility] 6Admin Note: [facility] 7Admin Note: H1N1 Medications acetaminophen 325 [...] Team Personnel Name: Morena Abraham RN Position: [facility] SN RN Member Role: Primary Care Nurse Name: Jena Barron RN Position: [facility] RN Member Role: Primary Care Nurse Name: Faith Cheek RN Position: [facility] RN Member Role: Primary Care Nurse Name: Rodney He RN Position: [facility] RN Member Role: Primary Care Nurse Name: Barbara Snider RN Position: [facility] SN RN Member Role: Primary Care Nurse Name: Ana Maria Gonzalez RN Position: [facility] RN Member Role: Primary Care Nurse Name: Rae Vigil RN Position: [facility] RN Member Role: Primary Care Nurse Name: Johan Montes RN Position: [facility] RN Member Role: Primary Care Nurse Name: Tony Rhodes MD Position: [facility] Physician - Primary Care Member Role: PCP Address: Address: [address] [place] [id number]- Name: Rachel Brown RN Position: [facility] RN Member Role: Primary Care Nurse Name: Lucia Denton RN Position: S RN Member Role: Primary Care Nurse Name: Quin Oliveira RN Position: [facility] RN Member Role: Primary Care Nurse Name: Chelita Hernandez RN Position: [facility] RN Member Role: Primary Care Nurse Name: Lynette Leon RN Position: [facility] RN Member Role: Primary Care Nurse Name: Donald Purcell RN Position: [facility] RN Member Role: Primary Care Nurse Name: Shameka Hicks RN Position: [facility] RN Member Role: Primary Care Nurse Name: Lynette Wooten RN Position: [facility] RN Member Role: Primary Care Nurse Name: Batsheva Herring RN Position: [facility] OB RN Member Role: Primary Care Nurse Name: Roxana Hutchison RN Position: [facility] AMB Nurse Member Role: Primary Care Nurse Name: David Mensah RN Position: [facility] RN Member Role: Primary Care Nurse Name: Mary Mckeon RN Position: [facility] AMB Nurse Member Role: Primary Care Nurse Care Team Related Persons Name: FANY CYR Address: [address] [address] Name: KITTY CYR
--- OUTSIDE RECORDS SUMMARY | 2023-04-27 13:33 | XMS_ITS | Continuity of Care Document ---
Author Name Unknown Organization [facility] Address [address] [place] [address]- Care Team Providers Care Automotive Teacher Name Role Phone Tony Rhodes MD Primary Care Physician [facility]counter [facility] Date(s): 05/07/22 - 06/06/22 [facility] [address] [place] [address]- Allergies, Adverse Reactions, Alerts Substance Reaction Severity [...] Pneumococcal Vacc (oldterm) 05/12/99 Given 1Location History: [facility] 2Admin Note: VIS GIVEN 3Location History: [facility] 4Admin Note: GIVEN BY ANDIE DOC BY JUDAH 5Admin Note: GIVEN IN [facility] 6Admin Note: [email or web address] [facility] 7Admin Note: H1N1 Medications acetaminophen 325 [...] 5 Refills, Maintenance, 07/29/19 13:25:00 EDT, [place]der, [facility], 167, cm, 04/30/19 15:55:00 EST, Height, 70.2, kg, 07/31/18 6:33:00EDT, Dry Weight Start Date: 07/29/19 Status: Ordered amiodarone 200 mg oral tablet 2, tablet, By Mouth, 2 times a day, # 120 tablet, Refills 6, Maintenance, 02/18/22 9:48:00 EDT, Route to Pharmacy Electronically, [facility], 172.7, cm, 01/18/22 14:53:00 EDT, Height, [...] 3 Refills, Soft Stop, 09/05/21 15:18:00 EDT, [facility], 167, cm, 08/20/21 12:32:00 EDT, Height [...] 02/18/22 9:47:00 EDT, Route to Pharmacy Electronically, [facility], 172.7, cm, 01/18/22 14:53:00 EDT, Height, [...] 0 Refills, Maintenance, 02/25/22 12:41:00 EDT, Tablet, [facility], 168, cm, 02/25/22 12:11:00 EDT, Height, [...] 25 tablet, 0 Refills, 10/18/20 16:42:00 EDT, [facility], 167, cm, 08/21/20 14:59:00 EDT, Height Start Date: 10/18/20 Status: Ordered omeprazole 20 mg oral delayed release tablet 1 tablet = 20 mg, By Mouth, Daily in AM, Maintenance, 09/21/21 16:06:00 EDT Start Date: 09/21/21 Status: Ordered pentoxifylline 400 mg oral tablet, extended release 1, tablet, By Mouth, 3 times a day, # 90 tablet, Refills 11, Route to Pharmacy Electronically, [facility], 167, cm, 08/20/21 12:32:00 EDT, Height [...] RN Member Role: Primary Care Nurse Name: LawandaJena Huff RN Position: [facility] RN Member Role: Primary Care Nurse Name: Ana Maria Gonzalez RN Position: [facility] RN Member Role: Primary Care Nurse Name: Rae Vigil RN Position: [facility] ED RN W/OE and Tasks Member Role: Primary Care Nurse Name: Tony Rhodes MD Position: [facility] Primary Care Physician Member Role: PCP Address: Address: [address] [place] [address] [id number] Name: Rachel Brown RN Position: [facility] RN Member Role: Primary Care Nurse Name: Lucia Denton RN Position: [facility] RN Member Role: Primary Care Nurse Name: Chelita Hernandez RN Position: [facility] RN Member Role: Primary Care Nurse Name: Elizabeth Taylor Position: [facility] RN Member Role: Primary Care Nurse Name: Batsheva Herring RN Position: [facility] AMB Nurse Member Role: Primary Care Nurse Name: Roxana Hutchison RN Position: [facility] RN Member Role: Primary Care Nurse Name: Mary Mckeon RN Position: [facility] AMB Nurse Member Role: Primary Care Nurse Care Team Related Persons Name: FANY CYR Address: home [address] [place] [address] Name: KITTY CYR Address: [place] [address]
--- OUTSIDE RECORDS SUMMARY | 2023-04-27 13:33 | XMS_ITS | Continuity of Care Document ---
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 Glassware Maker Demonstrator Name Role Phone Meagan DILL, Tony Gaines Primary Care Physician [facility] - 08/08/22 [facility] Adult [address] [place] [address]- Attending Physician: Clara Padilla NP Allergies, Adverse Reactions, Alerts Substance Reaction Severity Status Vioxx Hypertension Mild Active Immunizations Given and Recorded Vaccine Date Status Refusal Reason [id number] bivalent booster vax 03/11/22 Recorded influenza virus [...] Pneumococcal Vacc (oldterm) 05/12/99 Given 1Location History: [facility] 2Admin Note: VIS GIVEN 3Location History: [facility] 4Admin Note: GIVEN BY JOHAN BOWERS BY JUDAH 5Admin Note: GIVEN IN CLINIC SHAM 6Admin Note: [employer] [facility] 7Admin Note: H1N1 Medications acetaminophen 325 [...] Gm, 0 Refills, Maintenance, 08/01/22 15:26:00 EDT, [facility], Partial fill upon patient request if the prescription is for a schedule II opioid drug., 170, cm, 08/01/22 14:54:00 EDT, Height, 45.7, kg, 03... Start Date: 08/01/22 Status: Ordered albuterol 90 mcg/inh inhalation powder 2 puffs, Inhalation, Every 4 hours, PRN as needed, # 1 each, 5 Refills, Maintenance, 07/29/19 13:25:00 EDT, Powder, [facility], 167, cm, 04/30/19 15:55:00 EST, Height, [...] 3 Refills, Soft Stop, 09/05/21 15:18:00 EDT, [facility], 167, cm, 08/20/21 12:32:00 EDT, Height Start Date: 09/05/21 Status: Ordered Colace sodium 100 mg oral capsule 100 mg, 1, capsule, By Mouth, 2 times a day, # 60 capsule, Refills 0, Tot. Refills 0, Maintenance, 06/24/22 16:00:00 EST, Route to Pharmacy Electronically, [facility], Partial fill upon patient request if the prescription is for a schedule II opi... Start Date: 06/24/22 Status: Ordered collagenase topical 250 u/gm ointment 1 application, Topically, Daily, apply moist dressing over the santyl, triad cream on surrouding skin and DSD over all, # 90 Gm, 0 Refills, Maintenance, 07/08/22 13:04:00 EST, Ointment, [facility], Partial fill upon patient request if th... Start Date: 07/08/22 Status: Ordered Eliquis 5 mg oral tablet 1 tablet = 5 mg, By Mouth, 2 times a day, # 60 tablet, 0 Refills, Maintenance, 02/25/22 12:41:00 EDT, Tablet, [facility], 168, cm, 02/25/22 12:11:00 EDT, Height, 57.7, kg, 02/22/22 23:09:00 EDT,Dry Weight Start Date: 02/25/22 Stop Date: 03/27/22 Status: Ordered Keppra 500 mg oral tablet 1 tablet = 500 mg, By Mouth, 2 times a day, # 60 tablet, 6 Refills, Maintenance, 03/01/21 14:03:00 EDT, Tablet, [facility], Partial fill upon patient request if [...] tablet, 2 Refills, Maintenance, 02/18/22 9:48:00 EDT, [facility], 172.7, cm, 01/18/22 14:53:00 EDT, Height, 68.2, kg, 09/21/21 17:43:00 EDT, Dry Weight Start Date: 02/18/22 Status: Ordered MiraLax oral powder for reconstitution = 17 Gm, By Mouth, Daily, dissolve in water before taking, # 255 Gm, 0 Refills, Maintenance, 07/08/22 9:59:00 EST, REC Powder, [facility], Partial fill upon patient request [...] 09/21/21 Status: Ordered oxyCODONE 5 mg oral capsule 1 capsule = 5 mg, By Mouth, Every 6 hours, PRN as needed for pain, # 20 capsule, 0 Refills, Acute 08/19/22 18:00:00 EDT, 08/01/22 15:31:00 EDT, Capsule, [facility], Partial fill upon patient request if the prescription is for a schedule II opioid... Start Date: 08/01/22 Stop Date: 08/19/22 Status: Ordered oxyCODONE 5 mg oral tablet 5 mg, 1, tablet, By Mouth, Every 6 hours, PRN, mass pat reviewed take colace, # 20 tablet, Refills 0, Tot. Refills 0, Maintenance, as needed for pain, 07/08/22 9:58:00 EST, Route to Pharmacy Electronically, [facility], Partial fill upon... Start Date: 07/08/22 Status: Ordered pentoxifylline 400 mg oral tablet, extended release 1, tablet, By Mouth, 3 times a day, # 90 tablet, Refills 11, Route to Pharmacy Electronically, [facility], 167, cm, 08/20/21 12:32:00 EDT, Height Start Date: 09/05/21 Status: Ordered Vitamin D3 10,000 intl units oral capsule 1 capsule = 250 mcg, By Mouth, Every week, # 6 capsule, 0 Refills, Maintenance, 12/19/21 12:19:00 EDT, Capsule, [facility], Partial fill upon patient request if [...] oldest [Reference Range]: 1 Height 170 cm (08/01/22 2:54 PM) Oxygen Saturation [94-100 %] 97 % (08/01/22 2:54 PM) Pulse Rate [55-90 bpm] 64 bpm (08/01/22 2:54 PM) Blood Pressure [90-138/55-84 mm Hg] 109/ 61mm Hg (08/01/22 2:54 PM) Respiratory Rate [16-30 br/min] 16 br/mi n (08/01/22 2:54 PM) Temperature [96.8-100.4 DegF] 97.9 DegF (08/01/22 2:54 PM) Mode of Delivery (Oxygen) Room air (08/01/22 2:54 PM) Blood pressure sites Arm, right (08/01/22 2:54 PM) Temperature Route Oral (08/01/22 2:54 PM) Social History Social History Type Response Smoking Status Current every day sm oker; Other: 1-1/2 packs of cigarettes daily; entered on: 10/23/17 Sex Patient Care team information Care Team Personnel Name: Morena Abraham RN Position: [facility] RN Member Role: Primary Care Nurse Name: Jena Barron RN Position: S RN Member Role: Primary Care Nurse Name: Faith Cheek RN Position: S RN Member Role: Primary Care Nurse Name: Rodney He RN Position: S RN Member Role: Primary Care Nurse Name: Ana Maria Gonzalez RN Position: S RN Member Role: Primary Care Nurse Name: Rae Vigil RN Position: [facility] RN Member Role: Primary Care Nurse Name: Johan Montes RN Position: [facility] RN Member Role: Primary Care Nurse Name: Tony Rhodes MD Position: [facility] Primary Care Physician Member Role: PCP Address: Address: [address] [place] [id number] Name: Milad Rodríguez Position: [facility] RN Member Role: Primary Care Nurse Name: Rachel Brown RN Position: [facility] RN Member Role: Primary Care Nurse Name: Lucia Denton RN Position: [facility] RN Member Role: Primary Care Nurse Name: Bill Velazquez RN Position: [facility] RN Member Role: Primary Care Nurse Name: Chelita Hernandez RN Position: [facility] RN Member Role: Primary Care Nurse Name: Donald Purcell RN Position: [facility] RN Member Role: Primary Care Nurse Name: Shameka Hicks RN Position: [facility] RN Member Role: Primary Care Nurse Name: Lynette Wooten RN Position: [facility] RN Member Role: Primary Care Nurse Name: Batsheva Herring RN Position: [facility] OB RN Member Role: Primary Care Nurse Name: Barbara Post RN Position: [facility] RN Member Role: Primary Care Nurse Name: Roxana Hutchison RN Position: [facility] RN Member Role: Primary Care Nurse Name: David Mensah RN Position: [facility] RN Member Role: Primary Care Nurse Name: Mauro Mckeon RNantha Position: [facility] AMB Nurse Member Role: Primary Care Nurse Care Team Related Persons Name: FANY CYR Address: home [address] [place] [address] Name: KITTY CYR Address: [place] [address]
--- OUTSIDE RECORDS SUMMARY | 2023-04-27 13:33 | XMS_ITS | Continuity of Care Document ---
Author Name Unknown Organization [facility] Address [address] [place] [address]- Care Team Providers Care Sr Vice President Name Role Phone Tony Rhodes MD Primary Care Physician [facility]23 - 02/20/23 [facility] Adult [address] [place] [address]- Allergies, Adverse Reactions, Alerts Substance Reaction Severity Status Vioxx Hypertension Mild Active Immunizations Given and Recorded Vaccine Date Status Refusal Reason [id number] bivalent booster vax 03/11/22 Recorded influenza virus [...] (oldterm) 05/12/99 Given 1Location History: [facility] 2Admin Note: VIS GIVEN 3Location History: [facility] 4Admin Note: GIVEN BY JOHAN BOWERS BY JUDAH 5Admin Note: GIVEN IN CLINIC SHAM 6Admin Note: [employer] [facility] 7Admin Note: H1N1 Medications acetaminophen 325 [...] Team Personnel Name: Morena Abraham RN Position: [facility] SN RN Member Role: Primary Care Nurse Name: Jena Barron RN Position: [facility] RN Member Role: Primary Care Nurse Name: Faith Cheek RN Position: [facility] RN Member Role: Primary Care Nurse Name: Rodney He RN Position: [facility] RN Member Role: Primary Care Nurse Name: Barbara Snider RN Position: [facility] SN RN Member Role: Primary Care Nurse Name: Ana Maria Gonzalez RN Position: [facility] RN Member Role: Primary Care Nurse Name: Rae Vigil RN Position: [facility] RN Member Role: Primary Care Nurse Name: Johan Montes RN Position: [facility] RN Member Role: Primary Care Nurse Name: Tony Rhodes MD Position: [facility] Physician - Primary Care Member Role: PCP Address: Address: [address] [place] [id number]- Name: Rachel Brown RN Position: [facility] RN Member Role: Primary Care Nurse Name: Lucia Denton RN Position: S RN Member Role: Primary Care Nurse Name: Quin Oliveira RN Position: [facility] RN Member Role: Primary Care Nurse Name: Chelita Hernandez RN Position: [facility] RN Member Role: Primary Care Nurse Name: Lynette Leon RN Position: [facility] RN Member Role: Primary Care Nurse Name: Donald Purcell RN Position: [facility] RN Member Role: Primary Care Nurse Name: Shameka Hicks RN Position: [facility] RN Member Role: Primary Care Nurse Name: Lynette Wooten RN Position: [facility] RN Member Role: Primary Care Nurse Name: Batsheva Herring RN Position: [facility] OB RN Member Role: Primary Care Nurse Name: Roxana Hutchison RN Position: [facility] AMB Nurse Member Role: Primary Care Nurse Name: David Mensah RN Position: [facility] RN Member Role: Primary Care Nurse Name: Mary Mckeon RN Position: [facility] AMB Nurse Member Role: Primary Care Nurse Care Team Related Persons Name: FANY CYR Address: [address] [address] Name: KITTY CYR
--- OUTSIDE RECORDS SUMMARY | 2023-04-27 13:33 | XMS_ITS | Continuity of Care Document ---
Author Name Unknown Organization [facility] Address [address] [place] [address]- Care Team Providers Care Roll Up Helper Name Role Phone Tony Rhodes MD Primary Care Physician [facility]22 - 07/06/22 [facility] [address] [place], [place] [address] Allergies, Adverse Reactions, Alerts Substance Reaction Severity [...] Pneumococcal Vacc (oldterm) 05/12/99 Given 1Location History: [facility] 2Admin Note: VIS GIVEN 3Location History: [facility] 4Admin Note: GIVEN BY ANDIE DOC BY JUDAH 5Admin Note: GIVEN IN CLINIC SHAM 6Admin Note: [facility] 7Admin Note: H1N1 Medications acetaminophen [...] 02/18/22 9:48:00 EDT, Route to Pharmacy Electronically, [facility], 172.7, cm, 01/18/22 14:53:00 EDT, Height, 68.2, kg, 09/21/21 17:43:00 EDT, Dry Weight Start Date: 02/18/22 Status: Ordered aquacel Ag aquacel Ag, See Instructions, # 5 each, Refills 5, Tot. Refills 5, Maintenance, use as directed, 06/24/22 15:59:00 EST, Supply Start Date: 06/24/22 Status: Ordered aspirin 81 mg oral delayed release tablet 1 tablet = 81 mg, By Mouth, Daily, Maintenance, 09/21/21 16:04:00 EDT Start Date: 09/21/21 Status: Ordered atorvastatin 40 mg oral tablet See Instructions, TAKE 1 TABLET BY MOUTH DAILY, # 90 tablet, 3 Refills, Soft Stop, 09/05/21 15:18:00 EDT, [facility], 167, cm, 08/20/21 12:32:00 EDT, Height Start Date: 09/05/21 Status: Ordered Augmentin 875 mg-125 mg oral tablet 1 tablet, By Mouth, Every 12 hours, for 14 days, # 28 tablet, 0 Refills, Acute 07/08/22 15:54:00 EST, 06/24/22 15:54:00 EST, Tablet, [facility], Partial fill upon patient request if the prescription is for a schedule II opioid drug., 170, cm, .. Start Date: 06/24/22 Stop Date: 07/08/22 Status: Ordered bisacodyl 10 mg rectal suppository [...] 02/18/22 9:47:00 EDT, Route to Pharmacy Electronically, [facility], 172.7, cm, 01/18/22 14:53:00 EDT, Height, 68.2, kg, 09/21/21 17:43:00 EDT, Dry Weight Start Date: 02/18/22 Status: Ordered Colace sodium 100 mg oral capsule 100 mg, 1, capsule, By Mouth, 2 times a day, # 60 capsule, Refills 0, Tot. Refills 0, Maintenance, 06/24/22 16:00:00 EST, Route to Pharmacy Electronically, [facility], Partial fill upon patient request if the prescription is for a schedule II opi... Start Date: 06/24/22 Status: Ordered Complete blood count with differential [...] a schedule II opioid drug., 167, cm, 10/21/21 13:34:00 EDT, H... Start Date: 03/01/21 Status: [...] tablet, 2 Refills, Maintenance, 02/18/22 9:48:00 EDT, [facility], 172.7, cm, 01/18/22 14:53:00 EDT, Height, [...] 25 tablet, 0 Refills, 10/18/20 16:42:00 EDT, [facility], 167, cm, 08/21/20 14:59:00 EDT, Height Start Date: 10/18/20 Status: Ordered omeprazole 20 mg oral delayed release tablet 1 tablet = 20 mg, By Mouth, Daily in AM, Maintenance, 09/21/21 16:06:00 EDT Start Date: 09/21/21 Status: Ordered oxyCODONE 5 mg oral tablet 5 mg, 1, tablet, By Mouth, 3 times a day, PRN, mass pat reviewed take colace, # 28 tablet, Refills 0, Tot. Refills 0, Maintenance, as needed for pain, 06/24/22 16:01:00 EST, Route to Pharmacy Electronically, [facility], Partial fill upon patient... Start Date: 06/24/22 Status: Ordered pentoxifylline 400 mg oral tablet, extended release 1, tablet, By Mouth, 3 times a day, # 90 tablet, Refills 11, Route to Pharmacy Electronically, [facility], 167, cm, 08/20/21 12:32:00 EDT, Height Start Date: 09/05/21 Status: Ordered plain 1/4 inch nugage plain 1/4 inch nugage, See Instructions, # 1 each, Refills 0, Tot. Refills 0, Maintenance, use as directed, 06/24/22 15:58:00 EST, Supply Start Date: 06/24/22 Status: Ordered Remove Patch 1 each, Topically, [...] Confirmed Active Wrist pain Confirmed Active 1colo 2005 polyp, refuses repeat colo 2010 2LUE 3post [...] Care Nurse Name: Rae Vigil RN Position: S RN Member Role: Primary Care Nurse Name: Tony Rhodes MD Position: [facility] Primary Care Physician Member Role: PCP Address: Address: [address] [place] [id number]- Name: Rachel Brown RN Position: [facility] RN Member Role: Primary Care Nurse Name: Lucia Denton RN Position: [facility] RN Member Role: Primary Care Nurse Name: Chelita Hernandez RN Position: [facility] RN Member Role: Primary Care Nurse Name: Donald Purcell RN Position: [facility] RN Member Role: Primary Care Nurse Name: Lynette Wooten RN Position: [facility] RN Member Role: Primary Care Nurse Name: Batsheva Herring RN Position: [facility] AMB Nurse Member Role: Primary Care Nurse Name: Barbara Post RN Position: [facility] RN Member Role: Primary Care Nurse Name: Roxana Hutchison RN Position: [facility] RN Member Role: Primary Care Nurse Name: Mary Mckeon RN Position: [facility] AMB Nurse Member Role: Primary Care Nurse Care Team Related Persons Name: FANY CYR Address: home [address] [place] [address] Name: KITTY CYR Address: [place] [address]
--- OUTSIDE RECORDS SUMMARY | 2023-04-27 13:34 | XMS_ITS | Continuity of Care Document ---
Author Name Unknown Organization [facility] Address [address] [place] [address]- Care Team Providers Care Pool Table Operator Name Role Phone Tony Rhodes MD Primary Care Physician [facility]22 - 07/11/22 [facility] [address] [place], [place] [address] Allergies, Adverse Reactions, Alerts Substance Reaction Severity [...] Pneumococcal Vacc (oldterm) 05/12/99 Given 1Location History: [facility] 2Admin Note: VIS GIVEN 3Location History: [facility] 4Admin Note: GIVEN BY ANDIE DOC BY JUDAH 5Admin Note: GIVEN IN CLINIC SHAM 6Admin Note: [facility] 7Admin Note: H1N1 Medications acetaminophen [...] 5 Refills, Maintenance, 07/29/19 13:25:00 EDT, Powder, [facility], 167, cm, 04/30/19 15:55:00 EST, Height, [...] 3 Refills, Soft Stop, 09/05/21 15:18:00 EDT, [facility], 167, cm, 08/20/21 12:32:00 EDT, Height Start Date: 09/05/21 Status: Ordered Colace sodium 100 mg oral capsule 100 mg, 1, capsule, By Mouth, 2 times a day, # 60 capsule, Refills 0, Tot. Refills 0, Maintenance, 06/24/22 16:00:00 EST, Route to Pharmacy Electronically, [facility], Partial fill upon patient request if the prescription is for a schedule II opi... Start Date: 06/24/22 Status: Ordered collagenase topical 250 u/gm ointment 1 application, Topically, Daily, apply moist dressing over the santyl, triad cream on surrouding skin and DSD over all, # 90 Gm, 0 Refills, Maintenance, 07/08/22 13:04:00 EST, Ointment, [facility], Partial fill upon patient request if th... Start Date: 07/08/22 Status: Ordered Eliquis 5 mg oral tablet 1 tablet = 5 mg, By Mouth, 2 times a day, # 60 tablet, 0 Refills, Maintenance, 02/25/22 12:41:00 EDT, Tablet, [facility], 168, cm, 02/25/22 12:11:00 EDT, Height, 57.7, kg, 02/22/22 23:09:00 EDT,Dry Weight Start Date: 02/25/22 Stop Date: 03/27/22 Status: Ordered Keppra 500 mg oral tablet 1 tablet = 500 mg, By Mouth, 2 times a day, # 60 tablet, 6 Refills, Maintenance, 03/01/21 14:03:00 EDT, Tablet, [facility], Partial fill upon patient request if the prescription is for a schedule II opioid drug., 167, cm, 03/01/21 13:34:00 EDT, H... Start Date: 03/01/21 Status: Ordered levoFLOXacin 750 mg oral tablet 1 tablet = 750 mg, By Mouth, Every 48 hours, for 7 days, # 4 tablet, 0 Refills, Acute 07/15/22 9:15:00 EST, 07/08/22 9:15:00 EST, Tablet, [facility], Partial fill upon patient request if the prescription is for a schedule II opioid drug.... Start Date: 07/08/22 Stop Date: 07/15/22 Status: Ordered lidocaine 5% topical film Topically, [...] tablet, 2 Refills, Maintenance, 02/18/22 9:48:00 EDT, [facility], 172.7, cm, 01/18/22 14:53:00 EDT, Height, 68.2, kg, 09/21/21 17:43:00 EDT, Dry Weight Start Date: 02/18/22 Status: Ordered MiraLax oral powder for reconstitution = 17 Gm, By Mouth, Daily, dissolve in water before taking, # 255 Gm, 0 Refills, Maintenance, 07/08/22 9:59:00 EST, REC Powder, [facility], Partial fill upon patient request if [...] 07/08/22 9:58:00 EST, Route to Pharmacy Electronically, [facility], Partial fill upon... Start Date: 07/08/22 Status: Ordered pentoxifylline 400 mg oral tablet, extended release 1, tablet, By Mouth, 3 times a day, # 90 tablet, Refills 11, Route to Pharmacy Electronically, [facility], 167, cm, 08/20/21 12:32:00 EDT, Height Start Date: 09/05/21 Status: Ordered sulfamethoxazole-trimethoprim 800 mg-160 mg oral tablet 1 tablet, By Mouth, 2 times a day, for 7 days, # 14 tablet, 0 Refills, Acute 07/15/22 9:14:00 EST, 07/08/22 9:14:00 EST, Tablet, [facility], Partial fill upon patient request if the prescription is for a schedule II opioid drug., 1 table... Start Date: 07/08/22 Stop Date: 07/15/22 Status: Ordered Vitamin D3 10,000 intl units [...] Personnel Name: Ana Maria Cruz RN Position: [facility] RN Member Role: Primary Care Nurse Name: Morena Abraham RN Position: [facility] SN RN Member Role: Primary Care Nurse Name: Jena Barron RN Position: [facility] RN Member Role: Primary Care Nurse Name: Faith Cheek RN Position: [facility] RN Member Role: Primary Care Nurse Name: Rodney He RN Position: [facility] RN Member Role: Primary Care Nurse Name: Ana Maria Gonzalez RN Position: [facility] RN Member Role: Primary Care Nurse Name: Rae Vigil RN Position: [facility] RN Member Role: Primary Care Nurse Name: Tony Rhodes MD Position: [facility] Primary Care Physician Member Role: PCP Address: Address: [address] [place] [email or web address] Name: Rachel Brown RN Position: [facility] RN Member Role: Primary Care Nurse Name: Lucia Denton RN Position: [facility] RN Member Role: Primary Care Nurse Name: Chelita Hernandez RN Position: [facility] RN Member Role: Primary Care Nurse Name: Donald Purcell RN Position: [facility] RN Member Role: Primary Care Nurse Name: Lynette Wooten RN Position: [facility] RN Member Role: Primary Care Nurse Name: Batsheva Herring RN Position: [facility] NELIDA Nurse Member Role: Primary Care Nurse Name: Barbara Post RN Position: [facility] RN Member Role: Primary Care Nurse Name: Roxana Hutchison RN Position: [facility] RN Member Role: Primary Care Nurse Name: Mary Mckeon RN Position: [facility] Nurse Member Role: Primary Care Nurse Care Team Related Persons Name: FANY CYR Address: home [address] [place] [id number] Name: KITTY [place]: [place] [address]
--- OUTSIDE RECORDS SUMMARY | 2023-04-27 13:34 | XMS_ITS | Continuity of Care Document ---
Author Name Unknown Organization [facility] [place] Address [address] [place] [address]- Care Team Providers Care Program Manager Rn Name Role Phone Tony Rhodes MD Primary Care Physician [phone] [facility] 11/21/22 - 11/28/22 [facility] Adult [address] [place] [address]- Encounter Diagnosis Osteomyelitis(Discharge Diagnosis) - 11/21/22 Unilateral AKA(Discharge Diagnosis) - 11/21/22 Skin ulcer of multiple sites(Discharge Diagnosis) - 11/21/22 Atrial fibrillation(Discharge Diagnosis) - 11/21/22 Current tobacco use, 1-1.5 ppd, quit 08/14/2016(Discharge Diagnosis) - 11/21/22 Opiate dependence(Discharge Diagnosis) - 11/21/22 Attending Physician: Not on Staff, Attending MD Allergies, Adverse Reactions, Alerts Substance Reaction Severity Status Vioxx Hypertension Mild Active Immunizations Given and Recorded Vaccine Date Status Refusal Reason [id number] bivalent booster vax 03/11/22 Recorded influenza virus [...] (oldterm) 05/12/99 Given 1Location History: [facility] 2Admin Note: VIS GIVEN 3Location History: [facility] 4Admin Note: GIVEN BY JOHAN DOC BY JUDAH 5Admin Note: GIVEN IN CLINIC [facility] 6Admin Note: [facility] 7Admin Note: H1N1 Medications acetaminophen 325 [...] Gm, 0 Refills, Maintenance, 11/21/22 14:00:00 EDT, [facility], Partial fill upon patient request if [...] 12/14/22 21:00:00 EDT, 11/13/22 12:05:00 EDT, Ointment, [facility], Partial fill upon patient request if the prescription is for a schedule II opioid drug., Topically Daily, 170, cm, 06... Start Date: 11/13/22 Stop Date: 12/14/22 Status: Ordered Eliquis 5 mg oral tablet 1 tablet = 5 mg, By Mouth, 2 times a day, # 60 tablet, 2 Refills, Maintenance, 09/05/22 13:34:00 EDT, Tablet, [facility], 170, cm, 08/01/22 14:54:00 EDT, Height, [...] 2LUE 3post cabg afib, s/p cva 4LUE Diagnosis Diagnosis Type Effective Dates Health Status Clinical Service Informant Osteomyelitis Discharge Diagnosis 11/21/22 Unilateral AKA Discharge Diagnosis 11/21/22 Skin ulcer of multiple sites Discharge Diagnosis 11/21/22 Atrial fibrillation Discharge Diagnosis 11/21/22 Current tobacco use, 1-1.5 ppd, quit 08/14/2016 Discharge Diagnosis 11/21/22 Opiate dependence Discharge Diagnosis 11/21/22 Vital Signs Most recent to oldest [Reference Range]: 1 Height 170 cm (11/21/22 1:36 PM) Oxygen Saturation [94-100 %] 98 % (11/21/22 1:36 PM) Pulse Rate [55-90 bpm] 130 bpm *H* (11/21/22 1:36 PM) Blood Pressure [90-138/55-84 mm Hg] 92/5 8mm Hg (11/21/22 1:36 PM) Respiratory Rate [16-30 br/min] 20 br/mi n (11/21/22 1:36 PM) Temperature [96.8-100.4 DegF] 97.9 DegF (11/21/22 1:36 PM) Mode of Delivery (Oxygen) Room air (11/21/22 1:36 PM) Blood pressure sites Arm, left (11/21/22 1:36 PM) Temperature Route Oral (11/21/22 1:36 PM) Social History Social History Type Response Smoking Status 10 or more cigarette s (1/2 pack or more)/day in last 30 days; Other: 2 PPD; entered on: 11/04/22 Sex Patient Care team information Care Team Personnel Name: Morena Abraham RN Position: [facility] SN RN Member Role: Primary Care Nurse Name: Jena Barron RN Position: [facility] RN Member Role: Primary Care Nurse Name: Faith Cheek RN Position: [facility] RN Member Role: Primary Care Nurse Name: Rodney He RN Position: [facility] RN Member Role: Primary Care Nurse Name: Barbara Snider RN Position: [facility] SN RN Member Role: Primary Care Nurse Name: Ana Maria Gonzalez RN Position: [facility] RN Member Role: Primary Care Nurse Name: Rae Vigil RN Position: [facility] RN Member Role: Primary Care Nurse Name: Johan Montes RN Position: [facility] RN Member Role: Primary Care Nurse Name: Tony Rhodes MD Position: [facility] Physician - Primary Care Member Role: PCP Address: Address: [address] [place] [id number] Name: Rachel Brown RN Position: [facility] RN Member Role: Primary Care Nurse Name: Lucia Denton RN Position: [facility] RN Member Role: Primary Care Nurse Name: Quin Oliveira RN Position: [facility] RN Member Role: Primary Care Nurse Name: Chelita Hernandez RN Position: [facility] RN Member Role: Primary Care Nurse Name: Lynette Leon RN Position: [facility] RN Member Role: Primary Care Nurse Name: Donald Purcell RN Position: [facility] RN Member Role: Primary Care Nurse Name: Shameka Hicks RN Position: [facility] RN Member Role: Primary Care Nurse Name: Lynette Wooten RN Position: [facility] RN Member Role: Primary Care Nurse Name: Batsheva Herring RN Position: [facility] OB RN Member Role: Primary Care Nurse Name: Roxana Hutchison RN Position: [facility] AMB Nurse Member Role: Primary Care Nurse Name: David Mensah RN Position: [facility] RN Member Role: Primary Care Nurse Name: Mary Mckeon RN Position: [facility] AMB Nurse Member Role: Primary Care Nurse Care Team Related Persons Name: FANY CYR Address: [address] [address] Name: KITTY CYR
--- OUTSIDE RECORDS SUMMARY | 2023-04-27 13:34 | XMS_ITS | Continuity of Care Document ---
Author Name Unknown Organization [facility] [place] Address [address] [place] [address]- Care Team Providers Care Tailings Worker Name Role Phone Meagan DILL, Tony Gaines Primary Care Physician [facility] 11[facility]14[facility]22 - 12/20/22 [facility] Adult [address] [place] [address]- Attending Physician: Clara Aguilar MD Referring Physician: Tony Rhodes MD Allergies, Adverse Reactions, Alerts Substance Reaction Severity Status Vioxx Hypertension Mild Active Immunizations Given and Recorded Vaccine Date Status Refusal Reason [id number] bivalent booster vax 03/11/22 Recorded influenza virus [...] 23-valent vaccine 07/12/20 Given pneumococcal 23-valent vaccine 3/14/14 Given Influenza Virus Vaccine (oldterm) 03/13/20 Recorde [...] Pneumococcal Vacc (oldterm) 05/12/99 Given 1Location History: [facility] 2Admin Note: VIS GIVEN 3Location History: [facility] 4Admin Note: GIVEN BY JOHAN BOWERS BY JUDAH 5Admin Note: GIVEN IN CLINIC [facility] 6Admin Note: [facility] 7Admin Note: H1N1 Medications acetaminophen 325 mg [...] Gm, 0 Refills, Maintenance, 11/21/22 14:00:00 EDT, [facility], Partial fill upon patient request if [...] 2 Refills, Maintenance, 09/05/22 13:34:00 EDT, Tablet, [facility], 170, cm, 08/01/22 14:54:00 EDT, Height, [...] Personnel Name: Morena Abraham RN Position: [facility] SN RN Member Role: Primary Care Nurse Name: Jena Barron RN Position: [facility] RN Member Role: Primary Care Nurse Name: Faith Cheek RN Position: [facility] RN Member Role: Primary Care Nurse Name: Rodney He RN Position: [facility] RN Member Role: Primary Care Nurse Name: Barbara Snider RN Position: [facility] SN RN Member Role: Primary Care Nurse Name: Ana Maria Gonzalez RN Position: [facility] RN Member Role: Primary Care Nurse Name: Rae Vigil RN Position: [facility] RN Member Role: Primary Care Nurse Name: Johan Montes RN Position: [facility] RN Member Role: Primary Care Nurse Name: Tony Rhodes MD Position: [facility] Physician - Primary Care Member Role: PCP Address: Address: [address] [place] [id number] Name: Rachel Brown RN Position: [facility] RN Member Role: Primary Care Nurse Name: Lucia Denton RN Position: [facility] RN Member Role: Primary Care Nurse Name: Quin Oliveira RN Position: [facility] RN Member Role: Primary Care Nurse Name: Chelita Hernandez RN Position: [facility] RN Member Role: Primary Care Nurse Name: Lynette Leon RN Position: [facility] RN Member Role: Primary Care Nurse Name: Donald Purcell RN Position: [facility] RN Member Role: Primary Care Nurse Name: Shameka Hicks RN Position: [facility] RN Member Role: Primary Care Nurse Name: Lynette Wooten RN Position: [facility] RN Member Role: Primary Care Nurse Name: Batsheva Herring RN Position: [facility] OB RN Member Role: Primary Care Nurse Name: Roxana Hutchison RN Position: [facility] AMB Nurse Member Role: Primary Care Nurse Name: David Mensah RN Position: [facility] RN Member Role: Primary Care Nurse Name: Mary Mckeon RN Position: [facility] AMB Nurse Member Role: Primary Care Nurse Care Team Related Persons Name: FANY CYR Address: [place] [address] Name: KITTY CYR
--- OUTSIDE RECORDS SUMMARY | 2023-04-27 13:34 | XMS_ITS | Continuity of Care Document ---
Author Name Unknown Organization [facility] Address [address] [place] [address]- Care Team Providers Care Contracts Analyst Name Role Phone Tony Rhodes MD Primary Care Physician [phone] [facility] 04[facility]08[facility]22 - 05/08/22 [facility] [address] [place] [address]- Allergies, Adverse Reactions, Alerts Substance Reaction Severity [...] Pneumococcal Vacc (oldterm) 05/12/99 Given 1Location History: [facility] 2Admin Note: VIS GIVEN 3Location History: [facility] 4Admin Note: GIVEN BY ANDIE DOC BY JUDAH 5Admin Note: GIVEN IN CLINIC [facility] 6Admin Note: [facility] 7Admin Note: H1N1 Medications acetaminophen 325 mg [...] 5 Refills, Maintenance, 07/29/19 13:25:00 EDT, Powder, [facility], 167, cm, 04/30/19 15:55:00 EST, Height, 70.2, kg, 07/31/18 6:33:00EDT, Dry Weight Start Date: 07/29/19 Status: Ordered amiodarone 200 mg oral tablet 2, tablet, By Mouth, 2 times a day, # 120 tablet, Refills 6, Maintenance, 02/18/22 9:48:00 EDT, Route to Pharmacy Electronically, [facility], 172.7, cm, 01/18/22 14:53:00 EDT, Height, [...] 02/18/22 9:47:00 EDT, Route to Pharmacy Electronically, [facility], 172.7, cm, 01/18/22 14:53:00 EDT, Height, [...] 0 Refills, Maintenance, 02/25/22 12:41:00 EDT, Tablet, [facility], 168, cm, 02/25/22 12:11:00 EDT, Height, [...] 25 tablet, 0 Refills, 10/18/20 16:42:00 EDT, [facility], 167, cm, 08/21/20 14:59:00 EDT, Height [...] Care Nurse Name: Jena Barron RN Position: [facility] RN Member Role: Primary Care Nurse Name: Ana Maria Gonzalez RN Position: [facility] RN Member Role: Primary Care Nurse Name: Rae Vigil RN Position: [facility] ED RN W/OE and Tasks Member Role: Primary Care Nurse Name: Tony Rhodes MD Position: [facility] Primary Care Physician Member Role: PCP Address: Address: [address] [place] [id number] Name: Rachel Brown RN Position: [facility] RN Member Role: Primary Care Nurse Name: Lucia Denton RN Position: [facility] RN Member Role: Primary Care Nurse Name: Chelita Hernandez RN Position: [facility] RN Member Role: Primary Care Nurse Name: Elizabeth Taylor Position: [facility] RN Member Role: Primary Care Nurse Name: Batsheva Herring RN Position: [facility] AMB Nurse Member Role: Primary Care Nurse Name: Roxana Hutchison RN Position: [facility] RN Member Role: Primary Care Nurse Name: Mary Mckeon RN Position: [facility] AMB Nurse Member Role: Primary Care Nurse Care Team Related Persons Name: FANY CYR Address: home [address] [place] [address] Name: KITTY CYR Address: [place] [address]
--- OUTSIDE RECORDS SUMMARY | 2023-04-27 13:34 | XMS_ITS | Continuity of Care Document ---
Author Name Unknown Organization [facility] Address [address] [place] [address]- Care Team Providers Care Euclid Operator Name Role Phone Tony Rhodes MD Primary Care Physician [phone] [facility]): 09[facility]22 - 10/04/22 [facility] Adult [address] [place] [address]- Allergies, Adverse Reactions, Alerts Substance Reaction Severity Status Vioxx Hypertension Mild Active Immunizations Given and Recorded Vaccine Date Status Refusal Reason [id number] bivalent booster vax 03/11/22 Recorded influenza virus [...] (oldterm) 05/12/99 Given 1[facility] 2Admin Note: VIS GIVEN 3Location History: [facility] 4Admin Note: GIVEN BY JOHAN BOWERS BY JUDAH 5Admin Note: GIVEN IN CLINIC [facility] 6Admin Note: [id number] 7Admin Note: H1N1 Medications [...] Gm, 0 Refills, Maintenance, 08/01/22 15:26:00 EDT, [facility], Partial fill upon patient request if the prescription is for a schedule II opioid drug., 170, cm, 08/01/22 14:54:00 EDT, Height, 45.7, kg, 03... Start Date: 08/01/22 Status: Ordered albuterol 90 mcg/inh inhalation powder 2 puffs, Inhalation, Every 4 hours, PRN as needed, # 1 each, 5 Refills, Maintenance, 07/29/19 13:25:00 EDT, Powder, [facility], 167, cm, 04/30/19 15:55:00 EST, Height, [...] 1 Refills, Soft Stop, 09/04/22 16:59:00 EDT, [facility], 170, cm, 08/01/22 14:54:00 EDT, Height, 45.7, kg, 07/12/22 22:04:00 EST, DryWeight Start Date: 09/04/22 Status: Ordered cloNIDine 0.1 mg oral tablet 0.1 mg, 1, tablet, By Mouth, 2 times a day, # 60 tablet, Refills 2, Tot. Refills 2, Maintenance, 09/05/22 13:27:00 EDT, Route to Pharmacy Electronically, [facility], Partial fill upon patient request if the prescription is for a schedule II opioi... Start Date: 09/05/22 Status: Ordered Colace sodium 100 mg oral capsule 100 mg, 1, capsule, By Mouth, 2 times a day, # 60 capsule, Refills 0, Tot. Refills 0, Maintenance, 06/24/22 16:00:00 EST, Route to Pharmacy Electronically, [facility], Partial fill upon patient request if the prescription is for a schedule II opi... Start Date: 06/24/22 Status: Ordered collagenase topical 250 u/gm ointment 1 application, Topically, Daily, apply moist dressing over the santyl, triad cream on surrouding skin and DSD over all, # 90 Gm, 0 Refills, Maintenance, 07/08/22 13:04:00 EST, Ointment, [facility], Partial fill upon patient request if th... Start Date: 07/08/22 Status: Ordered Eliquis 5 mg oral tablet 1 tablet = 5 mg, By Mouth, 2 times a day, # 60 tablet, 2 Refills, Maintenance, 09/05/22 13:34:00 EDT, Tablet, [facility], 170, cm, 08/01/22 14:54:00 EDT, Height, 45.7, kg, 07/12/22 22:04:00 EST,Dry Weight Start Date: 09/05/22 Stop Date: 12/04/22 Status: Ordered Keppra 500 mg oral tablet 1 tablet = 500 mg, By Mouth, 2 times a day, # 60 tablet, 2 Refills, Maintenance, 09/05/22 13:26:00 EDT, Tablet, [facility], Partial fill upon patient request if [...] tablet, 2 Refills, Maintenance, 02/18/22 9:48:00 EDT, [facility], 172.7, cm, 01/18/22 14:53:00 EDT, Height, 68.2, kg, 09/21/21 17:43:00 EDT, Dry Weight Start Date: 02/18/22 Status: Ordered MiraLax oral powder for reconstitution = 17 Gm, By Mouth, Daily, dissolve in water before taking, # 255 Gm, 0 Refills, Maintenance, 07/08/22 9:59:00 EST, REC Powder, [facility], Partial fill upon patient request [...] 07/08/22 9:58:00 EST, Route to Pharmacy Electronically, [facility], Partial fill upon... Start Date: 07/08/22 Status: Ordered pentoxifylline 400 mg oral tablet, extended release 1, tablet, By Mouth, 3 times a day, # 90 tablet, Refills 11, Route to Pharmacy Electronically, [facility], 167, cm, 08/20/21 12:32:00 EDT, Height Start Date: 09/05/21 Status: Ordered Vitamin D3 10,000 intl units oral capsule 1 capsule = 250 mcg, By Mouth, Every week, # 6 capsule, 0 Refills, Maintenance, 12/19/21 12:19:00 EDT, Capsule, [facility], Partial fill upon patient request if [...] Team Personnel Name: Morena Abraham RN Position: [facility] SN RN Member Role: Primary Care Nurse Name: Jena Barron RN Position: [facility] RN Member Role: Primary Care Nurse Name: Faith Cheek RN Position: [facility] RN Member Role: Primary Care Nurse Name: Rodney He RN Position: [facility] RN Member Role: Primary Care Nurse Name: Barbara Snider RN Position: [facility] SN RN Member Role: Primary Care Nurse Name: Ana Maria Gonzalez RN Position: [facility] RN Member Role: Primary Care Nurse Name: Rae Vigil RN Position: [facility] RN Member Role: Primary Care Nurse Name: Johan Montes RN Position: [facility] RN Member Role: Primary Care Nurse Name: Tony Rhodes MD Position: [facility] Physician - Primary Care Member Role: PCP Address: Address: [address] [place] [id number]- Name: Milad Rodríguez Position: [facility] RN Member Role: Primary Care Nurse Name: Rachel Brown RN Position: [facility] RN Member Role: Primary Care Nurse Name: Lucia Denton RN Position: [facility] RN Member Role: Primary Care Nurse Name: Bill Velazquez RN Position: [facility] RN Member Role: Primary Care Nurse Name: Chelita Hernandez RN Position: [facility] RN Member Role: Primary Care Nurse Name: Donald Purcell RN Position: [facility] RN Member Role: Primary Care Nurse Name: Shameka Hicks RN Position: [facility] RN Member Role: Primary Care Nurse Name: Lynette Wooten RN Position: [facility] RN Member Role: Primary Care Nurse Name: Batsheva Herring RN Position: [facility] OB RN Member Role: Primary Care Nurse Name: Roxana Hutchison RN Position: [facility] RN Member Role: Primary Care Nurse Name: David Mensah RN Position: [facility] RN Member Role: Primary Care Nurse Name: Mary Mckeon RN Position: [facility] AMB Nurse Member Role: Primary Care Nurse Care Team Related Persons Name: FANY CYR Address: home [address] [place] [id number] Name: KITTY CYR Address: [place] [address]
--- OUTSIDE RECORDS SUMMARY | 2023-04-27 13:34 | XMS_ITS | Continuity of Care Document ---
Author Name Unknown Organization [facility] Ben lt Address [address] [place] [address]- Care Team Providers Care Extrusion Die Coordinator Name Role Phone Tony Rhodes MD Primary Care Physician [facility] 07/25/22 - 08/24/22 [facility] Adult [address] [place] [address]- Allergies, Adverse Reactions, Alerts Substance Reaction Severity Status Vioxx Hypertension Mild Active Immunizations Given and Recorded Vaccine Date Status Refusal Reason [id number] bivalent booster vax 03/11/22 Recorded influenza virus [...] influenza virus vaccine, inactivated 4 02/01/09 Gi hilray SARS-CoV-2 (COVID-19) mRNA-1273 vaccine 04/21/21 R ecorded [...] (oldterm) 05/12/99 Given 1[facility] 2Admin Note: VIS GIVEN 3Location History: [facility] 4Admin Note: GIVEN BY JOHAN BOWERS BY JUDAH 5Admin Note: GIVEN IN CLINIC SHAM 6Admin Note: [facility] 7Admin Note: [...] Gm, 0 Refills, Maintenance, 08/01/22 15:26:00 EDT, [facility], Partial fill upon patient request if the prescription is for a schedule II opioid drug., 170, cm, 08/01/22 14:54:00 EDT, Height, 45.7, kg, 03... Start Date: 08/01/22 Status: Ordered albuterol 90 mcg/inh inhalation powder 2 puffs, Inhalation, Every 4 hours, PRN as needed, # 1 each, 5 Refills, Maintenance, 07/29/19 13:25:00 EDT, Powder, [facility], 167, cm, 04/30/19 15:55:00 EST, Height, [...] 3 Refills, Soft Stop, 09/05/21 15:18:00 EDT, [facility], 167, cm, 08/20/21 12:32:00 EDT, Height Start Date: 09/05/21 Status: Ordered Colace sodium 100 mg oral capsule 100 mg, 1, capsule, By Mouth, 2 times a day, # 60 capsule, Refills 0, Tot. Refills 0, Maintenance, 06/24/22 16:00:00 EST, Route to Pharmacy Electronically, [facility], Partial fill upon patient request if the prescription is for a schedule II opi... Start Date: 06/24/22 Status: Ordered collagenase topical 250 u/gm ointment 1 application, Topically, Daily, apply moist dressing over the santyl, triad cream on surrouding skin and DSD over all, # 90 Gm, 0 Refills, Maintenance, 07/08/22 13:04:00 EST, Ointment, [facility], Partial fill upon patient request if th... Start Date: 07/08/22 Status: Ordered Eliquis 5 mg oral tablet 1 tablet = 5 mg, By Mouth, 2 times a day, # 60 tablet, 0 Refills, Maintenance, 02/25/22 12:41:00 EDT, Tablet, [facility], 168, cm, 02/25/22 12:11:00 EDT, Height, 57.7, kg, 02/22/22 23:09:00 EDT,Dry Weight Start Date: 02/25/22 Stop Date: 03/27/22 Status: Ordered Keppra 500 mg oral tablet 1 tablet = 500 mg, By Mouth, 2 times a day, # 60 tablet, 6 Refills, Maintenance, 03/01/21 14:03:00 EDT, Tablet, [facility], Partial fill upon patient request if [...] tablet, 2 Refills, Maintenance, 02/18/22 9:48:00 EDT, [facility], 172.7, cm, 01/18/22 14:53:00 EDT, Height, 68.2, kg, 09/21/21 17:43:00 EDT, Dry Weight Start Date: 02/18/22 Status: Ordered MiraLax oral powder for reconstitution = 17 Gm, By Mouth, Daily, dissolve in water before taking, # 255 Gm, 0 Refills, Maintenance, 07/08/22 9:59:00 EST, REC Powder, [facility], Partial fill upon patient request [...] 07/08/22 9:58:00 EST, Route to Pharmacy Electronically, [facility], Partial fill upon... Start Date: 07/08/22 Status: Ordered pentoxifylline 400 mg oral tablet, extended release 1, tablet, By Mouth, 3 times a day, # 90 tablet, Refills 11, Route to Pharmacy Electronically, [facility], 167, cm, 08/20/21 12:32:00 EDT, Height Start Date: 09/05/21 Status: Ordered Vitamin D3 10,000 intl units oral capsule 1 capsule = 250 mcg, By Mouth, Every week, # 6 capsule, 0 Refills, Maintenance, 12/19/21 12:19:00 EDT, Capsule, [facility], Partial fill upon patient request if [...] Name: Morena Abraham RN Position: [facility] SN RN Member Role: Primary Care Nurse Name: Jena Barron RN Position: [facility] RN Member Role: Primary Care Nurse Name: Faith Cheek RN Position: [facility] RN Member Role: Primary Care Nurse Name: Rodney He RN Position: [facility] RN Member Role: Primary Care Nurse Name: Barbara Snider RN Position: [facility] SN RN Member Role: Primary Care Nurse Name: Ana Maria Gonzalez RN Position: [facility] RN Member Role: Primary Care Nurse Name: Rae Vigil RN Position: [facility] RN Member Role: Primary Care Nurse Name: Johan Montes RN Position: [facility] RN Member Role: Primary Care Nurse Name: Tony Rhodes MD Position: [facility] Primary Care Physician Member Role: PCP Address: Address: [address] [place] [id number] Name: Milad Rodríguez Position: [facility] RN Member Role: Primary Care Nurse Name: Rachel Brown RN Position: [facility] RN Member Role: Primary Care Nurse Name: Lucia Denton RN Position: [facility] RN Member Role: Primary Care Nurse Name: Bill Velazquez RN Position: [facility] RN Member Role: Primary Care Nurse Name: Chelita Hernandez RN Position: [facility] RN Member Role: Primary Care Nurse Name: Donald Purclel RN Position: [facility] RN Member Role: Primary Care Nurse Name: Shameka Hicks RN Position: [facility] RN Member Role: Primary Care Nurse Name: Lynette Wooten RN Position: [facility] RN Member Role: Primary Care Nurse Name: Batsheva Herring RN Position: [facility] OB RN Member Role: Primary Care Nurse Name: Roxana Hutchison RN Position: [facility] RN Member Role: Primary Care Nurse Name: David Mensah RN Position: [facility] RN Member Role: Primary Care Nurse Name: Mary Mckeon RN Position: [facility] Nurse Member Role: Primary Care Nurse Care Team Related Persons Name: FANY CYR Address: home [address] [place] [id number] Name: KITTY CYR Address: [place] [address]
--- OUTSIDE RECORDS SUMMARY | 2023-04-27 13:35 | XMS_ITS | Continuity of Care Document ---
Author Name Unknown Organization [facility] Ben [facility] Address [address] [place] [address]- Care Team Providers Care Personal Banking Advisor Name Role Phone Tony Rhodes MD Primary Care Physician [facility] 07/11/22 - 08/10/22 [facility] Adult [address] [place] [address]- Allergies, Adverse Reactions, Alerts Substance Reaction Severity Status Vioxx Hypertension Mild Active Immunizations Given and Recorded Vaccine Date Status Refusal Reason [id number] bivalent booster vax 03/11/22 Recorded influenza virus [...] 05/12/99 Given 1Location History[facility] 2Admin Note: VIS GIVEN 3Location History: [facility] 4Admin Note: GIVEN BY JOHAN BOWERS BY JUDAH 5Admin Note: GIVEN IN CLINIC SHAM 6Admin Note: [facility] 7Admin Note: H1N1 Medications acetaminophen 325 [...] Gm, 0 Refills, Maintenance, 08/01/22 15:26:00 EDT, [facility], Partial fill upon patient request if the prescription is for a schedule II opioid drug., 170, cm, 08/01/22 14:54:00 EDT, Height, 45.7, kg, 03... Start Date: 08/01/22 Status: Ordered albuterol 90 mcg/inh inhalation powder 2 puffs, Inhalation, Every 4 hours, PRN as needed, # 1 each, 5 Refills, Maintenance, 07/29/19 13:25:00 EDT, Powder, [facility], 167, cm, 04/30/19 15:55:00 EST, Height, [...] 3 Refills, Soft Stop, 09/05/21 15:18:00 EDT, [facility], 167, cm, 08/20/21 12:32:00 EDT, Height Start Date: 09/05/21 Status: Ordered Colace sodium 100 mg oral capsule 100 mg, 1, capsule, By Mouth, 2 times a day, # 60 capsule, Refills 0, Tot. Refills 0, Maintenance, 06/24/22 16:00:00 EST, Route to Pharmacy Electronically, [facility], Partial fill upon patient request if the prescription is for a schedule II opi... Start Date: 06/24/22 Status: Ordered collagenase topical 250 u/gm ointment 1 application, Topically, Daily, apply moist dressing over the santyl, triad cream on surrouding skin and DSD over all, # 90 Gm, 0 Refills, Maintenance, 07/08/22 13:04:00 EST, Ointment, [facility], Partial fill upon patient request if th... Start Date: 07/08/22 Status: Ordered Eliquis 5 mg oral tablet 1 tablet = 5 mg, By Mouth, 2 times a day, # 60 tablet, 0 Refills, Maintenance, 02/25/22 12:41:00 EDT, Tablet, [facility], 168, cm, 02/25/22 12:11:00 EDT, Height, 57.7, kg, 02/22/22 23:09:00 EDT,Dry Weight Start Date: 02/25/22 Stop Date: 03/27/22 Status: Ordered Keppra 500 mg oral tablet 1 tablet = 500 mg, By Mouth, 2 times a day, # 60 tablet, 6 Refills, Maintenance, 03/01/21 14:03:00 EDT, Tablet, [facility], Partial fill upon patient request if [...] tablet, 2 Refills, Maintenance, 02/18/22 9:48:00 EDT, [facility], 172.7, cm, 01/18/22 14:53:00 EDT, Height, 68.2, kg, 09/21/21 17:43:00 EDT, Dry Weight Start Date: 02/18/22 Status: Ordered MiraLax oral powder for reconstitution = 17 Gm, By Mouth, Daily, dissolve in water before taking, # 255 Gm, 0 Refills, Maintenance, 07/08/22 9:59:00 EST, REC Powder, [facility], Partial fill upon patient [...] 07/08/22 9:58:00 EST, Route to Pharmacy Electronically, [facility], Partial fill upon... Start Date: 07/08/22 Status: Ordered pentoxifylline 400 mg oral tablet, extended release 1, tablet, By Mouth, 3 times a day, # 90 tablet, Refills 11, Route to Pharmacy Electronically, [facility], 167, cm, 08/20/21 12:32:00 EDT, Height [...] Team Personnel Name: Morena Abraham RN Position: [facility] RN Member Role: Primary Care Nurse [...] Tony Rhodes MD Position: [facility] Primary Care Physician Member Role: PCP Address: Address: [address] [place] [id number] [[email or web address] Name: Milad Rodríguez Position: S RN Member Role: Primary Care Nurse Name: Rachel Brown RN Position: [facility] RN Member Role: Primary Care Nurse Name: Lucia Denton RN Position: [facility] RN Member Role: Primary Care Nurse Name: Bill Velazquez RN Position: [facility] RN Member [...] Care Nurse Name: Barbara Post RN Position: [facility] RN Member Role: Primary Care Nurse Name: Roxana Hutchison RN Position: [facility] RN Member Role: Primary Care Nurse Name: David Mensah RN Position: [facility] RN Member Role: Primary Care Nurse Name: Mary Mckeon RN Position: [facility] AMB Nurse Member Role: Primary Care Nurse Care Team Related Persons Name: FANY CYR Address: home [address] [place] [id number] Name: KITTY CYR Address: [place] [address]
--- OUTSIDE RECORDS SUMMARY | 2023-04-27 13:35 | XMS_ITS | Continuity of Care Document ---
Author Name Unknown Organization [facility] Address [address] [place] [address]- Care Team Providers Care Train Driver Name Role Phone Meagan DILL, Tony Gaines Primary Care Physician [phone] [facility]): 01[facility]03[facility]23 - 03/30/23 [facility] [address], [place] [address] Attending Physician: Angi Saenz MD Admitting Physician: Angi Saenz MD Referring Physician: Tony Rhodes MD Allergies, Adverse Reactions, Alerts Substance Reaction Severity Status Vioxx Hypertension Mild Active Immunizations Given and Recorded Vaccine Date Status Refusal Reason [id number] bivalent booster vax 03/11/22 Recorded influenza virus [...] Pneumococcal Vacc (oldterm) 05/12/99 Given 1Location History: [facility] 2Admin Note: VIS GIVEN 3Location History: [facility] 4Admin Note: GIVEN BY JOHAN DOC BY JUDAH 5Admin Note: GIVEN IN CLINIC SHAM 6Admin Note: [facility] 7Admin Note: H1N1 Medications acetaminophen 325 mg [...] Gm, 0 Refills, Maintenance, 11/21/22 14:00:00 EDT, [facility], Partial fill upon patient request if [...] 2 Refills, Maintenance, 09/05/22 13:34:00 EDT, Tablet, [facility], 170, cm, 08/01/22 14:54:00 EDT, Height, [...] Team Personnel Name: Morena Abraham RN Position: [facility] SN RN Member Role: Primary Care Nurse Name: Jena Barron RN Position: [facility] RN Member Role: Primary Care Nurse Name: Faith Cheek RN Position: [facility] RN Member Role: Primary Care Nurse Name: Rodney He RN Position: [facility] RN Member Role: Primary Care Nurse Name: Barbara Snider RN Position: [facility] SN RN Member Role: Primary Care Nurse Name: Ana Maria Gonzalez RN Position: [facility] RN Member Role: Primary Care Nurse Name: Rae Vigil RN Position: [facility] RN Member Role: Primary Care Nurse Name: Johan Montes RN Position: [facility] RN Member Role: Primary Care Nurse Name: Tony Rhodes MD Position: [facility] Physician - Primary Care Member Role: PCP Address: Address: [address] [place] [address]- Name: Rachel Brown RN Position: [facility] RN Member Role: Primary Care Nurse Name: Lucia Denton RN Position: [facility] RN Member Role: Primary Care Nurse Name: Quin Oliveira RN Position: [facility] RN Member Role: Primary Care Nurse Name: Chelita Hernandez RN Position: [facility] RN Member Role: Primary Care Nurse Name: Lynette Leon RN Position: [facility] RN Member Role: Primary Care Nurse Name: Donald Purcell RN Position: [facility] RN Member Role: Primary Care Nurse Name: Shameka Hicks RN Position: [facility] RN Member Role: Primary Care Nurse Name: Lynette Wooten RN Position: [facility] RN Member Role: Primary Care Nurse Name: Batsheva Herring RN Position: [facility] OB RN Member Role: Primary Care Nurse Name: Roxana Hutchison RN Position: [facility] AMB Nurse Member Role: Primary Care Nurse Name: David Mensah RN Position: [facility] RN Member Role: Primary Care Nurse Name: Mary Mckeon RN Position: [facility] AMB Nurse Member Role: Primary Care Nurse Care Team Related Persons Name: FANY CYR Address: [address] [address] Name: KITTY CYR
--- OUTSIDE RECORDS SUMMARY | 2023-04-27 13:35 | XMS_ITS | Continuity of Care Document ---
Author Name Unknown Organization [facility] [place] Ben [facility] Address [address] [place] [address]- Care Team Providers Care Mortgage Loan Officer Originator Name Role Phone Tony Rhodes MD Primary Care Physician [phone] [facility] 05/02/22 - 06/01/22 [facility] Adult [address] [place] [address]- Allergies, Adverse Reactions, Alerts Substance Reaction Severity [...] Pneumococcal Vacc (oldterm) 05/12/99 Given 1Location History: [facility] 2Admin Note: VIS GIVEN 3Location History: [facility] 4Admin Note: GIVEN BY ANDIE DOC BY JUDAH 5Admin Note: GIVEN IN CLINIC SHAM 6Admin Note: [facility] 7Admin Note: H1N1 Medications acetaminophen 325 [...] 5 Refills, Maintenance, 07/29/19 13:25:00 EDT, Powder, [facility], 167, cm, 04/30/19 15:55:00 EST, Height, 70.2, kg, 07/31/18 6:33:00EDT, Dry Weight Start Date: 07/29/19 Status: Ordered amiodarone 200 mg oral tablet 2, tablet, By Mouth, 2 times a day, # 120 tablet, Refills 6, Maintenance, 02/18/22 9:48:00 EDT, Route to Pharmacy Electronically, [facility], 172.7, cm, 01/18/22 14:53:00 EDT, Height, [...] 3 Refills, Soft Stop, 09/05/21 15:18:00 EDT, [facility], 167, cm, 08/20/21 12:32:00 EDT, Height [...] 02/18/22 9:47:00 EDT, Route to Pharmacy Electronically, [facility], 172.7, cm, 01/18/22 14:53:00 EDT, Height, [...] 0 Refills, Maintenance, 02/25/22 12:41:00 EDT, Tablet, [facility], 168, cm, 02/25/22 12:11:00 EDT, Height, [...] 25 tablet, 0 Refills, 10/18/20 16:42:00 EDT, [facility], 167, cm, 08/21/20 14:59:00 EDT, Height Start Date: 10/18/20 Status: Ordered omeprazole 20 mg oral delayed release tablet 1 tablet = 20 mg, By Mouth, Daily in AM, Maintenance, 09/21/21 16:06:00 EDT Start Date: 09/21/21 Status: Ordered pentoxifylline 400 mg oral tablet, extended release 1, tablet, By Mouth, 3 times a day, # 90 tablet, Refills 11, Route to Pharmacy Electronically, [facility], 167, cm, 08/20/21 12:32:00 EDT, Height [...] RN Position: [facility] RN Member Role: Primary Care Nurse Name: Ana Maria Gonzalez RN Position: [facility] RN Member Role: Primary Care Nurse Name: Rae Vigil RN Position: [facility] ED RN W/OE and Tasks Member Role: Primary Care Nurse Name: Tony Rhodes MD Position: [facility] Primary Care Physician Member Role: PCP Address: Address: [address] [place] [id number] Name: Rachel Brown RN Position: [facility] RN Member Role: Primary Care Nurse Name: Lucia Denton RN Position: [facility] RN Member Role: Primary Care Nurse Name: Chelita Hernandez RN Position: [facility] RN Member Role: Primary Care Nurse Name: Elizabeth Taylor Position: [facility] RN Member Role: Primary Care Nurse Name: Batsheva Herring RN Position: [facility] AMB Nurse Member Role: Primary Care Nurse Name: Roxana Hutchison RN Position: [facility] RN Member Role: Primary Care Nurse Name: Mary Mckeon RN Position: [facility] AMB Nurse Member Role: Primary Care Nurse Care Team Related Persons Name: FANY YCR Address: home [address] [place] [address] Name: KITTY CYR Address: [place] [address]
--- OUTSIDE RECORDS SUMMARY | 2023-04-27 13:35 | XMS_ITS | Continuity of Care Document ---
Author Name Unknown Organization [facility] Address [address] [place] [address]- Care Team Providers Care Combustion Analyst Name Role Phone Meagan DILL, Tony Gaines Primary Care Physician [facility]): [facility] - 03/30/23 [facility] [address] [place], [place] [address] Attending Physician: AdmDelgado mojica Admitting Physician: Admtr, [id number] Referring Physician: Admtr, [id number] Allergies, Adverse Reactions, Alerts Substance Reaction Severity Status Vioxx Hypertension Mild Active Immunizations Given and Recorded Vaccine Date Status Refusal Reason [id number] bivalent booster vax 03/11/22 Recorded influenza virus [...] Pneumococcal Vacc (oldterm) 05/12/99 Given 1Location History: [facility] 2Admin Note: VIS GIVEN 3Location History: [facility] 4Admin Note: GIVEN BY JOHAN BOWERS BY JUDAH 5Admin Note: GIVEN IN CLINIC SHAM 6Admin Note: [facility] 7Admin Note: H1N1 Medications acetaminophen [...] Gm, 0 Refills, Maintenance, 11/21/22 14:00:00 EDT, [facility], Partial fill upon patient request if [...] Other: 2 PPD; entered on: 11/04/22 Sex Laboratory * Event Display: Non Lab Results Authored Date: [id number] Patient Care team information Care Team Personnel Name: Morena Abraham RN Position: [facility] RN Member Role: Primary Care Nurse Name: Jena Barron RN Position: [facility] RN Member Role: Primary Care Nurse Name: Faith Cheek RN Position: [facility] RN Member Role: Primary Care Nurse Name: Rodney He RN Position: [facility] RN Member Role: Primary Care Nurse Name: Barbara Snider RN Position: [facility] SN RN Member Role: Primary Care Nurse Name: Ana Maria Gonzalez RN Position: [facility] RN Member Role: Primary Care Nurse Name: Rae Vigil RN Position: [facility] RN Member Role: Primary Care Nurse Name: Johan Montes RN Position: [facility] RN Member Role: Primary Care Nurse Name: Tony Rhodes MD Position: [facility] Physician - Primary Care Member Role: PCP Address: Address: [address] [place] [id number]- Name: Rachel Brown RN Position: [facility] RN Member Role: Primary Care Nurse Name: Lucia Denton RN Position: [facility] RN Member Role: Primary Care Nurse Name: Quin Oliveira RN Position: [facility] RN Member Role: Primary Care Nurse Name: Chelita Hernandez RN Position: [facility] RN Member Role: Primary Care Nurse Name: Lynette Leon RN Position: [facility] RN Member Role: Primary Care Nurse Name: Donald Purcell RN Position: [facility] RN Member Role: Primary Care Nurse Name: Shameka Hicks RN Position: [facility] RN Member Role: Primary Care Nurse Name: Lynette Wooten RN Position: [facility] RN Member Role: Primary Care Nurse Name: Batsheva Herring RN Position: [facility] OB RN Member Role: Primary Care Nurse Name: Roxana Hutchison RN Position: [facility] AMB Nurse Member Role: Primary Care Nurse Name: David Mensah RN Position: [facility] RN Member Role: Primary Care Nurse Name: Mary Mckeon RN Position: [facility] AMB Nurse Member Role: Primary Care Nurse Care Team Related Persons Name: FANY CYR Address: [address] [address] Name: KITTY CYR
--- OUTSIDE RECORDS SUMMARY | 2023-04-27 13:35 | XMS_ITS | Continuity of Care Document ---
Author Name Unknown Organization [facility] Address [address] [place] [id number]- Care Team Providers Care Sales And Service Associate Name Role Phone Tony Rhodes MD Primary Care Physician [phone] Encounter [facility] Date(s): 08/14/22 - 09/26/22 [facility] [address] [place] [address]- Attending Physician: Mary Jay NP Admitting Physician: Misty PATRICK, Mary Cruz Referring Physician: Tony Rhodes MD Allergies, Adverse Reactions, Alerts Substance Reaction Severity Status Vioxx Hypertension Mild Active Immunizations Given and Recorded Vaccine Date Status Refusal Reason [id number] bivalent booster vax 03/11/22 Recorded influenza virus [...] Pneumococcal Vacc (oldterm) 05/12/99 Given 1Location History: [facility] 2Admin Note: VIS GIVEN 3Location History: [facility] 4Admin Note: GIVEN BY JOHAN BOWERS BY JUDAH 5Admin Note: GIVEN IN CLINIC SHAM 6Admin Note: Patients [facility] 7Admin Note: H1N1 Medications acetaminophen [...] Gm, 0 Refills, Maintenance, 08/01/22 15:26:00 EDT, [facility], Partial fill upon patient request if the prescription is for a schedule II opioid drug., 170, cm, 08/01/22 14:54:00 EDT, Height, 45.7, kg, 03... Start Date: 08/01/22 Status: Ordered albuterol 90 mcg/inh inhalation powder 2 puffs, Inhalation, Every 4 hours, PRN as needed, # 1 each, 5 Refills, Maintenance, 07/29/19 13:25:00 EDT, Powder, [facility], 167, cm, 04/30/19 15:55:00 EST, Height, [...] 09/05/22 13:27:00 EDT, Route to Pharmacy Electronically, [facility], Partial fill upon patient request if the prescription is for a schedule II opioi... Start Date: 09/05/22 Status: Ordered Colace sodium 100 mg oral capsule 100 mg, 1, capsule, By Mouth, 2 times a day, # 60 capsule, Refills 0, Tot. Refills 0, Maintenance, 06/24/22 16:00:00 EST, Route to Pharmacy Electronically, [facility], Partial fill upon patient request if the prescription is for a schedule II opi... Start Date: 06/24/22 Status: Ordered collagenase topical 250 u/gm ointment 1 application, Topically, Daily, apply moist dressing over the santyl, triad cream on surrouding skin and DSD over all, # 90 Gm, 0 Refills, Maintenance, 07/08/22 13:04:00 EST, Ointment, [facility], Partial fill upon patient request if [...] 2 Refills, Maintenance, 09/05/22 13:26:00 EDT, Tablet, [facility], Partial fill upon patient request if [...] tablet, 2 Refills, Maintenance, 02/18/22 9:48:00 EDT, [facility], 172.7, cm, 01/18/22 14:53:00 EDT, Height, 68.2, kg, 09/21/21 17:43:00 EDT, Dry Weight Start Date: 02/18/22 Status: Ordered MiraLax oral powder for reconstitution = 17 Gm, By Mouth, Daily, dissolve in water before taking, # 255 Gm, 0 Refills, Maintenance, 07/08/22 9:59:00 EST, REC Powder, [facility], Partial fill upon [...] 07/08/22 9:58:00 EST, Route to Pharmacy Electronically, [facility], Partial fill upon... Start Date: 07/08/22 Status: Ordered pentoxifylline 400 mg oral tablet, extended release 1, tablet, By Mouth, 3 times a day, # 90 tablet, Refills 11, Route to Pharmacy Electronically, [facility], 167, cm, 08/20/21 12:32:00 EDT, Height Start Date: 09/05/21 Status: Ordered Vitamin D3 10,000 intl units oral capsule 1 capsule = 250 mcg, By Mouth, Every week, # 6 capsule, 0 Refills, Maintenance, 12/19/21 12:19:00 EDT, Capsule, [facility], Partial fill upon patient request if [...] Team Personnel Name: Morena Abraham RN Position: [facility] SN RN Member Role: Primary Care Nurse Name: Jena Barron RN Position: [facility] RN Member Role: Primary Care Nurse Name: Faith Cheek RN Position: [facility] RN Member Role: Primary Care Nurse Name: Rodney He RN Position: [facility] RN Member Role: Primary Care Nurse Name: Barbara Snider RN Position: [facility] SN RN Member Role: Primary Care Nurse Name: Ana Maria Gonzalez RN Position: [facility] RN Member Role: Primary Care Nurse Name: Rae Vigil RN Position: [facility] ED RN W/OE and Tasks Member Role: Primary Care Nurse Name: Johan Montes RN Position: [facility] RN Member Role: Primary Care Nurse Name: Tony Rhodes MD Position: [facility] Primary Care Physician Member Role: PCP Address: Address: [address] [place] [id number]- Name: Milad Rodríguez Position: [facility] RN Member Role: Primary Care Nurse Name: Rachel Brown RN Position: [facility] RN Member Role: Primary Care Nurse Name: Lucia Denton RN Position: S RN Member Role: Primary Care Nurse Name: Bill Velazquez RN Position: [facility] RN Member Role: Primary Care Nurse Name: Chelita Hernandez RN Position: [facility] RN Member Role: Primary Care Nurse Name: Donald Purcell RN Position: [facility] RN Member Role: Primary Care Nurse Name: Shameka Hicks RN Position: [facility] RN Member Role: Primary Care Nurse Name: Lynette Wooten RN Position: [facility] RN Member Role: Primary Care Nurse Name: Batsheva Herring RN Position: [facility] OB RN Member Role: Primary Care Nurse Name: Roxana Hutchison RN Position: [facility] RN Member Role: Primary Care Nurse Name: David Mensah RN Position: [facility] RN Member Role: Primary Care Nurse Name: Mary Mckeon RN Position: [facility] AMB Nurse Member Role: Primary Care Nurse Care Team Related Persons Name: FANY CYR Address: home [address] [place] [id number] Name: KITTY CYR Address: [place] [address]
--- OUTSIDE RECORDS SUMMARY | 2023-04-27 13:35 | XMS_ITS | Continuity of Care Document ---
Author Name Unknown Organization [facility] Address [address] [place] [address]- Care Team Providers Care Switchboard And Control Room Operator Name Role Phone Tony Rhodes MD Primary Care Physician [facility] Date(s): 06/14/22 - 07/14/22 [facility] Adult [address] [place] [address]- Allergies, Adverse Reactions, Alerts Substance Reaction Severity [...] Pneumococcal Vacc (oldterm) 05/12/99 Given 1Location History: [facility] 2Admin Note: VIS GIVEN 3Location History: [facility] 4Admin Note: GIVEN BY JOHAN BOWERS BY JUDAH 5Admin Note: GIVEN IN CLINIC SHAM 6Admin Note: [facility] 7Admin Note: H1N1 Medications acetaminophen 325 [...] 5 Refills, Maintenance, 07/29/19 13:25:00 EDT, Powder, [facility], 167, cm, 04/30/19 15:55:00 EST, Height, [...] 3 Refills, Soft Stop, 09/05/21 15:18:00 EDT, [facility], 167, cm, 08/20/21 12:32:00 EDT, Height Start Date: 09/05/21 Status: Ordered Colace sodium 100 mg oral capsule 100 mg, 1, capsule, By Mouth, 2 times a day, # 60 capsule, Refills 0, Tot. Refills 0, Maintenance, 06/24/22 16:00:00 EST, Route to Pharmacy Electronically, [facility], Partial fill upon patient request if the prescription is for a schedule II opi... Start Date: 06/24/22 Status: Ordered collagenase topical 250 u/gm ointment 1 application, Topically, Daily, apply moist dressing over the santyl, triad cream on surrouding skin and DSD over all, # 90 Gm, 0 Refills, Maintenance, 07/08/22 13:04:00 EST, Ointment, [facility], Partial fill upon patient request if th... Start Date: 07/08/22 Status: Ordered Eliquis 5 mg oral tablet 1 tablet = 5 mg, By Mouth, 2 times a day, # 60 tablet, 0 Refills, Maintenance, 02/25/22 12:41:00 EDT, Tablet, [facility], 168, cm, 02/25/22 12:11:00 EDT, Height, 57.7, kg, 02/22/22 23:09:00 EDT,Dry Weight Start Date: 02/25/22 Stop Date: 03/27/22 Status: Ordered Keppra 500 mg oral tablet 1 tablet = 500 mg, By Mouth, 2 times a day, # 60 tablet, 6 Refills, Maintenance, 03/01/21 14:03:00 EDT, Tablet, [facility], Partial fill upon patient request if the prescription is for a schedule II opioid drug., 167, cm, 03/01/21 13:34:00 EDT, H... Start Date: 03/01/21 Status: Ordered levoFLOXacin 750 mg oral tablet 1 tablet = 750 mg, By Mouth, Every 48 hours, for 7 days, # 4 tablet, 0 Refills, Acute 07/15/22 9:15:00 EST, 07/08/22 9:15:00 EST, Tablet, [facility], Partial fill upon patient request if [...] tablet, 2 Refills, Maintenance, 02/18/22 9:48:00 EDT, [facility], 172.7, cm, 01/18/22 14:53:00 EDT, Height, 68.2, kg, 09/21/21 17:43:00 EDT, Dry Weight Start Date: 02/18/22 Status: Ordered MiraLax oral powder for reconstitution = 17 Gm, By Mouth, Daily, dissolve in water before taking, # 255 Gm, 0 Refills, Maintenance, 07/08/22 9:59:00 EST, REC Powder, [facility], Partial fill upon patient [...] 07/08/22 9:58:00 EST, Route to Pharmacy Electronically, [facility], Partial fill upon... Start Date: 07/08/22 Status: Ordered pentoxifylline 400 mg oral tablet, extended release 1, tablet, By Mouth, 3 times a day, # 90 tablet, Refills 11, Route to Pharmacy Electronically, [facility], 167, cm, 08/20/21 12:32:00 EDT, Height Start Date: 09/05/21 Status: Ordered sulfamethoxazole-trimethoprim 800 mg-160 mg oral tablet 1 tablet, By Mouth, 2 times a day, for 7 days, # 14 tablet, 0 Refills, Acute 07/15/22 9:14:00 EST, 07/08/22 9:14:00 EST, Tablet, [facility], Partial fill upon patient [...] Personnel Name: Ana Maria Cruz RN Position: [facility] RN Member Role: Primary Care Nurse Name: Morena Abraham RN Position: [facility] SN RN Member Role: Primary Care Nurse [...] Physician Member Role: PCP Address: Address: [address] [place] [id number] Name: Milad Rodríguez Position: [facility] RN Member Role: Primary Care Nurse Name: Rachel Brown RN [facility] Care Nurse Name: Barbara Post RN Position: [facility] RN Member Role: Primary Care Nurse Name: Roxana Hutchison RN Position: [facility] RN Member Role: Primary Care Nurse Name: Mary Mckeon RN Position: [facility] NELIDA Nurse Member Role: Primary Care Nurse Care Team Related Persons Name: KLARISSAFANY Address: home [address] [place] [address] Name: KITTY CYR Address: [place] [address]
--- OUTSIDE RECORDS SUMMARY | 2023-04-27 13:35 | XMS_ITS | Continuity of Care Document ---
Author Name Unknown Organization [facility] Address [address] [place] [address]- Care Team Providers Care Neon Sign Installer Name Role Phone Tony Rhodes MD Primary Care Physician [facility] Date[facility]s): 11/27/22 - 12/27/22 [facility] Adult [address] [place] [address]- Allergies, Adverse Reactions, Alerts Substance Reaction Severity Status Vioxx Hypertension Mild Active Immunizations Given and Recorded Vaccine Date Status Refusal Reason [id number] bivalent booster vax 03/11/22 Recorded influenza virus [...] (oldterm) 05/12/99 Given 1Location History: [facility] 2Admin Note: VIS GIVEN 3Location History: [facility] 4Admin Note: GIVEN BY JOHAN BOWERS BY JUDAH 5Admin Note: GIVEN IN CLINIC SHAM 6Admin Note: [employer] [facility] 7Admin Note: H1N1 Medications acetaminophen 325 [...] Team Personnel Name: Morena Abraham RN Position: [facility] SN RN Member Role: Primary Care Nurse Name: Jena Barron RN Position: [facility] RN Member Role: Primary Care Nurse Name: Faith Cheek RN Position: [facility] RN Member Role: Primary Care Nurse Name: Rodney He RN Position: [facility] RN Member Role: Primary Care Nurse Name: Barbara Snider RN Position: [facility] SN RN Member Role: Primary Care Nurse Name: Ana Maria Gonzalez RN Position: [facility] RN Member Role: Primary Care Nurse Name: Rae Vigil RN Position: [facility] RN Member Role: Primary Care Nurse Name: Johan Montes RN Position: [facility] RN Member Role: Primary Care Nurse Name: Tony Rhodes MD Position: [facility] Physician - Primary Care Member Role: PCP Address: Address: [address] [place] [id number] Name: Rachel Brown RN Position: [facility] RN Member Role: Primary Care Nurse Name: Lucia Denton RN Position: [facility] RN Member Role: Primary Care Nurse Name: Quin Oliveira RN Position: [facility] RN Member Role: Primary Care Nurse Name: Chelita Hernandez RN Position: [facility] RN Member Role: Primary Care Nurse Name: Lynette Leon RN Position: [facility] RN Member Role: Primary Care Nurse Name: Donald Purcell RN Position: [facility] RN Member Role: Primary Care Nurse Name: Shameka Hicks RN Position: [facility] RN Member Role: Primary Care Nurse Name: Lynette Wooten RN Position: [facility] RN Member Role: Primary Care Nurse Name: Batsheva Herring RN Position: [facility] OB RN Member Role: Primary Care Nurse Name: Roxana Hutchison RN Position: [facility] AMB Nurse Member Role: Primary Care Nurse Name: David Mensah RN Position: [facility] RN Member Role: Primary Care Nurse Name: Mary Mckeon RN Position: [facility] AMB Nurse Member Role: Primary Care Nurse Care Team Related Persons Name: FANY CYR Address: [address] [address] Name: KITTY CYR
--- OUTSIDE RECORDS SUMMARY | 2023-04-27 13:36 | XMS_ITS | Continuity of Care Document ---
Author Name Unknown Organization [facility] Address [address] [place] [address]- Care Team Providers Care Binding End Stitcher Name Role Phone Meagan DILL, Tony Gaines Primary Care Physician [phone] [facility]counter [facility] Date[facility]s): 06/18/22 - 07/20/22 [facility] [address] [place] [address]- Allergies, Adverse Reactions, Alerts Substance Reaction Severity Status Vioxx Hypertension Mild Active Immunizations Given and Recorded Vaccine Date Status Refusal Reason [id number] bivalent booster vax 03/11/22 Recorded influenza virus [...] 05/12/99 Given 1Location History: [facility] 2Admin Note: VIS GIVEN 3Location History: [facility] 4Admin Note: GIVEN BY JOHAN BOWERS BY JUDAH 5Admin Note: GIVEN IN CLINIC SHAM 6Admin Note: [employer] [facility] 7Admin Note: H1N1 Medications [...] 5 Refills, Maintenance, 07/29/19 13:25:00 EDT, Powder, [facility], 167, cm, 04/30/19 15:55:00 EST, Height, [...] 3 Refills, Soft Stop, 09/05/21 15:18:00 EDT, [facility], 167, cm, 08/20/21 12:32:00 EDT, Height Start Date: 09/05/21 Status: Ordered Colace sodium 100 mg oral capsule 100 mg, 1, capsule, By Mouth, 2 times a day, # 60 capsule, Refills 0, Tot. Refills 0, Maintenance, 06/24/22 16:00:00 EST, Route to Pharmacy Electronically, [facility], Partial fill upon patient request if the prescription is for a schedule II opi... Start Date: 06/24/22 Status: Ordered collagenase topical 250 u/gm ointment 1 application, Topically, Daily, apply moist dressing over the santyl, triad cream on surrouding skin and DSD over all, # 90 Gm, 0 Refills, Maintenance, 07/08/22 13:04:00 EST, Ointment, [facility], Partial fill upon patient request if th... Start Date: 07/08/22 Status: Ordered Eliquis 5 mg oral tablet 1 tablet = 5 mg, By Mouth, 2 times a day, # 60 tablet, 0 Refills, Maintenance, 02/25/22 12:41:00 EDT, Tablet, [facility], 168, cm, 02/25/22 12:11:00 EDT, Height, 57.7, kg, 02/22/22 23:09:00 EDT,Dry Weight Start Date: 02/25/22 Stop Date: 03/27/22 Status: Ordered Keppra 500 mg oral tablet 1 tablet = 500 mg, By Mouth, 2 times a day, # 60 tablet, 6 Refills, Maintenance, 03/01/21 14:03:00 EDT, Tablet, [facility], Partial fill upon patient request if [...] tablet, 2 Refills, Maintenance, 02/18/22 9:48:00 EDT, [facility], 172.7, cm, 01/18/22 14:53:00 EDT, Height, 68.2, kg, 09/21/21 17:43:00 EDT, Dry Weight Start Date: 02/18/22 Status: Ordered MiraLax oral powder for reconstitution = 17 Gm, By Mouth, Daily, dissolve in water before taking, # 255 Gm, 0 Refills, Maintenance, 07/08/22 9:59:00 EST, REC Powder, [facility], Partial fill upon patient [...] 07/08/22 9:58:00 EST, Route to Pharmacy Electronically, [facility], Partial fill upon... Start Date: 07/08/22 Status: Ordered pentoxifylline 400 mg oral tablet, extended release 1, tablet, By Mouth, 3 times a day, # 90 tablet, Refills 11, Route to Pharmacy Electronically, [facility], 167, cm, 04/11/22 12:32:00 EDT, Height Start Date: 09/05/21 Status: [...] Personnel Name: Ana Maria Cruz RN Position: [facility] RN Member Role: Primary Care Nurse Name: Morena Abraham RN Position: [facility] SN RN Member Role: Primary Care Nurse Name: Jena Barron RN Position: [facility] RN Member Role: Primary Care Nurse Name: Faith Cheek RN Position: [facility] RN Member Role: Primary Care Nurse Name: Rodney He RN Position: [facility] RN Member Role: Primary Care Nurse Name: Ana Maria Gonzalez RN Position: [facility] RN Member Role: Primary Care Nurse Name: Rae Vigil RN Position: [facility] RN Member Role: Primary Care Nurse Name: Johan Montes RN Position: [facility] RN Member Role: Primary Care Nurse Name: Tony Rhodes MD Position: [facility] Primary Care Physician Member Role: PCP Address: Address: [address] [place] [id number] Name: Milad Rodríguez Position: [facility] RN Member Role: Primary Care Nurse Name: Rachel Brown RN Position: [facility] RN Member Role: Primary Care Nurse Name: Lucia Denton RN Position: [facility] RN Member Role: Primary Care Nurse Name: Chelita Hernandez RN Position: [facility] RN Member Role: Primary Care Nurse Name: Donald Purcell RN Position: [facility] RN Member Role: Primary Care Nurse Name: Shameka Hicks RN Position: [facility] RN Member Role: Primary Care Nurse Name: Lynette Wooten RN Position: [facility] RN Member Role: Primary Care Nurse Name: Batsheva Herring RN Position: [facility] AMB Nurse Member Role: Primary Care Nurse Name: Barbara Post RN Position: [facility] RN Member Role: Primary Care Nurse Name: Roxana Hutchison RN Position: [facility] RN Member Role: Primary Care Nurse Name: David Mensah RN Position: [facility] RN Member Role: Primary Care Nurse Name: Mary Mckeon RN Position: [facility] AMB Nurse Member Role: Primary Care Nurse Care Team Related Persons Name: KLARISSA FANY Address: home [address] [place] [address] Name: KLARISSA KITTY Address: [place] [address]
--- OUTSIDE RECORDS SUMMARY | 2023-04-27 13:36 | XMS_ITS | Continuity of Care Document ---
Author Name Unknown Organization [facility] Address [address] [place] [address]- Care Team Providers Care Classified Ad Taker Name Role Phone Tony Rhodes MD Primary Care Physician [facility] 12[facility]20[facility]22 - 01/19/23 [facility] Adult [address] [place] [address]- Allergies, Adverse Reactions, Alerts Substance Reaction Severity Status Vioxx Hypertension Mild Active Immunizations Given and Recorded Vaccine Date Status Refusal Reason [id number] bivalent booster vax 03/11/22 Recorded influenza virus [...] (oldterm) 05/12/99 Given 1Location History: [facility] 2Admin Note: VIS GIVEN 3Location History: [facility] 4Admin Note: GIVEN BY JOHAN BOWERS BY JUDAH 5Admin Note: GIVEN IN CLINIC SHAM 6Admin Note: [employer] [facility] 7Admin Note: H1N1 Medications acetaminophen 325 [...] Name: Morena Abraham RN Position: [facility] SN RN Member Role: Primary Care Nurse Name: Jena Barron RN Position: [facility] RN Member Role: Primary Care Nurse Name: Faith Cheek RN Position: [facility] RN Member Role: Primary Care Nurse Name: Rodney He RN Position: [facility] RN Member Role: Primary Care Nurse Name: Barbara Snider RN Position: [facility] SN RN Member Role: Primary Care Nurse Name: Ana Maria Gonzalez RN Position: [facility] RN Member Role: Primary Care Nurse Name: Rae Vigil RN Position: [facility] RN Member Role: Primary Care Nurse Name: Johan Montes RN Position: [facility] RN Member Role: Primary Care Nurse Name: Tony Rhodes MD Position: [facility] Physician - Primary Care Member Role: PCP Address: Address: [address] [place] [id number] Name: Rachel Brown RN Position: [facility] RN Member Role: Primary Care Nurse Name: Lucia Denton RN Position: [facility] RN Member Role: Primary Care Nurse Name: Quin Oliveira RN Position: [facility] RN Member Role: Primary Care Nurse Name: Chelita Hernandez RN Position: [facility] RN Member Role: Primary Care Nurse Name: Lynette Leon RN Position: [facility] RN Member Role: Primary Care Nurse Name: Donald Purcell RN Position: [facility] RN Member Role: Primary Care Nurse Name: Shameka Hicks RN Position: [facility] RN Member Role: Primary Care Nurse Name: Lynette Wooten RN Position: [facility] RN Member Role: Primary Care Nurse Name: Batsheva Herring RN Position: [facility] OB RN Member Role: Primary Care Nurse Name: Roxana Hutchison RN Position: [facility] AMB Nurse Member Role: Primary Care Nurse Name: David Mensah RN Position: [facility] RN Member Role: Primary Care Nurse Name: Mary Mckeon RN Position: [facility] AMB Nurse Member Role: Primary Care Nurse Care Team Related Persons Name: FANY CYR Address: [place] [address] Name: KITTY CYR
--- OUTSIDE RECORDS SUMMARY | 2023-04-27 13:36 | XMS_ITS | Continuity of Care Document ---
Author Name Unknown Organization [facility] Chap[place] Toro Ben lt Address [address] [place] [address]- Care Team Providers Care Shoe Sticks Repairer Name Role Phone Tony Rhodes MD Primary Care Physician [facility]22 - 05/30/22 [facility] Adult [address] [place] [address]- Allergies, Adverse Reactions, Alerts Substance Reaction Severity [...] Pneumococcal Vacc (oldterm) 05/12/99 Given 1Location History: [facility] 2Admin Note: VIS GIVEN 3Location History: [facility] 4Admin Note: GIVEN BY ANDIE DOC BY JUDAH 5Admin Note: GIVEN IN CLINIC SHAM 6Admin Note: [employer] [facility] 7Admin Note: H1N1 Medications acetaminophen [...] 5 Refills, Maintenance, 07/29/19 13:25:00 EDT, Powder, [facility], 167, cm, 04/30/19 15:55:00 EST, Height, 70.2, kg, 07/31/18 6:33:00EDT, Dry Weight Start Date: 07/29/19 Status: Ordered amiodarone 200 mg oral tablet 2, tablet, By Mouth, 2 times a day, # 120 tablet, Refills 6, Maintenance, 02/18/22 9:48:00 EDT, Route to Pharmacy Electronically, [facility], 172.7, cm, 01/18/22 14:53:00 EDT, Height, [...] 3 Refills, Soft Stop, 09/05/21 15:18:00 EDT, [facility], 167, cm, 08/20/21 12:32:00 EDT, Height [...] 02/18/22 9:47:00 EDT, Route to Pharmacy Electronically, [facility], 172.7, cm, 01/18/22 14:53:00 EDT, Height, [...] 0 Refills, Maintenance, 02/25/22 12:41:00 EDT, Tablet, [facility], 168, cm, 02/25/22 12:11:00 EDT, Height, [...] 25 tablet, 0 Refills, 10/18/20 16:42:00 EDT, [facility], 167, cm, 08/21/20 14:59:00 EDT, Height Start Date: 10/18/20 Status: Ordered omeprazole 20 mg oral delayed release tablet 1 tablet = 20 mg, By Mouth, Daily in AM, Maintenance, 09/21/21 16:06:00 EDT Start Date: 09/21/21 Status: Ordered pentoxifylline 400 mg oral tablet, extended release 1, tablet, By Mouth, 3 times a day, # 90 tablet, Refills 11, Route to Pharmacy Electronically, [facility], 167, cm, 08/20/21 12:32:00 EDT, Height [...] team information Care Team Personnel Name: Ana Maira Cruz RN Position: S RN Member Role: Primary Care Nurse Name: Morena Abraham RN Position: S RN Member Role: Primary Care Nurse Name: Jena Barron RN Position: [facility] RN Member Role: Primary Care Nurse Name: Ana Maria Gonzalez RN Position: [facility] RN Member Role: Primary Care Nurse Name: Rae Vigil RN Position: [facility] ED RN W/OE and Tasks Member Role: Primary Care Nurse Name: Tony Rhodes MD Position: [facility] Primary Care Physician Member Role: PCP Address: Address: [address] [place] [id number] Name: Rachel Brown RN Position: [facility] RN Member Role: Primary Care Nurse Name: Lucia Denton RN Position: [facility] RN Member Role: Primary Care Nurse Name: Chelita Hernandez RN Position: [facility] RN Member Role: Primary Care Nurse Name: Elizabeth Taylor Position: [facility] RN Member Role: Primary Care Nurse Name: Batsheva Herring RN Position: [facility] AMB Nurse Member Role: Primary Care Nurse Name: Roxana Hutchison RN Position: [facility] RN Member Role: Primary Care Nurse Name: Mary Mckeon RN Position: [facility] AMB Nurse Member Role: Primary Care Nurse Care Team Related Persons Name: FANY CYR Address: home [address] [place] [address] Name: KITTY CYR Address: [place] [address]
--- OUTSIDE RECORDS SUMMARY | 2023-04-27 13:36 | XMS_ITS | Continuity of Care Document ---
Author Name Unknown Organization [facility] Ben lt Address [address] [place] [address]- Care Team Providers Care Demolition Worker Name Role Phone Tony Rhodes MD Primary Care Physician [facility]): 09/05/22 - 10/05/22 [facility] Adult [address] [place] [address]- Allergies, Adverse Reactions, Alerts Substance Reaction Severity Status Vioxx Hypertension Mild Active Immunizations Given and Recorded Vaccine Date Status Refusal Reason [id number] bivalent booster vax 03/11/22 Recorded influenza virus [...] (oldterm) 05/12/99 Given 1[facility] 2Admin Note: VIS GIVEN 3Location History: [facility] 4Admin Note: GIVEN BY JOHAN BOWERS BY JUDAH 5Admin Note: GIVEN IN CLINIC SHAM 6Admin Note: [employer] [facility] 7Admin Note: H1N1 Medications acetaminophen 325 mg [...] Gm, 0 Refills, Maintenance, 08/01/22 15:26:00 EDT, [facility], Partial fill upon patient request if the prescription is for a schedule II opioid drug., 170, cm, 08/01/22 14:54:00 EDT, Height, 45.7, kg, 03... Start Date: 08/01/22 Status: Ordered albuterol 90 mcg/inh inhalation powder 2 puffs, Inhalation, Every 4 hours, PRN as needed, # 1 each, 5 Refills, Maintenance, 07/29/19 13:25:00 EDT, Powder, [facility], 167, cm, 04/30/19 15:55:00 EST, Height, [...] 1 Refills, Soft Stop, 09/04/22 16:59:00 EDT, [facility], 170, cm, 08/01/22 14:54:00 EDT, Height, 45.7, kg, 07/12/22 22:04:00 EST, DryWeight Start Date: 09/04/22 Status: Ordered cloNIDine 0.1 mg oral tablet 0.1 mg, 1, tablet, By Mouth, 2 times a day, # 60 tablet, Refills 2, Tot. Refills 2, Maintenance, 09/05/22 13:27:00 EDT, Route to Pharmacy Electronically, [facility], Partial fill upon patient request if the prescription is for a schedule II opioi... Start Date: 09/05/22 Status: Ordered Colace sodium 100 mg oral capsule 100 mg, 1, capsule, By Mouth, 2 times a day, # 60 capsule, Refills 0, Tot. Refills 0, Maintenance, 06/24/22 16:00:00 EST, Route to Pharmacy Electronically, [facility], Partial fill upon patient request if the prescription is for a schedule II opi... Start Date: 06/24/22 Status: Ordered collagenase topical 250 u/gm ointment 1 application, Topically, Daily, apply moist dressing over the santyl, triad cream on surrouding skin and DSD over all, # 90 Gm, 0 Refills, Maintenance, 07/08/22 13:04:00 EST, Ointment, [facility], Partial fill upon patient request if th... Start Date: 07/08/22 Status: Ordered Eliquis 5 mg oral tablet 1 tablet = 5 mg, By Mouth, 2 times a day, # 60 tablet, 2 Refills, Maintenance, 09/05/22 13:34:00 EDT, Tablet, [facility], 170, cm, 08/01/22 14:54:00 EDT, Height, 45.7, kg, 07/12/22 22:04:00 EST,Dry Weight Start Date: 09/05/22 Stop Date: 12/04/22 Status: Ordered Keppra 500 mg oral tablet 1 tablet = 500 mg, By Mouth, 2 times a day, # 60 tablet, 2 Refills, Maintenance, 09/05/22 13:26:00 EDT, Tablet, [facility], Partial fill upon patient request if [...] tablet, 2 Refills, Maintenance, 02/18/22 9:48:00 EDT, [facility], 172.7, cm, 01/18/22 14:53:00 EDT, Height, 68.2, kg, 09/21/21 17:43:00 EDT, Dry Weight Start Date: 02/18/22 Status: Ordered MiraLax oral powder for reconstitution = 17 Gm, By Mouth, Daily, dissolve in water before taking, # 255 Gm, 0 Refills, Maintenance, 07/08/22 9:59:00 EST, REC Powder, [facility], Partial fill upon patient [...] 07/08/22 9:58:00 EST, Route to Pharmacy Electronically, [facility], Partial fill upon... Start Date: 07/08/22 Status: Ordered pentoxifylline 400 mg oral tablet, extended release 1, tablet, By Mouth, 3 times a day, # 90 tablet, Refills 11, Route to Pharmacy Electronically, [facility], 167, cm, 08/20/21 12:32:00 EDT, Height Start Date: 09/05/21 Status: Ordered Vitamin D3 10,000 intl units oral capsule 1 capsule = 250 mcg, By Mouth, Every week, # 6 capsule, 0 Refills, Maintenance, 12/19/21 12:19:00 EDT, Capsule, [facility], Partial fill upon patient request if [...] Name: Morena Abraham RN Position: [facility] SN RN Member Role: Primary Care Nurse Name: Jena Barron RN Position: [facility] RN Member Role: Primary Care Nurse Name: Faith Cheek RN Position: [facility] RN Member Role: Primary Care Nurse Name: Rodney He RN Position: [facility] RN Member Role: Primary Care Nurse Name: Barbara Snider RN Position: [facility] SN RN Member Role: Primary Care Nurse Name: Ana Maria Gonzalez RN Position: [facility] RN Member Role: Primary Care Nurse Name: Rae Vigil RN Position: [facility] RN Member Role: Primary Care Nurse Name: Johan Montes RN Position: [facility] RN Member Role: Primary Care Nurse Name: Tony Rhodes MD Position: [facility] Physician - Primary Care Member Role: PCP Address: Address: [address] [place] [id number]- Name: Milad Rodríguez Position: [facility] RN Member Role: Primary Care Nurse Name: Rachel Brown RN Position: [facility] RN Member Role: Primary Care Nurse Name: Lucia Denton RN Position: [facility] RN Member Role: Primary Care Nurse Name: Bill Velazquez RN Position: [facility] RN Member Role: Primary Care Nurse Name: Chelita Hernandez RN Position: [facility] RN Member Role: Primary Care Nurse Name: Donald Purcell RN Position: [facility] RN Member Role: Primary Care Nurse Name: Shameka Hicks RN Position: [facility] RN Member Role: Primary Care Nurse Name: Lynette Wooten RN Position: [facility] RN Member Role: Primary Care Nurse Name: Batsheva Herring RN Position: [facility] OB RN Member Role: Primary Care Nurse Name: Roxana Hutchison RN Position: [facility] RN Member Role: Primary Care Nurse Name: David Mensah RN Position: [facility] RN Member Role: Primary Care Nurse Name: Mary Mckeon RN Position: [facility] AMB Nurse Member Role: Primary Care Nurse Care Team Related Persons Name: FANY CYR Address: home [address] [place] [id number] Name: KITTY CYR Address: [place] [address]
--- OUTSIDE RECORDS SUMMARY | 2023-04-27 13:36 | XMS_ITS | Continuity of Care Document ---
Author Name Unknown Organization [facility] Ben lt Address [address] [place] [address]- Care Team Providers Care Brick Kiln Worker Name Role Phone Tony Rhodes MD Primary Care Physician [facility] 06/25/22 - 07/25/22 [facility] Adult [address] [place] [address]- Allergies, Adverse Reactions, Alerts Substance Reaction Severity Status Vioxx Hypertension Mild Active Immunizations Given and Recorded Vaccine Date Status Refusal Reason [id number] bivalent booster vax 03/11/22 Recorded influenza virus [...] Pneumococcal Vacc (oldterm) 05/12/99 Given 1Location History: [facility] 2Admin Note: VIS GIVEN 3[facility] 4Admin Note: GIVEN BY JOHAN BOWERS BY JUDAH 5Admin Note: GIVEN IN CLINIC SHAM 6Admin Note: [employer] [facility] 7Admin Note: H1N1 Medications acetaminophen 325 [...] 5 Refills, Maintenance, 07/29/19 13:25:00 EDT, Powder, [facility], 167, cm, 04/30/19 15:55:00 EST, Height, [...] 3 Refills, Soft Stop, 09/05/21 15:18:00 EDT, [facility], 167, cm, 08/20/21 12:32:00 EDT, Height [...] 0 Refills, Maintenance, 07/08/22 13:04:00 EST, Ointment, [facility], Partial fill upon patient request if th... Start Date: 07/08/22 Status: Ordered Eliquis 5 mg oral tablet 1 tablet = 5 mg, By Mouth, 2 times a day, # 60 tablet, 0 Refills, Maintenance, 02/25/22 12:41:00 EDT, Tablet, [facility], 168, cm, 02/25/22 12:11:00 EDT, Height, 57.7, kg, 02/22/22 23:09:00 EDT,Dry Weight Start Date: 02/25/22 Stop Date: 03/27/22 Status: Ordered Keppra 500 mg oral tablet 1 tablet = 500 mg, By Mouth, 2 times a day, # 60 tablet, 6 Refills, Maintenance, 03/01/21 14:03:00 EDT, Tablet, [facility], Partial fill upon patient request if [...] tablet, 2 Refills, Maintenance, 02/18/22 9:48:00 EDT, [facility], 172.7, cm, 01/18/22 14:53:00 EDT, Height, 68.2, kg, 09/21/21 17:43:00 EDT, Dry Weight Start Date: 02/18/22 Status: Ordered MiraLax oral powder for reconstitution = 17 Gm, By Mouth, Daily, dissolve in water before taking, # 255 Gm, 0 Refills, Maintenance, 07/08/22 9:59:00 EST, REC Powder, [facility], Partial fill upon [...] 07/08/22 9:58:00 EST, Route to Pharmacy Electronically, [facility], Partial fill upon... Start Date: 07/08/22 Status: Ordered pentoxifylline 400 mg oral tablet, extended release 1, tablet, By Mouth, 3 times a day, # 90 tablet, Refills 11, Route to Pharmacy Electronically, [facility], 167, cm, 08/20/21 12:32:00 EDT, Height [...] Care Nurse Name: Jena Barron RN Position: [facility] RN Member Role: Primary Care Nurse Name: Faith Cheek RN Position: [facility] RN Member Role: Primary Care Nurse Name: Rodney He RN Position: [facility] RN Member Role: Primary Care Nurse Name: Ana Maria Gonzalez RN Position: [facility] RN Member Role: Primary Care Nurse Name: Rae Vigil RN Position: [facility] RN Member Role: Primary Care Nurse Name: Johan Montes RN Position: [facility] RN Member Role: Primary Care Nurse Name: Tony Rhodes MD Position: [facility] Primary Care Physician Member Role: PCP Address: Address: [address] [place] [id number] Name: Milad Rodríguez Position: [facility] RN Member Role: Primary Care Nurse Name: Rachel Brown RN Position: [facility] RN Member Role: Primary Care Nurse Name: Lucia Denton RN Position: [facility] RN Member Role: Primary Care Nurse Name: Bill Velazquez RN Position: [facility] RN Member Role: Primary Care Nurse Name: Chelita Hernandez RN Position: [facility] RN Member Role: Primary Care Nurse Name: Donald Purcell RN Position: [facility] RN Member Role: Primary Care Nurse Name: Shameka Hicks RN Position: [facility] RN Member Role: Primary Care Nurse Name: Lynette Wooten RN Position: [facility] RN Member Role: Primary Care Nurse Name: Batsheva Herring RN Position: [facility] AMB Nurse Member Role: Primary Care Nurse Name: Barbara Post RN Position: [facility] RN Member Role: Primary Care Nurse Name: Roxana Hutchison RN Position: [facility] RN Member Role: Primary Care Nurse Name: David Mensah RN Position: [facility] RN Member Role: Primary Care Nurse Name: Mary Mckeon RN Position: [facility] AMB Nurse Member Role: Primary Care Nurse Care Team Related Persons Name: FANY CYR Address: home [address] [place] [address] Name: KITTY CYR Address: [place] [address]
--- OUTSIDE RECORDS SUMMARY | 2023-04-27 13:36 | XMS_ITS | Continuity of Care Document ---
Author Name Unknown Organization [facility] Ben lt Address [address] [place] [address]- Care Team Providers Care Formulation Scientist Name Role Phone Tony Rhodes MD Primary Care Physician [facility]22 - 11/11/22 [facility] Adult [address] [place] [address]- Encounter Diagnosis AKA stump complication(Discharge Diagnosis) - 11/04/22 Decubitus ulcers(Discharge Diagnosis) - 11/04/22 Atrial fibrillation(Discharge Diagnosis) - 11/04/22 CVA - Cerebrovascular accident/TIA w/no residual(Discharge Diagnosis) - 11/04/22 CAD - Coronary artery disease(Discharge Diagnosis) - 11/04/22 Hypercholesterolemia(Discharge Diagnosis) - 11/04/22 PAD (peripheral artery disease)(Discharge Diagnosis) - 11/04/22 PVD (peripheral vascular disease)(Discharge Diagnosis) - 11/04/22 Hypertension(Discharge Diagnosis) - 11/04/22 Current tobacco use, 1-1.5 ppd, quit 08/14/2016(Discharge Diagnosis) - 11/04/22 COPD - Chronic obstructive pulmonary disease(Discharge Diagnosis) - 11/04/22 Opiate dependence(Discharge Diagnosis) - 11/04/22 Attending Physician: Not on Staff, Attending MD Allergies, Adverse Reactions, Alerts Substance Reaction Severity Status Vioxx Hypertension Mild Active Immunizations Given and Recorded Vaccine Date Status Refusal Reason [id number] bivalent booster vax 03/11/22 Recorded influenza virus [...] Pneumococcal Vacc (oldterm) 05/12/99 Given 1Location History: [facility] 2Admin Note: VIS GIVEN 3Location History: [facility] 4Admin Note: GIVEN BY JOHAN DOC BY JUDAH 5Admin Note: GIVEN IN CLINIC SHAM 6Admin Note: [facility] 7Admin Note: H1N1 Medications acetaminophen [...] hours, # 8 Gm, 0 Refills, Maintenance, 03/23/23 15:26:00 EDT, [facility], Partial fill upon patient request if the prescription is for a schedule II opioid drug., 170, cm, 08/01/22 14:54:00 EDT, Height, 45.7, kg, 0... Start Date: 08/01/22 Status: Ordered albuterol 90 mcg/inh inhalation powder 2 puffs, Inhalation, Every 4 hours, PRN as needed, # 1 each, 5 Refills, Maintenance, 07/29/19 13:25:00 EDT, Powder, [facility], 167, cm, 04/30/19 15:55:00 EST, Height, [...] 1 Refills, Soft Stop, 09/04/22 16:59:00 EDT, [facility], 170, cm, 08/01/22 14:54:00 EDT, Height, 45.7, kg, 07/12/22 22:04:00 EST, DryWeight Start Date: 09/04/22 Status: Ordered cloNIDine 0.1 mg oral tablet 0.1 mg, 1, tablet, By Mouth, 2 times a day, # 60 tablet, Refills 2, Tot. Refills 2, Maintenance, 09/05/22 13:27:00 EDT, Route to Pharmacy Electronically, [facility], Partial fill upon patient request if the prescription is for a schedule II opioi... Start Date: 09/05/22 Status: Ordered Colace sodium 100 mg oral capsule 100 mg, 1, capsule, By Mouth, 2 times a day, # 60 capsule, Refills 0, Tot. Refills 0, Maintenance, 06/24/22 16:00:00 EST, Route to Pharmacy Electronically, [facility], Partial fill upon patient request if the prescription is for a schedule II opi... Start Date: 06/24/22 Status: Ordered collagenase topical 250 u/gm ointment 1 application, Topically, Daily, apply moist dressing over the santyl, triad cream on surrouding skin and DSD over all, # 90 Gm, 0 Refills, Maintenance, 07/08/22 13:04:00 EST, Ointment, [facility], Partial fill upon patient request if th... Start Date: 07/08/22 Status: Ordered Eliquis 5 mg oral tablet 1 tablet = 5 mg, By Mouth, 2 times a day, # 60 tablet, 2 Refills, Maintenance, 09/05/22 13:34:00 EDT, Tablet, [facility], 170, cm, 08/01/22 14:54:00 EDT, Height, 45.7, kg, 07/12/22 22:04:00 EST,Dry Weight Start Date: 09/05/22 Stop Date: 12/04/22 Status: Ordered Keppra 500 mg oral tablet 1 tablet = 500 mg, By Mouth, 2 times a day, # 60 tablet, 2 Refills, Maintenance, 09/05/22 13:26:00 EDT, Tablet, [facility], Partial fill upon patient request if [...] Refills, Maintenance, 07/08/22 9:59:00 EST, REC Powder, [facility], Partial fill upon patient request if [...] Effective Dates Health Status Clinical Service Informant AKA stump complication Discharge Diagnosis 11/04/22 Decubitus ulcers Discharge Diagnosis 11/04/22 Atrial fibrillation Discharge Diagnosis 11/04/22 CVA - Cerebrovascular accident/TIA w/no residual Discharge Diagnosis 11/04/22 CAD - Coronary artery disease Discharge Diagnosis 11/04/22 Hypercholesterolemia Discharge Diagnosis 11/04/22 PAD (peripheral artery disease) Discharge Diagnosis 11/04/22 PVD (peripheral vascular disease) Discharge Diagnosis 11/04/22 Hypertension Discharge Diagnosis 11/04/22 Current tobacco use, 1-1.5 ppd, quit 08/14/2016 Discharge Diagnosis 11/04/22 COPD - Chronic obstructive pulmonary disease Discharge Diagnosis 11/04/22 Opiate dependence Discharge Diagnosis 11/04/22 Vital Signs Most recent to oldest [Reference Range]: 1 Height 170 cm (11/04/22 2:39 PM) Oxygen Saturation [94-100 %] 94 % (11/04/22 2:39 PM) Pulse Rate [55-90 bpm] 89 bpm (11/04/22 2:39 PM) Blood Pressure [90-138/55-84 mm Hg] 133/ 79mm Hg (11/04/22 2:39 PM) Respiratory Rate [16-30 br/min] 20 br/mi n (6/26/23 2:39 PM) Mode of Delivery (Oxygen) Room air (11/04/22 2:39 PM) Blood pressure sites Arm, right (11/04/22 2:39 PM) Social History Social History Type Response Smoking Status 10 or more cigarette s (1/2 pack or more)/day in last 30 days; Other: 2 PPD; entered on: 11/04/22 Sex Patient Care team information Care Team Personnel Name: Morena Abraham RN Position: [facility] SN RN Member Role: Primary Care Nurse Name: Jena Barron RN Position: [facility] RN Member Role: Primary Care Nurse Name: Faith Cheek RN Position: [facility] RN Member Role: Primary Care Nurse Name: Rodney He RN Position: [facility] RN Member Role: Primary Care Nurse Name: Barbara Snider RN Position: [facility] SN RN Member Role: Primary Care Nurse Name: Ana Maria Gonzalez RN Position: [facility] RN Member Role: Primary Care Nurse Name: Rae Vigil RN Position: [facility] RN Member Role: Primary Care Nurse Name: Johan Montes RN Position: [facility] RN Member Role: Primary Care Nurse Name: Tony Rhodes MD Position: [facility] Physician - Primary Care Member Role: PCP Address: Address: [address] [place] [id number] Name: Rachel Brown RN Position: [facility] RN Member Role: Primary Care Nurse Name: Lucia Denton RN Position: [facility] RN Member Role: Primary Care Nurse Name: Quin Oliveira RN Position: [facility] RN Member Role: Primary Care Nurse Name: Chelita Hernandez RN Position: [facility] RN Member Role: Primary Care Nurse Name: Lynette Leon RN Position: [facility] RN Member Role: Primary Care Nurse Name: Donald Purcell RN Position: [facility] RN Member Role: Primary Care Nurse Name: Shaemka Hicks RN Position: [facility] RN Member Role: Primary Care Nurse Name: Lynette Wooten RN Position: [facility] RN Member Role: Primary Care Nurse Name: Batsheva Herring RN Position: [facility] OB RN Member Role: Primary Care Nurse Name: Roxana Hutchison RN Position: [facility] AMB Nurse Member Role: Primary Care Nurse Name: David Mensah RN Position: [facility] RN Member Role: Primary Care Nurse Name: Mary Mckeon RN Position: [facility] AMB Nurse Member Role: Primary Care Nurse Care Team Related Persons Name: FANY CYR Address: [address] [address] Name: KITTY CYR
--- OUTSIDE RECORDS SUMMARY | 2023-04-27 13:36 | XMS_ITS | Continuity of Care Document ---
Author Name Unknown Organization [facility] Address [address] [place] [address]- Care Team Providers Care Civil Engineering Designer Name Role Phone Meagan DILL, Tony Gaines Primary Care Physician [facility] Date[facility]s): 06/18/22 - 07/18/22 [facility] [address] [place], [place] [address] Allergies, Adverse Reactions, Alerts Substance Reaction Severity Status Vioxx Hypertension Mild Active Immunizations Given and Recorded Vaccine Date Status Refusal Reason [id number] bivalent booster vax 03/11/22 Recorded influenza virus [...] (oldterm) 05/12/99 Given 1Location History: [facility] [place] 2Admin Note: VIS GIVEN 3Location History: [facility] 4Admin Note: GIVEN BY JOHAN BOWERS BY JUDAH 5Admin Note: GIVEN IN [facility]IC [facility] 6Admin Note: [employer] [facility] 7Admin Note: H1N1 Medications acetaminophen [...] 5 Refills, Maintenance, 07/29/19 13:25:00 EDT, Powder, [facility], 167, cm, 04/30/19 15:55:00 EST, Height, [...] 3 Refills, Soft Stop, 09/05/21 15:18:00 EDT, [facility], 167, cm, 08/20/21 12:32:00 EDT, Height Start Date: 09/05/21 Status: Ordered Colace sodium 100 mg oral capsule 100 mg, 1, capsule, By Mouth, 2 times a day, # 60 capsule, Refills 0, Tot. Refills 0, Maintenance, 06/24/22 16:00:00 EST, Route to Pharmacy Electronically, [facility], Partial fill upon patient request if the prescription is for a schedule II opi... Start Date: 06/24/22 Status: Ordered collagenase topical 250 u/gm ointment 1 application, Topically, Daily, apply moist dressing over the santyl, triad cream on surrouding skin and DSD over all, # 90 Gm, 0 Refills, Maintenance, 07/08/22 13:04:00 EST, Ointment, [facility], Partial fill upon patient request if th... Start Date: 07/08/22 Status: Ordered Eliquis 5 mg oral tablet 1 tablet = 5 mg, By Mouth, 2 times a day, # 60 tablet, 0 Refills, Maintenance, 02/25/22 12:41:00 EDT, Tablet, [facility], 168, cm, 02/25/22 12:11:00 EDT, Height, 57.7, kg, 02/22/22 23:09:00 EDT,Dry Weight Start Date: 02/25/22 Stop Date: 03/27/22 Status: Ordered Keppra 500 mg oral tablet 1 tablet = 500 mg, By Mouth, 2 times a day, # 60 tablet, 6 Refills, Maintenance, 03/01/21 14:03:00 EDT, Tablet, [facility], Partial fill upon patient request if [...] tablet, 2 Refills, Maintenance, 02/18/22 9:48:00 EDT, [facility], 172.7, cm, 01/18/22 14:53:00 EDT, Height, [...] 9:58:00 EST, Route to Pharmacy Electronically, [facility], Partial fill upon... Start Date: 07/08/22 Status: Ordered pentoxifylline 400 mg oral tablet, extended release 1, tablet, By Mouth, 3 times a day, # 90 tablet, Refills 11, Route to Pharmacy Electronically, [facility], 167, cm, 08/20/21 12:32:00 EDT, Height [...] Care Nurse Name: Jena Barron RN Position: [facility] RN Member Role: Primary Care Nurse Name: Faith Cheek RN Position: [facility] RN Member Role: Primary Care Nurse Name: Rodney He RN Position: [facility] RN Member Role: Primary Care Nurse Name: Ana Maria Gonzalez RN Position: [facility] RN Member Role: Primary Care Nurse Name: Rae Vigil RN Position: [facility] RN Member Role: Primary Care Nurse Name: Johan Montes RN Position: [facility] RN Member Role: Primary Care Nurse Name: Tony Rhodes MD Position: [facility] Primary Care Physician Member Role: PCP Address: Address: [address] [place] [id number] Name: Milad Rodríguez Position: [facility] RN Member Role: Primary Care Nurse Name: Rachel Brown RN Position: [facility] RN Member Role: Primary Care Nurse Name: Lucia Denton RN Position: [facility] RN Member Role: Primary Care Nurse Name: Chelita Hernandez RN Position: [facility] RN Member Role: Primary Care Nurse Name: Donald Purcell RN Position: [facility] RN Member Role: Primary Care Nurse Name: Shameka Hicks RN Position: [facility] RN Member Role: Primary Care Nurse Name: Lynette Wooten RN Position: [facility] RN Member Role: Primary Care Nurse Name: Batsheva Herring RN Position: [facility] AMB Nurse Member Role: Primary Care Nurse Name: Barbara Post RN Position: [facility] RN Member Role: Primary Care Nurse Name: Roxana Hutchison RN Position: [facility] RN Member Role: Primary Care Nurse Name: David Mensah RN Position: [facility] RN Member Role: Primary Care Nurse Name: Mary Mckeon RN Position: [facility] AMB Nurse Member Role: Primary Care Nurse Care Team Related Persons Name: FANY CYR Address: home [address] [place] [address] Name: KLARISSA KITTY Address: [place] [address]
--- OUTSIDE RECORDS SUMMARY | 2023-04-27 13:37 | XMS_ITS | Continuity of Care Document ---
Author Name Unknown Organization [facility] Address [address] [place] [id number]- Care Team Providers Care Deaf Interpreter Name Role Phone Tony Rhodes MD Primary Care Physician [facility] Date[facility]): 06[facility]/22 - 06/28/[address] [address]- Discharge Disposition: A-D/C Walkout Attending Physician: Not on Staff, Attending MD Admitting Physician: Not on Staff, Admitting MD Referring Physician: Not on Staff, Referring [...] Pneumococcal Vacc (oldterm) 05/12/99 Given 1Location History: [facility] 2Admin Note: VIS GIVEN 3Location History: [facility] 4Admin Note: GIVEN BY ANDIE BOWERS BY JUDAH 5Admin Note: GIVEN IN [facility] 6Admin Note: [facility] 7Admin Note: H1N1 Medications acetaminophen 325 mg [...] 5 Refills, Maintenance, 07/29/19 13:25:00 EDT, Powder, [facility], 167, cm, 04/30/19 15:55:00 EST, Height, 70.2, kg, 07/31/18 6:33:00EDT, Dry Weight Start Date: 07/29/19 Status: Ordered amiodarone 200 mg oral tablet 2, tablet, By Mouth, 2 times a day, # 120 tablet, Refills 6, Maintenance, 02/18/22 9:48:00 EDT, Route to Pharmacy Electronically, [facility], 172.7, cm, 01/18/22 14:53:00 EDT, Height, [...] 06/24/22 16:00:00 EST, Route to Pharmacy Electronically, [facility], Partial fill upon patient request if [...] 0 Refills, Maintenance, 02/25/22 12:41:00 EDT, Tablet, [facility], 168, cm, 02/25/22 12:11:00 EDT, Height, 57.7, kg, 02/22/22 23:09:00 EDT,Dry Weight Start Date: 02/25/22 Stop Date: 03/27/22 Status: Ordered folic acid 1 mg oral tablet 1 mg, 1, tablet, By Mouth, Daily, # 30 tablet, Refills 0, Tot. Refills 0, Maintenance, 02/25/22 12:41:00 EDT, Route to Pharmacy Electronically, [facility], Partial fill upon patient request if [...] tablet, 2 Refills, Maintenance, 02/18/22 9:48:00 EDT, [facility], 172.7, cm, 01/18/22 14:53:00 EDT, Height, [...] 25 tablet, 0 Refills, 10/18/20 16:42:00 EDT, [facility], 167, cm, 08/21/20 14:59:00 EDT, Height [...] 06/24/22 16:01:00 EST, Route to Pharmacy Electronically, [facility], Partial fill upon patient... Start Date: 06/24/22 Status: Ordered pentoxifylline 400 mg oral tablet, extended release 1, tablet, By Mouth, 3 times a day, # 90 tablet, Refills 11, Route to Pharmacy Electronically, [facility], 167, cm, 08/20/21 12:32:00 EDT, Height [...] Care Nurse Name: Tony Rhodes MD Position: [facility] Primary Care Physician Member Role: PCP Address: Address: [address] [place] [id number]- Name: Rachel Brown RN Position: [facility] RN Member Role: Primary Care Nurse Name: Lucia Denton RN Position: [facility] RN Member Role: Primary Care Nurse Name: Chelita Hernandez RN Position: [facility] RN Member Role: Primary Care Nurse Name: Elizabeth Taylor Position: [facility] RN Member Role: Primary Care Nurse Name: Batsheva Herring RN Position: [facility] AMB Nurse Member Role: Primary Care Nurse Name: Roxana Hutchison RN Position: [facility] RN Member Role: Primary Care Nurse Name: Mary Mckeon RN Position: [facility] AMB Nurse Member Role: Primary Care Nurse Care Team Related Persons Name: FANY CYR Address: home [address] [place] [address] Name: KITTY CYR Address: [place] [address]
--- OUTSIDE RECORDS SUMMARY | 2023-04-27 13:37 | XMS_ITS | Continuity of Care Document ---
Author Name Unknown Organization [facility] Address [address] [place] [address]- Care Team Providers Care Tabber Name Role Phone Tony Rhodes MD Primary Care Physician [phone] [facility]28[facility]22 - 12/28/22 [facility] [address] [place] [address]- Allergies, Adverse Reactions, Alerts Substance Reaction Severity Status Vioxx Hypertension Mild Active Immunizations Given and Recorded Vaccine Date Status Refusal Reason [id number] bivalent booster vax 03/11/22 Recorded influenza virus [...] (oldterm) 05/12/99 Given 1Location History: [facility] 2Admin Note: VIS GIVEN 3Location History: [facility] 4Admin Note: GIVEN BY JOHAN BOWERS BY JUDAH 5Admin Note: GIVEN IN [facility] 6Admin Note: [employer] [facility] 7Admin Note: H1N1 Medications acetaminophen [...] Team Personnel Name: Morena Abraham RN Position: [facility] SN RN Member Role: Primary Care Nurse Name: Jena Barron RN Position: [facility] RN Member Role: Primary Care Nurse Name: Faith Cheek RN Position: [facility] RN Member Role: Primary Care Nurse Name: Rodney He RN Position: [facility] RN Member Role: Primary Care Nurse Name: Barbara Snider RN Position: [facility] SN RN Member Role: Primary Care Nurse Name: Ana Maria Gonzalez RN Position: [facility] RN Member Role: Primary Care Nurse Name: Rae Vigil RN Position: [facility] RN Member Role: Primary Care Nurse Name: Johan Montes RN Position: [facility] RN Member Role: Primary Care Nurse Name: Tony Rhodes MD Position: [facility] Physician - Primary Care Member Role: PCP Address: Address: [address] [place] [id number] Name: Rachel Brown RN Position: [facility] RN Member Role: Primary Care Nurse Name: Lucia Denton RN Position: [facility] RN Member Role: Primary Care Nurse Name: Quin Oliveira RN Position: [facility] RN Member Role: Primary Care Nurse Name: Chelita Hernandez RN Position: [facility] RN Member Role: Primary Care Nurse Name: Lynette Leon RN Position: [facility] RN Member Role: Primary Care Nurse Name: Donald Purcell RN Position: [facility] RN Member Role: Primary Care Nurse Name: Shameka Hicks RN Position: [facility] RN Member Role: Primary Care Nurse Name: Lynette Wooten RN Position: [facility] RN Member Role: Primary Care Nurse Name: Batsheva Herring RN Position: [facility] OB RN Member Role: Primary Care Nurse Name: Roxana Hutchison RN Position: [facility] AMB Nurse Member Role: Primary Care Nurse Name: David Mensah RN Position: [facility] RN Member Role: Primary Care Nurse Name: Mary Mckeon RN Position: [facility] AMB Nurse Member Role: Primary Care Nurse Care Team Related Persons Name: FANY CYR Address: [address] [address] Name: KITTY CYR
--- OUTSIDE RECORDS SUMMARY | 2023-04-27 13:37 | XMS_ITS | Continuity of Care Document ---
Author Name Unknown Organization [facility] ter Address [address] [place] [id number]- Care Team Providers Care Urgent Care Physician Name Role Phone Meagan DILL, Tony Gaines Primary Care Physician Encounter [facility] Date(s): 06/28/22 - 07/09/[address] [address]- Encounter Diagnosis Sacral decubitus ulcer(Final) - 06/28/22 Sacral decubitus ulcer(Final) - 06/29/22 Discharge Disposition: A-D/C Home Attending Physician: Tita Love MD Admitting Physician: Izzy Guerrero MD Referring Physician: Not on Staff, Referring [...] Pneumococcal Vacc (oldterm) 05/12/99 Given 1Location History: [facility] 2Admin Note: VIS GIVEN 3Location History: [facility] 4Admin Note: GIVEN BY JOHAN BOWERS BY JUDAH 5Admin Note: GIVEN IN [facility]INIC [facility] 6Admin Note: t3n Mag[facility] 7Admin Note: H1N1 Medications acetaminophen 325 [...] 5 Refills, Maintenance, 07/29/19 13:25:00 EDT, Powder, [facility], 167, cm, 04/30/19 15:55:00 EST, Height, [...] 3 Refills, Soft Stop, 09/05/21 15:18:00 EDT, [facility], 167, cm, 08/20/21 12:32:00 EDT, Height Start Date: 09/05/21 Status: Ordered Colace sodium 100 mg oral capsule 100 mg, 1, capsule, By Mouth, 2 times a day, # 60 capsule, Refills 0, Tot. Refills 0, Maintenance, 06/24/22 16:00:00 EST, Route to Pharmacy Electronically, [facility], Partial fill upon patient request if the prescription is for a schedule II opi... Start Date: 06/24/22 Status: Ordered collagenase topical 250 u/gm ointment 1 application, Topically, Daily, apply moist dressing over the santyl, triad cream on surrouding skin and DSD over all, # 90 Gm, 0 Refills, Maintenance, 07/08/22 13:04:00 EST, Ointment, [facility], Partial fill upon patient request if th... Start Date: 07/08/22 Status: Ordered Dilaudid Inj 1 mg, Injection, IV Push Slowly, Every 4 hours, PRN for Pain , Severe, [place], 07/01/22 14:22:00 EST Start Date: 07/01/22 Stop Date: 07/15/22 Status: Ordered Eliquis 5 mg oral tablet 1 tablet = 5 mg, By Mouth, 2 times a day, # 60 tablet, 0 Refills, Maintenance, 02/25/22 12:41:00 EDT, Tablet, [facility], 168, cm, 02/25/22 12:11:00 EDT, Height, 57.7, kg, 02/22/22 23:09:00 EDT,Dry Weight Start Date: 02/25/22 Stop Date: 03/27/22 Status: Ordered Keppra 500 mg oral tablet 1 tablet = 500 mg, By Mouth, 2 times a day, # 60 tablet, 6 Refills, Maintenance, 03/01/21 14:03:00 EDT, Tablet, [facility], Partial fill upon patient request if the prescription is for a schedule II opioid drug., 167, cm, 03/01/21 13:34:00 EDT, H... Start Date: 03/01/21 Status: Ordered levoFLOXacin 750 mg oral tablet 1 tablet = 750 mg, By Mouth, Every 48 hours, for 7 days, # 4 tablet, 0 Refills, Acute 07/15/22 9:15:00 EST, 07/08/22 9:15:00 EST, Tablet, [facility], Partial fill upon patient request [...] tablet, 2 Refills, Maintenance, 02/18/22 9:48:00 EDT, [facility], 172.7, cm, 01/18/22 14:53:00 EDT, Height, 68.2, kg, 09/21/21 17:43:00 EDT, Dry Weight Start Date: 02/18/22 Status: Ordered MiraLax oral powder for reconstitution = 17 Gm, By Mouth, Daily, dissolve in water before taking, # 255 Gm, 0 Refills, Maintenance, 07/08/22 9:59:00 EST, REC Powder, [facility], Partial fill upon patient request [...] 07/08/22 9:58:00 EST, Route to Pharmacy Electronically, [facility], Partial fill upon... Start Date: 07/08/22 Status: Ordered oxyCODONE 5 mg oral tablet 5 mg, Tablet, By Mouth, Every 4 hours, PRN for Pain , Moderate, Routine, 07/06/22 13:52:00 EST Start Date: 07/06/22 Stop Date: 07/13/22 Status: Ordered pentoxifylline 400 mg oral tablet, extended release 1, tablet, By Mouth, 3 times a day, # 90 tablet, Refills 11, Route to Pharmacy Electronically, [facility], 167, cm, 08/20/21 12:32:00 EDT, Height Start Date: 09/05/21 Status: Ordered sulfamethoxazole-trimethoprim 800 mg-160 mg oral tablet 1 tablet, By Mouth, 2 times a day, for 7 days, # 14 tablet, 0 Refills, Acute 07/15/22 9:14:00 EST, 07/08/22 9:14:00 EST, Tablet, [facility], Partial fill upon patient request if the prescription is for a schedule II opioid drug., 1 table... Start Date: 07/08/22 Stop Date: 07/15/22 Status: Ordered Vitamin D3 10,000 intl units oral capsule 1 capsule = 250 mcg, By Mouth, Every week, # 6 capsule, 0 Refills, Maintenance, 12/19/21 12:19:00 EDT, Capsule, [facility], Partial fill upon patient request if [...] 2LUE 3post cabg afib, s/p cva 4LUE Procedures Procedure Date Related Diagnosis Body Site Status Debridement, muscle and/or f ascia (includes epidermis, dermis, and subcutaneous tissue, if performed); first 20 sq cm or less Completed Results Orders for Microbiology Reports Name Date Urine Culture 07/07/22 Wound Superficial Culture W/ Gram Smear (Culture Wound Superficial w/ Gram Smear) 06/28/22 Blood Culture 06/28/22 Blood Culture #2 06/28/22 Microbiology Reports TEST:Urine Culture STATUS:Auth (Verified) BODY SITE: SOURCE:URINE COLLECTED DATE/TIME:07/07/22 4:30 PM Urine Culture SPECIMEN DESCRIPTION : URINE CLEAN CATCH/MIDSTREAM SPECIAL REQUESTS : NONE CULTURE : NO GROWTH REPORT STATUS : FINAL 07/08/2022 TEST:Superficial Wound Culture STATUS:Auth (Verified) BODY SITE: SOURCE:ULCER1 COLLECTED DATE/TIME:06/28/22 10:28 PM Superficial Wound Culture SPECIMEN DESCRIPTION : ULCER SACRUM SPECIAL REQUESTS : NONE GRAM STAIN : 4+ POLYMORPHONUCLEAR LEUKOCYTES 4+ GRAM NEGATIVE RODS 2+ GRAM POSITIVE RODS 2+ GRAM POSITIVE COCCI CULTURE : No significant microorganisms isolated. Please consult the laboratory ([phone]) within 7 days if more definitive studies are clinically indicated. REPORT STATUS : FINAL 07/01/2022 TEST:Blood Culture, Second Order STATUS:Auth (Verified) BODY SITE: SOURCE:Blood COLLECTED DATE/TIME:06/28/22 12:55 PM Blood Culture, Second Order SPECIMEN DESCRIPTION : BLOOD LA SPECIAL REQUESTS : NONE CULTURE : NO GROWTH 5 DAYS. REPORT STATUS : FINAL 07/03/2022 TEST:Blood Culture STATUS:Auth (Verified) BODY SITE: SOURCE:Blood COLLECTED DATE/TIME:06/28/22 12:40 PM Blood Culture SPECIMEN DESCRIPTION : BLOOD RFOREARM SPECIAL REQUESTS : NONE CULTURE : NO GROWTH 5 DAYS. REPORT STATUS : FINAL 07/03/2022 Radiology Reports * Exam Date Time Procedure Performing Provider Status 06/28/22 2:[address] Angio Abdomen Aor ta Bilat IlioFem Jazmine Hutchinson; Auth (Verified) Notes: (CT Angio Abdomen Aorta Bilat IlioFem) Reason For Exam: Other: RESULT: CT Angio Abdomen Aorta Bilat IlioFem PROCEDURE: CT Angio Abdomen Aorta Bilat IlioFem INDICATION: Hx of Present Illness: buttocks wound; Reason: Other:; Clinical Question(s): Abscess; osteomyelitis; Order Comment: RELEVANT CLINICAL INFORMATION/CLINICAL QUESTION: Abscess TECHNIQUE: CT angiography of the abdomen and lower extremities was performed using contiguous helical images from the diaphragm to the feet. 120 cc of Omnipaque 300 was administered intravenously. One mm axial images were reconstructed. Sagittal and coronal reformatted images were rendered. High resolution multiplanar, volume rendered and MIP images were created and used to evaluate the abdominal aorta and lower extremity arteries in multiple projections on an independent workstation, with permanent images saved to PACS. Automatic tube current modulation was used to optimize exposure parameters. RADIATION DOSE PARAMETERS: COMPARISON: 06/26/2022 FINDINGS: The abdominal aorta is nonaneurysmal. There is severe atherosclerosis of the infrarenal abdominal aorta with previous lower aorta and right iliac bypass and ALLEN graft. The right iliac component of the bypass is patent. There is a femorofemoral bypass which is completely nonopacified, occluded. A axillofemoral bypass graft is also present and is occluded very visualized. The celiac artery is with severe atherosclerosis at its origin and proximal extent. The vessel is with also severe atherosclerosis of the splenic artery branch. There is otherwise patency. The superior mesenteric artery is the superior mesenteric artery is patent. There is severe atherosclerosis at the origin of the superior mesenteric artery which is nearly occluded at series 401 image 31 with distal patency. Moderate to severe multifocal plaque in the mid to distal superior mesenteric artery. The inferior mesenteric artery is patent. The right renal artery is patent with severe multifocal atherosclerosis. The left renal artery is patent with severe multifocal atherosclerosis. 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 The common femoral artery is patent The superficial femoral artery is patent with graft The deep femoral artery is chronically occluded The popliteal artery is patent with flow from the femoral graft. There is severe atherosclerosis. The anterior tibial artery is with severe atherosclerosis and diminutive. This is not seen beyond the mid leg. This is not patent at the ankle. The posterior tibial artery is with severe atherosclerosis but with patency to the level of the ankle. The peroneal artery is with severe atherosclerosis but patency at the level of the ankle Left side: The common iliac artery is chronically occluded The external iliac artery is chronically occluded The internal iliac artery is chronically occluded The common femoral artery is chronically occluded The superficial femoral artery is occluded The deep femoral artery is occluded There is an above knee amputation. Collateral vessels are seen at the level of the thigh from gluteal collaterals, example seen extending from series 401 image 131 to 154. OTHER FINDINGS: Lung bases are not included. No acute abnormality of the liver, spleen, adrenal glands, or kidneys. There is no hydronephrosis. No peripancreatic stranding or free fluid. There is nondistention of the gallbladder which contains prior contrast material/sludge. The spleen is nonenlarged. The bowel loops are with no dilatation or evidence for obstruction. There is moderate colonic stoolburden. The urinary bladder is distended. Osseous findings include scoliotic curvature of the lumbar spine which is levoconvex with severe degenerative changes from L3 to S1. There are degenerative changes at the hip joints. There is mild cortical thinning with periosteal reaction seen asymmetrically at the left posterior ischium. Skin changes are seen at the level of the sacrum, particularly the right sacrum where thereis also focal mild asymmetric cortical thinning at series 401 image 104. There is small volume of fluid adjacent to the posterior left ischium series 401 image 129. A separate wound is also present at the posterior right upper thigh, extending to the intramusculararea with an area of skin defect of series 401 image 138. There is partially loculated appearance of fluid and irregular vessels in this area, example series 401 image 137. The fluid measures up to 4.0 x 3.1 cm it series 401 image 137. This is extending to the posterior inferior aspect of the rightissue which is with mildly irregular cortex. Skin changes are also present at the left heel, known area of ulcer. There is some periosteal reaction of the calcaneus at this level, series 401 image 372, for example. There were previously seen areas of peripherally enhancing fluid at the level of the mid to lower thighs, intramuscularly, which are less apparent. Mild areas of edema persists, particularly on the left at the level of the amputation, for example in the thigh muscles at series 401 image 173. There are findings supportive of avascular necrosis of the femoral heads. IMPRESSION: Right femoral to above-knee popliteal bypass is patent. Portion of the included left-sided axillofemoral bypass graft is occluded. Occluded femoral-femoral bypass graft. Chronic occlusion of vessels, as detailed above including of the iliac vessels bilaterally and the vessels in the left leg above the left above-knee amputation. There is 2 vessel patency to the right lower leg. The anterior tibial artery is occluded beyond itsproximal segment. Severe atherosclerosis but patency of the popliteal artery, posterior tibial artery, and peroneal artery. There is also severe visceral vascular atherosclerosis, with patency, of branch vessels of the upper abdomen. Findings which can be seen with early osteomyelitis at the posterior left ischium and right lower posterior ischium, which includes periosteal reaction, mild cortical thinning, and small volume of adjacent fluid at the posterior tuberosity on the left and fluid at the posterior upper right high wound (skin defect) on the right which is likely draining to the skin surface and measures up to 4.0 cm. There is also mild thinning at the right posterior sacral cortex which can represent additional area of osteomyelitis with overlying skin changes including diffuse edema, subcutaneous fluid (separatefrom that at the posterior right ishium to upper posterior right thigh), and subcutaneous air. Wound with also mild periosteal reaction at the site of known ulcer at the level of the posterior right calcaneus. Recommend direct examination of these sites for wound -- and if open wound and needed then clinically probing. MRI can also be considered to evaluate extent of osseous involvement, if clinically warranted/appropriate. Urinary bladder is distended. Patient may need to void. 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 There are changes of possible myositis at the left lower thigh -- from the CT of 04/30 these appear decreased but persist with loss of fat planes between muscles at the level of the mid to lower left thigh. WSN: [id number] Ordering Physician: Dorota Comer Dictated By: Marce Cleveland MD Dictated Date/Time: 06/28/22 3:23 pm Reviewed By: Marce Cleveland MD Signed By: Marce Cleveland MD Signed Date/Time: 06/28/22 3:23 pm Transcribed By: ROBERTO Transcribed Date/Time: 06/28/22 3:14 pm Vital Signs Most recent to oldest [Reference Range]: 1 2 3 Oxygen Saturation [94-100 %] 96 % (07/09/22 5:00 AM) 90 % *L* (07/09/22 4:58 AM) 95 % (07/08/22 7:41 PM) Pulse Rate [55-90 bpm] 58 bpm (07/09/22 4:58 AM) 89 bpm (07/08/22 7:41 PM) 86 bpm (07/08/22 3:00 PM) Blood Pressure [90-138/55-84 mm Hg] 110/69mm Hg (07/09/22 4:58 AM) 91/69mm Hg (07/08/22 7:41 PM) 109/58mm Hg (07/08/22 3:00 PM) Respiratory Rate [16-30 br/min] 18 br/min (07/09/22 2:55 PM) 20 br/min (07/09/22 10:42 AM) 20 br/min (07/09/22 6:59 AM) Temperature [96.8-100.4 DegF] 98.3 DegF (07/09/22 4:58 AM) 99.3 DegF (07/08/22 7:41 PM) 97.8 DegF (07/08/22 2:08 PM) Liters per Minute 6 L/min (07/05/22 11:00 AM) 2 L/min (07/05/22 10:00 AM) 6 L/min (07/01/22 8:30 AM) Mode of Delivery (Oxygen) Room air (07/09/22 5:00 AM) Room air (07/09/22 4:58 AM) Room air (07/08/22 7:41 PM) Blood pressure sites Arm, right (07/08/22 7:41 PM) Arm, right (07/08/22 3:00 PM) Arm, right (07/08/22 2:08 PM) Temperature Route Oral (07/09/22 4:58 AM) Oral (07/08/22 7:41 PM) Oral (07/08/22 2:08 PM) Social History Social History Type Response Smoking Status Current every day sm oker; Other: 1-1/2 packs of cigarettes daily; entered on: 10/23/17 Sex History and physical note * Roseann DILL, Michael S: PERFORM, MODIFY Event Display: History and Physical Hospital Authored Date: [id number] Patient: ??PHAN CYR ? Age:??67 Years?Sex:??Male?:??1955?? Chief Complaint sacral ulcer, unstageable History of Present Illness Phan Cyr is a 67 year old male who is well known to vascular services presents to [facility] with purulent wound drainage. Past medical history significant for CAD s/p CABG, Afib on eliquis, seizure disorder, HTN, PAD s/p L AKA (04/13/2022). Patient has an extensive vascular history.?? 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 Guzman. March 2022.?? Per the medical record last echo was done in December 17, 2021 demonstrated mildly reduced left ventricular systolic function butno ejection fraction was reported.?? A stress dobutamine cardiac perfusion test was also done in August 2013 demonstrating no EKG changes.?? Patient presents today with what he says is 1 month of dried skin in his back. Pt reports laying down on his back about 9 to 10 hours for sleep but otherwise is up and mobile, he reports the current pain is 6 out of 10.?? Patient reports no pus, or bleeding from the site.?? Patient also reports no signs of fevers chills nausea vomiting.?? Patient denies anyshortness of breath, chest pain, or dysuria.?? As per social history patient reports smoking 1 packof cigarettes a day.?? Patient is a poor historian overall, denies knowing of any family history.??Patient is also unaware of the drugs he takes on a daily basis and, claiming that his usually takes care of that. Review of Systems Constitutional:??No weight loss, fever, chills, weakness or fatigue. Respiratory: No SOB, cough, or dyspnea Cardiovascular: No chest pain, flutters or palpitations?? Gastrointestinal:??No N/V or??constipation, no diarrhea, no rectal bleeding Genitourinary:??No frequency or burning with urination. Neurologic:??No YEBOAH, dizziness, syncope,??no changes in motor or sensory function.??No change in bowel or bladder control. Skin:??No rashes, bruises??or itching. Endocrine:??No heat or cold intolerance. Psychiatric:??No depression or anxiety. Physical Exam Vitals & Measurements T:??97.4?F ?? DE:??68?? RR:??18?? BP:??115/61?? SpO2:??95%?? Constitutional: Well appearing, no acute distress, AOx3 HEENT: Normocephalic, atraumatic, PERRL,??moist mucous membranes. Respiratory: Normal WOB, CTA b/l. No wheezing, rales or rhonchi. Cardiovascular: Audible S1 S2 regular. No m/r/g Abdominal: soft, compressible, ND, NT Neurologic:?? Motor and sensation grossly intact b/l. Extremities: No wounds, bruises or injuries. No gross deformities. ROM normal Skin: No rashes or lesions. No petechiae or purpura.??Wound in the sacrum measuring 8X8 cm with ulcer and brown exudate with aroma and surrounding erythema Assessment/Plan This is a 67-year-old with extensive vascular history including multiple revascularization procedures, and a left AKA.?? Patient presents today with a sacral wound that measures about 8 x 8 cm in size with a deep ulcer.?? In the ED patient had a mild leukocytosis at 13.7, otherwise all other labs were within normal limit.?? Patient had normal vitals with temp at 97.4, pulse at 68 and bp at 106/66. Pt was found to be cachectic in nature on physical exam but other damian breathing with no oxygen support. Last echo reveals moderate reduction of ejection fraction. At this point the pt is in need ofa sacral decubitus debridement in the operating room ?? Plan Labs including CBC, BMP, INR, PT, PTT, EKG blood cultures We will follow up coag panel to determine if reversal is necessary Start antibiotics with??Vanc??and Zosyn Wound culture admit to medicine for medical optimization of comorbidities NPO at midnight for debridement tomorrow ?? this plan was discussed with Dr Londono Page [phone] with any questions ? Problem List/Past Medical History Ongoing Adenomatous polyposis [...] Seizure disorder Vitamin D deficiency Wrist pain Historical Bacterial skin infection past Alcohol abuse, 10-12 beers daily past Cocaine abuse Underweight Procedure/Surgical History Left common femoral to left axillary bypass graft using 8-mm ring Propaten Shepherd- Anthony graft.: 04/26/17 Coronary bypass grafting x2 with LEE to [...] Inhalation, Every 4 hours, PRN (as needed) amiODARONE: 2 tablet, By Mouth, 2 times a day Amoxicillin-Clavulanate: 1 tablet, By Mouth, Every 12 hours apixaban: 5 mg = 1 tablet, By Mouth, 2 times a day Aspirin: 81 mg = 1 tablet, By Mouth, Daily Atorvastatin: See Instructions, TAKE 1 TABLET BY MOUTH DAILY Bisacodyl: 10 mg = 1 supp, Rectally, Daily, PRN (Constipation) Cholecalciferol: 250 mcg = 1 capsule, By Mouth, Every week Clonidine: 1 tablet, By Mouth, 2 times a day Docusate: 100 mg = 1 capsule, By Mouth, 2 times a day Docusate: 100 mg = 1 capsule, By Mouth, 2 times a day Durable Medical Equipment: See Instructions, to use every 6hrs prn copd exacerbation Durable Medical Equipment (plain 1/4 inch nugage): See Instructions, use as directed Folic Acid: 1 mg = 1 tablet, By Mouth, Daily Gabapentin: 300 mg = 1 capsule, By Mouth, 3 times a day levETIRAcetam: 500 mg = 1 tablet, By Mouth, 2 times a day Lidocaine Topical: Topically, Daily Melatonin: 9 mg, By Mouth, Daily at bedtime Metoprolol: 1 tablet, By Mouth, Daily Miscellaneous Rx (Complete blood count with differential and Basic metabolic panel in 1 week from 12/19/2021): See Instructions, Complete blood count with differential and Basic metabolic panel in 1 week from 12/19/2021 Miscellaneous Rx (aquacel Ag): See Instructions, use as directed Multivitamin: 1 tablet, By Mouth, Daily Multivitamin With Minerals: 1 tablet, By Mouth, Daily Nitroglycerin: See Instructions, TAKE 1 TABLET UNDER THE TONGUE EVERY 5 MINUTES NEEDED FOR CHESTPAIN AFTER 3 DOSES, CALL 911 Omeprazole: 20 mg = 1 tablet, By Mouth, Daily in AM Oxycodone: 5 mg = 1 tablet, By Mouth, 3 times a day, PRN (as needed for pain), mass pat reviewedtake colace Pentoxifylline: 1 tablet, By Mouth, 3 times a day Remove Patch: 1 each, Topically, Daily Senna: 8.6 mg = 1 tablet, By Mouth, Daily Thiamine: 100 mg = 1 tablet, By Mouth, Daily Allergies Vioxx??(Hypertension) Social History Alcohol Use: Past., 04/05/2016 Employment/School Status: Disabled., 04/05/2016 Exercise Self assessment: Poor condition., 04/05/2016 Home/Environment Living situation: Home/Independent. Lives with: Spouse., 04/05/2016 Nutrition/Health Diet: Regular., 04/05/2016 Substance Abuse Use: Never., 04/05/2016 Tobacco Current every day smoker, Other: 1-1/2 packs of cigarettes daily., 10/23/2017 Family History Mother (): Bone cancer; Hyperlipidemia Father (): CAD - Coronary artery disease; Hyperlipidemia Brother: Alcoholism; CAD - Coronary artery disease; Hepatitis C; Hyperlipidemia Brother: Hyperlipidemia Other: Hyperlipidemia Lab Results Labs Last 24 Hours BLOOD COUNT & DIFF ? Event Name?? Event Result?? Date/Time?? WBC 13.7 k/mm3??High 06/28/22 12:40:00 RBC 4.51 m/mm3??Low 06/28/22 12:40:00 Hgb 11.6 Gm/dL??Low 06/28/22 12:40:00 Hct 36.3 %??Low 06/28/22 12:40:00 MCV 80.5 femtoliters 06/28/22 12:40:00 MCH 25.7 pg??Low 06/28/22 12:40:00 MCHC 32 g/dL??Low 06/28/22 12:40:00 Platelet Count 214 k/mm3 06/28/22 12:40:00 MPV 9.8 femtoliters 06/28/22 12:40:00 Nucleated RBC (Automated) 0 #/100 WBC'S 06/28/22 12:40:00 ? CHEM GENERAL ? Event Name?? Event Result?? Date/Time?? Sodium 135 mmol/L 06/28/22 12:40:00 Chloride 97 mmol/L??Low 06/28/22 12:40:00 Bicarbonate Level 28 mmol/L 06/28/22 12:40:00 Anion Gap 10 06/28/22 12:40:00 Glucose Level 83 mg/dL 06/28/22 12:40:00 BUN 5 mg/dL??Low 06/28/22 12:40:00 Creatinine-Blood 0.8 mg/dL 06/28/22 12:40:00 ? * Bry DILL, Brigido: PERFORM Event Display: History and Physical Hospital Authored Date: I have seen and evaluated this patient on the above documented date. I have discussed the case and its management with the resident team and TYLER as documented in the progress note. ? Will schedule for OR for operative debridement. ? RA Admission evaluation note * Karthik DILL, Mayra Christianson: PERFORM Event Display: Admission Note Authored Date: Patient: ??PHAN CYR ? Age:??67 Years?Sex:??Male?:??1955?? Chief Complaint/Reason for Consultation Buttocks sore x2 weeks. Per home nurse, wound is oozing a greyish color. Left below the knee amputation. Took Oxycodone at home but is not prescibed. History of drug abuse. History of Present Illness Mr. Cyr is a??67 year old gentleman with a PMH of CAD s/p CABG, A-fib, opiate use disorder, epilepsy, HTN, PAD s/p left AKA (04/13/2022) with extensive vascular history who presents for management of purulent decubitus wound drainage. ?? He has a home nurse who states that his sacral wound and wounds to the left medial thigh had purulent malodorous discharge hence she called EMS out of concern for infection.?? He was recently seen [facility] on 06/14/2022 for tissue breakdown with purulent drainage was noted in his left stump. He states this wound has been there for at least a month and has been getting worse. He denies fevers, chills, nausea/vomiting, dyspnea, chest pain, abdominal pain, dysuria, diarrhea.?? He smokes 1 pack of cigarettes a day and is unaware of any family history.?? His manages his medications. Attempted to call patient's at [phone] to complete med rec however no response. ?? On arrival to the ER he was hemodynamically stable.?? Labs showed WBC 13.7, Hb 11.6, INR 1.2, K3.4, creatinine 0.8, lactate 1.5.?? CTA abdomen showed chronic femoral bypass graft occlusions and osteomyelitis of posterior left ischium and right lower posterior ischium with possible osteomyelitis in the right posterior sacral cortex.?? Vascular surgery was consulted for management of left AKA wound, indicating no acute vascular surgical intervention recommended ACS consult for additional and sacral osteomyelitis.?? Surgery was consulted for the sacral wound that measures about 8 x 8 cm in size with deep ulcer and plan for debridement tomorrow. Review of Systems All systems reviewed and negative except as indicated in HPI. Objective Vital Signs?? Temperature: 98.6 DegF (06/28/22 19:40:00) Temperature Route: Oral (06/28/22:40:00) Pulse Rate: 64 bpm (06/28/22 19:40:00) Respiratory Rate:??15 br/min??Low (06/28/22:40:00) Systolic Blood Pressure: 107 mm Hg (06/28/22 19:40:00) Diastolic Blood Pressure: 58 mm Hg (06/28/22:40:00) Blood pressure sites: Arm, right (06/28/22:40:00) Mean Arterial Pressure: 78 mm Hg (06/28/22:23:00) Pulse Pressure: 49 mm Hg (06/28/22:40:00) Oxygen Saturation: 94 % (06/28/22 19:40:00) Mode of Delivery (Oxygen): Room air (06/28/22 17:23:00) Early Warning Score: 3 (06/28/22 19:45:18) ? Intake/Output? No Data Available ? Physical Exam Constitutional: Alert, in no acute distress. Head EENT: Extraocular muscle movement intact.??Moist mucous membranes.?? Neck: Supple. No JVD. Respiratory: Clear to auscultation. No wheezing or crackles. No use of accessory muscles. Cardiovascular: S1S2 regular. No murmurs, rubs or gallops. Gastrointestinal: Abdomen soft, non-tender, non-distended. Normal bowel sounds. Genitourinary: No CVA tenderness. Extremities: Left AKA with wound. Sacral ulcer 8x8 cm. Neurologic: AAOx3, Speech normal. No focal neurological deficits. Skin: No rash. Psychiatric: Normal mood and affect Assessment/Plan 67 year old gentleman with a PMH of CAD s/p CABG, A-fib, opiate use disorder, epilepsy, HTN, PAD s/p left AKA (04/13/2022) with extensive vascular history who presents for management of purulent decubitus wound drainage. Admitted for management of sacral osteomyelitis.? #Ischial and sacral osteomyelitis Per CT imaging, with purulent sacral wound - surgery on board - plan for debridement tomorrow - NPO after midnight - holding home apixaban - f/u blood cultures, wound culture - continue vanc and zosyn ?? #Atrial fibrillation - stable, not in RVR - holding apixaban given surgery tomorrow ?? #CAD - continue aspirin, statin ?? #HTN - normotensive, not currently on antihypertensives ?? #PAD s/p left AKA - holding apixaban - ?? #Seizure disorder Previously on Keppra No refills since 2020 Unclear if still taking - attempted to reach to determine but no response, attempt again tomorrow ?? Code status: full DVT ppx:??SCDs Diet: NPO after midnight Dispo: floors ?? Total Visit Time: I personally spent a total of 80 minutes, including both bpyx-bg-dddd and qrw-uscx-lf-face time on the date of the encounter, addressing the above diagnoses. Activities performed in this time include chart review, obtaining / reviewing history, performing amedically necessary evaluation, documentation and counseling. ?? Mayra Angeles MD Histories Past Medical History/Problem List Active Problems??(33) Adenomatous polyposis coli Anemia Anxiety Arm weakness [...] axillary bypass graft using 8-mm ring Propaten Shepherd- Anthony graft.: 09/04/16 Coronary bypass grafting x2 [...] Hepatitis C; Hyperlipidemia Brother: Hyperlipidemia Other: Hyperlipidemia ? Medications Home Medications Acetaminophen (acetaminophen 325 mg oral tablet)?650?Milligram?By Mouth?Every 4 hours?as needed?Pain , Mild Albuterol (albuterol 90 mcg/inh inhalation powder)?2?puff(s)?Inhalation?Every 4 hours?as needed?as needed amiODARONE (amiodarone 200 mg oral tablet)?2?tablet?By Mouth?2 times a day Amoxicillin-Clavulanate (Augmentin 875 mg-125 mg oral tablet)?1?tab(s)?By Mouth?Every 12 hours?for 14?Days apixaban (Eliquis 5 mg oral tablet)?1?tab(s)?5?Milligram?By Mouth?2 times a day?for 30?Days Aspirin (aspirin 81 mg oral delayed release tablet)?1?tab(s)?81?Milligram?By Mouth?Daily Atorvastatin (atorvastatin 40 mg oral tablet)?See Instructions?TAKE 1 TABLET BY MOUTH DAILY Bisacodyl (bisacodyl 10 mg rectal suppository)?1?suppository(ies)?10?Milligram?Rectal ly?Daily?as needed?Constipation Cholecalciferol (Vitamin D3 10,000 intl units oral capsule)?1?capsule?250?Microgram?By Mouth?Every week?for 6?week(s) Clonidine (cloNIDine 0.1 mg oral tablet)?1?tablet?By Mouth?2 times a day Docusate (Docusate Sodium Capsule)?100?Milligram?1?capsule?By Mouth?2 times a day Docusate (Colace sodium 100 mg oral capsule)?100?Milligram?1?capsule?By Mouth?2 times a day Durable Medical Equipment (Nebulizer/Compressor)?See Instructions?to use every 6hrs prn copd exacerbation Durable Medical Equipment (plain 1/4 inch nugage)?See Instructions?use as directed Folic Acid (folic acid 1 mg oral tablet)?1?Milligram?1?tablet?By Mouth?Daily?for 30?Days Gabapentin (gabapentin 300 mg oral capsule)?300?Milligram?1?capsule?By Mouth?3 times a day levETIRAcetam (Keppra 500 mg oral tablet)?1?tab(s)?500?Milligram?By Mouth?2 timesa day Lidocaine Topical (lidocaine 5% topical film)?Topically?Daily Melatonin (melatonin 3 mg oral tablet)?9?Milligram?By Mouth?Daily at bedtime Metoprolol (Metoprolol Succinate ER 25 mg oral tablet, extended release)?1?tab(s)?By Mouth?Daily Miscellaneous Rx (Complete blood count with differential and Basic metabolic panel in 1 week from 12/19/2021)?See Instructions?Complete blood count with differential and Basic metabolic panel in1 week from 12/19/2021 Miscellaneous Rx ([employer])?See Instructions?use as directed Multivitamin (Vit B Complex/Vit C Capsule)?1?tab(s)?By Mouth?Daily Multivitamin With Minerals (Multivit Therapeutic/Minerals Tablet)?1?tab(s)?By Mouth?Daily Nitroglycerin (nitroglycerin 0.4 mg sublingual tablet)?See Instructions?TAKE 1 TABLET UNDER THE TONGUE EVERY 5 MINUTES NEEDED FOR CHEST PAIN AFTER 3 DOSES, CALL 911 Omeprazole (omeprazole 20 mg oral delayed release tablet)?1?tab(s)?20?Milligram?By Mouth?Daily in AM Oxycodone (oxyCODONE 5 mg oral tablet)?5?Milligram?1?tablet?By Mouth?3 times a day?as needed?mass pat reviewedtake colace?as needed for pain Pentoxifylline (pentoxifylline 400 mg oral tablet, extended release)?1?tablet?By Mouth?3 times a day Remove Patch (Remove ??Patch)?1?Each?Topically?Daily Senna (Senna 8.6 mg oral tablet)?8.6?Milligram?1?tab(s)?By Mouth?Daily Thiamine (thiamine 100 mg oral tablet)?100?Milligram?1?tablet?By Mouth?Daily ? Inpatient Medications Medications (12) Active SCHEDULED: (4) Insulin Lispro 100 units/mL Inj (3mL) (Insulin LISPRO Sliding Scale) ??2-10 units, Subcutaneous Injection, 3 times a day before meals NaCl 0.9% Flush 3ml (NaCL 0.9% Flush) ??3 mL, IV Push, Every 8 hours Piperacillin/Tazobactam 3.375 Gm Inj (Zosyn Extended IVPB) ??3.375 Gm, IVPB, Every 8 hours Vancomycin 500 mg Inj (Vancomycin IVPB) ??500 mg, IVPB, Every 24 hours CONTINUOUS: (1) Lactated Ringers (1000 mL) Cont IV 1,000 mL (LR 1,000 mL) ??1,000 mL, IV Infusion, 75 mL/hr PRN: (7) Acetaminophen 325 mg Tablet (Acetaminophen Tablet) ??650 mg, By Mouth, Every 4 hours Dextromethorphan-Guaifenesin 20 mg-200 mg/10 [...] mg, Chew, 3 times a day ? Results Recent Labs BLOOD COUNT & DIFF WBC 13.7 k/mm3 (High)?? 06/28/2022 12:40 RBC 4.51 m/mm3 (Low)?? 06/28/2022 12:40 Hgb 11.6 Gm/dL (Low)?? 06/28/2022 12:40 Hct 36.3 % (Low)?? 06/28/2022 12:40 MCV 80.5 femtoliters ()?? 06/28/2022 12:40 MCH 25.7 pg (Low)?? 06/28/2022 12:40 MCHC 32.0 g/dL (Low)?? 06/28/2022 12:40 Platelet Count 214 k/mm3 ()?? 06/28/2022 12:40 RDW-SD 53.9 femtoliters (High)?? 06/28/2022 12:40 MPV 9.8 femtoliters ()?? 06/28/2022 12:40 Nucleated RBC (Automated) 0.0 #/100 WBC'S ()?? 06/28/2022 12:40 Abs. NRBC 0.0 k/mm3 ()?? 06/28/2022 12:40 Abs. Neut 10.0 k/mm3 (High)?? 06/28/2022 12:40 Abs. Lymph 1.7 k/mm3 ()?? 06/28/2022 12:40 Abs. [place] 1.8 k/mm3 (High)?? 06/28/2022 12:40 Abs. Eo 0.1 k/mm3 ()?? 06/28/2022 12:40 Abs. Baso 0.1 k/mm3 ()?? 06/28/2022 12:40 Neut % 72.6 % ()?? 06/28/2022 12:40 Lymph % 12.7 % (Low)?? 06/28/2022 12:40 [place] % 13.3 % (High)?? 06/28/2022 12:40 Eos % 0.4 % ()?? 06/28/2022 12:40 Baso % 0.5 % ()?? 06/28/2022 12:40 RBC Morphology MODERATE ()?? 06/28/2022 12:40 Imm Gran 0.5 % ()?? 06/28/2022 12:40 Abs. Imm Gran 0.1 k/mm3 ()?? 06/28/2022 12:40 ?? CHEM GENERAL Sodium 135 mmol/L ()?? 06/28/2022 12:40 Potassium 3.4 mmol/L (Low)?? 06/28/2022 12:40 Chloride 97 mmol/L (Low)?? 06/28/2022 12:40 Bicarbonate Level 28 mmol/L ()?? 06/28/2022 12:40 Anion Gap 10 ()?? 06/28/2022 12:40 Glucose Level 83 mg/dL ()?? 06/28/2022 12:40 Glucose, POC 98 mg/dL ()?? 06/28/2022 17:41 BUN 5 mg/dL (Low)?? 06/28/2022 12:40 Creatinine-Blood 0.8 mg/dL ()?? 06/28/2022 12:40 Estimated GFR Creatinine 97 ML/MIN/1.73 M2 ()?? 06/28/2022 12:40 Calcium 8.3 mg/dL (Low)?? 06/28/2022 12:40 Albumin 3.0 Gm/dL (Low)?? 06/28/2022 17:42 Lactate 1.5 mmol/L ()?? 06/28/2022 12:40 ?? COAG INR 1.2 (High)?? 06/28/2022 17:42 Protime (PT) 12.4 seconds (High)?? 06/28/2022 17:42 APTT 35.3 seconds (High)?? 06/28/2022 17:42 ?? HEME OTHER Hold Blue Top SPECIMEN DISCARDED AFTER 4 HOURS. ()?? 06/28/2022 12:40 ?? IMMUNOLOGY GENERAL Prealbumin 5.8 mg/dL (Low)?? 06/28/2022 17:42 ?? MISC. CHEMISTRY Hold Green Top SPECIMEN DISCARDED AFTER 1 WEEK ()?? 06/28/2022 12:40 ?? VIROLOGY COVID-19 by RT-PCR NEGATIVE ()?? 06/28/2022 15:50 ? Blood Glucose Trend Glucose Level: 83 mg/dL (06/28/22 12:40:00) Glucose, POC: 98 mg/dL (06/28/22 17:41:00) ? CBC, CBC w/Diff?? CBC?? Differential?? WBC:??13.7 k/mm3??High (12:40) Abs. Neut:??10 k/mm3??High (12:40) RBC:??4.51 m/mm3??Low (12:40) Abs. Lymph: 1.7 k/mm3 (12:40) Hct:??36.3 %??Low (12:40) Abs. [place]:??1.8 k/mm3??High (12:40) RDW-SD:??53.9 femtoliters??High (12:40) Abs. Eo: 0.1 k/mm3 (12:40) Nucleated RBC (Automated): 0 #/100 WBC'S (12:40) Abs. Baso: 0.1 k/mm3 (12:40) Abs. NRBC: 0 k/mm3 (12:40) Neut %: 72.6 % (12:40) ?? Lymph %:??12.7 %??Low (12:40) ?? [place] %:??13.3 %??High (12:40) ?? Eos %: 0.4 % (12:40) ?? Baso %: 0.5 % (12:40) ?? RBC Morphology: MODERATE (12:40) ?? Imm Gran: 0.5 % (12:40) ?? Abs. Imm Gran: 0.1 k/mm3 (12:40) ? LFT Albumin:??3 Gm/dL??Low (17:42) Protime (PT):??12.4 seconds??High (17:42) ?? Urinalysis?? No qualifying data available. ?? Microbiology ?? COVID-19 (Novel Coronavirus), Rapid PCR?? Completed?? Source: Nasal Body Site: Nose Collected Dt/Tm: 06/28/2022 15:50 Last Updated Dt/Tm: 06/28/2022 16:54 Wound Superficial Culture W/ Gram Smear?? Collected?? Source: Ulcer Body Site: Sacrum Collected Dt/Tm: 06/28/2022 20:28 Last Updated Dt/Tm: 06/28/2022 20:28 ? Blood Gases?? No qualifying data available. ?? EKG study * Event Display: ECG 12-Lead Authored Date: Please click on pdf link to open report * Event Display: ECG 12-Lead Authored Date: Ventricular Rate: 68 BPM Atrial Rate: 68 BPM P-R Interval: 164 ms QRS Duration: 108 ms Q-T Interval: 524 ms QTC Calculation(Bazett): 557 ms P Timblin: 85 degrees R Timblin: 91 degrees T Timblin: 90 degrees Critical Test Result: Long QTc Normal sinus rhythm Rightward axis Anteroseptal infarct with persistent ST elevation septal leads Minimal voltage criteria for LVH, may be normal variant ( Vlad product ) Nonspecific ST abnormality Prolonged QT Abnormal ECG When compared with ECG of 12-APR-2022 06:19, QT has lengthened Confirmed by ROXANA ROMEO ([id number]) on 07/04/2022 10:41:28 AM [place]: ROXANA ROMEO [facility] Progress note * Faith Cheek RN: VERIFY, PERFORM, SIGN Event Display: Progress Note [facility] Authored Date: [id number] Patient: PHAN CYR Age: 67 years Sex: Male : 1955 Associated Diagnoses: None Author: Faith Cheek RN Findings Problem Related to Alteration in Integumentary : Alteration in Integumentary/new 07/09/2022 20:00 EST Alteration in Integumentary Related to Other: wounds, infection Goals & Outcomes, Integumentary Nutritional intake is adequate for metabolic needs, Pt will maintain adequate fluid & nutritional balance, Wound will progress towards healing Interventions, Integumentary Resolved problem, Interventions no longer in effect BH Goals/Interventions, Integumentary Yes Integumentary, Problem Start 06/29/2022 16:27 Reviewed plan with, Integumentary Patient Patient Progression, Integumentary Resolved problem Integumentary, Problem Resolved 07/09/2022 16:00 . Evaluation Pt alert, oriented x 4, c/o pain 10/10 on pain scale, prn IV Dilaudid and prn Oxycodone given per pt request. Pt does not present with any distress, wound vac delivered last evening, ACS paged to connect new vac, provider instructed this nurse to do so. Pt discharged home with services, IV access removed, cath tip intact. D/c instructions reviewed with pt, questions encouraged and answered, pt verbalizes understanding. D/c meds p/u from [facility] and handed to concession attendant, pt aware. Ptleft unit via stretcher accompanied by two ambulance attendants, report given. All wound vac equip sent along with pt. . Discharge Information Case Management Discharge Plan : Case Management Discharge Plan Data 07/09/2022 20:27 EST Discharge Level of Care at Discharge Homehealth/VNA Discharge VNA/Hospice/Home Care [facility] [phone] Discharge Medical Equipment [employer] [facility] [employer] [phone] 07/09/2022 10:21 EST Discharge Level of Care at Discharge Homehealth/VNA Discharge VNA/Hospice/Home Care [facility] [phone] Discharge Medical Equipment [employer] / [facility] [phone] Discharge Transportation Arranged [facility] [address] [place] [address] Discharge Arranged Transport Date/Time 07/09/2022 15:00 Mode of Transportation Arranged Ambulance Name of Agency #1 [facility] Name of Agency #1 [facility] (bed/mattress) Name of Agency #1 [facility] (wound vac) Agency Paper Deliverer # Service Categories #1 Detention, Wound Care, Wound Vac Service Comments #1 You are discharging home with wound care from [facility]. [facility] is supplying your specialty bed and pressure relieving mattress. [facility] supplies your wound vac. If there are issueswith the vac, please call their main number at [phone] open 02/12. Agency Paper Deliverer # Agency Paper Deliverer # 07/05/2022 8:43 EST Discharge Level of Care at Discharge Homehealth/VNA Discharge VNA/Hospice/Home Care [facility] Discharge Medical Equipment Companies [facility] [phone] Name of Agency #1 [facility] [place]) Name of Agency #1 [facility] Agency Paper Deliverer # Service Categories #1 Physical Therapy, Detention, Wound Care, Wound Vac Service Comments #1 You are going home with [facility] for nursing and wound care. [employer] is the company who supplies the wound vac. [facility] is aware of your discharge home, however, please call agency if you do not hear from them at number listed above. Agency Paper Deliverer # * Catherine PATRICK, Padmini Castro: PERFORM Event Display: Progress Note Hospital Authored Date: Patient: ??PHAN CYR ? Age:??67 Years?Sex:??Male?:??1955?? Subjective No acute events overnight. Patient did not sleep due to roommate requiring constant redirection throughout the night. Pain is moderately well controlled on current regimen, was resting comfortably prior to dressing changes. POD 4 from RLE popliteal plasty with R heel debridement with Dr. Saenz. Denies chest pain, shortness of breath, fever/chills. Anxious about being discharged home. Review of Systems General: No fevers or chills, no weight loss HEENT: No vision changes, headache or sore throat Resp: No dyspnea, cough Cardiac: no chest discomfort or palpitations Abdomen: no nausea, vomiting or diarrhea; no pain, bloating or soreness : no dysuria, changes to urination, flank or back pain Skin: no rashes, ulcers, pruritus, R heel debridement site, L AKA wounds MSK: no joint pain, edema Neuro: no weakness, numbness Physical Exam Vitals & Measurements T:??98.3?F ?? HR:??74(Monitored)?? DE:??58?? RR:??20?? BP:??110/69?? SpO2:??96%?? General appearance: No apparent distress, appears stated age, well developed. Head: Normocephalic, atraumatic. Cardiac: RRR, no murmurs or gallops. Respiratory: Clear to auscultation bilaterally. Abdomen: Soft, nontender, nondistended. No guarding or rebound. No palpable mass. Extremities: Able to move all extremities without difficulty. Warm and well perfused. Neurologic status: Alert and oriented x 3. No focal deficits. Psych: Mood and affect normal. Vascular:?? Right: BP x 3, R heel clean wound base, no purulence or fibrinous exudate noted. Left: AKA medial wound along incision line??is exquisitely tender to palpation and packing, no purulent drainage; medial wound with clean bed and no purulence or erythema. Assessment/Plan Phan Cyr is a 67 year old man well known to the vascular service who presented to [facility] for purulent draining sacral wound. Vascular surgery was consulted for the management of wound on the L AKA wounds and R heel with NIV demonstrating some level of arterial inflow disease. Underwent??antegrade an giography of the right lower extremity, angioplasty of the popliteal artery , debridement of right lower extremity pressure wounds on 07/[address] Saenz. Procedure went well without complications. ?? Recommendations: ? - Tight glycemic control - Continue daily Atorvastatin - Multimodal pain control - Wound care: L AKA -??WTD packing to wound daily, WTD dsg to medial wounds BID; cover with DSD - Wound care: R heel - aquacel Ag BID; cover with Mepilex - Remainder of care per primary team - F/U in 2 weeks at outpatient vascular office ?? [place]ascular [place] [phone]. ?? Resident/PA/SALES PROMOTION COORDINATOR Attestation Case discussed with attending physician:??MD aDny ?? Intake and Output Intake and Output Results?? This visit (24 hour periods starting at 07:00 EST)? 07/09/22 *?? 07/08/22?? 07/07/22?? Total Summary?Intake mL?? --?? 951?? 900?Output mL?? --?? 850?? 1,275?Fluid Balance ?? --?? 101?? -375?? Intake (3)?Oral Fluids mL?? --?? 240?? --?Oral Nutritional Supplements mL?? --?? 711?? --?Sodium Chloride 0.9% 1,000 mL mL?? --?? --?? 900?Total?? --?? 951?? 900?? Output (1)?Urine Voided mL?? --?? 850?? 1,275?Total?? --?? 850?? 1,275?? Counts (3)?Oral Fluids mL?? --?? 240?? --?Oral Nutritional Supplements mL?? --?? 711?? --?Urine Voided mL?? --?? 850?? 1,275? * This column has not completed the indicated time period.?? Labs Last 24 Hours No qualifying data available. * Dany DILL, Angi Hassan: PERFORM Event Display: Progress Note Hospital Authored Date: I reviewed the PA/SALES PROMOTION COORDINATOR's note and findings and discussed it with them. ??I agree with the documented plan of care. return to vascular clinic in 2 weeks for wound check. * Faith Cheek RN: PERFORM, SIGN, VERIFY Event Display: Progress Note Hospital Authored Date: Patient: PHAN CYR Age: 67 years Sex: Male : 1955 Associated Diagnoses: None Author: Faith Cheek RN Findings Problem Related to Alteration in Integumentary : Alteration in Integumentary/new 07/08/2022 18:00 EST Alteration in Integumentary Related to Other: wounds, infection Goals & Outcomes, Integumentary Nutritional intake is adequate for metabolic needs, Pt will maintain adequate fluid & nutritional balance, Wound will progress towards healing Interventions, Integumentary Consult Wound Care as needed for further interventions, Encourage & assist pt to change position frequently, Ensure relief modes are on mattress surface & utilized, Increase turning frequency if red or blanched areas appear, Interdisciplinary consults as appropriate, Keep bed as flat as tolerated to reduce shearing, Keep linen clean, dry and wrinkle free, Keepskin clean & dry, Minimize friction, shear and moisture BH Goals/Interventions, Integumentary Yes Integumentary, Problem Start 06/29/2022 16:27 Reviewed plan with, Integumentary Patient Patient Progression, Integumentary Pt progressing according to plan . Evaluation Pt alert, oriented x 4, c/o back pain, rib pain, bottom pain 8/10 on pain scale, prn IV Dilaudid given one time prior to wound vac dsg change by provider, prn Oxycodone given one time per pt request along with sched Acetaminophen. Pt awaiting wound vac delivery prior to d/c. Pt remains in ther bed, dsgs changed per order. Pt assisted with adl's as needed, pt does not present with distress at this time, safety maintained. . Discharge Information Case Management Discharge Plan : Case Management Discharge Plan Data 07/05/2022 8:43 EST Discharge Level of Care at Discharge Homehealth/VNA Discharge VNA/Hospice/Home Care [facility] Discharge Medical Equipment [employer] [phone] Name of Agency #1 [facility] [place] [facility]) Name of Agency #1 [facility] Agency Paper Deliverer # Service Categories #1 Physical Therapy, Detention, Wound Care, Wound Vac Service Comments #1 You are going home with [facility] for nursing and wound care. [employer] is the company who supplies the wound vac. [facility] is aware of your discharge home, however, please call agency if you do not hear from them at number listed above. Agency Paper Deliverer # Note * Faith Cheek RN: PERFORM Event Display: Discharge/Transfer Note Hospital Authored Date: Nursing Discharge Note Entered On: 07/09/2022 20:28 EST Performed On: 07/09/2022 20:27 EST by Faith Cheek RN Nursing Discharge Note 2 Discharge Time : 07/09/2022 16:00 EST Discharge Level of Care at Discharge : Homehealth/VNA Discharge VNA/Hospice/Home Care(v001) : [facility] [phone] Discharge Medical Equip Companies(v001) : [facility] / [facility] [phone] Patient Left Unit Via : Ambulance Patient Accompanied Off Unit with : Ambulance/Chair Van Personnel Handover Given to Transport Personnel : Yes DC Instructions Provided & Signed by Pt : Yes Patient Understands D/C Instructions : Yes Patient Instructions Discharge Signed : Yes Did Pt have Specialty Bed or Wound Vac : Yes Faith Cheek RN - 07/09/2022 20:27 EST * Ivan DILL, Tita Castro: PERFORM Event Display: Discharge/Transfer Note Hospital Authored Date: Patient: ??PHAN CYR ? Age:??67 Years?Sex:??Male?:??1955?? Patient Information Discharge Location: 4 Primary Care Physician: Tony Rhodes MD Admit Date/Time: 06/28/22 17:36 Discharge Disposition Discharge Disposition: ?? Discharge Diagnosis Atrial fibrillation (I48.91) Sacral osteomyelitis (M46.28) PAD (peripheral artery disease) (I73.9) Seizure disorder (G40.909) Sacral decubitus ulcer (L89.159) ?? _ Discharge Medications Acetaminophen (acetaminophen 325 [...] oral tablet)?1?tab(s)?By Mouth?2 times a day?for 7?Days ? Quality Measures Tobacco Use Treatment:? Medications Started Bactrim, levaquin, Santyl topical Allergies Allergies ?(Active and Proposed Allergies Only) Vioxx? (Severity: Mild, Onset: Unknown) ?Reactions: Hypertension ? Hospital Course 67 y/o male with h/o CAD s/p CABG, A-fib, opiate use disorder, epilepsy, HTN, PAD s/p left AKA (04/13/2022) with extensive vascular history who presents for management of purulent decubitus wound drainage. ?? Admitted for management of sacral osteomyelitis. ? #Ischial and sacral osteomyelitis ??Per CT imaging, with purulent sacral wound ?? S/p debridement with no perioperative complication on 07/01 ??S/P Wound VAC placed on 07/02/2022, ? Underwent antegrade angiography of the right lower extremity, angioplasty of the popliteal artery ,debridement of right lower extremity pressure wounds on 07/05.? Wound AVC changed by surgery today He is being??discharged home in a stable and improved condition with services ? Plan: Will continue Tylenol, oxy Will continue oxy and try to wean of dilaudid Will continue trimethoprim/sulfamethoxazole 2 DS PO BID and levofloxacin 750mg PO daily for 10-14 days as per ID ? - Wound care: L AKA - iodoform packing to wound daily, WTD dsg to medial wounds BID; cover with DSD ??- Wound care: R heel - aquacel Ag BID; cover with Mepilex ? wound vac change 3x/week ??local wound care to bilateral ischial wounds--->daily DSD to left ischium, daily collagenase to area and DSD to Right ischium ?? #PAD s/p left AKA: ? Plan: ?? Will continue aspirin, statin ?? Will continue Plavix Will continue??Eliquis ?#Chronic medical conditions: ??-A-fib: Rate controlled, Eliquis?? Note: His med reconciling suggest he was on Amiodarone, pat can not tell me that he may; no out pt pharmacy record available, called pCP office, and had ti give up after holding 15 mins Advised him to continue his home meds and d/w PCP to review ?-CAD: Continue aspirin, statin ?-Seizure disorder: Keppra ?#Diet: Regular ?#CODE STATUS: Full code ? Objective ? Discharge Planning:? Vital Signs?? Temperature: 98.3 DegF (07/09/22 04:58:00) Temperature Route: Oral (07/09/22 04:58:00) Pulse Rate: 58 bpm (07/09/22 04:58:00) Respiratory Rate: 20 br/min (07/09/22 06:59:00) Systolic Blood Pressure: 110 mm Hg (07/09/22 04:58:00) Diastolic Blood Pressure: 69 mm Hg (07/09/22 04:58:00) Blood pressure sites: Arm, right (07/08/22 19:41:00) Mean Arterial Pressure: 83 mm Hg (07/09/22 04:58:00) Pulse Pressure: 41 mm Hg (07/09/22 04:58:00) Oxygen Saturation: 96 % (07/09/22 05:00:00) Mode of Delivery (Oxygen): Room air (07/09/22 05:00:00) Early Warning Score: 1 (07/09/22 08:34:52) ? . Physical Exam Awake, alert, oriented Lungs: Clear to auscultation bilateral, no wheezing no rales Heart: Regular rate and rhythm, no murmur, no rub or gallop Abdomen: Soft, nontender, nondistended; Bowel sounds present Neurological: No focal deficit Psychiatric: Normal mood and affect ?? Surgery just replaced VAC and did dressing; as per surgery note SKIN: Sacral wound VAC removed, base pink and healthy, edges intact, no purulent drainage no induration or erythema. ?? Yakelin ring place around intact skin and black sponge over the bed wound of approximately 12 x 8 x 1. ?? Placed 06/12/2024 suction and holding well. ??Patient tolerated change at bedside with no issues. Surgical Procedures Surgical Procedures Debridement Procedure 07/01/2022 08:02 Debridement Procedure 07/05/2022 08:05 Aortogram Angiogram Arteriogram with Radha 07/05/2022 08:05 Pending Results Add On Lab Order ordered on 06/30/2022 Comprehensive Metabolic Panel ordered on 06/29/2022 Hold Lavender Tube (BB) ordered on 06/28/2022 Phosphorus Level ordered on 06/29/2022 Follow-Up Appointments Added Follow Up ?Time Frame ?Comments Dany DILL, Angi Hassan?1 to 2 weeks Meagan DILL, Tony Gaines?1 week Arcadio DORMAN MD, Rio Rollins?1 to 2 weeks Post Discharge Care Discharge ?07/09/22 8:42:00 EST Discharge Prescriptions ?ePrescribed, ??07/09/22 8:42:00 EST ?ePrescribed, ??07/08/22 9:56:00 EST Home Health Face to Face *Denotes mandatory hunt ?? *I certify that this patient is under my care and that I or an allowed non- physician working with me had a face to face encounter with the patient on this date:??07/09/2022 08:44 ?? *The encounter with the patient was in whole, or in part, for the following medical condition, which is the primary diagnosis(es) for home health care:??Atrial fibrillation (I48.91) Sacral osteomyelitis (M46.28) PAD (peripheral artery disease) (I73.9) Seizure disorder (G40.909) Sacral decubitus ulcer (L89.159) ? *Select the indications for the discipline/s that are being arranged for this patient. Nursing (select all that apply): [_] None [_x] Medication management (reconciliation, teaching)?? [x_] Chronic disease management?? [_x] Wound care and treatment?? [_] Home safety evaluation [_] Administer SQ/IM/IV medications?? [_] Cath care?? [_] Drain care?? [_] Trach or GT care?? Other _ Occupation Therapy (select all that apply): [_] None [_] ADL Management [_] Fall prevention training [_] Energy conservation [_] Cognitive training Other _ Physical Therapy (select all that apply): [_] None [_x] Functional mobility training [_x] Home exercise program to strengthen [_x] Increase ROM?? [x_] Falls prevention training [x_] Home maintenance program for chronic disease Other _ Speech Therapy (select all that apply): [_] None [_] Swallow evaluation and training [_] Speech and language training [_] Cognitive training to process, organize, and/or recall information Other _ ? *Homebound due to (select all that apply): [x_] Inability to leave home without assistance/supervision [_] Inability to ambulate without assistance [_] Pain [xDecreased strength and endurance [_] Unsteady gait [_] Severe SOB and fatigue [_] Impaired transfers [_] Inability to negotiate stairs [_] Limited weight bearing [_] Mental status change? *Physician Signature:??Tita Love MD ?? *By signing this, I certify that I have personally evaluated the patient and agree with the findings and recommendations as documented above. ? [email or web address] Results Discharge Labs BLOOD COUNT & DIFF WBC 14.8 k/mm3 (High)?? 07/08/2022 01:06 RBC 4.18 m/mm3 (Low)?? 07/08/2022 01:06 Hgb 10.9 Gm/dL (Low)?? 07/08/2022 01:06 Hct 34.3 % (Low)?? 07/08/2022 01:06 MCV 82.1 femtoliters ()?? 07/08/2022 01:06 MCH 26.1 pg (Low)?? 07/08/2022 01:06 MCHC 31.8 g/dL (Low)?? 07/08/2022 01:06 Platelet Count 216 k/mm3 ()?? 07/08/2022 01:06 RDW-SD 56.7 femtoliters (High)?? 07/08/2022 01:06 MPV 9.4 femtoliters ()?? 07/08/2022 01:06 Nucleated RBC (Automated) 0.0 #/100 WBC'S ()?? 07/08/2022 01:06 Abs. NRBC 0.0 k/mm3 ()?? 07/08/2022 01:06 Abs. Neut 10.7 k/mm3 (High)?? 07/08/2022 01:06 Abs. Lymph 1.9 k/mm3 ()?? 07/08/2022 01:06 Abs. [place] 1.9 k/mm3 (High)?? 07/08/2022 01:06 Abs. Eo 0.1 k/mm3 ()?? 07/08/2022 01:06 Abs. Baso 0.1 k/mm3 ()?? 07/08/2022 01:06 Neut % 72.9 % ()?? 07/08/2022 01:06 Lymph % 12.8 % (Low)?? 07/08/2022 01:06 [place] % 13.0 % (High)?? 07/08/2022 01:06 Eos % 0.3 % ()?? 07/08/2022 01:06 Baso % 0.3 % ()?? 07/08/2022 01:06 RBC Morphology MODERATE ()?? 06/28/2022 12:40 Imm Gran 0.7 % ()?? 07/08/2022 01:06 Abs. Imm Gran 0.1 k/mm3 ()?? 07/08/2022 01:06 ? CHEM GENERAL Sodium 135 mmol/L ()?? 07/08/2022 01:06 Potassium 5.4 mmol/L (High)?? 07/08/2022 01:06 Chloride 102 mmol/L ()?? 07/08/2022 01:06 Bicarbonate Level 25 mmol/L ()?? 07/08/2022 01:06 Anion Gap 8 ()?? 07/08/2022 01:06 Glucose Level 89 mg/dL ()?? 07/08/2022 01:06 Glucose, POC 87 mg/dL ()?? 07/09/2022 08:32 BUN 12 mg/dL ()?? 07/08/2022 01:06 Creatinine-Blood 1.3 mg/dL (High)?? 07/08/2022 01:06 Estimated GFR Creatinine 60 ML/MIN/1.73 M2 ()?? 07/08/2022 01:06 Calcium 8.3 mg/dL (Low)?? 07/08/2022 01:06 Magnesium 2.2 mg/dL ()?? 07/08/2022 01:06 Albumin 3.0 Gm/dL (Low)?? 06/28/2022 17:42 Lactate 1.5 mmol/L ()?? 06/28/2022 12:40 ?? COAG INR 1.2 (High)?? 06/28/2022 17:42 Protime (PT) 12.4 seconds (High)?? 06/28/2022 17:42 APTT 35.3 seconds (High)?? 06/28/2022 17:42 ? HEME OTHER Hold Blue Top SPECIMEN DISCARDED AFTER 4 HOURS. ()?? 06/28/2022 12:40 ? IMMUNOLOGY GENERAL Prealbumin 5.8 mg/dL (Low)?? 06/28/2022 17:42 ? MISC. CHEMISTRY Hold Green Top SPECIMEN DISCARDED AFTER 1 WEEK ()?? 06/28/2022 12:40 ? TOXICOLOGY/TDM Vancomycin Level, Trough 4.1 mg/L (Low)?? 07/01/2022 21:08 ? UA/URINALYSIS Appear/Color, Urine COLORLESS ()?? 07/07/2022 16:30 Specific [place], Urine 1.012 ()?? 07/07/2022 16:30 pH, Urine 7.5 ()?? 07/07/2022 16:30 Albumin, Urine NEGATIVE ()?? 07/07/2022 16:30 Glucose, Urine NEGATIVE ()?? 07/07/2022 16:30 Ketones, Urine NEGATIVE ()?? 07/07/2022 16:30 Bilirubin, Urine NEGATIVE ()?? 07/07/2022 16:30 Hemoglobin, Urine NEGATIVE ()?? 07/07/2022 16:30 Nitrite, Urine NEGATIVE ()?? 07/07/2022 16:30 Leukocyte, Urine NEGATIVE ()?? 07/07/2022 16:30 Urobilinogen NORMAL mg/dL ()?? 07/07/2022 16:30 WBC's, Urine 1 /HPF ()?? 07/07/2022 16:30 RBC's, Urine 1 /HPF ()?? 07/07/2022 16:30 ? VIROLOGY COVID-19 by RT-PCR NEGATIVE ()?? 06/28/2022 15:50 COVID-19 PCR Specimen Source NASAL ()?? 07/08/2022 05:43 COVID-19 PCR Result NEGATIVE ()?? 07/08/2022 05:43 ? Microbiology ?? Blood Culture?? Completed?? Source: Blood Body Site: ?? Collected Dt/Tm: 06/28/2022 12:13 Last Updated Dt/Tm: 06/28/2022 12:13 ?SPECIMEN DESCRIPTION : BLOOD RFOREARMSPECIAL REQUESTS : NONECULTURE : NO GROWTH 5 DAYS.REPORT STATUS : FINAL 07/03/2022 Blood Culture #2?? Completed?? Source: Blood Body Site: ?? Collected Dt/Tm: 06/28/2022 12:13 Last Updated Dt/Tm: 06/28/2022 12:13 ?SPECIMEN DESCRIPTION : BLOOD ??LASPECIAL REQUESTS : NONECULTURE : NO GROWTH 5 DAYS.REPORT STATUS : FINAL 07/03/2022 Wound Superficial Culture W/ Gram Smear?? Completed?? Source: Ulcer Body Site: Sacrum Collected Dt/Tm: 06/28/2022 20:28 Last Updated Dt/Tm: 06/28/2022 22:28 ?SPECIMEN DESCRIPTION : ULCER SACRUMSPECIAL REQUESTS : NONEGRAM STAIN : 4+ POLYMORPHONUCLEAR LEUKOCYTES ?4+ GRAM NEGATIVE RODS ?2+ GRAM POSITIVE RODS ?2+ GRAM POSITIVE COCCICULTURE : No significant microorganisms isolated. ??Please consult the laboratory ?[phone]) within 7 days if more definitive studies are clinically ? indicated.REPORT STATUS : FINAL 07/01/2022 COVID-19 (2019 Novel Coronavirus) PCR?? Completed?? Source: Nasal Body Site: Nose Collected Dt/Tm: 07/01/2022 05:19 Last Updated Dt/Tm: 07/01/2022 18:49 COVID-19 (2019 Novel Coronavirus) PCR?? Completed?? Source: Nasal Body Site: Nose Collected Dt/Tm: 07/04/2022 05:05 Last Updated Dt/Tm: 07/04/2022 12:25 Urine Culture?? Completed?? Source: Urine Clean Catch Body Site: ?? Collected Dt/Tm: 07/07/2022 16:29 Last Updated Dt/Tm: 07/07/2022 16:29 ?SPECIMEN DESCRIPTION : URINE CLEAN CATCH/MIDSTREAMSPECIAL REQUESTS : NONECULTURE : NO GROWTHREPORT STATUS : FINAL 07/08/2022 COVID-19 (2019 Novel Coronavirus) PCR?? Completed?? Source: Nasal Body Site: Nose Collected Dt/Tm: 07/08/2022 05:43 Last Updated Dt/Tm: 07/08/2022 14:25 ? 35 minutes spent on discharge * Alpa Evangelista RN: PERFORM, SIGN, VERIFY Event Display: Case Management Discharge Plan Authored Date: Patient: PHAN CYR Age: 67 years Sex: Male : 1955 Associated Diagnoses: None Author: Alpa Evangelista RN Discharge Plan Case Management Discharge Plan : Case Management Discharge Plan Data 07/09/2022 10:21 EST Discharge Level of Care at Discharge Homehealth/VNA Discharge VNA/Hospice/Home Care [facility] [phone] Discharge Medical Equipment Companies [facility] / [facility] [phone] Discharge Transportation Arranged [facility] [address] [place] [address] Discharge Arranged Transport Date/Time 07/09/2022 15:00 Mode of Transportation Arranged Ambulance Name of Agency #1 [facility] Name of Agency #1 [facility] (bed/mattress) Name of Agency #1 [facility] (wound vac) Agency Paper Deliverer # Service Categories #1 Detention, Wound Care, Wound Vac Service Comments #1 You are discharging home with wound care from [facility]. [facility] is supplying your specialty bed and pressure relieving mattress. [employer] supplies your wound vac. If there are issueswith the vac, please call their main number at [phone] open 02/12. Agency Paper Deliverer # Agency Paper Deliverer # * Faith Cheek RN: PERFORM Event Display: Patient Education/Instruction Authored Date: Inpatient Adult Discharge Instructions [address] [address] Name: PHAN CYR : 1955 Visit: 06/28/2022 17:36:00 Current Date: 07/09/2022 14:34 Account: [id number] Inpatient Adult Discharge Instructions We would like [...] and their families. Surveys are administered by [employer] ?? If further treatment with your primary care physician or another doctor is recommended, it is important for you to keep the appointment. Call your primary care physician or return to the Emergency Department immediately if your condition worsens, fails to improve, or new symptoms develop. If you need to find a doctor, you can call [facility] for a referral at [phone] or toll free at [phone] or log in to [email or web address].. ?? You can view and manage your care through the patient portal or by using a health care tyler of your choosing. [employer] is a website that allows you to securely view your medical information including your hospital discharge summary, office visit summaries, medications and follow-up visits. You can also request appointments, renew medications, and request access to your medical information using a health care tyler of your choosing, or just ask a question. You can enroll at [email or web address] or register during your next office visit. You have been discharged from [facility], Patient Care Unit: S64. If you have any questions regarding these instructions after you leave, please call us and we will be happy to assist you. [facility] Your Care Team Attending Physician Tita Love MD Consulting Providers Johan Menendez DO; Angi Saenz MD Discharging Providers Tita Love MD Reason for Admission Buttocks sore x2 weeks. Per home nurse, wound is oozing a greyish color. Left below the knee amputation. Took Oxycodone at home but is not prescibed. History of drug abuse. Your Diagnosis Sacral decubitus ulcer Atrial fibrillation Sacral osteomyelitis PAD (peripheral artery disease) Seizure disorder Sacral decubitus ulcer Tests Performed Below is a partial list of the tests performed during your hospitalization. You may have had other tests and procedures not included in this list. Please discuss all test results with your provider. Albumin Level Basic Metabolic Panel BUN CBC CBC w/ Differential Complete Urinalysis COVID-19 (2019 Novel Coronavirus) PCR COVID-19 (Novel Coronavirus), Rapid PCR Creatinine Electrolytes Glucose Level GLUCOSE POC HOLD BLUE TUBE HOLD GREEN TUBE Lactate Level Magnesium Level Prealbumin PT (INR) PTT Vancomycin Trough CT Angio Abdomen Aorta Bilat IlioFem Primary Care Provider Tony Rhodes MD Advance Directive Health Care Proxy on File Yes - Health Care Proxy Discharge Vitals Temperature: 98.3 DegF Pulse Rate: 58 bpm Respiratory Rate: 20 br/min Systolic Blood Pressure: 110 mm Hg Diastolic Blood Pressure: 69 mm Hg Oxygen Saturation: 96 % Studies Pending All tests and labs ordered during this hospital stay have been completed unless listed below. Please discuss all pending results with your provider listed above in these instructions. ?? Add On Lab Order Comprehensive Metabolic Panel Hold Lavender Tube (BB) Phosphorus Level What to do next Instructions From Your Doctor Discharge Orders Scheduled Follow-Up Appointments Friday 2:20 PM EDT ?? With: Angi Saenz MD Where: [facility] [address] [address]- You Need to Schedule the Following Appointments Follow Up with??Angi Saenz MD When??Within 1 to 2 weeks Where: Follow Up with??Tony Rhodes MD When??Within 1 week Where: Follow Up with??Arcadio DORMAN MD, Rio Rollins When??Within 1 to 2 weeks Where: Discharge Medications PHAN CYR :1955 Visit Date:06/28/2022 Medications: Please continue your medications until treatment is completed or stopped by your provider. Medications not listed below should be discontinued. Discuss any questions related to medications with your provider. What How Much When Instructions Next Dose New Collagenase Topical (collagenase topical 250 u/ gm ointment) 1 tyler Topically Daily apply moist dressing over the santyl, triad cream on surrouding skin and DSD over all ?? Pickup at [place] [address] 07/10/22 New Durable Medical Equipment (Nutritional Supplements) Ensure Oral 3 times a day Pickup at [place] [address] n/a New Polyethylene Glycol 3350 (MiraLax oral powder for reconstitution) 17 gram Oral Daily dissolve in water before taking ?? Pickup at [place] [address] 07/10/22 Changed Docusate (Colace sodium 100 mg oral capsule) 1 capsule Oral Twice a day 07/09/22 Changed Oxycodone (oxyCODONE 5 mg oral tablet) 1 tab(s) Oral Every 6 hours as needed for as needed for pain mass pat reviewed take colace ?? Pickup at [facility] 3 As neede last dose 07/09/22 ?? Unchanged Acetaminophen (acetaminophen 325 mg oral tablet) 650 Milligram Oral Every 4 hours as needed for Pain , Mild As needed?? last dose?? 07/09/22 @ 0830 ? Unchanged Albuterol (albuterol 90 mcg/ inh inhalation powder) 2 puff(s) Inhalation Every 4 hours as needed for as needed As needed Unchanged apixaban (Eliquis 5 mg oral tablet) 1 tab(s) Oral Twice a day Duration: 30 Days Resume home regimen Unchanged Aspirin (aspirin 81 mg oral delayed release tablet) 1 tab(s) Oral Daily 07/10/22 Unchanged Atorvastatin (atorvastatin 40 mg oral tablet) See instructions TAKE 1 TABLET BY MOUTH DAILY ?? 07/09/22 tonight Unchanged Cholecalciferol (Vitamin D3 10,000 intl units oral capsule) 1 capsule Oral Every week Duration: 6 week(s) Resume home regimen Unchanged levETIRAcetam (Keppra 500 mg oral tablet) 1 tab(s) Oral Twice a day Resume home regimen Unchanged Levofloxacin (levoFLOXacin 750 mg oral tablet) 1 tab(s) Oral Every 48 hours Duration: 7 Days Pickup at [facility] 3 07/10/22 morning Unchanged Lidocaine Topical (lidocaine 5% topical film) Topically Daily Resume home regimen Unchanged Melatonin (melatonin 3 mg oral tablet) 9 Milligram Oral Daily at Bedtime Resume home regimen Unchanged Metoprolol (Metoprolol Succinate ER 25 mg oral tablet, extended release) 1 tab(s) Oral Daily 07/10/22 Unchanged Multivitamin With Minerals (Multivit Therapeutic/ Minerals Tablet) 1 tab(s) Oral Daily 07/10/22 Unchanged Omeprazole (omeprazole 20 mg oral delayed release tablet) 1 tab(s) Oral Daily in the morning 07/10/22 Unchanged Pentoxifylline (pentoxifylline 400 mg oral tablet, extended release) 1 tab(s) Oral 3 times a day Resume home regimen Unchanged Sulfamethoxazole/ Trimethoprim (sulfamethoxazole-trimethoprim 800 mg- 160 mg oral tablet) 1 tab(s) Oral Twice a day Duration: 7 Days Pickup at [facility] 3 07/09/22 [email or web address] Pharmacy Information [facility] 3: [address] [place], [place] [id number] [phone] ?? What How Much When Comments Stop Taking amiODARONE (amiodarone 200 mg oral tablet) 2 tab(s) Oral Twice a day STOP Stop Taking Amoxicillin-Clavulanate (Augmentin 875 mg-125 mg oral tablet) 1 tab(s) Oral Every 12 hours Duration: 14 Days STOP Stop Taking Bisacodyl (bisacodyl 10 mg rectal suppository) 1 suppository(ies) Per rectum Daily as needed for Constipation STOP Stop Taking Clonidine (cloNIDine 0.1 mg oral tablet) 1 tab(s) Oral Twice a day STOP Stop Taking Durable Medical Equipment (Nebulizer/ Compressor) See instructions to use every 6hrs prn copd exacerbation ?? STOP Stop Taking Durable Medical Equipment (plain 1/ 4 inch nugage) See instructions use as directed ?? STOP Stop Taking Folic Acid (folic acid 1 mg oral tablet) 1 tab(s) Oral Daily Duration: 30 Days STOP Stop Taking Gabapentin (gabapentin 300 mg oral capsule) 1 capsule Oral 3 times a day STOP Stop Taking Miscellaneous Rx (Netskopeel Ag) See instructions use as directed ?? STOP Stop Taking Miscellaneous Rx (Complete blood count with differential and Basic metabolic panel in 1week from 2021) See instructions Complete blood count with differential and Basic metabolic panel in 1 week from 2021 ?? STOP Stop Taking Multivitamin (Vit B Complex/ Vit C Capsule) 1 tab(s) Oral Daily STOP Stop Taking Nitroglycerin (nitroglycerin 0.4 mg sublingual tablet) See instructions TAKE 1 TABLET UNDER THE TONGUE EVERY 5 MINUTES NEEDED FOR CHEST PAIN AFTER 3 DOSES, CALL 911 ?? STOP Stop Taking Remove Patch (Remove Patch) 1 Each Topically Daily STOP Stop Taking Senna (Senna 8.6 mg oral tablet) 1 tab(s) Oral Daily STOP Stop Taking Thiamine (thiamine 100 mg oral tablet) 1 tab(s) Oral Daily STOP Test Results Below is a partial list of the most recent Laboratory test results done prior to this discharge. You may have had other tests and procedures not included in this list. Please discuss all test resultswith your provider. Albumin Level (06/28/2022) ???Albumin - 3.0 Gm/dL Basic Metabolic Panel (07/08/2022) ???Sodium - 135 mmol/L???Potassium - 5.4 mmol/L???Chloride - 102 mmol/L???Bicarbonate Level - 25 mmol/L???Anion Gap - 8???Glucose Level - 89 mg/dL???BUN - 12 mg/dL???Creatinine-Blood - 1.3 mg/dL???Estimated GFR Creatinine - 60 ML/MIN/1.73 M2???Calcium - 8.3 mg/dL BUN (07/07/2022) ???BUN - 11 mg/dL CBC (07/02/2022) ???WBC - 12.5 k/mm3???RBC - 4.28 m/mm3???Hgb - 11.0 Gm/dL???Hct - 34.6 %???MCV - 80.8 femtoliters???MCH - 25.7 pg???MCHC - 31.8 g/dL???Platelet Count - 197 k/mm3???RDW-SD - 53.2 femtoliters???MPV - 9.8 femtoliters???Nucleated RBC (Automated) - 0.0 #/100 WBC'S???Abs. NRBC - 0.0 k/mm3 CBC w/ Differential (07/08/2022) ???WBC - 14.8 k/mm3???RBC - 4.18 m/mm3???Hgb - 10.9 Gm/dL???Hct - 34.3 %???MCV - 82.1 femtoliters???MCH - 26.1 pg???MCHC - 31.8 g/dL???Platelet Count - 216 k/mm3???RDW-SD - 56.7 femtoliters???MPV - 9.4 femtoliters???Nucleated RBC (Automated) - 0.0 #/100 WBC'S???Abs. NRBC - 0.0 k/mm3???Abs. Neut - 10.7 k/mm3???Abs. Lymph - 1.9 k/mm3???Abs. [place] - 1.9 k/mm3???Abs. Eo - 0.1 k/mm3???Abs. Baso - 0.1 k/mm3???Neut % - 72.9 %???Lymph % - 12.8 %???[place] % - 13.0 %???Eos % - 0.3 %???Baso % - 0.3 %???Imm Gran - 0.7 %???Abs. Imm Gran - 0.1 k/mm3 Complete Urinalysis (07/07/2022) ???Appear/Color, Urine - COLORLESS???Specific [place], Urine - 1.012???pH, Urine - 7.5???Albumin, Urine - NEGATIVE???Glucose, Urine - NEGATIVE???Ketones, Urine - NEGATIVE???Bilirubin, Urine - NEGATIVE???Hemoglobin, Urine - NEGATIVE???Nitrite, Urine - NEGATIVE???Leukocyte, Urine - NEGATIVE???Urobilin ogen - NORMAL???WBC's, Urine - 1 /HPF???RBC's, Urine - 1 /HPF COVID-19 (2019 Novel Coronavirus) PCR (07/08/2022) ???COVID-19 PCR Specimen Source - NASAL???COVID-19 PCR Result - NEGATIVE COVID-19 (Novel Coronavirus), Rapid PCR (06/28/2022) ???COVID-19 by RT-PCR - NEGATIVE Creatinine (07/07/2022) ???Creatinine-Blood - 1.3 mg/dL???Estimated GFR Creatinine - 62 ML/MIN/1.73 M2 Electrolytes (07/07/2022) ???Sodium - 134 mmol/L???Potassium - 4.6 mmol/L???Chloride - 101 mmol/L???Bicarbonate Level - 23 mmol/L???Anion Gap - 10 Glucose Level (07/07/2022) ???Glucose Level - 95 mg/dL GLUCOSE POC (07/09/2022) ???Glucose, POC - 135 mg/dL HOLD BLUE TUBE (06/28/2022) ???Hold Blue Top - SPECIMEN DISCARDED AFTER 4 HOURS. HOLD GREEN TUBE (06/28/2022) ???Hold Green Top - SPECIMEN DISCARDED AFTER 1 WEEK Lactate Level (06/28/2022) ???Lactate - 1.5 mmol/L Magnesium Level (07/08/2022) ???Magnesium - 2.2 mg/dL Prealbumin (06/28/2022) ???Prealbumin - 5.8 mg/dL PT (INR) (06/28/2022) ???INR - 1.2???Protime (PT) - 12.4 seconds PTT (06/28/2022) ???APTT - 35.3 seconds Vancomycin Trough (07/01/2022) ???Vancomycin Level, Trough - 4.1 mg/L Allergies (NKA means No Known Allergies) Vioxx??(Hypertension) Problems Active Problems??(35) Adenomatous polyposis coli?? Anemia?? Anxiety?? Arm weakness?? [...] (cerebrovascular disease)?? GERD (gastroesophageal reflux disease)?? Glaucoma?? Great toe pain?? H/O herpes zoster?? Hypercholesterolemia?? Hypertension?? Insomnia?? Long-term (current) use of anticoagulants, INR goal 2.0-3.0?? Low back pain?? Mild mitral regurgitation?? Old myocardial infarction, NSTEMI?? Opiate dependence?? 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?? PAD (peripheral artery disease)?? Pulmonary nodule, right middle?? PVD (peripheral vascular disease)?? S/P hernia repair?? Seizure disorder?? Vitamin D deficiency?? Wrist pain?? Education Materials Below is the list of Educational Leaflet Providered with your Discharge Instructions. Valuables and Belongings I fully understand and agree that [facility] accepts no responsibility for all my personal [...] Review of Valuable and Belonging List: With patient, With witness Date for Pt to Sign Valuables/Belongings: 06/29/22 15:58:00 ?? Other Discharge Information ?? Wound Assessment?? Wound Assessment?? Wound Location I: Ischium, left Wound I, Present on Admission: Yes Wound Location II: Heel, right Wound II, Present on Admission: Yes Wound Location III: Leg, left upper Wound III, Present on Admission: Yes Wound Location IV: Leg, left upper Wound IV, Present on Admission: Yes Wound Location V: Ischium, right Wound V, Present on Admission: Yes Wound Vac Location: sacrum Dressing Intact Wound: Yes Suction Setting Wound: 125 mm Hg ? Case Management Discharge Plan?? Discharge Plan?? Discharge Agency Information?? Discharge Level of Care at Discharge: Homehealth/VNA Name of Agency #1: [facility] Discharge Transportation Arranged: [facility] [address] [facility] ??[phone] Name of Agency #1: [facility] (wound vac) Mode of Transportation Arranged: Ambulance Name of Agency #1: [facility] (bed/mattress) Discharge Arranged Transport Date/Time: 07/09/22 15:00:00 Agency Paper Deliverer #1: [phone] Discharge VNA/Hospice/Home Care: [facility] [phone] Service Categories #1: Detention, Wound Care, Wound Vac Discharge Medical Equipment Companies: [facility] / [facility] [phone] Service Comments #1: You are discharging home with wound care from [facility]. [facility] is supplyingyour specialty bed and pressure relieving mattress. [facility] supplies your wound vac. If there are issues with the vac, please call their main number at ??[phone] open 02/12. ?? Agency Paper Deliverer #2: ?? Agency Paper Deliverer #3: [phone] ?? Pulmonary Rehab Status?? Pulmonary Rehab Discharge Status?? Respiratory Rate: 20 br/min Discharge Medical Equipment Companies: [facility] / [facility] [phone] ? Common Emergency Awareness Tips IS IT [...] are strongly encouraged to quit. Please call [facility] at [phone] or [phone] ([phone]) or log in to [email or web address] for referrals to smoking cessation programs. ?? The National Suicide Prevention Hotline is available 02/12 if you or someone you know needs to find a reason to keep living. By calling 3-602-669-Shopcade (4593) you'll be connected to a skilled, trained counselor at a crisis center in your area. INPATIENT DISCHARGE INSTRUCTIONS SIGNATURE PAGE PHAN CYR Location:[facility] Registration Date and Time:06/28/2022 17:36 EST Primary Care Physician: Tony Rhodes MD, I PHAN CYR, have received the above patient education materials/instructions and have verbalized understanding. If ambulance or transport services are being used I further acknowledge being givena choice of service. ?? If you need to contact me, please call me at this number: . Patient/Insulation Worker Name: Patient/Insulation Worker Signature: Relationship to Patient: Witness Name/Signature: Date: * Event Display: Provider Clarification Note Please click on pdf link to open report * Ivan DILL, Tita Castro: MODIFY, PERFORM Event Display: Discharge/Transfer Note Hospital Authored Date: Patient: ??PHAN CYR ? Age:??67 Years?Sex:??Male?:??1955?? Patient Information Discharge Location: [facility] Primary Care Physician: Tony Rhodes MD Admit Date/Time: 06/28/22 17:36 Discharge Disposition Discharge Disposition: ?? Discharge Diagnosis Atrial fibrillation (I48.91) Sacral osteomyelitis (M46.28) PAD (peripheral artery disease) (I73.9) Seizure disorder (G40.909) Sacral decubitus ulcer (L89.159) ?? _ Discharge Medications Acetaminophen (acetaminophen 325 [...] oral tablet)?1?tab(s)?By Mouth?2 times a day?for 7?Days ? Quality Measures Tobacco Use Treatment:? Medications Started Bactrim, levaquin, Santyl topical Allergies Allergies ?(Active and Proposed Allergies Only) Vioxx? (Severity: Mild, Onset: Unknown) ?Reactions: Hypertension ? Hospital Course 67 y/o male with h/o CAD s/p CABG, A-fib, opiate use disorder, epilepsy, HTN, PAD s/p left AKA (04/13/2022) with extensive vascular history who presents for management of purulent decubitus wound drainage. ?? Admitted for management of sacral osteomyelitis. ? #Ischial and sacral osteomyelitis ??Per CT imaging, with purulent sacral wound ?? S/p debridement with no perioperative complication on 07/01 ??S/P Wound VAC placed on 07/02/2022, ? Underwent antegrade angiography of the right lower extremity, angioplasty of the popliteal artery ,debridement of right lower extremity pressure wounds on 07/05.? Wound AVC changed by surgery today He is being??discharged home in a stable and improved condition with services ? Plan: Will continue Tylenol, oxycodone Will continue trimethoprim/sulfamethoxazole 2 DS PO BID and levofloxacin 750mg PO daily for 7 more days ID ? - Wound care: L AKA:??WTD bid and cover w dsd.?- Wound care: R heel - aquacel Ag BID; cover with Mepilex ? wound vac change 3x/week ??local wound care to bilateral ischial wounds--->daily DSD to left ischium, daily collagenase to area and DSD to Right ischium ?? #PAD s/p left AKA: ? Plan: ?? Will continue aspirin, statin ?? Will continue Plavix Will continue??Eliquis ?#Chronic medical conditions: ??-A-fib: Rate controlled Will continue BB and Eliquis?? Note: He was on Amiodarone in the past, but no longer taking,??last fill was on 04/10/21; I??calledP office, and had to give up after holding 15 mins Advised him to continue his home meds and d/w PCP to review ?-CAD: Continue aspirin, statin ?-Seizure disorder: Keppra ?#Diet: Regular ?#CODE STATUS: Full code ? Objective Vital Signs?? Temperature: 98.6 DegF (07/08/22 06:04:00) Temperature Route: Oral (07/08/22 06:04:00) Pulse Rate: 77 bpm (07/08/22 06:04:00) Respiratory Rate: 18 br/min (07/08/22 09:21:00) Systolic Blood Pressure: 122 mm Hg (07/08/22 06:04:00) Diastolic Blood Pressure: 67 mm Hg (07/08/22 06:04:00) Blood pressure sites: Arm, right (07/08/22 06:04:00) Mean Arterial Pressure: 85 mm Hg (07/08/22 06:04:00) Pulse Pressure: 55 mm Hg (07/08/22 06:04:00) Oxygen Saturation: 97 % (07/08/22 06:04:00) Mode of Delivery (Oxygen): Room air (07/08/22 06:04:00) Early Warning Score: 1 (07/08/22 09:29:43) ? . Physical Exam Awake, alert, oriented Lungs: Clear to auscultation bilateral, no wheezing no rales Heart: Regular rate and rhythm, no murmur, no rub or gallop Abdomen: Soft, nontender, nondistended; Bowel sounds present Neurological: No focal deficit Psychiatric: Normal mood and affect ?? Surgery just replaced VAC and did dressing; as per surgery note SKIN: Sacral wound VAC removed, base pink and healthy, edges intact, no purulent drainage no induration or erythema. ?? Yakelin ring place around intact skin and black sponge over the bed wound of approximately 12 x 8 x 1. ?? Placed 06/12/2024 suction and holding well. ??Patient tolerated change at bedside with no issues. Surgical Procedures Debridement Procedure 07/01/2022 08:02 Debridement Procedure 07/05/2022 08:05 Aortogram Angiogram Arteriogram with Radha 07/05/2022 08:05 Pending Results Add On Lab Order ordered on 06/30/2022 COVID-19 (2019 Novel Coronavirus) PCR ordered on 07/08/2022 Comprehensive Metabolic Panel ordered on 06/29/2022 Hold Lavender Tube (BB) ordered on 06/28/2022 Phosphorus Level ordered on 06/29/2022 Urine Culture ordered on 07/07/2022 Follow-Up Appointments Added Follow Up ?Time Frame ?Comments Tony Rhodes MD?1 week Dany DILL, Angi Hassan?4 to 5 weeks Arcadio DORMAN MD, Rio T?1 to 2 weeks Post Discharge Care Discharge ?07/08/22 9:56:00 EST Discharge Prescriptions ?ePrescribed, ??07/08/22 9:56:00 EST Home Health Face to Face ^HomeHealthFTF Results Discharge Labs BLOOD COUNT & DIFF WBC 14.8 k/mm3 (High)?? 07/08/2022 01:06 RBC 4.18 m/mm3 (Low)?? 07/08/2022 01:06 Hgb 10.9 Gm/dL (Low)?? 07/08/2022 01:06 Hct 34.3 % (Low)?? 07/08/2022 01:06 MCV 82.1 femtoliters ()?? 07/08/2022 01:06 MCH 26.1 pg (Low)?? 07/08/2022 01:06 MCHC 31.8 g/dL (Low)?? 07/08/2022 01:06 Platelet Count 216 k/mm3 ()?? 07/08/2022 01:06 RDW-SD 56.7 femtoliters (High)?? 07/08/2022 01:06 MPV 9.4 femtoliters ()?? 07/08/2022 01:06 Nucleated RBC (Automated) 0.0 #/100 WBC'S ()?? 07/08/2022 01:06 Abs. NRBC 0.0 k/mm3 ()?? 07/08/2022 01:06 Abs. Neut 10.7 k/mm3 (High)?? 07/08/2022 01:06 Abs. Lymph 1.9 k/mm3 ()?? 07/08/2022 01:06 Abs. [place] 1.9 k/mm3 (High)?? 07/08/2022 01:06 Abs. Eo 0.1 k/mm3 ()?? 07/08/2022 01:06 Abs. Baso 0.1 k/mm3 ()?? 07/08/2022 01:06 Neut % 72.9 % ()?? 07/08/2022 01:06 Lymph % 12.8 % (Low)?? 07/08/2022 01:06 [place] % 13.0 % (High)?? 07/08/2022 01:06 Eos % 0.3 % ()?? 07/08/2022 01:06 Baso % 0.3 % ()?? 07/08/2022 01:06 RBC Morphology MODERATE ()?? 06/28/2022 12:40 Imm Gran 0.7 % ()?? 07/08/2022 01:06 Abs. Imm Gran 0.1 k/mm3 ()?? 07/08/2022 01:06 ? CHEM GENERAL Sodium 135 mmol/L ()?? 07/08/2022 01:06 Potassium 5.4 mmol/L (High)?? 07/08/2022 01:06 Chloride 102 mmol/L ()?? 07/08/2022 01:06 Bicarbonate Level 25 mmol/L ()?? 07/08/2022 01:06 Anion Gap 8 ()?? 07/08/2022 01:06 Glucose Level 89 mg/dL ()?? 07/08/2022 01:06 Glucose, POC 96 mg/dL ()?? 07/08/2022 08:14 BUN 12 mg/dL ()?? 07/08/2022 01:06 Creatinine-Blood 1.3 mg/dL (High)?? 07/08/2022 01:06 Estimated GFR Creatinine 60 ML/MIN/1.73 M2 ()?? 07/08/2022 01:06 Calcium 8.3 mg/dL (Low)?? 07/08/2022 01:06 Magnesium 2.2 mg/dL ()?? 07/08/2022 01:06 Albumin 3.0 Gm/dL (Low)?? 06/28/2022 17:42 Lactate 1.5 mmol/L ()?? 06/28/2022 12:40 ?? COAG INR 1.2 (High)?? 06/28/2022 17:42 Protime (PT) 12.4 seconds (High)?? 06/28/2022 17:42 APTT 35.3 seconds (High)?? 06/28/2022 17:42 ? HEME OTHER Hold Blue Top SPECIMEN DISCARDED AFTER 4 HOURS. ()?? 06/28/2022 12:40 ? IMMUNOLOGY GENERAL Prealbumin 5.8 mg/dL (Low)?? 06/28/2022 17:42 ? MISC. CHEMISTRY Hold Green Top SPECIMEN DISCARDED AFTER 1 WEEK ()?? 06/28/2022 12:40 ? TOXICOLOGY/TDM Vancomycin Level, Trough 4.1 mg/L (Low)?? 07/01/2022 21:08 ? UA/URINALYSIS Appear/Color, Urine COLORLESS ()?? 07/07/2022 16:30 Specific [place], Urine 1.012 ()?? 07/07/2022 16:30 pH, Urine 7.5 ()?? 07/07/2022 16:30 Albumin, Urine NEGATIVE ()?? 07/07/2022 16:30 Glucose, Urine NEGATIVE ()?? 07/07/2022 16:30 Ketones, Urine NEGATIVE ()?? 07/07/2022 16:30 Bilirubin, Urine NEGATIVE ()?? 07/07/2022 16:30 Hemoglobin, Urine NEGATIVE ()?? 07/07/2022 16:30 Nitrite, Urine NEGATIVE ()?? 07/07/2022 16:30 Leukocyte, Urine NEGATIVE ()?? 07/07/2022 16:30 Urobilinogen NORMAL mg/dL ()?? 07/07/2022 16:30 WBC's, Urine 1 /HPF ()?? 07/07/2022 16:30 RBC's, Urine 1 /HPF ()?? 07/07/2022 16:30 ? VIROLOGY COVID-19 by RT-PCR NEGATIVE ()?? 06/28/2022 15:50 COVID-19 PCR Specimen Source NASAL ()?? 07/04/2022 05:10 COVID-19 PCR Result NEGATIVE ()?? 07/04/2022 05:10 ? Microbiology ?? Blood Culture?? Completed?? Source: Blood Body Site: ?? Collected Dt/Tm: 06/28/2022 12:13 Last Updated Dt/Tm: 06/28/2022 12:13 ?SPECIMEN DESCRIPTION : BLOOD RFOREARMSPECIAL REQUESTS : NONECULTURE : NO GROWTH 5 DAYS.REPORT STATUS : FINAL 07/03/2022 Blood Culture #2?? Completed?? Source: Blood Body Site: ?? Collected Dt/Tm: 06/28/2022 12:13 Last Updated Dt/Tm: 06/28/2022 12:13 ?SPECIMEN DESCRIPTION : BLOOD ??LASPECIAL REQUESTS : NONECULTURE : NO GROWTH 5 DAYS.REPORT STATUS : FINAL 07/03/2022 COVID-19 (Novel Coronavirus), Rapid PCR?? Completed?? Source: Nasal Body Site: Nose Collected Dt/Tm: 06/28/2022 15:50 Last Updated Dt/Tm: 06/28/2022 16:54 Wound Superficial Culture W/ Gram Smear?? Completed?? Source: Ulcer Body Site: Sacrum Collected Dt/Tm: 06/28/2022 20:28 Last Updated Dt/Tm: 06/28/2022 22:28 ?SPECIMEN DESCRIPTION : ULCER SACRUMSPECIAL REQUESTS : NONEGRAM STAIN : 4+ POLYMORPHONUCLEAR LEUKOCYTES ?4+ GRAM NEGATIVE RODS ?2+ GRAM POSITIVE RODS ?2+ GRAM POSITIVE COCCICULTURE : No significant microorganisms isolated. ??Please consult the laboratory ?([id number]) within 7 days if more definitive studies are clinically ? indicated.REPORT STATUS : FINAL 07/01/2022 COVID-19 (2018 Novel Coronavirus) PCR?? Completed?? Source: Nasal Body Site: Nose Collected Dt/Tm: 07/01/2022 05:19 Last Updated Dt/Tm: 07/01/2022 18:49 COVID-19 (2018 Novel Coronavirus) PCR?? Completed?? Source: Nasal Body Site: Nose Collected Dt/Tm: 07/04/2022 05:05 Last Updated Dt/Tm: 07/04/2022 12:25 ? 35 minutes spent on discharge * Event Display: Provider Clarification Note Please click on pdf link to open report * Event Display: Provider Clarification Note Please click on pdf link to open report * BHSPowerscribe , CIS S: TRANSCRIDUNIA Cleveland MD, Marce: VERIFY Event Display: Result: Authored Date: [id number] PROCEDURE: CT Angio Abdomen Aorta Bilat IlioFem INDICATION: Hx of Present Illness: buttocks wound; Reason: Other:; Clinical Question(s): Abscess; osteomyelitis; Order Comment: RELEVANT CLINICAL INFORMATION/CLINICAL QUESTION: Abscess TECHNIQUE: CT angiography of the abdomen and lower extremities was performed using contiguous helical images from the diaphragm to the feet. 120 cc of Omnipaque 300 was administered intravenously. One mm axial images were reconstructed. Sagittal and coronal reformatted images were rendered. High resolution multiplanar, volume rendered and MIP images were created and used to evaluate the abdominal aorta and lower extremity arteries in multiple projections on an independent workstation, with permanent images saved to PACS. Automatic tube current modulation was used to optimize exposure parameters. RADIATION DOSE PARAMETERS: COMPARISON: 06/26/2022 FINDINGS: The abdominal aorta is nonaneurysmal. There is severe atherosclerosis of the infrarenal abdominal aorta with previous lower aorta and right iliac bypass and ALLEN graft. The right iliac component of the bypass is patent. There is a femorofemoral bypass which is completely nonopacified, occluded. A axillofemoral bypass graft is also present and is occluded very visualized. The celiac artery is with severe atherosclerosis at its origin and proximal extent. The vessel is with also severe atherosclerosis of the splenic artery branch. There is otherwise patency. The superior mesenteric artery is the superior mesenteric artery is patent. There is severe atherosclerosis at the origin of the superior mesenteric artery which is nearly occluded at series 401 image 31 with distal patency. Moderate to severe multifocal plaque in the mid to distal superior mesenteric artery. The inferior mesenteric artery is patent. The right renal artery is patent with severe multifocal atherosclerosis. The left renal artery is patent with severe multifocal atherosclerosis. 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 The common femoral artery is patent The superficial femoral artery is patent with graft The deep femoral artery is chronically occluded The popliteal artery is patent with flow from the femoral graft. There is severe atherosclerosis. The anterior tibial artery is with severe atherosclerosis and diminutive. This is not seen beyond the mid leg. This is not patent at the ankle. The posterior tibial artery is with severe atherosclerosis but with patency to the level of the ankle. The peroneal artery is with severe atherosclerosis but patency at the level of the ankle Left side: The common iliac artery is chronically occluded The external iliac artery is chronically occluded The internal iliac artery is chronically occluded The common femoral artery is chronically occluded The superficial femoral artery is occluded The deep femoral artery is occluded There is an above knee amputation. Collateral vessels are seen at the level of the thigh from gluteal collaterals, example seen extending from series 401 image 131 to 154. OTHER FINDINGS: Lung bases are not included. No acute abnormality of the liver, spleen, adrenal glands, or kidneys. There is no hydronephrosis. No peripancreatic stranding or free fluid. There is nondistention of the gallbladder which contains prior contrast material/sludge. The spleen is nonenlarged. The bowel loops are with no dilatation or evidence for obstruction. There is moderate colonic stoolburden. The urinary bladder is distended. Osseous findings include scoliotic curvature of the lumbar spine which is levoconvex with severe degenerative changes from L3 to S1. There are degenerative changes at the hip joints. There is mild cortical thinning with periosteal reaction seen asymmetrically at the left posterior ischium. Skin changes are seen at the level of the sacrum, particularly the right sacrum where thereis also focal mild asymmetric cortical thinning at series 401 image 104. There is small volume of fluid adjacent to the posterior left ischium series 401 image 129. A separate wound is also present at the posterior right upper thigh, extending to the intramusculararea with an area of skin defect of series 401 image 138. There is partially loculated appearance of fluid and irregular vessels in this area, example series 401 image 137. The fluid measures up to 4.0 x 3.1 cm it series 401 image 137. This is extending to the posterior inferior aspect of the rightissue which is with mildly irregular cortex. Skin changes are also present at the left heel, known area of ulcer. There is some periosteal reaction of the calcaneus at this level, series 401 image 372, for example. There were previously seen areas of peripherally enhancing fluid at the level of the mid to lower thighs, intramuscularly, which are less apparent. Mild areas of edema persists, particularly on the left at the level of the amputation, for example in the thigh muscles at series 401 image 173. There are findings supportive of avascular necrosis of the femoral heads. IMPRESSION: Right femoral to above-knee popliteal bypass is patent. Portion of the included left-sided axillofemoral bypass graft is occluded. Occluded femoral-femoral bypass graft. Chronic occlusion of vessels, as detailed above including of the iliac vessels bilaterally and the vessels in the left leg above the left above-knee amputation. There is 2 vessel patency to the right lower leg. The anterior tibial artery is occluded beyond itsproximal segment. Severe atherosclerosis but patency of the popliteal artery, posterior tibial artery, and peroneal artery. There is also severe visceral vascular atherosclerosis, with patency, of branch vessels of the upper abdomen. Findings which can be seen with early osteomyelitis at the posterior left ischium and right lower posterior ischium, which includes periosteal reaction, mild cortical thinning, and small volume of adjacent fluid at the posterior tuberosity on the left and fluid at the posterior upper right high wound (skin defect) on the right which is likely draining to the skin surface and measures up to 4.0 cm. There is also mild thinning at the right posterior sacral cortex which can represent additional area of osteomyelitis with overlying skin changes including diffuse edema, subcutaneous fluid (separatefrom that at the posterior right ishium to upper posterior right thigh), and subcutaneous air. Wound with also mild periosteal reaction at the site of known ulcer at the level of the posterior right calcaneus. Recommend direct examination of these sites for wound -- and if open wound and needed then clinically probing. MRI can also be considered to evaluate extent of osseous involvement, if clinically warranted/appropriate. Urinary bladder is distended. Patient may need to void. 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 There are changes of possible myositis at the left lower thigh -- from the CT of 04/30 these appear decreased but persist with loss of fat planes between muscles at the level of the mid to lower left thigh. WSN: [id number] Ordering Physician: Dorota Comer Dictated By: Marce Cleveland MD Dictated Date/Time: 06/28/22 3:23 pm Reviewed By: Marce Cleveland MD Signed By: Marce Cleveland MD Signed Date/Time: 06/28/22 3:23 pm Transcribed By: ROBERTO Transcribed Date/Time: 06/28/22 3:14 pm Patient Care team information Care Team Personnel [...] RN Member Role: Primary Care Nurse Name: Meagan DILL, Tony Gaines Position: [facility] Primary Care Physician Member Role: PCP Address: Address: [address] [place] [id number]- Name: Rachel Brown RN Position: [facility] RN Member Role: Primary Care Nurse Name: Lucia Denton RN Position: [facility] RN Member Role: Primary Care Nurse Name: Chelita Hernandez RN Position: [facility] RN Member Role: Primary Care Nurse Name: Donald Purcell RN Position: [facility] RN Member Role: Primary Care Nurse Name: Janell Garcias RNLynette Position: [facility] RN Member Role: Primary Care Nurse Name: Batsheva Herring RN Position: [facility] AMB Nurse Member Role: Primary Care Nurse Name: Barbara Post RN Position: [facility] RN Member Role: Primary Care Nurse Name: Roxana Hutchison RN Position: [facility] RN Member Role: Primary Care Nurse Name: Mary Mckeon RN Position: [facility] AMB Nurse Member Role: Primary Care Nurse Name: LimaTono Virk Attending Position: [facility] ED Medicine MD Name: Madhavi Herman Position: [facility] ED OA Charge Member Role: ED Associate Name: Sherie Naik RN Position: [facility] ED RN W/OE and Tasks Member Role: Patient Care Provider Name: Valentine Hooper Position: [facility] ED TA [facility] Member Role: Patient Care Provider Care Team Related Persons Name: FANY CYR Address: home [address] [place] [address] Name: KITTY CYR Address: [place] [address]
--- OUTSIDE RECORDS SUMMARY | 2023-04-27 13:37 | XMS_ITS | Continuity of Care Document ---
Author Name Unknown Organization [facility] Address [address] [place] [address]- Care Team Providers Care Suppression Crew Leader Name Role Phone Tony Rhodes MD Primary Care Physician [phone] Encounter [facility] Date(s): 05/31/22 - 06/30/22 [facility] Adult [address] [place] [address]- Allergies, Adverse Reactions, Alerts Substance Reaction Severity [...] Pneumococcal Vacc (oldterm) 05/12/99 Given 1Location History: [facility] 2Admin Note: VIS GIVEN 3Location History: [facility] 4Admin Note: GIVEN BY ANDIE BOWERS BY JUDAH 5Admin Note: GIVEN IN CLINIC SHAM 6Admin Note: [employer] [facility] 7Admin Note: H1N1 Medications acetaminophen 325 mg [...] 5 Refills, Maintenance, 07/29/19 13:25:00 EDT, Powder, [facility], 167, cm, 04/30/19 15:55:00 EST, Height, 70.2, kg, 07/31/18 6:33:00EDT, Dry Weight Start Date: 07/29/19 Status: Ordered amiodarone 200 mg oral tablet 2, tablet, By Mouth, 2 times a day, # 120 tablet, Refills 6, Maintenance, 02/18/22 9:48:00 EDT, Route to Pharmacy Electronically, [facility], 172.7, cm, 01/18/22 14:53:00 EDT, Height, 68.2, [...] tablet, 2 Refills, Maintenance, 02/18/22 9:48:00 EDT, [facility], 172.7, cm, 01/18/22 14:53:00 EDT, Height, [...] 25 tablet, 0 Refills, 10/18/20 16:42:00 EDT, [facility], 167, cm, 08/21/20 14:59:00 EDT, Height [...] tablet, Refills 11, Route to Pharmacy Electronically, [facility], 167, cm, 08/20/21 12:32:00 EDT, Height [...] Care Nurse Name: Rae Vigil RN Position: [facility] RN Member Role: Primary Care Nurse Name: Tony Rhodes MD Position: [facility] Primary Care Physician Member Role: PCP Address: Address: [address] [place] [id number]- Name: Rachel Brown RN Position: [facility] RN Member Role: Primary Care Nurse Name: Lucia Denton RN Position: [facility] RN Member Role: Primary Care Nurse Name: Chelita Hernandez RN Position: [facility] RN Member Role: Primary Care Nurse Name: Elizabeth Taylor Position: [facility] RN Member Role: Primary Care Nurse Name: Donald Purcell RN Position: [facility] RN Member Role: Primary Care Nurse Name: Lynette Wooten RN Position: [facility] RN Member Role: Primary Care Nurse Name: Batsheva Herring RN Position: [facility] AMB Nurse Member Role: Primary Care Nurse Name: Roxana Hutchison RN Position: [facility] RN Member Role: Primary Care Nurse Name: Mary Mckeon RN Position: [facility] AMB Nurse Member Role: Primary Care Nurse Care Team Related Persons Name: FANY CYR Address: home [address] [place] [address] Name: KITTY CYR Address: [place] [address]
--- OUTSIDE RECORDS SUMMARY | 2023-04-27 13:37 | XMS_ITS | Continuity of Care Document ---
Author Name Unknown Organization [facility] Address [address] [place] [address]- Care Team Providers Care Civil Design Technician Name Role Phone Tony Rhodes MD Primary Care Physician Encounter [facility] Date(s): 02/26/22 - 05/08/22 [facility] [address] [place] [address]- Attending Physician: Kodak Cherry MD Admitting Physician: Kodak Cherry MD Allergies, Adverse Reactions, Alerts Substance Reaction [...] Pneumococcal Vacc (oldterm) 05/12/99 Given 1Location History: [facility] 2Admin Note: VIS GIVEN 3Location History: [facility] 4Admin Note: GIVEN BY ANDIE BOWERS BY JUDAH 5Admin Note: GIVEN IN CLINIC SHAM 6Admin Note: [facility] [facility] 7Admin Note: H1N1 Medications acetaminophen [...] 5 Refills, Maintenance, 07/29/19 13:25:00 EDT, Powder, [facility], 167, cm, 04/30/19 15:55:00 EST, Height, 70.2, kg, 07/31/18 6:33:00EDT, Dry Weight Start Date: 07/29/19 Status: Ordered amiodarone 200 mg oral tablet 2, tablet, By Mouth, 2 times a day, # 120 tablet, Refills 6, Maintenance, 02/18/22 9:48:00 EDT, Route to Pharmacy Electronically, [facility], 172.7, cm, 01/18/22 14:53:00 EDT, Height, [...] 3 Refills, Soft Stop, 09/05/21 15:18:00 EDT, [facility], 167, cm, 08/20/21 12:32:00 EDT, Height [...] 02/18/22 9:47:00 EDT, Route to Pharmacy Electronically, [facility], 172.7, cm, 01/18/22 14:53:00 EDT, Height, [...] 0 Refills, Maintenance, 02/25/22 12:41:00 EDT, Tablet, [facility], 168, cm, 02/25/22 12:11:00 EDT, Height, [...] 25 tablet, 0 Refills, 10/18/20 16:42:00 EDT, [facility], 167, cm, 08/21/20 14:59:00 EDT, Height Start Date: 10/18/20 Status: Ordered omeprazole 20 mg oral delayed release tablet 1 tablet = 20 mg, By Mouth, Daily in AM, Maintenance, 09/21/21 16:06:00 EDT Start Date: 09/21/21 Status: Ordered pentoxifylline 400 mg oral tablet, extended release 1, tablet, By Mouth, 3 times a day, # 90 tablet, Refills 11, Route to Pharmacy Electronically, [facility], 167, cm, 08/20/21 12:32:00 EDT, Height [...] Care Nurse Name: Morena Abraham RN Position: [facility] RN Member Role: Primary Care Nurse Name: Jena Barron RN Position: [facility] RN Member Role: Primary Care Nurse Name: Ana Maria Gonzalez RN Position: [facility] RN Member Role: Primary Care Nurse Name: Rae Vigil RN Position: [facility] ED RN W/OE and Tasks Member Role: Primary Care Nurse Name: Tony Rhodes MD Position: [facility] Primary Care Physician Member Role: PCP Address: Address: [address] [place] [id number] Name: Rachel Brown RN Position: [facility] RN Member Role: Primary Care Nurse Name: Lucia Denton RN Position: [facility] RN Member Role: Primary Care Nurse Name: Chelita Hernandez RN Position: [facility] RN Member Role: Primary Care Nurse Name: Elizabeth Taylor Position: [facility] RN Member Role: Primary Care Nurse Name: Batsheva Herring RN Position: [facility] AMB Nurse Member Role: Primary Care Nurse Name: Roxana Hutchison RN Position: [facility] RN Member Role: Primary Care Nurse Name: Mary Mckeon RN Position: [facility] AMB Nurse Member Role: Primary Care Nurse Care Team Related Persons Name: FANY CYR Address: home [address] [place] [address] Name: KITTY CYR Address: [place] [address]
--- OUTSIDE RECORDS SUMMARY | 2023-04-27 13:37 | XMS_ITS | Continuity of Care Document ---
Author Name Unknown Organization [facility] Address [address] [place] [address]- Care Team Providers Care Packager Machine Name Role Phone Meagan DILL, Tony Gaines Primary Care Physician [phone] [facility]counter [facility] Date(s): 08/06/22 - 09/06/22 [facility] Adult [address] [place] [address]- Attending Physician: Diane DILL, Refugio Flores Referring Physician: Tony Rhodes MD Allergies, Adverse Reactions, Alerts Substance Reaction Severity Status Vioxx Hypertension Mild Active Immunizations Given and Recorded Vaccine Date Status Refusal Reason [id number] bivalent booster vax 03/11/22 Recorded influenza virus [...] Pneumococcal Vacc (oldterm) 05/12/99 Given 1Location History: [facility] [place] 2Admin Note: VIS GIVEN 3Location History: [facility] [place] 4Admin Note: GIVEN BY JOHAN BOWERS BY JUDAH 5Admin Note: GIVEN IN CLINIC SHAM 6Admin Note: [employer] [facility] 7Admin Note: H1N1 Medications acetaminophen 325 mg [...] Gm, 0 Refills, Maintenance, 08/01/22 15:26:00 EDT, [facility], Partial fill upon patient request if the prescription is for a schedule II opioid drug., 170, cm, 08/01/22 14:54:00 EDT, Height, 45.7, kg, 03/0... Start Date: 08/01/22 Status: Ordered albuterol 90 mcg/inh inhalation powder 2 puffs, Inhalation, Every 4 hours, PRN as needed, # 1 each, 5 Refills, Maintenance, 07/29/19 13:25:00 EDT, Powder, [facility], 167, cm, 04/30/19 15:55:00 EST, Height, [...] 1 Refills, Soft Stop, 09/04/22 16:59:00 EDT, [facility], 170, cm, 08/01/22 14:54:00 EDT, Height, 45.7, kg, 07/12/22 22:04:00 EST, DryWeight Start Date: 09/04/22 Status: Ordered cloNIDine 0.1 mg oral tablet 0.1 mg, 1, tablet, By Mouth, 2 times a day, # 60 tablet, Refills 2, Tot. Refills 2, Maintenance, 09/05/22 13:27:00 EDT, Route to Pharmacy Electronically, [facility], Partial fill upon patient request if the prescription is for a schedule II opioi... Start Date: 09/05/22 Status: Ordered Colace sodium 100 mg oral capsule 100 mg, 1, capsule, By Mouth, 2 times a day, # 60 capsule, Refills 0, Tot. Refills 0, Maintenance, 06/24/22 16:00:00 EST, Route to Pharmacy Electronically, [facility], Partial fill upon patient request if the prescription is for a schedule II opi... Start Date: 06/24/22 Status: Ordered collagenase topical 250 u/gm ointment 1 application, Topically, Daily, apply moist dressing over the santyl, triad cream on surrouding skin and DSD over all, # 90 Gm, 0 Refills, Maintenance, 07/08/22 13:04:00 EST, Ointment, [facility], Partial fill upon patient request if th... Start Date: 07/08/22 Status: Ordered Eliquis 5 mg oral tablet 1 tablet = 5 mg, By Mouth, 2 times a day, # 60 tablet, 2 Refills, Maintenance, 09/05/22 13:34:00 EDT, Tablet, [facility], 170, cm, 08/01/22 14:54:00 EDT, Height, 45.7, kg, 07/12/22 22:04:00 EST,Dry Weight Start Date: 09/05/22 Stop Date: 12/04/22 Status: Ordered Keppra 500 mg oral tablet 1 tablet = 500 mg, By Mouth, 2 times a day, # 60 tablet, 2 Refills, Maintenance, 09/05/22 13:26:00 EDT, Tablet, [facility], Partial fill upon patient request if [...] tablet, 2 Refills, Maintenance, 02/18/22 9:48:00 EDT, [facility], 172.7, cm, 01/18/22 14:53:00 EDT, Height, 68.2, kg, 09/21/21 17:43:00 EDT, Dry Weight Start Date: 02/18/22 Status: Ordered MiraLax oral powder for reconstitution = 17 Gm, By Mouth, Daily, dissolve in water before taking, # 255 Gm, 0 Refills, Maintenance, 07/08/22 9:59:00 EST, REC Powder, [facility], Partial fill upon patient [...] 07/08/22 9:58:00 EST, Route to Pharmacy Electronically, [facility] 3, Partial fill upon... Start Date: 07/08/22 Status: Ordered pentoxifylline 400 mg oral tablet, extended release 1, tablet, By Mouth, 3 times a day, # 90 tablet, Refills 11, Route to Pharmacy Electronically, [facility], 167, cm, 08/20/21 12:32:00 EDT, Height [...] Team Personnel Name: Morena Abraham RN Position: [facility] RN Member Role: Primary Care Nurse Name: [...] Rhodes MD Position: [facility] Primary Care Physician Member Role: PCP Address: Address: [address] [place] [address]- Name: Milad Rodríguez Position: [facility] [...] Related Persons Name: FANY CYR Address: home [address] [place] [address] Name: KITTY CYR Address: [place] [address]
--- OUTSIDE RECORDS SUMMARY | 2023-04-27 13:38 | XMS_ITS | Continuity of Care Document ---
Author Name Unknown Organization [facility] Address [address] [place] [address]- Care Team Providers Care Interior Block Wirer Name Role Phone Tony Rhodes MD Primary Care Physician [phone] [facility]counter [facility] Date(s): 05/10/22 - 06/13/22 [facility] [address] [place] [address]- Allergies, Adverse Reactions, Alerts Substance Reaction Severity [...] Pneumococcal Vacc (oldterm) 05/12/99 Given 1Location History: [facility] 2Admin Note: VIS GIVEN 3Location History: [facility] 4Admin Note: GIVEN BY ANDIE DOC BY JUDAH 5Admin Note: GIVEN IN CLINIC SHAM 6Admin Note: [employer] [facility] 7Admin Note: H1N1 Medications acetaminophen 325 [...] 5 Refills, Maintenance, 07/29/19 13:25:00 EDT, Powder, [facility], 167, cm, 04/30/19 15:55:00 EST, Height, 70.2, kg, 07/31/18 6:33:00EDT, Dry Weight Start Date: 07/29/19 Status: Ordered amiodarone 200 mg oral tablet 2, tablet, By Mouth, 2 times a day, # 120 tablet, Refills 6, Maintenance, 02/18/22 9:48:00 EDT, Route to Pharmacy Electronically, [facility], 172.7, cm, 01/18/22 14:53:00 EDT, Height, [...] 3 Refills, Soft Stop, 09/05/21 15:18:00 EDT, [facility], 167, cm, 08/20/21 12:32:00 EDT, Height [...] 02/18/22 9:47:00 EDT, Route to Pharmacy Electronically, [facility], 172.7, cm, 01/18/22 14:53:00 EDT, Height, [...] tablet, 2 Refills, Maintenance, 02/18/22 9:48:00 EDT, [facility], 172.7, cm, 01/18/22 14:53:00 EDT, Height, [...] 25 tablet, 0 Refills, 10/18/20 16:42:00 EDT, [facility], 167, cm, 08/21/20 14:59:00 EDT, Height Start Date: 10/18/20 Status: Ordered omeprazole 20 mg oral delayed release tablet 1 tablet = 20 mg, By Mouth, Daily in AM, Maintenance, 09/21/21 16:06:00 EDT Start Date: 09/21/21 Status: Ordered pentoxifylline 400 mg oral tablet, extended release 1, tablet, By Mouth, 3 times a day, # 90 tablet, Refills 11, Route to Pharmacy Electronically, [facility], 167, cm, 08/20/21 12:32:00 EDT, Height [...] Personnel Name: Ana Maria Cruz RN Position: [facility] RN Member Role: Primary Care Nurse Name: Morena Abraham RN Position: S RN Member Role: Primary Care Nurse Name: Jena Barron RN Position: [facility] RN Member Role: Primary Care Nurse Name: Ana Maria Gonzalez RN Position: [facility] RN Member Role: Primary Care Nurse Name: Rae Vigil RN Position: [facility] ED RN W/OE and Tasks Member Role: Primary Care Nurse Name: Tony Rhodes MD Position: [facility] Primary Care Physician Member Role: PCP Address: Address: [address] [place] [address]- Name: Rachel Brown RN Position: [facility] RN Member Role: Primary Care Nurse Name: Lucia Denton RN Position: [facility] RN Member Role: Primary Care Nurse Name: Chelita Hernandez RN Position: [facility] RN Member Role: Primary Care Nurse Name: Elizabeth Taylor Position: [facility] RN Member Role: Primary Care Nurse Name: Batsheva Herring RN Position: [facility] AMB Nurse Member Role: Primary Care Nurse Name: Roxana Hutchison RN Position: [facility] RN Member Role: Primary Care Nurse Name: Mary Mckeon RN Position: [facility] AMB Nurse Member Role: Primary Care Nurse Care Team Related Persons Name: KLARISSA FANY Address: home [address] [place] [address] Name: KLARISSA KITTY Address: [place] [address]
--- OUTSIDE RECORDS SUMMARY | 2023-04-27 13:38 | XMS_ITS | Continuity of Care Document ---
Author Name Unknown Organization [facility] Address [address] [place] [address]- Care Team Providers Care Sausage Cutter Name Role Phone Tony Rhodes MD Primary Care Physician En[place] [facility] Date(s): 09/12/22 - 09/19/22 [facility] [address] [place] [address]- Attending Physician: Misty PATRICK, Mary Cruz Referring Physician: Tony Rhodes MD Allergies, Adverse Reactions, Alerts Substance Reaction Severity Status Vioxx Hypertension Mild Active Immunizations Given and Recorded Vaccine Date Status Refusal Reason [id number] bivalent booster vax 03/11/22 Recorded influenza virus [...] 05/12/99 Given 1Location History: [facility] [place] 2Admin Note: VIS GIVEN 3Location History: [facility] 4Admin Note: GIVEN BY JOHAN BOWERS BY JUDAH 5Admin Note: GIVEN IN CLINIC SHAM 6Admin Note: [employer] [facility] 7Admin Note: H1N1 Medications acetaminophen 325 mg [...] Gm, 0 Refills, Maintenance, 08/01/22 15:26:00 EDT, [facility], Partial fill upon patient request if the prescription is for a schedule II opioid drug., 170, cm, 08/01/22 14:54:00 EDT, Height, 45.7, kg, 03... Start Date: 08/01/22 Status: Ordered albuterol 90 mcg/inh inhalation powder 2 puffs, Inhalation, Every 4 hours, PRN as needed, # 1 each, 5 Refills, Maintenance, 07/29/19 13:25:00 EDT, Powder, [facility], 167, cm, 04/30/19 15:55:00 EST, Height, [...] 1 Refills, Soft Stop, 09/04/22 16:59:00 EDT, [facility], 170, cm, 08/01/22 14:54:00 EDT, Height, 45.7, kg, 07/12/22 22:04:00 EST, DryWeight Start Date: 09/04/22 Status: Ordered cloNIDine 0.1 mg oral tablet 0.1 mg, 1, tablet, By Mouth, 2 times a day, # 60 tablet, Refills 2, Tot. Refills 2, Maintenance, 09/05/22 13:27:00 EDT, Route to Pharmacy Electronically, [facility], Partial fill upon patient request if the prescription is for a schedule II opioi... Start Date: 09/05/22 Status: Ordered Colace sodium 100 mg oral capsule 100 mg, 1, capsule, By Mouth, 2 times a day, # 60 capsule, Refills 0, Tot. Refills 0, Maintenance, 06/24/22 16:00:00 EST, Route to Pharmacy Electronically, [facility], Partial fill upon patient request if the prescription is for a schedule II opi... Start Date: 06/24/22 Status: Ordered collagenase topical 250 u/gm ointment 1 application, Topically, Daily, apply moist dressing over the santyl, triad cream on surrouding skin and DSD over all, # 90 Gm, 0 Refills, Maintenance, 07/08/22 13:04:00 EST, Ointment, [facility] [place] [facility], Partial fill upon patient request if th... Start Date: 07/08/22 Status: Ordered Eliquis 5 mg oral tablet 1 tablet = 5 mg, By Mouth, 2 times a day, # 60 tablet, 2 Refills, Maintenance, 09/05/22 13:34:00 EDT, Tablet, [facility], 170, cm, 08/01/22 14:54:00 EDT, Height, 45.7, kg, 07/12/22 22:04:00 EST,Dry Weight Start Date: 09/05/22 Stop Date: 12/04/22 Status: Ordered Keppra 500 mg oral tablet 1 tablet = 500 mg, By Mouth, 2 times a day, # 60 tablet, 2 Refills, Maintenance, 09/05/22 13:26:00 EDT, Tablet, [facility], Partial fill upon [...] tablet, 2 Refills, Maintenance, 02/18/22 9:48:00 EDT, [facility], 172.7, cm, 01/18/22 14:53:00 EDT, Height, 68.2, kg, 09/21/21 17:43:00 EDT, Dry Weight Start Date: 02/18/22 Status: Ordered MiraLax oral powder for reconstitution = 17 Gm, By Mouth, Daily, dissolve in water before taking, # 255 Gm, 0 Refills, Maintenance, 07/08/22 9:59:00 EST, REC Powder, [facility] [place] [facility], Partial fill upon patient request if [...] 07/08/22 9:58:00 EST, Route to Pharmacy Electronically, [facility] [place] [facility], Partial fill upon... Start Date: 07/08/22 Status: Ordered pentoxifylline 400 mg oral tablet, extended release 1, tablet, By Mouth, 3 times a day, # 90 tablet, Refills 11, Route to Pharmacy Electronically, [facility], 167, cm, 08/20/21 12:32:00 EDT, Height [...] oldest [Reference Range]: 1 Height 170 cm (09/12/22 12:53 PM) Social History Social History Type Response Smoking Status Current every day sm oker; Other: 1-1/2 packs of cigarettes daily; entered on: 10/23/17 Sex Patient Care team information Care Team Personnel Name: Morena Abraham RN Position: [facility] RN Member Role: Primary Care Nurse Name: Jena Barron RN Position: [facility] RN Member Role: Primary Care Nurse Name: Faith Cheek RN Position: [facility] RN Member Role: Primary Care Nurse Name: Rodney He RN Position: [facility] RN Member Role: Primary Care Nurse Name: Barbara Snider RN Position: [facility] SN RN Member Role: Primary Care Nurse Name: Ana Maria Gonzalez RN Position: [facility] RN Member Role: Primary Care Nurse Name: Rae Vigil RN Position: [facility] RN Member Role: Primary Care Nurse Name: Johan Montes RN Position: [facility] RN Member Role: Primary Care Nurse Name: Tony Rhodes MD Position: [facility] Primary Care Physician Member Role: PCP Address: Address: [address] [place] [address]- Name: Milad Rodríguez Position: [facility] RN Member Role: Primary Care Nurse Name: Rachel Brown RN Position: S RN Member Role: Primary Care Nurse Name: Lucia Denton RN Position: [facility] RN Member Role: Primary Care Nurse Name: Bill Velazquez RN Position: [facility] RN Member Role: Primary Care Nurse Name: Chelita Hernandez RN Position: [facility] RN Member Role: Primary Care Nurse Name: Donald Purcell RN Position: [facility] RN Member Role: Primary Care Nurse Name: Shameka Hicks RN Position: [facility] RN Member Role: Primary Care Nurse Name: Lynette Wooten RN Position: [facility] RN Member Role: Primary Care Nurse Name: Batsheva Herring RN Position: [facility] OB RN Member Role: Primary Care Nurse Name: Roxana Hutchison RN Position: [facility] RN Member Role: Primary Care Nurse Name: David Mensah RN Position: [facility] RN Member Role: Primary Care Nurse Name: Mary Mckeon RN Position: [facility] AMB Nurse Member Role: Primary Care Nurse Care Team Related Persons Name: FANY CYR Address: home [address] [place] [id number] Name: KITTY [place]: [place] [address]
--- OUTSIDE RECORDS SUMMARY | 2023-04-27 13:38 | XMS_ITS | Continuity of Care Document ---
Author Name Unknown Organization [facility] [place] Address [address] [place] [address]- Care Team Providers Care Sinter Feeder Name Role Phone Tony Rhodes MD Primary Care Physician [phone] [facility]23 - 03/13/23 [facility] Adult [address] [place] [address]- Allergies, Adverse Reactions, Alerts Substance Reaction Severity Status Vioxx Hypertension Mild Active Immunizations Given and Recorded Vaccine Date Status Refusal Reason [id number] bivalent booster vax 03/11/22 Recorded influenza virus [...] (oldterm) 05/12/99 Given 1Location History: [facility] 2Admin Note: VIS GIVEN 3Location History: [facility] 4Admin Note: GIVEN BY JOHAN BOWERS BY JUDAH 5Admin Note: GIVEN IN CLINIC [facility]AM 6Admin Note: [employer] [facility] 7Admin Note: H1N1 Medications acetaminophen 325 [...] Name: Morena Abraham RN Position: [facility] SN RN Member Role: Primary Care Nurse Name: Jena Barron RN Position: [facility] RN Member Role: Primary Care Nurse Name: Faith Cheek RN Position: [facility] RN Member Role: Primary Care Nurse Name: Rodney He RN Position: [facility] RN Member Role: Primary Care Nurse Name: Barbara Snider RN Position: [facility] SN RN Member Role: Primary Care Nurse Name: Ana Maria Gonzalez RN Position: [facility] RN Member Role: Primary Care Nurse Name: Rae Vigil RN Position: [facility] RN Member Role: Primary Care Nurse Name: Johan Montes RN Position: [facility] RN Member Role: Primary Care Nurse Name: Tony Rhodes MD Position: [facility] Physician - Primary Care Member Role: PCP Address: Address: [address] [place] [address]- Name: Rachel Brown RN Position: [facility] RN Member Role: Primary Care Nurse Name: Lucia Denton RN Position: S RN Member Role: Primary Care Nurse Name: Quin Oliveira RN Position: [facility] RN Member Role: Primary Care Nurse Name: Chelita Hernandez RN Position: [facility] RN Member Role: Primary Care Nurse Name: Lynette Leon RN Position: [facility] RN Member Role: Primary Care Nurse Name: Donald Purcell RN Position: [facility] RN Member Role: Primary Care Nurse Name: Shameka Hicks RN Position: [facility] RN Member Role: Primary Care Nurse Name: Lynette Wooten RN Position: [facility] RN Member Role: Primary Care Nurse Name: Batsheva Herring RN Position: [facility] OB RN Member Role: Primary Care Nurse Name: Roxana Hutchison RN Position: [facility] AMB Nurse Member Role: Primary Care Nurse Name: David Mensah RN Position: [facility] RN Member Role: Primary Care Nurse Name: Mary Mckeon RN Position: [facility] AMB Nurse Member Role: Primary Care Nurse Care Team Related Persons Name: FANY CYR Address: [address] [address] Name: KITTY CYR
--- OUTSIDE RECORDS SUMMARY | 2023-04-27 13:38 | XMS_ITS | Continuity of Care Document ---
Author Name Unknown Organization [facility] [place] Address [address] [place] [address]- Care Team Providers Care Maintenance Plumber Name Role Phone Tony Rhodes MD Primary Care Physician [phone] [facility] 01/20/23 - 02/19/23 [facility] Adult [address] [place] [address]- Allergies, Adverse Reactions, Alerts Substance Reaction Severity Status Vioxx Hypertension Mild Active Immunizations Given and Recorded Vaccine Date Status Refusal Reason [id number] bivalent booster vax 03/11/22 Recorded influenza virus [...] (oldterm) 05/12/99 Given 1Location History: [facility] 2Admin Note: VIS GIVEN 3Location History: [facility] 4Admin Note: GIVEN BY JOHAN BOWERS BY JUDAH 5Admin Note: GIVEN IN CLINIC SHAM 6Admin Note: [employer] [facility] 7Admin Note: H1N1 Medications [...] Team Personnel Name: Morena Abraham RN Position: [facility] SN RN Member Role: Primary Care Nurse Name: Jena Barron RN Position: [facility] RN Member Role: Primary Care Nurse Name: Faith Cheek RN Position: [facility] RN Member Role: Primary Care Nurse Name: Rodney He RN Position: [facility] RN Member Role: Primary Care Nurse Name: Barbara Snider RN Position: [facility] SN RN Member Role: Primary Care Nurse Name: Ana Maria Gonzalez RN Position: [facility] RN Member Role: Primary Care Nurse Name: Rae Vigil RN Position: [facility] RN Member Role: Primary Care Nurse Name: Johan Montes RN Position: [facility] RN Member Role: Primary Care Nurse Name: Tony Rhodes MD Position: [facility] Physician - Primary Care Member Role: PCP Address: Address: [address] [place] [address]- Name: Rachel Brown RN Position: [facility] RN Member Role: Primary Care Nurse Name: Lucia Denton RN Position: S RN Member Role: Primary Care Nurse Name: Quin Oliveira RN Position: [facility] RN Member Role: Primary Care Nurse Name: Chelita Hernandez RN Position: [facility] RN Member Role: Primary Care Nurse Name: Lynette Leon RN Position: [facility] RN Member Role: Primary Care Nurse Name: Donald Purcell RN Position: [facility] RN Member Role: Primary Care Nurse Name: Shameka Hicks RN Position: [facility] RN Member Role: Primary Care Nurse Name: Lynette Wooten RN Position: [facility] RN Member Role: Primary Care Nurse Name: Batsheva Herring RN Position: [facility] OB RN Member Role: Primary Care Nurse Name: Roxana Hutchison RN Position: [facility] AMB Nurse Member Role: Primary Care Nurse Name: David Mensah RN Position: [facility] RN Member Role: Primary Care Nurse Name: Mary Mckeon RN Position: [facility] AMB Nurse Member Role: Primary Care Nurse Care Team Related Persons Name: FANY CYR Address: [address] [address] Name: KITTY CYR
--- OUTSIDE RECORDS SUMMARY | 2023-04-27 13:38 | XMS_ITS | Continuity of Care Document ---
Author Name Unknown Organization [facility] Address [address] [place] [address]- Care Team Providers Care Cessation Systems Outreach Specialist Name Role Phone Meagan DILL, Tony Gaines Primary Care Physician [facility]s): 12/02/22 - 01/01/23 [facility] [address] [place], [place] [address] Allergies, Adverse Reactions, Alerts Substance Reaction Severity Status Vioxx Hypertension Mild Active Immunizations Given and Recorded Vaccine Date Status Refusal Reason [id number] bivalent booster vax 03/11/22 Recorded influenza virus [...] (oldterm) 05/12/99 Given 1[facility] 2Admin Note: VIS GIVEN 3Location History: [facility] 4Admin Note: GIVEN BY JOHAN BOWERS BY JUDAH 5Admin Note: GIVEN IN CLINIC SHAM 6Admin Note: [employer] [facility] 7Admin Note: H1N1 Medications acetaminophen 325 [...] Gm, 0 Refills, Maintenance, 11/21/22 14:00:00 EDT, [facility], Partial fill upon patient request if [...] Team Personnel Name: Morena Abraham RN Position: [facility] SN RN Member Role: Primary Care Nurse Name: Jena Barron RN Position: [facility] RN Member Role: Primary Care Nurse Name: Faith Cheek RN Position: [facility] RN Member Role: Primary Care Nurse Name: Rodney He RN Position: [facility] RN Member Role: Primary Care Nurse Name: Barbara Snider RN Position: [facility] SN RN Member Role: Primary Care Nurse Name: Ana Maria Gonzalez RN Position: [facility] RN Member Role: Primary Care Nurse Name: Rae Vigil RN Position: [facility] RN Member Role: Primary Care Nurse Name: Johan Montes RN Position: [facility] RN Member Role: Primary Care Nurse Name: Tony Rhodes MD Position: [facility] Physician - Primary Care Member Role: PCP Address: Address: [address] [place] [id number] Name: Rachel Brown RN Position: [facility] RN Member Role: Primary Care Nurse Name: Lucia Denton RN Position: [facility] RN Member Role: Primary Care Nurse Name: Quin Oliveira RN Position: [facility] RN Member Role: Primary Care Nurse Name: Chelita Hernandez RN Position: [facility] RN Member Role: Primary Care Nurse Name: Lynette Leon RN Position: [facility] RN Member Role: Primary Care Nurse Name: Donald Purcell RN Position: [facility] RN Member Role: Primary Care Nurse Name: Shameka Hicks RN Position: [facility] RN Member Role: Primary Care Nurse Name: Lynette Wooten RN Position: [facility] RN Member Role: Primary Care Nurse Name: Batsheva Herring RN Position: [facility] OB RN Member Role: Primary Care Nurse Name: Roxana Hutchison RN Position: [facility] AMB Nurse Member Role: Primary Care Nurse Name: David Mensah RN Position: [facility] RN Member Role: Primary Care Nurse Name: Mary Mckeon RN Position: [facility] AMB Nurse Member Role: Primary Care Nurse Care Team Related Persons Name: FANY CYR Address: [address] [address] Name: KITTY CYR
--- OUTSIDE RECORDS SUMMARY | 2023-04-27 13:38 | XMS_ITS | Continuity of Care Document ---
Author Name Unknown Organization [facility] Address [address] [place] [address]- Care Team Providers Care Chief Technician X Ray Name Role Phone Meagan DILL, Tony Gaines Primary Care Physician [facility] 06/24/22 - 07/01/22 [facility] [address] [place], [place] [address] Attending Physician: Cary Swanson NP Admitting Physician: Cary Swanson NP Referring Physician: Tony Rhodes MD Allergies, Adverse [...] Pneumococcal Vacc (oldterm) 05/12/99 Given 1Location History: [facility] 2Admin Note: VIS GIVEN 3Location History: [facility] 4Admin Note: GIVEN BY ANDIE BOWERS BY JUDAH 5Admin Note: GIVEN IN CLINIC SHAM 6Admin Note: [employer] [facility] 7Admin Note: H1N1 Medications acetaminophen [...] 5 Refills, Maintenance, 07/29/19 13:25:00 EDT, Powder, [facility], 167, cm, 04/30/19 15:55:00 EST, Height, 70.2, kg, 07/31/18 6:33:00EDT, Dry Weight Start Date: 07/29/19 Status: Ordered amiodarone 200 mg oral tablet 2, tablet, By Mouth, 2 times a day, # 120 tablet, Refills 6, Maintenance, 02/18/22 9:48:00 EDT, Route to Pharmacy Electronically, [facility], 172.7, cm, 01/18/22 14:53:00 EDT, Height, [...] 02/18/22 9:47:00 EDT, Route to Pharmacy Electronically, [facility], 172.7, cm, 01/18/22 14:53:00 EDT, Height, 68.2, kg, 09/21/21 17:43:00 EDT, Dry Weight Start Date: 02/18/22 Status: Ordered Colace sodium 100 mg oral capsule 100 mg, 1, capsule, By Mouth, 2 times a day, # 60 capsule, Refills 0, Tot. Refills 0, Maintenance, 06/24/22 16:00:00 EST, Route to Pharmacy Electronically, [facility], Partial fill upon patient request if [...] 0 Refills, Maintenance, 02/25/22 12:41:00 EDT, Tablet, [facility], 168, cm, 02/25/22 12:11:00 EDT, Height, [...] tablet, 2 Refills, Maintenance, 02/18/22 9:48:00 EDT, [facility], 172.7, cm, 01/18/22 14:53:00 EDT, Height, [...] 25 tablet, 0 Refills, 10/18/20 16:42:00 EDT, [facility], 167, cm, 08/21/20 14:59:00 EDT, Height [...] 06/24/22 16:01:00 EST, Route to Pharmacy Electronically, [facility], Partial fill upon patient... Start Date: 06/24/22 Status: Ordered pentoxifylline 400 mg oral tablet, extended release 1, tablet, By Mouth, 3 times a day, # 90 tablet, Refills 11, Route to Pharmacy Electronically, [facility], 167, cm, 08/20/21 12:32:00 EDT, Height [...] oldest [Reference Range]: 1 Height 170 cm (06/24/22 3:13 PM) Weight 65.77 kg (06/24/22 3:13 PM) Oxygen Saturation [94-100 %] 88 % *L* (06/24/22 3:13 PM) Pulse Rate [55-90 bpm] 72 bpm (06/24/22 3:13 PM) Body Mass Index [18.5-24.99 kg/m2] 22.76 kg/m2 (06/24/22 3:13 PM) Blood Pressure [90-138/55-84 mm Hg] 110/ 58mm Hg (06/24/22 3:13 PM) Mode of Delivery (Oxygen) Room air (2/13/23 3:13 PM) Blood pressure sites Arm, right (06/24/22 3:13 PM) Weight Obtained Via Patient/family state d (06/24/22 3:13 PM) Social History Social History Type Response Smoking Status Current every day sm [place]; Other: 1-1/2 packs of cigarettes daily; entered on: 10/23/17 Sex Note * Malathi Uribe: PERFORM, SIGN, VERIFY Event Display: Patient Education/Instruction Authored Date: [id number] [facility] *[facility] [address] Clinical Summary Name JAIME CYR Age 67 Years 1955 PCP Meagan DILL, Tony Gaines PCP Visit Date 06/24/2022 15:00:00 Additional Instructions: Scheduled Appointments?? Future Appointments ?No Future Appointments Scheduled Follow-Up Instructions ?? Diagnosis Medications: Please continue your medications until treatment is completed or stopped by your provider. Discuss any questions related to medications with your provider. Medications to Continue with No Changes [facility], [address] [place] [id number], [phone] Amoxicillin-Clavulanate (Augmentin 875 mg-125 mg oral tablet) 1 tab(s) Oral every 12 hours for 14 Days. Refills: 0. Next Dose: These medications were not printed or sent to your pharmacy Acetaminophen (acetaminophen 325 mg oral tablet) 650 Milligram Oral every 4 hours as needed Pain , Mild. Next Dose: Albuterol (albuterol 90 mcg/inh inhalation powder) 2 puff(s) Inhalation every 4 hours as needed. Refills: 5. Next Dose: amiODARONE (amiodarone 200 mg oral tablet) 2 tab(s) Oral twice a day. Refills: 6. Next Dose: apixaban (Eliquis 5 mg oral tablet) 1 tab(s) Oral twice a day for 30 Days. Refills: 0. Next Dose: Aspirin (aspirin 81 mg oral delayed release tablet) 1 tab(s) Oral Daily. Next Dose: Atorvastatin (atorvastatin 40 mg oral tablet) TAKE 1 TABLET BY MOUTH DAILY. Refills: 3. Next Dose: Bisacodyl (bisacodyl 10 mg rectal suppository) 1 suppository(ies) Per rectum Daily as needed Constipation. Next Dose: Cholecalciferol (Vitamin D3 10,000 intl units oral capsule) 1 capsule Oral every week for 6 week(s). Refills: 0. Next Dose: Clonidine (cloNIDine 0.1 mg oral tablet) 1 tab(s) Oral twice a day. Refills: 5. Next Dose: Docusate (Docusate Sodium Capsule) 100 Milligram Oral twice a day. Next Dose: Durable Medical Equipment (Nebulizer/Compressor) to use every 6hrs prn copd exacerbation. Refills: 0. Next Dose: Folic Acid (folic acid 1 mg oral tablet) 1 tab(s) Oral Daily for 30 Days. Refills: 0. Next Dose: Gabapentin (gabapentin 300 mg oral capsule) 1 capsule Oral 3 times a day. Refills: 0. Next Dose: levETIRAcetam (Keppra 500 mg oral tablet) 1 tab(s) Oral twice a day. Refills: 6. Next Dose: Lidocaine Topical (lidocaine 5% topical film) Topically Daily. Next Dose: Melatonin (melatonin 3 mg oral tablet) 9 Milligram Oral Daily at Bedtime. Next Dose: Metoprolol (Metoprolol Succinate ER 25 mg oral tablet, extended release) 1 tab(s) Oral Daily. Refills: 2. Next Dose: Miscellaneous Rx (Complete blood count with differential and Basic metabolic panel in 1 week from 12/19/2021) Complete blood count with differential and Basic metabolic panel in 1 week from 12/19/2021.Refills: 0. Next Dose: Multivitamin (Vit B Complex/Vit C Capsule) 1 tab(s) Oral Daily. Next Dose: Multivitamin With Minerals (Multivit Therapeutic/Minerals Tablet) 1 tab(s) Oral Daily. Next Dose: Nitroglycerin (nitroglycerin 0.4 mg sublingual tablet) TAKE 1 TABLET UNDER THE TONGUE EVERY 5 MINUTES NEEDED FOR CHEST PAIN AFTER 3 DOSES, CALL 911. Refills: 0. Next Dose: Omeprazole (omeprazole 20 mg oral delayed release tablet) 1 tab(s) Oral Daily in the morning. Next Dose: Pentoxifylline (pentoxifylline 400 mg oral tablet, extended release) 1 tab(s) Oral 3 times a day. Refills: 11. Next Dose: Remove Patch (Remove Patch) 1 Each Topically Daily. Next Dose: Senna (Senna 8.6 mg oral tablet) 1 tab(s) Oral Daily. Next Dose: Thiamine (thiamine 100 mg oral tablet) 1 tab(s) Oral Daily. Next Dose: Allergy Info:?? Vioxx Medications Given This Visit Future Orders ?No future orders Vital Signs Height 170 cm Weight 65.77 kg BMI 22.76 kg/m2 Blood Pressure 110 mm Hg/58 mm Hg Temperature Pulse Rate 72 bpm Respiratory Rate 02 Sat Mode of Delivery 88 %/Room air You can now view a summary of your hospital visit from the comfort of your home through a free online portal called [employer]. [employer] is a website that allows you to securely view your medical information including discharge summary, medications and follow-up visits. ??You can alsosend a secure electronic message to your doctor???s office to request appointments, renew medications or just ask a question. You can enroll at [email or web address] or register during your next office visit. Disclaimer:?? The information provided is of a general nature and is intended to be used in conjunction with the recommendations and advice of your health care practitioner. ??Every effort has been made to ensure that the information provided is accurate and complete at the time it is provided to you however, as your needs change, or, as new ??information becomes available, different or additional instructions may be required. If you have questions, please consult with your primary care provider or pharmacist, as appropriate. ??This information is not intended to serve as substitution for assessment and evaluation by a qualified health care provider. If you do not have a primary care provider, you may find a [facility] provider by calling [facility] at [phone]. For information about the plan of care including goals and instructions for your diagnosis, please see the patient education orders section of this document. Patient Education Materials?? The content of this educational material or handout may have been modified, supplemented, or adapted from its original content and format to support your individualized medical care. Patient Care team information Care Team Personnel [...] Care Physician Member Role: PCP Address: Address: [address] [place] [id number] Name: Rachel Brown RN Position: [facility] RN Member Role: Primary Care Nurse Name: Lucia Denton RN Position: [facility] RN Member Role: Primary Care Nurse Name: Chelita Hernandez RN Position: [facility] RN Member Role: Primary Care Nurse Name: Elizabeth Taylor Position: S RN Member Role: Primary Care [...] Name: FANY CYR Address: home [address] [place] [address] Name: KLARISSA KITTY Address: [place] [address]
--- OUTSIDE RECORDS SUMMARY | 2023-04-27 13:38 | XMS_ITS | Continuity of Care Document ---
Author Name Unknown Organization [facility] Address [address] [place] [address]- Care Team Providers Care Development Analyst Name Role Phone Tony Rhodes MD Primary Care Physician [facility] 01/24[facility]23 - 02/23/23 [facility] Adult [address] [place] [address]- Attending Physician: Admtr, Ar8 Allergies, Adverse Reactions, Alerts Substance Reaction Severity Status Vioxx Hypertension Mild Active Immunizations Given and Recorded Vaccine Date Status Refusal Reason [id number] bivalent booster vax 03/11/22 Recorded influenza virus [...] Pneumococcal Vacc (oldterm) 05/12/99 Given 1Location History: [facility] 2Admin Note: VIS GIVEN 3Location History: [facility] 4Admin Note: GIVEN BY JOHAN BOWERS BY JUDAH 5Admin Note: GIVEN IN CLINIC SHAM 6Admin Note: CX [facility] 7Admin Note: H1N1 Medications acetaminophen 325 [...] Gm, 0 Refills, Maintenance, 11/21/22 14:00:00 EDT, [facility], Partial fill upon patient request if [...] Other: 2 PPD; entered on: 11/04/22 Sex EKG study * Event Display: EKG Authored Date: * Event Display: EKG Authored Date: Cardiology * Winnie Martínez: PERFORM Event Display: Cardiovascular Results Scanned Authored Date: Cardiology Outpatient Note * Moira Nguyễn: PERFORM Event Display: Cardiology Note Office Authored Date: * Sylvia Freeman: PERFORM Event Display: Cardiology Note Office Authored Date: [id number] * Antonieta Tapia: PERFORM Event Display: Cardiology Note Office Authored Date: [id number] XR Shoulder Views * Event Display: X-Ray Shoulder Authored Date: Radiology * Winnie Martínez: PERFORM Event Display: Radiology Results Scanned Authored Date: * Moira Nguyễn.: PERFORM Event Display: Radiology Results Scanned Authored Date: [id number] * Sylvia Freeman: PERFORM Event Display: Radiology Results Scanned Authored Date: [id number] Patient Care team information Care Team Personnel [...] Care Member Role: PCP Address: Address: [address] [place] [email or web address] Name: Rachel Brown RN Position: [facility] RN Member Role: Primary Care Nurse Name: Lucia Denton RN Position: [facility] RN Member Role: Primary Care Nurse Name: Quin Oliveira RN Position: [facility] RN Member Role: Primary Care Nurse Name: Chelita Hernandez RN Position: [facility] RN Member Role: Primary Care Nurse Name: Lynette Leon RN Position: [facility] RN [...] Hutchison RN Position: [facility] AMB Nurse Member Role: Primary Care Nurse Name: David Mensah RN Position: [facility] RN Member Role: Primary Care Nurse Name: Mary Mckeon RN Position: [facility] AMB Nurse Member Role: Primary Care Nurse Care Team Related Persons Name: FANY CYR Address: [address] [place] [address] Name: KITTY CYR
--- OUTSIDE RECORDS SUMMARY | 2023-04-27 13:38 | XMS_ITS | Continuity of Care Document ---
Author Name Unknown Organization [facility] Address [address] [place] [address]- Care Team Providers Care Pattern Mechanic Name Role Phone Meagan DILL, Tony Gaines Primary Care Physician [facility]counter [facility] Date(s): 06/25/22 - 07/27/22 [facility] [address], [place] [address] Attending Physician: Kodak Cherry MD Admitting Physician: Kodak Cherry MD Referring Physician: Tony Rohdes MD Allergies, Adverse Reactions, Alerts Substance Reaction Severity Status Vioxx Hypertension Mild Active Immunizations Given and Recorded Vaccine Date Status Refusal Reason [id number] bivalent booster vax 03/11/22 Recorded influenza virus [...] Pneumococcal Vacc (oldterm) 05/12/99 Given 1Location History: [facility] 2Admin Note: VIS GIVEN 3Location History: [facility] 4Admin Note: GIVEN BY JOHAN BOWERS BY JUDAH 5Admin Note: GIVEN IN CLINIC SHAM 6Admin Note: [employer] [facility] 7Admin Note: H1N1 Medications acetaminophen 325 mg [...] 5 Refills, Maintenance, 07/29/19 13:25:00 EDT, Powder, [facility], 167, cm, 04/30/19 15:55:00 EST, Height, [...] 3 Refills, Soft Stop, 09/05/21 15:18:00 EDT, [facility], 167, cm, 08/20/21 12:32:00 EDT, Height Start Date: 09/05/21 Status: Ordered Colace sodium 100 mg oral capsule 100 mg, 1, capsule, By Mouth, 2 times a day, # 60 capsule, Refills 0, Tot. Refills 0, Maintenance, 06/24/22 16:00:00 EST, Route to Pharmacy Electronically, [facility], Partial fill upon patient request if the prescription is for a schedule II opi... Start Date: 06/24/22 Status: Ordered collagenase topical 250 u/gm ointment 1 application, Topically, Daily, apply moist dressing over the santyl, triad cream on surrouding skin and DSD over all, # 90 Gm, 0 Refills, Maintenance, 07/08/22 13:04:00 EST, Ointment, [facility], Partial fill upon patient request if th... Start Date: 07/08/22 Status: Ordered Eliquis 5 mg oral tablet 1 tablet = 5 mg, By Mouth, 2 times a day, # 60 tablet, 0 Refills, Maintenance, 02/25/22 12:41:00 EDT, Tablet, [facility], 168, cm, 02/25/22 12:11:00 EDT, Height, 57.7, kg, 02/22/22 23:09:00 EDT,Dry Weight Start Date: 02/25/22 Stop Date: 03/27/22 Status: Ordered Keppra 500 mg oral tablet 1 tablet = 500 mg, By Mouth, 2 times a day, # 60 tablet, 6 Refills, Maintenance, 03/01/21 14:03:00 EDT, Tablet, [facility], Partial fill upon patient request if [...] tablet, 2 Refills, Maintenance, 02/18/22 9:48:00 EDT, [facility], 172.7, cm, 01/18/22 14:53:00 EDT, Height, 68.2, kg, 09/21/21 17:43:00 EDT, Dry Weight Start Date: 02/18/22 Status: Ordered MiraLax oral powder for reconstitution = 17 Gm, By Mouth, Daily, dissolve in water before taking, # 255 Gm, 0 Refills, Maintenance, 07/08/22 9:59:00 EST, REC Powder, [facility], Partial fill upon patient [...] 07/08/22 9:58:00 EST, Route to Pharmacy Electronically, [facility], Partial fill upon... Start Date: 07/08/22 Status: Ordered pentoxifylline 400 mg oral tablet, extended release 1, tablet, By Mouth, 3 times a day, # 90 tablet, Refills 11, Route to Pharmacy Electronically, [facility], 167, cm, 08/20/21 12:32:00 EDT, Height Start Date: 09/05/21 Status: Ordered Vitamin D3 10,000 intl units oral capsule 1 capsule = 250 mcg, By Mouth, Every week, # 6 capsule, 0 Refills, Maintenance, 12/19/21 12:19:00 EDT, Capsule, [facility], Partial fill upon patient request if [...] Personnel Name: Ana Maria Cruz RN Position: [facility] RN Member Role: Primary Care Nurse Name: Morena Abraham RN Position: [facility] SN RN Member Role: Primary Care Nurse Name: Jena Barron RN Position: [facility] RN Member Role: Primary Care Nurse Name: Faith Cheek RN Position: [facility] RN Member Role: Primary Care Nurse Name: Rodney He RN Position: [facility] RN Member Role: Primary Care Nurse Name: Ana Maria Gonzalez RN Position: [facility] RN Member Role: Primary Care Nurse Name: Rae Vigil RN Position: [facility] RN Member Role: Primary Care Nurse Name: Johan Montes RN Position: [facility] RN Member Role: Primary Care Nurse Name: Tony Rhodes MD Position: [facility] Primary Care Physician Member Role: PCP Address: Address: [address] [place] [address] Name: Milad Rodríguez Position: [facility] RN Member Role: Primary Care Nurse Name: Racehl Brown RN Position: [facility] RN Member Role: Primary Care Nurse Name: Lucia Denton RN Position: [facility] RN Member Role: Primary Care Nurse Name: Bill Velazquez RN Position: [facility] RN Member Role: Primary Care Nurse Name: Chelita Hernandez RN Position: [facility] RN Member Role: Primary Care Nurse Name: Donald Purcell RN Position: [facility] RN Member Role: Primary Care Nurse Name: Shameka Hicks RN Position: [facility] RN Member Role: Primary Care Nurse Name: Lynette Wooten RN Position: [facility] RN Member Role: Primary Care Nurse Name: Batsheva Herring RN Position: [facility] AMB Nurse Member Role: Primary Care Nurse Name: Barbara Post RN Position: [facility] RN Member Role: Primary Care Nurse Name: Roxana Hutchison RN Position: [facility] RN Member Role: Primary Care Nurse Name: David Mensah RN Position: [facility] RN Member Role: Primary Care Nurse Name: Mary Mckeon RN Position: [facility] AMB Nurse Member Role: Primary Care Nurse Care Team Related Persons Name: FANY CYR Address: home [address] [place] [address] Name: KITTY CYR Address: [place] [address]
--- OUTSIDE RECORDS SUMMARY | 2023-04-27 13:39 | XMS_ITS | Continuity of Care Document ---
Author Name Unknown Organization [facility] Address [address] [place] [address]- Care Team Providers Care Magazine Editor Name Role Phone Tony Rhodes MD Primary Care Physician Encounter [facility] [place] Date(s): 05/22/22 - 05/29/22 [facility] [address] [place] [address]- Referring Physician: Tony Rhodes MD Allergies, Adverse [...] Pneumococcal Vacc (oldterm) 05/12/99 Given 1Location History: [facility] 2Admin Note: VIS GIVEN 3Location History: [facility] 4Admin Note: GIVEN BY ANDIE BOWERS BY JUDAH 5Admin Note: GIVEN IN CLINIC SHAM 6Admin Note: [employer] [facility] 7Admin Note: H1N1 Medications acetaminophen 325 [...] 5 Refills, Maintenance, 07/29/19 13:25:00 EDT, Powder, [facility], 167, cm, 04/30/19 15:55:00 EST, Height, 70.2, kg, 07/31/18 6:33:00EDT, Dry Weight Start Date: 07/29/19 Status: Ordered amiodarone 200 mg oral tablet 2, tablet, By Mouth, 2 times a day, # 120 tablet, Refills 6, Maintenance, 02/18/22 9:48:00 EDT, Route to Pharmacy Electronically, [facility], 172.7, cm, 01/18/22 14:53:00 EDT, Height, 68.2, [...] 3 Refills, Soft Stop, 09/05/21 15:18:00 EDT, [facility], 167, cm, 08/20/21 12:32:00 EDT, Height [...] 02/18/22 9:47:00 EDT, Route to Pharmacy Electronically, [facility], 172.7, cm, 01/18/22 14:53:00 EDT, Height, [...] 0 Refills, Maintenance, 02/25/22 12:41:00 EDT, Tablet, [facility], 168, cm, 02/25/22 12:11:00 EDT, Height, [...] 25 tablet, 0 Refills, 10/18/20 16:42:00 EDT, [facility], 167, cm, 08/21/20 14:59:00 EDT, Height [...] oldest [Reference Range]: 1 Height 170 cm (05/22/22 2:16 PM) Weight 47.0 kg (05/22/22 2:16 PM) Pulse Rate [55-90 bpm] 80 bpm (05/22/22 2:16 PM) Body Mass Index [18.5-24.99 kg/m2] 16.26 kg/m2 *L* (05/22/22 2:16 PM) Blood Pressure [90-138/55-84 mm Hg] 130/ 88mm Hg (05/22/22 2:16 PM) Blood pressure sites Arm, right (05/22/22 2:16 PM) Weight Obtained Via Patient/family state d (05/22/22 2:16 PM) Social History Social History Type Response Smoking Status Current every day sm oker; Other: 1-1/2 packs of cigarettes daily; entered on: 10/23/17 Sex Note * Jazzy Feldman: PERFORM, SIGN, VERIFY Event Display: Patient Education/Instruction Authored Date: [id number] [facility] *[facility] [address] Clinical Summary Name JAIME CYR Age 67 Years 1955 PCP Meagan DILL, Tony Gaines PCP Visit Date 05/22/2022 13:00:00 Additional Instructions: Scheduled Appointments?? Future Appointments ?*[facility],??[place],??[address] ?Phone:??--?Fax:??-- ?Appt. Date:??06/07/2022?2:00 PM ?Scheduled Provider:??Dany DILL, Angi Hassan Follow-Up Instructions ?? Diagnosis Medications: Please continue your medications until treatment is completed or stopped by your provider. Discuss any questions related to medications with your provider. Medications to Continue with No Changes These medications were not printed or sent [...] Orders ?No future orders Vital Signs Height Weight BMI Blood Pressure / Temperature Pulse Rate Respiratory Rate 02 Sat Mode of Delivery / You can now view a summary of your hospital visit from the comfort of your home through a free online portal called [employer]. [employer] is a website that allows you to securely view your medical information including discharge summary, medications and follow-up visits. ??You can alsosend a secure electronic message to your doctor???s office to request appointments, renew medications or just ask a question. You can enroll at [email or web address] or register during your next office [...] primary care provider, you may find a [facility] provider by calling [facility] [employer] at [phone]. For information about the plan of care [...] Personnel Name: Ana Maria Cruz RN Position: [facility] RN Member Role: Primary Care Nurse Name: Morena Abraham RN Position: [facility] RN Member Role: Primary Care Nurse Name: Jena Barron RN Position: [facility] RN Member Role: Primary Care Nurse Name: Ana Maria Gonzalez RN Position: [facility] RN Member Role: Primary Care Nurse Name: Rae Vigil RN Position: [facility] ED RN W/OE and Tasks Member Role: Primary Care Nurse Name: Tony Rhodes MD Position: [facility] Primary Care Physician Member Role: PCP Address: Address: [address] [place] [id number] Name: Rachel Brown RN Position: [facility] RN Member Role: Primary Care Nurse Name: Lucia Denton RN Position: [facility] RN Member Role: Primary Care Nurse Name: Chelita Hernandez RN Position: S RN Member Role: Primary Care Nurse Name: Elizabeth Taylor Position: S RN Member Role: Primary Care Nurse Name: Batsheva Herring RN Position: [facility] AMB Nurse Member Role: Primary Care Nurse Name: Roxana Hutchison RN Position: [facility] RN Member Role: Primary Care Nurse Name: Mary Mckeon RN Position: [facility] AMB Nurse Member Role: Primary Care Nurse Care Team Related Persons Name: KLARISSA FANY Address: home [address] [place] [address] Name: KLARISSA KITTY Address: [place] [address]
--- OUTSIDE RECORDS SUMMARY | 2023-04-27 13:39 | XMS_ITS | Continuity of Care Document ---
Author Name Unknown Organization [facility] Address [address] [place] [address]- Care Team Providers Care Electronic Equipment Set Up Operator Name Role Phone Tony Rhodes MD Primary Care Physician [phone] Encounter [facility] Date(s): 11/21/22 - 12/21/22 [facility] Adult [address] [place] [address]- Attending Physician: Admtr, Ar8 Allergies, Adverse Reactions, Alerts Substance Reaction Severity Status Vioxx Hypertension Mild Active Immunizations Given and Recorded Vaccine Date Status Refusal Reason [id number] bivalent booster vax 03/11/22 Recorded influenza virus [...] Pneumococcal Vacc (oldterm) 05/12/99 Given 1Location History: [facility] 2Admin Note: VIS GIVEN 3Location History: [facility] [place] 4Admin Note: GIVEN BY JOHAN BOWERS BY JUDAH 5Admin Note: GIVEN IN CLINIC SHAM 6Admin Note: [employer] [facility] 7Admin Note: H1N1 Medications acetaminophen 325 [...] Gm, 0 Refills, Maintenance, 11/21/22 14:00:00 EDT, [facility], Partial fill upon patient request if [...] Display: Cardiology Note Office Authored Date: * Antonieta Tapia: PERFORM Event Display: Cardiology Note Office Authored Date: XR Shoulder Views * Event Display: X-Ray Shoulder Authored Date: Radiology * Winnie Martínez: PERFORM Event Display: Radiology Results Scanned Authored Date: * Moira Nguyễn: PERFORM Event Display: Radiology Results Scanned Authored Date: * Sylvia Freeman: PERFORM Event Display: Radiology Results Scanned Authored Date: Patient Care team information Care Team Personnel Name: Morena Abraham RN Position: [facility] RN Member Role: Primary Care Nurse Name: Jena Barron RN Position: S RN Member Role: Primary Care Nurse Name: Faith Cheek RN Position: S RN Member Role: Primary Care Nurse Name: Rodney He RN Position: S RN Member Role: Primary Care Nurse Name: Barbara Snider RN Position: [facility] SN RN Member Role: Primary Care Nurse Name: Ana Maria Gonzalez RN Position: [facility] RN Member Role: Primary Care Nurse Name: Rae Vigil RN Position: [facility] RN Member Role: Primary Care Nurse Name: Johan Montes RN Position: [facility] RN Member Role: Primary Care Nurse Name: Tony Rhodes MD Position: [facility] Physician - Primary Care Member Role: PCP Address: Address: [address] [place] [id number] [[email or web address] Name: Rachel Brown RN Position: [facility] RN Member Role: Primary Care Nurse Name: Lucia Denton RN Position: [facility] RN Member Role: Primary Care Nurse Name: Quin Oliveira RN Position: [facility] RN Member Role: Primary Care Nurse Name: Chelita Hernandez RN Position: [facility] RN Member Role: Primary Care Nurse Name: Lynette Leon RN Position: [facility] RN Member Role: Primary Care Nurse Name: Donald Purcell RN Position: [facility] RN Member Role: Primary Care Nurse Name: Shameka Hicks RN Position: [facility] RN Member Role: Primary Care Nurse Name: Lynette Wooten RN Position: [facility] RN Member Role: Primary Care Nurse Name: Batsheva Herring RN Position: [facility] OB RN Member Role: Primary Care Nurse Name: Roxana Hutchison RN Position: [facility] AMB Nurse Member Role: Primary Care Nurse Name: David Mensah RN Position: [facility] RN Member Role: Primary Care Nurse Name: Mary Mckeon RN Position: [facility] AMB Nurse Member Role: Primary Care Nurse Care Team Related Persons Name: FANY CYR Address: home [address] [place] [address] Name: KITTY CYR
--- OUTSIDE RECORDS SUMMARY | 2023-04-27 13:39 | XMS_ITS | Continuity of Care Document ---
Author Name Unknown Organization [facility] Address [address] [place] [address]- Care Team Providers Care Medical Device Assembler Name Role Phone Tnoy Rhodes MD Primary Care Physician Encounter [facility] Date(s): 07/29/22 - 09/14/22 [facility] [address] [place] [address]- Attending Physician: Mary Jay NP Admitting Physician: Misty PATRICK, Mary Cruz Referring Physician: Tony Rhodes MD Allergies, Adverse Reactions, Alerts Substance Reaction Severity Status Vioxx Hypertension Mild Active Immunizations Given and Recorded Vaccine Date Status Refusal Reason [id number] bivalent booster vax 03/11/22 Recorded influenza virus [...] Pneumococcal Vacc (oldterm) 05/12/99 Given 1Location History: [facility] 2Admin Note: VIS GIVEN 3Location History: [facility] 4Admin Note: GIVEN BY JOHAN BOWERS BY JUDAH 5Admin Note: GIVEN IN CLINIC [facility]AM 6Admin Note: [facility] 7Admin Note: H1N1 Medications acetaminophen 325 [...] Gm, 0 Refills, Maintenance, 08/01/22 15:26:00 EDT, [facility], Partial fill upon patient request if the prescription is for a schedule II opioid drug., 170, cm, 08/01/22 14:54:00 EDT, Height, 45.7, kg, 03... Start Date: 08/01/22 Status: Ordered albuterol 90 mcg/inh inhalation powder 2 puffs, Inhalation, Every 4 hours, PRN as needed, # 1 each, 5 Refills, Maintenance, 07/29/19 13:25:00 EDT, Powder, [facility], 167, cm, 04/30/19 15:55:00 EST, Height, [...] 09/05/22 13:27:00 EDT, Route to Pharmacy Electronically, [facility], Partial fill upon patient request if the prescription is for a schedule II opioi... Start Date: 09/05/22 Status: Ordered Colace sodium 100 mg oral capsule 100 mg, 1, capsule, By Mouth, 2 times a day, # 60 capsule, Refills 0, Tot. Refills 0, Maintenance, 06/24/22 16:00:00 EST, Route to Pharmacy Electronically, [facility], Partial fill upon patient request if the prescription is for a schedule II opi... Start Date: 06/24/22 Status: Ordered collagenase topical 250 u/gm ointment 1 application, Topically, Daily, apply moist dressing over the santyl, triad cream on surrouding skin and DSD over all, # 90 Gm, 0 Refills, Maintenance, 07/08/22 13:04:00 EST, Ointment, [facility], Partial [...] 2 Refills, Maintenance, 09/05/22 13:26:00 EDT, Tablet, [facility], Partial fill upon patient request if [...] tablet, 2 Refills, Maintenance, 02/18/22 9:48:00 EDT, [facility], 172.7, cm, 01/18/22 14:53:00 EDT, Height, 68.2, kg, 09/21/21 17:43:00 EDT, Dry Weight Start Date: 02/18/22 Status: Ordered MiraLax oral powder for reconstitution = 17 Gm, By Mouth, Daily, dissolve in water before taking, # 255 Gm, 0 Refills, Maintenance, 07/08/22 9:59:00 EST, REC Powder, [facility], Partial fill upon [...] 07/08/22 9:58:00 EST, Route to Pharmacy Electronically, [facility], Partial fill upon... Start Date: 07/08/22 Status: Ordered pentoxifylline 400 mg oral tablet, extended release 1, tablet, By Mouth, 3 times a day, # 90 tablet, Refills 11, Route to Pharmacy Electronically, [facility], 167, cm, 08/20/21 12:32:00 EDT, Height Start Date: 09/05/21 Status: Ordered Vitamin D3 10,000 intl units oral capsule 1 capsule = 250 mcg, By Mouth, Every week, # 6 capsule, 0 Refills, Maintenance, 12/19/21 12:19:00 EDT, Capsule, [facility], Partial fill upon patient request if [...] Team Personnel Name: Morena Abraham RN Position: [facility] SN RN Member Role: Primary Care Nurse Name: Jena Barron RN Position: [facility] RN Member Role: Primary Care Nurse Name: Faith Cheek RN Position: [facility] RN Member Role: Primary Care Nurse Name: Rodney He RN Position: [facility] RN Member Role: Primary Care Nurse Name: Barbara Snider RN Position: [facility] SN RN Member Role: Primary Care Nurse Name: Ana Maria Gonzalez RN Position: [facility] RN Member Role: Primary Care Nurse Name: Rae Vigil RN Position: [facility] RN Member Role: Primary Care Nurse Name: Johan Montes RN Position: [facility] RN Member Role: Primary Care Nurse Name: Tony Rhodes MD Position: [facility] Primary Care Physician Member Role: PCP Address: Address: [address] [place] [address]- Name: Milad Rodríguez Position: S RN Member Role: Primary Care Nurse Name: Rachel Brown RN Position: S RN Member Role: Primary Care Nurse Name: Lucia Denton RN Position: S RN Member Role: Primary Care Nurse Name: Bill Velazquez RN Position: S RN Member Role: Primary Care Nurse Name: Chelita Hernandez RN Position: S RN Member Role: Primary Care Nurse Name: Donald Purcell RN Position: [facility] RN Member Role: Primary Care Nurse Name: Shameka Hicks RN Position: [facility] RN Member Role: Primary Care Nurse Name: Lynette Wooten RN Position: [facility] RN Member Role: Primary Care Nurse Name: Batsheva Herring RN Position: [facility] OB RN Member Role: Primary Care Nurse Name: Roxana Hutchison RN Position: [facility] RN Member Role: Primary Care Nurse Name: David Mensah RN Position: [facility] RN Member Role: Primary Care Nurse Name: Mary Mckeon RN Position: [facility] AMB Nurse Member Role: Primary Care Nurse Care Team Related Persons Name: FANY CYR Address: home [address] [place] [address] Name: KITTY [place]YR [place]: [place] [address]
--- OUTSIDE RECORDS SUMMARY | 2023-04-27 13:40 | XMS_ITS | Continuity of Care Document ---
Author Name Unknown Organization [facility] Address [address] [place] [address]- Care Team Providers Care Blow Mold Technician Name Role Phone Tony Rhodes MD Primary Care Physician [place] [facility] [place]22 - 05/08/22 [facility] [address] [place] [address]- Attending Physician: Tucker Rehman MD Admitting Physician: Tucker Rehman MD Allergies, Adverse Reactions, Alerts Substance Reaction [...] Pneumococcal Vacc (oldterm) 05/12/99 Given 1Location History: [facility] 2Admin Note: VIS GIVEN 3Location History: [facility] 4Admin Note: GIVEN BY ANDIE BOWERS BY JUDAH 5Admin Note: GIVEN IN CLINIC SHAM 6Admin Note: [facility] 7Admin Note: H1N1 Medications acetaminophen 325 [...] 5 Refills, Maintenance, 07/29/19 13:25:00 EDT, Powder, [facility], 167, cm, 04/30/19 15:55:00 EST, Height, 70.2, kg, 07/31/18 6:33:00EDT, Dry Weight Start Date: 07/29/19 Status: Ordered amiodarone 200 mg oral tablet 2, tablet, By Mouth, 2 times a day, # 120 tablet, Refills 6, Maintenance, 02/18/22 9:48:00 EDT, Route to Pharmacy Electronically, [facility], 172.7, cm, 01/18/22 14:53:00 EDT, Height, [...] 3 Refills, Soft Stop, 09/05/21 15:18:00 EDT, [facility], 167, cm, 08/20/21 12:32:00 EDT, Height [...] 02/18/22 9:47:00 EDT, Route to Pharmacy Electronically, [facility], 172.7, cm, 01/18/22 14:53:00 EDT, Height, [...] 0 Refills, Maintenance, 02/25/22 12:41:00 EDT, Tablet, [facility], 168, cm, 02/25/22 12:11:00 EDT, Height, [...] 25 tablet, 0 Refills, 10/18/20 16:42:00 EDT, [facility], 167, cm, 08/21/20 14:59:00 EDT, Height Start Date: 10/18/20 Status: Ordered omeprazole 20 mg oral delayed release tablet 1 tablet = 20 mg, By Mouth, Daily in AM, Maintenance, 09/21/21 16:06:00 EDT Start Date: 09/21/21 Status: Ordered pentoxifylline 400 mg oral tablet, extended release 1, tablet, By Mouth, 3 times a day, # 90 tablet, Refills 11, Route to Pharmacy Electronically, [facility], 167, cm, 08/20/21 12:32:00 EDT, Height [...] oldest [Reference Range]: 1 Height 170 cm (05/01/22 3:42 PM) Weight 36.36 kg (05/01/22 3:42 PM) Oxygen Saturation [94-100 %] 95 % (05/01/22 3:42 PM) Pulse Rate [55-90 bpm] 70 bpm (12/21/22 3:42 PM) Body Mass Index [18.5-24.99 kg/m2] 12.58 kg/m2 *L* (05/01/22 3:42 PM) Blood Pressure [90-138/55-84 mm Hg] 80/6 0mm Hg *L* (05/01/22 3:42 PM) Mode of Delivery (Oxygen) Room air (05/01/22 3:42 PM) Blood pressure sites Arm, left (05/01/22 3:42 PM) Weight Obtained Via Patient/family state d (05/01/22 3:42 PM) Social History Social History Type Response Smoking Status Current every day sm oker; Other: 1-1/2 packs of cigarettes daily; entered on: 10/23/17 Sex Patient Care team information Care Team Personnel Name: Ana Maria Cruz RN Position: [facility] RN Member Role: Primary Care Nurse Name: Morena Abraham RN Position: [facility] RN Member Role: Primary Care Nurse Name: Jena Barron RN Position: [facility] RN Member Role: Primary Care Nurse Name: Ana Maria Gonzalez RN Position: [facility] RN Member Role: Primary Care Nurse Name: Rae Vigil RN Position: [facility] ED RN W/OE and Tasks Member Role: Primary Care Nurse Name: Tony Rhodes MD Position: [facility] Primary Care Physician Member Role: PCP Address: Address: [address] [place] [id number]- Name: Rachel Brown RN Position: [facility] RN Member Role: Primary Care Nurse Name: Lucia Denton RN Position: [facility] RN Member Role: Primary Care Nurse Name: Chelita Hernandez RN Position: [facility] RN Member Role: Primary Care Nurse Name: Elizabeth Taylor Position: S RN Member Role: Primary Care Nurse Name: Batsheva Herring RN Position: [facility] AMB Nurse Member Role: Primary Care Nurse Name: Roxana Hutchison RN Position: [facility] RN Member Role: Primary Care Nurse Name: Mary Mckeon RN Position: [facility] AMB Nurse Member Role: Primary Care Nurse Care Team Related Persons Name: FANY CYR Address: home [address] [place] [address] Name: KITTY CYR Address: [place] [address]
--- OUTSIDE RECORDS SUMMARY | 2023-04-27 13:40 | XMS_ITS | Continuity of Care Document ---
Author Name Unknown Organization [facility] Address [address] [place] [address]- Care Team Providers Care Hard Rock Miner Blasting Name Role Phone Tony Rhodes MD Primary Care Physician [facility] Date(s): 05/03/22 - 06/02/22 [facility] Adult [address] [place] [address]- Attending Physician: Admtr, Delgado Allergies, Adverse Reactions, Alerts Substance Reaction Severity [...] Pneumococcal Vacc (oldterm) 05/12/99 Given 1Location History: [facility] 2Admin Note: VIS GIVEN 3Location History: [facility] 4Admin Note: GIVEN BY ANDIE BOWERS BY JUDAH 5Admin Note: GIVEN IN CLINIC SHAM 6Admin Note: [employer] [facility] 7Admin Note: H1N1 Medications acetaminophen 325 mg [...] 5 Refills, Maintenance, 07/29/19 13:25:00 EDT, Powder, [facility], 167, cm, 04/30/19 15:55:00 EST, Height, 70.2, kg, 07/31/18 6:33:00EDT, Dry Weight Start Date: 07/29/19 Status: Ordered amiodarone 200 mg oral tablet 2, tablet, By Mouth, 2 times a day, # 120 tablet, Refills 6, Maintenance, 02/18/22 9:48:00 EDT, Route to Pharmacy Electronically, [facility], 172.7, cm, 01/18/22 14:53:00 EDT, Height, [...] 3 Refills, Soft Stop, 09/05/21 15:18:00 EDT, [facility], 167, cm, 08/20/21 12:32:00 EDT, Height [...] 02/18/22 9:47:00 EDT, Route to Pharmacy Electronically, [facility], 172.7, cm, 01/18/22 14:53:00 EDT, Height, [...] 0 Refills, Maintenance, 02/25/22 12:41:00 EDT, Tablet, [facility], 168, cm, 02/25/22 12:11:00 EDT, Height, [...] 25 tablet, 0 Refills, 10/18/20 16:42:00 EDT, [facility], 167, cm, 08/21/20 14:59:00 EDT, Height Start Date: 10/18/20 Status: Ordered omeprazole 20 mg oral delayed release tablet 1 tablet = 20 mg, By Mouth, Daily in AM, Maintenance, 09/21/21 16:06:00 EDT Start Date: 09/21/21 Status: Ordered pentoxifylline 400 mg oral tablet, extended release 1, tablet, By Mouth, 3 times a day, # 90 tablet, Refills 11, Route to Pharmacy Electronically, [facility], 167, cm, 08/20/21 12:32:00 EDT, Height [...] Date: * Event Display: EKG Authored Date: Note * Winnie Martínez: PERFORM Event Display: Cardiovascular Results Scanned Authored Date: * Winnie Martínez: PERFORM Event Display: Radiology Results Scanned Authored Date: * Moira Nguyễn: PERFORM Event Display: Radiology Results Scanned Authored Date: * Sylvia Freeman: PERFORM Event Display: Radiology Results Scanned Authored Date: Cardiology Outpatient Note * Moira Nguyễn: PERFORM Event Display: Cardiology Note Office Authored Date: * Sylvia Freeman: PERFORM Event Display: Cardiology Note Office Authored Date: * Antonieta Tapia: PERFORM Event Display: Cardiology Note Office Authored Date: XR Shoulder Views * Event Display: X-Ray Shoulder Authored Date: Patient Care team information Care Team Personnel Name: Ana Maria Cruz RN Position: [facility] RN Member Role: Primary Care Nurse Name: Morena Abraham RN Position: [facility] RN Member Role: Primary Care Nurse Name: Jena Barron RN Position: [facility] RN Member Role: Primary Care Nurse Name: Ana Maria Gonzalez RN Position: [facility] RN Member Role: Primary Care Nurse Name: Rae Vigil RN Position: [facility] ED RN W/OE and Tasks Member Role: Primary Care Nurse Name: Tony Rhodes MD Position: [facility] Primary Care Physician Member Role: PCP Address: Address: [address] [place] [id number] Name: Rachel Brown RN Position: [facility] RN Member Role: Primary Care Nurse Name: Lucia Denton RN Position: [facility] RN Member Role: Primary Care Nurse Name: Chelita Hernandez RN Position: [facility] RN Member Role: Primary Care Nurse Name: Elizabeth Taylor Position: [facility] RN Member Role: Primary Care Nurse Name: Batsheva Herring RN Position: [facility] AMB Nurse Member Role: Primary Care Nurse Name: Roxana Hutchison RN Position: [facility] RN Member Role: Primary Care Nurse Name: Mary Mckeon RN Position: [facility] AMB Nurse Member Role: Primary Care Nurse Care Team Related Persons Name: FANY CYR Address: home [address] [place] [id number] Name: KITTY CYR Address: [place] [address]
--- OUTSIDE RECORDS SUMMARY | 2023-04-27 13:40 | XMS_ITS | Continuity of Care Document ---
Author Name Unknown Organization [facility] Address [address] [place] [address]- Care Team Providers Care Jigman Name Role Phone Meagan DILL, Tony Gaines Primary Care Physician [facility] Date(s): 06/25/22 - 07/25/22 [facility] [address] [place], [place] [address] Allergies, Adverse Reactions, Alerts Substance Reaction Severity Status Vioxx Hypertension Mild Active Immunizations Given and Recorded Vaccine Date Status Refusal Reason [id number] bivalent booster vax 03/11/22 Recorded influenza virus [...] (oldterm) 05/12/99 Given 1[facility] 2Admin Note: VIS GIVEN 3Location History: [facility] 4Admin Note: GIVEN BY JOHAN BOWERS BY JUDAH 5Admin Note: GIVEN IN CLINIC SHAM 6Admin Note: [facility] 7Admin Note: H1N1 Medications acetaminophen 325 mg [...] 5 Refills, Maintenance, 07/29/19 13:25:00 EDT, Powder, [facility], 167, cm, 04/30/19 15:55:00 EST, [...] 3 Refills, Soft Stop, 09/05/21 15:18:00 EDT, [facility], 167, cm, 08/20/21 12:32:00 EDT, Height Start Date: 09/05/21 Status: Ordered Colace sodium 100 mg oral capsule 100 mg, 1, capsule, By Mouth, 2 times a day, # 60 capsule, Refills 0, Tot. Refills 0, Maintenance, 06/24/22 16:00:00 EST, Route to Pharmacy Electronically, [facility], Partial fill upon patient request if the prescription is for a schedule II opi... Start Date: 06/24/22 Status: Ordered collagenase topical 250 u/gm ointment 1 application, Topically, Daily, apply moist dressing over the santyl, triad cream on surrouding skin and DSD over all, # 90 Gm, 0 Refills, Maintenance, 07/08/22 13:04:00 EST, Ointment, [facility], Partial fill upon patient request if th... Start Date: 07/08/22 Status: Ordered Eliquis 5 mg oral tablet 1 tablet = 5 mg, By Mouth, 2 times a day, # 60 tablet, 0 Refills, Maintenance, 02/25/22 12:41:00 EDT, Tablet, [facility], 168, cm, 02/25/22 12:11:00 EDT, Height, 57.7, kg, 02/22/22 23:09:00 EDT,Dry Weight Start Date: 02/25/22 Stop Date: 03/27/22 Status: Ordered Keppra 500 mg oral tablet 1 tablet = 500 mg, By Mouth, 2 times a day, # 60 tablet, 6 Refills, Maintenance, 03/01/21 14:03:00 EDT, Tablet, [facility], Partial fill upon patient request [...] tablet, 2 Refills, Maintenance, 02/18/22 9:48:00 EDT, [facility], 172.7, cm, 01/18/22 14:53:00 EDT, Height, 68.2, kg, 09/21/21 17:43:00 EDT, Dry Weight Start Date: 02/18/22 Status: Ordered MiraLax oral powder for reconstitution = 17 Gm, By Mouth, Daily, dissolve in water before taking, # 255 Gm, 0 Refills, Maintenance, 07/08/22 9:59:00 EST, REC Powder, [facility], Partial fill upon patient request [...] 9:58:00 EST, Route to Pharmacy Electronically, [facility], Partial fill upon... Start Date: 07/08/22 Status: Ordered pentoxifylline 400 mg oral tablet, extended release 1, tablet, By Mouth, 3 times a day, # 90 tablet, Refills 11, Route to Pharmacy Electronically, [facility], 167, cm, 08/20/21 12:32:00 EDT, Height [...] Care Nurse Name: Jena Barron RN [facility] RN Member Role: Primary Care Nurse Name: Faith Cheek RN Position[facility] RN Member Role: Primary Care Nurse Name: Rodney He RN Position: [facility] RN Member Role: Primary Care Nurse Name: Ana Maria Gonzalez RN Position: [facility] RN Member Role: Primary Care Nurse Name: Rae Vigil RN Position: [facility] RN Member Role: Primary Care Nurse Name: Johan Montes RN Position: [facility] RN Member Role: Primary Care Nurse Name: Tony Rhodes MD Position: [facility] Primary Care Physician Member Role: PCP Address: Address: [address] [place] [id number] Name: Milad Rodríguez [facility] RN Member Role: Primary Care Nurse Name: Rachel Brown RN Position: [facility] RN Member Role: Primary Care Nurse Name: Lucia Denton RN Position: [facility] RN Member Role: Primary Care Nurse Name: Bill Velazquez RN Position: [facility] RN Member Role: Primary Care Nurse Name: Chelita Hernandez RN Position: [facility] RN Member Role: Primary Care Nurse Name: Donald Purcell RN Position: [facility] RN Member Role: Primary Care Nurse Name: Shameka Hicks RN Position: [facility] RN Member Role: Primary Care Nurse Name: Lynette Wooten RN Position: [facility] RN Member Role: Primary Care Nurse Name: Batsheva Herring RN Position: [facility] AMB Nurse Member Role: Primary Care Nurse Name: Barbara Post RN Position: [facility] RN Member Role: Primary Care Nurse Name: Roxana Hutchison RN Position: [facility] RN Member Role: Primary Care Nurse Name: David Mensah RN Position: [facility] RN Member Role: Primary Care Nurse Name: Mary Mckeon RN Position: [facility] AMB Nurse Member Role: Primary Care Nurse Care Team Related Persons Name: FANY CYR Address: home [address] [place] [address] Name: KITTY CYR Address: [place] [address]
--- OUTSIDE RECORDS SUMMARY | 2023-04-27 13:40 | XMS_ITS | Continuity of Care Document ---
Author Name Unknown Organization [facility] Address [address] [place] [address]- Care Team Providers Care Music Librarian Name Role Phone Tony Rhodes MD Primary Care Physician [facility] Date[facility]s): 05/10/22 - 06/09/22 [facility] [address] [place] [address]- Allergies, Adverse Reactions, Alerts Substance Reaction Severity [...] Pneumococcal Vacc (oldterm) 05/12/99 Given 1Location History: [facility] 2Admin Note: VIS GIVEN 3Location History: [facility] 4Admin Note: GIVEN BY ANDIE DOC BY JUDAH 5Admin Note: GIVEN IN CLINIC SHAM 6Admin Note: [employer] [facility] 7Admin Note: H1N1 Medications acetaminophen [...] 5 Refills, Maintenance, 07/29/19 13:25:00 EDT, Powder, [facility], 167, cm, 04/30/19 15:55:00 EST, Height, 70.2, kg, 07/31/18 6:33:00EDT, Dry Weight Start Date: 07/29/19 Status: Ordered amiodarone 200 mg oral tablet 2, tablet, By Mouth, 2 times a day, # 120 tablet, Refills 6, Maintenance, 02/18/22 9:48:00 EDT, Route to Pharmacy Electronically, [facility], 172.7, cm, 01/18/22 14:53:00 EDT, Height, [...] 3 Refills, Soft Stop, 09/05/21 15:18:00 EDT, [facility], 167, cm, 08/20/21 12:32:00 EDT, Height [...] 02/18/22 9:47:00 EDT, Route to Pharmacy Electronically, [facility], 172.7, cm, 01/18/22 14:53:00 EDT, Height, [...] 0 Refills, Maintenance, 02/25/22 12:41:00 EDT, Tablet, [facility], 168, cm, 02/25/22 12:11:00 EDT, Height, [...] 25 tablet, 0 Refills, 10/18/20 16:42:00 EDT, [facility], 167, cm, 08/21/20 14:59:00 EDT, Height [...] Care Nurse Name: Jena Barron RN Position: [facility] RN Member Role: Primary Care Nurse Name: Ana Maria Gonzalez RN Position: [facility] RN Member Role: Primary Care Nurse Name: Rae Vigil RN Position: [facility] ED RN W/OE and Tasks Member Role: Primary Care Nurse Name: Tony Rhodes MD Position: [facility] Primary Care Physician Member Role: PCP Address: Address: [address] [place] [id number]- Name: Rachel Brown RN Position: [facility] RN Member Role: Primary Care Nurse Name: Lucia Denton RN Position: [facility] RN Member Role: Primary Care Nurse Name: Chelita Hernandez RN Position: [facility] RN Member Role: Primary Care Nurse Name: Elizabeth Taylor Position: [facility] RN Member Role: Primary Care Nurse Name: Batsheva Herring RN Position: [facility] AMB Nurse Member Role: Primary Care Nurse Name: Roxana Hutchison RN Position: [facility] RN Member Role: Primary Care Nurse Name: Mary Mckeon RN Position: [facility] AMB Nurse Member Role: Primary Care Nurse Care Team Related Persons Name: FANY CYR Address: home [address] [place] [address] Name: KITTY CYR Address: [place] [address]
--- OUTSIDE RECORDS SUMMARY | 2023-04-27 13:40 | XMS_ITS | Continuity of Care Document ---
Author Name Unknown Organization [facility] Address [address] [place] [address]- Care Team Providers Care Fiber Designer Name Role Phone Tony Rhodes MD Primary Care Physician [facility]): 05/17/22 - 06/16/22 [facility] Adult [address] [place] [address]- Allergies, Adverse Reactions, Alerts Substance Reaction Severity [...] Pneumococcal Vacc (oldterm) 05/12/99 Given 1Location History: [facility] 2Admin Note: VIS GIVEN 3Location History: [facility] 4Admin Note: GIVEN BY ANDIE DOC BY JUDAH 5Admin Note: GIVEN IN CLINIC SHAM 6Admin Note: [employer] [facility] 7Admin Note: H1N1 Medications [...] 5 Refills, Maintenance, 07/29/19 13:25:00 EDT, Powder, [facility], 167, cm, 04/30/19 15:55:00 EST, Height, 70.2, kg, 07/31/18 6:33:00EDT, Dry Weight Start Date: 07/29/19 Status: Ordered amiodarone 200 mg oral tablet 2, tablet, By Mouth, 2 times a day, # 120 tablet, Refills 6, Maintenance, 02/18/22 9:48:00 EDT, Route to Pharmacy Electronically, [facility], 172.7, cm, 01/18/22 14:53:00 EDT, Height, [...] 3 Refills, Soft Stop, 09/05/21 15:18:00 EDT, [facility], 167, cm, 08/20/21 12:32:00 EDT, Height [...] 02/18/22 9:47:00 EDT, Route to Pharmacy Electronically, [facility], 172.7, cm, 01/18/22 14:53:00 EDT, Height, [...] tablet, 2 Refills, Maintenance, 02/18/22 9:48:00 EDT, [facility], 172.7, cm, 01/18/22 14:53:00 EDT, Height, [...] 25 tablet, 0 Refills, 10/18/20 16:42:00 EDT, [facility], 167, cm, 08/21/20 14:59:00 EDT, Height Start Date: 10/18/20 Status: Ordered omeprazole 20 mg oral delayed release tablet 1 tablet = 20 mg, By Mouth, Daily in AM, Maintenance, 09/21/21 16:06:00 EDT Start Date: 09/21/21 Status: Ordered pentoxifylline 400 mg oral tablet, extended release 1, tablet, By Mouth, 3 times a day, # 90 tablet, Refills 11, Route to Pharmacy Electronically, [facility], 167, cm, 08/20/21 12:32:00 EDT, Height [...] Active 1colo 2004 polyp, refuses repeat colo 2011 2LUE 3post cabg afib, s/p cva 4LUE Social History Social History Type Response Smoking Status Current every day sm oker; Other: 1-1/2 packs of cigarettes daily; entered on: 10/23/17 Sex Patient Care team information Care Team Personnel Name: Ana Maria Cruz RN Position: [facility] RN Member Role: Primary Care Nurse Name: Morena Abraham RN Position: [facility] RN Member Role: Primary Care Nurse Name: Jena Barron RN Position: [facility] RN Member Role: Primary Care Nurse Name: Ana Maria Gonzalez RN Position: [facility] RN Member Role: Primary Care Nurse Name: Rae Vigil RN Position: [facility] ED RN W/OE and Tasks Member Role: Primary Care Nurse Name: Tony Rhodes MD Position: [facility] Primary Care Physician Member Role: PCP Address: Address: [address] [place] [id number] Name: Rachel Brown RN Position: [facility] RN Member Role: Primary Care Nurse Name: Lucia Denton RN Position: [facility] RN Member Role: Primary Care Nurse Name: Chelita Hernandez RN Position: [facility] RN Member Role: Primary Care Nurse Name: Elizabeth Taylor Position: [facility] RN Member Role: Primary Care Nurse Name: Batsheva Herring RN Position: [facility] NELIDA Nurse Member Role: Primary Care Nurse Name: Roxana Hutchison RN Position: [facility] RN Member Role: Primary Care Nurse Name: Mary Mckeon RN Position: [facility] AMB Nurse Member Role: Primary Care Nurse Care Team Related Persons Name: FANY CYR Address: home [address] [place] [address] Name: KITTY CYR Address: [place] [address]
--- OUTSIDE RECORDS SUMMARY | 2023-04-27 13:40 | XMS_ITS | Continuity of Care Document ---
Author Name Unknown Organization [facility] Address [address] [place] [address]- Care Team Providers Care Scale Adjuster Name Role Phone Meagan DILL, Tony Gaines Primary Care Physician [facility] 07[facility]22 - 08/21/22 [facility] [address], [place] [address] Attending Physician: Tony Rhodes MD Admitting Physician: Tony Rhodes MD Allergies, Adverse Reactions, Alerts Substance Reaction Severity Status Vioxx Hypertension Mild Active Immunizations Given and Recorded Vaccine Date Status Refusal Reason [id number] bivalent booster vax 03/11/22 Recorded influenza virus [...] 05/12/99 Given 1Location History: [facility] 2Admin Note: VIS GIVEN 3Location History: [facility] [place] 4Admin Note: GIVEN BY JOHAN BOWERS BY JUDAH 5Admin Note: GIVEN IN CLINIC SHAM 6Admin Note: [employer] [facility] 7Admin Note: H1N1 Medications acetaminophen 325 [...] Gm, 0 Refills, Maintenance, 08/01/22 15:26:00 EDT, [facility], Partial fill upon patient request if the prescription is for a schedule II opioid drug., 170, cm, 08/01/22 14:54:00 EDT, Height, 45.7, kg, 030... Start Date: 08/01/22 Status: Ordered albuterol 90 mcg/inh inhalation powder 2 puffs, Inhalation, Every 4 hours, PRN as needed, # 1 each, 5 Refills, Maintenance, 07/29/19 13:25:00 EDT, Powder, [facility], 167, cm, 04/30/19 15:55:00 EST, Height, [...] 3 Refills, Soft Stop, 09/05/21 15:18:00 EDT, [facility], 167, cm, 08/20/21 12:32:00 EDT, Height Start Date: 09/05/21 Status: Ordered Colace sodium 100 mg oral capsule 100 mg, 1, capsule, By Mouth, 2 times a day, # 60 capsule, Refills 0, Tot. Refills 0, Maintenance, 06/24/22 16:00:00 EST, Route to Pharmacy Electronically, [facility], Partial fill upon patient request if the prescription is for a schedule II opi... Start Date: 06/24/22 Status: Ordered collagenase topical 250 u/gm ointment 1 application, Topically, Daily, apply moist dressing over the santyl, triad cream on surrouding skin and DSD over all, # 90 Gm, 0 Refills, Maintenance, 07/08/22 13:04:00 EST, Ointment, [facility], Partial fill upon patient request if th... Start Date: 07/08/22 Status: Ordered Eliquis 5 mg oral tablet 1 tablet = 5 mg, By Mouth, 2 times a day, # 60 tablet, 0 Refills, Maintenance, 02/25/22 12:41:00 EDT, Tablet, [facility], 168, cm, 02/25/22 12:11:00 EDT, Height, 57.7, kg, 02/22/22 23:09:00 EDT,Dry Weight Start Date: 02/25/22 Stop Date: 03/27/22 Status: Ordered Keppra 500 mg oral tablet 1 tablet = 500 mg, By Mouth, 2 times a day, # 60 tablet, 6 Refills, Maintenance, 03/01/21 14:03:00 EDT, Tablet, [facility], Partial fill upon patient request if [...] tablet, 2 Refills, Maintenance, 02/18/22 9:48:00 EDT, [facility], 172.7, cm, 01/18/22 14:53:00 EDT, Height, 68.2, kg, 09/21/21 17:43:00 EDT, Dry Weight Start Date: 02/18/22 Status: Ordered MiraLax oral powder for reconstitution = 17 Gm, By Mouth, Daily, dissolve in water before taking, # 255 Gm, 0 Refills, Maintenance, 07/08/22 9:59:00 EST, REC Powder, [facility], Partial fill upon patient [...] 07/08/22 9:58:00 EST, Route to Pharmacy Electronically, [facility], Partial fill upon... Start Date: 07/08/22 Status: Ordered pentoxifylline 400 mg oral tablet, extended release 1, tablet, By Mouth, 3 times a day, # 90 tablet, Refills 11, Route to Pharmacy Electronically, [facility], 167, cm, 08/20/21 12:32:00 EDT, Height [...] Team Personnel Name: Morena Abraham RN Position: [facility] SN RN Member Role: Primary Care Nurse Name: Jena Barron RN Position: [facility] RN Member Role: Primary Care Nurse Name: Faith Cheek RN Position: [facility] RN Member Role: Primary Care Nurse Name: Rodney He RN Position: [facility] RN Member Role: Primary Care Nurse Name: Barbara Snider RN Position: [facility] SN RN Member Role: Primary Care Nurse Name: Ana Maria Gonzalez RN Position: [facility] RN Member Role: Primary Care Nurse Name: Rae Vigil RN Position: [facility] RN Member Role: Primary Care Nurse Name: Johan Montes RN Position: [facility] RN Member Role: Primary Care Nurse Name: Tony Rhodes MD Position: [facility] Primary Care Physician Member Role: PCP Address: Address: [address] [place] [id number] Name: Milad Rodríguez Position: [facility] RN Member Role: Primary Care Nurse Name: Rachel Brown RN Position: [facility] RN Member Role: Primary Care Nurse Name: Lucia Denton RN Position: [facility] RN Member Role: Primary Care Nurse Name: Bill Velazquez RN Position: [facility] RN Member Role: Primary Care Nurse Name: Chelita Hernandez RN Position: [facility] RN Member Role: Primary Care Nurse Name: Donald Purcell RN Position: [facility] RN Member Role: Primary Care Nurse Name: Shameka Hicks RN Position: [facility] RN Member Role: Primary Care Nurse Name: Lynette Wooten RN Position: [facility] RN Member Role: Primary Care Nurse Name: Batsheva Herring RN Position: [facility] OB RN Member Role: Primary Care Nurse Name: Roxana Hutchison RN Position: [facility] RN Member Role: Primary Care Nurse Name: David Mensah RN Position: [facility] RN Member Role: Primary Care Nurse Name: Mary Mckeon RN Position: [facility] NELIDA Nurse Member Role: Primary Care Nurse Care Team Related Persons Name: FANY CYR Address: home [address] [place] [id number] Name: KITTY CYR Address: [place] [address]
--- OUTSIDE RECORDS SUMMARY | 2023-04-27 13:40 | XMS_ITS | Continuity of Care Document ---
Author Name Unknown Organization [facility] Address [address] [place] [address]- Care Team Providers Care Car Body Inspector Name Role Phone Tony Rhodes MD Primary Care Physician [facility]): 01/21/23 - 02/20/23 [facility] Adult [address] [place] [address]- Allergies, Adverse Reactions, Alerts Substance Reaction Severity Status Vioxx Hypertension Mild Active Immunizations Given and Recorded Vaccine Date Status Refusal Reason [id number] bivalent booster vax 03/11/22 Recorded influenza virus vaccine, inactivated 03/11/22 Driss rded influenza virus vaccine, inactivated 02/07/21 Driss rded influenza virus vaccine, inactivated 05/22/18 Give n influenza virus vaccine, inactivated 02/25/17 Dirss rded influenza virus vaccine, inactivated 04/05/16 Give [...] HOSPITAL 2Admin Note: VIS GIVEN 3Location History: [facility] 4Admin Note: GIVEN BY JOHAN BOWERS BY JUDAH 5Admin Note: GIVEN IN CLINIC [facility] 6Admin Note: Nourish [facility] 7Admin Note: H1N1 Medications acetaminophen 325 [...] Tony Rhodes MD Position: [facility] Physician - Primary Care Member Role: PCP Address: Address: [address] [place] [address]- Name: Rachel Brown RN Position: [facility] RN Member Role: Primary Care Nurse Name: Lucia Denton RN Position: S RN Member Role: Primary Care Nurse Name: Quin Oliveira RN Position: [facility] RN Member Role: Primary Care Nurse Name: Chelita Hernandez RN Position: [facility] RN Member Role: Primary Care Nurse Name: Lynette Leon RN Position: [facility] RN Member [...] Roxana Hutchison RN Position: [facility] AMB Nurse Member Role: Primary Care Nurse Name: David Mensah RN Position: [facility] RN Member Role: Primary Care Nurse Name: Mary Mckeon RN Position: [facility] AMB Nurse Member Role: Primary Care Nurse Care Team Related Persons Name: FANY CYR Address: [address] [address] Name: KITTY CYR
--- OUTSIDE RECORDS SUMMARY | 2023-04-27 13:41 | XMS_ITS | Continuity of Care Document ---
Author Name Unknown Organization [facility] Address [address] [place] [address]- Care Team Providers Care Heating And Air Conditioning Mechanic Name Role Phone Tony Rhodes MD Primary Care Physician [phone] [facility]): 12/02/22 - 01/01/23 [facility] Adult [address] [place] [address]- Allergies, Adverse Reactions, Alerts Substance Reaction Severity Status Vioxx Hypertension Mild Active Immunizations Given and Recorded Vaccine Date Status Refusal Reason [id number] bivalent booster vax 03/11/22 Recorded influenza virus [...] (oldterm) 05/12/99 Given 1Location History: [facility] 2Admin Note: VIS GIVEN 3Location History: [facility] 4Admin Note: GIVEN BY JOHAN BOWERS BY JUDAH 5Admin Note: GIVEN IN CLINIC [facility] 6Admin Note: [facility] [facility] 7Admin Note: H1N1 Medications acetaminophen 325 [...] nodule, right middle Confirmed Active Arm weakness Confirmed Active Old myocardial infarction, NSTEMI Confirmed [...] Rae Vigil RN Position: [facility] RN Member Role: Primary Care Nurse Name: Johan Monets RN Position: [facility] RN Member Role: Primary Care Nurse Name: Tony Rhodes MD Position: [facility] Physician - Primary Care Member Role: PCP Address: Address: [address] [place] [id number] Name: Rachel Brown RN Position: [facility] RN Member Role: Primary Care Nurse Name: Lucia Denton RN Position: [facility] RN Member Role: Primary Care Nurse Name: Quin Oliveira RN Position: [facility] RN Member Role: Primary Care Nurse Name: Chelita Hernandez RN Position: [facility] RN Member Role: Primary Care Nurse Name: Lynette Leon RN Position: [facility] RN Member [...] Roxana Hutchison RN Position: [facility] AMB Nurse Member Role: Primary Care Nurse Name: David Mensah RN Position: [facility] RN Member Role: Primary Care Nurse Name: Mary Mckeon RN Position: [facility] AMB Nurse Member Role: Primary Care Nurse Care Team Related Persons Name: FANY CYR Address: [place] [address] Name: KITTY CYR
--- OUTSIDE RECORDS SUMMARY | 2023-04-27 13:41 | XMS_ITS | Continuity of Care Document ---
Author Name Unknown Organization [facility] Address [address] [place] [address]- Care Team Providers Care Cane Splicer Name Role Phone Meagan DILL, Tony Gaines Primary Care Physician [facility]): 08[facility]22/22 - 09/25/22 [facility] [address] [place] [address]- Attending Physician: Karla Seo NP Referring Physician: Tony Rhodes MD Allergies, Adverse Reactions, Alerts Substance Reaction Severity Status Vioxx Hypertension Mild Active Immunizations Given and Recorded Vaccine Date Status Refusal Reason [id number] bivalent booster vax 03/11/22 Recorded influenza virus [...] Pneumococcal Vacc (oldterm) 05/12/99 Given 1Location History: [facility] [place] 2Admin Note: VIS GIVEN 3Location History: [facility] [place] [place] 4Admin Note: GIVEN BY JOHAN BOWERS BY JUDAH 5Admin Note: GIVEN IN CLINIC [facility] 6Admin Note: [employer] [facility] 7Admin Note: H1N1 Medications acetaminophen [...] Gm, 0 Refills, Maintenance, 08/01/22 15:26:00 EDT, [facility], Partial fill upon patient request if the prescription is for a schedule II opioid drug., 170, cm, 08/01/22 14:54:00 EDT, Height, 45.7, kg, 03/0... Start Date: 08/01/22 Status: Ordered albuterol 90 mcg/inh inhalation powder 2 puffs, Inhalation, Every 4 hours, PRN as needed, # 1 each, 5 Refills, Maintenance, 07/29/19 13:25:00 EDT, Powder, [facility], 167, cm, 04/30/19 15:55:00 EST, Height, [...] 1 Refills, Soft Stop, 09/04/22 16:59:00 EDT, [facility], 170, cm, 08/01/22 14:54:00 EDT, Height, 45.7, kg, 07/12/22 22:04:00 EST, DryWeight Start Date: 09/04/22 Status: Ordered cloNIDine 0.1 mg oral tablet 0.1 mg, 1, tablet, By Mouth, 2 times a day, # 60 tablet, Refills 2, Tot. Refills 2, Maintenance, 09/05/22 13:27:00 EDT, Route to Pharmacy Electronically, [facility], Partial fill upon patient request if the prescription is for a schedule II opioi... Start Date: 09/05/22 Status: Ordered Colace sodium 100 mg oral capsule 100 mg, 1, capsule, By Mouth, 2 times a day, # 60 capsule, Refills 0, Tot. Refills 0, Maintenance, 06/24/22 16:00:00 EST, Route to Pharmacy Electronically, [facility], Partial fill upon patient request if the prescription is for a schedule II opi... Start Date: 06/24/22 Status: Ordered collagenase topical 250 u/gm ointment 1 application, Topically, Daily, apply moist dressing over the santyl, triad cream on surrouding skin and DSD over all, # 90 Gm, 0 Refills, Maintenance, 07/08/22 13:04:00 EST, Ointment, [facility], Partial fill upon patient request if th... Start Date: 07/08/22 Status: Ordered Eliquis 5 mg oral tablet 1 tablet = 5 mg, By Mouth, 2 times a day, # 60 tablet, 2 Refills, Maintenance, 09/05/22 13:34:00 EDT, Tablet, [facility], 170, cm, 08/01/22 14:54:00 EDT, Height, 45.7, kg, 07/12/22 22:04:00 EST,Dry Weight Start Date: 09/05/22 Stop Date: 12/04/22 Status: Ordered Keppra 500 mg oral tablet 1 tablet = 500 mg, By Mouth, 2 times a day, # 60 tablet, 2 Refills, Maintenance, 09/05/22 13:26:00 EDT, Tablet, [facility], Partial fill upon patient request if [...] tablet, 2 Refills, Maintenance, 02/18/22 9:48:00 EDT, [facility], 172.7, cm, 01/18/22 14:53:00 EDT, Height, 68.2, kg, 09/21/21 17:43:00 EDT, Dry Weight Start Date: 02/18/22 Status: Ordered MiraLax oral powder for reconstitution = 17 Gm, By Mouth, Daily, dissolve in water before taking, # 255 Gm, 0 Refills, Maintenance, 07/08/22 9:59:00 EST, REC Powder, [facility], Partial fill upon patient [...] 07/08/22 9:58:00 EST, Route to Pharmacy Electronically, [facility], Partial fill upon... Start Date: 07/08/22 Status: Ordered pentoxifylline 400 mg oral tablet, extended release 1, tablet, By Mouth, 3 times a day, # 90 tablet, Refills 11, Route to Pharmacy Electronically, [facility], 167, cm, 08/20/21 12:32:00 EDT, Height [...] Team Personnel Name: Morena Abraham RN Position: [facility] SN RN Member Role: Primary Care Nurse Name: Jena Barron RN Position: [facility] RN Member Role: Primary Care Nurse Name: Faith Cheek RN Position: [facility] RN Member Role: Primary Care Nurse Name: Rodney He RN Position: [facility] RN Member Role: Primary Care Nurse Name: Barbara Snider RN Position: [facility] SN RN Member Role: Primary Care Nurse Name: Ana Maria Gonzalez RN Position: [facility] RN Member Role: Primary Care Nurse Name: Rae Vigil RN Position: [facility] ED RN W/OE and Tasks Member Role: Primary Care Nurse Name: Johan Montes RN Position: [facility] RN Member Role: Primary Care Nurse Name: Tony Rhodes MD Position: [facility] Primary Care Physician Member Role: PCP Address: Address: [address] [place] [address]- Name: Milad Rodríguez Position: S RN Member Role: Primary Care Nurse Name: Rachel Brown RN Position: S RN Member Role: Primary Care Nurse Name: Lucia Denton RN Position: S RN Member Role: Primary Care Nurse Name: Bill Velazquez RN Position: S RN Member Role: Primary Care Nurse Name: Chelita Hernandez RN Position: [facility] RN Member Role: Primary Care Nurse Name: Donald Purcell RN Position: [facility] RN Member Role: Primary Care Nurse Name: Shameka Hicks RN Position: [facility] RN Member Role: Primary Care Nurse Name: Lynette Wooten RN Position: [facility] RN Member Role: Primary Care Nurse Name: Batsheva Herring RN Position: [facility] OB RN Member Role: Primary Care Nurse Name: Roxana Hutchison RN Position: [facility] RN Member Role: Primary Care Nurse Name: David Mensah RN Position: [facility] RN Member Role: Primary Care Nurse Name: Mary Mckeon RN Position: [facility] AMB Nurse Member Role: Primary Care Nurse Care Team Related Persons Name: FANY CYR Address: home [address] [place] [id number] Name: KITTY CYR Address: [place] [address]
--- OUTSIDE RECORDS SUMMARY | 2023-04-27 13:41 | XMS_ITS | Continuity of Care Document ---
Author Name Unknown Organization [facility] Address [address] [place] [address]- Care Team Providers Care Integrity Engineer Name Role Phone Tony Rhodes MD Primary Care Physician [facility]22 - 07/11/22 [facility] [address] [place], [place] [address] Allergies, Adverse Reactions, Alerts Substance Reaction Severity [...] Pneumococcal Vacc (oldterm) 05/12/99 Given 1Location History: [facility] 2Admin Note: VIS GIVEN 3Location History: [facility] 4Admin Note: GIVEN BY ANDIE BOWERS BY JUDAH 5Admin Note: GIVEN IN CLINIC SHAM 6Admin Note: [employer] [facility] 7Admin [...] 5 Refills, Maintenance, 07/29/19 13:25:00 EDT, Powder, [facility], 167, cm, 04/30/19 15:55:00 EST, Height, [...] 3 Refills, Soft Stop, 09/05/21 15:18:00 EDT, [facility], 167, cm, 08/20/21 12:32:00 EDT, Height Start Date: 09/05/21 Status: Ordered Colace sodium 100 mg oral capsule 100 mg, 1, capsule, By Mouth, 2 times a day, # 60 capsule, Refills 0, Tot. Refills 0, Maintenance, 06/24/22 16:00:00 EST, Route to Pharmacy Electronically, [facility], Partial fill upon patient request if the prescription is for a schedule II opi... Start Date: 06/24/22 Status: Ordered collagenase topical 250 u/gm ointment 1 application, Topically, Daily, apply moist dressing over the santyl, triad cream on surrouding skin and DSD over all, # 90 Gm, 0 Refills, Maintenance, 07/08/22 13:04:00 EST, Ointment, [facility], Partial fill upon patient request if th... Start Date: 07/08/22 Status: Ordered Eliquis 5 mg oral tablet 1 tablet = 5 mg, By Mouth, 2 times a day, # 60 tablet, 0 Refills, Maintenance, 02/25/22 12:41:00 EDT, Tablet, [facility], 168, cm, 02/25/22 12:11:00 EDT, Height, 57.7, kg, 02/22/22 23:09:00 EDT,Dry Weight Start Date: 02/25/22 Stop Date: 03/27/22 Status: Ordered Keppra 500 mg oral tablet 1 tablet = 500 mg, By Mouth, 2 times a day, # 60 tablet, 6 Refills, Maintenance, 03/01/21 14:03:00 EDT, Tablet, [facility], Partial fill upon patient request if the prescription is for a schedule II opioid drug., 167, cm, 03/01/21 13:34:00 EDT, H... Start Date: 03/01/21 Status: Ordered levoFLOXacin 750 mg oral tablet 1 tablet = 750 mg, By Mouth, Every 48 hours, for 7 days, # 4 tablet, 0 Refills, Acute 07/15/22 9:15:00 EST, 07/08/22 9:15:00 EST, Tablet, [facility], Partial [...] tablet, 2 Refills, Maintenance, 02/18/22 9:48:00 EDT, [facility], 172.7, cm, 01/18/22 14:53:00 EDT, Height, 68.2, kg, 09/21/21 17:43:00 EDT, Dry Weight Start Date: 02/18/22 Status: Ordered MiraLax oral powder for reconstitution = 17 Gm, By Mouth, Daily, dissolve in water before taking, # 255 Gm, 0 Refills, Maintenance, 07/08/22 9:59:00 EST, REC Powder, [facility], Partial [...] 07/08/22 9:58:00 EST, Route to Pharmacy Electronically, [facility], Partial fill upon... Start Date: 07/08/22 Status: Ordered pentoxifylline 400 mg oral tablet, extended release 1, tablet, By Mouth, 3 times a day, # 90 tablet, Refills 11, Route to Pharmacy Electronically, [facility], 167, cm, 08/20/21 12:32:00 EDT, Height Start Date: 09/05/21 Status: Ordered sulfamethoxazole-trimethoprim 800 mg-160 mg oral tablet 1 tablet, By Mouth, 2 times a day, for 7 days, # 14 tablet, 0 Refills, Acute 07/15/22 9:14:00 EST, 07/08/22 9:14:00 EST, Tablet, [facility], Partial fill upon patient [...] Personnel Name: Ana Maria Cruz RN Position: [facility] RN Member Role: Primary Care Nurse Name: Morena Abraham RN Position: [facility] SN RN Member Role: Primary Care Nurse Name: Jena Barron RN Position: [facility] RN Member Role: Primary Care Nurse Name: Faith Cheek RN Position: [facility] RN Member Role: Primary Care Nurse Name: Rodney He RN Position: [facility] RN Member Role: Primary Care Nurse Name: Ana Maria Gonzalez RN Position: [facility] RN Member Role: Primary Care Nurse Name: Rae Vigil RN Position: [facility] RN Member Role: Primary Care Nurse Name: Tony Rhodes MD Position: [facility] Primary Care Physician Member Role: PCP Address: Address: [address] [place] [id number] Name: Rachel Brown RN Position: [facility] Herring RN Position: [facility] NELIDA Nurse Member Role: Primary Care Nurse Name: Barbara Post RN Position: [facility] RN Member Role: Primary Care Nurse Name: Roxana Hutchison RN Position: [facility] RN Member Role: Primary Care Nurse Name: Mary Mckeon RN Position: [facility] Nurse Member Role: Primary Care Nurse Care Team Related Persons Name: FANY CYR Address: home [address] [place] [id number] Name: KITTY CYR Address: [place] [address]
--- OUTSIDE RECORDS SUMMARY | 2023-04-27 13:41 | XMS_ITS | Continuity of Care Document ---
Author Name Unknown Organization [facility] Address [address] [place] [address]- Care Team Providers Care Taxation Consultant Name Role Phone Tony Rhodes MD Primary Care Physician [phone] Encounter [facility] Date(s): 04/19/22 - 06/08/22 [facility] [address] [place] [address]- Attending Physician: Tony Rhodes MD Admitting Physician: [...] Pneumococcal Vacc (oldterm) 05/12/99 Given 1Location History: [facility] 2Admin Note: VIS GIVEN 3Location History: [facility] 4Admin Note: GIVEN BY ANDIE BOWERS BY JUDAH 5Admin Note: GIVEN IN CLINIC SHAM 6Admin Note: [employer] [facility] 7Admin Note: H1N1 Medications [...] 5 Refills, Maintenance, 07/29/19 13:25:00 EDT, Powder, [facility], 167, cm, 04/30/19 15:55:00 EST, Height, 70.2, kg, 07/31/18 6:33:00EDT, Dry Weight Start Date: 07/29/19 Status: Ordered amiodarone 200 mg oral tablet 2, tablet, By Mouth, 2 times a day, # 120 tablet, Refills 6, Maintenance, 02/18/22 9:48:00 EDT, Route to Pharmacy Electronically, [facility], 172.7, cm, 01/18/22 14:53:00 EDT, Height, [...] 3 Refills, Soft Stop, 09/05/21 15:18:00 EDT, [facility], 167, cm, 08/20/21 12:32:00 EDT, Height [...] 02/18/22 9:47:00 EDT, Route to Pharmacy Electronically, [facility], 172.7, cm, 01/18/22 14:53:00 EDT, Height, [...] 0 Refills, Maintenance, 02/25/22 12:41:00 EDT, Tablet, [facility], 168, cm, 02/25/22 12:11:00 EDT, Height, [...] 25 tablet, 0 Refills, 10/18/20 16:42:00 EDT, [facility], 167, cm, 08/21/20 14:59:00 EDT, Height Start Date: 10/18/20 Status: Ordered omeprazole 20 mg oral delayed release tablet 1 tablet = 20 mg, By Mouth, Daily in AM, Maintenance, 09/21/21 16:06:00 EDT Start Date: 09/21/21 Status: Ordered pentoxifylline 400 mg oral tablet, extended release 1, tablet, By Mouth, 3 times a day, # 90 tablet, Refills 11, Route to Pharmacy Electronically, [facility], 167, cm, 08/20/21 12:32:00 EDT, Height [...] Care Nurse Name: Morena Abraham RN Position: [facility] RN Member Role: Primary Care Nurse Name: Jena Barron RN Position: [facility] RN Member Role: Primary Care Nurse Name: Ana Maria Gonzalez RN Position: [facility] RN Member Role: Primary Care Nurse Name: Rae Vigil RN Position: [facility] ED RN W/OE and Tasks Member Role: Primary Care Nurse Name: Tony Rhodes MD Position: [facility] Primary Care Physician Member Role: PCP Address: Address: [address] [place] [id number] [[email or web address] Name: Rachel Brown RN Position: [facility] RN Member Role: Primary Care Nurse Name: Lucia Denton RN Position: [facility] RN Member Role: Primary Care Nurse Name: Chelita Hernandez RN Position: [facility] RN Member Role: Primary Care Nurse Name: Elizabeth Taylor Position: [facility] RN Member Role: Primary Care Nurse Name: Batsheva Herring RN Position: [facility] AMB Nurse Member Role: Primary Care Nurse Name: Roxana Hutchison RN Position: [facility] RN Member Role: Primary Care Nurse Name: Mary Mckeon RN Position: [facility] AMB Nurse Member Role: Primary Care Nurse Care Team Related Persons Name: FANY CYR Address: home [address] [place] [address] Name: KITTY CYR Address: [place] [address]
--- OUTSIDE RECORDS SUMMARY | 2023-04-27 13:41 | XMS_ITS | Continuity of Care Document ---
Author Name Unknown Organization [facility] Address [address] [place] [address]- Care Team Providers Care Hammersmith Helper Name Role Phone Tony Rhodes MD Primary Care Physician [facility]counter [facility] Date(s): 07/22/22 - 08/21/22 [facility] Adult [address] [place] [address]- Allergies, Adverse Reactions, Alerts Substance Reaction Severity Status Vioxx Hypertension Mild Active Immunizations Given and Recorded Vaccine Date Status Refusal Reason [id number] bivalent booster vax 03/11/22 Recorded influenza virus vaccine, inactivated 03/11/22 Drsis rded influenza virus vaccine, inactivated 02/07/21 Driss [...] (oldterm) 05/12/99 Given 1[facility] 2Admin Note: VIS GIVEN 3Location History: [facility] 4Admin Note: GIVEN BY JOHAN BOWERS BY JUDAH 5Admin Note: GIVEN IN CLINIC SHAM 6Admin Note: [facility] 7Admin Note: H1N1 Medications acetaminophen 325 [...] Gm, 0 Refills, Maintenance, 08/01/22 15:26:00 EDT, [facility], Partial fill upon patient request if the prescription is for a schedule II opioid drug., 170, cm, 08/01/22 14:54:00 EDT, Height, 45.7, kg, 03... Start Date: 08/01/22 Status: Ordered albuterol 90 mcg/inh inhalation powder 2 puffs, Inhalation, Every 4 hours, PRN as needed, # 1 each, 5 Refills, Maintenance, 07/29/19 13:25:00 EDT, Powder, [facility], 167, cm, 04/30/19 15:55:00 EST, Height, [...] 3 Refills, Soft Stop, 09/05/21 15:18:00 EDT, [facility], 167, cm, 08/20/21 12:32:00 EDT, Height Start Date: 09/05/21 Status: Ordered Colace sodium 100 mg oral capsule 100 mg, 1, capsule, By Mouth, 2 times a day, # 60 capsule, Refills 0, Tot. Refills 0, Maintenance, 06/24/22 16:00:00 EST, Route to Pharmacy Electronically, [facility], Partial fill upon patient request if the prescription is for a schedule II opi... Start Date: 06/24/22 Status: Ordered collagenase topical 250 u/gm ointment 1 application, Topically, Daily, apply moist dressing over the santyl, triad cream on surrouding skin and DSD over all, # 90 Gm, 0 Refills, Maintenance, 07/08/22 13:04:00 EST, Ointment, [facility], Partial fill upon patient request if th... Start Date: 07/08/22 Status: Ordered Eliquis 5 mg oral tablet 1 tablet = 5 mg, By Mouth, 2 times a day, # 60 tablet, 0 Refills, Maintenance, 02/25/22 12:41:00 EDT, Tablet, [facility], 168, cm, 02/25/22 12:11:00 EDT, Height, 57.7, kg, 02/22/22 23:09:00 EDT,Dry Weight Start Date: 02/25/22 Stop Date: 03/27/22 Status: Ordered Keppra 500 mg oral tablet 1 tablet = 500 mg, By Mouth, 2 times a day, # 60 tablet, 6 Refills, Maintenance, 03/01/21 14:03:00 EDT, Tablet, [facility], Partial fill upon patient request if [...] Refills, Maintenance, 07/08/22 9:59:00 EST, REC Powder, [facility], Partial fill upon patient [...] 07/08/22 9:58:00 EST, Route to Pharmacy Electronically, [facility], Partial fill upon... Start [...] 0 Refills, Maintenance, 12/19/21 12:19:00 EDT, Capsule, [facility], Partial fill upon patient request if [...] Team Personnel Name: Morena Abraham RN Position: [facility] SN RN Member Role: Primary Care Nurse Name: Jena Barron RN Position: [facility] RN Member Role: Primary Care Nurse Name: Faith Cheek RN Position: [facility] RN Member Role: Primary Care Nurse Name: Rodney He RN Position: [facility] RN Member Role: Primary Care Nurse Name: Barbara Snider RN Position: [facility] SN RN Member Role: Primary Care Nurse Name: Ana Maria Gonzalez RN Position: [facility] RN Member Role: Primary Care Nurse Name: Rae Vigil RN Position: [facility] RN Member Role: Primary Care Nurse Name: Johan Montes RN Position: [facility] RN Member Role: Primary Care Nurse Name: Tony Rhodes MD Position: [facility] Primary Care Physician Member Role: PCP Address: Address: [address] [place] [id number] Name: Milad Rodríguez Position: [facility] RN Member Role: Primary Care Nurse Name: Rachel Brown RN Position: [facility] RN Member Role: Primary Care Nurse Name: Lucia Denton RN Position: [facility] RN Member Role: Primary Care Nurse Name: Bill Velazquez RN Position: [facility] RN Member Role: Primary Care Nurse Name: Chelita Hernandez RN Position: [facility] RN Member Role: Primary Care Nurse Name: Donald Purcell RN Position: [facility] RN Member Role: Primary Care Nurse Name: Shameka Hicks RN Position: [facility] RN Member Role: Primary Care Nurse Name: Lynette Wooten RN Position: [facility] RN Member Role: Primary Care Nurse Name: Batsheva Herring RN Position: [facility] OB RN Member Role: Primary Care Nurse Name: Roxana Hutchison RN Position: [facility] RN Member Role: Primary Care Nurse Name: David Mensah RN Position: [facility] RN Member Role: Primary Care Nurse Name: Mary Mckeon RN Position: [facility] Nurse Member Role: Primary Care Nurse Care Team Related Persons Name: FANY CYR Address: home [address] [place] [id number] Name: KITTY CYR Address: [place] [address]
--- OUTSIDE RECORDS SUMMARY | 2023-04-27 13:41 | XMS_ITS | Continuity of Care Document ---
Author Name Unknown Organization [facility] Address [address] [place] [address]- Care Team Providers Care Dry Color Tester Name Role Phone Meagan DILL, Tony Gaines Primary Care Physician [phone] Encounter [facility] Date(s): 07/22/22 - 08/21/22 [facility] [address] [place], [place] [address] Attending Physician: AdmDelgado mojica Admitting Physician: Admtr, [id number] Referring Physician: Admtr, Ar8 Allergies, Adverse Reactions, Alerts Substance Reaction Severity Status Vioxx Hypertension Mild Active Immunizations Given and Recorded Vaccine Date Status Refusal Reason [id number] bivalent booster vax 03/11/22 Recorded influenza virus [...] Pneumococcal Vacc (oldterm) 05/12/99 Given 1Location History: [facility] 2Admin Note: VIS GIVEN 3Location History: [facility] 4Admin Note: GIVEN BY JOHAN BOWERS BY JUDAH 5Admin Note: GIVEN IN CLINIC SHAM 6Admin Note: [facility] [employer] [facility] 7Admin Note: H1N1 Medications acetaminophen 325 [...] Gm, 0 Refills, Maintenance, 08/01/22 15:26:00 EDT, [facility], Partial fill upon patient request if the prescription is for a schedule II opioid drug., 170, cm, 08/01/22 14:54:00 EDT, Height, 45.7, kg, 030... Start Date: 08/01/22 Status: Ordered albuterol 90 mcg/inh inhalation powder 2 puffs, Inhalation, Every 4 hours, PRN as needed, # 1 each, 5 Refills, Maintenance, 07/29/19 13:25:00 EDT, Powder, [facility], 167, cm, 04/30/19 15:55:00 EST, Height, [...] 3 Refills, Soft Stop, 09/05/21 15:18:00 EDT, [facility], 167, cm, 08/20/21 12:32:00 EDT, Height [...] 0 Refills, Maintenance, 07/08/22 13:04:00 EST, Ointment, [facility], Partial fill upon patient request if th... Start Date: 07/08/22 Status: Ordered Eliquis 5 mg oral tablet 1 tablet = 5 mg, By Mouth, 2 times a day, # 60 tablet, 0 Refills, Maintenance, 02/25/22 12:41:00 EDT, Tablet, [facility], 168, cm, 02/25/22 12:11:00 EDT, Height, 57.7, kg, 02/22/22 23:09:00 EDT,Dry Weight Start Date: 02/25/22 Stop Date: 03/27/22 Status: Ordered Keppra 500 mg oral tablet 1 tablet = 500 mg, By Mouth, 2 times a day, # 60 tablet, 6 Refills, Maintenance, 03/01/21 14:03:00 EDT, Tablet, [facility], Partial fill upon patient request if [...] tablet, 2 Refills, Maintenance, 02/18/22 9:48:00 EDT, [facility], 172.7, cm, 01/18/22 14:53:00 EDT, Height, 68.2, kg, 09/21/21 17:43:00 EDT, Dry Weight Start Date: 02/18/22 Status: Ordered MiraLax oral powder for reconstitution = 17 Gm, By Mouth, Daily, dissolve in water before taking, # 255 Gm, 0 Refills, Maintenance, 07/08/22 9:59:00 EST, REC Powder, [facility], Partial fill upon patient [...] 07/08/22 9:58:00 EST, Route to Pharmacy Electronically, [facility], Partial fill upon... Start Date: 07/08/22 Status: Ordered pentoxifylline 400 mg oral tablet, extended release 1, tablet, By Mouth, 3 times a day, # 90 tablet, Refills 11, Route to Pharmacy Electronically, [facility], 167, cm, 08/20/21 12:32:00 EDT, Height Start Date: 09/05/21 Status: Ordered Vitamin D3 10,000 intl units oral capsule 1 capsule = 250 mcg, By Mouth, Every week, # 6 capsule, 0 Refills, Maintenance, 12/19/21 12:19:00 EDT, Capsule, [facility], Partial fill upon patient request if [...] daily; entered on: 10/23/17 Sex Note * Event Display: Non Lab Results Authored Date: Patient Care team information Care Team Personnel Name: Morena Abraham RN Position: [facility] SN RN Member Role: Primary Care Nurse Name: Jena Barron RN Position: [facility] RN Member Role: Primary Care Nurse Name: Faith Cheek RN Position: [facility] RN Member Role: Primary Care Nurse Name: Rodney He RN Position: [facility] RN Member Role: Primary Care Nurse Name: Barbara Snider RN Position: [facility] SN RN Member Role: Primary Care Nurse Name: Ana Maria Gonzalez RN Position: [facility] RN Member Role: Primary Care Nurse Name: Rae Vigil RN Position: [facility] RN Member Role: Primary Care Nurse Name: Johan Montes RN Position: [facility] RN Member Role: Primary Care Nurse Name: Tony Rhodes MD Position: [facility] Primary Care Physician Member Role: PCP Address: Address: [address] [place] [id number] Name: Milad Rodríguez Position: [facility] RN Member Role: Primary Care Nurse Name: Rachel Brown RN Position: [facility] RN Member Role: Primary Care Nurse Name: Lucia Denton RN Position: [facility] RN Member Role: Primary Care Nurse Name: Bill Velazquez RN Position: [facility] RN Member Role: Primary Care Nurse Name: Chelita Hernandez RN Position: [facility] RN Member Role: Primary Care Nurse Name: Donald Purcell RN Position: [facility] RN Member Role: Primary Care Nurse Name: Shameka Hicks RN Position: [facility] RN Member Role: Primary Care Nurse Name: Lynette Wooten RN Position: [facility] RN Member Role: Primary Care Nurse Name: Batsheva Herring RN Position: [facility] OB RN Member Role: Primary Care Nurse Name: Roxana Hutchison RN Position: [facility] RN Member Role: Primary Care Nurse Name: David Mensah RN Position: [facility] RN Member Role: Primary Care Nurse Name: Mary Mckeon RN Position: [facility] NELIDA Nurse Member Role: Primary Care Nurse Care Team Related Persons Name: KLARISSAFANY Address: home [address] [place] [id number] Name: KITTY CYR Address: [place] [address]
--- OUTSIDE RECORDS SUMMARY | 2023-04-27 13:42 | XMS_ITS | Continuity of Care Document ---
Author Name Unknown Organization [facility] Address [address] [place] [address]- Care Team Providers Care Bale Opener Name Role Phone Tony Rhodes MD Primary Care Physician [facility] Date[facility]s): 07/23[facility]22 - 08/22/22 [facility] Adult [address] [place] [address]- Allergies, Adverse Reactions, Alerts Substance Reaction Severity Status Vioxx Hypertension Mild Active Immunizations Given and Recorded Vaccine Date Status Refusal Reason [id number] bivalent booster vax 03/11/22 Recorded influenza virus [...] (oldterm) 05/12/99 Given 1[facility] 2Admin Note: VIS GIVEN 3Location History: [facility] 4Admin Note: GIVEN BY JOHAN BOWERS BY JUDAH 5Admin Note: GIVEN IN CLINIC SHAM 6Admin Note: [facility] 7Admin Note: H1N1 Medications acetaminophen [...] Gm, 0 Refills, Maintenance, 08/01/22 15:26:00 EDT, [facility], Partial fill upon patient request if the prescription is for a schedule II opioid drug., 170, cm, 08/01/22 14:54:00 EDT, Height, 45.7, kg, 03... Start Date: 08/01/22 Status: Ordered albuterol 90 mcg/inh inhalation powder 2 puffs, Inhalation, Every 4 hours, PRN as needed, # 1 each, 5 Refills, Maintenance, 07/29/19 13:25:00 EDT, Powder, [facility], 167, cm, 04/30/19 15:55:00 EST, Height, [...] 3 Refills, Soft Stop, 09/05/21 15:18:00 EDT, [facility], 167, cm, 08/20/21 12:32:00 EDT, Height Start Date: 09/05/21 Status: Ordered Colace sodium 100 mg oral capsule 100 mg, 1, capsule, By Mouth, 2 times a day, # 60 capsule, Refills 0, Tot. Refills 0, Maintenance, 06/24/22 16:00:00 EST, Route to Pharmacy Electronically, [facility], Partial fill upon patient request if the prescription is for a schedule II opi... Start Date: 06/24/22 Status: Ordered collagenase topical 250 u/gm ointment 1 application, Topically, Daily, apply moist dressing over the santyl, triad cream on surrouding skin and DSD over all, # 90 Gm, 0 Refills, Maintenance, 07/08/22 13:04:00 EST, Ointment, [facility], Partial fill upon patient request if th... Start Date: 07/08/22 Status: Ordered Eliquis 5 mg oral tablet 1 tablet = 5 mg, By Mouth, 2 times a day, # 60 tablet, 0 Refills, Maintenance, 02/25/22 12:41:00 EDT, Tablet, [facility], 168, cm, 02/25/22 12:11:00 EDT, Height, 57.7, kg, 02/22/22 23:09:00 EDT,Dry Weight Start Date: 02/25/22 Stop Date: 03/27/22 Status: Ordered Keppra 500 mg oral tablet 1 tablet = 500 mg, By Mouth, 2 times a day, # 60 tablet, 6 Refills, Maintenance, 03/01/21 14:03:00 EDT, Tablet, [facility], Partial fill upon patient request if [...] tablet, 2 Refills, Maintenance, 02/18/22 9:48:00 EDT, [facility], 172.7, cm, 01/18/22 14:53:00 EDT, Height, 68.2, kg, 09/21/21 17:43:00 EDT, Dry Weight Start Date: 02/18/22 Status: Ordered MiraLax oral powder for reconstitution = 17 Gm, By Mouth, Daily, dissolve in water before taking, # 255 Gm, 0 Refills, Maintenance, 07/08/22 9:59:00 EST, REC Powder, [facility], Partial fill upon patient [...] EST, Route to Pharmacy Electronically, [facility], Partial fill upon... Start Date: 07/08/22 Status: Ordered pentoxifylline 400 mg oral tablet, extended release 1, tablet, By Mouth, 3 times a day, # 90 tablet, Refills 11, Route to Pharmacy Electronically, [facility], 167, cm, 08/20/21 12:32:00 EDT, Height Start Date: 09/05/21 Status: Ordered Vitamin D3 10,000 intl units oral capsule 1 capsule = 250 mcg, By Mouth, Every week, # 6 capsule, 0 Refills, Maintenance, 12/19/21 12:19:00 EDT, Capsule, [facility], Partial fill upon patient request if [...] Tony Rhodes MD Position: [facility] Primary Care Physician Member Role: PCP Address: Address: [address] [place] [id number] Name: Milad Rodríguez Position: [facility] RN Member Role: Primary Care Nurse Name: Rachel Brown RN Position: [facility] RN Member Role: Primary Care Nurse Name: Lucia Denton RN Position: [facility] RN Member Role: Primary Care Nurse Name: Bill Velazquez RN Position: [facility] RN Member Role: Primary Care Nurse Name: Chelita Hernandez RN Position: [facility] RN Member Role: Primary Care Nurse Name: Donald Purcell RN Position: [facility] RN Member Role: Primary Care Nurse Name: Shameka Hicks RN Position: [facility] RN Member Role: Primary Care Nurse Name: Lynette Wooten RN Position: [facility] RN Member Role: Primary Care Nurse Name: Batsheva Herring RN Position: [facility] OB RN Member Role: Primary Care Nurse Name: Roxana Hutchison RN Position: [facility] RN Member Role: Primary Care Nurse Name: David Mensah RN Position: [facility] RN Member Role: Primary Care Nurse Name: Mary Mckeon RN Position: [facility] Nurse Member Role: Primary Care Nurse Care Team Related Persons Name: FANY CYR Address: home [address] [place] [id number] Name: KITTY CYR Address: [place] [address]
--- OUTSIDE RECORDS SUMMARY | 2023-04-27 13:42 | XMS_ITS | Continuity of Care Document ---
Author Name Unknown Organization [facility] Address [address] [place] [id number]- Care Team Providers Care Steel Detailer Name Role Phone Tony Rhodes MD Primary Care Physician Encounter [facility] Date(s): 09/12/22 - 10/12/22 [facility] [address] [place] [address]- Attending Physician: Delgado Christine Admitting Physician: Delgado Christine Referring Physician: Delgado Christine Allergies, Adverse Reactions, Alerts Substance Reaction Severity Status Vioxx Hypertension Mild Active Immunizations Given and Recorded Vaccine Date Status Refusal Reason [id number] bivalent booster vax 03/11/22 Recorded influenza virus [...] Pneumococcal Vacc (oldterm) 05/12/99 Given 1Location History: [facility] 2Admin Note: VIS GIVEN 3Location History: [facility] 4Admin Note: GIVEN BY JOHAN BOWERS BY JUDAH 5Admin Note: GIVEN IN [facility]INIC [facility] 6Admin Note: [employer] [facility] 7Admin Note: H1N1 Medications acetaminophen 325 [...] Gm, 0 Refills, Maintenance, 08/01/22 15:26:00 EDT, [facility], Partial fill upon patient request if the prescription is for a schedule II opioid drug., 170, cm, 08/01/22 14:54:00 EDT, Height, 45.7, kg, 03/0... Start Date: 08/01/22 Status: Ordered albuterol 90 mcg/inh inhalation powder 2 puffs, Inhalation, Every 4 hours, PRN as needed, # 1 each, 5 Refills, Maintenance, 07/29/19 13:25:00 EDT, Powder, [facility], 167, cm, 04/30/19 15:55:00 EST, Height, [...] 1 Refills, Soft Stop, 09/04/22 16:59:00 EDT, [facility], 170, cm, 08/01/22 14:54:00 EDT, Height, 45.7, kg, 07/12/22 22:04:00 EST, DryWeight Start Date: 09/04/22 Status: Ordered cloNIDine 0.1 mg oral tablet 0.1 mg, 1, tablet, By Mouth, 2 times a day, # 60 tablet, Refills 2, Tot. Refills 2, Maintenance, 09/05/22 13:27:00 EDT, Route to Pharmacy Electronically, [facility], Partial fill upon patient request if the prescription is for a schedule II opioi... Start Date: 09/05/22 Status: Ordered Colace sodium 100 mg oral capsule 100 mg, 1, capsule, By Mouth, 2 times a day, # 60 capsule, Refills 0, Tot. Refills 0, Maintenance, 06/24/22 16:00:00 EST, Route to Pharmacy Electronically, [facility], Partial fill upon patient request if the prescription is for a schedule II opi... Start Date: 06/24/22 Status: Ordered collagenase topical 250 u/gm ointment 1 application, Topically, Daily, apply moist dressing over the santyl, triad cream on surrouding skin and DSD over all, # 90 Gm, 0 Refills, Maintenance, 07/08/22 13:04:00 EST, Ointment, [facility], Partial fill upon patient request [...] 2 Refills, Maintenance, 09/05/22 13:26:00 EDT, Tablet, [facility], Partial fill upon patient request if [...] tablet, 2 Refills, Maintenance, 02/18/22 9:48:00 EDT, [facility], 172.7, cm, 01/18/22 14:53:00 EDT, Height, 68.2, kg, 09/21/21 17:43:00 EDT, Dry Weight Start Date: 02/18/22 Status: Ordered MiraLax oral powder for reconstitution = 17 Gm, By Mouth, Daily, dissolve in water before taking, # 255 Gm, 0 Refills, Maintenance, 07/08/22 9:59:00 EST, REC Powder, [facility], Partial fill upon patient [...] 07/08/22 9:58:00 EST, Route to Pharmacy Electronically, [facility], Partial fill upon... Start Date: 07/08/22 Status: Ordered pentoxifylline 400 mg oral tablet, extended release 1, tablet, By Mouth, 3 times a day, # 90 tablet, Refills 11, Route to Pharmacy Electronically, [facility], 167, cm, 08/20/21 12:32:00 EDT, Height Start Date: 09/05/21 Status: Ordered Vitamin D3 10,000 intl units oral capsule 1 capsule = 250 mcg, By Mouth, Every week, # 6 capsule, 0 Refills, Maintenance, 12/19/21 12:19:00 EDT, Capsule, [facility], Partial fill upon patient request if [...] Team Personnel Name: Morena Abraham RN Position: [facility] SN RN Member Role: Primary Care Nurse Name: Jena Barron RN Position: [facility] RN Member Role: Primary Care Nurse Name: Faith Cheek RN Position: [facility] RN Member Role: Primary Care Nurse Name: Rodney He RN Position: [facility] RN Member Role: Primary Care Nurse Name: Barbara Snider RN Position: [facility] SN RN Member Role: Primary Care Nurse Name: Ana Maria Gonzalez RN Position: [facility] RN Member Role: Primary Care Nurse Name: Rae Vigil RN Position: [facility] RN Member Role: Primary Care Nurse Name: Johan Montes RN Position: [facility] RN Member Role: Primary Care Nurse Name: Tony Rhodes MD Position: [facility] Physician - Primary Care Member Role: PCP Address: Address: [address] [place] [id number]- Name: Milad Rodríguez Position: [facility] RN Member Role: Primary Care Nurse Name: Rachel Brown RN Position: [facility] RN Member Role: Primary Care Nurse Name: Lucia Denton RN Position: [facility] RN Member Role: Primary Care Nurse Name: Bill Velazquez RN Position: S RN Member Role: Primary Care Nurse Name: Chelita Hernandez RN Position: [facility] RN Member Role: Primary Care Nurse Name: Donald Purcell RN Position: [facility] RN Member Role: Primary Care Nurse Name: Shameka Hicks RN Position: [facility] RN Member Role: Primary Care Nurse Name: Lynette Wooten RN Position: [facility] RN Member Role: Primary Care Nurse Name: Batsheva Herring RN Position: [facility] OB RN Member Role: Primary Care Nurse Name: Roxana Hutchison RN Position: [facility] AMB Nurse Member Role: Primary Care Nurse Name: David Mensah RN Position: [facility] RN Member Role: Primary Care Nurse Name: Mary Mckeon RN Position: [facility] AMB Nurse Member Role: Primary Care Nurse Care Team Related Persons Name: FANY CYR Address: home [address] [place] [id number] Name: KITTY CYR Address: [place] [address]
--- OUTSIDE RECORDS SUMMARY | 2023-04-27 13:42 | XMS_ITS | Continuity of Care Document ---
Author Name Unknown Organization [facility] Address [address] [place] [address]- Care Team Providers Care Plug Shaper Hand Name Role Phone Tony Rhodes MD Primary Care Physician [phone] Encounter [facility] Date(s): 05/30/22 - 06/29/22 [facility] [address] [place] [address]- Allergies, Adverse Reactions, Alerts Substance Reaction Severity [...] Pneumococcal Vacc (oldterm) 05/12/99 Given 1Location History: [facility] 2Admin Note: VIS GIVEN 3Location History: [facility] 4Admin Note: GIVEN BY ANDIE BOWERS BY JUDAH 5Admin Note: GIVEN IN [facility] 6Admin Note: [employer] [facility] 7Admin Note: H1N1 Medications acetaminophen [...] 5 Refills, Maintenance, 07/29/19 13:25:00 EDT, Powder, [facility], 167, cm, 04/30/19 15:55:00 EST, Height, 70.2, kg, 07/31/18 6:33:00EDT, Dry Weight Start Date: 07/29/19 Status: Ordered amiodarone 200 mg oral tablet 2, tablet, By Mouth, 2 times a day, # 120 tablet, Refills 6, Maintenance, 02/18/22 9:48:00 EDT, Route to Pharmacy Electronically, [facility], 172.7, cm, 01/18/22 14:53:00 EDT, Height, [...] tablet, 2 Refills, Maintenance, 02/18/22 9:48:00 EDT, [facility], 172.7, cm, 01/18/22 14:53:00 EDT, Height, [...] 25 tablet, 0 Refills, 10/18/20 16:42:00 EDT, [facility], 167, cm, 08/21/20 14:59:00 EDT, Height [...] Personnel Name: Ana Maria Cruz RN Position: [facility] RN Member Role: Primary Care Nurse Name: Morena Abraham RN Position: [facility] RN [...] Care Physician Member Role: PCP Address: Address: [address] [place] [id number]- Name: Rachel Brown RN Position: [facility] RN Member Role: Primary Care Nurse Name: Lucia Denton RN Position: [facility] RN Member Role: Primary Care Nurse Name: Chelita Hernandez RN Position: [facility] RN Member Role: Primary Care Nurse Name: Elizabeth Taylor Position: [facility] RN Member Role: Primary Care Nurse Name: Lynette Wooten RN Position: [facility] RN Member Role: Primary Care Nurse Name: Batsheva Herring RN Position: [facility] AMB Nurse Member Role: Primary Care Nurse Name: Roxana Hutchison RN Position: [facility] RN Member Role: Primary Care Nurse Name: Mary Mckeon RN Position: [facility] AMB Nurse Member Role: Primary Care Nurse Care Team Related Persons Name: FANY CYR Address: home [address] [place] [address] Name: KITTY CYR Address: [place] [address]
[2023-04-27 13:58] LABS: Basophils Absolute Auto 0.1 X10*3/uL (0.0-0.2); Basophils Percent Auto 0.6 % (0-2); Eosinophils Absolute Auto 0.6 X10*3/uL (0.0-0.4); Eosinophils Percent Auto 4.3 % (0-4); Hematocrit 37.4 % (42.0-52.0); Hemoglobin 12.2 g/dl (14.0-18.0); Imm Gran Abs Auto 0.06 X10*3/uL (0.00-0.03); Imm Gran Pct Auto 0.4 % (0.0-0.4); Lymphocytes Absolute Auto 2.3 X10*3/uL (1.2-4.9); Lymphocytes Percent Auto 15.4 % (20-40); MANUAL DIFF FLAG SCAN; Mean Corpuscular HGB Conc 32.6 g/dl (31.0-36.0); Mean Corpuscular Hemoglobin 25.7 pg (27.0-33.0); Mean Corpuscular Volume 78.9 fL (80.0-98.0); Mean Platelet Volume 8.7 fL (9.4-12.4); Monocytes Absolute Auto 1.6 X10*3/uL (0.1-1.2); Monocytes Percent Auto 10.8 % (2-11); Neutrophils Percent Auto 68.5 % (45-73); Platelet Count 192 X10*3/uL (160-400); Red Blood Count 4.74 X10*6/uL (4.60-5.80); Red Cell Distribution Width 17.5 % (11.0-16.0); SCAN SMEAR FLAG 1; White Blood Count 14.6 X10*3/uL (4.8-10.8)
[2023-04-27 14:16] LABS: Alanine Aminotransferase 12 U/L (0-40); Albumin Level 3.8 g/dL (3.5-5.0); Alkaline Phosphatase 91 U/L (39-117); Anion Gap 17 (12-20); Aspartate Amino Transferase 18 U/L (5-37); Bilirubin Total 0.3 mg/dL (0.0-1.0); Blood Urea Nitrogen 14 mg/dL (9-16); Carbon Dioxide 21 mmol/L (22-29); Chloride 104 mmol/L (96-108); Estimated Glomerular Filt Rate > 60; Glucose Random 102 mg/dL (60-115); Potassium 3.6 mmol/L (3.3-5.1); Sodium 138 mmol/L (135-145); Total Protein 7.5 g/dL (6.5-8.0)
[2023-04-27 14:19] LABS: SLIDE REVIEW VERIFIED
--- NOTE | 2023-04-27 14:26 | ED_ITS ---
HPI - General Adult General Chief complaint: Seizure Stated complaint: SEIZURE, W/ HX. AGITATED Time Seen by Provider: 04/27/23 14:18 History of Present Illness HPI narrative: The patient is a 67-year-old male with multiple medical problems including history of atrial fibrillation and previous strokes. He also has a history of a left hedkl-sbb-dlka amputation. He lives at home with his . He was last hospitalized at this hospital in July of 2022 of for a stroke. At that time he had presented with acute left arm weakness. He receive tPA and had improvement in his symptoms. He was monitored for 12 hours and had improvement in his symptoms and then refused additional testing such as an MRI. He signed out AMA. He did have an ultrasound prior to discharge that showed severe right-sided carotid stenosis. Previous records show a history of a seizure disorder. The patient has been on levetiracetam in the past. Apparently the patient has been living at home with his . He continues to smoke. Today he had a seizure and his called 911. The patient has no recollection of having a seizure or how he got to the hospital. The patient's says that the patient has not had a seizure in a long time. She says that his seizures today seemed like a typical seizure. She says that he had not seem done well earlier in the day before having a seizure today. He has not had any fever, sweats, chills. He has not had any complaints of headache or chest pain or abdominal pain. No cough or sputum. No vomiting. 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 The patient has been on a lot of different medications in the past. After my discussion with his I have a strong suspicion that he is not currently on any medications regularly. She says he has not seen a doctor since after being hospitalized in July. She further says that she looks after the wounds on his left leg and stump. There is no professional nursing at home. She says that he still smokes 1 pack per day. Related Data Previous Rx's Medication Instructions Recorded levetiracetam 500 mg tablet 500 mg PO BID #60 tabs 01/19/23 (Keppra) Allergies Allergy/AdvReac Type Severity Reaction Status Date / Time No Known Allergies Allergy Verified 04/27/23 13:37 Review of Systems 2 Review of Systems: Yes all other systems are reviewed and are negative [facility] Past Medical History Medical History Fall Leukocytosis MDD (major depressive disorder), recurrent episode, moderate Opioid use disorder, moderate, dependence Pneumonitis Pneumonia Atherosclerotic cardiovascular disease History of hemorrhagic cerebrovascular accident (CVA) without residual deficits Subclavian arterial stenosis Atrial flutter Cardiomyopathy Opioid use disorder Seizure disorder Acute combined systolic and diastolic congestive heart failure COPD (chronic obstructive pulmonary disease) Cocaine abuse with intoxication Toxic encephalopathy 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 Hyperlipemia CHF (congestive heart failure) Seizure-like activity Cardiac arrest Atrial flutter Drug abuse Atrial fibrillation Paroxysmal atrial fibrillation PVD (peripheral vascular disease) CAD (coronary artery disease) Heroin use Surgical History S/P CABG x 2 Social History Social History Household Members: Spouse Housing: House Do you presently have visiting nurse or other home services: Yes Unable to assess alcohol history related to: Unable to respond Alcohol intake: current Alcohol intake frequency: holidays/special occasions only Comment: Pt refused bed alarm, [employer] camera outside patient's room for safety. Patient Tobacco Use Status: Current everyday Tobacco user Tobacco use type: Cigarette Cigarette Packs Per Day: 2 Cigarettes Per Day: 40.0 Years Smoked: 30 e-Cigarette/Vaping Use: Currently Using Second Hand Smoke Exposure: No Substance Use Type: Heroin Advance Directives: Yes Advance Directives on File: Yes Advance Directives Date on File: 01/12/21 service: No Current occupational status: retired Physical Exam ED Vital Signs: Vital Signs - 24 hr 04/27/23 13:23 04/27/23 13:32 04/27/23 16:14 Temperature 97.8 F 98.2 F 98.3 F Pulse Rate 111 H 103 H 91 Respiratory Rate 14 18 22 H Blood Pressure 134/85 134/85 137/71 Pulse Oximetry 91 L 95 95 Oxygen Delivery Method Room Air Nasal Cannula Nasal Cannula with ETCO2 Oxygen Flow Rate 2 BMI result Body Mass Index 22.2 Const Other: The patient is an obviously chronically ill man who is awake and alert. He does not seem in acute distress. He answers questions. He does not seem well- oriented to recent events however. HENMT Other: Face is symmetrical. Tongue is midline. Mucous membranes moist. Eyes Other: Pupils are round equal, conjunctivae are clear, extraocular movements intact. Neck Other: Moving his neck easily. No JVD. Chest Other: Patient is mildly tachycardic. He has regular rate rhythm without murmur. Resp Other: Lungs are clear bilaterally. Cardio Other: Mildly tachycardic. He has regular rate and rhythm with no murmur. GI Other: Abdomen is soft and nontender. Skin Other: Patient has significant wounds. The most significant is at the tip of his stump of the left above the knee amputation. This is a deep wound with some exposure of the distal femur bone. He also has wounds over both greater trochanters. Neuro Other: The patient is awake and alert. He speaks quite loudly and with pressure. He knows that he is at the hospital. He is able to tell me that he lives at home with his but he has no recollection of how he got to the hospital. He moves his arms symmetrically and does not seem to have a focal deficit. Extrem Other: The patient has a left mgtdq-wbp-dyjq amputation with a wound at the end of the stump. There are also wounds over both greater trochanters.. Right leg has no edema. NIH Stroke Scale Level of Consciousness: Alert Level of Consciousness Questions: Answers both questions correctly Level of Consciousness Commands: Performs both tasks correctly Best Gaze: Normal Visual: No visual loss Facial Palsy: Normal Motor Arm (Right): No drift Motor Arm (Left): No drift Motor Leg (Right): No drift Motor Leg (Left): Amputation or joint fusion Limb Ataxia: Ambutation or joint fusion Sensory: Normal Best Language: No aphasia Dysarthia: Normal Extinction and Inattention: No abnormality Score: 0 Medications Administered Discontinued Medications Generic Name Dose Route Start Last Admin Trade Name Freq PRN Reason Stop Dose Admin Levetiracetam 1,000 mg in 100 mls @ 400 mls/hr 04/27/23 14:52 04/27/23 16:35 Keppra IV 04/27/23 15:06 Infused ONCE ONE Infusion Sodium Chloride 1,000 mls @ 999 mls/hr 04/27/23 15:15 04/27/23 15:30 Ns IV 04/27/23 16:15 999 mls/hr .Q1H1M [facility] Administration Medical Decision Making Medical Decision Making [facility] Narrative: The patient was brought to the hospital by ambulance after having apparently had a seizure at home. The patient does not have a recollection of this episode. He is a very poor historian although he is currently awake and alert. Old records suggest that the patient has a history of a seizure disorder and that he has been prescribed levetiracetam in the past. It is not clear if he is taking this medication however. I spoke to his . His was very vague as to how reliably the patient takes any prescribed medications and she thought that he might not have been seen by any doctors for several months even though he has numerous medical problems. A major concern is that he has multiple areas of skin breakdown and significant wounds. The most dramatic of these wounds is at the tip of his left bbdrw-wgz-rkkq amputation stump where the tip of the amputated femur is visible through the wound. I consulted Dr. Downs general surgery regarding this wound. She recommended treatment for presumed osteomyelitis and hospitalization for ongoing wound care and additional plans for managing this problem. We are therefore obtaining blood cultures and starting Zosyn and vancomycin. With regard to the patient's seizure disorder the patient was given 1 g of IV levetiracetam. Additionally we did head CT that indicates an infarct in the left cerebellum which is either acute or subacute. On exam the patient has fairly symmetrical finger-nose of his arms. I cannot do cerebellar testing of the left leg as he has a left peoys-dio-pdvx amputation. The patient does not seem to have a measurable an NIH stroke scale. Therefore his NIH stroke scale is 0. The patient will be admitted to the hospitalist service for ongoing care of his wounds and presumed osteomyelitis as well as further investigations of what seems to be a left cerebellar infarct and also ongoing management of his multiple medical problems including a seizure disorder. Lab Data 04/27/23 13:52 04/27/23 13:52 Labs: Lab Results 04/27/23 Range/Units 13:52 WBC 14.6 H (4.8-10.8) X10*3/uL RBC 4.74 (4.60-5.80) X10*6/uL Hgb 12.2 L (14.0-18.0) g/dl Hct 37.4 L (42.0-52.0) % MCV 78.9 L (80.0-98.0) fL MCH 25.7 L (27.0-33.0) pg MCHC 32.6 (31.0-36.0) g/dl RDW 17.5 H (11.0-16.0) % Plt Count 192 (160-400) X10*3/uL MPV 8.7 L (9.4-12.4) fL Immature Gran % (Auto) 0.4 (0.0-0.4) % Neut % (Auto) 68.5 (45-73) % Lymph % (Auto) 15.4 L (20-40) % [place] % (Auto) 10.8 (2-11) % Eos % (Auto) 4.3 H (0-4) % Baso % (Auto) 0.6 (0-2) % Lymph # (Auto) 2.3 (1.2-4.9) X10*3/uL [place] # (Auto) 1.6 H (0.1-1.2) X10*3/uL Eos # (Auto) 0.6 H (0.0-0.4) X10*3/uL Baso # (Auto) 0.1 (0.0-0.2) X10*3/uL Abs Immat Gran (auto) 0.06 H (0.00-0.03) X10*3/uL Absolute Neuts (auto) 10.0 H (2.0-8.3) x10*3/uL Absolute Nucleated RBC 0.000 (0.0-0.012) X10*3/uL Nucleated RBC % (auto) 0.0 (0.0-0.2) /100WBC Smear Tech's Comments VERIFIED ESR 19 H (0-15) MM/HR Sodium 138 (135-145) mmol/L Potassium 3.6 (3.3-5.1) mmol/L Chloride 104 (96-108) mmol/L Carbon Dioxide 21 L (22-29) mmol/L Anion Gap 17 (12-20) BUN 14 (9-16) mg/dL Creatinine 0.85 (0.5-1.4) mg/dL Estim Creat Clear Calc 58.0 Estimated GFR > 60 Random Glucose 102 (60-115) mg/dL Calcium 9.0 D (8.4-10.2) mg/dL Magnesium 2.2 (1.6-2.6) mg/dL Total Bilirubin 0.3 (0.0-1.0) mg/dL AST 18 (5-37) U/L ALT 12 (0-40) U/L Alkaline Phosphatase 91 (39-117) U/L C-Reactive Protein 0.91 H (< or = 0.50) mg/dL Total Protein 7.5 (6.5-8.0) g/dL Albumin 3.8 (3.5-5.0) g/dL Independent Interpretation I performed an independent interpretation of an: EKG Interpretation: EKG at 14:18 shows sinus tachycardia 104 beats per minute. There is rightward axis. QTC is 518. No distinct change from previous EKG. Critical Care Time Critical Care Time Critical Care Time: Yes Total Critical Care Time: 35 Attestation: The patient was critically ill with a high probability of imminent or life- threatening deterioration. I spent greater than 30 minutes of discontinuous time evaluating the patient, delivering critical care at the bedside, discussing evaluating data with consultants. Critical care time does not include time spent performing separately billable procedures or teaching. Time spent performing critical care with 35 minutes. Discharge Plan Discharge Clinical Impression: Osteomyelitis, Seizure, Cerebellar infarction Patient Disposition: Admitted As Inpatient
--- NOTE | 2023-04-27 14:41 | PC.NURSE ---
pt was cleaned, changed into hospital attire, library monitor applied- labs obtained. pt has multiple open wounds, one on the right greater trochanter, measuring 0.75in in diameter, draining foul purulence. tunnelin wound present on right buttock, with foul smelling brown drainage. left AKA site at hip with small opwn tunneling area with bone visible. wounds were cleansed with NS, patted dry followed by skin prep and Allevyn dressings. developing open area on left buttock also cleansed with NS followed by skin prep and Allevyn dressing for protection and comfort. Images of wounds forwarded to Md Nicole via [employer] for chart
--- NOTE | 2023-04-27 14:55 | MHC.EDTECH ---
Patient inc of stool/ patient changed over and cleaned
[2023-04-27] MEDS: levETIRAcetam in NaCl (iso-os) 1,000 MG/100 ML PIGGYBACK 400 MG IV (15:30)
[2023-04-27] MEDS: 0.9 % Sodium Chloride 1,000 ML 999 ML IV (15:30)
[2023-04-27 15:31] LABS: Erythrocyte Sedimentation Rate 19 MM/HR (0-15)
[2023-04-27 15:36] LABS: C Reactive Protein 0.91 mg/dL (< or = 0.50); Magnesium 2.2 mg/dL (1.6-2.6)
--- NOTE | 2023-04-27 16:42 | PC.NURSE ---
rec call from pt brother Rainer- had asked him to call and get update on status- updated pt has labs/ scan pending, pt has been seen by General surgery- would like to potentially take pt to OR to explore and clean out wounds- advised family to call w/ any questions.
--- NOTE | 2023-04-27 16:48 | PM.IMHP ---
History of Present Illness Date of Service: 04/27/23 Attending physician on admission: Perlita Bradley Chief Complaint: Seizure at home Pt is a 68-year-old male with a PMH significant for?paroxysmal AFib not compliant with Eliquis, CAD s/p CABG, PAD s/p AKA, hx prior CVAs (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 Patient is alert and oriented x3, but unaware of what brought him into the hospital. Attempted to call his spouse but received no answer. Called his brother, his secondary contact, who knew no details other than pt's called the ambulance after he suffered an apparent seizure at home. Patient himself denies any acute medical complaints, and is rather naive about his own PMH. Denies chest pain/pressure, palpitations. No headache, acute vision changes. No hemiparesis, numbness and tingling, or weakness. Denies shortness of breath. No fever, chills, nausea, vomiting, abdominal pain. Patient does admit he has been noncompliant with his home medications, saying that he stopped taking them sometime ago; is unable to clarify when he last took his medications or why he stopped taking them. Patient does admit to recently using both cocaine and heroin, though he cannot state exactly when or how much he last used. Brother verifies significant past history of substance abuse, and believes patient uses heroin almost daily. Upon examination in the ED patient has multiple chronic, open wounds, including the exposed end of left femur from AKA stump, and bilateral hip wounds. Patient states he mostly stays in bed during the day, though he does have a wheelchair he can use for ambulation around the house.Of note, patient was last at the hospital in July of this year and admitted to ICU for acute CVA status post tPA. Patient did get a carotid Doppler which showed right severe carotid stenosis, but patient refused any further workup including echocardiogram, MRI, or further monitoring. He than left AMA less than 24 hours after presentation to the ED. patient states he did not follow-up with PCP, and has not seen any clinician since leaving the hospital. In the ED pt was afebrile and normotensive, but tachycardic up to 111 and tachypneic up to 22, satting at 91% on RA. Labs were significant for leukocytosis of 14.6 {chronically elevated), stable microcytic anemia of H&H 12.2/37.4, and MCV 78.9, otherwise largely unremarkable. Electrolytes grossly WNL. Renal function baseline. Lactic acid WNL at 1.0. Hepatic function WNL. Troponin detectable at 6.1. ESR mildly elevated at 19 with C reactive protein 0.91. CXR was unremarkable. X-ray of left femur showed mid left femoral amputation, but otherwise unremarkable. X-ray of hip and pelvis found no acute fracture or dislocation in left hip and unremarkable right hip. CT?of head showed multi focal hypodensity involving the left cerebellar hemisphere, new when compared to head CT on 01/19/2023. Findings concerning for acute to subacute infarct. EKG demonstrated sinus tachycardia of 108 with PACs and aberrant conduction, but no evidence of significant ST elevations or depressions. Pt was treated with Keppra, IVF, Zosyn and vancomycin. Pt will be admitted to the hospital for treatment and further evaluation of possible breakthrough seizure, acute versus subacute CVA, and chronic nonhealing wounds. Review of Systems Review of Systems: Patient himself has no acute medical complaints at this time, though he is a poor historian and unaware of what brought him into the hospital [facility] Medical History Fall Leukocytosis MDD (major depressive disorder), recurrent episode, moderate Opioid use disorder, moderate, dependence Pneumonitis Pneumonia Atherosclerotic cardiovascular disease History of hemorrhagic cerebrovascular accident (CVA) without residual deficits Subclavian arterial stenosis Atrial flutter Cardiomyopathy Opioid use disorder Seizure disorder Acute combined systolic and diastolic congestive heart failure COPD (chronic obstructive pulmonary disease) Cocaine abuse with intoxication Toxic encephalopathy 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 Hyperlipemia CHF (congestive heart failure) Seizure-like activity Cardiac arrest Atrial flutter Drug abuse Atrial fibrillation Paroxysmal atrial fibrillation PVD (peripheral vascular disease) CAD (coronary artery disease) Heroin use Surgical History S/P CABG x 2 Social History Household Members: Spouse Housing: House Do you presently have visiting nurse or other home services: Yes Unable to assess alcohol history related to: Unable to respond Alcohol intake: current Alcohol intake frequency: holidays/special occasions only Comment: Pt refused bed alarm, [employer] camera outside patient's room for safety. Patient Tobacco Use Status: Current everyday Tobacco user Tobacco use type: Cigarette Cigarette Packs Per Day: 2 Cigarettes Per Day: 40.0 Years Smoked: 30 e-Cigarette/Vaping Use: Currently Using Second Hand Smoke Exposure: No Substance Use Type: Heroin Advance Directives Date on File: 01/12/21 service: No Current occupational status: retired [employer] Allergies Allergy/AdvReac Type Severity Reaction Status Date / Time No Known Allergies Allergy Verified 04/27/23 13:37 Active Medications: Current Medications Piperacillin Sod/Tazobactam (Sod 4.5 gm/ Sodium Chloride) 100 mls @ 200 mls/hr IV ONCE ONE Stop: 04/27/23 16:52 Vancomycin HCl 1,250 mg/ (Sodium Chloride) 250 mls @ 166.667 mls/hr IV ONCE ONE Stop: 04/27/23 17:53 Home Medications Medication Instructions Recorded Confirmed Last Taken Type amiodarone 200 mg tablet 400 mg PO BID 04/27/23 04/27/23 2 Weeks Ago History ~04/13/23 apixaban 5 mg tablet (Eliquis) 5 mg PO BID 04/27/23 04/27/23 2 Weeks Ago History ~04/13/23 aspirin 81 mg tablet,delayed 81 mg PO DAILY 04/27/23 04/27/23 2 Weeks Ago History release ~04/13/23 atorvastatin 40 mg tablet 40 mg PO DAILY 04/27/23 04/27/23 2 Weeks Ago History ~04/13/23 clonidine HCl 0.1 mg tablet 0.1 mg PO BID 04/27/23 04/27/23 2 Weeks Ago History ~04/13/23 docusate sodium 100 mg capsule 100 mg PO BID 04/27/23 04/27/23 2 Weeks Ago History ~04/13/23 folic acid 1 mg tablet 1 mg PO DAILY 04/27/23 04/27/23 2 Weeks Ago History ~04/13/23 furosemide 20 mg tablet 20 mg PO DAILY 04/27/23 04/27/23 2 Weeks Ago History ~04/13/23 metoprolol succinate 25 mg 25 mg PO DAILY 04/27/23 04/27/23 2 Weeks Ago History tablet,extended release 24 hr ~04/13/23 Physical Exam Vital Signs and Narrative: Vital Signs: Last Vital Signs Temp 98.3 F 04/27/23 16:14 Pulse 91 04/27/23 16:14 Resp 22 H 04/27/23 16:14 BP 137/71 04/27/23 16:14 Pulse Ox 95 04/27/23 16:14 O2 Del Method Nasal Cannula wit h Capnography 04/27/23 16:14 O2 Flow Rate 2 04/27/23 16:14 Oxygen Flow Rate 2 04/27/23 13:32 BMI result Body Mass Index 22.2 Constitutional: Alert, disheveled, in no acute distress. Mental Status: Oriented to person, place, and time, but not to situation. Eyes: Pupils are equal, round, and reactive to light. Ear, Nose, and Throat: Oropharynx clear, mucous membranes moist. Ears and nose without deformities. Trachea midline. Respiratory: Clear to auscultation bilaterally. No wheezing, rales, or rhonchi. Cardiovascular: S1, S2 regular. No murmurs, rubs, or gallops. Gastrointestinal: Abdomen soft, non-tender, non-distended. Normal bowel sounds. Neurologic: Cranial nerves II-XII are grossly intact bilaterally. No focal neurological deficits. Moves all extremities spontaneously. Skin: Bilateral open hip wounds around greater trochanter. As pictured below. Musculoskeletal: No cyanosis or clubbing. Extremities: No edema. Open wound at distal left stump with exposed femur, purulent discharge, and area of surrounding erythema. As pictured below Psychiatric: Normal mood and affect. Results Labs 04/27/23 13:52 04/27/23 13:52 Labs: Laboratory Results - last 24 hr 04/27/23 13:52 MCV 78.9 L MCH 25.7 L MCHC 32.6 RDW 17.5 H Plt Count 192 MPV 8.7 L Immature Gran % (Auto) 0.4 Neut % (Auto) 68.5 Lymph % (Auto) 15.4 L [place] % (Auto) 10.8 Eos % (Auto) 4.3 H Baso % (Auto) 0.6 Lymph # (Auto) 2.3 [place] # (Auto) 1.6 H Eos # (Auto) 0.6 H Baso # (Auto) 0.1 Abs Immat Gran (auto) 0.06 H Absolute Neuts (auto) 10.0 H Absolute Nucleated RBC 0.000 Nucleated RBC % (auto) 0.0 Smear Tech's Comments VERIFIED ESR 19 H Anion Gap 17 Estim Creat Clear Calc 58.0 Estimated GFR > 60 Random Glucose 102 Calcium 9.0 D Magnesium 2.2 Total Bilirubin 0.3 AST 18 ALT 12 Alkaline Phosphatase 91 C-Reactive Protein 0.91 H Total Protein 7.5 Albumin 3.8 Imaging Radiologist's Impressions: Impressions Chest X-Ray 04/27/23 15:21 IMPRESSION: 1. Unremarkable chest exam. 2. Mid left femoral amputation. The stump appears unremarkable. 3. No acute fracture or dislocation left hip. The right hip joint space appears unremarkable. Mild degenerative disc changes lower lumbar spine. Femur X-Ray 04/27/23 15:21 IMPRESSION: 1. Unremarkable chest exam. 2. Mid left femoral amputation. The stump appears unremarkable. 3. No acute fracture or dislocation left hip. The right hip joint space appears unremarkable. Mild degenerative disc changes lower lumbar spine. Pelvis X-Ray 04/27/23 15:21 IMPRESSION: 1. Unremarkable chest exam. 2. Mid left femoral amputation. The stump appears unremarkable. 3. No acute fracture or dislocation left hip. The right hip joint space appears unremarkable. Mild degenerative disc changes lower lumbar spine. Head CT 04/27/23 15:27 IMPRESSION: -Multifocal hypodensity involving the left cerebellar hemisphere, new when compared to recent head CTS. Findings are concerning for acute to subacute infarct. -Mucosal thickening of the paranasal sinuses. Stable to slightly more prominent polypoid protrusion along the left nasopharynx extending into the posterior left nasal cavity. Assessment and Plan (1) Seizure: Status: Acute (2) Chronic wound: Status: Acute Plan Pt is a 68-year-old male with a PMH significant for?paroxysmal AFib not compliant with Eliquis, CAD s/p CABG, PAD s/p AKA, hx prior CVAs (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 Pt will be admitted to the hospital for treatment and further evaluation of breakthrough seizure, subacute CVA, and chronic nonhealing wounds. Breakthrough seizure reports patient had seizure earlier this afternoon of unclear duration Most likely secondary to medication noncompliance: pt has been noncompliant with home medications including Keppra, unclear when last taken Patient loaded with 1 g Keppra in ED Will continue home Keppra Neurology consult Monitor on telemetry Chronic nonhealing wounds with cellulitis and sepsis, question of osteomyelitis Has multiple chronic, open wounds, including the exposed end of left femur at distal AKA stump, and bilateral hip wounds Meets sepsis criteria: Tachycardia, tachypnea, leukocytosis; lactic acid WNL 1.0 Patient given IVF and started on broad-spectrum antibiotics in ED Despite exposed femur, osteomyelitis less likely: ESR and CRP only mildly elevated Will treat with vancomycin and Zosyn for now ID consult General surgery consult Wound care consult Subacute CVA Patient with history of multiple CVAs, last diagnosed here in July [address]22 CT of head with new multifocal hypodensity in left cerebral hemisphere concerning for acute to subacute infarct Likely secondary to medication noncompliance Restart aspirin and statin MRI of head and brain without contrast Carotid ultrasound Echocardiogram Lipid panel Neurology consult PT/OT evaluation Cardiac diet Monitor on telemetry Polysubstance use disorder Patient endorses recent cocaine and heroin use, cannot clarify exactly how much or how often Contacted patient's brother who says he uses almost daily Place on COWS P.r.n. morphine for pain, Ativan for anxiety Check tox screen Addiction Medicine consult Paroxysmal AFib Patient has been noncompliant with Eliquis and metoprolol Will restart metoprolol, amiodarone Hold Eliquis for now d/t possible surgical procedure Full Code Attending:?Dr. Bradley DVT Prophylaxis: Lovenox Pt will require a hospitalization of at least two nights for treatment and further evaluation of breakthrough seizure, chronic open, nonhealing wounds, and likely subacute CVA. Patient will require IV antibiotics, close monitoring, specialist consultation, in likely surgical intervention to revise his left stump. Quality Stroke Does the patient have a stroke diagnosis?: No Reason for No Anti-thrombotic by Day Two: Contraindicated VTE Prior VTE?: No VTE Risk Level:: Medical - moderate - high VTE Device Contraindication: Treatment Not Indicated VTE Drug Contraindication: N/A - Med Ordered
[2023-04-27 17:03] LABS: Troponin-I High Sensitivity 6.1 ng/L (<3.5-35.0)
[2023-04-27] MEDS: Piperacillin Sodium/Tazobactam 4.5 GM in 0.9 % Sodium Chloride 100 ML IV (17:31)
--- NOTE | 2023-04-27 18:23 | PHA.MEDREC ---
Pharmacy Consult ? Medication Reconciliation Pharmacy has completed the medication reconciliation. Spoke to patient's spouse to confirm meds. Per spouse, patient is not adherent to medications. Patient gets Rx from [facility] and according to spouse, all confirmed meds are current.
[2023-04-27] MEDS: Aspirin Enteric Coated 81 MG TABLET.DR PO (18:40)
[2023-04-27] MEDS: Enoxaparin Sodium 40 MG/0.4 ML SYRINGE SUBCUT (18:40)
[2023-04-27] MEDS: vancomycin HCL 1,250 MG in 0.9 % Sodium Chloride 250 ML 166.67 MG IV (18:40)
[2023-04-27 19:08] LABS: Appearance Urine Clear; Color Urine Yellow; Glucose Urine UA Negative (Negative); Leukocyte Esterase Urine Negative (Negative); Nitrite Urine Negative (Negative); Specific Gravity - Urine 1.015 (1.005-1.025); Urine Blood Negative (Negative); Urine Ketones Negative (Negative); Urine Protein Trace mg/dL (Neg-Trace)
[2023-04-27] MEDS: Nicotine 21 MG PATCH.TD24 TRANSDERMA (19:22)
--- NOTE | 2023-04-27 19:26 | PC.NURSE ---
spoke with pt with pt bruno t# [phone] via phone- sts that pt spends most of the time in his hospital bed at home. today, she says she heard a thud in his room and she found the pt thrashing for approximately 1 minute. Bruno sts that pt is non compliant with his medication. Pt is aware that pt is prescribed keppra but sts that it has been at least a few weeks since he has had any keppra. With regard to pt wounds-- Per Bruno, the last time pt had a hospitalization at [facility] they were discharged with [facility] services, bruno sts that no one ever came for the initial visit. Bruno stated to me that she was told the VNA would send someone else and they never came. This nurse questioned what they have been doing for wound care, she responded that she takes care of his wound as he will let [her] . updated spouse on plan of care encouraged to contact us with any questions/concerned.
[2023-04-27 19:28] LABS: Amphetamine Screen Urine Not Detected (Not Detect); Barbiturates, Urine Not Detected (Not Detect); Benzodiazepines Screen Urine Not Detected (Not Detect); Cannabinoid Screen Urine Not Detected (Not Detect); Cocaine Screen Urine Not Detected (Not Detect); Fentanyl, urine POSITIVE (Not Detect); Opiate Screen Urine Not Detected (Not Detect); Phencyclidine Screen Urine Not Detected (Not Detect)
[2023-04-27] MEDS: Melatonin 3 MG TABLET 6 MG PO (20:53)
[2023-04-27] MEDS: Atorvastatin Calcium 40 MG TABLET PO (20:53)
--- NOTE | 2023-04-27 21:05 | PC.NURSE ---
pt medicated per JUL-- pt req medication for sleep- melatonin 6mg given. pt repositioned in bed, warm blankets given. call bobby within reach- care ongoing.
--- NOTE | 2023-04-27 23:18 | PC.NURSE ---
pt presents to ED after reported seizure by family at home. Pt arrived A/OX3 . Significant PMH of afib ( non compliant with eliquis), CAD, CVA, seizures ( non compliant with Keppra), HTN, HLD, COPD (not on home 02) Pt is currently on 2 liters as he desat , substance abuse ( positive for fentanyl). on a COWs. and addiction med consult. Wound care as would on R buttck, R hip and exposed bone noted to [place]. ct HEAD- concern for acute -subacute infarct- passed swallow study, neuro consult . Regular diet.
[2023-04-28] VITALS (7 sets, daily range): BP systolic 101–142; BP diastolic 52–82; PULSE 66–83; RESP 14–20; TEMP 36.7–36.8; O2SAT 93–98; BMI 21.4
[2023-04-28] MEDS: 0.9 % Sodium Chloride Flush 3 ML SYRINGE IVFLUSH ×2 (01:15→08:19)
[2023-04-28] MEDS: Piperacillin Sodium/Tazobactam 3.375 GM in 0.9 % Sodium Chloride 50 ML IV ×4 (01:15→17:47)
--- NOTE | 2023-04-28 07:00 | CA_ITS ---
Transthoracic Echocardiogram Patient (Last, First, Middle): Phan Boateng C Gender: Male Date of : 1955 Age: 68 Procedure Date: 04/28/2023 Procedure Type: Transthoracic Echocardiogram [place] [facility] [place]: 152.4 cm Weight: 49.44 kg BSA: 1.44 m2 Heart Rate: 78 bpm BP: 107 / 65 mmHg Business Process Engineer: PORTER Hernandez MD: Rama PAN Boat Garnisher: Gustavo Cox MD Symptoms: ?CVA on CT Study Quality: Adequate ECG Rhythm: Sinus Conclusions: - 1. [id number] LV systolic dysfunction with LVEF of 40-45% with impaired relaxation abnormality with underlying regional wall motion abnormality consistent with ischemic cardiomyopathy 2. Limited cardiac valvular Dopplers within normal limits 3. Upper limits of normal ascending aortic size 4. No gross pericardial effusion Findings Procedure Information The quality of the study was technically difficult. The study quality is limited by the patients inability to tolerate the test. Left Ventricle Normal left ventricular cavity size. There is normal left ventricular wall thickness. The left ventricular systolic function is mild to moderately decreased. The visually estimated ejection fraction is between 40-45%. Spectral Doppler is indicative of an impaired relaxation filling pattern. E/E prime ratio is between 8 and 15 consistent with indeterminate filling pressures. Wall Motion Rest Echo Findings The mid inferoseptal segment is hypokinetic. The basal inferior and basal inferolateral segments are akinetic. The basal inferoseptal segment is dyskinetic. All other scored wall segments showed normal motion. Right Ventricle The right ventricle was not well visualized. Atria The left atrium is mildly dilated. Interatrial shunt cannot be excluded. The right atrium was not well visualized. Aortic Valve The aortic valve structure and function is likely normal. There is no aortic valve stenosis. There is no aortic valve regurgitation. Mitral Valve There is mild anterior mitral leaflet thickening. There is mild mitral annular calcification. There is trace mitral valve regurgitation. There is no mitral valve stenosis. Pulmonic Valve The pulmonic valve was not well visualized. Tricuspid Valve Tricuspid regurgitation envelope is inadequate for calculation of right ventricular systolic pressure. Great Vessels The pulmonary artery was not well visualized. Venous The inferior vena cava was not well visualized. Pericardium/Pleural There is no evidence of pericardial effusion. Measurements 2D Linear Measurements IVSd: 0.91 0.6-0.9/0.6-1.0 cm LVIDd: 4.79 3.9-5.3/4.2-5.9 cm LVIDd Index: 3.33 2.4-3.2/2.2-3.1 cm/m2 LVIDs: 3.09 2.0-3.6 cm LVPWd: 0.97 0.7-1.1 cm LA Diam: 3.60 2.7-3.8/3.0-4.0 cm LAIDs Index: 2.50 1.5-2.3 cm/m2 LV Mass: 193.90 67-162/88-224 g LV Mass Index: 134.65 43-95/49-115 g/m2 LVOT Diam: 1.70 3.0+(-)1.3 cm 2D Systolic Function EF 4C: 44.10 >55% EF 2C: 42.00 >55% EF BiP: 42.10 >55% Mitral Valve MV Pk E: 0.49 MV PK A: 0.99 MV Decel Time: 211.00 E/A: 0.50 E'Lateral: 5.44 E'Medial: 4.90 E/E' Med: 10.10 E/E' Lat: 9.10 PHT: 62.00 MVA PHT: 3.55 Decel [place]: 2.33 Aortic Valve AoV Pk Lebron: 1.22 AoV Mn Lebron: 0.82 AoV VTI: 0.24 AoV Pk Grad: 6.00 Aov Mn Grad: 3.00 ISIDRO Cont.VTI: 2.10 LVOT LVOT Pk Lebron: 1.16 LVOT Mn Lebron: 0.67 LVOT VTI: 0.22 LVOT Pk Grad: 5.00 LVOT Mn Grad: 2.00 LVOT Diam: 1.70 LVOT Area: 2.27 Diastolic Function MV Pk E: 0.49 MV Pk A: 0.99 E/A: 0.50 E'Medial: 4.90 E/E' Med: 10.10 E' Laterial: 5.44 E/E' Lat: 9.10 Right Ventricle TAPSE (mm): 10.60 TVS' Lebron: 11.10 Tricuspid Valve TR Pk Lebron: 1.19 TR Pk Grad: 6.00 Great Vessels Aorta Sinus of Valsalva: 3.70 2.0-3.5 cm Ao Asc: 3.50 2.1-3.4 cm Pulmonary Valve PV Pk Lebron: 1.03 Peak PV Grad: 4.00 Updated in Other Vendor System with Status of Final Gustavo Cox MD electronically signed on 04/28/2023 4:24:53 PM with status of Final
[2023-04-28 08:09] LABS: Hematocrit 34.8 % (42.0-52.0); Hemoglobin 11.5 g/dl (14.0-18.0); Mean Corpuscular Volume 78.7 fL (80.0-98.0); Mean Platelet Volume 9.3 fL (9.4-12.4); Platelet Count 172 X10*3/uL (160-400); Red Blood Count 4.42 X10*6/uL (4.60-5.80); Red Cell Distribution Width 17.5 % (11.0-16.0); White Blood Count 12.4 X10*3/uL (4.8-10.8)
[2023-04-28 08:18] LABS: Cholesterol 145 mg/dL (<200); HDL Cholesterol 33 mg/dL (>40); LDL Cholesterol Calculated 93 mg/dL (<100); Triglycerides 99 mg/dL (<150)
[2023-04-28] MEDS: Aspirin Enteric Coated 81 MG TABLET.DR PO (08:18)
[2023-04-28] MEDS: Nicotine 21 MG PATCH.TD24 TRANSDERMA (08:18)
[2023-04-28] MEDS: Morphine Sulfate 4 MG/ML CARTRIDGE IVPUSH (08:18)
--- NOTE | 2023-04-28 08:50 | MHC.CM.PN ---
CM met with Patient at bedside and addressed IMM with him; original was given to Patient and a copy has been placed on the chart. 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 PCP is Dr. Tony Rhodes.
[2023-04-28 09:28] LABS: Creatinine Clr Calc Pharmacy 59.6; Estimated Glomerular Filt Rate > 60
--- NOTE | 2023-04-28 10:31 | P.CONGS_ITS ---
History of Present Illness Consult details Consult date: 04/28/23 Narrative: 68 year old male patient presenting with a history of multiple medical problems found to have an open left AKA stump and decub in the hip. He was admitted to the hospitalist service for management of a reported seizure while at home. His PMH includes Afib, non-compliant on Eliquis, CAD, PAD, prior CVA, seizure disorder, HTN, HLD, COPD and substance abuse. He reports having the amputation approximately 3 months ago although he appears to be a poor historian. This was performed at an outside institution. He also has bilateral hip decubiti which are being care for by his at home. He currently has foam dressings applied. Surgical consultation was requested for management of the decubitus as well as the open wound of the left AKA. Review of Systems 2 Review of Systems: Yes Unobtainable due to mental condition Neurologic: Reports confusion Psychiatric: Psychiatric: Reports confusion PMFSH Past Medical History Medical History Fall Leukocytosis MDD (major depressive disorder), recurrent episode, moderate Opioid use disorder, moderate, dependence Pneumonitis Pneumonia Atherosclerotic cardiovascular disease History of hemorrhagic cerebrovascular accident (CVA) without residual deficits Subclavian arterial stenosis Atrial flutter Cardiomyopathy Opioid use disorder Seizure disorder Acute combined systolic and diastolic congestive heart failure COPD (chronic obstructive pulmonary disease) Cocaine abuse with intoxication Toxic encephalopathy 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 Hyperlipemia CHF (congestive heart failure) Seizure-like activity Cardiac arrest Atrial flutter Drug abuse Atrial fibrillation Paroxysmal atrial fibrillation PVD (peripheral vascular disease) CAD (coronary artery disease) Heroin use Surgical History Surgical History S/P CABG x 2 Social History Social History Household Members: Spouse Housing: House Do you presently have visiting nurse or other home services: No Unable to assess alcohol history related to: Unable to respond Alcohol intake: current Alcohol intake frequency: holidays/special occasions only Comment: Pt refused bed alarm, [employer] camera outside patient's room for safety. Patient Tobacco Use Status: Current everyday Tobacco user Tobacco use type: Cigarette Cigarette Packs Per Day: 1.5 Cigarettes Per Day: 30.0 Years Smoked: 30 Smoked in Last 30 Days: Yes e-Cigarette/Vaping Use: Currently Using Second Hand Smoke Exposure: No Use of substances other than those prescribed or required for medical reasons: Yes Substance Use Type: Heroin Substance Use Frequency: Daily Last Used Substance: Days (ago) Currently Displaying Signs/Symptoms of Drug Intoxication Withdrawal: No Any prior treatment program specific to substance use: Yes Have you been hit, kicked, punched, or otherwise hurt by someone within the past year? If so, by whom?: No Do you feel safe in your current relationship?: Yes Is there a partner from a previous relationship who is making you feel unsafe now?: No Are you made to feel afraid or neglected: No Advance Directives: Yes Advance Directives on File: Yes Advance Directives Date on File: 01/12/21 Do you have thoughts of harming others: None Do you have a plan to hurt others: No Plan Eating poorly because of decreased appetite: Yes Nutrition Risks: No Nutritional Risk service: No Current occupational status: retired [employer] Allergies Allergy/AdvReac Type Severity Reaction Status Date / Time No Known Allergies Allergy Verified 04/27/23 13:37 Active Medications: Current Medications Acetaminophen (Acetaminophen 325 Mg Tablet) 650 mg PO Q6H PRN PRN Reason: Pain, Mild (Pain Scale 1-3) Aspirin (Aspirin Enteric Coated 81 Mg Tablet.) 81 mg PO DAILY [facility] Last Admin: 04/28/23 08:18 Dose: 81 mg Aspirin (Aspirin Enteric Coated 81 Mg Tablet.) 81 mg PO DAILY [facility] Atorvastatin Calcium (Atorvastatin Calcium 40 Mg Tablet) 40 mg PO BEDTIME [facility] Last Admin: 04/27/23 20:53 Dose: 40 mg Atorvastatin Calcium (Atorvastatin Calcium 40 Mg Tablet) 40 mg PO DAILY [facility] Benzonatate (Benzonatate 100 Mg Capsule) 100 mg PO TID PRN PRN Reason: Cough Clonidine HCl (Clonidine Hcl 0.1 Mg Tablet) 0.1 mg PO BID [facility]; Protocol Docusate Sodium (Docusate Sodium 100 Mg Capsule) 100 mg PO DAILY PRN PRN Reason: Constipation Enoxaparin Sodium (Enoxaparin Sodium 40 Mg/0.4 Ml Syringe) 40 mg SUBCUT Q24H [facility] Last Admin: 04/27/23 18:40 Dose: 40 mg Furosemide (Furosemide 20 Mg Tablet) 20 mg PO DAILY [facility]; Protocol Piperacillin Sod/Tazobactam (Sod 3.375 gm/ Sodium Chloride) 50 mls @ 100 mls/hr IV Q6H [facility] Last Infusion: 04/28/23 06:41 Dose: Infused Vancomycin HCl 1,250 mg/ (Sodium Chloride) 250 mls @ 166.667 mls/hr IV Q24H [facility] Levetiracetam (Levetiracetam 500 Mg Tablet) 500 mg PO BID [facility] Lorazepam (Lorazepam 0.5 Mg Tablet) 0.5 mg PO Q6H PRN PRN Reason: Anxiety Melatonin (Melatonin 3 Mg Tablet) 6 mg PO BEDTIME PRN PRN Reason: Insomnia Last Admin: 04/27/23 20:53 Dose: 6 mg Metoprolol Succinate (Metoprolol Succinate Er 25 Mg Tab.Er.24h) 25 mg PO DAILY [facility]; Protocol Morphine Sulfate (Morphine Sulfate 4 Mg/Ml Cartridge) 4 mg IVPUSH Q4H PRN; Protocol PRN Reason: Pain, Severe (Pain Scale 7-10) Last Admin: 04/28/23 08:18 Dose: 4 mg Nicotine (Nicotine 21 Mg Patch.Td24) 21 mg TRANSDERMA DAILY [facility] Last Admin: 04/28/23 08:18 Dose: 21 mg Ondansetron HCl (Ondansetron Hcl 4 Mg/2 Ml Vial) 4 mg IVPUSH Q8H PRN PRN Reason: Nausea and Vomiting Pharmacy Consult (Consult Rx Vancomycin Dosing) 1 each MISCELLANE DAILY PRN PRN Reason: Consult order Sodium Chloride (0.9 % Sodium Chloride Flush 3 Ml Syringe) 3 ml IVFLUSH QSHIFT [facility] Last Admin: 04/28/23 08:19 Dose: 3 ml Home Medications Medication Instructions Recorded Confirmed Last Taken Type amiodarone 200 mg tablet 400 mg PO BID 04/27/23 04/27/23 2 Weeks Ago History ~04/13/23 apixaban 5 mg tablet (Eliquis) 5 mg PO BID 04/27/23 04/27/23 2 Weeks Ago History ~04/13/23 aspirin 81 mg tablet,delayed 81 mg PO DAILY 04/27/23 04/27/23 2 Weeks Ago History release ~04/13/23 atorvastatin 40 mg tablet 40 mg PO DAILY 04/27/23 04/27/23 2 Weeks Ago History ~04/13/23 clonidine HCl 0.1 mg tablet 0.1 mg PO BID 04/27/23 04/27/23 2 Weeks Ago History ~04/13/23 docusate sodium 100 mg capsule 100 mg PO BID 04/27/23 04/27/23 2 Weeks Ago History ~04/13/23 folic acid 1 mg tablet 1 mg PO DAILY 04/27/23 04/27/23 2 Weeks Ago History ~04/13/23 furosemide 20 mg tablet 20 mg PO DAILY 04/27/23 04/27/23 2 Weeks Ago History ~04/13/23 metoprolol succinate 25 mg 25 mg PO DAILY 04/27/23 04/27/23 2 Weeks Ago History tablet,extended release 24 hr ~04/13/23 Physical Exam 2 Vital Signs: Vital Signs: Last Vital Signs Temp 98.3 F 04/28/23 07:46 Pulse 79 04/28/23 07:46 Resp 18 04/28/23 07:46 BP 134/67 04/28/23 07:46 Pulse Ox 95 04/28/23 07:46 O2 Del Method Nasal Cannula 04/28/23 07:46 O2 Flow Rate 2 04/28/23 07:46 Oxygen Flow Rate 2 04/27/23 13:32 BMI result Body Mass Index 21.4 Const: General: awake, confusion and poor hygiene Nutritional Appearance: t hin Orientation/consciousness: confusion HEENT: Head: Yes normocephalic and Yes atraumatic Resp: Effort & Inspection: normal respiratory effort GI: Inspection: Yes normal to inspection Skin: Other: Warm, dry, no rash Neuro: General: confusion Extrem: Other: Left AKA Stump: Upper/lower leg/hip images: 1. Left AKA with skin retraction and exposed femur, no evidence of muscular coverage. 2. Superficial left hip decubitus 3. Deeper right hip decubitus with granu lation tissue at base of wound, no necrotic tissue surrounding skin 4. Right ischial ulceration, superficial , minimal granulation noted. Results Labs 04/28/23 07:54 04/28/23 07:54 Labs: Abnormal lab results 04/27/23 04/27/23 04/28/23 Range/Units 13:52 18:48 07:54 WBC 14.6 H 12.4 H (4.8-10.8) X10*3/uL RBC 4.42 L (4.60-5.80) X10*6/uL Hgb 12.2 L 11.5 L (14.0-18.0) g/dl Hct 37.4 L 34.8 L (42.0-52.0) % MCV 78.9 L 78.7 L (80.0-98.0) fL MCH 25.7 L 26.0 L (27.0-33.0) pg RDW 17.5 H 17.5 H (11.0-16.0) % MPV 8.7 L 9.3 L (9.4-12.4) fL Lymph % (Auto) 15.4 L (20-40) % Eos % (Auto) 4.3 H (0-4) % [place] # (Auto) 1.6 H (0.1-1.2) X10*3/uL Eos # (Auto) 0.6 H (0.0-0.4) X10*3/uL Abs Immat Gran (auto) 0.06 H (0.00-0.03) X10*3/uL Absolute Neuts (auto) 10.0 H (2.0-8.3) x10*3/uL ESR 19 H (0-15) MM/HR Carbon Dioxide 21 L (22-29) mmol/L C-Reactive Protein 0.91 H (< or = 0.50) mg/dL HDL Cholesterol 33 L (>40) mg/dL Urine Fentanyl Screen POSITIVE H (Not Detect) Short CBC 04/27/23 04/28/23 Range/Units 13:52 07:54 WBC 14.6 H 12.4 H (4.8-10.8) X10*3/uL Hgb 12.2 L 11.5 L (14.0-18.0) g/dl Hct 37.4 L 34.8 L (42.0-52.0) % Plt Count 192 172 (160-400) X10*3/uL BMP 04/27/23 04/28/23 13:52 07:54 Sodium 138 Potassium 3.6 Chloride 104 Carbon Dioxide 21 L BUN 14 Creatinine 0.85 0.82 Calcium 9.0 D Liver Function 04/27/23 Range/Units 13:52 Total Bilirubin 0.3 (0.0-1.0) mg/dL AST 18 (5-37) U/L ALT 12 (0-40) U/L Alkaline Phosphatase 91 (39-117) U/L Albumin 3.8 (3.5-5.0) g/dL Urine 04/27/23 Range/Units 18:48 Urine Color Yellow Urine Appearance Clear Urine pH 6.0 (5.0-9.0) Ur Specific [place] 1.015 (1.005-1.025) Urine Protein Trace (Neg-Trace) mg/dL Urine Glucose (UA) Negative (Negative) mg/dL All other labs normal. Assessment and Plan (1) Chronic wound: Status: Acute (2) Osteomyelitis: Qualifiers: Laterality: left Osteomyelitis location: femur Osteomyelitis type: c hronic, with draining sinus Qualified Code(s): M86.452 - Chronic osteomyelitis with draining sinus, left femur Status: Acute Plan 68-year-old male patient with multiple medical problems found to have exposed femur in the left AKA amputation as well as bilateral hip and right ischial tuberosity ulceration. The right hip ulceration appears to be associated with osteomyelitis. The left AKA stump will require revision with further amputation of the femur and advancement of muscular flaps to cover the bone. This can be arranged once the patient is medically stable and in the meantime covered with a protective dressing. I will be away starting tomorrow but will sign out to Dr. Ch. Procedures Date of Service Date of Service: 04/28/23
--- NOTE | 2023-04-28 10:46 | P.CNNE_ITS ---
History of Present Illness Data of Consult Service Date: 04/28/23 Primary Care Provider: Unknown Physician HPI Reason for consult: Seizure 68-year-old male with a PMH significant for?paroxysmal AFib not compliant with Eliquis, CAD s/p CABG, PAD s/p AKA, hx prior CVAs (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 Further details were unclear. When I talked to him his main concern was left leg pain. Review of Systems 2 Review of Systems: Recent left leg surgery and noncompliant with medicines [facility] Past Medical History Medical History Fall Leukocytosis MDD (major depressive disorder), recurrent episode, moderate Opioid use disorder, moderate, dependence Pneumonitis Pneumonia Atherosclerotic cardiovascular disease History of hemorrhagic cerebrovascular accident (CVA) without residual deficits Subclavian arterial stenosis Atrial flutter Cardiomyopathy Opioid use disorder Seizure disorder Acute combined systolic and diastolic congestive heart failure COPD (chronic obstructive pulmonary disease) Cocaine abuse with intoxication Toxic encephalopathy 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 Hyperlipemia CHF (congestive heart failure) Seizure-like activity Cardiac arrest Atrial flutter Drug abuse Atrial fibrillation Paroxysmal atrial fibrillation PVD (peripheral vascular disease) CAD (coronary artery disease) Heroin use Surgical History Surgical History S/P CABG x 2 Social History Social History Household Members: Spouse Housing: House Do you presently have visiting nurse or other home services: No Unable to assess alcohol history related to: Unable to respond Alcohol intake: current Alcohol intake frequency: holidays/special occasions only Comment: Pt refused bed alarm, [employer] camera outside patient's room for safety. Patient Tobacco Use Status: Current everyday Tobacco user Tobacco use type: Cigarette Cigarette Packs Per Day: 1.5 Cigarettes Per Day: 30.0 Years Smoked: 30 Smoked in Last 30 Days: Yes e-Cigarette/Vaping Use: Currently Using Second Hand Smoke Exposure: No Use of substances other than those prescribed or required for medical reasons: Yes Substance Use Type: Heroin Substance Use Frequency: Daily Last Used Substance: Days (ago) Currently Displaying Signs/Symptoms of Drug Intoxication Withdrawal: No Any prior treatment program specific to substance use: Yes Have you been hit, kicked, punched, or otherwise hurt by someone within the past year? If so, by whom?: No Do you feel safe in your current relationship?: Yes Is there a partner from a previous relationship who is making you feel unsafe now?: No Are you made to feel afraid or neglected: No Advance Directives: Yes Advance Directives on File: Yes Advance Directives Date on File: 01/12/21 Do you have thoughts of harming others: None Do you have a plan to hurt others: No Plan Eating poorly because of decreased appetite: Yes Nutrition Risks: No Nutritional Risk service: No Current occupational status: retired [employer] Allergies Allergy/AdvReac Type Severity Reaction Status Date / Time No Known Allergies Allergy Verified 04/27/23 13:37 Active Medications: Current Medications Acetaminophen (Acetaminophen 325 Mg Tablet) 650 mg PO Q6H PRN PRN Reason: Pain, Mild (Pain Scale 1-3) Aspirin (Aspirin Enteric Coated 81 Mg Tablet.) 81 mg PO DAILY [facility] Last Admin: 04/28/23 08:18 Dose: 81 mg Aspirin (Aspirin Enteric Coated 81 Mg Tablet.) 81 mg PO DAILY [facility] Atorvastatin Calcium (Atorvastatin Calcium 40 Mg Tablet) 40 mg PO BEDTIME [facility] Last Admin: 04/27/23 20:53 Dose: 40 mg Atorvastatin Calcium (Atorvastatin Calcium 40 Mg Tablet) 40 mg PO DAILY [facility] Benzonatate (Benzonatate 100 Mg Capsule) 100 mg PO TID PRN PRN Reason: Cough Clonidine HCl (Clonidine Hcl 0.1 Mg Tablet) 0.1 mg PO BID [facility]; Protocol Docusate Sodium (Docusate Sodium 100 Mg Capsule) 100 mg PO DAILY PRN PRN Reason: Constipation Enoxaparin Sodium (Enoxaparin Sodium 40 Mg/0.4 Ml Syringe) 40 mg SUBCUT Q24H [facility] Last Admin: 04/27/23 18:40 Dose: 40 mg Furosemide (Furosemide 20 Mg Tablet) 20 mg PO DAILY [facility]; Protocol Piperacillin Sod/Tazobactam (Sod 3.375 gm/ Sodium Chloride) 50 mls @ 100 mls/hr IV Q6H [facility] Last Infusion: 04/28/23 06:41 Dose: Infused Vancomycin HCl 1,250 mg/ (Sodium Chloride) 250 mls @ 166.667 mls/hr IV Q24H [facility] Levetiracetam (Levetiracetam 500 Mg Tablet) 500 mg PO BID [facility] Lorazepam (Lorazepam 0.5 Mg Tablet) 0.5 mg PO Q6H PRN PRN Reason: Anxiety Melatonin (Melatonin 3 Mg Tablet) 6 mg PO BEDTIME PRN PRN Reason: Insomnia Last Admin: 04/27/23 20:53 Dose: 6 mg Metoprolol Succinate (Metoprolol Succinate Er 25 Mg Tab.Er.24h) 25 mg PO DAILY [facility]; Protocol Morphine Sulfate (Morphine Sulfate 4 Mg/Ml Cartridge) 4 mg IVPUSH Q4H PRN; Protocol PRN Reason: Pain, Severe (Pain Scale 7-10) Last Admin: 04/28/23 08:18 Dose: 4 mg Nicotine (Nicotine 21 Mg Patch.Td24) 21 mg TRANSDERMA DAILY [facility] Last Admin: 04/28/23 08:18 Dose: 21 mg Ondansetron HCl (Ondansetron Hcl 4 Mg/2 Ml Vial) 4 mg IVPUSH Q8H PRN PRN Reason: Nausea and Vomiting Pharmacy Consult (Consult Rx Vancomycin Dosing) 1 each MISCELLANE DAILY PRN PRN Reason: Consult order Sodium Chloride (0.9 % Sodium Chloride Flush 3 Ml Syringe) 3 ml IVFLUSH QSHIFT [facility] Last Admin: 04/28/23 08:19 Dose: 3 ml Home Medications Medication Instructions Recorded Confirmed Last Taken Type amiodarone 200 mg tablet 400 mg PO BID 04/27/23 04/27/23 2 Weeks Ago History ~04/13/23 apixaban 5 mg tablet (Eliquis) 5 mg PO BID 04/27/23 04/27/23 2 Weeks Ago History ~04/13/23 aspirin 81 mg tablet,delayed 81 mg PO DAILY 04/27/23 04/27/23 2 Weeks Ago History release ~04/13/23 atorvastatin 40 mg tablet 40 mg PO DAILY 04/27/23 04/27/23 2 Weeks Ago History ~04/13/23 clonidine HCl 0.1 mg tablet 0.1 mg PO BID 04/27/23 04/27/23 2 Weeks Ago History ~04/13/23 docusate sodium 100 mg capsule 100 mg PO BID 04/27/23 04/27/23 2 Weeks Ago History ~04/13/23 folic acid 1 mg tablet 1 mg PO DAILY 04/27/23 04/27/23 2 Weeks Ago History ~04/13/23 furosemide 20 mg tablet 20 mg PO DAILY 04/27/23 04/27/23 2 Weeks Ago History ~04/13/23 metoprolol succinate 25 mg 25 mg PO DAILY 04/27/23 04/27/23 2 Weeks Ago History tablet,extended release 24 hr ~04/13/23 Physical Exam 2 Vital Signs: Vital Signs: Last Vital Signs Temp 98.3 F 04/28/23 07:46 Pulse 79 04/28/23 07:46 Resp 18 04/28/23 07:46 BP 134/67 04/28/23 07:46 Pulse Ox 95 04/28/23 07:46 O2 Del Method Nasal Cannula 04/28/23 07:46 O2 Flow Rate 2 04/28/23 07:46 Oxygen Flow Rate 2 04/27/23 13:32 BMI result Body Mass Index 21.4 Neuro: Other: He is alert and awake with normal spontaneity of speech fluency comprehension and affect. He was showing me left leg surgery under wound. There was no obvious arm weakness or right leg weakness. Face was symmetrical. Visual hunt are full. Results Labs 04/28/23 07:54 04/28/23 07:54 Labs: Short CBC 04/27/23 04/28/23 Range/Units 13:52 07:54 WBC 14.6 H 12.4 H (4.8-10.8) X10*3/uL Hgb 12.2 L 11.5 L (14.0-18.0) g/dl Hct 37.4 L 34.8 L (42.0-52.0) % Plt Count 192 172 (160-400) X10*3/uL BMP 04/27/23 04/28/23 13:52 07:54 Sodium 138 Potassium 3.6 Chloride 104 Carbon Dioxide 21 L BUN 14 Creatinine 0.85 0.82 Calcium 9.0 D Liver Function 04/27/23 Range/Units 13:52 Total Bilirubin 0.3 (0.0-1.0) mg/dL AST 18 (5-37) U/L ALT 12 (0-40) U/L Alkaline Phosphatase 91 (39-117) U/L Albumin 3.8 (3.5-5.0) g/dL Urine 04/27/23 Range/Units 18:48 Urine Color Yellow Urine Appearance Clear Urine pH 6.0 (5.0-9.0) Ur Specific [place] 1.015 (1.005-1.025) Urine Protein Trace (Neg-Trace) mg/dL Urine Glucose (UA) Negative (Negative) mg/dL Head CT revealed chronic embolic looking left parieto-occipital infarct and probably subacute left cerebellar infarct Assessment and Plan (1) Seizure: Status: Acute 68 years old man with complex medical history including reporting of noncompliance with medications that put him at risk for further strokes and seizure disorder from previous strokes per cerebellar lesion seemed subacute. Mainstay of management is continuation of stroke preventive medications. An EEG is recommended but if seizure was of convulsion type and was clearly noted, Depakote 500 mg at night can be started, which might also help him in behavioral terms. Procedures Date of Service Date of Service: 04/28/23
[2023-04-28] MEDS: cloNIDine HCL 0.1 MG TABLET PO ×2 (11:49→21:20)
[2023-04-28] MEDS: LORazepam 0.5 MG TABLET PO ×2 (11:49→21:20)
[2023-04-28] MEDS: Furosemide 20 MG TABLET PO (11:49)
[2023-04-28] MEDS: oxyCODONE HCl Immed Release 5 MG TABLET 10 MG PO (11:49)
[2023-04-28] MEDS: HYDROmorphone HCl 1 MG/ML SYRINGE IVPUSH ×3 (11:49→21:20)
[2023-04-28] MEDS: Metoprolol Succinate ER 25 MG TAB.ER.24H PO (11:49)
[2023-04-28] MEDS: levETIRAcetam 500 MG TABLET PO ×2 (11:49→21:20)
--- NOTE | 2023-04-28 16:33 | HO.PM.IMPN ---
Subjective Subjective Date of Service: 04/28/23 Interval History: Complains of leg pain and diffuse body aches. Refused MRI secondary to inability to lay flat Review of Systems Denies chest pain Denies shortness of breath Denies nausea vomiting diarrhea Denies fever chills Physical Exam Vital Signs: Vital Signs: Last Vital Signs Temp 98.2 F 04/28/23 15:24 Pulse 83 04/28/23 15:24 Resp 19 04/28/23 15:24 BP 101/52 L 04/28/23 15:24 Pulse Ox 93 04/28/23 15:24 O2 Del Method Room Air 04/28/23 15:24 O2 Flow Rate 2 04/28/23 07:46 Oxygen Flow Rate 2 04/27/23 13:32 BMI result Body Mass Index 21.4 Const: Other: Awake alert no acute distress Resp: Other: Clear to auscultation bilaterally no rales rhonchi or wheezes Cardio: Other: No S4; positive S1-S2; no S3 murmurs rubs or gallops GI: Other: Soft nontender nondistended normoactive bowel sounds Skin: Other: See admission pictures Extrem: Other: Left AKA; superficial left hip the cube; deep right hip to cue with granulation no necrotic tissue; right ischial ulceration Objective Data Active Medications Acetaminophen (Acetaminophen 325 Mg Tablet) 650 mg PO Q6H PRN PRN Reason: Pain, Mild (Pain Scale 1-3) Aspirin (Aspirin Enteric Coated 81 Mg Tablet.) 81 mg PO DAILY [facility] Last Admin: 04/28/23 08:18 Dose: 81 mg Documented By: FRANC Atorvastatin Calcium (Atorvastatin Calcium 40 Mg Tablet) 40 mg PO BEDTIME [facility] Last Admin: 04/27/23 20:53 Dose: 40 mg Documented By: KILEY Benzonatate (Benzonatate 100 Mg Capsule) 100 mg PO TID PRN PRN Reason: Cough Clonidine HCl (Clonidine Hcl 0.1 Mg Tablet) 0.1 mg PO BID [facility]; Protocol Last Admin: 04/28/23 11:49 Dose: 0.1 mg Documented By: FRANC Docusate Sodium (Docusate Sodium 100 Mg Capsule) 100 mg PO DAILY PRN PRN Reason: Constipation Enoxaparin Sodium (Enoxaparin Sodium 40 Mg/0.4 Ml Syringe) 40 mg SUBCUT Q24H [facility] Last Admin: 04/27/23 18:40 Dose: 40 mg Documented By: KILEY Furosemide (Furosemide 20 Mg Tablet) 20 mg PO DAILY [facility]; Protocol Last Admin: 04/28/23 11:49 Dose: 20 mg Documented By: FRANC Hydromorphone HCl (Hydromorphone Hcl 1 Mg/Ml Syringe) 1 mg IVPUSH Q4H PRN; Protocol PRN Reason: Pain, Severe (Pain Scale 7-10) Last Admin: 04/28/23 11:49 Dose: 1 mg Documented By: FRANC Piperacillin Sod/Tazobactam (Sod 3.375 gm/ Sodium Chloride) 50 mls @ 100 mls/hr IV Q6H [facility] Last Infusion: 04/28/23 13:10 Dose: Infused Documented By: KARIME Vancomycin HCl 1,250 mg/ (Sodium Chloride) 250 mls @ 166.667 mls/hr IV Q24H [facility] Levetiracetam (Levetiracetam 500 Mg Tablet) 500 mg PO BID [facility] Last Admin: 04/28/23 11:49 Dose: 500 mg Documented By: FRANC Lorazepam (Lorazepam 0.5 Mg Tablet) 0.5 mg PO Q6H PRN PRN Reason: Anxiety Last Admin: 04/28/23 11:49 Dose: 0.5 mg Documented By: FRANC Melatonin (Melatonin 3 Mg Tablet) 6 mg PO BEDTIME PRN PRN Reason: Insomnia Last Admin: 04/27/23 20:53 Dose: 6 mg Documented By: KILEY Metoprolol Succinate (Metoprolol Succinate Er 25 Mg Tab.Er.24h) 25 mg PO DAILY [facility]; Protocol Last Admin: 04/28/23 11:49 Dose: 25 mg Documented By: FRANC Nicotine (Nicotine 21 Mg Patch.Td24) 21 mg TRANSDERMA DAILY [facility] Last Admin: 04/28/23 08:18 Dose: 21 mg Documented By: FARNC Ondansetron HCl (Ondansetron Hcl 4 Mg/2 Ml Vial) 4 mg IVPUSH Q8H PRN PRN Reason: Nausea and Vomiting Oxycodone HCl (Oxycodone Hcl Immed Release 5 Mg Tablet) 10 mg PO Q4H PRN PRN Reason: Pain, Moderate(Pain Scale 4-6) Last Admin: 04/28/23 11:49 Dose: 10 mg Documented By: FRANC Pharmacy Consult (Consult Rx Vancomycin Dosing) 1 each MISCELLANE DAILY PRN PRN Reason: Consult order Sodium Chloride (0.9 % Sodium Chloride Flush 3 Ml Syringe) 3 ml IVFLUSH QSHIFT [facility] Last Admin: 04/28/23 14:19 Dose: Not Given Documented By: KARIME Non-Admin Reason: Previously Administered Labs 04/28/23 07:54 04/28/23 07:54 Labs: Laboratory Results - last 24 hr 04/27/23 04/27/23 04/28/23 16:30 18:48 07:54 MCV 78.7 L MCH 26.0 L MCHC 33.0 RDW 17.5 H Plt Count 172 MPV 9.3 L Absolute Nucleated RBC 0.000 Nucleated RBC % (auto) 0.0 Estim Creat Clear Calc 59.6 Estimated GFR > 60 Lactic Acid 1.0 Triglycerides 99 Cholesterol 145 LDL Cholesterol, Calc 93 HDL Cholesterol 33 L Urine Color Yellow Urine Appearance Clear Urine pH 6.0 Ur Specific [place] 1.015 Urine Protein Trace Urine Glucose (UA) Negative Urine Ketones Negative Urine Blood Negative Urine Nitrite Negative Ur Leukocyte Esterase Negative Urine Opiates Screen Not Detected Urine Fentanyl Screen POSITIVE H Ur Barbiturates Screen Not Detected Ur Phencyclidine Scrn Not Detected Ur Amphetamines Screen Not Detected U Benzodiazepines Scrn Not Detected Urine Cocaine Screen Not Detected U Marijuana (THC) Screen Not Detected Assessment and Plan (1) Seizure: Status: Acute (2) Chronic wound: Status: Acute (3) Opioid use disorder, moderate, dependence: Status: Acute Plan Pt is a 68-year-old male with a PMH significant for?paroxysmal AFib not compliant with Eliquis, CAD s/p CABG, PAD s/p AKA, hx prior CVAs (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 Pt will be admitted to the hospital for treatment and further evaluation of breakthrough seizure, subacute CVA, and chronic nonhealing wounds. 1.Breakthrough seizure(noncompliance) -Keppra load on admission; continue outpatient dosing -will attempt to contact in a.m. regarding nature of seizures 2.Chronic nonhealing wounds .. question of osteomyelitis. Sepsis resolved -gavino/Hattien (2) -surgical recommendations noted; compliance remains an issue -await ID input 3.Subacute CVA -appreciate neurology input -likely old event -patient resistant all therapies at this point -declines outpatient anticoagulation. . . Will discuss in a.m. 4.Polysubstance use disorder -patient admits to daily heroin use secondary to pain -no desire to stop -will order Dilaudid/oxycodone for pain -addiction Medicine consult 5.Paroxysmal AFib -examined NSR at present -will discuss utility of restarting amiodarone with cardiology given history of noncompliance -continue beta-blockade as rate is acceptable -adjust as indicated Full Code Lovenox Pt will require ongoing hospitalization to verify presence of osteomyelitis and for left stump revision. Will likely need long-term antibiotics and surgical intervention Quality Stroke Does the patient have a stroke diagnosis?: No Reason for No Anti-thrombotic by Day Two: Contraindicated VTE Prior VTE?: No VTE Risk Level:: Medical - moderate - high VTE Device Contraindication: Treatment Not Indicated VTE Drug Contraindication: N/A - Med Ordered
--- NOTE | 2023-04-28 16:39 | HO.WOUND ---
Wound Consult: Initial 68yr old male admitted to [facility] [place] on?04/27/23 17:52 - See progress notes and H&P for detailed history. Wound consult placed for Bilateral Hip / Trochanter sites, right Buttock / Ischium and Left residual leg wound. Pt was agreeable to assessment and photo documentation. He reports he does not have current provider covering these wounds - he reports he has never sough treatment for hip and buttock wounds - he reports left residual leg was advised by an unknown provider to allow to dry out and then once dry to follow up with provider again. Pt is not able to recall provider - chart review reveals pt did in fact follow with outpt wound clinic for two visits on in November and last one 12/17/22. Wound were charted as following - Right Hip Stage 4 and Left buttock Stage 4 and right ischium stage 3. Currently Left buttock healed - evidence of previous injury noted with scar tissue formation and hypopigmentation noted. and Right buttock / ischium is currently unstageable as wound bed could not be visualized. Pt states these wound may be caused by his substance use - he denies injecting but reports he does smoke heroin regularly - he reports he does not feel they are pressure related - attempted to educate pt on pressure injuries causes and preventative treatments - he reports understanding but does not agree these are from prolonged pressure exposure - despite his confirmation of lack of mobility and lack of consistent repositioning and home ervices. Of note wound remain consistent with pressure presentation and are over bony prominences and pt appears malnourished at this time. Left Residual Leg Etiology: Nonhealing chronic wound Measurements: see charting for detailed measurements Wound Bed: dry jagged exposed bone Drainage / Odor: No odor dried drinaged noted to wound bed edge Edges: ? Epibole Valarie wound: ? No Induration, Fluctuance or Warmth noted Pain: Pt reports significant pain Goals of Treatment: ? Defer to surgical provider - moist donation to exposed bone Right Troachanter / Hip Etiology: Previously documented stage 4 pressure injury POA Measurements: see charting for detailed measurements Wound Bed: red pink moist tissue with central adherent thick yellow slough - undermining noted circumfrentially Drainage / Odor: thick creamy tirado yellow drainage noted - no odor noted Edges: ? epibole Valarie wound: Mild erythema No Induration, Fluctuance or Warmth noted Pain: Mild pain with cleansing Goals of Treatment: ?Off Load pressure and Alginate for moisture management Left Troachanter / Hip Etiology: Stage 3 pressure injury POA Measurements: see charting for detailed measurements Wound Bed: red pink moist tissue with adherent yellow slough granulation buds noted throughout Drainage / Odor: small serosang yellow - no odor noted Edges: ? attached Valarie wound: slow to wesley erythema No Induration, Fluctuance or Warmth noted Pain: denies pain Goals of Treatment: ?Off Load pressure and Alginate for moisture management Right Buttock / Ischium Etiology: Unstageable Pressure Injury POA - Previously documented stage 3 pressure injury with out pt WCC Measurements: see charting for detailed measurements Wound Bed:unable to visalize wound bed Drainage / Odor: thick creamy tirado yellow drainage noted - no odor noted Edges: ? epibole Valarie wound: Mild erythema hyperpigmentation - No Induration, Fluctuance or Warmth noted Pain: Mild pain with cleansing Goals of Treatment: ?Off Load pressure and Alginate packing for moisture management Recommendations: 1. Turn and Reposition every 2 hours and as needed for patient comfort. 2. Off Load all bony prominences with use of pillows and heel boots if needed.? Apply Preventative foams where needed. ? 3. Monitor for incontinence and moisture control, use barrier creams when needed for prevention and treatment. 4. Provide adequate and supplemental nutrition. 5. Continue low air loss mattress. 6. Left Residual Leg - Cleanse and irrigate with NS, apply single layer Cuticerin Impregnated Mesh (Available in Storeroom) cover with Dry gauze and ABD Pad followed by wrap. Change daily until seen by surgical provider. 7. Bilateral Hip / Trochanter and Right Ischium / buttocks - Cleanse and irrigate with NS, Pat dry. Apply barrier wip to periwound. Cover and lightly pack wound beds with Alginate - be sure to leave a wick for easy removal. cover with foam dressing. Change Daily. Re-consult wound care Nurse for wound deterioration or wound changes.
--- NOTE | 2023-04-28 17:11 | HO.ADDICTCON ---
History of Present Illness Date of Service: 04/28/2023 Chief Complaint: ?CVA vs seizure, cellulitis of stump Reason for Consult: opioid use Sources of Information: patient interviewed and chart reviewed HPI Narrative: Patient is a 68 year old male currently medically admitted with seizure and non healing wounds --? osteomyelitis +UDS (fentanyl) and reported heroin use. Patient seen by this typewriter operator automatic in room 459. Awake, alert and engaged in interview. Patient oriented to self only--unable to recall his age, or reason for admission Patient very cheerful during interview. Did not appear to be in any distress, rolling from side to side, which he says is the norm at home because it is very uncomfortable and painful to stay in one position. Denies any withdrawal sx. He reports using btwn 5-10 bags of heroin daily IN. Later reported 1 bag 3x/day. Unclear how much patient actually uses. He denies any other substance use, although he acknowledges previously using cocaine and alcohol to excess. Patient is very clear that he does not wish to stop opiate use, and is not interested in methadone or any other medication for opioid use. He reports his house is where friends and his brother all go to use daily--again, unclear how much, if any, of this is accurate. Chart review shows that patient has been seen by the Recovery support team various times since 2020 for opioid use, including following an overdose. Past Psychiatric History: Patient denies any psychiatric diagnosis he has history, denies any type of past treatment including counseling, PHP, inpatient stays, medications. Patient does have history of substance use disorder, reports active participation in 12 step programs at 1 time, although not current. Review of Systems Constitutional: Reports as per HPI and Reports no additional constitutional complaints Diagnostics Vital Signs (24Hr): Vital Signs - 24 hr 04/27/23 18:38 04/27/23 19:22 04/27/23 20:55 Temperature 98.7 F 99.1 F Pulse Rate 86 91 72 Respiratory Rate 16 16 16 Blood Pressure 125/71 138/75 142/73 H Pulse Oximetry 100 97 98 Oxygen Delivery Method Nasal Cannula with ETCO2 Nasal Cannula Nasal Cannula Oxygen Flow Rate 2 2 2 04/27/23 22:11 04/28/23 01:17 04/28/23 03:52 Temperature 98.5 F 98.2 F Pulse Rate 82 76 66 Respiratory Rate 14 18 Blood Pressure 130/73 126/57 L 107/65 Pulse Oximetry 93 98 96 Oxygen Delivery Method Room Air Nasal Cannula Nasal Cannula Oxygen Flow Rate 4 2 04/28/23 07:46 04/28/23 11:10 04/28/23 15:24 Temperature 98.3 F 98.1 F 98.2 F Pulse Rate 79 79 83 Respiratory Rate 18 20 19 Blood Pressure 134/67 119/77 101/52 L Pulse Oximetry 95 94 93 Oxygen Delivery Method Nasal Cannula Room Air Room Air Oxygen Flow Rate 2 BMI result Body Mass Index 21.4 Labs 04/28/23 07:54 04/28/23 07:54 Labs: Laboratory Results - last 48 hr 04/27/23 04/27/23 04/27/23 13:52 16:30 18:48 WBC 14.6 H RBC 4.74 Hgb 12.2 L Hct 37.4 L MCV 78.9 L MCH 25.7 L MCHC 32.6 RDW 17.5 H Plt Count 192 MPV 8.7 L Immature Gran % (Auto) 0.4 Neut % (Auto) 68.5 Lymph % (Auto) 15.4 L [place] % (Auto) 10.8 Eos % (Auto) 4.3 H Baso % (Auto) 0.6 Lymph # (Auto) 2.3 [place] # (Auto) 1.6 H Eos # (Auto) 0.6 H Baso # (Auto) 0.1 Abs Immat Gran (auto) 0.06 H Absolute Neuts (auto) 10.0 H Absolute Nucleated RBC 0.000 Nucleated RBC % (auto) 0.0 Smear Tech's Comments VERIFIED ESR 19 H Sodium 138 Potassium 3.6 Chloride 104 Carbon Dioxide 21 L Anion Gap 17 BUN 14 Creatinine 0.85 Estim Creat Clear Calc 58.0 Estimated GFR > 60 Random Glucose 102 Lactic Acid 1.0 Calcium 9.0 D Magnesium 2.2 Total Bilirubin 0.3 AST 18 ALT 12 Alkaline Phosphatase 91 Troponin I High Sens 6.1 C-Reactive Protein 0.91 H Total Protein 7.5 Albumin 3.8 Triglycerides Cholesterol LDL Cholesterol, Calc HDL Cholesterol Urine Color Yellow Urine Appearance Clear Urine pH 6.0 Ur Specific [place] 1.015 Urine Protein Trace Urine Glucose (UA) Negative Urine Ketones Negative Urine Blood Negative Urine Nitrite Negative Ur Leukocyte Esterase Negative Urine Opiates Screen Not Detected Urine Fentanyl Screen POSITIVE H Ur Barbiturates Screen Not Detected Ur Phencyclidine Scrn Not Detected Ur Amphetamines Screen Not Detected U Benzodiazepines Scrn Not Detected Urine Cocaine Screen Not Detected U Marijuana (THC) Screen Not Detected 04/28/23 07:54 WBC 12.4 H RBC 4.42 L Hgb 11.5 L Hct 34.8 L MCV 78.7 L MCH 26.0 L MCHC 33.0 RDW 17.5 H Plt Count 172 MPV 9.3 L Immature Gran % (Auto) Neut % (Auto) Lymph % (Auto) [place] % (Auto) Eos % (Auto) Baso % (Auto) Lymph # (Auto) [place] # (Auto) Eos # (Auto) Baso # (Auto) Abs Immat Gran (auto) Absolute Neuts (auto) Absolute Nucleated RBC 0.000 Nucleated RBC % (auto) 0.0 Smear Tech's Comments ESR Sodium Potassium Chloride Carbon Dioxide Anion Gap BUN Creatinine 0.82 Estim Creat Clear Calc 59.6 Estimated GFR > 60 Random Glucose Lactic Acid Calcium Magnesium Total Bilirubin AST ALT Alkaline Phosphatase Troponin I High Sens C-Reactive Protein Total Protein Albumin Triglycerides 99 Cholesterol 145 LDL Cholesterol, Calc 93 HDL Cholesterol 33 L Urine Color Urine Appearance Urine pH Ur Specific [place] Urine Protein Urine Glucose (UA) Urine Ketones Urine Blood Urine Nitrite Ur Leukocyte Esterase Urine Opiates Screen Urine Fentanyl Screen Ur Barbiturates Screen Ur Phencyclidine Scrn Ur Amphetamines Screen U Benzodiazepines Scrn Urine Cocaine Screen U Marijuana (THC) Screen Imaging Radiology Impressions: ITS Impressions Chest X-Ray 04/27/23 15:21 IMPRESSION: 1. Unremarkable chest exam. 2. Mid left femoral amputation. The stump appears unremarkable. 3. No acute fracture or dislocation left hip. The right hip joint space appears unremarkable. Mild degenerative disc changes lower lumbar spine. Femur X-Ray 04/27/23 15:21 IMPRESSION: 1. Unremarkable chest exam. 2. Mid left femoral amputation. The stump appears unremarkable. 3. No acute fracture or dislocation left hip. The right hip joint space appears unremarkable. Mild degenerative disc changes lower lumbar spine. Pelvis X-Ray 04/27/23 15:21 IMPRESSION: 1. Unremarkable chest exam. 2. Mid left femoral amputation. The stump appears unremarkable. 3. No acute fracture or dislocation left hip. The right hip joint space appears unremarkable. Mild degenerative disc changes lower lumbar spine. Head CT 04/27/23 15:27 IMPRESSION: -Multifocal hypodensity involving the left cerebellar hemisphere, new when compared to recent head CTS. Findings are concerning for acute to subacute infarct. -Mucosal thickening of the paranasal sinuses. Stable to slightly more prominent polypoid protrusion along the left nasopharynx extending into the posterior left nasal cavity. Mental Status Exam Mental Status Exam Patient Appearance: Unkempt Patient Orientation: Person Level of Consciousness: Awake and Alert Patient Behavior: Talkative Affect Description: Relaxed Patient Cognition Impaired: Yes Medications Medications Current Medications Acetaminophen (Acetaminophen 325 Mg Tablet) 650 mg PO Q6H PRN PRN Reason: Pain, Mild (Pain Scale 1-3) Aspirin (Aspirin Enteric Coated 81 Mg Tablet.Dr) 81 mg PO DAILY [facility] Last Admin: 04/28/23 08:18 Dose: 81 mg Atorvastatin Calcium (Atorvastatin Calcium 40 Mg Tablet) 40 mg PO BEDTIME [facility] Last Admin: 04/27/23 20:53 Dose: 40 mg Benzonatate (Benzonatate 100 Mg Capsule) 100 mg PO TID PRN PRN Reason: Cough Clonidine HCl (Clonidine Hcl 0.1 Mg Tablet) 0.1 mg PO BID [facility]; Protocol Last Admin: 04/28/23 11:49 Dose: 0.1 mg Docusate Sodium (Docusate Sodium 100 Mg Capsule) 100 mg PO DAILY PRN PRN Reason: Constipation Enoxaparin Sodium (Enoxaparin Sodium 40 Mg/0.4 Ml Syringe) 40 mg SUBCUT Q24H [facility] Last Admin: 04/27/23 18:40 Dose: 40 mg Furosemide (Furosemide 20 Mg Tablet) 20 mg PO DAILY [facility]; Protocol Last Admin: 04/28/23 11:49 Dose: 20 mg Hydromorphone HCl (Hydromorphone Hcl 1 Mg/Ml Syringe) 1 mg IVPUSH Q4H PRN; Protocol PRN Reason: Pain, Severe (Pain Scale 7-10) Last Admin: 04/28/23 11:49 Dose: 1 mg Piperacillin Sod/Tazobactam (Sod 3.375 gm/ Sodium Chloride) 50 mls @ 100 mls/hr IV Q6H [facility] Last Infusion: 04/28/23 13:10 Dose: Infused Vancomycin HCl 1,250 mg/ (Sodium Chloride) 250 mls @ 166.667 mls/hr IV Q24H [facility] Levetiracetam (Levetiracetam 500 Mg Tablet) 500 mg PO BID [facility] Last Admin: 04/28/23 11:49 Dose: 500 mg Lorazepam (Lorazepam 0.5 Mg Tablet) 0.5 mg PO Q6H PRN PRN Reason: Anxiety Last Admin: 04/28/23 11:49 Dose: 0.5 mg Melatonin (Melatonin 3 Mg Tablet) 6 mg PO BEDTIME PRN PRN Reason: Insomnia Last Admin: 04/27/23 20:53 Dose: 6 mg Metoprolol Succinate (Metoprolol Succinate Er 25 Mg Tab.Er.24h) 25 mg PO DAILY [facility]; Protocol Last Admin: 04/28/23 11:49 Dose: 25 mg Nicotine (Nicotine 21 Mg Patch.Td24) 21 mg TRANSDERMA DAILY [facility] Last Admin: 04/28/23 08:18 Dose: 21 mg Ondansetron HCl (Ondansetron Hcl 4 Mg/2 Ml Vial) 4 mg IVPUSH Q8H PRN PRN Reason: Nausea and Vomiting Oxycodone HCl (Oxycodone Hcl Immed Release 5 Mg Tablet) 10 mg PO Q4H PRN PRN Reason: Pain, Moderate(Pain Scale 4-6) Last Admin: 04/28/23 11:49 Dose: 10 mg Pharmacy Consult (Consult Rx Vancomycin Dosing) 1 each MISCELLANE DAILY PRN PRN Reason: Consult order Sodium Chloride (0.9 % Sodium Chloride Flush 3 Ml Syringe) 3 ml IVFLUSH QSHIFT [facility] Last Admin: 04/28/23 14:19 Dose: Not Given Allergies Allergies Allergy/AdvReac Type Severity Reaction Status Date / Time No Known Allergies Allergy Verified 04/27/23 13:37 Assessment & Plan Assessment & Plan (1) Opioid use disorder, moderate, dependence: Status: Acute Code(s): F11.20 - Opioid dependence, uncomplicated Assessment and Plan: Methadone can be started if patient is agreeable At time of interview patient did not appear to be experiencing any withdrawal sx--appearing very comfortable patient showing limited insight --will attempt to obtain collateral from HCP Total time managing care of this patient today _40___ minutes. PMFSH Past Medical History Medical History (Updated 04/28/23 @ 16:42 by Oleg Morley DO) Fall Leukocytosis MDD (major depressive disorder), recurrent episode, moderate Opioid use disorder, moderate, dependence Pneumonitis Pneumonia Atherosclerotic cardiovascular disease History of hemorrhagic cerebrovascular accident (CVA) without residual deficits Subclavian arterial stenosis Atrial flutter Cardiomyopathy Opioid use disorder Seizure disorder Acute combined systolic and diastolic congestive heart failure COPD (chronic obstructive pulmonary disease) Cocaine abuse with intoxication Toxic encephalopathy 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 Hyperlipemia CHF (congestive heart failure) Seizure-like activity Cardiac arrest Atrial flutter Drug abuse Atrial fibrillation Paroxysmal atrial fibrillation PVD (peripheral vascular disease) CAD (coronary artery disease) Heroin use Surgical History Surgical History S/P CABG x 2 Social History Social History Household Members: Spouse Housing: House Do you presently have visiting nurse or other home services: No Unable to assess alcohol history related to: Unable to respond Alcohol intake: current Alcohol intake frequency: holidays/special occasions only Comment: Pt refused bed alarm, [employer] camera outside patient's room for safety. Patient Tobacco Use Status: Current everyday Tobacco user Tobacco use type: Cigarette Cigarette Packs Per Day: 1.5 Cigarettes Per Day: 30.0 Years Smoked: 30 Smoked in Last 30 Days: Yes e-Cigarette/Vaping Use: Currently Using Second Hand Smoke Exposure: No Use of substances other than those prescribed or required for medical reasons: Yes Substance Use Type: Heroin Substance Use Frequency: Daily Last Used Substance: Days (ago) Currently Displaying Signs/Symptoms of Drug Intoxication Withdrawal: No Any prior treatment program specific to substance use: Yes Have you been hit, kicked, punched, or otherwise hurt by someone within the past year? If so, by whom?: No Do you feel safe in your current relationship?: Yes Is there a partner from a previous relationship who is making you feel unsafe now?: No Are you made to feel afraid or neglected: No Advance Directives: Yes Advance Directives on File: Yes Advance Directives Date on File: 01/12/21 Do you have thoughts of harming others: None Do you have a plan to hurt others: No Plan Eating poorly because of decreased appetite: Yes Nutrition Risks: No Nutritional Risk service: No Current occupational status: retired
[2023-04-28] MEDS: Enoxaparin Sodium 40 MG/0.4 ML SYRINGE SUBCUT (17:49)
[2023-04-28] MEDS: vancomycin HCL 1,250 MG in 0.9 % Sodium Chloride 250 ML 166.67 MG IV (17:49)
--- NOTE | 2023-04-28 20:49 | P.CNID_ITS ---
History of Present Illness Data of Consult Service Date: 04/28/23 Requesting physician: Oleg Morley Primary Care Provider: Unknown Physician HPI Reason for consult: hip and femur wounds He presents with seizures and agitation. He also has h/o left AKA and now femur is protruding from this area.He had this three months ago. He has arm weakness. He has used heroin supposedly for pain in past. He smokes a pack a day. He also has open wound over right hip and left hip clear. He is on Vancomycin and Zosyn. He has left cerebellum infarct history. He is HIV negative. He has no fever or chills. Review of Systems 2 Review of Systems: Yes all other systems are reviewed and are negative PMFSH Past Medical History Medical History Fall Leukocytosis MDD (major depressive disorder), recurrent episode, moderate Opioid use disorder, moderate, dependence Pneumonitis Pneumonia Atherosclerotic cardiovascular disease History of hemorrhagic cerebrovascular accident (CVA) without residual deficits Subclavian arterial stenosis Atrial flutter Cardiomyopathy Opioid use disorder Seizure disorder Acute combined systolic and diastolic congestive heart failure COPD (chronic obstructive pulmonary disease) Cocaine abuse with intoxication Toxic encephalopathy 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 Hyperlipemia CHF (congestive heart failure) Seizure-like activity Cardiac arrest Atrial flutter Drug abuse Atrial fibrillation Paroxysmal atrial fibrillation PVD (peripheral vascular disease) CAD (coronary artery disease) Heroin use Family History Family history: reviewed and not pertinent Surgical History Surgical History S/P CABG x 2 Social History Social History Household Members: Spouse Housing: House Do you presently have visiting nurse or other home services: No Unable to assess alcohol history related to: Unable to respond Alcohol intake: current Alcohol intake frequency: holidays/special occasions only Comment: Pt refused bed alarm, [employer] camera outside patient's room for safety. Patient Tobacco Use Status: Current everyday Tobacco user Tobacco use type: Cigarette Cigarette Packs Per Day: 1.5 Cigarettes Per Day: 30.0 Years Smoked: 30 Smoked in Last 30 Days: Yes e-Cigarette/Vaping Use: Currently Using Second Hand Smoke Exposure: No Use of substances other than those prescribed or required for medical reasons: Yes Substance Use Type: Heroin Substance Use Frequency: Daily Last Used Substance: Days (ago) Currently Displaying Signs/Symptoms of Drug Intoxication Withdrawal: No Any prior treatment program specific to substance use: Yes Have you been hit, kicked, punched, or otherwise hurt by someone within the past year? If so, by whom?: No Do you feel safe in your current relationship?: Yes Is there a partner from a previous relationship who is making you feel unsafe now?: No Are you made to feel afraid or neglected: No Advance Directives: Yes Advance Directives on File: Yes Advance Directives Date on File: 01/12/21 Do you have thoughts of harming others: None Do you have a plan to hurt others: No Plan Eating poorly because of decreased appetite: Yes Nutrition Risks: No Nutritional Risk service: No Current occupational status: retired [employer] Allergies Allergy/AdvReac Type Severity Reaction Status Date / Time No Known Allergies Allergy Verified 04/27/23 13:37 Active Medications: Current Medications Acetaminophen (Acetaminophen 325 Mg Tablet) 650 mg PO Q6H PRN PRN Reason: Pain, Mild (Pain Scale 1-3) Aspirin (Aspirin Enteric Coated 81 Mg Tablet.Dr) 81 mg PO DAILY [facility] Last Admin: 04/28/23 08:18 Dose: 81 mg Atorvastatin Calcium (Atorvastatin Calcium 40 Mg Tablet) 40 mg PO BEDTIME [facility] Last Admin: 04/27/23 20:53 Dose: 40 mg Benzonatate (Benzonatate 100 Mg Capsule) 100 mg PO TID PRN PRN Reason: Cough Clonidine HCl (Clonidine Hcl 0.1 Mg Tablet) 0.1 mg PO BID [facility] [place]; Protocol Last Admin: 04/28/23 11:49 Dose: 0.1 mg Docusate Sodium (Docusate Sodium 100 Mg Capsule) 100 mg PO DAILY PRN PRN Reason: Constipation Enoxaparin Sodium (Enoxaparin Sodium 40 Mg/0.4 Ml Syringe) 40 mg SUBCUT Q24H [facility] [place] Last Admin: 04/28/23 17:49 Dose: 40 mg Furosemide (Furosemide 20 Mg Tablet) 20 mg PO DAILY [facility] [place]; Protocol Last Admin: 04/28/23 11:49 Dose: 20 mg Hydromorphone HCl (Hydromorphone Hcl 1 Mg/Ml Syringe) 1 mg IVPUSH Q4H PRN; Protocol PRN Reason: Pain, Severe (Pain Scale 7-10) Last Admin: 04/28/23 17:48 Dose: 1 mg Piperacillin Sod/Tazobactam (Sod 3.375 gm/ Sodium Chloride) 50 mls @ 100 mls/hr IV Q6H [facility] [place] Last Infusion: 04/28/23 18:18 Dose: Infused Vancomycin HCl 1,250 mg/ (Sodium Chloride) 250 mls @ 166.667 mls/hr IV Q24H [facility] [place] Last Infusion: 04/28/23 20:43 Dose: Infused Levetiracetam (Levetiracetam 500 Mg Tablet) 500 mg PO BID [facility] [place] Last Admin: 04/28/23 11:49 Dose: 500 mg Lorazepam (Lorazepam 0.5 Mg Tablet) 0.5 mg PO Q6H PRN PRN Reason: Anxiety Last Admin: 04/28/23 11:49 Dose: 0.5 mg Melatonin (Melatonin 3 Mg Tablet) 6 mg PO BEDTIME PRN PRN Reason: Insomnia Last Admin: 04/27/23 20:53 Dose: 6 mg Metoprolol Succinate (Metoprolol Succinate Er 25 Mg Tab.Er.24h) 25 mg PO DAILY [facility] [place]; Protocol Last Admin: 04/28/23 11:49 Dose: 25 mg Nicotine (Nicotine 21 Mg Patch.Td24) 21 mg TRANSDERMA DAILY [facility] [place] Last Admin: 04/28/23 08:18 Dose: 21 mg Ondansetron HCl (Ondansetron Hcl 4 Mg/2 Ml Vial) 4 mg IVPUSH Q8H PRN PRN Reason: Nausea and Vomiting Oxycodone HCl (Oxycodone Hcl Immed Release 5 Mg Tablet) 10 mg PO Q4H PRN PRN Reason: Pain, Moderate(Pain Scale 4-6) Last Admin: 04/28/23 11:49 Dose: 10 mg Pharmacy Consult (Consult Rx Vancomycin Dosing) 1 each MISCELLANE DAILY PRN PRN Reason: Consult order Sodium Chloride (0.9 % Sodium Chloride Flush 3 Ml Syringe) 3 ml IVFLUSH QSHIFT [facility] [place] Last Admin: 04/28/23 14:19 Dose: Not Given Home Medications Medication Instructions Recorded Confirmed Last Taken Type amiodarone 200 mg tablet 400 mg PO BID 04/27/23 04/27/23 2 Weeks Ago History ~04/13/23 apixaban 5 mg tablet (Eliquis) 5 mg PO BID 12/17/23 12/17/23 2 Weeks Ago History ~04/13/23 aspirin 81 mg tablet,delayed 81 mg PO DAILY 04/27/23 04/27/23 2 Weeks Ago History release ~04/13/23 atorvastatin 40 mg tablet 40 mg PO DAILY 04/27/23 04/27/23 2 Weeks Ago History ~04/13/23 clonidine HCl 0.1 mg tablet 0.1 mg PO BID 04/27/23 04/27/23 2 Weeks Ago History ~04/13/23 docusate sodium 100 mg capsule 100 mg PO BID 04/27/23 04/27/23 2 Weeks Ago History ~04/13/23 folic acid 1 mg tablet 1 mg PO DAILY 04/27/23 04/27/23 2 Weeks Ago History ~04/13/23 furosemide 20 mg tablet 20 mg PO DAILY 04/27/23 04/27/23 2 Weeks Ago History ~04/13/23 metoprolol succinate 25 mg 25 mg PO DAILY 04/27/23 04/27/23 2 Weeks Ago History tablet,extended release 24 hr ~04/13/23 Physical Exam 2 Vital Signs: Vital Signs: Last Vital Signs Temp 98.0 F 04/28/23 19:22 Pulse 82 04/28/23 19:22 Resp 19 04/28/23 19:22 BP 142/82 H 04/28/23 19:22 Pulse Ox 97 04/28/23 19:22 O2 Del Method Room Air 04/28/23 15:24 O2 Flow Rate 2 04/28/23 07:46 Oxygen Flow Rate 2 04/27/23 13:32 BMI result Body Mass Index 21.4 Const: General: cooperative HEENT: Head: Yes normal to inspection Face and sinus: Yes normal facial exam Mouth: Normal oral and palatal mucosa present Teeth and gingiva: d entition normal Eyes: General: appearance normal, both eyes and all related structures P upils: Equal, round and reactive pupils present Resp: Effort & Inspection: normal respiratory effort Cardio: Rate: regular rate Rhythm: regular rhythm GI: Palpation (GI): Soft to palpation and nontender : General: Yes no CVA tenderness Back/Spine/Pelvis: Back: no CVA tenderness Skin: General skin exam: no rashes or lesions noted Neuro: General: moves all extremities Cranial nerves: Yes Equal, round and reactive pupils present Extrem: Other: clean exposed left femur bone right hip open sore area 3 x 3 cm Psych: Appearance: grossly normal Results Labs 04/28/23 07:54 04/28/23 07:54 Labs: Short CBC 04/28/23 Range/Units 07:54 WBC 12.4 H (4.8-10.8) X10*3/uL Hgb 11.5 L (14.0-18.0) g/dl Hct 34.8 L (42.0-52.0) % Plt Count 172 (160-400) X10*3/uL BMP 04/28/23 07:54 Creatinine 0.82 Microbiology Microbiology Results: Microbiology 04/27/23 17:05 Blood - Venous Blood Culture - Preliminary No growth after 24 hours. 04/27/23 16:30 Blood - Venous Blood Culture - Preliminary No growth after 24 hours. Assessment and Plan (1) Chronic wound: Status: Acute There is femur wound open and clean There is right hip wound may be osteomyelitis. Left hip area also clear. (2) Cerebellar infarction: Status: Acute (3) Seizure: Status: Acute (4) Osteomyelitis: Qualifiers: Laterality: left Osteomyelitis location: femur Osteomyelitis type: c hronic, with draining sinus Qualified Code(s): M86.452 - Chronic osteomyelitis with draining sinus, left femur Status: Acute Plan Would continue Zosyn and Vancomycin for now. Would check MRI hip right. If OM six weeks IV antibiotics based on culture if there is one. Surgery has seen patient also
[2023-04-28] MEDS: Atorvastatin Calcium 40 MG TABLET PO (21:20)
[2023-04-29] VITALS (7 sets, daily range): BP systolic 110–129; BP diastolic 56–68; PULSE 58–85; RESP 16–20; TEMP 36.5–37.2; O2SAT 93–97; BMI 21.4
[2023-04-29] MEDS: Piperacillin Sodium/Tazobactam 3.375 GM in 0.9 % Sodium Chloride 50 ML IV ×5 (00:24→23:10)
[2023-04-29] MEDS: 0.9 % Sodium Chloride Flush 3 ML SYRINGE IVFLUSH ×4 (00:24→21:51)
[2023-04-29] MEDS: HYDROmorphone HCl 1 MG/ML SYRINGE IVPUSH ×3 (03:48→23:50)
[2023-04-29] MEDS: oxyCODONE HCl Immed Release 5 MG TABLET 10 MG PO (03:49)
[2023-04-29 06:54] LABS: Basophils Absolute Auto 0.1 X10*3/uL (0.0-0.2); Basophils Percent Auto 0.8 % (0-2); Eosinophils Absolute Auto 0.6 X10*3/uL (0.0-0.4); Eosinophils Percent Auto 4.2 % (0-4); Hematocrit 34.5 % (42.0-52.0); Hemoglobin 11.4 g/dl (14.0-18.0); Imm Gran Abs Auto 0.06 X10*3/uL (0.00-0.03); Imm Gran Pct Auto 0.4 % (0.0-0.4); Lymphocytes Absolute Auto 3.8 X10*3/uL (1.2-4.9); Lymphocytes Percent Auto 27.1 % (20-40); MANUAL DIFF FLAG SCAN; Mean Corpuscular Hemoglobin 26.1 pg (27.0-33.0); Mean Corpuscular Volume 79.1 fL (80.0-98.0); Mean Platelet Volume 9.9 fL (9.4-12.4); Monocytes Absolute Auto 1.9 X10*3/uL (0.1-1.2); Monocytes Percent Auto 13.6 % (2-11); Neutrophils Absolute Auto 7.6 x10*3/uL (2.0-8.3); Neutrophils Percent Auto 53.9 % (45-73); Platelet Count 179 X10*3/uL (160-400); Red Blood Count 4.36 X10*6/uL (4.60-5.80); Red Cell Distribution Width 17.5 % (11.0-16.0); SCAN SMEAR FLAG 1; White Blood Count 14.1 X10*3/uL (4.8-10.8)
[2023-04-29 07:13] LABS: Alanine Aminotransferase 11 U/L (0-40); Albumin Level 3.6 g/dL (3.5-5.0); Alkaline Phosphatase 76 U/L (39-117); Anion Gap 13 (12-20); Aspartate Amino Transferase 15 U/L (5-37); Bilirubin Total 0.7 mg/dL (0.0-1.0); Blood Urea Nitrogen 14 mg/dL (9-16); Calcium 8.6 mg/dL (8.4-10.2); Carbon Dioxide 21 mmol/L (22-29); Chloride 110 mmol/L (96-108); Creatinine Clr Calc Pharmacy 61.9; Estimated Glomerular Filt Rate > 60; Glucose Fasting 94 mg/dL (60-99); Potassium 3.5 mmol/L (3.3-5.1); Sodium 140 mmol/L (135-145)
[2023-04-29 07:39] LABS: SLIDE REVIEW VERIFIED
[2023-04-29] MEDS: Nicotine 21 MG PATCH.TD24 TRANSDERMA (09:17)
[2023-04-29] MEDS: cloNIDine HCL 0.1 MG TABLET PO ×2 (09:17→21:51)
[2023-04-29] MEDS: Aspirin Enteric Coated 81 MG TABLET.DR PO (09:17)
[2023-04-29] MEDS: Furosemide 20 MG TABLET PO (09:17)
[2023-04-29] MEDS: Metoprolol Succinate ER 25 MG TAB.ER.24H PO (09:17)
[2023-04-29] MEDS: levETIRAcetam 500 MG TABLET PO ×2 (09:17→21:51)
--- NOTE | 2023-04-29 10:25 | PM.PNGS ---
Subjective Subjective Date of Service: 04/29/23 <Gaby Sierra PA-C - Last Filed: 04/29/23 10:35> 04/29/23 <Ruy Ch MD - Last Filed: 04/29/23 14:52> Interval history: Very poor historian. States his left AKA was done in [place] 3-4 months ago following a work related injury. He is subsequently wheelchair/bed bound. Currently denies any pain. <Gaby Sierra PA-C - Last Filed: 04/29/23 10:35> Physical Exam Vital Signs: Vital Signs: Last Vital Signs Temp 99.0 F 04/29/23 07:40 Pulse 75 04/29/23 07:40 Resp 16 04/29/23 07:40 BP 110/64 04/29/23 07:40 Pulse Ox 97 04/29/23 07:40 O2 Del Method Room Air 04/29/23 07:40 O2 Flow Rate 2 04/28/23 07:46 Oxygen Flow Rate 2 04/27/23 13:32 BMI result Body Mass Index 21.4 <Gaby Sierra PA-C - Last Filed: 04/29/23 10:35> Const: General: comfortable, no acute distress, alert and poor hygiene <Gaby Sierra PA-C - Last Filed: 04/29/23 10:35> Nutritional Appearance: thin <Gaby Sierra PA-C - Last Filed: 04/29/23 10:35> Resp: Effort & Inspection: normal respiratory effort <Gaby Sierra PA-C - Last Filed: 04/29/23 10:35> Skin: General skin exam: no jaundice <Gaby Sierra PA-C - Last Filed: 04/29/23 10:35> Extrem: Other: left AKA stump with exposed femur, surrounding tissues soft without edema or fluctuance, skin without any erythema <COLIN Santoyo Last Filed: 04/29/23 10:35> Objective Data Active Medications Acetaminophen (Acetaminophen 325 Mg Tablet) 650 mg PO Q6H PRN PRN Reason: Pain, Mild (Pain Scale 1-3) Aspirin (Aspirin Enteric Coated 81 Mg Tablet.) 81 mg PO DAILY [facility] Last Admin: 04/29/23 09:17 Dose: 81 mg Documented By: KARIME Atorvastatin Calcium (Atorvastatin Calcium 40 Mg Tablet) 40 mg PO BEDTIME CARLIE Last Admin: 04/28/23 21:20 Dose: 40 mg Documented By: CAITIE Benzonatate (Benzonatate 100 Mg Capsule) 100 mg PO TID PRN PRN Reason: Cough Clonidine HCl (Clonidine Hcl 0.1 Mg Tablet) 0.1 mg PO BID [facility]; Protocol Last Admin: 04/29/23 09:17 Dose: 0.1 mg Documented By: KARIME Docusate Sodium (Docusate Sodium 100 Mg Capsule) 100 mg PO DAILY PRN PRN Reason: Constipation Enoxaparin Sodium (Enoxaparin Sodium 40 Mg/0.4 Ml Syringe) 40 mg SUBCUT Q24H [facility] Last Admin: 04/28/23 17:49 Dose: 40 mg Documented By: KARIME Furosemide (Furosemide 20 Mg Tablet) 20 mg PO DAILY [facility]; Protocol Last Admin: 04/29/23 09:17 Dose: 20 mg Documented By: KARIME Hydromorphone HCl (Hydromorphone Hcl 1 Mg/Ml Syringe) 1 mg IVPUSH Q4H PRN; Protocol PRN Reason: Pain, Severe (Pain Scale 7-10) Last Admin: 04/29/23 03:48 Dose: 1 mg Documented By: CAITIE Piperacillin Sod/Tazobactam (Sod 3.375 gm/ Sodium Chloride) 50 mls @ 100 mls/hr IV Q6H [facility] Last Infusion: 04/29/23 06:55 Dose: Infused Documented By: CAITIE Vancomycin HCl 1,250 mg/ (Sodium Chloride) 250 mls @ 166.667 mls/hr IV Q24H [facility] Last Infusion: 04/28/23 20:43 Dose: Infused Documented By: CAITIE Levetiracetam (Levetiracetam 500 Mg Tablet) 500 mg PO BID [facility] Last Admin: 04/29/23 09:17 Dose: 500 mg Documented By: KARIME Lorazepam (Lorazepam 0.5 Mg Tablet) 0.5 mg PO Q6H PRN PRN Reason: Anxiety Last Admin: 04/28/23 21:20 Dose: 0.5 mg Documented By: CAITIE Melatonin (Melatonin 3 Mg Tablet) 6 mg PO BEDTIME PRN PRN Reason: Insomnia Last Admin: 04/27/23 20:53 Dose: 6 mg Documented By: KILEY Metoprolol Succinate (Metoprolol Succinate Er 25 Mg Tab.Er.24h) 25 mg PO DAILY [facility]; Protocol Last Admin: 04/29/23 09:17 Dose: 25 mg Documented By: KARIME Nicotine (Nicotine 21 Mg Patch.Td24) 21 mg TRANSDERMA DAILY [facility] Last Admin: 04/29/23 09:17 Dose: 21 mg Documented By: KARIME Ondansetron HCl (Ondansetron Hcl 4 Mg/2 Ml Vial) 4 mg IVPUSH Q8H PRN PRN Reason: Nausea and Vomiting Oxycodone HCl (Oxycodone Hcl Immed Release 5 Mg Tablet) 10 mg PO Q4H PRN PRN Reason: Pain, Moderate(Pain Scale 4-6) Last Admin: 04/29/23 03:49 Dose: 10 mg Documented By: CAITIE Pharmacy Consult (Consult Rx Vancomycin Dosing) 1 each MISCELLANE DAILY PRN PRN Reason: Consult order Sodium Chloride (0.9 % Sodium Chloride Flush 3 Ml Syringe) 3 ml IVFLUSH QSHIFT [facility] Last Admin: 04/29/23 09:19 Dose: 3 ml Documented By: KARIME <Gaby Sierra PA-C - Last Filed: 04/29/23 10:35> Labs CBC & Chem 7: 04/29/23 06:03 04/29/23 06:03 <Gaby Sierra PA-C - Last Filed: 04/29/23 10:35> Labs: Laboratory Results - last 24 hr 04/29/23 06:03 MCV 79.1 L MCH 26.1 L MCHC 33.0 RDW 17.5 H Plt Count 179 MPV 9.9 Immature Gran % (Auto) 0.4 Neut % (Auto) 53.9 Lymph % (Auto) 27.1 [place] % (Auto) 13.6 H Eos % (Auto) 4.2 H Baso % (Auto) 0.8 Lymph # (Auto) 3.8 [place] # (Auto) 1.9 H Eos # (Auto) 0.6 H Baso # (Auto) 0.1 Abs Immat Gran (auto) 0.06 H Absolute Neuts (auto) 7.6 Absolute Nucleated RBC 0.000 Nucleated RBC % (auto) 0.0 Smear Tech's Comments VERIFIED Anion Gap 13 Estim Creat Clear Calc 61.9 Estimated GFR > 60 Fasting Glucose 94 Calcium 8.6 Total Bilirubin 0.7 AST 15 ALT 11 Alkaline Phosphatase 76 Total Protein 7.0 Albumin 3.6 <Gaby Sierra PA-C - Last Filed: 04/29/23 10:35> Microbiology Microbiology Results: Microbiology 04/27/23 17:05 Blood Culture - Preliminary Blood - Venous No growth after 24 hours. 04/27/23 16:30 Blood Culture - Preliminary Blood - Venous No growth after 24 hours. <Gaby Sierra PA-C - Last Filed: 04/29/23 10:35> Procedures Date of Service Date of Service: 04/29/23 <Gaby Sierra PA-C - Last Filed: 04/29/23 10:35> 04/29/23 <Ruy Ch MD - Last Filed: 04/29/23 14:52> Progress Note: A&P Assessment and plan (1) Chronic wound: Status: Acute <Gaby Sierra PA-C - Last Filed: 04/29/23 10:35> (2) Opioid use disorder, moderate, dependence: Status: Acute <Gaby Sierra PA-C - Last Filed: 04/29/23 10:35> (3) AKA stump complication: Status: Acute <Gaby Sierra PA-C - Last Filed: 04/29/23 10:35> Assessment and Plan: Open wound on the AKA stump on the left, with tip of femur exposed Will need revision of the stump under anesthesia in the OR once medically stable Wound care to other ulcers on both hips Continue antibiotics for now, wound care Evaluate for competency as well Seen and examined independently Agree with MAXIM Sierra Discussed with hospitalist service <Ruy Ch MD - Last Filed: 04/29/23 14:52> Assessment and Plan: Left AKA stump with exposed femur. Will tentatively plan for revision of left AKA stump tomorrow if remains medically stable. Patient comfortable with plan. Can keep exposed bone covered for now with allevyn dressing and/or valery wrap. Numerous decubitus ulcers noted and can continue wound care recommendations as per asw specialist. Continue abx, await ID input. Patient refusing MRI for eval of osteo, refusing STR for IV abx. <Gaby Sierra PA-C - Last Filed: 04/29/23 10:35> Time Spent With Patient Time: Total time managing care of this patient today ____ minutes. <Gaby Sierra PA-C - Last Filed: 04/29/23 10:35> Quality Stroke Does the patient have a stroke diagnosis?: No <Gaby Sierra PA-C - Last Filed: 04/29/23 10:35> Reason for No Anti-thrombotic by Day Two: Contraindicated <Gaby Sierra PA-C - Last Filed: 04/29/23 10:35> VTE Prior VTE?: No <Gaby Sierra PA-C - Last Filed: 04/29/23 10:35> VTE Risk Level:: Medical - moderate - high <Gaby Sierra PA-C - Last Filed: 04/29/23 10:35> VTE Device Contraindication: Treatment Not Indicated <Gaby Sierra PA-C - Last Filed: 04/29/23 10:35> VTE Drug Contraindication: N/A - Med Ordered <Gaby Sierra PA-C - Last Filed: 04/29/23 10:35>
--- NOTE | 2023-04-29 11:28 | MHC.CLN ---
PT WITH INCREASED NUTRITION RISK R/T PRESSURE INJURIES GOOD PO INTAKE DIET RX: REGULAR-RECOMMEND 2GM NA DIET R/T HX CAD, PAD, CVA, CHF RECOMMEND ADDING ENSURE MAX BID TO PROMOTE WOUND HEALING SUPP TO PROVIDE 300KCALS, 60G PROTEIN MONITOR PO INTAKE AND ENCOURAGE SUPPLEMENT SEE ALSO FULL CLINICAL NUTRITION ASSESSMENT
--- NOTE | 2023-04-29 12:40 | MHC.RECOVRN ---
Met with pt to follow up and assess for withdrawal. Pt sitting in chair, awake, alert, easily engages in conversation, does not appear in any distress. Pt reports heroin/fentanyl use, 3 bags daily, IN. Pt denies withdrawal symptoms. Pt requesting nicotine patch. Per RN, pt was provided one this morning. Pt denies other questions or concerns for t/w. Discussed with Lynette Tristan APRN.
--- NOTE | 2023-04-29 15:35 | P.PNIM_ITS ---
Subjective Subjective Date of Service: 04/29/23 Interval History: No acute issues overnight. Pain regimen acceptable to patient Review of Systems Denies chest pain Denies shortness of breath Denies nausea vomiting diarrhea Denies fever chills Physical Exam 2 Vital Signs: Vital Signs: Last Vital Signs Temp 98.0 F 04/29/23 15:10 Pulse 72 04/29/23 15:10 Resp 17 04/29/23 15:10 BP 116/68 04/29/23 15:10 Pulse Ox 93 04/29/23 15:10 O2 Del Method Room Air 04/29/23 11:13 O2 Flow Rate 2 04/28/23 07:46 Oxygen Flow Rate 2 04/27/23 13:32 BMI result Body Mass Index 21.4 Const: Other: Awake alert no acute distress Resp: Other: Clear to auscultation bilaterally no rales rhonchi or wheezes Cardio: Other: No S4; positive S1-S2; no S3 murmurs rubs or gallops GI: Other: Soft nontender nondistended normoactive bowel sounds Skin: Other: See admission pictures Extrem: Other: Left AKA; superficial left hip the cube; deep right hip to cue with granulation no necrotic tissue; right ischial ulceration Objective Data Active Medications Acetaminophen (Acetaminophen 325 Mg Tablet) 650 mg PO Q6H PRN PRN Reason: Pain, Mild (Pain Scale 1-3) Aspirin (Aspirin Enteric Coated 81 Mg Tablet.) 81 mg PO DAILY [facility] Last Admin: 04/29/23 09:17 Dose: 81 mg Documented By: KARIME Atorvastatin Calcium (Atorvastatin Calcium 40 Mg Tablet) 40 mg PO BEDTIME [facility] Last Admin: 04/28/23 21:20 Dose: 40 mg Documented By: CAITIE Benzonatate (Benzonatate 100 Mg Capsule) 100 mg PO TID PRN PRN Reason: Cough Clonidine HCl (Clonidine Hcl 0.1 Mg Tablet) 0.1 mg PO BID [facility]; Protocol Last Admin: 04/29/23 09:17 Dose: 0.1 mg Documented By: KARIME Docusate Sodium (Docusate Sodium 100 Mg Capsule) 100 mg PO DAILY PRN PRN Reason: Constipation Enoxaparin Sodium (Enoxaparin Sodium 40 Mg/0.4 Ml Syringe) 40 mg SUBCUT Q24H [facility] Last Admin: 04/28/23 17:49 Dose: 40 mg Documented By: KARIME Furosemide (Furosemide 20 Mg Tablet) 20 mg PO DAILY [facility]; Protocol Last Admin: 04/29/23 09:17 Dose: 20 mg Documented By: KARIME Hydromorphone HCl (Hydromorphone Hcl 1 Mg/Ml Syringe) 1 mg IVPUSH Q4H PRN; Protocol PRN Reason: Pain, Severe (Pain Scale 7-10) Last Admin: 04/29/23 03:48 Dose: 1 mg Documented By: CAITIE Piperacillin Sod/Tazobactam (Sod 3.375 gm/ Sodium Chloride) 50 mls @ 100 mls/hr IV Q6H [facility] Last Infusion: 04/29/23 12:58 Dose: Infused Documented By: KARIME Vancomycin HCl 1,250 mg/ (Sodium Chloride) 250 mls @ 166.667 mls/hr IV Q24H [facility] Last Infusion: 04/28/23 20:43 Dose: Infused Documented By: CAITIE Levetiracetam (Levetiracetam 500 Mg Tablet) 500 mg PO BID [facility] Last Admin: 04/29/23 09:17 Dose: 500 mg Documented By: KARIME Lorazepam (Lorazepam 0.5 Mg Tablet) 0.5 mg PO Q6H PRN PRN Reason: Anxiety Last Admin: 04/28/23 21:20 Dose: 0.5 mg Documented By: CAITIE Melatonin (Melatonin 3 Mg Tablet) 6 mg PO BEDTIME PRN PRN Reason: Insomnia Last Admin: 04/27/23 20:53 Dose: 6 mg Documented By: KILEY Metoprolol Succinate (Metoprolol Succinate Er 25 Mg Tab.Er.24h) 25 mg PO DAILY [facility]; Protocol Last Admin: 04/29/23 09:17 Dose: 25 mg Documented By: KARIME Nicotine (Nicotine 21 Mg Patch.Td24) 21 mg TRANSDERMA DAILY [facility] Last Admin: 04/29/23 09:17 Dose: 21 mg Documented By: KARIME Ondansetron HCl (Ondansetron Hcl 4 Mg/2 Ml Vial) 4 mg IVPUSH Q8H PRN PRN Reason: Nausea and Vomiting Oxycodone HCl (Oxycodone Hcl Immed Release 5 Mg Tablet) 10 mg PO Q4H PRN PRN Reason: Pain, Moderate(Pain Scale 4-6) Last Admin: 04/29/23 03:49 Dose: 10 mg Documented By: CAITIE Pharmacy Consult (Consult Rx Vancomycin Dosing) 1 each MISCELLANE DAILY PRN PRN Reason: Consult order Sodium Chloride (0.9 % Sodium Chloride Flush 3 Ml Syringe) 3 ml IVFLUSH QSHIFT [facility] Last Admin: 04/29/23 09:19 Dose: 3 ml Documented By: KARIME Labs 04/29/23 06:03 04/29/23 06:03 Labs: Laboratory Results - last 24 hr 04/29/23 06:03 MCV 79.1 L MCH 26.1 L MCHC 33.0 RDW 17.5 H Plt Count 179 MPV 9.9 Immature Gran % (Auto) 0.4 Neut % (Auto) 53.9 Lymph % (Auto) 27.1 [place] % (Auto) 13.6 H Eos % (Auto) 4.2 H Baso % (Auto) 0.8 Lymph # (Auto) 3.8 [place] # (Auto) 1.9 H Eos # (Auto) 0.6 H Baso # (Auto) 0.1 Abs Immat Gran (auto) 0.06 H Absolute Neuts (auto) 7.6 Absolute Nucleated RBC 0.000 Nucleated RBC % (auto) 0.0 Smear Tech's Comments VERIFIED Anion Gap 13 Estim Creat Clear Calc 61.9 Estimated GFR > 60 Fasting Glucose 94 Calcium 8.6 Total Bilirubin 0.7 AST 15 ALT 11 Alkaline Phosphatase 76 Total Protein 7.0 Albumin 3.6 Microbiology Microbiology Results: Microbiology 04/27/23 17:05 Blood Culture - Preliminary Blood - Venous No growth after 24 hours. 04/27/23 16:30 Blood Culture - Preliminary Blood - Venous No growth after 24 hours. Assessment and Plan (1) Seizure: Status: Acute (2) AKA stump complication: Status: Acute (3) Atrial fibrillation: Status: Acute Plan Pt is a 68-year-old male with a PMH significant for?paroxysmal AFib not compliant with Eliquis, CAD s/p CABG, PAD s/p AKA, hx prior CVAs (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 Pt will be admitted to the hospital for treatment and further evaluation of breakthrough seizure, subacute CVA, and chronic nonhealing wounds. 1.Breakthrough seizure(noncompliance) -Keppra load on admission; continue outpatient dosing -no further seizures since admit 2.Chronic nonhealing wounds .. question of osteomyelitis. Sepsis resolved -vanco/Zosyn (3) -medically acceptable for stump revision at this time -id recommendations noted 3.Subacute CVA -appreciate neurology input -likely old event -will consider anticoagulation upon discharge 4.Polysubstance use disorder -patient admits to daily heroin use secondary to pain -no desire to stop -will order Dilaudid/oxycodone for pain -will consider methadone upon DC 5.Paroxysmal AFib -examined NSR at present -will discuss utility of restarting amiodarone with cardiology given history of noncompliance -continue beta-blockade as rate is acceptable -adjust as indicated Full Code Lovenox Pt will require ongoing hospitalization to verify presence of osteomyelitis and for left stump revision. Will likely need long-term antibiotics and surgical intervention Quality Stroke Does the patient have a stroke diagnosis?: No Reason for No Anti-thrombotic by Day Two: Contraindicated VTE Prior VTE?: No VTE Risk Level:: Medical - moderate - high VTE Device Contraindication: Treatment Not Indicated VTE Drug Contraindication: N/A - Med Ordered
[2023-04-29 16:06] LABS: Vancomycin Random 8.8 mcg/mL (15-20)
[2023-04-29] MEDS: vancomycin HCL 1,500 MG in 0.9 % Sodium Chloride 500 ML 333.33 MG IV (17:00)
[2023-04-29] MEDS: Atorvastatin Calcium 40 MG TABLET PO (21:51)
[2023-04-30] VITALS (9 sets, daily range): BP systolic 106–146; BP diastolic 61–77; PULSE 52–70; RESP 16–20; TEMP 36.3–37.1; O2SAT 92–98
[2023-04-30] MEDS: oxyCODONE HCl Immed Release 5 MG TABLET 10 MG PO ×3 (01:50→20:02)
[2023-04-30] MEDS: Piperacillin Sodium/Tazobactam 3.375 GM in 0.9 % Sodium Chloride 50 ML IV ×3 (05:16→17:38)
[2023-04-30] MEDS: Magnesium Sulfate/H2O 2 GM/50 ML PIGGYBACK IV (06:37)
[2023-04-30 06:56] LABS: Basophils Absolute Auto 0.1 X10*3/uL (0.0-0.2); Basophils Percent Auto 0.9 % (0-2); Eosinophils Absolute Auto 0.7 X10*3/uL (0.0-0.4); Eosinophils Percent Auto 4.5 % (0-4); Hematocrit 36.9 % (42.0-52.0); Hemoglobin 12.3 g/dl (14.0-18.0); Imm Gran Abs Auto 0.06 X10*3/uL (0.00-0.03); Imm Gran Pct Auto 0.4 % (0.0-0.4); Lymphocytes Absolute Auto 3.5 X10*3/uL (1.2-4.9); Lymphocytes Percent Auto 21.7 % (20-40); MANUAL DIFF FLAG SCAN; Mean Corpuscular HGB Conc 33.3 g/dl (31.0-36.0); Mean Corpuscular Hemoglobin 25.9 pg (27.0-33.0); Mean Corpuscular Volume 77.8 fL (80.0-98.0); Mean Platelet Volume 9.3 fL (9.4-12.4); Monocytes Percent Auto 12.5 % (2-11); Neutrophils Absolute Auto 9.8 x10*3/uL (2.0-8.3); Platelet Count 186 X10*3/uL (160-400); Red Blood Count 4.74 X10*6/uL (4.60-5.80); Red Cell Distribution Width 17.5 % (11.0-16.0); SCAN SMEAR FLAG 1; White Blood Count 16.3 X10*3/uL (4.8-10.8)
[2023-04-30 07:11] LABS: Alanine Aminotransferase 12 U/L (0-40); Albumin Level 3.8 g/dL (3.5-5.0); Alkaline Phosphatase 77 U/L (39-117); Anion Gap 14 (12-20); Aspartate Amino Transferase 15 U/L (5-37); Bilirubin Total 0.8 mg/dL (0.0-1.0); Blood Urea Nitrogen 12 mg/dL (9-16); Calcium 9.1 mg/dL (8.4-10.2); Carbon Dioxide 19 mmol/L (22-29); Chloride 112 mmol/L (96-108); Creatinine Clr Calc Pharmacy 57.5; Estimated Glomerular Filt Rate > 60; Glucose Fasting 101 mg/dL (60-99); Potassium 3.5 mmol/L (3.3-5.1); Sodium 141 mmol/L (135-145); Total Protein 7.4 g/dL (6.5-8.0)
[2023-04-30] MEDS: Metoprolol Succinate ER 25 MG TAB.ER.24H PO (08:43)
[2023-04-30] MEDS: 0.9 % Sodium Chloride Flush 3 ML SYRINGE IVFLUSH ×2 (08:43→16:37)
[2023-04-30] MEDS: cloNIDine HCL 0.1 MG TABLET PO ×2 (08:43→20:02)
[2023-04-30] MEDS: Aspirin Enteric Coated 81 MG TABLET.DR PO (08:43)
[2023-04-30] MEDS: levETIRAcetam 500 MG TABLET PO ×2 (08:43→20:02)
[2023-04-30] MEDS: Furosemide 20 MG TABLET PO (08:44)
[2023-04-30] MEDS: Nicotine 21 MG PATCH.TD24 TRANSDERMA (08:48)
[2023-04-30 10:07] LABS: SLIDE REVIEW VERIFIED
--- NOTE | 2023-04-30 10:18 | MHC.CLN ---
F/U PT WITH INCREASED NUTRITION RISK R/T PRESSURE INJURIES 75% X 3 MEALS PT IS CURRENTLY NPO WHEN DIET RESUMES; RECOMMEND ADDING ENSURE MAX BID TO PROMOTE WOUND HEALING SUPP TO PROVIDE 300KCALS, 60G PROTEIN MONITOR FOR DIET ADVANCEMENT
--- NOTE | 2023-04-30 11:10 | P.CONAN_ITS ---
HPI - Anesthesia Eval Consult details Narrative: Infected AKA stump revision PMFSH Active Problems Active Problems: All Active Problems (Updated 04/29/23 @ 10:28 by Gaby Sierra PA-C) AKA stump complication (Acute) Opioid use disorder, moderate, dependence (Acute) Chronic wound (Acute) Cerebellar infarction (Acute) Seizure (Acute) Osteomyelitis (Acute) Carotid artery stenosis (Acute) Carotid artery occlusion (Acute) Atrial fibrillation (Acute) CAD (coronary artery disease) (Acute) Acute CVA (cerebrovascular accident) (Acute) Failure to thrive in adult (Acute) Leukocytosis (Acute) Heme positive stool (Acute) Elevated liver enzymes (Acute) Hypoxia (Acute) Past Medical History Medical History Fall Leukocytosis MDD (major depressive disorder), recurrent episode, moderate Opioid use disorder, moderate, dependence Pneumonitis Pneumonia Atherosclerotic cardiovascular disease History of hemorrhagic cerebrovascular accident (CVA) without residual deficits Subclavian arterial stenosis Atrial flutter Cardiomyopathy Opioid use disorder Seizure disorder Acute combined systolic and diastolic congestive heart failure COPD (chronic obstructive pulmonary disease) Cocaine abuse with intoxication Toxic encephalopathy 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 Hyperlipemia CHF (congestive heart failure) Seizure-like activity Cardiac arrest Atrial flutter Drug abuse Atrial fibrillation Paroxysmal atrial fibrillation PVD (peripheral vascular disease) CAD (coronary artery disease) Heroin use Family History Family history of problems with anesthesia: No Surgical History Surgical History S/P CABG x 2 History of Problems with Anesthesia: No Social History Social History Household Members: Spouse Housing: House Do you presently have visiting nurse or other home services: No Unable to assess alcohol history related to: Unable to respond Alcohol intake: current Alcohol intake frequency: holidays/special occasions only Comment: Pt refused bed alarm, [employer] camera outside patient's room for safety. Patient Tobacco Use Status: Current everyday Tobacco user Tobacco use type: Cigarette Cigarette Packs Per Day: 1.5 Cigarettes Per Day: 30.0 Years Smoked: 30 Smoked in Last 30 Days: Yes e-Cigarette/Vaping Use: Currently Using Second Hand Smoke Exposure: No Use of substances other than those prescribed or required for medical reasons: Yes Substance Use Type: Heroin Substance Use Frequency: Daily Last Used Substance: Days (ago) Currently Displaying Signs/Symptoms of Drug Intoxication Withdrawal: No Any prior treatment program specific to substance use: Yes Have you been hit, kicked, punched, or otherwise hurt by someone within the past year? If so, by whom?: No Do you feel safe in your current relationship?: Yes Is there a partner from a previous relationship who is making you feel unsafe now?: No Are you made to feel afraid or neglected: No Advance Directives: Yes Advance Directives on File: Yes Advance Directives Date on File: 01/12/21 Do you have thoughts of harming others: None Do you have a plan to hurt others: No Plan Eating poorly because of decreased appetite: Yes Nutrition Risks: No Nutritional Risk service: No Current occupational status: retired [employer] Allergies Allergy/AdvReac Type Severity Reaction Status Date / Time No Known Allergies Allergy Verified 04/27/23 13:37 Active Medications: Current Medications Acetaminophen (Acetaminophen 325 Mg Tablet) 650 mg PO Q6H PRN PRN Reason: Pain, Mild (Pain Scale 1-3) Aspirin (Aspirin Enteric Coated 81 Mg Tablet.Dr) 81 mg PO DAILY [facility] Last Admin: 04/30/23 08:43 Dose: 81 mg Atorvastatin Calcium (Atorvastatin Calcium 40 Mg Tablet) 40 mg PO BEDTIME [facility] Last Admin: 04/29/23 21:51 Dose: 40 mg Benzonatate (Benzonatate 100 Mg Capsule) 100 mg PO TID PRN PRN Reason: Cough Clonidine HCl (Clonidine Hcl 0.1 Mg Tablet) 0.1 mg PO BID [facility]; Protocol Last Admin: 04/30/23 08:43 Dose: 0.1 mg Docusate Sodium (Docusate Sodium 100 Mg Capsule) 100 mg PO DAILY PRN PRN Reason: Constipation Enoxaparin Sodium (Enoxaparin Sodium 40 Mg/0.4 Ml Syringe) 40 mg SUBCUT Q24H [facility] Last Admin: 04/29/23 17:12 Dose: Not Given Furosemide (Furosemide 20 Mg Tablet) 20 mg PO DAILY [facility]; Protocol Last Admin: 04/30/23 08:44 Dose: 20 mg Hydromorphone HCl (Hydromorphone Hcl 1 Mg/Ml Syringe) 1 mg IVPUSH Q4H PRN; Protocol PRN Reason: Pain, Severe (Pain Scale 7-10) Last Admin: 04/29/23 23:50 Dose: 1 mg Piperacillin Sod/Tazobactam (Sod 3.375 gm/ Sodium Chloride) 50 mls @ 100 mls/hr IV Q6H [facility] Last Infusion: 04/30/23 06:05 Dose: Infused Vancomycin HCl 1,500 mg/ (Sodium Chloride) 500 mls @ 333.333 mls/hr IV Q24H [facility] Last Infusion: 04/29/23 18:52 Dose: Infused Levetiracetam (Levetiracetam 500 Mg Tablet) 500 mg PO BID [facility] Last Admin: 04/30/23 08:43 Dose: 500 mg Lorazepam (Lorazepam 0.5 Mg Tablet) 0.5 mg PO Q6H PRN PRN Reason: Anxiety Last Admin: 04/28/23 21:20 Dose: 0.5 mg Melatonin (Melatonin 3 Mg Tablet) 6 mg PO BEDTIME PRN PRN Reason: Insomnia Last Admin: 04/27/23 20:53 Dose: 6 mg Metoprolol Succinate (Metoprolol Succinate Er 25 Mg Tab.Er.24h) 25 mg PO DAILY [facility]; Protocol Last Admin: 04/30/23 08:43 Dose: 25 mg Nicotine (Nicotine 21 Mg Patch.Td24) 21 mg TRANSDERMA DAILY [facility] Last Admin: 04/30/23 08:48 Dose: 21 mg Ondansetron HCl (Ondansetron Hcl 4 Mg/2 Ml Vial) 4 mg IVPUSH Q8H PRN PRN Reason: Nausea and Vomiting Oxycodone HCl (Oxycodone Hcl Immed Release 5 Mg Tablet) 10 mg PO Q4H PRN PRN Reason: Pain, Moderate(Pain Scale 4-6) Last Admin: 04/30/23 08:47 Dose: 10 mg Pharmacy Consult (Consult Rx Vancomycin Dosing) 1 each MISCELLANE DAILY PRN PRN Reason: Consult order Sodium Chloride (0.9 % Sodium Chloride Flush 3 Ml Syringe) 3 ml IVFLUSH QSHIFT [facility] Last Admin: 04/30/23 08:43 Dose: 3 ml Home Medications Medication Instructions Recorded Confirmed Last Taken Type amiodarone 200 mg tablet 400 mg PO BID 04/27/23 04/27/23 2 Weeks Ago History ~04/13/23 apixaban 5 mg tablet (Eliquis) 5 mg PO BID 04/27/23 04/27/23 2 Weeks Ago History ~04/13/23 aspirin 81 mg tablet,delayed 81 mg PO DAILY 04/27/23 04/27/23 2 Weeks Ago History release ~04/13/23 atorvastatin 40 mg tablet 40 mg PO DAILY 04/27/23 04/27/23 2 Weeks Ago History ~04/13/23 clonidine HCl 0.1 mg tablet 0.1 mg PO BID 04/27/23 04/27/23 2 Weeks Ago History ~04/13/23 docusate sodium 100 mg capsule 100 mg PO BID 04/27/23 04/27/23 2 Weeks Ago History ~04/13/23 folic acid 1 mg tablet 1 mg PO DAILY 04/27/23 04/27/23 2 Weeks Ago History ~04/13/23 furosemide 20 mg tablet 20 mg PO DAILY 04/27/23 04/27/23 2 Weeks Ago History ~04/13/23 metoprolol succinate 25 mg 25 mg PO DAILY 04/27/23 04/27/23 2 Weeks Ago History tablet,extended release 24 hr ~04/13/23 Exam Height,Weight and Vital Signs: Height 5 ft Weight 49.6 kg Last Vital Signs Temp 97.3 F 04/30/23 08:00 Pulse 64 04/30/23 08:00 Resp 18 04/30/23 08:00 BP 112/62 04/30/23 08:00 Pulse Ox 98 04/30/23 08:00 O2 Del Method Room Air 04/30/23 08:00 O2 Flow Rate 2 04/28/23 07:46 Oxygen Flow Rate 2 04/27/23 13:32 Pertinent Lab Results Pertinent Lab Results: Laboratory Tests 04/27/23 04/27/23 04/27/23 13:52 16:30 18:48 WBC 14.6 H RBC 4.74 Hgb 12.2 L Hct 37.4 L MCV 78.9 L MCH 25.7 L MCHC 32.6 RDW 17.5 H Plt Count 192 MPV 8.7 L Immature Gran % (Auto) 0.4 Neut % (Auto) 68.5 Lymph % (Auto) 15.4 L [place] % (Auto) 10.8 Eos % (Auto) 4.3 H Baso % (Auto) 0.6 Lymph # (Auto) 2.3 [place] # (Auto) 1.6 H Eos # (Auto) 0.6 H Baso # (Auto) 0.1 Abs Immat Gran (auto) 0.06 H Absolute Neuts (auto) 10.0 H Absolute Nucleated RBC 0.000 Nucleated RBC % (auto) 0.0 Smear Tech's Comments VERIFIED ESR 19 H Sodium 138 Potassium 3.6 Chloride 104 Carbon Dioxide 21 L Anion Gap 17 BUN 14 Creatinine 0.85 Estim Creat Clear Calc 58.0 Estimated GFR > 60 Random Glucose 102 Fasting Glucose Lactic Acid 1.0 Calcium 9.0 D Magnesium 2.2 Total Bilirubin 0.3 AST 18 ALT 12 Alkaline Phosphatase 91 Troponin I High Sens 6.1 C-Reactive Protein 0.91 H Total Protein 7.5 Albumin 3.8 Triglycerides Cholesterol LDL Cholesterol, Calc HDL Cholesterol Urine Color Yellow Urine Appearance Clear Urine pH 6.0 Ur Specific [place] 1.015 Urine Protein Trace Urine Glucose (UA) Negative Urine Ketones Negative Urine Blood Negative Urine Nitrite Negative Ur Leukocyte Esterase Negative Random Vancomycin Urine Opiates Screen Not Detected Urine Fentanyl Screen POSITIVE H Ur Barbiturates Screen Not Detected Ur Phencyclidine Scrn Not Detected Ur Amphetamines Screen Not Detected U Benzodiazepines Scrn Not Detected Urine Cocaine Screen Not Detected U Marijuana (THC) Screen Not Detected 04/28/23 04/29/23 04/29/23 07:54 06:03 15:48 WBC 12.4 H 14.1 H RBC 4.42 L 4.36 L Hgb 11.5 L 11.4 L Hct 34.8 L 34.5 L MCV 78.7 L 79.1 L MCH 26.0 L 26.1 L MCHC 33.0 33.0 RDW 17.5 H 17.5 H Plt Count 172 179 MPV 9.3 L 9.9 Immature Gran % (Auto) 0.4 Neut % (Auto) 53.9 Lymph % (Auto) 27.1 [place] % (Auto) 13.6 H Eos % (Auto) 4.2 H Baso % (Auto) 0.8 Lymph # (Auto) 3.8 [place] # (Auto) 1.9 H Eos # (Auto) 0.6 H Baso # (Auto) 0.1 Abs Immat Gran (auto) 0.06 H Absolute Neuts (auto) 7.6 Absolute Nucleated RBC 0.000 0.000 Nucleated RBC % (auto) 0.0 0.0 Smear Tech's Comments VERIFIED ESR Sodium 140 Potassium 3.5 Chloride 110 H Carbon Dioxide 21 L Anion Gap 13 BUN 14 Creatinine 0.82 0.79 Estim Creat Clear Calc 59.6 61.9 Estimated GFR > 60 > 60 Random Glucose Fasting Glucose 94 Lactic Acid Calcium 8.6 Magnesium Total Bilirubin 0.7 AST 15 ALT 11 Alkaline Phosphatase 76 Troponin I High Sens C-Reactive Protein Total Protein 7.0 Albumin 3.6 Triglycerides 99 Cholesterol 145 LDL Cholesterol, Calc 93 HDL Cholesterol 33 L Urine Color Urine Appearance Urine pH Ur Specific [place] Urine Protein Urine Glucose (UA) Urine Ketones Urine Blood Urine Nitrite Ur Leukocyte Esterase Random Vancomycin 8.8 L Urine Opiates Screen Urine Fentanyl Screen Ur Barbiturates Screen Ur Phencyclidine Scrn Ur Amphetamines Screen U Benzodiazepines Scrn Urine Cocaine Screen U Marijuana (THC) Screen 04/30/23 06:43 WBC 16.3 H RBC 4.74 Hgb 12.3 L Hct 36.9 L MCV 77.8 L MCH 25.9 L MCHC 33.3 RDW 17.5 H Plt Count 186 MPV 9.3 L Immature Gran % (Auto) 0.4 Neut % (Auto) 60.0 Lymph % (Auto) 21.7 [place] % (Auto) 12.5 H Eos % (Auto) 4.5 H Baso % (Auto) 0.9 Lymph # (Auto) 3.5 [place] # (Auto) 2.0 H Eos # (Auto) 0.7 H Baso # (Auto) 0.1 Abs Immat Gran (auto) 0.06 H Absolute Neuts (auto) 9.8 H Absolute Nucleated RBC 0.000 Nucleated RBC % (auto) 0.0 Smear Tech's Comments VERIFIED ESR Sodium 141 Potassium 3.5 Chloride 112 H Carbon Dioxide 19 L Anion Gap 14 BUN 12 Creatinine 0.85 Estim Creat Clear Calc 57.5 Estimated GFR > 60 Random Glucose Fasting Glucose 101 H Lactic Acid Calcium 9.1 Magnesium Total Bilirubin 0.8 AST 15 ALT 12 Alkaline Phosphatase 77 Troponin I High Sens C-Reactive Protein Total Protein 7.4 Albumin 3.8 Triglycerides Cholesterol LDL Cholesterol, Calc HDL Cholesterol Urine Color Urine Appearance Urine pH Ur Specific [place] Urine Protein Urine Glucose (UA) Urine Ketones Urine Blood Urine Nitrite Ur Leukocyte Esterase Random Vancomycin Urine Opiates Screen Urine Fentanyl Screen Ur Barbiturates Screen Ur Phencyclidine Scrn Ur Amphetamines Screen U Benzodiazepines Scrn Urine Cocaine Screen U Marijuana (THC) Screen Airway Mallampati Class: II TM Dist: >3cm Neck ROM: Limited Heart: rrr Assessment and Plan Assessment Anesthesia Assessment: Anesthesia Plan Discussed Final Anesthetic Review Family History of Problems with Anesthesia: No History of Problems with Anesthesia: No NPO: Yes ASA Class: IV Final Preanesthetic Review: No Changes in Pt Med Stat, Meds/Allgs Chart Reviewed, Consent Obtained/Reviewed and Anes Risks/Benef Reviewed Patient Risk: High Procedure Risk: Intermediate Anesthetic Plan Anesthetic Plan: Regional Block and Agree w/ Assess. and Plan Disposition: Standard PACU
--- NOTE | 2023-04-30 13:19 | PM.EVENT ---
Event Note Date of Service: 04/30/23 Event Note: For revision of an AKA stump on the left - open wound with tip of the femur exposed Plan is to resect more of the femur, flap closure with soft tissue to cover the stump He understands risks of bleeding, infections, poor healing, flap necrosis, postop pain, inherent risk of anesthesia He has given consent He states that he does not need to update any family member about the procedure Plan discussed with hospitalist service Time Spent With Patient Time: Total time managing care of this patient today ____ minutes.
--- NOTE | 2023-04-30 13:38 | PC.NURSE ---
Patient in preop. Coughing intermittently, lung sounds throughout rhonchi with expiratory wheezing. Heavy smoker, SaO2 97%. Dr. Browne made aware. No new orders at this time.
--- NOTE | 2023-04-30 14:08 | P.PNIM_ITS ---
Subjective Subjective Date of Service: 04/30/23 Interval History: Seen this a.m.. Pain control adequate awaiting surgery Review of Systems Denies chest pain Denies shortness of breath Denies nausea vomiting diarrhea Denies fever chills Physical Exam 2 Vital Signs: Vital Signs: Last Vital Signs Temp 98.1 F 04/30/23 13:14 Pulse 52 04/30/23 13:14 Resp 16 04/30/23 13:14 BP 109/69 04/30/23 13:14 Pulse Ox 97 04/30/23 13:14 O2 Del Method Room Air 04/30/23 13:14 O2 Flow Rate 2 04/28/23 07:46 Oxygen Flow Rate 2 04/27/23 13:32 BMI result Body Mass Index 21.4 Const: Other: Awake alert no acute distress Resp: Other: Clear to auscultation bilaterally no rales rhonchi or wheezes Cardio: Other: No S4; positive S1-S2; no S3 murmurs rubs or gallops GI: Other: Soft nontender nondistended normoactive bowel sounds Skin: Other: See admission pictures Extrem: Other: Left AKA; superficial left hip the cube; deep right hip to cue with granulation no necrotic tissue; right ischial ulceration Objective Data Active Medications Acetaminophen (Acetaminophen 325 Mg Tablet) 650 mg PO Q6H PRN PRN Reason: Pain, Mild (Pain Scale 1-3) Aspirin (Aspirin Enteric Coated 81 Mg Tablet.Dr) 81 mg PO DAILY [facility] Last Admin: 04/30/23 08:43 Dose: 81 mg Documented By: RADHA Atorvastatin Calcium (Atorvastatin Calcium 40 Mg Tablet) 40 mg PO BEDTIME [facility] Last Admin: 04/29/23 21:51 Dose: 40 mg Documented By: LAFLAMLucy Benzonatate (Benzonatate 100 Mg Capsule) 100 mg PO TID PRN PRN Reason: Cough Clonidine HCl (Clonidine Hcl 0.1 Mg Tablet) 0.1 mg PO BID [facility]; Protocol Last Admin: 04/30/23 08:43 Dose: 0.1 mg Documented By: RADHA Docusate Sodium (Docusate Sodium 100 Mg Capsule) 100 mg PO DAILY PRN PRN Reason: Constipation Enoxaparin Sodium (Enoxaparin Sodium 40 Mg/0.4 Ml Syringe) 40 mg SUBCUT Q24H [facility] Last Admin: 04/29/23 17:12 Dose: Not Given Documented By: KARIME Non-Admin Reason: Physician Approved Fentanyl (Fentanyl Citrate/Pf 100 Mcg/2 Ml Vial) 25 mcg IVPUSH Q5M PRN; Protocol PRN Reason: Pain, Moderate(Pain Scale 4-6) Furosemide (Furosemide 20 Mg Tablet) 20 mg PO DAILY [facility]; Protocol Last Admin: 04/30/23 08:44 Dose: 20 mg Documented By: RADHA Hydromorphone HCl (Hydromorphone Hcl 1 Mg/Ml Syringe) 1 mg IVPUSH Q4H PRN; Protocol PRN Reason: Pain, Severe (Pain Scale 7-10) Last Admin: 04/29/23 23:50 Dose: 1 mg Documented By: IGOR Hydromorphone HCl (Hydromorphone Hcl 0.5 Mg/0.5 Ml Syringe) 0.25 mg IVPUSH Q5M PRN; Protocol PRN Reason: Pain, Severe (Pain Scale 7-10) Piperacillin Sod/Tazobactam (Sod 3.375 gm/ Sodium Chloride) 50 mls @ 100 mls/hr IV Q6H [facility] Last Infusion: 04/30/23 12:35 Dose: Infused Documented By: RADHA Vancomycin HCl 1,500 mg/ (Sodium Chloride) 500 mls @ 333.333 mls/hr IV Q24H [facility] Last Infusion: 04/29/23 18:52 Dose: Infused Documented By: KARIME Levetiracetam (Levetiracetam 500 Mg Tablet) 500 mg PO BID [facility] Last Admin: 04/30/23 08:43 Dose: 500 mg Documented By: ARDHA Lorazepam (Lorazepam 0.5 Mg Tablet) 0.5 mg PO Q6H PRN PRN Reason: Anxiety Last Admin: 04/28/23 21:20 Dose: 0.5 mg Documented By: CAITIE Melatonin (Melatonin 3 Mg Tablet) 6 mg PO BEDTIME PRN PRN Reason: Insomnia Last Admin: 04/27/23 20:53 Dose: 6 mg Documented By: KILEY Metoprolol Succinate (Metoprolol Succinate Er 25 Mg Tab.Er.24h) 25 mg PO DAILY [facility]; Protocol Last Admin: 04/30/23 08:43 Dose: 25 mg Documented By: RADHA Nicotine (Nicotine 21 Mg Patch.Td24) 21 mg TRANSDERMA DAILY [facility] Last Admin: 04/30/23 08:48 Dose: 21 mg Documented By: RADHA Ondansetron HCl (Ondansetron Hcl 4 Mg/2 Ml Vial) 4 mg IVPUSH Q8H PRN PRN Reason: Nausea and Vomiting Oxycodone HCl (Oxycodone Hcl Immed Release 5 Mg Tablet) 10 mg PO Q4H PRN PRN Reason: Pain, Moderate(Pain Scale 4-6) Last Admin: 04/30/23 08:47 Dose: 10 mg Documented By: RADHA Pharmacy Consult (Consult Rx Vancomycin Dosing) 1 each MISCELLANE DAILY PRN PRN Reason: Consult order Sodium Chloride (0.9 % Sodium Chloride Flush 3 Ml Syringe) 3 ml IVFLUSH [facility] Last Admin: 04/30/23 08:43 Dose: 3 ml Documented By: RADHA Labs 04/30/23 06:43 04/30/23 06:43 Labs: Laboratory Results - last 24 hr 04/29/23 04/30/23 15:48 06:43 MCV 77.8 L MCH 25.9 L MCHC 33.3 RDW 17.5 H Plt Count 186 MPV 9.3 L Immature Gran % (Auto) 0.4 Neut % (Auto) 60.0 Lymph % (Auto) 21.7 [place] % (Auto) 12.5 H Eos % (Auto) 4.5 H Baso % (Auto) 0.9 Lymph # (Auto) 3.5 [place] # (Auto) 2.0 H Eos # (Auto) 0.7 H Baso # (Auto) 0.1 Abs Immat Gran (auto) 0.06 H Absolute Neuts (auto) 9.8 H Absolute Nucleated RBC 0.000 Nucleated RBC % (auto) 0.0 Smear Tech's Comments VERIFIED Anion Gap 14 Estim Creat Clear Calc 57.5 Estimated GFR > 60 Fasting Glucose 101 H Calcium 9.1 Total Bilirubin 0.8 AST 15 ALT 12 Alkaline Phosphatase 77 Total Protein 7.4 Albumin 3.8 Random Vancomycin 8.8 L Microbiology Microbiology Results: Microbiology 04/27/23 17:05 Blood Culture - Preliminary Blood - Venous No growth after 48 hours. 04/27/23 16:30 Blood Culture - Preliminary Blood - Venous No growth after 48 hours. Assessment and Plan (1) Seizure: Status: Acute (2) AKA stump complication: Status: Acute Plan Pt is a 68-year-old male with a PMH significant for?paroxysmal AFib not compliant with Eliquis, CAD s/p CABG, PAD s/p AKA, hx prior CVAs (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 Pt will be admitted to the hospital for treatment and further evaluation of breakthrough seizure, subacute CVA, and chronic nonhealing wounds. 1.Breakthrough seizure(noncompliance) -Keppra load on admission; continue outpatient dosing -no further seizures since admit 2.Chronic nonhealing wounds .. question of osteomyelitis. Sepsis resolved -vanco/Zosyn (4) -follow-up postop and discussed with patient our ED complaining treatment for osteomyelitis -id recommendations noted 3.Subacute CVA -appreciate neurology input -likely old event -will consider anticoagulation upon discharge 4.Polysubstance use disorder -patient admits to daily heroin use secondary to pain -no desire to stop -will order Dilaudid/oxycodone for pain -will consider methadone upon DC -if willing to undergo treatment of osteomyelitis will need facility given history of substance abuse 5.Paroxysmal AFib -examined NSR at present -will discuss utility of restarting amiodarone with cardiology given history of noncompliance -continue beta-blockade as rate is acceptable -adjust as indicated Full Code Lovenox Pt will require ongoing hospitalization to verify presence of osteomyelitis and for left stump revision. Will likely need long-term antibiotics and surgical intervention Quality Stroke Does the patient have a stroke diagnosis?: No Reason for No Anti-thrombotic by Day Two: Contraindicated VTE Prior VTE?: No VTE Risk Level:: Medical - moderate - high VTE Device Contraindication: Treatment Not Indicated VTE Drug Contraindication: N/A - Med Ordered
--- NOTE | 2023-04-30 14:19 | MHC.CM.PN ---
EMR reviewed and per MD rounds, pt is not medically cleared for D/C due to pending surgery for left AKA stump revision today, pt will need terminal make up operator IV abx. CM will continue to follow.
--- NOTE | 2023-04-30 14:50 | W.PM.OPN ---
Operative Note Operative Note Date of Service: 04/30/23 Narrative: Preop diagnosis: Open wound, AKA stump on the left, with femur protruding through wound Postop diagnosis: The same Procedure: Revision of AKA stump, with resection of 5 cm of femur Surgeon: Ruy Ch MD human resources assistant: MAXIM Sierra The patient is a 68-year-old male admitted because of an open wound on an old AKA stump on the left. He does not know the details of this surgery before. There was note of the end of the femur oral 1 protruding through the open wound. I explained to him that we should proceed with revision of the stump. I explained the technique of the procedure as well as the risks, benefits, and alternatives. Had given consent. He was brought to the operating room. He was placed supine under monitored anesthesia care with regional block done earlier by the anesthesiologist. The AKA stump was prepped and draped in the usual sterile fashion. A surgical time-out had been done for the patient was receiving scheduled antibiotics I infiltrated the planned line of incision with lidocaine 1%. I made an elliptical incision around the open wound using blade 15. This carried down through the full-thickness of the skin and subcutaneous fat and this entire elliptical area including the open wound was excised. The stump was exposed by Mar[place]aga electrocautery to release seizure surrounding the stump. This included soft tissue and muscle. I continued to develop a plane between the soft tissue surrounding the stump using a combination of sharp dissection with the cautery as well as blunt dissection. I used the periosteal elevator to clear up this are stump. Once this was defined and cleared of soft tissue, I used the bone saw to divide this stump of distal femur. I resected 5 cm of this femoral bone. I used the bone file to smoothen the edges of the new stump. I applied a bone wax for hemostasis. I observed for hemostasis. There was note of a bleeding vessel in the soft tissue of the posterior muscles which I controlled with a Polysorb 3-0 tie . I copiously irrigated. Once hemostasis was confirmed, I proceeded to then reapposed the soft tissues anterior and posterior to the bone including what ever fascia was visible using Polysorb 2-0 interrupted sutures to cover the entire stump as flaps. Multiple sutures were placed. We had adequate coverage of the entire stump. The skin with skin fabian. I infiltrated the area around the incision with Marcaine 0.5% for postop analgesia. Thick dressings were applied. The procedure was then completed. The patient tolerated the procedure well. There were no immediate complications. Initial and final counts of sponges and instruments were correct. Estimated blood loss was about 25 cc The patient was then transferred to the recovery room with stable vital signs.
--- NOTE | 2023-04-30 16:35 | PM.EVENT ---
Event Note Date of Service: 04/30/23 Event Note: Seen postop Underwent vision of AKA stump Looks comfortable Dressings dry Stable vital signs Pain management Will keep current dressing for 48 hours Time Spent With Patient Time: Total time managing care of this patient today ____ minutes.
[2023-04-30] MEDS: vancomycin HCL 1,500 MG in 0.9 % Sodium Chloride 500 ML 333.33 MG IV (17:44)
[2023-04-30] MEDS: Atorvastatin Calcium 40 MG TABLET PO (20:02)
[2023-04-30] MEDS: HYDROmorphone HCl 1 MG/ML SYRINGE IVPUSH (21:56)
[2023-04-30] MEDS: LORazepam 0.5 MG TABLET PO (22:16)
[2023-04-30] MEDS: Melatonin 3 MG TABLET 6 MG PO (22:34)
[2023-05-01] MEDS: Piperacillin Sodium/Tazobactam 3.375 GM in 0.9 % Sodium Chloride 50 ML IV ×5 (00:16→23:12)
[2023-05-01] MEDS: oxyCODONE HCl Immed Release 5 MG TABLET 10 MG PO ×2 (00:16→05:15)
[2023-05-01] MEDS: 0.9 % Sodium Chloride Flush 3 ML SYRINGE IVFLUSH ×3 (00:16→16:40)
[2023-05-01 01:25] VITALS: BP 92/68; PULSE 68; RESP 17; TEMP 36.9; O2SAT 92
[2023-05-01] MEDS: 0.9 % Sodium Chloride 500 ML IV (01:47)
[2023-05-01] MEDS: HYDROmorphone HCl 1 MG/ML SYRINGE IVPUSH ×3 (02:36→16:40)
[2023-05-01 02:54] VITALS: BP 133/59; PULSE 67; O2SAT 94
--- NOTE | 2023-05-01 04:05 | PC.NURSE ---
pt c/o pain 10/10, provided by emar. left stump fabian are intact but wrapping gauze and jesu wrap was pulled out with blood. clean with n.s and iodine. applied abd pad keiler gauzes wrapped with pelvic area and jesu wrapped. will continue to monitor.
[2023-05-01 07:35] VITALS: BP 112/61; PULSE 62; RESP 20; TEMP 36.7; O2SAT 97
--- NOTE | 2023-05-01 07:50 | P.PNGS_ITS ---
Subjective Subjective Date of Service: 05/01/23 <Gaby Sierra PA-C - Last Filed: 05/01/23 07:53> 05/01/23 <Ruy Ch MD - Last Filed: 05/01/23 10:15> Interval history: Dressing came off multiple times last night and was off upon exam this morning. Patient reports he no longer wants to be here. Pain controlled with analgesics. <Gaby Sierra PA-C - Last Filed: 05/01/23 07:53> Physical Exam 2 Vital Signs: Vital Signs: Last Vital Signs Temp 98.0 F 05/01/23 07:35 Pulse 62 05/01/23 07:35 Resp 20 05/01/23 07:35 BP 112/61 05/01/23 07:35 Pulse Ox 97 05/01/23 07:35 O2 Del Method Room Air 05/01/23 07:35 O2 Flow Rate 2 04/28/23 07:46 Oxygen Flow Rate 2 04/27/23 13:32 BMI result Body Mass Index 21.4 <Gaby Sierra PA-C - Last Filed: 05/01/23 07:53> Const: General: comfortable, no acute distress and alert <Gaby Sierra PA-C - Last Filed: 05/01/23 07:53> Orientation/consciousness: patient oriented x3 <Gaby Sierra PA-C - Last Filed: 05/01/23 07:53> Resp: Effort & Inspection: normal respiratory effort <Gaby Sierra PA-C - Last Filed: 05/01/23 07:53> Skin: Other: no rashes <Gaby Sierra PA-C - Last Filed: 05/01/23 07:53> Neuro: General: patient oriented x3 <COLIN Santoyo Last Filed: 05/01/23 07:53> Extrem: Other: left AKA stump site incision clean, very little edema, no drainage <COLIN Santoyo Last Filed: 05/01/23 07:53> Objective Data Active Medications Acetaminophen (Acetaminophen 325 Mg Tablet) 650 mg PO Q6H PRN PRN Reason: Pain, Mild (Pain Scale 1-3) Aspirin (Aspirin Enteric Coated 81 Mg Tablet.) 81 mg PO DAILY [facility] Last Admin: 04/30/23 08:43 Dose: 81 mg Documented By: RADHA Atorvastatin Calcium (Atorvastatin Calcium 40 Mg Tablet) 40 mg PO BEDTIME [facility] Last Admin: 04/30/23 20:02 Dose: 40 mg Documented By: SUSAN Benzonatate (Benzonatate 100 Mg Capsule) 100 mg PO TID PRN PRN Reason: Cough Clonidine HCl (Clonidine Hcl 0.1 Mg Tablet) 0.1 mg PO BID [facility]; Protocol Last Admin: 04/30/23 20:02 Dose: 0.1 mg Documented By: SUSAN Docusate Sodium (Docusate Sodium 100 Mg Capsule) 100 mg PO DAILY PRN PRN Reason: Constipation Enoxaparin Sodium (Enoxaparin Sodium 40 Mg/0.4 Ml Syringe) 40 mg SUBCUT Q24H [facility] Last Admin: 04/29/23 17:12 Dose: Not Given Documented By: KARIME Non-Admin Reason: Physician Approved Furosemide (Furosemide 20 Mg Tablet) 20 mg PO DAILY [facility]; Protocol Last Admin: 04/30/23 08:44 Dose: 20 mg Documented By: RADHA Hydromorphone HCl (Hydromorphone Hcl 1 Mg/Ml Syringe) 1 mg IVPUSH Q4H PRN; Protocol PRN Reason: Pain, Severe (Pain Scale 7-10) Last Admin: 05/01/23 02:36 Dose: 1 mg Documented By: GODWIN Piperacillin Sod/Tazobactam (Sod 3.375 gm/ Sodium Chloride) 50 mls @ 100 mls/hr IV Q6H [facility] Last Infusion: 05/01/23 06:33 Dose: Infused Documented By: GODWIN Vancomycin HCl 1,500 mg/ (Sodium Chloride) 500 mls @ 333.333 mls/hr IV Q24H [facility] Last Infusion: 04/30/23 19:28 Dose: Infused Documented By: SUSAN Levetiracetam (Levetiracetam 500 Mg Tablet) 500 mg PO BID [facility] Last Admin: 04/30/23 20:02 Dose: 500 mg Documented By: SUSAN Lorazepam (Lorazepam 0.5 Mg Tablet) 0.5 mg PO Q6H PRN PRN Reason: Anxiety Last Admin: 04/30/23 22:16 Dose: 0.5 mg Documented By: SUSAN Melatonin (Melatonin 3 Mg Tablet) 6 mg PO BEDTIME PRN PRN Reason: Insomnia Last Admin: 04/30/23 22:34 Dose: 6 mg Documented By: SUSAN Metoprolol Succinate (Metoprolol Succinate Er 25 Mg Tab.Er.24h) 25 mg PO DAILY [facility]; Protocol Last Admin: 04/30/23 08:43 Dose: 25 mg Documented By: RADHA Nicotine (Nicotine 21 Mg Patch.Td24) 21 mg TRANSDERMA DAILY [facility] Last Admin: 04/30/23 08:48 Dose: 21 mg Documented By: RADHA Ondansetron HCl (Ondansetron Hcl 4 Mg/2 Ml Vial) 4 mg IVPUSH Q8H PRN PRN Reason: Nausea and Vomiting Oxycodone HCl (Oxycodone Hcl Immed Release 5 Mg Tablet) 10 mg PO Q4H PRN PRN Reason: Pain, Moderate(Pain Scale 4-6) Last Admin: 05/01/23 05:15 Dose: 10 mg Documented By: GODWIN Pharmacy Consult (Consult Rx Vancomycin Dosing) 1 each MISCELLANE DAILY PRN PRN Reason: Consult order Sodium Chloride (0.9 % Sodium Chloride Flush 3 Ml Syringe) 3 ml IVFLUSH QSHIFT [facility] Last Admin: 05/01/23 00:16 Dose: 3 ml Documented By: GODWIN <Gaby Sierra PA-C - Last Filed: 05/01/23 07:53> Labs CBC & Chem 7: 05/01/23 07:02 05/01/23 07:02 <Gaby Sierra PA-C - Last Filed: 05/01/23 07:53> Labs: Laboratory Results - last 24 hr 04/30/23 06:43 MCV 77.8 L MCH 25.9 L MCHC 33.3 RDW 17.5 H Plt Count 186 MPV 9.3 L Immature Gran % (Auto) 0.4 Neut % (Auto) 60.0 Lymph % (Auto) 21.7 [place] % (Auto) 12.5 H Eos % (Auto) 4.5 H Baso % (Auto) 0.9 Lymph # (Auto) 3.5 [place] # (Auto) 2.0 H Eos # (Auto) 0.7 H Baso # (Auto) 0.1 Abs Immat Gran (auto) 0.06 H Absolute Neuts (auto) 9.8 H Absolute Nucleated RBC 0.000 Nucleated RBC % (auto) 0.0 Smear Tech's Comments VERIFIED <Gaby Sierra PA-C - Last Filed: 05/01/23 07:53> Procedures Date of Service Date of Service: 05/01/23 <Gaby Sierra PA-C - Last Filed: 05/01/23 07:53> 05/01/23 <Ruy Ch MD - Last Filed: 05/01/23 10:15> Progress Note: A&P Assessment and plan (1) AKA stump complication: Status: Acute <Gaby Sierra PA-C - Last Filed: 05/01/23 07:53> Assessment and Plan: Dressings dry Seems to have good pain control Wound care with daily dressing changes, dry gauze Seen and examined independently <Ruy Ch MD - Last Filed: 05/01/23 10:15> Assessment and Plan: POD #1 s/p revision of AKA stump. Doing well post op, good pain control. Incision site clean with very little edema. Incision redressed with fluffs, abd, kerlix and jesu wrap x 2 with stockinette. Due to stump length and patient, dressing will be hard to keep in place. <Gaby Sierra PA-C - Last Filed: 05/01/23 07:53> Time Spent With Patient Time: Total time managing care of this patient today ____ minutes. <Gaby Sierra PA-C - Last Filed: 05/01/23 07:53> Quality Stroke Does the patient have a stroke diagnosis?: No <Gaby Sierra PA-C - Last Filed: 05/01/23 07:53> Reason for No Anti-thrombotic by Day Two: Contraindicated <Gaby Sierra PA-C - Last Filed: 05/01/23 07:53> VTE Prior VTE?: No <Gaby Sierra PA-C - Last Filed: 05/01/23 07:53> VTE Risk Level:: Medical - moderate - high <Gaby Sierra PA-C - Last Filed: 05/01/23 07:53> VTE Device Contraindication: Treatment Not Indicated <Gaby Sierra PA-C - Last Filed: 05/01/23 07:53> VTE Drug Contraindication: N/A - Med Ordered <Gaby Sierra PA-C - Last Filed: 05/01/23 07:53>
[2023-05-01 08:10] LABS: Basophils Absolute Auto 0.1 X10*3/uL (0.0-0.2); Basophils Percent Auto 0.7 % (0-2); Eosinophils Absolute Auto 0.3 X10*3/uL (0.0-0.4); Eosinophils Percent Auto 1.6 % (0-4); Hematocrit 35.4 % (42.0-52.0); Hemoglobin 11.7 g/dl (14.0-18.0); Imm Gran Abs Auto 0.09 X10*3/uL (0.00-0.03); Imm Gran Pct Auto 0.5 % (0.0-0.4); Lymphocytes Absolute Auto 2.8 X10*3/uL (1.2-4.9); Lymphocytes Percent Auto 16.5 % (20-40); MANUAL DIFF FLAG SCAN; Mean Corpuscular HGB Conc 33.1 g/dl (31.0-36.0); Mean Corpuscular Hemoglobin 26.2 pg (27.0-33.0); Mean Corpuscular Volume 79.2 fL (80.0-98.0); Mean Platelet Volume 9.7 fL (9.4-12.4); Monocytes Absolute Auto 2.7 X10*3/uL (0.1-1.2); Monocytes Percent Auto 15.9 % (2-11); Neutrophils Absolute Auto 11.2 x10*3/uL (2.0-8.3); Neutrophils Percent Auto 64.8 % (45-73); Platelet Count 184 X10*3/uL (160-400); Red Blood Count 4.47 X10*6/uL (4.60-5.80); SCAN SMEAR FLAG 1; White Blood Count 17.3 X10*3/uL (4.8-10.8)
[2023-05-01 08:21] LABS: Alanine Aminotransferase 10 U/L (0-40); Albumin Level 3.7 g/dL (3.5-5.0); Alkaline Phosphatase 71 U/L (39-117); Anion Gap 12 (12-20); Aspartate Amino Transferase 14 U/L (5-37); Bilirubin Total 0.8 mg/dL (0.0-1.0); Blood Urea Nitrogen 13 mg/dL (9-16); Calcium 8.7 mg/dL (8.4-10.2); Carbon Dioxide 23 mmol/L (22-29); Chloride 110 mmol/L (96-108); Creatinine Clr Calc Pharmacy 57.5; Estimated Glomerular Filt Rate > 60; Glucose Fasting 106 mg/dL (60-99); Potassium 3.4 mmol/L (3.3-5.1); Sodium 142 mmol/L (135-145); Total Protein 7.1 g/dL (6.5-8.0)
[2023-05-01 09:14] LABS: SLIDE REVIEW VERIFIED
[2023-05-01] MEDS: Furosemide 20 MG TABLET PO (09:34)
[2023-05-01] MEDS: levETIRAcetam 500 MG TABLET PO ×2 (09:34→23:11)
[2023-05-01] MEDS: cloNIDine HCL 0.1 MG TABLET PO ×2 (09:34→23:11)
[2023-05-01] MEDS: Aspirin Enteric Coated 81 MG TABLET.DR PO (09:34)
[2023-05-01] MEDS: LORazepam 0.5 MG TABLET PO (09:34)
[2023-05-01] MEDS: Metoprolol Succinate ER 25 MG TAB.ER.24H PO (09:34)
[2023-05-01] MEDS: Nicotine 21 MG PATCH.TD24 TRANSDERMA (09:35)
--- NOTE | 2023-05-01 10:12 | HO.POSTANES ---
Post Anesthesia Evaluation Post Anesthesia Evaluation Date of Service: 05/01/23 Vital Signs: Vital Signs Temp Pulse Resp BP Pulse Ox O2 Del Method 05/01/23 07:35 98.0 F 62 20 112/61 97 Room Air 05/01/23 02:54 67 133/59 L 94 Room Air 05/01/23 01:25 98.4 F 68 17 92/68 92 Room Air Anesthesia: Monitored and Nerve Block Mental Status: Awake Pain Control: Satisfactory Nausea/Vomiting: None Hydration: Adequate Anesthesia-Related Issues: No Anes. Related Issues
--- NOTE | 2023-05-01 10:54 | PM.CNCAR ---
History of Present Illness History of Present Illness Date of Service: 05/01/23 Requesting physician: Oleg Morley Consult reason: other (Cardiac arrhythmia) Chief complaint: ?CVA vs seizure, cellulitis of stump Narrative: I was consulted to see Phan in cardiology consultation today for cardiac arrhythmias. Has a very complicated and extensive past medical history which is difficult to compile. Patient is not a good historian. He is crying all the time when asked questions. Patient admitted to the hospital with left above knee amputation stump complication and infection with open wound. Patient with significant past cardiovascular history with history of paroxysmal atrial fibrillation, CAD status post coronary artery bypass grafting, which she says was done for myocardial infarction. Details not available. , prior history of strokes and with recent stroke and seizure disorder. Failure to thrive overall with prior drug abuse. Also carotid artery stenosis. Patient came to the hospital and cardiology consult was sought both for atrial fibrillation and on the monitor was noted to have nonsustained VT. Echocardiogram shows [id number] LV systolic dysfunction consistent with ischemic cardiomyopathy. He denies any cardiac symptoms at current time. He also has history of noncompliance with follow-up care as well as medications. Review of Systems Constitutional: Constitutional: Reports no additional constitutional complaints Eyes: Eyes: Reports no additional eye complaints Cardiovascular: Cardiovascular: Reports no additional cardiovascular complaints Respiratory: Respiratory: Reports no additional respiratory complaints Gastrointestinal: Gastrointestinal: Reports no additional gastrointestinal complaints Musculoskeletal: Musculoskeletal: Reports no additional musculoskeletal complaints [facility] Past Medical History Medical History (Updated 05/01/23 @ 11:06 by Gustavo Cox MD) Above knee amputation of left lower extremity Fall Leukocytosis MDD (major depressive disorder), recurrent episode, moderate Opioid use disorder, moderate, dependence Pneumonitis Pneumonia Atherosclerotic cardiovascular disease History of hemorrhagic cerebrovascular accident (CVA) without residual deficits Subclavian arterial stenosis Atrial flutter Cardiomyopathy Opioid use disorder Seizure disorder Acute combined systolic and diastolic congestive heart failure COPD (chronic obstructive pulmonary disease) Cocaine abuse with intoxication Toxic encephalopathy 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 Hyperlipemia CHF (congestive heart failure) Seizure-like activity Cardiac arrest Atrial flutter Paroxysmal atrial fibrillation PVD (peripheral vascular disease) CAD (coronary artery disease) Heroin use Family History Family history: reviewed and not pertinent Surgical History Surgical History Hx of AKA (above knee amputation) S/P CABG x 2 Social History Social History Household Members: Spouse Housing: House Do you presently have visiting nurse or other home services: No Unable to assess alcohol history related to: Unable to respond Alcohol intake: current Alcohol intake frequency: does not drink Comment: Pt refused bed alarm, [employer] camera outside patient's room for safety. Patient Tobacco Use Status: Current everyday Tobacco user Tobacco use type: Cigarette Cigarette Packs Per Day: 1.5 Cigarettes Per Day: 30.0 Years Smoked: 25 Smoked in Last 30 Days: Yes e-Cigarette/Vaping Use: Currently Using Second Hand Smoke Exposure: No Use of substances other than those prescribed or required for medical reasons: Yes Substance Use Type: Heroin Substance Use Frequency: Chronic Longstanding Last Used Substance: Days (ago) Currently Displaying Signs/Symptoms of Drug Intoxication Withdrawal: No Any prior treatment program specific to substance use: Yes Have you been hit, kicked, punched, or otherwise hurt by someone within the past year? If so, by whom?: No Do you feel safe in your current relationship?: Yes Is there a partner from a previous relationship who is making you feel unsafe now?: No Are you made to feel afraid or neglected: No Are you DNR?: No Advance Directives: Yes Advance Directives on File: Yes Advance Directives Date on File: 01/12/21 Do you have thoughts of harming others: None Do you have a plan to hurt others: No Plan Eating poorly because of decreased appetite: Yes Nutrition Risks: No Nutritional Risk service: No Current occupational status: retired Meds Allergies Allergy/AdvReac Type Severity Reaction Status Date / Time No Known Allergies Allergy Verified 04/30/23 13:06 Active Medications: Current Medications Acetaminophen (Acetaminophen 325 Mg Tablet) 650 mg PO Q6H PRN PRN Reason: Pain, Mild (Pain Scale 1-3) Apixaban (Apixaban 5 Mg Tablet) 5 mg PO BID CARLIE Aspirin (Aspirin Enteric Coated 81 Mg Tablet.) 81 mg PO DAILY [facility] Last Admin: 05/01/23 09:34 Dose: 81 mg Atorvastatin Calcium (Atorvastatin Calcium 40 Mg Tablet) 40 mg PO BEDTIME [facility] Last Admin: 04/30/23 20:02 Dose: 40 mg Benzonatate (Benzonatate 100 Mg Capsule) 100 mg PO TID PRN PRN Reason: Cough Clonidine HCl (Clonidine Hcl 0.1 Mg Tablet) 0.1 mg PO BID [facility]; Protocol Last Admin: 05/01/23 09:34 Dose: 0.1 mg Docusate Sodium (Docusate Sodium 100 Mg Capsule) 100 mg PO DAILY PRN PRN Reason: Constipation Furosemide (Furosemide 20 Mg Tablet) 20 mg PO DAILY [facility]; Protocol Last Admin: 05/01/23 09:34 Dose: 20 mg Hydromorphone HCl (Hydromorphone Hcl 1 Mg/Ml Syringe) 1 mg IVPUSH Q4H PRN; Protocol PRN Reason: Pain, Severe (Pain Scale 7-10) Last Admin: 05/01/23 09:34 Dose: 1 mg Piperacillin Sod/Tazobactam (Sod 3.375 gm/ Sodium Chloride) 50 mls @ 100 mls/hr IV Q6H [facility] Last Infusion: 05/01/23 06:33 Dose: Infused Vancomycin HCl 1,500 mg/ (Sodium Chloride) 500 mls @ 333.333 mls/hr IV Q24H [facility] Last Infusion: 04/30/23 19:28 Dose: Infused Levetiracetam (Levetiracetam 500 Mg Tablet) 500 mg PO BID [facility] Last Admin: 05/01/23 09:34 Dose: 500 mg Lorazepam (Lorazepam 0.5 Mg Tablet) 0.5 mg PO Q6H PRN PRN Reason: Anxiety Last Admin: 05/01/23 09:34 Dose: 0.5 mg Melatonin (Melatonin 3 Mg Tablet) 6 mg PO BEDTIME PRN PRN Reason: Insomnia Last Admin: 04/30/23 22:34 Dose: 6 mg Metoprolol Succinate (Metoprolol Succinate Er 25 Mg Tab.Er.24h) 25 mg PO DAILY [facility]; Protocol Last Admin: 05/01/23 09:34 Dose: 25 mg Nicotine (Nicotine 21 Mg Patch.Td24) 21 mg TRANSDERMA DAILY [facility] Last Admin: 05/01/23 09:35 Dose: 21 mg Ondansetron HCl (Ondansetron Hcl 4 Mg/2 Ml Vial) 4 mg IVPUSH Q8H PRN PRN Reason: Nausea and Vomiting Oxycodone HCl (Oxycodone Hcl Immed Release 5 Mg Tablet) 10 mg PO Q4H PRN PRN Reason: Pain, Moderate(Pain Scale 4-6) Last Admin: 05/01/23 05:15 Dose: 10 mg Pharmacy Consult (Consult Rx Vancomycin Dosing) 1 each MISCELLANE DAILY PRN PRN Reason: Consult order Sodium Chloride (0.9 % Sodium Chloride Flush 3 Ml Syringe) [facility] Last Admin: 05/01/23 09:35 Dose: 3 ml Home Medications Medication Instructions Recorded Confirmed Last Taken Type amiodarone 200 mg tablet 400 mg PO BID 04/27/23 04/27/23 2 Weeks Ago History ~04/13/23 apixaban 5 mg tablet (Eliquis) 5 mg PO BID 04/27/23 04/27/23 2 Weeks Ago History ~04/13/23 aspirin 81 mg tablet,delayed 81 mg PO DAILY 04/27/23 04/27/23 2 Weeks Ago History release ~04/13/23 atorvastatin 40 mg tablet 40 mg PO DAILY 04/27/23 04/27/23 2 Weeks Ago History ~04/13/23 clonidine HCl 0.1 mg tablet 0.1 mg PO BID 04/27/23 04/27/23 2 Weeks Ago History ~04/13/23 docusate sodium 100 mg capsule 100 mg PO BID 04/27/23 04/27/23 2 Weeks Ago History ~04/13/23 folic acid 1 mg tablet 1 mg PO DAILY 04/27/23 04/27/23 2 Weeks Ago History ~04/13/23 furosemide 20 mg tablet 20 mg PO DAILY 04/27/23 04/27/23 2 Weeks Ago History ~04/13/23 metoprolol succinate 25 mg 25 mg PO DAILY 04/27/23 04/27/23 2 Weeks Ago History tablet,extended release 24 hr ~04/13/23 Physical Exam Vital Signs: Vital Signs: Last Vital Signs Temp 98.0 F 05/01/23 07:35 Pulse 62 05/01/23 07:35 Resp 20 05/01/23 07:35 BP 112/61 05/01/23 07:35 Pulse Ox 97 05/01/23 07:35 O2 Del Method Room Air 05/01/23 07:35 O2 Flow Rate 2 04/28/23 07:46 Oxygen Flow Rate 2 04/27/23 13:32 BMI result Body Mass Index 21.4 Const: General: cooperative, comfortable, alert, awake and other (Recurrent Terri crying) Nutritional Appearance: malnourished and thin Orientation/consciousness: patient oriented x3 HEENT: Head: Yes normocephalic and Yes atraumatic Neck: Neck: Yes trachea midline, Yes supple and Yes no JVD Resp: Effort & Inspection: normal respiratory effort Auscultation: clear to auscultation bilaterally Cardio: Jugular venous distension: no JVD Rate: regular rate Rhythm: regular rhythm Heart sounds: S1 normal heart sound present, S2 normal heart sound present, no click, no gallops, no murmurs and no rubs GI: Auscultation: normal bowel sounds Skin: General skin exam: no rashes or lesions noted Neuro: General: patient oriented x3 and no focal motor deficits Objective Labs and Meds 05/01/23 07:02 05/01/23 07:02 Lab results: Laboratory Results - last 24 hr 05/01/23 07:02 WBC 17.3 H RBC 4.47 L Hgb 11.7 L Hct 35.4 L MCV 79.2 L MCH 26.2 L MCHC 33.1 RDW 18.0 H Plt Count 184 MPV 9.7 Immature Gran % (Auto) 0.5 H Neut % (Auto) 64.8 Lymph % (Auto) 16.5 L [place] % (Auto) 15.9 H Eos % (Auto) 1.6 Baso % (Auto) 0.7 Lymph # (Auto) 2.8 [place] # (Auto) 2.7 H Eos # (Auto) 0.3 Baso # (Auto) 0.1 Abs Immat Gran (auto) 0.09 H Absolute Neuts (auto) 11.2 H Absolute Nucleated RBC 0.000 Nucleated RBC % (auto) 0.0 Smear Tech's Comments VERIFIED Sodium 142 Potassium 3.4 Chloride 110 H Carbon Dioxide 23 Anion Gap 12 BUN 13 Creatinine 0.85 Estim Creat Clear Calc 57.5 Estimated GFR > 60 Fasting Glucose 106 H Calcium 8.7 Total Bilirubin 0.8 AST 14 ALT 10 Alkaline Phosphatase 71 Total Protein 7.1 Albumin 3.7 EKG on admission shows sinus tachycardia with PVCs with nonspecific ST changes Assessment and Plan (1) Paroxysmal atrial fibrillation: Status: Acute Paroxysmal atrial fibrillation with no clinical recurrence at this point time. Continue metoprolol therapy. I am not sure why he is on clonidine. If this is for psychological reasons can be continue otherwise taper and discontinue clonidine and switch to maximizing his beta-nina and adding neurohormonal modulation further ischemic cardiomyopathy. He also has nonsustained ventricular tachycardia related to ischemic cardiomyopathy. Continue metoprolol therapy and maximize as tolerated. Continue full oral anticoagulation, very high risk for recurrent stroke given his prior strokes. Agree with Eliquis. Issues going be compliance. (2) CAD (coronary artery disease): Status: Acute CAD as well as diffuse vascular disease. Continue high-intensity statin therapy. Continue aggressive risk factor modification. Blood pressure is optimized. Target goal LDL at 60 mg/dL. Currently both on Eliquis and aspirin therapy. Eventually for stable vascular disease would just continue full oral anticoagulation. (3) Ischemic cardiomyopathy: Status: Acute [id number] LV systolic dysfunction related to ischemic cardiomyopathy. No clinical signs of congestive heart failure. Would maximize neurohormonal modulation including metoprolol and consider adding angiotensin receptor nina. 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
[2023-05-01 11:25] VITALS: BP 118/57; PULSE 66; RESP 20; TEMP 36.6; O2SAT 99
--- NOTE | 2023-05-01 13:25 | HO.PM.IMPN ---
Subjective Subjective Date of Service: 05/01/23 Interval History: pain under control denies fever upset about needing long-term IV ABX Review of Systems Review of Systems: Yes all other systems are reviewed and are negative Physical Exam Vital Signs: Vital Signs: Last Vital Signs Temp 97.8 F 05/01/23 11:25 Pulse 66 05/01/23 11:25 Resp 20 05/01/23 11:25 BP 118/57 L 05/01/23 11:25 Pulse Ox 99 05/01/23 11:25 O2 Del Method Room Air 05/01/23 11:25 O2 Flow Rate 2 04/28/23 07:46 Oxygen Flow Rate 2 04/27/23 13:32 BMI result Body Mass Index 21.4 Gen: in no acute distress HEENT: sclera anicteric, moist mucus membranes Neck: supple Lungs: clear to auscultation bilaterally Heart: regular rate and rhythm, no murmurs Abd: soft, non-tender, non-distended Ext: no edema, L AKA with fabian in place clean/dry/intact Skin: warm/well-perfused, stage 4 pressure injury over R hip, stage 3 pressure injury over L hip, unstageable R ischial pressure injury Neuro: alert and oriented x3, no focal findings Psych: appropriate affect Objective Data Active Medications Acetaminophen (Acetaminophen 325 Mg Tablet) 650 mg PO Q6H PRN PRN Reason: Pain, Mild (Pain Scale 1-3) Apixaban (Apixaban 5 Mg Tablet) 5 mg PO BID [facility] Aspirin (Aspirin Enteric Coated 81 Mg Tablet.) 81 mg PO DAILY [facility] Last Admin: 05/01/23 09:34 Dose: 81 mg Documented By: CLIVE Atorvastatin Calcium (Atorvastatin Calcium 40 Mg Tablet) 40 mg PO BEDTIME [facility] Last Admin: 04/30/23 20:02 Dose: 40 mg Documented By: SUSAN Benzonatate (Benzonatate 100 Mg Capsule) 100 mg PO TID PRN PRN Reason: Cough Clonidine HCl (Clonidine Hcl 0.1 Mg Tablet) 0.1 mg PO BID [facility]; Protocol Last Admin: 05/01/23 09:34 Dose: 0.1 mg Documented By: CLIVE Docusate Sodium (Docusate Sodium 100 Mg Capsule) 100 mg PO DAILY PRN PRN Reason: Constipation Furosemide (Furosemide 20 Mg Tablet) 20 mg PO DAILY [facility]; Protocol Last Admin: 05/01/23 09:34 Dose: 20 mg Documented By: CLIVE Hydromorphone HCl (Hydromorphone Hcl 1 Mg/Ml Syringe) 1 mg IVPUSH Q4H PRN; Protocol PRN Reason: Pain, Severe (Pain Scale 7-10) Last Admin: 05/01/23 09:34 Dose: 1 mg Documented By: CLIVE Piperacillin Sod/Tazobactam (Sod 3.375 gm/ Sodium Chloride) 50 mls @ 100 mls/hr IV Q6H [facility] Last Infusion: 05/01/23 06:33 Dose: Infused Documented By: GODWIN Vancomycin HCl 1,500 mg/ (Sodium Chloride) 500 mls @ 333.333 mls/hr IV Q24H [facility] Last Infusion: 04/30/23 19:28 Dose: Infused Documented By: SUSAN Levetiracetam (Levetiracetam 500 Mg Tablet) 500 mg PO BID [facility] Last Admin: 05/01/23 09:34 Dose: 500 mg Documented By: CLIVE Lorazepam (Lorazepam 0.5 Mg Tablet) 0.5 mg PO Q6H PRN PRN Reason: Anxiety Last Admin: 05/01/23 09:34 Dose: 0.5 mg Documented By: CLIVE Melatonin (Melatonin 3 Mg Tablet) 6 mg PO BEDTIME PRN PRN Reason: Insomnia Last Admin: 04/30/23 22:34 Dose: 6 mg Documented By: SUSAN Metoprolol Succinate (Metoprolol Succinate Er 25 Mg Tab.Er.24h) 25 mg PO DAILY [facility]; Protocol Last Admin: 05/01/23 09:34 Dose: 25 mg Documented By: CLIVE Nicotine (Nicotine 21 Mg Patch.Td24) 21 mg TRANSDERMA DAILY [facility] Last Admin: 05/01/23 09:35 Dose: 21 mg Documented By: CLIVE Ondansetron HCl (Ondansetron Hcl 4 Mg/2 Ml Vial) 4 mg IVPUSH Q8H PRN PRN Reason: Nausea and Vomiting Oxycodone HCl (Oxycodone Hcl Immed Release 5 Mg Tablet) 10 mg PO Q4H PRN PRN Reason: Pain, Moderate(Pain Scale 4-6) Last Admin: 05/01/23 05:15 Dose: 10 mg Documented By: GODWIN Pharmacy Consult (Consult Rx Vancomycin Dosing) 1 each MISCELLANE DAILY PRN PRN Reason: Consult order Sodium Chloride (0.9 % Sodium Chloride Flush 3 Ml Syringe) 3 ml IVFLUSH QSHIFT [facility] Last Admin: 05/01/23 09:35 Dose: 3 ml Documented By: CLIVE Labs 05/01/23 07:02 05/01/23 07:02 Labs: Laboratory Results - last 24 hr 05/01/23 07:02 MCV 79.2 L MCH 26.2 L MCHC 33.1 RDW 18.0 H Plt Count 184 MPV 9.7 Immature Gran % (Auto) 0.5 H Neut % (Auto) 64.8 Lymph % (Auto) 16.5 L [place] % (Auto) 15.9 H Eos % (Auto) 1.6 Baso % (Auto) 0.7 Lymph # (Auto) 2.8 [place] # (Auto) 2.7 H Eos # (Auto) 0.3 Baso # (Auto) 0.1 Abs Immat Gran (auto) 0.09 H Absolute Neuts (auto) 11.2 H Absolute Nucleated RBC 0.000 Nucleated RBC % (auto) 0.0 Smear Tech's Comments VERIFIED Anion Gap 12 Estim Creat Clear Calc 57.5 Estimated GFR > 60 Fasting Glucose 106 H Calcium 8.7 Total Bilirubin 0.8 AST 14 ALT 10 Alkaline Phosphatase 71 Total Protein 7.1 Albumin 3.7 Assessment and Plan (1) Seizure: Status: Acute (2) AKA stump complication: Status: Acute Plan d5 68yo with paroxysmal AF not compliant with apixaban, CAD s/p CABG, PAD s/p AKA, hx prior CVAs [most recently in July 2022], seizure disorder, HTN, HLD, COPD not on home O2, polysubstance abuse presents to ED after reported seizure at home chronic nonhealing wounds with question of osteomyelitis subacute CVA on CT seizure due to noncompliance - loaded with levetiracetam, continue outpt dosing L AKA wound with protruding bone - Gen Surg consulted, revised AKA stump on 04/30/23, following postoperatively sepsis due to cellulitis and possibly osteomyelitis stage 4 pressure injury over R hip, stage 3 pressure injury over L hip, unstageable R ischial pressure injury - currently on d5 of vanco + pip-shameka; not bacteremic - suspect osteomyelitis; did not tolerate MRI R hip; will do contrast CT; ID recommendations noted- likely 6 wk IV ABX - wound care recommendations: Left Residual Leg - Cleanse and irrigate with NS, apply single layer Cuticerin Impregnated Mesh (Available in Storeroom) cover with Dry gauze and ABD Pad followed by wrap. Change daily until seen by surgical provider.,, Bilateral Hip / Trochanter and Right Ischium / buttocks - Cleanse and irrigate with NS, Pat dry. Apply barrier wip to periwound. Cover and lightly pack wound beds with Alginate - be sure to leave a wick for easy removal. cover with foam dressing. Change Daily. subacute CVA, L cerebellar - resume anticoagulation with apixaban + resume ASA paroxysmal AF - currently NSR - per Cardiology, d/c amiodarone continue noncompliance. continue metoprolol succinate+ apixaban. NSVT ischemic cardiomyopathy CAD - continue metoprolol succinate, consider starting ARB though compliance is an issue - continue furosemide - continue ASA, statin polysubstance abuse - on oxycodone for pain control, was using heroin daily for pain control, Addiction Medicine consulted VTE ppx - apixaban dispo - will likely need STR In my clinical judgment, the patient requires continued inpatient hospitalization for the following reasons: IV ABX Total time managing care of this patient today: 40 minutes. Quality Stroke Does the patient have a stroke diagnosis?: No Reason for No Anti-thrombotic by Day Two: Contraindicated VTE Prior VTE?: No VTE Risk Level:: Medical - moderate - high VTE Device Contraindication: Treatment Not Indicated VTE Drug Contraindication: N/A - Med Ordered
[2023-05-01 16:35] LABS: Vancomycin Trough 11.9 mcg/mL (10.0-20.0)
--- NOTE | 2023-05-01 17:05 | HE.PHANOTE ---
VANCO DOSE ADJUSTMENT BASED ON SCR OF 0.85 AND TROUGH OF 11.9 DOSE CONTINUED AT 1500 Q 24H. NEXT TROUGH 05/03 @ 1600. AUC PREDICTED 509
[2023-05-01 17:22] LABS: Levetiracetam Keppra <2.0 mcg/mL (6.0-46.0)
[2023-05-01] MEDS: vancomycin HCL 1,500 MG in 0.9 % Sodium Chloride 500 ML 333.33 MG IV (18:10)
[2023-05-01] MEDS: iohexoL 350 MG/ML 100 ML INFUS..BTL IV (22:36)
[2023-05-01] MEDS: Melatonin 3 MG TABLET 6 MG PO (23:10)
[2023-05-01] MEDS: Atorvastatin Calcium 40 MG TABLET PO (23:10)
[2023-05-01] MEDS: Apixaban 5 MG TABLET PO (23:12)
[2023-05-02] VITALS (10 sets, daily range): BP systolic 78–133; BP diastolic 52–70; PULSE 64–85; RESP 14–84; TEMP 36.6–37.2; O2SAT 92–96
[2023-05-02] MEDS: Piperacillin Sodium/Tazobactam 3.375 GM in 0.9 % Sodium Chloride 50 ML IV ×3 (05:19→23:21)
[2023-05-02] MEDS: Aspirin Enteric Coated 81 MG TABLET.DR PO (07:51)
[2023-05-02] MEDS: cloNIDine HCL 0.1 MG TABLET PO (07:51)
[2023-05-02] MEDS: levETIRAcetam 500 MG TABLET PO ×2 (07:51→21:51)
[2023-05-02] MEDS: Apixaban 5 MG TABLET PO ×2 (07:51→21:51)
[2023-05-02] MEDS: Furosemide 20 MG TABLET PO (07:52)
[2023-05-02] MEDS: HYDROmorphone HCl 1 MG/ML SYRINGE IVPUSH ×2 (07:52→19:15)
[2023-05-02] MEDS: Nicotine 21 MG PATCH.TD24 TRANSDERMA (07:52)
[2023-05-02] MEDS: Metoprolol Succinate ER 25 MG TAB.ER.24H PO (07:52)
[2023-05-02] MEDS: 0.9 % Sodium Chloride Flush 3 ML SYRINGE IVFLUSH (07:53)
--- NOTE | 2023-05-02 09:01 | MHC.CLN ---
F/U PT WITH INCREASED NUTRITION RISK R/T PRESSURE INJURIES PO 25% X 1 MEAL PT'S DIET RESUMED 2GM NA-APPROPRIATE PT RECEIVING ENSURE MAX BID TO PROMOTE WOUND HEALING SUPP PROVIDES 300KCALS, 60G PROTEIN MONITOR PO INTAKE AND ENCOURAGE SUPPLEMENT
[2023-05-02 09:22] LABS: Estimated Glomerular Filt Rate > 60
[2023-05-02 09:44] LABS: HBS Num1 0.05 mIU/mL (0-7.99); HBc Num1 0.06 S/CO (0.00-0.79); HBsAGNum1 0.38 S/CO (0.00-0.99); HIV AB/AG Nonreactive (Nonreactive); HIV Num 1 0.04 S/CO (0.00-0.99); Hepatitis B Core Antibody Nonreactive (Nonreactive); Hepatitis B Surface Antigen Negative (Negative); ~HepC Num1 0.09 S/CO (0.00-0.79); ~Hepatitis B Surface Antibody NONREACTIVE (Nonreactive); ~Hepatitis C Antibody Nonreactive (Nonreactive)
[2023-05-02] MEDS: oxyCODONE HCl Immed Release 5 MG TABLET 10 MG PO ×2 (10:53→16:00)
--- NOTE | 2023-05-02 10:55 | P.PNIM_ITS ---
Subjective Subjective Date of Service: 05/02/23 Interval History: pain controlled no fever Review of Systems Review of Systems: Yes all other systems are reviewed and are negative Physical Exam 2 Vital Signs: Vital Signs: Last Vital Signs Temp 98.8 F 05/02/23 07:07 Pulse 64 05/02/23 07:07 Resp 20 05/02/23 07:07 BP 128/70 05/02/23 07:07 Pulse Ox 94 05/02/23 07:07 O2 Del Method Room Air 05/02/23 07:07 O2 Flow Rate 2 04/28/23 07:46 Oxygen Flow Rate 2 04/27/23 13:32 BMI result Body Mass Index 21.4 Gen: in no acute distress HEENT: sclera anicteric, moist mucus membranes Neck: supple Lungs: clear to auscultation bilaterally Heart: regular rate and rhythm, no murmurs Abd: soft, non-tender, non-distended Ext: no edema, L AKA with fabian in place clean/dry/intact Skin: warm/well-perfused, stage 4 pressure injury over R hip, stage 3 pressure injury over L hip, unstageable R ischial pressure injury Neuro: alert and oriented x3, no focal findings Psych: appropriate affect Objective Data Active Medications Acetaminophen (Acetaminophen 325 Mg Tablet) 650 mg PO Q6H PRN PRN Reason: Pain, Mild (Pain Scale 1-3) Apixaban (Apixaban 5 Mg Tablet) 5 mg PO BID [facility] Last Admin: 05/02/23 07:51 Dose: 5 mg Documented By: CLIVE Aspirin (Aspirin Enteric Coated 81 Mg Tablet.) 81 mg PO DAILY [facility] Last Admin: 05/02/23 07:51 Dose: 81 mg Documented By: CLIVE Atorvastatin Calcium (Atorvastatin Calcium 40 Mg Tablet) 40 mg PO BEDTIME [facility] Last Admin: 05/01/23 23:10 Dose: 40 mg Documented By: PRASHANTH Comments: pt went to CT scan. Benzonatate (Benzonatate 100 Mg Capsule) 100 mg PO TID PRN PRN Reason: Cough Clonidine HCl (Clonidine Hcl 0.1 Mg Tablet) 0.1 mg PO BID [facility]; Protocol Last Admin: 05/02/23 07:51 Dose: 0.1 mg Documented By: CLIVE Docusate Sodium (Docusate Sodium 100 Mg Capsule) 100 mg PO DAILY PRN PRN Reason: Constipation Furosemide (Furosemide 20 Mg Tablet) 20 mg PO DAILY [facility]; Protocol Last Admin: 05/02/23 07:52 Dose: 20 mg Documented By: CLIVE Hydromorphone HCl (Hydromorphone Hcl 1 Mg/Ml Syringe) 1 mg IVPUSH Q4H PRN; Protocol PRN Reason: Pain, Severe (Pain Scale 7-10) Last Admin: 05/02/23 07:52 Dose: 1 mg Documented By: CLIVE Piperacillin Sod/Tazobactam (Sod 3.375 gm/ Sodium Chloride) 50 mls @ 100 mls/hr IV Q6H [facility] Last Infusion: 05/02/23 06:04 Dose: Infused Documented By: PRASHANTH Vancomycin HCl 1,500 mg/ (Sodium Chloride) 500 mls @ 333.333 mls/hr IV Q24H [facility] Last Infusion: 05/01/23 19:50 Dose: Infused Documented By: PRASHANTH Levetiracetam (Levetiracetam 500 Mg Tablet) 500 mg PO BID [facility] Last Admin: 05/02/23 07:51 Dose: 500 mg Documented By: CLIVE Lorazepam (Lorazepam 0.5 Mg Tablet) 0.5 mg PO Q6H PRN PRN Reason: Anxiety Last Admin: 05/01/23 09:34 Dose: 0.5 mg Documented By: CLIVE Melatonin (Melatonin 3 Mg Tablet) 6 mg PO BEDTIME PRN PRN Reason: Insomnia Last Admin: 05/01/23 23:10 Dose: 6 mg Documented By: PRASHANTH Metoprolol Succinate (Metoprolol Succinate Er 25 Mg Tab.Er.24h) 25 mg PO DAILY [facility]; Protocol Last Admin: 05/02/23 07:52 Dose: 25 mg Documented By: CLIVE Nicotine (Nicotine 21 Mg Patch.Td24) 21 mg TRANSDERMA DAILY [facility] Last Admin: 05/02/23 07:52 Dose: 21 mg Documented By: CLIVE Ondansetron HCl (Ondansetron Hcl 4 Mg/2 Ml Vial) 4 mg IVPUSH Q8H PRN PRN Reason: Nausea and Vomiting Oxycodone HCl (Oxycodone Hcl Immed Release 5 Mg Tablet) 10 mg PO Q4H PRN PRN Reason: Pain, Moderate(Pain Scale 4-6) Last Admin: 05/01/23 05:15 Dose: 10 mg Documented By: GODWIN Pharmacy Consult (Consult Rx Vancomycin Dosing) 1 each MISCELLANE DAILY PRN PRN Reason: Consult order Sodium Chloride (0.9 % Sodium Chloride Flush 3 Ml Syringe) 3 ml IVFLUSH QSHIFT [facility] Last Admin: 05/02/23 07:53 Dose: 3 ml Documented By: CLIVE Labs 05/01/23 07:02 05/02/23 08:43 Labs: Laboratory Results - last 24 hr 04/27/23 05/01/23 05/02/23 13:52 16:01 08:43 Hold Purple Top SEE NOTE Estim Creat Clear Calc 52.0 Estimated GFR > 60 Vancomycin Trough 11.9 Levetiracetam <2.0 L Hep Bs Antigen Negative Hep Bs Antibody NONREACTIVE Hep B Core Total Ab Nonreactive Hepatitis C Ab (EIA) Nonreactive HIV 1&2 Ab/P24 Ag 4thGn Nonreactive Impressions Hip CT 05/01/23 22:25 IMPRESSION: 1. Soft tissue wound laterally in the region of the greater trochanter with adjacent skin thickening and subcutaneous edema, consistent with acute cellulitis. No organized fluid collection or abscess formation. 2. Minimal adjacent cortical lucency within the lateral aspect of the greater trochanter without periosteal reaction or significant cortical erosion. Findings could represent sequela of early osteomyelitis in the appropriate clinical setting. 3. Chronic avascular necrosis within the femoral head without cortical collapse. 4. Mild right hip osteoarthritis. Assessment and Plan (1) Seizure: Status: Acute (2) AKA stump complication: Status: Acute Plan d6 68yo with paroxysmal AF not compliant with apixaban, CAD s/p CABG, PAD s/p AKA, hx prior CVAs [most recently in July 2022], seizure disorder, HTN, HLD, COPD not on home O2, polysubstance abuse presents to ED after reported seizure at home chronic nonhealing wounds with question of osteomyelitis subacute CVA on CT seizure due to noncompliance - loaded with levetiracetam, continue outpt dosing L AKA wound with protruding bone - Gen Surg consulted, revised AKA stump on 04/30/23, following postoperatively sepsis due to cellulitis and likely osteomyelitis stage 4 pressure injury over R hip, stage 3 pressure injury over L hip, unstageable R ischial pressure injury - currently on d6 of vanco + pip-shameka; not bacteremic - suspect osteomyelitis; will need 6 wk IV ABX; place PICC and seek STR placement - wound care recommendations: Left Residual Leg - Cleanse and irrigate with NS, apply single layer Cuticerin Impregnated Mesh (Available in Storeroom) cover with Dry gauze and ABD Pad followed by wrap. Change daily until seen by surgical provider.,, Bilateral Hip / Trochanter and Right Ischium / buttocks - Cleanse and irrigate with NS, Pat dry. Apply barrier wip to periwound. Cover and lightly pack wound beds with Alginate - be sure to leave a wick for easy removal. cover with foam dressing. Change Daily. subacute CVA, L cerebellar - resumed anticoagulation with apixaban + resumedASA paroxysmal AF - currently NSR - per Cardiology, d/c'ed amiodarone continue noncompliance. continue metoprolol succinate+ apixaban. NSVT ischemic cardiomyopathy CAD - continue metoprolol succinate, consider starting ARB though compliance is an issue - continue furosemide - continue ASA, statin polysubstance abuse - on oxycodone for pain control, was using heroin daily for pain control, Addiction Medicine consulted but pt did not express interested in methadone VTE ppx - apixaban dispo - will need STR In my clinical judgment, the patient requires continued inpatient hospitalization for the following reasons: IV ABX Total time managing care of this patient today: 40 minutes. Quality Stroke Does the patient have a stroke diagnosis?: No Reason for No Anti-thrombotic by Day Two: Contraindicated VTE Prior VTE?: No VTE Risk Level:: Medical - moderate - high VTE Device Contraindication: Treatment Not Indicated VTE Drug Contraindication: N/A - Med Ordered
--- NOTE | 2023-05-02 11:40 | PC.NURSE ---
Pt BP 78/52. Pt appearing pale and tired.HR 80s. Pt awake and alert, no reports of dizziness or lightheadedness. MD notified and at bedside. Per Dr Danielle, administer total fluids of 1488 mL at 999 ml/hr. Fluids being administered at this time.
--- NOTE | 2023-05-02 11:41 | PM.EVENT ---
Event Note Date of Service: 05/02/23 Event Note: Attempted to send for patient to place PICC for iv antibiotics. Per RN, patient is hypotensive and can not come to IR department at this time. Jacques PAN Interventional Radiology Time Spent With Patient Time: Total time managing care of this patient today ____ minutes.
[2023-05-02 12:07] LABS: Lactic Acid 3.9 mmol/L (0.5-2.0)
[2023-05-02 13:43] LABS: Reflex Lactate? Lactic Acid Added
--- NOTE | 2023-05-02 14:11 | P.PNGS_ITS ---
Subjective Subjective Date of Service: 05/02/23 Interval history: Home No new complaints Some pain on revision site Asking to go home Physical Exam 2 Vital Signs: Vital Signs: Last Vital Signs Temp 98.8 F 05/02/23 10:52 Pulse 80 05/02/23 14:02 Resp 84 H 05/02/23 13:21 BP 98/56 L 05/02/23 14:02 Pulse Ox 96 05/02/23 10:52 O2 Del Method Room Air 05/02/23 10:52 O2 Flow Rate 2 04/28/23 07:46 Oxygen Flow Rate 2 04/27/23 13:32 BMI result Body Mass Index 21.4 Const: Other: Looks well General: comfortable and no acute distress Resp: Effort & Inspection: normal respiratory effort Extrem: Other: Incision clean and dry, sutures intact Objective Data Active Medications Acetaminophen (Acetaminophen 325 Mg Tablet) 650 mg PO Q6H PRN PRN Reason: Pain, Mild (Pain Scale 1-3) Apixaban (Apixaban 5 Mg Tablet) 5 mg PO BID [facility] Last Admin: 05/02/23 07:51 Dose: 5 mg Documented By: CLIVE Aspirin (Aspirin Enteric Coated 81 Mg Tablet.) 81 mg PO DAILY [facility] Last Admin: 05/02/23 07:51 Dose: 81 mg Documented By: CLIVE Atorvastatin Calcium (Atorvastatin Calcium 40 Mg Tablet) 40 mg PO BEDTIME [facility] Last Admin: 05/01/23 23:10 Dose: 40 mg Documented By: PRASHANTH Comments: pt went to CT scan. Benzonatate (Benzonatate 100 Mg Capsule) 100 mg PO TID PRN PRN Reason: Cough Clonidine HCl (Clonidine Hcl 0.1 Mg Tablet) 0.1 mg PO BID [facility]; Protocol Last Admin: 05/02/23 07:51 Dose: 0.1 mg Documented By: CLIVE Docusate Sodium (Docusate Sodium 100 Mg Capsule) 100 mg PO DAILY PRN PRN Reason: Constipation Furosemide (Furosemide 20 Mg Tablet) 20 mg PO DAILY [facility]; Protocol Last Admin: 05/02/23 07:52 Dose: 20 mg Documented By: CLIVE Hydromorphone HCl (Hydromorphone Hcl 1 Mg/Ml Syringe) 1 mg IVPUSH Q4H PRN; Protocol PRN Reason: Pain, Severe (Pain Scale 7-10) Last Admin: 05/02/23 07:52 Dose: 1 mg Documented By: CLIVE Piperacillin Sod/Tazobactam (Sod 3.375 gm/ Sodium Chloride) 50 mls @ 100 mls/hr IV Q6H [facility] Last Infusion: 05/02/23 06:04 Dose: Infused Documented By: PRASHANTH Vancomycin HCl 1,500 mg/ (Sodium Chloride) 500 mls @ 333.333 mls/hr IV Q24H [facility] Last Infusion: 05/01/23 19:50 Dose: Infused Documented By: PRASHANTH Levetiracetam (Levetiracetam 500 Mg Tablet) 500 mg PO BID [facility] Last Admin: 05/02/23 07:51 Dose: 500 mg Documented By: CLIVE Lorazepam (Lorazepam 0.5 Mg Tablet) 0.5 mg PO Q6H PRN PRN Reason: Anxiety Last Admin: 05/01/23 09:34 Dose: 0.5 mg Documented By: CLIVE Melatonin (Melatonin 3 Mg Tablet) 6 mg PO BEDTIME PRN PRN Reason: Insomnia Last Admin: 05/01/23 23:10 Dose: 6 mg Documented By: PRASHANTH Metoprolol Succinate (Metoprolol Succinate Er 25 Mg Tab.Er.24h) 25 mg PO DAILY [facility]; Protocol Last Admin: 05/02/23 07:52 Dose: 25 mg Documented By: CLIVE Nicotine (Nicotine 21 Mg Patch.Td24) 21 mg TRANSDERMA DAILY [facility] Last Admin: 05/02/23 07:52 Dose: 21 mg Documented By: CLIVE Ondansetron HCl (Ondansetron Hcl 4 Mg/2 Ml Vial) 4 mg IVPUSH Q8H PRN PRN Reason: Nausea and Vomiting Oxycodone HCl (Oxycodone Hcl Immed Release 5 Mg Tablet) 10 mg PO Q4H PRN PRN Reason: Pain, Moderate(Pain Scale 4-6) Last Admin: 05/02/23 10:53 Dose: 10 mg Documented By: CLIVE Pharmacy Consult (Consult Rx Vancomycin Dosing) 1 each MISCELLANE DAILY PRN PRN Reason: Consult order Sodium Chloride (0.9 % Sodium Chloride Flush 3 Ml Syringe) 3 ml IVFLUSH QSHIFT [facility] Last Admin: 05/02/23 07:53 Dose: 3 ml Documented By: CLIVE Labs 05/01/23 07:02 05/02/23 08:43 Labs: Laboratory Results - last 24 hr 04/27/23 05/01/23 05/02/23 13:52 16:01 08:43 Hold Purple Top SEE NOTE Estim Creat Clear Calc 52.0 Estimated GFR > 60 Lactic Acid Vancomycin Trough 11.9 Levetiracetam <2.0 L Hep Bs Antigen Negative Hep Bs Antibody NONREACTIVE Hep B Core Total Ab Nonreactive Hepatitis C Ab (EIA) Nonreactive HIV 1&2 Ab/P24 Ag 4thGn Nonreactive 05/02/23 11:30 Hold Purple Top Estim Creat Clear Calc Estimated GFR Lactic Acid 3.9 H* Vancomycin Trough Levetiracetam Hep Bs Antigen Hep Bs Antibody Hep B Core Total Ab Hepatitis C Ab (EIA) HIV 1&2 Ab/P24 Ag 4thGn Procedures Date of Service Date of Service: 05/02/23 Progress Note: A&P Assessment and plan (1) AKA stump complication: Status: Acute Assessment and Plan: Status post revision stump Incision looks clean good wound care Avoid pressure on stump As per hospitalist service - he will need prolonged IV antibiotic treatment for osteomyelitis of the hip bones Time Spent With Patient Time: Total time managing care of this patient today ____ minutes. Quality Stroke Does the patient have a stroke diagnosis?: No Reason for No Anti-thrombotic by Day Two: Contraindicated VTE Prior VTE?: No VTE Risk Level:: Medical - moderate - high VTE Device Contraindication: Treatment Not Indicated VTE Drug Contraindication: N/A - Med Ordered
[2023-05-02 14:56] LABS: ~Lactic Acid-LAB USE ONLY 1.8 mmol/L (0.5-2.0)
--- NOTE | 2023-05-02 15:08 | MHC.CM.PN ---
CM was made aware by provider that pt will require IV ABX for 6 weeks, and will need confirmed STR bed before this can begin. Referrals previously made. CM spoke to pt. he only has Medicare for insurance, no secondary, referral submitted for [facility] financial office to assist with [facility]. SNF referrals to be updated.
[2023-05-02] MEDS: vancomycin HCL 1,500 MG in 0.9 % Sodium Chloride 500 ML 333.33 MG IV (19:16)
[2023-05-02] MEDS: Atorvastatin Calcium 40 MG TABLET PO (21:51)
[2023-05-02] MEDS: Melatonin 3 MG TABLET 6 MG PO (21:51)
[2023-05-03 04:00] VITALS: BP 116/56; PULSE 55; RESP 14; TEMP 36.7; O2SAT 92
[2023-05-03] MEDS: Piperacillin Sodium/Tazobactam 3.375 GM in 0.9 % Sodium Chloride 50 ML IV ×4 (05:27→22:25)
[2023-05-03 06:15] LABS: Hemoglobin 11.6 g/dl (14.0-18.0); Mean Corpuscular HGB Conc 32.2 g/dl (31.0-36.0); Mean Corpuscular Hemoglobin 26.2 pg (27.0-33.0); Mean Corpuscular Volume 81.3 fL (80.0-98.0); Mean Platelet Volume 9.4 fL (9.4-12.4); Platelet Count 179 X10*3/uL (160-400); Red Blood Count 4.43 X10*6/uL (4.60-5.80); Red Cell Distribution Width 18.6 % (11.0-16.0); White Blood Count 13.8 X10*3/uL (4.8-10.8)
[2023-05-03 06:36] LABS: Anion Gap 13 (12-20); Blood Urea Nitrogen 16 mg/dL (9-16); C Reactive Protein 5.16 mg/dL (< or = 0.50); Calcium 8.6 mg/dL (8.4-10.2); Carbon Dioxide 18 mmol/L (22-29); Chloride 115 mmol/L (96-108); Creatinine Clr Calc Pharmacy 60.3; Estimated Glomerular Filt Rate > 60; Glucose Random 107 mg/dL (60-115); Sodium 143 mmol/L (135-145)
[2023-05-03 07:29] VITALS: BP 127/60; PULSE 63; RESP 18; TEMP 36.9; O2SAT 94
[2023-05-03 07:54] LABS: Magnesium 2.3 mg/dL (1.6-2.6)
[2023-05-03 08:06] LABS: Erythrocyte Sedimentation Rate 36 MM/HR (0-15)
[2023-05-03] MEDS: levETIRAcetam 500 MG TABLET PO ×2 (08:38→20:17)
[2023-05-03] MEDS: Apixaban 5 MG TABLET PO ×2 (08:39→20:17)
[2023-05-03] MEDS: Potassium Chloride ER 20 MEQ TAB.ER.PRT 40 MEQ PO (08:39)
[2023-05-03] MEDS: Docusate Sodium 100 MG CAPSULE PO (08:39)
[2023-05-03] MEDS: oxyCODONE HCl Immed Release 5 MG TABLET 10 MG PO (08:39)
[2023-05-03] MEDS: Aspirin Enteric Coated 81 MG TABLET.DR PO (08:39)
[2023-05-03] MEDS: Acetaminophen 325 MG TABLET 650 MG PO ×2 (08:39→20:17)
[2023-05-03] MEDS: Nicotine 21 MG PATCH.TD24 TRANSDERMA (08:40)
[2023-05-03] MEDS: 0.9 % Sodium Chloride Flush 3 ML SYRINGE IVFLUSH ×4 (08:40→22:37)
--- NOTE | 2023-05-03 09:52 | PM.EVENT ---
Event Note Date of Service: 05/04/23 Event Note: no events reported AKA revision clean, not infected fabian intact I have changes dressings thick gauze applied to protect stump patient to require IV antibiotic treatment in view of suggestion of osteomyelitis on hip from ulcers Time Spent With Patient Time: Total time managing care of this patient today ____ minutes.
--- NOTE | 2023-05-03 10:12 | HO.PM.IMPN ---
Subjective Subjective Date of Service: 05/03/23 Interval History: pain controlled no fever hypotensive yesterday with lactic acidosis; resolved with IV fluids Review of Systems Review of Systems: Yes all other systems are reviewed and are negative Physical Exam Vital Signs: Vital Signs: Last Vital Signs Temp 98.5 F 05/03/23 07:29 Pulse 63 05/03/23 07:29 Resp 18 05/03/23 07:29 BP 127/60 05/03/23 07:29 Pulse Ox 94 05/03/23 07:29 O2 Del Method Room Air 05/03/23 07:29 O2 Flow Rate 2 04/28/23 07:46 Oxygen Flow Rate 2 04/27/23 13:32 BMI result Body Mass Index 21.4 Gen: in no acute distress HEENT: sclera anicteric, moist mucus membranes Neck: supple Lungs: clear to auscultation bilaterally Heart: regular rate and rhythm, no murmurs Abd: soft, non-tender, non-distended Ext: no edema, L AKA with fabian in place clean/dry/intact Skin: warm/well-perfused, stage 4 pressure injury over R hip, stage 3 pressure injury over L hip, unstageable R ischial pressure injury Neuro: alert and oriented x3, no focal findings Psych: appropriate affect Objective Data Active Medications Acetaminophen (Acetaminophen 325 Mg Tablet) 650 mg PO Q6H PRN PRN Reason: Pain, Mild (Pain Scale 1-3) Last Admin: 05/03/23 08:39 Dose: 650 mg Documented By: SOFY Apixaban (Apixaban 5 Mg Tablet) 5 mg PO BID [facility] Last Admin: 05/03/23 08:39 Dose: 5 mg Documented By: SOFY Aspirin (Aspirin Enteric Coated 81 Mg Tablet.) 81 mg PO DAILY [facility] Last Admin: 05/03/23 08:39 Dose: 81 mg Documented By: SOFY Atorvastatin Calcium (Atorvastatin Calcium 40 Mg Tablet) 40 mg PO BEDTIME [facility] Last Admin: 05/02/23 21:51 Dose: 40 mg Documented By: OVIDIO Benzonatate (Benzonatate 100 Mg Capsule) 100 mg PO TID PRN PRN Reason: Cough Clonidine HCl (Clonidine Hcl 0.1 Mg Tablet) 0.1 mg PO BID [facility]; Protocol Last Admin: 05/02/23 07:51 Dose: 0.1 mg Documented By: CLIVE Docusate Sodium (Docusate Sodium 100 Mg Capsule) 100 mg PO DAILY PRN PRN Reason: Constipation Last Admin: 05/03/23 08:39 Dose: 100 mg Documented By: SOFY Furosemide (Furosemide 20 Mg Tablet) 20 mg PO DAILY [facility]; Protocol Last Admin: 05/02/23 07:52 Dose: 20 mg Documented By: CLIVE Hydromorphone HCl (Hydromorphone Hcl 1 Mg/Ml Syringe) 1 mg IVPUSH Q4H PRN; Protocol PRN Reason: Pain, Severe (Pain Scale 7-10) Last Admin: 05/02/23 19:15 Dose: 1 mg Documented By: OVIDIO Piperacillin Sod/Tazobactam (Sod 3.375 gm/ Sodium Chloride) 50 mls @ 100 mls/hr IV Q6H [facility] Last Admin: 05/03/23 09:01 Dose: 100 mls/hr Documented By: SOFY Vancomycin HCl 1,500 mg/ (Sodium Chloride) 500 mls @ 333.333 mls/hr IV Q24H [facility] Last Infusion: 05/02/23 20:47 Dose: Infused Documented By: OVIDIO Levetiracetam (Levetiracetam 500 Mg Tablet) 500 mg PO BID [facility] Last Admin: 05/03/23 08:38 Dose: 500 mg Documented By: SOFY Melatonin (Melatonin 3 Mg Tablet) 6 mg PO BEDTIME PRN PRN Reason: Insomnia Last Admin: 05/02/23 21:51 Dose: 6 mg Documented By: OVIDIO Metoprolol Succinate (Metoprolol Succinate Er 25 Mg Tab.Er.24h) 25 mg PO DAILY [facility]; Protocol Last Admin: 05/02/23 07:52 Dose: 25 mg Documented By: CLIVE Nicotine (Nicotine 21 Mg Patch.Td24) 21 mg TRANSDERMA DAILY [facility] Last Admin: 05/03/23 08:40 Dose: 21 mg Documented By: SOFY Ondansetron HCl (Ondansetron Hcl 4 Mg/2 Ml Vial) 4 mg IVPUSH Q8H PRN PRN Reason: Nausea and Vomiting Oxycodone HCl (Oxycodone Hcl Immed Release 5 Mg Tablet) 10 mg PO Q4H PRN PRN Reason: Pain, Moderate(Pain Scale 4-6) Last Admin: 05/03/23 08:39 Dose: 10 mg Documented By: SOFY Pharmacy Consult (Consult Rx Vancomycin Dosing) 1 each MISCELLANE DAILY PRN PRN Reason: Consult order Sodium Chloride (0.9 % Sodium Chloride Flush 3 Ml Syringe) 3 ml IVFLUSH QSHIFT [facility] Last Admin: 05/03/23 08:40 Dose: 3 ml Documented By: SOFY Labs 05/03/23 05:51 05/03/23 05:51 Labs: Laboratory Results - last 24 hr 05/02/23 05/02/23 05/02/23 08:43 11:30 14:35 MCV MCH MCHC RDW Plt Count MPV Absolute Nucleated RBC Nucleated RBC % (auto) ESR Anion Gap Estim Creat Clear Calc Estimated GFR Random Glucose Lactic Acid 3.9 H* Lactic Acid F/U @ 2Hr 1.8 Calcium Magnesium C-Reactive Protein Hep Bs Antigen Negative Hep Bs Antibody NONREACTIVE Hep B Core Total Ab Nonreactive Hepatitis C Ab (EIA) Nonreactive HIV 1&2 Ab/P24 Ag 4thGn Nonreactive 05/03/23 05:51 MCV 81.3 MCH 26.2 L MCHC 32.2 RDW 18.6 H Plt Count 179 MPV 9.4 Absolute Nucleated RBC 0.000 Nucleated RBC % (auto) 0.0 ESR 36 H Anion Gap 13 Estim Creat Clear Calc 60.3 Estimated GFR > 60 Random Glucose 107 Lactic Acid Lactic Acid F/U @ 2Hr Calcium 8.6 Magnesium 2.3 C-Reactive Protein 5.16 H Hep Bs Antigen Hep Bs Antibody Hep B Core Total Ab Hepatitis C Ab (EIA) HIV 1&2 Ab/P24 Ag 4thGn Microbiology Microbiology Results: Microbiology 04/27/23 17:05 Blood Culture - Final Blood - Venous No growth after 5 days. 04/27/23 16:30 Blood Culture - Final Blood - Venous No growth after 5 days. Assessment and Plan (1) Seizure: Status: Acute (2) AKA stump complication: Status: Acute Plan d7 68yo with paroxysmal AF not compliant with apixaban, CAD s/p CABG, PAD s/p AKA, hx prior CVAs [most recently in July 2022], seizure disorder, HTN, HLD, COPD not on home O2, polysubstance abuse presents to ED after reported seizure at home chronic nonhealing wounds with question of osteomyelitis subacute CVA on CT hypotension on 05/02/23 - fluid-responsive; lactate normalized; held metoprolol succinate + clonidine + furosemide sepsis due to cellulitis and likely osteomyelitis stage 4 pressure injury over R hip, stage 3 pressure injury over L hip, unstageable R ischial pressure injury - currently on d7 of vanco + pip-shameka; not bacteremic - suspect osteomyelitis; will need 6 wk IV ABX; place PICC and seek STR placement. Per IR, given polysubstance abuse, will not place PICC until STR placement is ensured - wound care recommendations: Left Residual Leg - Cleanse and irrigate with NS, apply single layer Cuticerin Impregnated Mesh (Available in Storeroom) cover with Dry gauze and ABD Pad followed by wrap. Change daily until seen by surgical provider.,, Bilateral Hip / Trochanter and Right Ischium / buttocks - Cleanse and irrigate with NS, Pat dry. Apply barrier wip to periwound. Cover and lightly pack wound beds with Alginate - be sure to leave a wick for easy removal. cover with foam dressing. Change Daily. seizure due to noncompliance - loaded with levetiracetam, continue outpt dosing L AKA wound with protruding bone - Gen Surg consulted, revised AKA stump on 04/30/23, following postoperatively subacute CVA, L cerebellar - resumed anticoagulation with apixaban + resumed ASA paroxysmal AF - currently NSR - per Cardiology, d/c'ed amiodarone continue noncompliance. continue apixaban. metoprolol succinate on hold due to hypotension on 05/02/23 NSVT ischemic cardiomyopathy CAD - metoprolol succinate and furosmide on hold due to hypotension - continue ASA, statin polysubstance abuse - on oxycodone for pain control, was using heroin daily for pain control, Addiction Medicine consulted but pt did not express interest in methadone VTE ppx - apixaban dispo - will need STR In my clinical judgment, the patient requires continued inpatient hospitalization for the following reasons: IV ABX then placement with PICC Total time managing care of this patient today: 35 minutes. Quality Stroke Does the patient have a stroke diagnosis?: No Reason for No Anti-thrombotic by Day Two: Contraindicated VTE Prior VTE?: No VTE Risk Level:: Medical - moderate - high VTE Device Contraindication: Treatment Not Indicated VTE Drug Contraindication: N/A - Med Ordered
[2023-05-03 11:10] VITALS: BP 119/57; PULSE 72; RESP 18; TEMP 37.1; O2SAT 95
[2023-05-03 15:32] VITALS: BP 116/73; PULSE 66; RESP 12; TEMP 37.1; O2SAT 99
[2023-05-03 17:42] LABS: Vancomycin Trough 10.2 mcg/mL (10.0-20.0)
--- NOTE | 2023-05-03 18:00 | HE.PHANOTE ---
VANCOMYCIN DOSING ADDENDUM VANCOMYCIN TROUGH 10.2, CREATININE SLOWLY DECREASING. INCREASED DOSE TO 1750 MG Q24H FOR PREDICTED AUC OF 535 DUE TO POSSIBLE OSTEO. NEXT TROUGH ON 05/04/23 @1700.
[2023-05-03] MEDS: vancomycin HCL 1,000 MG, vancomycin HCL 750 MG in 0.9 % Sodium Chloride 500 ML 267.5 MG IV (18:33)
[2023-05-03 19:40] VITALS: BP 121/72; PULSE 70; RESP 16; TEMP 37.7; O2SAT 98
[2023-05-03] MEDS: Atorvastatin Calcium 40 MG TABLET PO (20:17)
[2023-05-03] MEDS: Melatonin 3 MG TABLET 6 MG PO (20:17)
[2023-05-03 22:04] VITALS: TEMP 37.1
[2023-05-04] VITALS: BP 135/84; PULSE 94; RESP 20; TEMP 36.2; O2SAT 98
[2023-05-04 03:21] VITALS: BP 131/79; PULSE 81; RESP 20; TEMP 36.1; O2SAT 96
[2023-05-04] MEDS: Piperacillin Sodium/Tazobactam 3.375 GM in 0.9 % Sodium Chloride 50 ML IV ×4 (04:06→21:44)
[2023-05-04 06:40] LABS: Creatinine Clr Calc Pharmacy 61.1; Estimated Glomerular Filt Rate > 60
[2023-05-04 08:00] VITALS: BP 144/82; PULSE 96; RESP 18; TEMP 37.1; O2SAT 99
[2023-05-04 08:07] LABS: Anion Gap 12 (12-20)
[2023-05-04 08:09] LABS: Blood Urea Nitrogen 12 mg/dL (9-16); Calcium 8.9 mg/dL (8.4-10.2); Carbon Dioxide 18 mmol/L (22-29); Chloride 117 mmol/L (96-108); Glucose Random 100 mg/dL (60-115); Potassium 3.4 mmol/L (3.3-5.1); Sodium 144 mmol/L (135-145)
--- NOTE | 2023-05-04 09:15 | P.PNIM_ITS ---
Subjective Subjective Date of Service: 05/04/23 Interval History: pain controlled Physical Exam 2 Vital Signs: Vital Signs: Last Vital Signs Temp 98.8 F 05/04/23 08:00 Pulse 96 05/04/23 08:00 Resp 18 05/04/23 08:00 BP 144/82 H 05/04/23 08:00 Pulse Ox 99 05/04/23 08:00 O2 Del Method Room Air 05/04/23 08:00 O2 Flow Rate 2 04/28/23 07:46 Oxygen Flow Rate 2 04/27/23 13:32 BMI result Body Mass Index 21.4 Gen: in no acute distress HEENT: sclera anicteric, moist mucus membranes Neck: supple Lungs: clear to auscultation bilaterally Heart: regular rate and rhythm, no murmurs Abd: soft, non-tender, non-distended Ext: no edema, L AKA with fabian in place clean/dry/intact Skin: warm/well-perfused, stage 4 pressure injury over R hip, stage 3 pressure injury over L hip, unstageable R ischial pressure injury Neuro: alert and oriented x3, no focal findings Psych: appropriate affect Objective Data Active Medications Acetaminophen (Acetaminophen 325 Mg Tablet) 650 mg PO Q6H PRN PRN Reason: Pain, Mild (Pain Scale 1-3) Last Admin: 05/03/23 20:17 Dose: 650 mg Documented By: OVIDIO Apixaban (Apixaban 5 Mg Tablet) 5 mg PO BID COUNT INCLUDES [facility] Last Admin: 05/03/23 20:17 Dose: 5 mg Documented By: OVIDIO Aspirin (Aspirin Enteric Coated 81 Mg Tablet.) 81 mg PO DAILY COUNT INCLUDES THE [facility] Last Admin: 05/03/23 08:39 Dose: 81 mg Documented By: SOFY Atorvastatin Calcium (Atorvastatin Calcium 40 Mg Tablet) 40 mg PO BEDTIME COUNT INCLUDES THE [facility] Last Admin: 05/03/23 20:17 Dose: 40 mg Documented By: OVIDIO Benzonatate (Benzonatate 100 Mg Capsule) 100 mg PO TID PRN PRN Reason: Cough Clonidine HCl (Clonidine Hcl 0.1 Mg Tablet) 0.1 mg PO BID COUNT INCLUDES THE [facility]; Protocol Last Admin: 05/02/23 07:51 Dose: 0.1 mg Documented By: CLIVE Docusate Sodium (Docusate Sodium 100 Mg Capsule) 100 mg PO DAILY PRN PRN Reason: Constipation Last Admin: 05/03/23 08:39 Dose: 100 mg Documented By: SOFY Furosemide (Furosemide 20 Mg Tablet) 20 mg PO DAILY COUNT INCLUDES THE [facility]; Protocol Last Admin: 05/02/23 07:52 Dose: 20 mg Documented By: CLIVE Piperacillin Sod/Tazobactam (Sod 3.375 gm/ Sodium Chloride) 50 mls @ 100 mls/hr IV Q6H COUNT INCLUDES THE [facility] Last Infusion: 05/04/23 04:36 Dose: Infused Documented By: OVIDIO Vancomycin HCl 1,000 mg/Vancomycin HCl 750 mg/ Sodium Chloride 535 mls @ 267.5 mls/hr IV Q24H COUNT INCLUDES THE [facility] Last Infusion: 05/03/23 20:33 Dose: Infused Documented By: OVIDIO Levetiracetam (Levetiracetam 500 Mg Tablet) 500 mg PO BID COUNT INCLUDES THE [facility] Last Admin: 05/03/23 20:17 Dose: 500 mg Documented By: OVIDIO Melatonin (Melatonin 3 Mg Tablet) 6 mg PO BEDTIME PRN PRN Reason: Insomnia Last Admin: 05/03/23 20:17 Dose: 6 mg Documented By: OVIDIO Metoprolol Succinate (Metoprolol Succinate Er 25 Mg Tab.Er.24h) 25 mg PO DAILY COUNT INCLUDES THE [facility]; Protocol Last Admin: 05/02/23 07:52 Dose: 25 mg Documented By: CLIVE Nicotine (Nicotine 21 Mg Patch.Td24) 21 mg TRANSDERMA DAILY COUNT INCLUDES THE [facility] Last Admin: 05/03/23 08:40 Dose: 21 mg Documented By: SOFY Ondansetron HCl (Ondansetron Hcl 4 Mg/2 Ml Vial) 4 mg IVPUSH Q8H PRN PRN Reason: Nausea and Vomiting Pharmacy Consult (Consult Rx Vancomycin Dosing) 1 each MISCELLANE DAILY PRN PRN Reason: Consult order Sodium Chloride (0.9 % Sodium Chloride Flush 3 Ml Syringe) 3 ml IVFLUSH QSHIFT COUNT INCLUDES THE [facility] Last Admin: 05/03/23 22:37 Dose: 3 ml Documented By: OVIDIO Labs 05/03/23 05:51 05/04/23 06:10 Labs: Laboratory Results - last 24 hr 05/03/23 05/04/23 17:13 06:10 Hold Purple Top SEE NOTE Anion Gap 12 Estim Creat Clear Calc 61.1 Estimated GFR > 60 Random Glucose 100 Calcium 8.9 Vancomycin Trough 10.2 Assessment and Plan (1) Seizure: Status: Acute (2) AKA stump complication: Status: Acute Plan d8 68yo with paroxysmal AF not compliant with apixaban, CAD s/p CABG, PAD s/p AKA, hx prior CVAs [most recently in July 2022], seizure disorder, HTN, HLD, COPD not on home O2, polysubstance abuse presents to ED after reported seizure at home chronic nonhealing wounds with question of osteomyelitis subacute CVA on CT hypotension on 05/02/23 - fluid-responsive; lactate normalized; held metoprolol succinate + clonidine + furosemide; resume if BP allows sepsis due to cellulitis and likely osteomyelitis stage 4 pressure injury over R hip, stage 3 pressure injury over L hip, unstageable R ischial pressure injury - currently on d8 of vanco + pip-shameka; not bacteremic - suspect osteomyelitis; will need 6 wk IV ABX; place PICC and seek STR placement. Per IR, given polysubstance abuse, will not place PICC until STR placement is ensured - wound care recommendations: Left Residual Leg - Cleanse and irrigate with NS, apply single layer Cuticerin Impregnated Mesh (Available in Storeroom) cover with Dry gauze and ABD Pad followed by wrap. Change daily until seen by surgical provider.,, Bilateral Hip / Trochanter and Right Ischium / buttocks - Cleanse and irrigate with NS, Pat dry. Apply barrier wip to periwound. Cover and lightly pack wound beds with Alginate - be sure to leave a wick for easy removal. cover with foam dressing. Change Daily. seizure due to noncompliance - loaded with levetiracetam, continue outpt dosing L AKA wound with protruding bone - Gen Surg consulted, revised AKA stump on 04/30/23, following postoperatively subacute CVA, L cerebellar - resumed anticoagulation with apixaban + resumed ASA paroxysmal AF - currently NSR - per Cardiology, d/c'ed amiodarone continue noncompliance. continue apixaban. metoprolol succinate on hold due to hypotension on 05/02/23 NSVT ischemic cardiomyopathy CAD - metoprolol succinate and furosmide on hold due to hypotension - continue ASA, statin hypoK - repleted polysubstance abuse - on oxycodone for pain control, was using heroin daily for pain control, Addiction Medicine consulted but pt did not express interest in methadone VTE ppx - apixaban dispo - will need STR In my clinical judgment, the patient requires continued inpatient hospitalization for the following reasons: IV ABX then placement with PICC Total time managing care of this patient today: 35 minutes. Quality Stroke Does the patient have a stroke diagnosis?: No Reason for No Anti-thrombotic by Day Two: Contraindicated VTE Prior VTE?: No VTE Risk Level:: Medical - moderate - high VTE Device Contraindication: Treatment Not Indicated VTE Drug Contraindication: N/A - Med Ordered
[2023-05-04] MEDS: Nicotine 21 MG PATCH.TD24 TRANSDERMA (09:17)
[2023-05-04] MEDS: levETIRAcetam 500 MG TABLET PO ×2 (09:18→20:25)
[2023-05-04] MEDS: Aspirin Enteric Coated 81 MG TABLET.DR PO (09:18)
[2023-05-04] MEDS: Apixaban 5 MG TABLET PO ×2 (09:18→20:25)
[2023-05-04] MEDS: 0.9 % Sodium Chloride Flush 3 ML SYRINGE IVFLUSH ×3 (09:20→20:26)
[2023-05-04] MEDS: oxyCODONE HCl Immed Release 5 MG TABLET 10 MG PO ×2 (10:25→20:25)
[2023-05-04 11:18] VITALS: BP 146/78; PULSE 85; RESP 18; TEMP 37.2; O2SAT 95
[2023-05-04 15:24] VITALS: BP 132/72; PULSE 84; RESP 15; TEMP 36.1; O2SAT 98
--- NOTE | 2023-05-04 15:59 | PM.EVENT ---
Event Note Date of Service: 05/04/23 Event Note: no new complaints some pain on surgical site AKA revision clean, dry, no obvious infections, fabian in place dressings changed daily wound care- thick dry dressings Time Spent With Patient Time: Total time managing care of this patient today ____ minutes.
[2023-05-04 17:28] LABS: Vancomycin Trough 12.7 mcg/mL (10.0-20.0)
--- NOTE | 2023-05-04 18:22 | HE.PHANOTE ---
RE FABIOO DOSE CHANGE DOSE TO 750 Q12 TO INCREASE EXPECTED TROUGH. RECHECK LEVEL 05/05 @1700
[2023-05-04] MEDS: vancomycin HCL 750 MG in 0.9 % Sodium Chloride 250 ML 265 MG IV (18:35)
[2023-05-04 19:55] VITALS: BP 113/59; PULSE 143; RESP 20; TEMP 36.9; O2SAT 96
[2023-05-04] MEDS: Atorvastatin Calcium 40 MG TABLET PO (20:25)
[2023-05-04] MEDS: Acetaminophen 325 MG TABLET 650 MG PO (21:46)
[2023-05-05] VITALS (9 sets, daily range): BP systolic 88–170; BP diastolic 48–86; PULSE 70–102; RESP 14–20; TEMP 35.8–37.1; O2SAT 95–99
[2023-05-05] MEDS: Piperacillin Sodium/Tazobactam 3.375 GM in 0.9 % Sodium Chloride 50 ML IV ×4 (04:06→22:34)
[2023-05-05] MEDS: oxyCODONE HCl Immed Release 5 MG TABLET 10 MG PO ×3 (05:33→16:07)
[2023-05-05 07:13] LABS: Creatinine Clr Calc Pharmacy 56.8; Estimated Glomerular Filt Rate > 60
[2023-05-05] MEDS: Apixaban 5 MG TABLET PO ×2 (08:46→20:37)
[2023-05-05] MEDS: levETIRAcetam 500 MG TABLET PO ×2 (08:46→20:37)
[2023-05-05] MEDS: Furosemide 20 MG TABLET PO (08:46)
[2023-05-05] MEDS: Metoprolol Succinate ER 25 MG TAB.ER.24H PO (08:46)
[2023-05-05] MEDS: Aspirin Enteric Coated 81 MG TABLET.DR PO (08:46)
[2023-05-05] MEDS: vancomycin HCL 750 MG in 0.9 % Sodium Chloride 250 ML 265 MG IV ×2 (08:47→20:38)
--- NOTE | 2023-05-05 10:50 | HO.PM.IMPN ---
Subjective Subjective Date of Service: 05/05/23 Interval History: no fever BP coming up pain controlled Review of Systems Review of Systems: Yes all other systems are reviewed and are negative Physical Exam Vital Signs: Vital Signs: Last Vital Signs Temp 96.5 F L 05/05/23 07:51 Pulse 95 05/05/23 07:51 Resp 17 05/05/23 07:51 BP 105/86 05/05/23 07:51 Pulse Ox 95 05/05/23 07:51 O2 Del Method Room Air 05/05/23 07:51 O2 Flow Rate 2 04/28/23 07:46 Oxygen Flow Rate 2 04/27/23 13:32 BMI result Body Mass Index 21.4 Gen: in no acute distress HEENT: sclera anicteric, moist mucus membranes Neck: supple Lungs: clear to auscultation bilaterally Heart: regular rate and rhythm, no murmurs Abd: soft, non-tender, non-distended Ext: no edema, L AKA with fabian in place clean/dry/intact Skin: warm/well-perfused, stage 4 pressure injury over R hip, stage 3 pressure injury over L hip, unstageable R ischial pressure injury Neuro: alert and oriented x3, no focal findings Psych: appropriate affect Objective Data Active Medications Acetaminophen (Acetaminophen 325 Mg Tablet) 650 mg PO Q6H PRN PRN Reason: Pain, Mild (Pain Scale 1-3) Last Admin: 05/04/23 21:46 Dose: 650 mg Documented By: IGOR Apixaban (Apixaban 5 Mg Tablet) 5 mg PO BID COUNTS INCLUDE 234 BEDS AT THE [facility] Last Admin: 05/05/23 08:46 Dose: 5 mg Documented By: IRIS Aspirin (Aspirin Enteric Coated 81 Mg Tablet.) 81 mg PO DAILY COUNTS INCLUDE 234 BEDS AT THE [facility] Last Admin: 05/05/23 08:46 Dose: 81 mg Documented By: IRIS Atorvastatin Calcium (Atorvastatin Calcium 40 Mg Tablet) 40 mg PO BEDTIME COUNTS INCLUDE 234 BEDS AT THE [facility] Last Admin: 05/04/23 20:25 Dose: 40 mg Documented By: TEJA Benzonatate (Benzonatate 100 Mg Capsule) 100 mg PO TID PRN PRN Reason: Cough Clonidine HCl (Clonidine Hcl 0.1 Mg Tablet) 0.1 mg PO BID COUNTS INCLUDE 234 BEDS AT THE [facility]; Protocol Last Admin: 05/02/23 07:51 Dose: 0.1 mg Documented By: CLIVE Docusate Sodium (Docusate Sodium 100 Mg Capsule) 100 mg PO DAILY PRN PRN Reason: Constipation Last Admin: 05/03/23 08:39 Dose: 100 mg Documented By: SOFY Furosemide (Furosemide 20 Mg Tablet) 20 mg PO DAILY COUNTS INCLUDE 234 BEDS AT THE [facility]; Protocol Last Admin: 05/05/23 08:46 Dose: 20 mg Documented By: IRIS Piperacillin Sod/Tazobactam (Sod 3.375 gm/ Sodium Chloride) 50 mls @ 100 mls/hr IV Q6H COUNTS INCLUDE 234 BEDS AT THE [facility] Last Admin: 05/05/23 10:30 Dose: 100 mls/hr Documented By: IRIS Vancomycin HCl 750 mg/ Sodium (Chloride) 265 mls @ 265 mls/hr IV Q12H COUNTS INCLUDE 234 BEDS AT THE [facility] Last Infusion: 05/05/23 10:00 Dose: Infused Documented By: IRIS Levetiracetam (Levetiracetam 500 Mg Tablet) 500 mg PO BID COUNTS INCLUDE 234 BEDS AT THE [facility] Last Admin: 05/05/23 08:46 Dose: 500 mg Documented By: IRIS Melatonin (Melatonin 3 Mg Tablet) 6 mg PO BEDTIME PRN PRN Reason: Insomnia Last Admin: 05/03/23 20:17 Dose: 6 mg Documented By: OVIDIO Metoprolol Succinate (Metoprolol Succinate Er 25 Mg Tab.Er.24h) 25 mg PO DAILY COUNTS INCLUDE 234 BEDS AT THE [facility]; Protocol Last Admin: 05/05/23 08:46 Dose: 25 mg Documented By: IRIS Nicotine (Nicotine 21 Mg Patch.Td24) 21 mg TRANSDERMA DAILY COUNTS INCLUDE 234 BEDS AT THE [facility] Last Admin: 05/05/23 08:48 Dose: Not Given Documented By: IRIS Non-Admin Reason: Patient Refused Ondansetron HCl (Ondansetron Hcl 4 Mg/2 Ml Vial) 4 mg IVPUSH Q8H PRN PRN Reason: Nausea and Vomiting Oxycodone HCl (Oxycodone Hcl Immed Release 5 Mg Tablet) 10 mg PO Q4H PRN PRN Reason: severe pain Last Admin: 05/05/23 10:30 Dose: 10 mg Documented By: IRIS Pharmacy Consult (Consult Rx Vancomycin Dosing) 1 each MISCELLANE DAILY PRN PRN Reason: Consult order Sodium Chloride (0.9 % Sodium Chloride Flush 3 Ml Syringe) 3 ml IVFLUSH QSHIFT COUNTS INCLUDE 234 BEDS AT THE [facility] Last Admin: 05/05/23 08:51 Dose: Not Given Documented By: IRIS Non-Admin Reason: IV Running Labs 05/03/23 05:51 05/05/23 06:34 Labs: Laboratory Results - last 24 hr 05/04/23 05/05/23 16:57 06:34 Estim Creat Clear Calc 56.8 Estimated GFR > 60 Vancomycin Trough 12.7 Assessment and Plan (1) Seizure: Status: Acute (2) AKA stump complication: Status: Acute Plan d9 68yo with paroxysmal AF not compliant with apixaban, CAD s/p CABG, PAD s/p AKA, hx prior CVAs [most recently in July 2022], seizure disorder, HTN, HLD, COPD not on home O2, polysubstance abuse presents to ED after reported seizure at home chronic nonhealing wounds with question of osteomyelitis exposed bone at L AKA site subacute CVA on CT hypotension on 05/02/23 - fluid-responsive; lactate normalized; held metoprolol succinate + clonidine + furosemide; today will resume metoprolol succinate + furosemide sepsis due to cellulitis and likely osteomyelitis stage 4 pressure injury over R hip, stage 3 pressure injury over L hip, unstageable R ischial pressure injury - currently on d9 of vanco + pip-shameka; not bacteremic - suspect osteomyelitis; will need 6 wk IV ABX; place PICC and seek STR placement. Per IR, given polysubstance abuse, will not place PICC until STR placement is ensured - wound care recommendations: Left Residual Leg - Cleanse and irrigate with NS, apply single layer Cuticerin Impregnated Mesh (Available in Storeroom) cover with Dry gauze and ABD Pad followed by wrap. Change daily until seen by surgical provider.,, Bilateral Hip / Trochanter and Right Ischium / buttocks - Cleanse and irrigate with NS, Pat dry. Apply barrier wip to periwound. Cover and lightly pack wound beds with Alginate - be sure to leave a wick for easy removal. cover with foam dressing. Change Daily. L AKA wound with protruding bone - Gen Surg consulted, revised AKA stump on 04/30/23, following postoperatively seizure due to noncompliance - loaded with levetiracetam, continue outpt dosing subacute CVA, L cerebellar - resumed anticoagulation with apixaban + resumed ASA paroxysmal AF - currently NSR - per Cardiology, d/c'ed amiodarone continue noncompliance. continue apixaban. continue metoprolol succinate. NSVT ischemic cardiomyopathy CAD - continue metoprolol succinate and furosemide - continue ASA, statin hypoK - repleted polysubstance abuse - on oxycodone for pain control, was using heroin daily for pain control, Addiction Medicine consulted but pt did not express interest in methadone VTE ppx - apixaban dispo - will need STR In my clinical judgment, the patient requires continued inpatient hospitalization for the following reasons: IV ABX then placement with PICC Total time managing care of this patient today: 35 minutes. Quality Stroke Does the patient have a stroke diagnosis?: No Reason for No Anti-thrombotic by Day Two: Contraindicated VTE Prior VTE?: No VTE Risk Level:: Medical - moderate - high VTE Device Contraindication: Treatment Not Indicated VTE Drug Contraindication: N/A - Med Ordered
[2023-05-05] MEDS: 0.9 % Sodium Chloride 1,000 ML 999 ML IV (17:11)
--- NOTE | 2023-05-05 17:41 | HE.PHANOTE ---
RE: FABIOO patients level came back this evening at 17. will continue with current dose of 750 mg Q12H. predicted AUC 488, will get another level 05/06 @1700 to ensure safety vs efficacy
--- NOTE | 2023-05-05 18:08 | PC.NURSE ---
Pt alert and oriented x3 but forgetful. LSCTA denies SOB or CP, NSR on tele. BSX4 abdomen soft non-tender denies nausea/vomiting. [place] cath in place for urine. c/o pain medicated with prn oxycodone with some effect. Dressings CDI changed this shift. Left stump dressing CDI. Repos in bed as tolerated by patient. Soft bp in afternoon 88/54 although patient asymptomatic. Reported to Dr Danielle 1L bolus NS ordered and infusing. IV changed to right forearm 20G pt tolerated well. Plan to recheck BP following fluid bolus. Will continue to monitor and report changes
[2023-05-05] MEDS: 0.9 % Sodium Chloride Flush 3 ML SYRINGE IVFLUSH (20:37)
[2023-05-05] MEDS: Atorvastatin Calcium 40 MG TABLET PO (20:37)
[2023-05-05] MEDS: Melatonin 3 MG TABLET 6 MG PO (20:38)
[2023-05-06] VITALS (8 sets, daily range): BP systolic 106–165; BP diastolic 56–76; PULSE 63–81; RESP 18–20; TEMP 36.4–37.1; O2SAT 97–100
[2023-05-06] MEDS: Piperacillin Sodium/Tazobactam 3.375 GM in 0.9 % Sodium Chloride 50 ML IV ×4 (05:00→21:41)
--- NOTE | 2023-05-06 09:38 | P.PICC_ITS ---
PICC Line Insertion NPICC INSERTION Diagnosis: OSTEO Indication: CATALOGUE MAKER ANTIBX Pertinent Labs: REVIEWED Technique: Following informed consent including risks, benefits and alternatives and using sterile technique including cap and mask, sterile gown, glove and drape, the RIGHT arm was prepped and draped in the usual sterile fashion of full barrier technique with [facility]. Following completion of Outing Protocol the skin and soft tissues were anesthetized with 1% Lidocaine plain. Using ultrasound guidance, RIGHT BASILIC vein access was obtained ON FIRST ATTEMPT.. Over an 0.018 wire through peel-away sheath, a 4 FR SINGLE POWERPICC line was positioned. Catheter length is 40CM internal length, 0CM AT THE external length YANELI for a total trimmed length of 40CM. The procedure was performed in RM 272. Tip verification was performed by Diallo Castillo with Tanya 3CG. Tip located in SVC. Ultrasound was used to document vein patency and for needle entry. A formal ultrasound picture and cardiac rhythm strip was recorded. Vascular Grey Roll Worker has released the line for use and it is currently dressed with a StatLock, Tegaderm, and CHG disc. Verification has been performed for blood return and line patency. Arm Circumference: 25CM Equipment: BARD POWERPICC SOLO Catheter Type: 4FR SINGLE LUMEN PASV PICC LINE Lot #: [id number]
[2023-05-06] MEDS: Aspirin Enteric Coated 81 MG TABLET.DR PO (10:19)
[2023-05-06] MEDS: levETIRAcetam 500 MG TABLET PO ×2 (10:20→21:39)
[2023-05-06] MEDS: Furosemide 20 MG TABLET PO (10:20)
[2023-05-06] MEDS: Apixaban 5 MG TABLET PO ×2 (10:20→21:40)
[2023-05-06] MEDS: Metoprolol Succinate ER 25 MG TAB.ER.24H PO (10:20)
[2023-05-06] MEDS: 0.9 % Sodium Chloride Flush 3 ML SYRINGE IVFLUSH ×2 (10:21→15:49)
[2023-05-06] MEDS: oxyCODONE HCl Immed Release 5 MG TABLET 10 MG PO ×3 (10:37→21:39)
[2023-05-06] MEDS: vancomycin HCL 750 MG in 0.9 % Sodium Chloride 250 ML 265 MG IV ×2 (10:45→22:25)
[2023-05-06 11:50] LABS: Creatinine Clr Calc Pharmacy 53.7; Estimated Glomerular Filt Rate > 60
--- NOTE | 2023-05-06 12:58 | MHC.CM.PN ---
EMR reviewed and per MD rounds, pt is medically cleared for D/C pending STR placement. PICC line placed today, referrals updated and bed search expanded. CM will continue to follow for D/C.
--- NOTE | 2023-05-06 14:02 | MHC.CLN ---
F/U PT WITH INCREASED NUTRITION RISK R/T PRESSURE INJURIES DIET=2 GRAM SODIUM. ENSURE MAX BID TO PROMOTE WOUND HEALING. SUPPLEMENT PROVIDES 300 KCALS, 60 G PROTEIN. INTAKE AT MEALS USUALLY GOOD, 50-100%. MONITOR PO INTAKE AND ENCOURAGE SUPPLEMENT.
--- NOTE | 2023-05-06 14:36 | HO.PM.IMPN ---
Subjective Subjective Date of Service: 05/07/23 Interval History: no new fever or chills pain improving Review of Systems Review of Systems: Yes all other systems are reviewed and are negative Physical Exam Vital Signs: Vital Signs: Last Vital Signs Temp 98.7 F 05/06/23 12:00 Pulse 69 05/06/23 12:00 Resp 20 05/06/23 12:00 BP 106/56 L 05/06/23 12:00 Pulse Ox 99 05/06/23 12:00 O2 Del Method Room Air 05/06/23 12:00 O2 Flow Rate 2 04/28/23 07:46 Oxygen Flow Rate 2 04/27/23 13:32 BMI result Body Mass Index 21.4 Gen: in no acute distress Lungs: air entry fair , no rales or wheezing Heart: regular rate and rhythm. Abd: soft,nd,nt ,bs present. Ext: no edema, L AKA with fabian in place clean/dry/intact Skin: warm/well-perfused, stage 4 pressure injury over R hip, stage 3 pressure injury over L hip, unstageable R ischial pressure injury Neuro: alert and oriented x3, non focal Psych: appropriate affec Objective Data Active Medications Acetaminophen (Acetaminophen 325 Mg Tablet) 650 mg PO Q6H PRN PRN Reason: Pain, Mild (Pain Scale 1-3) Last Admin: 05/04/23 21:46 Dose: 650 mg Documented By: IGOR Apixaban (Apixaban 5 Mg Tablet) 5 mg PO BID [facility] Last Admin: 05/06/23 10:20 Dose: 5 mg Documented By: RADHA Aspirin (Aspirin Enteric Coated 81 Mg Tablet.) 81 mg PO DAILY [facility] Last Admin: 05/06/23 10:19 Dose: 81 mg Documented By: RADHA Atorvastatin Calcium (Atorvastatin Calcium 40 Mg Tablet) 40 mg PO BEDTIME [facility] Last Admin: 05/05/23 20:37 Dose: 40 mg Documented By: LOLIS Benzonatate (Benzonatate 100 Mg Capsule) 100 mg PO TID PRN PRN Reason: Cough Clonidine HCl (Clonidine Hcl 0.1 Mg Tablet) 0.1 mg PO BID [facility]; Protocol Last Admin: 05/02/23 07:51 Dose: 0.1 mg Documented By: CLIVE Docusate Sodium (Docusate Sodium 100 Mg Capsule) 100 mg PO DAILY PRN PRN Reason: Constipation Last Admin: 05/03/23 08:39 Dose: 100 mg Documented By: SOFY Furosemide (Furosemide 20 Mg Tablet) 20 mg PO DAILY [facility]; Protocol Last Admin: 05/06/23 10:20 Dose: 20 mg Documented By: RADHA Piperacillin Sod/Tazobactam (Sod 3.375 gm/ Sodium Chloride) 50 mls @ 100 mls/hr IV Q6H [facility] Last Infusion: 05/06/23 11:29 Dose: Infused Documented By: RADHA Vancomycin HCl 750 mg/ Sodium (Chloride) 265 mls @ 265 mls/hr IV Q12H [facility] Last Infusion: 05/06/23 11:48 Dose: Infused Documented By: RADHA Levetiracetam (Levetiracetam 500 Mg Tablet) 500 mg PO BID [facility] Last Admin: 05/06/23 10:20 Dose: 500 mg Documented By: RADHA Melatonin (Melatonin 3 Mg Tablet) 6 mg PO BEDTIME PRN PRN Reason: Insomnia Last Admin: 05/05/23 20:38 Dose: 6 mg Documented By: LOLIS Metoprolol Succinate (Metoprolol Succinate Er 25 Mg Tab.Er.24h) 25 mg PO DAILY [facility]; Protocol Last Admin: 05/06/23 10:20 Dose: 25 mg Documented By: RADHA Nicotine (Nicotine 21 Mg Patch.Td24) 21 mg TRANSDERMA DAILY [facility] Last Admin: 05/06/23 10:21 Dose: Not Given Documented By: RADHA Non-Admin Reason: Patient Refused Ondansetron HCl (Ondansetron Hcl 4 Mg/2 Ml Vial) 4 mg IVPUSH Q8H PRN PRN Reason: Nausea and Vomiting Oxycodone HCl (Oxycodone Hcl Immed Release 5 Mg Tablet) 10 mg PO Q4H PRN PRN Reason: severe pain Last Admin: 05/06/23 10:37 Dose: 10 mg Documented By: RADHA Pharmacy Consult (Consult Rx Vancomycin Dosing) 1 each MISCELLANE DAILY PRN PRN Reason: Consult order Sodium Chloride (0.9 % Sodium Chloride Flush 3 Ml Syringe) 3 ml IVFLUSH QSHIFT [facility] Last Admin: 05/06/23 10:21 Dose: 3 ml Documented By: RADHA Labs 05/03/23 05:51 05/07/23 06:53 Labs: Laboratory Results - last 24 hr 05/05/23 05/06/23 16:59 11:27 Estim Creat Clear Calc 53.7 Estimated GFR > 60 Random Vancomycin 17.0 Assessment and Plan (1) Seizure: Status: Acute Plan Day 10: 68yo with paroxysmal AF not compliant with apixaban, CAD s/p CABG, PAD s/p AKA, hx prior CVAs [most recently in July 2022], seizure disorder, HTN, HLD, COPD not on home O2, polysubstance abuse. presents to ED after reported seizure at home chronic nonhealing wounds with question of osteomyelitis exposed bone at L AKA site subacute CVA on CT hypotension on 05/02/23 fluid-responsive; lactate normalized; held metoprolol succinate + clonidine + furosemide. started metoprolol succinate + furosemide sepsis due to cellulitis and likely osteomyelitis stage 4 pressure injury over R hip, stage 3 pressure injury over L hip, unstageable R ischial pressure injury vanco trough 17 (05/05/23) currently on d10 of vanco + pip-shameka; not bacteremic. place PICC and seek STR placement - suspect osteomyelitis; will need 6 wk IV ABX. Per IR, given polysubstance abuse, will not place PICC until STR placement is ensured - wound care recommendations: Left Residual Leg - Cleanse and irrigate with NS, apply single layer Cuticerin Impregnated Mesh (Available in Storeroom) cover with Dry gauze and ABD Pad followed by wrap. Change daily , Bilateral Hip / Trochanter and Right Ischium / buttocks - Cleanse and irrigate with NS, Pat dry. Apply barrier wip to periwound. Cover and lightly pack wound beds with Alginate - be sure to leave a wick for easy removal. cover with foam dressing. Change Daily. L AKA wound with protruding bone- Gen Surg consulted, revised AKA stump on 04/30/23, following postoperatively surgery following seizure due to noncompliance-continue levetiracetam, continue outpt dosing subacute CVA, L cerebellar- resumed anticoagulation with apixaban + resumed ASA paroxysmal AF- currently NSR- per Cardiology, d/c'ed amiodarone continue noncompliance. continue apixaban and metoprolol succinate. NSVT-ischemic cardiomyopathy/CAD: continue metoprolol succinate and furosemide, ASA, statin hypoK- repleted and resolved. polysubstance abuse- on oxycodone for pain control, was using heroin daily for pain control, Addiction Medicine consulted but pt did not express interest in methadone. VTE ppx- apixaban. dispo- will need .STR patient requires continued inpatient hospitalization for the following reasons: IV ABX s/pPICC, needs surgery follow up for wound,placement. Quality Stroke Does the patient have a stroke diagnosis?: No Reason for No Anti-thrombotic by Day Two: Contraindicated VTE Prior VTE?: No VTE Risk Level:: Medical - moderate - high VTE Device Contraindication: Treatment Not Indicated VTE Drug Contraindication: N/A - Med Ordered
[2023-05-06] MEDS: Acetaminophen 325 MG TABLET 650 MG PO (15:48)
[2023-05-06 20:35] LABS: Vancomycin Random 14.5 mcg/mL (15-20)
[2023-05-06] MEDS: Atorvastatin Calcium 40 MG TABLET PO (21:39)
[2023-05-06] MEDS: 0.9 % Sodium Chloride Flush 10 ML SYRINGE 5 ML IVFLUSH ×2 (21:40→22:26)
[2023-05-07] VITALS (9 sets, daily range): BP systolic 91–133; BP diastolic 49–68; PULSE 61–85; RESP 16–20; TEMP 36.4–37.1; O2SAT 96–99
[2023-05-07] MEDS: oxyCODONE HCl Immed Release 5 MG TABLET 10 MG PO ×4 (01:55→19:44)
[2023-05-07] MEDS: Piperacillin Sodium/Tazobactam 3.375 GM in 0.9 % Sodium Chloride 50 ML IV ×3 (05:15→16:00)
[2023-05-07 07:56] LABS: Creatinine Clr Calc Pharmacy 61.9; Estimated Glomerular Filt Rate > 60
[2023-05-07] MEDS: Nicotine 21 MG PATCH.TD24 TRANSDERMA (09:21)
[2023-05-07] MEDS: 0.9 % Sodium Chloride Flush 3 ML SYRINGE IVFLUSH ×2 (09:21→14:40)
[2023-05-07] MEDS: Metoprolol Succinate ER 25 MG TAB.ER.24H PO (09:22)
[2023-05-07] MEDS: Aspirin Enteric Coated 81 MG TABLET.DR PO (09:22)
[2023-05-07] MEDS: Furosemide 20 MG TABLET PO (09:22)
[2023-05-07] MEDS: levETIRAcetam 500 MG TABLET PO ×2 (09:23→20:34)
[2023-05-07] MEDS: Apixaban 5 MG TABLET PO ×2 (09:23→20:34)
[2023-05-07] MEDS: vancomycin HCL 750 MG in 0.9 % Sodium Chloride 250 ML 265 MG IV (09:24)
--- NOTE | 2023-05-07 12:24 | MHC.CLN ---
F/U PT WITH INCREASED NUTRITION RISK R/T PRESSURE INJURIES INTAKE AT MEALS USUALLY FAIR TO GOOD DIET RX:2 GRAM SODIUM-APPROPRIATE PT RECEIVING ENSURE MAX BID TO PROMOTE WOUND HEALING PROVIDES 300 KCALS, 60 G PROTEIN MONITOR PO INTAKE AND ENCOURAGE SUPPLEMENT
--- NOTE | 2023-05-07 15:39 | PC.NURSE ---
cardiac nurse specialist: run of 28 beats of wide complexes , pt alert and oriented x 4 ,denied dizziness, denied sob, no chest pain VVS, DR Maradiaga notified
--- NOTE | 2023-05-07 15:45 | P.PNIM_ITS ---
Subjective Subjective Date of Service: 05/07/23 Interval History: no new fever or chills pain improving boderline bp episode of nsvt Review of Systems Review of Systems: Yes all other systems are reviewed and are negative Physical Exam 2 Vital Signs: Vital Signs: Last Vital Signs Temp 98.8 F 05/07/23 15:28 Pulse 85 05/07/23 15:28 Resp 18 05/07/23 15:28 BP 91/49 L 05/07/23 15:28 Pulse Ox 98 05/07/23 15:28 O2 Del Method Room Air 05/07/23 15:28 O2 Flow Rate 2 04/28/23 07:46 Oxygen Flow Rate 2 04/27/23 13:32 BMI result Body Mass Index 21.4 Gen: in no acute distress Lungs: clear to auscultation bilaterally Heart: regular rate and rhythm, no murmurs Abd: soft, non-tender, non-distended Ext: no edema, L AKA with fabian in place clean/dry/intact Skin: warm/well-perfused, stage 4 pressure injury over R hip, stage 3 pressure injury over L hip, unstageable R ischial pressure injury Neuro: alert and oriented x3, no focal findings Psych: appropriate affect Objective Data Active Medications Acetaminophen (Acetaminophen 325 Mg Tablet) 650 mg PO Q6H PRN PRN Reason: Pain, Mild (Pain Scale 1-3) Last Admin: 05/06/23 15:48 Dose: 650 mg Documented By: DAVI Apixaban (Apixaban 5 Mg Tablet) 5 mg PO BID [facility] Last Admin: 05/07/23 09:23 Dose: 5 mg Documented By: BEKAH Aspirin (Aspirin Enteric Coated 81 Mg Tablet.Dr) 81 mg PO DAILY [facility] Last Admin: 05/07/23 09:22 Dose: 81 mg Documented By: BEKAH Atorvastatin Calcium (Atorvastatin Calcium 40 Mg Tablet) 40 mg PO BEDTIME [facility] Last Admin: 05/06/23 21:39 Dose: 40 mg Documented By: LOLIS Benzonatate (Benzonatate 100 Mg Capsule) 100 mg PO TID PRN PRN Reason: Cough Clonidine HCl (Clonidine Hcl 0.1 Mg Tablet) 0.1 mg PO BID [facility]; Protocol Last Admin: 05/02/23 07:51 Dose: 0.1 mg Documented By: CLIVE Docusate Sodium (Docusate Sodium 100 Mg Capsule) 100 mg PO DAILY PRN PRN Reason: Constipation Last Admin: 05/03/23 08:39 Dose: 100 mg Documented By: SOFY Furosemide (Furosemide 20 Mg Tablet) 20 mg PO DAILY [facility]; Protocol Last Admin: 05/07/23 09:22 Dose: 20 mg Documented By: BEKAH Piperacillin Sod/Tazobactam (Sod 3.375 gm/ Sodium Chloride) 50 mls @ 100 mls/hr IV Q6H [facility] Last Infusion: 05/07/23 09:57 Dose: Infused Documented By: BEKAH Vancomycin HCl 750 mg/ Sodium (Chloride) 265 mls @ 265 mls/hr IV Q12H [facility] Last Infusion: 05/07/23 10:58 Dose: Infused Documented By: BEKAH Levetiracetam (Levetiracetam 500 Mg Tablet) 500 mg PO BID [facility] Last Admin: 05/07/23 09:23 Dose: 500 mg Documented By: BEKAH Melatonin (Melatonin 3 Mg Tablet) 6 mg PO BEDTIME PRN PRN Reason: Insomnia Last Admin: 05/05/23 20:38 Dose: 6 mg Documented By: LOLIS Metoprolol Succinate (Metoprolol Succinate Er 25 Mg Tab.Er.24h) 25 mg PO DAILY [facility]; Protocol Last Admin: 05/07/23 09:22 Dose: 25 mg Documented By: BEKAH Nicotine (Nicotine 21 Mg Patch.Td24) 21 mg TRANSDERMA DAILY [facility] Last Admin: 05/07/23 09:21 Dose: 21 mg Documented By: BEKAH Ondansetron HCl (Ondansetron Hcl 4 Mg/2 Ml Vial) 4 mg IVPUSH Q8H PRN PRN Reason: Nausea and Vomiting Oxycodone HCl (Oxycodone Hcl Immed Release 5 Mg Tablet) 10 mg PO Q4H PRN PRN Reason: severe pain Last Admin: 05/07/23 14:40 Dose: 10 mg Documented By: BEKAH Pharmacy Consult (Consult Rx Vancomycin Dosing) 1 each MISCELLANE DAILY PRN PRN Reason: Consult order Sodium Chloride (0.9 % Sodium Chloride Flush 3 Ml Syringe) 3 ml IVFLUSH QSHIFT [facility] Last Admin: 05/07/23 14:40 Dose: 3 ml Documented By: BKEAH Sodium Chloride (0.9 % Sodium Chloride Flush 10 Ml Syringe) 5 ml IVFLUSH TID [facility] Last Admin: 05/06/23 22:26 Dose: 5 ml Documented By: LOLIS Labs 05/03/23 05:51 05/07/23 16:08 Labs: Laboratory Results - last 24 hr 05/06/23 05/07/23 19:59 06:53 Hold Purple Top SEE NOTE Estim Creat Clear Calc 61.9 Estimated GFR > 60 Random Vancomycin 14.5 L Assessment and Plan (1) Seizure: Status: Acute Plan Day 10: 68yo with paroxysmal AF not compliant with apixaban, CAD s/p CABG, PAD s/p AKA, hx prior CVAs [most recently in July 2022], seizure disorder, HTN, HLD, COPD not on home O2, polysubstance abuse. presents to ED after reported seizure at home chronic nonhealing wounds with question of osteomyelitis exposed bone at L AKA site subacute CVA on CT hypotension on 05/02/23 fluid-responsive; lactate normalized; held metoprolol succinate + clonidine + furosemide. started metoprolol succinate + furosemide sepsis due to cellulitis and likely osteomyelitis stage 4 pressure injury over R hip, stage 3 pressure injury over L hip, unstageable R ischial pressure injury vanco trough 17 (05/05/23) currently on d10 of vanco + pip-shameka; not bacteremic. place PICC and seek STR placement - suspect osteomyelitis; will need 6 wk IV ABX. Per IR, given polysubstance abuse, will not place PICC until STR placement is ensured - wound care recommendations: Left Residual Leg - Cleanse and irrigate with NS, apply single layer Cuticerin Impregnated Mesh (Available in Storeroom) cover with Dry gauze and ABD Pad followed by wrap. Change daily , Bilateral Hip / Trochanter and Right Ischium / buttocks - Cleanse and irrigate with NS, Pat dry. Apply barrier wip to periwound. Cover and lightly pack wound beds with Alginate - be sure to leave a wick for easy removal. cover with foam dressing. Change Daily. L AKA wound with protruding bone- Gen Surg consulted, revised AKA stump on 04/30/23, following postoperatively surgery following seizure due to noncompliance-continue levetiracetam, continue outpt dosing subacute CVA, L cerebellar- resumed anticoagulation with apixaban + resumed ASA paroxysmal AF- currently NSR- per Cardiology, d/c'ed amiodarone continue noncompliance. continue apixaban and metoprolol succinate. NSVT-ischemic cardiomyopathy/CAD: today had 28 beat episode, asymptomatic Asymptomatic, potassium is 3.3 , magnesium is 2 Will add potassium. continue metoprolol succinate and furosemide, ASA, statin Discussed with Cardiology follow-up they will follow-up in morning. hypoK- repleted and resolved. polysubstance abuse- on oxycodone for pain control, was using heroin daily for pain control, Addiction Medicine consulted but pt did not express interest in methadone. VTE ppx- apixaban. dispo- will need .STR patient requires continued inpatient hospitalization for the following reasons: IV ABX s/pPICC, needs surgery follow up for wound,placement. Quality Stroke Does the patient have a stroke diagnosis?: No Reason for No Anti-thrombotic by Day Two: Contraindicated VTE Prior VTE?: No VTE Risk Level:: Medical - moderate - high VTE Device Contraindication: Treatment Not Indicated VTE Drug Contraindication: N/A - Med Ordered
[2023-05-07 16:32] LABS: Anion Gap 12 (12-20); Blood Urea Nitrogen 16 mg/dL (9-16); Calcium 8.2 mg/dL (8.4-10.2); Carbon Dioxide 20 mmol/L (22-29); Chloride 112 mmol/L (96-108); Creatinine Clr Calc Pharmacy 65.2; Estimated Glomerular Filt Rate > 60; Glucose Random 97 mg/dL (60-115); Potassium 3.3 mmol/L (3.3-5.1); Sodium 141 mmol/L (135-145)
[2023-05-07] MEDS: 0.9 % Sodium Chloride Flush 10 ML SYRINGE 5 ML IVFLUSH ×2 (16:46→21:40)
[2023-05-07] MEDS: Potassium Chloride Packet 20 MEQ PACKET 40 MEQ PO (18:41)
--- NOTE | 2023-05-07 18:58 | P.CDIM_ITS ---
PROVIDER RESPONSE TEXT: To clarify, the appropriate diagnosis supported by the clinical indicators: Acute QUERY TEXT: PHYSICIAN'S DOCUMENTATION REQUEST Date of Query: 05/07/2023 07:28 AM EST Patient Name: Phan Boateng Admit Date: 04/27/2023 Dear Jennifer Maradiaga, A review of the medical record indicates additional documentation may be needed. Please review below and update the documentation accordingly. Clinical Indicators: Per Hospitalist Progress Note 05/06/23: chronic nonhealing wounds with question of osteomyelitis exposed bone at L AKA site Treated with IV Piperacillin Sod/Tazobactam Sod Q6H and IV Vancomycin 750 mg Q 12H Clarify which of the following accurately represents the acuity of the Osteomyelitis. Possible options might include: Acute Acute on chronic Compensated Chronic stable condition Other (explain) Clinically unable to determine (explain) Thank you, Lolita Chapa RN Use of terms such as suspected, likely, concern for, or probable (associated with a specific diagnosi s that is being evaluated, monitored, or treated as if it exists) are acceptable and can be coded in the inpatient se tting, when documented at the time of discharge. Please use your independent medical judgment in providing your response. THIS QUERY IS PART OF THE PERMANENT MEDICAL RECORD
[2023-05-07] MEDS: Potassium Chloride/H20 10 MEQ/100 ML PIGGYBACK 100 MEQ IV ×2 (19:37→20:33)
[2023-05-07] MEDS: Atorvastatin Calcium 40 MG TABLET PO (20:34)
[2023-05-08] VITALS (11 sets, daily range): BP systolic 79–142; BP diastolic 47–86; PULSE 56–82; RESP 12–20; TEMP 36.4–37.3; O2SAT 92–99
[2023-05-08] MEDS: oxyCODONE HCl Immed Release 5 MG TABLET 10 MG PO ×3 (00:22→19:52)
[2023-05-08] MEDS: 0.9 % Sodium Chloride Flush 3 ML SYRINGE IVFLUSH ×4 (00:23→19:53)
[2023-05-08 08:39] LABS: Anion Gap 13 (12-20); Blood Urea Nitrogen 16 mg/dL (9-16); Calcium 9.2 mg/dL (8.4-10.2); Carbon Dioxide 22 mmol/L (22-29); Chloride 110 mmol/L (96-108); Creatinine Clr Calc Pharmacy 58.9; Estimated Glomerular Filt Rate > 60; Glucose Random 88 mg/dL (60-115); Sodium 141 mmol/L (135-145)
[2023-05-08] MEDS: Aspirin Enteric Coated 81 MG TABLET.DR PO (09:55)
[2023-05-08] MEDS: levETIRAcetam 500 MG TABLET PO ×2 (09:55→19:52)
[2023-05-08] MEDS: Metoprolol Succinate ER 25 MG TAB.ER.24H PO (09:55)
[2023-05-08] MEDS: Apixaban 5 MG TABLET PO ×2 (09:55→19:52)
[2023-05-08] MEDS: Furosemide 20 MG TABLET PO (09:55)
[2023-05-08] MEDS: 0.9 % Sodium Chloride Flush 10 ML SYRINGE 5 ML IVFLUSH ×2 (09:56→17:02)
[2023-05-08] MEDS: Amiodarone HCL 200 MG TABLET PO (10:21)
--- NOTE | 2023-05-08 10:53 | P.PNCA_ITS ---
Subjective Subjective Date of Service: 05/08/23 Interval history: Asked to review because of NSVT on monitor. Patient himself has absolutely no cardiac symptoms. He states he is feeling comfortable. Review of Systems Review of Systems Yes all other systems are reviewed and are negative Constitutional: Reports as per HPI and Reports no additional constitutional complaints Eyes: Reports as per HPI and Denies no additional eye complaints Denies system reviewed and no additional complaints, except as documented and Reports as per HPI Cardiovascular: Reports as per HPI, Reports no additional cardiovascular complaints, Denies acrocyanosis, Denies cool extremities, Denies chest pain, Denies leg edema, Denies lightheadedness, Denies palpitations and Denies dyspnea Respiratory: Reports as per HPI, Denies no additional respiratory complaints and Denies dyspnea Gastrointestinal: Reports as per HPI and Denies no additional gastrointestinal complaints Genitourinary: Reports no additional male genitourinary complaints and Reports as per HPI Musculoskeletal: Reports no additional musculoskeletal complaints and Reports as per HPI Skin/Breast: Reports system reviewed and no additional complaints, except as docu Reports system reviewed and no additional complaints, except as documented and Reports as per HPI Psychiatric: Reports no additional psychiatric complaints and Reports as per HPI Endocrine: Reports no additional endocrine complaints, Reports as per HPI and Denies palpitations Hematologic/Lymphatic: Reports no additional hematologic/lymphatic complaints and Reports as per HPI Allergic/Immunologic: Reports no additional allergic/immunologic complaints and Reports as per HPI Physical Exam Vital Signs: Last Vital Signs Temp 99.1 F 05/08/23 07:07 Pulse 72 05/08/23 07:07 Resp 16 05/08/23 07:07 BP 118/66 05/08/23 07:07 Pulse Ox 98 05/08/23 07:07 O2 Del Method Room Air 05/08/23 07:07 O2 Flow Rate 2 04/28/23 07:46 Oxygen Flow Rate 2 04/27/23 13:32 BMI result Body Mass Index 21.4 Const General: comfortable and no acute distress Orientation/consciousness: patient oriented x3 HEENT Other: Unremarkable Head: Yes normal to inspection Neck Neck: Yes normal visual inspection Chest Chest palpation & inspection: normal inspection of the chest Resp Auscultation: clear to auscultation bilaterally Cardio Palpation: normal PMI Heart sounds: S1 normal heart sound present, S2 normal heart sound present, no gallops, Murmur heart sound present systolic II/ and no rubs GI Palpation (GI): Soft to palpation Back/Spine/Pelvis Other: unremarkable Skin General skin exam: no rashes or lesions noted Neuro General: patient oriented x3 Extrem Other: Left AKA. Psych Mental Status: mental status grossly normal Objective Labs and Meds 05/03/23 05:51 05/08/23 06:31 Lab results: Laboratory Results - last 24 hr 05/07/23 05/08/23 16:08 06:31 Hold Purple Top SEE NOTE Sodium 141 141 Potassium 3.3 4.0 D Chloride 112 H 110 H Carbon Dioxide 20 L 22 Anion Gap 12 13 BUN 16 16 Creatinine 0.75 0.83 Estim Creat Clear Calc 65.2 58.9 Estimated GFR > 60 > 60 Random Glucose 97 88 Calcium 8.2 L D 9.2 D Magnesium 2.0 Progress Note: A&P Assessment and plan (1) NSVT (nonsustained ventricular tachycardia): Status: Acute (2) Ischemic cardiomyopathy: Status: Acute (3) Paroxysmal atrial fibrillation: Status: Acute (4) Substance abuse: Status: Acute Plan Had a long discussion with the patient. 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 but he is not very clear about it. With regard to medications, he states he does not take them regularly and in fact some days he does not take anything. When asking as to the reason why, he states it is because financial. However, he also admits to taking drugs regularly. He still doing heroin. Most recently, he was using fentanyl as evidenced by tox screen. When asked about all these things he states he is aware of the risks and I strongly advised him to change. With regard to the NSVT itself, could be all scar related. Monomorphic nature and hence less likely ischemic. It seems that he was put on amiodarone in the past - it was on admission med list but again when I questioned patient he is not clear about taking it or not. We can resume the amiodarone at 200 mg daily. He is also on beta-blockers. Continue with anticoagulation. Explain the importance of these meds as much as I could. He has borderline QT prolongation at baseline. Hence recommend repeating an EKG in a few days after amiodarone use. This can be done in the rehab facility. Also encouraged patient to arrange follow-up with his own computer tech. Discussed with Dr. Maradiaga. Time Spent With Patient Time: Total time managing care of this patient today ____ minutes. Progress Note: Quality Stroke Does the patient have a stroke diagnosis?: No Reason for No Anti-thrombotic by Day Two: Contraindicated Procedures Date of Service Date of Service: 05/08/23
--- NOTE | 2023-05-08 12:15 | HO.WOUND ---
Wound Consult: Follow up 68yr old male admitted to [facility] on?04/27/23 17:52 - See progress notes and H&P for detailed history. Wound consult follow up request by provider prior to d/c today for Bilateral Trochanter sites, right Ischium . Pt was agreeable to assessment and photo documentation. Information from previous assessment: He reports he does not have current provider covering these wounds - he reports he has never sough treatment for hip and buttock wounds - chart review reveals pt did in fact follow with outpt wound clinic for two visits on in November and last one 12/17/22. Wound were charted as following - Right Hip Stage 4 and Left buttock Stage 4 and right ischium stage 3. Currently Left buttock healed - evidence of previous injury noted with scar tissue formation and hypopigmentation noted. and Right buttock / ischium is currently stage 4 as it probes to bone although bone does not feel frankly exposed. Pt states these wound may be caused by his substance use - he denies injecting but reports he does smoke heroin regularly - he reports he does not feel they are pressure related - attempted to educate pt on pressure injuries causes and preventative treatments - he reports understanding but does not agree these are from prolonged pressure exposure - despite his confirmation of lack of mobility and lack of consistent repositioning and home ervices. Of note wound remain consistent with pressure presentation and are over bony prominences and pt appears malnourished at this time. Nuttrition is following and orders are in place. Todays assessment shows overall improved wound beds and periwounds. Pt educated to continue with topical care and off loading and to follow up with Outpt Wound Clinic at time of D/C - he reports understanding. Left residual leg wound - followed by surgery - defer to surgery for topical recommendations. 04/28/23 assessment Todays assessment 05/08/23 Right Troachanter / Hip Etiology: Previously documented stage 4 pressure injury POA Measurements: 2.5cm x 2cm x 0.4cm with circumferential undermining max depth at 5 o'clock 2.2cm Wound Bed: Improving - red pink moist tissue with central adherent thick yellow slough Drainage / Odor: scant tirado yellow drainage noted - no odor noted Edges: ? epibole Valarie wound: resolved erythema No Induration, Fluctuance or Warmth noted Pain: Mild pain with cleansing Goals of Treatment: ?Off Load pressure and Alginate for moisture management 04/28/23 Assessment Todays assessment 05/08/23 Left Troachanter / Hip Etiology: Resurfacing Stage 3 pressure injury POA Measurements: 0.3cm x 0.6cm x 0.1cm Wound Bed: dried pink wound bed clean Drainage / Odor: no drainage - no odor noted Edges: ? attached Valarie wound: No Induration, Fluctuance or Warmth noted Pain: denies pain Goals of Treatment: ?Off Load pressure and Foam for moist wound healing and to protect from friction 04/28/23 Assessment Todays assessment 05/08/23 Right Ischium Etiology: Stage 4 Pressure Injury POA - Previously documented stage 3 pressure injury with out pt WCC Measurements: 0.3cm x 0.5cm x 2cm Wound Bed:unable to visalize wound bed - probes to depth of bone although bone is not palpable with Qtip - stage 4 pressure injury Drainage / Odor: yellow tirado drainage noted on dressing - no odor noted Edges: ? unattached Valarie wound: Improving periwound and wound size - hyperpigmentation - No Induration, Fluctuance or Warmth noted Pain: Mild pain with cleansing and probing Goals of Treatment: ?Off Load pressure and Alginate packing for moisture management Recommendations: 1. Turn and Reposition every 2 hours and as needed for patient comfort. Use pillow or wedges to aid in supporting off loaded position. 2. Off Load all bony prominences with use of pillows and heel boots if needed.? Apply Preventative foams where needed. ? 3. Monitor for incontinence and moisture control, use barrier creams when needed for prevention and treatment. 4. Provide adequate and supplemental nutrition. - Nutrition following and orders in place. 5. Continue low air loss mattress. 6. Right (Hip) Trochanter and Right Ischium - Cleanse and irrigate with NS, Pat dry. Apply barrier wipe to periwound. Cover and lightly pack wound beds with Alginate - be sure to leave a wick for easy removal. cover with foam dressing. Change Daily. 7. Left (Hip) Trochanter - Cleanse with NS, Pat dry. Apply barrier wipe to periwound. Cover with foam dressing peel back and assess Q shift and change every 3 days and PRN for soiling. Wound Clinic Follow up Recommend follow up out patient Wound Clinic at [address] [place] [id number] and to call for an appointment at time of discharge. [phone].? Re-consult wound care Nurse for wound deterioration or wound changes.
--- NOTE | 2023-05-08 13:29 | MHC.CM.PN ---
EMR reviewed and per MD rounds, pt is medically cleared for D/C pending STR placement. PASRR completed per [facility] request and sent yesterday on 05/07. [facility] willing to accept pt yesterday 05/07. Today this CM tried to communicate with [facility] via [employer] to confirm his D/C there multiple times, with no responses. This CM called [facility] and spoke with Gaby in admissions who states we know nothing about this pt and cannot accept him with only medicare for insurance, he will need to apply for [employer] first. Per [facility] financial counselor, they do not help pts with [employer] apps for STR, they state the facility will need to help him when hes there. Pt and MD updated as pt unable to D/C today. This CM spoke with pt to relay that medicare will only cover his first 20 days at STR, then would have a co-pay of approx. $200/day. Pt states he would not be able to afford that co-pay.
--- NOTE | 2023-05-08 13:52 | PM.EVENT ---
Event Note Date of Service: 05/08/23 Event Note: 6 week IV Ertapenem,can give Merem here Time Spent With Patient Time: Total time managing care of this patient today ____ minutes.
--- NOTE | 2023-05-08 14:41 | HO.PM.IMPN ---
Subjective Subjective Date of Service: 05/08/23 Interval History: no new fever or chills pain improving boderline bp no new episode nsvt Review of Systems Review of Systems: Yes all other systems are reviewed and are negative Physical Exam Vital Signs: Vital Signs: Last Vital Signs Temp 97.5 F 05/08/23 11:32 Pulse 82 05/08/23 12:15 Resp 16 05/08/23 12:15 BP 102/54 L 05/08/23 12:15 Pulse Ox 96 05/08/23 11:32 O2 Del Method Room Air 05/08/23 11:32 O2 Flow Rate 2 04/28/23 07:46 Oxygen Flow Rate 2 04/27/23 13:32 BMI result Body Mass Index 21.4 Gen: in no acute distress Lungs: clear to auscultation bilaterally Heart: regular rate and rhythm, no murmurs Abd: soft, non-tender, non-distended Ext: no edema, L AKA with fabian in place clean/dry/intact Skin: warm/well-perfused, stage 4 pressure injury over R hip, stage 3 pressure injury over L hip, unstageable R ischial pressure injury Neuro: alert and oriented x3, no focal findings Psych: appropriate affect Objective Data Active Medications Acetaminophen (Acetaminophen 325 Mg Tablet) 650 mg PO Q6H PRN PRN Reason: Pain, Mild (Pain Scale 1-3) Last Admin: 05/06/23 15:48 Dose: 650 mg Documented By: DAVI Amiodarone HCl (Amiodarone Hcl 200 Mg Tablet) 200 mg PO DAILY [facility] Last Admin: 05/08/23 10:21 Dose: 200 mg Documented By: ANDRÉS Apixaban (Apixaban 5 Mg Tablet) 5 mg PO BID [facility] Last Admin: 05/08/23 09:55 Dose: 5 mg Documented By: ANDRÉS Aspirin (Aspirin Enteric Coated 81 Mg Tablet.Dr) 81 mg PO DAILY [facility] Last Admin: 05/08/23 09:55 Dose: 81 mg Documented By: ANDRÉS Atorvastatin Calcium (Atorvastatin Calcium 40 Mg Tablet) 40 mg PO BEDTIME [facility] Last Admin: 05/07/23 20:34 Dose: 40 mg Documented By: SUSAN Benzonatate (Benzonatate 100 Mg Capsule) 100 mg PO TID PRN PRN Reason: Cough Docusate Sodium (Docusate Sodium 100 Mg Capsule) 100 mg PO DAILY PRN PRN Reason: Constipation Last Admin: 05/03/23 08:39 Dose: 100 mg Documented By: SOFY Furosemide (Furosemide 20 Mg Tablet) 20 mg PO DAILY [facility]; Protocol Last Admin: 05/08/23 09:55 Dose: 20 mg Documented By: ANDRÉS Meropenem 1 gm/ Sodium (Chloride) 100 mls @ 200 mls/hr IV Q8H [facility] Last Infusion: 05/08/23 10:24 Dose: Infused Documented By: ANDRÉS Levetiracetam (Levetiracetam 500 Mg Tablet) 500 mg PO BID [facility] Last Admin: 05/08/23 09:55 Dose: 500 mg Documented By: ANDRÉS Melatonin (Melatonin 3 Mg Tablet) 6 mg PO BEDTIME PRN PRN Reason: Insomnia Last Admin: 05/05/23 20:38 Dose: 6 mg Documented By: LOLIS Metoprolol Succinate (Metoprolol Succinate Er 25 Mg Tab.Er.24h) 25 mg PO DAILY [facility]; Protocol Last Admin: 05/08/23 09:55 Dose: 25 mg Documented By: ANDRÉS Nicotine (Nicotine 21 Mg Patch.Td24) 21 mg TRANSDERMA DAILY [facility] Last Admin: 05/08/23 10:12 Dose: Not Given Documented By: ANDRÉS Non-Admin Reason: Patient Refused Ondansetron HCl (Ondansetron Hcl 4 Mg/2 Ml Vial) 4 mg IVPUSH Q8H PRN PRN Reason: Nausea and Vomiting Oxycodone HCl (Oxycodone Hcl Immed Release 5 Mg Tablet) 10 mg PO Q4H PRN PRN Reason: severe pain Last Admin: 05/08/23 09:55 Dose: 10 mg Documented By: ANDRÉS Sodium Chloride (0.9 % Sodium Chloride Flush 3 Ml Syringe) 3 ml IVFLUSH QSHIFT [facility] Last Admin: 05/08/23 09:56 Dose: 3 ml Documented By: ANDRÉS Sodium Chloride (0.9 % Sodium Chloride Flush 10 Ml Syringe) 5 ml IVFLUSH TID [facility] Last Admin: 05/08/23 09:56 Dose: 5 ml Documented By: ANDRÉS Labs 05/03/23 05:51 12/28/23 06:31 Labs: Laboratory Results - last 24 hr 05/07/23 05/08/23 16:08 06:31 Hold Purple Top SEE NOTE Anion Gap 12 13 Estim Creat Clear Calc 65.2 58.9 Estimated GFR > 60 > 60 Random Glucose 97 88 Calcium 8.2 L D 9.2 D Magnesium 2.0 Assessment and Plan (1) Seizure: Status: Acute Plan Day 10: 68yo with paroxysmal AF not compliant with apixaban, CAD s/p CABG, PAD s/p AKA, hx prior CVAs [most recently in July 2022], seizure disorder, HTN, HLD, COPD not on home O2, polysubstance abuse. presents to ED after reported seizure at home chronic nonhealing wounds with question of osteomyelitis exposed bone at L AKA site subacute CVA on CT hypotension on 05/02/23 fluid-responsive; lactate normalized; held metoprolol succinate + clonidine + furosemide. started metoprolol succinate + furosemide sepsis due to cellulitis and likely osteomyelitis stage 4 pressure injury over R hip, stage 3 pressure injury over L hip, unstageable R ischial pressure injury vanco trough 17 (05/05/23) currently on d10 of vanco + pip-shameka; not bacteremic. place PICC and seek STR placement - suspect osteomyelitis; will need 6 wk IV ABX. Per IR, given polysubstance abuse, will not place PICC until STR placement is ensured - wound care recommendations: Left Residual Leg - Cleanse and irrigate with NS, apply single layer Cuticerin Impregnated Mesh (Available in Storeroom) cover with Dry gauze and ABD Pad followed by wrap. Change daily , Bilateral Hip / Trochanter and Right Ischium / buttocks - Cleanse and irrigate with NS, Pat dry. Apply barrier wip to periwound. Cover and lightly pack wound beds with Alginate - be sure to leave a wick for easy removal. cover with foam dressing. Change Daily. L AKA wound with protruding bone- Gen Surg consulted, revised AKA stump on 04/30/23, following postoperatively surgery following seizure due to noncompliance-continue levetiracetam, continue outpt dosing subacute CVA, L cerebellar- resumed anticoagulation with apixaban + resumed ASA paroxysmal AF- currently NSR- per Cardiology, d/c'ed amiodarone continue noncompliance. continue apixaban and metoprolol succinate. NSVT-ischemic cardiomyopathy/CAD: today had 28 beat episode, asymptomatic Asymptomatic, potassium is 3.3 , magnesium is 2 Will add potassium. continue metoprolol succinate and furosemide, ASA, statin Discussed with Cardiology follow-up they will follow-up in morning. hypoK- repleted and resolved. polysubstance abuse- on oxycodone for pain control, was using heroin daily for pain control, Addiction Medicine consulted but pt did not express interest in methadone. VTE ppx- apixaban. dispo- will need .STR patient requires continued inpatient hospitalization for the following reasons: placement. Quality Stroke Does the patient have a stroke diagnosis?: No Reason for No Anti-thrombotic by Day Two: Contraindicated VTE Prior VTE?: No VTE Risk Level:: Medical - moderate - high VTE Device Contraindication: Treatment Not Indicated VTE Drug Contraindication: N/A - Med Ordered
[2023-05-08] MEDS: Atorvastatin Calcium 40 MG TABLET PO (19:52)
[2023-05-09] VITALS (8 sets, daily range): BP systolic 91–129; BP diastolic 51–72; PULSE 62–80; RESP 16–20; TEMP 36.1–36.8; O2SAT 96–98
[2023-05-09] MEDS: oxyCODONE HCl Immed Release 5 MG TABLET 10 MG PO ×4 (02:46→20:38)
[2023-05-09] MEDS: Metoprolol Succinate ER 25 MG TAB.ER.24H PO (09:06)
[2023-05-09] MEDS: Amiodarone HCL 200 MG TABLET PO (09:06)
[2023-05-09] MEDS: Aspirin Enteric Coated 81 MG TABLET.DR PO (09:06)
[2023-05-09] MEDS: Furosemide 20 MG TABLET PO (09:06)
[2023-05-09] MEDS: Apixaban 5 MG TABLET PO ×2 (09:06→20:38)
[2023-05-09] MEDS: levETIRAcetam 500 MG TABLET PO ×2 (09:06→20:38)
[2023-05-09] MEDS: 0.9 % Sodium Chloride Flush 10 ML SYRINGE 5 ML IVFLUSH ×3 (09:07→20:42)
[2023-05-09] MEDS: 0.9 % Sodium Chloride Flush 3 ML SYRINGE IVFLUSH ×3 (09:07→20:42)
--- NOTE | 2023-05-09 12:45 | P.PNIM_ITS ---
Subjective Subjective Date of Service: 05/09/23 Interval History: no new c/o lying comfortably. Review of Systems Review of Systems: Yes all other systems are reviewed and are negative Physical Exam 2 Vital Signs: Vital Signs: Last Vital Signs Temp 97.7 F 05/09/23 08:00 Pulse 80 05/09/23 11:59 Resp 18 05/09/23 08:00 BP 120/60 05/09/23 11:59 Pulse Ox 98 05/09/23 11:59 O2 Del Method Room Air 05/09/23 08:00 O2 Flow Rate 2 04/28/23 07:46 Oxygen Flow Rate 2 04/27/23 13:32 BMI result Body Mass Index 21.4 Gen: in no acute distress Lungs: clear to auscultation bilaterally Heart: regular rate and rhythm, no murmurs Abd: soft, non-tender, non-distended Ext: no edema, L AKA with fabian in place clean/dry/intact Skin: warm/well-perfused, stage 4 pressure injury over R hip, stage 3 pressure injury over L hip, unstageable R ischial pressure injury Neuro: alert and oriented x3, no focal findings Psych: appropriate affect Objective Data Active Medications Acetaminophen (Acetaminophen 325 Mg Tablet) 650 mg PO Q6H PRN PRN Reason: Pain, Mild (Pain Scale 1-3) Last Admin: 05/06/23 15:48 Dose: 650 mg Documented By: DAVI Amiodarone HCl (Amiodarone Hcl 200 Mg Tablet) 200 mg PO DAILY [facility] Last Admin: 05/09/23 09:06 Dose: 200 mg Documented By: CAITIE Apixaban (Apixaban 5 Mg Tablet) 5 mg PO BID [facility] Last Admin: 05/09/23 09:06 Dose: 5 mg Documented By: CAITIE Aspirin (Aspirin Enteric Coated 81 Mg Tablet.) 81 mg PO DAILY [facility] Last Admin: 05/09/23 09:06 Dose: 81 mg Documented By: CAITIE Atorvastatin Calcium (Atorvastatin Calcium 40 Mg Tablet) 40 mg PO BEDTIME [facility] Last Admin: 05/08/23 19:52 Dose: 40 mg Documented By: LAFLAMC Benzonatate (Benzonatate 100 Mg Capsule) 100 mg PO TID PRN PRN Reason: Cough Docusate Sodium (Docusate Sodium 100 Mg Capsule) 100 mg PO DAILY PRN PRN Reason: Constipation Last Admin: 05/03/23 08:39 Dose: 100 mg Documented By: SOFY Furosemide (Furosemide 20 Mg Tablet) 20 mg PO DAILY [facility]; Protocol Last Admin: 05/09/23 09:06 Dose: 20 mg Documented By: CAITIE Meropenem 1 gm/ Sodium (Chloride) 100 mls @ 200 mls/hr IV Q8H [facility] Last Infusion: 05/09/23 11:39 Dose: Infused Documented By: CAITIE Levetiracetam (Levetiracetam 500 Mg Tablet) 500 mg PO BID [facility] Last Admin: 05/09/23 09:06 Dose: 500 mg Documented By: CAITIE Melatonin (Melatonin 3 Mg Tablet) 6 mg PO BEDTIME PRN PRN Reason: Insomnia Last Admin: 05/05/23 20:38 Dose: 6 mg Documented By: LOLIS Metoprolol Succinate (Metoprolol Succinate Er 25 Mg Tab.Er.24h) 25 mg PO DAILY [facility]; Protocol Last Admin: 05/09/23 09:06 Dose: 25 mg Documented By: CAITIE Nicotine (Nicotine 21 Mg Patch.Td24) 21 mg TRANSDERMA DAILY [facility] Last Admin: 05/09/23 09:09 Dose: Not Given Documented By: CAITIE Non-Admin Reason: Patient Refused Ondansetron HCl (Ondansetron Hcl 4 Mg/2 Ml Vial) 4 mg IVPUSH Q8H PRN PRN Reason: Nausea and Vomiting Oxycodone HCl (Oxycodone Hcl Immed Release 5 Mg Tablet) 10 mg PO Q4H PRN PRN Reason: severe pain Last Admin: 05/09/23 09:06 Dose: 10 mg Documented By: CAITIE Sodium Chloride (0.9 % Sodium Chloride Flush 3 Ml Syringe) 3 ml IVFLUSH QSHIFT [facility] Last Admin: 05/09/23 09:07 Dose: 3 ml Documented By: CAITIE Sodium Chloride (0.9 % Sodium Chloride Flush 10 Ml Syringe) 5 ml IVFLUSH TID [facility] Last Admin: 05/09/23 09:07 Dose: 5 ml Documented By: CAITIE Labs 05/03/23 05:51 05/08/23 06:31 Assessment and Plan (1) Seizure: Status: Acute Plan Day 10: 68yo with paroxysmal AF not compliant with apixaban, CAD s/p CABG, PAD s/p AKA, hx prior CVAs [most recently in July 2022], seizure disorder, HTN, HLD, COPD not on home O2, polysubstance abuse. presents to ED after reported seizure at home chronic nonhealing wounds with question of osteomyelitis exposed bone at L AKA site subacute CVA on CT hypotension on 05/02/23 fluid-responsive; lactate normalized; held metoprolol succinate + clonidine + furosemide. started metoprolol succinate + furosemide sepsis due to cellulitis and likely osteomyelitis stage 4 pressure injury over R hip, stage 3 pressure injury over L hip, unstageable R ischial pressure injury vanco trough 17 (05/05/23) currently on d10 of vanco + pip-shameka; not bacteremic. place PICC and seek STR placement - suspect osteomyelitis; will need 6 wk IV ABX. Per IR, given polysubstance abuse, will not place PICC until STR placement is ensured - wound care recommendations: Left Residual Leg - Cleanse and irrigate with NS, apply single layer Cuticerin Impregnated Mesh (Available in Storeroom) cover with Dry gauze and ABD Pad followed by wrap. Change daily , Bilateral Hip / Trochanter and Right Ischium / buttocks - Cleanse and irrigate with NS, Pat dry. Apply barrier wip to periwound. Cover and lightly pack wound beds with Alginate - be sure to leave a wick for easy removal. cover with foam dressing. Change Daily. L AKA wound with protruding bone- Gen Surg consulted, revised AKA stump on 04/30/23, following postoperatively surgery following seizure due to noncompliance-continue levetiracetam, continue outpt dosing subacute CVA, L cerebellar- resumed anticoagulation with apixaban + resumed ASA paroxysmal AF- currently NSR- per Cardiology, d/c'ed amiodarone continue noncompliance. continue apixaban and metoprolol succinate. NSVT-ischemic cardiomyopathy/CAD: today had 28 beat episode, asymptomatic Asymptomatic, potassium is 3.3 , magnesium is 2 Will add potassium. continue metoprolol succinate and furosemide, ASA, statin Discussed with Cardiology follow-up they will follow-up in morning. hypoK- repleted and resolved. polysubstance abuse- on oxycodone for pain control, was using heroin daily for pain control, Addiction Medicine consulted but pt did not express interest in methadone. VTE ppx- apixaban. dispo- will need .STR patient requires continued inpatient hospitalization for the following reasons: placement. Quality Stroke Does the patient have a stroke diagnosis?: No Reason for No Anti-thrombotic by Day Two: Contraindicated VTE Prior VTE?: No VTE Risk Level:: Medical - moderate - high VTE Device Contraindication: Treatment Not Indicated VTE Drug Contraindication: N/A - Med Ordered
--- NOTE | 2023-05-09 14:42 | MHC.CLN ---
F/U PO INTAKE EXCELLENT DIET RX:2 GRAM SODIUM-APPROPRIATE PT RECEIVING ENSURE MAX BID TO [facility]OM[facility] WOUND HEALING PROVIDES 300 KCALS, 60 G PROTEIN MONITOR PO INTAKE AND ENCOURAGE SUPPLEMENT
--- NOTE | 2023-05-09 14:49 | MHC.CM.PN ---
CM explored options to assist pt to get on a secondary ins. Ask pt if his has one and he said that she does. I asked if he could ask her if he can get on hers, he said he will call her about it.
--- NOTE | 2023-05-09 16:05 | MHC.CM.PN ---
Pt informed CM that his does not have a supplemental health insurance policy. He asked how he goes about getting one. CM obtained information on local Medicare supplemental plans, with prices and phone #'s and gave list to Pt. he said he will call them, he was appreciative.
[2023-05-09] MEDS: Atorvastatin Calcium 40 MG TABLET PO (20:38)
[2023-05-09] MEDS: Melatonin 3 MG TABLET 6 MG PO (20:38)
[2023-05-10] MEDS: oxyCODONE HCl Immed Release 5 MG TABLET 10 MG PO ×5 (00:30→20:57)
[2023-05-10 03:16] VITALS: BP 125/61; PULSE 65; RESP 18; TEMP 36.6; O2SAT 97
[2023-05-10 08:00] VITALS: BP 101/55; PULSE 60; RESP 20; TEMP 36.6; O2SAT 97
[2023-05-10] MEDS: Amiodarone HCL 200 MG TABLET PO (09:40)
[2023-05-10] MEDS: Furosemide 20 MG TABLET PO (09:40)
[2023-05-10] MEDS: levETIRAcetam 500 MG TABLET PO ×2 (09:40→20:57)
[2023-05-10] MEDS: Metoprolol Succinate ER 25 MG TAB.ER.24H PO (09:40)
[2023-05-10] MEDS: Apixaban 5 MG TABLET PO ×2 (09:41→20:57)
[2023-05-10] MEDS: 0.9 % Sodium Chloride Flush 10 ML SYRINGE 5 ML IVFLUSH ×3 (09:41→20:58)
[2023-05-10] MEDS: 0.9 % Sodium Chloride Flush 3 ML SYRINGE IVFLUSH ×2 (09:41→23:48)
[2023-05-10] MEDS: Aspirin Enteric Coated 81 MG TABLET.DR PO (09:41)
--- NOTE | 2023-05-10 11:43 | HO.PM.IMPN ---
Subjective Subjective Date of Service: 05/10/23 Interval History: no new c/o eating breakfast Review of Systems Review of Systems: Yes all other systems are reviewed and are negative Physical Exam Vital Signs: Vital Signs: Last Vital Signs Temp 97.8 F 05/10/23 08:00 Pulse 60 05/10/23 08:00 Resp 20 05/10/23 08:00 BP 101/55 L 05/10/23 08:00 Pulse Ox 97 05/10/23 08:00 O2 Del Method Room Air 05/10/23 08:00 O2 Flow Rate 2 04/28/23 07:46 Oxygen Flow Rate 2 04/27/23 13:32 BMI result Body Mass Index 21.4 Gen: in no acute distress Lungs: clear to auscultation bilaterally Heart: regular rate and rhythm, no murmurs Abd: soft, non-tender, non-distended Ext: no edema, L AKA with fabian in place clean/dry/intact Skin: warm/well-perfused, stage 4 pressure injury over R hip, stage 3 pressure injury over L hip, unstageable R ischial pressure injury Neuro: alert and oriented x3, no focal findings Psych: appropriate affect Objective Data Active Medications Acetaminophen (Acetaminophen 325 Mg Tablet) 650 mg PO Q6H PRN PRN Reason: Pain, Mild (Pain Scale 1-3) Last Admin: 05/06/23 15:48 Dose: 650 mg Documented By: DAVI Amiodarone HCl (Amiodarone Hcl 200 Mg Tablet) 200 mg PO DAILY [facility] Last Admin: 05/10/23 09:40 Dose: 200 mg Documented By: CAITIE Apixaban (Apixaban 5 Mg Tablet) 5 mg PO BID [facility] Last Admin: 05/10/23 09:41 Dose: 5 mg Documented By: CAITEI Aspirin (Aspirin Enteric Coated 81 Mg Tablet.) 81 mg PO DAILY [facility] Last Admin: 05/10/23 09:41 Dose: 81 mg Documented By: CAITIE Atorvastatin Calcium (Atorvastatin Calcium 40 Mg Tablet) 40 mg PO BEDTIME [facility] Last Admin: 05/09/23 20:38 Dose: 40 mg Documented By: JOANNE Benzonatate (Benzonatate 100 Mg Capsule) 100 mg PO TID PRN PRN Reason: Cough Docusate Sodium (Docusate Sodium 100 Mg Capsule) 100 mg PO DAILY PRN PRN Reason: Constipation Last Admin: 05/03/23 08:39 Dose: 100 mg Documented By: SOFY Furosemide (Furosemide 20 Mg Tablet) 20 mg PO DAILY [facility]; Protocol Last Admin: 05/10/23 09:40 Dose: 20 mg Documented By: CAITIE Meropenem 1 gm/ Sodium (Chloride) 100 mls @ 200 mls/hr IV Q8H [facility] Last Infusion: 05/10/23 03:50 Dose: Infused Documented By: JOANNE Levetiracetam (Levetiracetam 500 Mg Tablet) 500 mg PO BID [facility] Last Admin: 05/10/23 09:40 Dose: 500 mg Documented By: CAITIE Melatonin (Melatonin 3 Mg Tablet) 6 mg PO BEDTIME PRN PRN Reason: Insomnia Last Admin: 05/09/23 20:38 Dose: 6 mg Documented By: JOANNE Metoprolol Succinate (Metoprolol Succinate Er 25 Mg Tab.Er.24h) 25 mg PO DAILY [facility]; Protocol Last Admin: 05/10/23 09:40 Dose: 25 mg Documented By: CAITIE Nicotine (Nicotine 21 Mg Patch.Td24) 21 mg TRANSDERMA DAILY [facility] Last Admin: 05/10/23 09:43 Dose: Not Given Documented By: CAITIE Non-Admin Reason: Patient Refused Ondansetron HCl (Ondansetron Hcl 4 Mg/2 Ml Vial) 4 mg IVPUSH Q8H PRN PRN Reason: Nausea and Vomiting Oxycodone HCl (Oxycodone Hcl Immed Release 5 Mg Tablet) 10 mg PO Q4H PRN PRN Reason: severe pain Last Admin: 05/10/23 09:41 Dose: 10 mg Documented By: CAITIE Sodium Chloride (0.9 % Sodium Chloride Flush 3 Ml Syringe) 3 ml IVFLUSH QSHIFT [facility] Last Admin: 05/10/23 09:41 Dose: 3 ml Documented By: CAITIE Sodium Chloride (0.9 % Sodium Chloride Flush 10 Ml Syringe) 5 ml IVFLUSH TID [facility] Last Admin: 05/10/23 09:41 Dose: 5 ml Documented By: CAITIE Labs 05/03/23 05:51 05/08/23 06:31 Assessment and Plan (1) Osteomyelitis: Status: Acute Plan Day 11: 68yo with paroxysmal AF not compliant with apixaban, CAD s/p CABG, PAD s/p AKA, hx prior CVAs [most recently in July 2022], seizure disorder, HTN, HLD, COPD not on home O2, polysubstance abuse. presents to ED after reported seizure at home chronic nonhealing wounds with question of osteomyelitis exposed bone at L AKA site subacute CVA on CT hypotension on 05/02/23 fluid-responsive; lactate normalized; held metoprolol succinate + clonidine + furosemide. started metoprolol succinate + furosemide sepsis due to cellulitis and likely osteomyelitis stage 4 pressure injury over R hip, stage 3 pressure injury over L hip, unstageable R ischial pressure injury vanco trough 17 (05/05/23) currently on d10 of vanco + pip-shameka; not bacteremic. place PICC and seek STR placement - suspect osteomyelitis; will need 6 wk IV ABX. Per IR, given polysubstance abuse, will not place PICC until STR placement is ensured - wound care recommendations: Left Residual Leg - Cleanse and irrigate with NS, apply single layer Cuticerin Impregnated Mesh (Available in Storeroom) cover with Dry gauze and ABD Pad followed by wrap. Change daily , Bilateral Hip / Trochanter and Right Ischium / buttocks - Cleanse and irrigate with NS, Pat dry. Apply barrier wip to periwound. Cover and lightly pack wound beds with Alginate - be sure to leave a wick for easy removal. cover with foam dressing. Change Daily. L AKA wound with protruding bone- Gen Surg consulted, revised AKA stump on 04/30/23, following postoperatively surgery following seizure due to noncompliance-continue levetiracetam, continue outpt dosing subacute CVA, L cerebellar- resumed anticoagulation with apixaban + resumed ASA paroxysmal AF- currently NSR- per Cardiology, d/c'ed amiodarone continue noncompliance. continue apixaban and metoprolol succinate. NSVT-ischemic cardiomyopathy/CAD: today had 28 beat episode, asymptomatic Asymptomatic, potassium is 3.3 , magnesium is 2 Will add potassium. continue metoprolol succinate and furosemide, ASA, statin Discussed with Cardiology follow-up they will follow-up in morning. hypoK- repleted and resolved. polysubstance abuse- on oxycodone for pain control, was using heroin daily for pain control, Addiction Medicine consulted but pt did not express interest in methadone. VTE ppx- apixaban. dispo- will need .STR patient requires continued inpatient hospitalization for the following reasons: placement. Quality Stroke Does the patient have a stroke diagnosis?: No Reason for No Anti-thrombotic by Day Two: Contraindicated VTE Prior VTE?: No VTE Risk Level:: Medical - moderate - high VTE Device Contraindication: Treatment Not Indicated VTE Drug Contraindication: N/A - Med Ordered
[2023-05-10 12:00] VITALS: PULSE 66; RESP 20; TEMP 36.7; O2SAT 93
[2023-05-10 15:52] VITALS: BP 129/57; PULSE 58; RESP 18; TEMP 36.8; O2SAT 97
[2023-05-10 19:57] VITALS: BP 125/78; PULSE 64; RESP 16; TEMP 37.1; O2SAT 98
[2023-05-10] MEDS: Atorvastatin Calcium 40 MG TABLET PO (20:57)
[2023-05-10 23:31] VITALS: BP 101/55; PULSE 67; RESP 18; TEMP 36.7; O2SAT 97
[2023-05-11 03:51] VITALS: BP 118/60; PULSE 61; RESP 18; TEMP 36.1; O2SAT 99
[2023-05-11 07:43] VITALS: BP 122/57; PULSE 73; RESP 18; TEMP 36.9; O2SAT 97
[2023-05-11] MEDS: levETIRAcetam 500 MG TABLET PO ×2 (08:34→20:03)
[2023-05-11] MEDS: Apixaban 5 MG TABLET PO ×2 (08:34→20:03)
[2023-05-11] MEDS: Aspirin Enteric Coated 81 MG TABLET.DR PO (08:34)
[2023-05-11] MEDS: Metoprolol Succinate ER 25 MG TAB.ER.24H PO (08:35)
[2023-05-11] MEDS: Furosemide 20 MG TABLET PO (08:35)
[2023-05-11] MEDS: Amiodarone HCL 200 MG TABLET PO (08:35)
[2023-05-11] MEDS: 0.9 % Sodium Chloride Flush 3 ML SYRINGE IVFLUSH ×2 (08:35→15:23)
[2023-05-11] MEDS: Nicotine 21 MG PATCH.TD24 TRANSDERMA (08:35)
[2023-05-11] MEDS: 0.9 % Sodium Chloride Flush 10 ML SYRINGE 5 ML IVFLUSH ×3 (08:36→20:04)
[2023-05-11] MEDS: oxyCODONE HCl Immed Release 5 MG TABLET 10 MG PO ×3 (08:42→20:07)
[2023-05-11 12:00] VITALS: BP 120/63; PULSE 86; RESP 20; TEMP 36.8; O2SAT 98
--- NOTE | 2023-05-11 13:41 | HO.PM.IMPN ---
Subjective Subjective Date of Service: 05/11/23 Interval History: no new c/o- no fever or chills Review of Systems Review of Systems: Yes all other systems are reviewed and are negative Physical Exam Vital Signs: Vital Signs: Last Vital Signs Temp 98.2 F 05/11/23 12:00 Pulse 86 05/11/23 12:00 Resp 20 05/11/23 12:00 BP 120/63 05/11/23 12:00 Pulse Ox 98 05/11/23 12:00 O2 Del Method Room Air 05/11/23 12:00 O2 Flow Rate 2 04/28/23 07:46 Oxygen Flow Rate 2 04/27/23 13:32 BMI result Body Mass Index 21.4 Gen: in no acute distress Lungs: clear to auscultation bilaterally Heart: regular rate and rhythm, no murmurs Abd: soft, non-tender, non-distended Ext: no edema, L AKA with fabian in place clean/dry/intact Skin: warm/well-perfused, stage 4 pressure injury over R hip, stage 3 pressure injury over L hip,R ischial pressure injury Neuro: alert and oriented x3, no focal findings Psych: appropriate affect. Objective Data Active Medications Acetaminophen (Acetaminophen 325 Mg Tablet) 650 mg PO Q6H PRN PRN Reason: Pain, Mild (Pain Scale 1-3) Last Admin: 05/06/23 15:48 Dose: 650 mg Documented By: DAVI Amiodarone HCl (Amiodarone Hcl 200 Mg Tablet) 200 mg PO DAILY [facility] Last Admin: 05/11/23 08:35 Dose: 200 mg Documented By: THAO Apixaban (Apixaban 5 Mg Tablet) 5 mg PO BID [facility] Last Admin: 05/11/23 08:34 Dose: 5 mg Documented By: THAO Aspirin (Aspirin Enteric Coated 81 Mg Tablet.) 81 mg PO DAILY [facility] Last Admin: 05/11/23 08:34 Dose: 81 mg Documented By: THAO Atorvastatin Calcium (Atorvastatin Calcium 40 Mg Tablet) 40 mg PO BEDTIME [facility] Last Admin: 05/10/23 20:57 Dose: 40 mg Documented By: SUSAN Benzonatate (Benzonatate 100 Mg Capsule) 100 mg PO TID PRN PRN Reason: Cough Docusate Sodium (Docusate Sodium 100 Mg Capsule) 100 mg PO DAILY PRN PRN Reason: Constipation Last Admin: 05/03/23 08:39 Dose: 100 mg Documented By: SOFY Furosemide (Furosemide 20 Mg Tablet) 20 mg PO DAILY [facility]; Protocol Last Admin: 05/11/23 08:35 Dose: 20 mg Documented By: THAO Meropenem 1 gm/ Sodium (Chloride) 100 mls @ 200 mls/hr IV Q8H [facility] Last Infusion: 05/11/23 12:09 Dose: Infused Documented By: THAO Levetiracetam (Levetiracetam 500 Mg Tablet) 500 mg PO BID [facility] Last Admin: 05/11/23 08:34 Dose: 500 mg Documented By: THAO Melatonin (Melatonin 3 Mg Tablet) 6 mg PO BEDTIME PRN PRN Reason: Insomnia Last Admin: 05/09/23 20:38 Dose: 6 mg Documented By: JOANNE Metoprolol Succinate (Metoprolol Succinate Er 25 Mg Tab.Er.24h) 25 mg PO DAILY [facility]; Protocol Last Admin: 05/11/23 08:35 Dose: 25 mg Documented By: THAO Nicotine (Nicotine 21 Mg Patch.Td24) 21 mg TRANSDERMA DAILY [facility] Last Admin: 05/11/23 08:35 Dose: 21 mg Documented By: THAO Ondansetron HCl (Ondansetron Hcl 4 Mg/2 Ml Vial) 4 mg IVPUSH Q8H PRN PRN Reason: Nausea and Vomiting Oxycodone HCl (Oxycodone Hcl Immed Release 5 Mg Tablet) 10 mg PO Q4H PRN PRN Reason: severe pain Last Admin: 05/11/23 08:42 Dose: 10 mg Documented By: THAO Sodium Chloride (0.9 % Sodium Chloride Flush 3 Ml Syringe) 3 ml IVFLUSH QSHIFT [facility] Last Admin: 05/11/23 08:35 Dose: 3 ml Documented By: THAO Sodium Chloride (0.9 % Sodium Chloride Flush 10 Ml Syringe) 5 ml IVFLUSH TID [facility] Last Admin: 05/11/23 08:36 Dose: 5 ml Documented By: THAO Labs 05/03/23 05:51 05/08/23 06:31 Assessment and Plan (1) Osteomyelitis: Status: Acute Plan 68yo with paroxysmal AF not compliant with apixaban, CAD s/p CABG, PAD s/p AKA, hx prior CVAs [most recently in July 2022], seizure disorder, HTN, HLD, COPD not on home O2, polysubstance abuse. presents to ED after reported seizure at home chronic nonhealing wounds with question of osteomyelitis exposed bone at L AKA site subacute CVA on CT hypotension on 05/02/23 fluid-responsive; lactate normalized; held metoprolol succinate + clonidine + furosemide. started metoprolol succinate + furosemide sepsis due to cellulitis and likely osteomyelitis stage 4 pressure injury over R hip, stage 3 pressure injury over L hip, unstageable R ischial pressure injury vanco trough 17 (05/05/23) currently on d10 of vanco + pip-shameka; not bacteremic. place PICC and seek STR placement - suspect osteomyelitis; will need 6 wk IV ABX. Per IR, given polysubstance abuse, will not place PICC until STR placement is ensured - wound care recommendations: Left Residual Leg - Cleanse and irrigate with NS, apply single layer Cuticerin Impregnated Mesh (Available in Storeroom) cover with Dry gauze and ABD Pad followed by wrap. Change daily , Bilateral Hip / Trochanter and Right Ischium / buttocks - Cleanse and irrigate with NS, Pat dry. Apply barrier wip to periwound. Cover and lightly pack wound beds with Alginate - be sure to leave a wick for easy removal. cover with foam dressing. Change Daily. added picc line. L AKA wound with protruding bone- Gen Surg consulted, revised AKA stump on 04/30/23, following postoperatively surgery following seizure due to noncompliance-continue levetiracetam, continue outpt dosing subacute CVA, L cerebellar- resumed anticoagulation with apixaban + resumed ASA paroxysmal AF- currently NSR- per Cardiology, d/c'ed amiodarone continue noncompliance. continue apixaban and metoprolol succinate. NSVT-ischemic cardiomyopathy/CAD: today had 28 beat episode, asymptomatic Asymptomatic, potassium is 3.3 , magnesium is 2 Will add potassium. continue metoprolol succinate and furosemide, ASA, statin Discussed with Cardiology follow-up they will follow-up in morning. hypoK- repleted and resolved. polysubstance abuse- on oxycodone for pain control, was using heroin daily for pain control, Addiction Medicine consulted but pt did not express interest in methadone. VTE ppx- apixaban. dispo- will need STR patient requires continued inpatient hospitalization for the following reasons: placement. Quality Stroke Does the patient have a stroke diagnosis?: No Reason for No Anti-thrombotic by Day Two: Contraindicated VTE Prior VTE?: No VTE Risk Level:: Medical - moderate - high VTE Device Contraindication: Treatment Not Indicated VTE Drug Contraindication: N/A - Med Ordered
[2023-05-11 16:00] VITALS: BP 96/53; PULSE 70; RESP 18; TEMP 36.3; O2SAT 99
[2023-05-11 20:00] VITALS: BP 104/56; PULSE 70; RESP 17; TEMP 36.1; O2SAT 95
[2023-05-11] MEDS: Atorvastatin Calcium 40 MG TABLET PO (20:03)
[2023-05-11 23:36] VITALS: BP 100/58; PULSE 72; RESP 18; TEMP 36.7; O2SAT 95
[2023-05-12] MEDS: oxyCODONE HCl Immed Release 5 MG TABLET 10 MG PO ×4 (03:02→17:12)
[2023-05-12] MEDS: Melatonin 3 MG TABLET 6 MG PO (03:02)
[2023-05-12 03:41] VITALS: BP 128/60; PULSE 65; RESP 18; TEMP 36.7; O2SAT 97
[2023-05-12 08:00] VITALS: BP 92/35; PULSE 65; RESP 16; TEMP 36.4; O2SAT 98
[2023-05-12] MEDS: 0.9 % Sodium Chloride Flush 10 ML SYRINGE 5 ML IVFLUSH ×3 (08:44→20:43)
[2023-05-12] MEDS: 0.9 % Sodium Chloride Flush 3 ML SYRINGE IVFLUSH ×2 (08:44→14:46)
[2023-05-12] MEDS: Apixaban 5 MG TABLET PO ×2 (08:45→20:43)
[2023-05-12] MEDS: Aspirin Enteric Coated 81 MG TABLET.DR PO (08:45)
[2023-05-12] MEDS: Amiodarone HCL 200 MG TABLET PO (08:45)
[2023-05-12] MEDS: levETIRAcetam 500 MG TABLET PO ×2 (08:45→20:43)
[2023-05-12 12:00] VITALS: BP 99/57; PULSE 64; TEMP 36.4; O2SAT 98
[2023-05-12] MEDS: Acetaminophen 325 MG TABLET 650 MG PO (12:41)
--- NOTE | 2023-05-12 14:36 | P.PNIM_ITS ---
Subjective Subjective Date of Service: 05/12/23 Interval History: no new c/o- no fever or chills Review of Systems Review of Systems: Yes all other systems are reviewed and are negative Physical Exam 2 Vital Signs: Vital Signs: Last Vital Signs Temp 97.6 F 05/12/23 12:00 Pulse 64 05/12/23 12:00 Resp 16 05/12/23 08:00 BP 99/57 L 05/12/23 12:00 Pulse Ox 98 05/12/23 12:00 O2 Del Method Room Air 05/12/23 12:00 O2 Flow Rate 2 04/28/23 07:46 Oxygen Flow Rate 2 04/27/23 13:32 BMI result Body Mass Index 21.4 Gen: in no acute distress Lungs: clear to auscultation bilaterally Heart: regular rate and rhythm, no murmurs Abd: soft, non-tender, non-distended Ext: no edema, L AKA with fabian in place clean/dry/intact Skin: warm/well-perfused, R hip, pressure injury over L hip,R ischial pressure injury-please see wound care notes. Neuro: alert and oriented x3, no focal findings Psych: appropriate affect. Objective Data Active Medications Acetaminophen (Acetaminophen 325 Mg Tablet) 650 mg PO Q6H PRN PRN Reason: Pain, Mild (Pain Scale 1-3) Last Admin: 05/12/23 12:41 Dose: 650 mg Documented By: KRISHNA Amiodarone HCl (Amiodarone Hcl 200 Mg Tablet) 200 mg PO DAILY [facility] Last Admin: 05/12/23 08:45 Dose: 200 mg Documented By: ADRIANO Apixaban (Apixaban 5 Mg Tablet) 5 mg PO BID [facility] Last Admin: 05/12/23 08:45 Dose: 5 mg Documented By: ADRIANO Aspirin (Aspirin Enteric Coated 81 Mg Tablet.) 81 mg PO DAILY [facility] Last Admin: 05/12/23 08:45 Dose: 81 mg Documented By: ADRIANO Atorvastatin Calcium (Atorvastatin Calcium 40 Mg Tablet) 40 mg PO BEDTIME [facility] Last Admin: 05/11/23 20:03 Dose: 40 mg Documented By: FÉLIX Benzonatate (Benzonatate 100 Mg Capsule) 100 mg PO TID PRN PRN Reason: Cough Docusate Sodium (Docusate Sodium 100 Mg Capsule) 100 mg PO DAILY PRN PRN Reason: Constipation Last Admin: 05/03/23 08:39 Dose: 100 mg Documented By: RYAN-RIVLANNY Furosemide (Furosemide 20 Mg Tablet) 20 mg PO DAILY [facility]; Protocol Last Admin: 05/12/23 08:40 Dose: Not Given Documented By: ADRIANO Non-Admin Reason: Decreased Blood Pressure Meropenem 1 gm/ Sodium (Chloride) 100 mls @ 200 mls/hr IV Q8H [facility] Last Infusion: 05/12/23 11:20 Dose: Infused Documented By: ADRIANO Levetiracetam (Levetiracetam 500 Mg Tablet) 500 mg PO BID [facility] Last Admin: 05/12/23 08:45 Dose: 500 mg Documented By: ADRIANO Melatonin (Melatonin 3 Mg Tablet) 6 mg PO BEDTIME PRN PRN Reason: Insomnia Last Admin: 05/12/23 03:02 Dose: 6 mg Documented By: FÉLIX Metoprolol Succinate (Metoprolol Succinate Er 25 Mg Tab.Er.24h) 25 mg PO DAILY [facility]; Protocol Last Admin: 05/12/23 08:40 Dose: Not Given Documented By: ADRIANO Non-Admin Reason: Decreased Blood Pressure Nicotine (Nicotine 21 Mg Patch.Td24) 21 mg TRANSDERMA DAILY [facility] Last Admin: 05/12/23 08:46 Dose: Not Given Documented By: ADRIANO Non-Admin Reason: Patient Refused Ondansetron HCl (Ondansetron Hcl 4 Mg/2 Ml Vial) 4 mg IVPUSH Q8H PRN PRN Reason: Nausea and Vomiting Oxycodone HCl (Oxycodone Hcl Immed Release 5 Mg Tablet) 10 mg PO Q4H PRN PRN Reason: severe pain Last Admin: 05/12/23 12:41 Dose: 10 mg Documented By: KRISHNA Sodium Chloride (0.9 % Sodium Chloride Flush 3 Ml Syringe) 3 ml IVFLUSH QSHIFT [facility] Last Admin: 05/12/23 08:44 Dose: 3 ml Documented By: ADRIANO Sodium Chloride (0.9 % Sodium Chloride Flush 10 Ml Syringe) 5 ml IVFLUSH TID [facility] Last Admin: 05/12/23 08:44 Dose: 5 ml Documented By: ADRIANO Labs 05/03/23 05:51 05/08/23 06:31 Assessment and Plan (1) Osteomyelitis: Status: Acute Plan 68yo with paroxysmal AF not compliant with apixaban, CAD s/p CABG, PAD s/p AKA, hx prior CVAs [most recently in July 2022], seizure disorder, HTN, HLD, COPD not on home O2, polysubstance abuse. presents to ED after reported seizure at home chronic nonhealing wounds with question of osteomyelitis exposed bone at L AKA site subacute CVA on CT hypotension on 05/02/23 fluid-responsive; lactate normalized; held metoprolol succinate + clonidine + furosemide. started metoprolol succinate + furosemide sepsis due to cellulitis and likely osteomyelitis stage 4 pressure injury over R hip, stage 3 pressure injury over L hip, unstageable R ischial pressure injury vanco trough 17 (05/05/23) currently on d10 of vanco + pip-shameka; not bacteremic. place PICC and seek STR placement - suspect osteomyelitis; will need 6 wk IV ABX. Per IR, given polysubstance abuse, will not place PICC until STR placement is ensured - wound care recommendations: Left Residual Leg - Cleanse and irrigate with NS, apply single layer Cuticerin Impregnated Mesh (Available in Storeroom) cover with Dry gauze and ABD Pad followed by wrap. Change daily , Bilateral Hip / Trochanter and Right Ischium / buttocks - Cleanse and irrigate with NS, Pat dry. Apply barrier wip to periwound. Cover and lightly pack wound beds with Alginate - be sure to leave a wick for easy removal. cover with foam dressing. Change Daily. has picc line and Id recomended Doripenem (started on 05/08/23)-needs for 6 weeks, woundcare followup L AKA wound with protruding bone- Gen Surg consulted, revised AKA stump on 04/30/23, following postoperatively surgery following seizure due to noncompliance-continue levetiracetam, continue outpt dosing subacute CVA, L cerebellar- resumed anticoagulation with apixaban + resumed ASA paroxysmal AF- currently NSR- per Cardiology, d/c'ed amiodarone continue noncompliance. continue apixaban and metoprolol succinate. NSVT-ischemic cardiomyopathy/CAD: had few nsvt runs during this admission electrolytes seems fine asymptomatic d/w cardio:continue metoprolol succinate and furosemide, ASA, statin Discussed with Cardiology follow-up they will follow-up in morning. hypoK- repleted and resolved. polysubstance abuse- on oxycodone for pain control, was using heroin daily for pain control, Addiction Medicine consulted but pt did not express interest in methadone. VTE ppx- apixaban. dispo- will need STR patient requires continued inpatient hospitalization for the following reasons: placement.has picc line and Id recomended Doripenem (started on 05/08/23)-needs for 6 weeks, woundcare followup Quality Stroke Does the patient have a stroke diagnosis?: No Reason for No Anti-thrombotic by Day Two: Contraindicated VTE Prior VTE?: No VTE Risk Level:: Medical - moderate - high VTE Device Contraindication: Treatment Not Indicated VTE Drug Contraindication: N/A - Med Ordered
--- NOTE | 2023-05-12 15:37 | MHC.CLN ---
F/U PO INTAKE CONTINUES EXCELLENT, USUALLY 75-100%. DIET RX:2 GRAM SODIUM-APPROPRIATE PT RECEIVING ENSURE MAX BID TO PROMOTE WOUND HEALING PROVIDES 300 KCALS, 60 G PROTEIN. PATIENT WITH MULTIPLE PRESSURE INJURIES. MONITOR PO INTAKE AND ENCOURAGE SUPPLEMENT.
[2023-05-12 16:00] VITALS: BP 94/42; PULSE 75; RESP 16; TEMP 36.8; O2SAT 97
[2023-05-12 19:22] VITALS: BP 140/85; PULSE 68; RESP 18; TEMP 36.6; O2SAT 100
[2023-05-12] MEDS: Atorvastatin Calcium 40 MG TABLET PO (20:43)
[2023-05-12 22:56] VITALS: BP 124/75; PULSE 74; RESP 18; TEMP 36.5; O2SAT 98
[2023-05-13 04:00] VITALS: BP 143/86; PULSE 80; RESP 18; TEMP 36.9; O2SAT 97
[2023-05-13 08:00] VITALS: BP 105/67; PULSE 89; RESP 18; TEMP 36.1; O2SAT 96
[2023-05-13] MEDS: Metoprolol Succinate ER 25 MG TAB.ER.24H PO (08:33)
[2023-05-13] MEDS: Apixaban 5 MG TABLET PO ×2 (08:33→20:36)
[2023-05-13] MEDS: levETIRAcetam 500 MG TABLET PO ×2 (08:33→20:36)
[2023-05-13] MEDS: Aspirin Enteric Coated 81 MG TABLET.DR PO (08:33)
[2023-05-13] MEDS: Furosemide 20 MG TABLET PO (08:33)
[2023-05-13] MEDS: Amiodarone HCL 200 MG TABLET PO (08:33)
[2023-05-13] MEDS: 0.9 % Sodium Chloride Flush 10 ML SYRINGE 5 ML IVFLUSH ×3 (08:34→20:43)
[2023-05-13] MEDS: 0.9 % Sodium Chloride Flush 3 ML SYRINGE IVFLUSH ×3 (08:34→23:41)
[2023-05-13 11:21] VITALS: BP 102/61; PULSE 95; RESP 20; TEMP 36.6; O2SAT 97
--- NOTE | 2023-05-13 14:46 | HO.PM.IMPN ---
Subjective Subjective Date of Service: 05/13/23 Interval History: No acute issues overnight. Tolerant of therapies Review of Systems Denies chest pain Denies shortness of breath Denies nausea vomiting diarrhea Denies fever chills Physical Exam Vital Signs: Vital Signs: Last Vital Signs Temp 97.9 F 05/13/23 11:21 Pulse 95 05/13/23 11:21 Resp 20 05/13/23 11:21 BP 102/61 05/13/23 11:21 Pulse Ox 97 05/13/23 11:21 O2 Del Method Room Air 05/13/23 11:21 O2 Flow Rate 2 04/28/23 07:46 Oxygen Flow Rate 2 04/27/23 13:32 BMI result Body Mass Index 21.4 Const: Other: Awake alert no acute distress Resp: Other: Clear to auscultation bilaterally no rales rhonchi or wheezes Cardio: Other: No S4; positive S1-S2; no S3 murmurs rubs or gallops GI: Other: Soft nontender nondistended normoactive bowel sounds Skin: Other: See admission pictures Extrem: Other: Left AKA; superficial left hip the cube; deep right hip to cue with granulation no necrotic tissue; right ischial ulceration Objective Data Active Medications Acetaminophen (Acetaminophen 325 Mg Tablet) 650 mg PO Q6H PRN PRN Reason: Pain, Mild (Pain Scale 1-3) Last Admin: 05/12/23 12:41 Dose: 650 mg Documented By: KRISHNA Amiodarone HCl (Amiodarone Hcl 200 Mg Tablet) 200 mg PO DAILY [facility] Last Admin: 05/13/23 08:33 Dose: 200 mg Documented By: KAYLAN Apixaban (Apixaban 5 Mg Tablet) 5 mg PO BID [facility] Last Admin: 05/13/23 08:33 Dose: 5 mg Documented By: KAYLAN Aspirin (Aspirin Enteric Coated 81 Mg Tablet.) 81 mg PO DAILY [facility] Last Admin: 05/13/23 08:33 Dose: 81 mg Documented By: KAYLAN Atorvastatin Calcium (Atorvastatin Calcium 40 Mg Tablet) 40 mg PO BEDTIME [facility] Last Admin: 05/12/23 20:43 Dose: 40 mg Documented By: FÉLIX Benzonatate (Benzonatate 100 Mg Capsule) 100 mg PO TID PRN PRN Reason: Cough Docusate Sodium (Docusate Sodium 100 Mg Capsule) 100 mg PO DAILY PRN PRN Reason: Constipation Last Admin: 05/03/23 08:39 Dose: 100 mg Documented By: RYAN-RIVLANNY Furosemide (Furosemide 20 Mg Tablet) 20 mg PO DAILY [facility]; Protocol Last Admin: 05/13/23 08:33 Dose: 20 mg Documented By: KAYLAN Meropenem 1 gm/ Sodium (Chloride) 100 mls @ 200 mls/hr IV Q8H [facility] Last Infusion: 05/13/23 11:05 Dose: Infused Documented By: KAYLAN Levetiracetam (Levetiracetam 500 Mg Tablet) 500 mg PO BID [facility] Last Admin: 05/13/23 08:33 Dose: 500 mg Documented By: KAYLAN Melatonin (Melatonin 3 Mg Tablet) 6 mg PO BEDTIME PRN PRN Reason: Insomnia Last Admin: 05/12/23 03:02 Dose: 6 mg Documented By: FÉLIX Metoprolol Succinate (Metoprolol Succinate Er 25 Mg Tab.Er.24h) 25 mg PO DAILY [facility]; Protocol Last Admin: 05/13/23 08:33 Dose: 25 mg Documented By: KAYLAN Nicotine (Nicotine 21 Mg Patch.Td24) 21 mg TRANSDERMA DAILY [facility] Last Admin: 05/13/23 08:37 Dose: Not Given Documented By: KAYLAN Non-Admin Reason: Patient Refused Ondansetron HCl (Ondansetron Hcl 4 Mg/2 Ml Vial) 4 mg IVPUSH Q8H PRN PRN Reason: Nausea and Vomiting Oxycodone HCl (Oxycodone Hcl Immed Release 5 Mg Tablet) 10 mg PO Q4H PRN PRN Reason: severe pain Last Admin: 05/12/23 17:12 Dose: 10 mg Documented By: KRISHNA Sodium Chloride (0.9 % Sodium Chloride Flush 3 Ml Syringe) 3 ml IVFLUSH QSHIFT [facility] Last Admin: 05/13/23 08:34 Dose: 3 ml Documented By: KAYLAN Sodium Chloride (0.9 % Sodium Chloride Flush 10 Ml Syringe) 5 ml IVFLUSH TID [facility] Last Admin: 05/13/23 08:34 Dose: 5 ml Documented By: KAYLAN Labs 05/03/23 05:51 05/08/23 06:31 Assessment and Plan (1) Osteomyelitis: Status: Acute (2) Seizure: Status: Acute (3) Paroxysmal atrial fibrillation: Status: Acute Plan Pt is a 68-year-old male with a PMH significant for?paroxysmal AFib not compliant with Eliquis, CAD s/p CABG, PAD s/p AKA, hx prior CVAs (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 ; breakthrough seizures secondary to noncompliance and polysubstance abuse 1.Breakthrough seizure(noncompliance) Loaded with IV Keppra on admission and maintained on oral dosing. No further seizures his admission since compliant with therapies -Keppra as ordered -follow clinically 2.Chronic nonhealing wounds/osteomyelitis. Patient status post stump revision by Dr. Ch. At this point in time the recommendation is for 6 weeks of IV antibiotics to treat osteomyelitis -meropenem () -follow renals/divalents 3.Subacute CVA Seen by Neurology; this is felt to be an old event. No further interventions at this time 4.Polysubstance use disorder -oxycodone as ordered for pain -follow-up clinically 5.Paroxysmal AFib Remains in normal sinus rhythm at this time -will hold anticoagulation at this time Full Code Lovenox Pt will require ongoing hospitalization to treat osteomyelitis osteomyelitis left stump revision. Will likely need long-term antibiotics and surgical intervention; given substance abuse will need placement Quality Stroke Does the patient have a stroke diagnosis?: No Reason for No Anti-thrombotic by Day Two: Contraindicated VTE Prior VTE?: No VTE Risk Level:: Medical - moderate - high VTE Device Contraindication: Treatment Not Indicated VTE Drug Contraindication: N/A - Med Ordered
[2023-05-13 15:26] VITALS: BP 109/78; PULSE 79; RESP 18; TEMP 36.8; O2SAT 96
[2023-05-13] MEDS: oxyCODONE HCl Immed Release 5 MG TABLET 10 MG PO ×2 (15:59→20:36)
--- NOTE | 2023-05-13 16:07 | MHC.CM.PN ---
CM SPOKE WITH [employer] WHO STATE PT IS NOT ELIGIBLE FOR , OVER INCOME. CALL PLACED TO [employer] TO INQUIRE ABOUT SECONDARY PAYER SOURCE SUPPLEMENT, MESSAGE LEFT FOR RETURN CALL, NO BED OFFERS HAS NO SECONDARY PAYER AND +TOX SCREEN ON ADMIT
[2023-05-13 19:20] VITALS: BP 118/61; PULSE 75; RESP 18; TEMP 36.1; O2SAT 96
[2023-05-13] MEDS: Atorvastatin Calcium 40 MG TABLET PO (20:36)
[2023-05-13 23:30] VITALS: BP 110/69; PULSE 81; RESP 18; TEMP 37.2; O2SAT 96
[2023-05-14] MEDS: oxyCODONE HCl Immed Release 5 MG TABLET 10 MG PO (00:33)
[2023-05-14] MEDS: Melatonin 3 MG TABLET 6 MG PO (00:37)
[2023-05-14 04:00] VITALS: BP 129/68; PULSE 69; RESP 18; TEMP 37.1; O2SAT 99
[2023-05-14 07:41] LABS: Alanine Aminotransferase 67 U/L (0-40); Albumin Level 3.8 g/dL (3.5-5.0); Alkaline Phosphatase 94 U/L (39-117); Anion Gap 9 (12-20); Aspartate Amino Transferase 61 U/L (5-37); Bilirubin Total 0.2 mg/dL (0.0-1.0); Blood Urea Nitrogen 37 mg/dL (9-16); Calcium 8.9 mg/dL (8.4-10.2); Carbon Dioxide 24 mmol/L (22-29); Chloride 113 mmol/L (96-108); Creatinine Clr Calc Pharmacy 49.4; Estimated Glomerular Filt Rate > 60; Glucose Fasting 115 mg/dL (60-99); Sodium 142 mmol/L (135-145); Total Protein 7.4 g/dL (6.5-8.0)
[2023-05-14 08:00] VITALS: BP 78/42; PULSE 65; RESP 20; TEMP 36.6; O2SAT 98
[2023-05-14 08:51] LABS: Basophils Absolute Auto 0.1 X10*3/uL (0.0-0.2); Eosinophils Absolute Auto 0.8 X10*3/uL (0.0-0.4); Eosinophils Percent Auto 5.3 % (0-4); Hematocrit 38.4 % (42.0-52.0); Hemoglobin 12.5 g/dl (14.0-18.0); Imm Gran Abs Auto 0.08 X10*3/uL (0.00-0.03); Imm Gran Pct Auto 0.5 % (0.0-0.4); Lymphocytes Absolute Auto 4.2 X10*3/uL (1.2-4.9); Lymphocytes Percent Auto 28.7 % (20-40); MANUAL DIFF FLAG SCAN; Mean Corpuscular HGB Conc 32.6 g/dl (31.0-36.0); Mean Corpuscular Hemoglobin 26.7 pg (27.0-33.0); Mean Corpuscular Volume 82.1 fL (80.0-98.0); Mean Platelet Volume 10.3 fL (9.4-12.4); Monocytes Absolute Auto 2.3 X10*3/uL (0.1-1.2); Monocytes Percent Auto 15.9 % (2-11); Neutrophils Absolute Auto 7.1 x10*3/uL (2.0-8.3); Neutrophils Percent Auto 48.6 % (45-73); Platelet Count 220 X10*3/uL (160-400); Red Blood Count 4.68 X10*6/uL (4.60-5.80); Red Cell Distribution Width 19.5 % (11.0-16.0); SCAN SMEAR FLAG 1; White Blood Count 14.7 X10*3/uL (4.8-10.8)
[2023-05-14] MEDS: 0.9 % Sodium Chloride Flush 3 ML SYRINGE IVFLUSH ×3 (09:04→20:01)
[2023-05-14] MEDS: Aspirin Enteric Coated 81 MG TABLET.DR PO (09:05)
[2023-05-14] MEDS: levETIRAcetam 500 MG TABLET PO ×2 (09:05→20:00)
[2023-05-14] MEDS: Apixaban 5 MG TABLET PO ×2 (09:05→20:00)
[2023-05-14] MEDS: Amiodarone HCL 200 MG TABLET PO (09:05)
[2023-05-14 09:22] LABS: SLIDE REVIEW VERIFIED
[2023-05-14 11:32] VITALS: BP 100/55; PULSE 78; RESP 20; TEMP 36.3; O2SAT 98
--- NOTE | 2023-05-14 13:23 | MHC.CLN ---
F/U PO INTAKE CONTINUES EXCELLENT, USUALLY 75-100%. DIET RX:2 GRAM SODIUM-APPROPRIATE PT RECEIVING ENSURE MAX BID TO PROMOTE WOUND HEALING PROVIDES 300 KCALS, 60 G PROTEIN PATIENT WITH MULTIPLE PRESSURE INJURIES MONITOR PO INTAKE AND ENCOURAGE SUPPLEMENT
[2023-05-14] MEDS: 0.9 % Sodium Chloride Flush 10 ML SYRINGE 5 ML IVFLUSH (14:37)
--- NOTE | 2023-05-14 15:02 | HO.PM.IMPN ---
Subjective Subjective Date of Service: 05/14/23 Interval History: No acute issues overnight Review of Systems Denies chest pain Denies shortness of breath Denies nausea vomiting diarrhea Denies fever chills Physical Exam Vital Signs: Vital Signs: Last Vital Signs Temp 97.4 F 05/14/23 11:32 Pulse 78 05/14/23 11:32 Resp 20 05/14/23 11:32 BP 100/55 L 05/14/23 11:32 Pulse Ox 98 05/14/23 11:32 O2 Del Method Room Air 05/14/23 11:32 O2 Flow Rate 2 04/28/23 07:46 Oxygen Flow Rate 2 04/27/23 13:32 BMI result Body Mass Index 21.4 Const: Other: Awake alert no acute distress Resp: Other: Clear to auscultation bilaterally no rales rhonchi or wheezes Cardio: Other: No S4; positive S1-S2; no S3 murmurs rubs or gallops GI: Other: Soft nontender nondistended normoactive bowel sounds Skin: Other: See admission pictures Extrem: Other: Left AKA; superficial left hip the cube; deep right hip to cue with granulation no necrotic tissue; right ischial ulceration Objective Data Active Medications Acetaminophen (Acetaminophen 325 Mg Tablet) 650 mg PO Q6H PRN PRN Reason: Pain, Mild (Pain Scale 1-3) Last Admin: 05/12/23 12:41 Dose: 650 mg Documented By: KRISHNA Amiodarone HCl (Amiodarone Hcl 200 Mg Tablet) 200 mg PO DAILY [facility] Last Admin: 05/14/23 09:05 Dose: 200 mg Documented By: RADHA Apixaban (Apixaban 5 Mg Tablet) 5 mg PO BID [facility] Last Admin: 05/14/23 09:05 Dose: 5 mg Documented By: RADHA Aspirin (Aspirin Enteric Coated 81 Mg Tablet.) 81 mg PO DAILY [facility] Last Admin: 05/14/23 09:05 Dose: 81 mg Documented By: RADHA Atorvastatin Calcium (Atorvastatin Calcium 40 Mg Tablet) 40 mg PO BEDTIME [facility] Last Admin: 05/13/23 20:36 Dose: 40 mg Documented By: SENA Benzonatate (Benzonatate 100 Mg Capsule) 100 mg PO TID PRN PRN Reason: Cough Docusate Sodium (Docusate Sodium 100 Mg Capsule) 100 mg PO DAILY PRN PRN Reason: Constipation Last Admin: 05/03/23 08:39 Dose: 100 mg Documented By: SOFY Furosemide (Furosemide 20 Mg Tablet) 20 mg PO DAILY [facility]; Protocol Last Admin: 05/14/23 09:05 Dose: Not Given Documented By: RADHA Non-Admin Reason: Physician Held Med Meropenem 1 gm/ Sodium (Chloride) 100 mls @ 200 mls/hr IV Q8H [facility] Last Infusion: 05/14/23 11:30 Dose: Infused Documented By: RADHA Levetiracetam (Levetiracetam 500 Mg Tablet) 500 mg PO BID [facility] Last Admin: 05/14/23 09:05 Dose: 500 mg Documented By: RADHA Melatonin (Melatonin 3 Mg Tablet) 6 mg PO BEDTIME PRN PRN Reason: Insomnia Last Admin: 05/14/23 00:37 Dose: 6 mg Documented By: SHERRIE Metoprolol Succinate (Metoprolol Succinate Er 25 Mg Tab.Er.24h) 25 mg PO DAILY [facility]; Protocol Last Admin: 05/14/23 09:05 Dose: Not Given Documented By: RADHA Non-Admin Reason: Physician Held Med Nicotine (Nicotine 21 Mg Patch.Td24) 21 mg TRANSDERMA DAILY [facility] Last Admin: 05/14/23 09:05 Dose: Not Given Documented By: RADHA Non-Admin Reason: Patient Refused Ondansetron HCl (Ondansetron Hcl 4 Mg/2 Ml Vial) 4 mg IVPUSH Q8H PRN PRN Reason: Nausea and Vomiting Sodium Chloride (0.9 % Sodium Chloride Flush 3 Ml Syringe) 3 ml IVFLUSH QSHIFT [facility] Last Admin: 05/14/23 14:37 Dose: 3 ml Documented By: RADHA Sodium Chloride (0.9 % Sodium Chloride Flush 10 Ml Syringe) 5 ml IVFLUSH TID [facility] Last Admin: 05/14/23 14:37 Dose: 5 ml Documented By: RADHA Labs 05/14/23 06:51 05/14/23 06:51 Labs: Laboratory Results - last 24 hr 05/14/23 06:51 MCV 82.1 MCH 26.7 L MCHC 32.6 RDW 19.5 H Plt Count 220 MPV 10.3 Immature Gran % (Auto) 0.5 H Neut % (Auto) 48.6 Lymph % (Auto) 28.7 [place] % (Auto) 15.9 H Eos % (Auto) 5.3 H Baso % (Auto) 1.0 Lymph # (Auto) 4.2 [place] # (Auto) 2.3 H Eos # (Auto) 0.8 H Baso # (Auto) 0.1 Abs Immat Gran (auto) 0.08 H Absolute Neuts (auto) 7.1 Absolute Nucleated RBC 0.000 Nucleated RBC % (auto) 0.0 Smear Tech's Comments VERIFIED Anion Gap 9 L Estim Creat Clear Calc 49.4 Estimated GFR > 60 Fasting Glucose 115 H Calcium 8.9 Total Bilirubin 0.2 AST 61 H ALT 67 H Alkaline Phosphatase 94 Total Protein 7.4 Albumin 3.8 Assessment and Plan (1) Osteomyelitis: Status: Acute Plan Pt is a 68-year-old male with a PMH significant for?paroxysmal AFib not compliant with Eliquis, CAD s/p CABG, PAD s/p AKA, hx prior CVAs (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 ; breakthrough seizures secondary to noncompliance and polysubstance abuse 1.Breakthrough seizure(noncompliance) Loaded with IV Keppra on admission and maintained on oral dosing. No further seizures his admission since compliant with therapies -Keppra as ordered -follow clinically.. Will need placement pending financing 2.Chronic nonhealing wounds/osteomyelitis. Patient status post stump revision by Dr. Ch. At this point in time the recommendation is for 6 weeks of IV antibiotics to treat osteomyelitis -meropenem () -follow renals/divalents 3.Subacute CVA Seen by Neurology; this is felt to be an old event. No further interventions at this time 4.Polysubstance use disorder -oxycodone as ordered for pain -follow-up clinically 5.Paroxysmal AFib Remains in normal sinus rhythm at this time -will hold anticoagulation at this time Full Code Lovenox Pt will require ongoing hospitalization to treat osteomyelitis of left stump revision. Will likely need long-term antibiotics and surgical intervention; given substance abuse will need placement Quality Stroke Does the patient have a stroke diagnosis?: No Reason for No Anti-thrombotic by Day Two: Contraindicated VTE Prior VTE?: No VTE Risk Level:: Medical - moderate - high VTE Device Contraindication: Treatment Not Indicated VTE Drug Contraindication: N/A - Med Ordered
--- NOTE | 2023-05-14 15:35 | HO.WOUND ---
Wound Consult: Follow up for multiple wounds see below for details. 68yr old male [place] [facility] [place]04[place]27/23 17:52 - See progress notes and H&P for detailed history. Pt was irritable at bedside today and requested I return tomorrow for wound dressing changes. He was agreeable to Left Residual Leg assessment - dressing peeled back and assessed and at pt request replaced. Right buttock / Ischium he allowed assessment as direct care nurse reported dressing was not changed and did not have packing in place. Direct care nurse educated on importance of packing and wound healing. Wound assessed and detailed below. Details from previous assessment this admission - Wound consult follow up request by provider prior to d/c today for Bilateral Trochanter sites, right Ischium . Pt was agreeable to assessment and photo documentation. Information from previous assessment: He reports he does not have current provider covering these wounds - he reports he has never sough treatment for hip and buttock wounds - chart review reveals pt did in fact follow with outpt wound clinic for two visits on in November and last one 12/17/22. Wound were charted as following - Right Hip Stage 4 and Left buttock Stage 4 and right ischium stage 3. Currently Left buttock healed - evidence of previous injury noted with scar tissue formation and hypopigmentation noted. and Right buttock / ischium is currently stage 4 as it probes to bone although bone does not feel frankly exposed. Pt states these wound may be caused by his substance use - he denies injecting but reports he does smoke heroin regularly - he reports he does not feel they are pressure related - attempted to educate pt on pressure injuries causes and preventative treatments - he reports understanding but does not agree these are from prolonged pressure exposure - despite his confirmation of lack of mobility and lack of consistent repositioning and home ervices. Of note wound remain consistent with pressure presentation and are over bony prominences and pt appears malnourished at this time. Nutrition is following and orders are in place. Pt educated to continue with topical care and off loading and to follow up with Outpt Wound Clinic at time of D/C - he reports understanding. Todays Assessment : Left residual leg wound 05/15/23 Etiology: Surgical site - AKA revision Wound Bed: well approximated surgical incision - staple line clean and intact no active oozing noted - dried drainage noted to central incision Drainage / Odor: dried Edges: ? well approximated - fabian in place Valarie wound: intact no erythema noted Pain: denies pain Goals of Treatment: ?Keep clean dry and intact with dry dressing. Right Troachanter / Hip - not assessed today per pt request Etiology: Previously documented stage 4 pressure injury POA Left Troachanter / Hip - not assessed today per pt request Etiology: Resurfacing Stage 3 pressure injury POA 04/28/23 Assessment 05/08/23 Assessment No photo at todays assessment Right Ischium / Buttocks Etiology: Stage 4 Pressure Injury POA - Previously documented stage 3 pressure injury with out pt WCC Measurements: 0.2cm x 0.2cm x 1.5cm - significant decrease in size Wound Bed:unable to visalize wound bed - but currently does not feel as if it is probing to depth of bone - structure brobed but not frankly exposed. Drainage / Odor: scant serosanf drainage noted on foam dressing - no packing in place at time of assessment - no odor noted - direct care team educated on importance of packing and wound healing. Edges: ? unattached Valarie wound:Clean and dry - No Induration, Fluctuance or Warmth noted Pain: Mild pain with cleansing and probing Goals of Treatment: ?Off Load pressure and Alginate packing for moisture management Coccyx / sacrum assessed - healed intact tissue no open wound noted - previous full thickness tissue loss noted as evidence of scar tissue may continue to foam for added protection and prevention. Recommendations: 1. Turn and Reposition every 2 hours and as needed for patient comfort. Use pillow or wedges to aid in supporting off loaded position. 2. Off Load all bony prominences with use of pillows and heel boots if needed.? Apply Preventative foams where needed. ? 3. Monitor for incontinence and moisture control, use barrier creams when needed for prevention and treatment. 4. Provide adequate and supplemental nutrition. - Nutrition following and orders in place. 5. Continue low air loss mattress. 6. Right (Hip) Trochanter and Right Ischium - Cleanse and irrigate with NS, Pat dry. Apply barrier wipe to periwound. Cover and lightly pack wound beds with Alginate - be sure to leave a wick for easy removal. cover with foam dressing. Change Daily. 7. Left (Hip) Trochanter - Cleanse with NS, Pat dry. Apply barrier wipe to periwound. Cover with foam dressing peel back and assess Q shift and change every 3 days and PRN for soiling. 8. Sacrum / Coccyx - Cleanse with NS, Pat dry. Apply barrier wipe allow to dry. Cover with foam dressing peel back and assess Q shift and change every 3 days and PRN for soiling. 9. Left residual leg - Cleanse with NS. Pat Dry. Apply dry ABD pad secure with tape. Change Daily. Wound Clinic Follow up Recommend follow up out patient Wound Clinic at [address] [place] [id number] and to call for an appointment at time of discharge. [phone].? Re-consult wound care Nurse for wound deterioration or wound changes.
[2023-05-14 15:47] VITALS: BP 98/56; PULSE 63; RESP 18; TEMP 36.3; O2SAT 94
[2023-05-14 19:30] VITALS: BP 96/61; PULSE 79; RESP 18; TEMP 36.7; O2SAT 94
[2023-05-14] MEDS: Atorvastatin Calcium 40 MG TABLET PO (20:00)
[2023-05-14 23:53] VITALS: BP 92/72; PULSE 75; RESP 18; TEMP 36.9; O2SAT 97
[2023-05-15 04:00] VITALS: BP 127/73; PULSE 98; RESP 20; TEMP 36.9; O2SAT 97
[2023-05-15 08:00] VITALS: BP 112/70; PULSE 84; RESP 20; TEMP 36; O2SAT 98
[2023-05-15] MEDS: 0.9 % Sodium Chloride Flush 3 ML SYRINGE IVFLUSH (09:12)
[2023-05-15] MEDS: Amiodarone HCL 200 MG TABLET PO (09:12)
[2023-05-15] MEDS: Furosemide 20 MG TABLET PO (09:12)
[2023-05-15] MEDS: 0.9 % Sodium Chloride Flush 10 ML SYRINGE 5 ML IVFLUSH ×3 (09:12→23:15)
[2023-05-15] MEDS: Apixaban 5 MG TABLET PO ×2 (09:12→20:18)
[2023-05-15] MEDS: levETIRAcetam 500 MG TABLET PO ×2 (09:12→20:18)
[2023-05-15] MEDS: Acetaminophen 325 MG TABLET 650 MG PO ×2 (09:16→20:17)
[2023-05-15 11:36] VITALS: BP 95/50; PULSE 80; RESP 20; TEMP 36.4; O2SAT 98
--- NOTE | 2023-05-15 12:36 | HO.PM.IMPN ---
Subjective Subjective Date of Service: 05/15/23 Interval History: No acute issues overnight Review of Systems Denies chest pain Denies shortness of breath Denies nausea vomiting diarrhea Denies fever chills Physical Exam Vital Signs: Vital Signs: Last Vital Signs Temp 97.6 F 05/15/23 11:36 Pulse 80 05/15/23 11:36 Resp 20 05/15/23 11:36 BP 95/50 L 05/15/23 11:36 Pulse Ox 98 05/15/23 11:36 O2 Del Method Room Air 05/15/23 11:36 O2 Flow Rate 2 04/28/23 07:46 Oxygen Flow Rate 2 04/27/23 13:32 BMI result Body Mass Index 21.4 Const: Other: Awake alert no acute distress Resp: Other: Clear to auscultation bilaterally no rales rhonchi or wheezes Cardio: Other: No S4; positive S1-S2; no S3 murmurs rubs or gallops GI: Other: Soft nontender nondistended normoactive bowel sounds Skin: Other: See admission pictures Extrem: Other: Left AKA; superficial left hip the cube; deep right hip to cue with granulation no necrotic tissue; right ischial ulceration Objective Data Active Medications Acetaminophen (Acetaminophen 325 Mg Tablet) 650 mg PO Q6H PRN PRN Reason: Pain, Mild (Pain Scale 1-3) Last Admin: 05/15/23 09:16 Dose: 650 mg Documented By: CECILIA Amiodarone HCl (Amiodarone Hcl 200 Mg Tablet) 200 mg PO DAILY [facility] Last Admin: 05/15/23 09:12 Dose: 200 mg Documented By: CECILIA Apixaban (Apixaban 5 Mg Tablet) 5 mg PO BID [facility] Last Admin: 05/15/23 09:12 Dose: 5 mg Documented By: CECILIA Aspirin (Aspirin Enteric Coated 81 Mg Tablet.) 81 mg PO DAILY [facility] Last Admin: 05/15/23 09:12 Dose: 81 mg Documented By: CECILIA Atorvastatin Calcium (Atorvastatin Calcium 40 Mg Tablet) 40 mg PO BEDTIME [facility] Last Admin: 05/14/23 20:00 Dose: 40 mg Documented By: LISA Benzonatate (Benzonatate 100 Mg Capsule) 100 mg PO TID PRN PRN Reason: Cough Docusate Sodium (Docusate Sodium 100 Mg Capsule) 100 mg PO DAILY PRN PRN Reason: Constipation Last Admin: 05/03/23 08:39 Dose: 100 mg Documented By: SOFY Furosemide (Furosemide 20 Mg Tablet) 20 mg PO DAILY [facility]; Protocol Last Admin: 05/15/23 09:12 Dose: 20 mg Documented By: CECILIA Meropenem 1 gm/ Sodium (Chloride) 100 mls @ 200 mls/hr IV Q8H [facility] Last Infusion: 05/15/23 09:57 Dose: Infused Documented By: CECILIA Levetiracetam (Levetiracetam 500 Mg Tablet) 500 mg PO BID [facility] Last Admin: 05/15/23 09:12 Dose: 500 mg Documented By: CECILIA Melatonin (Melatonin 3 Mg Tablet) 6 mg PO BEDTIME PRN PRN Reason: Insomnia Last Admin: 05/14/23 00:37 Dose: 6 mg Documented By: SHERRIE Metoprolol Succinate (Metoprolol Succinate Er 25 Mg Tab.Er.24h) 25 mg PO DAILY [facility]; Protocol Last Admin: 05/15/23 09:12 Dose: 25 mg Documented By: CECILIA Nicotine (Nicotine 21 Mg Patch.Td24) 21 mg TRANSDERMA DAILY [facility] Last Admin: 05/15/23 09:12 Dose: Not Given Documented By: CECILIA Non-Admin Reason: Patient Refused Ondansetron HCl (Ondansetron Hcl 4 Mg/2 Ml Vial) 4 mg IVPUSH Q8H PRN PRN Reason: Nausea and Vomiting Sodium Chloride (0.9 % Sodium Chloride Flush 3 Ml Syringe) 3 ml IVFLUSH QSHIFT [facility] Last Admin: 05/15/23 09:12 Dose: 3 ml Documented By: CECILIA Sodium Chloride (0.9 % Sodium Chloride Flush 10 Ml Syringe) 5 ml IVFLUSH TID [facility] Last Admin: 05/15/23 09:12 Dose: 5 ml Documented By: CECILAI Labs 05/14/23 06:51 05/14/23 06:51 Assessment and Plan (1) Seizure: Status: Acute Plan Pt is a 68-year-old male with a PMH significant for?paroxysmal AFib not compliant with Eliquis, CAD s/p CABG, PAD s/p AKA, hx prior CVAs (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 ; breakthrough seizures secondary to noncompliance and polysubstance abuse 1.Breakthrough seizure(noncompliance) Loaded with IV Keppra on admission and maintained on oral dosing. No further seizures his admission since compliant with therapies -Keppra as ordered -follow clinically.. Will need placement pending financing 2.Chronic nonhealing wounds/osteomyelitis. Patient status post stump revision by Dr. Ch. At this point in time the recommendation is for 6 weeks of IV antibiotics to treat osteomyelitis -meropenem () -follow renals/divalents 3.Subacute CVA Seen by Neurology; this is felt to be an old event. No further interventions at this time 4.Polysubstance use disorder -oxycodone as ordered for pain -follow-up clinically 5.Paroxysmal AFib Remains in normal sinus rhythm at this time -will hold anticoagulation at this time Full Code Lovenox Pt will require ongoing hospitalization to treat osteomyelitis of left stump revision. Will likely need long-term antibiotics and surgical intervention; given substance abuse will need placement Quality Stroke Does the patient have a stroke diagnosis?: No Reason for No Anti-thrombotic by Day Two: Contraindicated VTE Prior VTE?: No VTE Risk Level:: Medical - moderate - high VTE Device Contraindication: Treatment Not Indicated VTE Drug Contraindication: N/A - Med Ordered
--- NOTE | 2023-05-15 15:21 | HO.WOUND ---
Wound Consult: Follow up for multiple wounds see below for details. 68yr old male admitted to [facility] on?04/27/23 17:52 - See progress notes and H&P for detailed history. Pt was irritable at bedside today and requested I return tomorrow for wound dressing changes. He was agreeable to Left Residual Leg assessment - dressing peeled back and assessed and at pt request replaced. Right buttock / Ischium he allowed assessment as direct care nurse reported dressing was not changed and did not have packing in place. Direct care nurse educated on importance of packing and wound healing. Wound assessed and detailed below. Details from previous assessment this admission - Wound consult follow up request by provider prior to d/c today for Bilateral Trochanter sites, right Ischium . Pt was agreeable to assessment and photo documentation. Information from previous assessment: He reports he does not have current provider covering these wounds - he reports he has never sough treatment for hip and buttock wounds - chart review reveals pt did in fact follow with outpt wound clinic for two visits on in November and last one 12/17/22. Wound were charted as following - Right Hip Stage 4 and Left buttock Stage 4 and right ischium stage 3. Currently Left buttock healed - evidence of previous injury noted with scar tissue formation and hypopigmentation noted. and Right buttock / ischium is currently stage 4 as it probes to bone although bone does not feel frankly exposed. Pt states these wound may be caused by his substance use - he denies injecting but reports he does smoke heroin regularly - he reports he does not feel they are pressure related - attempted to educate pt on pressure injuries causes and preventative treatments - he reports understanding but does not agree these are from prolonged pressure exposure - despite his confirmation of lack of mobility and lack of consistent repositioning and home ervices. Of note wound remain consistent with pressure presentation and are over bony prominences and pt appears malnourished at this time. Nutrition is following and orders are in place. Pt educated to continue with topical care and off loading and to follow up with Outpt Wound Clinic at time of D/C - he reports understanding. Todays Assessment : No new topical recommendations needed. Left residual leg wound 05/15/23 Etiology: Surgical site - AKA revision Wound Bed: well approximated surgical incision - staple line clean and intact no active oozing noted - dried drainage noted to central incision Drainage / Odor: dried Edges: ? well approximated - fabian in place Valarie wound: intact no erythema noted Pain: denies pain Goals of Treatment: ?Keep clean dry and intact with dry dressing. 05/15/23 Right Troachanter / Hip Etiology: Previously documented stage 4 pressure injury POA Measurements: 3cm x 3cm x 0.4cm with circumferential undermining max depth at 5 o'clock 2.2cm Wound Bed: red pink moist tissue with central adherent thick yellow slough and thin layer of slough over wound bed Drainage / Odor: no dressing in place at time of assessment Edges: ? epibole Valarie wound: resolved erythema No Induration, Fluctuance or Warmth noted Pain: Mild pain with cleansing Goals of Treatment: ?Off Load pressure and Alginate for moisture management 05/15/23 Left Troachanter / Hip Etiology: Resurfacing Stage 3 pressure injury POA Measurements: 0.2cm x 0.3cm x 0.1cm Wound Bed: dried scabbed wound bed clean Drainage / Odor: no drainage - no odor noted Edges: ? attached Valarie wound: No Induration, Fluctuance or Warmth noted Pain: denies pain Goals of Treatment: ?Off Load pressure and Foam for moist wound healing and to protect from friction 04/28/23 Assessment 05/08/23 Assessment Right Ischium / Buttocks Etiology: Stage 4 Pressure Injury POA - Previously documented stage 3 pressure injury with out pt WCC Measurements: 0.5cm x 0.6cm x 1.5cm Wound Bed:unable to visualize wound bed - but currently does not feel as if it is probing to depth of bone - structure probed but not frankly exposed. Drainage / Odor: scant serosanf drainage noted on foam dressing - packing removed - no odor noted Edges: ? unattached Valarie wound:Clean and slight maceration noted - No Induration, Fluctuance or Warmth noted Pain: Mild pain with cleansing and probing Goals of Treatment: ?Off Load pressure and Alginate packing for moisture management Coccyx / sacrum assessed - healed intact tissue no open wound noted - previous full thickness tissue loss noted as evidence of scar tissue may continue to foam for added protection and prevention. Recommendations: 1. Turn and Reposition every 2 hours and as needed for patient comfort. Use pillow or wedges to aid in supporting off loaded position. 2. Off Load all bony prominences with use of pillows and heel boots if needed.? Apply Preventative foams where needed. ? 3. Monitor for incontinence and moisture control, use barrier creams when needed for prevention and treatment. 4. Provide adequate and supplemental nutrition. - Nutrition following and orders in place. 5. Continue low air loss mattress. 6. Right (Hip) Trochanter and Right Ischium - Cleanse and irrigate with NS, Pat dry. Apply barrier wipe to periwound. Cover and lightly pack wound beds with Alginate - be sure to leave a wick for easy removal. cover with foam dressing. Change Daily. 7. Left (Hip) Trochanter - Cleanse with NS, Pat dry. Apply barrier wipe to periwound. Cover with foam dressing peel back and assess Q shift and change every 3 days and PRN for soiling. 8. Sacrum / Coccyx - Cleanse with NS, Pat dry. Apply barrier wipe allow to dry. Cover with foam dressing peel back and assess Q shift and change every 3 days and PRN for soiling. 9. Left residual leg - Cleanse with NS. Pat Dry. Apply dry ABD pad secure with tape. Change Daily. Wound Clinic Follow up Recommend follow up out patient Wound Clinic at [address] [place] [phone] and to call for an appointment at time of discharge. [phone].? Re-consult wound care Nurse for wound deterioration or wound changes.
[2023-05-15 15:38] VITALS: BP 98/76; PULSE 76; RESP 18; TEMP 36.5; O2SAT 94
[2023-05-15 19:16] VITALS: BP 92/53; PULSE 66; RESP 18; TEMP 36.2; O2SAT 94
[2023-05-15] MEDS: Atorvastatin Calcium 40 MG TABLET PO (20:18)
[2023-05-15 23:07] VITALS: BP 93/61; PULSE 64; RESP 18; TEMP 36.2; O2SAT 95
[2023-05-16 03:54] VITALS: BP 111/64; PULSE 64; RESP 20; TEMP 36.1; O2SAT 97
[2023-05-16 08:00] VITALS: BP 106/63; PULSE 65; RESP 20; TEMP 36.3; O2SAT 98
[2023-05-16] MEDS: Amiodarone HCL 200 MG TABLET PO (08:31)
[2023-05-16] MEDS: Furosemide 20 MG TABLET PO (08:31)
[2023-05-16] MEDS: Apixaban 5 MG TABLET PO ×2 (08:31→20:11)
[2023-05-16] MEDS: 0.9 % Sodium Chloride Flush 10 ML SYRINGE 5 ML IVFLUSH ×3 (08:32→20:11)
--- NOTE | 2023-05-16 10:55 | MHC.CM.PN ---
CM spoke to liaison from [facility] and [facility], re: pt. going there for STR. Confirmed that pt. does have a home, and SNF stay is for short term for his IV ABX. Sent update, today is day . SNF may be able to take him for the last 20 days, which will be on 05/31/23, because he only has Medicare for insurance and they will cover 20 days. contact at and [place] is: Dorina: [phone].
--- NOTE | 2023-05-16 11:02 | PM.PNGS ---
Subjective Subjective Date of Service: 05/16/23 Interval history: Says his stump is hurting States that his pain meds have been discontinued Physical Exam Vital Signs: Vital Signs: Last Vital Signs Temp 97.3 F 05/16/23 08:00 Pulse 65 05/16/23 08:00 Resp 20 05/16/23 08:00 BP 106/63 05/16/23 08:00 Pulse Ox 98 05/16/23 08:00 O2 Del Method Room Air 05/16/23 08:00 O2 Flow Rate 2 04/28/23 07:46 Oxygen Flow Rate 2 04/27/23 13:32 BMI result Body Mass Index 21.4 Const: General: comfortable and no acute distress Resp: Effort & Inspection: normal respiratory effort Extrem: Other: Left AKA stump well healed, roman intact, not infected, no discharge Objective Data Active Medications Acetaminophen (Acetaminophen 325 Mg Tablet) 650 mg PO Q6H PRN PRN Reason: Pain, Mild (Pain Scale 1-3) Last Admin: 05/15/23 20:17 Dose: 650 mg Documented By: TEJA Amiodarone HCl (Amiodarone Hcl 200 Mg Tablet) 200 mg PO DAILY [facility] Last Admin: 05/16/23 08:31 Dose: 200 mg Documented By: MAYA Apixaban (Apixaban 5 Mg Tablet) 5 mg PO BID [facility] Last Admin: 05/16/23 08:31 Dose: 5 mg Documented By: MAYA Aspirin (Aspirin Enteric Coated 81 Mg Tablet.) 81 mg PO DAILY [facility] Last Admin: 05/16/23 08:31 Dose: 81 mg Documented By: MAYA Atorvastatin Calcium (Atorvastatin Calcium 40 Mg Tablet) 40 mg PO BEDTIME [facility] Last Admin: 05/15/23 20:18 Dose: 40 mg Documented By: TEJA Benzonatate (Benzonatate 100 Mg Capsule) 100 mg PO TID PRN PRN Reason: Cough Docusate Sodium (Docusate Sodium 100 Mg Capsule) 100 mg PO DAILY PRN PRN Reason: Constipation Last Admin: 05/03/23 08:39 Dose: 100 mg Documented By: SOFY Furosemide (Furosemide 20 Mg Tablet) 20 mg PO DAILY [facility]; Protocol Last Admin: 05/16/23 08:31 Dose: 20 mg Documented By: MAYA Meropenem 1 gm/ Sodium (Chloride) 100 mls @ 200 mls/hr IV Q8H [facility] Last Infusion: 05/16/23 04:08 Dose: Infused Documented By: KRISHNA Levetiracetam (Levetiracetam 500 Mg Tablet) 500 mg PO BID [facility] Last Admin: 05/16/23 08:31 Dose: 500 mg Documented By: MAYA Melatonin (Melatonin 3 Mg Tablet) 6 mg PO BEDTIME PRN PRN Reason: Insomnia Last Admin: 05/16/23 00:16 Dose: 6 mg Documented By: KRISHNA Metoprolol Succinate (Metoprolol Succinate Er 25 Mg Tab.Er.24h) 25 mg PO DAILY [facility]; Protocol Last Admin: 05/16/23 08:34 Dose: Not Given Documented By: MAYA Non-Admin Reason: b/p low, receiving lasix Nicotine (Nicotine 21 Mg Patch.Td24) 21 mg TRANSDERMA DAILY [facility] Last Admin: 05/16/23 08:32 Dose: 21 mg Documented By: MAYA Ondansetron HCl (Ondansetron Hcl 4 Mg/2 Ml Vial) 4 mg IVPUSH Q8H PRN PRN Reason: Nausea and Vomiting Sodium Chloride (0.9 % Sodium Chloride Flush 3 Ml Syringe) 3 ml IVFLUSH QSHIFT [facility] Last Admin: 05/16/23 08:32 Dose: 3 ml Documented By: MAYA Sodium Chloride (0.9 % Sodium Chloride Flush 10 Ml Syringe) 5 ml IVFLUSH TID [facility] Last Admin: 05/16/23 08:32 Dose: 5 ml Documented By: MAYA Labs 05/14/23 06:51 05/14/23 06:51 Procedures Date of Service Date of Service: 05/16/23 Progress Note: A&P Assessment and plan (1) AKA stump complication: Status: Acute Assessment and Plan: Status post stump revision Surgical site is well healing No evidence of infection Flaps viable Roman intact Plan to DC orman next week Time Spent With Patient Time: Total time managing care of this patient today ____ minutes. Quality Stroke Does the patient have a stroke diagnosis?: No Reason for No Anti-thrombotic by Day Two: Contraindicated VTE Prior VTE?: No VTE Risk Level:: Medical - moderate - high VTE Device Contraindication: Treatment Not Indicated VTE Drug Contraindication: N/A - Med Ordered
--- NOTE | 2023-05-16 11:47 | HO.PM.IMPN ---
Subjective Subjective Date of Service: 05/16/23 Interval History: Complaining of pain at left AKA stump, requesting for pain medications was on high-dose oxycodone up until 2 days ago, denies nausea, no vomiting tolerating diet no abdominal pain no other acute complaints, no issues overnight. Review of Systems All other system reviewed and negative Physical Exam Vital Signs: Vital Signs: Last Vital Signs Temp 97.3 F 05/16/23 08:00 Pulse 65 05/16/23 08:00 Resp 20 05/16/23 08:00 BP 106/63 05/16/23 08:00 Pulse Ox 98 05/16/23 08:00 O2 Del Method Room Air 05/16/23 08:00 O2 Flow Rate 2 04/28/23 07:46 Oxygen Flow Rate 2 04/27/23 13:32 BMI result Body Mass Index 21.4 Const: Other: General awake alert x3,in no acute distress. Neck no JVD. CVS regular rate rhythm, Respiratory lungs clear to auscultation, no respiratory distress, no wheeze, no rhonchi. Gastrointestinal abdomen soft, nontender, bowel sounds audible, no guarding , no rigidity. Extremities right lower extremity no edema, left AKA stump well healed, fabian intact, no drainage noted Neuro nonfocal Skin no rash Psych appropriate affect Objective Data Active Medications Acetaminophen (Acetaminophen 325 Mg Tablet) 650 mg PO Q6H PRN PRN Reason: Pain, Mild (Pain Scale 1-3) Last Admin: 05/15/23 20:17 Dose: 650 mg Documented By: TEJA Amiodarone HCl (Amiodarone Hcl 200 Mg Tablet) 200 mg PO DAILY [facility] Last Admin: 05/16/23 08:31 Dose: 200 mg Documented By: MAYA Apixaban (Apixaban 5 Mg Tablet) 5 mg PO BID [facility] Last Admin: 05/16/23 08:31 Dose: 5 mg Documented By: MAYA Aspirin (Aspirin Enteric Coated 81 Mg Tablet.) 81 mg PO DAILY [facility] Last Admin: 05/16/23 08:31 Dose: 81 mg Documented By: MAYA Atorvastatin Calcium (Atorvastatin Calcium 40 Mg Tablet) 40 mg PO BEDTIME [facility] Last Admin: 05/15/23 20:18 Dose: 40 mg Documented By: TEJA Benzonatate (Benzonatate 100 Mg Capsule) 100 mg PO TID PRN PRN Reason: Cough Docusate Sodium (Docusate Sodium 100 Mg Capsule) 100 mg PO DAILY PRN PRN Reason: Constipation Last Admin: 05/03/23 08:39 Dose: 100 mg Documented By: SOFY Furosemide (Furosemide 20 Mg Tablet) 20 mg PO DAILY [facility]; Protocol Last Admin: 05/16/23 08:31 Dose: 20 mg Documented By: MAYA Meropenem 1 gm/ Sodium (Chloride) 100 mls @ 200 mls/hr IV Q8H [facility] Last Admin: 05/16/23 11:40 Dose: 200 mls/hr Documented By: MAYA Levetiracetam (Levetiracetam 500 Mg Tablet) 500 mg PO BID [facility] Last Admin: 05/16/23 08:31 Dose: 500 mg Documented By: MAYA Melatonin (Melatonin 3 Mg Tablet) 6 mg PO BEDTIME PRN PRN Reason: Insomnia Last Admin: 05/16/23 00:16 Dose: 6 mg Documented By: KRISHNA Metoprolol Succinate (Metoprolol Succinate Er 25 Mg Tab.Er.24h) 25 mg PO DAILY [facility]; Protocol Last Admin: 05/16/23 08:34 Dose: Not Given Documented By: MAYA Non-Admin Reason: b/p low, receiving lasix Nicotine (Nicotine 21 Mg Patch.Td24) 21 mg TRANSDERMA DAILY [facility] Last Admin: 05/16/23 08:32 Dose: 21 mg Documented By: MAYA Ondansetron HCl (Ondansetron Hcl 4 Mg/2 Ml Vial) 4 mg IVPUSH Q8H PRN PRN Reason: Nausea and Vomiting Sodium Chloride (0.9 % Sodium Chloride Flush 3 Ml Syringe) 3 ml IVFLUSH QSHIFT [facility] Last Admin: 05/16/23 08:32 Dose: 3 ml Documented By: MAYA Sodium Chloride (0.9 % Sodium Chloride Flush 10 Ml Syringe) 5 ml IVFLUSH TID [facility] Last Admin: 05/16/23 08:32 Dose: 5 ml Documented By: MAYA Labs 05/14/23 06:51 05/14/23 06:51 Assessment and Plan (1) Seizure: Status: Acute Plan Pt is a 68-year-old male with a PMH significant for?paroxysmal AFib not compliant with Eliquis, CAD s/p CABG, PAD s/p AKA, hx prior CVAs (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 ; breakthrough seizures secondary to noncompliance and polysubstance abuse 1.Breakthrough seizure(noncompliance) Loaded with IV Keppra on admission and maintained on oral dosing. No further seizures since compliant with therapies follow clinically, need placement pending financing 2.Chronic nonhealing wounds/osteomyelitis. Patient status post stump revision by Dr. Ch, on 6 weeks of IV antibiotics to treat osteomyelitis,on iv Meropenem (), chronically elevated WBC -follow renals/divalents, will resume oxycodone for pain control 3.Subacute CVA Seen by Neurology; this is felt to be an old event. No further interventions at this time, continue aspirin, Lipitor. 4.Polysubstance use disorder, heroin/fentanyl use, 3 bags daily, no withdrawal symptoms was evaluated by Addiction Team. -resume oxycodone 5.Paroxysmal AFib Remains in normal sinus rhythm at this time, continue amiodarone and Eliquis. 6. Tobacco use disorder continue nicotine patch. 7. Coronary artery disease status post CABG continue beta-blockers, aspirin and Lipitor strongly advised to abstain from smoking. Full Code Pt will require ongoing hospitalization to treat osteomyelitis of left stump revision. Will likely need long-term antibiotics and surgical intervention; given substance abuse will need placement Quality Stroke Does the patient have a stroke diagnosis?: No Reason for No Anti-thrombotic by Day Two: Contraindicated VTE Prior VTE?: No VTE Risk Level:: Medical - moderate - high VTE Device Contraindication: Treatment Not Indicated VTE Drug Contraindication: N/A - Med Ordered
[2023-05-16] MEDS: Acetaminophen 325 MG TABLET 650 MG PO ×2 (11:50→17:31)
[2023-05-16 12:00] VITALS: BP 90/58; PULSE 77; RESP 20; TEMP 36.7; O2SAT 98
--- NOTE | 2023-05-16 12:11 | MHC.CLN ---
F/U PO INTAKE SLIGHT DECREASE NOTING 25% X 2 MEALS; TYPICALLY 75-100% DIET RX:2 GRAM SODIUM-APPROPRIATE PATIENT WITH MULTIPLE PRESSURE INJURIES PT RECEIVING ENSURE MAX BID TO PROMOTE WOUND HEALING PROVIDES 300 KCALS, 60 G PROTEIN MONITOR PO INTAKE AND ENCOURAGE SUPPLEMENT
[2023-05-16 16:00] VITALS: BP 72/44; PULSE 73; RESP 18; TEMP 36.9; O2SAT 96
[2023-05-16 19:44] VITALS: BP 90/58; PULSE 69; RESP 17; TEMP 36.4; O2SAT 96
[2023-05-16] MEDS: Atorvastatin Calcium 40 MG TABLET PO (20:11)
[2023-05-16 21:50] VITALS: BP 104/68; PULSE 63; RESP 19; TEMP 36.2; O2SAT 96
[2023-05-17] VITALS (8 sets, daily range): BP systolic 91–124; BP diastolic 49–80; PULSE 64–157; RESP 15–20; TEMP 36–36.8; O2SAT 95–99
--- NOTE | 2023-05-17 00:32 | PC.NURSE ---
Approx [id number] and family friend Rj in to see patient at bedside. Pt agitated screaming at and throwing objects across the room upon their arrival due to her being late . In to redirect patient and educate on quiet time, disruptive behaviors and verbal abuse. Pt agreeable to being cooperative and quiet afterwards. At approx 214 in to round on patient and disconnect from IV. Pt staring off into space, pinpoint pupils, arousable to voice but not directly answering questions that are asked. When asking about patient pain level he then stated I feel no pain , when an hour prior patient was c/o 6-7/10 pain. MD notified and in to bedside to assess patient. Vitals WNL, POC 97. Family denies bringing in any substances or seeing patient take anything as they were on their phones and patient denies taking anything. Per MD no need for CT Head at this time, since vitals are WNL and patient is arousable no need for Narcan. Will hold all sedating medications tonight. Pt smiling at provider when attempting to answer questions. Video monitoring place in room for patient safety. Frequent checks made to assess patient safety.
[2023-05-17] MEDS: Amiodarone HCL 200 MG TABLET PO (08:56)
[2023-05-17] MEDS: Apixaban 5 MG TABLET PO ×2 (08:56→19:53)
[2023-05-17] MEDS: Furosemide 20 MG TABLET PO (08:56)
--- NOTE | 2023-05-17 14:28 | HO.PM.IMPN ---
Subjective Subjective Date of Service: 05/17/23 Interval History: Complaining of left AKA stump pain, requesting for more pain medications denies chest pain, no palpitations, no shortness of breath, no lightheadedness ,no dizziness noted to have sinus tachycardia heart rate in 150s. Review of Systems All other system reviewed and negative Physical Exam Vital Signs: Vital Signs: Last Vital Signs Temp 97.1 F 05/17/23 11:30 Pulse 78 05/17/23 11:30 Resp 20 05/17/23 11:30 BP 96/66 05/17/23 11:30 Pulse Ox 97 05/17/23 11:30 O2 Del Method Room Air 05/17/23 11:30 O2 Flow Rate 2 04/28/23 07:46 Oxygen Flow Rate 2 04/27/23 13:32 BMI result Body Mass Index 21.4 Const: Other: General awake alert x3,in no acute distress. Neck no JVD. CVS regular rate rhythm, Respiratory lungs clear to auscultation, no respiratory distress, no wheeze, no rhonchi. Gastrointestinal abdomen soft, nontender, bowel sounds audible, no guarding , no rigidity. Extremities right lower extremity no edema, left AKA stump well healed, fabian intact, no drainage noted Neuro nonfocal Skin no rash Psych appropriate affect Objective Data Active Medications Acetaminophen (Acetaminophen 325 Mg Tablet) 650 mg PO Q6H PRN PRN Reason: Pain, Mild (Pain Scale 1-3) Last Admin: 05/16/23 17:31 Dose: 650 mg Documented By: DONIS Amiodarone HCl (Amiodarone Hcl 200 Mg Tablet) 200 mg PO DAILY [facility] Last Admin: 05/17/23 08:56 Dose: 200 mg Documented By: PARVIZ Apixaban (Apixaban 5 Mg Tablet) 5 mg PO BID [facility] Last Admin: 05/17/23 08:56 Dose: 5 mg Documented By: PARVIZ Aspirin (Aspirin Enteric Coated 81 Mg Tablet.) 81 mg PO DAILY [facility] Last Admin: 05/17/23 08:56 Dose: 81 mg Documented By: PARVIZ Atorvastatin Calcium (Atorvastatin Calcium 40 Mg Tablet) 40 mg PO BEDTIME [facility] Last Admin: 05/16/23 20:11 Dose: 40 mg Documented By: FOUZIA Benzonatate (Benzonatate 100 Mg Capsule) 100 mg PO TID PRN PRN Reason: Cough Docusate Sodium (Docusate Sodium 100 Mg Capsule) 100 mg PO DAILY PRN PRN Reason: Constipation Last Admin: 05/03/23 08:39 Dose: 100 mg Documented By: SOFY Furosemide (Furosemide 20 Mg Tablet) 20 mg PO DAILY [facility]; Protocol Last Admin: 05/17/23 08:56 Dose: 20 mg Documented By: PARVIZ Meropenem 1 gm/ Sodium (Chloride) 100 mls @ 200 mls/hr IV Q8H [facility] Last Infusion: 05/17/23 11:33 Dose: Infused Documented By: PARVIZ Levetiracetam (Levetiracetam 500 Mg Tablet) 500 mg PO BID [facility] Last Admin: 05/17/23 08:56 Dose: 500 mg Documented By: PARVIZ Melatonin (Melatonin 3 Mg Tablet) 6 mg PO BEDTIME PRN PRN Reason: Insomnia Last Admin: 05/16/23 00:16 Dose: 6 mg Documented By: KRISHNA Metoprolol Succinate (Metoprolol Succinate Er 25 Mg Tab.Er.24h) 25 mg PO DAILY [facility]; Protocol Last Admin: 05/17/23 08:56 Dose: 25 mg Documented By: PARVIZ Nicotine (Nicotine 21 Mg Patch.Td24) 21 mg TRANSDERMA DAILY [facility] Last Admin: 05/17/23 08:50 Dose: Not Given Documented By: PARVIZ Non-Admin Reason: Patient Refused Ondansetron HCl (Ondansetron Hcl 4 Mg/2 Ml Vial) 4 mg IVPUSH Q8H PRN PRN Reason: Nausea and Vomiting Oxycodone HCl (Oxycodone Hcl Immed Release 5 Mg Tablet) 10 mg PO Q4H PRN PRN Reason: Pain, Severe (Pain Scale 7-10) Last Admin: 05/17/23 13:15 Dose: 10 mg Documented By: PARVIZ Sodium Chloride (0.9 % Sodium Chloride Flush 3 Ml Syringe) 3 ml IVFLUSH QSHIFT [facility] Last Admin: 05/17/23 08:57 Dose: 3 ml Documented By: PARVIZ Sodium Chloride (0.9 % Sodium Chloride Flush 10 Ml Syringe) 5 ml IVFLUSH TID [facility] Last Admin: 05/17/23 08:57 Dose: Not Given Documented By: PARVIZ Non-Admin Reason: Duplicate Order Labs 05/14/23 06:51 05/14/23 06:51 Labs: Laboratory Results - last 24 hr 05/16/23 21:51 POC Glucose 97 Assessment and Plan (1) Seizure: Status: Acute Plan Pt is a 68-year-old male with a PMH significant for?paroxysmal AFib not compliant with Eliquis, CAD s/p CABG, PAD s/p AKA, hx prior CVAs (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 ; breakthrough seizures secondary to noncompliance and polysubstance abuse 1.Breakthrough seizure(noncompliance) Loaded with IV Keppra on admission and maintained on oral dosing. No further seizures since compliant with therapies follow clinically, need placement pending financing 2.Chronic nonhealing wounds/osteomyelitis. Patient status post stump revision by Dr. Ch, on 6 weeks of IV antibiotics to treat osteomyelitis,on iv Meropenem (), chronically elevated WBC -follow renals/divalents, will change oxycodone to Q 4 hour as needed for better pain control. 3.Subacute CVA Seen by Neurology; this is felt to be an old event. No further interventions at this time, continue aspirin, Lipitor. 4.Polysubstance use disorder, heroin/fentanyl use, 3 bags daily, no withdrawal symptoms was evaluated by Addiction Team. -resume oxycodone 5.Paroxysmal AFib Noted to be in sinus tachycardia heart rate in 150s, asymptomatic, likely due to excessive caffeine intake strongly recommend to avoid coke treated with 1 dose of IV Lopressor heart rate improved continue metoprolol, amiodarone and Eliquis. 6. Tobacco use disorder continue nicotine patch. 7. Coronary artery disease status post CABG continue beta-blockers, aspirin and Lipitor strongly advised to abstain from smoking. Full Code Pt will require ongoing hospitalization to treat osteomyelitis of left stump revision. Will likely need long-term antibiotics and surgical intervention; given substance abuse will need placement Quality Stroke Does the patient have a stroke diagnosis?: No Reason for No Anti-thrombotic by Day Two: Contraindicated VTE Prior VTE?: No VTE Risk Level:: Medical - moderate - high VTE Device Contraindication: Treatment Not Indicated VTE Drug Contraindication: N/A - Med Ordered
[2023-05-17] MEDS: Atorvastatin Calcium 40 MG TABLET PO (19:53)
[2023-05-17] MEDS: 0.9 % Sodium Chloride Flush 10 ML SYRINGE 5 ML IVFLUSH (19:57)
[2023-05-18] VITALS (9 sets, daily range): BP systolic 90–168; BP diastolic 53–64; PULSE 60–73; RESP 17–20; TEMP 36.1–36.9; O2SAT 95–98
[2023-05-18] MEDS: Amiodarone HCL 200 MG TABLET PO (08:42)
[2023-05-18] MEDS: Apixaban 5 MG TABLET PO ×2 (08:42→20:07)
[2023-05-18] MEDS: Furosemide 20 MG TABLET PO (08:42)
--- NOTE | 2023-05-18 10:50 | HO.PM.IMPN ---
Subjective Subjective Date of Service: 05/18/23 Interval History: Wants to go home, offers no acute complaints, heart rate stable, drinking plenty of fluids ,no chest pain, no palpitations, tolerating diet, no acute issues overnight. Review of Systems All other system reviewed and negative. Physical Exam Vital Signs: Vital Signs: Last Vital Signs Temp 97.1 F 05/18/23 07:25 Pulse 67 05/18/23 08:44 Resp 19 05/18/23 07:25 BP 90/55 L 05/18/23 09:57 Pulse Ox 97 05/18/23 07:25 O2 Del Method Room Air 05/18/23 07:25 O2 Flow Rate 2 04/28/23 07:46 Oxygen Flow Rate 2 04/27/23 13:32 BMI result Body Mass Index 21.4 Const: Other: General awake alert x3,in no acute distress. Neck no JVD. CVS regular rate rhythm, Respiratory lungs clear to auscultation, no respiratory distress, no wheeze, no rhonchi. Gastrointestinal abdomen soft, non tender, bowel sounds audible, no guarding , no rigidity. Extremities right lower extremity no edema, left AKA stump well healed, fabian intact, no drainage noted Neuro non focal Skin no rash Psych appropriate affect Objective Data Active Medications Acetaminophen (Acetaminophen 325 Mg Tablet) 650 mg PO Q6H PRN PRN Reason: Pain, Mild (Pain Scale 1-3) Last Admin: 05/16/23 17:31 Dose: 650 mg Documented By: DONIS Amiodarone HCl (Amiodarone Hcl 200 Mg Tablet) 200 mg PO DAILY [facility] Last Admin: 05/18/23 08:42 Dose: 200 mg Documented By: SHIKHA Apixaban (Apixaban 5 Mg Tablet) 5 mg PO BID [facility] Last Admin: 05/18/23 08:42 Dose: 5 mg Documented By: SHIKHA Aspirin (Aspirin Enteric Coated 81 Mg Tablet.) 81 mg PO DAILY [facility] Last Admin: 05/18/23 08:42 Dose: 81 mg Documented By: SHIKHA Atorvastatin Calcium (Atorvastatin Calcium 40 Mg Tablet) 40 mg PO BEDTIME [facility] Last Admin: 05/17/23 19:53 Dose: 40 mg Documented By: LUISA Benzonatate (Benzonatate 100 Mg Capsule) 100 mg PO TID PRN PRN Reason: Cough Docusate Sodium (Docusate Sodium 100 Mg Capsule) 100 mg PO DAILY PRN PRN Reason: Constipation Last Admin: 05/03/23 08:39 Dose: 100 mg Documented By: SOFY Furosemide (Furosemide 20 Mg Tablet) 20 mg PO DAILY [facility]; Protocol Last Admin: 05/18/23 08:42 Dose: 20 mg Documented By: SHIKHA Levetiracetam (Levetiracetam 500 Mg Tablet) 500 mg PO BID [facility] Last Admin: 05/18/23 08:42 Dose: 500 mg Documented By: SHIKHA Melatonin (Melatonin 3 Mg Tablet) 6 mg PO BEDTIME PRN PRN Reason: Insomnia Last Admin: 05/16/23 00:16 Dose: 6 mg Documented By: KRISHNA Metoprolol Succinate (Metoprolol Succinate Er 25 Mg Tab.Er.24h) 25 mg PO DAILY [facility]; Protocol Last Admin: 05/18/23 09:56 Dose: Not Given Documented By: SHIKHA Non-Admin Reason: BP 90/55 Nicotine (Nicotine 21 Mg Patch.Td24) 21 mg TRANSDERMA DAILY [facility] Last Admin: 05/18/23 08:42 Dose: Not Given Documented By: SHIKHA Non-Admin Reason: Patient Refused Ondansetron HCl (Ondansetron Hcl 4 Mg/2 Ml Vial) 4 mg IVPUSH Q8H PRN PRN Reason: Nausea and Vomiting Oxycodone HCl (Oxycodone Hcl Immed Release 5 Mg Tablet) 10 mg PO Q4H PRN PRN Reason: Pain, Severe (Pain Scale 7-10) Last Admin: 05/18/23 07:27 Dose: 10 mg Documented By: SHIKHA Sodium Chloride (0.9 % Sodium Chloride Flush 3 Ml Syringe) 3 ml IVFLUSH QSHIFT [facility] Last Admin: 05/18/23 07:27 Dose: 3 ml Documented By: SHIKHA Sodium Chloride (0.9 % Sodium Chloride Flush 10 Ml Syringe) 5 ml IVFLUSH TID [facility] Last Admin: 05/18/23 07:28 Dose: Not Given Documented By: SHIKHA Non-Admin Reason: Duplicate Order Labs 05/14/23 06:51 05/14/23 06:51 Assessment and Plan (1) Seizure: Status: Acute Plan Pt is a 68-year-old male with a PMH significant for?paroxysmal AFib not compliant with Eliquis, CAD s/p CABG, PAD s/p AKA, hx prior CVAs (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 ; breakthrough seizures secondary to noncompliance and polysubstance abuse 1.Breakthrough seizure(noncompliance) Loaded with IV Keppra on admission and maintained on oral dosing. No further seizures, follow clinically, need placement pending financing 2.Chronic nonhealing wounds/osteomyelitis. Patient status post stump revision by Dr. Ch, on 6 weeks of IV antibiotics to treat osteomyelitis,on iv Meropenem (), chronically elevated WBC -follow renals/divalents, will change oxycodone to Q 4 hour as needed for better pain control. 3.Subacute CVA Seen by Neurology; this is felt to be an old event. No further interventions at this time, continue aspirin, Lipitor. 4.Polysubstance use disorder, heroin/fentanyl use, 3 bags daily, no withdrawal symptoms was evaluated by Addiction Team. -resume oxycodone 5.Paroxysmal AFib Noted to be in sinus tachycardia heart rate in 150s, asymptomatic, likely due to excessive caffeine intake strongly recommend to avoid coke treated with 1 dose of IV Lopressor heart rate improved continue metoprolol, amiodarone and Eliquis. 6. Tobacco use disorder continue nicotine patch. 7. Coronary artery disease status post CABG continue beta-blockers, aspirin and Lipitor strongly advised to abstain from smoking. Full Code Pt will require ongoing hospitalization to treat osteomyelitis of left stump revision, need long-term antibiotics and surgical intervention; given substance abuse will need placement Quality Stroke Does the patient have a stroke diagnosis?: No Reason for No Anti-thrombotic by Day Two: Contraindicated VTE Prior VTE?: No VTE Risk Level:: Medical - moderate - high VTE Device Contraindication: Treatment Not Indicated VTE Drug Contraindication: N/A - Med Ordered
[2023-05-18] MEDS: 0.9 % Sodium Chloride Flush 10 ML SYRINGE 5 ML IVFLUSH ×2 (14:06→20:06)
[2023-05-18] MEDS: Atorvastatin Calcium 40 MG TABLET PO (20:07)
[2023-05-19 03:19] VITALS: BP 122/59; PULSE 60; RESP 17; TEMP 36.7; O2SAT 96
[2023-05-19 07:56] VITALS: BP 115/58; PULSE 70; RESP 20; TEMP 36.7; O2SAT 95
[2023-05-19] MEDS: Apixaban 5 MG TABLET PO ×2 (08:33→20:10)
[2023-05-19] MEDS: 0.9 % Sodium Chloride Flush 10 ML SYRINGE 5 ML IVFLUSH ×2 (08:34→20:11)
[2023-05-19] MEDS: Amiodarone HCL 200 MG TABLET PO (08:34)
[2023-05-19] MEDS: Furosemide 20 MG TABLET PO (08:34)
--- NOTE | 2023-05-19 10:37 | MHC.CM.PN ---
On day 13/42 for IVABT; SNF may be able to consider on last 20 days(r/t no secondary insurance). CM will follow.
[2023-05-19 11:11] VITALS: BP 101/51; PULSE 72; RESP 20; TEMP 36.7; O2SAT 98
--- NOTE | 2023-05-19 11:17 | MHC.CLN ---
F/U PO INTAKE 75-100% DIET RX:2 GRAM SODIUM-APPROPRIATE PATIENT WITH MULTIPLE PRESSURE INJURIES PT RECEIVING ENSURE MAX BID TO PROMOTE WOUND HEALING PROVIDES 300 KCALS, 60 G PROTEIN CONTINUE TO MONITOR PO INTAKE AND ENCOURAGE SUPPLEMENT
--- NOTE | 2023-05-19 15:00 | P.PNIM_ITS ---
Subjective Subjective Date of Service: 05/19/23 Interval History: Offers no acute complaints, no recurrent episodes of sinus tachycardia, tolerating diet, no nausea, no vomiting, no abdominal pain, no acute issues overnight. Review of Systems All other system reviewed and negative. Physical Exam 2 Vital Signs: Vital Signs: Last Vital Signs Temp 98.1 F 05/19/23 11:11 Pulse 72 05/19/23 11:11 Resp 20 05/19/23 11:11 BP 101/51 L 05/19/23 11:11 Pulse Ox 98 05/19/23 11:11 O2 Del Method Room Air 05/19/23 11:11 O2 Flow Rate 2 04/28/23 07:46 Oxygen Flow Rate 2 04/27/23 13:32 BMI result Body Mass Index 21.4 Const: Other: General awake alert x3,in no acute distress. Neck no JVD. CVS regular rate rhythm, Respiratory lungs clear to auscultation, no respiratory distress, no wheeze, no rhonchi. Gastrointestinal abdomen soft, non tender, bowel sounds audible, no guarding , no rigidity. Extremities right lower extremity no edema, left AKA stump well healed, fabian intact, no drainage noted Neuro non focal Skin no rash Psych appropriate affect Objective Data Active Medications Acetaminophen (Acetaminophen 325 Mg Tablet) 650 mg PO Q6H PRN PRN Reason: Pain, Mild (Pain Scale 1-3) Last Admin: 05/16/23 17:31 Dose: 650 mg Documented By: DONIS Amiodarone HCl (Amiodarone Hcl 200 Mg Tablet) 200 mg PO DAILY [facility] Last Admin: 05/19/23 08:34 Dose: 200 mg Documented By: CECILIA Apixaban (Apixaban 5 Mg Tablet) 5 mg PO BID [facility] Last Admin: 05/19/23 08:33 Dose: 5 mg Documented By: CECILIA Aspirin (Aspirin Enteric Coated 81 Mg Tablet.) 81 mg PO DAILY [facility] Last Admin: 05/19/23 08:33 Dose: 81 mg Documented By: CECILIA Atorvastatin Calcium (Atorvastatin Calcium 40 Mg Tablet) 40 mg PO BEDTIME [facility] Last Admin: 05/18/23 20:07 Dose: 40 mg Documented By: NAUMOC Benzonatate (Benzonatate 100 Mg Capsule) 100 mg PO TID PRN PRN Reason: Cough Docusate Sodium (Docusate Sodium 100 Mg Capsule) 100 mg PO DAILY PRN PRN Reason: Constipation Last Admin: 05/03/23 08:39 Dose: 100 mg Documented By: SOFY Furosemide (Furosemide 20 Mg Tablet) 20 mg PO DAILY [facility]; Protocol Last Admin: 05/19/23 08:34 Dose: 20 mg Documented By: CECILIA Meropenem 1 gm/ Sodium (Chloride) 100 mls @ 200 mls/hr IV Q8H [facility] Last Infusion: 05/19/23 09:10 Dose: Infused Documented By: CECILIA Levetiracetam (Levetiracetam 500 Mg Tablet) 500 mg PO BID [facility] Last Admin: 05/19/23 08:33 Dose: 500 mg Documented By: CECILIA Melatonin (Melatonin 3 Mg Tablet) 6 mg PO BEDTIME PRN PRN Reason: Insomnia Last Admin: 05/18/23 20:08 Dose: 6 mg Documented By: DEYVI Metoprolol Succinate (Metoprolol Succinate Er 25 Mg Tab.Er.24h) 25 mg PO DAILY [facility]; Protocol Last Admin: 05/19/23 08:33 Dose: 25 mg Documented By: CECILIA Nicotine (Nicotine 21 Mg Patch.Td24) 21 mg TRANSDERMA DAILY [facility] Last Admin: 05/19/23 08:36 Dose: Not Given Documented By: CECILIA Non-Admin Reason: Patient Refused Ondansetron HCl (Ondansetron Hcl 4 Mg/2 Ml Vial) 4 mg IVPUSH Q8H PRN PRN Reason: Nausea and Vomiting Oxycodone HCl (Oxycodone Hcl Immed Release 5 Mg Tablet) 10 mg PO Q4H PRN PRN Reason: Pain, Severe (Pain Scale 7-10) Last Admin: 05/19/23 02:57 Dose: 10 mg Documented By: DEYVI Sodium Chloride (0.9 % Sodium Chloride Flush 3 Ml Syringe) 3 ml IVFLUSH QSHIFT [facility] Last Admin: 05/19/23 08:34 Dose: 3 ml Documented By: CECILIA Sodium Chloride (0.9 % Sodium Chloride Flush 10 Ml Syringe) 5 ml IVFLUSH TID [facility] Last Admin: 05/19/23 08:34 Dose: 5 ml Documented By: CECILIA Labs 05/14/23 06:51 05/14/23 06:51 Assessment and Plan (1) Seizure: Status: Acute Plan Pt is a 68-year-old male with a PMH significant for?paroxysmal AFib not compliant with Eliquis, CAD s/p CABG, PAD s/p AKA, hx prior CVAs (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 ; breakthrough seizures secondary to noncompliance and polysubstance abuse 1.Breakthrough seizure(noncompliance) Loaded with IV Keppra on admission , now on 500 mg b.i.d. Keppra, No further seizures, follow clinically, need placement pending financing 2.Chronic nonhealing wounds/osteomyelitis. Patient status post stump revision by Dr. Ch, on 6 weeks of IV antibiotics to treat osteomyelitis,on iv Meropenem (), chronically elevated WBC -follow renals/divalents, on oxycodone to Q 4 hour as needed for pain control. 3.Subacute CVA Seen by Neurology; this is felt to be an old event, continue aspirin, Lipitor. 4.Polysubstance use disorder, heroin/fentanyl use, 3 bags daily, no withdrawal symptoms was evaluated by Addiction Team. -on oxycodone prn. 5.Paroxysmal AFib Noted to be in sinus tachycardia heart rate in 150s on 05/17, asymptomatic, likely due to excessive caffeine intake strongly recommend to avoid coke treated with 1 dose of IV Lopressor heart rate improved , no recurrent episodes since, continue metoprolol, amiodarone and Eliquis. 6. Tobacco use disorder continue nicotine patch. 7. Coronary artery disease status post CABG continue beta-blockers, aspirin and Lipitor strongly advised to abstain from smoking. Full Code Pt. will require ongoing hospitalization to treat osteomyelitis of left stump revision, need long-term antibiotics and surgical intervention; given substance abuse will need placement,CM arranging for safe dispo. Quality Stroke Does the patient have a stroke diagnosis?: No Reason for No Anti-thrombotic by Day Two: Contraindicated VTE Prior VTE?: No VTE Risk Level:: Medical - moderate - high VTE Device Contraindication: Treatment Not Indicated VTE Drug Contraindication: N/A - Med Ordered
[2023-05-19 15:02] VITALS: BP 100/58; PULSE 64; RESP 20; TEMP 36.7; O2SAT 98
[2023-05-19 19:51] VITALS: BP 110/72; PULSE 66; RESP 18; TEMP 36.7; O2SAT 97
[2023-05-19] MEDS: levETIRAcetam 500 MG TABLET PO (20:09)
[2023-05-19] MEDS: oxyCODONE HCl Immed Release 5 MG TABLET 10 MG PO (20:10)
[2023-05-19] MEDS: Atorvastatin Calcium 40 MG TABLET PO (20:10)
[2023-05-19] MEDS: Melatonin 3 MG TABLET 6 MG PO (20:10)
[2023-05-19] MEDS: 0.9 % Sodium Chloride Flush 3 ML SYRINGE IVFLUSH (20:11)
[2023-05-19] MEDS: Nystatin Powder 15 GM BOTTLE 1 APPL TOPICAL (22:17)
[2023-05-20 04:00] VITALS: BP 117/60; PULSE 60; RESP 18; TEMP 36.8; O2SAT 97
[2023-05-20 07:26] VITALS: BP 128/76; PULSE 61; RESP 18; TEMP 36.7; O2SAT 97
[2023-05-20] MEDS: Furosemide 20 MG TABLET PO (08:26)
[2023-05-20] MEDS: Apixaban 5 MG TABLET PO ×2 (08:27→20:43)
[2023-05-20] MEDS: 0.9 % Sodium Chloride Flush 3 ML SYRINGE IVFLUSH (08:27)
[2023-05-20] MEDS: Amiodarone HCL 200 MG TABLET PO (08:27)
[2023-05-20] MEDS: Aspirin Enteric Coated 81 MG TABLET.DR PO (08:27)
[2023-05-20] MEDS: 0.9 % Sodium Chloride Flush 10 ML SYRINGE 5 ML IVFLUSH ×2 (08:27→20:44)
[2023-05-20] MEDS: Nystatin Powder 15 GM BOTTLE 1 APPL TOPICAL ×2 (08:27→20:44)
[2023-05-20] MEDS: levETIRAcetam 500 MG TABLET PO ×2 (08:27→20:43)
[2023-05-20] MEDS: oxyCODONE HCl Immed Release 5 MG TABLET 10 MG PO ×4 (08:31→20:43)
--- NOTE | 2023-05-20 09:41 | P.PNIM_ITS ---
Subjective Subjective Date of Service: 05/20/23 Interval History: Offers no acute complaints , no fevers, no chills, tolerating diet, good pain control, requested to be discharged home. Review of Systems All other system reviewed and negative. Physical Exam 2 Vital Signs: Vital Signs: Last Vital Signs Temp 98.1 F 05/20/23 07:26 Pulse 61 05/20/23 07:26 Resp 18 05/20/23 07:26 BP 128/76 05/20/23 07:26 Pulse Ox 97 05/20/23 07:26 O2 Del Method Room Air 05/20/23 07:26 O2 Flow Rate 2 04/28/23 07:46 Oxygen Flow Rate 2 04/27/23 13:32 BMI result Body Mass Index 21.4 Const: Other: General awake alert x3,in no acute distress. Neck no JVD. CVS regular rate rhythm, Respiratory lungs clear to auscultation, no respiratory distress, no wheeze, no rhonchi. Gastrointestinal abdomen soft, non tender, bowel sounds audible, no guarding , no rigidity. Extremities right lower extremity no edema, left AKA stump well healed, fabian intact, no drainage noted Neuro non focal Skin no rash Psych appropriate affect Objective Data Active Medications Acetaminophen (Acetaminophen 325 Mg Tablet) 650 mg PO Q6H PRN PRN Reason: Pain, Mild (Pain Scale 1-3) Last Admin: 05/16/23 17:31 Dose: 650 mg Documented By: DONIS Amiodarone HCl (Amiodarone Hcl 200 Mg Tablet) 200 mg PO DAILY [facility] Last Admin: 05/20/23 08:27 Dose: 200 mg Documented By: CECILIA Apixaban (Apixaban 5 Mg Tablet) 5 mg PO BID [facility] Last Admin: 05/20/23 08:27 Dose: 5 mg Documented By: CECILIA Aspirin (Aspirin Enteric Coated 81 Mg Tablet.) 81 mg PO DAILY [facility] Last Admin: 05/20/23 08:27 Dose: 81 mg Documented By: CECILIA Atorvastatin Calcium (Atorvastatin Calcium 40 Mg Tablet) 40 mg PO BEDTIME [facility] Last Admin: 05/19/23 20:10 Dose: 40 mg Documented By: JOANNE Benzonatate (Benzonatate 100 Mg Capsule) 100 mg PO TID PRN PRN Reason: Cough Docusate Sodium (Docusate Sodium 100 Mg Capsule) 100 mg PO DAILY PRN PRN Reason: Constipation Last Admin: 05/03/23 08:39 Dose: 100 mg Documented By: SOFY Furosemide (Furosemide 20 Mg Tablet) 20 mg PO DAILY [facility]; Protocol Last Admin: 05/20/23 08:26 Dose: 20 mg Documented By: CECILIA Meropenem 1 gm/ Sodium (Chloride) 100 mls @ 200 mls/hr IV Q8H [facility] Last Infusion: 05/20/23 09:11 Dose: Infused Documented By: CECILIA Levetiracetam (Levetiracetam 500 Mg Tablet) 500 mg PO BID [facility] Last Admin: 05/20/23 08:27 Dose: 500 mg Documented By: CECILIA Melatonin (Melatonin 3 Mg Tablet) 6 mg PO BEDTIME PRN PRN Reason: Insomnia Last Admin: 05/19/23 20:10 Dose: 6 mg Documented By: JOANNE Metoprolol Succinate (Metoprolol Succinate Er 25 Mg Tab.Er.24h) 25 mg PO DAILY [facility]; Protocol Last Admin: 05/20/23 08:29 Dose: Not Given Documented By: CECILIA Non-Admin Reason: Decreased Heart Rate Nicotine (Nicotine 21 Mg Patch.Td24) 21 mg TRANSDERMA DAILY [facility] Last Admin: 05/20/23 08:28 Dose: Not Given Documented By: CECILIA Non-Admin Reason: Patient Refused Nystatin (Nystatin Powder 15 Gm Bottle) 1 appl TOPICAL BID [facility]; Protocol Last Admin: 05/20/23 08:27 Dose: 1 appl Documented By: CECILIA Ondansetron HCl (Ondansetron Hcl 4 Mg/2 Ml Vial) 4 mg IVPUSH Q8H PRN PRN Reason: Nausea and Vomiting Oxycodone HCl (Oxycodone Hcl Immed Release 5 Mg Tablet) 10 mg PO Q4H PRN PRN Reason: Pain, Severe (Pain Scale 7-10) Last Admin: 05/20/23 08:31 Dose: 10 mg Documented By: CECILIA Sodium Chloride (0.9 % Sodium Chloride Flush 3 Ml Syringe) 3 ml IVFLUSH QSHIFT [facility] Last Admin: 05/20/23 08:27 Dose: 3 ml Documented By: CECILIA Sodium Chloride (0.9 % Sodium Chloride Flush 10 Ml Syringe) 5 ml IVFLUSH TID [facility] Last Admin: 05/20/23 08:27 Dose: 5 ml Documented By: CECILIA Labs 05/14/23 06:51 05/14/23 06:51 Assessment and Plan (1) Seizure: Status: Acute Plan Pt is a 68-year-old male with a PMH significant for?paroxysmal AFib not compliant with Eliquis, CAD s/p CABG, PAD s/p AKA, hx prior CVAs (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 ; breakthrough seizures secondary to noncompliance and polysubstance abuse 1.Breakthrough seizure(noncompliance) Loaded with IV Keppra on admission , now on 500 mg b.i.d. Keppra, No further seizures, follow clinically, need placement pending financing 2.Chronic nonhealing wounds/osteomyelitis. Patient status post stump revision by Dr. Ch, on 6 weeks of IV antibiotics to treat osteomyelitis,on iv Meropenem (), chronically elevated WBC -follow renals/divalents, on oxycodone to Q 4 hour as needed for pain control. Explained to patient the reason for being in the hospital and requiring 6 weeks of IV antibiotic he showed good understanding and agreed to stay in the hospital. 3.Subacute CVA Seen by Neurology; this is felt to be an old event, continue aspirin, Lipitor. 4.Polysubstance use disorder, heroin/fentanyl use, 3 bags daily, no withdrawal symptoms was evaluated by Addiction Team. -on oxycodone prn. 5.Paroxysmal AFib Noted to be in sinus tachycardia heart rate in 150s on 05/17, asymptomatic, likely due to excessive caffeine intake strongly recommend to avoid coke treated with 1 dose of IV Lopressor heart rate improved , no recurrent episodes since, continue metoprolol, amiodarone and Eliquis. 6. Tobacco use disorder continue nicotine patch. 7. Coronary artery disease status post CABG continue beta-blockers, aspirin and Lipitor strongly advised to abstain from smoking. Full Code Pt. will require ongoing hospitalization to treat osteomyelitis of left stump revision, need long-term antibiotics and surgical intervention; given substance abuse will need placement,CM arranging for safe dispo. Quality Stroke Does the patient have a stroke diagnosis?: No Reason for No Anti-thrombotic by Day Two: Contraindicated VTE Prior VTE?: No VTE Risk Level:: Medical - moderate - high VTE Device Contraindication: Treatment Not Indicated VTE Drug Contraindication: N/A - Med Ordered
[2023-05-20 11:13] VITALS: BP 145/66; PULSE 64; RESP 20; TEMP 36.6; O2SAT 98
[2023-05-20 19:49] VITALS: BP 110/57; PULSE 66; RESP 19; TEMP 37.2; O2SAT 99
[2023-05-20] MEDS: Atorvastatin Calcium 40 MG TABLET PO (20:43)
[2023-05-20] MEDS: Melatonin 3 MG TABLET 6 MG PO (20:43)
[2023-05-21] VITALS: BP 112/60; PULSE 70; RESP 19; TEMP 36.9; O2SAT 95
[2023-05-21] MEDS: 0.9 % Sodium Chloride Flush 3 ML SYRINGE IVFLUSH ×3 (01:38→17:05)
[2023-05-21] MEDS: oxyCODONE HCl Immed Release 5 MG TABLET 10 MG PO ×5 (03:19→20:43)
[2023-05-21 04:00] VITALS: BP 120/74; PULSE 68; RESP 19; TEMP 37; O2SAT 98
[2023-05-21 07:30] VITALS: BP 117/58; PULSE 63; RESP 18; TEMP 37.4; O2SAT 99
--- NOTE | 2023-05-21 08:21 | MHC.CM.PN ---
Today is day of IV ABT; Patient only has 20 SNF days of full insurance coverage. Patient may get a SNF bed offer once IV ABT is down to final 20 days. CM will follow.
[2023-05-21] MEDS: Amiodarone HCL 200 MG TABLET PO (08:36)
[2023-05-21] MEDS: Aspirin Enteric Coated 81 MG TABLET.DR PO (08:36)
[2023-05-21] MEDS: 0.9 % Sodium Chloride Flush 10 ML SYRINGE 5 ML IVFLUSH ×2 (08:36→17:05)
[2023-05-21] MEDS: Apixaban 5 MG TABLET PO ×2 (08:36→20:43)
[2023-05-21] MEDS: Furosemide 20 MG TABLET PO (08:36)
[2023-05-21] MEDS: Metoprolol Succinate ER 25 MG TAB.ER.24H PO (08:36)
[2023-05-21] MEDS: levETIRAcetam 500 MG TABLET PO ×2 (08:36→20:43)
[2023-05-21] MEDS: Nystatin Powder 15 GM BOTTLE 1 APPL TOPICAL ×2 (08:47→21:05)
[2023-05-21 11:02] VITALS: BP 93/62; PULSE 88; RESP 20; TEMP 36.8; O2SAT 96
--- NOTE | 2023-05-21 11:41 | MHC.CLN ---
F/U PO INTAKE REMAINS GOOD DIET RX:2 GRAM SODIUM-APPROPRIATE PATIENT WITH MULTIPLE PRESSURE INJURIES PT RECEIVING ENSURE MAX BID TO PROMOTE WOUND HEALING PROVIDES 300 KCALS, 60 G PROTEIN CONTINUE TO MONITOR PO INTAKE AND ENCOURAGE SUPPLEMENT
[2023-05-21 11:42] LABS: Glucose, Whole Blood 115 mg/dL (60-115)
[2023-05-21 15:26] VITALS: BP 105/60; PULSE 72; RESP 18; TEMP 36.7; O2SAT 96
--- NOTE | 2023-05-21 15:37 | P.PNIM_ITS ---
Subjective Subjective Date of Service: 05/21/23 Interval History: Upset this morning since used all his money, he cannot open a new bag account since he is in hospital, otherwise denies pain, no fevers no chills tolerating diet no nausea, no vomiting, no abdominal pain or diarrhea. Review of Systems All other system reviewed and negative. Physical Exam 2 Vital Signs: Vital Signs: Last Vital Signs Temp 98.1 F 05/21/23 15: Pulse 72 05/21/23 15:26 Resp 18 05/21/23 15:26 BP 105/60 05/21/23 15:26 Pulse Ox 96 05/21/23 15:26 O2 Del Method Room Air 05/21/23 15:26 O2 Flow Rate 2 04/28/23 07:46 Oxygen Flow Rate 2 04/27/23 13:32 BMI result Body Mass Index 21.4 Const: Other: General awake alert x3,in no acute distress. Neck no JVD. CVS regular rate rhythm, Respiratory lungs clear to auscultation, no respiratory distress, no wheeze, no rhonchi. Gastrointestinal abdomen soft, non tender, bowel sounds audible, no guarding , no rigidity. Extremities right lower extremity no edema, left AKA stump well healed, fabian intact, no drainage noted Neuro non focal Skin no rash Psych appropriate affect Objective Data Active Medications Acetaminophen (Acetaminophen 325 Mg Tablet) 650 mg PO Q6H PRN PRN Reason: Pain, Mild (Pain Scale 1-3) Last Admin: 05/16/23 17:31 Dose: 650 mg Documented By: DONIS Amiodarone HCl (Amiodarone Hcl 200 Mg Tablet) 200 mg PO DAILY [facility] Last Admin: 05/21/23 08:36 Dose: 200 mg Documented By: ROSEMARY Apixaban (Apixaban 5 Mg Tablet) 5 mg PO BID [facility] Last Admin: 05/21/23 08:36 Dose: 5 mg Documented By: ROSEMARY Aspirin (Aspirin Enteric Coated 81 Mg Tablet.) 81 mg PO DAILY [facility] Last Admin: 05/21/23 08:36 Dose: 81 mg Documented By: ROSEMARY Atorvastatin Calcium (Atorvastatin Calcium 40 Mg Tablet) 40 mg PO BEDTIME [facility] Last Admin: 05/20/23 20:43 Dose: 40 mg Documented By: [email or web address] Benzonatate (Benzonatate 100 Mg Capsule) 100 mg PO TID PRN PRN Reason: Cough Docusate Sodium (Docusate Sodium 100 Mg Capsule) 100 mg PO DAILY PRN PRN Reason: Constipation Last Admin: 05/03/23 08:39 Dose: 100 mg Documented By: SOFY Furosemide (Furosemide 20 Mg Tablet) 20 mg PO DAILY [facility]; Protocol Last Admin: 05/21/23 08:36 Dose: 20 mg Documented By: ROSEMARY Meropenem 1 gm/ Sodium (Chloride) 100 mls @ 200 mls/hr IV Q8H [facility] Last Infusion: 05/21/23 09:11 Dose: Infused Documented By: ROSEMARY Levetiracetam (Levetiracetam 500 Mg Tablet) 500 mg PO BID [facility] Last Admin: 05/21/23 08:36 Dose: 500 mg Documented By: ROSEMARY Melatonin (Melatonin 3 Mg Tablet) 6 mg PO BEDTIME PRN PRN Reason: Insomnia Last Admin: 05/20/23 20:43 Dose: 6 mg Documented By: JOANNE Metoprolol Succinate (Metoprolol Succinate Er 25 Mg Tab.Er.24h) 25 mg PO DAILY [facility]; Protocol Last Admin: 05/21/23 08:36 Dose: 25 mg Documented By: ROSEMARY Nicotine (Nicotine 21 Mg Patch.Td24) 21 mg TRANSDERMA DAILY [facility] Last Admin: 05/21/23 08:46 Dose: Not Given Documented By: ROSEMARY Non-Admin Reason: Patient Refused Nystatin (Nystatin Powder 15 Gm Bottle) 1 appl TOPICAL BID [facility]; Protocol Last Admin: 05/21/23 08:47 Dose: 1 appl Documented By: ROSEMARY Ondansetron HCl (Ondansetron Hcl 4 Mg/2 Ml Vial) 4 mg IVPUSH Q8H PRN PRN Reason: Nausea and Vomiting Oxycodone HCl (Oxycodone Hcl Immed Release 5 Mg Tablet) 10 mg PO Q4H PRN PRN Reason: Pain, Severe (Pain Scale 7-10) Last Admin: 05/21/23 12:44 Dose: 10 mg Documented By: ROSEMARY Sodium Chloride (0.9 % Sodium Chloride Flush 3 Ml Syringe) 3 ml IVFLUSH QSHIFT [facility] Last Admin: 05/21/23 08:35 Dose: 3 ml Documented By: ROSEMARY Sodium Chloride (0.9 % Sodium Chloride Flush 10 Ml Syringe) 5 ml IVFLUSH TID [facility] Last Admin: 05/21/23 08:36 Dose: 5 ml Documented By: ROSEMARY Labs 05/14/23 06:51 05/14/23 06:51 Labs: Laboratory Results - last 24 hr 05/21/23 11:40 POC Glucose 115 Assessment and Plan (1) Seizure: Status: Acute Plan Pt is a 68-year-old male with a PMH significant for?paroxysmal AFib not compliant with Eliquis, CAD s/p CABG, PAD s/p AKA, hx prior CVAs (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 ; breakthrough seizures secondary to noncompliance and polysubstance abuse 1.Breakthrough seizure(noncompliance) Loaded with IV Keppra on admission , now on 500 mg b.i.d. Keppra, No further seizures, follow clinically, need placement pending financing 2.Chronic nonhealing wounds/osteomyelitis. Patient status post stump revision by Dr. Ch, on 6 weeks of IV antibiotics to treat osteomyelitis,on iv Meropenem (), chronically elevated WBC -on oxycodone to Q 4 hour as needed for pain control. Explained to patient the reason for being in the hospital and requiring 6 weeks of IV antibiotic he showed good understanding and agreed to stay in the hospital. 3.Subacute CVA Seen by Neurology,they felt this to be an old event, continue aspirin, Lipitor. 4.Polysubstance use disorder, heroin/fentanyl use, 3 bags daily, no withdrawal symptoms was evaluated by Addiction Team. -on oxycodone prn. 5.Paroxysmal AFib Noted to be in sinus tachycardia heart rate in 150s on 05/17, asymptomatic, likely due to excessive caffeine intake strongly recommend to avoid coke treated with 1 dose of IV Lopressor heart rate improved , no recurrent episodes since, continue metoprolol, amiodarone and Eliquis. 6. Tobacco use disorder continue nicotine patch. 7. Coronary artery disease status post CABG continue beta-blockers, aspirin and Lipitor strongly advised to abstain from smoking. Full Code Pt. will require ongoing hospitalization to treat osteomyelitis of left stump revision, need long-term antibiotics and surgical intervention; given substance abuse will need placement,CM arranging for safe dispo. Quality Stroke Does the patient have a stroke diagnosis?: No Reason for No Anti-thrombotic by Day Two: Contraindicated VTE Prior VTE?: No VTE Risk Level:: Medical - moderate - high VTE Device Contraindication: Treatment Not Indicated VTE Drug Contraindication: N/A - Med Ordered
[2023-05-21 19:33] VITALS: BP 105/68; PULSE 64; RESP 18; TEMP 36.6; O2SAT 97
[2023-05-21] MEDS: Atorvastatin Calcium 40 MG TABLET PO (20:43)
[2023-05-21] MEDS: Melatonin 3 MG TABLET 6 MG PO (20:43)
[2023-05-22] VITALS: BP 103/53; PULSE 56; RESP 20; TEMP 36.1; O2SAT 96
[2023-05-22] MEDS: oxyCODONE HCl Immed Release 5 MG TABLET 10 MG PO ×5 (01:27→20:25)
[2023-05-22] MEDS: 0.9 % Sodium Chloride Flush 3 ML SYRINGE IVFLUSH ×2 (01:32→08:29)
[2023-05-22 03:29] VITALS: BP 106/57; PULSE 54; RESP 20; TEMP 36.2; O2SAT 99
--- NOTE | 2023-05-22 06:31 | PC.NURSE ---
0300 Pt reports he is unsure if he has to urinate. Attempted x without being able to pass urine. Pt bladder scanned and 300 noted. NO discomfort noted. Pt presently would like to go back to sleep and will attempt after a nap.
[2023-05-22 08:00] VITALS: BP 108/53; PULSE 61; RESP 18; TEMP 36.4; O2SAT 96
[2023-05-22] MEDS: Furosemide 20 MG TABLET PO (08:29)
[2023-05-22] MEDS: levETIRAcetam 500 MG TABLET PO ×2 (08:29→19:45)
[2023-05-22] MEDS: Aspirin Enteric Coated 81 MG TABLET.DR PO (08:29)
[2023-05-22] MEDS: Metoprolol Succinate ER 25 MG TAB.ER.24H PO (08:29)
[2023-05-22] MEDS: Apixaban 5 MG TABLET PO ×2 (08:29→19:46)
[2023-05-22] MEDS: Amiodarone HCL 200 MG TABLET PO (08:29)
[2023-05-22] MEDS: 0.9 % Sodium Chloride Flush 10 ML SYRINGE 5 ML IVFLUSH ×2 (08:30→21:30)
[2023-05-22 11:59] VITALS: BP 98/55; PULSE 61; RESP 18; TEMP 36.4; O2SAT 95
--- NOTE | 2023-05-22 13:10 | HO.PM.IMPN ---
Subjective Subjective Date of Service: 05/22/23 Interval History: pain controlled no fever Review of Systems Review of Systems: Yes all other systems are reviewed and are negative Physical Exam Vital Signs: Vital Signs: Last Vital Signs Temp 97.5 F 05/22/23 11:59 Pulse 61 05/22/23 11:59 Resp 18 05/22/23 11:59 BP 98/55 L 05/22/23 11:59 Pulse Ox 95 05/22/23 11:59 O2 Del Method Room Air 05/22/23 11:59 O2 Flow Rate 2 04/28/23 07:46 Oxygen Flow Rate 2 04/27/23 13:32 BMI result Body Mass Index 21.4 Gen: in no acute distress HEENT: sclera anicteric, moist mucus membranes Neck: supple Lungs: clear to auscultation bilaterally Heart: regular rate and rhythm, no murmurs Abd: soft, non-tender, non-distended Ext: no edema, RUE PICC, L AKA stump well-healed Skin: warm/well-perfused Neuro: alert and oriented x3, no focal findings Psych: appropriate affect Objective Data Active Medications Acetaminophen (Acetaminophen 325 Mg Tablet) 650 mg PO Q6H PRN PRN Reason: Pain, Mild (Pain Scale 1-3) Last Admin: 05/16/23 17:31 Dose: 650 mg Documented By: DONIS Amiodarone HCl (Amiodarone Hcl 200 Mg Tablet) 200 mg PO DAILY [facility] Last Admin: 05/22/23 08:29 Dose: 200 mg Documented By: ROSEMARY Apixaban (Apixaban 5 Mg Tablet) 5 mg PO BID [facility] Last Admin: 05/22/23 08:29 Dose: 5 mg Documented By: ROSEMARY Aspirin (Aspirin Enteric Coated 81 Mg Tablet.) 81 mg PO DAILY [facility] Last Admin: 05/22/23 08:29 Dose: 81 mg Documented By: ROSEMARY Atorvastatin Calcium (Atorvastatin Calcium 40 Mg Tablet) 40 mg PO BEDTIME [facility] Last Admin: 05/21/23 20:43 Dose: 40 mg Documented By: JOANNE Benzonatate (Benzonatate 100 Mg Capsule) 100 mg PO TID PRN PRN Reason: Cough Docusate Sodium (Docusate Sodium 100 Mg Capsule) 100 mg PO DAILY PRN PRN Reason: Constipation Last Admin: 05/03/23 08:39 Dose: 100 mg Documented By: SOFY Furosemide (Furosemide 20 Mg Tablet) 20 mg PO DAILY [facility]; Protocol Last Admin: 05/22/23 08:29 Dose: 20 mg Documented By: ROSEMARY Meropenem 1 gm/ Sodium (Chloride) 100 mls @ 200 mls/hr IV Q8H [facility] Last Infusion: 05/22/23 09:03 Dose: Infused Documented By: ROSEMARY Levetiracetam (Levetiracetam 500 Mg Tablet) 500 mg PO BID [facility] Last Admin: 05/22/23 08:29 Dose: 500 mg Documented By: ROSEMARY Melatonin (Melatonin 3 Mg Tablet) 6 mg PO BEDTIME PRN PRN Reason: Insomnia Last Admin: 05/21/23 20:43 Dose: 6 mg Documented By: JOANNE Metoprolol Succinate (Metoprolol Succinate Er 25 Mg Tab.Er.24h) 25 mg PO DAILY [facility]; Protocol Last Admin: 05/22/23 08:29 Dose: 25 mg Documented By: ROSEMARY Nicotine (Nicotine 21 Mg Patch.Td24) 21 mg TRANSDERMA DAILY [facility] Last Admin: 05/22/23 08:44 Dose: Not Given Documented By: ROSEMARY Non-Admin Reason: Patient Refused Nystatin (Nystatin Powder 15 Gm Bottle) 1 appl TOPICAL BID [facility]; Protocol Last Admin: 05/22/23 08:44 Dose: Not Given Documented By: ROSEMARY Non-Admin Reason: Previously Administered Ondansetron HCl (Ondansetron Hcl 4 Mg/2 Ml Vial) 4 mg IVPUSH Q8H PRN PRN Reason: Nausea and Vomiting Oxycodone HCl (Oxycodone Hcl Immed Release 5 Mg Tablet) 10 mg PO Q4H PRN PRN Reason: severe pain Last Admin: 05/22/23 12:16 Dose: 10 mg Documented By: ROSEMARY Sodium Chloride (0.9 % Sodium Chloride Flush 3 Ml Syringe) 3 ml IVFLUSH QSHIFT [facility] Last Admin: 05/22/23 08:29 Dose: 3 ml Documented By: ROSEMARY Sodium Chloride (0.9 % Sodium Chloride Flush 10 Ml Syringe) 5 ml IVFLUSH TID [facility] Last Admin: 05/22/23 08:30 Dose: 5 ml Documented By: ROSEMARY Labs 05/14/23 06:51 05/14/23 06:51 Assessment and Plan (1) Seizure: Status: Acute Plan d26 68yo M with paroxysmal AF not compliant with apixaban, CAD s/p CAB, PAD s/p AKA, hx prior CVA [last in July 2022], seizure disorder, HTN, HLD, COPD not on home O2, hx substance abuse presented to ED after reported seizure at home admitted for breakthrough seizures, found to have chronic nonhealing wounds with question of osteomyelitis exposed bone at L AKA site subacute CVA on CT breakthrough seizure due to noncompliance + substance abuse - loaded with IV levetiracetam on admission, continue oral; now further seizures, follow clinically chronic nonhealing wounds with osteomyelitis - s/p stump revision by Dr Ch - on IV meropene day , PICC placed 05/06/23 - oxycodone for pain control subacute CVA - seen by Neurology, continue ASA + atorvastatin polysubstance abuse - no withdrawal, seen by Addiction Team, declines MAT paroxysmal AF - continue metoprolol succinate, amioarone, apixaban tobaccco abuse - NRT CAD s/p CABG - continue ASA, metoprolol succinate, atorvastatin VTE ppx - apixaban dispo - STR In my clinical judgment, the patient requires continued inpatient hospitalization for the following reasons: IV ABX, awaiting STR Total time managing care of this patient today: 35 minutes. Quality Stroke Does the patient have a stroke diagnosis?: No Reason for No Anti-thrombotic by Day Two: Contraindicated VTE Prior VTE?: No VTE Risk Level:: Medical - moderate - high VTE Device Contraindication: Treatment Not Indicated VTE Drug Contraindication: N/A - Med Ordered
--- NOTE | 2023-05-22 13:21 | PM.EVENT ---
Event Note Date of Service: 05/22/23 Event Note: AKA revision site wellhealed no signs of infections skin fabian removed wound edges remained wellapposed rest of care as per Hospitalist service Time Spent With Patient Time: Total time managing care of this patient today ____ minutes.
[2023-05-22 15:59] VITALS: BP 92/65; PULSE 63; RESP 18; TEMP 36.5; O2SAT 98
[2023-05-22 19:44] VITALS: BP 119/60; PULSE 58; RESP 20; TEMP 36.4; O2SAT 97
[2023-05-22] MEDS: Atorvastatin Calcium 40 MG TABLET PO (19:45)
[2023-05-22] MEDS: Acetaminophen 325 MG TABLET 650 MG PO (19:45)
[2023-05-22] MEDS: Nystatin Powder 15 GM BOTTLE 1 APPL TOPICAL (19:46)
--- NOTE | 2023-05-22 20:46 | PC.NURSE ---
Report provided to Zayra on Med-surg.
[2023-05-23] VITALS: BP 92/52; PULSE 61; RESP 18; TEMP 36.4; O2SAT 94
[2023-05-23 04:00] VITALS: BP 110/55; PULSE 62; RESP 16; TEMP 36.5; O2SAT 96
[2023-05-23] MEDS: oxyCODONE HCl Immed Release 5 MG TABLET 10 MG PO ×4 (07:10→21:40)
[2023-05-23] MEDS: 0.9 % Sodium Chloride Flush 3 ML SYRINGE IVFLUSH ×3 (07:11→21:41)
[2023-05-23] MEDS: Amiodarone HCL 200 MG TABLET PO (07:11)
[2023-05-23] MEDS: 0.9 % Sodium Chloride Flush 10 ML SYRINGE 5 ML IVFLUSH ×3 (07:11→21:42)
[2023-05-23] MEDS: Aspirin Enteric Coated 81 MG TABLET.DR PO (07:11)
[2023-05-23] MEDS: Apixaban 5 MG TABLET PO ×2 (07:11→21:36)
[2023-05-23] MEDS: Furosemide 20 MG TABLET PO (07:11)
[2023-05-23] MEDS: levETIRAcetam 500 MG TABLET PO ×2 (07:11→21:36)
[2023-05-23] MEDS: Metoprolol Succinate ER 25 MG TAB.ER.24H PO (07:12)
[2023-05-23 07:55] LABS: Hematocrit 37.2 % (42.0-52.0); Hemoglobin 12.2 g/dl (14.0-18.0); Mean Corpuscular HGB Conc 32.8 g/dl (31.0-36.0); Mean Corpuscular Hemoglobin 27.2 pg (27.0-33.0); Mean Corpuscular Volume 82.9 fL (80.0-98.0); Mean Platelet Volume 10.4 fL (9.4-12.4); Red Blood Count 4.49 X10*6/uL (4.60-5.80)
[2023-05-23 08:00] VITALS: BP 107/55; PULSE 54; RESP 18; TEMP 36.2; O2SAT 98
[2023-05-23 08:18] LABS: Alanine Aminotransferase 54 U/L (0-40); Albumin Level 3.5 g/dL (3.5-5.0); Alkaline Phosphatase 107 U/L (39-117); Anion Gap 9 (12-20); Aspartate Amino Transferase 35 U/L (5-37); Bilirubin Total 0.2 mg/dL (0.0-1.0); Blood Urea Nitrogen 32 mg/dL (9-16); C Reactive Protein 0.56 mg/dL (< or = 0.50); Calcium 8.7 mg/dL (8.4-10.2); Carbon Dioxide 25 mmol/L (22-29); Chloride 108 mmol/L (96-108); Estimated Glomerular Filt Rate > 60; Glucose Random 92 mg/dL (60-115); Potassium 4.2 mmol/L (3.3-5.1); Sodium 138 mmol/L (135-145)
[2023-05-23 08:40] LABS: Platelet Count 122 X10*3/uL (160-400)
[2023-05-23 08:44] LABS: Erythrocyte Sedimentation Rate 19 MM/HR (0-15)
[2023-05-23] MEDS: Nystatin Powder 15 GM BOTTLE 1 APPL TOPICAL (09:00)
--- NOTE | 2023-05-23 10:34 | P.PNIM_ITS ---
Subjective Subjective Date of Service: 05/23/23 Interval History: no new complaints fabian out of AKA yesterday by surgeon Review of Systems Review of Systems: Yes all other systems are reviewed and are negative Physical Exam 2 Vital Signs: Vital Signs: Last Vital Signs Temp 97.1 F 05/23/23 08:00 Pulse 54 05/23/23 08:00 Resp 18 05/23/23 08:00 BP 107/55 L 05/23/23 08:00 Pulse Ox 98 05/23/23 08:00 O2 Del Method Room Air 05/23/23 08:00 O2 Flow Rate 2 04/28/23 07:46 Oxygen Flow Rate 2 04/27/23 13:32 BMI result Body Mass Index 21.4 Gen: in no acute distress HEENT: sclera anicteric, moist mucus membranes Neck: supple Lungs: clear to auscultation bilaterally Heart: regular rate and rhythm, no murmurs Abd: soft, non-tender, non-distended Ext: no edema, RUE PICC, L AKA stump well-healed Skin: warm/well-perfused Neuro: alert and oriented x3, no focal findings Psych: appropriate affect Objective Data Active Medications Acetaminophen (Acetaminophen 325 Mg Tablet) 650 mg PO Q6H PRN PRN Reason: Pain, Mild (Pain Scale 1-3) Last Admin: 05/22/23 19:45 Dose: 650 mg Documented By: JOANNE Amiodarone HCl (Amiodarone Hcl 200 Mg Tablet) 200 mg PO DAILY [facility] Last Admin: 05/23/23 07:11 Dose: 200 mg Documented By: KRISHNA Apixaban (Apixaban 5 Mg Tablet) 5 mg PO BID [facility] Last Admin: 05/23/23 07:11 Dose: 5 mg Documented By: KRISHNA Aspirin (Aspirin Enteric Coated 81 Mg Tablet.) 81 mg PO DAILY [facility] Last Admin: 05/23/23 07:11 Dose: 81 mg Documented By: KRISHNA Atorvastatin Calcium (Atorvastatin Calcium 40 Mg Tablet) 40 mg PO BEDTIME [facility] Last Admin: 05/22/23 19:45 Dose: 40 mg Documented By: JOANNE Benzonatate (Benzonatate 100 Mg Capsule) 100 mg PO TID PRN PRN Reason: Cough Docusate Sodium (Docusate Sodium 100 Mg Capsule) 100 mg PO DAILY PRN PRN Reason: Constipation Last Admin: 05/03/23 08:39 Dose: 100 mg Documented By: RYAN-RIVLANNY Furosemide (Furosemide 20 Mg Tablet) 20 mg PO DAILY [facility]; Protocol Last Admin: 05/23/23 07:11 Dose: 20 mg Documented By: KRISHNA Meropenem 1 gm/ Sodium (Chloride) 100 mls @ 200 mls/hr IV Q8H [facility] Last Infusion: 05/23/23 09:29 Dose: Infused Documented By: LUKE Levetiracetam (Levetiracetam 500 Mg Tablet) 500 mg PO BID [facility] Last Admin: 05/23/23 07:11 Dose: 500 mg Documented By: KRISHNA Melatonin (Melatonin 3 Mg Tablet) 6 mg PO BEDTIME PRN PRN Reason: Insomnia Last Admin: 05/21/23 20:43 Dose: 6 mg Documented By: JOANNE Metoprolol Succinate (Metoprolol Succinate Er 25 Mg Tab.Er.24h) 25 mg PO DAILY [facility]; Protocol Last Admin: 05/23/23 07:12 Dose: 25 mg Documented By: KRISHNA Nicotine (Nicotine 21 Mg Patch.Td24) 21 mg TRANSDERMA DAILY [facility] Last Admin: 05/23/23 07:10 Dose: Not Given Documented By: KRISHNA Non-Admin Reason: Patient Refused Nystatin (Nystatin Powder 15 Gm Bottle) 1 appl TOPICAL BID [facility]; Protocol Last Admin: 05/23/23 09:00 Dose: 1 appl Documented By: LUKE Ondansetron HCl (Ondansetron Hcl 4 Mg/2 Ml Vial) 4 mg IVPUSH Q8H PRN PRN Reason: Nausea and Vomiting Oxycodone HCl (Oxycodone Hcl Immed Release 5 Mg Tablet) 10 mg PO Q4H PRN PRN Reason: severe pain Last Admin: 05/23/23 07:10 Dose: 10 mg Documented By: KRISHNA Sodium Chloride (0.9 % Sodium Chloride Flush 3 Ml Syringe) 3 ml IVFLUSH QSHIFT [facility] Last Admin: 05/23/23 07:11 Dose: 3 ml Documented By: KRISHNA Sodium Chloride (0.9 % Sodium Chloride Flush 10 Ml Syringe) 5 ml IVFLUSH TID [facility] Last Admin: 01/12/24 07:11 Dose: 5 ml Documented By: KRISHNA Labs 05/23/23 05:53 05/23/23 05:53 Labs: Laboratory Results - last 24 hr 05/23/23 05:53 MCV 82.9 MCH 27.2 MCHC 32.8 RDW 19.0 H Plt Count 122 L D MPV 10.4 Absolute Nucleated RBC 0.000 Nucleated RBC % (auto) 0.0 ESR 19 H Anion Gap 9 L Estim Creat Clear Calc 66.0 Estimated GFR > 60 Random Glucose 92 Calcium 8.7 Total Bilirubin 0.2 AST 35 ALT 54 H Alkaline Phosphatase 107 C-Reactive Protein 0.56 H Total Protein 7.0 Albumin 3.5 Assessment and Plan (1) Seizure: Status: Acute Plan d27 68yo M with paroxysmal AF not compliant with apixaban, CAD s/p CAB, PAD s/p AKA, hx prior CVA [last in July 2022], seizure disorder, HTN, HLD, COPD not on home O2, hx substance abuse presented to ED after reported seizure at home admitted for breakthrough seizures, found to have chronic nonhealing wounds with question of osteomyelitis exposed bone at L AKA site subacute CVA on CT breakthrough seizure due to noncompliance + substance abuse - loaded with IV levetiracetam on admission, continue oral; now further seizures, follow clinically chronic nonhealing wounds with osteomyelitis - s/p stump revision by fabian Reis out - on IV meropenem day , PICC placed 05/06/23 - oxycodone for pain control subacute CVA - seen by Neurology, continue ASA + atorvastatin polysubstance abuse - no withdrawal, seen by Addiction Team, declines MAT paroxysmal AF - continue metoprolol succinate, amioarone, apixaban tobaccco abuse - NRT CAD s/p CABG - continue ASA, metoprolol succinate, atorvastatin VTE ppx - apixaban dispo - STR In my clinical judgment, the patient requires continued inpatient hospitalization for the following reasons: IV ABX, awaiting STR Total time managing care of this patient today: 35 minutes. Quality Stroke Does the patient have a stroke diagnosis?: No Reason for No Anti-thrombotic by Day Two: Contraindicated VTE Prior VTE?: No VTE Risk Level:: Medical - moderate - high VTE Device Contraindication: Treatment Not Indicated VTE Drug Contraindication: N/A - Med Ordered
[2023-05-23] MEDS: Docusate Sodium 100 MG CAPSULE PO (11:07)
--- NOTE | 2023-05-23 11:27 | MHC.CLN ---
F/U PO INTAKE REMAINS GOOD. DIET RX:2 GRAM SODIUM-APPROPRIATE. PATIENT WITH MULTIPLE PRESSURE INJURIES. ENSURE MAX BID TO PROMOTE WOUND HEALING. PROVIDES 300 KCALS, 60 G PROTEIN. CONTINUE TO MONITOR PO INTAKE AND ENCOURAGE SUPPLEMENT.
[2023-05-23 15:25] VITALS: BP 114/59; PULSE 60; RESP 18; TEMP 36.4; O2SAT 100
[2023-05-23] MEDS: Hydrocortisone 1 % Ointment 28.35 GM TUBE 1 APPL TOPICAL ×2 (16:44→21:43)
[2023-05-23 19:48] VITALS: BP 100/52; PULSE 57; RESP 16; TEMP 36.3; O2SAT 96
[2023-05-23] MEDS: Atorvastatin Calcium 40 MG TABLET PO (21:36)
[2023-05-24 02:54] VITALS: BP 120/58; PULSE 55; RESP 18; TEMP 37.1; O2SAT 97
[2023-05-24] MEDS: oxyCODONE HCl Immed Release 5 MG TABLET 10 MG PO ×5 (04:56→23:44)
[2023-05-24 06:00] VITALS: BP 120/57; PULSE 54; RESP 17; TEMP 36.7; O2SAT 97
[2023-05-24 08:02] VITALS: BP 96/62; PULSE 54; RESP 16; TEMP 36; O2SAT 96
[2023-05-24] MEDS: Docusate Sodium 100 MG CAPSULE PO (09:10)
[2023-05-24] MEDS: Furosemide 20 MG TABLET PO (09:10)
[2023-05-24] MEDS: Aspirin Enteric Coated 81 MG TABLET.DR PO (09:10)
[2023-05-24] MEDS: Amiodarone HCL 200 MG TABLET PO (09:10)
[2023-05-24] MEDS: levETIRAcetam 500 MG TABLET PO ×2 (09:11→19:30)
[2023-05-24] MEDS: Acetaminophen 325 MG TABLET 650 MG PO (09:11)
[2023-05-24] MEDS: Apixaban 5 MG TABLET PO ×2 (09:11→19:30)
[2023-05-24] MEDS: Metoprolol Succinate ER 25 MG TAB.ER.24H PO (09:15)
[2023-05-24] MEDS: 0.9 % Sodium Chloride Flush 10 ML SYRINGE 5 ML IVFLUSH ×3 (09:16→22:12)
[2023-05-24] MEDS: 0.9 % Sodium Chloride Flush 3 ML SYRINGE IVFLUSH (09:16)
[2023-05-24] MEDS: Hydrocortisone 1 % Ointment 28.35 GM TUBE 1 APPL TOPICAL (09:17)
--- NOTE | 2023-05-24 10:04 | P.PNIM_ITS ---
Subjective Subjective Date of Service: 05/24/23 Interval History: had itchy red rash on upper chest yesterday that has resolved after low-dose hydrocortisone otherwise no issues Review of Systems Review of Systems: Yes all other systems are reviewed and are negative Physical Exam 2 Vital Signs: Vital Signs: Last Vital Signs Temp 96.8 F 05/24/23 08:02 Pulse 54 05/24/23 08:02 Resp 16 05/24/23 08:02 BP 96/62 05/24/23 08:02 Pulse Ox 96 05/24/23 08:02 O2 Del Method Room Air 05/24/23 08:02 O2 Flow Rate 2 04/28/23 07:46 Oxygen Flow Rate 2 04/27/23 13:32 BMI result Body Mass Index 21.4 Gen: in no acute distress HEENT: sclera anicteric, moist mucus membranes Neck: supple Lungs: clear to auscultation bilaterally Heart: regular rate and rhythm, no murmurs Abd: soft, non-tender, non-distended Ext: no edema, RUE PICC, L AKA stump well-healed Skin: warm/well-perfused Neuro: alert and oriented x3, no focal findings Psych: appropriate affect Objective Data Active Medications Acetaminophen (Acetaminophen 325 Mg Tablet) 650 mg PO Q6H PRN PRN Reason: Pain, Mild (Pain Scale 1-3) Last Admin: 05/24/23 09:11 Dose: 650 mg Documented By: ASHLY Amiodarone HCl (Amiodarone Hcl 200 Mg Tablet) 200 mg PO DAILY [facility] Last Admin: 05/24/23 09:10 Dose: 200 mg Documented By: ASHLY Apixaban (Apixaban 5 Mg Tablet) 5 mg PO BID [facility] Last Admin: 05/24/23 09:11 Dose: 5 mg Documented By: ASHLY Aspirin (Aspirin Enteric Coated 81 Mg Tablet.) 81 mg PO DAILY [facility] Last Admin: 05/24/23 09:10 Dose: 81 mg Documented By: ASHLY Atorvastatin Calcium (Atorvastatin Calcium 40 Mg Tablet) 40 mg PO BEDTIME [facility] Last Admin: 05/23/23 21:36 Dose: 40 mg Documented By: RAINAS Benzonatate (Benzonatate 100 Mg Capsule) 100 mg PO TID PRN PRN Reason: Cough Docusate Sodium (Docusate Sodium 100 Mg Capsule) 100 mg PO DAILY PRN PRN Reason: Constipation Last Admin: 05/24/23 09:10 Dose: 100 mg Documented By: COTEMA Furosemide (Furosemide 20 Mg Tablet) 20 mg PO DAILY [facility]; Protocol Last Admin: 05/24/23 09:10 Dose: 20 mg Documented By: COTEMA Hydrocortisone (Hydrocortisone 1 % Ointment 28.35 Gm Tube) 1 appl TOPICAL BID [facility]; Protocol Last Admin: 05/24/23 09:17 Dose: 1 appl Documented By: COTEMA Meropenem 1 gm/ Sodium (Chloride) 100 mls @ 200 mls/hr IV Q8H [facility] Last Infusion: 05/24/23 09:53 Dose: Infused Documented By: COTEMA Levetiracetam (Levetiracetam 500 Mg Tablet) 500 mg PO BID [facility] Last Admin: 05/24/23 09:11 Dose: 500 mg Documented By: CECYEMA Melatonin (Melatonin 3 Mg Tablet) 6 mg PO BEDTIME PRN PRN Reason: Insomnia Last Admin: 05/21/23 20:43 Dose: 6 mg Documented By: SANTANAPSM Metoprolol Succinate (Metoprolol Succinate Er 25 Mg Tab.Er.24h) 25 mg PO DAILY [facility]; Protocol Last Admin: 05/24/23 09:15 Dose: 25 mg Documented By: CECYEMA Nicotine (Nicotine 21 Mg Patch.Td24) 21 mg TRANSDERMA DAILY [facility] Last Admin: 05/24/23 08:57 Dose: Not Given Documented By: COTEMA Non-Admin Reason: Patient Refused Nystatin (Nystatin Powder 15 Gm Bottle) 1 appl TOPICAL BID [facility]; Protocol Last Admin: 05/24/23 09:19 Dose: Not Given Documented By: COTEMA Non-Admin Reason: Patient Refused Ondansetron HCl (Ondansetron Hcl 4 Mg/2 Ml Vial) 4 mg IVPUSH Q8H PRN PRN Reason: Nausea and Vomiting Oxycodone HCl (Oxycodone Hcl Immed Release 5 Mg Tablet) 10 mg PO Q4H PRN PRN Reason: severe pain Last Admin: 05/24/23 09:10 Dose: 10 mg Documented By: COTEMA Sodium Chloride (0.9 % Sodium Chloride Flush 3 Ml Syringe) 3 ml IVFLUSH QSHIFT [facility] Last Admin: 05/24/23 09:16 Dose: 3 ml Documented By: ASHLY Sodium Chloride (0.9 % Sodium Chloride Flush 10 Ml Syringe) 5 ml IVFLUSH TID [facility] Last Admin: 05/24/23 09:16 Dose: 5 ml Documented By: ASHLY Labs 05/23/23 05:53 05/23/23 05:53 Assessment and Plan (1) Seizure: Status: Acute Plan d28 68yo M with paroxysmal AF not compliant with apixaban, CAD s/p CAB, PAD s/p AKA, hx prior CVA [last in July 2022], seizure disorder, HTN, HLD, COPD not on home O2, hx substance abuse presented to ED after reported seizure at home admitted for breakthrough seizures, found to have chronic nonhealing wounds with question of osteomyelitis exposed bone at L AKA site subacute CVA on CT breakthrough seizure due to noncompliance + substance abuse - loaded with IV levetiracetam on admission, continue oral; now further seizures, follow clinically chronic nonhealing wounds with osteomyelitis - s/p stump revision by fabian Reis out - on IV meropenem day , PICC placed 05/06/23 - oxycodone for pain control subacute CVA - seen by Neurology, continue ASA + atorvastatin polysubstance abuse - no withdrawal, seen by Addiction Team, declines MAT paroxysmal AF - continue metoprolol succinate, amioarone, apixaban tobaccco abuse - NRT CAD s/p CABG - continue ASA, metoprolol succinate, atorvastatin VTE ppx - apixaban dispo - STR In my clinical judgment, the patient requires continued inpatient hospitalization for the following reasons: IV ABX, awaiting STR Total time managing care of this patient today: 35 minutes. Quality Stroke Does the patient have a stroke diagnosis?: No Reason for No Anti-thrombotic by Day Two: Contraindicated VTE Prior VTE?: No VTE Risk Level:: Medical - moderate - high VTE Device Contraindication: Treatment Not Indicated VTE Drug Contraindication: N/A - Med Ordered
[2023-05-24 15:33] VITALS: BP 100/49; PULSE 55; RESP 16; TEMP 35.9; O2SAT 95
[2023-05-24] MEDS: Atorvastatin Calcium 40 MG TABLET PO (19:32)
[2023-05-24 23:08] VITALS: BP 106/51; PULSE 86; RESP 16; TEMP 36.6; O2SAT 96
[2023-05-25 07:33] VITALS: BP 136/74; PULSE 90; RESP 18; TEMP 36.3; O2SAT 94
[2023-05-25] MEDS: levETIRAcetam 500 MG TABLET PO ×2 (08:24→21:25)
[2023-05-25] MEDS: oxyCODONE HCl Immed Release 5 MG TABLET 10 MG PO ×4 (08:24→21:26)
[2023-05-25] MEDS: Metoprolol Succinate ER 25 MG TAB.ER.24H PO (08:24)
[2023-05-25] MEDS: Apixaban 5 MG TABLET PO ×2 (08:24→21:25)
[2023-05-25] MEDS: Aspirin Enteric Coated 81 MG TABLET.DR PO (08:24)
[2023-05-25] MEDS: Furosemide 20 MG TABLET PO (08:24)
[2023-05-25] MEDS: Amiodarone HCL 200 MG TABLET PO (08:24)
[2023-05-25] MEDS: 0.9 % Sodium Chloride Flush 10 ML SYRINGE 5 ML IVFLUSH ×3 (08:25→21:26)
[2023-05-25] MEDS: Hydrocortisone 1 % Ointment 28.35 GM TUBE 1 APPL TOPICAL ×2 (08:31→21:27)
--- NOTE | 2023-05-25 12:46 | HO.PM.IMPN ---
Subjective Subjective Date of Service: 05/25/23 Interval History: Tolerating IV antibiotics, no fevers, no chills, tolerating diet no nausea no vomiting no abdominal pain or diarrhea, no acute issues overnight. Review of Systems All other system reviewed and negative. Physical Exam Vital Signs: Vital Signs: Last Vital Signs Temp 97.4 F 05/25/23 07:33 Pulse 90 05/25/23 07:33 Resp 18 05/25/23 07:33 BP 136/74 05/25/23 07:33 Pulse Ox 94 05/25/23 07:33 O2 Del Method Room Air 05/25/23 07:33 O2 Flow Rate 2 04/28/23 07:46 Oxygen Flow Rate 2 04/27/23 13:32 BMI result Body Mass Index 21.4 Const: Other: Gen: Awake alert x3, in no acute distress HEENT: sclera anicteric, moist mucus membranes Neck: supple Lungs: clear to auscultation bilaterally Heart: regular rate and rhythm, no murmurs Abd: soft, non-tender, non-distended Ext: no edema, RUE PICC, L AKA stump well-healed Skin: warm/well-perfused Neuro: alert and oriented x3, no focal findings Psych: appropriate affect Objective Data Active Medications Acetaminophen (Acetaminophen 325 Mg Tablet) 650 mg PO Q6H PRN PRN Reason: Pain, Mild (Pain Scale 1-3) Last Admin: 05/24/23 09:11 Dose: 650 mg Documented By: ASHLY Amiodarone HCl (Amiodarone Hcl 200 Mg Tablet) 200 mg PO DAILY [facility] Last Admin: 05/25/23 08:24 Dose: 200 mg Documented By: DONIS Apixaban (Apixaban 5 Mg Tablet) 5 mg PO BID [facility] Last Admin: 05/25/23 08:24 Dose: 5 mg Documented By: DONIS Aspirin (Aspirin Enteric Coated 81 Mg Tablet.) 81 mg PO DAILY [facility] Last Admin: 05/25/23 08:24 Dose: 81 mg Documented By: DONIS Atorvastatin Calcium (Atorvastatin Calcium 40 Mg Tablet) 40 mg PO BEDTIME [facility] Last Admin: 05/24/23 19:32 Dose: 40 mg Documented By: LUISITO Benzonatate (Benzonatate 100 Mg Capsule) 100 mg PO TID PRN PRN Reason: Cough Docusate Sodium (Docusate Sodium 100 Mg Capsule) 100 mg PO DAILY PRN PRN Reason: Constipation Last Admin: 05/24/23 09:10 Dose: 100 mg Documented By: COTEMA Furosemide (Furosemide 20 Mg Tablet) 20 mg PO DAILY [facility]; Protocol Last Admin: 05/25/23 08:24 Dose: 20 mg Documented By: DONIS Hydrocortisone (Hydrocortisone 1 % Ointment 28.35 Gm Tube) 1 appl TOPICAL BID [facility]; Protocol Last Admin: 05/25/23 08:31 Dose: 1 appl Documented By: DONIS Meropenem 1 gm/ Sodium (Chloride) 100 mls @ 200 mls/hr IV Q8H [facility] Last Infusion: 05/25/23 09:01 Dose: Infused Documented By: DONIS Levetiracetam (Levetiracetam 500 Mg Tablet) 500 mg PO BID [facility] Last Admin: 05/25/23 08:24 Dose: 500 mg Documented By: DONIS Melatonin (Melatonin 3 Mg Tablet) 6 mg PO BEDTIME PRN PRN Reason: Insomnia Last Admin: 05/21/23 20:43 Dose: 6 mg Documented By: JOANNE Metoprolol Succinate (Metoprolol Succinate Er 25 Mg Tab.Er.24h) 25 mg PO DAILY [facility]; Protocol Last Admin: 05/25/23 08:24 Dose: 25 mg Documented By: DONIS Nicotine (Nicotine 21 Mg Patch.Td24) 21 mg TRANSDERMA DAILY [facility] Last Admin: 05/25/23 08:30 Dose: Not Given Documented By: DONIS Non-Admin Reason: Patient Refused Nystatin (Nystatin Powder 15 Gm Bottle) 1 appl TOPICAL BID [facility]; Protocol Last Admin: 05/25/23 08:31 Dose: Not Given Documented By: DONIS Non-Admin Reason: Patient Refused Ondansetron HCl (Ondansetron Hcl 4 Mg/2 Ml Vial) 4 mg IVPUSH Q8H PRN PRN Reason: Nausea and Vomiting Oxycodone HCl (Oxycodone Hcl Immed Release 5 Mg Tablet) 10 mg PO Q4H PRN PRN Reason: severe pain Last Admin: 05/25/23 12:18 Dose: 10 mg Documented By: DONIS Sodium Chloride (0.9 % Sodium Chloride Flush 3 Ml Syringe) 3 ml IVFLUSH QSHIFT [facility] Last Admin: 05/25/23 08:25 Dose: Not Given Documented By: DONIS Non-Admin Reason: PICC Sodium Chloride (0.9 % Sodium Chloride Flush 10 Ml Syringe) 5 ml IVFLUSH TID [facility] Last Admin: 05/25/23 08:25 Dose: 5 ml Documented By: DONIS Labs 05/23/23 05:53 05/23/23 05:53 Assessment and Plan (1) Seizure: Status: Acute Plan 68yo M with paroxysmal AF not compliant with apixaban, CAD s/p CAB, PAD s/p AKA, hx prior CVA [last in July 2022], seizure disorder, HTN, HLD, COPD not on home O2, hx substance abuse presented to ED after reported seizure at home admitted for breakthrough seizures, found to have chronic nonhealing wounds with question of osteomyelitis exposed bone at L AKA site subacute CVA on CT breakthrough seizure due to noncompliance + substance abuse - loaded with IV levetiracetam on admission, continue oral; no further seizures, follow clinically chronic nonhealing wounds with osteomyelitis - s/p stump revision by fabian Reis out - on IV meropenem day , PICC placed 05/06/23, oxycodone for pain control subacute CVA - seen by Neurology, continue ASA + atorvastatin polysubstance abuse - no withdrawal, seen by Addiction Team, declines MAT paroxysmal AF - continue metoprolol succinate, amioarone, apixaban tobaccco abuse -continue nicotine patch He CAD s/p CABG - continue ASA, metoprolol succinate, atorvastatin VTE ppx - apixaban dispo - STR In my clinical judgment, the patient requires continued inpatient hospitalization for the following reasons: IV ABX, awaiting STR Total time managing care of this patient today: 35 minutes. Quality Stroke Does the patient have a stroke diagnosis?: No Reason for No Anti-thrombotic by Day Two: Contraindicated VTE Prior VTE?: No VTE Risk Level:: Medical - moderate - high VTE Device Contraindication: Treatment Not Indicated VTE Drug Contraindication: N/A - Med Ordered
[2023-05-25 15:17] VITALS: BP 91/45; PULSE 55; RESP 15; TEMP 36.8; O2SAT 90
[2023-05-25 19:59] VITALS: BP 85/46; PULSE 59; RESP 17; TEMP 36.8; O2SAT 96
[2023-05-25 20:11] VITALS: BP 90/52
[2023-05-25] MEDS: Atorvastatin Calcium 40 MG TABLET PO (21:25)
[2023-05-25] MEDS: 0.9 % Sodium Chloride Flush 3 ML SYRINGE IVFLUSH (21:26)
--- NOTE | 2023-05-26 | ECG_ITS ---
Test Reason : PROLONG QTC Blood Pressure : / mmHG Vent. Rate : 057 BPM Atrial Rate : 057 BPM P-R Int : 168 ms QRS Dur : 084 ms QT Int : 492 ms P-R-T Axes : 072 081 090 degrees QTc Int : 478 ms Sinus bradycardia Possible Left atrial enlargement Minimal voltage criteria for LVH, may be normal variant ( Liberal product ) Cannot rule out Anteroseptal infarct (cited on or before 25-JUL-2022) Abnormal ECG When compared with ECG of 27-APR-2023 14:19, Vent. rate has decreased BY 47 BPM Referred By: Perlita Bradley Electronically Signed By:ABDIEL VILLARREAL
[2023-05-26] MEDS: oxyCODONE HCl Immed Release 5 MG TABLET 10 MG PO ×5 (01:44→23:15)
[2023-05-26] MEDS: Melatonin 3 MG TABLET 6 MG PO ×2 (01:47→21:44)
[2023-05-26 04:08] VITALS: BP 111/50; PULSE 53; RESP 16; TEMP 36.1; O2SAT 96
[2023-05-26 07:46] VITALS: BP 109/51; PULSE 61; RESP 16; TEMP 36.6; O2SAT 97
[2023-05-26] MEDS: Metoprolol Succinate ER 25 MG TAB.ER.24H PO (09:16)
[2023-05-26] MEDS: Amiodarone HCL 200 MG TABLET PO (09:16)
[2023-05-26] MEDS: levETIRAcetam 500 MG TABLET PO ×2 (09:16→19:07)
[2023-05-26] MEDS: 0.9 % Sodium Chloride Flush 10 ML SYRINGE 5 ML IVFLUSH ×3 (09:17→19:06)
[2023-05-26] MEDS: Aspirin Enteric Coated 81 MG TABLET.DR PO (09:17)
[2023-05-26] MEDS: Apixaban 5 MG TABLET PO ×2 (09:17→19:07)
[2023-05-26] MEDS: Hydrocortisone 1 % Ointment 28.35 GM TUBE 1 APPL TOPICAL ×2 (09:22→19:06)
--- NOTE | 2023-05-26 10:10 | MHC.CM.PN ---
EMR reviewed. Per MD rounds patient is not medically cleared for dc. Plan for [facility] on 05/29 after abx. Patient will have 20 remaining days of abx at that time and 20 remaining MCR days. CM will continue to follow.
--- NOTE | 2023-05-26 12:17 | HO.PM.IMPN ---
Subjective Subjective Date of Service: 05/26/23 Interval History: Offers no acute complaints resting comfortably, noted to have soft blood pressures, denies lightheadedness, no dizziness, no chest pain, no shortness for breath, no palpitations no acute issues overnight. Review of Systems All other system reviewed and negative Physical Exam Vital Signs: Vital Signs: Last Vital Signs Temp 97.9 F 05/26/23 07:46 Pulse 61 05/26/23 07:46 Resp 16 05/26/23 07:46 BP 109/51 L 05/26/23 07:46 Pulse Ox 97 05/26/23 07:46 O2 Del Method Room Air 05/26/23 07:46 O2 Flow Rate 2 04/28/23 07:46 Oxygen Flow Rate 2 04/27/23 13:32 BMI result Body Mass Index 21.4 Const: Other: Gen: Awake alert x3, in no acute distress HEENT: sclera anicteric, moist mucus membranes Neck: supple Lungs: clear to auscultation bilaterally Heart: regular rate and rhythm, no murmurs Abd: soft, non-tender, non-distended Ext: no edema, RUE PICC, L AKA stump well-healed Skin: warm/well-perfused Neuro: alert and oriented x3, no focal findings Psych: appropriate affect Objective Data Active Medications Acetaminophen (Acetaminophen 325 Mg Tablet) 650 mg PO Q6H PRN PRN Reason: Pain, Mild (Pain Scale 1-3) Last Admin: 05/24/23 09:11 Dose: 650 mg Documented By: ASHLY Amiodarone HCl (Amiodarone Hcl 200 Mg Tablet) 200 mg PO DAILY [facility] Last Admin: 05/26/23 09:16 Dose: 200 mg Documented By: THAO Apixaban (Apixaban 5 Mg Tablet) 5 mg PO BID [facility] Last Admin: 05/26/23 09:17 Dose: 5 mg Documented By: THAO Aspirin (Aspirin Enteric Coated 81 Mg Tablet.) 81 mg PO DAILY [facility] Last Admin: 05/26/23 09:17 Dose: 81 mg Documented By: THAO Atorvastatin Calcium (Atorvastatin Calcium 40 Mg Tablet) 40 mg PO BEDTIME [facility] Last Admin: 05/25/23 21:25 Dose: 40 mg Documented By: PEEOS Benzonatate (Benzonatate 100 Mg Capsule) 100 mg PO TID PRN PRN Reason: Cough Docusate Sodium (Docusate Sodium 100 Mg Capsule) 100 mg PO DAILY PRN PRN Reason: Constipation Last Admin: 05/24/23 09:10 Dose: 100 mg Documented By: COTALLIE Furosemide (Furosemide 20 Mg Tablet) 20 mg PO MoWeFr [facility]; Protocol Hydrocortisone (Hydrocortisone 1 % Ointment 28.35 Gm Tube) 1 appl TOPICAL BID [facility]; Protocol Last Admin: 05/26/23 09:22 Dose: 1 appl Documented By: THAO Meropenem 1 gm/ Sodium (Chloride) 100 mls @ 200 mls/hr IV Q8H [facility] Last Infusion: 05/26/23 10:29 Dose: Infused Documented By: THAO Levetiracetam (Levetiracetam 500 Mg Tablet) 500 mg PO BID [facility] Last Admin: 05/26/23 09:16 Dose: 500 mg Documented By: THAO Melatonin (Melatonin 3 Mg Tablet) 6 mg PO BEDTIME PRN PRN Reason: Insomnia Last Admin: 05/26/23 01:47 Dose: 6 mg Documented By: ADRIANO Metoprolol Succinate (Metoprolol Succinate Er 25 Mg Tab.Er.24h) 25 mg PO DAILY [facility]; Protocol Last Admin: 05/26/23 09:16 Dose: 25 mg Documented By: THAO Nicotine (Nicotine 21 Mg Patch.Td24) 21 mg TRANSDERMA DAILY [facility] Last Admin: 05/26/23 09:17 Dose: Not Given Documented By: THAO Non-Admin Reason: Patient Refused Nystatin (Nystatin Powder 15 Gm Bottle) 1 appl TOPICAL BID [facility]; Protocol Last Admin: 05/26/23 09:25 Dose: Not Given Documented By: THAO Non-Admin Reason: Patient Refused Ondansetron HCl (Ondansetron Hcl 4 Mg/2 Ml Vial) 4 mg IVPUSH Q8H PRN PRN Reason: Nausea and Vomiting Oxycodone HCl (Oxycodone Hcl Immed Release 5 Mg Tablet) 10 mg PO Q4H PRN PRN Reason: severe pain Last Admin: 05/26/23 09:16 Dose: 10 mg Documented By: THAO Sodium Chloride (0.9 % Sodium Chloride Flush 3 Ml Syringe) 3 ml IVFLUSH QSHIFT [facility] Last Admin: 05/26/23 09:04 Dose: Not Given Documented By: THAO Non-Admin Reason: PICC line Sodium Chloride (0.9 % Sodium Chloride Flush 10 Ml Syringe) 5 ml IVFLUSH TID [facility] Last Admin: 05/26/23 09:17 Dose: 5 ml Documented By: THAO Labs 05/23/23 05:53 05/23/23 05:53 Assessment and Plan (1) Seizure: Status: Acute Plan 68yo M with paroxysmal AF not compliant with apixaban, CAD s/p CAB, PAD s/p AKA, hx prior CVA [last in July 2022], seizure disorder, HTN, HLD, COPD not on home O2, hx substance abuse presented to ED after reported seizure at home admitted for breakthrough seizures, found to have chronic nonhealing wounds with question of osteomyelitis exposed bone at L AKA site subacute CVA on CT breakthrough seizure due to noncompliance + substance abuse - loaded with IV levetiracetam on admission, continue oral; no further seizures, follow clinically chronic nonhealing wounds with osteomyelitis - s/p stump revision by fabian Reis out - on IV meropenem day , PICC placed 05/06/23, oxycodone for pain control subacute CVA - seen by Neurology, continue ASA + atorvastatin polysubstance abuse - no withdrawal, seen by Addiction Team, declines MAT paroxysmal AF - continue metoprolol succinate, amioarone, apixaban ekg showed stable qtc cont amio and metoprolol tobaccco abuse -continue nicotine patch CAD s/p CABG - continue ASA, metoprolol succinate, atorvastatin noted to have soft blood pressures patient remains asymptomatic, will change Lasix to Friday and Friday. VTE ppx - apixaban dispo - STR In my clinical judgment, the patient requires continued inpatient hospitalization for the following reasons: IV ABX, awaiting STR Total time managing care of this patient today: 35 minutes. Quality Stroke Does the patient have a stroke diagnosis?: No Reason for No Anti-thrombotic by Day Two: Contraindicated VTE Prior VTE?: No VTE Risk Level:: Medical - moderate - high VTE Device Contraindication: Treatment Not Indicated VTE Drug Contraindication: N/A - Med Ordered
--- NOTE | 2023-05-26 14:32 | MHC.CLN ---
F/U PO INTAKE REMAINS GOOD WITH MOST MEALS 100%. DIET RX:2 GRAM SODIUM-APPROPRIATE. PATIENT WITH MULTIPLE PRESSURE INJURIES. RECEIVING ENSURE MAX BID TO PROMOTE WOUND HEALING. PROVIDES 300 KCALS, 60 G PROTEIN. CONTINUE TO MONITOR PO INTAKE AND ENCOURAGE SUPPLEMENT.
[2023-05-26 16:00] VITALS: BP 105/60; PULSE 80; RESP 15; TEMP 36.6; O2SAT 95
[2023-05-26] MEDS: Atorvastatin Calcium 40 MG TABLET PO (19:07)
[2023-05-26] MEDS: Nystatin Powder 15 GM BOTTLE 1 APPL TOPICAL (19:07)
[2023-05-26 23:04] VITALS: BP 95/50; PULSE 57; RESP 14; TEMP 36.8; O2SAT 96
[2023-05-27] MEDS: 0.9 % Sodium Chloride Flush 3 ML SYRINGE IVFLUSH ×2 (00:54→15:38)
[2023-05-27 07:41] VITALS: BP 109/60; PULSE 55; RESP 12; TEMP 36.9; O2SAT 94
[2023-05-27] MEDS: Amiodarone HCL 200 MG TABLET PO (08:41)
[2023-05-27] MEDS: Metoprolol Succinate ER 25 MG TAB.ER.24H PO (08:41)
[2023-05-27] MEDS: Apixaban 5 MG TABLET PO ×2 (08:42→20:24)
[2023-05-27] MEDS: oxyCODONE HCl Immed Release 5 MG TABLET 10 MG PO ×4 (08:42→21:37)
[2023-05-27] MEDS: levETIRAcetam 500 MG TABLET PO ×2 (08:42→20:24)
[2023-05-27] MEDS: Aspirin Enteric Coated 81 MG TABLET.DR PO (08:42)
[2023-05-27] MEDS: Hydrocortisone 1 % Ointment 28.35 GM TUBE 1 APPL TOPICAL (08:48)
[2023-05-27] MEDS: 0.9 % Sodium Chloride Flush 10 ML SYRINGE 5 ML IVFLUSH (08:50)
--- NOTE | 2023-05-27 11:10 | P.PNIM_ITS ---
Subjective Subjective Date of Service: 05/27/23 Interval History: Complaining of itching left side of neck, times few days no other area of rash or itching, no fevers, no chills, no headache or dizziness, no diarrhea tolerating diet no other acute issues overnight. Review of Systems All other system reviewed and negative. Physical Exam 2 Vital Signs: Vital Signs: Last Vital Signs Temp 98.5 F 05/27/23 07:41 Pulse 55 05/27/23 07:41 Resp 12 05/27/23 07:41 BP 109/60 05/27/23 07:41 Pulse Ox 94 05/27/23 07:41 O2 Del Method Room Air 05/27/23 07:41 O2 Flow Rate 2 04/28/23 07:46 Oxygen Flow Rate 2 04/27/23 13:32 BMI result Body Mass Index 21.4 Const: Other: Gen: Awake alert x3, in no acute distress HEENT: sclera anicteric, moist mucus membranes Neck: supple, no JVD,/rash left side of neck Lungs: clear to auscultation bilaterally Heart: regular rate and rhythm, no murmurs Abd: soft, non-tender, non-distended Ext: no edema, RUE PICC, L AKA stump well-healed Neuro: alert and oriented x3, no focal findings Psych: appropriate affect Objective Data Active Medications Acetaminophen (Acetaminophen 325 Mg Tablet) 650 mg PO Q6H PRN PRN Reason: Pain, Mild (Pain Scale 1-3) Last Admin: 05/24/23 09:11 Dose: 650 mg Documented By: ASHLY Amiodarone HCl (Amiodarone Hcl 200 Mg Tablet) 200 mg PO DAILY [facility] Last Admin: 05/27/23 08:41 Dose: 200 mg Documented By: THAO Apixaban (Apixaban 5 Mg Tablet) 5 mg PO BID [facility] Last Admin: 05/27/23 08:42 Dose: 5 mg Documented By: THAO Aspirin (Aspirin Enteric Coated 81 Mg Tablet.) 81 mg PO DAILY [facility] Last Admin: 05/27/23 08:42 Dose: 81 mg Documented By: THAO Atorvastatin Calcium (Atorvastatin Calcium 40 Mg Tablet) 40 mg PO BEDTIME [facility] Last Admin: 05/26/23 19:07 Dose: 40 mg Documented By: HO.VENLA Benzonatate (Benzonatate 100 Mg Capsule) 100 mg PO TID PRN PRN Reason: Cough Docusate Sodium (Docusate Sodium 100 Mg Capsule) 100 mg PO DAILY PRN PRN Reason: Constipation Last Admin: 05/24/23 09:10 Dose: 100 mg Documented By: COTEMA Furosemide (Furosemide 20 Mg Tablet) 20 mg PO MoWeFr [facility]; Protocol Hydrocortisone (Hydrocortisone 1 % Ointment 28.35 Gm Tube) 1 appl TOPICAL BID [facility]; Protocol Last Admin: 05/27/23 08:48 Dose: 1 appl Documented By: THAO Meropenem 1 gm/ Sodium (Chloride) 100 mls @ 200 mls/hr IV Q8H [facility] Last Infusion: 05/27/23 09:28 Dose: Infused Documented By: THAO Levetiracetam (Levetiracetam 500 Mg Tablet) 500 mg PO BID [facility] Last Admin: 05/27/23 08:42 Dose: 500 mg Documented By: THAO Melatonin (Melatonin 3 Mg Tablet) 6 mg PO BEDTIME PRN PRN Reason: Insomnia Last Admin: 05/26/23 21:44 Dose: 6 mg Documented By: ODRISGloria Metoprolol Succinate (Metoprolol Succinate Er 25 Mg Tab.Er.24h) 25 mg PO DAILY [facility]; Protocol Last Admin: 05/27/23 08:41 Dose: 25 mg Documented By: THAO Nicotine (Nicotine 21 Mg Patch.Td24) 21 mg TRANSDERMA DAILY [facility] Last Admin: 05/27/23 08:52 Dose: Not Given Documented By: THAO Non-Admin Reason: Patient Refused Nystatin (Nystatin Powder 15 Gm Bottle) 1 appl TOPICAL BID [facility]; Protocol Last Admin: 05/27/23 08:53 Dose: Not Given Documented By: THAO Non-Admin Reason: Patient Refused Ondansetron HCl (Ondansetron Hcl 4 Mg/2 Ml Vial) 4 mg IVPUSH Q8H PRN PRN Reason: Nausea and Vomiting Oxycodone HCl (Oxycodone Hcl Immed Release 5 Mg Tablet) 10 mg PO Q4H PRN PRN Reason: severe pain Last Admin: 05/27/23 08:42 Dose: 10 mg Documented By: THAO Sodium Chloride (0.9 % Sodium Chloride Flush 3 Ml Syringe) 3 ml IVFLUSH QSHIFT [facility] Last Admin: 05/27/23 08:50 Dose: Not Given Documented By: THAO Non-Admin Reason: Duplicate Order Sodium Chloride (0.9 % Sodium Chloride Flush 10 Ml Syringe) 5 ml IVFLUSH TID [facility] Last Admin: 05/27/23 08:50 Dose: 5 ml Documented By: THAO Labs 05/23/23 05:53 05/23/23 05:53 Assessment and Plan (1) Seizure: Status: Acute Plan 68yo M with paroxysmal AF not compliant with apixaban, CAD s/p CAB, PAD s/p AKA, hx prior CVA [last in July 2022], seizure disorder, HTN, HLD, COPD not on home O2, hx substance abuse presented to ED after reported seizure at home admitted for breakthrough seizures, found to have chronic nonhealing wounds with question of osteomyelitis exposed bone at L AKA site subacute CVA on CT breakthrough seizure due to noncompliance + substance abuse - loaded with IV levetiracetam on admission, continue Keppra, no further seizures, follow clinically chronic nonhealing wounds with osteomyelitis - s/p stump revision by fabian Reis out - on IV meropenem day , PICC placed 05/06/23, oxycodone for pain control subacute CVA - seen by Neurology, continue ASA + atorvastatin polysubstance abuse - no withdrawal, seen by Addiction Team, declines MAT paroxysmal AF - continue metoprolol succinate, amioarone, apixaban ekg showed stable qtc cont amio and metoprolol tobaccco abuse -continue nicotine patch CAD s/p CABG - continue ASA, metoprolol succinate, atorvastatin noted to have soft blood pressures patient remains asymptomatic, will change Lasix to Friday and Friday. Localized rash not related to antibiotics will apply calamine lotion and steroid cream VTE ppx - apixaban dispo - STR In my clinical judgment, the patient requires continued inpatient hospitalization for the following reasons: IV ABX, awaiting STR Total time managing care of this patient today: 35 minutes. Quality Stroke Does the patient have a stroke diagnosis?: No Reason for No Anti-thrombotic by Day Two: Contraindicated VTE Prior VTE?: No VTE Risk Level:: Medical - moderate - high VTE Device Contraindication: Treatment Not Indicated VTE Drug Contraindication: N/A - Med Ordered
--- NOTE | 2023-05-27 13:29 | PC.NURSE ---
Patient refusing all dressing to be changed except right hip wound. Per patient if wound dressing is not falling off it doesn't need to be changed . Patient made aware of importance of changing dressings daily, verbalized understanding. Right hip dressing changed per wound care notes. Patient tolerated well, all needs met.
[2023-05-27 15:02] VITALS: PULSE 55; RESP 15; TEMP 36.6; O2SAT 94
[2023-05-27 15:36] VITALS: BP 85/50
[2023-05-27] MEDS: 0.9 % Sodium Chloride 1,000 ML 100 ML IVCONT (16:00)
[2023-05-27] MEDS: Atorvastatin Calcium 40 MG TABLET PO (20:24)
[2023-05-27] MEDS: Calamine/Zinc Oxide LOTION 177 ML BOTTLE 1 APPL TOPICAL (20:24)
[2023-05-27] MEDS: Melatonin 3 MG TABLET 6 MG PO (21:37)
[2023-05-27 23:40] VITALS: BP 122/59; PULSE 51; RESP 18; TEMP 36.5; O2SAT 98
[2023-05-28] MEDS: oxyCODONE HCl Immed Release 5 MG TABLET 10 MG PO ×5 (03:35→20:25)
[2023-05-28 07:18] VITALS: BP 121/58; PULSE 48; RESP 18; TEMP 36.6; O2SAT 99
[2023-05-28] MEDS: Amiodarone HCL 200 MG TABLET PO (08:33)
[2023-05-28] MEDS: Aspirin Enteric Coated 81 MG TABLET.DR PO (08:33)
[2023-05-28] MEDS: Apixaban 5 MG TABLET PO ×2 (08:33→20:23)
[2023-05-28] MEDS: levETIRAcetam 500 MG TABLET PO ×2 (08:33→20:23)
[2023-05-28] MEDS: 0.9 % Sodium Chloride Flush 10 ML SYRINGE 5 ML IVFLUSH ×3 (08:33→21:28)
[2023-05-28] MEDS: Hydrocortisone 1 % Ointment 28.35 GM TUBE 1 APPL TOPICAL ×2 (08:43→20:28)
--- NOTE | 2023-05-28 11:43 | P.PNIM_ITS ---
Subjective Subjective Date of Service: 05/28/23 Interval History: Resting comfortably, offers no acute complaints of lightheadedness, no dizziness, no chest pain, no palpitation, tolerating diet no nausea, no vomiting, no abdominal pain, no recurrent fevers, no chills. Noted to have soft blood pressures and bradycardia. Review of Systems All other system reviewed and negative. Physical Exam 2 Vital Signs: Vital Signs: Last Vital Signs Temp 97.8 F 05/28/23 07:18 Pulse 48 L 05/28/23 07:18 Resp 18 05/28/23 07:18 BP 121/58 L 05/28/23 07:18 Pulse Ox 99 05/28/23 07:18 O2 Del Method Room Air 05/28/23 07:18 O2 Flow Rate 2 04/28/23 07:46 Oxygen Flow Rate 2 04/27/23 13:32 BMI result Body Mass Index 21.4 Const: Other: Gen: Awake alert x3, in no acute distress HEENT: sclera anicteric, moist mucus membranes Neck: supple, no JVD,/rash left side of neck Lungs: clear to auscultation bilaterally Heart: regular rate and rhythm, no murmurs Abd: soft, non-tender, non-distended Ext: no edema, RUE PICC, L AKA stump well-healed Neuro: alert and oriented x3, no focal findings Psych: appropriate affect Objective Data Active Medications Acetaminophen (Acetaminophen 325 Mg Tablet) 650 mg PO Q6H PRN PRN Reason: Pain, Mild (Pain Scale 1-3) Last Admin: 05/24/23 09:11 Dose: 650 mg Documented By: ASHLY Amiodarone HCl (Amiodarone Hcl 200 Mg Tablet) 200 mg PO DAILY [facility] Last Admin: 05/28/23 08:33 Dose: 200 mg Documented By: THAO Apixaban (Apixaban 5 Mg Tablet) 5 mg PO BID [facility] Last Admin: 05/28/23 08:33 Dose: 5 mg Documented By: THAO Aspirin (Aspirin Enteric Coated 81 Mg Tablet.) 81 mg PO DAILY [facility] Last Admin: 05/28/23 08:33 Dose: 81 mg Documented By: THAO Atorvastatin Calcium (Atorvastatin Calcium 40 Mg Tablet) 40 mg PO BEDTIME [facility] Last Admin: 01/16/24 20:24 Dose: 40 mg Documented By: LISE Benzonatate (Benzonatate 100 Mg Capsule) 100 mg PO TID PRN PRN Reason: Cough Calamine (Calamine/Zinc Oxide Lotion 177 Ml Bottle) 1 appl TOPICAL [facility]; Protocol PRN Reason: neck rash Last Admin: 05/27/23 20:24 Dose: 1 appl Documented By: LISE Docusate Sodium (Docusate Sodium 100 Mg Capsule) 100 mg PO DAILY PRN PRN Reason: Constipation Last Admin: 05/24/23 09:10 Dose: 100 mg Documented By: COTEMA Furosemide (Furosemide 20 Mg Tablet) 20 mg PO MoWeFr [facility]; Protocol Last Admin: 05/28/23 08:38 Dose: Not Given Documented By: THAO Non-Admin Reason: held Hydrocortisone (Hydrocortisone 1 % Ointment 28.35 Gm Tube) 1 appl TOPICAL BID [facility]; Protocol Last Admin: 05/28/23 08:43 Dose: 1 appl Documented By: THAO Meropenem 1 gm/ Sodium (Chloride) 100 mls @ 200 mls/hr IV Q8H [facility] Last Infusion: 05/28/23 09:10 Dose: Infused Documented By: THAO Levetiracetam (Levetiracetam 500 Mg Tablet) 500 mg PO BID [facility] Last Admin: 05/28/23 08:33 Dose: 500 mg Documented By: THAO Melatonin (Melatonin 3 Mg Tablet) 6 mg PO BEDTIME PRN PRN Reason: Insomnia Last Admin: 05/27/23 21:37 Dose: 6 mg Documented By: LISE Nicotine (Nicotine 21 Mg Patch.Td24) 21 mg TRANSDERMA DAILY [facility] Last Admin: 05/28/23 08:43 Dose: Not Given Documented By: HTAO Non-Admin Reason: Patient Refused Nystatin (Nystatin Powder 15 Gm Bottle) 1 appl TOPICAL BID [facility]; Protocol Last Admin: 05/28/23 08:44 Dose: Not Given Documented By: THAO Non-Admin Reason: Patient Refused Ondansetron HCl (Ondansetron Hcl 4 Mg/2 Ml Vial) 4 mg IVPUSH Q8H PRN PRN Reason: Nausea and Vomiting Oxycodone HCl (Oxycodone Hcl Immed Release 5 Mg Tablet) 10 mg PO Q4H PRN PRN Reason: severe pain Last Admin: 05/28/23 08:32 Dose: 10 mg Documented By: THAO Sodium Chloride (0.9 % Sodium Chloride Flush 3 Ml Syringe) 3 ml IVFLUSH QSHIFT [facility] Last Admin: 05/28/23 07:28 Dose: Not Given Documented By: THAO Non-Admin Reason: pt has PICC Sodium Chloride (0.9 % Sodium Chloride Flush 10 Ml Syringe) 5 ml IVFLUSH TID [facility] Last Admin: 05/28/23 08:33 Dose: 5 ml Documented By: THAO Labs 05/23/23 05:53 05/23/23 05:53 Assessment and Plan (1) Seizure: Status: Acute Plan 68yo M with paroxysmal AF not compliant with apixaban, CAD s/p CAB, PAD s/p AKA, hx prior CVA [last in July 2022], seizure disorder, HTN, HLD, COPD not on home O2, hx substance abuse presented to ED after reported seizure at home admitted for breakthrough seizures, found to have chronic nonhealing wounds with question of osteomyelitis exposed bone at L AKA site subacute CVA on CT breakthrough seizure due to noncompliance + substance abuse - loaded with IV levetiracetam on admission, continue Keppra, no further seizures, follow clinically chronic nonhealing wounds with osteomyelitis - s/p stump revision by fabian Reis out - on IV meropenem day , PICC placed 05/06/23, oxycodone for pain control subacute CVA - seen by Neurology, continue ASA + atorvastatin polysubstance abuse - no withdrawal, seen by Addiction Team, declines MAT paroxysmal AF - noted to have soft blood pressures and bradycardia will DC metoprolol, continue amioarone, apixaban ekg showed stable qtc tobaccco abuse -continue nicotine patch CAD s/p CABG - continue ASA, atorvastatin noted to have soft blood pressures patient remains asymptomatic, will DC Lasix and metoprolol can use Lasix as needed, echo showed EF 40-45%, impaired relaxation with underlying regional wall motion abnormality, consistent with ischemic cardiomyopathy. Localized rash to left side of neck improving, not related to antibiotics,on calamine lotion and steroid cream VTE ppx - apixaban dispo - STR In my clinical judgment, the patient requires continued inpatient hospitalization for the following reasons: IV ABX, awaiting STR Total time managing care of this patient today: 35 minutes. Quality Stroke Does the patient have a stroke diagnosis?: No Reason for No Anti-thrombotic by Day Two: Contraindicated VTE Prior VTE?: No VTE Risk Level:: Medical - moderate - high VTE Device Contraindication: Treatment Not Indicated VTE Drug Contraindication: N/A - Med Ordered
--- NOTE | 2023-05-28 15:05 | HO.WOUND ---
Wound Consult: Follow up for multiple wounds pt agreeable to assessment of Right Hip / Trochanter site as this was visible while in recliner and dressing had fallen off per pt statement. 68yr old male admitted to [facility] [place] on?04/27/23 17:52 - See progress notes and H&P for detailed history. Pt was irritable at bedside today and requested he return to bed however he reports he was just up recently to the recliner chair. He was agreeable to Right Hip Trochanter assessment since dressing fell off while moving into recliner chair. will attempt other wound assessment at future follow up. Details from previous assessment this admission - Wound consult follow up request by provider prior to d/c today for Bilateral Trochanter sites, right Ischium . Pt was agreeable to assessment and photo documentation. Information from previous assessment: He reports he does not have current provider covering these wounds - he reports he has never sough treatment for hip and buttock wounds - chart review reveals pt did in fact follow with outpt wound clinic for two visits on in November and last one 12/17/22. Wound were charted as following - Right Hip Stage 4 and Left buttock Stage 4 and right ischium stage 3. Currently Left buttock healed - evidence of previous injury noted with scar tissue formation and hypopigmentation noted. and Right buttock / ischium is currently stage 4 as it probes to bone although bone does not feel frankly exposed. Pt states these wound may be caused by his substance use - he denies injecting but reports he does smoke heroin regularly - he reports he does not feel they are pressure related - attempted to educate pt on pressure injuries causes and preventative treatments - he reports understanding but does not agree these are from prolonged pressure exposure - despite his confirmation of lack of mobility and lack of consistent repositioning and home ervices. Of note wound remain consistent with pressure presentation and are over bony prominences and pt appears malnourished at this time. Nutrition is following and orders are in place. Pt educated to continue with topical care and off loading and to follow up with Outpt Wound Clinic at time of D/C - he reports understanding. Todays Assessment : No new topical recommendations needed. Right Troachanter / Hip Etiology: Previously documented stage 4 pressure injury POA Measurements: 2cm x 1.8cm x 0.4cm with circumferential undermining max depth at 9 o'clock 2cm Wound Bed: red pink moist tissue with central adherent thick yellow slough and thin layer of slough over wound bed Drainage / Odor: no dressing in place at time of assessment Edges: ? epibole unattached Valarie wound: resolved erythema No Induration, Fluctuance or Warmth noted Pain: Mild pain with cleansing Goals of Treatment: ?Off Load pressure and Alginate for moisture management Recommendations: 1. Turn and Reposition every 2 hours and as needed for patient comfort. Use pillow or wedges to aid in supporting off loaded position. 2. Off Load all bony prominences with use of pillows and heel boots if needed.? Apply Preventative foams where needed. ? 3. Monitor for incontinence and moisture control, use barrier creams when needed for prevention and treatment. 4. Provide adequate and supplemental nutrition. - Nutrition following and orders in place. 5. Continue low air loss mattress. 6. Right (Hip) Trochanter and Right Ischium - Cleanse and irrigate with NS, Pat dry. Apply barrier wipe to periwound. Cover and lightly pack wound beds with Alginate - be sure to leave a wick for easy removal. cover with foam dressing. Change Daily. 7. Left (Hip) Trochanter - Cleanse with NS, Pat dry. Apply barrier wipe to periwound. Cover with foam dressing peel back and assess Q shift and change every 3 days and PRN for soiling. 8. Sacrum / Coccyx - Cleanse with NS, Pat dry. Apply barrier wipe allow to dry. Cover with foam dressing peel back and assess Q shift and change every 3 days and PRN for soiling. 9. Left residual leg - Cleanse with NS. Pat Dry. Apply dry ABD pad secure with tape. Change Daily. Wound Clinic Follow up Recommend follow up out patient Wound Clinic at [address] [place] [id number] and to call for an appointment at time of discharge. [phone].? Re-consult wound care Nurse for wound deterioration or wound changes.
[2023-05-28 15:09] VITALS: BP 117/51; PULSE 57; RESP 18; TEMP 36.7; O2SAT 96
--- NOTE | 2023-05-28 18:20 | PC.NURSE ---
patient c/o of pain at PICC line site, PICC flushed with no issues, no signs of infiltration or leakage, Dr. March made aware, no new orders at this time. Pt given ice pack to help with pain
[2023-05-28] MEDS: Atorvastatin Calcium 40 MG TABLET PO (20:23)
[2023-05-28 20:30] VITALS: BP 139/49; PULSE 65
[2023-05-28 23:18] VITALS: BP 108/62; PULSE 56; RESP 18; TEMP 36.8; O2SAT 98
[2023-05-29] MEDS: oxyCODONE HCl Immed Release 5 MG TABLET 10 MG PO ×3 (00:34→15:56)
[2023-05-29 08:00] VITALS: BP 120/58; PULSE 59; RESP 17; TEMP 36.8; O2SAT 97
[2023-05-29 08:51] LABS: Hematocrit 36.7 % (42.0-52.0); Mean Corpuscular HGB Conc 32.7 g/dl (31.0-36.0); Mean Corpuscular Hemoglobin 27.7 pg (27.0-33.0); Mean Corpuscular Volume 84.8 fL (80.0-98.0); Mean Platelet Volume 10.4 fL (9.4-12.4); Platelet Count 142 X10*3/uL (160-400); Red Blood Count 4.33 X10*6/uL (4.60-5.80); Red Cell Distribution Width 19.5 % (11.0-16.0)
[2023-05-29 09:06] LABS: Anion Gap 11 (12-20); Blood Urea Nitrogen 27 mg/dL (9-16); Calcium 9.3 mg/dL (8.4-10.2); Carbon Dioxide 27 mmol/L (22-29); Chloride 106 mmol/L (96-108); Creatinine Clr Calc Pharmacy 49.9; Estimated Glomerular Filt Rate > 60; Glucose Random 89 mg/dL (60-115); Potassium 4.6 mmol/L (3.3-5.1); Sodium 139 mmol/L (135-145)
[2023-05-29] MEDS: Amiodarone HCL 200 MG TABLET PO (10:17)
[2023-05-29] MEDS: Aspirin Enteric Coated 81 MG TABLET.DR PO (10:17)
[2023-05-29] MEDS: levETIRAcetam 500 MG TABLET PO (10:17)
[2023-05-29] MEDS: Apixaban 5 MG TABLET PO (10:17)
[2023-05-29] MEDS: 0.9 % Sodium Chloride Flush 3 ML SYRINGE IVFLUSH ×2 (10:22→15:56)
[2023-05-29] MEDS: 0.9 % Sodium Chloride Flush 10 ML SYRINGE 5 ML IVFLUSH ×2 (10:22→14:37)
[2023-05-29] MEDS: Hydrocortisone 1 % Ointment 28.35 GM TUBE 1 APPL TOPICAL (10:22)
--- NOTE | 2023-05-29 12:56 | HO.WOUND ---
Wound Consult: Follow up for multiple wounds 68yr old male admitted to [facility] [place] on?04/27/23 17:52 - See progress notes and H&P for detailed history. Pt was irritable at bedside today initially he was agreeable to consultation and then he witches and becomes angry and yells to leave him alone. Supportive listening and calm talking did soften his demeanor and he was agreeable to me finishing his assessment. Ultimately he allowed assessment to the left trochanter site but requested I reapply the same foam dressing, Thre was no drainage ntoed on the foam dressing and the foam was replaced as this site is resolving. Details from previous assessment this admission - Wound consult follow up request by provider prior to d/c today for Bilateral Trochanter sites, right Ischium . Pt was agreeable to assessment and photo documentation. Information from previous assessment: He reports he does not have current provider covering these wounds - he reports he has never sough treatment for hip and buttock wounds - chart review reveals pt did in fact follow with outpt wound clinic for two visits on in November and last one 12/17/22. Wound were charted as following - Right Hip Stage 4 and Left buttock Stage 4 and right ischium stage 3. Currently Left buttock healed - evidence of previous injury noted with scar tissue formation and hypopigmentation noted. and Right buttock / ischium is currently stage 4 as it probes to bone although bone does not feel frankly exposed. Pt states these wound may be caused by his substance use - he denies injecting but reports he does smoke heroin regularly - he reports he does not feel they are pressure related - attempted to educate pt on pressure injuries causes and preventative treatments - he reports understanding but does not agree these are from prolonged pressure exposure - despite his confirmation of lack of mobility and lack of consistent repositioning and home ervices. Of note wound remain consistent with pressure presentation and are over bony prominences and pt appears malnourished at this time. Nutrition is following and orders are in place. Pt educated to continue with topical care and off loading and to follow up with Outpt Wound Clinic at time of D/C - he reports understanding. Todays Assessment : No new topical recommendations needed. Right Troachanter / Hip Etiology: Previously documented stage 4 pressure injury POA Measurements: 2cm x 1.8cm x 0.4cm with circumferential undermining max depth at 9 o'clock 2cm Wound Bed: red pink moist tissue with central adherent thick yellow slough and thin layer of slough over wound bed Drainage / Odor: dressing in place at time of assessment min yellow drainage noted Edges: ? epibole unattached Valarie wound: resolved erythema No Induration, Fluctuance or Warmth noted Pain: Mild pain with cleansing Goals of Treatment: ?Off Load pressure and Alginate for moisture management Left residual leg wound Etiology: Surgical site - AKA revision Wound Bed: well approximated surgical incision - staple since removed clean and intact no active oozing noted - dried drainage noted to central incision Drainage / Odor: dried Edges: ? well approximated Valarie wound: intact no erythema noted Pain: denies pain Goals of Treatment: ?Keep clean dry and intact with dry dressing. Left Troachanter / Hip Etiology: Resurfacing Stage 3 pressure injury POA Measurements: 0.1cm x 0.2cm x 0.1cm Wound Bed: moist pale pink wound bed Drainage / Odor: no drainage - no odor noted Edges: ? attached Valarie wound: No Induration, Fluctuance or Warmth noted Pain: denies pain Goals of Treatment: ?Off Load pressure and Foam for moist wound healing and to protect from friction Right Ischium / Buttocks Etiology: Stage 4 Pressure Injury POA - Previously documented stage 3 pressure injury with out pt WCC Measurements: 0.2cm x 0.3cm x 1.2cm Wound Bed:unable to visualize wound bed - but currently does not feel as if it is probing to depth of bone - structure probed but not frankly exposed. Drainage / Odor: scant serosang drainage noted on foam dressing - packing removed - no odor noted Edges: ? unattached Valarie wound:Clean and slight maceration noted - No Induration, Fluctuance or Warmth noted Pain: Mild pain with cleansing and probing Goals of Treatment: ?Off Load pressure and Alginate packing for moisture management Coccyx / sacrum assessed - healed intact tissue no open wound noted - previous full thickness tissue loss noted Recommendations: 1. Turn and Reposition every 2 hours and as needed for patient comfort. Use pillow or wedges to aid in supporting off loaded position. 2. Off Load all bony prominences with use of pillows and heel boots if needed.? Apply Preventative foams where needed. ? 3. Monitor for incontinence and moisture control, use barrier creams when needed for prevention and treatment. 4. Provide adequate and supplemental nutrition. - Nutrition following and orders in place. 5. Continue low air loss mattress. 6. Right (Hip) Trochanter and Right Ischium - Cleanse and irrigate with NS, Pat dry. Apply barrier wipe to periwound. Cover and lightly pack wound beds with Alginate - be sure to leave a wick for easy removal. cover with foam dressing. Change Daily. 7. Left (Hip) Trochanter - Cleanse with NS, Pat dry. Apply barrier wipe to periwound. Cover with foam dressing peel back and assess Q shift and change every 3 days and PRN for soiling. 8. Sacrum / Coccyx - Cleanse with NS, Pat dry. Apply barrier wipe allow to dry. Cover with foam dressing peel back and assess Q shift and change every 3 days and PRN for soiling. 9. Left residual leg - Cleanse with NS. Pat Dry. Apply dry ABD pad secure with tape. Change Daily. Wound Clinic Follow up Recommend follow up out patient Wound Clinic at [address] [place] [id number] and to call for an appointment at time of discharge. [phone].? Re-consult wound care Nurse for wound deterioration or wound changes.
--- NOTE | 2023-05-29 13:24 | PM.DS ---
DS: Providers Provider Date of Service: 05/29/23 Date of admission: 04/27/23 17:52 Primary care physician: Tony Rhodes MD Consults: 04/27/23 18:00 Consult to Neurology Routine Consulting Provider: [facility] Reason for consultation: Seizure, likely subacute cerebellar CVA on CT 04/27/23 18:02 Consult to General Surgery Routine Consulting Provider: [facility] General Surgeons Reason for consultation: Stump wound w/exposed femur, bilat open hip wounds Consult to Infectious Diseases Routine Consulting Provider: [facility] Infectious Disease Reason for consultation: Stump wound w/exposed femur, bilat open hip wounds Consult to Wound Care Routine Reason for consultation: Stump wound w/exposed femur, bilat open hip wounds 04/27/23 18:29 Addiction Medicine Routine Consulting Provider: [facility] Reason for consultation: Long hx of heroin and cocaine use 05/01/23 08:11 Consult to Cardiology Routine Consulting Provider: [facility] Cardiovascular Services Reason for consultation: discuss utility of restarting amiodarone with cardiology given history of 05/08/23 09:03 Consult to Infectious Diseases Stat Consulting Provider: [facility] Infectious Disease Reason for consultation: NEW MEROPEN[place] 05/12/23 09:43 Consult to Wound Care Routine Reason for consultation: impaired skin integrity DS: Diagnosis Discharge Diagnosis (1) Seizure: Status: Acute DS: Summary Hospital Course Hospital Course: History of presenting illness: Date of Service: 04/27/23 Attending physician on admission: Perlita Bradley Chief Complaint: Seizure at home Pt is a 68-year-old male with a PMH significant for?paroxysmal AFib not compliant with Eliquis, CAD s/p CABG, PAD s/p AKA, hx prior CVAs (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 Patient is alert and oriented x3, but unaware of what brought him into the hospital. Attempted to call his spouse but received no answer. Called his brother, his secondary contact, who knew no details other than pt's called the ambulance after he suffered an apparent seizure at home. Patient himself denies any acute medical complaints, and is rather naive about his own PMH. Denies chest pain/pressure, palpitations. No headache, acute vision changes. No hemiparesis, numbness and tingling, or weakness. Denies shortness of breath. No fever, chills, nausea, vomiting, abdominal pain. Patient does admit he has been noncompliant with his home medications, saying that he stopped taking them sometime ago; is unable to clarify when he last took his medications or why he stopped taking them. Patient does admit to recently using both cocaine and heroin, though he cannot state exactly when or how much he last used. Brother verifies significant past history of substance abuse, and believes patient uses heroin almost daily. Upon examination in the ED patient has multiple chronic, open wounds, including the exposed end of left femur from AKA stump, and bilateral hip wounds. Patient states he mostly stays in bed during the day, though he does have a wheelchair he can use for ambulation around the house.Of note, patient was last at the hospital in July of this year and admitted to ICU for acute CVA status post tPA. Patient did get a carotid Doppler which showed right severe carotid stenosis, but patient refused any further workup including echocardiogram, MRI, or further monitoring. He than left AMA less than 24 hours after presentation to the ED. patient states he did not follow-up with PCP, and has not seen any clinician since leaving the hospital. In the ED pt was afebrile and normotensive, but tachycardic up to 111 and tachypneic up to 22, satting at 91% on RA. Labs were significant for leukocytosis of 14.6 {chronically elevated), stable microcytic anemia of H&H 12.2/37.4, and MCV 78.9, otherwise largely unremarkable. Electrolytes grossly WNL. Renal function baseline. Lactic acid WNL at 1.0. Hepatic function WNL. Troponin detectable at 6.1. ESR mildly elevated at 19 with C reactive protein 0.91. CXR was unremarkable. X-ray of left femur showed mid left femoral amputation, but otherwise unremarkable. X-ray of hip and pelvis found no acute fracture or dislocation in left hip and unremarkable right hip. CT?of head showed multi focal hypodensity involving the left cerebellar hemisphere, new when compared to head CT on 01/19/2023. Findings concerning for acute to subacute infarct. EKG demonstrated sinus tachycardia of 108 with PACs and aberrant conduction, but no evidence of significant ST elevations or depressions. Pt was treated with Keppra, IVF, Zosyn and vancomycin. Pt will be admitted to the hospital for treatment and further evaluation of possible breakthrough seizure, acute versus subacute CVA, and chronic nonhealing wounds. Hospital course: 68yo M with paroxysmal AF not compliant with apixaban, CAD s/p CABG, PAD s/p AKA, hx prior CVA [last in July 2022], seizure disorder, HTN, HLD, COPD not on home O2, hx substance abuse presented to ED after reported seizure at home, admitted for breakthrough seizures, found to have chronic nonhealing wounds with question of osteomyelitis exposed bone at L AKA site and concern for subacute CVA on CT brain. breakthrough seizure due to noncompliance + substance abuse patient loaded with IV levetiracetam on admission, and placed on po Keppra, no further seizures noted recommend compliance with medications. chronic nonhealing wounds right hip with osteomyelitis, patient underwent L aka stump revision by fabian Reis out, treated with IV meropenem day , PICC placed 05/06/23,on oxycodone with good pain control, continue wound dressing right hip and buttock. subacute CVA - seen by Neurology, continue ASA + atorvastatin. polysubstance abuse - history of heroin and fentanyl use, noted to have no withdrawal symptoms, seen by Addiction Team, patient declined help. paroxysmal AF - noted to have soft blood pressures and bradycardia ,continue amioarone, apixaban ,ekg showed stable qtc , use Lasix as needed for shortness of breath or evidence of CHF tobaccco abuse -continue nicotine patch, counseling done CAD s/p CABG - continue ASA, atorvastatin noted to have soft blood pressures patient remains asymptomatic,echo showed EF 40-45%, impaired relaxation with underlying regional wall motion abnormality, consistent with ischemic cardiomyopathy, need close outpatient Cardiology follow-up, metoprolol discontinued due to soft blood pressures and bradycardia resume beta-blockers if blood pressure allows. Time Attestation Discharge coordination time: Greater than 30 minutes Quality: Safe Use of Opioids Does Pt have an Active Cancer Diagnosis on the Problem List?: No Quality: Stroke Does the patient have a stroke diagnosis?: No Physical Exam Vital Signs: Vital Signs: Last Vital Signs Temp 98.3 F 05/29/23 08:00 Pulse 59 05/29/23 08:00 Resp 17 05/29/23 08:00 BP 120/58 L 05/29/23 08:00 Pulse Ox 97 05/29/23 08:00 O2 Del Method Room Air 05/29/23 08:00 O2 Flow Rate 2 04/28/23 07:46 Oxygen Flow Rate 2 04/27/23 13:32 BMI result Body Mass Index 21.4 Const: Other: Gen: Awake alert x3, in no acute distress HEENT: sclera anicteric, moist mucus membranes Neck: supple, no JVD,/rash left side of neck Lungs: clear to auscultation bilaterally Heart: regular rate and rhythm, no murmurs Abd: soft, non-tender, non-distended, bowel sounds audible Ext: no edema, RUE PICC, L AKA stump well-healed Neuro: alert and oriented x3, no focal findings Psych: appropriate affect DS: Data Data Completed and Pending Completed studies during hospitalization [Text1]: Pending at discharge 04/30/23 14:39 Surgical [PTH] Routine Procedures Insertion of Endotracheal Airway into Trachea, Via Natural or Artificial Opening Endoscopic (01/18/21) Insertion of Infusion Device into Superior Vena Cava, Percutaneous Approach (01/18/21) Introduction of Other Thrombolytic into Peripheral Vein, Percutaneous Approach (07/25/22) Introduction of Vasopressor into Central Vein, Percutaneous Approach (01/18/21) Introduction of Vasopressor into Peripheral Vein, Percutaneous Approach (07/25/22) Respiratory Ventilation, 24-96 Consecutive Hours (01/18/21) Labs on day of discharge: Laboratory Results - last 24 hr 05/29/23 08:17 WBC 11.0 H RBC 4.33 L Hgb 12.0 L Hct 36.7 L MCV 84.8 MCH 27.7 MCHC 32.7 RDW 19.5 H Plt Count 142 L MPV 10.4 Absolute Nucleated RBC 0.000 Nucleated RBC % (auto) 0.0 Sodium 139 Potassium 4.6 Chloride 106 Carbon Dioxide 27 Anion Gap 11 L BUN 27 H Creatinine 0.98 Estim Creat Clear Calc 49.9 Estimated GFR > 60 Random Glucose 89 Calcium 9.3 D Discharge Plan Discharge Anticipated Discharge Date/Time: 05/29/23 13:23 Patient Disposition: Xfer SNF Discharge Diagnosis: nsvt ,afib,prolonged qt,sepsis due to cellulitis and likely osteomyelitis Referrals: [facility] [Outside] - 1 Week (transfer for short term rehab, IV Rx) Tony Rhodes MD [Primary Care Provider] - 1 Week Discharge Medications: New acetaminophen 325 mg Tablet 650 mg PO Q6H PRN (Reason: Pain, Mild (Pain Scale 1-3)) Qty: 10 0RF nicotine 21 mg/24 hr Patch 24 Hour 21 mg transdermal DAILY 1 Days Qty: 1 0RF oxycodone 5 mg Tablet 10 mg PO Q4H PRN (Reason: severe pain) Qty: 14 0RF Rx Instructions: Partial Fill upon patient request. ertapenem 1 gram recon soln 1 g IM DAILY Qty: 18 0RF Continued levetiracetam [Keppra] 500 mg tablet 500 mg PO BID Qty: 60 0RF atorvastatin 40 mg Tablet 40 mg PO DAILY aspirin 81 mg Tablet,Delayed Release (Dr/Ec) 81 mg PO DAILY docusate sodium 100 mg Capsule 100 mg PO BID folic acid 1 mg Tablet 1 mg PO DAILY Eliquis 5 mg Tablet 5 mg PO BID Changed amiodarone 200 mg Tablet 200 mg PO DAILY Qty: 30 0RF Discontinued clonidine HCl 0.1 mg Tablet 0.1 mg PO BID furosemide 20 mg Tablet 20 mg PO DAILY metoprolol succinate 25 mg Tablet Extended Release 24 Hr 25 mg PO DAILY Discharge Orders: Discharge Order (Routine); Ordered 05/29/23 Ordered By: Perlita Bradley Diet: Advance to usual diet Activity on Discharge: As tolerated Stand Alone Forms: Patient Portal Discharge page Activity Restrictions/Additional Instructions: Topical Wound Care Recommendations: 1. Turn and Reposition every 2 hours and as needed for patient comfort. Use pillow or wedges to aid in supporting off loaded position. 2. Off Load all bony prominences with use of pillows and heel boots if needed.? Apply Preventative foams where needed. ? 3. Monitor for incontinence and moisture control, use barrier creams when needed for prevention and treatment. 4. Provide adequate and supplemental nutrition. - Nutrition following and orders in place. 5. Continue low air loss mattress. 6. Right (Hip) Trochanter and Right Ischium - Cleanse and irrigate with NS, Pat dry. Apply barrier wipe to periwound. Cover and lightly pack wound beds with Alginate - be sure to leave a wick for easy removal. cover with foam dressing. Change Daily. 7. Left (Hip) Trochanter - Cleanse with NS, Pat dry. Apply barrier wipe to periwound. Cover with foam dressing peel back and assess Q shift and change every 3 days and PRN for soiling. Wound Clinic Follow up Recommend follow up out patient Wound Clinic at [address] [place] [address] and to call for an appointment at time of discharge. [phone].? Care Plan Goals: Continue ertapenem 1 g daily end date 06/17/2022 Monitor CBC, BMP and LFTs Q weekly Health Concerns: as above. Plan of Treatment: Outpatient follow-up with primary care physician, General surgery and Wound Care Clinic. Discharge to rehab for less than 30 days. Assessment: as above
--- NOTE | 2023-05-29 13:34 | MHC.CM.PN ---
DP: PT HAS BEEN MEDICALLY CLEARED FOR DC TO SHORT TERM REHAB TO COMPLETE HIS ABT RX. RN UPDATED. /HCP FANY UPDATED VIA TELEPHONE. [facility] IS AWARE WILL TRANSFER AT 4 PM VIA BLS VIA [facility]. AWARE.
[2023-05-29 15:16] VITALS: BP 112/54; PULSE 69; RESP 20; TEMP 36.7; O2SAT 98
== END 2023-05-29 16:10 | disposition skilled nursing facility (03) | DRG 474 ==
LOC: HO.ED 16:50 → HO.EDOVER 18:12 → HO.IMC 04-28 02:10 → HO.S3 05-10 19:28 → HO.IMC 05-13 20:38 → HO.S3 05-22 20:09
PROVIDERS: Family Medicine; Hospitalist; Internal Medicine; Surgery; Admitting Provider Student in an Organized Health Care Education/Training Program; Emergency Provider Emergency Medicine; PCP Internal Medicine; Visit Provider Hospitalist
PROC: 02HV33Z Insertion of Infusion Device into Superior Vena Cava, Percutaneous Approach (ICD-10-PCS; principal; 2023-05-06 08:30)
DX: T87.44 Infection of amputation stump, left lower extremity (principal); A41.9 Sepsis, unspecified organism; L89.223 Pressure ulcer of left hip, stage 3; L89.214 Pressure ulcer of right hip, stage 4; I63.9 Cerebral infarction, unspecified; F11.20 Opioid dependence, uncomplicated; L03.116 Cellulitis of left lower limb; I47.20 Ventricular tachycardia, unspecified; M86.152 Other acute osteomyelitis, left femur; L89.310 Pressure ulcer of right buttock, unstageable; J44.9 Chronic obstructive pulmonary disease, unspecified; E87.6 Hypokalemia; F19.10 Other psychoactive substance abuse, uncomplicated; I25.5 Ischemic cardiomyopathy; I73.9 Peripheral vascular disease, unspecified; I25.10 Atherosclerotic heart disease of native coronary artery without angina pectoris; I95.9 Hypotension, unspecified; F17.210 Nicotine dependence, cigarettes, uncomplicated; I48.0 Paroxysmal atrial fibrillation; G40.909 Epilepsy, unspecified, not intractable, without status epilepticus; Z86.73 Personal history of transient ischemic attack (TIA), and cerebral infarction without residual deficits; Z95.1 Presence of aortocoronary bypass graft; Z91.148 Patient's other noncompliance with medication regimen for other reason; Z71.6 Tobacco abuse counseling; Z79.01 Long term (current) use of anticoagulants; Z79.82 Long term (current) use of aspirin; Z79.899 Other long term (current) drug therapy
CPT/HCPCS: 36415; 36573; 70450; 71045; 72170; 73552; 73701; 80048; 80053; 80061; 80177; 80202; 80307; 81003; 82565; 82947; 83605; 83735; 84484; 85025; 85027; 85652; 86140; 86704; 86706; 86803; 87040; 87340; 87389; 88304; 88311; 93005; 93306; 97110; 97162; 97166; 97530; 97535; 99024; 99285; C1751; J1170; J1650; J1953; J2185; J2270; J2543; J2704; J2795; J3370; J3371; J3475; J3480; Q9957; Q9967

== ENCOUNTER → 2023-04-27 14:19 | Outpatient (BNV) | payer MEDICARE, SELFPAY | PROVIDERS: Admitting Provider Student in an Organized Health Care Education/Training Program; Emergency Provider Emergency Medicine; Visit Provider Internal Medicine Cardiovascular Disease | DX: R00.0 Tachycardia, unspecified (principal); I49.1 Atrial premature depolarization | CPT/HCPCS: 93010 ==

== ENCOUNTER 2023-04-27 17:52 | Outpatient (BNV) | payer MEDICARE, SELFPAY | END 2023-05-26 08:17 | PROVIDERS: Admitting Provider Student in an Organized Health Care Education/Training Program; Emergency Provider Emergency Medicine; PCP Internal Medicine; Visit Provider Internal Medicine | DX: R00.1 Bradycardia, unspecified (principal) | CPT/HCPCS: 93010 ==

== ENCOUNTER 2023-04-27 17:52 | Outpatient (BNV) | payer MEDICARE, SELFPAY | END 2023-04-28 07:00 | PROVIDERS: Admitting Provider Student in an Organized Health Care Education/Training Program; Emergency Provider Emergency Medicine; Visit Provider Internal Medicine Cardiovascular Disease | DX: I36.1 Nonrheumatic tricuspid (valve) insufficiency (principal) | CPT/HCPCS: 93306 ==

== ENCOUNTER → 2023-04-27 17:52 | Outpatient (BNV) | payer MEDICARE, SELFPAY | PROVIDERS: Admitting Provider Student in an Organized Health Care Education/Training Program; Emergency Provider Emergency Medicine; Visit Provider Nurse Practitioner Psychiatric/Mental Health | DX: F11.20 Opioid dependence, uncomplicated (principal) | CPT/HCPCS: 99221 ==

== ENCOUNTER → 2023-04-27 17:52 | Outpatient (BNV) | payer MEDICARE, SELFPAY | PROVIDERS: Admitting Provider Student in an Organized Health Care Education/Training Program; Emergency Provider Emergency Medicine; Visit Provider Hospitalist | DX: R56.9 Unspecified convulsions (principal); Z89.612 Acquired absence of left leg above knee | CPT/HCPCS: 99223; 99231; 99232; 99233; 99239 ==

== ENCOUNTER → 2023-04-27 17:52 | Outpatient (BNV) | payer MEDICARE, SELFPAY | PROVIDERS: Admitting Provider Student in an Organized Health Care Education/Training Program; Emergency Provider Emergency Medicine; Visit Provider Surgery | DX: T87.89 Other complications of amputation stump (principal) | CPT/HCPCS: 27886; 99222; 99232; 99499 ==

== ENCOUNTER → 2023-04-27 17:52 | Outpatient (BNV) | payer MEDICARE, SELFPAY | PROVIDERS: Admitting Provider Student in an Organized Health Care Education/Training Program; Emergency Provider Emergency Medicine; Visit Provider Internal Medicine | DX: T14.8XXA Other injury of unspecified body region, initial encounter (principal); I63.9 Cerebral infarction, unspecified; R56.9 Unspecified convulsions; M86.452 Chronic osteomyelitis with draining sinus, left femur | CPT/HCPCS: 99222; 99499 ==

== ENCOUNTER → 2023-04-27 17:52 | Outpatient (BNV) | payer MEDICARE, SELFPAY | PROVIDERS: Admitting Provider Student in an Organized Health Care Education/Training Program; Emergency Provider Emergency Medicine; PCP Internal Medicine; Visit Provider Internal Medicine Cardiovascular Disease | DX: I47.29 Other ventricular tachycardia (principal); I25.5 Ischemic cardiomyopathy; I48.0 Paroxysmal atrial fibrillation; F19.10 Other psychoactive substance abuse, uncomplicated | CPT/HCPCS: 99222; 99233 ==

== ENCOUNTER 2023-09-29 05:27 | Inpatient (IN) | payer MEDICARE, SELFPAY ==
[2023-09-29] VITALS (8 sets, daily range): BP systolic 108–136; BP diastolic 59–80; PULSE 67–120; RESP 13–18; TEMP 36.7–37.6; O2SAT 96–100; BMI 20.5
--- NOTE | 2023-09-29 | ECG_ITS ---
Test Reason : CHEST PAIN Blood Pressure : / mmHG Vent. Rate : 098 BPM Atrial Rate : 098 BPM P-R Int : 164 ms QRS Dur : 098 ms QT Int : 392 ms P-R-T Axes : 071 082 077 degrees QTc Int : 500 ms Normal sinus rhythm Possible Left atrial enlargement Minimal voltage criteria for LVH, may be normal variant ( Ward product ) Anteroseptal infarct (cited on or before 25-JUL-2022) Abnormal ECG When compared with ECG of 26-MAY-2023 08:17, Vent. rate has increased BY 41 BPM Questionable change in initial forces of Anterior leads Referred By: Generic ED Physician Electronically Signed By:Mukesh Alvares
--- NOTE | 2023-09-29 | EEG_ITS ---
FINDINGS: Waking background activity consists of a moderate voltage, diffuse 6 hertz theta frequency and low voltage fast frequencies predominate anteriorly. Photic stimulation is without activation. Hyperventilation was omitted. No sleep stages are identified. No paroxysmal features are seen. IMPRESSION: This is an abnormal EEG due to diffuse background slowing consistent with a diffuse encephalopathic process. No focal abnormalities or epileptiform discharges are seen. MD PABLO Bermeo/MODL / [id number]
--- NOTE | ~2023-09-29 | CT_ITS ---
EXAMINATION: CT HEAD WITHOUT CONTRAST CLINICAL INFORMATION: Altered mental status. COMPARISON: 04/27/2023 TECHNIQUE: Contiguous axial imaging was performed from the skull base to vertex without intravenous administration of contrast. This CT examination was performed using dose optimization techniques as appropriate, variously including the following: *Automated exposure control *Adjustment of mA and/or kV according to patient size (this includes techniques or standardized protocols for targeted exams where dose is matched to indication/reason for exam; i.e. extremities or head) *Use of iterative reconstruction technique DLP: 626 mGy-cm FINDINGS: There is cerebral volume loss with prominence of the lateral and the third ventricles. The cortical sulci are widened appropriately. The fourth ventricle and basal cisterns are normally outlined. There is mild to moderate bilateral periventricular and central white matter diminished attenuation. Left temporal encephalomalacia is again seen. There is a small area of encephalomalacia left frontal lobe. The inferior left cerebellar encephalomalacia/old infarct. There is no acute territorial defect, hemorrhage or midline shift. The extra-axial bases are unremarkable. Calvarium/scalp: Intact. Maxillofacial sinuses and mastoids: There is ethmoid sinus mucosal thickening and opacities. There is right maxillary sinus mucosal thickening. There is frontal sinus mucosal thickening. The mastoids are clear. CT/CT head/brain wo IV con IMPRESSION: 1. No acute intracranial abnormality. 2. Chronic left temporal, left frontal, and left cerebellar encephalomalacia/old infarcts. 3. Mild to moderate periventricular and central white matter diminished attenuation is nonspecific, but commonly chronic small vessel ischemic changes. 4. Sinus disease.
--- NOTE | ~2023-09-29 | MR_ITS ---
EXAMINATION: MR BRAIN WITHOUT CONTRAST CLINICAL INFORMATION: Encephalopathy. Rule out cerebral vascular accident. COMPARISON: CT head 09/29/2023 CT head 01/12/2021, 09/29/2023 TECHNIQUE: MRI of the brain was obtained using routine sequences without contrast. FINDINGS: Diffusion-weighted images demonstrate no evidence of acute infarcts. Focal gliosis as manifest by T2 hyperintensity and mild coil atrophy is present in the inferior left cerebellar hemisphere within the expected territory of the posterior inferior cerebellar artery. Encephalomalacia with mild marginal gliosis is present in the expected territory of the inferior division of the left middle cerebral artery involving the posterior left temporal lobe and left parietal region. Focal encephalomalacia with marginal T2 hyperintensity is present in the anterior left middle frontal lobe gyrus and left rodríguez radiata adjacent to the segment of the body of the left lateral ventricle. Elsewhere, mild scattered subcortical and periventricular white matter punctate T2 hyperintensities are visualized. Susceptibility weighted images reveal no evidence of acute or chronic hemorrhage within the brain parenchyma. The craniocervical junction cerebellar tonsils are normal in configuration. No suspicious marrow abnormalities are identified. Partial visualization is made of an approximate 1.5 cm polypoid lesion appearing to emanate from the left lateral nasopharyngeal mucosa corresponding to a similar sized density without appreciable interval change noted contemporaneously on the 01/12/2021 examination. Mild retained secretions or mucosal thickening is noted within the right maxillary sinus and scattered right ethmoid air cells. No mastoid or middle ear cavity effusions identified. Abnormal flow related signal intensity (intermediate T2-weighted signal intensity) is identified within the left internal carotid artery from the skull base to the proximal cavernous segment of the left internal carotid artery similar to findings reported on the CT angiogram of 07/25/2022. MR/MR head/brain wo con IMPRESSION: *No evidence of acute abnormalities. No acute infarcts or acute intracranial hemorrhage. *Chronic infarct within the inferior division of the left middle cerebral artery. Chronic infarct of the inferior left cerebellar hemisphere and focal chronic infarcts of the left middle frontal lobe and left rodríguez radiata as detailed above. *Partially visualized 1.5 cm nasopharyngeal polyp grossly unchanged in size compared with 01/12/2021 which may be further evaluated with direct visualization as clinically indicated. *Chronic occlusion of the left internal carotid artery which appears unchanged compared with 07/25/2022. Normal intraluminal flow signal intensity is absent and the left internal carotid artery from the visualized distal cervical segments to the proximal cavernous segment.
--- NOTE | ~2023-09-29 | CT_ITS ---
EXAMINATION: CT HIP WITH CONTRAST, RIGHT CLINICAL INFORMATION: Ulcer. Rule out osteomyelitis. COMPARISON: Radiograph dated 09/29/2023. TECHNIQUE: Multidetector volumetric imaging was obtained through the right hip following intravenous administration of 85 mL Omnipaque 350. This CT examination was performed using dose optimization techniques as appropriate, variously including the following: *Automated exposure control *Adjustment of mA and/or kV according to patient size (this includes techniques or standardized protocols for targeted exams where dose is matched to indication/reason for exam; i.e. extremities or head) *Use of iterative reconstruction technique DLP: 172 mGy-cm FINDINGS: There is a skin wound over the right greater trochanter measuring 2.5 x 3 cm in area with underlying soft tissue swelling. No fluid collections are identified in these images. No specific CT findings of osteomyelitis of the underlying greater trochanter. There is marked thinning of the soft tissues at the dorsal aspect of the lower sacrum, partially imaged. A wound is also possible in this region. No significant underlying gas. No discrete areas of osseous erosion are identified within the imaged portion of the sacrum and coccyx. Bones are osteopenic. 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 Mild osteoarthritis in the right hip. Osteophytic ankylosis of the right SI joint. Marked degenerative spondylosis in the lower lumbar spine. Calcific and fibrofatty atheromatous disease in the [place] abdominal aorta and iliac arteries with occlusion of the [place] iliac arteries. A extra anatomic aortofemoral bypass graft is in place with occlusion of the left iliac limb. A femoral-femoral bypass is also occluded, as is the imaged portion of a bypass graft from the region of the left common femoral artery extending distally off the imaged portion of the left proximal femur. There is bladder wall thickening diffusely. No intrapelvic free fluid. No adenopathy. CT/CT hip RT w IV con IMPRESSION: 1. Soft tissue wound over the right greater trochanter with underlying soft tissue swelling. No specific CT findings of underlying osteomyelitis, though MRI of the hip with and without contrast would be more sensitive and specific. 2. Marked thinning of the soft tissues at the dorsal aspect of the lower sacrum, potentially corresponding to a wound. No CT findings of underlying osteomyelitis. 3. Extensive vascular disease within the iliac and femoral arteries status post multiple vascular bypass grafts. There is occlusion of the [place] iliac arteries bilaterally as well as the left iliac bypass, femoral-femoral bypass, and imaged portion of the left femoral bypass extending distally within the left lower extremity.
--- NOTE | ~2023-09-29 | XR_ITS ---
EXAMINATION: XR CHEST CLINICAL INFORMATION: Altered mental status, cough COMPARISON: Chest x-ray on 04/27/2023 TECHNIQUE: Frontal view of the chest was obtained. FINDINGS: vascularity. LUNGS: Lungs are clear. No pneumothorax is seen. BONES: Bony skeleton is intact. Median sternotomy wire loops are present. Surgical clips are seen in the left supraclavicular region. XR/XR chest 1V IMPRESSION: 1. Unchanged no radiographic signs of acute cardiopulmonary process. 2. Unchanged status post median sternotomy.
--- NOTE | ~2023-09-29 | XR_ITS ---
EXAMINATION: XR HIP, RIGHT CLINICAL INFORMATION: Chronic wound, overlying the greater trochanter. Rule out osseous abnormality. COMPARISON: CT right hip 05/01/2023 TECHNIQUE: Two views of the right hip. FINDINGS: Soft tissue wound lateral to the region of the greater trochanter. There is decreased bone density and loss of cortical definition in the lateral aspect of the greater trochanter, raising concern for possible osteomyelitis. Right hip joint space is maintained. No evidence of acute fracture. Extensive vascular calcification. Surgical clips projected over the pelvis. Moderate left femoral amputation. Degenerative changes in the visualized spine. XR/XR hip RT w PEL1V IMPRESSION: Soft tissue wound lateral to the region of the greater trochanter. Possible osteomyelitis involving the lateral aspect of the greater trochanter. Consider further evaluation with MRI without and with contrast, which is more sensitive.
--- NOTE | 2023-09-29 06:12 | ED.AMS ---
HPI - Altered Mental Status General Chief Complaint: Altered Mental Status Stated Complaint: crisis Time Seen by Provider: 09/29/23 06:02 History of Present Illness HPI narrative: Patient is a 68-year-old male brought in by EMS. Patient was noted by to have erratic behavior. Screaming names of people. Inconsolable failing. Patient has a history of left [id number] amputation. History of nonsustained V-tach. History of paroxysmal atrial fibrillation. Supposed to be on Eliquis but is known to be noncompliant. History of carotid stenosis. History of osteomyelitis. History of CVA. History of recreational drug use including cocaine and heroin. On arrival patient has no specific complaints. No fever no chills. Denies any chest pain. No vomiting. It is somewhat confused but is aware of self. He knows he is in the hospital. Unable to provide the year. Related Data Home Medications ?Medication ?Instructions ?Recorded ?Confirmed apixaban 5 mg tablet (Eliquis) 5 mg PO BID 04/27/23 04/27/23 aspirin 81 mg tablet,delayed 81 mg PO DAILY 04/27/23 04/27/23 release atorvastatin 40 mg tablet 40 mg PO DAILY 04/27/23 04/27/23 docusate sodium 100 mg capsule 100 mg PO BID 04/27/23 04/27/23 folic acid 1 mg tablet 1 mg PO DAILY 04/27/23 04/27/23 Previous Rx's ?Medication ?Instructions ?Recorded levetiracetam 500 mg tablet 500 mg PO BID #60 tabs 01/19/23 (Keppra) acetaminophen 325 mg tablet 650 mg (2 x 325 mg) PO Q6H PRN 05/08/23 Pain, Mild (Pain Scale 1-3) #10 tabs amiodarone 200 mg tablet 200 mg PO DAILY #30 tabs 05/08/23 nicotine 21 mg/24 hr daily 21 mg transdermal DAILY 1 day #1 ea 05/08/23 transdermal patch ertapenem 1 gram solution for 1 g IM DAILY #18 ea 05/29/23 injection oxycodone 5 mg tablet 10 mg (2 x 5 mg) PO Q4H PRN severe 05/29/23 pain #14 tabs Allergies Allergy/AdvReac Type Severity Reaction Status Date / Time No Known Allergies Allergy Verified 09/29/23 05:40 Review of Systems Review of Systems: Positive generalized malaise Yes all other systems are reviewed and are negative [facility] Past Medical History Attestation statement: The following information was validated with the patient. Medical History Ischemic cardiomyopathy Cerebellar infarction Seizure Above knee amputation of left lower extremity Fall Leukocytosis MDD (major depressive disorder), recurrent episode, moderate Opioid use disorder, moderate, dependence Pneumonitis Pneumonia Atherosclerotic cardiovascular disease History of hemorrhagic cerebrovascular accident (CVA) without residual deficits Subclavian arterial stenosis Atrial flutter Cardiomyopathy Opioid use disorder Seizure disorder Acute combined systolic and diastolic congestive heart failure COPD (chronic obstructive pulmonary disease) Cocaine abuse with intoxication Toxic encephalopathy 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 Hyperlipemia CHF (congestive heart failure) Seizure-like activity Cardiac arrest Atrial flutter Paroxysmal atrial fibrillation PVD (peripheral vascular disease) CAD (coronary artery disease) Heroin use Surgical History Hx of AKA (above knee amputation) S/P CABG x 2 Social History Social History Household Members: Spouse Housing: House Do you presently have visiting nurse or other home services: No Unable to assess alcohol history related to: Unable to respond Alcohol intake: current Alcohol intake frequency: does not drink Comment: Pt refused bed alarm, [employer] camera outside patient's room for safety. Patient Tobacco Use Status: Current everyday Tobacco user Tobacco use type: Cigarette Cigarette Packs Per Day: 1.5 Cigarettes Per Day: 30.0 Years Smoked: 25 Smoked in Last 30 Days: Yes e-Cigarette/Vaping Use: Currently Using Second Hand Smoke Exposure: No Use of substances other than those prescribed or required for medical reasons: No Substance Use Type: Heroin Advance Directives Date on File: 01/12/21 Do you have a plan to hurt others: No Plan service: No Current occupational status: retired Physical Exam ED Vital Signs: Vital Signs - 24 hr 09/29/23 05:40 Temperature 98.9 F Pulse Rate 102 H Respiratory Rate 18 Blood Pressure 120/79 Pulse Oximetry 99 Oxygen Delivery Method Room Air BMI result Body Mass Index 20.5 Appearance: Alert. Oriented X to. No acute distress. Eyes: Pupils equal, round and reactive to light. ENT: Pharynx normal. Neck: Normal inspection. Neck supple. No lymph nodes noted. No crepitus CVS: Normal heart rate and rhythm. Pulses normal. Normal S1 and S2 Respiratory: No respiratory distress. Breath sounds normal. No Wheezing. No rales Abdomen: Soft and nontender. No rigidity. No distention. good BS x4 Skin: Skin warm and dry. Normal skin color. Normal skin turgor. Extremities: No lower extremity edema. Positive above the knee amputation on the left side. There is a ulcer on the lateral aspect of the left hip area. Looks like it goes all the way down to muscle. Another ulcer that is over the gluteal area. Seems very superficial. Neuro: Oriented X 3. No motor deficit. No sensory deficit. Moving all extermities. No slurred speech Medical Decision Making Medical Decision Making [facility] Narrative: Patient's CT scan of the head was grossly negative for any acute evidence of bleeding. No evidence of fracture. History of polysubstance abuse. History of seizure patient initially was very confused to family and to EMS/nursing. On arrival patient became more awake alert oriented. Question patient had a seizure episode. Baseline is on Keppra. Question compliance. Patient's electrolytes has an anion gap of 24 consistent with having a recent seizure. LFTs are normal flu RSV COVID were all negative. Chest x-ray is still pending. Reassessment pending Case signed out at change of shift at 07:30 Lab Data [facility] Lab Attestation statement: I reviewed the patient's lab results. 09/29/23 06:04 09/29/23 06:04 Labs: Lab Results 09/29/23 Range/Units 06:04 WBC 16.5 H (4.8-10.8) X10*3/uL RBC 5.22 D (4.60-5.80) X10*6/uL Hgb 15.5 D (14.0-18.0) g/dl Hct 45.7 D (42.0-52.0) % MCV 87.5 (80.0-98.0) fL MCH 29.7 (27.0-33.0) pg MCHC 33.9 (31.0-36.0) g/dl RDW 15.2 (11.0-16.0) % Plt Count 141 L (160-400) X10*3/uL MPV 9.7 (9.4-12.4) fL Immature Gran % (Auto) 0.7 H (0.0-0.4) % Neut % (Auto) 72.6 (45-73) % Lymph % (Auto) 14.3 L (20-40) % [place] % (Auto) 7.9 (2-11) % Eos % (Auto) 3.9 (0-4) % Baso % (Auto) 0.6 (0-2) % Lymph # (Auto) 2.4 (1.2-4.9) X10*3/uL [place] # (Auto) 1.3 H (0.1-1.2) X10*3/uL Eos # (Auto) 0.6 H (0.0-0.4) X10*3/uL Baso # (Auto) 0.1 (0.0-0.2) X10*3/uL Abs Immat Gran (auto) 0.11 H (0.00-0.03) X10*3/uL Absolute Neuts (auto) 12.0 H (2.0-8.3) x10*3/uL Absolute Nucleated RBC 0.000 (0.0-0.012) X10*3/uL Nucleated RBC % (auto) 0.0 (0.0-0.2) /100WBC PT 12.6 (11.1-13.3) SEC INR 1.0 (0.9-1.1) Sodium 136 (135-145) mmol/L Potassium 3.8 (3.3-5.1) mmol/L Chloride 104 (96-108) mmol/L Carbon Dioxide 12 L (22-29) mmol/L Anion Gap 24 H (12-20) BUN 15 (9-16) mg/dL Creatinine 1.01 (0.5-1.4) mg/dL Estim Creat Clear Calc 56.1 Estimated GFR > 60 Random Glucose 138 H (60-115) mg/dL Calcium 9.5 (8.4-10.2) mg/dL Total Bilirubin 0.3 (0.0-1.0) mg/dL AST 16 (5-37) U/L ALT 10 (0-40) U/L Alkaline Phosphatase 102 (39-117) U/L Troponin I High Sens 27.7 D (<3.5-35.0) ng/L Total Protein 8.0 (6.5-8.0) g/dL Albumin 4.2 (3.5-5.0) g/dL Influenza Type A (PCR) NEGATIVE (Negative) Influenza Type B (PCR) NEGATIVE (Negative) RSV RNA Qual (PCR) NEGATIVE (Negative) SARS-CoV-2 RNA (RT-PCR) NEGATIVE (Negative) Discharge Plan Discharge Clinical Impression: Alteration in cognition Patient Disposition: Still a Patient Prescriptions: No Action levetiracetam [Keppra] 500 mg tablet 500 mg PO BID Qty: 60 0RF atorvastatin 40 mg Tablet 40 mg PO DAILY aspirin 81 mg Tablet,Delayed Release (Dr/Ec) 81 mg PO DAILY docusate sodium 100 mg Capsule 100 mg PO BID folic acid 1 mg Tablet 1 mg PO DAILY Eliquis 5 mg Tablet 5 mg PO BID amiodarone 200 mg Tablet 200 mg PO DAILY Qty: 30 0RF acetaminophen 325 mg Tablet 650 mg PO Q6H PRN (Reason: Pain, Mild (Pain Scale 1-3)) Qty: 10 0RF nicotine 21 mg/24 hr Patch 24 Hour 21 mg transdermal DAILY 1 Days Qty: 1 0RF oxycodone 5 mg Tablet 10 mg PO Q4H PRN (Reason: severe pain) Qty: 14 0RF Rx Instructions: Partial Fill upon patient request. ertapenem 1 gram recon soln 1 g IM DAILY Qty: 18 0RF Print Language: Maori
[2023-09-29 06:29] LABS: Basophils Absolute Auto 0.1 X10*3/uL (0.0-0.2); Basophils Percent Auto 0.6 % (0-2); Eosinophils Absolute Auto 0.6 X10*3/uL (0.0-0.4); Eosinophils Percent Auto 3.9 % (0-4); Hematocrit 45.7 % (42.0-52.0); Hemoglobin 15.5 g/dl (14.0-18.0); Imm Gran Abs Auto 0.11 X10*3/uL (0.00-0.03); Imm Gran Pct Auto 0.7 % (0.0-0.4); Lymphocytes Absolute Auto 2.4 X10*3/uL (1.2-4.9); Lymphocytes Percent Auto 14.3 % (20-40); MANUAL DIFF FLAG NO; Mean Corpuscular HGB Conc 33.9 g/dl (31.0-36.0); Mean Corpuscular Hemoglobin 29.7 pg (27.0-33.0); Mean Corpuscular Volume 87.5 fL (80.0-98.0); Mean Platelet Volume 9.7 fL (9.4-12.4); Monocytes Absolute Auto 1.3 X10*3/uL (0.1-1.2); Monocytes Percent Auto 7.9 % (2-11); Neutrophils Percent Auto 72.6 % (45-73); Platelet Count 141 X10*3/uL (160-400); Red Blood Count 5.22 X10*6/uL (4.60-5.80); Red Cell Distribution Width 15.2 % (11.0-16.0); White Blood Count 16.5 X10*3/uL (4.8-10.8)
--- NOTE | 2023-09-29 06:31 | PC.NURSE ---
Contacted Dinorah, , of pt who confirmed pt woke this am approx 5am, with outburst calling for his aunt, who is . She stated that pt is not likely med compliant, but believes he has not used illicit drugs in at least 1 week. She requests phone call with status - has no ride to hospital.
[2023-09-29 06:38] LABS: Prothrombin Time 12.6 SEC (11.1-13.3)
[2023-09-29 06:46] LABS: Alanine Aminotransferase 10 U/L (0-40); Albumin Level 4.2 g/dL (3.5-5.0); Alkaline Phosphatase 102 U/L (39-117); Anion Gap 24 (12-20); Aspartate Amino Transferase 16 U/L (5-37); Bilirubin Total 0.3 mg/dL (0.0-1.0); Blood Urea Nitrogen 15 mg/dL (9-16); Calcium 9.5 mg/dL (8.4-10.2); Carbon Dioxide 12 mmol/L (22-29); Chloride 104 mmol/L (96-108); Creatinine Clr Calc Pharmacy 56.1; Estimated Glomerular Filt Rate > 60; Glucose Random 138 mg/dL (60-115); Potassium 3.8 mmol/L (3.3-5.1); Sodium 136 mmol/L (135-145)
[2023-09-29 06:48] LABS: Troponin-I High Sensitivity 27.7 ng/L (<3.5-35.0)
--- NOTE | 2023-09-29 07:00 | CA_ITS ---
Transthoracic Echocardiogram Patient (Last, First, Middle): Phan Boateng C Gender: Male Date of : 1955 Age: 68 Procedure Date: 09/29/2023 Procedure Type: Transthoracic Echocardiogram Location: ER Height: 167.64 cm Weight: 57.15 kg BSA: 1.64 m2 Heart Rate: 70 bpm BP: 98 / 74 mmHg Lead Fabricator: PORTER Referring MD: Sarah PAN Symptoms: elevated trops Study Quality: Technically Difficult Conclusions: - Normal left ventricular cavity size. There is mildly increased left ventricular wall thickness. The left ventricular systolic function is mildly decreased. The visually estimated ejection fraction is between 40-45%. - The basal anteroseptal and basal inferolateral segments are akinetic. - The basal inferior, mid inferior, and basal inferoseptal segments are dyskinetic. - There is mildly decreased right ventricular systolic function. Findings Left Ventricle Normal left ventricular cavity size. There is mildly increased left ventricular wall thickness. The left ventricular systolic function is mildly decreased. The visually estimated ejection fraction is between 40-45%. There is evidence of regional wall motion abnormalities. Abnormal diastolic function is noted. Spectral Doppler is indicative of an impaired relaxation filling pattern. Normal left ventricular filling pressures. Wall Motion Rest Echo Findings The basal anteroseptal and basal inferolateral segments are akinetic. The basal inferior, mid inferior, and basal inferoseptal segments are dyskinetic. Right Ventricle Normal right ventricular cavity size. There is mildly decreased right ventricular systolic function. Atria The left atrium is normal in size. Aortic Valve Normal aortic valve structure and function. There is no aortic valve stenosis. There is no aortic valve regurgitation. Mitral Valve The mitral valve appears normal. There is no mitral valve regurgitation. There is no mitral valve stenosis. Pulmonic Valve Normal pulmonic valve structure and function. There is no pulmonic valve regurgitation. Tricuspid Valve Normal tricuspid valve structure. Normal right atrial pressure. There is no evidence of pulmonary hypertension. Great Vessels All visible segments of the aorta are normal in size. The visualized portions of the pulmonary artery and branches are normal. Venous The inferior vena cava is normal in size and collapses greater than 50% with inspiration. Pericardium/Pleural There is no evidence of pericardial effusion. Prior Study Comparison No significant change compared to prior study dated: 04/28/2023. Measurements 2D Linear Measurements IVSd: 1.24 0.6-0.9/0.6-1.0 cm LVIDd: 4.25 3.9-5.3/4.2-5.9 cm LVIDd Index: 2.59 2.4-3.2/2.2-3.1 cm/m2 LVIDs: 2.94 2.0-3.6 cm LVPWd: 1.24 0.7-1.1 cm LA Diam: 3.90 2.7-3.8/3.0-4.0 cm LAIDs Index: 2.38 1.5-2.3 cm/m2 LV Mass: 237.18 67-162/88-224 g LV Mass Index: 144.62 43-95/49-115 g/m2 LVOT Diam: 2.00 3.0+(-)1.3 cm 2D Systolic Function EF 4C: 44.00 >55% EF 2C: 47.00 >55% EF BiP: 46.00 >55% Mitral Valve MV Pk E: 0.36 MV PK A: 0.91 MV Decel Time: 240.00 E/A: 0.40 E'Lateral: 5.87 E'Medial: 4.46 E/E' Med: 8.20 E/E' Lat: 6.20 PHT: 70.00 MVA PHT: 3.14 Decel Free[place]: 1.52 Aortic Valve AoV Pk Lebron: 0.94 AoV Mn Lebron: 0.62 AoV VTI: 0.19 AoV Pk Grad: 4.00 Aov Mn Grad: 2.00 ISIDRO Cont.VTI: 2.79 LVOT LVOT Pk Lebron: 0.95 LVOT Mn Lebron: 0.55 LVOT VTI: 0.17 LVOT Pk Grad: 4.00 LVOT Mn Grad: 2.00 LVOT Diam: 2.00 LVOT Area: 3.14 Diastolic Function MV Pk E: 0.36 MV Pk A: 0.91 E/A: 0.40 E'Medial: 4.46 E/E' Med: 8.20 E' Laterial: 5.87 E/E' Lat: 6.20 Right Ventricle TAPSE (mm): 12.60 TVS' Lebron: 9.36 Tricuspid Valve TR Pk Lebron: 1.42 TR Pk Grad: 8.00 RA Press: 3.00 RVSP: 11.00 Great Vessels Aorta Sinus of Valsalva: 3.50 2.0-3.5 cm Ao Asc: 3.30 2.1-3.4 cm Pulmonary Valve PV Pk Lebron: 1.07 Peak PV Grad: 5.00 Updated in Other Vendor System with Status of Final Mukesh Alvares MD electronically signed on 09/29/2023 9:22:06 PM with status of Final
[2023-09-29 07:02] LABS: Influenza A PCR NEGATIVE (Negative); Influenza B PCR NEGATIVE (Negative); Resp Syncy Virus RNA Qual PCR NEGATIVE (Negative); SARS COV2 PCR INHOUSE NEGATIVE (Negative)
[2023-09-29 07:29] LABS: Venous Blood Gas Refer to POC result
[2023-09-29 07:30] LABS: VBG Base Excess -5.9 mmol/L; VBG HCO3 18 mmol/L (22-26); VBG pCO2 34 mmHg; VBG pH 7.34 (7.32-7.43); VBG pO2 49 mmHg
--- OUTSIDE RECORDS SUMMARY | 2023-09-29 08:01 | XMS_ITS | Continuity of Care Document ---
Author Organization [facility] [address] Address [address] [place] [address]- Care Team Providers Care Mold Maker Plastic Molds Name Role Phone Tony Rhodes MD Primary Care Physician [facility] Date[facility]): 08/06/23 - 09/05/23 [facility] [address] [place] [address]- Allergies, Adverse Reactions, Alerts Substance Reaction Severity Status Vioxx Hypertension Mild Active Immunizations Given and Recorded Vaccine Date Status Refusal Reason [id number] bivalent booster vax 03/11/22 Recorded influenza virus [...] Pneumococcal Vacc (oldterm) 05/12/99 Given 1Location History: [facility] 2Admin Note: VIS GIVEN 3Location History: [facility] 4Admin Note: GIVEN BY JOHAN BOWERS BY JUDAH 5Admin Note: GIVEN IN [facility]INIC [facility] 6Admin Note: [facility] 7Admin Note: H1N1 Medications acetaminophen [...] Gm, 0 Refills, Maintenance, 11/21/22 14:00:00 EDT, [facility], Partial fill upon patient request if the prescription is for a schedule II opioid drug., 170, cm, 11/21/22 13:36:00 EDT, Height, 45.7, kg, 03/0... Start Date: 11/21/22 Status: Ordered amiodarone 200 mg oral tablet 200 mg, 1, tablet, By Mouth, Daily, FURTHER REFILLS REQUIRE AN OFFICE VISIT, # 30 tablet, Refills 0, Tot. Refills 0, Maintenance, 06/30/23 8:40:00 EST, Route to Pharmacy Electronically, [facility], 170, cm, 12/02/22 14:04:00 EDT, Height, 45.7, kg... Start Date: 06/30/23 Status: Ordered aspirin 81 mg oral delayed [...] day, # 60 tablet, 0 Refills, Maintenance, 07/07/23 9:15:00 EST, Tablet, [facility], Partial fill upon patient request if the prescription is for a scheduleII opioid drug., 170, cm, 12/02/22 14:04:00 EDT, He... Start Date: 07/07/23 Status: Ordered melatonin 3 mg oral tablet [...] Team Personnel Name: Morena Abraham RN Position: [facility] RN Member Role: Primary Care Nurse Name: Jena Barron RN Position: S RN Member Role: Primary Care Nurse Name: Faith Cheek RN Position: [facility] RN Member Role: Primary Care Nurse Name: Rodney He RN Position: [facility] RN Member Role: Primary Care Nurse Name: Barbara Snider RN Position: [facility] SN RN Member Role: Primary Care Nurse Name: Ana Maria Gonzalez RN Position: [facility] RN Member Role: Primary Care Nurse Name: Rae Vigil RN Position: [facility] RN Member Role: Primary Care Nurse Name: Johan Montes RN Position: [facility] RN Member Role: Primary Care Nurse Name: Tony Rhodes MD Position: [facility] Physician - Primary Care Member Role: PCP Address: Address: [address] [place] [id number]- Name: Stephanie RNRachel Position: [facility] RN Member Role: Primary Care Nurse Name: Lucia Denton RN Position: [facility] RN Member Role: Primary Care Nurse Name: Quin Oliveira RN Position: [facility] RN Member Role: Primary Care Nurse Name: Chelita Hernandez RN Position: [facility] RN Member Role: Primary Care Nurse Name: Lynette Leon RN Position: [facility] RN Member Role: Primary Care Nurse Name: Shameka Hicks RN Position: [facility] RN Member Role: Primary Care Nurse Name: Lynette Wooten RN Position: [facility] RN Member Role: Primary Care Nurse Name: Batsheva Herring RN Position: [facility] OB RN Member Role: Primary Care Nurse Name: Roxana Hutchison RN Position: [facility] AMB Nurse Member Role: Primary Care Nurse Name: David Mensah RN Position: [facility] RN Member Role: Primary Care Nurse Name: Mary Mckeon RN Position: [facility] AMB Nurse Member Role: Primary Care Nurse Care Team Related Persons Name: FANY CYR Address: home [address] [place] [address] Name: KITTY CYR
--- OUTSIDE RECORDS SUMMARY | 2023-09-29 08:01 | XMS_ITS | Continuity of Care Document ---
Author Organization [facility] [address] Address [address] [place] [address]- Care Team Providers Care Customer Sales Representative Name Role Phone Tony Rhodes MD Primary Care Physician [facility] Date[facility]s): 06/26/23 - 07/26/23 [facility] [address] [place] [address]- Attending Physician: Admtr, Delgado Allergies, Adverse Reactions, Alerts Substance Reaction Severity Status Vioxx Hypertension Mild Active Immunizations Given and Recorded Vaccine Date Status Refusal Reason [id number] bivalent booster vax 03/11/22 Recorded influenza virus [...] Pneumococcal Vacc (oldterm) 05/12/99 Given 1Location History: [facility] 2Admin Note: VIS GIVEN 3Location History: [facility] 4Admin Note: GIVEN BY JOHAN BOWERS BY JUDAH 5Admin Note: GIVEN IN [facility]INIC [facility] 6Admin Note: [facility] 7Admin Note: H1N1 Medications acetaminophen [...] Gm, 0 Refills, Maintenance, 11/21/22 14:00:00 EDT, [facility], Partial fill upon patient request if [...] 06/30/23 8:40:00 EST, Route to Pharmacy Electronically, [facility], 170, cm, 12/02/22 14:04:00 EDT, Height, [...] Event Display: Cardiology Note Office Authored Date: [id number] * Antonieta Tapia: PERFORM Event Display: Cardiology Note Office Authored Date: [id number] XR Shoulder Views * Event Display: X-Ray Shoulder Authored Date: Radiology * Mauricio Winnie L: PERFORM Event Display: Radiology Results Scanned Authored Date: * Moira Nguyễn: PERFORM Event Display: Radiology Results Scanned Authored Date: * Sylvia Freeman: PERFORM Event Display: Radiology Results Scanned Authored Date: Patient Care team information Care Team Personnel Name: Morena Abraham RN Position: [facility] SN RN Member Role: Primary Care Nurse Name: Jena Barron RN Position: [facility] RN Member Role: Primary Care Nurse Name: Faith Cheek RN Position: [facility] RN Member Role: Primary Care Nurse Name: Rodney He RN Position: [facility] RN Member Role: Primary Care Nurse Name: Barbara Snider RN Position: [facility] SN RN Member Role: Primary Care Nurse Name: Ana Maria Gonzalez RN Position: [facility] RN Member Role: Primary Care Nurse Name: Rae Vigil RN Position: [facility] RN Member Role: Primary Care Nurse Name: Johan Montes RN Position: [facility] RN Member Role: Primary Care Nurse Name: Tony Rhodes MD Position: [facility] Physician - Primary Care Member Role: PCP Address: Address: [address] [place] [id number]- Name: Rachel Brown RN Position: [facility] RN Member Role: Primary Care Nurse Name: Lucia Denton RN Position: [facility] RN Member Role: Primary Care Nurse Name: Quin Oliveira RN Position: [facility] RN Member Role: Primary Care Nurse Name: Chelita Hernandez RN Position: [facility] RN Member Role: Primary Care Nurse Name: Lynette Leon RN Position: [facility] RN Member Role: Primary Care Nurse Name: Shameka Hicks RN Position: [facility] RN Member Role: Primary Care Nurse Name: Lynette Wooten RN Position: [facility] RN Member Role: Primary Care Nurse Name: Batsheva Herring RN Position: [facility] OB RN Member Role: Primary Care Nurse Name: Roxana Hutchison RN Position: [facility] AMB Nurse Member Role: Primary Care Nurse Name: David Mensah RN Position: [facility] RN Member Role: Primary Care Nurse Name: Mary Mckeon RN Position: [facility] AMB Nurse Member Role: Primary Care Nurse Care Team Related Persons Name: FANY CYR Address: [place] [address] Name: KITTY CYR
--- OUTSIDE RECORDS SUMMARY | 2023-09-29 08:02 | XMS_ITS | Continuity of Care Document ---
Author Organization [facility] [address] Address [address] [place] [address]- Care Team Providers Care Epic Cupid Analyst Name Role Phone Meagan DLIL, Tony Gaines Primary Care Physician [phone] [facility]): 06/10/23 - 07/26/23 [facility] Adult [address] [place] [address]- Attending Physician: Karla Seo NP Allergies, Adverse Reactions, Alerts Substance Reaction Severity Status Vioxx Hypertension Mild Active Immunizations Given and Recorded Vaccine Date Status Refusal Reason [id number] bivalent booster vax 03/11/22 Recorded influenza virus [...] Pneumococcal Vacc (oldterm) 05/12/99 Given 1Location History: [facility] 2Admin Note: VIS GIVEN 3Location History: [facility] 4Admin Note: GIVEN BY JOHAN BOWERS BY JUDAH 5Admin Note: GIVEN IN CLINIC SHAM 6Admin Note: [facility] 7Admin Note: H1N1 Medications acetaminophen 325 [...] Gm, 0 Refills, Maintenance, 11/21/22 14:00:00 EDT, [facility], Partial fill upon patient request if [...] 06/30/23 8:40:00 EST, Route to Pharmacy Electronically, [facility], 170, cm, 12/02/22 14:04:00 EDT, Height, [...] Team Personnel Name: Morena Abraham RN Position: [facility] RN Member Role: Primary Care Nurse Name: Jena Barron RN Position: [facility] RN Member Role: Primary Care Nurse Name: Faith Cheek RN Position: [facility] RN Member Role: Primary Care Nurse Name: Rodney He RN Position: [facility] RN Member Role: Primary Care Nurse Name: Barbara Snider RN Position: [facility] SN RN Member Role: Primary Care Nurse Name: Ana Maria Gonzalez RN Position: [facility] RN Member Role: Primary Care Nurse Name: Rae Vigil RN Position: [facility] RN Member Role: Primary Care Nurse Name: Johan Montes RN Position: [facility] RN Member Role: Primary Care Nurse Name: Tony Rhodes MD Position: [facility] Physician - Primary Care Member Role: PCP Address: Address: [address] [place] [id number] Name: Rachel Brown RN Position: [facility] RN Member Role: Primary Care Nurse Name: Lucia Denton RN Position: [facility] RN Member Role: Primary Care Nurse Name: Quin Oliveira RN Position: [facility] RN Member Role: Primary Care Nurse Name: Chelita Hernandez RN Position: [facility] RN Member Role: Primary Care Nurse Name: Lynette Leon RN Position: [facility] RN Member Role: Primary Care Nurse Name: Shameka Hicks RN Position: [facility] RN Member Role: Primary Care Nurse Name: Lynette Wooten RN Position: [facility] RN Member Role: Primary Care Nurse Name: Batsheva Herring RN Position: [facility] OB RN Member Role: Primary Care Nurse Name: Roxana Hutchison RN Position: [facility] AMB Nurse Member Role: Primary Care Nurse Name: David Mensah RN Position: [facility] RN Member Role: Primary Care Nurse Name: Mary Mckeon RN Position: [facility] AMB Nurse Member Role: Primary Care Nurse Care Team Related Persons Name: KLARISSA FANY Address: home [address] [place] [address] Name: KITTY CYR
--- OUTSIDE RECORDS SUMMARY | 2023-09-29 08:05 | XMS_ITS | Continuity of Care Document ---
Author Organization [facility] [address] Address [address] [place] [address]- Care Team Providers Care Convention Services Director Name Role Phone Tony Rhodes MD Primary Care Physician [facility](s): 06/29/23 - 07/29/23 [facility] Adult [address] [place] [address]- Allergies, Adverse Reactions, Alerts Substance Reaction Severity Status Vioxx Hypertension Mild Active Immunizations Given and Recorded Vaccine Date Status Refusal Reason [id number] bivalent booster vax 03/11/22 Recorded influenza virus [...] Pneumococcal Vacc (oldterm) 05/12/99 Given 1Location History: [facility] 2Admin Note: VIS GIVEN 3Location History: [facility] 4Admin Note: GIVEN BY JOHAN DOC BY JUDAH 5Admin Note: GIVEN IN CLINIC [facility]AM 6Admin Note: [facility] 7Admin Note: H1N1 Medications acetaminophen 325 [...] Gm, 0 Refills, Maintenance, 11/21/22 14:00:00 EDT, [facility], Partial fill upon patient request if [...] 06/30/23 8:40:00 EST, Route to Pharmacy Electronically, [facility], 170, cm, 12/02/22 14:04:00 EDT, Height, [...] Team Personnel Name: Morena Abraham RN Position: [facility] RN Member Role: Primary Care Nurse Name: Jena Barron RN Position: S RN Member Role: Primary Care Nurse Name: Faith Cheek RN Position: S RN Member Role: Primary Care Nurse Name: Rodney He RN Position: [facility] RN Member Role: Primary Care Nurse Name: Barbara Snider RN Position: [facility] SN RN Member Role: Primary Care Nurse Name: Ana Maria Gonzalez RN Position: [facility] RN Member Role: Primary Care Nurse Name: Rae Vigil RN Position: [facility] ED RN W/OE and Tasks Member Role: Primary Care Nurse Name: Johan Montes RN Position: [facility] RN Member Role: Primary Care Nurse Name: Tony Rhodes MD Position: [facility] Physician - Primary Care Member Role: PCP Address: Address: [address] [place] [id number] Name: Rachel Brown RN Position: [facility] RN Member Role: Primary Care Nurse Name: Lucia Denton RN Position: [facility] RN Member Role: Primary Care Nurse Name: Quin Oliveira RN Position: [facility] RN Member Role: Primary Care Nurse Name: Chelita Hernandez RN Position: [facility] RN Member Role: Primary Care Nurse Name: Lynette Leon RN Position: [facility] RN Member Role: Primary Care Nurse Name: Shameka Hicks RN Position: [facility] RN Member Role: Primary Care Nurse Name: Lynette Wooten RN Position: [facility] RN Member Role: Primary Care Nurse Name: Batsheva Herring RN Position: [facility] OB RN Member Role: Primary Care Nurse Name: Roxana Hutchison RN Position: [facility] AMB Nurse Member Role: Primary Care Nurse Name: David Mensah RN Position: [facility] RN Member Role: Primary Care Nurse Name: Mary Mckeon RN Position: [facility] AMB Nurse Member Role: Primary Care Nurse Care Team Related Persons Name: FANY CYR Address: home [address] [place] [address] Name: KITTY CYR
--- OUTSIDE RECORDS SUMMARY | 2023-09-29 08:05 | XMS_ITS | Continuity of Care Document ---
Author Organization [facility] [address] Address [address] [place] [address]- Care Team Providers Care Wagon Drill Operator Name Role Phone Tony Rhodes MD Primary Care Physician [phone] [facility]s): 07/06/23 - 08/05/[address] [facility] Adult [address] [place] [address]- Allergies, Adverse Reactions, Alerts Substance Reaction Severity Status Vioxx Hypertension Mild Active Immunizations Given and Recorded Vaccine Date Status Refusal Reason [id number] bivalent booster vax 03/11/22 Recorded influenza virus [...] Pneumococcal Vacc (oldterm) 05/12/99 Given 1Location History: [facility] 2Admin Note: VIS GIVEN 3Location History: [facility] 4Admin Note: GIVEN BY JOHAN DOC BY JUDAH 5Admin Note: GIVEN IN CLINIC [facility] 6Admin Note: [facility] 7Admin Note: H1N1 Medications acetaminophen [...] Gm, 0 Refills, Maintenance, 11/21/22 14:00:00 EDT, [facility], Partial fill upon patient request if [...] 06/30/23 8:40:00 EST, Route to Pharmacy Electronically, [facility], 170, cm, 12/02/22 14:04:00 EDT, Height, [...] Team Personnel Name: Morena Abraham RN Position: [facility] RN Member Role: Primary Care Nurse Name: Jena Barron RN Position: S RN Member Role: Primary Care Nurse Name: Faith Cheek RN Position: S RN Member Role: Primary Care Nurse Name: Rodney He RN Position: [facility] RN Member Role: Primary Care Nurse Name: Barbara Snider RN Position: [facility] SN RN Member Role: Primary Care Nurse Name: Ana Maria Gonzalez RN Position: [facility] RN Member Role: Primary Care Nurse Name: Rae Vigil RN Position: [facility] RN Member Role: Primary Care Nurse Name: Johan Montes RN Position: [facility] RN Member Role: Primary Care Nurse Name: Tony Rhodes MD Position: [facility] Physician - Primary Care Member Role: PCP Address: Address: [address] [place] [id number] Name: Stephanie RNRachel Position: [facility] RN Member Role: Primary Care Nurse Name: Lucia Denton RN Position: [facility] RN Member Role: Primary Care Nurse Name: Quin Oliveira RN Position: [facility] RN Member Role: Primary Care Nurse Name: Chelita Hernandez RN Position: [facility] RN Member Role: Primary Care Nurse Name: Lynette Leon RN Position: [facility] RN Member Role: Primary Care Nurse Name: Shameka Hicks RN Position: [facility] RN Member Role: Primary Care Nurse Name: Lynette Wooten RN Position: [facility] RN Member Role: Primary Care Nurse Name: Batsheva Herring RN Position: [facility] OB RN Member Role: Primary Care Nurse Name: Roxana Hutchison RN Position: [facility] AMB Nurse Member Role: Primary Care Nurse Name: David Mensah RN Position: [facility] RN Member Role: Primary Care Nurse Name: Mary Mckeon RN Position: [facility] AMB Nurse Member Role: Primary Care Nurse Care Team Related Persons Name: FANY CYR Address: home [address] [place] [address] Name: KITTY CYR
--- OUTSIDE RECORDS SUMMARY | 2023-09-29 08:06 | XMS_ITS | Continuity of Care Document ---
Author Organization [facility] [address] [place] Address [address] [place] [address]- Care Team Providers Care Resistor Winder Name Role Phone Meagan DILL, Tony Gaines Primary Care Physician [facility](s): 03/14/23 - 04/27/23 [facility] Adult [address] [place] [address]- Attending Physician: Not on Staff, Attending MD Allergies, Adverse Reactions, Alerts Substance Reaction Severity Status Vioxx Hypertension Mild Active Immunizations Given and Recorded Vaccine Date Status Refusal Reason [id number] bivalent booster vax 03/11/22 Recorded influenza virus [...] vaccine 07/23/13 Given Influenza Virus Vaccine (oldterm) 11/2/20 Recorde d Influenza Virus Vaccine (oldterm) 03/16/08 Given Influenza Virus Vaccine (oldterm) 04/21/07 Given Influenza Virus Vaccine (oldterm) 5 04/15/06 Given pneumococcal 13-valent vaccine 05/03/19 Given Zostavax (oldterm) 02/19/16 Given tetanus/diphtheria/pertussis, acel(Tdap) 07/13/14 Given FluLaval (oldterm) 6 02/21/10 Given influ virus vac, H1N1, inactive(oldterm) 7 05/09/09 Given tetanus-diphtheria toxoids (Td) 05/12/04 Given Pneumococcal Vacc (oldterm) 05/12/99 Given 1Location History: [facility] 2Admin Note: VIS GIVEN 3Location History: [facility] 4Admin Note: GIVEN BY JOHAN BOWERS BY JUDAH 5Admin Note: GIVEN IN CLINIC [facility]AM 6Admin Note: [facility] 7Admin Note: H1N1 Medications acetaminophen 325 [...] Gm, 0 Refills, Maintenance, 11/21/22 14:00:00 EDT, [facility], Partial fill upon patient request if [...] Team Personnel Name: Morena Abraham RN Position: [facility] SN RN Member Role: Primary Care Nurse Name: Jena Barron RN Position: [facility] RN Member Role: Primary Care Nurse Name: Faith Cheek RN Position: [facility] RN Member Role: Primary Care Nurse Name: Rodney He RN Position: [facility] RN Member Role: Primary Care Nurse Name: Barbara Snider RN Position: [facility] SN RN Member Role: Primary Care Nurse Name: Ana Maria Gonzalez RN Position: [facility] RN Member Role: Primary Care Nurse Name: Rae Vigil RN Position: [facility] RN Member Role: Primary Care Nurse Name: Johan Montes RN Position: [facility] RN Member Role: Primary Care Nurse Name: Tony Rhodes MD Position: [facility] Physician - Primary Care Member Role: PCP Address: Address: [address] [place] [address]- Name: Rachel Brown RN Position: [facility] RN Member Role: Primary Care Nurse Name: Lucia Denton RN Position: [facility] RN Member Role: Primary Care Nurse Name: Quin Oliveira RN Position: [facility] RN Member Role: Primary Care Nurse Name: Chelita Hernandez RN Position: [facility] RN Member Role: Primary Care Nurse Name: Lynette Leon RN Position: [facility] RN Member Role: Primary Care Nurse Name: Donald Purcell RN Position: [facility] RN Member Role: Primary Care Nurse Name: Shameka Hicks RN Position: [facility] RN Member Role: Primary Care Nurse Name: Lynette Wooten RN Position: [facility] RN Member Role: Primary Care Nurse Name: Batsheva Herring RN Position: [facility] OB RN Member Role: Primary Care Nurse Name: Roxana Hutchison RN Position: [facility] AMB Nurse Member Role: Primary Care Nurse Name: David Mensah RN Position: [facility] RN Member Role: Primary Care Nurse Name: Mary Mckeon RN Position: [facility] AMB Nurse Member Role: Primary Care Nurse Care Team Related Persons Name: FANY CYR Address: [place] [address] Name: KITTY CYR
--- OUTSIDE RECORDS SUMMARY | 2023-09-29 08:07 | XMS_ITS | Continuity of Care Document ---
Author Organization [facility] [address] Address [address] [place] [address]- Care Team Providers Care Felt Finishing Supervisor Name Role Phone Tony Rhodes MD Primary Care Physician [phone] [facility] 06/17[facility]23 - 07/17/23 [facility] [address] [place] [address]- Allergies, Adverse Reactions, Alerts Substance Reaction Severity Status Vioxx Hypertension Mild Active Immunizations Given and Recorded Vaccine Date Status Refusal Reason [id number] bivalent booster vax 03/11/22 Recorded influenza virus [...] Pneumococcal Vacc (oldterm) 05/12/99 Given 1Location History: [facility] 2Admin Note: VIS GIVEN 3Location History: [facility] 4Admin Note: GIVEN BY JOHAN DOC BY JUDAH 5Admin Note: GIVEN IN CLINIC [facility] 6Admin Note: [facility] 7Admin Note: H1N1 Medications acetaminophen [...] Gm, 0 Refills, Maintenance, 11/21/22 14:00:00 EDT, [facility], Partial fill upon patient request if [...] 06/30/23 8:40:00 EST, Route to Pharmacy Electronically, [facility], 170, cm, 12/02/22 14:04:00 EDT, Height, [...] Team Personnel Name: Morena Abraham RN Position: [facility] RN Member Role: Primary Care Nurse Name: Jena Barron RN Position: S RN Member Role: Primary Care Nurse Name: Faith Cheek RN Position: S RN Member Role: Primary Care Nurse Name: Rodney He RN Position: [facility] RN Member Role: Primary Care Nurse Name: Barbara Snider RN Position: [facility] SN RN Member Role: Primary Care Nurse Name: Ana Maria Gonzalez RN Position: [facility] RN Member Role: Primary Care Nurse Name: Rae Vigil RN Position: [facility] ED RN W/OE and Tasks Member Role: Primary Care Nurse Name: Johan Montes RN Position: [facility] RN Member Role: Primary Care Nurse Name: Tony Rhodes MD Position: [facility] Physician - Primary Care Member Role: PCP Address: Address: [address] [place] [id number] Name: Rachel Brown RN Position: [facility] RN Member Role: Primary Care Nurse Name: Lucia Denton RN Position: [facility] RN Member Role: Primary Care Nurse Name: Quin Oliveira RN Position: [facility] RN Member Role: Primary Care Nurse Name: Chelita Hernandez RN Position: [facility] RN Member Role: Primary Care Nurse Name: Lynette Leon RN Position: [facility] RN Member Role: Primary Care Nurse Name: Shameka Hicks RN Position: [facility] RN Member Role: Primary Care Nurse Name: Lynette Wooten RN Position: [facility] RN Member Role: Primary Care Nurse Name: Batsheva Herring RN Position: [facility] OB RN Member Role: Primary Care Nurse Name: Roxana Hutchison RN Position: [facility] AMB Nurse Member Role: Primary Care Nurse Name: David Mensah RN Position: [facility] RN Member Role: Primary Care Nurse Name: Mary Mckeon RN Position: [facility] AMB Nurse Member Role: Primary Care Nurse Care Team Related Persons Name: FANY CYR Address: home [address] [place] [address] Name: KITTY CYR
--- OUTSIDE RECORDS SUMMARY | 2023-09-29 08:08 | XMS_ITS | Continuity of Care Document ---
Author Organization [facility] [address] Address [address] [place] [address]- Care Team Providers Care Drug Coordinator Name Role Phone Tony Rhodes MD Primary Care Physician [phone] [facility]17[facility]23 - 06/22/23 [facility] Adult [address] [place] [address]- Attending Physician: Not on Staff, Attending MD Allergies, Adverse Reactions, Alerts Substance Reaction Severity Status Vioxx Hypertension Mild Active Immunizations Given and Recorded Vaccine Date Status Refusal Reason [id number] bivalent booster vax 03/11/22 Recorded influenza virus [...] (oldterm) 05/12/99 Given 1Location History: [facility] 2Admin Note: VIS GIVEN 3Location History: [facility] 4Admin Note: GIVEN BY JOHAN BOWERS BY JUDAH 5Admin Note: GIVEN IN CLINIC [facility] 6Admin Note: [facility] 7Admin Note: H1N1 Medications acetaminophen 325 [...] Team Personnel Name: Morena Abraham RN Position: [facility] SN RN Member Role: Primary Care Nurse Name: Jena Barron RN Position: [facility] RN Member Role: Primary Care Nurse Name: Faith Cheek RN Position: [facility] RN Member Role: Primary Care Nurse Name: Rodney He RN Position: [facility] RN Member Role: Primary Care Nurse Name: Barbara Snider RN Position: [facility] SN RN Member Role: Primary Care Nurse Name: Ana Maria Gonzalez RN Position: [facility] RN Member Role: Primary Care Nurse Name: Rae Vigil RN Position: [facility] ED RN W/OE and Tasks Member Role: Primary Care Nurse Name: Johan Montes RN Position: [facility] RN Member Role: Primary Care Nurse Name: Tony Rhodes MD Position: [facility] Physician - Primary Care Member Role: PCP Address: Address: [address] [place] [id number]- Name: Rachel Brown RN Position: [facility] RN Member Role: Primary Care Nurse Name: Lucia Denton RN Position: [facility] RN Member Role: Primary Care Nurse Name: Quin Oliveira RN Position: [facility] RN Member Role: Primary Care Nurse Name: Chelita Hernandez RN Position: [facility] RN Member Role: Primary Care Nurse Name: Lynette Leon RN Position: [facility] RN Member Role: Primary Care Nurse Name: Shameka Hicks RN Position: [facility] RN Member Role: Primary Care Nurse Name: Lynette Wooten RN Position: [facility] RN Member Role: Primary Care Nurse Name: Batsheva Herring RN Position: [facility] OB RN Member Role: Primary Care Nurse Name: Roxana Hutchison RN Position: [facility] AMB Nurse Member Role: Primary Care Nurse Name: David Mensah RN Position: [facility] RN Member Role: Primary Care Nurse Name: Mary Mckeon RN Position: [facility] AMB Nurse Member Role: Primary Care Nurse Care Team Related Persons Name: FANY CYR Address: [address] [address] Name: KITTY CYR
--- OUTSIDE RECORDS SUMMARY | 2023-09-29 08:10 | XMS_ITS | Continuity of Care Document ---
Author Organization [facility] [address] Address [address] [place] [address]- Care Team Providers Care Yarn Hauler Name Role Phone Tony Rhodes MD Primary Care Physician [facility] 06/04/23 - 07/04/23 [facility] Adult [address] [place] [address]- Allergies, Adverse Reactions, Alerts Substance Reaction Severity Status Vioxx Hypertension Mild Active Immunizations Given and Recorded Vaccine Date Status Refusal Reason [id number] bivalent booster vax 03/11/22 Recorded influenza virus [...] Pneumococcal Vacc (oldterm) 05/12/99 Given 1Location History: [facility] 2Admin Note: VIS GIVEN 3Location History: [facility] 4Admin Note: GIVEN BY JOHAN DOC BY JUDAH 5Admin Note: GIVEN IN CLINIC [facility] 6Admin Note: [facility] 7Admin Note: H1N1 Medications acetaminophen [...] Gm, 0 Refills, Maintenance, 11/21/22 14:00:00 EDT, [facility], Partial fill upon patient request if [...] 06/30/23 8:40:00 EST, Route to Pharmacy Electronically, [facility], 170, cm, 12/02/22 14:04:00 EDT, Height, 45.7, kg... Start Date: 06/30/23 Status: Ordered aspirin 81 mg oral delayed release tablet 1 tablet = 81 mg, By Mouth, Daily, Maintenance, 09/21/21 16:04:00 EDT Start Date: 09/21/21 Status: Ordered atorvastatin 40 mg oral tablet 1 tablet = 40 mg, By Mouth, Daily, # 90 tablet, 1 Refills, Soft Stop, 11/21/22 14:00:00 EDT, [facility], 170, cm, 11/21/22 13:36:00 EDT, Height, 45.7, [...] 2 Refills, Maintenance, 09/05/22 13:34:00 EDT, Tablet, [facility], 170, cm, 08/01/22 14:54:00 EDT, Height, [...] Team Personnel Name: Morena Abraham RN Position: [facility] RN Member Role: Primary Care Nurse [...] Primary Care Member Role: PCP Address: Address: [address] [place] [phone]- Name: Rachel Brown RN Position: [facility] [...] Name: FANY CYR Address: home [address] [place] [address] Name: KITTY CYR
--- OUTSIDE RECORDS SUMMARY | 2023-09-29 08:10 | XMS_ITS | Continuity of Care Document ---
Author Organization [facility] [place] Address [address] [place] [address]- Care Team Providers Care Research Nurse Name Role Phone Tony Rhodes MD Primary Care Physician Encounter [facility] Date(s): 06/29/23 - 07/29/23 [facility] Adult [address] [place] [address]- Allergies, Adverse Reactions, Alerts Substance Reaction Severity Status Vioxx Hypertension Mild Active Immunizations Given and Recorded Vaccine Date Status Refusal Reason [id number] bivalent booster vax 03/11/22 Recorded influenza virus [...] Pneumococcal Vacc (oldterm) 05/12/99 Given 1Location History: [facility] 2Admin Note: VIS GIVEN 3Location History: [facility] 4Admin Note: GIVEN BY JOHAN DOC BY JUDAH 5Admin Note: GIVEN IN [facility] 6Admin Note: My Point...Exactly [facility] 7Admin Note: H1N1 Medications acetaminophen 325 mg [...] Gm, 0 Refills, Maintenance, 11/21/22 14:00:00 EDT, [facility], Partial fill upon patient request if [...] 06/30/23 8:40:00 EST, Route to Pharmacy Electronically, [facility], 170, cm, 12/02/22 14:04:00 EDT, Height, [...] Team Personnel Name: Morena Abraham RN Position: [facility] RN Member Role: Primary Care Nurse Name: Jena Barron RN Position: S RN Member Role: Primary Care Nurse Name: Faith Cheek RN Position: S RN Member Role: Primary Care Nurse Name: Rodney He RN Position: [facility] RN Member Role: Primary Care Nurse Name: Barbara Snider RN Position: [facility] SN RN Member Role: Primary Care Nurse Name: Ana Maria Gonzalez RN Position: [facility] RN Member Role: Primary Care Nurse Name: Rae Vigil RN Position: [facility] ED RN W/OE and Tasks Member Role: Primary Care Nurse Name: Johan Montes RN Position: [facility] RN Member Role: Primary Care Nurse Name: Tony Rhodes MD Position: [facility] Physician - Primary Care Member Role: PCP Address: Address: [address] [place] [id number] Name: Rachel Brown RN Position: [facility] RN Member Role: Primary Care Nurse Name: Lucia Denton RN Position: [facility] RN Member Role: Primary Care Nurse Name: Quin Olvieira RN Position: [facility] RN Member Role: Primary Care Nurse Name: Chelita Hernandez RN Position: [facility] RN Member Role: Primary Care Nurse Name: Lynette Leon RN Position: [facility] RN Member Role: Primary Care Nurse Name: Shameka Hicks RN Position: [facility] RN Member Role: Primary Care Nurse Name: Lynette Wooten RN Position: [facility] RN Member Role: Primary Care Nurse Name: Batsheva Herring RN Position: [facility] OB RN Member Role: Primary Care Nurse Name: Roxana Hutchison RN Position: [facility] AMB Nurse Member Role: Primary Care Nurse Name: David Mensah RN Position: [facility] RN Member Role: Primary Care Nurse Name: Mary Mckeon RN Position: [facility] AMB Nurse Member Role: Primary Care Nurse Care Team Related Persons Name: FANY CYR Address: home [address] [place] [address] Name: KITTY CYR
[2023-09-29] MEDS: Piperacillin Sodium/Tazobactam 3.375 GM in 0.9 % Sodium Chloride 50 ML IV (08:15)
[2023-09-29 08:22] LABS: Procalcitonin 0.02 ng/mL
[2023-09-29 08:30] LABS: Erythrocyte Sedimentation Rate 10 MM/HR (0-15)
[2023-09-29] MEDS: levETIRAcetam in NaCl (iso-os) 500 MG/100 ML PIGGYBACK 400 MG IV (08:31)
[2023-09-29 10:47] LABS: Amphetamine Screen Urine Not Detected (Not Detect); Barbiturates, Urine Not Detected (Not Detect); Benzodiazepines Screen Urine Not Detected (Not Detect); Buprenorphine Scr Not Detected (Not Detect); Cannabinoid Screen Urine Not Detected (Not Detect); Cocaine Screen Urine Not Detected (Not Detect); Fentanyl, urine POSITIVE (Not Detect); Methadone Screen, Urine Not Detected (Not Detect); Opiate Screen Urine POSITIVE (Not Detect); Oxycodone Screen Urine Not Detected (Not Detect); Phencyclidine Screen Urine Not Detected (Not Detect)
[2023-09-29 10:56] LABS: Appearance Urine Clear; Color Urine Yellow; Glucose Urine UA Negative (Negative); Leukocyte Esterase Urine Negative (Negative); Nitrite Urine Negative (Negative); PH 5.5 (5.0-9.0); UMIC TRIGGER UACC YES; Urine Blood Negative (Negative); Urine Ketones Trace mg/dL (Negative); Urine Protein 30 (1+) mg/dL (Neg-Trace)
[2023-09-29 10:58] LABS: Bacteria Urine None Seen (None Seen); Hyaline Casts Urine 0-2 /LPF (0-2); RBC Urine 0-2 /HPF (0-2); Squamous Epithelial Cell Urine 0-2 /HPF (0-2); WBC Urine 0-5 /HPF (0-5)
[2023-09-29 10:58] LABS: Ammonia 25 umol/L (13-55)
[2023-09-29 11:01] LABS: Lactic Acid 1.8 mmol/L (0.5-2.0)
--- NOTE | 2023-09-29 12:02 | P.HPHOSP_ITS ---
History of Present Illness Date of Service: 09/29/23 Attending physician on admission: Rodolfo Black Chief Complaint: confusion 68-year-old male with a PMH significant for?paroxysmal AFib not compliant with Eliquis, CAD s/p CABG, ishcemic cardiomyopathy, PAD s/p AKA, hx prior CVAs (last in July of this year), seizure disorder, HTN, HLD, COPD not on home O2, chronic wound of the R hip, and hx of substance abuse presented to the ED after his found him altered in the middle of the night. Denies any witnessed seizure activity, but reports patient was calling out for his aunt and was disoriented. Per ED report was still disoriented, agitated, calling out for people on arrival. However, no sedation or seizure activity noted. No focal neuro deficits on arrival. On my exam, patient remains disoriented to time. On arrival, slightly tachycardic to 102 with temp 99.6. WBC 16.5. Renal function baseline, lytes normal except co2. However, subsequent vbg shows normal ph 7.34, pc02 34, hco3 18. Lactic acid 1.8. Ammonia 25. Initial trop 27.7, repeat pending. UA unremarkable. UTox positive for fentanyl and opiates. Negative for covid, flu, rsv. CXR not indicative of infection. CT head negative for acute intracranial abnormality but shows chronic infarcts of left temporal, left frontal, and left cerebrellar encephalomalacia/old infarcts with chronic white matter disease. He is noted to have a chronic wound of the right hip that has not been evaluated by a medical provider in 3+ months ( has been managing dressings). Given concern for possible infection patient was given zosyn. Also given keppra in ed in case of breakthrough seizure, though unwitnessed. he will be admitted for further management of encephalopathy of unclear etiology. Review of Systems 2 Review of Systems: General: No fevers, malaise, unintentional weight loss HEENT: No blurred vision, diplopia. No sore throat, nasal congestion, rhinorrhea, sinus pain, ear pain Cardiovascular: No chest pain, palpitations, or leg edema Respiratory: No shortness of breath, wheezing, cough GI: No abdominal pain, nausea, vomiting, diarrhea, constipation, melena, hematochezia : No dysuria, hematuria, increased urinary frequency, decreased urinary output MSK: No myalgia, back pain Neuro: No headaches, weakness, paresthesias Skin: No rashes or lesions [facility] Medical History Ischemic cardiomyopathy Cerebellar infarction Seizure Above knee amputation of left lower extremity Fall Leukocytosis MDD (major depressive disorder), recurrent episode, moderate Opioid use disorder, moderate, dependence Pneumonitis Pneumonia Atherosclerotic cardiovascular disease History of hemorrhagic cerebrovascular accident (CVA) without residual deficits Subclavian arterial stenosis Atrial flutter Cardiomyopathy Opioid use disorder Seizure disorder Acute combined systolic and diastolic congestive heart failure COPD (chronic obstructive pulmonary disease) Cocaine abuse with intoxication Toxic encephalopathy 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 Patient Tobacco Use Status: Current everyday Tobacco user Tobacco use type: Cigarette Cigarette Packs Per Day: 1.5 Cigarettes Per Day: 30.0 Years Smoked: 25 Smoked in Last 30 Days: Yes e-Cigarette/Vaping Use: Currently Using Second Hand Smoke Exposure: No Use of substances other than those prescribed or required for medical reasons: No Substance Use Type: Heroin Advance Directives: Yes Advance Directives on File: Yes Advance Directives Date on File: 01/12/21 Do you have a plan to hurt others: No Plan Nutrition Risks: No Nutritional Risk service: No Current occupational status: retired Meds Allergies Allergy/AdvReac Type Severity Reaction Status Date / Time No Known Allergies Allergy Verified 09/29/23 05:40 Active Medications: Current Medications Acetaminophen (Acetaminophen 325 Mg Tablet) 650 mg PO Q6H PRN PRN Reason: Pain, Mild (Pain Scale 1-3) Magnesium Hydroxide (Milk Of Magnesia 30 Ml Oral.Susp) 30 ml PO DAILY PRN PRN Reason: Constipation Melatonin (Melatonin 3 Mg Tablet) 6 mg PO BEDTIME PRN PRN Reason: Insomnia Ondansetron HCl (Ondansetron Hcl 4 Mg/2 Ml Vial) 4 mg IVPUSH Q8H PRN PRN Reason: Nausea and Vomiting Sodium Chloride (0.9 % Sodium Chloride Flush 3 Ml Syringe) 3 ml [facility]FLUSH [facility] Medications ?Medication ?Instructions ?Recorded ?Confirmed ?Last Taken ?Type apixaban 5 mg tablet (Eliquis) 5 mg PO BID 04/27/23 09/29/23 2 Weeks Ago History ~04/13/23 docusate sodium 100 mg capsule 100 mg PO BID 04/27/23 09/29/23 2 Weeks Ago History ~04/13/23 amiodarone 200 mg tablet 400 mg PO BID 09/29/23 09/29/23 Unknown History clonidine HCl 0.1 mg tablet 0.1 mg PO BID 09/29/23 09/29/23 Unknown History metoprolol succinate 25 mg 25 mg PO DAILY 09/29/23 09/29/23 Unknown History tablet,extended release 24 hr oxycodone 5 mg tablet 10 mg PO Q6H PRN severe pain 09/29/23 09/29/23 Unknown History pentoxifylline 400 mg 400 mg PO BID 09/29/23 09/29/23 Unknown History tablet,extended release Physical Exam 2 Vital Signs and Narrative: Vital Signs: Last Vital Signs Temp 99.6 F 09/29/23 07:53 Pulse 88 09/29/23 08:42 Resp 13 09/29/23 08:42 BP 131/59 L 09/29/23 08:42 Pulse Ox 100 09/29/23 08:42 O2 Del Method Room Air 09/29/23 08:42 BMI result Body Mass Index 20.5 Constitutional - Awake and Alert, No apparent distress Eyes - PERRLA, EOMI Cardiovascular - S1S2, RRR, No edema Respiratory - Normal lung expansion, Normal respiratory effort, No respiratory distress, CTA bilaterally Gastrointestinal - NT / ND; +BS; No rebound or guarding Extremities - no calf tenderness, no swelling, s/p left aka Skin - Warm/Dry. Quarter sized stage 3 pressure ulcer wiht minimal surrounding erythema at the wound edges with pink moist tissue and some slough. No purulent drainage. Stage 1 pressure ulcer R hip Neurological - Alert & oriented to place and self, disoriented to time, CN II- XII in tact, 5/5 strength BUE and BLE Psychological - Appropriate affect Results Labs 09/29/23 06:04 09/29/23 13:26 Labs: Laboratory Results - last 24 hr 09/29/23 09/29/23 09/29/23 06:04 07:22 10:31 MCV 87.5 MCH 29.7 MCHC 33.9 RDW 15.2 Plt Count 141 L MPV 9.7 Immature Gran % (Auto) 0.7 H Neut % (Auto) 72.6 Lymph % (Auto) 14.3 L [place] % (Auto) 7.9 Eos % (Auto) 3.9 Baso % (Auto) 0.6 Lymph # (Auto) 2.4 Johnston # (Auto) 1.3 H Eos # (Auto) 0.6 H Baso # (Auto) 0.1 Abs Immat Gran (auto) 0.11 H Absolute Neuts (auto) 12.0 H Absolute Nucleated RBC 0.000 Nucleated RBC % (auto) 0.0 ESR 10 PT 12.6 INR 1.0 VBG pH 7.34 VBG pCO2 34 VBG pO2 49 VBG HCO3 18 L VBG O2 Saturation 76.0 VBG Base Excess -5.9 Anion Gap 24 H Estim Creat Clear Calc 56.1 Estimated GFR > 60 Random Glucose 138 H Lactic Acid Calcium 9.5 Total Bilirubin 0.3 AST 16 ALT 10 Alkaline Phosphatase 102 Ammonia Troponin I High Sens 27.7 D C-Reactive Protein 0.50 Total Protein 8.0 Albumin 4.2 Procalcitonin 0.02 Urine Color Yellow Urine Appearance Clear Urine pH 5.5 Ur Specific [place] 1.020 Urine Protein 30 (1+) H Urine Glucose (UA) Negative Urine Ketones Trace Urine Blood Negative Urine Nitrite Negative Ur Leukocyte Esterase Negative Urine RBC 0-2 Urine WBC 0-5 Ur Squamous Epith Cells 0-2 Urine Bacteria None Seen Hyaline Casts 0-2 Urine Opiates Screen POSITIVE H Ur Buprenorphine Scrn Not Detected Ur Oxycodone Screen Not Detected Urine Methadone Screen Not Detected Urine Fentanyl Screen POSITIVE H Ur Barbiturates Screen Not Detected Ur Phencyclidine Scrn Not Detected Ur Amphetamines Screen Not Detected U Benzodiazepines Scrn Not Detected Urine Cocaine Screen Not Detected U Marijuana (THC) Screen Not Detected Influenza Type A (PCR) NEGATIVE Influenza Type B (PCR) NEGATIVE RSV RNA Qual (PCR) NEGATIVE SARS-CoV-2 RNA (RT-PCR) NEGATIVE 09/29/23 10:39 MCV MCH MCHC RDW Plt Count MPV Immature Gran % (Auto) Neut % (Auto) Lymph % (Auto) [place] % (Auto) Eos % (Auto) Baso % (Auto) Lymph # (Auto) [place] # (Auto) Eos # (Auto) Baso # (Auto) Abs Immat Gran (auto) Absolute Neuts (auto) Absolute Nucleated RBC Nucleated RBC % (auto) ESR PT INR VBG pH VBG pCO2 VBG pO2 VBG HCO3 VBG O2 Saturation VBG Base Excess Anion Gap Estim Creat Clear Calc Estimated GFR Random Glucose Lactic Acid 1.8 Calcium Total Bilirubin AST ALT Alkaline Phosphatase Ammonia 25 Troponin I High Sens C-Reactive Protein Total Protein Albumin Procalcitonin Urine Color Urine Appearance Urine pH Ur Specific [place] Urine Protein Urine Glucose (UA) Urine Ketones Urine Blood Urine Nitrite Ur Leukocyte Esterase Urine RBC Urine WBC Ur Squamous Epith Cells Urine Bacteria Hyaline Casts Urine Opiates Screen Ur Buprenorphine Scrn Ur Oxycodone Screen Urine Methadone Screen Urine Fentanyl Screen Ur Barbiturates Screen Ur Phencyclidine Scrn Ur Amphetamines Screen U Benzodiazepines Scrn Urine Cocaine Screen U Marijuana (THC) Screen Influenza Type A (PCR) Influenza Type B (PCR) RSV RNA Qual (PCR) SARS-CoV-2 RNA (RT-PCR) Imaging Radiologist's Impressions: Impressions Head CT 09/29/23 06:30 IMPRESSION: 1. No acute intracranial abnormality. 2. Chronic left temporal, left frontal, and left cerebellar encephalomalacia/old infarcts. 3. Mild to moderate periventricular and central white matter diminished attenuation is nonspecific, but commonly chronic small vessel ischemic changes. 4. Sinus disease. Chest X-Ray 09/29/23 06:35 IMPRESSION: 1. Unchanged no radiographic signs of acute cardiopulmonary process. 2. Unchanged status post median sternotomy. Assessment and Plan (1) Acute metabolic encephalopathy: Status: Acute (2) Pressure ulcer of right hip, stage 3: Status: Acute Plan 68-year-old male with a PMH significant for?paroxysmal AFib not compliant with Eliquis, CAD s/p CABG, PAD s/p AKA, hx prior CVAs (last in July of this year), seizure disorder, HTN, HLD, COPD not on home O2, chronic wound of the R hip, and hx of substance abuse admitted for further management of acute metabolic encephalopathy of unclear etiology. #Acute metabolic encephalopathy- etiology unclear -question underlying infection with possible infected wound R hip with SIRS criteria -UTox always positive for fentanyl and opiates, no sedation, does not appear to be opiate intoxication -head ct negative for acute intracranial abnormality -?breakthrough seizure vs cva (outside TNK window) -eeg ordered -mri brain ordered -neuro consult ordered -continue keppra -monitor mentation #Possible infected stage 3 pressure ulcer R hip -leukocytosis 16.5. Tachycardia likely agitation, resolved on admission. Doubt sepsis -CRP/ESR WNL, PCT wnl -IV vanco, cefazolin (initiated 09/28) -xr R hip ordered -wound care consult -follow cbc, cultures #Elevated trops -27-->317. No chest pain. EKG no acute ischemia -repeat trope in 3 hours per Cardiology -echocardiogram -cardiology consult #Paroxysmal atrial fibrillation- rate controlled -noncompliant with eliquis at home, resume eliquis 5mg bid -noncompliant with amiodorone, cardiology consult re continuation? #Hx CVA -continue eliquis, asa, statin #Epileptic seizure d/o w/ h/o status epilepticus -keppra 500mg bid #CAD/PAD/Ischemic CM -continue home meds #Cigarette smoking -cessation advised -patches nrt dvt prophylaxis- eliquis full code pt requires inpt stay at least 2 midnights due to acute metabolic encephalopathy of unclear etiology requiring further investigations, expert consultation and empiric iv abx given possible infection contributing to ama. Quality Stroke Does the patient have a stroke diagnosis?: No VTE Prior VTE?: No VTE Risk Level:: Medical - moderate - high VTE Device Contraindication: Treatment Not Indicated VTE Drug Contraindication: N/A - Med Ordered
--- NOTE | 2023-09-29 12:52 | PC.NURSE ---
Patient refusing his EEG today per department, I did inform PA and she said it can wait until tomorrow.
[2023-09-29 13:44] LABS: Anion Gap 16 (12-20); Blood Urea Nitrogen 13 mg/dL (9-16); Calcium 9.3 mg/dL (8.4-10.2); Carbon Dioxide 22 mmol/L (22-29); Chloride 105 mmol/L (96-108); Creatinine Clr Calc Pharmacy 62.3; Estimated Glomerular Filt Rate > 60; Glucose Random 98 mg/dL (60-115); Potassium 4.7 mmol/L (3.3-5.1); Sodium 138 mmol/L (135-145)
[2023-09-29 13:56] LABS: Troponin-I High Sensitivity 310.7 ng/L (<3.5-35.0)
--- NOTE | 2023-09-29 14:14 | PHA.MEDREC ---
Pharmacy Consult ? Medication Reconciliation Pharmacy has completed the medication reconciliation. spoke with over the phone. She read off of patients medication bottles at home. [facility] I called to verify with them and they report that patient has not picked up anything since June and does not have any fills for eliquis at their pharmacy. Pharmacist over the phone explained that he does not have insurance coverage for his medications and is unsure where he gets the eliquis from.
[2023-09-29] MEDS: ceFAZolin Sodium/Dextrose,Iso 2 GM/50 ML PIGGYBACK IV ×2 (14:34→20:27)
[2023-09-29] MEDS: Nicotine 21 MG PATCH.TD24 TRANSDERMA (14:34)
--- NOTE | 2023-09-29 15:33 | P.CONCA_ITS ---
History of Present Illness History of Present Illness Date of Service: 09/29/23 Requesting physician: Sarah Parra Chief complaint: Encephalopathy, ?cva vs sz Narrative: [age] year gentleman who we have been asked to see for abnormal troponin levels. He has background history of substance abuse and coronary artery bypass surgery. He also had above-knee amputation in the past. Apparently presented with encephalopathy. There is some question about medication noncompliance. He had normal troponin initially but repeat troponin was elevated. EKGs showing old anteroseptal infarct. Echo previously has shown mildly reduced EF with inferior inferoseptal wall motion abnormalities. He is denying any symptoms currently. He is saying he does not know why he is in the hospital. Urine drug screen is positive for opiates and fentanyl. [facility] Past Medical History Medical History Ischemic cardiomyopathy Cerebellar infarction Seizure Above knee amputation of left lower extremity Fall Leukocytosis MDD (major depressive disorder), recurrent episode, moderate Opioid use disorder, moderate, dependence Pneumonitis Pneumonia Atherosclerotic cardiovascular disease History of hemorrhagic cerebrovascular accident (CVA) without residual deficits Subclavian arterial stenosis Atrial flutter Cardiomyopathy Opioid use disorder Seizure disorder Acute combined systolic and diastolic congestive heart failure COPD (chronic obstructive pulmonary disease) Cocaine abuse with intoxication Toxic encephalopathy 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 Hyperlipemia CHF (congestive heart failure) Seizure-like activity Cardiac arrest Atrial flutter Paroxysmal atrial fibrillation PVD (peripheral vascular disease) CAD (coronary artery disease) Heroin use Surgical History Surgical History Hx of AKA (above knee amputation) S/P CABG x 2 Social History Social History Household Members: Spouse Housing: House Do you presently have visiting nurse or other home services: No Unable to assess alcohol history related to: Unable to respond Alcohol intake: current Alcohol intake frequency: does not drink Comment: Pt refused bed alarm, [employer] camera outside patient's room for safety. Patient Tobacco Use Status: Current everyday Tobacco user Tobacco use type: Cigarette Cigarette Packs Per Day: 1.5 Cigarettes Per Day: 30.0 Years Smoked: 25 Smoked in Last 30 Days: Yes e-Cigarette/Vaping Use: Currently Using Second Hand Smoke Exposure: No Use of substances other than those prescribed or required for medical reasons: No Substance Use Type: Heroin Advance Directives: Yes Advance Directives on File: Yes Advance Directives Date on File: 01/12/21 Do you have a plan to hurt others: No Plan Nutrition Risks: No Nutritional Risk service: No Current occupational status: retired Meds Allergies Allergy/AdvReac Type Severity Reaction Status Date / Time No Known Allergies Allergy Verified 09/29/23 05:40 Active Medications: Current Medications Acetaminophen (Acetaminophen 325 Mg Tablet) 650 mg PO Q6H PRN PRN Reason: Pain, Mild (Pain Scale 1-3) Apixaban (Apixaban 5 Mg Tablet) 5 mg PO BID [facility] Clonidine HCl (Clonidine Hcl 0.1 Mg Tablet) 0.1 mg PO BID [facility]; Protocol Docusate Sodium (Docusate Sodium 100 Mg Capsule) 100 mg PO BID [facility] Cefazolin Sodium/Dextrose (Ancef) 2 gm in 50 mls @ 100 mls/hr IV Q8H [facility] Last Admin: 09/29/23 14:34 Dose: 100 mls/hr Magnesium Hydroxide (Milk Of Magnesia 30 Ml Oral.Susp) 30 ml PO DAILY PRN PRN Reason: Constipation Melatonin (Melatonin 3 Mg Tablet) 6 mg PO BEDTIME PRN PRN Reason: Insomnia Metoprolol Succinate (Metoprolol Succinate Er 25 Mg Tab.Er.24h) 25 mg PO DAILY [facility]; Protocol Nicotine (Nicotine 21 Mg Patch.Td24) 21 mg TRANSDERMA DAILY [facility] Last Admin: 09/29/23 14:34 Dose: 21 mg Ondansetron HCl (Ondansetron Hcl 4 Mg/2 Ml Vial) 4 mg IVPUSH Q8H PRN PRN Reason: Nausea and Vomiting Oxycodone HCl (Oxycodone Hcl Immed Release 5 Mg Tablet) 10 mg PO Q6H PRN PRN Reason: severe pain Pentoxifylline (Pentoxifylline Er 400 Mg Tablet.Er) 400 mg PO BID [facility] Pharmacy Consult (Consult Rx Vancomycin Dosing) 1 each MISCELLANE DAILY PRN PRN Reason: Consult order Sodium Chloride (0.9 % Sodium Chloride Flush 3 Ml Syringe) [facility] Medications ?Medication ?Instructions ?Recorded ?Confirmed ?Last Taken ?Type apixaban 5 mg tablet (Eliquis) 5 mg PO BID 04/27/23 09/29/23 2 Weeks Ago History ~04/13/23 docusate sodium 100 mg capsule 100 mg PO BID 04/27/23 09/29/23 2 Weeks Ago History ~04/13/23 amiodarone 200 mg tablet 400 mg PO BID 09/29/23 Unknown History clonidine HCl 0.1 mg tablet 0.1 mg PO BID 09/29/23 09/29/23 Unknown History metoprolol succinate 25 mg 25 mg PO DAILY 09/29/23 09/29/23 Unknown History tablet,extended release 24 hr oxycodone 5 mg tablet 10 mg PO Q6H PRN severe pain 09/29/23 09/29/23 Unknown History pentoxifylline 400 mg 400 mg PO BID 09/29/23 09/29/23 Unknown History tablet,extended release Physical Exam 2 Vital Signs: Vital Signs: Last Vital Signs Temp 99.6 F 09/29/23 07:53 Pulse 88 09/29/23 08:42 Resp 13 09/29/23 08:42 BP 131/59 L 09/29/23 08:42 Pulse Ox 100 09/29/23 08:42 O2 Del Method Room Air 09/29/23 08:42 BMI result Body Mass Index 20.5 GENERAL APPEARANCE: in no acute distress, pleasant. NECK: no carotid bruit, no jugular venous distention. SKIN: no suspicious lesions, warm and dry. HEART: no murmurs, regular rate and rhythm. LUNGS: clear to auscultation bilaterally. ABDOMEN: soft, nontender. EXTREMITIES: no edema. Left above-knee amputation. PERIPHERAL PULSES: equal. NEUROLOGIC: No gross deficits, AAO X 3 Objective Labs and Meds 09/29/23 06:04 09/29/23 13:26 Lab results: Laboratory Results - last 24 hr 09/29/23 09/29/23 09/29/23 06:04 07:22 10:31 WBC 16.5 H RBC 5.22 D Hgb 15.5 D Hct 45.7 D MCV 87.5 MCH 29.7 MCHC 33.9 RDW 15.2 Plt Count 141 L MPV 9.7 Immature Gran % (Auto) 0.7 H Neut % (Auto) 72.6 Lymph % (Auto) 14.3 L Cook % (Auto) 7.9 Eos % (Auto) 3.9 Baso % (Auto) 0.6 Lymph # (Auto) 2.4 Cook # (Auto) 1.3 H Eos # (Auto) 0.6 H Baso # (Auto) 0.1 Abs Immat Gran (auto) 0.11 H Absolute Neuts (auto) 12.0 H Absolute Nucleated RBC 0.000 Nucleated RBC % (auto) 0.0 ESR 10 PT 12.6 INR 1.0 VBG pH 7.34 VBG pCO2 34 VBG pO2 49 VBG HCO3 18 L VBG O2 Saturation 76.0 VBG Base Excess -5.9 Sodium 136 Potassium 3.8 Chloride 104 Carbon Dioxide 12 L Anion Gap 24 H BUN 15 Creatinine 1.01 Estim Creat Clear Calc 56.1 Estimated GFR > 60 Random Glucose 138 H Lactic Acid Calcium 9.5 Total Bilirubin 0.3 AST 16 ALT 10 Alkaline Phosphatase 102 Ammonia Troponin I High Sens 27.7 D C-Reactive Protein 0.50 Total Protein 8.0 Albumin 4.2 Procalcitonin 0.02 Urine Color Yellow Urine Appearance Clear Urine pH 5.5 Ur Specific Edward 1.020 Urine Protein 30 (1+) H Urine Glucose (UA) Negative Urine Ketones Trace Urine Blood Negative Urine Nitrite Negative Ur Leukocyte Esterase Negative Urine RBC 0-2 Urine WBC 0-5 Ur Squamous Epith Cells 0-2 Urine Bacteria None Seen Hyaline Casts 0-2 Urine Opiates Screen POSITIVE H Ur Buprenorphine Scrn Not Detected Ur Oxycodone Screen Not Detected Urine Methadone Screen Not Detected Urine Fentanyl Screen POSITIVE H Ur Barbiturates Screen Not Detected Ur Phencyclidine Scrn Not Detected Ur Amphetamines Screen Not Detected U Benzodiazepines Scrn Not Detected Urine Cocaine Screen Not Detected U Marijuana (THC) Screen Not Detected Influenza Type A (PCR) NEGATIVE Influenza Type B (PCR) NEGATIVE RSV RNA Qual (PCR) NEGATIVE SARS-CoV-2 RNA (RT-PCR) NEGATIVE 09/29/23 09/29/23 10:39 13:26 WBC RBC Hgb Hct MCV MCH MCHC RDW Plt Count MPV Immature Gran % (Auto) Neut % (Auto) Lymph % (Auto) Cook % (Auto) Eos % (Auto) Baso % (Auto) Lymph # (Auto) Cook # (Auto) Eos # (Auto) Baso # (Auto) Abs Immat Gran (auto) Absolute Neuts (auto) Absolute Nucleated RBC Nucleated RBC % (auto) ESR PT INR VBG pH VBG pCO2 VBG pO2 VBG HCO3 VBG O2 Saturation VBG Base Excess Sodium 138 Potassium 4.7 D Chloride 105 Carbon Dioxide 22 Anion Gap 16 BUN 13 Creatinine 0.91 Estim Creat Clear Calc 62.3 Estimated GFR > 60 Random Glucose 98 Lactic Acid 1.8 Calcium 9.3 Total Bilirubin AST ALT Alkaline Phosphatase Ammonia 25 Troponin I High Sens 310.7 H* D C-Reactive Protein Total Protein Albumin Procalcitonin Urine Color Urine Appearance Urine pH Ur Specific Edward Urine Protein Urine Glucose (UA) Urine Ketones Urine Blood Urine Nitrite Ur Leukocyte Esterase Urine RBC Urine WBC Ur Squamous Epith Cells Urine Bacteria Hyaline Casts Urine Opiates Screen Ur Buprenorphine Scrn Ur Oxycodone Screen Urine Methadone Screen Urine Fentanyl Screen Ur Barbiturates Screen Ur Phencyclidine Scrn Ur Amphetamines Screen U Benzodiazepines Scrn Urine Cocaine Screen U Marijuana (THC) Screen Influenza Type A (PCR) Influenza Type B (PCR) RSV RNA Qual (PCR) SARS-CoV-2 RNA (RT-PCR) Imaging Radiologist's impression: Impressions Head CT 09/29/23 06:30 IMPRESSION: 1. No acute intracranial abnormality. 2. Chronic left temporal, left frontal, and left cerebellar encephalomalacia/old infarcts. 3. Mild to moderate periventricular and central white matter diminished attenuation is nonspecific, but commonly chronic small vessel ischemic changes. 4. Sinus disease. Chest X-Ray 09/29/23 06:35 IMPRESSION: 1. Unchanged no radiographic signs of acute cardiopulmonary process. 2. Unchanged status post median sternotomy. Hip/Pelvis X-Ray 09/29/23 12:26 IMPRESSION: Soft tissue wound lateral to the region of the greater trochanter. Possible osteomyelitis involving the lateral aspect of the greater trochanter. Consider further evaluation with MRI without and with contrast, which is more sensitive. Assessment and Plan (1) Elevated troponin: Status: Acute Plan 68-year-old gentleman with mild troponin elevation in setting of confusion and encephalopathy. He has tested positive for fentanyl and opiates. He is saying he has not been using any drugs. He has background of polysubstance abuse. Known cardiomyopathy with EF 40 45% and previous bypass surgery. It appears he has not been following regularly with any supervisor chemical. He is denying any symptoms currently. Unclear why he has mild elevation of troponins. Recommend checking 1 more set to see if the troponins are flat or not. If elevation please call and discuss with me. Given lack of symptoms and lack of dynamic EKG changes would recommend holding anticoagulation with heparin or Lovenox currently. Thank you for allowing me to participate in the care of your patient. Please feel free to contact me if you have any questions. Procedures Date of Service Date of Service: 09/29/23
[2023-09-29] MEDS: vancomycin HCL 1,500 MG in 0.9 % Sodium Chloride 500 ML 333.33 MG IV (15:52)
--- NOTE | 2023-09-29 16:41 | PHA.PROG ---
Admission Date/Time: September 29, 2023 11:56 Indication: skin Weight in k.5 kg Adjusted body weight in Kg: Empire body weight in Kg: Obesity Dosing Indication % IBW: Serum Creatinine - Last 168 Hours 09/29/23 09/29/23 06:04 13:26 Creatinine 1.01 0.91 Estimated CrCl and GFR - Last 168 Hours 09/29/23 09/29/23 06:04 13:26 Estim Creat Clear Calc 56.1 62.3 Estimated GFR > 60 > 60 Vancomycin Loading Dose: 1500mg x 1 Current Vancomycin Dosing Regimen: 750mg Q12H Vancomycin Monitoring using AUC goal of 400 - 600 range with trough as surrogate marker: 553mg/L Date and Time for next Vancomycin Level to be drawn: 09/29 @1500 Pharmacist Comments on Vancomycin Plan: Predicted trough on 18mg/L;will continue to monitor and adjust accordingly Vancomycin dosing will take advantage of [employer] as a clinical decision support tool that uses Bayesian modeling to calculate individual patient's pharmacokinetic parameters and forecast the patient's drug concentration time course with the target goal AUC 24 range of 400 - 600 mg/L/hr.
[2023-09-29] MEDS: Apixaban 5 MG TABLET PO (20:28)
[2023-09-29] MEDS: cloNIDine HCL 0.1 MG TABLET PO (20:28)
[2023-09-29] MEDS: Docusate Sodium 100 MG CAPSULE PO (20:28)
[2023-09-29] MEDS: Pentoxifylline ER 400 MG TABLET.ER PO (21:23)
[2023-09-30] VITALS (8 sets, daily range): BP systolic 92–143; BP diastolic 42–65; PULSE 62–75; RESP 12–18; TEMP 36.6–37; O2SAT 94–97
[2023-09-30] MEDS: ceFAZolin Sodium/Dextrose,Iso 2 GM/50 ML PIGGYBACK IV ×3 (03:55→20:59)
[2023-09-30] MEDS: vancomycin HCL 750 MG in 0.9 % Sodium Chloride 250 ML 265 MG IV (04:59)
[2023-09-30 05:16] LABS: MANUAL DIFF FLAG NO
[2023-09-30 05:17] LABS: Basophils Absolute Auto 0.1 X10*3/uL (0.0-0.2); Basophils Percent Auto 0.7 % (0-2); Eosinophils Absolute Auto 0.6 X10*3/uL (0.0-0.4); Eosinophils Percent Auto 5.9 % (0-4); Hematocrit 39.6 % (42.0-52.0); Hemoglobin 13.4 g/dl (14.0-18.0); Imm Gran Abs Auto 0.04 X10*3/uL (0.00-0.03); Imm Gran Pct Auto 0.4 % (0.0-0.4); Lymphocytes Absolute Auto 3.1 X10*3/uL (1.2-4.9); Lymphocytes Percent Auto 28.8 % (20-40); Mean Corpuscular HGB Conc 33.8 g/dl (31.0-36.0); Mean Corpuscular Hemoglobin 29.2 pg (27.0-33.0); Mean Corpuscular Volume 86.3 fL (80.0-98.0); Mean Platelet Volume 10.1 fL (9.4-12.4); Monocytes Absolute Auto 1.3 X10*3/uL (0.1-1.2); Monocytes Percent Auto 11.6 % (2-11); Neutrophils Absolute Auto 5.7 x10*3/uL (2.0-8.3); Neutrophils Percent Auto 52.6 % (45-73); Platelet Count 135 X10*3/uL (160-400); Red Blood Count 4.59 X10*6/uL (4.60-5.80); Red Cell Distribution Width 15.2 % (11.0-16.0); White Blood Count 10.8 X10*3/uL (4.8-10.8)
[2023-09-30 05:39] LABS: Anion Gap 14 (12-20); Blood Urea Nitrogen 12 mg/dL (9-16); Calcium 9.1 mg/dL (8.4-10.2); Carbon Dioxide 22 mmol/L (22-29); Chloride 105 mmol/L (96-108); Creatinine Clr Calc Pharmacy 63.7; Estimated Glomerular Filt Rate > 60; Glucose Random 94 mg/dL (60-115); Potassium 3.9 mmol/L (3.3-5.1); Sodium 137 mmol/L (135-145)
--- NOTE | 2023-09-30 07:30 | PC.NURSE ---
patient is resting quietly in bed, respirations equal and unlabored. patient is awake and alert.
--- NOTE | 2023-09-30 09:06 | PC.NURSE ---
EEG at bedside
[2023-09-30] MEDS: Docusate Sodium 100 MG CAPSULE PO ×2 (09:52→20:59)
[2023-09-30] MEDS: Apixaban 5 MG TABLET PO ×2 (09:52→20:59)
[2023-09-30] MEDS: cloNIDine HCL 0.1 MG TABLET PO ×2 (09:52→20:59)
[2023-09-30] MEDS: Metoprolol Succinate ER 25 MG TAB.ER.24H PO (09:52)
--- NOTE | 2023-09-30 10:04 | PM.NEUROCN ---
History of Present Illness Data of Consult Service Date: 09/30/23 Primary Care Provider: Unknown Physician HPI Reason for consult: ?stroke This is a 68-year-old male with h/o paroxysmal AFib, not compliant with Eliquis, CAD s/p CABG, ishcemic cardiomyopathy, PAD s/p AKA, hx prior CVAs (last in July 2022), seizure disorder, HTN, HLD, COPD not on home O2, chronic wound of the R hip, and hx of substance abuse presented to the ED after his found him altered in the middle of the night. Denies any witnessed seizure activity, but reports patient was calling out for his aunt and was disoriented. In ER he was still disoriented, agitated, calling out for people on arrival. However, no sedation or seizure activity noted. No focal neuro deficits on arrival. On my exam, patient remains disoriented to time. temp 99.6. WBC 16.5. Renal function baseline, lytes normal except co2. Lactic acid 1.8. Ammonia 25. Initial trop 27.7, UA unremarkable. UTox positive for fentanyl and opiates. Negative for covid, flu, rsv. CT head negative for acute intracranial abnormality but shows chronic infarcts of left temporal, left frontal, and left cerebellar with encephalomalacia and chronic white matter disease.His improved significantly and is mostly oriented. Review of Systems Review of Systems: General: No fevers, malaise, unintentional weight loss HEENT: No blurred vision, diplopia. No sore throat, nasal congestion, rhinorrhea, sinus pain, ear pain Cardiovascular: No chest pain, palpitations, or leg edema Respiratory: No shortness of breath, wheezing, cough GI: No abdominal pain, nausea, vomiting, diarrhea, constipation, melena, hematochezia : No dysuria, hematuria, increased urinary frequency, decreased urinary output MSK: No myalgia, back pain Neuro: No headaches, weakness, paresthesias Skin: No rashes or lesions Yes all other systems are reviewed and are negative [facility] Past Medical History Medical History Ischemic cardiomyopathy Cerebellar infarction Seizure Above knee amputation of left lower extremity Fall Leukocytosis MDD (major depressive disorder), recurrent episode, moderate Opioid use disorder, moderate, dependence Pneumonitis Pneumonia Atherosclerotic cardiovascular disease History of hemorrhagic cerebrovascular accident (CVA) without residual deficits Subclavian arterial stenosis Atrial flutter Cardiomyopathy Opioid use disorder Seizure disorder Acute combined systolic and diastolic congestive heart failure COPD (chronic obstructive pulmonary disease) Cocaine abuse with intoxication Toxic encephalopathy 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 Hyperlipemia CHF (congestive heart failure) Seizure-like activity Cardiac arrest Atrial flutter Paroxysmal atrial fibrillation PVD (peripheral vascular disease) CAD (coronary artery disease) Heroin use Surgical History Surgical History Hx of AKA (above knee amputation) S/P CABG x 2 Social History Social History Household Members: Spouse Housing: House Do you presently have visiting nurse or other home services: No Unable to assess alcohol history related to: Unable to respond Alcohol intake: current Alcohol intake frequency: does not drink Comment: Pt refused bed alarm, [employer] camera outside patient's room for safety. Patient Tobacco Use Status: Current everyday Tobacco user Tobacco use type: Cigarette Cigarette Packs Per Day: 1.5 Cigarettes Per Day: 30.0 Years Smoked: 25 Smoked in Last 30 Days: Yes e-Cigarette/Vaping Use: Currently Using Second Hand Smoke Exposure: No Use of substances other than those prescribed or required for medical reasons: No Substance Use Type: Heroin Advance Directives: Yes Advance Directives on File: Yes Advance Directives Date on File: 01/12/21 Do you have a plan to hurt others: No Plan Nutrition Risks: No Nutritional Risk service: No Current occupational status: retired Meds Allergies Allergy/AdvReac Type Severity Reaction Status Date / Time No Known Allergies Allergy Verified 09/29/23 05:40 Active Medications: Current Medications Acetaminophen (Acetaminophen 325 Mg Tablet) 650 mg PO Q6H PRN PRN Reason: Pain, Mild (Pain Scale 1-3) Apixaban (Apixaban 5 Mg Tablet) 5 mg PO BID [facility] Last Admin: 09/30/23 09:52 Dose: 5 mg Clonidine HCl (Clonidine Hcl 0.1 Mg Tablet) 0.1 mg PO BID [facility]; Protocol Last Admin: 09/30/23 09:52 Dose: 0.1 mg Docusate Sodium (Docusate Sodium 100 Mg Capsule) 100 mg PO BID [facility] Last Admin: 09/30/23 09:52 Dose: 100 mg Cefazolin Sodium/Dextrose (Ancef) 2 gm in 50 mls @ 100 mls/hr IV Q8H [facility] Last Infusion: 09/30/23 04:25 Dose: Infused Vancomycin HCl 750 mg/ Sodium (Chloride) 265 mls @ 265 mls/hr IV Q12H [facility] Last Infusion: 09/30/23 06:24 Dose: Infused Magnesium Hydroxide (Milk Of Magnesia 30 Ml Oral.Susp) 30 ml PO DAILY PRN PRN Reason: Constipation Melatonin (Melatonin 3 Mg Tablet) 6 mg PO BEDTIME PRN PRN Reason: Insomnia Metoprolol Succinate (Metoprolol Succinate Er 25 Mg Tab.Er.24h) 25 mg PO DAILY [facility]; Protocol Last Admin: 09/30/23 09:52 Dose: 25 mg Nicotine (Nicotine 21 Mg Patch.Td24) 21 mg TRANSDERMA DAILY [facility] Last Admin: 09/30/23 10:00 Dose: Not Given Ondansetron HCl (Ondansetron Hcl 4 Mg/2 Ml Vial) 4 mg IVPUSH Q8H PRN PRN Reason: Nausea and Vomiting Oxycodone HCl (Oxycodone Hcl Immed Release 5 Mg Tablet) 10 mg PO Q6H PRN PRN Reason: severe pain Pentoxifylline (Pentoxifylline Er 400 Mg Tablet.Er) 400 mg PO BID [facility] Last Admin: 09/29/23 21:23 Dose: 400 mg Pharmacy Consult (Consult Rx Vancomycin Dosing) 1 each MISCELLANE DAILY PRN PRN Reason: Consult order Sodium Chloride (0.9 % Sodium Chloride Flush 3 Ml Syringe) 3 ml IVFLUSH QSHIFT [facility] Last Admin: 09/30/23 07:22 Dose: Not Given Home Medications ?Medication ?Instructions ?Recorded ?Confirmed ?Last Taken ?Type apixaban 5 mg tablet (Eliquis) 5 mg PO BID 04/27/23 09/29/23 2 Weeks Ago History ~04/13/23 docusate sodium 100 mg capsule 100 mg PO BID 04/27/23 09/29/23 2 Weeks Ago History ~04/13/23 amiodarone 200 mg tablet 400 mg PO BID 09/29/23 Unknown History clonidine HCl 0.1 mg tablet 0.1 mg PO BID 09/29/23 09/29/23 Unknown History metoprolol succinate 25 mg 25 mg PO DAILY 09/29/23 09/29/23 Unknown History tablet,extended release 24 hr oxycodone 5 mg tablet 10 mg PO Q6H PRN severe pain 09/29/23 09/29/23 Unknown History pentoxifylline 400 mg 400 mg PO BID 09/29/23 09/29/23 Unknown History tablet,extended release Physical Exam Vital Signs: Vital Signs: Last Vital Signs Temp 97.9 F 09/30/23 08:00 Pulse 75 09/30/23 08:00 Resp 15 09/30/23 08:00 BP 92/42 L 09/30/23 08:00 Pulse Ox 95 09/30/23 08:00 O2 Del Method Room Air 09/30/23 08:00 BMI result Body Mass Index 20.5 Neuro: Other: He is alert, pleasant and cooperative with fluent speech and no language problems. He is oriented to person, place and year but thought it was August and couldn't tell me the day or date. He follows commands. Cranial nerves II through XII are normal. Muscle tone and strength are normal in all 4 extremities. He has an above-knee amputation on the left. Results Labs 09/30/23 04:33 09/30/23 04:33 Labs: Short CBC 09/30/23 Range/Units 04:33 WBC 10.8 (4.8-10.8) X10*3/uL Hgb 13.4 L (14.0-18.0) g/dl Hct 39.6 L (42.0-52.0) % Plt Count 135 L (160-400) X10*3/uL BMP 09/29/23 09/30/23 13:26 04:33 Sodium 138 137 Potassium 4.7 D 3.9 Chloride 105 105 Carbon Dioxide 22 22 BUN 13 12 Creatinine 0.91 0.89 Calcium 9.3 9.1 Urine 09/29/23 Range/Units 10:31 Urine Color Yellow Urine Appearance Clear Urine pH 5.5 (5.0-9.0) Ur Specific [place] 1.020 (1.005-1.025) Urine Protein 30 (1+) H (Neg-Trace) mg/dL Urine Glucose (UA) Negative (Negative) mg/dL Assessment and Plan (1) Acute metabolic encephalopathy: Status: Acute He appears to have had an acute change in his mental status that was transient. It is unclear if this was related to his substance abuse. He does test positive for narcotics and fentanyl. No witnessed seizure. His EEG shows diffuse 6 Hz slowing with no seizure activity. CAT scan shows no infarct, and he has a nonfocal exam. Recommendation also for 24 hours. Check metabolic abnormalities. Continue his prophylactic seizure medications. Plan 68-year-old gentleman with mild troponin elevation in setting of confusion and encephalopathy. He has tested positive for fentanyl and opiates. He is saying he has not been using any drugs. He has background of polysubstance abuse. Known cardiomyopathy with EF 40 45% and previous bypass surgery. It appears he has not been following regularly with any quality assurance project manager. He is denying any symptoms currently. Unclear why he has mild elevation of troponins. Recommend checking 1 more set to see if the troponins are flat or not. If elevation please call and discuss with me. Given lack of symptoms and lack of dynamic EKG changes would recommend holding anticoagulation with heparin or Lovenox currently. Thank you for allowing me to participate in the care of your patient. Please feel free to contact me if you have any questions. Procedures Date of Service Date of Service: 09/30/23
[2023-09-30] MEDS: Pentoxifylline ER 400 MG TABLET.ER PO ×2 (10:45→21:10)
--- NOTE | 2023-09-30 13:19 | PC.NURSE ---
patient sitting up eating lunch, respirations equal and unlabored. skin dry and intact. patient is awake and alert.
--- NOTE | 2023-09-30 13:26 | PC.NURSE ---
patient going to MRI
--- NOTE | 2023-09-30 13:56 | MHC.CM.PN ---
IMM sent to HCP, pt lives with his , he uses a W/C, he had home health services, but the nurse stopped coming, according to pt.'s brother, unknown as to why. Pt will transport home via ambulance. PCP is Dr. Jackson. HCP confirmed: Ashli. CM will follow and assist with DC planning.
--- NOTE | 2023-09-30 14:06 | HO.WOUND ---
Wound Consult: Initial - Chart review 68yr old male admitted to [facility] on?09/29/23 11:56 See progress notes and H&P for detailed history. Patient consult received unable to see patient due to procedures and off unit. Chart review revealed and photo reviewed topical recommendation made below based on chart information. This patient is known to this sign writer hand from previous admissions. Right Troachanter / Hip Etiology: Previously documented stage 4 pressure injury POA Wound Bed: from photo review appears to be marbled with yellow slough and red tissue Drainage / Odor: see photo Edges: ? epibole unattached Valarie wound: erythema noted Goals of Treatment: ?Off Load pressure and Alginate for moisture management Recommend to preventively apply foam dressings to the following areas given he has known previous injuries to these areas. Will assess in person when able. Left Troachanter / Hip previously documented Resurfacing Stage 3 pressure injury POA Right Ischium / Buttocks previously documented Stage 4 Pressure Injury POA - Previously documented stage 3 pressure injury with out pt WCC Coccyx / sacrum previously documented - healed previous full thickness tissue loss noted Recommendations: 1. Turn and Reposition every 2 hours and as needed for patient comfort. Use pillow or wedges to aid in supporting off loaded position. 2. Off Load all bony prominences with use of pillows and heel boots if needed.? Apply Preventative foams where needed. ? 3. Monitor for incontinence and moisture control, use barrier creams when needed for prevention and treatment. 4. Provide adequate and supplemental nutrition. - Nutrition following and orders in place. 5. Continue low air loss mattress. 6. Right (Hip) Trochanter and Right Ischium - Cleanse and irrigate with NS, Pat dry. Apply barrier wipe to periwound. Cover and lightly pack wound beds with Alginate - be sure to leave a wick for easy removal. cover with foam dressing. Change Daily. Off Load Pressure. 7. Left (Hip) Trochanter and Sacrum - Cleanse with PH balanced wipes Pat dry. Cover with foam dressing peel back and assess Q shift and change every 3 days and PRN for soiling. Re-consult wound care Nurse for wound deterioration or wound changes.
--- NOTE | 2023-09-30 14:24 | P.PNIM_ITS ---
Subjective Subjective Date of Service: 09/30/23 Interval History: feels back to normal Physical Exam 2 Vital Signs: Vital Signs: Last Vital Signs Temp 98.1 F 09/30/23 11:06 Pulse 68 09/30/23 11:06 Resp 15 09/30/23 11:06 BP 103/53 L 09/30/23 11:06 Pulse Ox 96 09/30/23 11:06 O2 Del Method Room Air 09/30/23 11:06 BMI result Body Mass Index 20.5 General: AO X 3, no acute distress Resp: CTA bilateral, no accessory muscles used CVS: S1,S2,RRR GI: soft, non tender, non distended Neuro: motor grossly intact, alert Psych: appropriate affect, appropriate insight left AKA Objective Data Active Medications Acetaminophen (Acetaminophen 325 Mg Tablet) 650 mg PO Q6H PRN PRN Reason: Pain, Mild (Pain Scale 1-3) Apixaban (Apixaban 5 Mg Tablet) 5 mg PO BID [facility] Last Admin: 09/30/23 09:52 Dose: 5 mg Documented By: AZRA Clonidine HCl (Clonidine Hcl 0.1 Mg Tablet) 0.1 mg PO BID [facility]; Protocol Last Admin: 09/30/23 09:52 Dose: 0.1 mg Documented By: AZRA Docusate Sodium (Docusate Sodium 100 Mg Capsule) 100 mg PO BID [facility] Last Admin: 09/30/23 09:52 Dose: 100 mg Documented By: AZRA Cefazolin Sodium/Dextrose (Ancef) 2 gm in 50 mls @ 100 mls/hr IV Q8H [facility] Last Admin: 09/30/23 12:16 Dose: 100 mls/hr Documented By: AZRA Vancomycin HCl 750 mg/ Sodium (Chloride) 265 mls @ 265 mls/hr IV Q12H [facility] Last Infusion: 09/30/23 06:24 Dose: Infused Documented By: LOVE Magnesium Hydroxide (Milk Of Magnesia 30 Ml Oral.Susp) 30 ml PO DAILY PRN PRN Reason: Constipation Melatonin (Melatonin 3 Mg Tablet) 6 mg PO BEDTIME PRN PRN Reason: Insomnia Metoprolol Succinate (Metoprolol Succinate Er 25 Mg Tab.Er.24h) 25 mg PO DAILY [facility]; Protocol Last Admin: 09/30/23 09:52 Dose: 25 mg Documented By: AZRA Nicotine (Nicotine 21 Mg Patch.Td24) 21 mg TRANSDERMA DAILY [facility] Last Admin: 09/30/23 10:00 Dose: Not Given Documented By: AZRA Non-Admin Reason: going for mri Ondansetron HCl (Ondansetron Hcl 4 Mg/2 Ml Vial) 4 mg IVPUSH Q8H PRN PRN Reason: Nausea and Vomiting Oxycodone HCl (Oxycodone Hcl Immed Release 5 Mg Tablet) 10 mg PO Q6H PRN PRN Reason: severe pain Pentoxifylline (Pentoxifylline Er 400 Mg Tablet.Er) 400 mg PO BID [facility] Last Admin: 09/30/23 10:45 Dose: 400 mg Documented By: AZRA Pharmacy Consult (Consult Rx Vancomycin Dosing) 1 each MISCELLANE DAILY PRN PRN Reason: Consult order Sodium Chloride (0.9 % Sodium Chloride Flush 3 Ml Syringe) 3 ml IVFLUSH QSHIFT [facility] Last Admin: 09/30/23 07:22 Dose: Not Given Documented By: AZRA Non-Admin Reason: See Note Labs 09/30/23 04:33 09/30/23 04:33 Labs: Laboratory Results - last 24 hr 09/29/23 09/30/23 16:09 04:33 MCV 86.3 MCH 29.2 MCHC 33.8 RDW 15.2 Plt Count 135 L MPV 10.1 Immature Gran % (Auto) 0.4 Neut % (Auto) 52.6 Lymph % (Auto) 28.8 [place] % (Auto) 11.6 H Eos % (Auto) 5.9 H Baso % (Auto) 0.7 Lymph # (Auto) 3.1 [place] # (Auto) 1.3 H Eos # (Auto) 0.6 H Baso # (Auto) 0.1 Abs Immat Gran (auto) 0.04 H Absolute Neuts (auto) 5.7 Absolute Nucleated RBC 0.000 Nucleated RBC % (auto) 0.0 Anion Gap 14 Estim Creat Clear Calc 63.7 Estimated GFR > 60 Random Glucose 94 Calcium 9.1 Troponin I High Sens 261.0 H* Microbiology Microbiology Results: Microbiology 09/29/23 10:42 Blood Culture - Preliminary Blood - Venous No growth after 24 hours. 09/29/23 10:39 Blood Culture - Preliminary Blood - Venous No growth after 24 hours. Assessment and Plan (1) Acute metabolic encephalopathy: Status: Acute Plan 68M PMH patient has atrial fibrillation noncompliant with Eliquis, coronary disease status post CABG, peripheral artery disease status post left AKA, history of prior CVAs, epilepsy, hypertension, hyperlipidemia, COPD, chronic wound of the right hip, polysubstance dependence presented with altered mental status Acute toxic metabolic encephalopathy Differential includes due to opiates versus infection Now appears back to baseline Neuro appreciated Follow-up MRI Stage III pressure ulcer of the right hip with possible cellulitis and deeper infection Continue vancomycin and cefazolin, follow-up infectious disease Elevated troponin Unlikely ACS Cardiology appreciated Paroxysmal atrial fibrillation Eliquis, History of CVA, cad, pvd Eliquis, statin, pentoxifylline Toprol Epilepsy Does not appear to be on meds DVT prophylaxis with Eliquis Full code reason for continued hospitalization: Follow up Infectious Disease eval, MRI Quality Stroke Does the patient have a stroke diagnosis?: No VTE Prior VTE?: No VTE Risk Level:: Medical - moderate - high VTE Device Contraindication: Treatment Not Indicated VTE Drug Contraindication: N/A - Med Ordered
[2023-09-30 15:34] LABS: Vancomycin Random 15.9 mcg/mL (15-20)
--- NOTE | 2023-09-30 17:30 | PC.NURSE ---
this rn called pharmacy regarding need for vanco to medicate pt according to mar. awaiting dose to be brought down by pharmacy
--- NOTE | 2023-09-30 18:03 | PC.NURSE ---
per wound care nurse recommendation this rn performed wound care on R hip wound. foam dressing place. to be changed qshift per wound care recommendations
[2023-09-30] MEDS: vancomycin HCL 500 MG in 0.9 % Sodium Chloride 100 ML 110 MG IV (18:14)
[2023-09-30] MEDS: 0.9 % Sodium Chloride Flush 3 ML SYRINGE IVFLUSH (18:17)
--- NOTE | 2023-09-30 18:24 | MHC.EDTECH ---
Patient rang for urinal, he was unable to use urinal so he urinated in an emesis bag, bag removed. Patient wet the bed. I did a full pack changer and wash of the bed and the patient, including combing his hair. I did notice his right hip open wound, Maranda Toribio was notified and assisted with applying a foam dressing to his right hip. I did but a barrier cream on his buttocks, groin area and his feet. Patient tolerated cleaning well and was able to assist in rolling himself during the bed change.
--- NOTE | 2023-09-30 23:57 | MHC.EDTECH ---
Patient missed urinal when urinating. Bed was soiled. Bed was cleaned and changed. Patient was cleaned up as well. Barrier cream applied to buttocks.
[2023-10-01] VITALS (7 sets, daily range): BP systolic 107–165; BP diastolic 63–98; PULSE 60–75; RESP 16–20; TEMP 36.1–36.8; O2SAT 93–98; BMI 17.3
[2023-10-01] MEDS: 0.9 % Sodium Chloride Flush 3 ML SYRINGE IVFLUSH ×2 (00:30→18:55)
[2023-10-01] MEDS: oxyCODONE HCl Immed Release 5 MG TABLET 10 MG PO (04:27)
[2023-10-01] MEDS: ceFAZolin Sodium/Dextrose,Iso 2 GM/50 ML PIGGYBACK IV (05:58)
[2023-10-01] MEDS: vancomycin HCL 500 MG in 0.9 % Sodium Chloride 100 ML 110 MG IV (06:43)
--- NOTE | 2023-10-01 08:13 | P.CDIM_ITS ---
PROVIDER RESPONSE TEXT: To clarify, the appropriate diagnosis supported by the clinical indicators: Underweight QUERY TEXT: PHYSICIAN'S DOCUMENTATION REQUEST Date of Query: 10/01/2023 08:02 AM EDT Patient Name: Phan Boateng Admit Date: 09/29/2023 Dear Fausto March, A review of the medical record indicates additional documentation may be needed. Please review below and update the documentation accordingly. Clinical Indicators: Height: 5ft 6in Weight: 48.5kg BMI: 17.3 Other Clinical Notes Supporting Significance of the BMI: Nursing notes Height and Weight: Underweight If possible, please provide an associated diagnosis related to the abnormal BMI, such as: Underweight Weight loss Cachexia Anorexia Other (explain) Clinically unable to determine (explain) Thank you, Iesha Puckett, CCS, CDIS Use of terms such as suspected, likely, concern for, or probable (associated with a specific diagnosi s that is being evaluated, monitored, or treated as if it exists) are acceptable and can be coded in the inpatient se tting, when documented at the time of discharge. Please use your independent medical judgment in providing your response. THIS QUERY IS PART OF THE PERMANENT MEDICAL RECORD
[2023-10-01 10:11] LABS: Creatinine Clr Calc Pharmacy 57.6; Estimated Glomerular Filt Rate > 60
--- NOTE | 2023-10-01 10:32 | HO.PM.IMPN ---
Subjective Subjective Date of Service: 10/01/23 Interval History: feels back to normal Physical Exam Vital Signs: Vital Signs: Last Vital Signs Temp 97.7 F 10/01/23 07:54 Pulse 66 10/01/23 07:54 Resp 18 10/01/23 07:54 BP 165/83 H 10/01/23 07:54 Pulse Ox 96 10/01/23 07:54 O2 Del Method Room Air 10/01/23 07:54 BMI result Body Mass Index 17.3 General: AO X 3, no acute distress Resp: CTA bilateral, no accessory muscles used CVS: S1,S2,RRR GI: soft, non tender, non distended Neuro: motor grossly intact, alert Psych: appropriate affect, appropriate insight left AKA Objective Data Active Medications Acetaminophen (Acetaminophen 325 Mg Tablet) 650 mg PO Q6H PRN PRN Reason: Pain, Mild (Pain Scale 1-3) Apixaban (Apixaban 5 Mg Tablet) 5 mg PO BID [facility] Last Admin: 09/30/23 20:59 Dose: 5 mg Documented By: ELVIN Clonidine HCl (Clonidine Hcl 0.1 Mg Tablet) 0.1 mg PO BID [facility]; Protocol Last Admin: 09/30/23 20:59 Dose: 0.1 mg Documented By: ELVIN Docusate Sodium (Docusate Sodium 100 Mg Capsule) 100 mg PO BID [facility] Last Admin: 09/30/23 20:59 Dose: 100 mg Documented By: ELVIN Cefazolin Sodium/Dextrose (Ancef) 2 gm in 50 mls @ 100 mls/hr IV Q8H [facility] Last Infusion: 10/01/23 06:30 Dose: Infused Documented By: VIDHI Vancomycin HCl 500 mg/ Sodium (Chloride) 110 mls @ 110 mls/hr IV Q12H [facility] Last Admin: 10/01/23 06:43 Dose: 110 mls/hr Documented By: VIDHI Magnesium Hydroxide (Milk Of Magnesia 30 Ml Oral.Susp) 30 ml PO DAILY PRN PRN Reason: Constipation Melatonin (Melatonin 3 Mg Tablet) 6 mg PO BEDTIME PRN PRN Reason: Insomnia Metoprolol Succinate (Metoprolol Succinate Er 25 Mg Tab.Er.24h) 25 mg PO DAILY [facility]; Protocol Last Admin: 09/30/23 09:52 Dose: 25 mg Documented By: AZRA Nicotine (Nicotine 21 Mg Patch.Td24) 21 mg TRANSDERMA DAILY [facility] Last Admin: 09/30/23 10:00 Dose: Not Given Documented By: AZRA Non-Admin Reason: going for mri Ondansetron HCl (Ondansetron Hcl 4 Mg/2 Ml Vial) 4 mg IVPUSH Q8H PRN PRN Reason: Nausea and Vomiting Oxycodone HCl (Oxycodone Hcl Immed Release 5 Mg Tablet) 10 mg PO Q6H PRN PRN Reason: severe pain Last Admin: 10/01/23 04:27 Dose: 10 mg Documented By: VIDHI Pentoxifylline (Pentoxifylline Er 400 Mg Tablet.Er) 400 mg PO BID [facility] Last Admin: 09/30/23 21:10 Dose: 400 mg Documented By: OSBALDO Pharmacy Consult (Consult Rx Vancomycin Dosing) 1 each MISCELLANE DAILY PRN PRN Reason: Consult order Sodium Chloride (0.9 % Sodium Chloride Flush 3 Ml Syringe) 3 ml IVFLUSH QSHIFT [facility] Last Admin: 10/01/23 00:30 Dose: 3 ml Documented By: VIDHI Labs 09/30/23 04:33 10/01/23 08:25 Labs: Laboratory Results - last 24 hr 09/30/23 10/01/23 15:07 08:25 Hold Purple Top SEE NOTE Estim Creat Clear Calc 57.6 Estimated GFR > 60 Random Vancomycin 15.9 Microbiology Microbiology Results: Microbiology 09/29/23 10:42 Blood Culture - Preliminary Blood - Venous No growth after 24 hours. 09/29/23 10:39 Blood Culture - Preliminary Blood - Venous No growth after 24 hours. Assessment and Plan (1) Acute metabolic encephalopathy: Status: Acute Plan 68M PMH patient has atrial fibrillation noncompliant with Eliquis, coronary disease status post CABG, peripheral artery disease status post left AKA, history of prior CVAs, epilepsy, hypertension, hyperlipidemia, COPD, chronic wound of the right hip, polysubstance dependence presented with altered mental status Acute toxic metabolic encephalopathy Differential includes due to opiates versus infection Now appears back to baseline Neuro appreciated mri chronically abnormal but no acute changes Stage III pressure ulcer of the right hip with possible cellulitis and deeper infection Continue vancomycin and cefazolin, follow-up infectious disease Elevated troponin Unlikely ACS Cardiology appreciated Paroxysmal atrial fibrillation Eliquis History of CVA, cad, pvd Eliquis, statin, pentoxifylline Toprol Epilepsy Does not appear to be on meds DVT prophylaxis with Eliquis Full code reason for continued hospitalization: Follow up Infectious Disease eval Quality Stroke Does the patient have a stroke diagnosis?: No VTE Prior VTE?: No VTE Risk Level:: Medical - moderate - high VTE Device Contraindication: Treatment Not Indicated VTE Drug Contraindication: N/A - Med Ordered
--- NOTE | 2023-10-01 11:05 | MHC.RECOVRN ---
Met with pt in 459 after consult placed to Addiction Medicine for substance use. Pt had presented to the ED from home for erratic behavior per . Upon evaluation, pt admitted for acute metabolic encephalopathy. Pt now more clear and able to meet with t/w. Pt sitting in bed, awake, alert, easily engages in conversation. Pt reports heroin/fentanyl use, 1-2 bags per week, IN. Pt reports he had been using 1/2 bag daily but has decreased use over time. Pt reports he began using opioids at age 17. Denies hx overdoses. Pt not experiencing withdrawal. Pt does report hx Suboxone, does not feel MOUD is needed at this time. Educated pt on risk for overdose, especially in regard to low tolerance. Pt verbalizes understanding. Pt declines resources, denies questions or concerns for t/w. Discussed with Lynette Tristan APRN.
[2023-10-01] MEDS: Docusate Sodium 100 MG CAPSULE PO (11:43)
[2023-10-01] MEDS: Pentoxifylline ER 400 MG TABLET.ER PO (11:43)
[2023-10-01] MEDS: Apixaban 5 MG TABLET PO (11:43)
[2023-10-01] MEDS: cloNIDine HCL 0.1 MG TABLET PO (11:43)
[2023-10-01] MEDS: Metoprolol Succinate ER 25 MG TAB.ER.24H PO (11:44)
[2023-10-01] MEDS: Nicotine 21 MG PATCH.TD24 TRANSDERMA (11:44)
--- NOTE | 2023-10-01 13:47 | MHC.CLN ---
PT IS MODERATELY MALNOURISHED WITH PRESSURE INJURY PT WITH MILDLY DEPLETED SUBCUTANEOUS FAT AND MUSCLE MASS WITH BMI 17.3 DIET RX: CARDIAC-APPROPRIATE RECOMMEND ADDING ENSURE BID TO PROMOTE WOUND HEALING SUPPLEMENT PROVIDES 700KCALS, 40G PROTEIN MONITOR PO INTAKE AND ENCOURAGE SUPPLEMENT SEE ALSO FULL CLINCAL NUTRITION ASSESSMENT
--- NOTE | 2023-10-01 13:49 | MHC.CM.PN ---
EMR reviewed and per MD rounds, pt is not medically cleared for discharge due to pending ID consult.
[2023-10-01] MEDS: vancomycin HCL 750 MG in 0.9 % Sodium Chloride 250 ML 265 MG IV (19:01)
[2023-10-02] VITALS (8 sets, daily range): BP systolic 99–147; BP diastolic 59–75; PULSE 51–150; RESP 16–19; TEMP 36.2–37.1; O2SAT 95–97
[2023-10-02] MEDS: oxyCODONE HCl Immed Release 5 MG TABLET 10 MG PO (00:25)
[2023-10-02] MEDS: Melatonin 3 MG TABLET 6 MG PO (00:25)
[2023-10-02] MEDS: cloNIDine HCL 0.1 MG TABLET PO ×2 (00:26→08:02)
[2023-10-02] MEDS: Pentoxifylline ER 400 MG TABLET.ER PO ×3 (00:26→20:06)
[2023-10-02] MEDS: Apixaban 5 MG TABLET PO ×3 (00:27→20:07)
[2023-10-02] MEDS: Docusate Sodium 100 MG CAPSULE PO ×3 (00:27→20:15)
[2023-10-02] MEDS: ceFAZolin Sodium/Dextrose,Iso 2 GM/50 ML PIGGYBACK IV ×4 (00:28→20:09)
[2023-10-02] MEDS: 0.9 % Sodium Chloride Flush 3 ML SYRINGE IVFLUSH ×3 (00:30→17:37)
[2023-10-02] MEDS: vancomycin HCL 750 MG in 0.9 % Sodium Chloride 250 ML 265 MG IV ×2 (06:28→17:37)
[2023-10-02 08:24] LABS: Creatinine Clr Calc Pharmacy 56.9; Estimated Glomerular Filt Rate > 60
--- NOTE | 2023-10-02 10:09 | P.PNIM_ITS ---
Subjective Subjective Date of Service: 10/02/23 Interval History: feels back to normal Physical Exam 2 Vital Signs: Vital Signs: Last Vital Signs Temp 97.3 F 10/02/23 07:38 Pulse 60 10/02/23 07:38 Resp 18 10/02/23 07:38 BP 114/74 10/02/23 08:02 Pulse Ox 95 10/02/23 07:38 O2 Del Method Room Air 10/02/23 07:38 BMI result Body Mass Index 17.3 General: AO X 3, no acute distress Resp: CTA bilateral, no accessory muscles used CVS: S1,S2,RRR GI: soft, non tender, non distended Neuro: motor grossly intact, alert Psych: appropriate affect, appropriate insight left AKA Objective Data Active Medications Acetaminophen (Acetaminophen 325 Mg Tablet) 650 mg PO Q6H PRN PRN Reason: Pain, Mild (Pain Scale 1-3) Apixaban (Apixaban 5 Mg Tablet) 5 mg PO BID [facility] Last Admin: 10/02/23 08:01 Dose: 5 mg Documented By: KHURRAM Clonidine HCl (Clonidine Hcl 0.1 Mg Tablet) 0.1 mg PO BID [facility]; Protocol Last Admin: 10/02/23 08:02 Dose: 0.1 mg Documented By: KHURRAM Docusate Sodium (Docusate Sodium 100 Mg Capsule) 100 mg PO BID [facility] Last Admin: 10/02/23 08:01 Dose: 100 mg Documented By: KHURRAM Cefazolin Sodium/Dextrose (Ancef) 2 gm in 50 mls @ 100 mls/hr IV Q8H [facility] Last Infusion: 10/02/23 06:22 Dose: Infused Documented By: MERLY Vancomycin HCl 750 mg/ Sodium (Chloride) 265 mls @ 265 mls/hr IV Q12H [facility] Last Infusion: 10/02/23 07:28 Dose: Infused Documented By: ANDRÉS Magnesium Hydroxide (Milk Of Magnesia 30 Ml Oral.Susp) 30 ml PO DAILY PRN PRN Reason: Constipation Melatonin (Melatonin 3 Mg Tablet) 6 mg PO BEDTIME PRN PRN Reason: Insomnia Last Admin: 10/02/23 00:25 Dose: 6 mg Documented By: MERLY Metoprolol Succinate (Metoprolol Succinate Er 25 Mg Tab.Er.24h) 25 mg PO DAILY [facility]; Protocol Last Admin: 10/02/23 08:07 Dose: Not Given Documented By: KHURRAM Non-Admin Reason: HR <60 Nicotine (Nicotine 21 Mg Patch.Td24) 21 mg TRANSDERMA DAILY [facility] Last Admin: 10/02/23 08:08 Dose: Not Given Documented By: KHURRAM Non-Admin Reason: Patient Refused Ondansetron HCl (Ondansetron Hcl 4 Mg/2 Ml Vial) 4 mg IVPUSH Q8H PRN PRN Reason: Nausea and Vomiting Oxycodone HCl (Oxycodone Hcl Immed Release 5 Mg Tablet) 10 mg PO Q6H PRN PRN Reason: severe pain Last Admin: 10/02/23 00:25 Dose: 10 mg Documented By: MERLY Pentoxifylline (Pentoxifylline Er 400 Mg Tablet.Er) 400 mg PO BID [facility] Last Admin: 10/02/23 08:01 Dose: 400 mg Documented By: KHURRAM Pharmacy Consult (Consult Rx Vancomycin Dosing) 1 each MISCELLANE DAILY PRN PRN Reason: Consult order Sodium Chloride (0.9 % Sodium Chloride Flush 3 Ml Syringe) 3 ml IVFLUSH QSHIFT [facility] Last Admin: 10/02/23 08:05 Dose: 3 ml Documented By: KHURRAM Labs 09/30/23 04:33 10/02/23 07:08 Labs: Laboratory Results - last 24 hr 10/01/23 10/01/23 10/02/23 08:25 15:16 07:08 Hold Purple Top SEE NOTE Estim Creat Clear Calc 57.6 56.9 Estimated GFR > 60 > 60 Random Vancomycin 13.0 L Microbiology Microbiology Results: Microbiology 09/29/23 10:42 Blood Culture - Preliminary Blood - Venous No growth after 48 hours. 09/29/23 10:39 Blood Culture - Preliminary Blood - Venous No growth after 48 hours. Assessment and Plan (1) Acute metabolic encephalopathy: Status: Acute Plan 68M PMH patient has atrial fibrillation noncompliant with Eliquis, coronary disease status post CABG, peripheral artery disease status post left AKA, history of prior CVAs, epilepsy, hypertension, hyperlipidemia, COPD, chronic wound of the right hip, polysubstance dependence presented with altered mental status Acute toxic metabolic encephalopathy Differential includes due to opiates versus infection Now appears back to baseline Neuro appreciated mri chronically abnormal but no acute changes Stage III pressure ulcer of the right hip with possible cellulitis and deeper infection Continue vancomycin and cefazolin, follow-up infectious disease Elevated troponin Unlikely ACS Cardiology appreciated Paroxysmal atrial fibrillation Eliquis History of CVA, cad, pvd Eliquis, statin, pentoxifylline Toprol Epilepsy Does not appear to be on meds DVT prophylaxis with Eliquis Full code reason for continued hospitalization: ID eval pending Quality Stroke Does the patient have a stroke diagnosis?: No VTE Prior VTE?: No VTE Risk Level:: Medical - moderate - high VTE Device Contraindication: Treatment Not Indicated VTE Drug Contraindication: N/A - Med Ordered
[2023-10-02] MEDS: iohexoL 350 MG/ML 100 ML INFUS..BTL IV (13:37)
--- NOTE | 2023-10-02 15:41 | HO.WOUND ---
Wound Consult: Initial / Follow up 68yr old male admitted [place] [facility] [place]09/29/23 11:56 See progress notes and H&P for detailed history. Patient consult received for right hip wound POA. This patient is known to this remote mortgage underwriter from previous admissions. Patient agreeable to wound assessment and photo documentation. Right Troachanter / Hip Etiology: Previously documented stage 4 pressure injury POA - Resurfacing Wound Bed: red pink moist tissue with marbled yellow slough Drainage / Odor: tirado yellow small amount no odor noted Edges: ? epibole unattached and hypopigmented tissue Valarie wound: intact - no induration no fluctuance and no warmth noted Goals of Treatment: ?Off Load pressure and Alginate for moisture management Recommend to preventively apply foam dressings to the following areas given he has known previous injuries to these areas. Left Troachanter / Hip previously documented Resurfacing Stage 3 pressure injury POA - areas of nonblanchable redness noted - tissue remains intact difficult to assess if these are just pigmentation changes or if these are pressure s/s will monitor and place topical recommendations to off load pressure and protect from friction Right Ischium / Buttocks previously documented Stage 4 Pressure Injury POA - Previously documented stage 3 pressure injury with out pt C - resurfacing - stable dry scab in place - treat with foam dressing and durafiber to protect and treat Coccyx / sacrum previously documented - healed previous full thickness tissue loss noted - no new injury at this time, foam applied to aid in off loading and t protect from friction No new topical recommendations needed at this time. Recommendations: 1. Turn and Reposition every 2 hours and as needed for patient comfort. Use pillow or wedges to aid in supporting off loaded position. 2. Off Load all bony prominences with use of pillows and heel boots if needed.? Apply Preventative foams where needed. ? 3. Monitor for incontinence and moisture control, use barrier creams when needed for prevention and treatment. 4. Provide adequate and supplemental nutrition. - Nutrition following and orders in place. 5. Continue low air loss mattress. 6. Right (Hip) Trochanter and Right Ischium - Cleanse and irrigate with NS, Pat dry. Apply barrier wipe to periwound. Cover and lightly pack wound beds with Alginate - be sure to leave a wick for easy removal. cover with foam dressing. Change Daily. Off Load Pressure. 7. Left (Hip) Trochanter and Sacrum - Cleanse with PH balanced wipes Pat dry. Cover with foam dressing peel back and assess Q shift and change every 3 days and PRN for soiling. Re-consult wound care Nurse for wound deterioration or wound changes.
[2023-10-02 17:00] LABS: Vancomycin Random 17.2 mcg/mL (15-20)
[2023-10-02] MEDS: ondansetron HCL 4 MG/2 ML VIAL IVPUSH (21:25)
--- NOTE | 2023-10-02 23:20 | P.CNID_ITS ---
History of Present Illness Data of Consult Service Date: 10/01/23 Requesting physician: Fausto March Primary Care Provider: Tony Rhodes MD HPI Reason for consult: confusion,right hip ulcer He presents to hospital with confusion as well as noticed to have right hip pressure ulcers. He denies fever or chills. He has possible OM greater trochanter. Review of Systems 2 Review of Systems: Yes all other systems are reviewed and are negative PMFSH Past Medical History Medical History Ischemic cardiomyopathy Cerebellar infarction Seizure Above knee amputation of left lower extremity Fall Leukocytosis MDD (major depressive disorder), recurrent episode, moderate Opioid use disorder, moderate, dependence Pneumonitis Pneumonia Atherosclerotic cardiovascular disease History of hemorrhagic cerebrovascular accident (CVA) without residual deficits Subclavian arterial stenosis Atrial flutter Cardiomyopathy Opioid use disorder Seizure disorder Acute combined systolic and diastolic congestive heart failure COPD (chronic obstructive pulmonary disease) Cocaine abuse with intoxication Toxic encephalopathy 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 Hyperlipemia CHF (congestive heart failure) Seizure-like activity Cardiac arrest Atrial flutter Paroxysmal atrial fibrillation PVD (peripheral vascular disease) CAD (coronary artery disease) Heroin use Family History Family history: reviewed and not pertinent Surgical History Surgical History Hx of AKA (above knee amputation) S/P CABG x 2 Social History Social History Household Members: Spouse Household Members Other:: Puma Kirkpatrickeliana Housing: House Do you presently have visiting nurse or other home services: No Unable to assess alcohol history related to: Unable to respond Alcohol intake: current Alcohol intake frequency: does not drink Comment: Pt refused bed alarm, [employer] camera outside patient's room for safety. Patient Tobacco Use Status: Current everyday Tobacco user Tobacco use type: Cigarette Cigarette Packs Per Day: 1.5 Cigarettes Per Day: 15 Years Smoked: 51 e-Cigarette/Vaping Use: Currently Using Second Hand Smoke Exposure: Yes Substance Use Type: Crack/Cocaine, Marijuana, Opiates and Painkillers Advance Directives Date on File: 01/12/21 service: No Current occupational status: retired Meds Allergies Allergy/AdvReac Type Severity Reaction Status Date / Time No Known Allergies Allergy Verified 09/29/23 05:40 Active Medications: Current Medications Acetaminophen (Acetaminophen 325 Mg Tablet) 650 mg PO Q6H PRN PRN Reason: Pain, Mild (Pain Scale 1-3) Apixaban (Apixaban 5 Mg Tablet) 5 mg PO BID [facility] Last Admin: 10/02/23 20:07 Dose: 5 mg Clonidine HCl (Clonidine Hcl 0.1 Mg Tablet) 0.1 mg PO BID [facility]; Protocol Last Admin: 10/02/23 08:02 Dose: 0.1 mg Docusate Sodium (Docusate Sodium 100 Mg Capsule) 100 mg PO BID [facility] Last Admin: 10/02/23 20:15 Dose: 100 mg Cefazolin Sodium/Dextrose (Ancef) 2 gm in 50 mls @ 100 mls/hr IV Q8H [facility] Last Infusion: 10/02/23 20:45 Dose: Infused Vancomycin HCl 750 mg/ Sodium (Chloride) 265 mls @ 265 mls/hr IV Q12H [facility] Last Infusion: 10/02/23 18:56 Dose: Infused Magnesium Hydroxide (Milk Of Magnesia 30 Ml Oral.Susp) 30 ml PO DAILY PRN PRN Reason: Constipation Melatonin (Melatonin 3 Mg Tablet) 6 mg PO BEDTIME PRN PRN Reason: Insomnia Last Admin: 10/02/23 00:25 Dose: 6 mg Metoprolol Succinate (Metoprolol Succinate Er 25 Mg Tab.Er.24h) 25 mg PO DAILY [facility]; Protocol Last Admin: 10/02/23 08:07 Dose: Not Given Nicotine (Nicotine 21 Mg Patch.Td24) 21 mg TRANSDERMA DAILY [facility] Last Admin: 10/02/23 08:08 Dose: Not Given Ondansetron HCl (Ondansetron Hcl 4 Mg/2 Ml Vial) 4 mg IVPUSH Q8H PRN PRN Reason: Nausea and Vomiting Last Admin: 10/02/23 21:25 Dose: 4 mg Oxycodone HCl (Oxycodone Hcl Immed Release 5 Mg Tablet) 10 mg PO Q6H PRN PRN Reason: severe pain Last Admin: 10/02/23 00:25 Dose: 10 mg Pentoxifylline (Pentoxifylline Er 400 Mg Tablet.Er) 400 mg PO BID [facility] Last Admin: 10/02/23 20:06 Dose: 400 mg Pharmacy Consult (Consult Rx Vancomycin Dosing) 1 each MISCELLANE DAILY PRN PRN Reason: Consult order Sodium Chloride (0.9 % Sodium Chloride Flush 3 Ml Syringe) 3 ml IVFSH QSHIFT [facility] Last Admin: 10/02/23 17:37 Dose: 3 ml Home Medications ?Medication ?Instructions ?Recorded ?Confirmed ?Last Taken ?Type apixaban 5 mg tablet (Eliquis) 5 mg PO BID 04/27/23 09/29/23 2 Weeks Ago History ~04/13/23 docusate sodium 100 mg capsule 100 mg PO BID 04/27/23 09/29/23 2 Weeks Ago History ~04/13/23 amiodarone 200 mg tablet 400 mg PO BID 09/29/23 Unknown History clonidine HCl 0.1 mg tablet 0.1 mg PO BID 09/29/23 09/29/23 Unknown History metoprolol succinate 25 mg 25 mg PO DAILY 09/29/23 09/29/23 Unknown History tablet,extended release 24 hr oxycodone 5 mg tablet 10 mg PO Q6H PRN severe pain 09/29/23 09/29/23 Unknown History pentoxifylline 400 mg 400 mg PO BID 09/29/23 09/29/23 Unknown History tablet,extended release Physical Exam 2 Vital Signs: Vital Signs: Last Vital Signs Temp 97.8 F 10/02/23 19:51 Pulse 137 H 10/02/23 19:51 Resp 19 10/02/23 19:51 BP 126/74 10/02/23 19:51 Pulse Ox 97 10/02/23 19:51 O2 Del Method Room Air 10/02/23 19:51 BMI result Body Mass Index 17.3 Const: General: cooperative HEENT: Head: Yes normal to inspection Face and sinus: Yes normal facial exam Mouth: Normal oral and palatal mucosa present Teeth and gingiva: d entition normal Eyes: General: appearance normal, both eyes and all related structures P upils: Equal, round and reactive pupils present Resp: Effort & Inspection: normal respiratory effort Cardio: Rate: regular rate Rhythm: regular rhythm GI: Palpation (GI): Soft to palpation and nontender : General: Yes no CVA tenderness Back/Spine/Pelvis: Back: no CVA tenderness Skin: General skin exam: no rashes or lesions noted Neuro: General: moves all extremities Cranial nerves: Yes Equal, round and reactive pupils present Extrem: Other: right hip ulcer ,no cellulitis Psych: Other: somewhat confused Results Labs 09/30/23 04:33 10/02/23 07:08 Labs: BMP 10/02/23 07:08 Creatinine 0.84 Microbiology Microbiology Results: Microbiology 09/29/23 10:42 Blood - Venous Blood Culture - Preliminary No growth after 48 hours. 09/29/23 10:39 Blood - Venous Blood Culture - Preliminary No growth after 48 hours. Assessment and Plan (1) Pressure ulcer of right hip, stage 3: Status: Acute There is concern over OM right hip. Check MRI and continue Vancomycin for now and may change to IV Ertapenem only for six weeks if OM seen. (2) Acute metabolic encephalopathy: Status: Acute (3) Chronic wound: Status: Acute
[2023-10-03] VITALS: BP 143/82; PULSE 79; RESP 16; TEMP 37.2; O2SAT 96
[2023-10-03 04:00] VITALS: BP 133/76; PULSE 95; RESP 15; TEMP 36.8; O2SAT 94
[2023-10-03] MEDS: 0.9 % Sodium Chloride Flush 3 ML SYRINGE IVFLUSH ×2 (04:34→09:27)
[2023-10-03] MEDS: ceFAZolin Sodium/Dextrose,Iso 2 GM/50 ML PIGGYBACK IV (04:34)
[2023-10-03] MEDS: vancomycin HCL 750 MG in 0.9 % Sodium Chloride 250 ML 265 MG IV (05:09)
[2023-10-03 06:43] LABS: Creatinine Clr Calc Pharmacy 56.2; Estimated Glomerular Filt Rate > 60
[2023-10-03 08:00] VITALS: BP 173/101; PULSE 82; RESP 18; TEMP 36.9; O2SAT 92
[2023-10-03 08:49] VITALS: BP 142/94
[2023-10-03 09:13] VITALS: BP 138/82
[2023-10-03] MEDS: Docusate Sodium 100 MG CAPSULE PO (09:27)
[2023-10-03] MEDS: Apixaban 5 MG TABLET PO (09:27)
[2023-10-03] MEDS: Pentoxifylline ER 400 MG TABLET.ER PO (09:27)
--- NOTE | 2023-10-03 11:19 | PM.DS ---
DS: Providers Provider Date of Service: 10/03/23 Date of admission: 09/29/23 11:56 Primary care physician: Tony Rhodes MD Consults: 09/29/23 11:52 Consult to Neurology Routine Consulting Provider: [facility] Reason for consultation: encephalopathy, unclear etiology, ?sz/cva 09/29/23 11:59 Consult to Wound Care Routine Reason for consultation: chronic wound r hip 09/29/23 12:09 Addiction Medicine Routine Consulting Provider: [facility] Reason for consultation: substance abuse 09/29/23 14:16 Consult to Cardiology Routine Consulting Provider: [facility] [place] [facility] Reason for consultation: elevated trops, ?amiodorone continuation- has been noncompliant at home 09/29/23 16:57 Consult to Infectious Diseases Routine Consulting Provider: [facility] [place] [facility] Reason for consultation: possible osteomyelitis R hip DS: Diagnosis Discharge Diagnosis (1) Pressure ulcer of right hip, stage 3: Status: Acute (2) Acute metabolic encephalopathy: Status: Acute (3) Chronic wound: Status: Acute DS: Summary Hospital Course Hospital Course: from initial hpi: 68-year-old male with a PMH significant for?paroxysmal AFib not compliant with Eliquis, CAD s/p CABG, ishcemic cardiomyopathy, PAD s/p AKA, hx prior CVAs (last in July of this year), seizure disorder, HTN, HLD, COPD not on home O2, chronic wound of the R hip, and hx of substance abuse presented to the ED after his found him altered in the middle of the night. Denies any witnessed seizure activity, but reports patient was calling out for his aunt and was disoriented. Per ED report was still disoriented, agitated, calling out for people on arrival. However, no sedation or seizure activity noted. No focal neuro deficits on arrival. On my exam, patient remains disoriented to time. On arrival, slightly tachycardic to 102 with temp 99.6. WBC 16.5. Renal function baseline, lytes normal except co2. However, subsequent vbg shows normal ph 7.34, pc02 34, hco3 18. Lactic acid 1.8. Ammonia 25. Initial trop 27.7, repeat pending. UA unremarkable. UTox positive for fentanyl and opiates. Negative for covid, flu, rsv. CXR not indicative of infection. CT head negative for acute intracranial abnormality but shows chronic infarcts of left temporal, left frontal, and left cerebrellar encephalomalacia/old infarcts with chronic white matter disease. He is noted to have a chronic wound of the right hip that has not been evaluated by a medical provider in 3+ months ( has been managing dressings). Given concern for possible infection patient was given zosyn. Also given keppra in ed in case of breakthrough seizure, though unwitnessed. he will be admitted for further management of encephalopathy of unclear etiology. hospital course: Patient was admitted for acute toxic metabolic encephalopathy, multifactorial due to opiate use and right hip infection. Patient returned to baseline. MRI shows chronic old infarcts with encephalomalacia but no acute changes. For stage III pressure ulcer of the right hip with possible cellulitis was seen by infectious disease who recommended CT with contrast which was negative for osteomyelitis recommendations were for 3 weeks of p.o. Augmentin and doxycycline. For elevated troponin seen by Cardiology felt this was unlikely ACS and more likely due to demand ischemia. Paroxysmal atrial fibrillation was continued on metoprolol and Eliquis. For history of CVA, CAD, peripheral vascular disease was continued on Eliquis, statin, pentoxifylline. Patient has mentioned history of epilepsy but does not appear to be on meds he can follow up outpatient. Patient is feeling better will be discharged home. Time Attestation Discharge Coordination Time (in mins): 32 Quality: Safe Use of Opioids Does Pt have an Active Cancer Diagnosis on the Problem List?: No Quality: Stroke Does the patient have a stroke diagnosis?: No Physical Exam Vital Signs: Vital Signs: Last Vital Signs Temp 98.4 F 10/03/23 08:00 Pulse 82 10/03/23 08:00 Resp 18 10/03/23 08:00 BP 138/82 10/03/23 09:13 Pulse Ox 92 10/03/23 08:00 O2 Del Method Room Air 10/03/23 08:00 BMI result Body Mass Index 17.3 Const: General: cooperative HEENT: Head: Yes normal to inspection Face and sinus: Yes normal facial exam Mouth: Normal oral and palatal mucosa present Teeth and gingiva: dentition normal Eyes: General: appearance normal, both eyes and all related structures Pupils: Equal, round and reactive pupils present Resp: Effort & Inspection: normal respiratory effort Cardio: Rate: regular rate Rhythm: regular rhythm GI: Palpation (GI): Soft to palpation and nontender : General: Yes no CVA tenderness Back/Spine/Pelvis: Back: no CVA tenderness Skin: General skin exam: no rashes or lesions noted Neuro: General: moves all extremities Cranial nerves: Yes Equal, round and reactive pupils present Extrem: Other: right hip ulcer ,no cellulitis Psych: Other: somewhat confused DS: Data Data Completed and Pending Completed studies during hospitalization [Text1]: Procedures Detachment at Left Upper Leg, Mid, Open Approach (04/27/23) Insertion of Endotracheal Airway into Trachea, Via Natural or Artificial Opening Endoscopic (01/18/21) Insertion of Infusion Device into Superior Vena Cava, Percutaneous Approach (04/27/23) Introduction of Anesthetic Agent into Peripheral Nerves and Plexi, Percutaneous Approach (04/27/23) Introduction of Other Thrombolytic into Peripheral Vein, Percutaneous Approach (07/25/22) Introduction of Vasopressor into Central Vein, Percutaneous Approach (01/18/21) Introduction of Vasopressor into Peripheral Vein, Percutaneous Approach (07/25/22) Respiratory Ventilation, 24-96 Consecutive Hours (01/18/21) Ultrasonography of Superior Vena Cava, Guidance (04/27/23) Labs on day of discharge: Laboratory Results - last 24 hr 10/02/23 10/03/23 16:22 06:03 Hold Purple Top SEE NOTE Creatinine 0.85 Estim Creat Clear Calc 56.2 Estimated GFR > 60 Random Vancomycin 17.2 Preliminary micro results at discharge 09/29/23 10:42 Blood Culture - Preliminary Blood - Venous No growth after 48 hours. 09/29/23 10:39 Blood Culture - Preliminary Blood - Venous No growth after 48 hours. Discharge Plan Discharge Anticipated Discharge Date/Time: 10/03/23 11:15 Patient Disposition: Home, Self-Care Discharge Diagnosis: ams, hip wound Referrals: Tony Rhodes MD [Primary Care Provider] - 1 Week Discharge Medications: New amoxicillin-pot clavulanate 875-125 mg tablet 1 tab PO Q12H Qty: 42 0RF doxycycline hyclate 100 mg capsule 100 mg PO BID Qty: 42 0RF Continued docusate sodium 100 mg Capsule 100 mg PO BID Eliquis 5 mg Tablet 5 mg PO BID clonidine HCl 0.1 mg Tablet 0.1 mg PO BID pentoxifylline 400 mg Tablet Extended Release 400 mg PO BID Rx Instructions: must administer with a meal/food metoprolol succinate 25 mg Tablet Extended Release 24 Hr 25 mg PO DAILY oxycodone 5 mg tablet 10 mg PO Q6H PRN (Reason: severe pain) Rx Instructions: Partial Fill upon patient request. Discontinued amiodarone 200 mg tablet 400 mg PO BID Discharge Orders: Discharge Order (Routine); Ordered 10/03/23 Ordered By: Fausto March Diet: Advance to usual diet Activity on Discharge: As tolerated Stand Alone Forms: Patient Portal Discharge page Print Language: [place] Care Plan Goals: recovery Health Concerns: ams, hip wound Plan of Treatment: 3 weeks augmentin and doxy, avoid drugs Assessment: see above
--- NOTE | 2023-10-03 11:47 | MHC.CM.PN ---
Second IMM 10/03/23, pt has been medically cleared for DC, he will go home via BLS today, no added services.
[2023-10-08 21:13] LABS: Levetiracetam Keppra <2.0 mcg/mL (6.0-46.0)
== END 2023-10-03 12:44 | disposition home or self-care (01) | DRG 592 ==
LOC: HO.ED 10:33 → HO.EDOVER 12:04 → HO.IMC 09-30 23:17
PROVIDERS: Emergency Medicine; Admitting Provider Physician Assistant; Emergency Provider Emergency Medicine Emergency Medical Services; PCP Internal Medicine; Visit Provider Internal Medicine
DX: L89.213 Pressure ulcer of right hip, stage 3 (principal); G92.8 Other toxic encephalopathy; Z68.1 Body mass index [BMI] 19.9 or less, adult; L03.116 Cellulitis of left lower limb; I25.10 Atherosclerotic heart disease of native coronary artery without angina pectoris; I48.0 Paroxysmal atrial fibrillation; R63.6 Underweight; I25.5 Ischemic cardiomyopathy; G40.909 Epilepsy, unspecified, not intractable, without status epilepticus; I73.9 Peripheral vascular disease, unspecified; Z95.1 Presence of aortocoronary bypass graft; F17.210 Nicotine dependence, cigarettes, uncomplicated; Z71.6 Tobacco abuse counseling; Z89.612 Acquired absence of left leg above knee; Z91.148 Patient's other noncompliance with medication regimen for other reason; Z86.73 Personal history of transient ischemic attack (TIA), and cerebral infarction without residual deficits; Z20.822 Contact with and (suspected) exposure to COVID-19; Z91.199 Patient's noncompliance with other medical treatment and regimen due to unspecified reason; Z79.01 Long term (current) use of anticoagulants; Z79.899 Other long term (current) drug therapy
CPT/HCPCS: 0241U; 36415; 70450; 70551; 71045; 73502; 73701; 80048; 80053; 80177; 80202; 80307; 81001; 82140; 82565; 82803; 83605; 84145; 84484; 85025; 85610; 85652; 86140; 87040; 93005; 93306; 95816; 99285; J0690; J1953; J2405; J2543; J3370; J3371; Q9957; Q9967

== ENCOUNTER → 2023-09-29 11:56 | Outpatient (BNV) | payer MEDICARE, SELFPAY | PROVIDERS: Admitting Provider Physician Assistant; Emergency Provider Emergency Medicine Emergency Medical Services; PCP Internal Medicine; Visit Provider Internal Medicine | DX: G93.41 Metabolic encephalopathy (principal); L89.213 Pressure ulcer of right hip, stage 3 | CPT/HCPCS: 99223; 99232; 99239 ==

== ENCOUNTER → 2023-09-29 11:56 | Outpatient (BNV) | payer MEDICARE, SELFPAY | PROVIDERS: Admitting Provider Physician Assistant; Emergency Provider Emergency Medicine Emergency Medical Services; PCP Internal Medicine; Visit Provider Psychiatry & Neurology Neurology | DX: G93.41 Metabolic encephalopathy (principal) | CPT/HCPCS: 99222 ==

== ENCOUNTER → 2023-09-29 11:56 | Outpatient (BNV) | payer MEDICARE, SELFPAY | PROVIDERS: Admitting Provider Physician Assistant; Emergency Provider Emergency Medicine Emergency Medical Services; PCP Internal Medicine; Visit Provider Internal Medicine | DX: L89.213 Pressure ulcer of right hip, stage 3 (principal); G93.41 Metabolic encephalopathy; T14.8XXA Other injury of unspecified body region, initial encounter | CPT/HCPCS: 99222 ==

== ENCOUNTER → 2023-09-29 11:56 | Outpatient (BNV) | payer MEDICARE, SELFPAY | PROVIDERS: Admitting Provider Physician Assistant; Emergency Provider Emergency Medicine Emergency Medical Services; Visit Provider Internal Medicine Cardiovascular Disease | DX: R79.89 Other specified abnormal findings of blood chemistry (principal); R94.31 Abnormal electrocardiogram [ECG] [EKG] | CPT/HCPCS: 93010; 93306; 99222 ==

== ENCOUNTER 2023-10-06 13:14 | Emergency (ER) | payer MEDICARE, SELFPAY ==
[2023-10-06] VITALS (14 sets, daily range): BP systolic 00–138; BP diastolic 00–103; PULSE 66–154; RESP 18–22; TEMP 34–37.3; O2SAT 92–99; BMI 20.4
--- NOTE | ~2023-10-06 | XR_ITS ---
EXAMINATION: XR CHEST CLINICAL INFORMATION: Shortness of breath COMPARISON: 09/29/2023 TECHNIQUE: Frontal view of the chest was obtained. FINDINGS: An ET tube is present 6 cm above the viraj. Heart size normal. Patient status post median sternotomy. Compared to the prior study, there is increased perivascular haziness with mild interstitial edema. There is mild increased patchy density at the left lung base with some interval obscuration of the left hemidiaphragm. No large pleural effusions are seen. XR/XR chest 1V IMPRESSION: 1. ET tube 6 cm above the viraj. 2. Mild interstitial edema. 3. Patchy density left lung base may represent atelectasis or pneumonia.
--- NOTE | ~2023-10-06 | CT_ITS ---
STUDY PERFORMED: CTA ABDOMEN, PELVIS AND LOWER EXTREMITY RUNOFF WITH CONTRAST HISTORY: Abdominal pain with cold right leg DESCRIPTION: Routine abdominal aorta and lower extremity runoff CTA protocol with contrast was performed. 100 mL of Omnipaque 350 was administered. 3D POSTPROCESSING: Additional 2-D coronal and sagittal reformatted images and axial 3-D maximum intensity projection MIP images are generated on the CT workstation. This CT examination was performed using dose optimization techniques as appropriate, variously including the following: *Automated exposure control *Adjustment of mA and/or kV according to patient size (this includes techniques or standardized protocols for targeted exams where dose is matched to indication/reason for exam; i.e. extremities or head) *Use of iterative reconstruction technique DLP: 311 mGycm. 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 The patient also had an aorto bifemoral bypass graft present as well as a left axillofemoral bypass graft present with a [id number] femoral bypass component. All of these grafts appear occluded and nonopacified on the current exam. RIGHT LOWER EXTREMITY: No opacification of any runoff vessels. LEFT LOWER EXTREMITY: No opacification of any runoff vessels. Patient is status post an [id number] amputation on the left. CELIOMESENTERIC ARTERIES: Ostial disease present in the SMA with a patent celiac. ALLEN is occluded. RENAL ARTERIES: There are single renal arteries seen bilaterally with moderate atherosclerotic changes.. NONVASCULAR: Lung Bases: Marked bronchial thickening is present at both lung bases. The left hemidiaphragm is elevated. There is consolidation present in the left lower lobe. Scattered peripheral patchy densities are present at the right lung base. There is reflux of contrast into the IVC and hepatic veins suggesting elevated right-sided heart pressure. Liver, Gallbladder and Biliary Tree: The liver is normal in size, shape, and attenuation. No focal hepatic lesion or biliary ductal dilatation is present. The gallbladder is unremarkable with no evidence of radiopaque gallstones, gallbladder wall thickening, or obvious pericholecystic inflammatory changes. Pancreas: Unremarkable. Spleen: Lobular in shape but otherwise unremarkable. Adrenal Glands: Unremarkable. Kidneys and Ureters: The kidneys are normal in size, shape, and attenuation. No hydronephrosis, hydroureter, or calculi seen. No perinephric stranding. Bladder: Unremarkable. Gastrointestinal Tract: The small and large bowel are unremarkable. The appendix is unremarkable. Abdominal Wall: No significant hernia is appreciated. Lymph Nodes: No retroperitoneal lymphadenopathy. Pelvic Viscera: The prostate and seminal vesicles are unremarkable. Osseous Structures: Severe degenerative changes are seen in the spine with mild scoliosis. There is cortical irregularity with thickening at the distal left femoral amputation site. Osteomyelitis cannot be entirely excluded. CT/CT angio abd aorta runoff IMPRESSION: 1. 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 2. No opacification of any runoff vessels. 3. Status post [id number] amputation on the left with cortical irregularity and thickening at the distal femoral amputation site. Osteomyelitis cannot be entirely excluded. 4. Other incidental findings as described above including left lower lobe infiltrate, possibly pneumonia. This critical result was discussed with Dr. Aryan Manzano at 5:20 PM on the day of the exam and it was ascertained that the content and urgency of the report was understood at the time of direct communication.
--- NOTE | ~2023-10-06 | XR_ITS ---
EXAMINATION: XR CHEST CLINICAL INFORMATION: Line placement COMPARISON: Earlier same day TECHNIQUE: Supine frontal portable view of the chest was obtained. FINDINGS: Devices overlie the patient. The endotracheal tube tip is approximately 5 cm above viraj. The right-sided vascular catheter tip projects at expected junction of SVC with right atrium. There are sternal wires and mediastinal surgical clips. The central vessels are prominent and indistinct. No new focal pneumonia. Reticular opacities throughout both lungs. No pneumothorax. There are surgical clips and some opaque densities projecting in the left axillary soft tissues. XR/XR chest 1V IMPRESSION: Right-sided vascular catheter tip projects at junction of SVC with right atrium and no pneumothorax demonstrated
--- NOTE | 2023-10-06 14:33 | ECG_ITS ---
Test Reason : SEPSIS Blood Pressure : / mmHG Vent. Rate : 122 BPM Atrial Rate : 278 BPM P-R Int : 000 ms QRS Dur : 108 ms QT Int : 336 ms P-R-T Axes : 000 090 259 degrees QTc Int : 478 ms Atrial flutter with variable A-V block with premature ventricular or aberrantly conducted complexes Rightward axis Minimal voltage criteria for LVH, may be normal variant ( [place] product ) Anteroseptal infarct (cited on or before 25-JUL-2022) Abnormal ECG When compared with ECG of 29-SEP-2023 05:38, Atrial flutter has replaced Sinus rhythm Referred By: Aryan Manzano Electronically Signed By:ABDIEL VILLARREAL
[2023-10-06] MEDS: Morphine Sulfate 4 MG/ML CARTRIDGE IVPUSH ×2 (14:48→14:56)
[2023-10-06] MEDS: 0.9 % Sodium Chloride 1,000 ML 999 ML IVCONT ×2 (14:49→15:10)
[2023-10-06 14:53] LABS: Basophils Absolute Auto 0.1 X10*3/uL (0.0-0.2); Basophils Percent Auto 0.5 % (0-2); Eosinophils Absolute Auto 0.2 X10*3/uL (0.0-0.4); Eosinophils Percent Auto 1.2 % (0-4); Hematocrit 47.9 % (42.0-52.0); Hemoglobin 15.6 g/dl (14.0-18.0); Imm Gran Abs Auto 0.24 X10*3/uL (0.00-0.03); Imm Gran Pct Auto 1.2 % (0.0-0.4); Lymphocytes Percent Auto 34.7 % (20-40); MANUAL DIFF FLAG SCAN; Mean Corpuscular HGB Conc 32.6 g/dl (31.0-36.0); Mean Corpuscular Hemoglobin 29.4 pg (27.0-33.0); Mean Corpuscular Volume 90.2 fL (80.0-98.0); Mean Platelet Volume 11.2 fL (9.4-12.4); Monocytes Absolute Auto 2.2 X10*3/uL (0.1-1.2); Monocytes Percent Auto 11.3 % (2-11); Neutrophils Absolute Auto 9.9 x10*3/uL (2.0-8.3); Neutrophils Percent Auto 51.1 % (45-73); Platelet Count 191 X10*3/uL (160-400); Red Blood Count 5.31 X10*6/uL (4.60-5.80); Red Cell Distribution Width 15.9 % (11.0-16.0); SCAN SMEAR FLAG 1; White Blood Count 19.4 X10*3/uL (4.8-10.8)
[2023-10-06 14:54] LABS: Lymphocytes Absolute Auto 6.7 X10*3/uL (1.2-4.9)
[2023-10-06 15:15] LABS: Alanine Aminotransferase 14 U/L (0-40); Albumin Level 3.9 g/dL (3.5-5.0); Alkaline Phosphatase 87 U/L (39-117); Aspartate Amino Transferase 38 U/L (5-37); Bilirubin Total 0.5 mg/dL (0.0-1.0); Blood Urea Nitrogen 29 mg/dL (9-16); Calcium 9.5 mg/dL (8.4-10.2); Estimated Glomerular Filt Rate 41; Glucose Random 209 mg/dL (60-115); Total Protein 7.9 g/dL (6.5-8.0)
[2023-10-06] MEDS: Ketamine HCl/NS 50 MG/5 ML SYRINGE 240 MG IVPUSH (15:16)
[2023-10-06] MEDS: LORazepam 2 MG/ML VIAL 4 MG IVPUSH (15:29)
[2023-10-06 15:45] LABS: Anion Gap 35 (12-20); Carbon Dioxide 7 mmol/L (22-29); Chloride 100 mmol/L (96-108); Potassium 3.9 mmol/L (3.3-5.1); Sodium 138 mmol/L (135-145)
[2023-10-06 15:49] LABS: Troponin-I High Sensitivity 389.9 ng/L (<3.5-35.0)
[2023-10-06 15:49] LABS: Lactic Acid 18.7 mmol/L (0.5-2.0)
[2023-10-06] MEDS: iohexoL 350 MG/ML 100 ML INFUS..BTL IV (15:49)
--- NOTE | 2023-10-06 16:02 | PC.NURSE ---
Addendum entered by Rand Murillo RN 10/06/23 16:22: Patient moved to ED4, dr. driscoll itubated 7.5 ET tube 23 @ the lip, RT at bedside to assist, brought to CT with RT, dr. driscoll placed triple lumen central line. Patient remains in ED4 on vent, still unable to get blood pressure, dr. Driscoll aware, patient to be started on levophed/ additonal fluids ordered. Original Note: Patient admitted to ER for leg pain, brought into room 1 d/t patient having BM in waiting room/yelling in pain. Upon triaging the patient, this RN was unable to get bp either automatic and manual. Patient rolling back and forth on stretcher, intermittently yelling about pain, diaphoretic w/ cool extremites x 3. Dr. Driscoll at bedside to use doppler, unable to find pulse in leg up to groin area. Patient unable to sit still, writhing in pain, decision made to intubate.
[2023-10-06 16:03] LABS: SLIDE REVIEW VERIFIED
--- NOTE | 2023-10-06 16:40 | MHC.EDTECH ---
PATIENT REPEATED TYPE AND SCREEN AND EKG WAS DELAY BECAUSE PATIENT WAS BEING INTUBATED .
[2023-10-06] MEDS: Norepinephrine Bitartrate/D5W 8 MG/250 ML PLAST..BAG 5.53 MG IV (16:41)
--- NOTE | 2023-10-06 16:41 | MHC.EDTECH ---
PATIENT EKG WAS TAKEN AND WAS READ BY PROVIDER ,REPEATED TYPE AND SCREEN DRAWN AND SENT TO LAB .
[2023-10-06] MEDS: 0.9 % Sodium Chloride 1,000 ML 500 ML IVCONT (16:42)
[2023-10-06 16:46] LABS: ABG Base Excess -15.9 mmol/L; ABG HCO3 11 mmol/L (22-26); ABG pCO2 30 mmHg (32-45); ABG pH 7.16 (7.35-7.45); ABG pO2 112 mmHg (83-108)
[2023-10-06 16:47] LABS: Reflex Lactate? Lactic Acid Added
--- NOTE | 2023-10-06 16:49 | ED_ITS ---
HPI - General Adult General Chief complaint: Extremity Injury, Lower Stated complaint: RT LEG PAIN X 1 HOUR,SUBSTANCE USE PER EMS Time Seen by Provider: 10/06/23 14:18 Source: patient and EMS Mode of arrival: EMS Limitations: no limitations History of Present Illness ED Provider: Dr. Manzano HPI narrative: Patient presents with right leg pain since the morning, he is a known vasculopath with CAD and left leg AKA. He was recently admitted with substance abuse. Related Data Home Medications ?Medication ?Instructions ?Recorded ?Confirmed apixaban 5 mg tablet (Eliquis) 5 mg PO BID 04/27/23 09/29/23 docusate sodium 100 mg capsule 100 mg PO BID 04/27/23 09/29/23 clonidine HCl 0.1 mg tablet 0.1 mg PO BID 09/29/23 09/29/23 metoprolol succinate 25 mg 25 mg PO DAILY 09/29/23 09/29/23 tablet,extended release 24 hr oxycodone 5 mg tablet 10 mg PO Q6H PRN severe pain 09/29/23 09/29/23 pentoxifylline 400 mg 400 mg PO BID 09/29/23 09/29/23 tablet,extended release Previous Rx's ?Medication ?Instructions ?Recorded amoxicillin 875 mg-potassium 1 tab PO Q12H #42 tabs 10/03/23 clavulanate 125 mg tablet doxycycline hyclate 100 mg capsule 100 mg PO BID #42 caps 10/03/23 Allergies Allergy/AdvReac Type Severity Reaction Status Date / Time No Known Allergies Allergy Verified 10/06/23 14:14 Review of Systems 2 Review of Systems: Yes all other systems are reviewed and are negative Neurologic: Denies Sensory deficit (Neuro) PMFSH Past Medical History Medical History Ischemic cardiomyopathy Cerebellar infarction Seizure Above knee amputation of left lower extremity Fall Leukocytosis MDD (major depressive disorder), recurrent episode, moderate Opioid use disorder, moderate, dependence Pneumonitis Pneumonia Atherosclerotic cardiovascular disease History of hemorrhagic cerebrovascular accident (CVA) without residual deficits Subclavian arterial stenosis Atrial flutter Cardiomyopathy Opioid use disorder Seizure disorder Acute combined systolic and diastolic congestive heart failure COPD (chronic obstructive pulmonary disease) Cocaine abuse with intoxication Toxic encephalopathy 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 Hyperlipemia CHF (congestive heart failure) Seizure-like activity Cardiac arrest Atrial flutter Paroxysmal atrial fibrillation PVD (peripheral vascular disease) CAD (coronary artery disease) Heroin use Surgical History Hx of AKA (above knee amputation) S/P CABG x 2 Social History Social History Household Members: Spouse Household Members Other:: Puma Boateng Housing: House Do you presently have visiting nurse or other home services: No Unable to assess alcohol history related to: Unable to respond Alcohol intake: current Alcohol intake frequency: does not drink Comment: Pt refused bed alarm, [employer] camera outside patient's room for safety. Patient Tobacco Use Status: Current everyday Tobacco user Tobacco use type: Cigarette Cigarette Packs Per Day: 1.5 Cigarettes Per Day: 15 Years Smoked: 51 Smoked in Last 30 Days: Yes e-Cigarette/Vaping Use: Currently Using Second Hand Smoke Exposure: Yes Use of substances other than those prescribed or required for medical reasons: Unable to respond Substance Use Type: Crack/Cocaine, Marijuana, Opiates and Painkillers Advance Directives: Yes Advance Directives on File: Yes Advance Directives Date on File: 01/12/21 Do you have a plan to hurt others: No Plan service: No Current occupational status: retired Physical Exam ED Vital Signs: Vital Signs - 24 hr 10/06/23 14:12 10/06/23 16:05 10/06/23 16:41 Temperature 99.1 F Pulse Rate 144 H 145 H Respiratory Rate 22 H Blood Pressure 00/00 L Pulse Oximetry Oxygen Delivery Method Fraction of Inspired Oxygen 50 10/06/23 17:00 10/06/23 17:02 10/06/23 17:10 Temperature 94.5 F L Pulse Rate 154 H 153 H 136 H Respiratory Rate 18 Blood Pressure 138/103 H 138/103 H 116/84 Pulse Oximetry 92 Oxygen Delivery Method Mechanical Ventilation Fraction of Inspired Oxygen 10/06/23 17:23 Temperature Pulse Rate Respiratory Rate 18 Blood Pressure Pulse Oximetry Oxygen Delivery Method Fraction of Inspired Oxygen BMI result Body Mass Index 20.4 Const Other: chronically ill, cachectic, writhting in bed complaining of leg pain, unkept Orientation/consciousness: oriented to person and patient oriented x3 Limitations: no limitations HENMT Head: Yes normal to inspection Ears: external ears normal General nose exam: Normal external nose present Mouth: Normal oral and palatal mucosa present and oropharynx normal Throat: Yes posterior oropharynx normal Eyes General: appearance normal, both eyes and all related structures Neck Neck: Yes normal visual inspection Chest Chest palpation & inspection: normal inspection of the chest Resp Auscultation: clear to auscultation bilaterally Cardio Jugular venous distension: no JVD Rate: regular rate Rhythm: regular rhythm Heart sounds: S1 normal heart sound present and S2 normal heart sound present GI Inspection: Yes normal to inspection Palpation (GI): Soft to palpation, nontender and No hepatosplenomegaly present Auscultation: normal bowel sounds General: Yes no CVA tenderness Back/Spine/Pelvis Back: no CVA tenderness Skin Other: sacral decubedii, hip decubedii Neuro General: oriented to person and patient oriented x3 Cranial nerves: Yes CN's II-XII intact bilaterally Motor exam (neuro): 5/5 motor strength present throughout Sensory Exam: No Sensory deficit (Neuro) Extrem Other: left AKA, right leg cold no doppler pulse obtainable Psych Appearance: grossly normal Course Reevaluation(s) Reevaluation #1: shortly after the assessment of his leg the patient started to complain about back pain Time: 16:51 Reevaluation #2: Patient intubated with etomidate and versed under visualization with glide scope, 7.5 ETT used, 23 at the lips, good capnometery. Proper hand hygiene, cap, gown and sterile gloves place worn. Patient prepped and draped in sterile fashion, 1% lidocaine used for anesthesia, sterile US cover used, central line placed using US. Central line 16cm at the neck. Sutured in place. Time: 16:53 Reevaluation #3: I spent 110 minutes of critical care, with interventions, assessments, speaking to patient, consultants, and family. Accepted by Dr. Josue vascular surgeon [facility] Time: 17:23 Medications Administered Generic Name Dose Route Start Last Admin Trade Name Freq PRN Reason Stop Dose Admin Vancomycin HCl 1,500 mg/ 500 mls @ 333.333 mls/hr 10/06/23 16:00 10/06/23 17:03 Sodium Chloride IV 10/06/23 17:29 333.33 mls/hr ONCE ONE Administration Sodium Chloride 1,000 mls @ 500 mls/hr 10/06/23 16:30 10/06/23 16:42 Ns IVCONT 10/06/23 18:29 500 mls/hr .Q2H CARLIE Administration Norepinephrine Bitartrate 8 mg in 250 mls @ 0 mls/hr 10/06/23 16:30 10/06/23 17:10 Levophed IV 0.05 mcg/kg/min .Q0M CARLIE 5.53 mls/hr Titration Protocol Per Protocol Discontinued Medications Generic Name Dose Route Start Last Admin Trade Name Freq PRN Reason Stop Dose Admin Sodium Chloride 1,000 mls @ 999 mls/hr 10/06/23 15:00 10/06/23 16:42 Ns IVCONT 10/06/23 17:00 Infused .Q1H1M CARLIE Infusion Piperacillin Sod/Tazobactam 50 mls @ 100 mls/hr 10/06/23 15:31 10/06/23 17:02 Sod 3.375 gm/ Sodium Chloride IV 10/06/23 16:00 100 mls/hr ONCE ONE Administration Iohexol 100 ml 10/06/23 15:49 10/06/23 15:49 Iohexol 350 Mg/Ml 100 Ml Infus..Btl IV 10/06/23 15:50 85 ml ONCE ONE Administration Ketamine HCl 240 mg 10/06/23 15:07 10/06/23 15:16 Ketamine Hcl/Ns 50 Mg/5 Ml Syringe IVPUSH 10/06/23 15:08 240 mg ONCE ONE Administration Lorazepam 4 mg 10/06/23 15:27 10/06/23 15:29 Lorazepam 2 Mg/Ml Vial IVPUSH 10/06/23 15:28 4 mg ONCE ONE Administration Morphine Sulfate 4 mg 10/06/23 14:32 10/06/23 14:48 Morphine Sulfate 4 Mg/Ml Cartridge IVPUSH 10/06/23 14:33 4 mg ONCE ONE Administration Protocol Morphine Sulfate 4 mg 10/06/23 14:53 10/06/23 14:56 Morphine Sulfate 4 Mg/Ml Cartridge IVPUSH 10/06/23 14:54 4 mg ONCE ONE Administration Protocol Vecuronium Thompson 10 mg 10/06/23 15:05 10/06/23 15:26 Vecuronium Thompson 10 Mg Vial IVPUSH 10/06/23 15:06 10 mg NOW STA Administration Medical Decision Making Differential Diagnosis Differential Diagnoses: The differential diagnosis associated with the presentation includes (vascular occlusion, ischemic bowel, aortic dissection, leg ischemia, sepsis) Admission/Observation Consideration of admission/observation: Escalation of care including admission/observation considered (upon arrival patient considered for admission) Consult Healthcare Provider Management of the patient was discussed with: [employer] (Dr. Josue vascular surgery [facility]) Lab Data MDM Lab Attestation statement: I reviewed the patient's lab results. 10/06/23 14:42 10/06/23 14:42 Labs: Lab Results 10/06/23 10/06/23 10/06/23 Range/Units 14:41 14:42 15:02 WBC 19.4 H (4.8-10.8) X10*3/uL RBC 5.31 (4.60-5.80) X10*6/uL Hgb 15.6 (14.0-18.0) g/dl Hct 47.9 D (42.0-52.0) % MCV 90.2 (80.0-98.0) fL MCH 29.4 (27.0-33.0) pg MCHC 32.6 (31.0-36.0) g/dl RDW 15.9 (11.0-16.0) % Plt Count 191 D (160-400) X10*3/uL MPV 11.2 (9.4-12.4) fL Immature Gran % (Auto) 1.2 H (0.0-0.4) % Neut % (Auto) 51.1 (45-73) % Lymph % (Auto) 34.7 (20-40) % [place] % (Auto) 11.3 H (2-11) % Eos % (Auto) 1.2 (0-4) % Baso % (Auto) 0.5 (0-2) % Lymph # (Auto) 6.7 H (1.2-4.9) X10*3/uL [place] # (Auto) 2.2 H (0.1-1.2) X10*3/uL Eos # (Auto) 0.2 (0.0-0.4) X10*3/uL Baso # (Auto) 0.1 (0.0-0.2) X10*3/uL Abs Immat Gran (auto) 0.24 H (0.00-0.03) X10*3/uL Absolute Neuts (auto) 9.9 H (2.0-8.3) x10*3/uL Absolute Nucleated RBC 0.000 (0.0-0.012) X10*3/uL Nucleated RBC % (auto) 0.0 (0.0-0.2) /100WBC Smear Tech's Comments VERIFIED Hold Purple Top SEE NOTE Hold Blue Top SEE NOTE O2 Saturation % ABG pH at Pt Temp (7.35-7.45) ABG pCO2 at Pt Temp (32-45) mmHg ABG pO2 at Pt Temp (83-108) mmHg ABG HCO3 (22-26) mmol/L ABG Base Excess (Actual) mmol/L Sodium 138 (135-145) mmol/L Potassium 3.9 (3.3-5.1) mmol/L Chloride 100 (96-108) mmol/L Carbon Dioxide 7 L* D (22-29) mmol/L Anion Gap 35 H (12-20) BUN 29 H (9-16) mg/dL Creatinine 1.66 H (0.5-1.4) mg/dL Estim Creat Clear Calc 35.0 Estimated GFR 41 Random Glucose 209 H (60-115) mg/dL Lactic Acid 18.7 H* (0.5-2.0) mmol/L Calcium 9.5 (8.4-10.2) mg/dL Total Bilirubin 0.5 (0.0-1.0) mg/dL AST 38 H (5-37) U/L ALT 14 (0-40) U/L Alkaline Phosphatase 87 (39-117) U/L Troponin I High Sens 389.9 H* (<3.5-35.0) ng/L Total Protein 7.9 (6.5-8.0) g/dL Albumin 3.9 (3.5-5.0) g/dL Blood Type Antibody Screen 10/06/23 10/06/23 Range/Units 16:01 16:36 WBC (4.8-10.8) X10*3/uL RBC (4.60-5.80) X10*6/uL Hgb (14.0-18.0) g/dl Hct (42.0-52.0) % MCV (80.0-98.0) fL MCH (27.0-33.0) pg MCHC (31.0-36.0) g/dl RDW (11.0-16.0) % Plt Count (160-400) X10*3/uL MPV (9.4-12.4) fL Immature Gran % (Auto) (0.0-0.4) % Neut % (Auto) (45-73) % Lymph % (Auto) (20-40) % [place] % (Auto) (2-11) % Eos % (Auto) (0-4) % Baso % (Auto) (0-2) % Lymph # (Auto) (1.2-4.9) X10*3/uL [place] # (Auto) (0.1-1.2) X10*3/uL Eos # (Auto) (0.0-0.4) X10*3/uL Baso # (Auto) (0.0-0.2) X10*3/uL Abs Immat Gran (auto) (0.00-0.03) X10*3/uL Absolute Neuts (auto) (2.0-8.3) x10*3/uL Absolute Nucleated RBC (0.0-0.012) X10*3/uL Nucleated RBC % (auto) (0.0-0.2) /100WBC Smear Tech's Comments Hold Purple Top Hold Blue Top O2 Saturation 97.0 % ABG pH at Pt Temp 7.16 L* (7.35-7.45) ABG pCO2 at Pt Temp 30 L (32-45) mmHg ABG pO2 at Pt Temp 112 H (83-108) mmHg ABG HCO3 11 L (22-26) mmol/L ABG Base Excess (Actual) -15.9 mmol/L Sodium (135-145) mmol/L Potassium (3.3-5.1) mmol/L Chloride (96-108) mmol/L Carbon Dioxide (22-29) mmol/L Anion Gap (12-20) BUN (9-16) mg/dL Creatinine (0.5-1.4) mg/dL Estim Creat Clear Calc Estimated GFR Random Glucose (60-115) mg/dL Lactic Acid (0.5-2.0) mmol/L Calcium (8.4-10.2) mg/dL Total Bilirubin (0.0-1.0) mg/dL AST (5-37) U/L ALT (0-40) U/L Alkaline Phosphatase (39-117) U/L Troponin I High Sens (<3.5-35.0) ng/L Total Protein (6.5-8.0) g/dL Albumin (3.5-5.0) g/dL Blood Type A Negative Antibody Screen NEGATIVE Independent Interpretation I performed an independent interpretation of an: EKG (atrial fibrillation atrial flutter rate 120, no st or twave changes), Plain X-Ray (ETT and central line in good position) and CT Scan (aortic occluded below renal arteries) Radiology Impression Discussion of test interpretation with radiology: I discussed test interpretation with the radiologist (radiology called me and confirmed by reading) Discharge Plan Discharge Clinical Impression: Aortic occlusion, Ischemic leg, Acute ischemia of intestine due to obstruction of intestinal vasculature Patient Disposition: er [facility] Transfer Details: vascular surgery needed Prescriptions: No Action docusate sodium 100 mg Capsule 100 mg PO BID Eliquis 5 mg Tablet 5 mg PO BID clonidine HCl 0.1 mg Tablet 0.1 mg PO BID pentoxifylline 400 mg Tablet Extended Release 400 mg PO BID Rx Instructions: must administer with a meal/food metoprolol succinate 25 mg Tablet Extended Release 24 Hr 25 mg PO DAILY oxycodone 5 mg tablet 10 mg PO Q6H PRN (Reason: severe pain) Rx Instructions: Partial Fill upon patient request. amoxicillin-pot clavulanate 875-125 mg tablet 1 tab PO Q12H Qty: 42 0RF doxycycline hyclate 100 mg capsule 100 mg PO BID Qty: 42 0RF Print Language: Azerbaijani
--- NOTE | 2023-10-06 16:59 | PC.NURSE ---
[place] cath with temp sensing probe placed without complication, patient draining clear yellow urine. Patient's core temp 94.5, teresa hugger blanket applied.
[2023-10-06] MEDS: Piperacillin Sodium/Tazobactam 3.375 GM in 0.9 % Sodium Chloride 50 ML IV (17:02)
[2023-10-06] MEDS: vancomycin HCL 1,500 MG in 0.9 % Sodium Chloride 500 ML 333.33 MG IV (17:03)
--- NOTE | 2023-10-06 17:04 | MHC.EDTECH ---
PER RN DESIREE PATIENT WAS PUT ON BEAR HUGGER DUE TO LOW TEMP OF 94.5 CORE
--- NOTE | 2023-10-06 17:26 | PC.NURSE ---
Per provider order levophed to be continued even with MAP/HR out of nursing parameters to maintain blood pressure. Patient remains on starting dose.
[2023-10-06] MEDS: propofoL 1,000 MG/100 ML VIAL 10.61 MG IVCONT (17:40)
[2023-10-06 17:41] LABS: ~Lactic Acid-LAB USE ONLY 2.7 mmol/L (0.5-2.0)
--- NOTE | 2023-10-06 18:13 | PC.NURSE ---
Rn to Rn report given to Nguyen at [facility] ED, all questions answered, EMS at bedside waiting their protocol 20 minutes to assess vent stability before taking patient for transport.
--- NOTE | 2023-10-06 18:52 | PC.NURSE ---
PT HR DOWN TO 40S, HYPOTENSIVE 70S/50S AFTER LOADING ONTO AMBULANCE BAY. THIS RN CALLED TO ASSESS AMBULANEC, INCREASED LEVOPHED GTT. INCREASED PER PROTOCOL, NO EFFECT. ROLANDO DILL UPDATED, REECIVED ORDERS TO INCREASE LEVOPHED GTT TO 0.24MCG/KG
[2023-10-06 19:08] LABS: Reflex Lactate? 2 Y
[2023-10-06 21:52] LABS: ABG Refer to POC result
== END 2023-10-06 18:31 | disposition short-term general hospital (02) ==
PROVIDERS: Emergency Provider Emergency Medicine
DX: I25.810 Atherosclerosis of coronary artery bypass graft(s) without angina pectoris (principal); I25.82 Chronic total occlusion of coronary artery; K55.059 Acute (reversible) ischemia of intestine, part and extent unspecified; I70.221 Atherosclerosis of native arteries of extremities with rest pain, right leg; I48.0 Paroxysmal atrial fibrillation; F11.20 Opioid dependence, uncomplicated; J44.9 Chronic obstructive pulmonary disease, unspecified; Z86.73 Personal history of transient ischemic attack (TIA), and cerebral infarction without residual deficits; Z89.612 Acquired absence of left leg above knee
CPT/HCPCS: 31500; 36415; 36556; 71045; 75635; 80053; 82803; 83605; 84484; 85025; 86850; 86900; 86901; 87040; 93005; 94002; 96361; 96365; 96366; 96367; 96375; 96376; 99285; J2060; J2270; J2543; J2704; J3371; Q9967

== ENCOUNTER → 2023-10-06 14:33 | Outpatient (BNV) | payer MEDICARE, SELFPAY | PROVIDERS: Emergency Provider Emergency Medicine; Visit Provider Internal Medicine | DX: I48.92 Unspecified atrial flutter (principal); I44.30 Unspecified atrioventricular block; R94.31 Abnormal electrocardiogram [ECG] [EKG] | CPT/HCPCS: 93010 ==